=== PATIENT | female | born 1985 | race Caucasian/White ===

== ENCOUNTER 2020-04-28 15:37 | Outpatient (REF) | payer MEDICAID, SELFPAY ==
--- NOTE | 2020-04-28 16:52 | XR_ITS ---
EXAMINATION: XR HAND, LEFT XR HAND, RIGHT CLINICAL INFORMATION: Hand pain COMPARISON: 11/07/2018 TECHNIQUE: 3 views of each hand FINDINGS: Left hand: No fracture or dislocation. Alignment is anatomic. Joint spaces are maintained. The soft tissues are unremarkable. Right hand: No fracture or dislocation. Alignment is anatomic. Joint spaces are maintained. The soft tissues are unremarkable. XR/XR hand LT min 3V IMPRESSION: Normal appearance of both hands.
--- NOTE | 2020-04-28 16:52 | XR_ITS ---
EXAMINATION: XR HAND, LEFT XR HAND, RIGHT CLINICAL INFORMATION: Hand pain COMPARISON: 11/07/2018 TECHNIQUE: 3 views of each hand FINDINGS: Left hand: No fracture or dislocation. Alignment is anatomic. Joint spaces are maintained. The soft tissues are unremarkable. Right hand: No fracture or dislocation. Alignment is anatomic. Joint spaces are maintained. The soft tissues are unremarkable. XR/XR hand RT min 3V IMPRESSION: Normal appearance of both hands.
[2020-04-28 18:10] LABS: Glucose Urine UA NEG (NEG); Leukocyte Esterase Urine NEG (NEG); Nitrite Urine NEG (NEG); PH 5.5 (5.0-8.0); Specific Gravity - Urine >= 1.030 (1.005-1.025); Urine Blood TRACE (NEG); Urine Ketones NEG (NEG); Urine Protein NEG (NEG-TRACE)
[2020-04-28 18:16] LABS: Appearance Urine CLEAR; Color Urine YELLOW
[2020-04-28 18:25] LABS: Bacteria Urine 1+ /LPF; RBC Urine 0-2 /HPF (0); Squamous Epithelial Cell Urine 1+ /LPF; WBC Urine 0 /HPF (0-4)
[2020-04-28 18:37] LABS: C Reactive Protein 0.06 mg/dL (< or = 0.50)
[2020-04-28 18:52] LABS: Erythrocyte Sedimentation Rate 16 MM/HR (0-20)
[2020-05-02 19:09] LABS: Complement C3 154 mg/dL (83-193)
[2020-05-02 19:11] LABS: Anti DNA DS Antibody 1 IU/mL; SM/Ribonucleoprotein Ab <1.0 NEG AI (<1.0 NEG); Smith Protein <1.0 NEG AI (<1.0 NEG)
== END 2020-04-28 15:38 | disposition home or self-care (01) ==
LOC: HO.LAB 15:37
PROVIDERS: PCP Student in an Organized Health Care Education/Training Program; Referring Provider Student in an Organized Health Care Education/Training Program; Visit Provider Student in an Organized Health Care Education/Training Program
DX: M79.641 Pain in right hand (principal); M79.642 Pain in left hand; R76.8 Other specified abnormal immunological findings in serum
CPT/HCPCS: 36415; 73130; 81001; 85652; 86140; 86160; 86225; 86235; 99212

== ENCOUNTER → 2020-05-04 15:23 | Outpatient (BNVA) | payer MEDICAID, SELFPAY | PROVIDERS: PCP Student in an Organized Health Care Education/Training Program; Referring Provider Student in an Organized Health Care Education/Training Program; Visit Provider Nurse Practitioner | DX: Z76.89 Persons encountering health services in other specified circumstances (principal) ==

== ENCOUNTER → 2020-06-03 14:05 | Outpatient (BNVA) | payer MEDICAID, SELFPAY | PROVIDERS: PCP Student in an Organized Health Care Education/Training Program; Referring Provider Student in an Organized Health Care Education/Training Program; Visit Provider Student in an Organized Health Care Education/Training Program | DX: M79.641 Pain in right hand (principal); M79.642 Pain in left hand; R76.8 Other specified abnormal immunological findings in serum | CPT/HCPCS: 99212 ==

== ENCOUNTER → 2020-06-08 14:28 | Outpatient (BNVA) | payer MEDICAID, SELFPAY | PROVIDERS: PCP Student in an Organized Health Care Education/Training Program; Visit Provider Nurse Practitioner Family | DX: G58.8 Other specified mononeuropathies (principal) | CPT/HCPCS: 99212 ==

== ENCOUNTER 2020-06-15 14:20 | Outpatient (REF) | payer MEDICAID, SELFPAY | END 2020-06-15 14:21 | disposition home or self-care (01) | LOC: HO.LAB 14:20 | PROVIDERS: Visit Provider Internal Medicine | DX: Z20.828 Contact with and (suspected) exposure to other viral communicable diseases (principal) | CPT/HCPCS: C9803; U0003 ==

== ENCOUNTER → 2020-07-15 16:00 | Outpatient (BNVA) | payer MEDICAID, SELFPAY | PROVIDERS: PCP Student in an Organized Health Care Education/Training Program; Visit Provider Nurse Practitioner Family | DX: M79.18 Myalgia, other site (principal); G58.8 Other specified mononeuropathies | CPT/HCPCS: 99212 ==

== ENCOUNTER → 2020-07-20 08:04 | Outpatient (BNVA) | payer MEDICAID, SELFPAY | PROVIDERS: PCP Student in an Organized Health Care Education/Training Program; Visit Provider Nurse Practitioner Family | DX: M79.18 Myalgia, other site (principal); G58.8 Other specified mononeuropathies | CPT/HCPCS: 20552; 99212; J3300 ==

== ENCOUNTER → 2020-08-09 14:28 | Outpatient (BNVA) | payer MEDICAID, SELFPAY | PROVIDERS: PCP Student in an Organized Health Care Education/Training Program; Visit Provider Advanced Practice Midwife ==

== ENCOUNTER 2020-08-29 14:50 | Outpatient (REF) | payer MEDICAID, SELFPAY ==
[2020-08-30 09:00] LABS: CT PCR NOT DETECTED (Not Detect.); NG PCR NOT DETECTED (Not Detect.)
[2020-08-30 09:05] LABS: BV Int Neg Control Negative (Negative); BV Int Pos Control Positive (Positive)
== END 2020-08-29 14:51 | disposition home or self-care (01) ==
LOC: HO.LAB 14:50
PROVIDERS: PCP Student in an Organized Health Care Education/Training Program; Visit Provider Advanced Practice Midwife
DX: N94.10 Unspecified dyspareunia (principal); N89.8 Other specified noninflammatory disorders of vagina; N92.0 Excessive and frequent menstruation with regular cycle; R30.0 Dysuria
CPT/HCPCS: 81025; 87480; 87491; 87510; 87591; 87660; 99212

== ENCOUNTER → 2020-09-01 14:27 | Outpatient (BNVA) | payer MEDICAID, SELFPAY | PROVIDERS: PCP Student in an Organized Health Care Education/Training Program; Visit Provider Nurse Practitioner ==

== ENCOUNTER → 2020-09-19 14:29 | Outpatient (BNVA) | payer MEDICAID, SELFPAY | PROVIDERS: PCP Student in an Organized Health Care Education/Training Program; Visit Provider Nurse Practitioner Family | DX: M79.18 Myalgia, other site (principal); G58.8 Other specified mononeuropathies | CPT/HCPCS: 99212 ==

== ENCOUNTER → 2020-10-13 13:24 | Outpatient (BNVA) | payer MEDICAID, SELFPAY | PROVIDERS: PCP Student in an Organized Health Care Education/Training Program; Visit Provider Nurse Practitioner ==

== ENCOUNTER 2020-11-09 14:42 | Outpatient (REF) | payer MEDICAID, SELFPAY ==
[2020-11-09 16:25] LABS: Hematocrit 36.9 % (37-47); Mean Corpuscular HGB Conc 29.8 g/dl (31.0-35.0); Mean Corpuscular Hemoglobin 24.5 pg (27.0-33.0); Mean Corpuscular Volume 82.2 fL (80-98); Platelet Count 301 X10*3/uL (160-400); Red Blood Count 4.49 X10*6/uL (4.20-5.50); Red Cell Distribution Width 14.5 % (11.0-16.0); White Blood Count 13.4 X10*3/uL (4.8-10.8)
[2020-11-09 17:07] LABS: HCG Quantitative < 2 mIU/mL; TSH reflex Free T4 0.82 uIU/mL (0.32-4.0)
[2020-11-10 08:59] LABS: CT PCR NOT DETECTED (Not Detect.); NG PCR NOT DETECTED (Not Detect.)
== END 2020-11-09 14:43 | disposition home or self-care (01) ==
LOC: HO.LAB 14:42
PROVIDERS: PCP Student in an Organized Health Care Education/Training Program; Visit Provider Obstetrics & Gynecology
DX: Z01.419 Encounter for gynecological examination (general) (routine) without abnormal findings (principal); Z11.3 Encounter for screening for infections with a predominantly sexual mode of transmission; Z20.2 Contact with and (suspected) exposure to infections with a predominantly sexual mode of transmission; N76.0 Acute vaginitis; N92.1 Excessive and frequent menstruation with irregular cycle; N63.0 Unspecified lump in unspecified breast
CPT/HCPCS: 84443; 84702; 85027; 87491; 87591

== ENCOUNTER → 2020-11-17 08:44 | Outpatient (BNVA) | payer MEDICAID, SELFPAY | PROVIDERS: PCP Student in an Organized Health Care Education/Training Program; Visit Provider Nurse Practitioner ==

== ENCOUNTER 2020-11-21 15:32 | Outpatient (REF) | payer MEDICAID, SELFPAY ==
--- NOTE | ~2020-11-21 | US_ITS ---
EXAMINATION: US PELVIS ULTRASOUND CLINICAL INFORMATION: Abnormal bleeding. Age 35. LMP 10/23/2020. COMPARISON: Pelvic ultrasound 11/23/2019, CT abdomen and pelvis 05/29/2019. TECHNIQUE: Ultrasound of the pelvis is performed using both transabdominal and transvaginal transducers along with Doppler. Transvaginal imaging is performed due to inadequate visualization transabdominally. FINDINGS: Uterus: The uterus is retroverted and measures 7.0 x 4.8 x 5.1 cm. Volume 91 mL. The double wall endometrial thickness is 7 mm. The uterus is smooth in contour. The myometrial echogenicity appears uniform. There is no visible fibroid. Adnexa: Both ovaries are visualized. There is normal color flow to the adnexa. There is no ovarian torsion. There is no pelvic ascites or fluid collection. Right ovary measures 3.9 x 1.6 x 1.9 cm. 6.2 mL. Incidental dominant follicle present within the ovary measuring only 1.0 cm. Left ovary measures 2.1 x 1.8 x 2.1 cm. 4.1 mL. US/US pelvic and transvaginal IMPRESSION: 1. Uterus: Normal in size. Retroverted. Endometrial double wall thickness 7 mm. 2. Adnexa: Normal. No adnexal mass or ascites.
== END 2020-11-21 15:33 | disposition home or self-care (01) ==
LOC: HO.US 15:32
PROVIDERS: Visit Provider Obstetrics & Gynecology
DX: N93.9 Abnormal uterine and vaginal bleeding, unspecified (principal)
CPT/HCPCS: 76830; 76856

== ENCOUNTER 2020-11-22 13:08 | Outpatient (REF) | payer MEDICAID, SELFPAY ==
[2020-11-23 09:12] LABS: BV Int Neg Control Negative (Negative); BV Int Pos Control Positive (Positive)
== END 2020-11-22 13:09 | disposition home or self-care (01) ==
LOC: HO.LAB 13:08
PROVIDERS: PCP Student in an Organized Health Care Education/Training Program; Visit Provider Advanced Practice Midwife
DX: N89.8 Other specified noninflammatory disorders of vagina (principal); N93.9 Abnormal uterine and vaginal bleeding, unspecified
CPT/HCPCS: 87480; 87510; 87660

== ENCOUNTER 2020-11-23 13:21 | Outpatient (REF) | payer MEDICAID, SELFPAY ==
--- NOTE | ~2020-11-23 | MM_ITS ---
EXAMINATION: MM DIAGNOSTIC DIGITAL BREAST TOMOSYNTHESIS, BILATERAL US DIAGNOSTIC ULTRASOUND BREAST, LEFT CLINICAL INFORMATION: 35-year-old with focal palpable nodularity at routine clinical exam anterior 3:00 left breast. Prior history bilateral benign breast biopsies 2013 and 2011 (fibroadenoma; 2 on left and 1 on right). The lifetime risk of breast cancer based on the Tyrer-Cuzick Model is 8%. COMPARISON: Mammography: 11/18/2019, 03/19/2014, 11/22/2011; targeted left breast ultrasound 11/18/2019, 03/18/2014; ultrasound-guided left breast biopsy 11/22/2011. TECHNIQUE: Digital breast tomosynthesis is performed in both the craniocaudal and mediolateral oblique views along with computer-aided detection (CAD). Synthesized 2D images are generated from the tomosynthesis. Ultrasound left breast is targeted to the area of palpable concern periareolar outer left breast. Grayscale imaging and color Doppler are performed without and with harmonics. FINDINGS: The breasts are heterogeneously dense, which may obscure small masses (ACR BI-RADS breast composition Category c). Parenchymal pattern is similar to prior study. There is no interval mass or architectural abnormality or abnormal calcifications. No axillary adenopathy. No skin thickening. The right breast is stable nodule with overlying biopsy clip marker and some peripheral coarse calcification anterior upper outer quadrant. Left breast has ribbon shaped biopsy clip marker mid upper outer quadrant. There is a stable lobulated mass 2:30 o'clock periareolar position with overlying biopsy clip marker. The symptom marker overlies this site. Ultrasound left breast targeted to the clinically palpable finding 3:00 periareolar region demonstrates stable macrolobulated solid mass with visible peripheral clip marker from prior biopsy. The overall dimensions are 1.7 x 1.7 x 0.9 cm. This is unchanged from prior ultrasound measurements 1.8 x 1.7 x 0.9 cm (11/18/2019) and without significant from remote ultrasound 03/18/2014 measurements of 1.5 x 1.5 x 0.9 cm. Results are discussed with the patient at time of visit. MM/MM tomosynthesis diagnostic BI IMPRESSION: 1. There are no significant changes from prior study. No mammographic evidence of malignancy. 2. The clinically palpable finding left breast corresponds to previously biopsied and stable fibroadenoma. ASSESSMENT: BI-RADS 2: Benign RECOMMENDATION: Routine annual mammography screening, beginning age 40, or earlier as clinical risk factors warrant. This patient's information was entered into a reminder system with a target due date for their next mammogram.
== END 2020-11-23 13:22 | disposition home or self-care (01) ==
LOC: HO.MAMMO 13:21
PROVIDERS: Visit Provider Obstetrics & Gynecology
DX: N63.25 Unspecified lump in the left breast, overlapping quadrants (principal)
CPT/HCPCS: 76642; 77062; 77066

== ENCOUNTER → 2020-11-25 14:17 | Outpatient (BNVA) | payer MEDICAID, SELFPAY | PROVIDERS: PCP Student in an Organized Health Care Education/Training Program; Visit Provider Urology | DX: Z13.89 Encounter for screening for other disorder (principal) | CPT/HCPCS: 99212 ==

== ENCOUNTER → 2020-11-28 15:18 | Outpatient (BNVA) | payer MEDICAID, SELFPAY | PROVIDERS: PCP Student in an Organized Health Care Education/Training Program; Visit Provider Obstetrics & Gynecology ==

== ENCOUNTER 2020-11-30 07:07 | Outpatient (REF) | payer MEDICAID, SELFPAY ==
[2020-11-30 08:39] LABS: HIV AB/AG Nonreactive (Nonreactive); HIV Num 1 0.06 S/CO (0.00-0.99)
[2020-11-30 13:51] LABS: CT PCR NOT DETECTED (Not Detect.); NG PCR NOT DETECTED (Not Detect.)
== END 2020-11-30 07:08 | disposition home or self-care (01) ==
LOC: HO.LAB 07:07
PROVIDERS: PCP Student in an Organized Health Care Education/Training Program; Visit Provider Obstetrics & Gynecology
DX: Z11.4 Encounter for screening for human immunodeficiency virus [HIV] (principal); B37.3 Candidiasis of vulva and vagina; N92.1 Excessive and frequent menstruation with irregular cycle
CPT/HCPCS: 36415; 87389; 87491; 87591

== ENCOUNTER 2020-12-06 14:56 | Outpatient (REF) | payer MEDICAID, SELFPAY ==
[2020-12-06 16:15] LABS: Glucose Fasting 97 mg/dL (60-99)
[2020-12-06 16:56] LABS: Glucose Urine UA NEG (NEG); Leukocyte Esterase Urine NEG (NEG); Nitrite Urine NEG (NEG); Urine Blood NEG (NEG); Urine Ketones NEG (NEG); Urine Protein NEG (NEG-TRACE)
[2020-12-06 16:57] LABS: Appearance Urine CLEAR; Color Urine YELLOW
[2020-12-06 17:02] LABS: RBC Urine 0 /HPF (0); Squamous Epithelial Cell Urine 1+ /LPF; WBC Urine 0 /HPF (0-4)
== END 2020-12-06 14:57 | disposition home or self-care (01) ==
LOC: HO.LAB 14:56
PROVIDERS: Student in an Organized Health Care Education/Training Program; PCP Student in an Organized Health Care Education/Training Program; Visit Provider Obstetrics & Gynecology
DX: B37.3 Candidiasis of vulva and vagina (principal)
CPT/HCPCS: 36415; 81001; 82947

== ENCOUNTER 2021-01-05 12:33 | Outpatient (REF) | payer MEDICAID, SELFPAY ==
--- NOTE | ~2021-01-05 | US_ITS ---
EXAMINATION: US THYROID CLINICAL INFORMATION: Thyroid nodule. COMPARISON: Ultrasound soft tissue head/neck thyroid dated 01/11/2020 and 02/11/2019. TECHNIQUE: Linear transducer grayscale and color Doppler examination with attention to the region of the thyroid. FINDINGS: SIZE: Measurements of the thyroid lobes and nodules are given in sagittal, anteroposterior and transverse dimensions respectively. Right Thyroid Lobe: 5.1 x 1.3 x 1.8 cm, volume 6.3 mL. Previously 5.3 x 1.4 x 1.8 cm, volume 7.0 mL. Parenchyma: The gland echotexture is homogeneous. Thyroid vascularity is normal. Left Thyroid Lobe: 3.8 x 1.4 x 1.5 cm, volume 3.9 mL. Previously 4.1 x 1.4 x 1.3 cm, volume 3.9 mL. Parenchyma: The gland echotexture is homogeneous. Thyroid vascularity is normal. Isthmus: 0.3 cm in maximum AP dimension. Previously 0.5 cm. Estimated total number of nodules greater than or equal to 1 cm: 0. Drag Seiner nodules are described as follows: 1. Location: Right superior. Size: 0.61 x 0.34 x 0.61 cm, volume 0.07 mL. Previously: 0.52 x 0.42 x 0.49 cm, volume 0.06 mL. Nodule characteristics: Composition: Mixed cystic and solid (1). Echogenicity: Hypoechoic (2). Shape: Not taller than wide (0). Margins: Smooth (0). Echogenic Foci: None (0). ACR TI-RADS total points: 3 ACR TI-RADS category: 3 Significant change in size (>/= 20% in 2 dimensions and minimal increase of 2 mm or 50% or greater increase in volume): No Change in features: No Change in ACR TI-RADS risk category: Not applicable 2. Location: Right inferior. Size: 0.49 x 0.51 x 0.29 cm, volume 0.04 mL. Previously: 0.42 x 0.28 x 0.37 cm, volume 0.02 mL. Nodule characteristics: Composition: Solid/almost completely solid (2). Echogenicity: Hypoechoic (2). Shape: Not taller than wide (0). Margins: Smooth (0). Echogenic Foci: None (0). ACR TI-RADS total points: 4 ACR TI-RADS category: 4 Significant change in size (>/= 20% in 2 dimensions and minimal increase of 2 mm or 50% or greater increase in volume): No Change in features: No Change in ACR TI-RADS risk category: Not applicable 3. Location: Right mid. Size: 0.32 x 0.24 x 0.38 cm, volume 0.2 mL. Previously: Not seen on the previous study. Nodule characteristics: Composition: Solid (2). Echogenicity: Hyperechoic (1). Shape: Not taller than wide (0). Margins: Smooth (0). Echogenic Foci: None (0). ACR TI-RADS total points: 3 ACR TI-RADS category: 3 4. Location: Left superior. Size: 0.42 x 0.45 x 0.5 cm, volume 0.05 mL. Previously: 0.38 x 0.35 x 0.35 cm, volume 0.02 mL. Nodule characteristics: Composition: Solid/almost completely solid (2). Echogenicity: Isoechoic (1). Shape: Taller than wide (3). Margins: Ill-defined (0). Echogenic Foci: None (0). ACR TI-RADS total points: 6 ACR TI-RADS category: 4 Significant change in size (>/= 20% in 2 dimensions and minimal increase of 2 mm or 50% or greater increase in volume): No Change in features: No Change in ACR TI-RADS risk category: Not applicable NODES: No lymphadenopathy is seen in the tissue surrounding the thyroid gland. US/US thyroid IMPRESSION: Thyroid nodules as described above, none larger than a centimeter. No follow up should be needed. ACR TI-RADS RECOMMENDATION REFERENCE: Ultrasound-guided fine-needle aspiration, followup ultrasound, no further follow up. * TR1 (0 point) and TR 2 (2 points): No FNA or follow up * TR3 (3 points): FNA if more than or equal to 2.5 cm in maximum dimension, followup ultrasound in 1, 3 and 5 years if 1.5 to 2.4 cm in maximum dimension. * TR4 (4-6 points): FNA if more than or equal to 1.5 cm in maximum dimension, followup ultrasound in 1, 2, 3 and 5 years if 1 to 1.4 cm in maximum dimension. * TR5 (more than or equal to 7 points): FNA if more than or equal to 1 cm in maximum dimension, followup ultrasound every year for 5 years if 0.5 to 0.9 cm in maximum dimension. * TR3, TR4 or TR5 nodules that are below the size threshold for follow up receive no follow up.
== END 2021-01-05 12:34 | disposition home or self-care (01) ==
LOC: HO.US 12:33
PROVIDERS: PCP Student in an Organized Health Care Education/Training Program; Visit Provider Internal Medicine
DX: E04.1 Nontoxic single thyroid nodule (principal)
CPT/HCPCS: 76536

== ENCOUNTER → 2021-01-13 15:43 | Outpatient (BNVA) | payer MEDICAID, SELFPAY | PROVIDERS: PCP Student in an Organized Health Care Education/Training Program; Referring Provider Student in an Organized Health Care Education/Training Program; Visit Provider Nurse Practitioner | DX: R14.0 Abdominal distension (gaseous) (principal); K62.5 Hemorrhage of anus and rectum; K21.9 Gastro-esophageal reflux disease without esophagitis; K31.84 Gastroparesis | CPT/HCPCS: 99202 ==

== ENCOUNTER 2021-01-16 16:50 | Outpatient (REF) | payer MEDICAID, SELFPAY ==
[2021-01-16 17:38] LABS: Hematocrit 37.6 % (37-47); Hemoglobin 11.2 g/dl (12.0-16.0); Mean Corpuscular HGB Conc 29.8 g/dl (31.0-35.0); Mean Corpuscular Hemoglobin 23.3 pg (27.0-33.0); Mean Corpuscular Volume 78.3 fL (80-98); Mean Platelet Volume 11.7 fL (9.4-12.3); Platelet Count 332 X10*3/uL (160-400); Red Cell Distribution Width 14.6 % (11.0-16.0); White Blood Count 10.6 X10*3/uL (4.8-10.8)
[2021-01-16 17:59] LABS: Alanine Aminotransferase 13 U/L (0-31); Albumin Level 4.6 g/dL (3.5-5.0); Alkaline Phosphatase 64 U/L (39-117); Anion Gap 13 (12-20); Aspartate Amino Transferase 14 U/L (5-31); Bilirubin Total 0.3 mg/dL (0.0-1.0); Blood Urea Nitrogen 7 mg/dL (9-16); Calcium 9.7 mg/dL (8.4-10.2); Carbon Dioxide 23 mmol/L (22-29); Chloride 105 mmol/L (96-108); Estimated Glomerular Filt Rate > 60; Glucose Random 105 mg/dL (60-115); Potassium 4.3 mmol/L (3.3-5.1); Sodium 137 mmol/L (135-145); Total Protein 7.8 g/dL (6.5-8.0)
== END 2021-01-16 16:51 | disposition home or self-care (01) ==
LOC: HO.LAB 16:50
PROVIDERS: PCP Student in an Organized Health Care Education/Training Program; Visit Provider Nurse Practitioner Family
DX: Z12.11 Encounter for screening for malignant neoplasm of colon (principal); K21.9 Gastro-esophageal reflux disease without esophagitis
CPT/HCPCS: 36415; 80053; 85027; 87338

== ENCOUNTER 2021-02-02 11:28 | Outpatient (REF) | payer MEDICAID, SELFPAY ==
[2021-02-02 16:13] LABS: Free T4 (Free Thyroxine) 0.96 ng/dL (0.71-1.85); Thyroid Stimulating Hormone 0.96 uIU/mL (0.32-4.0); Vitamin D 25-OH Total 13.5 ng/mL (>30)
== END 2021-02-02 11:29 | disposition home or self-care (01) ==
LOC: HO.LAB 11:28
PROVIDERS: PCP Student in an Organized Health Care Education/Training Program; Visit Provider Internal Medicine
DX: E66.9 Obesity, unspecified (principal); E55.9 Vitamin D deficiency, unspecified; Z86.39 Personal history of other endocrine, nutritional and metabolic disease; Z79.899 Other long term (current) drug therapy
CPT/HCPCS: 36415; 82306; 84439; 84443

== ENCOUNTER → 2021-02-28 13:20 | Outpatient (BNVA) | payer MEDICAID, SELFPAY | PROVIDERS: Visit Provider Obstetrics & Gynecology ==

== ENCOUNTER → 2021-04-17 16:29 | Outpatient (BNVA) | payer MEDICAID, SELFPAY | PROVIDERS: Visit Provider Nurse Practitioner ==

== ENCOUNTER 2021-05-10 13:40 | Outpatient (REF) | payer MEDICAID, SELFPAY ==
[2021-05-10 13:54] LABS: MANUAL DIFF FLAG NO
[2021-05-10 14:32] LABS: Basophils Percent Auto 0.3 % (0-2); Eosinophils Absolute Auto 0.2 X10*3/uL (0.0-0.4); Eosinophils Percent Auto 1.4 % (0-4); Hematocrit 37.9 % (37.0-47.0); Hemoglobin 11.4 g/dl (12.0-16.0); Imm Gran Abs Auto 0.04 X10*3/uL (0.00-0.03); Imm Gran Pct Auto 0.4 % (0.0-0.4); Lymphocytes Absolute Auto 1.9 X10*3/uL (1.2-4.9); Lymphocytes Percent Auto 18.1 % (20-40); Mean Corpuscular HGB Conc 30.1 g/dl (31.0-35.0); Mean Corpuscular Volume 79.8 fL (80.0-98.0); Mean Platelet Volume 11.9 fL (9.4-12.3); Monocytes Absolute Auto 0.6 X10*3/uL (0.1-1.2); Monocytes Percent Auto 5.7 % (2-11); Neutrophils Absolute Auto 7.7 x10*3/uL (2.0-8.3); Neutrophils Percent Auto 74.1 % (45-73); Platelet Count 329 X10*3/uL (160-400); Red Blood Count 4.75 X10*6/uL (4.20-5.50); Red Cell Distribution Width 16.3 % (11.0-16.0); White Blood Count 10.4 X10*3/uL (4.8-10.8)
[2021-05-10 15:08] LABS: Alanine Aminotransferase 15 U/L (0-31); Albumin Level 4.3 g/dL (3.5-5.0); Alkaline Phosphatase 67 U/L (39-117); Anion Gap 13 (12-20); Aspartate Amino Transferase 14 U/L (5-31); Bilirubin Total < 0.2 mg/dL (0.0-1.0); Blood Urea Nitrogen 6 mg/dL (9-16); Calcium 9.5 mg/dL (8.4-10.2); Carbon Dioxide 25 mmol/L (22-29); Chloride 106 mmol/L (96-108); Estimated Glomerular Filt Rate > 60; Glucose Random 99 mg/dL (60-115); Potassium 4.3 mmol/L (3.3-5.1); Sodium 140 mmol/L (135-145); Total Protein 7.6 g/dL (6.5-8.0)
[2021-05-10 15:28] LABS: Thyroid Stimulating Hormone 0.75 uIU/mL (0.32-4.0)
== END 2021-05-10 13:41 | disposition home or self-care (01) ==
LOC: HO.LAB 13:40
PROVIDERS: PCP Student in an Organized Health Care Education/Training Program; Visit Provider Psychiatry & Neurology Neurology
DX: D64.9 Anemia, unspecified (principal); M79.7 Fibromyalgia
CPT/HCPCS: 36415; 80053; 84443; 85025

== ENCOUNTER 2021-05-15 10:32 | Outpatient (REF) | payer MEDICAID, SELFPAY ==
--- NOTE | ~2021-05-15 | US_ITS ---
EXAMINATION: US RETROPERITONEAL LIMITED (RENAL ONLY) CLINICAL INFORMATION: Calculus of kidney. COMPARISON: Renal ultrasound 11/16/2019 and 10/30/2018. CT abdomen and pelvis 05/29/2019. TECHNIQUE: Real-time imaging of the kidneys. FINDINGS: RIGHT KIDNEY: 11.1 x 4.6 x 5.1 cm (SAG x AP x TRV). The kidney is normal in size, contour, and echogenicity. Renal cortical thickness is normal. No calculi or focal parenchymal lesions. No hydronephrosis. LEFT KIDNEY: 11.0 x 5.2 x 3.9 cm (SAG x AP x TRV). The kidney is normal in size, contour, and echogenicity. Renal cortical thickness is normal. No calculi or focal parenchymal lesions. No hydronephrosis. US/US renal BI IMPRESSION: Unremarkable renal ultrasound.
== END 2021-05-15 10:33 | disposition home or self-care (01) ==
LOC: HO.US 10:32
PROVIDERS: PCP Student in an Organized Health Care Education/Training Program; Visit Provider Urology
DX: N20.0 Calculus of kidney (principal)
CPT/HCPCS: 76775

== ENCOUNTER 2021-05-22 14:03 | Outpatient (REF) | payer MEDICAID, SELFPAY ==
[2021-05-23 05:33] LABS: CT PCR NOT DETECTED (Not Detect.); NG PCR NOT DETECTED (Not Detect.)
[2021-05-23 10:27] LABS: BV Int Neg Control Negative (Negative); BV Int Pos Control Positive (Positive)
== END 2021-05-22 14:04 | disposition home or self-care (01) ==
LOC: HO.LAB 14:03
PROVIDERS: PCP Student in an Organized Health Care Education/Training Program; Visit Provider Obstetrics & Gynecology
DX: B37.3 Candidiasis of vulva and vagina (principal)
CPT/HCPCS: 87480; 87491; 87510; 87591; 87660; 99212

== ENCOUNTER → 2021-06-05 14:34 | Outpatient (BNVA) | payer MEDICAID, SELFPAY | PROVIDERS: Visit Provider Nurse Practitioner Family | DX: K58.1 Irritable bowel syndrome with constipation (principal); K21.9 Gastro-esophageal reflux disease without esophagitis; R14.0 Abdominal distension (gaseous) | CPT/HCPCS: 99212 ==

== ENCOUNTER → 2021-06-12 08:54 | Outpatient (BNVA) | payer MEDICAID, SELFPAY | PROVIDERS: PCP Student in an Organized Health Care Education/Training Program ==

== ENCOUNTER 2021-06-14 15:11 | Outpatient (REF) | payer MEDICAID, SELFPAY ==
--- NOTE | ~2021-06-14 | CT_ITS ---
EXAMINATION: CT HEAD WITHOUT CONTRAST CLINICAL INFORMATION: Syncope COMPARISON: Previous head CT May 2016 TECHNIQUE: Contiguous axial imaging was performed from the skull base to vertex without intravenous administration of contrast. This CT examination was performed using dose optimization techniques as appropriate, variously including the following: *Automated exposure control *Adjustment of mA and/or kV according to patient size (this includes techniques or standardized protocols for targeted exams where dose is matched to indication/reason for exam; i.e. extremities or head) *Use of iterative reconstruction technique DLP: 676 mGy-cm FINDINGS: There is no evidence of acute intracranial hemorrhage or territorial infarction. No abnormal mass effect or midline shift is seen. Coronel to white matter differentiation is well preserved. No extra-axial fluid collections are identified. The ventricles are normal in size. There is no abnormal attenuation within the brain parenchyma. The osseous structures and soft tissues are normal. The mastoid air cells and visualized portions of the paranasal sinuses are well aerated. CT/CT head/brain wo con IMPRESSION: No acute intracranial pathology.
== END 2021-06-14 15:12 | disposition home or self-care (01) ==
LOC: HO.CT 15:11
PROVIDERS: PCP Student in an Organized Health Care Education/Training Program; Visit Provider Psychiatry & Neurology Neurology
DX: R55 Syncope and collapse (principal)
CPT/HCPCS: 70450

== ENCOUNTER → 2021-06-26 13:00 | Outpatient (REF) | payer MEDICAID, SELFPAY ==
--- NOTE | 2021-06-26 13:04 | ECG_ITS ---
Hook-up date: 2021-06-26 13:22:00 Duration: 24:47:00 Test Indications: SYNCOPE Medications: [id number] QRS complexes 27 Ventricular ectopics which represent <1 % of total QRS comp. 273 Supraventricular ectopics which represent <1 % of total QRS comp. * Paced QRS complexs which represent % of total QRS comp. VENTRICULAR ECTOPY 27 Isolated 0 Bigeminal Cycles 0 Couplets 0 Runs 0 Beats in Runs * Beats LONGEST at * BPM at :: -- * Beats FASTEST at * BPM at :: -- SUPRAVENTRICULAR ECTOPY 197 Isolated 14 Couplets 8 Runs 48 Beats in Runs 20 Beats LONGEST at 99 BPM at 18:30:44 2021-06-26 3 Beats FASTEST at 170 BPM at 16:06:23 2021-06-26 HEART RATES 20 MIN at 16:05:46 2021-06-26 87 AVG 163 MAX at 09:29:42 2021-06-27 LONGEST RR 9.2960 secs at 16:05:42 2021-06-26 S-T LEVELS Channel 1 - 128 mm at 13:22:00 2021-06-26 - 128 mm at 13:22:00 2021-06-26 Channel 2 - 128 mm at 13:22:00 2021-06-26 - 128 mm at 13:22:00 2021-06-26 Channel 3 - 128 mm at 03:24:11 -- - 128 mm at 03:24:11 Referred By: Arturo Ramos Overread By:
== END ==
LOC: HO.CARD 13:00
PROVIDERS: PCP Student in an Organized Health Care Education/Training Program; Visit Provider Psychiatry & Neurology Neurology
DX: R55 Syncope and collapse (principal)
CPT/HCPCS: 93225; 93226

== ENCOUNTER → 2021-07-13 13:42 | Outpatient (BNV) | payer MEDICAID, SELFPAY | PROVIDERS: PCP Student in an Organized Health Care Education/Training Program; Visit Provider Internal Medicine Medical Oncology | DX: R23.3 Spontaneous ecchymoses (principal) | CPT/HCPCS: 99213 ==

== ENCOUNTER → 2021-08-02 07:47 | Outpatient (REF) | payer MEDICAID, SELFPAY ==
--- NOTE | ~2021-08-02 | NM_ITS ---
EXAMINATION: RADIONUCLIDE SOLID FOOD GASTRIC EMPTYING 4-HOUR STUDY CLINICAL INFORMATION: Gastritis, unspecified without bleeding. COMPARISON: A previous gastric emptying study dated 01/23/2011 is available, but this was performed with a different technique with imaging obtained only up to 2 hours post ingestion and is not directly comparable with the current study performed for a longer time interval of 4 hours. TECHNIQUE: A standard meal consisting of 4 oz of Egg Beaters brand equivalent tagged was 1.0 mCi Tc-99m Sulfur Colloid, 8 oz water and 2 slices of toast with jelly was administered orally to the patient. Images were obtained using a dual head gamma camera in the anterior and posterior projections over of the stomach immediately post ingestion and at hourly intervals up to 4 hours post ingestion. The anterior and posterior counts at each time interval were averaged using the geometric mean and expressed as percentage of the immediate post ingestion counts. FINDINGS: There is good visualization of activity in the stomach immediately post ingestion. As the study progresses, there is good clearance of activity from the stomach and visualization of progressively increasing small bowel activity. By the end of the study, there is almost no retention noted in the stomach. Retention in the stomach at each time interval was: 1 hour 83% (normal 37%-90%) 2 hours 54% (normal 30%-60%) 3 hours 14% 4 hours 0% (normal 0%-10%) NM/NM gastric emptying study IMPRESSION: Normal 4-hour solid food gastric emptying study.
== END ==
LOC: HO.NUCMED 07:47
PROVIDERS: PCP Student in an Organized Health Care Education/Training Program; Visit Provider Nurse Practitioner Family
DX: K29.70 Gastritis, unspecified, without bleeding (principal)
CPT/HCPCS: 78264; A9541

== ENCOUNTER 2021-08-08 14:55 | Outpatient (REF) | payer MEDICAID, SELFPAY ==
[2021-08-08 16:36] LABS: Free T4 (Free Thyroxine) 1.08 ng/dL (0.71-1.85); Vitamin D 25-OH Total 23.3 ng/mL (>30)
== END 2021-08-08 14:56 | disposition home or self-care (01) ==
LOC: HO.LAB 14:55
PROVIDERS: PCP Student in an Organized Health Care Education/Training Program; Visit Provider Internal Medicine
DX: E55.9 Vitamin D deficiency, unspecified (principal); Z86.39 Personal history of other endocrine, nutritional and metabolic disease
CPT/HCPCS: 36415; 82306; 84439; 84443

== ENCOUNTER → 2021-08-10 13:29 | Outpatient (BNVA) | payer MEDICAID, SELFPAY | PROVIDERS: PCP Student in an Organized Health Care Education/Training Program; Visit Provider Internal Medicine | DX: E55.9 Vitamin D deficiency, unspecified (principal); Z86.39 Personal history of other endocrine, nutritional and metabolic disease | CPT/HCPCS: 99212 ==

== ENCOUNTER → 2021-08-18 14:34 | Outpatient (BNVA) | payer MEDICAID, SELFPAY | PROVIDERS: PCP Student in an Organized Health Care Education/Training Program; Visit Provider Nurse Practitioner Family | DX: M79.18 Myalgia, other site (principal); M79.2 Neuralgia and neuritis, unspecified | CPT/HCPCS: 99212 ==

== ENCOUNTER 2021-08-20 13:48 | Emergency (ER) | payer MEDICAID, SELFPAY ==
[2021-08-20 14:44] VITALS: BP 159/81; PULSE 121; RESP 20; TEMP 36.4; O2SAT 100; BMI 32.9
[2021-08-20 20:08] VITALS: BP 121/70; PULSE 100; RESP 18; TEMP 36.8; O2SAT 100
--- NOTE | 2021-08-20 20:11 | PC.NURSE ---
patient able to walk to room from triage with no issues . complains of 10/10 pain in face and neck after dental work preformed . no edema noted . painful to touch on assessment . She reports no relief from medication prescribed by dentist.
--- NOTE | 2021-08-20 20:58 | ED_ITS ---
HPI - Dental/Oral General Chief complaint: Dental/Oral Stated complaint: R SIDE FACIAL PAIN Time Seen by Provider: 08/20/21 19:51 Source: patient Mode of arrival: ambulatory Limitations: no limitations History of Present Illness HPI Narrative: Patient has been experiencing dental pain since November of 2020. She has had multiple procedures including fillings, placement of crowns, has been on multiple courses of antibiotics for infection. Reports that she was most recently told that she may have a fractured root, had a filling on 04/09/2022 and was prescribed another course of antibiotics. She has been taking Tylenol and ibuprofen without relief. She states that she is having pain that radiates from her upper jaw to the whole right side of her face and beneath the jaw. It is sensitive to hot and cold. She denies fevers, chills, neck stiffness, chest pain, palpitations, shortness of breath, difficulty breathing. MD Complaint: tooth pain Teeth map: 1. Related Data Home Medications Medication Instructions Recorded Confirmed lorazepam 1 mg tablet 1 mg PO BEDTIME PRN 03/29/20 08/18/21 cetirizine 10 mg tablet 10 mg PO DAILY 02/02/21 08/18/21 azelastine 137 mcg (0.1 %) nasal 1 spray INTRANASAL DAILY 06/12/21 08/18/21 spray aerosol Previous Rx's Medication Instructions Recorded metoclopramide HCl 5 mg tablet 5 mg PO .TIDAC #90 tab 05/04/20 (Reglan) lidocaine 5 % topical patch 1 patch TOPICAL DAILY 30 Days #30 09/20/20 ea progesterone micronized 200 mg 200 mg PO BEDTIME 10 Days #30 cap 02/28/21 capsule (Prometrium) dexlansoprazole 60 mg 60 mg PO DAILY 30 Days #30 cap 05/09/21 capsule,biphase delayed release (Dexilant) famotidine 40 mg tablet 40 mg PO BEDTIME #30 tab 06/05/21 simethicone 180 mg capsule 180 mg PO BID 30 Days #60 cap 06/05/21 methocarbamol 500 mg tablet 500 mg PO TID #90 tab 08/18/21 pregabalin 75 mg capsule (Lyrica) 75 mg PO BEDTIME 30 Days #30 cap 08/18/21 oxycodone-acetaminophen 5 mg-325 1 tab PO Q8H PRN #7 tab 08/20/21 mg tablet (Percocet) Allergies Allergy/AdvReac Type Severity Reaction Status Date / Time Iodinated Contrast Media Allergy Intermediate SHORTNESS Verified 08/20/21 14:54 [IV DYE, IODINE CONTAINING OF BREATH CONTRAST ] citalopram [From CELEXA] Allergy Unknown VOMITTING Verified 08/20/21 14:54 duloxetine [Cymbalta] Allergy Unknown unknown Verified 08/20/21 14:54 morphine [MORPHINE] Allergy Unknown PALPITATIONS-PT Verified 08/20/21 14:54 PREFERS NOT TO TAKE tramadol [TRAMADOL] Allergy Unknown VOMITING Verified 08/20/21 14:54 Review of Systems Review of Systems: Constitutional : No Fever, No Chills, No changes in PO intake, No difficulty speaking,? she has had recent dental procedure, she has heat and cold intolerance while eating, no recent face trauma, ENT/Mouth : No swallowing difficulty, no change in voice, positive jaw pain, No facial swelling, no drooling, no trismus, no bleeding, no throat swelling, no lacerations, no tongue swelling, gum swelling, Eyes: No Eye Pain, No periorbital Swelling Cardiovascular : No Chest Pain, No SOB Respiratory : No Cough, No Sputum, No Wheezing, No Dyspnea Gastrointestinal : No Nausea, No Vomiting, No Diarrhea Genitourinary : No Dysuria Musculoskeletal : No Myalgias Skin : No rash, no facial swelling or redness, Neuro : No Weakness, No Numbness, No Headache PMFSH Past Medical History Attestation statement: The following information was validated with the patient. Source: old records reviewed Medical History NURIA positive Fibroadenoma Fibromyalgia History of thyroiditis Hx of lipoma Lipoma Obesity Vitamin D deficiency Surgical History History of esophagogastroduodenoscopy (EGD) History of wisdom tooth extraction Family History Family History Father Diabetes Asthma Heart attack Maternal Grandmother Diabetes HTN (hypertension) Parkinson disease Mother Diabetes Family history of diabetes mellitus Sister Asthma Maternal Grandfather Parkinson disease Social History Social History Household Members: Children Alcohol intake: never Patient Tobacco Use Status: Never used Tobacco Second Hand Smoke Exposure: Yes (Neighbors) Advance Directives: No Advance Directives Information Provided: Yes Patient : No Current occupational status: disabled Sexual orientation: Straight/Heterosexual Gender identity: Female Physical Exam Vital Signs: Vital Signs: Last Vital Signs Temp 98.3 F 08/20/21 20:08 Pulse 100 08/20/21 20:08 Resp 18 08/20/21 20:08 BP 121/70 08/20/21 20:08 Pulse Ox 100 08/20/21 20:08 BMI result Body Mass Index 32.9 Vital signs have been reviewed as normal and appeared to be correct. Blood pressure normal.? Heart rate normal.? Respiration rate normal. Temperature normal.? Oxygen saturation normal. Appearance: Alert. Oriented X3. No acute distress. Head: Normal external exam. Normocephalic. Atraumatic. Eyes: PERRLA. EOMI. Conjunctiva and sclera normal. Eyelids normal. ENT: EAC normal. TM's Normal. Pharynx normal. Uvula midline. Moist mucous membranes.? ?No trismus noted.? No drooling noted.? No muffled voice noted. Fl oor of mouth is soft. Tenderness with palpation of right upper tooth; 2nd without surrounding erythema, or visible abscess. Dentition:? Patient with multiple dental caries.? Gingival within normal limits.? No fluctuance.? Not consistent with peritonsillar abscess.? No salivary duct obstruction noted. Neck: Normal inspection. Neck supple. FROM. No adenopathy. Thyroid Normal. No meningeal signs. No neck mass noted.? Trachea midline. CVS: Normal heart rate and rhythm. Heart sound normal. No murmurs noted. Pulses normal throughout. Respiratory: No respiratory distress. Painless inspiration. Breath sounds normal. No wheezes/rales/rhonchi noted. Chest nontender. ?No accessory muscle usage noted or decreased air movement noted. Back:? Full range of motion noted. Skin: Skin warm and dry.? Normal skin color.? Normal skin turgor. No rashes/lesions/lacerations noted. Extremities: Extremities exhibit normal range of motion.? Extremities nontender. Neuro: Oriented X 3.? No motor deficit.? No sensory deficit.? Reflexes normal. Course Course Course Narrative: Patient is a 36-year-old female being evaluated for dental pain she has been experiencing since November 2020. She is currently being treated with antibiotics by her dentist, has recently had a filling and was told that she may have a fractured root. Patient physical exam not consistent with peritonsillar abscess, Chivo's angina. Patient drove herself to the emergency department and therefore will avoid narcotics while here. Advised patient she should continue taking a course of antibiotics as prescribed by her dentist. In addition, she was given a short course of her SI, she reports that the pain is unbearable and she is not able to sleep at night. Patient reports that she has an allergy to morphine and tramadol that she has taken Percocet in the past without any anaphylaxis type reaction, she does report that it makes her tired. Discussed use of the medications caution as it may be an adaptive king and she should not drive or operate machinery while taking the medication. Discussed with her reasons to return to the emergency department including fevers, chills, severe worsening pain, facial swelling in a sore throat, chest pain, palpitations, di fficulty breathing. Discharge Plan Discharge Clinical Impression: Chronic dental pain Patient Disposition: Home, Self-Care Additional Instructions: Please continue taking your antibiotics as prescribed by your dentist, contact their office tomorrow to schedule follow-up appointment. He had been given a short prescription for pain medication, Percocet, this medication can be addicting and should only be used for severe pain. Please do not drive or operate machinery for 8 hours after taking this medication. feel free to return to emergency department for any new worsening symptoms or concerns Prescriptions: New oxycodone-acetaminophen [Percocet] 5-325 mg tablet 1 tab PO Q8H PRN (Reason: pain) Qty: 7 0RF No Action Dexilant 60 mg capsule,biphase delayed releas 60 mg PO DAILY 30 Days Qty: 30 2RF cetirizine 10 mg tablet 10 mg PO DAILY 0RF lidocaine 5 % adhesive patch,medicated 1 patch topical DAILY 30 Days Qty: 30 3RF Rx Instructions: leave on most painful area for up to 12 hrs metoclopramide HCl [Reglan] 5 mg tablet 5 mg PO .TIDAC Qty: 90 6RF lorazepam 1 mg tablet 1 mg PO BEDTIME PRN (Reason: Anxiety) 0RF progesterone micronized [Prometrium] 200 mg capsule 200 mg PO BEDTIME 10 Days Qty: 30 9RF Rx Instructions: Take the pill 1 tablet a day cyclically every month from day 15-24 day 1 bein g the 1st day of next menstrual cycle famotidine 40 mg tablet 40 mg PO BEDTIME Qty: 30 3RF simethicone 180 mg capsule 180 mg PO BID 30 Days Qty: 60 3RF Rx Instructions: after meals azelastine 137 mcg (0.1 %) aerosol,spray 1 spray intranasal DAILY 0RF pregabalin [Lyrica] 75 mg capsule 75 mg PO BEDTIME 30 Days Qty: 30 3RF methocarbamol 500 mg tablet 500 mg PO TID Qty: 90 0RF
== END 2021-08-20 21:28 | disposition home or self-care (01) ==
PROVIDERS: Emergency Provider Internal Medicine; PCP Student in an Organized Health Care Education/Training Program
DX: K08.89 Other specified disorders of teeth and supporting structures (principal); Z79.899 Other long term (current) drug therapy
CPT/HCPCS: 99283

== ENCOUNTER → 2021-11-20 14:46 | Outpatient (BNVA) | payer MEDICAID, SELFPAY | PROVIDERS: PCP Student in an Organized Health Care Education/Training Program; Visit Provider Internal Medicine Cardiovascular Disease | DX: R55 Syncope and collapse (principal); R07.9 Chest pain, unspecified | CPT/HCPCS: 93005; 99202 ==

== ENCOUNTER → 2021-12-19 09:44 | Outpatient (REF) | payer MEDICAID, SELFPAY ==
--- NOTE | 2021-12-19 09:48 | CA_ITS ---
Acquisition Time: 2021-12-19 10:12:06 Total Exercise Time: 00:05:27 Test Indications: CHEST PAIN Medications: SEE H Protocol: MALOU Max HR: 179 BPM 96% of Pred: 186 BPM Max BP: 150/070 mmHG Max Work Load: 7.0 METS Exercise stress test with exercise 5 min 27 sec of Malou protocol, achieving 96% MPHR with fatigue and moderate shortness of breath, no chest discomfort, without arrythmia, with normotensive response to exercise, with EKG changes meeting criteria for ischemia: inferiolateral horizontal ST depressions with gradual improvement in recovery. Her breathing normalized with rest. Test reviewed with Dr Estrella. Will order an exercise nulcear stress test for further evaluation. Referred By: Carrillo Estrella Overread By: KAYLYNN UREÑA
[2021-12-19 14:43] LABS: Appearance Urine CLEAR; Color Urine STRAW; Glucose Urine UA NEG (NEG); Leukocyte Esterase Urine NEG (NEG); Nitrite Urine NEG (NEG); PH 5.5 (5.0-8.0); Specific Gravity - Urine 1.015 (1.005-1.025); Urine Blood NEG (NEG); Urine Ketones NEG (NEG); Urine Protein 1+ MG/DL (NEG-TRACE)
[2021-12-19 15:05] LABS: RBC Urine 0 /HPF (0); Squamous Epithelial Cell Urine TRACE /LPF; WBC Urine 0 /HPF (0-4)
== END ==
LOC: HO.CARD 09:44
PROVIDERS: Absent Provider Urology; PCP Student in an Organized Health Care Education/Training Program; Visit Provider Internal Medicine Cardiovascular Disease
DX: R07.9 Chest pain, unspecified (principal); N39.0 Urinary tract infection, site not specified
CPT/HCPCS: 81001; 87086; 93017

== ENCOUNTER → 2022-01-18 14:02 | Outpatient (REF) | payer MEDICAID, SELFPAY ==
--- NOTE | 2022-01-18 14:07 | CA_ITS ---
Transthoracic Echocardiogram Patient (Last, First, Middle): Ambika Mcdermott, Gender: Female Date of : 1985 Age: 36 Procedure Date: 01/18/2022 Procedure Type: Transthoracic Echocardiogram Location: OP Height: 149.86 cm Weight: 78.02 kg BSA: 1.73 m2 Heart Rate: bpm BP: 98 / 60 mmHg Delivery Rep: TO Referring MD: Carrillo Estrella MD Application Performance Engineer: Eddi Holley MD Symptoms: R55 - Syncope and collapse Study Quality: Adequate ECG Rhythm: Sinus Conclusions: - Normal study Findings Left Ventricle Normal left ventricular size, thickness, and systolic function. The visually estimated ejection fraction is between 60-65%. Spectral Doppler is indicative of a normal filling pattern. Right Ventricle Normal right ventricular cavity size and systolic function. Atria Both atria are normal in size. Interatrial shunt cannot be excluded. Aortic Valve Normal aortic valve structure and function. There is no aortic valve stenosis. There is no aortic valve regurgitation. Mitral Valve Normal mitral valve structure and function. There is trace mitral valve regurgitation. There is no mitral valve stenosis. Pulmonic Valve The pulmonic valve is likely normal. Tricuspid Valve Normal tricuspid valve structure. There is trace tricuspid valve regurgitation. The right ventricular systolic pressure is normal. The right ventricular systolic pressure is 18 mmHg. Normal right atrial pressure. There is no evidence of pulmonary hypertension. Great Vessels All visible segments of the aorta are normal in size. The pulmonary artery was not well visualized. Venous The inferior vena cava is normal in size and collapses greater than 50% with inspiration. Pericardium/Pleural There is no evidence of pericardial effusion. Prior Study Comparison No prior study available for comparison. Measurements 2D Linear Measurements IVSd: 0.85 0.6-0.9/0.6-1.0 cm LVIDd: 4.28 3.9-5.3/4.2-5.9 cm LVIDd Index: 2.47 2.4-3.2/2.2-3.1 cm/m2 LVIDs: 2.85 2.0-3.6 cm LVPWd: 0.82 0.7-1.1 cm LA Diam: 2.20 2.7-3.8/3.0-4.0 cm LAIDs Index: 1.27 1.5-2.3 cm/m2 LV Mass: 137.09 67-162/88-224 g LV Mass Index: 79.24 43-95/49-115 g/m2 LVOT Diam: 2.00 3.0+(-)1.3 cm 2D Systolic Function EF 4C: 56.90 >55% EF 2C: 61.90 >55% EF BiP: 58.60 >55% Mitral Valve MV Pk E: 0.90 MV PK A: 0.58 MV Decel Time: 162.00 E/A: 1.60 E'Lateral: 12.80 E'Medial: 11.20 E/E' Med: 8.10 E/E' Lat: 7.10 PHT: 47.00 MVA PHT: 4.68 Decel Vance: 5.59 Aortic Valve AoV Pk Gunnar: 1.31 AoV Mn Gunnar: 0.85 AoV VTI: 0.23 AoV Pk Grad: 7.00 Aov Mn Grad: 3.00 SVETLANA Cont.VTI: 2.04 LVOT LVOT Pk Gunnar: 0.86 LVOT Mn Gunnar: 0.53 LVOT VTI: 0.15 LVOT Pk Grad: 3.00 LVOT Mn Grad: 1.00 LVOT Diam: 2.00 LVOT Area: 3.14 Diastolic Function MV Pk E: 0.90 MV Pk A: 0.58 E/A: 1.60 E'Medial: 11.20 E/E' Med: 8.10 E' Laterial: 12.80 E/E' Lat: 7.10 Right Ventricle TAPSE (mm): 27.20 TVS' Gunnar: 13.10 Tricuspid Valve TR Pk Gunnar: 1.91 TR Pk Grad: 15.00 RA Press: 3.00 RVSP: 18.00 Great Vessels Aorta Sinus of Valsalva: 2.31 2.0-3.5 cm Ao Asc: 2.60 2.1-3.4 cm Ao Arch: 2.50 Updated in Other Vendor System with Status of Final Eddi Holley MD electronically signed on 01/18/2022 6:15:54 PM with status of Final
== END ==
LOC: HO.CARD 14:02
PROVIDERS: PCP Student in an Organized Health Care Education/Training Program; Visit Provider Internal Medicine Cardiovascular Disease
DX: R55 Syncope and collapse (principal)
CPT/HCPCS: 93306

== ENCOUNTER → 2022-01-19 08:00 | Outpatient (BNVA) | payer MEDICAID, SELFPAY | PROVIDERS: PCP Student in an Organized Health Care Education/Training Program; Visit Provider Nurse Practitioner Family | DX: M46.1 Sacroiliitis, not elsewhere classified (principal); M79.18 Myalgia, other site; M25.552 Pain in left hip; G89.29 Other chronic pain; M79.2 Neuralgia and neuritis, unspecified | CPT/HCPCS: 99212 ==

== ENCOUNTER → 2022-01-22 08:45 | Outpatient (REF) | payer MEDICAID, SELFPAY ==
--- NOTE | ~2022-01-22 | NM_ITS ---
EXERCISE MYOCARDIAL PERFUSION STUDY INDICATION: Chest pain, assess for coronary disease and ischemia TECHNIQUE: The patient was brought in for an exercise perfusion study on 01/22/2022. Patient performed exercise as per Vernon protocol and was injected 25 mCi of sestamibi once target heart rate was achieved. Images were obtained using the SPECT gamma camera interlaced with the gating device. Images were obtained in supine position. Resting perfusion study was performed on 01/23/2022. Patient was administered 25 mCi of sestamibi intravenously at rest. Images were then obtained in supine position. Total DLP 93mGy-cm. Images were processed with the software and compared side to side in short axis, horizontal long axis and vertical long axis views. FINDINGS: Raw images were reviewed. The stress perfusion study showed no significant perfusion abnormality. Both uncorrected as well as CT attenuation corrected images were reviewed. The gated study shows normal LV systolic function with calculated LVEF of 71%. LV cavity is normal in size. The gated study shows normal wall thickening and contraction of segments. Resting study shows no significant perfusion abnormality. Gating at rest reveals normal wall motion with ejection fraction at 55%. The findings are consistent with no definitive reversible or fixed perfusion defects. NM/NM cardiolite stress test IMPRESSION: 1. Myocardial perfusion imaging study shows normal myocardial perfusion. 2. Gated LVEF is 71% during stress and 55% during rest. 3. Transient ischemic dilatation not present. EKG component of the test reported separately.
--- NOTE | 2022-01-22 08:48 | CA_ITS ---
Acquisition Time: 2022-01-22 09:21:12 Total Exercise Time: 00:05:00 Test Indications: Abnormal Treadmill Test Medications: SEE H Protocol: MALOU Max HR: 169 BPM 90% of Pred: 186 BPM Max BP: 144/070 mmHG Max Work Load: 7.0 METS Exercise stress test with exercise 5 min of Malou protocol, achieving 89% MPHR, with mild sob, no chest discomfort, without arrythmia, with normotensive response to exercise, with EKG changes meeting criteria for ischemia: horizontal ST depression, 1 mm inferiorly, V3-V6 with gradual improvement back to baseline in recovery. Nuclear images pending. Test reviewed with Dr Lerma. Referred By: Michell Espinoza Overread By: MICHELL ESPINOZA
== END ==
LOC: HO.CARD 08:45
PROVIDERS: PCP Student in an Organized Health Care Education/Training Program; Visit Provider Nurse Practitioner Family
DX: R07.9 Chest pain, unspecified (principal); R55 Syncope and collapse; R94.39 Abnormal result of other cardiovascular function study
CPT/HCPCS: 78452; 93017; A9500

== ENCOUNTER 2022-01-31 09:53 | Outpatient (REF) | payer MEDICAID, SELFPAY ==
--- NOTE | ~2022-01-31 | US_ITS ---
EXAMINATION: US RETROPERITONEAL LIMITED (RENAL ONLY) CLINICAL INFORMATION: Calculus of kidney. COMPARISON: Renal ultrasound 05/15/2021 and 11/16/2019. CT abdomen and pelvis 05/29/2019. TECHNIQUE: Real-time imaging of the kidneys. FINDINGS: RIGHT KIDNEY: 10.1 x 5.6 x 5.4 cm (SAG x AP x TRV). The kidney is normal in size, contour, and echogenicity. Renal cortical thickness is normal. No calculi or focal parenchymal lesions. No hydronephrosis. LEFT KIDNEY: 10.6 x 4.8 x 4.7 cm (SAG x AP x TRV). The kidney is normal in size, contour, and echogenicity. Renal cortical thickness is normal. No focal parenchymal lesions or hydronephrosis. There is nonobstructive echogenic stone without shadowing in upper pole measuring 0.3 cm in midpole measuring 0.3 cm. US/US renal BI IMPRESSION: Nonobstructive echogenic calculi upper and midpole left kidney. These are new as compared to previous study 05/16/2021 The right kidneys unremarkable..
== END 2022-01-31 09:54 | disposition home or self-care (01) ==
LOC: HO.US 09:53
DX: N20.0 Calculus of kidney (principal)
CPT/HCPCS: 76775

== ENCOUNTER 2022-02-23 09:23 | Outpatient (REF) | payer MEDICAID, SELFPAY ==
--- NOTE | ~2022-02-23 | XR_ITS ---
EXAMINATION: XR FOOT, LEFT CLINICAL INFORMATION: Pain left foot COMPARISON: None TECHNIQUE: AP, lateral, and oblique views of the left foot. FINDINGS: The lateral sesamoid beneath the first metatarsal head appears fragmented on the AP view. This is not confirmed on the other 2 projections. Recommend correlation with patient's symptoms and clinical exam. The remainder of the bony structures appear intact and there is no acute or healing fracture or dislocation or destructive process. No joint narrowing or erosive change. XR/XR foot LT min 3V IMPRESSION: -Questionable fragmentation lateral sesamoid on AP view, not confirmed on other projections. Recommend correlation with patient's symptoms and clinical exam. -Bony structures otherwise unremarkable. No fracture or arthropathy.
== END 2022-02-23 09:24 | disposition home or self-care (01) ==
LOC: HO.XRAY 09:23
PROVIDERS: Absent Provider Student in an Organized Health Care Education/Training Program; PCP Student in an Organized Health Care Education/Training Program; Visit Provider Internal Medicine
DX: M79.2 Neuralgia and neuritis, unspecified (principal); M79.674 Pain in right toe(s)
CPT/HCPCS: 20552; 20553; 73630; 99212

== ENCOUNTER → 2022-03-05 15:08 | Outpatient (BNVA) | payer MEDICAID, SELFPAY | PROVIDERS: PCP Student in an Organized Health Care Education/Training Program; Visit Provider Internal Medicine Cardiovascular Disease | DX: R06.00 Dyspnea, unspecified (principal); R55 Syncope and collapse; R76.8 Other specified abnormal immunological findings in serum; M79.7 Fibromyalgia; M25.80 Other specified joint disorders, unspecified joint; M79.641 Pain in right hand; M79.642 Pain in left hand; G89.29 Other chronic pain; R10.9 Unspecified abdominal pain | CPT/HCPCS: 99212 ==

== ENCOUNTER 2022-03-06 16:50 | Outpatient (REF) | payer MEDICAID, SELFPAY ==
[2022-03-06 17:00] LABS: MANUAL DIFF FLAG NO
[2022-03-06 17:31] LABS: Basophils Absolute Auto 0.1 X10*3/uL (0.0-0.2); Basophils Percent Auto 0.5 % (0-2); Eosinophils Absolute Auto 0.1 X10*3/uL (0.0-0.4); Eosinophils Percent Auto 0.6 % (0-4); Hematocrit 39.5 % (37.0-47.0); Hemoglobin 12.3 g/dl (12.0-16.0); Imm Gran Abs Auto 0.26 X10*3/uL (0.00-0.03); Imm Gran Pct Auto 1.5 % (0.0-0.4); Lymphocytes Absolute Auto 3.2 X10*3/uL (1.2-4.9); Lymphocytes Percent Auto 18.9 % (20-40); Mean Corpuscular HGB Conc 31.1 g/dl (31.0-35.0); Mean Corpuscular Hemoglobin 25.3 pg (27.0-33.0); Mean Corpuscular Volume 81.1 fL (80.0-98.0); Mean Platelet Volume 11.3 fL (9.4-12.3); Monocytes Absolute Auto 1.1 X10*3/uL (0.1-1.2); Monocytes Percent Auto 6.2 % (2-11); Neutrophils Absolute Auto 12.4 x10*3/uL (2.0-8.3); Neutrophils Percent Auto 72.3 % (45-73); Platelet Count 386 X10*3/uL (160-400); Red Blood Count 4.87 X10*6/uL (4.20-5.50); Red Cell Distribution Width 14.5 % (11.0-16.0); White Blood Count 17.1 X10*3/uL (4.8-10.8)
[2022-03-06 17:50] LABS: C Reactive Protein 0.12 mg/dL (< or = 0.50)
[2022-03-06 18:07] LABS: Erythrocyte Sedimentation Rate 23 MM/HR (0-20)
[2022-03-06 19:52] LABS: Creatinine Urine 131.28 mg/dL; Protein/Creatinine Ratio, Ur 0.11 (<0.2); Total Protein Urine Random 14 mg/dL (<12)
[2022-03-07 12:21] LABS: Anti DNA DS Antibody 2 IU/mL; SM/Ribonucleoprotein Ab <1.0 NEG AI (<1.0 NEG); Smith Protein <1.0 NEG AI (<1.0 NEG)
== END 2022-03-06 16:51 | disposition home or self-care (01) ==
LOC: HO.LAB 16:50
PROVIDERS: PCP Student in an Organized Health Care Education/Training Program; Visit Provider Internal Medicine Rheumatology
DX: R76.8 Other specified abnormal immunological findings in serum (principal)
CPT/HCPCS: 36415; 84156; 85025; 85652; 86140; 86225; 86235

== ENCOUNTER 2022-03-08 11:51 | Outpatient (REF) | payer MEDICAID, SELFPAY ==
[2022-03-08 19:50] LABS: CT PCR NOT DETECTED (Not Detect.); NG PCR NOT DETECTED (Not Detect.)
[2022-03-09 09:47] LABS: BV Int Neg Control Negative (Negative); BV Int Pos Control Positive (Positive)
== END 2022-03-08 11:52 | disposition home or self-care (01) ==
LOC: HO.LNP 11:51
PROVIDERS: Visit Provider Obstetrics & Gynecology
DX: Z11.3 Encounter for screening for infections with a predominantly sexual mode of transmission (principal); B37.3 Candidiasis of vulva and vagina
CPT/HCPCS: 87480; 87491; 87510; 87591; 87660; 99212

== ENCOUNTER 2022-03-30 12:42 | Outpatient (REF) | payer MEDICAID, SELFPAY ==
--- NOTE | 2022-03-30 17:07 | PFT_ITS ---
INDICATION: Dyspnea. SPIROMETRY: FEV1 to FVC of 94% with an FEV1 of 2.66 L, which is 101% predicted, an FVC of 2.82 L, which is 89% predicted. No significant response to bronchodilators noted. Maximum voluntary ventilation is 82% predicted. LUNG VOLUMES: Total lung capacity 82% predicted with an expiratory reserve volume of 47% predicted. DIFFUSION CAPACITY: DLCO 92% predicted. COMPARISONS: None. INTERPRETATION: No obstructive nor restrictive ventilatory defects identified. No significant response to bronchodilators noted. No maximum voluntary ventilation. Lung volumes are low normal and the patient does have a decreased expiratory reserve volume, likely secondary to an elevated BMI. The patient has a normal diffusion capacity. Clinical correlation warranted. Luis Alberto Dominguez MD MR/MODL / [id number]
== END 2022-03-30 12:43 | disposition home or self-care (01) ==
LOC: HO.RESP 12:42
PROVIDERS: PCP Student in an Organized Health Care Education/Training Program; Visit Provider Internal Medicine Cardiovascular Disease
DX: R06.00 Dyspnea, unspecified (principal)
CPT/HCPCS: 94060; 94727; 94729

== ENCOUNTER 2022-07-20 13:29 | Outpatient (REF) | payer MEDICAID, SELFPAY ==
--- NOTE | ~2022-07-20 | US_ITS ---
EXAMINATION: US RETROPERITONEAL LIMITED (RENAL ONLY) CLINICAL INFORMATION: Calculus of kidney. COMPARISON: Renal ultrasound 01/31/2022 and 05/15/2021. CT abdomen and pelvis 05/29/2019. TECHNIQUE: Real-time imaging of the kidneys. FINDINGS: RIGHT KIDNEY: 10.7 x 4.2 x 4.6 cm (SAG x AP x TRV). The kidney is normal in size, contour, and echogenicity. Renal cortical thickness is normal. No calculi or focal parenchymal lesions. No hydronephrosis. LEFT KIDNEY: 10.5 x 3.9 x 4.2 cm (SAG x AP x TRV). The kidney is normal in size, contour, and echogenicity. Renal cortical thickness is normal. Two (2) echogenic foci noted measuring 4 mm in the upper pole and 3 mm in the mid kidney consistent with nonobstructing calculi similar to the 01/31/2022 ultrasound. No focal parenchymal lesions or hydronephrosis. Incidental note made of an echogenic liver consistent with hepatic steatosis. US/US renal BI IMPRESSION: Nonobstructing left renal calculi.
== END 2022-07-20 13:30 | disposition home or self-care (01) ==
LOC: HO.US 13:29
PROVIDERS: PCP Student in an Organized Health Care Education/Training Program; Visit Provider Urology
DX: N20.0 Calculus of kidney (principal)
CPT/HCPCS: 76775

== ENCOUNTER → 2022-07-30 11:42 | Outpatient (BNVA) | payer MEDICAID, SELFPAY | PROVIDERS: PCP Student in an Organized Health Care Education/Training Program; Visit Provider Nurse Practitioner Family | DX: N20.0 Calculus of kidney (principal) | CPT/HCPCS: 99212 ==

== ENCOUNTER 2022-08-08 10:11 | Outpatient (REF) | payer MEDICAID, SELFPAY ==
--- NOTE | ~2022-08-08 | US_ITS ---
EXAMINATION: US ABDOMEN COMPLETE CLINICAL INFORMATION: Right upper quadrant pain. COMPARISON: Renal ultrasound 07/20/2022 and 01/31/2022. CT abdomen and pelvis 05/29/2019. TECHNIQUE: Real-time imaging of the abdominal viscera. FINDINGS: PANCREAS: Normal. ABDOMINAL AORTA: The proximal, mid, and distal segments are normal in caliber. INFERIOR VENA CAVA: Visualized portions are normal. LIVER: The liver is normal in size. The liver contour is normal. Increased echogenicity. No focal hepatic lesion. There is no intrahepatic biliary duct dilatation seen. GALLBLADDER: Normal. The gallbladder is physiologically distended without evidence of stones, sludge, polyps, wall thickening or pericholecystic fluid. COMMON BILE DUCT: Normal in caliber measuring 0.3 cm in diameter. RIGHT KIDNEY: Nonobstructive calculus in the interpolar region measuring 0.4 cm. No hydronephrosis or focal parenchymal lesions. The kidney measures 10.6 cm in maximum dimension. LEFT KIDNEY: Nonobstructive calculi in the interpolar region measuring up to 0.3 cm. No hydronephrosis or focal parenchymal lesions. The kidney measures 9.7 cm in maximum dimension. SPLEEN: Normal. The spleen measures 9.4 cm in maximum dimension. FREE FLUID: None. US/US abdomen complete IMPRESSION: 1. Bilateral nonobstructive renal calculi. 2. Increased echogenicity of the liver is nonspecific and could be related with hepatic steatosis or hepatocellular disease. Correlate with liver function tests.
== END 2022-08-08 10:12 | disposition home or self-care (01) ==
LOC: HO.HMGCX 10:11
PROVIDERS: PCP Student in an Organized Health Care Education/Training Program; Visit Provider Internal Medicine Medical Oncology
DX: R10.11 Right upper quadrant pain (principal)
CPT/HCPCS: 76700

== ENCOUNTER → 2022-08-10 11:08 | Outpatient (BNVA) | payer MEDICAID, SELFPAY | PROVIDERS: PCP Student in an Organized Health Care Education/Training Program; Visit Provider Internal Medicine | DX: M25.552 Pain in left hip (principal); M54.50 Low back pain, unspecified; Z79.899 Other long term (current) drug therapy | CPT/HCPCS: 99212 ==

== ENCOUNTER 2022-08-22 01:23 | Emergency (ER) | payer MEDICAID, SELFPAY ==
[2022-08-22 01:26] VITALS: BP 119/69; PULSE 98; RESP 18; TEMP 36.2; O2SAT 100; BMI 33.3
--- NOTE | 2022-08-22 04:19 | ED_ITS ---
HPI - Dental/Oral General Chief complaint: Dental/Oral Stated complaint: tooth pain bottom right /vomiting Time Seen by Provider: 08/22/22 03:58 Source: patient Mode of arrival: ambulatory Limitations: no limitations History of Present Illness HPI Narrative: Patient had root canal done 2 days ago and right lower molar now comes as pain is still going on and be nauseated as she taking pain medication empty stomach patient very anxious tearful on arrival no fever Related Data Home Medications Medication Instructions Recorded Confirmed lorazepam 1 mg tablet 1 mg PO BEDTIME PRN Anxiety 03/29/20 08/10/22 cetirizine 10 mg tablet 10 mg PO DAILY 02/02/21 08/10/22 azelastine 137 mcg (0.1 %) nasal 1 spray intranasal DAILY 06/12/21 08/10/22 spray aerosol ibuprofen 400 mg tablet 400 mg PO Q4-6H PRN Pain 11/20/21 08/10/22 paroxetine HCl 10 mg tablet 10 mg PO DAILY 11/20/21 08/10/22 diclofenac sodium 1 % topical gel 4 g topical BID 07/30/22 08/10/22 trazodone 50 mg tablet 50 mg PO BEDTIME PRN 07/30/22 08/10/22 omeprazole 20 mg capsule,delayed 20 mg PO DAILY 08/10/22 08/10/22 release Previous Rx's Medication Instructions Recorded simethicone 180 mg capsule 180 mg PO BID 30 days #60 caps 06/05/21 clotrimazole-betamethasone 1 1 appl topical BID 5 days #45 grams 03/13/22 %-0.05 % topical cream pyridoxine (vitamin B6) 100 mg 100 mg PO DAILY 90 days #90 tabs 07/30/22 tablet pregabalin 75 mg capsule (Lyrica) 75 mg PO BEDTIME 30 days #30 caps 08/10/22 ondansetron 4 mg disintegrating 4 mg PO Q6-8H PRN nausea and 08/22/22 tablet vomiting #7 tabs Allergies Allergy/AdvReac Type Severity Reaction Status Date / Time Iodinated Contrast Media Allergy Intermediate SHORTNESS Verified 08/10/22 11:20 [IV DYE, IODINE CONTAINING OF BREATH CONTRAST ] citalopram [From CELEXA] Allergy Unknown VOMITTING Verified 08/10/22 11:20 duloxetine [Cymbalta] Allergy Unknown unknown Verified 08/10/22 11:20 morphine [MORPHINE] Allergy Unknown PALPITATIONS-PT Verified 08/10/22 11:20 PREFERS NOT TO TAKE tramadol [TRAMADOL] Allergy Unknown VOMITING Verified 08/10/22 11:20 Review of Systems Review of Systems: Yes all other systems are reviewed and are negative [facility] Past Medical History Medical History NURIA positive Fibroadenoma Fibromyalgia History of thyroiditis Hx of lipoma Lipoma Obesity Vitamin D deficiency Surgical History History of esophagogastroduodenoscopy (EGD) History of wisdom tooth extraction Family History Family History Father Diabetes Heart attack Asthma Maternal Grandmother Diabetes HTN (hypertension) Parkinson disease Breast cancer Mother Diabetes Family history of diabetes mellitus Sister Asthma Maternal Grandfather Parkinson disease Social History Social History Household Members: Children Housing: Condominium Are you a primary career development coordinator/teacher to a significant other at home: No Do you presently have visiting nurse 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 (turner in) Alcohol intake: never Patient Tobacco Use Status: Never used Tobacco Second Hand Smoke Exposure: Yes (Neighbors) Advance Directives: No Advance Directives Information Provided: Yes service: No Current occupational status: disabled Sexual orientation: Straight/Heterosexual Gender identity: Female Physical Exam Vital Signs: Vital Signs: Last Vital Signs Temp 97.2 F 08/22/22 01:26 Pulse 79 08/22/22 05:09 Resp 18 08/22/22 01:26 BP 119/63 08/22/22 05:09 Pulse Ox 96 08/22/22 05:09 O2 Del Method 08/22/22 05:09 BMI result Body Mass Index 33.3 Const: General: healthy appearing, well developed, in distress and anxious HEENT: Teeth image: 1. Diffuse tenderness no gum swelling no fluctuancy Throat: Yes posterior oropharynx normal Resp: Effort & Inspection: normal respiratory effort Auscultation: clear to auscultation bilaterally Cardio: Palpation: normal PMI Rate: regular rate Rhythm: regular rhythm GI: Inspection: Yes normal to inspection Palpation (GI): Soft to palpation and nontender Medications Administered Discontinued Medications Generic Name Dose Route Start Last Admin Trade Name Freq PRN Reason Stop Dose Admin Ketorolac Tromethamine 60 mg 08/22/22 04:26 08/22/22 04:43 Ketorolac Tromethamine 60 Mg/2 Ml Vial IM 08/22/22 04:27 60 mg ONCE ONE Administration Ondansetron HCl 4 mg 08/22/22 04:26 08/22/22 04:43 Ondansetron Odt 4 Mg Tab.Rapdis TRANSLINGU 08/22/22 04:27 4 mg ONCE ONE Administration Discharge Plan Discharge Clinical Impression: Tooth ache Patient Disposition: Home, Self-Care Instructions: Toothache (ED) Additional Instructions: Continue pain medication and antibiotic as prescribed by dentist Medicine for nausea Prescriptions: New ondansetron 4 mg tablet,disintegrating 4 mg PO Q6-8H PRN (Reason: nausea and vomiting) Qty: 7 0RF No Action clotrimazole-betamethasone 1-0.05 % cream 1 appl topical BID 5 Days Qty: 45 0RF cetirizine 10 mg tablet 10 mg PO DAILY lorazepam 1 mg tablet 1 mg PO BEDTIME PRN (Reason: Anxiety) simethicone 180 mg capsule 180 mg PO BID 30 Days Qty: 60 3RF Rx Instructions: after meals paroxetine HCl 10 mg tablet 10 mg PO DAILY ibuprofen 400 mg tablet 400 mg PO Q4-6H PRN (Reason: Pain) trazodone 50 mg tablet 50 mg PO BEDTIME PRN diclofenac sodium 1 % gel 4 g topical BID pyridoxine (vitamin B6) 100 mg tablet 100 mg PO DAILY 90 Days Qty: 90 1RF omeprazole 20 mg capsule,delayed release(DR/EC) 20 mg PO DAILY pregabalin [Lyrica] 75 mg capsule 75 mg PO BEDTIME 30 Days Qty: 30 5RF azelastine 137 mcg (0.1 %) aerosol,spray 1 spray intranasal DAILY
[2022-08-22] MEDS: Ketorolac Tromethamine 60 MG/2 ML VIAL IM (04:43)
[2022-08-22] MEDS: Ondansetron ODT 4 MG TAB.RAPDIS TRANSLINGU (04:43)
[2022-08-22 05:09] VITALS: BP 119/63; PULSE 79; O2SAT 96
--- NOTE | 2022-08-22 05:14 | PC.NURSE ---
Pt a&o, no sob or chest pain, pt report 2/10 pain, Reviewed discharge instruction with pt. pt verbalized understanding.
== END 2022-08-22 05:21 | disposition home or self-care (01) ==
PROVIDERS: Emergency Provider Internal Medicine
DX: K08.89 Other specified disorders of teeth and supporting structures (principal); R11.0 Nausea; Z98.818 Other dental procedure status
CPT/HCPCS: 96372; 99284; J1885

== ENCOUNTER → 2022-09-19 12:43 | Outpatient (BNVA) | payer MEDICAID, SELFPAY | PROVIDERS: PCP Student in an Organized Health Care Education/Training Program; Referring Provider Student in an Organized Health Care Education/Training Program; Visit Provider Nurse Practitioner | DX: K21.9 Gastro-esophageal reflux disease without esophagitis (principal); K31.84 Gastroparesis | CPT/HCPCS: 99212 ==

== ENCOUNTER → 2022-10-17 13:56 | Outpatient (BNVA) | payer MEDICAID, SELFPAY | PROVIDERS: PCP Student in an Organized Health Care Education/Training Program; Visit Provider Nurse Practitioner | DX: K58.1 Irritable bowel syndrome with constipation (principal); K31.84 Gastroparesis; K21.9 Gastro-esophageal reflux disease without esophagitis; R13.12 Dysphagia, oropharyngeal phase | CPT/HCPCS: 99212 ==

== ENCOUNTER 2022-11-15 09:15 | Outpatient (REF) | payer MEDICAID, SELFPAY ==
--- NOTE | ~2022-11-15 | FL_ITS ---
EXAMINATION: FL BARIUM SWALLOW CLINICAL INFORMATION: Constant feeling of something within her throat. COMPARISON: None available. TECHNIQUE: Barium swallow examination is performed using fluoroscopic evaluation in addition to multiple fluoroscopic spot views. The patient is imaged both upright and prone and using both thick and thin sulfate along with effervescent granules. Fluoroscopy time: 1.2 minutes DAP: 3.974 Gycm2 Images: 30 FINDINGS: There is normal apposition of the vocal cords while saying E. There is normal elevation of the soft palate while saying candy. Patient swallowed thin and thick barium and a half-inch diameter barium tablet without difficulty. No nasopharyngeal reflux or tracheal aspiration was identified. There is cricopharyngeal hypertrophy present without Zenker's diverticulum formation. No persistent esophageal stricture was identified. No mucosal abnormality is seen. There is normal esophageal motility. No tertiary contractions were seen. No hiatal hernia. No gastroesophageal reflux elicited including with water siphon test. FL/FL barium swallow IMPRESSION: Cricopharyngeal hypertrophy. Otherwise unremarkable esophagram.
== END 2022-11-15 09:16 | disposition home or self-care (01) ==
LOC: HO.XRAY 09:15
PROVIDERS: PCP Student in an Organized Health Care Education/Training Program; Visit Provider Student in an Organized Health Care Education/Training Program
DX: R13.10 Dysphagia, unspecified (principal)
CPT/HCPCS: 74220

== ENCOUNTER → 2022-11-22 14:24 | Outpatient (BNVA) | payer MEDICAID, SELFPAY | PROVIDERS: PCP Student in an Organized Health Care Education/Training Program; Referring Provider Student in an Organized Health Care Education/Training Program; Visit Provider Nurse Practitioner | DX: M79.10 Myalgia, unspecified site (principal); R13.12 Dysphagia, oropharyngeal phase | CPT/HCPCS: 99212 ==

== ENCOUNTER 2022-12-06 12:00 | Outpatient (RCR) | payer MEDICAID, SELFPAY ==
--- NOTE | 2022-11-06 15:54 | MHC.PT.EP ---
[facility] Cost Office [place] Office [place] Office [address] [phone] F: [phone] F: [phone] F: [phone] F: [phone] Physical Therapy Plan of Care Date of Evaluation: Date of Surgery: N/A Diagnosis: LBP and hip pain (RC) Assessment: pt is a 37 y/o female presenting to physical therapy w/ referring diagnosis of M54.50 low back pain, unspecified, M25.552 pain in left hip. pt's signs and symptoms seem consistent w/ R SI dysfunction following period of time w/ poor ambulation mechanics. Less suspicious of lumbar radiculopathy as MRI demo'd minimal disc bulge w/o nerve compression. Will continue to monitor and treat/refer as appropriate. Impairments include pain, decreased range of motion, decreased strength, impaired functional mobility, impaired postural awareness, and altered ambulation mechanics. pt is a good candidate for skilled PT due to age, potential remediation of impairments, typical disease/condition progression and prognosis, comorbidities, and motivation. pt would benefit from skilled PT intervention to provide a tailored strengthening and stretching exercise program, functional training, gait training, postural re-training, neuromuscular re-education, modalities as needed for pain, equipment safety demonstration. Frequency and Duration: The patient will be seen 2x/wk for 4 wks Short Term Goals: pt will be I w/ HEP to promote self-management of condition. pt will improve B hip flexion strength by 1 MMT grade to promote ease in functional mobility. Shelter Goals: pt will perform sit<>supine transfer I level. pt will report a statistically significant improvement in self-reported outcome measure, LEFI, to promote return to PLOF. Treatment Plan: Modalities to reduce pain, spasms and effusion. Manual therapy to restore motion and function. Therapeutic exercise to improve strength and flexibility. Neuromuscular re-education for posture and balance. Therapeutic activities to return to functional activities of daily living. Electronically signed by: Laila Mackey PT, DPT Please sign and return to therapist. Thank you for your referral.
== END 2022-12-06 13:34 | disposition home or self-care (01) ==
LOC: HO.PT 12:00
PROVIDERS: Absent Provider Physician Assistant; PCP Student in an Organized Health Care Education/Training Program; Visit Provider Internal Medicine
DX: M54.50 Low back pain, unspecified (principal); M25.552 Pain in left hip
CPT/HCPCS: 97110; 97140; 97162; 97530; 97535

== ENCOUNTER 2023-01-01 14:54 | Outpatient (AMB) | payer MEDICAID, SELFPAY ==
--- NOTE | 2023-01-01 14:56 | MHC.OFFVIS ---
Intake Vital Signs 01/01/23 15:05 Height 4 ft 11 in Weight 174 lb 9.698 oz BMI 35.3 BP 123/63 Blood Pressure Location Lt brachial Position Sitting Pulse 86 Intake Visit Reasons: follow up dysphagia, bloating, GERD Intake Note: Patient presents to in office visit today in follow up of bloating, GERD. CC: Patient reports having diarrhea yesterday and nausea today. She reports she went to see the ENT physician and he sent her to have therapy. She states she still feels so so from her stomach. Senior Chemist Required: No Accompanied by: Spouse Allergies Iodinated Contrast Media [IV DYE, IODINE CONTAINING CONTRAST ] Allergy (Intermediate, Verified 01/25/23 13:24) SHORTNESS OF BREATH citalopram [From CELEXA] Allergy (Unknown, Verified 01/25/23 13:24) VOMITTING duloxetine [Cymbalta] Allergy (Unknown, Verified 01/25/23 13:24) unknown morphine [MORPHINE] Allergy (Unknown, Verified 01/25/23 13:24) PALPITATIONS-PT PREFERS NOT TO TAKE tramadol [TRAMADOL] Allergy (Unknown, Verified 01/25/23 13:24) VOMITING HPI follow up dysphagia, bloating, GERD HPI Details Assessment & Plan (1) Oropharyngeal dysphagia: ?Code(s): R13.12 - Dysphagia, oropharyngeal phase ?Plan: [place] #Caitlin Live I advise her of the barium swallow results and her ENT appt is in December. I explain about the cricopharyngeal hypertrophy. This would be treated with either botox injections or a myotomy. However, she likely needs a work up also with a neurologist and/or a senior bioinformatics scientist as this at times is associated with other diseases such as: FROM UPTOD[employer]' (The neurologic examination may also detect disorders with more subtle physical findings. As an example, decreased proximal strength may indicate dermatomyositis or polymyositis. Hoarseness of the voice may indicate vocal cord paresis or paralysis. Bilateral ptosis, muscle weakness, or repetitive efforts at swallowing are other signs suggestive of muscle disease. The presence of cogwheeling, rigidity, or a shuffling gait may indicate Parkinson disease. Motor and sensory abnormalities should raise the suspicion for multiple sclerosis, which is frequently associated with oropharyngeal dysphagia, but usually in the setting of longer disease duration and significant motor disability) Her grandfather had Parkinsons disease, severe osteoporosis with fractures runs in the family, and she has body wide muscle aches and respiratory difficulties. She is using the creon and is feeling better with the stomach and bloating problems. However, she still will have episodes of severe bloating that will resolve after a few hours but she does not pass gas (??).? She continues on her Dexilant, dicyclomine 10 mg, famotidine, and Reglan 5 mg (we could not increase the dose related to dizziness) and she also has simethicone. I need to research who it is best to refer her to for overall dx. She sees a neuro but only for dizziness/syncope but likely will not see him for 6 months - the office is on the 4th floor here. At this point, I want to see her after the ENT appt. 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 Return office visit after her ENT appointment which is 12/28.? I will be interested to see what the youth support worker findings in view point is.. (2) Myalgia: ?Code(s): M79.10 - Myalgia, unspecified site ? ? ? Orders: Orders CK, Total+Isoenzym es, Serum 11/22/22 R13.12 - Dysphagia , oropharyngeal ph ase, M79.10 - Myal swetha, unspecified s ite ? Myositis Assess DAVON 1 Ab 11/22/22 R13.12 - Dysphagia , oropharyngeal ph ase, M79.10 - Myal swetha, unspecified s ite ? TODAY'S VISIT [place] #Derik Live She is here with a male family member who is supportive. She saw the ENT and he told her that her swallowing problems were related to anxiety. They are sending her for some type of therapy, but she is not sure what. She also wanted to address her allergy problems with this provider, but she did not feel he listened to her. (Her grandfather had Parkinsons disease, severe osteoporosis with fractures runs in the family, and she has body wide muscle aches and respiratory difficulties.) I will provide referrals to neurology and rheumatology and aks her to go for the labs for myositis - she will. She was not aware of the lab. Orders CK, Total+Isoenzymes, Serum 11/22/22 R13.12 - Dysphagia, oropharyngeal phase, M79.10 - Myalgia, unspecified site ? Myositis Assess JO1 Ab 11/22/22 R13.12 - Dysphagia, oropharyngeal phase, M79.10 - Myalgia, unspecified site ? She is c/o nausea but is not taking the reglan scheduled qidachs - so I encourage her to do so again explaining the dual role of this medicine and not to take it prn for nausea. She has normal BM's alt with [facility]. She is c/o some rectal burning and I will provide a roid cream. ROV 6 weeks to eavl taking reglan qidachs. [facility] Medical History NURIA positive Fibroadenoma Fibromyalgia History of thyroiditis Hx of lipoma Lipoma Obesity Vitamin D deficiency Surgical History History of esophagogastroduodenoscopy (EGD) History of wisdom tooth extraction Family History Father Diabetes Heart attack Asthma Maternal Grandmother Diabetes HTN (hypertension) Parkinson disease Breast cancer Mother Diabetes Family history of diabetes mellitus Sister Asthma Maternal Grandfather Parkinson disease Social History Household Members: Children Housing: Condominium Are you a primary rn intensive care unit to a significant other at home: No Do you presently have visiting nurse 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 (gun 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) Alcohol intake: never Patient Tobacco Use Status: Never used Tobacco Second Hand Smoke Exposure: Yes (Neighbors) service: No Current occupational status: disabled Sexual orientation: Straight/Heterosexual Gender identity: Female Female Reproductive History Menstrual Age of Menarche: 13 Review of Systems Const Denies fatigue, Denies fever(s), Denies night sweats, Reports poor appetite and Denies weight loss ENT Reports Normal hearing present, Denies dental pain, Reports dysphagia, Denies hearing loss, Denies mouth pain, Denies odynophagia, Denies throat swelling, Denies tongue swelling and Reports other (Dentition adequate) Card Reports no additional complaints Resp Reports no additional complaints GI Denies abdominal pain, Denies melena, Denies bloating, Denies hematochezia, Reports constipation, Denies GI cramping, Reports dysphagia, Denies excessive flatus, Denies early satiety, Reports heartburn, Denies diarrhea, Reports nausea, Denies odynophagia, Denies vomiting and Denies hematemesis Musc Reports myalgias Skin/Breast Denies pruritus, Denies lesions, Denies rash and Denies jaundice Neuro Reports Normal hearing present and Denies Abnormal speech present Psych Reports anxiety Endo Denies fatigue Aller/Immun Denies throat swelling and Denies tongue swelling Physical Exam Vital Signs: Last Vital Signs Pulse 86 01/01/23 15:05 BP 123/63 01/01/23 15:05 BMI result Body Mass Index 35.3 Const General: cooperative, no acute distress, well developed and well groomed Nutritional Appearance: well nourished and obese Orientation/consciousness: oriented to person, oriented to place and oriented to time Limitations: language barrier HEENT Head: Yes normocephalic and Yes atraumatic Eyes General: appearance normal, both eyes and all related structures Pupils: Equal, round and reactive pupils present Neck Neck: Yes normal visual inspection and Yes no lymphadenopathy Thyroid: Thyroid normal Resp Effort & Inspection: normal respiratory effort and able to speak in complete sentences Auscultation: clear to auscultation bilaterally Cardio Rate: regular rate Rhythm: regular rhythm Heart sounds: Normal, physiologic split S2 sound present Peripheral pulses: radial pulses present and posterior tibial pulses present GI Inspection: No distended, Yes Abdominal panniculus present and Yes obesity Palpation (GI): Soft to palpation, nontender, no guarding, not rigid and No hepatosplenomegaly present Percussion: Yes normal to percussion Auscultation: normal bowel sounds Rectal Exam - Female: deferred Skin General skin exam: no rashes or lesions noted, turgor normal, skin not dry, no jaundice, No spider nevi and no striae Rashes: no rashes Nails: normal Neuro General: oriented to person, oriented to place and oriented to time Cranial nerves: Yes Equal, round and reactive pupils present and Yes Normal hearing present Speech: No Abnormal speech present Extrem General: Yes normal to inspection, No clubbing, No cyanosis and No edema Psych Appearance: grossly normal and well kempt Mental Status: mental status grossly normal Speech and movement: Normal speech and movement present Affect: normal affect Attitude: cooperative Thought process: Normal thought process present and not confabulating Thought content: Normal thought content present Insight: Limited insight present (Psych) Judgement: Limited judgement present (Psych) Assessment & Plan Assessment & Plan (1) Oropharyngeal dysphagia: Code(s): R13.12 - Dysphagia, oropharyngeal phase Plan: [place] #Derik Live She is here with a male family member who is supportive. She saw the ENT and he told her that her swallowing problems were related to anxiety. They are sending her for some type of therapy, but she is not sure what. She also wanted to address her allergy problems with this provider, but she did not feel he listened to her. (Her grandfather had Parkinsons disease, severe osteoporosis with fractures runs in the family, and she has body wide muscle aches and respiratory difficulties.) I will provide referrals to neurology and rheumatology and aks her to go for the labs for myositis - she will. She was not aware of the lab. Orders CK, Total+Isoenzymes, Serum 11/22/22 R13.12 - Dysphagia, oropharyngeal phase, M79.10 - Myalgia, unspecified site ? Myositis Assess JO1 Ab 11/22/22 R13.12 - Dysphagia, oropharyngeal phase, M79.10 - Myalgia, unspecified site ? She is c/o nausea but is not taking the reglan scheduled qidachs - so I encourage her to do so again explaining the dual role of this medicine and not to take it prn for nausea. She has normal BM's alt with [facility]. She is c/o some rectal burning and I will provide a roid cream. ROV 6 weeks to eavl taking reglan qidachs. (2) Myalgia: Code(s): M79.10 - Myalgia, unspecified site (3) Irritable bowel syndrome with constipation: Code(s): K58.1 - Irritable bowel syndrome with constipation (4) GERD (gastroesophageal reflux disease): Code(s): K21.9 - Gastro-esophageal reflux disease without esophagitis Qualifiers: Esophagitis presence: esophagitis presence not specified Qualified Code(s): K21.9 - Gastro-esophageal reflux disease without esophagitis (5) Gastroparesis: Code(s): K31.84 - Gastroparesis (6) Cricopharyngeal hypertrophy: Code(s): J39.2 - Other diseases of pharynx Orders: Referrals Neurology Referral J39.2 - Other diseases of pharynx, R13.12 - Dysphagia, oropharyngeal phase Rheumatology Referral J39.2 - Other diseases of pharynx, M79.10 - Myalgia, unspecified site Medications: New hydrocortisone 2.5% (Proctosol HC) BE SURE TO INCLUDE RECTAL APPICATOR!! 1 appl NE BID 30 grams 6RF hemorrhoids K64.9 - Unspecified hemorrhoids Coding Level of Care Code Est Pt Level 4 (91454) Diagnoses Oropharyngeal dysphagia R13.12 Myalgia M79.10 Irritable bowel syndrome with constipation K58.1 GERD (gastroesophageal reflux disease) K21.9 Esophagitis presence: esophagitis presence not specified Gastroparesis K31.84 Cricopharyngeal hypertrophy J39.2
[2023-01-01 15:05] VITALS: BP 123/63; PULSE 86; BMI 35.3
== END 2023-01-01 16:01 | disposition home or self-care (01) ==
PROVIDERS: PCP Student in an Organized Health Care Education/Training Program; Visit Provider Nurse Practitioner
DX: R13.12 Dysphagia, oropharyngeal phase (principal); M79.10 Myalgia, unspecified site; K58.1 Irritable bowel syndrome with constipation; K21.9 Gastro-esophageal reflux disease without esophagitis; K31.84 Gastroparesis; J39.2 Other diseases of pharynx
CPT/HCPCS: 99214

== ENCOUNTER → 2023-01-01 14:54 | Outpatient (BNVA) | payer MEDICAID, SELFPAY | PROVIDERS: PCP Student in an Organized Health Care Education/Training Program; Visit Provider Nurse Practitioner | DX: R13.12 Dysphagia, oropharyngeal phase (principal); J39.2 Other diseases of pharynx; K21.9 Gastro-esophageal reflux disease without esophagitis; K58.1 Irritable bowel syndrome with constipation; M79.10 Myalgia, unspecified site; K64.9 Unspecified hemorrhoids | CPT/HCPCS: 99214 ==

== ENCOUNTER 2023-01-11 13:08 | Outpatient (REF) | payer MEDICAID, SELFPAY ==
[2023-01-15 20:23] LABS: CK-BB None Detected (None Detected); CK-MB 0 % (<5); CK-MM 78 % (95-100); Creatine Kinase,Total,Serum 55 U/L (29-143)
[2023-01-24 14:48] LABS: EJ Autoantibodies NOT DETECTED (NOT DETECTED); JO-1 Antibody <1.0 NEG AI (<1.0 NEGATIVE); MI 2 Autoantibodies NOT DETECTED (NOT DETECTED); OJ Autoantibodies NOT DETECTED (NOT DETECTED); PL 12 Autoantibodies NOT DETECTED (NOT DETECTED); PL 7 Autoantibodies NOT DETECTED (NOT DETECTED)
== END 2023-01-11 13:09 | disposition home or self-care (01) ==
LOC: HO.LAB 13:08
PROVIDERS: Visit Provider Nurse Practitioner
DX: M79.10 Myalgia, unspecified site (principal); R13.12 Dysphagia, oropharyngeal phase; R23.8 Other skin changes; D64.9 Anemia, unspecified
CPT/HCPCS: 36415; 82552

== ENCOUNTER 2023-01-24 12:47 | Outpatient (REF) | payer MEDICAID, SELFPAY ==
--- NOTE | ~2023-01-24 | US_ITS ---
EXAMINATION: US RETROPERITONEAL LIMITED (RENAL ONLY) CLINICAL INFORMATION: Calculus of kidney. COMPARISON: X-ray abdomen KUB 01/24/2023. Ultrasound abdomen complete 08/08/2022. Ultrasound retroperitoneal limited (renal only) 07/20/2022. CT abdomen and pelvis without contrast 05/29/2019. TECHNIQUE: Real-time imaging of the kidneys. FINDINGS: RIGHT KIDNEY: 11.1 x 4.3 x 5.5 cm (SAG x AP x TRV). The kidney is normal in size, contour, and echogenicity. Renal cortical thickness is normal. No calculi or focal parenchymal lesions. No hydronephrosis. LEFT KIDNEY: 10.7 x 4.4 x 5.6 cm (SAG x AP x TRV). The kidney is normal in size, contour, and echogenicity. Renal cortical thickness is normal. No focal parenchymal lesions or hydronephrosis. At the upper pole, a 4 mm nonobstructing calculus is seen, with twinkle artifact. At the interpolar aspect, a 4 mm nonobstructing calculus is seen, with twinkle artifact. US/US renal BI IMPRESSION: Nonobstructing left renal calculi are seen. No right renal calculus is seen. No hydronephrosis is noted bilaterally.
--- NOTE | ~2023-01-24 | XR_ITS ---
EXAMINATION: XR ABDOMEN KUB CLINICAL INDICATION: Calculus of kidney COMPARISON: CT abdomen and pelvis without contrast 05/29/2019 TECHNIQUE: AP view of the abdomen. FINDINGS: There is scattered stool and gas seen in the colon without any significant distention. The small bowel loops are normal. No radiopaque calculi. There is no organomegaly. The SI joints and hip joints are normal. No fracture or dislocation seen. There is partial right sacralization of L5 vertebra. XR/XR KUB IMPRESSION: 1. Mild constipation. No radiopaque calculi seen. 2. Partial right sacralization of L5 vertebra.
== END 2023-01-24 12:48 | disposition home or self-care (01) ==
LOC: HO.US 12:47
PROVIDERS: PCP Student in an Organized Health Care Education/Training Program; Visit Provider Nurse Practitioner Family
DX: N20.0 Calculus of kidney (principal)
CPT/HCPCS: 74018; 76775

== ENCOUNTER 2023-01-29 15:00 | Outpatient (RCR) | payer MEDICAID, SELFPAY | END 2023-01-30 13:35 | disposition home or self-care (01) | LOC: HO.PT 15:00 | PROVIDERS: PCP Student in an Organized Health Care Education/Training Program; Visit Provider Physician Assistant | DX: M25.872 Other specified joint disorders, left ankle and foot (principal) | CPT/HCPCS: 97110; 97162 ==

== ENCOUNTER 2023-02-08 12:33 | Outpatient (AMB) | payer MEDICAID, SELFPAY ==
[2023-02-08 12:38] VITALS: BP 103/61; PULSE 91; BMI 35.6
--- NOTE | 2023-02-08 12:38 | MHC.OFFVIS ---
Intake Vital Signs 02/08/23 12:38 Height 4 ft 11 in Weight 176 lb 5.917 oz BMI 35.6 BP 103/61 Blood Pressure Location Lt brachial Position Sitting Pulse 91 Intake Visit Reasons: 6 Week Follow Up Intake Note: Patient presents to in office visit today in 6 weeks follow up.. Patient reports she went to see ENT and was diagnosed with irritable Larynx Syndrome. Neurologist is DR. Ramos per patient. Patient reports recent X rays done showed constipation. 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 Accompanied by: Self / Same As Patient Allergies Iodinated Contrast Media [IV DYE, IODINE CONTAINING CONTRAST ] Allergy (Intermediate, Verified 02/08/23 12:45) SHORTNESS OF BREATH citalopram [From CELEXA] Allergy (Unknown, Verified 02/08/23 12:45) VOMITTING duloxetine [Cymbalta] Allergy (Unknown, Verified 02/08/23 12:45) unknown morphine [MORPHINE] Allergy (Unknown, Verified 02/08/23 12:45) PALPITATIONS-PT PREFERS NOT TO TAKE tramadol [TRAMADOL] Allergy (Unknown, Verified 02/08/23 12:45) VOMITING HPI 6 Week Follow Up HPI Details Assessment & Plan (1) Oropharyngeal dysphagia: ?Code(s): R13.12 - Dysphagia, oropharyngeal phase ?Plan: Citizen Of [place] #Caitlin Live I advise her of the barium swallow results and her ENT appt is in December. I explain about the cricopharyngeal hypertrophy. This would be treated with either botox injections or a myotomy. However, she likely needs a work up also with a neurologist and/or a dental laboratory manager as this at times is associated with other diseases such as: FROM UPTODATE' (The neurologic examination may also detect disorders with more subtle physical findings. As an example, decreased proximal strength may indicate dermatomyositis or polymyositis. Hoarseness of the voice may indicate vocal cord paresis or paralysis. Bilateral ptosis, muscle weakness, or repetitive efforts at swallowing are other signs suggestive of muscle disease. The presence of cogwheeling, rigidity, or a shuffling gait may indicate Parkinson disease. Motor and sensory abnormalities should raise the suspicion for multiple sclerosis, which is frequently associated with oropharyngeal dysphagia, but usually in the setting of longer disease duration and significant motor disability) Her grandfather had Parkinsons disease, severe osteoporosis with fractures runs in the family, and she has body wide muscle aches and respiratory difficulties. She is using the creon and is feeling better with the stomach and bloating problems. However, she still will have episodes of severe bloating that will resolve after a few hours but she does not pass gas (??).? She continues on her Dexilant, dicyclomine 10 mg, famotidine, and Reglan 5 mg (we could not increase the dose related to dizziness) and she also has simethicone. I need to research who it is best to refer her to for overall dx. She sees a neuro but only for dizziness/syncope but likely will not see him for 6 months - the office is on the 4th floor here. At this point, I want to see her after the ENT appt. 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 Return office visit after her ENT appointment which is 12/28.? I will be interested to see what the superintendent plant findings in view point is.. (2) Myalgia: ?Code(s): M79.10 - Myalgia, unspecified site ? ? ? Orders: Orders CK, Total+Isoenzym es, Serum 11/22/22 R13.12 - Dysphagia , oropharyngeal ph ase, M79.10 - Myal swetha, unspecified s ite ? Myositis Assess DAVON 1 Ab 11/22/22 R13.12 - Dysphagia , oropharyngeal ph ase, M79.10 - Myal swetha, unspecified s ite ? Laboratory Tests 01/11/23 01/11/23 13:16 13:16 Total Creatine Kin ase 55 CK-MM (CK-3) 78 L CK-MB (CK-2) 0 CK-BB (CK-1) None Detected CK Isoenzymes Inte rp see note EJ Antibody NOT DETECTED Ku Antibody NOT DETECTED OJ Antibody NOT DETECTED Mi-2 Myostitis Ab Panel NOT DETECTED PL-7 Antibody NOT DETECTED PL-12 Antibody NOT DETECTED SRP Ab NOT DETECTED Myositis Asses DAVON- 1 Ab <1.0 NEG TODAY'S VISIT Citizen [place] #Oz Z[place]aga She has a a new ex of irritable larynx syndrome. This was made by her ENT. The ENT also recommended that we do an EGD as this conditions is sometimes amenable to dilation. We will get this scheduled. She had an episode of her hands swelling and turning red and itching then turning white. She was seen by Dr. Sandra, and they wanted her to present to rheumatology, but they dismissed her over the phone with FMS. She likely needs to be referred to a tertiary center for evaluation. She continues on her Creon, Dexilant, dicyclomine 10 mg, famotidine, and Reglan 5 mg (we could not increase the dose related to dizziness) and she also has simethicone. Return office visit in 3 months [facility] Medical History NURIA positive Fibroadenoma Fibromyalgia History of thyroiditis Hx of lipoma Lipoma Obesity Vitamin D deficiency Surgical History History of esophagogastroduodenoscopy (EGD) History of wisdom tooth extraction Family History Father Diabetes Heart attack Asthma Maternal Grandmother Diabetes HTN (hypertension) Parkinson disease Breast cancer Mother Diabetes Family history of diabetes mellitus Sister Asthma Maternal Grandfather Parkinson disease Social History Household Members: Children Housing: Condominium Are you a primary day care supervisor to a significant other at home: No Do you presently have visiting nurse 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 (narcotics and/or vice detective) Alcohol intake: never Patient Tobacco Use Status: Never used Tobacco Second Hand Smoke Exposure: Yes (Neighbors) service: No Current occupational status: disabled Sexual orientation: Straight/Heterosexual Gender identity: Female Female Reproductive History Menstrual Age of Menarche: 13 Review of Systems Const Denies fatigue, Denies fever(s), Denies night sweats, Denies poor appetite and Denies weight loss ENT Reports Normal hearing present, Denies dental pain, Reports dysphagia, Denies hearing loss, Denies mouth pain, Denies odynophagia, Denies throat swelling, Denies tongue swelling and Reports other (Dentition adequate) Card Reports no additional complaints Resp Reports no additional complaints GI Denies abdominal pain, Denies melena, Reports bloating, Denies hematochezia, Denies constipation, Denies GI cramping, Reports dysphagia, Denies excessive flatus, Denies early satiety, Reports heartburn, Reports diarrhea, Denies nausea, Denies odynophagia, Denies vomiting and Denies hematemesis Skin/Breast Denies pruritus, Denies lesions, Denies rash and Denies jaundice Neuro Reports Normal hearing present and Denies Abnormal speech present Psych Reports anxiety Endo Denies fatigue Aller/Immun Denies throat swelling and Denies tongue swelling Physical Exam Vital Signs: Last Vital Signs Pulse 91 02/08/23 12:38 BP 103/61 02/08/23 12:38 BMI result Body Mass Index 35.6 Const General: cooperative, no acute distress, well developed and well groomed Nutritional Appearance: well nourished and obese Orientation/consciousness: oriented to person, oriented to place and oriented to time Limitations: language barrier HEENT Head: Yes normocephalic and Yes atraumatic Eyes General: appearance normal, both eyes and all related structures Pupils: Equal, round and reactive pupils present Neck Neck: Yes normal visual inspection and Yes no lymphadenopathy Thyroid: Thyroid normal Resp Effort & Inspection: normal respiratory effort and able to speak in complete sentences Auscultation: clear to auscultation bilaterally Cardio Rate: regular rate Rhythm: regular rhythm Heart sounds: Normal, physiologic split S2 sound present Peripheral pulses: radial pulses present and posterior tibial pulses present GI Inspection: No distended, No Abdominal panniculus present and Yes obesity Palpation (GI): Soft to palpation, nontender, no guarding, not rigid and No hepatosplenomegaly present Percussion: Yes normal to percussion Auscultation: normal bowel sounds Rectal Exam - Female: deferred Skin General skin exam: no rashes or lesions noted, turgor normal, skin not dry, no jaundice, No spider nevi and no striae Rashes: no rashes Nails: normal Neuro General: oriented to person, oriented to place and oriented to time Cranial nerves: Yes Equal, round and reactive pupils present and Yes Normal hearing present Speech: No Abnormal speech present Extrem General: Yes normal to inspection, No clubbing, No cyanosis and No edema Psych Appearance: grossly normal and well kempt Mental Status: mental status grossly normal Speech and movement: Normal speech and movement present Affect: normal affect Attitude: cooperative Thought process: Normal thought process present and not confabulating Thought content: Normal thought content present Insight: Limited insight present (Psych) Judgement: Limited judgement present (Psych) Assessment & Plan Assessment & Plan (1) Irritable larynx syndrome: Comment: DX via her ENT Code(s): J38.7 - Other diseases of larynx Plan: Citizen [place] #Oz Live She has a a new ex of irritable larynx syndrome. This was made by her ENT. The ENT also recommended that we do an EGD as this conditions is sometimes amenable to dilation. We will get this scheduled. She had an episode of her hands swelling and turning red and itching then turning white. She was seen by Dr. Sandra, and they wanted her to present to rheumatology, but they dismissed her over the phone with FMS. She likely needs to be referred to a tertiary center for evaluation. She continues on her Creon, Dexilant, dicyclomine 10 mg, famotidine, and Reglan 5 mg (we could not increase the dose related to dizziness) and she also has simethicone. Return office visit in 3 months (2) Oropharyngeal dysphagia: Code(s): R13.12 - Dysphagia, oropharyngeal phase (3) Irritable bowel syndrome with constipation: Code(s): K58.1 - Irritable bowel syndrome with constipation (4) GERD (gastroesophageal reflux disease): Code(s): K21.9 - Gastro-esophageal reflux disease without esophagitis Qualifiers: Esophagitis presence: esophagitis presence not specified Qualified Code(s): K21.9 - Gastro-esophageal reflux disease without esophagitis (5) Gastroparesis: Code(s): K31.84 - Gastroparesis (6) Toe swelling: Code(s): M79.89 - Other specified soft tissue disorders (7) NURIA positive: Comment: 2020: 1:160, anti dna, nicholas, ESR, CRP all wnl Code(s): R76.8 - Other specified abnormal immunological findings in serum (8) CRPS (complex regional pain syndrome), upper limb: Code(s): G90.519 - Complex regional pain syndrome I of unspecified upper limb (9) Cricopharyngeal hypertrophy: Code(s): J39.2 - Other diseases of pharynx Orders: Orders EGD with Albarado - GI Use Only 02/08/23 J38.7 - Other diseases of larynx, R13.12 - Dysphagia, oropharyngeal phase Uric Acid 02/08/23 M79.89 - Other specified soft tissue disorders Referrals Rheumatology Referral R76.8 - Other specified abnormal immunological findings in serum, G90.519 - Complex regional pain syndrome I of unspecified upper limb, J39.2 - Other diseases of pharynx, M79.89 - Other specified soft tissue disorders Coding Level of Care Code Est Pt Level 3 (75023) Diagnoses Irritable larynx syndrome J38.7 Oropharyngeal dysphagia R13.12 Irritable bowel syndrome with constipation K58.1 Gastroesophageal reflux disease, unspecified whether esophagitis present K21.9 Esophagitis presence: esophagitis presence not specified Gastroparesis K31.84 Toe swelling M79.89 NURIA positive R76.8 CRPS (complex regional pain syndrome), upper limb G90.519 Cricopharyngeal hypertrophy J39.2
== END 2023-02-08 13:24 | disposition home or self-care (01) ==
PROVIDERS: PCP Student in an Organized Health Care Education/Training Program; Visit Provider Nurse Practitioner
DX: J38.7 Other diseases of larynx (principal); R13.12 Dysphagia, oropharyngeal phase; K58.1 Irritable bowel syndrome with constipation; K21.9 Gastro-esophageal reflux disease without esophagitis; K31.84 Gastroparesis; M79.89 Other specified soft tissue disorders; R76.8 Other specified abnormal immunological findings in serum; G90.519 Complex regional pain syndrome I of unspecified upper limb; J39.2 Other diseases of pharynx
CPT/HCPCS: 99213

== ENCOUNTER 2023-02-08 12:33 | Outpatient (REF) | payer MEDICAID, SELFPAY ==
[2023-02-08 16:49] LABS: Uric Acid 3.4 mg/dL (2.4-5.7)
== END 2023-02-08 12:34 | disposition home or self-care (01) ==
LOC: HO.LAB 12:33
PROVIDERS: PCP Student in an Organized Health Care Education/Training Program; Visit Provider Nurse Practitioner
DX: M79.89 Other specified soft tissue disorders (principal); J38.7 Other diseases of larynx; R13.10 Dysphagia, unspecified; K58.1 Irritable bowel syndrome with constipation; K21.9 Gastro-esophageal reflux disease without esophagitis; K31.84 Gastroparesis; R76.8 Other specified abnormal immunological findings in serum; J39.2 Other diseases of pharynx
CPT/HCPCS: 36415; 84550; 99212

== ENCOUNTER 2023-03-04 13:22 | Outpatient (AMB) | payer MEDICAID, SELFPAY ==
--- NOTE | 2023-03-04 13:23 | A.OFFVIS_ITS ---
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 Required: Yes Allergies Iodinated Contrast Media [IV DYE, IODINE CONTAINING CONTRAST ] Allergy (Intermediate, Verified 03/04/23 13:54) SHORTNESS OF BREATH citalopram [From CELEXA] Allergy (Unknown, Verified 03/04/23 13:54) VOMITTING duloxetine [Cymbalta] Allergy (Unknown, Verified 03/04/23 13:54) unknown morphine [MORPHINE] Allergy (Unknown, Verified 03/04/23 13:54) PALPITATIONS-PT PREFERS NOT TO TAKE tramadol [TRAMADOL] Allergy (Unknown, Verified 03/04/23 13:54) VOMITING Medication List - Last Reconciled 03/04/23 by NIC Davey- albuterol sulfate 90 mcg/actuation (Ventolin HFA) 1 inh inhalation QID azelastine 1 spray intranasal DAILY lckbwfuflr-vcmlzxvknyqvw-puji 50-325-40 mg 1 tab PO Q8H PRN clotrimazole-betamethasone 1-0.05 % 1 appl topical BID 5 days dexlansoprazole (Dexilant) 60 mg PO DAILY 30 days diclofenac sodium 1% 4 grams topical BID dicyclomine 10 mg PO TID famotidine (Pepcid) 40 mg PO BEDTIME ibuprofen 400 mg PO Q4-6H PRN loratadine (Children's Allergy Relief (loratadine)) 10 mL PO DAILY lorazepam 1 mg PO BEDTIME PRN metoclopramide HCl (Reglan) 5 mg PO QIDACHS paroxetine HCl 20 mg PO DAILY pyridoxine (vitamin B6) 100 mg PO DAILY 90 days simethicone 180 mg PO BID 30 days trazodone 50 mg PO BEDTIME PRN HPI HPI Comments History of Present Illness Details Ambika is a pleasant 37-year-old female patient of Dr. Murray. She has a past medical history of vitamin-D deficiency, obesity, thyroiditis, fibroadenoma, lipoma, fibromyalgia, and NURIA positive. She is being followed up on today via telehealth for her history of nephrolithiasis. She discusses changing her appoitment from in office to phone due to recent diagnosis of COVID approximately 5 days ago. Recent renal imaging results reviewed with the patient today. Right kidney with no calculi, lesions, and or hydronephrosis noted. Left kidney with no lesions or hydronephrosis. At the upper pole a 4 mm nonobstructing calculus is seen, with twinkle artifact. At the inter pole aspect of 4 mm nonobstructing calculus is seen. When asked patient denies any bothersome urinary issues at this time. Discussed surveillance monitoring verses surgical intervention. Patient denies flank pain, hematuria, changes in urinary habits, fever, and or chills. When asked she reports to be happy with current voiding parameters. Discussed and stressed at length the importance of drinking plenty of water daily. She discusses her upcoming appointment with Rheumatology at [facility]. She otherwise offers no other issues or concerns at this time. [facility] Medical History Vitamin D deficiency Obesity History of thyroiditis Fibroadenoma Lipoma Fibromyalgia NURIA positive Hx of lipoma Surgical History History of esophagogastroduodenoscopy (EGD) History of wisdom tooth extraction Family History Father Diabetes Heart attack Asthma Maternal Grandmother Diabetes HTN (hypertension) Parkinson disease Breast cancer Mother Diabetes Family history of diabetes mellitus Sister Asthma Maternal Grandfather Parkinson disease Social History Household Members: Children Housing: Condominium Are you a primary career services manager to a significant other at home: No Do you presently have visiting nurse 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 (injury prevention coordinator) Alcohol intake: never Patient Tobacco Use Status: Never used Tobacco Second Hand Smoke Exposure: Yes (Neighbors) service: No Current occupational status: disabled Sexual orientation: Straight/Heterosexual Gender identity: Female Female Reproductive History Menstrual Age of Menarche: 13 Review of Systems Const Reports as per HPI Eyes Reports no additional complaints ENT Reports no additional complaints Card Details: Reports following with Cardiology regarding history of palpitations Resp Reports no additional complaints GI Details: Reports following with Gastroenterology for her gallbladder Reports as per HPI Musc Reports as per HPI Neuro Reports no additional complaints Psych Reports no additional complaints Endo Reports no additional complaints Antonino/Lymph Reports no additional complaints Aller/Immun Reports no additional complaints Physical Exam Const General: cooperative Orientation/consciousness: patient oriented x3 Resp Effort & Inspection: able to speak in complete sentences Neuro General: patient oriented x3 Psych Speech and movement: Clear speech present Attitude: cooperative Thought process: Normal thought process present Thought content: Normal thought content present Insight: Good insight present (Psych) Judgement: Good judgement present (Psych) Results Reviewed Results Reviewed: Date of Service: 01/24/23 EXAMINATION: US RETROPERITONEAL LIMITED (RENAL ONLY) CLINICAL INFORMATION: Calculus of kidney. COMPARISON: X-ray abdomen KUB 01/24/2023. Ultrasound abdomen complete 08/08/2022. Ultrasound retroperitoneal limited (renal only) 07/20/2022. CT abdomen and pelvis without contrast 05/29/2019. TECHNIQUE: Real-time imaging of the kidneys. FINDINGS: RIGHT KIDNEY: 11.1 x 4.3 x 5.5 cm (SAG x AP x TRV). The kidney is normal in size, contour, and echogenicity. Renal cortical thickness is normal. No calculi or focal parenchymal lesions. No hydronephrosis. LEFT KIDNEY: 10.7 x 4.4 x 5.6 cm (SAG x AP x TRV). The kidney is normal in size, contour, and echogenicity. Renal cortical thickness is normal. No focal parenchymal lesions or hydronephrosis. At the upper pole, a 4 mm nonobstructing calculus is seen, with twinkle artifact. At the interpolar aspect, a 4 mm nonobstructing calculus is seen, with twinkle artifact. IMPRESSION: Nonobstructing left renal calculi are seen. No right renal calculus is seen. No hydronephrosis is noted bilaterally. Assessment & Plan Assessment & Plan (1) Recurrent nephrolithiasis: Code(s): N20.0 - Calculus of kidney Plan Recent renal imaging results reviewed with the patient today; as noted above. Will continue with interval surveillance imaging Discussed, educated, encouraged on the importance of drinking plenty of water daily. Continue vitamin B6 as discussed and prescribed. Discussed importance of seeking medical treatment if symptoms of COVID worsen Patient denies any bothersome urinary issues or concerns at this time. Renal ultrasound in 6 months. Follow-up in 6 months with imaging to be completed prior; or sooner with any issues, concerns, and or questions. Orders: Orders US renal BI 6 Months N20.0 - Calculus of kidney Medications: New pyridoxine (vitamin B6) 100 mg PO DAILY 90 days 90 tabs 3RF N20.0 - Calculus of kidney Patient Instructions: The patient had an opportunity to ask questions regarding the treatment plan. All questions were answered. Physical exam, labs, and imaging were discussed and reviewed in detail. As well as risks, benefits, and discussion of treatment choices. No major barriers to understanding were identified. The patient expressed understanding and agreement with the above treatment plan. The patient was made aware they should contact our office by phone for worsening of their current condition, the appearance of new symptoms, or with any questions or concerns. Compliance is encouraged with any medications and follow up testing that is ordered. It is a privilege to be allowed the opportunity to participate in? your urological care.? Again, if you have any questions or concerns If you have any questions or concerns please do not hesitate to contact me. The office is [phone]. This note is constructed using voice recognition software. While every effort has been made to ensure accuracy rugby league footballer errors may have been included. Yours sincerely, MINERVA Davey Telehealth Telehealth Location of provider rendering services: practice address Location of patient: address on file Patient Identification confirmed using: Name, : Yes Telehealth method: voice only Patient verbally consented to treatment: Yes Patient verbally consented to billing insurance company: Yes Patient informed of any privacy concerns related to visit: Yes Minutes spent on Phone/Video with Pt.: 20 Coding Level of Care Code Tele Est Pt Level 3 (23860) Diagnoses Recurrent nephrolithiasis N20.0 Time Spent (min) 20
== END 2023-03-04 14:00 | disposition home or self-care (01) ==
LOC: HO.HUSH 13:22
PROVIDERS: PCP Student in an Organized Health Care Education/Training Program; Visit Provider Nurse Practitioner Family
DX: N20.0 Calculus of kidney (principal)
CPT/HCPCS: 99213

== ENCOUNTER → 2023-03-04 13:22 | Outpatient (BNVA) | payer MEDICAID, SELFPAY | PROVIDERS: PCP Student in an Organized Health Care Education/Training Program; Visit Provider Nurse Practitioner Family ==

== ENCOUNTER 2023-03-11 14:00 | Outpatient (AMB) | payer MEDICAID, SELFPAY ==
--- NOTE | 2023-03-11 14:08 | A.OFFVIS_ITS ---
Intake Vital Signs 03/11/23 14:09 Height 4 ft 11 in Weight 171 lb 1.259 oz BMI 34.5 BP 118/76 Blood Pressure Location Lt brachial Position Sitting Pulse 95 Intake Visit Reasons: 1 YEAR F/U Intake Note: 1 year follow up w EKG Electrician Supervisor Required: Yes Electrician Supervisor Language: Ugandan Accompanied by: Self / Same As Patient Allergies Iodinated Contrast Media [IV DYE, IODINE CONTAINING CONTRAST ] Allergy (Intermediate, Verified 03/11/23 14:10) SHORTNESS OF BREATH citalopram [From CELEXA] Allergy (Unknown, Verified 03/11/23 14:10) VOMITTING duloxetine [Cymbalta] Allergy (Unknown, Verified 03/11/23 14:10) unknown morphine [MORPHINE] Allergy (Unknown, Verified 03/11/23 14:10) PALPITATIONS-PT PREFERS NOT TO TAKE tramadol [TRAMADOL] Allergy (Unknown, Verified 03/11/23 14:10) VOMITING Medication List - Last Reconciled 03/11/23 by Carrillo Estrella MD albuterol sulfate 90 mcg/actuation (Ventolin HFA) 1 inh inhalation QID azelastine 1 spray intranasal DAILY drgfiwpktm-dfdprqelkfmyr-hgau 50-325-40 mg 1 tab PO Q8H PRN clotrimazole-betamethasone 1-0.05 % 1 appl topical BID 5 days dexlansoprazole (Dexilant) 60 mg PO DAILY 30 days diclofenac sodium 1% 4 grams topical BID dicyclomine 10 mg PO TID famotidine (Pepcid) 40 mg PO BEDTIME ibuprofen 400 mg PO Q4-6H PRN loratadine (Children's Allergy Relief (loratadine)) 10 mL PO DAILY lorazepam 1 mg PO BEDTIME PRN metoclopramide HCl (Reglan) 5 mg PO QIDACHS paroxetine HCl 20 mg PO DAILY pyridoxine (vitamin B6) 100 mg PO DAILY 90 days simethicone 180 mg PO BID 30 days trazodone 50 mg PO BEDTIME PRN HPI HPI Comments History of Present Illness Details 37-year-old female who is referred to us for syncope. She is saying that her boyfriend was giving her massage and she started feeling very warm and then passed out. She remembers that 30 minutes later her boyfriend was trying to talk to her and wake her up. She said she saw Neurology and no obvious cause has been found. She has been told that this was not a seizure. She has vertigo and takes meclizine off and on. She also is complaining of some chest discomfort. This is quite atypical and happens at rest and feels like a pressure-like feeling. She also gets it with activities too. Seems fairly anxious and has clearly some anxiety issues too. She was referred for echocardiography which was sent she normal. She also had exercise stress test which did not show any EKG changes or perfusion defect. She is here for follow-up now. She is saying she has not had further syncope. She is complaining that off and on she gets dyspnea and people around her noticed that she is short of breath. She has background of asthma many years ago. She also gets some palpitations and tachycardia when she is doing activities. She also has background of iron-deficiency anemia. 03/11/23: She returns for f/u. She is sa shukri that 2 weeks ago she was not feeling well and tested positive for COVID. She said 5 days later she tested herself again but was negative at that time. Since then she has experienced some chest pains when a 1 episode last night which lasted 15 minutes which she describes like at Central tightness with shortness of breath. She also had 1 episode this morning. Her ECG in the clinic is abnormal compared to her last ECG from November 2021. She has sinus rhythm with T-wave inversions as well as ST depressions laterally. She is not hypertensive in the clinic and is denying any significant symptoms currently. Seems clearly very anxious too. [facility]LY [facility] Medical History Vitamin D deficiency Obesity History of thyroiditis Fibroadenoma Lipoma Fibromyalgia NURIA positive Hx of lipoma Surgical History History of esophagogastroduodenoscopy (EGD) History of wisdom tooth extraction Family History Father Diabetes Heart attack Asthma Maternal Grandmother Diabetes HTN (hypertension) Parkinson disease Breast cancer Mother Diabetes Family history of diabetes mellitus Sister Asthma Maternal Grandfather Parkinson disease Social History Household Members: Children Housing: Condominium Are you a primary manager urgent care to a significant other at home: No Do you presently have visiting 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) Alcohol intake: never Patient Tobacco Use Status: Never used Tobacco Second Hand Smoke Exposure: Yes (Neighbors) service: No Current occupational status: disabled Sexual orientation: Straight/Heterosexual Gender identity: Female Female Reproductive History Menstrual Age of Menarche: 13 Review of Systems Const Denies weakness ENT Denies dizziness Card Denies chest pain, Denies chest pain with activity, Denies syncope, Denies rapid heart rate, Denies pedal edema, Denies edema, Denies leg edema, Denies lightheadedness, Denies palpitations, Denies dyspnea, Denies dyspnea on exertion and Denies orthopnea Resp Denies cough, Denies dyspnea and Denies dyspnea on exertion GI Denies hematochezia and Denies change in stool character Musc Denies abnormal gait, Denies muscle cramps, Denies muscle weakness, Denies numbness, Denies radiating pain into limb and Denies tingling Neuro Denies abnormal gait, Denies dizziness, Denies syncope, Denies numbness, Denies tingling and Denies weakness Endo Denies palpitations Physical Exam Vital Signs: Last Vital Signs Pulse 95 03/11/23 14:09 BP 118/76 03/11/23 14:09 BMI result Body Mass Index 34.5 Office Procedures EKG Details: Sinus rhythm 95 beats per minute, normal axis, inferior and lateral ST depressions. QTC 462 milliseconds. [id number], Complete Assessment & Plan Assessment & Plan (1) Chest pain: Code(s): R07.9 - Chest pain, unspecified Plan [age] female who is returning for follow-up. She was previously seen for vasovagal syncope in 03/06/2020. She is now returning after recent COVID infection 2 weeks ago and chest pains. She is describing a central tightness that happens randomly and happened last night and today. Her ECG is abnormal and showing inferior lateral ST depressions. She said she has been sick with nausea and vomiting also and a lot of diarrhea. I do not know whether these changes are related to electrolytes or truly some direct effect of COVID-19 like myocarditis. She needs troponin checks and repeat EKG in few hours. I have discussed in detail with her and have advised her to go to the emergency department. I have updated the ER physician about her and potential plan going forward. She has significant anxiety problems as well as irritable laryngeal syndrome (she was told by ENT physician about this recently). Sending her to ER. Thank you for allowing me to participate in the care of your patient. Please feel free to contact me if you have any questions. Coding Level of Care Code Est Pt Level 4 (21421) Diagnoses Chest pain R07.9 CPT Codes EKG - CPT: 71167-[id number], Complete ([id number])
[2023-03-11 14:09] VITALS: BP 118/76; PULSE 95; BMI 34.5
== END 2023-03-11 14:41 | disposition home or self-care (01) ==
PROVIDERS: PCP Student in an Organized Health Care Education/Training Program; Visit Provider Internal Medicine Cardiovascular Disease
DX: R07.9 Chest pain, unspecified (principal)
CPT/HCPCS: 93010; 99214

== ENCOUNTER → 2023-03-11 14:00 | Outpatient (BNVA) | payer MEDICAID, SELFPAY | PROVIDERS: PCP Student in an Organized Health Care Education/Training Program; Visit Provider Internal Medicine Cardiovascular Disease | DX: R07.9 Chest pain, unspecified (principal) | CPT/HCPCS: 93005; 99212 ==

== ENCOUNTER 2023-03-11 14:43 | Emergency (ER) | payer MEDICAID, SELFPAY ==
--- NOTE | 2023-03-11 14:48 | ECG_ITS ---
Test Reason : ABNORMAL EKG Blood Pressure : / mmHG Vent. Rate : 093 BPM Atrial Rate : 093 BPM P-R Int : 132 ms QRS Dur : 080 ms QT Int : 348 ms P-R-T Axes : 059 038 -04 degrees QTc Int : 432 ms Normal sinus rhythm with sinus arrhythmia Septal infarct , age undetermined Nonspecific ST and T wave abnormality Abnormal ECG When compared with ECG of 29-MAY-2019 16:57, Septal infarct is now Present Referred By: Etelvina Guzman Electronically Signed By:JULI ALVARADO
[2023-03-11 15:11] VITALS: BMI 34.3
--- NOTE | 2023-03-11 15:11 | ED_ITS ---
HPI - General Adult General Chief complaint: Chest Pain Stated complaint: abnormal ekg sent in by Dr Estrella Time Seen by Provider: 03/11/23 14:58 Source: patient Mode of arrival: ambulatory Limitations: no limitations History of Present Illness HPI narrative: Patient comes to the emergency room from the cardiology office. Today, patient had a follow-up appointment with Dr. Estrella from Cardiology. Patient has history of syncope 2 years ago. Today, patient had a regular follow-up appointment and discussed with Dr. Markel miller that the patient has been having intermittent chest pain. Her EKG at the office, showed sinus rhythm with T-wave inversions as well as ST depressions laterally. Patient states that she had COVID 2 weeks ago, and for 2 weeks, patient has been having nausea vomiting and diarrhea. Related Data Home Medications Medication Instructions Recorded Confirmed lorazepam 1 mg tablet 1 mg PO BEDTIME PRN Anxiety 03/29/20 03/11/23 azelastine 137 mcg (0.1 %) nasal 1 spray intranasal DAILY 06/12/21 03/11/23 spray aerosol ibuprofen 400 mg tablet 400 mg PO Q4-6H PRN Pain 11/20/21 03/11/23 diclofenac sodium 1 % topical gel 4 g topical BID 07/30/22 03/11/23 trazodone 50 mg tablet 50 mg PO BEDTIME PRN 07/30/22 03/11/23 albuterol sulfate 90 mcg/actuation 1 inh inhalation QID 09/19/22 03/11/23 aerosol inhaler (Ventolin HFA) punzhqgnxc-xekjnrcceraxa-mazehjom 1 tab PO Q8H PRN 09/19/22 03/11/23 50 mg-325 mg-40 mg tablet loratadine 5 mg/5 mL oral solution 10 ml PO DAILY 09/19/22 03/11/23 (Children's Allergy Relief (loratadine)) paroxetine HCl 20 mg tablet 20 mg PO DAILY 09/19/22 03/11/23 dicyclomine 10 mg capsule 10 mg PO TID 02/08/23 03/11/23 Previous Rx's Medication Instructions Recorded clotrimazole-betamethasone 1 1 appl topical BID 5 days #45 grams 03/13/22 %-0.05 % topical cream famotidine 40 mg tablet (Pepcid) 40 mg PO BEDTIME #30 tabs 09/19/22 metoclopramide HCl 5 mg tablet 5 mg PO QIDACHS #120 tabs 09/19/22 (Reglan) simethicone 180 mg capsule 180 mg PO BID 30 days #60 caps 09/19/22 dexlansoprazole 60 mg 60 mg PO DAILY 30 days #90 caps 10/24/22 capsule,biphase delayed release (Dexilant) pyridoxine (vitamin B6) 100 mg 100 mg PO DAILY 90 days #90 tabs 03/04/23 tablet Allergies Allergy/AdvReac Type Severity Reaction Status Date / Time Iodinated Contrast Media Allergy Intermediate SHORTNESS Verified 03/11/23 14:10 [IV DYE, IODINE CONTAINING OF BREATH CONTRAST ] citalopram [From CELEXA] Allergy Unknown VOMITTING Verified 03/11/23 14:10 duloxetine [Cymbalta] Allergy Unknown unknown Verified 03/11/23 14:10 morphine [MORPHINE] Allergy Unknown PALPITATIONS-PT Verified 03/11/23 14:10 PREFERS NOT TO TAKE tramadol [TRAMADOL] Allergy Unknown VOMITING Verified 03/11/23 14:10 Review of Systems 2 Review of Systems: Constitutional : No Weight loss, No Fever, No Chills, No Night Sweats, No Fatigue, No Malaise ENT/Mouth : No Hearing loss, No Ear Pain, No Nasal Congestion, No Sinus Pain, No Hoarseness, No sore throat, No Rhinorrhea, No Swallowing Difficulty Eyes: No Eye Pain, No Swelling, No Redness, No Foreign Body, No Discharge, No Vision Changes Cardiovascular : Complaining of Chest Pain, No SOB, No Dyspnea on Exertion, No Orthopnea, No Edema, No Palpitations Respiratory : No Cough, No Sputum, No Wheezing, No Smoke Exposure, No Dyspnea Gastrointestinal : No Nausea, No Vomiting, No Diarrhea, No Constipation, No abdominal Pain, No Hematochezia, No Melena Genitourinary : no irregular bleeding, No Dysuria, No Urinary Frequency, No Hematuria, No Urinary Incontinence, No Urgency, No Flank Pain, No Urinary Flow Changes, No Hesitancy Musculoskeletal : No joint pain, No Myalgias, No Joint Swelling Skin : No Skin Lesions, No rash Neuro : No Weakness, No Numbness, No Paresthesias, No Loss of Consciousness, No Dizziness, No Headache Psych : No Anxiety/Panic, No Depression, No SI/HI/AH/VH, No Social Issues, Heme/Lymph: No Bruising, No Bleeding,No Lymphadenopathy Endocrine : No Polyuria, No Polydipsia, No Temperature Intolerance [facility] Past Medical History Medical History (Updated 03/11/23 @ 16:24 by Liat Ag MD) Recurrent nephrolithiasis Vitamin D deficiency Obesity History of thyroiditis Fibroadenoma Lipoma Fibromyalgia NURIA positive Hx of lipoma Surgical History History of esophagogastroduodenoscopy (EGD) History of wisdom tooth extraction Family History Family History Father Diabetes Heart attack Asthma Maternal Grandmother Diabetes HTN (hypertension) Parkinson disease Breast cancer Mother Diabetes Family history of diabetes mellitus Sister Asthma Maternal Grandfather Parkinson disease Social History Social History Household Members: Children [facility] Are you a primary rn transitional care to a significant other at home: No Do you presently have 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) Alcohol intake: never Patient Tobacco Use Status: Never used Tobacco Smoked in Last 30 Days: No Second Hand Smoke Exposure: Yes (Neighbors) Use of substances other than those prescribed or required for medical reasons: No Advance Directives: No Advance Directives Information Provided: Yes Patient : No service: No Current occupational status: disabled Sexual orientation: Straight/Heterosexual Gender identity: Female Physical Exam ED Vital Signs: Vital Signs - 24 hr 03/11/23 15:14 Temperature 98.9 F Pulse Rate 80 Respiratory Rate 16 Blood Pressure 117/72 Pulse Oximetry 100 Oxygen Delivery Method Room Air BMI result Body Mass Index 34.3 Const Other: Appearance: Alert. Oriented X3. No acute distress. Eyes: Pupils equal, round and reactive to light. ENT: Pharynx normal. Neck: Normal inspection. Neck supple. No lymph nodes noted. No crepitus CVS: Normal heart rate and rhythm. Pulses normal. Normal S1 and S2, soft +2 systolic murmur in left sternal border Respiratory: No respiratory distress. Breath sounds normal. No Wheezing. No rales Abdomen: Soft and nontender. No rigidity. No distention. Skin: Skin warm and dry. Normal skin color. Normal skin turgor. Extremities: No lower extremity edema. No Lacerations. No Rash Neuro: Oriented X 3. No motor deficit. No sensory deficit. Moving all extremities. No slurred speech. CN 2 through 12 grossly intact Psych: calm, cooperative, normal affect Course Course Course Narrative: -all of patient's labs pending Medical Decision Making Medical Decision Making [facility] Narrative: -my EKG interpretation: Normal sinus rhythm, nonspecific ST segment depressions in lateral leads, less than 1 mm, nonspecific T-wave inversion in lead III, QTC 432 -my interpretation of labs: patient's hematology at baseline, chemistry unremarkable, troponin negative, COVID and D-dimer negative -I discussed the patient's labs with Dr. Estrella, patient may be discharged home -patient's vital stable /normal Differential Diagnosis Differential Diagnoses: The differential diagnosis associated with the presentation includes (ACS, NSTEMI, COVID) Admission/Observation Consideration of admission/observation: Escalation of care including admission/observation considered (Patient came in for abnormal EKG, admission considered) Consult Healthcare Provider Management of the patient was discussed with: Plastics Engineer Lab Data [facility] Lab Attestation statement: I reviewed the patient's lab results. 03/11/23 15:25 03/11/23 15:25 Labs: Lab Results 03/11/23 Range/Units 15:25 WBC 11.0 H (4.8-10.8) X10*3/uL RBC 4.90 (4.20-5.50) X10*6/uL Hgb 11.7 L (12.0-16.0) g/dl Hct 38.1 (37.0-47.0) % MCV 77.8 L (80.0-98.0) fL MCH 23.9 L (27.0-33.0) pg MCHC 30.7 L (31.0-35.0) g/dl RDW 14.9 (11.0-16.0) % Plt Count 323 (160-400) X10*3/uL MPV 10.9 (9.4-12.3) fL Immature Gran % (Auto) 0.4 (0.0-0.4) % Neut % (Auto) 74.2 H (45-73) % Lymph % (Auto) 18.0 L (20-40) % [place] % (Auto) 5.5 (2-11) % Eos % (Auto) 1.5 (0-4) % Baso % (Auto) 0.4 (0-2) % Lymph # (Auto) 2.0 (1.2-4.9) X10*3/uL [place] # (Auto) 0.6 (0.1-1.2) X10*3/uL Eos # (Auto) 0.2 (0.0-0.4) X10*3/uL Baso # (Auto) 0.0 (0.0-0.2) X10*3/uL Abs Immat Gran (auto) 0.04 H (0.00-0.03) X10*3/uL Absolute Neuts (auto) 8.2 (2.0-8.3) x10*3/uL Absolute Nucleated RBC 0.000 (0.0-0.012) X10*3/uL Nucleated RBC % (auto) 0.0 (0.0-0.2) /100WBC PT 13.6 H (11.1-13.3) SEC INR 1.1 (0.9-1.1) D-Dimer High Sensitivty < 150 NG/ML Sodium 139 (135-145) mmol/L Potassium 3.4 (3.3-5.1) mmol/L Chloride 105 (96-108) mmol/L Carbon Dioxide 25 (22-29) mmol/L Anion Gap 12 (12-20) BUN 5 L (9-16) mg/dL Creatinine 0.69 (0.5-1.4) mg/dL Estim Creat Clear Calc 101.9 Estimated GFR > 60 Random Glucose 104 (60-115) mg/dL Calcium 9.7 (8.4-10.2) mg/dL Magnesium 1.9 (1.6-2.6) mg/dL Total Bilirubin 0.3 (0.0-1.0) mg/dL Direct Bilirubin 0.1 (0.0-0.5) mg/dL AST 16 (5-31) U/L ALT 17 (0-31) U/L Alkaline Phosphatase 66 (39-117) U/L Troponin I High Sens < 2.7 (<3.5-17.0) ng/L Total Protein 8.0 (6.5-8.0) g/dL Albumin 4.5 (3.5-5.0) g/dL TSH 0.74 (0.32-4.0) uIU/mL COVID-19 (FABI) Negative (Negative) COVID-19 Clin Com See Note External Record Review External record reviewed: Outpatient record (Cardiology outpatient notes: Patient has had exercise stress test which did not show any EKG changes or perfusion defect.) Critical Care Time Critical Care Time Critical Care Time: Yes Total Critical Care Time: 60 Attestation: I have personally provided critical care time. Time includes review of lab data, radiology results, discussion with consultants, and monitoring for potential decompensation. Intervention performed as documented. Discharge Plan Discharge Clinical Impression: Abnormal ECG Patient Disposition: Home, Self-Care Instructions: Chest Pain (ED) Additional Instructions: Please follow-up with your primary care physician tomorrow. If you have any worsening or new symptoms, please return to the emergency room or call 911 Prescriptions: No Action clotrimazole-betamethasone 1-0.05 % cream 1 appl topical BID 5 Days Qty: 45 0RF dexlansoprazole [Dexilant] 60 mg capsule,biphase delayed releas 60 mg PO DAILY 30 Days Qty: 90 2RF lorazepam 1 mg tablet 1 mg PO BEDTIME PRN (Reason: Anxiety) ibuprofen 400 mg tablet 400 mg PO Q4-6H PRN (Reason: Pain) trazodone 50 mg tablet 50 mg PO BEDTIME PRN diclofenac sodium 1 % gel 4 g topical BID loratadine [Children's Allergy Relief(jermaine)] 5 mg/5 mL solution 10 ml PO DAILY paroxetine HCl 20 mg tablet 20 mg PO DAILY lnorlcdksr-bolpinwneelhj-ndfv 50-325-40 mg tablet 1 tab PO Q8H PRN albuterol sulfate [Ventolin HFA] 90 mcg/actuation HFA aerosol inhaler 1 inh inhalation QID metoclopramide HCl [Reglan] 5 mg tablet 5 mg PO QIDACHS Qty: 120 6RF Rx Instructions: provider aware of possible interaction and is monitoring simethicone 180 mg capsule 180 mg PO BID 30 Days Qty: 60 6RF Rx Instructions: after meals famotidine [Pepcid] 40 mg tablet 40 mg PO BEDTIME Qty: 30 6RF azelastine 137 mcg (0.1 %) aerosol,spray 1 spray intranasal DAILY pyridoxine (vitamin B6) 100 mg tablet 100 mg PO DAILY 90 Days Qty: 90 3RF dicyclomine 10 mg capsule 10 mg PO TID
[2023-03-11 15:14] VITALS: BP 117/72; PULSE 80; RESP 16; TEMP 37.2; O2SAT 100
[2023-03-11 15:34] LABS: MANUAL DIFF FLAG NO
[2023-03-11 15:37] LABS: Basophils Percent Auto 0.4 % (0-2); Eosinophils Absolute Auto 0.2 X10*3/uL (0.0-0.4); Eosinophils Percent Auto 1.5 % (0-4); Hematocrit 38.1 % (37.0-47.0); Hemoglobin 11.7 g/dl (12.0-16.0); Imm Gran Abs Auto 0.04 X10*3/uL (0.00-0.03); Imm Gran Pct Auto 0.4 % (0.0-0.4); Mean Corpuscular HGB Conc 30.7 g/dl (31.0-35.0); Mean Corpuscular Hemoglobin 23.9 pg (27.0-33.0); Mean Corpuscular Volume 77.8 fL (80.0-98.0); Mean Platelet Volume 10.9 fL (9.4-12.3); Monocytes Absolute Auto 0.6 X10*3/uL (0.1-1.2); Monocytes Percent Auto 5.5 % (2-11); Neutrophils Absolute Auto 8.2 x10*3/uL (2.0-8.3); Neutrophils Percent Auto 74.2 % (45-73); Platelet Count 323 X10*3/uL (160-400); Red Cell Distribution Width 14.9 % (11.0-16.0)
--- NOTE | 2023-03-11 15:45 | PC.NURSE ---
a&ox3, vss, nsr on the monitor and storage bin tender. pt comes in today d/t having abnormal ekg during outpatient appointment. pt c/o substernal chest pain that radiates towards upper left extremity. pt also c/o nausea/vomiting/diarrhea. pt states that all of these symptoms began 02/25. 20gIV placed in the left AC - labs also drawn and sent to the lab. pt has hx of asthma. pt currently denies SOB and displays no WOB at this time. lung sounds clear throughout upon auscultation. respirations even and unlabored. call estevez placed within reach.
[2023-03-11 15:46] LABS: INTERNATIONAL NORM RATIO 1.1 (0.9-1.1); Prothrombin Time 13.6 SEC (11.1-13.3)
[2023-03-11 15:58] LABS: Alanine Aminotransferase 17 U/L (0-31); Albumin Level 4.5 g/dL (3.5-5.0); Alkaline Phosphatase 66 U/L (39-117); Anion Gap 12 (12-20); Aspartate Amino Transferase 16 U/L (5-31); Bilirubin Direct 0.1 mg/dL (0.0-0.5); Bilirubin Total 0.3 mg/dL (0.0-1.0); Blood Urea Nitrogen 5 mg/dL (9-16); Calcium 9.7 mg/dL (8.4-10.2); Carbon Dioxide 25 mmol/L (22-29); Chloride 105 mmol/L (96-108); Creatinine Clr Calc Pharmacy 101.9; Estimated Glomerular Filt Rate > 60; Glucose Random 104 mg/dL (60-115); Magnesium 1.9 mg/dL (1.6-2.6); Potassium 3.4 mmol/L (3.3-5.1); Sodium 139 mmol/L (135-145)
[2023-03-11 15:59] LABS: D Dimer High Sensitivity < 150 NG/ML
[2023-03-11 16:00] LABS: Troponin-I High Sensitivity < 2.7 ng/L (<3.5-17.0)
[2023-03-11 16:10] LABS: COVID-19 Test Negative (Negative); IDNOW Serial# BCCEAD1C
[2023-03-11 16:12] LABS: TSH reflex Free T4 0.74 uIU/mL (0.32-4.0)
== END 2023-03-11 16:54 | disposition home or self-care (01) ==
PROVIDERS: Emergency Provider Emergency Medicine; PCP Student in an Organized Health Care Education/Training Program
DX: R94.31 Abnormal electrocardiogram [ECG] [EKG] (principal); Z20.822 Contact with and (suspected) exposure to COVID-19; Z79.899 Other long term (current) drug therapy
CPT/HCPCS: 36415; 80048; 80076; 83735; 84443; 84484; 85025; 85379; 85610; 87635; 93005; 99283; 99285

== ENCOUNTER 2023-03-12 10:06 | Outpatient (AMB) | payer MEDICAID, SELFPAY ==
[2023-03-12 10:10] VITALS: BP 122/68; PULSE 89; TEMP 36.2; O2SAT 98; BMI 34.9
--- NOTE | 2023-03-12 10:10 | MHC.OFFVIS ---
Intake Vital Signs 03/12/23 10:10 Height 4 ft 11 in Weight 172 lb 9.951 oz BMI 34.9 BP 122/68 Blood Pressure Location Rt brachial Position Sitting Pulse 89 Pulse Source Pulse Oximeter Temp 97.2 F Temp Source Skin Pulse Oximetry (%) 98 Intake Visit Reasons: Myalgia Intake Note: Pt seen today for myalgia. Audio Visual Aids Director Required: Yes Accompanied by: Sister Allergies Iodinated Contrast Media [IV DYE, IODINE CONTAINING CONTRAST ] Allergy (Intermediate, Verified 03/12/23 10:12) SHORTNESS OF BREATH citalopram [From CELEXA] Allergy (Unknown, Verified 03/12/23 10:12) VOMITTING duloxetine [Cymbalta] Allergy (Unknown, Verified 03/12/23 10:12) unknown morphine [MORPHINE] Allergy (Unknown, Verified 03/12/23 10:12) PALPITATIONS-PT PREFERS NOT TO TAKE tramadol [TRAMADOL] Allergy (Unknown, Verified 03/12/23 10:12) VOMITING HPI HPI Comments History of Present Illness Details The patient returns for evaluation of her fibromyalgia. Her sister accompanies her and provides some translation. Patient continues with fairly widespread pains involving the muscles, bones and joints. She also complains of multiple other problems. She has been having episodic patches of skin that are red and itchy. They seem to come on at inopportune and random times. She gets worried that something serious is happening. She does not have any today. She can not really tell me how often she gets these events but they do sound like hives. They are not clearly related to any medication or food exposure. She also was recently at Cardiology. She had an abnormal EKG. There was some ST changes and she presented to the ER where she was told blood work was normal. She does not really get any exertional chest pain but still gets right costal pain and epigastric pain. She has been seeing GI frequently with complaints of heartburn, abdominal bloating and nausea. She did see ENT and was told she had a sensitive larynx. There was some swelling abnormality seen on her barium swallow. Upper endoscopy has been suggested but not yet scheduled. She remains on a host of medicines for her GI problems including dicyclomine, famotidine, metoclopramide, and simethicone. She still gets intermittent epigastric and right upper quadrant pains. She takes ibuprofen on a regular basis, usually 3 or 4 of the 400 mg tablets a day. She thinks they are helpful with her back pain. She is also in physical therapy currently for her back pain and left foot pain. She has a known positive NURIA but other serologic studies were negative in the past. [facility] Medical History (Updated 03/12/23 @ 11:15 by Willard Waters MD) Recurrent nephrolithiasis Vitamin D deficiency Obesity History of thyroiditis Fibroadenoma Lipoma Fibromyalgia NURIA positive Hx of lipoma Surgical History History of esophagogastroduodenoscopy (EGD) History of wisdom tooth extraction Family History Father Diabetes Heart attack Asthma Maternal Grandmother Diabetes HTN (hypertension) Parkinson disease Breast cancer Mother Diabetes Family history of diabetes mellitus Sister Asthma Maternal Grandfather Parkinson disease Social History Household Members: Children [facility]: [facility] Are you a primary child care coordinator to a significant other at home: No Do you presently have visiting nurse 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 Negative for appetite change, weight change, fever, chills, malaise Eyes Details: Often on headaches. Some dry eyes. Negative for vision change, and dizziness ENT Details: Occasional dysphagia and oral dryness. Negative for hearing change, tinnitus, oral ulcer, nose bleeds Card Details: Intermittent nonexertional right upper quadrant and right rib pain, a chronic problem now. Negative palpitations, edema and syncope Resp Details: Negative for SOB, cough and wheezing GI Details: Heartburn, dysphagia, epigastric pains sometimes related to meals. Negative abdominal pain, bowel changes, diarrhea, constipation and bloody stool. Details: Negative for dysuria, hematuria, nocturia, decreased force/flow and genital discharge Skin/Breast Details: Red skin lesions as noted above. She has some pictures of these on her phone. They seem to have the appearance of hives and usually last an hour or 2. Currently negative for itching, rash, hives, Raynaud's symptoms, sun sensitivity, and skin cancer Neuro Details: Some scattered paresthesias. No focal weakness. Negative for epilepsy, palsy, stroke, changes in speech, and weakness Psych Details: Occasional panic attacks. Currently treated just with Ativan. She does not like to take the paroxetine. She says it gives her headache. Negative for depression and stress Endo Details: Negative for polyuria and polydypsia Antonino/Lymph Details: Negative for excessive bruising or bleeding. Physical Exam Vital Signs: Last Vital Signs Temp 97.2 F 03/12/23 10:10 Pulse 89 03/12/23 10:10 BP 122/68 03/12/23 10:10 Pulse Ox 98 03/12/23 10:10 BMI result Body Mass Index 34.9 APPEARANCE: Patient in no acute distress EYES no redness, pupils equal and reactive to light, eyelids normal EARS: External ear normal, canal clear and tympanic membrane normal. NOSE/SINUS: Airflow through both nares, no nasal discharge, no bleeding THROAT: Oral mucosa moist, no ulcerations NECK: No thyromegaly or masses, no adenopathy, trachea midline. HEART: Regulrar rhythm, S1-S2 heard, no murmurs, rubs or gallops. LUNG: Clear to percussion and auscultation ABD: Normal bowel sounds, no organomegaly. [id number] left flank and left lower quadrant tenderness. I do not appreciate any masses. EXTREMITIES: No edema, no calf tenderness, normal peripheral pulses. NEURO: Oriented and alert x3. No focal weakness. Reflexes symmetric. Gait normal. SKIN: No inflammatory or neoplastic lesions. Normal color and turgor JOINT EXAM:.?? Cervical Spine:.? Full range of motion without pain; no tenderness. Thoracic Spine:.? No scoliosis.? No tenderness on palpation. Lumbar Spine:.? Alignment normal.? Mild pain with extremes of motion with some paraspinal muscle tenderness. Chest Wall:.? No tenderness, swelling, increased warmth or erythema. Hands: Right: No swelling or tenderness. Normal range of motion. No thenar atrophy, sensory loss or objective signs of Raynaud's disease. No objective signs of Raynaud's phenomena. Left: No tenderness, normal range of motion in the fingers. No soft tissue swelling, thenar atrophy or sensory loss. No objective signs of Raynaud's disease. Wrists:.? Normal pain-free range of motion with mild dorsal tenderness but no swelling, increased warmth or erythema. Elbows:. Normal pain-free range of motion without tenderness, swelling, increased warmth or erythema. Shoulders:.??Right: Full range of motion without pain. No tenderness, weakness, swelling, increased warmth or erythema. Mild trapezial tenderness Left: At the extremes of abduction she seems to be having some left flank pain. There is no abductor weakness or adenopathy. No swelling. There is minimal trapezial tenderness. Hips:.? Right: Full range of motion without pain. Left: Range of motion at the hip causes left lower quadrant and buttock pains. No groin pain with motion. Hip bursa:.? No tenderness. Knees:.?? Normal pain-free range of motion with mild medial compartment tenderness. No crepitus, effusion, soft tissue swelling, increased warmth or erythema.? Ankles:.? Normal pain-free range of motion without tenderness, swelling, increased warmth or erythema. Feet: Left: Mild tenderness on the medial aspect of the 1st MTP joint. I do not see any redness, bruising or swelling. There is mild pain with range of motion. Other parts the foot are without tenderness or swelling. Right: Normal pain-free range of motion without tenderness, swelling, increased warmth or erythema. Tender points:.? Mild tenderness to digital palpation at the trapezius, second rib, lateral epicondyle, knees, left greater trochanter and left gluteal area Results Reviewed Results Reviewed: Laboratory Tests 03/06/22 03/11/23 16:59 15:25 ESR 23 H Creatinine 0.69 Troponin I High Sens < 2.7 TSH 0.74 Laboratory Tests 03/11/23 15:25 WBC 11.0 H Hgb 11.7 L Laboratory Tests 03/06/22 16:59 Sm (Jamison) Antibody <1.0 NEG SM/MACHINE CLOTHING REPLACER IgG Antibody <1.0 NEG Double Strand DNA Ab 2 Laboratory Tests 01/11/23 13:16 EJ Antibody NOT DETECTED Ku Antibody NOT DETECTED OJ Antibody NOT DETECTED Mi-2 Myostitis Ab Panel NOT DETECTED PL-7 Antibody NOT DETECTED PL-12 Antibody NOT DETECTED SRP Ab NOT DETECTED Myositis Asses DAVON-1 Ab <1.0 NEG Laboratory Tests 01/11/23 01/25/23 13:16 13:12 AST 17 ALT 15 Total Creatine Kinase 55 Assessment & Plan Assessment & Plan (1) Hives: Code(s): L50.9 - Urticaria, unspecified (2) Fibromyalgia: Code(s): M79.7 - Fibromyalgia Plan The pictures of the skin lesions on her phone suggest urticaria. They do itch and they tend to come and go within a few hours. She cannot really relate them to any particular food group or medication. She still has widespread pains and eventually during the exam did indicate that she was more comfortable taking the nighttime pregabalin that she had been prescribed before. She does not have any inflammation seen in joints so I think she likely has fibromyalgia. She had been on 75 mg Lyrica nightly before. I am going to restart her at 50 mg and we could increase if needed but given her other sedating medications I hesitate to put her on a very high dose. For the hives I did prescribe if needed Benadryl 25 mg q.6. I tried to reassure her that this did not appear like it was a serious condition. She apparently has been told by other physicians that she has a serious condition but I fail to recognize that. Tests for muscle disease with myositis antibodies and CPK were normal. She does not appear to have any muscle weakness on exam. I also think she has a significant anxiety problem. She is currently medicating it with Ativan only. I indicated that likely an SSRI would be helpful to modulate her anxiety and improve her overall symptoms. She will discuss this further with primary care and her psychotherapist. We will follow-up in 2-3 months. Review of her history and record, exam, and discussion of treatment options took 45 minutes. Medications: New pregabalin 50 mg PO BEDTIME 30 caps 2RF M79.7 - Fibromyalgia diphenhydramine HCl (Allergy (diphenhydramine)) 25 mg PO TID PRN 30 caps 1RF allergy symptoms - hives L50.9 - Urticaria, unspecified Coding Level of Care Code Est Pt Level 5 (97391) Diagnoses Hives L50.9 Fibromyalgia M79.7
== END 2023-03-12 11:19 | disposition home or self-care (01) ==
PROVIDERS: PCP Student in an Organized Health Care Education/Training Program; Visit Provider Internal Medicine Rheumatology
DX: M79.7 Fibromyalgia (principal); L50.9 Urticaria, unspecified
CPT/HCPCS: 99215

== ENCOUNTER → 2023-03-12 10:06 | Outpatient (BNVA) | payer MEDICAID, SELFPAY | PROVIDERS: PCP Student in an Organized Health Care Education/Training Program; Visit Provider Internal Medicine Rheumatology | DX: M79.7 Fibromyalgia (principal); R76.8 Other specified abnormal immunological findings in serum; L50.9 Urticaria, unspecified | CPT/HCPCS: 99212 ==

== ENCOUNTER 2023-03-13 14:30 | Outpatient (AMB) | payer MEDICAID, SELFPAY ==
--- NOTE | 2023-03-13 14:40 | MHC.OFFVIS ---
Intake Vital Signs 03/13/23 14:54 Height 4 ft 11 in Weight 172 lb 13.478 oz BMI 34.9 BP 119/58 L Blood Pressure Location Lt brachial Position Sitting Pulse 88 Intake Visit Reasons: Pt request vomiting/diarrhea/abd pain Intake Note: Patient presents to in office visit today in follow up abdominal pain. CC: Patient reports she has been having diarrhea and vomiting since 02/24/23. She states she last vomited yesterday. Patient states she was having a sore throat on 02/17 and got tested for Covid when she came back from [place] and it came back positive. She was seen last Saturday at cardiology and she was sent to the ER due to abnormal ECG and chest pains. She reports she used her asthma inhaler today and hasn't had any chest pain today. She reports 3 days ago she ate rice with salad and when she had a BM the food came out without digesting. 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 Accompanied by: Spouse Allergies Iodinated Contrast Media [IV DYE, IODINE CONTAINING CONTRAST ] Allergy (Intermediate, Verified 03/13/23 15:01) SHORTNESS OF BREATH citalopram [From CELEXA] Allergy (Unknown, Verified 03/13/23 15:01) VOMITTING duloxetine [Cymbalta] Allergy (Unknown, Verified 03/13/23 15:01) unknown morphine [MORPHINE] Allergy (Unknown, Verified 03/13/23 15:01) PALPITATIONS-PT PREFERS NOT TO TAKE tramadol [TRAMADOL] Allergy (Unknown, Verified 03/13/23 15:01) VOMITING HPI Pt request vomiting/diarrhea/abd pain HPI Details Assessment & Plan (1) Irritable larynx syndrome: Comment: DX via her ENT Code(s): J38.7 - Other diseases of larynx Plan: Finnish #[employer] Live She has a a new ex of irritable larynx syndrome. This was made by her ENT. The ENT also recommended that we do an EGD as this conditions is sometimes amenable to dilation. We will get this scheduled. She had an episode of her hands swelling and turning red and itching then turning white. She was seen by Dr. Sandra, and they wanted her to present to rheumatology, but they dismissed her over the phone with FMS. She likely needs to be referred to a tertiary center for evaluation. She continues on her Creon, Dexilant, dicyclomine 10 mg, famotidine, and Reglan 5 mg (we could not increase the dose related to dizziness) and she also has simethicone. Return office visit in 3 months (2) Oropharyngeal dysphagia: Code(s): R13.12 - Dysphagia, oropharyngeal phase (3) Irritable bowel syndrome with constipation: Code(s): K58.1 - Irritable bowel syndrome with constipation (4) GERD (gastroesophageal reflux disease): Code(s): K21.9 - Gastro-esophageal reflux disease without esophagitis Qualifiers: Esophagitis presence: esophagitis presence not specified Qualified Code(s): K21.9 - Gastro-esophageal reflux disease without esophagitis (5) Gastroparesis: Code(s): K31.84 - Gastroparesis (6) Toe swelling: Code(s): M79.89 - Other specified soft tissue disorders (7) NURIA positive: Comment: 2020: 1:160, anti dna, nicholas, ESR, CRP all wnl Code(s): R76.8 - Other specified abnormal immunological findings in serum (8) CRPS (complex regional pain syndrome), upper limb: Code(s): G90.519 - Complex regional pain syndrome I of unspecified upper limb (9) Cricopharyngeal hypertrophy: Code(s): J39.2 - Other diseases of pharynx Orders: Orders EGD with Albarado - G I Use Only 02/08/23 J38.7 - Other dise ases of larynx, R1 3.12 - Dysphagia, oropharyngeal phas e Uric Acid 02/08/23 M79.89 - Other spe cified soft tissue disorders Referrals Rheumatology Refer ral R76.8 - Other spec ified abnormal imm unological finding s in serum, G90.51 9 - Complex region al pain syndrome I of unspecified up per limb, J39.2 - Other diseases of pharynx, M79.89 - Other specified so ft tissue disorder s Review of ER notes 03/11/2023 EKG at the office, showed sinus rhythm with T-wave inversions as well as ST depressions laterally. Patient states that she had COVID 2 weeks ago, and for 2 weeks, patient has been having nausea vomiting and diarrhea. Medical Decision Making MDM Narrative: -my EKG interpretation: Normal sinus rhythm, nonspecific ST segment depressions in lateral leads, less than 1 mm, nonspecific T-wave inversion in lead III, QTC 432 -my interpretation of labs: patient's hematology at baseline, chemistry unremarkable, troponin negative, COVID and D-dimer negative -I discussed the patient's labs with Dr. Estrella, patient may be discharged home -patient's vital stable /normal CORRESPONDENCE On 03/12/23 @ 11:58 Bismark Alvarado Wrote To Kessler,September FYI- Patient added to your schedule for tomorrow 03/13. Patient called with c/o abdominal pain, vomiting, and diarrhea since she came back from . around 02/25. Patient seen yesterday at ER because cardio sent her, but was told everything looked fine. On 01/02/23 @ 13:36 Berna Guillaume Wrote To Andie Valenzuela Refer To Neurology [facility]. [facility] ? [address] [place] [address] Dr. Lo[address] [place] [address] ? [phone] Fax This is not our facility. We are [facility] Neuro/Sleep / address: [address] [facility] [address] [place] [address] / Called pt but we are booking out to May and we are in [place]. Pt denied appt. On 01/01/23 @ 16:00 Andie Valenzuela Wrote To Neuro/Sleep Front Office Please contact patient to schedule. TODAY'S VISIT Finnish #Jackie Zuluaga She was feeling well, but then she went to CT and on rodri way back she developed N/V/D. THis persisted for 5 days and then she was positive for COVID. She has since tested negative. She still has residual N/V that last was yesterday. She has been having discomfort with eating that is in the upper abd adn radiates up into the chest. She also has throat pain and I will start carafate. She also has the irritable larynx syndrome which probably has not been helped by the COVID which is likely attack the GI system and cause quite a bit of inflammation. We have a long conversation about the role of anxiety in terms of GI manifestations. Apparently other providers have suggested to her that this is the underlying cause of her GI conditions. I tell her that this is possible since this is linked to are very agent fight or flight me spots and she asks ?but are my stomach problems we real?? On I tell her that they are real there response to a very real cascade of hormones that her released when we are exposed to the stresses of modern living for which we are not well adapted. Sometimes it just means that to really cure the stomach problems we need to treat the underlying anxiety disorder. Of course I would leave that into the hands of her psychiatric providers. In the meantime we control the symptoms. I let her know that once COVID hit and causes problems it can take many months for things to fully resolves. This is because the immune system tends to be somewhat hypervigilant. She complains that her boyfriend did not have symptoms as badly as she did even though he also tested positive. However the difference was he was vaccinated in she was not I explained to her that this is why she had such as severe course and I encouraged her after she has at least 8 weeks out from the initial infection to consider getting the COVID vaccine. This is specially important that she has comorbid asthma. ROV 4 weeks. [facility] Medical History Recurrent nephrolithiasis Vitamin D deficiency Obesity History of thyroiditis Fibroadenoma Lipoma Fibromyalgia NURIA positive Hx of lipoma Surgical History History of esophagogastroduodenoscopy (EGD) History of wisdom tooth extraction Family History Father Diabetes Heart attack Asthma Maternal Grandmother Diabetes HTN (hypertension) Parkinson disease Breast cancer Mother Diabetes Family history of diabetes mellitus Sister Asthma Maternal Grandfather Parkinson disease Social History Household Members: Children Housing: Condominium Are you a primary medical care administrator to a significant other at home: No Do you presently have visiting nurse 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 (lathe tender) Alcohol intake: never Patient Tobacco Use Status: Never used Tobacco Second Hand Smoke Exposure: Yes (Neighbors) service: No Current occupational status: disabled Sexual orientation: Straight/Heterosexual Gender identity: Female Female Reproductive History Menstrual Age of Menarche: 13 Review of Systems Const Reports fatigue, Denies fever(s), Reports headache(s), Reports malaise, Denies night sweats, Reports poor appetite and Denies weight loss ENT Reports Normal hearing present, Denies dental pain, Denies dysphagia, Reports headache(s), Denies hearing loss, Denies mouth pain, Denies odynophagia, Denies throat swelling, Denies tongue swelling and Reports other (Dentition adequate) Card Reports chest pain and Reports dyspnea Resp Reports cough and Reports dyspnea GI Reports abdominal pain, Denies melena, Denies bloating, Denies hematochezia, Denies constipation, Denies GI cramping, Denies dysphagia, Denies excessive flatus, Reports early satiety, Reports dyspepsia, Reports heartburn, Denies diarrhea, Denies nausea, Denies odynophagia, Denies vomiting and Denies hematemesis Musc Reports myalgias Skin/Breast Denies pruritus, Denies lesions, Denies rash and Denies jaundice Neuro Reports Normal hearing present, Denies Abnormal speech present and Reports headache(s) Psych Reports anxiety Endo Reports fatigue Aller/Immun Denies throat swelling and Denies tongue swelling Physical Exam Vital Signs: Last Vital Signs Pulse 88 03/13/23 14:54 BP 119/58 L 03/13/23 14:54 BMI result Body Mass Index 34.9 Const General: cooperative, no acute distress, well developed and well groomed Nutritional Appearance: well nourished and obese Orientation/consciousness: oriented to person, oriented to place and oriented to time Limitations: language barrier HEENT Head: Yes normocephalic and Yes atraumatic Eyes General: appearance normal, both eyes and all related structures Pupils: Equal, round and reactive pupils present Neck Neck: Yes normal visual inspection and Yes no lymphadenopathy Thyroid: Thyroid normal Resp Effort & Inspection: normal respiratory effort and able to speak in complete sentences Auscultation: clear to auscultation bilaterally Cardio Rate: regular rate Rhythm: regular rhythm Heart sounds: Normal, physiologic split S2 sound present Peripheral pulses: radial pulses present and posterior tibial pulses present GI Inspection: No distended, Yes Abdominal panniculus present and Yes obesity Palpation (GI): Soft to palpation, Tenderness to palpation present (GI) in the epigastrum, no guarding, not rigid and No hepatosplenomegaly present Percussion: Yes normal to percussion Auscultation: normal bowel sounds Rectal Exam - Female: deferred Skin General skin exam: no rashes or lesions noted, turgor normal, skin not dry, no jaundice, No spider nevi and no striae Rashes: no rashes Nails: normal Neuro General: oriented to person, oriented to place and oriented to time Cranial nerves: Yes Equal, round and reactive pupils present and Yes Normal hearing present Speech: No Abnormal speech present Extrem General: Yes normal to inspection, No clubbing, No cyanosis and No edema Psych Appearance: grossly normal and well kempt Mental Status: mental status grossly normal Speech and movement: Normal speech and movement present Affect: normal affect Attitude: cooperative Thought process: Normal thought process present and not confabulating Thought content: Normal thought content present Insight: Limited insight present (Psych) Judgement: Limited judgement present (Psych) Assessment & Plan Assessment & Plan (1) Oropharyngeal dysphagia: Code(s): R13.12 - Dysphagia, oropharyngeal phase Plan: Finnish #Jackie Live She was feeling well, but then she went to [place] and on rodri way back she developed N/V/D. THis persisted for 5 days and then she was positive for COVID. She has since tested negative. She still has residual N/V that last was yesterday. She has been having discomfort with eating that is in the upper abd adn radiates up into the chest. She also has throat pain and I will start carafate. She also has the irritable larynx syndrome which probably has not been helped by the COVID which is likely attack the GI system and cause quite a bit of inflammation. We have a long conversation about the role of anxiety in terms of GI manifestations. Apparently other providers have suggested to her that this is the underlying cause of her GI conditions. I tell her that this is possible since this is linked to are very agent fight or flight me spots and she asks ?but are my stomach problems we real?? On I tell her that they are real there response to a very real cascade of hormones that her released when we are exposed to the stresses of modern living for which we are not well adapted. Sometimes it just means that to really cure the stomach problems we need to treat the underlying anxiety disorder. Of course I would leave that into the hands of her psychiatric providers. In the meantime we control the symptoms. I let her know that once COVID hit and causes problems it can take many months for things to fully resolves. This is because the immune system tends to be somewhat hypervigilant. She complains that her boyfriend did not have symptoms as badly as she did even though he also tested positive. However the difference was he was vaccinated in she was not I explained to her that this is why she had such as severe course and I encouraged her after she has at least 8 weeks out from the initial infection to consider getting the COVID vaccine. This is specially important that she has comorbid asthma. ROV 4 weeks. (2) Irritable bowel syndrome with constipation: Code(s): K58.1 - Irritable bowel syndrome with constipation (3) GERD (gastroesophageal reflux disease): Code(s): K21.9 - Gastro-esophageal reflux disease without esophagitis Qualifiers: Esophagitis presence: esophagitis presence not specified Qualified Code(s): K21.9 - Gastro-esophageal reflux disease without esophagitis (4) Gastroparesis: Code(s): K31.84 - Gastroparesis (5) Acute diarrhea: Code(s): R19.7 - Diarrhea, unspecified Medications: New sucralfate (Carafate) 10 mL PO TID 414 mL 1RF R19.7 - Diarrhea, unspecified Coding Level of Care Code Est Pt Level 4 (38821) Diagnoses Oropharyngeal dysphagia R13.12 Irritable bowel syndrome with constipation K58.1 Gastroesophageal reflux disease, unspecified whether esophagitis present K21.9 Esophagitis presence: esophagitis presence not specified Gastroparesis K31.84 Acute diarrhea R19.7
[2023-03-13 14:54] VITALS: BP 119/58; PULSE 88; BMI 34.9
== END 2023-03-13 15:44 | disposition home or self-care (01) ==
PROVIDERS: PCP Student in an Organized Health Care Education/Training Program; Visit Provider Nurse Practitioner
DX: R13.12 Dysphagia, oropharyngeal phase (principal); K58.1 Irritable bowel syndrome with constipation; K21.9 Gastro-esophageal reflux disease without esophagitis; K31.84 Gastroparesis; R19.7 Diarrhea, unspecified
CPT/HCPCS: 99214

== ENCOUNTER → 2023-03-13 14:30 | Outpatient (BNVA) | payer MEDICAID, SELFPAY | PROVIDERS: PCP Student in an Organized Health Care Education/Training Program; Visit Provider Nurse Practitioner | DX: R13.12 Dysphagia, oropharyngeal phase (principal); K58.1 Irritable bowel syndrome with constipation; K21.9 Gastro-esophageal reflux disease without esophagitis; K31.84 Gastroparesis; R19.7 Diarrhea, unspecified | CPT/HCPCS: 99212 ==

== ENCOUNTER 2023-04-17 16:41 | Outpatient (REF) | payer MEDICAID, SELFPAY ==
[2023-04-17 17:49] LABS: Appearance Urine Clear; Color Urine Yellow; Glucose Urine UA Negative (Negative); Leukocyte Esterase Urine Negative (Negative); Nitrite Urine Negative (Negative); Specific Gravity - Urine 1.015 (1.005-1.025); Urine Blood Negative (Negative); Urine Ketones Negative (Negative); Urine Protein Negative (Neg-Trace)
[2023-04-17 17:52] LABS: Bacteria Urine None Seen (None Seen); Hyaline Casts Urine 0-2 /LPF (0-2); RBC Urine 0-2 /HPF (0-2); Squamous Epithelial Cell Urine 0-2 /HPF (0-2); WBC Urine 0-5 /HPF (0-5)
== END 2023-04-17 16:42 | disposition home or self-care (01) ==
LOC: HO.LAB 16:41
PROVIDERS: PCP Student in an Organized Health Care Education/Training Program; Visit Provider Nurse Practitioner Family
DX: N39.0 Urinary tract infection, site not specified (principal)
CPT/HCPCS: 81001; 87086

== ENCOUNTER 2023-05-08 13:58 | Outpatient (AMB) | payer MEDICAID, SELFPAY ==
[2023-05-08 14:03] VITALS: BP 138/67; PULSE 92; BMI 34.9
--- NOTE | 2023-05-08 14:03 | MHC.OFFVIS ---
Intake Vital Signs 05/08/23 14:03 Height 4 ft 11 in Weight 172 lb 13.478 oz BMI 34.9 BP 138/67 Blood Pressure Location Lt brachial Position Sitting Pulse 92 Intake Visit Reasons: 3 month follow up Intake Note: Patient presents to in office visit today in 3 months follow up. CC: Pt reports abdominal cramps about 3 weeks ago with constipation. Her phone representative placed her on medications for abdominal cramps to treat kidney stone and she began to have heartburn d/t medication. She states she feels nausea, having an upset stomach, and feeling very tired. Patient reports concern about eating habits as she feels she is not eating enough. Carafate helps with heartburn per patient. Allergies Iodinated Contrast Media [IV DYE, IODINE CONTAINING CONTRAST ] Allergy (Intermediate, Verified 06/19/23 14:23) SHORTNESS OF BREATH citalopram [From CELEXA] Allergy (Unknown, Verified 06/19/23 14:23) VOMITTING duloxetine [Cymbalta] Allergy (Unknown, Verified 06/19/23 14:23) unknown morphine [MORPHINE] Allergy (Unknown, Verified 06/19/23 14:23) PALPITATIONS-PT PREFERS NOT TO TAKE tramadol [TRAMADOL] Allergy (Unknown, Verified 06/19/23 14:23) VOMITING Medication List - Last Reconciled 05/08/23 by ELY Garcia albuterol sulfate 90 mcg/actuation (Ventolin HFA) 1 inh inhalation QID azelastine 1 spray intranasal DAILY bisacodyl (Dulcolax (bisacodyl)) 10 mg (2 x 5 mg) PO BEDTIME 30 days xzsmtcvvjl-xovnozdzcithp-kqnz 50-325-40 mg 1 tab PO Q8H PRN clotrimazole-betamethasone 1-0.05 % 1 appl topical BID 5 days dexlansoprazole (Dexilant) 60 mg PO DAILY 30 days diclofenac sodium 1% 4 grams topical BID dicyclomine 10 mg PO TID diphenhydramine HCl (Allergy (diphenhydramine)) 25 mg PO TID PRN famotidine 40 mg PO BEDTIME ibuprofen 400 mg PO Q4-6H PRN gueivm-feezvygw-onwmyez 24,000-76,000 -120,000 unit (Creon) 1 cap PO TID loratadine (Children's Allergy Relief (loratadine)) 10 mL PO DAILY lorazepam 1 mg PO BEDTIME PRN metoclopramide HCl (Reglan) 5 mg PO QIDACHS paroxetine HCl 20 mg PO DAILY pregabalin 50 mg PO BEDTIME pyridoxine (vitamin B6) 100 mg PO DAILY 90 days simethicone 180 mg PO BID 30 days sucralfate (Carafate) 10 mL PO TID trazodone 50 mg PO BEDTIME PRN HPI 3 month follow up HPI Details Assessment & Plan (1) Oropharyngeal dysphagia: Code(s): R13.12 - Dysphagia, oropharyngeal phase Plan: [place] Citizen #Jackie Zuluaga She was feeling well, but then she went to [place] and on [place] way back she developed N/V/D. THis persisted for 5 days and then she was positive for COVID. She has since tested negative. She still has residual N/V that last was yesterday. She has been having discomfort with eating that is in the upper abd adn radiates up into the chest. She also has throat pain and I will start carafate. She also has the irritable larynx syndrome which probably has not been helped by the COVID which is likely attack the GI system and cause quite a bit of inflammation. We have a long conversation about the role of anxiety in terms of GI manifestations. Apparently other providers have suggested to her that this is the underlying cause of her GI conditions. I tell her that this is possible since this is linked to are very agent fight or flight me spots and she asks ?but are my stomach problems we real?? On I tell her that they are real there response to a very real cascade of hormones that her released when we are exposed to the stresses of modern living for which we are not well adapted. Sometimes it just means that to really cure the stomach problems we need to treat the underlying anxiety disorder. Of course I would leave that into the hands of her psychiatric providers. In the meantime we control the symptoms. I let her know that once COVID hit and causes problems it can take many months for things to fully resolves. This is because the immune system tends to be somewhat hypervigilant. She complains that her boyfriend did not have symptoms as badly as she did even though he also tested positive. However the difference was he was vaccinated in she was not I explained to her that this is why she had such as severe course and I encouraged her after she has at least 8 weeks out from the initial infection to consider getting the COVID vaccine. This is specially important that she has comorbid asthma. ROV 4 weeks. (2) Irritable bowel syndrome with constipation: Code(s): K58.1 - Irritable bowel syndrome with constipation (3) GERD (gastroesophageal reflux disease): Code(s): K21.9 - Gastro-esophageal reflux disease without esophagitis Qualifiers: Esophagitis presence: esophagitis presence not specified Qualified Code(s): K21.9 - Gastro-esophageal reflux disease without esophagitis (4) Gastroparesis: Code(s): K31.84 - Gastroparesis (5) Acute diarrhea: Code(s): R19.7 - Diarrhea, unspecified Medications: New sucralfate (Carafa te) 10 mL PO TID 414 mL 1RF R19.7 - Diarrhea, unspecified EGD TODAY'S VISIT [place] Citizen #Renetta Zuluaga Sent note for EGD as she is now ready. She found the carafate soothing for her throat, and it helps her GERD. BUT she did have an episode of CIC (no more post COVID diarrhea) where she had a feeling of pain almost into her vagina. She was not certain if this was a kidney stone or constipation so she bought an kkoz-wsf-wouioav mineral enema. She used it but this did not produce a bowel movement for 2 or 3 days. She then saw her urologist who thought was a stone in treated her with pre DM, a steroid, and Flomax. This seemed to improve her symptoms. She is moving her bowels back at her baseline, however constipation really is her baseline with small rabbit pellet stools being moved most of the time. In the past she has failed fiber therapy, MiraLax, senna, Colace so we will progress her to bisacodyl. The constipation is likely worsening her heartburn is well. She continues on Dexilant and famotidine for the GERD. She wants to use the Carafate p.r.n. and this is fine since it does seem to help subtle symptoms. She also continues on reglan 5mg. We had ordered an EGD in the past but then she got COVID and was in [place] so this was postponed. She is now ready to have it scheduled so long as it is not happening during holidays. She also has otehr doorknob multiple vague complaints incl fatigue, sinus pain, etc. Urology ordered sleep study as she does not sleep well. Return office visit in 6 weeks to titrate the bisacodyl [facility] Medical History (Updated 06/19/23 @ 16:50 by ELY Garcia) Acute diarrhea Recurrent nephrolithiasis Vitamin D deficiency Obesity History of thyroiditis Fibroadenoma Lipoma Fibromyalgia NURIA positive Hx of lipoma Surgical History History of esophagogastroduodenoscopy (EGD) History of wisdom tooth extraction Family History Father Diabetes Heart attack Asthma Maternal Grandmother Diabetes HTN (hypertension) Parkinson disease Breast cancer Mother Diabetes Family history of diabetes mellitus Sister Asthma Maternal Grandfather Parkinson disease Social History Household Members: Children [facility] Are you a primary care mgr to a significant other at home: No 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) Alcohol intake: never Patient Tobacco Use Status: Never used Tobacco Second Hand Smoke Exposure: Yes (Neighbors) service: No Current occupational status: disabled Sexual orientation: Straight/Heterosexual Gender identity: Female Female Reproductive History Menstrual Age of Menarche: 13 Review of Systems Const Reports fatigue, Denies fever(s), Reports malaise, Denies night sweats, Denies poor appetite and Denies weight loss ENT Reports Normal hearing present, Denies dental pain, Denies dysphagia, Denies hearing loss, Denies mouth pain, Reports odynophagia, Reports sinus pain, Reports sinus pressure, Denies throat swelling, Denies tongue swelling and Reports other (Dentition adequate) Card Reports no additional complaints Resp Reports no additional complaints GI Denies abdominal pain, Denies melena, Denies bloating, Denies hematochezia, Reports constipation, Denies GI cramping, Denies dysphagia, Denies excessive flatus, Denies early satiety, Reports heartburn, Denies diarrhea, Denies nausea, Reports odynophagia, Denies vomiting and Denies hematemesis Skin/Breast Denies pruritus, Denies lesions, Denies rash and Denies jaundice Neuro Reports Normal hearing present and Denies Abnormal speech present Psych Reports abnormal sleep pattern Endo Reports fatigue Aller/Immun Denies throat swelling and Denies tongue swelling Physical Exam Vital Signs: Last Vital Signs Pulse 92 05/08/23 14:03 BP 138/67 05/08/23 14:03 BMI result Body Mass Index 34.9 Const General: cooperative, no acute distress, well developed and well groomed Nutritional Appearance: well nourished and obese Orientation/consciousness: oriented to person, oriented to place and oriented to time Limitations: language barrier HEENT Head: Yes normocephalic and Yes atraumatic Eyes General: appearance normal, both eyes and all related structures Pupils: Equal, round and reactive pupils present Neck Neck: Yes normal visual inspection and Yes no lymphadenopathy Thyroid: Thyroid normal Resp Effort & Inspection: normal respiratory effort and able to speak in complete sentences Auscultation: clear to auscultation bilaterally Cardio Rate: regular rate Rhythm: regular rhythm Heart sounds: Normal, physiologic split S2 sound present Peripheral pulses: radial pulses present and posterior tibial pulses present GI Inspection: No distended, No Abdominal panniculus present and Yes obesity Palpation (GI): Soft to palpation, nontender, no guarding, not rigid and No hepatosplenomegaly present Percussion: Yes normal to percussion Auscultation: normal bowel sounds Rectal Exam - Female: deferred Skin General skin exam: no rashes or lesions noted, turgor normal, skin not dry, no jaundice, No spider nevi and no striae Rashes: no rashes Nails: normal Neuro General: oriented to person, oriented to place and oriented to time Cranial nerves: Yes Equal, round and reactive pupils present and Yes Normal hearing present Speech: No Abnormal speech present Extrem General: Yes normal to inspection, No clubbing, No cyanosis and No edema Psych Appearance: grossly normal and well kempt Mental Status: mental status grossly normal Speech and movement: Normal speech and movement present Affect: normal affect Attitude: cooperative Thought process: Normal thought process present and not confabulating Thought content: Normal thought content present Insight: Limited insight present (Psych) Judgement: Limited judgement present (Psych) Assessment & Plan Assessment & Plan (1) Irritable bowel syndrome with constipation: Code(s): K58.1 - Irritable bowel syndrome with constipation (2) GERD (gastroesophageal reflux disease): Code(s): K21.9 - Gastro-esophageal reflux disease without esophagitis Qualifiers: Esophagitis presence: esophagitis presence not specified Qualified Code(s): K21.9 - Gastro-esophageal reflux disease without esophagitis (3) Gastroparesis: Code(s): K31.84 - Gastroparesis (4) Irritable larynx syndrome: Comment: DX via her ENT Code(s): J38.7 - Other diseases of larynx (5) Fatigue: Code(s): R53.83 - Other fatigue Plan EGD TODAY'S VISIT [place] Citizen #Renetta Zuluaga Sent note for EGD as she is now ready. She found the carafate soothing for her throat, and it helps her GERD. BUT she did have an episode of CIC (no more post COVID diarrhea) where she had a feeling of pain almost into her vagina. She was not certain if this was a kidney stone or constipation so she bought an aajv-hha-gbwapcz mineral enema. She used it but this did not produce a bowel movement for 2 or 3 days. She then saw her urologist who thought was a stone in treated her with pre DM, a steroid, and Flomax. This seemed to improve her symptoms. She is moving her bowels back at her baseline, however constipation really is her baseline with small rabbit pellet stools being moved most of the time. In the past she has failed fiber therapy, MiraLax, senna, Colace so we will progress her to bisacodyl. The constipation is likely worsening her heartburn is well. She continues on Dexilant and famotidine for the GERD. She wants to use the Carafate p.r.n. and this is fine since it does seem to help subtle symptoms. She also continues on reglan 5mg. We had ordered an EGD in the past but then she got COVID and was in [place] so this was postponed. She is now ready to have it scheduled so long as it is not happening during holidays. She also has otehr doorknob multiple vague complaints incl fatigue, sinus pain, etc. Urology ordered sleep study as she does not sleep well. Return office visit in 6 weeks to titrate the bisacodyl Orders: Orders TSH reflex Free T4 05/08/23 R53.83 - Other fatigue Complete Blood Count Auto Diff 05/08/23 R53.83 - Other fatigue Comprehensive Met. Panel 05/08/23 R53.83 - Other fatigue Vitamin D 25-OH (D2 and D3) 05/08/23 R53.83 - Other fatigue Medications: New bisacodyl (Dulcolax (bisacodyl)) 10 mg (2 x 5 mg) PO BEDTIME 60 tabs 6RF 30 days Refilled metoclopramide HCl (Reglan) provider aware of possible interaction and is monitoring 5 mg PO QIDACHS 120 tabs 6RF K31.84 - Gastroparesis simethicone after meals 180 mg PO BID 60 caps 6RF 30 days sucralfate (Carafate) 10 mL PO TID 414 mL 1RF R19.7 - Diarrhea, unspecified dexlansoprazole (Dexilant) 60 mg PO DAILY 90 caps 1RF 30 days Coding Level of Care Code Est Pt Level 3 (56849) Diagnoses Irritable bowel syndrome with constipation K58.1 Gastroesophageal reflux disease, unspecified whether esophagitis present K21.9 Esophagitis presence: esophagitis presence not specified Gastroparesis K31.84 Irritable larynx syndrome J38.7 Fatigue R53.83
== END 2023-05-08 15:05 | disposition home or self-care (01) ==
PROVIDERS: PCP Student in an Organized Health Care Education/Training Program; Visit Provider Nurse Practitioner
DX: K58.1 Irritable bowel syndrome with constipation (principal); K21.9 Gastro-esophageal reflux disease without esophagitis; K31.84 Gastroparesis; J38.7 Other diseases of larynx; R53.83 Other fatigue
CPT/HCPCS: 99213

== ENCOUNTER 2023-05-08 13:58 | Outpatient (REF) | payer MEDICAID, SELFPAY ==
[2023-05-08 15:22] LABS: MANUAL DIFF FLAG NO
[2023-05-08 15:54] LABS: Basophils Absolute Auto 0.1 X10*3/uL (0.0-0.2); Basophils Percent Auto 0.5 % (0-2); Eosinophils Absolute Auto 0.2 X10*3/uL (0.0-0.4); Eosinophils Percent Auto 2.2 % (0-4); Hemoglobin 10.7 g/dl (12.0-16.0); Imm Gran Abs Auto 0.04 X10*3/uL (0.00-0.03); Imm Gran Pct Auto 0.4 % (0.0-0.4); Lymphocytes Absolute Auto 2.2 X10*3/uL (1.2-4.9); Lymphocytes Percent Auto 22.7 % (20-40); Mean Corpuscular HGB Conc 30.6 g/dl (31.0-35.0); Mean Corpuscular Hemoglobin 24.1 pg (27.0-33.0); Mean Corpuscular Volume 78.8 fL (80.0-98.0); Mean Platelet Volume 11.9 fL (9.4-12.3); Monocytes Absolute Auto 0.6 X10*3/uL (0.1-1.2); Neutrophils Absolute Auto 6.5 x10*3/uL (2.0-8.3); Neutrophils Percent Auto 68.2 % (45-73); Platelet Count 315 X10*3/uL (160-400); Red Blood Count 4.44 X10*6/uL (4.20-5.50); Red Cell Distribution Width 15.9 % (11.0-16.0); White Blood Count 9.5 X10*3/uL (4.8-10.8)
[2023-05-08 16:22] LABS: Alanine Aminotransferase 13 U/L (0-31); Albumin Level 4.4 g/dL (3.5-5.0); Alkaline Phosphatase 60 U/L (39-117); Anion Gap 10 (12-20); Aspartate Amino Transferase 16 U/L (5-31); Bilirubin Total 0.3 mg/dL (0.0-1.0); Blood Urea Nitrogen 7 mg/dL (9-16); Calcium 9.4 mg/dL (8.4-10.2); Carbon Dioxide 28 mmol/L (22-29); Chloride 105 mmol/L (96-108); Estimated Glomerular Filt Rate > 60; Glucose Random 99 mg/dL (60-115); Potassium 3.6 mmol/L (3.3-5.1); Sodium 139 mmol/L (135-145); Total Protein 7.5 g/dL (6.5-8.0)
[2023-05-08 16:36] LABS: TSH reflex Free T4 1.32 uIU/mL (0.32-4.0)
[2023-05-13 10:33] LABS: Vitamin D 25-OH, D2 <4 ng/mL; Vitamin D 25-OH, D3 19 ng/mL; Vitamin D 25-OH, Total 19 ng/mL (30-100)
== END 2023-05-08 13:59 | disposition home or self-care (01) ==
LOC: HO.LAB 13:58
PROVIDERS: PCP Student in an Organized Health Care Education/Training Program; Visit Provider Nurse Practitioner
DX: K58.1 Irritable bowel syndrome with constipation (principal); K21.9 Gastro-esophageal reflux disease without esophagitis; K31.84 Gastroparesis; J38.7 Other diseases of larynx; R53.83 Other fatigue
CPT/HCPCS: 36415; 80053; 82306; 84443; 85025; 99212

== ENCOUNTER 2023-05-14 14:52 | Outpatient (AMB) | payer MEDICAID, SELFPAY ==
[2023-05-14 14:55] VITALS: BP 120/62; PULSE 103; BMI 34.8
--- NOTE | 2023-05-14 14:55 | MHC.OFFVIS ---
Intake Vital Signs 05/14/23 14:55 Height 4 ft 11 in Weight 172 lb 6.424 oz BMI 34.8 BP 120/62 Blood Pressure Location Rt brachial Position Sitting Pulse 103 H Pulse Source Pulse Oximeter Intake Visit Reasons: 2 mth f/up KM Allergies Iodinated Contrast Media [IV DYE, IODINE CONTAINING CONTRAST ] Allergy (Intermediate, Verified 05/14/23 14:59) SHORTNESS OF BREATH citalopram [From CELEXA] Allergy (Unknown, Verified 05/14/23 14:59) VOMITTING duloxetine [Cymbalta] Allergy (Unknown, Verified 05/14/23 14:59) unknown morphine [MORPHINE] Allergy (Unknown, Verified 05/14/23 14:59) PALPITATIONS-PT PREFERS NOT TO TAKE tramadol [TRAMADOL] Allergy (Unknown, Verified 05/14/23 14:59) VOMITING Medication List - Last Reconciled 05/14/23 by Michell Espinoza PROCESS CONTROL MANAGER-C albuterol sulfate 90 mcg/actuation (Ventolin HFA) 1 inh inhalation QID azelastine 1 spray intranasal DAILY bisacodyl (Dulcolax (bisacodyl)) 10 mg (2 x 5 mg) PO BEDTIME 30 days ardcvmfbak-xfwderidjaoig-jikg 50-325-40 mg 1 tab PO Q8H PRN clotrimazole-betamethasone 1-0.05 % 1 appl topical BID 5 days dexlansoprazole (Dexilant) 60 mg PO DAILY 30 days diclofenac sodium 1% 4 grams topical BID dicyclomine 10 mg PO TID diphenhydramine HCl (Allergy (diphenhydramine)) 25 mg PO TID PRN famotidine 40 mg PO BEDTIME ibuprofen 400 mg PO Q4-6H PRN nncdif-phcfsqik-gzhvwuk 24,000-76,000 -120,000 unit (Creon) 1 cap PO TID loratadine (Children's Allergy Relief (loratadine)) 10 mL PO DAILY lorazepam 1 mg PO BEDTIME PRN metoclopramide HCl (Reglan) 5 mg PO QIDACHS paroxetine HCl 20 mg PO DAILY pregabalin 50 mg PO BEDTIME pyridoxine (vitamin B6) 100 mg PO DAILY 90 days simethicone 180 mg PO BID 30 days sucralfate (Carafate) 10 mL PO TID trazodone 50 mg PO BEDTIME PRN HPI 2 mth f/up KM HPI Details Ambika is a 38-year-old female with past medical history of syncope who presented last visit for follow-up and was noted to have abnormal findings on EKG and reported chest tightness. She was sent to the ER for evaluation and ruled out for ACS. Today she reports that she no longer has chest discomfort. She describes that she had just had COVID prior to last visit. Her breathing is back to normal. She has no shortness of breath, palpitations, presyncope, syncope, PND, orthopnea or edema. She reports good activity tolerance. Takes all meds as directed. is present. 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 [facility] Medical History Recurrent nephrolithiasis Vitamin D deficiency Obesity History of thyroiditis Fibroadenoma Lipoma Fibromyalgia NURIA positive Hx of lipoma Surgical History History of esophagogastroduodenoscopy (EGD) History of wisdom tooth extraction Family History Father Diabetes Heart attack Asthma Maternal Grandmother Diabetes HTN (hypertension) Parkinson disease Breast cancer Mother Diabetes Family history of diabetes mellitus Sister Asthma Maternal Grandfather Parkinson disease Social History Household Members: Children [facility] Are you a primary foster care worker to a significant other at home: No 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) Alcohol intake: never Patient Tobacco Use Status: Never used Tobacco Second Hand Smoke Exposure: Yes (Neighbors) service: No Current occupational status: disabled Sexual orientation: Straight/Heterosexual Gender identity: Female Female Reproductive History Menstrual Age of Menarche: 13 Review of Systems Const All systems reviewed & are unremarkable except as noted in HPI and below ENT Reports dizziness Card Denies chest pain, Denies chest pain at rest, Denies chest pain with activity, Denies rapid heart rate, Denies pedal edema, Denies edema, Denies leg edema, Denies lightheadedness, Denies palpitations, Denies dyspnea, Denies dyspnea on exertion and Denies orthopnea Resp Denies cough, Denies dyspnea and Denies dyspnea on exertion GI Denies hematochezia and Denies change in stool character Musc Denies abnormal gait, Denies limited range of motion, Denies muscle cramps, Denies muscle weakness, Denies numbness, Denies radiating pain into limb, Denies stiffness and Denies tingling Neuro Denies abnormal gait, Reports dizziness, Denies numbness and Denies tingling Endo Denies palpitations Physical Exam Vital Signs: Last Vital Signs Pulse 103 H 05/14/23 14:55 BP 120/62 05/14/23 14:55 BMI result Body Mass Index 34.8 Const General: cooperative, healthy appearing, comfortable and no acute distress Orientation/consciousness: patient oriented x3 Resp Effort & Inspection: normal respiratory effort Auscultation: clear to auscultation bilaterally, no rales, no rhonchi and no wheezes Cardio Jugular venous distension: no JVD Rate: regular rate Rhythm: regular rhythm Heart sounds: S1 normal heart sound present, S2 normal heart sound present, no murmurs and no rubs Neuro General: patient oriented x3 Extrem General: Yes normal to inspection, No no pedal edema and No calf tenderness Psych Appearance: grossly normal Mental Status: mental status grossly normal Speech and movement: Normal speech and movement present Assessment & Plan Assessment & Plan (1) Abnormal ECG: Code(s): R94.31 - Abnormal electrocardiogram [ECG] [EKG] Plan: Presented for routine follow-up last visit with reports of chest discomfort. She had had COVID 2 weeks prior. Her EKG that day did have findings that were abnormal compared to prior EKG. It showed sinus rhythm with T-wave inversion as well as some ST depressions laterally. She was sent to the ER for evaluation. She ruled out for ACS. Her lab work showed that potassium was on low side at 3.4, troponin less than 2.7, magnesium 1.9. She had previously undergone cardiac testing with echocardiogram on 01/18/2022 showing EF 60-65%, normal study. An exercise nuclear stress test was done on 01/22/2022 showing exercise 5 minutes with EKG changes suggestive of ischemia however nuclear imaging was normal. Today she reports no recurrent chest discomfort since her hospital discharge. She has good activity tolerance. No need for further cardiac testing at this time. EKG changes likely nonspecific. Low cardiac risk profile. Signs and symptoms of angina reviewed. Instructed to call if she has any recurrent symptoms. Cardiology follow-up as needed. (2) Chest pain: Code(s): R07.9 - Chest pain, unspecified Qualifiers: Chest pain type: precordial pain Qualified Code(s): R07.2 - Precordial pain (3) Syncope: Code(s): R55 - Syncope and collapse Qualifiers: Syncope type: unspecified Qualified Code(s): R55 - Syncope and collapse Plan: Syncopal episode approximately 2 years ago. No recurrent episodes since that time. Her description of the event is most likely vasovagal. Reviewed the need of good hydration, recognizing symptoms and get in a laying down position if symptoms occurred. Instructed to notify this office if she has any recurrent episode Coding Level of Care Code Est Pt Level 4 (01829) Diagnoses Abnormal ECG R94.31 Precordial pain R07.2 Chest pain type: precordial pain Syncope, unspecified syncope type R55 Syncope type: unspecified Time Spent (min) 28
== END 2023-05-14 16:04 | disposition home or self-care (01) ==
PROVIDERS: PCP Student in an Organized Health Care Education/Training Program; Visit Provider Nurse Practitioner Family
DX: R94.31 Abnormal electrocardiogram [ECG] [EKG] (principal); R07.2 Precordial pain; R55 Syncope and collapse
CPT/HCPCS: 99214

== ENCOUNTER → 2023-05-14 14:52 | Outpatient (BNVA) | payer MEDICAID, SELFPAY | PROVIDERS: PCP Student in an Organized Health Care Education/Training Program; Visit Provider Nurse Practitioner Family | DX: R55 Syncope and collapse (principal); R94.31 Abnormal electrocardiogram [ECG] [EKG]; R07.2 Precordial pain | CPT/HCPCS: 99212 ==

== ENCOUNTER 2023-06-03 15:20 | Outpatient (REF) | payer MEDICAID, SELFPAY ==
[2023-06-03 15:46] LABS: MANUAL DIFF FLAG NO
[2023-06-03 15:58] LABS: Basophils Absolute Auto 0.1 X10*3/uL (0.0-0.2); Basophils Percent Auto 0.6 % (0-2); Eosinophils Absolute Auto 0.3 X10*3/uL (0.0-0.4); Eosinophils Percent Auto 2.5 % (0-4); Hematocrit 36.6 % (37.0-47.0); Hemoglobin 11.3 g/dl (12.0-16.0); Imm Gran Abs Auto 0.05 X10*3/uL (0.00-0.03); Imm Gran Pct Auto 0.5 % (0.0-0.4); Lymphocytes Absolute Auto 2.3 X10*3/uL (1.2-4.9); Lymphocytes Percent Auto 21.7 % (20-40); Mean Corpuscular HGB Conc 30.9 g/dl (31.0-35.0); Mean Corpuscular Hemoglobin 24.5 pg (27.0-33.0); Mean Corpuscular Volume 79.4 fL (80.0-98.0); Mean Platelet Volume 11.5 fL (9.4-12.3); Monocytes Absolute Auto 0.6 X10*3/uL (0.1-1.2); Monocytes Percent Auto 5.7 % (2-11); Neutrophils Absolute Auto 7.2 x10*3/uL (2.0-8.3); Platelet Count 320 X10*3/uL (160-400); Red Blood Count 4.61 X10*6/uL (4.20-5.50); Red Cell Distribution Width 15.5 % (11.0-16.0); White Blood Count 10.4 X10*3/uL (4.8-10.8)
[2023-06-03 16:19] LABS: Iron 31 mcg/dL (30-160); Percent Iron Saturation 9 % (15-50); Total Iron Binding Capacity 360 mcg/dL (228-428); Unsaturated Iron Binding 329 ug/dL
[2023-06-03 16:34] LABS: Ferritin 7 ng/mL (10-122)
== END 2023-06-03 15:21 | disposition home or self-care (01) ==
LOC: HO.LAB 15:20
PROVIDERS: Absent Provider Student in an Organized Health Care Education/Training Program; PCP Student in an Organized Health Care Education/Training Program; Visit Provider Registered Nurse
DX: D50.9 Iron deficiency anemia, unspecified (principal)
CPT/HCPCS: 36415; 82728; 83540; 85025

== ENCOUNTER 2023-06-19 13:58 | Outpatient (AMB) | payer MEDICAID, SELFPAY ==
--- NOTE | 2023-06-19 14:02 | A.OFFVIS_ITS ---
Intake Vital Signs 06/19/23 14:14 Height 4 ft 11 in Weight 172 lb 6.424 oz BMI 34.8 BP 105/58 L Blood Pressure Location Lt brachial Position Sitting Pulse 93 Intake Visit Reasons: 6 week follow up Intake Note: Patient presents to in office visit today in 6 weeks follow up of labs. CC: Patient c/o palpitation and chest pains. She reports she sometimes has heartburn, acid reflux, and abdominal pain. She states she has been having bowel movements more often. Per patient she has been having abdominal cramps as wel sometimes. Allergies Iodinated Contrast Media [IV DYE, IODINE CONTAINING CONTRAST ] Allergy (Intermediate, Verified 06/19/23 14:23) SHORTNESS OF BREATH citalopram [From CELEXA] Allergy (Unknown, Verified 06/19/23 14:23) VOMITTING duloxetine [Cymbalta] Allergy (Unknown, Verified 06/19/23 14:23) unknown morphine [MORPHINE] Allergy (Unknown, Verified 06/19/23 14:23) PALPITATIONS-PT PREFERS NOT TO TAKE tramadol [TRAMADOL] Allergy (Unknown, Verified 06/19/23 14:23) VOMITING HPI 6 week follow up HPI Details [place]ic #Renetta Live Sent note for EGD as she is now ready. She found the carafate soothing for her throat, and it helps her GERD. BUT she did have an episode of CIC (no more post COVID diarrhea) where she had a feeling of pain almost into her vagina. She was not certain if this was a kidney stone or constipation so she bought an [id number] mineral enema. She used it but this did not produce a bowel movement for 2 or 3 days. She then saw her urologist who thought was a stone in treated her with pre DM, a steroid, and Flomax. This seemed to improve her symptoms. She is moving her bowels back at her baseline, however constipation really is her baseline with small rabbit pellet stools being moved most of the time. In the past she has failed fiber therapy, MiraLax, senna, Colace so we will progress her to bisacodyl. The constipation is likely worsening her heartburn is well. She continues on Dexilant and famotidine for the GERD. She wants to use the Carafate p.r.n. and this is fine since it does seem to help subtle symptoms. She also continues on reglan 5mg. We had ordered an EGD in the past but then she got COVID and was in [place] so this was postponed. She is now ready to have it scheduled so long as it is not happening during holidays. She also has other doorknob multiple vague complaints incl fatigue, sinus pain, etc. Urology ordered sleep study as she does not sleep well. Return office visit in 6 weeks to titrate the bisacodyl EGD Scheduled for September TODAY'S VISIT [place] #Renetta Zuluaga She is here today with her who is quiet but supportive. She is experiencing palpitations today, and there was some variability of the pulse ox monitor, but I do her pulse and she is at 90 BPM and regular. She continues to follow with cardiology for this and intermittent chest pain. Long conversation about anemia and her oral iron therapy. Because it upsets her stomach and because we want her to be able to continue with this therapy I have advised her to take it with. While it is absorb slightly better on empty stomach most patients really can not tolerate this and this generally just causes early discontinuance of the therapy when slower absorption and better compliance will probably improve the anemia out look better in the long run. She received the bisacodyl but has not tried it yet because her BM's have been doing well and she has not had a return of the pain from pushing. She continues on Dexilant and famotidine for the GERD. She wants to use the Carafate p.r.n. and this is fine since it does seem to help subtle symptoms. She also continues on reglan 5mg. She is having intermittent problems with a warm feeling that will spread across her upper abd, and will be accompanied by acid brash coming up my throat. She also notes that she seems to have more GERD and acid brash when her stomach is empty. Her feels she has the sx because she does not eat, she admits her appetite is very poor when I eat I feel very sleepy and lose my drive to do anything, including sex and I have trouble catching my breath. Yet, she can not lose weight. She also c/o LINK, body aches and other general malaise sx. She has had normal thyroid studies, and is anemic but this is mild. No liver lab problems, no other lab problems noted. I suggest she try to snack all day long. Think that smaller more frequent meals with serve her better I encouraged her to buy that do not require a lot of preparation. Other that I really not sure what to make of all of her symptoms. At this point she is willing to wait until after the upper endoscopy to see me again. We doing this because she has intermittent episodes of dysphagia. [facility] Medical History (Updated 06/19/23 @ 16:50 by ELY Garcia) Acute diarrhea Recurrent nephrolithiasis Vitamin D deficiency Obesity History of thyroiditis Fibroadenoma Lipoma Fibromyalgia NURIA positive Hx of lipoma Surgical History History of esophagogastroduodenoscopy (EGD) History of wisdom tooth extraction Family History Father Diabetes Heart attack Asthma Maternal Grandmother Diabetes HTN (hypertension) Parkinson disease Breast cancer Mother Diabetes Family history of diabetes mellitus Sister Asthma Maternal Grandfather Parkinson disease Social History Household Members: Children Housing: Condominium Are you a primary medicare sales executive to a significant other at home: No Do you presently have visiting 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) Alcohol intake: never Patient Tobacco Use Status: Never used Tobacco Second Hand Smoke Exposure: Yes (Neighbors) service: No Current occupational status: disabled Sexual orientation: Straight/Heterosexual Gender identity: Female Female Reproductive History Menstrual Age of Menarche: 13 Review of Systems Const Reports body aches, Reports fatigue, Denies fever(s), Reports headache(s), Reports malaise, Denies night sweats, Reports poor appetite and Denies weight loss ENT Reports Normal hearing present, Denies dental pain, Denies dysphagia, Reports headache(s), Denies hearing loss, Denies mouth pain, Denies odynophagia, Denies throat swelling, Denies tongue swelling and Reports other (Dentition adequate) Card Reports palpitations and Reports dyspnea Resp Reports dyspnea GI Reports abdominal pain, Denies melena, Reports bloating, Denies hematochezia, Reports constipation, Denies GI cramping, Denies dysphagia, Denies excessive flatus, Denies early satiety, Reports dyspepsia, Reports heartburn, Denies diarrhea, Denies nausea, Denies odynophagia, Denies vomiting and Denies hematemesis Skin/Breast Denies pruritus, Denies lesions, Denies rash and Denies jaundice Neuro Reports Normal hearing present, Denies Abnormal speech present and Reports headache(s) Endo Reports fatigue and Reports palpitations Aller/Immun Denies throat swelling and Denies tongue swelling Physical Exam Vital Signs: Last Vital Signs Pulse 93 06/19/23 14:14 BP 105/58 L 06/19/23 14:14 BMI result Body Mass Index 34.8 Const General: cooperative, no acute distress, well developed and well groomed Nutritional Appearance: well nourished and obese Orientation/consciousness: oriented to person, oriented to place and oriented to time Limitations: language barrier HEENT Head: Yes normocephalic and Yes atraumatic Eyes General: appearance normal, both eyes and all related structures Pupils: Equal, round and reactive pupils present Neck Neck: Yes normal visual inspection and Yes no lymphadenopathy Thyroid: Thyroid normal Resp Effort & Inspection: normal respiratory effort and able to speak in complete sentences Auscultation: clear to auscultation bilaterally Cardio Rate: regular rate Rhythm: regular rhythm Heart sounds: Normal, physiologic split S2 sound present Peripheral pulses: radial pulses present and posterior tibial pulses present GI Inspection: No distended, No Abdominal panniculus present and Yes obesity Palpation (GI): Soft to palpation, nontender, no guarding, not rigid and No hepatosplenomegaly present Percussion: Yes normal to percussion Auscultation: normal bowel sounds Rectal Exam - Female: deferred Skin General skin exam: no rashes or lesions noted, turgor normal, skin not dry, no jaundice, No spider nevi and no striae Rashes: no rashes Nails: normal Neuro General: oriented to person, oriented to place and oriented to time Cranial nerves: Yes Equal, round and reactive pupils present and Yes Normal hearing present Speech: No Abnormal speech present Extrem General: Yes normal to inspection, No clubbing, No cyanosis and No edema Psych Appearance: grossly normal and well kempt Mental Status: mental status grossly normal Speech and movement: Normal speech and movement present Affect: normal affect Attitude: cooperative Thought process: Normal thought process present and not confabulating Thought content: Normal thought content present Insight: Limited insight present (Psych) Judgement: Limited judgement present (Psych) Assessment & Plan Assessment & Plan (1) Gastroparesis: Code(s): K31.84 - Gastroparesis (2) GERD (gastroesophageal reflux disease): Code(s): K21.9 - Gastro-esophageal reflux disease without esophagitis Qualifiers: Esophagitis presence: esophagitis presence not specified Qualified Code(s): K21.9 - Gastro-esophageal reflux disease without esophagitis (3) Oropharyngeal dysphagia: Code(s): R13.12 - Dysphagia, oropharyngeal phase (4) Cricopharyngeal hypertrophy: Code(s): J39.2 - Other diseases of pharynx (5) Irritable larynx syndrome: Comment: DX via her ENT Code(s): J38.7 - Other diseases of larynx Plan EGD Scheduled for September TODAY'S VISIT [place] #Renetta Live She is here today with her who is quiet but supportive. She is experiencing palpitations today, and there was some variability of the pulse ox monitor, but I do her pulse and she is at 90 BPM and regular. She continues to follow with cardiology for this and intermittent chest pain. Long conversation about anemia and her oral iron therapy. Because it upsets her stomach and because we want her to be able to continue with this therapy I have advised her to take it with. While it is absorb slightly better on empty stomach most patients really can not tolerate this and this generally just causes early discontinuance of the therapy when slower absorption and better compliance will probably improve the anemia out look better in the long run. She received the bisacodyl but has not tried it yet because her BM's have been doing well and she has not had a return of the pain from pushing. She continues on Dexilant and famotidine for the GERD. She wants to use the Carafate p.r.n. and this is fine since it does seem to help subtle symptoms. She also continues on reglan 5mg. She is having intermittent problems with a warm feeling that will spread across her upper abd, and will be accompanied by acid brash coming up my throat. She also notes that she seems to have more GERD and acid brash when her stomach is empty. Her feels she has the sx because she does not eat, she admits her appetite is very poor when I eat I feel very sleepy and lose my drive to do anything, including sex and I have trouble catching my breath. Yet, she can not lose weight. She also c/o LINK, body aches and other general malaise sx. She has had normal thyroid studies, and is anemic but this is mild. No liver lab problems, no other lab problems noted. I suggest she try to snack all day long. Think that smaller more frequent meals with serve her better I encouraged her to buy that do not require a lot of preparation. Other that I really not sure what to make of all of her symptoms. At this point she is willing to wait until after the upper endoscopy to see me again. We doing this because she has intermittent episodes of dysphagia. Coding Level of Care Code Est Pt Level 3 (17348) Diagnoses Gastroparesis K31.84 Gastroesophageal reflux disease, unspecified whether esophagitis present K21.9 Esophagitis presence: esophagitis presence not specified Oropharyngeal dysphagia R13.12 Cricopharyngeal hypertrophy J39.2 Irritable larynx syndrome J38.7
[2023-06-19 14:14] VITALS: BP 105/58; PULSE 93; BMI 34.8
== END 2023-06-19 15:39 | disposition home or self-care (01) ==
PROVIDERS: PCP Student in an Organized Health Care Education/Training Program; Visit Provider Nurse Practitioner
DX: K31.84 Gastroparesis (principal); K21.9 Gastro-esophageal reflux disease without esophagitis; R13.12 Dysphagia, oropharyngeal phase; J39.2 Other diseases of pharynx; J38.7 Other diseases of larynx
CPT/HCPCS: 99213

== ENCOUNTER → 2023-06-19 13:58 | Outpatient (BNVA) | payer MEDICAID, SELFPAY | PROVIDERS: PCP Student in an Organized Health Care Education/Training Program; Visit Provider Nurse Practitioner | DX: K31.84 Gastroparesis (principal); K21.9 Gastro-esophageal reflux disease without esophagitis; R13.12 Dysphagia, oropharyngeal phase; J39.2 Other diseases of pharynx; J38.7 Other diseases of larynx | CPT/HCPCS: 99212 ==

== ENCOUNTER 2023-07-23 18:30 | Emergency (ER) | payer MEDICAID, SELFPAY ==
--- NOTE | 2023-07-23 | ECG_ITS ---
Test Reason : chest pain Blood Pressure : / mmHG Vent. Rate : 087 BPM Atrial Rate : 087 BPM P-R Int : 130 ms QRS Dur : 078 ms QT Int : 336 ms P-R-T Axes : 069 057 -06 degrees QTc Int : 404 ms Normal sinus rhythm with sinus arrhythmia Nonspecific ST abnormality Abnormal ECG When compared with ECG of 11-MAR-2023 15:04, Criteria for Septal infarct are no longer Present Referred By: Edgardo Pritchard Electronically Signed By:AMIRAH ANDREW
--- NOTE | ~2023-07-23 | XR_ITS ---
EXAMINATION: XR CHEST CLINICAL INFORMATION: Chest and abdominal pain COMPARISON: Previous x-ray from 2019 TECHNIQUE: 2 views of the chest were obtained. FINDINGS: No significant abnormality is noted involving the heart, lungs, mediastinum, bony thorax or soft tissues. XR/XR chest 2V IMPRESSION: Unremarkable examination.
[2023-07-23 18:50] VITALS: BP 111/67; PULSE 103; RESP 18; TEMP 36.4; O2SAT 99; BMI 34.3
--- NOTE | 2023-07-23 18:51 | ED.GENADULT ---
HPI - General Adult General Chief complaint: Chest Pain Stated complaint: chest pressure Time Seen by Provider: 07/24/23 00:07 History of Present Illness HPI narrative: The patient says that she went to an urgent care this morning because she was having a sense of discomfort in her arms and hands and a sense of swelling in her hands. She also indicated that she had pain in her chest going under her right breast. She also says that she has been having intermittent pains in her right lower abdomen and flank. She also feels extremely tired. She also feels a sense of urinary discomfort and vaginal discomfort. She also says that she had an episode of vomiting earlier today because of discomfort in her epigastrium. She has not had any measured fevers. Related Data Home Medications Medication Instructions Recorded Confirmed lorazepam 1 mg tablet 1 mg PO BEDTIME PRN Anxiety 03/29/20 05/14/23 azelastine 137 mcg (0.1 %) nasal 1 spray intranasal DAILY 06/12/21 05/14/23 spray aerosol ibuprofen 400 mg tablet 400 mg PO Q4-6H PRN Pain 11/20/21 05/14/23 diclofenac sodium 1 % topical gel 4 g topical BID 07/30/22 05/14/23 trazodone 50 mg tablet 50 mg PO BEDTIME PRN 07/30/22 05/14/23 albuterol sulfate 90 mcg/actuation 1 inh inhalation QID 09/19/22 05/14/23 aerosol inhaler (Ventolin HFA) geldddkyzm-npueruoqoofyj-gjmsdlsh 1 tab PO Q8H PRN 09/19/22 05/14/23 50 mg-325 mg-40 mg tablet loratadine 5 mg/5 mL oral solution 10 ml PO DAILY 09/19/22 05/14/23 (Children's Allergy Relief (loratadine)) paroxetine HCl 20 mg tablet 20 mg PO DAILY 09/19/22 05/14/23 letutg-vzrzttyx-rglxsyu 1 cap PO TID 05/08/23 05/14/23 24,000-76,000-120,000 unit capsule,delayed rel (Creon) cholecalciferol (vitamin D3) 25 25 mcg PO DAILY 06/19/23 mcg (1,000 unit) tablet ferrous gluconate 324 mg (38 mg 324 mg PO DAILY 06/19/23 iron) tablet Previous Rx's Medication Instructions Recorded clotrimazole-betamethasone 1 1 appl topical BID 5 days #45 grams 03/13/22 %-0.05 % topical cream pyridoxine (vitamin B6) 100 mg 100 mg PO DAILY 90 days #90 tabs 03/04/23 tablet diphenhydramine HCl 25 mg capsule 25 mg PO TID PRN allergy symptoms 03/12/23 (Allergy (diphenhydramine)) - hives #30 caps pregabalin 50 mg capsule 50 mg PO BEDTIME #30 caps 03/12/23 famotidine 40 mg tablet 40 mg PO BEDTIME #90 tabs 03/18/23 dicyclomine 10 mg capsule 10 mg PO TID #90 caps 04/24/23 bisacodyl 5 mg tablet,delayed 10 mg (2 x 5 mg) PO BEDTIME 30 05/08/23 release (Dulcolax (bisacodyl)) days #60 tabs dexlansoprazole 60 mg 60 mg PO DAILY 30 days #90 caps 05/08/23 capsule,biphase delayed release (Dexilant) metoclopramide HCl 5 mg tablet 5 mg PO QIDACHS #120 tabs 05/08/23 (Reglan) simethicone 180 mg capsule 180 mg PO BID 30 days #60 caps 05/08/23 sucralfate 100 mg/mL oral 10 ml PO TID #414 mL 05/08/23 suspension (Carafate) Allergies Allergy/AdvReac Type Severity Reaction Status Date / Time Iodinated Contrast Media Allergy Intermediate SHORTNESS Verified 06/19/23 14:23 [IV DYE, IODINE CONTAINING OF BREATH CONTRAST ] citalopram [From CELEXA] Allergy Unknown VOMITTING Verified 06/19/23 14:23 duloxetine [Cymbalta] Allergy Unknown unknown Verified 06/19/23 14:23 morphine [MORPHINE] Allergy Unknown PALPITATIONS-PT Verified 06/19/23 14:23 PREFERS NOT TO TAKE tramadol [TRAMADOL] Allergy Unknown VOMITING Verified 06/19/23 14:23 Review of Systems Review of Systems: Yes all other systems are reviewed and are negative [facility] Past Medical History Medical History (Updated 07/24/23 @ 02:49 by Edgardo Pritchard MD) Acute diarrhea Recurrent nephrolithiasis Vitamin D deficiency Obesity History of thyroiditis Fibroadenoma Lipoma Fibromyalgia NURIA positive Hx of lipoma Surgical History History of esophagogastroduodenoscopy (EGD) History of wisdom tooth extraction Family History Family History Father Diabetes Heart attack Asthma Maternal Grandmother Diabetes HTN (hypertension) Parkinson disease Breast cancer Mother Diabetes Family history of diabetes mellitus Sister Asthma Maternal Grandfather Parkinson disease Social History Social History Household Members: Children Housing: [facility] Are you a primary healthcare network consultant to a significant other at home: No 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) Alcohol intake: never Patient Tobacco Use Status: Never used Tobacco Second Hand Smoke Exposure: Yes (Neighbors) Advance Directives: No Advance Directives Information Provided: No service: No Current occupational status: disabled Sexual orientation: Straight/Heterosexual Gender identity: Female Physical Exam ED Vital Signs: Vital Signs - 24 hr 07/23/23 18:50 07/23/23 23:46 07/24/23 01:35 Temperature 97.6 F 97.9 F Pulse Rate 103 H 107 H 100 Respiratory Rate 18 18 17 Blood Pressure 111/67 126/88 119/66 Pulse Oximetry 99 99 100 Oxygen Delivery Method Room Air Room Air Room Air BMI result Body Mass Index 34.3 Const Other: The patient is awake and alert. She does not look obviously acutely ill. She looks somewhat pale and wan. HENMT Other: Face is symmetrical, mucous membranes moist, the pharynx is unremarkable. Eyes Other: Pupils are round equal, conjunctivae are clear, extraocular movements intact Neck Other: Moving her neck easily, no lymphadenopathy Chest Other: The patient is exquisitely tender with palpation of the right sternal border particularly at the lower sternum. This seems to reproduce her pain. Resp Effort & Inspection: normal respiratory effort Auscultation: clear to auscultation bilaterally Cardio Other: No murmur Rate: tachycardic Rhythm: regular rhythm Heart sounds: S1 normal heart sound present and S2 normal heart sound present GI Other: The abdomen is soft. There is right-sided tenderness without rebound or guarding. Back/Spine/Pelvis Other: No distinct CVA percussion tenderness Skin Other: Skin is pale and dry Neuro Other: The patient is awake and alert. Face is symmetrical. Speech is clear. Moves extremities normally and symmetrically. Grossly neurologically intact. Extrem Other: No calf swelling or tenderness. No calf asymmetry. No peripheral edema. Course Course Course Narrative: This is a rapid medical exam. Defer additional HPI, ROS, PE to primary provider. 38-year-old female with a history of asthma, fibromyalgia, anemia here with complaints of swelling to both hands and upper abdominal which radiates to the back, chest pain Went to and referred in to the ER Will obtain labs, EKG, CXR VSS Medications Administered Discontinued Medications Generic Name Dose Route Start Last Admin Trade Name Freq PRN Reason Stop Dose Admin Ketorolac Tromethamine 60 mg 07/24/23 01:27 07/24/23 01:35 Ketorolac Tromethamine 60 Mg/2 Ml Vial IM 07/24/23 01:28 60 mg ONCE ONE Administration Medical Decision Making Medical Decision Making [facility] Narrative: The patient is a 38-year-old woman who presents with multiple complaints. Clinically the patient showed a tendency towards tachycardia but otherwise did not look acutely ill or unwell in any way. The patient is investigations today were not very revealing. She has a negative chest x-ray. She has a white count of 12.3 but an unremarkable C-reactive protein. Other labs including urinalysis are unremarkable. EKG shows chronic changes but no acute findings. On her physical exam the most salient finding was exquisite tenderness with palpation of the right sternal border. I think her chest pains are most likely costochondritis. She felt considerably better after ketorolac and I felt she was safe for discharge. She should follow up with her PCP or return to the ER if worse. Lab Data 07/23/23 19:40 07/23/23 19:40 Labs: Lab Results 07/23/23 07/24/23 Range/Units 19:40 01:50 WBC 12.3 H (4.8-10.8) X10*3/uL RBC 5.01 (4.20-5.50) X10*6/uL Hgb 12.2 (12.0-16.0) g/dl Hct 39.7 (37.0-47.0) % MCV 79.2 L (80.0-98.0) fL MCH 24.4 L (27.0-33.0) pg MCHC 30.7 L (31.0-35.0) g/dl RDW 14.8 (11.0-16.0) % Plt Count 319 (160-400) X10*3/uL MPV 11.2 (9.4-12.3) fL Immature Gran % (Auto) 0.2 (0.0-0.4) % Neut % (Auto) 77.1 H (45-73) % Lymph % (Auto) 16.7 L (20-40) % O'Brien % (Auto) 5.0 (2-11) % Eos % (Auto) 0.7 (0-4) % Baso % (Auto) 0.3 (0-2) % Lymph # (Auto) 2.1 (1.2-4.9) X10*3/uL O'Brien # (Auto) 0.6 (0.1-1.2) X10*3/uL Eos # (Auto) 0.1 (0.0-0.4) X10*3/uL Baso # (Auto) 0.0 (0.0-0.2) X10*3/uL Abs Immat Gran (auto) 0.03 (0.00-0.03) X10*3/uL Absolute Neuts (auto) 9.5 H (2.0-8.3) x10*3/uL Absolute Nucleated RBC 0.000 (0.0-0.012) X10*3/uL Nucleated RBC % (auto) 0.0 (0.0-0.2) /100WBC Sodium 139 (135-145) mmol/L Potassium 3.7 (3.3-5.1) mmol/L Chloride 103 (96-108) mmol/L Carbon Dioxide 25 (22-29) mmol/L Anion Gap 15 (12-20) BUN 6 L (9-16) mg/dL Creatinine 0.72 (0.5-1.4) mg/dL Estim Creat Clear Calc 96.7 Estimated GFR > 60 Random Glucose 88 (60-115) mg/dL Calcium 10.1 D (8.4-10.2) mg/dL Total Bilirubin 0.2 (0.0-1.0) mg/dL Direct Bilirubin < 0.2 (0.0-0.5) mg/dL AST 22 (5-31) U/L ALT 22 (0-31) U/L Alkaline Phosphatase 74 (39-117) U/L Troponin I High Sens < 2.7 (<3.5-17.0) ng/L C-Reactive Protein 0.12 (< or = 0.50) mg/dL Total Protein 8.7 H (6.5-8.0) g/dL Albumin 4.8 (3.5-5.0) g/dL Lipase 19 (8-78) U/L Urine Color Yellow Urine Appearance Clear Urine pH 8.5 (5.0-9.0) Ur Specific [place] 1.010 (1.005-1.025) Urine Protein Negative (Neg-Trace) mg/dL Urine Glucose (UA) Negative (Negative) mg/dL Urine Ketones Negative (Negative) mg/dL Urine Blood Negative (Negative) Urine Nitrite Negative (Negative) Ur Leukocyte Esterase Trace H (Negative) Urine RBC 0-2 (0-2) /HPF Urine WBC 0-5 (0-5) /HPF Ur Squamous Epith Cells 3-5 (0-2) /HPF Urine Bacteria None Seen (None Seen) Hyaline Casts 0-2 (0-2) /LPF COVID-19 (FABI) Negative (Negative) COVID-19 Clin Com See Note Independent Interpretation I performed an independent interpretation of an: EKG Interpretation: EKG at 1841 shows normal sinus rhythm with sinus arrhythmia at 87 beats per minute. There are nonspecific ST and T-wave changes similar to previous EKGs. Discharge Plan Discharge Clinical Impression: Acute chest wall pain Patient Disposition: Home, Self-Care Instructions: Costochondritis (ED) Additional Instructions: I think the pain in your chest is most likely coming from the cartilage that connects your ribs to your sternum. You may use ibuprofen and acetaminophen as needed for pain. Please follow-up soon with your regular doctor. Return to the emergency room if significantly worse Prescriptions: No Action clotrimazole-betamethasone 1-0.05 % cream 1 appl topical BID 5 Days Qty: 45 0RF famotidine 40 mg tablet 40 mg PO BEDTIME Qty: 90 2RF dicyclomine 10 mg capsule 10 mg PO TID Qty: 90 6RF lorazepam 1 mg tablet 1 mg PO BEDTIME PRN (Reason: Anxiety) ibuprofen 400 mg tablet 400 mg PO Q4-6H PRN (Reason: Pain) trazodone 50 mg tablet 50 mg PO BEDTIME PRN diclofenac sodium 1 % gel 4 g topical BID loratadine [Children's Allergy Relief(jermaine)] 5 mg/5 mL solution 10 ml PO DAILY paroxetine HCl 20 mg tablet 20 mg PO DAILY ejirycbyfw-mexdtlcogmsir-brps 50-325-40 mg tablet 1 tab PO Q8H PRN albuterol sulfate [Ventolin HFA] 90 mcg/actuation HFA aerosol inhaler 1 inh inhalation QID azelastine 137 mcg (0.1 %) aerosol,spray 1 spray intranasal DAILY pyridoxine (vitamin B6) 100 mg tablet 100 mg PO DAILY 90 Days Qty: 90 3RF bisacodyl [Dulcolax (bisacodyl)] 5 mg tablet,delayed release (DR/EC) 10 mg PO BEDTIME 30 Days Qty: 60 6RF metoclopramide HCl [Reglan] 5 mg tablet 5 mg PO QIDACHS Qty: 120 6RF Rx Instructions: provider aware of possible interaction and is monitoring sucralfate [Carafate] 100 mg/mL suspension 10 ml PO TID Qty: 414 1RF dexlansoprazole [Dexilant] 60 mg capsule,biphase delayed releas 60 mg PO DAILY 30 Days Qty: 90 1RF simethicone 180 mg capsule 180 mg PO BID 30 Days Qty: 60 6RF Rx Instructions: after meals Creon 24,000-76,000 -120,000 unit capsule,delayed release(DR/EC) 1 cap PO TID Rx Instructions: administer with meals and/or snacks ferrous gluconate 324 mg (38 mg iron) tablet 324 mg PO DAILY cholecalciferol (vitamin D3) 25 mcg (1,000 unit) tablet 25 mcg PO DAILY diphenhydramine HCl [Allergy (diphenhydramine)] 25 mg capsule 25 mg PO TID PRN (Reason: allergy symptoms - hives) Qty: 30 1RF pregabalin 50 mg capsule 50 mg PO BEDTIME Qty: 30 2RF Referrals: Jennie Murray MD [Primary Care Provider] - (Costochondritis) Interventions: ED Discharge Assessment Last Done: 07/24/23 02:53 Discharge Date/Time: 07/24/23 02:57
[2023-07-23 20:01] LABS: MANUAL DIFF FLAG NO
[2023-07-23 20:02] LABS: Basophils Percent Auto 0.3 % (0-2); Eosinophils Absolute Auto 0.1 X10*3/uL (0.0-0.4); Eosinophils Percent Auto 0.7 % (0-4); Hematocrit 39.7 % (37.0-47.0); Hemoglobin 12.2 g/dl (12.0-16.0); Imm Gran Abs Auto 0.03 X10*3/uL (0.00-0.03); Imm Gran Pct Auto 0.2 % (0.0-0.4); Lymphocytes Absolute Auto 2.1 X10*3/uL (1.2-4.9); Lymphocytes Percent Auto 16.7 % (20-40); Mean Corpuscular HGB Conc 30.7 g/dl (31.0-35.0); Mean Corpuscular Hemoglobin 24.4 pg (27.0-33.0); Mean Corpuscular Volume 79.2 fL (80.0-98.0); Mean Platelet Volume 11.2 fL (9.4-12.3); Monocytes Absolute Auto 0.6 X10*3/uL (0.1-1.2); Neutrophils Absolute Auto 9.5 x10*3/uL (2.0-8.3); Neutrophils Percent Auto 77.1 % (45-73); Platelet Count 319 X10*3/uL (160-400); Red Blood Count 5.01 X10*6/uL (4.20-5.50); Red Cell Distribution Width 14.8 % (11.0-16.0); White Blood Count 12.3 X10*3/uL (4.8-10.8)
[2023-07-23 20:19] LABS: COVID-19 Test Negative (Negative); IDNOW Serial# 152EDE1D
[2023-07-23 20:21] LABS: Alanine Aminotransferase 22 U/L (0-31); Albumin Level 4.8 g/dL (3.5-5.0); Alkaline Phosphatase 74 U/L (39-117); Anion Gap 15 (12-20); Aspartate Amino Transferase 22 U/L (5-31); Bilirubin Direct < 0.2 mg/dL (0.0-0.5); Bilirubin Total 0.2 mg/dL (0.0-1.0); Blood Urea Nitrogen 6 mg/dL (9-16); Calcium 10.1 mg/dL (8.4-10.2); Carbon Dioxide 25 mmol/L (22-29); Chloride 103 mmol/L (96-108); Creatinine Clr Calc Pharmacy 96.7; Estimated Glomerular Filt Rate > 60; Glucose Random 88 mg/dL (60-115); Lipase 19 U/L (8-78); Potassium 3.7 mmol/L (3.3-5.1); Sodium 139 mmol/L (135-145); Total Protein 8.7 g/dL (6.5-8.0)
[2023-07-23 20:32] LABS: Troponin-I High Sensitivity < 2.7 ng/L (<3.5-17.0)
[2023-07-23 23:46] VITALS: BP 126/88; PULSE 107; RESP 18; TEMP 36.6; O2SAT 99
[2023-07-24 01:13] LABS: C Reactive Protein 0.12 mg/dL (< or = 0.50)
[2023-07-24 01:35] VITALS: BP 119/66; PULSE 100; RESP 17; O2SAT 100
[2023-07-24] MEDS: Ketorolac Tromethamine 60 MG/2 ML VIAL IM (01:35)
[2023-07-24 02:05] LABS: Appearance Urine Clear; Color Urine Yellow; Glucose Urine UA Negative (Negative); Leukocyte Esterase Urine Trace (Negative); Nitrite Urine Negative (Negative); PH 8.5 (5.0-9.0); UMIC TRIGGER UACC YES; Urine Blood Negative (Negative); Urine Ketones Negative (Negative); Urine Protein Negative (Neg-Trace)
[2023-07-24 02:10] LABS: Bacteria Urine None Seen (None Seen); Hyaline Casts Urine 0-2 /LPF (0-2); RBC Urine 0-2 /HPF (0-2); WBC Urine 0-5 /HPF (0-5)
== END 2023-07-24 02:57 | disposition home or self-care (01) ==
PROVIDERS: Nurse Practitioner Family; Emergency Provider Emergency Medicine; PCP Student in an Organized Health Care Education/Training Program
DX: R07.89 Other chest pain (principal); Z11.52 Encounter for screening for COVID-19
CPT/HCPCS: 36415; 71046; 80048; 80076; 81001; 83690; 84484; 85025; 86140; 87635; 93005; 96372; 99284; 99285; J1885

== ENCOUNTER → 2023-07-23 18:41 | Outpatient (BNV) | payer MEDICAID, SELFPAY | PROVIDERS: Emergency Provider Emergency Medicine; PCP Student in an Organized Health Care Education/Training Program; Visit Provider Internal Medicine | DX: R07.9 Chest pain, unspecified (principal) | CPT/HCPCS: 93010 ==

== ENCOUNTER 2023-07-29 13:43 | Outpatient (AMB) | payer MEDICAID, SELFPAY ==
--- NOTE | 2023-07-29 13:46 | A.OFFVIS_ITS ---
Intake Vital Signs 07/29/23 13:49 Height 4 ft 11 in Weight 169 lb BMI 34.1 BP 110/72 Intake Visit Reasons: ? yeast/BV Manager Nursing Home: Manager Nursing Home Present ([place]) Allergies Iodinated Contrast Media [IV DYE, IODINE CONTAINING CONTRAST ] Allergy (Intermediate, Verified 07/29/23 13:46) SHORTNESS OF BREATH citalopram [From CELEXA] Allergy (Unknown, Verified 07/29/23 13:46) VOMITTING duloxetine [Cymbalta] Allergy (Unknown, Verified 07/29/23 13:46) unknown morphine [MORPHINE] Allergy (Unknown, Verified 07/29/23 13:46) PALPITATIONS-PT PREFERS NOT TO TAKE tramadol [TRAMADOL] Allergy (Unknown, Verified 07/29/23 13:46) VOMITING Is last menstrual period known: Yes Last menstrual period: 07/07/23 HPI HPI Comments History of Present Illness Details Presenting complaining of vulvovaginal burning and vaginal discharge with no associated odor PFSH Medical History Acute diarrhea Recurrent nephrolithiasis Vitamin D deficiency Obesity History of thyroiditis Fibroadenoma Lipoma Fibromyalgia NURIA positive Hx of lipoma Surgical History History of esophagogastroduodenoscopy (EGD) History of wisdom tooth extraction Family History Father Diabetes Heart attack Asthma Maternal Grandmother Diabetes HTN (hypertension) Parkinson disease Breast cancer Mother Diabetes Family history of diabetes mellitus Sister Asthma Maternal Grandfather Parkinson disease Social History Household Members: Children Housing: Condominium Are you a primary care navigator to a significant other at home: No 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) Alcohol intake: never Patient Tobacco Use Status: Never used Tobacco Second Hand Smoke Exposure: Yes (Neighbors) service: No Current occupational status: disabled Sexual orientation: Straight/Heterosexual Gender identity: Female Female Reproductive History Menstrual Age of Menarche: 13 Date of last menstrual period: 07/07/23 Review of Systems Const All systems reviewed & are unremarkable except as noted in HPI and below Physical Exam Vital Signs: Last Vital Signs BP 110/72 07/29/23 13:49 BMI result Body Mass Index 34.1 General: Yes no CVA tenderness External Female Exam: normal external appearance and normal appearance of the urethra Speculum Exam - Vagina: normal appearance of the vagina, normal palpation, no lesions and no masses Speculum Exam - Cervix: normal appearance of the cervix, normal palpation, no lesions, no masses and nontender Bimanual exam- vagina & uterus: normal bimanual exam, normal palpation, uterine size normal, normal palpation, uterine shape normal, No Cervical tenderness present and non-tender Bimanual Exam- Adnexa, other: normal adnexae Back/Spine/Pelvis Back: no CVA tenderness Results AMB Urinalysis, Automated UA Leukoctes 1 Gael/uL Last Edit by BRANDI Anthony on 07/29/23 14:04 UA Nitrite Negative Last Edit by BRANDI Anthony on 07/29/23 14:04 UA Urobilinogen 0 mg/dL Last Edit by BRANDI Anthony on 07/29/23 14:0 4 UA Protein 0 mg/dL Last Edit by BRANDI Anthony on 07/29/23 14:04 UA pH 6.0 Last Edit by BRANDI Anthony on 07/29/23 14:04 UA Blood 0 Constantino/uL Last Edit by BRANDI Anthony on 07/29/23 14:04 UA Specific [place] 1.015 Last Edit by BRANDI Anthony on 07/29/23 14:04 UA Ketone Negative Last Edit by BRANDI Anthony on 07/29/23 14:04 UA Bilirubin 0 mg/dL Last Edit by BRANDI Anthony on 07/29/23 14:04 UA Glucose 0 mg/dL Last Edit by BRANDI Anthony on 07/29/23 14:04 Results Reviewed Results Reviewed: Laboratory Last Values Urine pH (Auto) 6.0 07/29/23 14:04 Specific [place] (Auto) 1.015 07/29/23 14:04 Urine Protein (Auto) 0 mg/dL 07/29/23 14:04 Glucose (UA)(Auto) 0 mg/dL 07/29/23 14:04 Urine Ketones (Auto) Negative 07/29/23 14:04 Urine Blood (Auto) 0 Constantino/uL 07/29/23 14:04 Urine Nitrite (Auto) Negative 07/29/23 14:04 Urine Bilirubin (Auto) 0 mg/dL 07/29/23 14:04 Urine Urobilinogen (Auto) 0 mg/dL 07/29/23 14:04 Leukocyte Esterase (Auto) 1 Gael/uL 07/29/23 14:04 Assessment & Plan Assessment & Plan (1) Vulvovaginitis: Code(s): N76.0 - Acute vaginitis Plan: GC/CT, Bacterial Vaginosis panel taken, Terazol 0.8% q.h.s. for 3 days was sent to the patient's pharmacy. The patient was instructed to call if symptoms don't improve in 48 hours. Orders: Orders AMB Urinalysis Automated Today N94.9 - Unspecified condition associated with female genital organs and menstrual cycle Medications: New terconazole 0.8% 1 appful vaginal BEDTIME 20 grams 0RF 3 days Coding Level of Care Code Est Pt Level 3 (38937) Diagnoses Vulvovaginitis N76.0
[2023-07-29 13:49] VITALS: BP 110/72; BMI 34.1
== END 2023-07-29 14:17 | disposition home or self-care (01) ==
LOC: HO.HWS 13:43
PROVIDERS: PCP Student in an Organized Health Care Education/Training Program; Visit Provider Obstetrics & Gynecology
DX: N76.0 Acute vaginitis (principal); N94.9 Unspecified condition associated with female genital organs and menstrual cycle
CPT/HCPCS: 99213

== ENCOUNTER 2023-07-29 13:43 | Outpatient (REF) | payer MEDICAID, SELFPAY | END 2023-07-29 13:44 | disposition home or self-care (01) | LOC: HO.LNP 13:43 | PROVIDERS: PCP Student in an Organized Health Care Education/Training Program; Visit Provider Obstetrics & Gynecology | DX: N76.0 Acute vaginitis (principal) | CPT/HCPCS: 0353U; 81003; 87480; 87510; 87660; 99212 ==

== ENCOUNTER 2023-07-29 14:18 | Outpatient (REF) | payer MEDICAID, SELFPAY ==
[2023-07-29 17:22] LABS: CT PCR NOT DETECTED (Not Detect.); NG PCR NOT DETECTED (Not Detect.)
[2023-07-30 10:54] LABS: BV Int Neg Control Negative (Negative); BV Int Pos Control Positive (Positive)
== END 2023-07-29 14:19 | disposition home or self-care (01) ==
LOC: HO.LAB 14:18
PROVIDERS: Visit Provider Obstetrics & Gynecology
DX: N76.0 Acute vaginitis (principal)
CPT/HCPCS: 0353U; 87480; 87510; 87660

== ENCOUNTER 2023-08-19 13:35 | Outpatient (REF) | payer MEDICAID, SELFPAY ==
--- NOTE | ~2023-08-19 | US_ITS ---
EXAMINATION: US RETROPERITONEAL LIMITED (RENAL ONLY) CLINICAL INFORMATION: Calculus of kidney. COMPARISON: Ultrasound kidneys and bladder 01/24/2023. X-ray abdomen KUB 01/24/2023. Ultrasound abdomen complete 08/08/2022. CT abdomen and pelvis 05/29/2019. TECHNIQUE: Real-time imaging of the kidneys. Limited visualization due to bowel gas. FINDINGS: RIGHT KIDNEY: 11 x 5 x 6.7 cm (SAG x AP x TRV). No hydronephrosis. No renal calculi. Renal cortical thickness is normal. Limited visualization. LEFT KIDNEY: 10 x 4.8 x 4.7 cm (SAG x AP x TRV). Left renal midpole 3 mm echogenic focus characteristic of a calcification. No hydronephrosis. Renal cortical thickness is normal. Limited visualization. US/US renal BI IMPRESSION: Left renal midpole 3 mm echogenic focus characteristic of a calcification. No hydronephrosis.
== END 2023-08-19 13:36 | disposition home or self-care (01) ==
LOC: HO.US 13:35
PROVIDERS: PCP Student in an Organized Health Care Education/Training Program; Visit Provider Nurse Practitioner Family
DX: N20.0 Calculus of kidney (principal)
CPT/HCPCS: 76775

== ENCOUNTER 2023-09-05 14:00 | Outpatient (RCR) | payer MEDICAID, SELFPAY ==
--- NOTE | 2023-08-15 15:19 | MHC.OT.EP ---
[address] [phone] Occupational Therapy Plan of Care Patient Name: Ambika Anaya Date of Evaluation: 08/15/23 Diagnosis: B/L wrist tenosynovitis Pain Location: 10/10 pain reported in hands, B/L index and thumbs (MCPs) and radial wrists *Ng Boucher scale indicates lower pain level, pt smiling, ease discussion, able to palpate Tender over right radial wrist, mild tender in volar D2 MCP Pain Score: 10 Pain Scale Used: Numeric (0 - 10) Aggravating Factors: Pain reported constantly - worse w/ movement and use Alleviating Factors: Tylenol for Arthritis, Ibuprophen, hand cream with some relief Assessment: 38 yo female w/ hx of B/L hand pain, presents w/ signs and symptoms consistent w/ right radial wrist tendinitis and possible OA in B/L index MCP and Thumb MCP/CMCs. She has hx of right index trigger finger, still reporting occasional triggering, but not observed today. She has good range in all joints, but some laxity in CMCs and positioning into adduction. Gross grasp is low B/L'ly and she reports overall decreased participation in daily activities. She will benefit from cont'd therapy services for pain strategies, joint protection, activity modification and overall strengthening. 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 Thank you once again for your referral.
--- NOTE | 2023-09-16 08:50 | MHC.OT.DC ---
[address] [phone] F: [phone] Occupational Therapy Discharge Note Patient Name: Ambika Anaya Provider: Dr Osiris Hoffman Diagnosis: B/L wrist tenosynovitis Date of Evaluation: 08/15/23 Date of Discharge: 09/06/23 Treatments to Date: 7 Discharge Status: Independent with HEP Discharge Summary: Ambika was referred to OT w/ B/L wrist tenosynovitis. We have completed course of OT and she has good follow through w/ HEP and joint protection, but still has some pain in right thumb and left index, likely arthritic origin. We have fit w/ orthosis for comfort and to decrease strain, and she has met for self management. I anticipate she will continue to improve w/ strength and pain relief over time. Electronically Signed By: Sofía Dean OTR/L CHT Please Sign and return to therapist, thank you for your referral.
== END 2023-09-16 08:50 | disposition home or self-care (01) ==
LOC: HO.OT 14:00
PROVIDERS: PCP Student in an Organized Health Care Education/Training Program; Visit Provider Internal Medicine
DX: M65.9 Synovitis and tenosynovitis, unspecified (principal)
CPT/HCPCS: 29125; 97035; 97110; 97140; 97166; 97760

== ENCOUNTER 2023-09-19 08:56 | Emergency (ER) | payer MEDICAID, SELFPAY ==
[2023-09-19 08:59] VITALS: BP 119/77; PULSE 126; RESP 18; TEMP 36.6; O2SAT 100; BMI 34.3
--- NOTE | 2023-09-19 09:02 | ECG_ITS ---
Test Reason : tachy Blood Pressure : / mmHG Vent. Rate : 116 BPM Atrial Rate : 116 BPM P-R Int : 132 ms QRS Dur : 074 ms QT Int : 322 ms P-R-T Axes : 063 056 -17 degrees QTc Int : 447 ms Sinus tachycardia Septal infarct , age undetermined ST & T wave abnormality, consider inferior ischemia ST & T wave abnormality, consider anterolateral ischemia Abnormal ECG When compared with ECG of 23-JUL-2023 18:41, Septal infarct is now Present T wave inversion now evident in Anterolateral leads Referred By: Generic ED Physician Electronically Signed By:NICKI DUMONT MD
[2023-09-19 09:17] LABS: MANUAL DIFF FLAG NO
[2023-09-19 09:23] LABS: Basophils Percent Auto 0.3 % (0-2); Eosinophils Absolute Auto 0.1 X10*3/uL (0.0-0.4); Eosinophils Percent Auto 0.4 % (0-4); Hematocrit 38.9 % (37.0-47.0); Imm Gran Abs Auto 0.04 X10*3/uL (0.00-0.03); Imm Gran Pct Auto 0.3 % (0.0-0.4); Lymphocytes Absolute Auto 1.7 X10*3/uL (1.2-4.9); Lymphocytes Percent Auto 14.7 % (20-40); Mean Corpuscular HGB Conc 30.8 g/dl (31.0-35.0); Mean Corpuscular Hemoglobin 24.5 pg (27.0-33.0); Mean Corpuscular Volume 79.4 fL (80.0-98.0); Mean Platelet Volume 10.8 fL (9.4-12.3); Monocytes Absolute Auto 0.5 X10*3/uL (0.1-1.2); Monocytes Percent Auto 4.2 % (2-11); Neutrophils Absolute Auto 9.2 x10*3/uL (2.0-8.3); Neutrophils Percent Auto 80.1 % (45-73); Platelet Count 375 X10*3/uL (160-400); Red Cell Distribution Width 14.6 % (11.0-16.0); White Blood Count 11.5 X10*3/uL (4.8-10.8)
[2023-09-19 09:37] LABS: Anion Gap 14 (12-20); Blood Urea Nitrogen 6 mg/dL (9-16); Calcium 9.9 mg/dL (8.4-10.2); Carbon Dioxide 25 mmol/L (22-29); Chloride 104 mmol/L (96-108); Estimated Glomerular Filt Rate > 60; Glucose Random 129 mg/dL (60-115); Potassium 3.5 mmol/L (3.3-5.1); Sodium 139 mmol/L (135-145)
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
[2023-09-19 12:50] LABS: Appearance Urine Clear; Color Urine Yellow; Glucose Urine UA Negative (Negative); Leukocyte Esterase Urine Negative (Negative); Nitrite Urine Negative (Negative); PH >= 9.0 (5.0-9.0); Specific Gravity - Urine 1.025 (1.005-1.025); UMIC TRIGGER UACC YES; Urine Blood Negative (Negative); Urine Ketones >=160 mg/dL (Negative); Urine Protein 30 (1+) mg/dL (Neg-Trace)
[2023-09-19 12:52] LABS: Bacteria Urine None Seen (None Seen); Hyaline Casts Urine 0-2 /LPF (0-2); RBC Urine 0-2 /HPF (0-2); Squamous Epithelial Cell Urine 0-2 /HPF (0-2); UPreg QC Valid YES; Urine Pregnancy NEGATIVE (NEGATIVE); WBC Urine 0-5 /HPF (0-5)
[2023-09-19 13:26] LABS: Troponin-I High Sensitivity < 2.7 ng/L (<3.5-17.0)
[2023-09-19 13:35] LABS: Alanine Aminotransferase 14 U/L (0-31); Albumin Level 4.6 g/dL (3.5-5.0); Alkaline Phosphatase 67 U/L (39-117); Aspartate Amino Transferase 16 U/L (5-31); Bilirubin Direct 0.1 mg/dL (0.0-0.5); Bilirubin Total 0.3 mg/dL (0.0-1.0); Lipase 19 U/L (8-78); Magnesium 2.1 mg/dL (1.6-2.6); Total Protein 8.4 g/dL (6.5-8.0)
[2023-09-19 13:42] LABS: HCG Quantitative < 2 mIU/mL
[2023-09-19 13:49] LABS: Influenza A PCR NEGATIVE (Negative); Influenza B PCR NEGATIVE (Negative); Resp Syncy Virus RNA Qual PCR NEGATIVE (Negative); SARS COV2 PCR INHOUSE NEGATIVE (Negative)
[2023-09-19 14:03] VITALS: BP 124/65; PULSE 109; RESP 16; TEMP 36.4; O2SAT 100
[2023-09-19] MEDS: 0.9 % Sodium Chloride 1,000 ML 999 ML IV ×2 (14:47→16:44)
[2023-09-19 14:49] LABS: C Reactive Protein 0.15 mg/dL (< or = 0.50)
[2023-09-19] MEDS: ondansetron HCL 4 MG/2 ML VIAL IVPUSH (14:57)
[2023-09-19] MEDS: LORazepam 2 MG/ML VIAL 1 MG IVPUSH ×2 (14:57→16:48)
[2023-09-19] MEDS: Ketorolac Tromethamine 15 MG/ML VIAL 10 MG IVPUSH (16:08)
[2023-09-19] MEDS: Famotidine/PF 20 MG/2 ML VIAL IVPUSH (16:48)
[2023-09-19] MEDS: Sucralfate Oral Suspension 1 GM/10 ML ORAL.SUSP PO (16:48)
[2023-09-19 16:53] VITALS: BP 119/72; PULSE 101; RESP 14; TEMP 36.8; O2SAT 99
[2023-09-19 17:48] LABS: Thyroid Stimulating Hormone 1.21 uIU/mL (0.32-4.0)
[2023-09-19 18:39] VITALS: BP 112/72; PULSE 100; RESP 16; TEMP 36.5; O2SAT 99
== END 2023-09-19 18:56 | disposition home or self-care (01) ==
PROVIDERS: Emergency Medicine; Physician Assistant Medical; Emergency Provider Emergency Medicine; PCP Student in an Organized Health Care Education/Training Program
DX: R00.2 Palpitations (principal); R11.2 Nausea with vomiting, unspecified; F41.1 Generalized anxiety disorder; F43.0 Acute stress reaction; Z11.52 Encounter for screening for COVID-19; Z20.822 Contact with and (suspected) exposure to COVID-19; Z79.899 Other long term (current) drug therapy
CPT/HCPCS: 0241U; 36415; 80048; 80076; 81001; 81025; 83690; 83735; 84443; 84484; 84702; 85025; 86140; 93005; 96361; 96374; 96375; 96376; 99284; 99285; J1885; J2060; J2405

== ENCOUNTER → 2023-09-19 09:02 | Outpatient (BNV) | payer MEDICAID, SELFPAY | PROVIDERS: Emergency Provider Emergency Medicine; PCP Student in an Organized Health Care Education/Training Program; Visit Provider Internal Medicine Cardiovascular Disease | DX: R00.0 Tachycardia, unspecified (principal) | CPT/HCPCS: 93010 ==

== ENCOUNTER 2023-10-09 09:21 | Day surgery (SDC) | payer MEDICAID, SELFPAY ==
--- NOTE | 2023-10-08 10:46 | HO.ANESPROP2 ---
Documented by User: Jinny Masters NP 10/08/23 14:08 HPI - Anesthesia Eval Consult details Narrative: 38yo F for Upper Endoscopy [facility] [place]/19/23 with anxiety/vomiting. EKG changes from previous. Patient previously seen by cardiology with ECHO and Stress WNL 2021. Post-ED visit with PCP, pt encouraged to f/u with cardiology. T/C with pt 10/08/23: Pt reports episodes of racing heart, denies CP. Baseline CASAS, good effect with albuterol. Reviewed with prakash Rasmussen for eval DOS. TigerText to Dr Estrella for any further input. 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 PMFSH Active Problems Active Problems: All Active Problems Vulvovaginitis (Acute) Fatigue (Acute) Hives (Acute) Recurrent nephrolithiasis (Acute) Toe swelling (Acute) Irritable larynx syndrome (Acute) Cricopharyngeal hypertrophy (Acute) Myalgia (Acute) Oropharyngeal dysphagia (Acute) Left hip pain (Acute) Low back pain (Acute) Vulvovaginal candidiasis (Acute) Left flank pain, chronic (Acute) Dyspnea (Acute) Sesamoiditis (Acute) Fibromyalgia (Acute) Bursitis of left hip (Acute) Abnormal stress ECG with treadmill (Acute) Syncope (Acute) Vitamin D deficiency (Acute) Obesity (Acute) History of thyroiditis (Acute) Vulvovaginitis jaylyn albicans (Acute) Recurrent UTI (urinary tract infection) (Acute) Nephrolithiasis (Acute) Abnormal uterine bleeding (AUB) (Acute) Irritable bowel syndrome with constipation (Acute) Breast lump (Acute) CRPS (complex regional pain syndrome), upper limb (Acute) Rectal bleeding (Acute) GERD (gastroesophageal reflux disease) (Acute) Gastroparesis (Acute) Bilateral hand pain (Acute) NURIA positive (Acute) Past Medical History Medical History Acute diarrhea Recurrent nephrolithiasis Vitamin D deficiency Obesity History of thyroiditis Fibroadenoma Lipoma Fibromyalgia NURIA positive Hx of lipoma Family History Family History Father Diabetes Heart attack Asthma Maternal Grandmother Diabetes HTN (hypertension) Parkinson disease Breast cancer Mother Diabetes Family history of diabetes mellitus Sister Asthma Maternal Grandfather Parkinson disease Surgical History Surgical History History of esophagogastroduodenoscopy (EGD) History of wisdom tooth extraction Social History Social History Household Members: Children Housing: [facility] Are you a primary childcare attendant to a significant other at home: No 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[employer]) Alcohol intake: never Patient Tobacco Use Status: Never used Tobacco Second Hand Smoke Exposure: Yes (Neighbors) Advance Directives: No Advance Directives Information Provided: Yes service: No Current occupational status: disabled Sexual orientation: Straight/Heterosexual Gender identity: Female Meds Allergies Allergy/AdvReac Type Severity Reaction Status Date / Time Iodinated Contrast Media Allergy Intermediate SHORTNESS Verified 09/19/23 09:01 [IV DYE, IODINE CONTAINING OF BREATH CONTRAST ] citalopram [From CELEXA] Allergy Unknown VOMITTING Verified 09/19/23 09:01 duloxetine [Cymbalta] Allergy Unknown unknown Verified 09/19/23 09:01 morphine [MORPHINE] Allergy Unknown PALPITATIONS-PT Verified 09/19/23 09:01 PREFERS NOT TO TAKE tramadol [TRAMADOL] Allergy Unknown VOMITING Verified 09/19/23 09:01 Home Medications ?Medication ?Instructions ?Recorded ?Confirmed ?Last Taken ?Type lorazepam 1 mg tablet 1 mg PO BEDTIME PRN Anxiety 03/29/20 05/14/23 10/09/23 08:40 History azelastine 137 mcg (0.1 %) nasal 1 spray intranasal DAILY 06/12/21 05/14/23 Unknown History spray aerosol ibuprofen 400 mg tablet 400 mg PO Q4-6H PRN Pain 11/20/21 05/14/23 Unknown History diclofenac sodium 1 % topical gel 4 g topical BID 07/30/22 05/14/23 Unknown History trazodone 50 mg tablet 50 mg PO BEDTIME PRN 07/30/22 05/14/23 Unknown History albuterol sulfate 90 mcg/actuation 1 inh inhalation QID 09/19/22 05/14/23 Unknown History aerosol inhaler (Ventolin HFA) kfhcrswzpu-reragfvzghrcd-mgdaqugj 1 tab PO Q8H PRN 09/19/22 05/14/23 Unknown History 50 mg-325 mg-40 mg tablet loratadine 5 mg/5 mL oral solution 10 ml PO DAILY 09/19/22 05/14/23 Unknown History (Children's Allergy Relief (loratadine)) paroxetine HCl 20 mg tablet 20 mg PO DAILY 09/19/22 05/14/23 Unknown History lomuhj-euzbprbp-htcpyzb 1 cap PO TID 05/08/23 05/14/23 Unknown History 24,000-76,000-120,000 unit capsule,delayed rel (Creon) cholecalciferol (vitamin D3) 25 25 mcg PO DAILY 06/19/23 Unknown History mcg (1,000 unit) tablet ferrous gluconate 324 mg (38 mg 324 mg PO DAILY 06/19/23 Unknown History iron) tablet Exam Pertinent Lab Results Pertinent Lab Results: Laboratory Tests 09/19/23 09:12 WBC 11.5 H Hgb 12.0 Hct 38.9 Plt Count 375 Sodium 139 Potassium 3.5 Chloride 104 Carbon Dioxide 25 BUN 6 L Creatinine 0.69 Narrative Narrative: EKG 09/2023 Vent. Rate : 116 BPM Atrial Rate : 116 BPM P-R Int : 132 ms QRS Dur : 074 ms QT Int : 322 ms P-R-T Axes : 063 056 -17 degrees QTc Int : 447 ms Sinus tachycardia Septal infarct , age undetermined ST & T wave abnormality, consider inferior ischemia ST & T wave abnormality, consider anterolateral ischemia Abnormal ECG When compared with ECG of 23-JUL-2023 18:41, Septal infarct is now Present T wave inversion now evident in Anterolateral leads ECHO 2021 Conclusions: - Normal study NM cardiolite stress test 2021 IMPRESSION: 1. Myocardial perfusion imaging study shows normal myocardial perfusion. 2. Gated LVEF is 71% during stress and 55% during rest. 3. Transient ischemic dilatation not present. EKG component of the test reported separately. Assessment and Plan Assessment Anesthesia Assessment: Chart Reviewed Documented by User: Niharika Falk MD 10/09/23 11:20 HPI - Anesthesia Eval Consult details Narrative: 38yo F for Upper Endoscopy [facility] 09/19/23 with anxiety/vomiting. EKG changes from previous. Patient previously seen by cardiology with ECHO and Stress WNL 2021. Post-ED visit with PCP, pt encouraged to f/u with cardiology. T/C with pt 10/08/23: Pt reports episodes of racing heart, denies CP. Baseline CASAS, good effect with albuterol. Reviewed with prakash Rasmussen for eval DOS. TigerText to Dr Estrella for any further input. 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 W/u in the past with cardiology did not reveal any abnormality. Patient told to follow up as needed. Seen in ER on 09/19/23 -discharged with diagnosis of dehydration. Patient was c/o tachycardia and palpitations which were thought to be mostly anxiety-related and patient was told to follow up with Cardiology but has not yet. HR in 90s-100s today. No palpitations PMFSH Past Medical History Medical History Acute diarrhea Recurrent nephrolithiasis Vitamin D deficiency Obesity History of thyroiditis Fibroadenoma Lipoma Fibromyalgia NURIA positive Hx of lipoma Family History Family History Father Diabetes Heart attack Asthma Maternal Grandmother Diabetes HTN (hypertension) Parkinson disease Breast cancer Mother Diabetes Family history of diabetes mellitus Sister Asthma Maternal Grandfather Parkinson disease Family history of problems with anesthesia: No Surgical History Surgical History History of esophagogastroduodenoscopy (EGD) History of wisdom tooth extraction History of Problems with Anesthesia: No Social History Social History Household Members: Children Housing: Condominium Are you a primary childcare attendant to a significant other at home: No 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[employer]) Alcohol intake: never Patient Tobacco Use Status: Never used Tobacco Second Hand Smoke Exposure: Yes (Neighbors) Advance Directives: No Advance Directives Information Provided: Yes service: No Current occupational status: disabled Sexual orientation: Straight/Heterosexual Gender identity: Female Meds Allergies Allergy/AdvReac Type Severity Reaction Status Date / Time Iodinated Contrast Media Allergy Intermediate SHORTNESS Verified 09/19/23 09:01 [IV DYE, IODINE CONTAINING OF BREATH CONTRAST ] citalopram [From CELEXA] Allergy Unknown VOMITTING Verified 09/19/23 09:01 duloxetine [Cymbalta] Allergy Unknown unknown Verified 09/19/23 09:01 morphine [MORPHINE] Allergy Unknown PALPITATIONS-PT Verified 09/19/23 09:01 PREFERS NOT TO TAKE tramadol [TRAMADOL] Allergy Unknown VOMITING Verified 09/19/23 09:01 Home Medications ?Medication ?Instructions ?Recorded ?Confirmed ?Last Taken ?Type lorazepam 1 mg tablet 1 mg PO BEDTIME PRN Anxiety 03/29/20 05/14/23 10/09/23 08:40 History azelastine 137 mcg (0.1 %) nasal 1 spray intranasal DAILY 06/12/21 05/14/23 Unknown History spray aerosol ibuprofen 400 mg tablet 400 mg PO Q4-6H PRN Pain 11/20/21 05/14/23 Unknown History diclofenac sodium 1 % topical gel 4 g topical BID 07/30/22 05/14/23 Unknown History trazodone 50 mg tablet 50 mg PO BEDTIME PRN 07/30/22 05/14/23 Unknown History albuterol sulfate 90 mcg/actuation 1 inh inhalation QID 09/19/22 05/14/23 Unknown History aerosol inhaler (Ventolin HFA) peurrnmozs-byciiorcdlbbt-anntvwjw 1 tab PO Q8H PRN 09/19/22 05/14/23 Unknown History 50 mg-325 mg-40 mg tablet loratadine 5 mg/5 mL oral solution 10 ml PO DAILY 09/19/22 05/14/23 Unknown History (Children's Allergy Relief (loratadine)) paroxetine HCl 20 mg tablet 20 mg PO DAILY 09/19/22 05/14/23 Unknown History knmfzv-tojvlsqx-qaznxxs 1 cap PO TID 05/08/23 05/14/23 Unknown History 24,000-76,000-120,000 unit capsule,delayed rel (Creon) cholecalciferol (vitamin D3) 25 25 mcg PO DAILY 06/19/23 Unknown History mcg (1,000 unit) tablet ferrous gluconate 324 mg (38 mg 324 mg PO DAILY 06/19/23 Unknown History iron) tablet Exam Height,Weight and Vital Signs: Height 4 ft 11 in Weight 75.75 kg Vital Signs Temp Pulse Resp BP Pulse Ox O2 Del Method 10/09/23 10:37 98.3 F 90 18 117/67 100 Room Air Pertinent Lab Results Pertinent Lab Results: Laboratory Tests 09/19/23 09:12 WBC 11.5 H Hgb 12.0 Hct 38.9 Plt Count 375 Sodium 139 Potassium 3.5 Chloride 104 Carbon Dioxide 25 BUN 6 L Creatinine 0.69 Lab Results 10/09/23 Range/Units 09:55 Urine Test NEGATIVE (NEGATIVE) Airway Mallampati Class: II TM Dist: >3cm Neck ROM: Full Loose/Missing/Broken Teeth: Yes (Missing molars) Heart: RRR Lungs: CTAB Assessment and Plan Assessment Anesthesia Assessment: Anesthesia Plan Discussed and Chart Reviewed Final Anesthetic Review Family History of Problems with Anesthesia: No History of Problems with Anesthesia: No NPO: Yes ASA Class: III Final Preanesthetic Review: No Changes in Pt Med Stat, Meds/Allgs Chart Reviewed, Consent Obtained/Reviewed and Anes Risks/Benef Reviewed Patient Risk: Intermediate Procedure Risk: Low Assessment/Block/Sedation in SS: Assess/Block/Sedation-SS Anesthetic Plan Anesthetic Plan: MAC: and TIVA Disposition: Standard PACU
--- NOTE | 2023-10-09 09:53 | MHC.SHP ---
Pre-Procedural Eval Section A - 24 Hr Update-Section A only Date of Service: 10/09/23 Section B - Complete if H&P > 30 days Chief Complaint: Gastroparesis,gerd,diseases of larynx Relevant Family History (Specify if Yes): No Relevant Social History: None Present Medications: see Short Stay Collaborative assessment Medical History: Significant History (cute diarrhea Recurrent nephrolithiasis Vitamin D deficiency Obesity History of thyroiditis Fibroadenoma Lipoma Fibromyalgia NURIA positive Hx of lipoma) History of Previous Operations: Relevant previous surgery/procedure and date(s) (History of esophagogastroduodenoscopy (EGD) History of wisdom tooth extraction) Allergies: Allergies Allergy/AdvReac Type Severity Reaction Status Date / Time Iodinated Contrast Media Allergy Intermediate SHORTNESS Verified 09/19/23 09:01 [IV DYE, IODINE CONTAINING OF BREATH CONTRAST ] citalopram [From CELEXA] Allergy Unknown VOMITTING Verified 09/19/23 09:01 duloxetine [Cymbalta] Allergy Unknown unknown Verified 09/19/23 09:01 morphine [MORPHINE] Allergy Unknown PALPITATIONS-PT Verified 09/19/23 09:01 PREFERS NOT TO TAKE tramadol [TRAMADOL] Allergy Unknown VOMITING Verified 09/19/23 09:01 Review of Systems Sugical H&P ROS: Negative: Constitution, Cardiovascular, Respiratory, Neurological, Psychiatric, Hem-Onc, Allergic/Immunologic, Gastrointestinal, Genitourinary, Musculoskeletal, Integumentary, Endocrine and Eyes/Ears/Nose/Throat Exam Surgical H&P Exam: Normal: HEENT, Normal: Heart, Normal: Lungs, Normal: Extremities, Normal: Abdomen, Normal: Skin and Normal: Neurological Plan Diagnosis/Plan: Unchanged I have reviewed the history and physical and performed a pertinent physical examination on my patient. No changes have occurred unless specified. Time Spent With Patient Time: Total time managing care of this patient today ____ minutes.
[2023-10-09 10:03] LABS: UPreg QC Valid YES; Urine Pregnancy NEGATIVE (NEGATIVE)
[2023-10-09 10:29] VITALS: BMI 33.7
[2023-10-09 10:37] VITALS: BP 117/67; PULSE 90; RESP 18; TEMP 36.8; O2SAT 100; BMI 33.7
[2023-10-09] MEDS: Lactated Ringers 1,000 ML 100 ML IVCONT (10:49)
--- NOTE | 2023-10-09 10:53 | W.PM.OPN ---
Operative Note Operative Note Date of Service: 10/09/23 Narrative: Procedure Description: EGD Indication: abdominal pain, dysphagia Anesthesia: MAC FLEXIBLE TRANSORAL UPPER GASTROINTESTINAL ENDOSCOPY UPPER ENDOSCOPY Consent: Indications for the procedure and potential complications of bleeding, perforation, reaction to medications and missed diagnosis were discussed with the patient and informed consent was obtained. Instrument: Olympus GIF H 190 J mid size upper endoscope Monitoring: Vital signs and clinical assessment, continuous EKG monitoring, Pulse oximetry, Carbon Dioxide monitoring and blood pressure monitoring were done throughout the procedure. Procedure: The patient was placed in the left lateral decubitis position and pre-procedure medications were administered and a bite block was placed. The endoscope was inserted into the mouth and advanced under direct vision to the third part of duodenum. A careful inspection was made as the upper endoscope was withdrawn including a retroflexed examination of the proximal stomach; Findings and interventions are described below. Findings: Larynx:normal Esophagus: GE junction at 35 cm, diaphragm hiatus at 35 cm, bx taken from distal and proximal esophagus in separate jars, balloon dilation done at UES to 18 mm with superficial tear seen and at LES to 20 mm- no tear seen Stomach: mild erythema . Biopsies were obtained. Grade 2 flap valve on retroflexed examination of the cardia. Duodenum: Patchy erythema, bx taken Intervention: Biopsies as noted above, balloon dilation Impression/Findings: esophageal stricture mild gastritis PLAN: ensure compliance with PPI GERD precautions magic mouthwash for 1 week
[2023-10-09 11:36] VITALS: BP 127/84; PULSE 94; RESP 16; TEMP 36.4; O2SAT 99
[2023-10-09] MEDS: Acetaminophen 325 MG TABLET 975 MG PO (11:42)
[2023-10-09] MEDS: Mag&Al/Sim/Diphenhyd/Lidocaine 10 ML ORAL.SUSP PO (11:44)
[2023-10-09 11:51] VITALS: BP 115/81; PULSE 97; RESP 16; O2SAT 100
[2023-10-09 12:06] VITALS: BP 116/77; PULSE 88; RESP 16; O2SAT 100
[2023-10-09 12:21] VITALS: BP 128/75; PULSE 65; RESP 16; TEMP 36.4; O2SAT 100
== END 2023-10-09 13:03 | disposition home or self-care (01) ==
PROVIDERS: Nurse Practitioner; PCP Student in an Organized Health Care Education/Training Program; Visit Provider Internal Medicine Gastroenterology
PROC: 0DJ08ZZ Inspection of Upper Intestinal Tract, Via Natural or Artificial Opening Endoscopic (ICD-10-PCS; CPT 43235; principal; 2023-10-09 11:00)
DX: K22.2 Esophageal obstruction (principal); K21.9 Gastro-esophageal reflux disease without esophagitis; K31.84 Gastroparesis; K29.60 Other gastritis without bleeding; J38.7 Other diseases of larynx; K44.9 Diaphragmatic hernia without obstruction or gangrene; N20.0 Calculus of kidney; M79.7 Fibromyalgia; E55.9 Vitamin D deficiency, unspecified; D24.9 Benign neoplasm of unspecified breast; E66.9 Obesity, unspecified; Z68.34 Body mass index [BMI] 34.0-34.9, adult; Z79.899 Other long term (current) drug therapy; Z91.041 Radiographic dye allergy status; Z88.5 Allergy status to narcotic agent; Z88.8 Allergy status to other drugs, medicaments and biological substances
CPT/HCPCS: 43249; 43239; 81025; 88305; 88313; C1725; J1596; J1885; J2250; J2704

== ENCOUNTER → 2023-10-09 09:21 | Outpatient (BNV) | payer MEDICAID, SELFPAY | PROVIDERS: PCP Student in an Organized Health Care Education/Training Program; Visit Provider Internal Medicine Gastroenterology | DX: K22.2 Esophageal obstruction (principal); R10.9 Unspecified abdominal pain; K22.0 Achalasia of cardia | CPT/HCPCS: 43239; 43249 ==

== ENCOUNTER 2023-10-11 09:52 | Outpatient (AMB) | payer MEDICAID, SELFPAY ==
[2023-10-11 10:17] VITALS: BP 120/64; PULSE 74; BMI 33.3
--- NOTE | 2023-10-11 10:17 | A.OFFVIS_ITS ---
Vital Signs 10/11/23 10:17 Height 4 ft 11 in Weight 164 lb 14.492 oz BMI 33.3 BP 120/64 Blood Pressure Location Rt brachial Position Sitting Pulse 74 Pulse Source Pulse Oximeter Intake Visit Reasons: f/up-ED-09/18-palpitation/chest pain/KM-pt Supervisor Sign Shop Required: Yes Supervisor Sign Shop Language: Swedish Allergies Iodinated Contrast Media [IV DYE, IODINE CONTAINING CONTRAST ] Allergy (Intermediate, Verified 10/11/23 10:22) SHORTNESS OF BREATH citalopram [From CELEXA] Allergy (Unknown, Verified 10/11/23 10:22) VOMITTING duloxetine [Cymbalta] Allergy (Unknown, Verified 10/11/23 10:22) unknown morphine [MORPHINE] Allergy (Unknown, Verified 10/11/23 10:22) PALPITATIONS-PT PREFERS NOT TO TAKE tramadol [TRAMADOL] Allergy (Unknown, Verified 10/11/23 10:22) VOMITING Medication List - Last Reconciled 10/11/23 by SHANON OlveraC albuterol sulfate 90 mcg/actuation (Ventolin HFA) 1 inh inhalation QID azelastine 1 spray intranasal DAILY bisacodyl (Dulcolax (bisacodyl)) 10 mg (2 x 5 mg) PO BEDTIME 30 days npxvnsiakq-kbfdfdyamwllt-iofh 50-325-40 mg 1 tab PO Q8H PRN cholecalciferol (vitamin D3) 25 mcg PO DAILY clotrimazole-betamethasone 1-0.05 % 1 appl topical BID 5 days dexlansoprazole (Dexilant) 60 mg PO DAILY 30 days diclofenac sodium 1% 4 grams topical BID dicyclomine 10 mg PO TID diphenhydramine HCl (Allergy (diphenhydramine)) 25 mg PO TID PRN famotidine 40 mg PO BEDTIME ferrous gluconate 324 mg PO DAILY ibuprofen 400 mg PO Q4-6H PRN ucexpm-wjqurcme-ojwxnhx 24,000-76,000 -120,000 unit (Creon) 1 cap PO TID loratadine (Children's Allergy Relief (loratadine)) 10 mL PO DAILY lorazepam 1 mg PO BEDTIME PRN Magic Mouthwash Diphen/Lido/Antacid 1:1:1 10 mL PO QID metoclopramide HCl (Reglan) 5 mg PO QIDACHS pregabalin 50 mg PO BEDTIME simethicone 180 mg PO BID 30 days terconazole 0.8% 1 appful vaginal BEDTIME 3 days trazodone 50 mg PO BEDTIME PRN HPI HPI f/up-ED-4/4-palpitation/chest pain/KM-pt: Details: Ambika is a 38-year-old female with past medical history of syncope, abnormal findings on EKG who was recently seen in the emergency room for heart palpitations and chest discomfort. She ruled out for ACS. EKG did not show concerning arrhythmia. Today she reports that on the day of her ER visit she was having significant heart palpitations. She felt like her heart was fluttering. She also was experiencing nausea and vomiting. She tells me her symptoms went on for several hours prior to seeking emergency care. Since that time she still has had issues with nausea and vomiting and tells me she had an upper endoscopy 2 days ago and they did a dilation. She has had intermittent heart palpitations where her heart is going fast. She does report issues with anxiety. Back in July she had anterior chest discomfort and was seen in the emergency room. She says at that time she was told it was costochondritis. She has had intermittent random pains in her chest since then but nothing brought on by clear exertional activities. No PND, orthopnea or edema. No presyncope, syncope, falls. Son is present. 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 [facility] Medical History Acute diarrhea Recurrent nephrolithiasis Vitamin D deficiency Obesity History of thyroiditis Fibroadenoma Lipoma Fibromyalgia NURIA positive Hx of lipoma Surgical History History of esophagogastroduodenoscopy (EGD) History of wisdom tooth extraction Family History Father Diabetes Heart attack Asthma Maternal Grandmother Diabetes HTN (hypertension) Parkinson disease Breast cancer Mother Diabetes Family history of diabetes mellitus Sister Asthma Maternal Grandfather Parkinson disease Social History Household Members: Children Housing: Condominium Are you a primary care attendant to a significant other at home: No 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) Alcohol intake: never Patient Tobacco Use Status: Never used Tobacco Second Hand Smoke Exposure: Yes (Neighbors) service: No Current occupational status: disabled Sexual orientation: Straight/Heterosexual Gender identity: Female Female Reproductive History Menstrual Age of Menarche: 13 Review of Systems Const Unobtainable due to mental status ENT Denies dizziness Card Reports chest pain, Reports chest pain at rest, Denies chest pain with activity, Reports rapid heart rate, Denies pedal edema, Denies edema, Denies leg edema, Denies lightheadedness, Reports palpitations, Denies dyspnea, Denies dyspnea on exertion and Denies orthopnea Resp Denies cough, Denies dyspnea and Denies dyspnea on exertion GI Details: nausea and vomiting recently. Denies hematochezia and Denies change in stool character Musc Denies abnormal gait, Denies limited range of motion, Denies muscle cramps, Denies muscle weakness, Denies numbness, Denies radiating pain into limb, Denies stiffness and Denies tingling Neuro Denies abnormal gait, Denies dizziness, Denies numbness and Denies tingling Endo Reports palpitations Physical Exam Vital Signs: Last Vital Signs Pulse 74 10/11/23 10:17 BP 120/64 10/11/23 10:17 BMI result Body Mass Index 33.3 Const General: cooperative, healthy appearing, comfortable and no acute distress Orientation/consciousness: patient oriented x3 Neck Neck: Yes normal visual inspection Resp Effort & Inspection: normal respiratory effort Auscultation: clear to auscultation bilaterally, no rales, no rhonchi and no wheezes Cardio Jugular venous distension: no JVD Rate: regular rate Rhythm: regular rhythm Heart sounds: S1 normal heart sound present, S2 normal heart sound present, no murmurs and no rubs Neuro General: patient oriented x3 Extrem General: Yes normal to inspection and No no pedal edema Psych Appearance: grossly normal Mental Status: mental status grossly normal Speech and movement: Normal speech and movement present Assessment & Plan Assessment & Plan (1) Abnormal ECG: Code(s): R94.31 - Abnormal electrocardiogram [ECG] [EKG] Category: Medical Plan: Previously evaluated for abnormal EKG with sinus rhythm with T-wave inversion as well as some ST depressions laterally. ER evaluation showed no ACS. Echocardiogram on 01/18/2022 showing EF 60-65%, normal study. An exercise nuclear stress test was done on 01/22/2022 showing exercise 5 minutes with EKG changes suggestive of ischemia however nuclear imaging was normal. Today she reports ER evaluation 07/2023 with chest discomfort and was told it was costochondritis. ER evaluation 09/19/2023 for heart palpitations, nausea and vomiting. Troponin was normal. EKG does show sinus tachycardia with septal Q, ST and T-wave abnormality in the inferior lateral leads suggesting ischemia. At this time she has no exertional chest discomfort. She will get random pains in her chest at times. Cardiac risk factors obesity. Will do an exercise stress echo to re- evaluate for any ischemic findings. Signs and symptoms of angina reviewed. ED care if ever needed for concerning symptoms. Cardiology follow-up in 4-6 weeks, sooner if needed. (2) Palpitations: Code(s): R00.2 - Palpitations Category: Medical Plan: Report of recent heart palpitations requiring ER evaluation without acute findings. Her EKG that day did show sinus tachycardia. Lab work reviewed and no significant abnormalities. TSH 1.21. She does have a history of anxiety which can contribute. She also was experiencing nausea and vomiting that day. Since then she continues to have intermittent heart palpitations. Pulse is regular on exam today. Will check a Holter monitor to evaluate for any concerning arrhythmia. (3) Chest pain: Code(s): R07.9 - Chest pain, unspecified Category: Medical Qualifiers: Chest pain type: precordial pain Qualified Code(s): R07.2 - Precordial pain Plan: Atypical as above (4) Syncope: Code(s): R55 - Syncope and collapse Category: Medical Qualifiers: Syncope type: unspecified Qualified Code(s): R55 - Syncope and collapse Plan: Syncopal episode approximately 2-3 years ago. No recurrent episodes since that time. Her description of the event is most likely vasovagal. Reviewed the need of good hydration, recognizing symptoms and get in a laying down position if symptoms occurred. Instructed to notify this office if she has any recurrent episode Plan Time spent on chart review, documentation, interview and assessment Orders: Orders CA echo stress exercise Today R07.89 - Other chest pain, R94.31 - Abnormal electrocardiogram [ECG] [EKG] ECG 7 day holter monitor Today R00.2 - Palpitations Coding Level of Care Code Est Pt Level 4 (24482) Diagnoses Abnormal ECG R94.31 Palpitations R00.2 Precordial pain R07.2 Chest pain type: precordial pain Syncope, unspecified syncope type R55 Syncope type: unspecified Time Spent (min) 28
== END 2023-10-11 10:55 | disposition home or self-care (01) ==
PROVIDERS: PCP Student in an Organized Health Care Education/Training Program; Visit Provider Nurse Practitioner Family
DX: R94.31 Abnormal electrocardiogram [ECG] [EKG] (principal); R00.2 Palpitations; R07.2 Precordial pain; R55 Syncope and collapse
CPT/HCPCS: 99214

== ENCOUNTER → 2023-10-11 09:52 | Outpatient (BNVA) | payer MEDICAID, SELFPAY | PROVIDERS: PCP Student in an Organized Health Care Education/Training Program; Visit Provider Nurse Practitioner Family | DX: R94.31 Abnormal electrocardiogram [ECG] [EKG] (principal); R00.2 Palpitations; R07.2 Precordial pain; R55 Syncope and collapse | CPT/HCPCS: 99212 ==

== ENCOUNTER 2023-10-16 11:52 | Outpatient (REF) | payer MEDICAID, SELFPAY ==
[2023-10-16 15:28] LABS: Alanine Aminotransferase 11 U/L (0-31); Albumin Level 4.2 g/dL (3.5-5.0); Alkaline Phosphatase 56 U/L (39-117); Anion Gap 13 (12-20); Aspartate Amino Transferase 12 U/L (5-31); Bilirubin Direct < 0.2 mg/dL (0.0-0.5); Bilirubin Total 0.1 mg/dL (0.0-1.0); Blood Urea Nitrogen 7 mg/dL (9-16); Calcium 8.9 mg/dL (8.4-10.2); Carbon Dioxide 25 mmol/L (22-29); Chloride 107 mmol/L (96-108); Cholesterol 193 mg/dL (<200); Estimated Glomerular Filt Rate > 60; Glucose Random 89 mg/dL (60-115); HDL Cholesterol 49 mg/dL (>40); LDL Cholesterol Calculated 116 mg/dL (<100); Potassium 3.6 mmol/L (3.3-5.1); Sodium 141 mmol/L (135-145); Total Protein 7.3 g/dL (6.5-8.0); Triglycerides 144 mg/dL (<150)
[2023-10-16 15:35] LABS: Thyroid Stimulating Hormone 1.04 uIU/mL (0.32-4.0)
== END 2023-10-16 11:53 | disposition home or self-care (01) ==
LOC: HO.CHCLDS 11:52
PROVIDERS: Visit Provider Student in an Organized Health Care Education/Training Program
DX: R00.2 Palpitations (principal)
CPT/HCPCS: 36415; 80048; 80061; 80076; 84443

== ENCOUNTER 2023-10-18 14:48 | Outpatient (AMB) | payer MEDICAID, SELFPAY ==
--- NOTE | 2023-10-18 14:49 | A.OFFVIS_ITS ---
Intake Visit Reasons: follow-up/US(set) Intake Note: Patient is present for follow up ultrasound/nephrolithiasis Urology Medication: Vitamin B6 (not currently taking) Blood thinner: none [employer] Member Required: No Accompanied by: Unknown Allergies Iodinated Contrast Media [IV DYE, IODINE CONTAINING CONTRAST ] Allergy (Intermediate, Verified 10/18/23 15:37) SHORTNESS OF BREATH citalopram [From CELEXA] Allergy (Unknown, Verified 10/18/23 15:37) VOMITTING duloxetine [Cymbalta] Allergy (Unknown, Verified 10/18/23 15:37) unknown morphine [MORPHINE] Allergy (Unknown, Verified 10/18/23 15:37) PALPITATIONS-PT PREFERS NOT TO TAKE tramadol [TRAMADOL] Allergy (Unknown, Verified 10/18/23 15:37) VOMITING Medication List - Last Reconciled 10/18/23 by NIC Davey-MITRA albuterol sulfate 90 mcg/actuation (Ventolin HFA) 1 inh inhalation QID azelastine 1 spray intranasal DAILY bisacodyl (Dulcolax (bisacodyl)) 10 mg (2 x 5 mg) PO BEDTIME 30 days tuuqfhjlrq-zcanxpcqfwkhe-jdyx 50-325-40 mg 1 tab PO Q8H PRN cholecalciferol (vitamin D3) 25 mcg PO DAILY clotrimazole-betamethasone 1-0.05 % 1 appl topical BID 5 days dexlansoprazole (Dexilant) 60 mg PO DAILY 30 days diclofenac sodium 1% 4 grams topical BID dicyclomine 10 mg PO TID diphenhydramine HCl (Allergy (diphenhydramine)) 25 mg PO TID PRN famotidine 40 mg PO BEDTIME ferrous gluconate 324 mg PO DAILY ibuprofen 400 mg PO Q4-6H PRN alabqw-cvpyauoa-hlqbfzf 24,000-76,000 -120,000 unit (Creon) 1 cap PO TID loratadine (Children's Allergy Relief (loratadine)) 10 mL PO DAILY lorazepam 1 mg PO BEDTIME PRN Magic Mouthwash Diphen/Lido/Antacid 1:1:1 10 mL PO QID metoclopramide HCl (Reglan) 5 mg PO QIDACHS pregabalin 50 mg PO BEDTIME simethicone 180 mg PO BID 30 days terconazole 0.8% 1 appful vaginal BEDTIME 3 days trazodone 50 mg PO BEDTIME PRN HPI Comments Details: Ambika is a pleasant 37-year-old female patient of Dr. Murray. She has a past medical history of vitamin-D deficiency, obesity, thyroiditis, fibroa denoma, lipoma, fibromyalgia, and NURIA positive. She presents to the office today for follow-up of her nephrolithiasis. Recent renal imaging results reviewed with the patient today. Bilateral kidneys with no hydronephrosis. Left renal mid pole 3 mm echogenic focus noted. In discussion with the patient today she reports over the last 2 weeks she has been doing and feeling well. However prior had been having multiple medical issues with nausea, vomiting, diarrhea, palpitations, and vulvodynia. She reports having seeked emergency room care multiple times and continues to follow-up with cardiology and gastroenterology. She reports upcoming endoscopy and colonoscopy as well as Holter monitor. She also discusses having gone to [place] to take care of her mom who recently broke her shoulder. She currently denies any bothersome urinary issues or concerns. She denies urinary urgency, urinary frequency, incontinence, nocturia, hematuria, dysuria, foul smelling urine, changes to uri nary stream, flank pain, fever, and or chills. She is happy with her current voiding parameters. In office urinalysis results reviewed with the patient today. Discussed and stressed the importance of drinking plenty of water daily. She otherwise offers no other issues or concerns at this time. FORMERLY [facility], [facility] Medical History Acute diarrhea Recurrent nephrolithiasis Vitamin D deficiency Obesity History of thyroiditis Fibroadenoma Lipoma Fibromyalgia NURIA positive Hx of lipoma Surgical History History of esophagogastroduodenoscopy (EGD) History of wisdom tooth extraction Family History Father Diabetes Heart attack Asthma Maternal Grandmother Diabetes HTN (hypertension) Parkinson disease Breast cancer Mother Diabetes Family history of diabetes mellitus Sister Asthma Maternal Grandfather Parkinson disease Social History Household Members: Children Housing: Condominium Are you a primary primary care sales representative to a significant other at home: No Do you presently have visiting nurse 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 (assistant at surgery) Alcohol intake: never Patient Tobacco Use Status: Never used Tobacco Second Hand Smoke Exposure: Yes (Neighbors) service: No Current occupational status: disabled Sexual orientation: Straight/Heterosexual Gender identity: Female Female Reproductive History Menstrual Age of Menarche: 13 Review of Systems Const Reports as per HPI Eyes Reports no additional complaints ENT Reports no additional complaints Card Details: Reports following with Cardiology regarding history of palpitations Reports as per HPI Resp Reports no additional complaints GI Reports as per HPI Reports as per HPI Musc Reports as per HPI Neuro Reports no additional complaints Psych Reports no additional complaints Endo Reports no additional complaints Antonino/Lymph Reports no additional complaints Aller/Immun Reports no additional complaints Physical Exam Const General: cooperative, healthy appearing, comfortable, no acute distress, well developed, alert and awake Nutritional Appearance: overweight Orientation/consciousness: patient oriented x3 Limitations: no limitations HEENT Head: Yes normal to inspection, Yes normocephalic and Yes atraumatic Ears: hearing grossly normal bilaterally Eyes General: appearance normal, both eyes and all related structures Neck Neck: Yes normal visual inspection and Yes trachea midline Chest Chest palpation & inspection: normal inspection of the chest Resp Effort & Inspection: able to speak in complete sentences Cardio Rate: regular rate GI Inspection: Yes normal to inspection General: Yes no CVA tenderness Back/Spine/Pelvis Back: no CVA tenderness Skin General skin exam: no rashes or lesions noted Neuro General: patient oriented x3 Extrem General: Yes normal to inspection Psych Appearance: grossly normal and well kempt Mental Status: mental status grossly normal Speech and movement: Clear speech present Affect: normal affect Attitude: cooperative Thought process: Normal thought process present Thought content: Normal thought content present Insight: Fair insight present (Psych) Judgement: Fair judgement present (Psych) Results AMB Urinalysis, Automated UA Leukoctes 0 Gael/uL Last Edit by Sravani Garza on 10/18/23 15:01 UA Nitrite Negative Last Edit by Sravani Garza on 10/18/23 15:01 UA Urobilinogen 0.2 mg/dL Last Edit by Sravani Garza on 10/18/23 15:01 UA Protein 0 mg/dL Last Edit by Sravani Garza on 10/18/23 15:01 UA pH 6.0 Last Edit by Christianojulio c Danielselana on 10/18/23 15:01 UA Blood 25 Constantino/uL Last Edit by Sravani Franceselana on 10/18/23 15:01 UA Specific Champion 1.015 Last Edit by Sravani Garza on 10/18/23 15:01 UA Ketone Last Edit by Sravani Garza on 10/18/23 15:01 UA Bilirubin 0 mg/dL Last Edit by Sravani Franceselana on 10/18/23 15:01 UA Glucose 0 mg/dL Last Edit by Sravani Garza on 10/18/23 15:01 Results Reviewed Results Reviewed: Laboratory Last Values Urine pH (Auto) 6.0 10/18/23 14:55 Specific Champion (Auto) 1.015 10/18/23 14:55 Urine Protein (Auto) 0 mg/dL 10/18/23 14:55 Glucose (UA)(Auto) 0 mg/dL 10/18/23 14:55 Urine Blood (Auto) 25 Constantino/uL 10/18/23 14:55 Urine Nitrite (Auto) Negative 10/18/23 14:55 Urine Bilirubin (Auto) 0 mg/dL 10/18/23 14:55 Urine Urobilinogen (Auto) 0.2 mg/dL 10/18/23 14:55 Leukocyte Esterase (Auto) 0 Gael/uL 10/18/23 14:55 Date of Service: 08/19/23 EXAMINATION: US RETROPERITONEAL LIMITED (RENAL ONLY) FINDINGS: RIGHT KIDNEY: 11 x 5 x 6.7 cm (SAG x AP x TRV). No hydronephrosis. No renal calculi. Renal cortical thickness is normal. Limited visualization. LEFT KIDNEY: 10 x 4.8 x 4.7 cm (SAG x AP x TRV). Left renal midpole 3 mm echogenic focus characteristic of a calcification. No hydronephrosis. Renal cortical thickness is normal. Limited visualization. IMPRESSION: Left renal midpole 3 mm echogenic focus characteristic of a calcification. No hydronephrosis. Assessment & Plan Assessment & Plan (1) Recurrent nephrolithiasis: Code(s): N20.0 - Calculus of kidney Category: Medical Plan In office urinalysis results reviewed with the patient today; as noted above. Patient currently denies any bothersome urinary issues or concerns. She is happy with her current voiding parameters. Recent renal ultrasound results reviewed with the patient today; as noted above. Discussed, educated, and stressed the importance of drinking plenty of water daily. Continue to follow-up with cardiology and Gastroenterology as planned. Discussed adding 1 oz of lemon juice to water daily. Follow-up in 3 months; if not sooner with any issues, concerns, and or questions. Orders: Orders AMB Urinalysis Automated 10/18/23 Z13.9 - Encounter for screening, unspecified Urine Cytology 10/18/23 Z13.9 - Encounter for screening, unspecified Patient Instructions: The patient had an opportunity to ask questions regarding the treatment plan. All questions were answered. Physical exam, labs, and imaging were discussed and reviewed in detail. As well as risks, benefits, and discussion of treatment choices. No major barriers to understanding were identified. The patient expressed understanding and agreement with the above treatment plan. The patient was made aware they should contact our office by phone for worsening of their current condition, the appearance of new symptoms, or with any questions or concerns. Compliance is encouraged with any medications and follow up testing that is ordered. It is a privilege to be allowed the opportunity to participate in? your urological care.? Again, if you have any questions or concerns If you have any questions or concerns please do not hesitate to contact me. The office is [phone]. This note is constructed using voice recognition software. While every effort has been made to ensure accuracy nursing staffing coordinator errors may have been included. Yours sincerely, LINUS Davey Coding Level of Care Code Est Pt Level 4 (86148) Diagnoses Recurrent nephrolithiasis N20.0 Time Spent (min) 35
== END 2023-10-18 15:37 | disposition home or self-care (01) ==
PROVIDERS: PCP Student in an Organized Health Care Education/Training Program; Visit Provider Nurse Practitioner Family
DX: Z13.9 Encounter for screening, unspecified (principal)
CPT/HCPCS: 99214

== ENCOUNTER 2023-10-18 14:48 | Outpatient (REF) | payer MEDICAID, SELFPAY ==
[2023-10-18 17:02] LABS: Urine Cytology See Pathology rpt
== END 2023-10-18 14:49 | disposition home or self-care (01) ==
LOC: HO.LNP 14:48
PROVIDERS: PCP Student in an Organized Health Care Education/Training Program; Visit Provider Nurse Practitioner Family
DX: N20.0 Calculus of kidney (principal)
CPT/HCPCS: 81003; 88112; 99212

== ENCOUNTER 2023-10-23 13:31 | Outpatient (AMB) | payer MEDICAID, SELFPAY ==
--- NOTE | 2023-10-23 13:36 | MHC.OFFVIS ---
Vital Signs 10/23/23 13:39 Height 4 ft 11 in Weight 163 lb 2.273 oz BMI 32.9 BP 118/52 L Blood Pressure Location Lt brachial Position Sitting Pulse 90 Pulse Source Pulse Oximeter Intake Visit Reasons: S/P EGD Intake Note: Ambika returns in follow up of EGD today. CC: Patient c/o a very strong RUQ abdominal pain on and off. She reports daily BMs. She also reports that she was vomiting for 4 weeks in the beginning of September and abdominal bloating. She also reports that she feels that when she eats she feels that her heart rate accelerates and gets indigestion. Manager Stone Required: Yes Manager Stone Name: [id number] Veronique Accompanied by: Spouse Allergies Iodinated Contrast Media [IV DYE, IODINE CONTAINING CONTRAST ] Allergy (Intermediate, Verified 10/23/23 13:40) SHORTNESS OF BREATH citalopram [From CELEXA] Allergy (Unknown, Verified 10/23/23 13:40) VOMITTING duloxetine [Cymbalta] Allergy (Unknown, Verified 10/23/23 13:40) unknown morphine [MORPHINE] Allergy (Unknown, Verified 10/23/23 13:40) PALPITATIONS-PT PREFERS NOT TO TAKE tramadol [TRAMADOL] Allergy (Unknown, Verified 10/23/23 13:40) VOMITING HPI HPI S/P EGD: Details: Assessment & Plan (1) Gastroparesis: Code(s): K31.84 - Gastroparesis (2) GERD (gastroesophageal reflux disease): Code(s): K21.9 - Gastro-esophageal reflux disease without esophagitis Qualifiers: Esophagitis presence: esophagitis presence not specified Qualified Code(s): K21.9 - Gastro-esophageal reflux disease without esophagitis (3) Oropharyngeal dysphagia: Code(s): R13.12 - Dysphagia, oropharyngeal phase (4) Cricopharyngeal hypertrophy: Code(s): J39.2 - Other diseases of pharynx (5) Irritable larynx syndrome: Comment: DX via her ENT Code(s): J38.7 - Other diseases of larynx Plan Salvadorean #Renetta Live She is here today with her who is quiet but supportive. She is experiencing palpitations today, and there was some variability of the pulse ox monitor, but I do her pulse and she is at 90 BPM and regular. She continues to follow with cardiology for this and intermittent chest pain. Long conversation about anemia and her oral iron therapy. Because it upsets her stomach and because we want her to be able to continue with this therapy I have advised her to take it with. While it is absorb slightly better on empty stomach most patients really can not tolerate this and this generally just causes early discontinuance of the therapy when slower absorption and better compliance will probably improve the anemia out look better in the long run. She received the bisacodyl but has not tried it yet because her BM's have been doing well and she has not had a return of the pain from pushing. She continues on Dexilant and famotidine for the GERD. She wants to use the Carafate p.r.n. and this is fine since it does seem to help subtle symptoms. She also continues on reglan 5mg. She is having intermittent problems with a warm feeling that will spread across her upper abd, and will be accompanied by acid brash coming up my throat. She also notes that she seems to have more GERD and acid brash when her stomach is empty. Her feels she has the sx because she does not eat, she admits her appetite is very poor when I eat I feel very sleepy and lose my drive to do anything, including sex and I have trouble catching my breath. Yet, she can not lose weight. She also c/o LINK, body aches and other general malaise sx. She has had normal thyroid studies, and is anemic but this is mild. No liver lab problems, no other lab problems noted. I suggest she try to snack all day long. Think that smaller more frequent meals with serve her better I encouraged her to buy that do not require a lot of preparation. Other that I really not sure what to make of all of her symptoms. At this point she is willing to wait until after the upper endoscopy to see me again. We doing this because she has intermittent episodes of dysphagia. EGD 10/09/23 Findings: Larynx:normal Esophagus: GE junction at 35 cm, diaphragm hiatus at 35 cm, bx taken from distal and proximal esophagus in separate jars, balloon dilation done at UES to 18 mm with superficial tear seen and at LES to 20 mm- no tear seen Stomach: mild erythema . Biopsies were obtained. Grade 2 flap valve on retroflexed examination of the cardia. Duodenum: Patchy erythema, bx taken Intervention: Biopsies as noted above, balloon dilation Impression/Findings: esophageal stricture mild gastritis PLAN: ensure compliance with PPI GERD precautions magic mouthwash for 1 week BIOPSY Received: 10/09/23 Diagnosis A. Duodenum, biopsy: Duodenal mucosa with preserved villi and no specific change, and fragments of gastric mucosa with minimal chronic inactive inflammation; negative for dysplasia (see comment). B. Esophagus, distal, biopsy: Squamous mucosa with no specific change; no columnar mucosa present. C. Esophagus, proximal, biopsy: Squamous mucosa with no specific change; no columnar mucosa present. Comment: (A): The findings may represent gastric heterotopia or biopsies of gastric mucosa and endoscopic correlation is necessary TODAY'S VISIT Salvadorean #[id number] She is here today with her who is supportive. She says she can not evaluate if the dilation helped her because she still has throat pain from the dilation. She never received the magic mouth wash as the pharmacy said the instructions were incorrect. This was sent by Dr. Mcbride, so I will forward this information to her. She had a recent episode of N/V and diarrhea with severe bloating. She also had pain to the right of the umbilicus stronger after the procedure. She describes the pain as colicky. But she also says this pain started happening more frequently in July, well before the EGD. She say her PCP and she was rx'ed metamucil as they thought it was CIC. But the metamucil did not help. She presented to the ER 09/18 because she had severe vomiting and tachycardia. Her episodes of vomiting continue despite taking her reglan 10mg. She feels like her heart races every time she eats, and she thinks this causes her to vomit. When she was in [place] when her sx were bad she took a bentyl and it greatly relieved her sx. But she does not take it daily because she fears constipation. BUT bently does not constipate everyone, it is more the carafate. I suggest she really needs to consider taking the bentyl daily or we could consider imipramine to reduce the pill burden. She continues on reglan 5mg qid, Dexilant, famotidine, bisacodyl, and carafate. She has multiple other complaints includining shaking, lack of coordination, migraines along with this. She thinks that Paxil may have caused her vomiting in September which she stopped. I will try mirtazepine as I am reluctant to use imipramine r/t tachcardia and CIC effects. We are not finding much organically wrong with her GI system, except possible bowel spasm. I fear that causes could be metabolic (pheochromocytoma or hypoaldosteronism etc.?), neurologic or psychogenic. ROV 4 weeks. [facility] Medical History Acute diarrhea Recurrent nephrolithiasis Vitamin D deficiency Obesity History of thyroiditis Fibroadenoma Lipoma Fibromyalgia NURIA positive Hx of lipoma Surgical History History of esophagogastroduodenoscopy (EGD) History of wisdom tooth extraction Family History Father Diabetes Heart attack Asthma Maternal Grandmother Diabetes HTN (hypertension) Parkinson disease Breast cancer Mother Diabetes Family history of diabetes mellitus Sister Asthma Maternal Grandfather Parkinson disease Social History Household Members: Children Housing: Condominium Are you a primary rn long term care to a significant other at home: No Do you presently have visiting nurse 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) Alcohol intake: never Patient Tobacco Use Status: Never used Tobacco Second Hand Smoke Exposure: Yes (Neighbors) service: No Current occupational status: disabled Sexual orientation: Straight/Heterosexual Gender identity: Female Female Reproductive History Menstrual Age of Menarche: 13 Review of Systems Const Denies fatigue, Denies fever(s), Reports headache(s), Denies night sweats, Denies poor appetite and Denies weight loss ENT Reports Normal hearing present, Denies dental pain, Denies dysphagia, Reports headache(s), Denies hearing loss, Denies mouth pain, Denies odynophagia, Denies throat swelling, Denies tongue swelling and Reports other (Dentition adequate) Card Reports no additional complaints Resp Reports no additional complaints GI Details: Reports abdominal pain, Denies melena, Reports bloating, Denies hematochezia, Reports constipation, Reports GI cramping, Denies dysphagia, Denies excessive flatus, Denies early satiety, Reports heartburn, Reports diarrhea, Reports nausea, Denies odynophagia, Reports vomiting and Denies hematemesis Reports change in libido Skin/Breast Denies pruritus, Denies lesions, Denies rash and Denies jaundice Neuro Reports Normal hearing present, Denies Abnormal speech present, Reports headache(s), Reports lack of coordination and Reports tremor(s) Psych Reports anxiety, Reports change in appetite and Reports change in libido Endo Reports change in libido and Denies fatigue Aller/Immun Denies throat swelling and Denies tongue swelling Physical Exam Vital Signs: Last Vital Signs Pulse 90 10/23/23 13:39 BP 118/52 L 10/23/23 13:39 BMI result Body Mass Index 32.9 Const General: cooperative, no acute distress, well developed and well groomed Nutritional Appearance: well nourished and obese Orientation/consciousness: oriented to person, oriented to place and oriented to time Limitations: language barrier HEENT Head: Yes normocephalic and Yes atraumatic Eyes General: appearance normal, both eyes and all related structures Pupils: Equal, round and reactive pupils present Neck Neck: Yes normal visual inspection and Yes no lymphadenopathy Thyroid: Thyroid normal Resp Effort & Inspection: normal respiratory effort and able to speak in complete sentences Auscultation: clear to auscultation bilaterally Cardio Rate: regular rate Rhythm: regular rhythm Heart sounds: Normal, physiologic split S2 sound present Peripheral pulses: radial pulses present and posterior tibial pulses present GI Inspection: No distended, Yes Abdominal panniculus present and Yes obesity Palpation (GI): Soft to palpation, Firmness to palpation present (GI), Tenderness to palpation present (GI) periumbilically, no guarding, not rigid and No hepatosplenomegaly present Percussion: Yes normal to percussion Auscultation: normal bowel sounds Rectal Exam - Female: deferred Skin General skin exam: no rashes or lesions noted, turgor normal, skin not dry, no jaundice, No spider nevi and no striae Rashes: no rashes Nails: normal Neuro General: oriented to person, oriented to place and oriented to time Cranial nerves: Yes Equal, round and reactive pupils present and Yes Normal hearing present Speech: No Abnormal speech present Extrem General: Yes normal to inspection, No clubbing, No cyanosis and No edema Psych Appearance: grossly normal and well kempt Mental Status: mental status grossly normal Speech and movement: Normal speech and movement present Affect: normal affect Attitude: cooperative Thought process: Normal thought process present and not confabulating Thought content: Normal thought content present Insight: Limited insight present (Psych) Judgement: Limited judgement present (Psych) Results Reviewed Results Reviewed: EGD 10/09/23 Findings: Larynx:normal Esophagus: GE junction at 35 cm, diaphragm hiatus at 35 cm, bx taken from distal and proximal esophagus in separate jars, balloon dilation done at UES to 18 mm with superficial tear seen and at LES to 20 mm- no tear seen Stomach: mild erythema . Biopsies were obtained. Grade 2 flap valve on retroflexed examination of the cardia. Duodenum: Patchy erythema, bx taken Intervention: Biopsies as noted above, balloon dilation Impression/Findings: esophageal stricture mild gastritis PLAN: ensure compliance with PPI GERD precautions magic mouthwash for 1 week BIOPSY Received: 10/09/23 Diagnosis A. Duodenum, biopsy: Duodenal mucosa with preserved villi and no specific change, and fragments of gastric mucosa with minimal chronic inactive inflammation; negative for dysplasia (see comment). B. Esophagus, distal, biopsy: Squamous mucosa with no specific change; no columnar mucosa present. C. Esophagus, proximal, biopsy: Squamous mucosa with no specific change; no columnar mucosa present. Comment: (A): The findings may represent gastric heterotopia or biopsies of gastric mucosa and endoscopic correlation is necessary Assessment & Plan Assessment & Plan (1) GERD (gastroesophageal reflux disease): Code(s): K21.9 - Gastro-esophageal reflux disease without esophagitis Category: Medical Qualifiers: Esophagitis presence: esophagitis presence not specified Qualified Code(s): K21.9 - Gastro-esophageal reflux disease without esophagitis (2) Gastroparesis: Code(s): K31.84 - Gastroparesis Category: Medical (3) Oropharyngeal dysphagia: Code(s): R13.12 - Dysphagia, oropharyngeal phase Category: Medical (4) Irritable bowel syndrome with constipation: Code(s): K58.1 - Irritable bowel syndrome with constipation Category: Medical Plan Salvadorean #[id number] She is here today with her who is supportive. She says she can not evaluate if the dilation helped her because she still has throat pain from the dilation. She never received the magic mouth wash as the pharmacy said the instructions were incorrect. This was sent by Dr. Mcbride, so I will forward this information to her. She had a recent episode of N/V and diarrhea with severe bloating. She also had pain to the right of the umbilicus stronger after the procedure. She describes the pain as colicky. But she also says this pain started happening more frequently in July, well before the EGD. She say her PCP and she was rx'ed metamucil as they thought it was CIC. But the metamucil did not help. She presented to the ER 09/18 because she had severe vomiting and tachycardia. Her episodes of vomiting continue despite taking her reglan 10mg. She feels like her heart races every time she eats, and she thinks this causes her to vomit. [place] she was in [place] when her sx were bad she took a bentyl and it greatly relieved her sx. But she does not take it daily because she fears constipation. BUT bently does not constipate everyone, it is more the carafate. I suggest she really needs to consider taking the bentyl daily or we could consider imipramine to reduce the pill burden. She continues on reglan 5mg qid, Dexilant, famotidine, bisacodyl, and carafate. She has multiple other complaints includining shaking, lack of coordination, migraines along with this. She thinks that Paxil may have caused her vomiting in September which she stopped. I will try mirtazepine as I am reluctant to use imipramine r/t tachcardia and CIC effects. We are not finding much organically wrong with her GI system, except possible bowel spasm. I fear that causes could be metabolic (pheochromocytoma or hypoaldosteronism etc.?), neurologic or psychogenic. ROV 4 weeks. Medications: New mirtazapine 15 mg PO BEDTIME 30 tabs 6RF 30 days K58.1 - Irritable bowel syndrome with constipation [id number] 24,000-76,000 -120,000 unit (Creon) administer with meals and/or snacks 1 cap PO TID 90 caps 6RF Refilled dexlansoprazole (Dexilant) 60 mg PO DAILY 90 caps 1RF 30 days famotidine 40 mg PO BEDTIME 90 tabs 2RF dicyclomine 10 mg PO TID 90 caps 6RF metoclopramide HCl (Reglan) provider aware of possible interaction and is monitoring 5 mg PO QIDACHS 120 tabs 6RF K31.84 - Gastroparesis simethicone after meals 180 mg PO BID 60 caps 6RF 30 days Coding Level of Care Code Est Pt Level 4 (84068) Diagnoses Gastroesophageal reflux disease, unspecified whether esophagitis present K21.9 Esophagitis presence: esophagitis presence not specified Gastroparesis K31.84 Oropharyngeal dysphagia R13.12 Irritable bowel syndrome with constipation K58.1 Time Spent (min) 41
[2023-10-23 13:39] VITALS: BP 118/52; PULSE 90; BMI 32.9
== END 2023-10-23 14:53 | disposition home or self-care (01) ==
PROVIDERS: PCP Student in an Organized Health Care Education/Training Program; Visit Provider Nurse Practitioner
DX: K21.9 Gastro-esophageal reflux disease without esophagitis (principal); K31.84 Gastroparesis; R13.12 Dysphagia, oropharyngeal phase; K58.1 Irritable bowel syndrome with constipation
CPT/HCPCS: 99214

== ENCOUNTER → 2023-10-23 13:31 | Outpatient (BNVA) | payer MEDICAID, SELFPAY | PROVIDERS: PCP Student in an Organized Health Care Education/Training Program; Visit Provider Nurse Practitioner | DX: K31.84 Gastroparesis (principal); K21.9 Gastro-esophageal reflux disease without esophagitis; R13.12 Dysphagia, oropharyngeal phase; J39.2 Other diseases of pharynx; J38.7 Other diseases of larynx | CPT/HCPCS: 99212 ==

== ENCOUNTER → 2023-10-24 12:50 | Outpatient (REF) | payer MEDICAID, SELFPAY | LOC: HO.SL 12:50 | PROVIDERS: PCP Student in an Organized Health Care Education/Training Program; Visit Provider Psychiatry & Neurology Neurology | DX: Z13.89 Encounter for screening for other disorder (principal) ==

== ENCOUNTER 2023-10-30 14:33 | Outpatient (REF) | payer MEDICAID, SELFPAY | END 2023-10-30 14:34 | disposition home or self-care (01) | LOC: HO.LNP 14:33 | PROVIDERS: PCP Student in an Organized Health Care Education/Training Program; Visit Provider Obstetrics & Gynecology | DX: Z01.419 Encounter for gynecological examination (general) (routine) without abnormal findings (principal); N92.0 Excessive and frequent menstruation with regular cycle; N64.4 Mastodynia; N63.25 Unspecified lump in the left breast, overlapping quadrants | CPT/HCPCS: 99395 ==

== ENCOUNTER 2023-10-30 14:33 | Outpatient (AMB) | payer MEDICAID, SELFPAY ==
[2023-10-30 14:38] VITALS: BP 108/66; BMI 32.9
--- NOTE | 2023-10-30 14:38 | MHC.OFFVIS ---
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: Yes Document Scanner Language: Air Conditioning Mechanic Industrial Name: Renee PAZ Information Interpreted: non-clinical & clinical Professor Of Graphic Design: Professor Of Graphic Design Present (Renee PAZ) Accompanied by: Self / Same As Patient Allergies Iodinated Contrast Media [IV DYE, IODINE CONTAINING CONTRAST ] Allergy (Intermediate, Verified 10/30/23 14:47) SHORTNESS OF BREATH citalopram [From CELEXA] Allergy (Unknown, Verified 10/30/23 14:47) VOMITTING duloxetine [Cymbalta] Allergy (Unknown, Verified 10/30/23 14:47) unknown morphine [MORPHINE] Allergy (Unknown, Verified 10/30/23 14:47) PALPITATIONS-PT PREFERS NOT TO TAKE tramadol [TRAMADOL] Allergy (Unknown, Verified 10/30/23 14:47) VOMITING Is last menstrual period known: Yes Last menstrual period: 10/17/23 HPI Comments Details: Presenting for annual exam. Complaining of regular heavy menstrual cycles associated passage of blood clots and pelvic cramping in addition to left breast pain of few days' duration Last Pap/HPV was negative in 11/03 [facility] Medical History Acute diarrhea Recurrent nephrolithiasis Vitamin D deficiency Obesity History of thyroiditis Fibroadenoma Lipoma Fibromyalgia NURIA positive Hx of lipoma Surgical History History of esophagogastroduodenoscopy (EGD) History of wisdom tooth extraction Family History Father Diabetes Heart attack Asthma Maternal Grandmother Diabetes HTN (hypertension) Parkinson disease Breast cancer Mother Diabetes Family history of diabetes mellitus Sister Asthma Maternal Grandfather Parkinson disease Social History Household Members: Children [facility] Are you a primary transitional care manager to a significant other at home: No Do you presently have visiting nurse 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 (shank sorter) Alcohol intake: never Patient Tobacco Use Status: Never used Tobacco Second Hand Smoke Exposure: Yes (Neighbors) service: No Current occupational status: disabled Sexual orientation: Straight/Heterosexual Gender identity: Female Female Reproductive History Menstrual Age of Menarche: 13 Date of last menstrual period: 10/17/23 Total pregnancies: 1 Full term: 1 Number of Living Children: 1 Review of Systems Const All systems reviewed & are unremarkable except as noted in HPI and below Card Reports as per HPI Resp Reports as per HPI GI Reports as per HPI and Reports no additional complaints Reports as per HPI Physical Exam Vital Signs: BMI result Body Mass Index 32.9 Const General: cooperative, healthy appearing and comfortable Chest Chest palpation & inspection: normal inspection of the chest and normal palpation of entire chest wall Breast/axilla inspection: normal inspection of the breasts and normal inspection of the axillae Breast/axilla palpation: normal palpation of the breasts (Right breast within normal), normal palpation of the axillae, no axillary lymphadenopathy and abnormal palpation of the breast (Left breast 2 cm lump 4 cm from the nipple at 03:00 o'clock) Resp Effort & Inspection: normal respiratory effort Auscultation: clear to auscultation bilaterally Percussion: percussion normal Cardio Palpation: normal PMI Rate: regular rate Rhythm: regular rhythm Heart sounds: no murmurs and no rubs Peripheral pulses: Peripheral pulses 2+ throughout GI Inspection: Yes normal to inspection Palpation (GI): Soft to palpation, nontender, no guarding, not rigid and No hepatosplenomegaly present Percussion: Yes normal to percussion Auscultation: normal bowel sounds Rectal Exam - Female: deferred General: Yes bladder normal to palpation External Female Exam: No lesion Speculum Exam - Vagina: normal appearance of the vagina, normal palpation, normal vaginal discharge and not erythematous Speculum Exam - Cervix: normal appearance of the cervix and normal palpation Bimanual exam- vagina & uterus: normal bimanual exam, normal palpation, uterine size normal, bladder normal to palpation, consistency normal and normal palpation Bimanual Exam- Adnexa, other: normal adnexae, no masses and no tenderness Assessment & Plan Assessment & Plan (1) Well woman exam: Code(s): Z01.419 - Encounter for gynecological examination (general) (routine) without abnormal findings Category: Medical Plan: Cotesting not indicated this year. Counseled the patient about the recommended dietary allowance of 1000 mg of Calcium & 600 IU of vitamin D. The patient was instructed to perform monthly self-breast exams and to schedule an annual exam in a year; All questions answered and the patient verbalized understanding. Instructed the patient to schedule annual exam in a year (2) Breast lump: Comment: Left breast 03:00 o'clock for cm from the nipple Code(s): N63.0 - Unspecified lump in unspecified breast Category: Medical Plan: Discussed with the patient the finding on Breast exam (breast lump) .The differential diagnosis includes but not limited to lump/cyst/pre cancer/cancer or dense breast tissue. The work up includes breast US and diagnostic mammogram and referred the patient for surgical breast consult. (3) Abnormal uterine bleeding (AUB): Comment: NURIA positive Code(s): N93.9 - Abnormal uterine and vaginal bleeding, unspecified Category: Medical Plan: GC and chlamydia taken CBC, TSH, prolactin, HCG, and pelvic ultrasound ordered. Discussed with the patient the different causes of abnormal bleeding including thyroid disorders, uterine and ovarian pathology, endometrial hyperplasia, carcinoma and other potential causes. Discussed with the patient the work up including CBC (to r/o anemia), TSH, prolactin, pelvic Ultrasound, endometrial biopsy to r/o endometrial pathology. All questions answered and the patient verbalized understanding. Instructed the patient to schedule an appointment for an endometrial biopsy in 2 weeks. Orders: Orders CT NG by PCR Today N93.9 - Abnormal uterine and vaginal bleeding, unspecified MM tomosynthesis diagnostic BI Today N63.0 - Unspecified lump in unspecified breast TSH reflex Free T4 Today N93.9 - Abnormal uterine and vaginal bleeding, unspecified Prolactin Today N93.9 - Abnormal uterine and vaginal bleeding, unspecified Complete Blood Count no Diff Today N93.9 - Abnormal uterine and vaginal bleeding, unspecified US pelvic and transvaginal Today N93.9 - Abnormal uterine and vaginal bleeding, unspecified US breast LT complete Today N63.0 - Unspecified lump in unspecified breast HCG Quantitative Today N93.9 - Abnormal uterine and vaginal bleeding, unspecified Referrals General Surgery Referral N63.0 - Unspecified lump in unspecified breast Coding Level of Care Code Est Pt Prev Care 18-39y(70192) Diagnoses Well woman exam Z01.419 Breast lump N63.0 Abnormal uterine bleeding (AUB) N93.9
== END 2023-10-30 15:03 | disposition home or self-care (01) ==
PROVIDERS: PCP Student in an Organized Health Care Education/Training Program; Referring Provider Student in an Organized Health Care Education/Training Program; Visit Provider Obstetrics & Gynecology
DX: Z01.419 Encounter for gynecological examination (general) (routine) without abnormal findings (principal); N63.0 Unspecified lump in unspecified breast; N93.9 Abnormal uterine and vaginal bleeding, unspecified
CPT/HCPCS: 99395

== ENCOUNTER 2023-10-30 15:07 | Outpatient (REF) | payer MEDICAID, SELFPAY ==
[2023-10-30 15:31] LABS: Hematocrit 37.5 % (37.0-47.0); Hemoglobin 11.5 g/dl (12.0-16.0); Mean Corpuscular HGB Conc 30.7 g/dl (31.0-35.0); Mean Corpuscular Hemoglobin 24.7 pg (27.0-33.0); Mean Corpuscular Volume 80.5 fL (80.0-98.0); Mean Platelet Volume 11.1 fL (9.4-12.3); Platelet Count 309 X10*3/uL (160-400); Red Blood Count 4.66 X10*6/uL (4.20-5.50); White Blood Count 9.1 X10*3/uL (4.8-10.8)
[2023-10-30 16:11] LABS: HCG Quantitative < 2 mIU/mL; TSH reflex Free T4 0.79 uIU/mL (0.32-4.0)
[2023-10-31 02:14] LABS: CT PCR NOT DETECTED (Not Detect.); NG PCR NOT DETECTED (Not Detect.)
[2023-10-31 08:49] LABS: Prolactin 14.3 ng/mL
== END 2023-10-30 15:08 | disposition home or self-care (01) ==
LOC: HO.LAB 15:07
PROVIDERS: PCP Student in an Organized Health Care Education/Training Program; Visit Provider Obstetrics & Gynecology
DX: N93.9 Abnormal uterine and vaginal bleeding, unspecified (principal)
CPT/HCPCS: 0353U; 84146; 84443; 84702; 85027; 99395

== ENCOUNTER → 2023-11-01 11:03 | Outpatient (REF) | payer MEDICAID, SELFPAY ==
--- NOTE | 2023-11-01 11:07 | HM_ITS ---
* Total monitoring time 7 days. * Underlying rhythm is sinus with an average rate of 84/Min. About 18% of the time, rate > 100/Min. Sinus tachycardia with a maximum rate of 172/Min. * Occasional supraventricular and ventricular ectopy. * No significant pauses or AV blocks. * Patient marker used in association with sinus tachycardia. * No diary events. MTDD
--- NOTE | 2023-11-01 11:07 | CA_ITS ---
Acquisition Time: 2023-11-01 11:03:45 Total Exercise Time: 00:05:53 Test Indications: ABN EKG Medications: SEE H Protocol: MALOU Max HR: 176 BPM 95% of Pred: 184 BPM Max BP: 156/074 mmHG Max Work Load: 7.0 METS Exercise stress test exercise 5 min 53 sec of Malou protocol achieivng 95% MPHR, with 8/.10 chest stabbing at 3 minutes exercise and resolved approximately 1 minute later then at 3.5 min recovery 10/10 mid chest pain which resolved by 5 minutes recovery with mild SOB, without arrhythmias seen through artfact,with scooping noted at baseline in leads 2, 3, aVF, and V3-V6 which became horizontal depression with exercise with quick blood pressure return to baseline in recovery without dizziness. with Uponn standing she would go from 90s to approximately 120 bpm and return back to 90s. Referred By: Michell Espinoza Overread By: Cheli Veliz
== END ==
LOC: HO.CARD 11:03
PROVIDERS: PCP Student in an Organized Health Care Education/Training Program; Visit Provider Nurse Practitioner Family
DX: R07.89 Other chest pain (principal); R00.2 Palpitations; R94.31 Abnormal electrocardiogram [ECG] [EKG]
CPT/HCPCS: 93242; 93350; Q9957

== ENCOUNTER → 2023-11-01 11:07 | Outpatient (BNV) | payer MEDICAID, SELFPAY | PROVIDERS: PCP Student in an Organized Health Care Education/Training Program; Visit Provider Nurse Practitioner | DX: R00.0 Tachycardia, unspecified (principal) | CPT/HCPCS: 93016; 93018; 93244; 93350; 93352 ==

== ENCOUNTER 2023-11-19 12:58 | Outpatient (REF) | payer MEDICAID, SELFPAY ==
--- NOTE | ~2023-11-19 | MM_ITS ---
EXAMINATION: MM DIAGNOSTIC DIGITAL BREAST TOMOSYNTHESIS, BILATERAL US BREAST LIMITED, LEFT CLINICAL INFORMATION: 38-year-old with focal palpable nodularity at routine clinical exam anterior 3:00 left breast. Prior history bilateral benign breast biopsies 2013 and 2011 (fibroadenoma; 2 on left and 1 on right). COMPARISON: Mammography: 11/23/2020, 11/18/2019, 03/19/2014, 11/22/2011; targeted left breast ultrasound 11/23/2020, 11/18/2019, 03/18/2014; ultrasound-guided left breast biopsy 11/22/2011. TECHNIQUE: Digital breast tomosynthesis is performed in both the craniocaudal and mediolateral oblique views along with computer-aided detection (CAD). Synthesized 2D images are generated from the tomosynthesis. FINDINGS: The breasts are heterogeneously dense, which may obscure small masses (ACR BI-RADS breast composition Category c). The RIGHT breast is stable nodule with overlying biopsy clip marker and some peripheral coarse calcification anterior upper outer quadrant. Palpable marker LEFT breast anterior one third lies directly above an oval mass approximate 3:00 location with associated biopsy clip, consistent with previously biopsied benign fibroadenoma, measuring approximately 1.6 x 1.7 x 1.3 cm, unchanged from prior exams on mammography. Otherwise, parenchymal pattern is stable from prior exams. There are several oval masses in both breasts, 3 with biopsy clips present, known fibroadenomas, making others highly likely to be stable fibroadenomas as well. These are unchanged over 4 years. No suspicious calcifications or areas of architectural distortion identified. No skin or axillary abnormalities. ULTRASOUND: CLINICAL INFORMATION: As above. COMPARISON: As above. TECHNIQUE: Targeted sonographic evaluation was performed using a high frequency linear transducer. Attention was given to the 3:00 left periareolar palpable focus. Selected archived documentation. FINDINGS: LEFT BREAST: In the region of palpable concern at the 3:00 axis, there is a stable mildly lobular oval hypoechoic mass in keeping with the known biopsied fibroadenoma in this location. Echogenic biopsy clip visible. It is unchanged in size and appearance, measuring approximately 1.9 x 1.6 x 0.9 cm. No concerning abnormalities are seen. MM/MM tomosynthesis diagnostic BI IMPRESSION: -There are no significant changes from prior studies. Palpable abnormality is once again a previously biopsied benign and stable fibroadenoma anterior 3:00 left breast. There are no findings suspicious for malignancy. -Stable bilateral masses, 3 of which have been biopsied and are consistent with fibroadenomas. Other masses are stable and also likely fibroadenomas. -Stable heterogeneously dense breast tissue. OVERALL ASSESSMENT: Mammography: BI-RADS 2 - Benign Findings Ultrasound: BI-RADS 2 - Benign Findings RECOMMENDATION: 1 year F/U This patient's information was entered into a reminder system with a target due date for their next mammogram.
== END 2023-11-19 12:59 | disposition home or self-care (01) ==
LOC: HO.MAMMO 12:58
PROVIDERS: PCP Student in an Organized Health Care Education/Training Program; Visit Provider Obstetrics & Gynecology
DX: N63.25 Unspecified lump in the left breast, overlapping quadrants (principal)
CPT/HCPCS: 76642; 77062; 77066

== ENCOUNTER → 2023-11-19 13:00 | Outpatient (BNV) | payer MEDICAID, SELFPAY | PROVIDERS: PCP Student in an Organized Health Care Education/Training Program; Visit Provider Radiology Diagnostic Radiology | DX: N63.25 Unspecified lump in the left breast, overlapping quadrants (principal) | CPT/HCPCS: 76642; 77062; 77066 ==

== ENCOUNTER 2023-11-20 14:53 | Outpatient (AMB) | payer MEDICAID, SELFPAY ==
[2023-11-20 15:00] VITALS: BP 114/59; PULSE 79; BMI 33.8
--- NOTE | 2023-11-20 15:00 | A.OFFVIS_ITS ---
Vital Signs 11/20/23 15:00 Height 4 ft 11 in Weight 167 lb 8.821 oz BMI 33.8 BP 114/59 L Blood Pressure Location Lt brachial Position Sitting Pulse 79 Intake Visit Reasons: 4 week follow up Intake Note: Ambika presents to in office visit today in 4 weeks follow up of IBS and GERD. CC: Patient states that she is having constant headache for about a week that she feels it radiates to her teeth . She also continues having palpitations. She states that she has not anymore vomiting since her last visit but is not having much appetite. Heading Maker Required: Yes Accompanied by: Self / Same As Patient Allergies Iodinated Contrast Media [IV DYE, IODINE CONTAINING CONTRAST ] Allergy (Intermediate, Verified 11/20/23 15:11) SHORTNESS OF BREATH citalopram [From CELEXA] Allergy (Unknown, Verified 11/20/23 15:11) VOMITTING duloxetine [Cymbalta] Allergy (Unknown, Verified 11/20/23 15:11) unknown morphine [MORPHINE] Allergy (Unknown, Verified 11/20/23 15:11) PALPITATIONS-PT PREFERS NOT TO TAKE tramadol [TRAMADOL] Allergy (Unknown, Verified 11/20/23 15:11) VOMITING HPI HPI 4 week follow up: Details: Assessment & Plan (1) GERD (gastroesophageal reflux disease): Code(s): K21.9 - Gastro-esophageal reflux disease without esophagitis Category: Medical Qualifiers: Esophagitis presence: esophagitis presence not specified Qualified Code(s): K21.9 - Gastro-esophageal reflux disease without esophagitis (2) Gastroparesis: Code(s): K31.84 - Gastroparesis Category: Medical (3) Oropharyngeal dysphagia: Code(s): R13.12 - Dysphagia, oropharyngeal phase Category: Medical (4) Irritable bowel syndrome with constipation: Code(s): K58.1 - Irritable bowel syndrome with constipation Category: Medical Plan Divehi #[id number] She is here today with her who is supportive. She says she can not evaluate if the dilation helped her because she still has throat pain from the dilation. She never received the magic mouth wash as the pharmacy said the instructions were incorrect. This was sent by Dr. Mcbride, so I will forward this information to her. She had a recent episode of N/V and diarrhea with severe bloating. She also had pain to the right of the umbilicus stronger after the procedure. She describes the pain as colicky. But she also says this pain started happening more frequently in July, well before the EGD. She say her PCP and she was rx'ed metamucil as they thought it was CIC. But the metamucil did not help. She presented to the ER 09/18 because she had severe vomiting and tachycardia. Her episodes of vomiting continue despite taking her reglan 10mg. She feels like her heart races every time she eats, and she thinks this causes her to vomit. When she was in [place] when her sx were bad she took a bentyl and it greatly relieved her sx. But she does not take it daily because she fears constipation. BUT bently does not constipate everyone, it is more the carafate. I suggest she really needs to consider taking the bentyl daily or we could consider imipramine to reduce the pill burden. She continues on reglan 5mg qid, Dexilant, famotidine, bisacodyl, and carafate. She has multiple other complaints including shaking, lack of coordination, migraines along with this. She thinks that Paxil may have caused her vomiting in September which she stopped. I will try mirtazepine as I am reluctant to use imipramine r/t tachcardia and CIC effects. We are not finding much organically wrong with her GI system, except possible bowel spasm. I fear that causes could be metabolic (pheochromocytoma or hypoaldosteronism etc.?), neurologic or psychogenic. ROV 4 weeks. Medications: New mirtazapine 15 mg PO BEDTIME 30 tabs 6RF 30 days K58.1 - Irritable bowel syndrome with constipation [id number] 24,000-76,000 -120,000 unit (Creon) administer with meals and/or snacks 1 cap PO TID 90 caps 6RF Refilled dexlansoprazole (Dexilant) 60 mg PO DAILY 90 caps 1RF 30 days famotidine 40 mg PO BEDTIME 90 tabs 2RF dicyclomine 10 mg PO TID 90 caps 6RF metoclopramide HCl (Reglan) provider aware of possible interaction and is monitoring 5 mg PO QIDACHS 120 tabs 6RF K31.84 - Gastroparesis simethicone after meals 180 mg PO BID 60 caps 6RF 30 days TODAY'S VISIT Divehi #Derik We had tried mitazepine to see if anxiety was driving her sx - she did not take it because she had some nocturnal confusion and wt gain when she took it in the past. She expresses some desire to re try this at the lowest dose, and I will leave that up to her. She received the creon but is not taking it as directed became she thought she had to take it with food, I explain that this is not necessary and she can experiment with taking 2 qam and 1qpm. she did increase how often she is taking the bnetyl and she feels this has been helpful. She has less N/V. She still is having problems with appetite and LINK's. She also notes that her stomach gets very upset when her tachycardia is bad. she says I don't know if its a type of panic attack of something to do with my circulation. She takes fioricet for LINK. She may have a contributing migraine variant. She had a recent stress test and electronic device monitor that were negative for any severe pathology. She also reports menorrhagia. Recent blood work showed anemia and she was to take iron but she is afraid because iron gives me GERD. I advise her to take it with her largest meal to offset stomach upset etc. She is seeing her internal grinding machine operator about this. For now we will not change the GI regimen, she can try the mirtazepine if she desires, and we will wait and watch. I suggest that a trial of propranolol for both tachycardia and migraine prophylaxis may be prudent. This may also help with her anxiety. She prefers to wait and discuss this with the enamel dipper which, of course is fine. ROV 8 weeks. PFSH Medical History Acute diarrhea Recurrent nephrolithiasis Vitamin D deficiency Obesity History of thyroiditis Fibroadenoma Lipoma Fibromyalgia NURIA positive Hx of lipoma Surgical History History of esophagogastroduodenoscopy (EGD) History of wisdom tooth extraction Family History Father Diabetes Heart attack Asthma Maternal Grandmother Diabetes HTN (hypertension) Parkinson disease Breast cancer Mother Diabetes Family history of diabetes mellitus Sister Asthma Maternal Grandfather Parkinson disease Social History Household Members: Children Housing: Condominium Are you a primary career agent to a significant other at home: No Do you presently have visiting nurse 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) Alcohol intake: never Patient Tobacco Use Status: Never used Tobacco Second Hand Smoke Exposure: Yes (Neighbors) service: No Current occupational status: disabled Sexual orientation: Straight/Heterosexual Gender identity: Female Female Reproductive History Menstrual Age of Menarche: 13 Review of Systems Const Denies fatigue, Denies fever(s), Reports headache(s), Denies night sweats, Denies poor appetite, Reports weakness and Denies weight loss ENT Reports Normal hearing present, Denies dental pain, Denies dysphagia, Reports headache(s), Denies hearing loss, Denies mouth pain, Denies odynophagia, Denies throat swelling, Denies tongue swelling and Reports other (Dentition adequate) Card Reports lightheadedness and Reports palpitations Resp Reports no additional complaints GI Details: Reports abdominal pain, Denies melena, Denies bloating, Denies hematochezia, Reports constipation, Denies GI cramping, Denies dysphagia, Denies excessive flatus, Denies early satiety, Reports dyspepsia, Reports heartburn, Reports diarrhea, Reports nausea, Denies odynophagia, Denies vomiting and Denies hematemesis Reports menorrhagia Skin/Breast Denies pruritus, Denies lesions, Denies rash and Denies jaundice Neuro Reports Normal hearing present, Denies Abnormal speech present, Reports headache(s) and Reports weakness Psych Reports anxiety and Reports panic attacks Endo Denies fatigue and Reports palpitations Aller/Immun Denies throat swelling and Denies tongue swelling Physical Exam Vital Signs: Last Vital Signs Pulse 79 11/20/23 15:00 BP 114/59 L 11/20/23 15:00 BMI result Body Mass Index 33.8 Const General: cooperative, no acute distress, well developed and well groomed Nutritional Appearance: well nourished and obese Orientation/consciousness: oriented to person, oriented to place and oriented to time Limitations: language barrier HEENT Head: Yes normocephalic and Yes atraumatic Eyes General: appearance normal, both eyes and all related structures Pupils: Equal, round and reactive pupils present Neck Neck: Yes normal visual inspection and Yes no lymphadenopathy Thyroid: Thyroid normal Resp Effort & Inspection: normal respiratory effort and able to speak in complete sentences Auscultation: clear to auscultation bilaterally Cardio Rate: regular rate Rhythm: regular rhythm Heart sounds: Normal, physiologic split S2 sound present Peripheral pulses: radial pulses present and posterior tibial pulses present GI Inspection: No distended, No Abdominal panniculus present and Yes obesity Palpation (GI): Soft to palpation, nontender, no guarding, not rigid and No hepatosplenomegaly present Percussion: Yes normal to percussion Auscultation: normal bowel sounds Rectal Exam - Female: deferred Skin General skin exam: no rashes or lesions noted, turgor normal, skin not dry, no jaundice, No spider nevi and no striae Rashes: no rashes Nails: normal Neuro General: oriented to person, oriented to place and oriented to time Cranial nerves: Yes Equal, round and reactive pupils present and Yes Normal hearing present Speech: No Abnormal speech present Extrem General: Yes normal to inspection, No clubbing, No cyanosis and No edema Psych Appearance: grossly normal and well kempt Mental Status: mental status grossly normal Speech and movement: Pressured speech present Affect: Animated affect present Attitude: cooperative Thought process: not confabulating and Tangential thought process present Thought content: Normal thought content present Insight: Limited insight present (Psych) Judgement: Limited judgement present (Psych) Assessment & Plan Assessment & Plan (1) Oropharyngeal dysphagia: Code(s): R13.12 - Dysphagia, oropharyngeal phase Category: Medical (2) Irritable bowel syndrome with constipation: Code(s): K58.1 - Irritable bowel syndrome with constipation Category: Medical (3) GERD (gastroesophageal reflux disease): Code(s): K21.9 - Gastro-esophageal reflux disease without esophagitis Category: Medical Qualifiers: Esophagitis presence: esophagitis presence not specified Qualified Code(s): K21.9 - Gastro-esophageal reflux disease without esophagitis (4) Gastroparesis: Code(s): K31.84 - Gastroparesis Category: Medical Plan Divehi #Derik We had tried mitazepine to see if anxiety was driving her sx - she did not take it because she had some nocturnal confusion and wt gain when she took it in the past. She expresses some desire to re try this at the lowest dose, and I will leave that up to her. She received the creon but is not taking it as directed became she thought she had to take it with food, I explain that this is not necessary and she can experiment with taking 2 qam and 1qpm. she did increase how often she is taking the bnetyl and she feels this has been helpful. She has less N/V. She still is having problems with appetite and LINK's. She also notes that her stomach gets very upset when her tachycardia is bad. she says I don't know if its a type of panic attack of something to do with my circulation. She takes fioricet for LINK. She may have a contributing migraine variant. She had a recent stress test and electronic device monitor that were negative for any severe pathology. She also reports menorrhagia. Recent blood work showed anemia and she was to take iron but she is afraid because iron gives me GERD. I advise her to take it with her largest meal to offset stomach upset etc. She is seeing her internal grinding machine operator about this. For now we will not change the GI regimen, she can try the mirtazepine if she desires, and we will wait and watch. I suggest that a trial of propranolol for both tachycardia and migraine prophylaxis may be prudent. This may also help with her anxiety. She prefers to wait and discuss this with the enamel dipper which, of course is fine. ROV 8 weeks. Coding Level of Care Code Est Pt Level 3 (07494) Diagnoses Oropharyngeal dysphagia R13.12 Irritable bowel syndrome with constipation K58.1 Gastroesophageal reflux disease, unspecified whether esophagitis present K21.9 Esophagitis presence: esophagitis presence not specified Gastroparesis K31.84
== END 2023-11-20 15:52 | disposition home or self-care (01) ==
PROVIDERS: PCP Student in an Organized Health Care Education/Training Program; Visit Provider Nurse Practitioner
DX: R13.12 Dysphagia, oropharyngeal phase (principal); K58.1 Irritable bowel syndrome with constipation; K21.9 Gastro-esophageal reflux disease without esophagitis; K31.84 Gastroparesis
CPT/HCPCS: 99213

== ENCOUNTER → 2023-11-20 14:53 | Outpatient (BNVA) | payer MEDICAID, SELFPAY | PROVIDERS: PCP Student in an Organized Health Care Education/Training Program; Visit Provider Nurse Practitioner | DX: R13.12 Dysphagia, oropharyngeal phase (principal); K58.1 Irritable bowel syndrome with constipation; K21.9 Gastro-esophageal reflux disease without esophagitis; K31.84 Gastroparesis | CPT/HCPCS: 99212 ==

== ENCOUNTER 2023-11-22 13:45 | Outpatient (AMB) | payer MEDICAID, SELFPAY ==
--- NOTE | 2023-11-22 13:50 | A.OFFVIS_ITS ---
Vital Signs 11/22/23 13:51 Height 4 ft 11 in Weight 169 lb 12.095 oz BMI 34.3 BP 120/68 Blood Pressure Location Lt brachial Position Sitting Pulse 89 Pulse Source Pulse Oximeter Intake Visit Reasons: 6 wk follow up/echo/holter Sales Contracts Analyst Required: Yes Sales Contracts Analyst Name: [facility] Allergies Iodinated Contrast Media [IV DYE, IODINE CONTAINING CONTRAST ] Allergy (Intermediate, Verified 11/20/23 15:11) SHORTNESS OF BREATH citalopram [From CELEXA] Allergy (Unknown, Verified 11/20/23 15:11) VOMITTING duloxetine [Cymbalta] Allergy (Unknown, Verified 11/20/23 15:11) unknown morphine [MORPHINE] Allergy (Unknown, Verified 11/20/23 15:11) PALPITATIONS-PT PREFERS NOT TO TAKE tramadol [TRAMADOL] Allergy (Unknown, Verified 11/20/23 15:11) VOMITING Medication List - Last Reconciled 11/22/23 by Michell Espinoza NP-C albuterol sulfate 90 mcg/actuation (Ventolin HFA) 1 inh inhalation QID bisacodyl (Dulcolax (bisacodyl)) 10 mg (2 x 5 mg) PO BEDTIME 30 days isdwfyhjeb-tcxwiuzlcmajt-gfdv 50-325-40 mg 1 tab PO Q8H PRN dexlansoprazole (Dexilant) 60 mg PO DAILY 30 days diclofenac sodium 1% 4 grams topical BID dicyclomine 10 mg PO TID famotidine 40 mg PO BEDTIME ferrous gluconate 324 mg PO DAILY ibuprofen 400 mg PO Q4-6H PRN mhngnc-jaspxwxz-umtorvv 24,000-76,000 -120,000 unit (Creon) 1 cap PO TID loratadine (Children's Allergy Relief (loratadine)) 10 mL PO DAILY lorazepam 1 mg PO BEDTIME PRN metoclopramide HCl (Reglan) 5 mg PO QIDACHS mirtazapine 15 mg PO BEDTIME 30 days pregabalin 75 mg PO BID simethicone 180 mg PO BID 30 days terconazole 0.8% 1 appful vaginal BEDTIME 3 days HPI HPI 6 wk follow up/echo/holter: Details: Ambika is a 38-year-old female with past medical history of syncope, abnormal findings on EKG who is being evaluated for heart palpitations and chest discomfort. She recently had a Holter monitor and stress echocardiogram and now presents for follow-up. Today she reports that she is still getting sharp pains in her chest which occur randomly. She describes it as stabbing, nonexertional. It is not increasing in frequency since last visit but still causing her much concern. She is also still having intermittent heart palpitations where she feels her heart going fast for no reason. She says she can just be sitting watching TV and her heart will go fast. She does report issues with anxiety and has a psychiatrist. No shortness of breath, PND, orthopnea or edema. No lightheadedness, presyncope, syncope, falls. Family member present. Certified sample tester grinder used. [facility] Medical History Acute diarrhea Recurrent nephrolithiasis Vitamin D deficiency Obesity History of thyroiditis Fibroadenoma Lipoma Fibromyalgia NURIA positive Hx of lipoma Surgical History History of esophagogastroduodenoscopy (EGD) History of wisdom tooth extraction Family History Father Diabetes Heart attack Asthma Maternal Grandmother Diabetes HTN (hypertension) Parkinson disease Breast cancer Mother Diabetes Family history of diabetes mellitus Sister Asthma Maternal Grandfather Parkinson disease Social History Household Members: Children Housing: [facility] Are you a primary palliative care nurse to a significant other at home: No Do you presently have 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) Alcohol intake: never Patient Tobacco Use Status: Never used Tobacco Second Hand Smoke Exposure: Yes (Neighbors) service: No Current occupational status: disabled Sexual orientation: Straight/Heterosexual Gender identity: Female Female Reproductive History Menstrual Age of Menarche: 13 Review of Systems Const All systems reviewed & are unremarkable except as noted in HPI and below Denies weakness ENT Details: Migraine headaches Denies dizziness Card Reports chest pain, Reports chest pain at rest, Denies chest pain with activity, Denies syncope, Reports rapid heart rate, Denies pedal edema, Denies edema, Denies leg edema, Denies lightheadedness, Denies palpitations, Denies dyspnea, Denies dyspnea on exertion and Denies orthopnea Resp Denies cough, Denies dyspnea and Denies dyspnea on exertion GI Denies hematochezia and Denies change in stool character Musc Denies abnormal gait, Denies muscle cramps, Denies muscle weakness, Denies numbness, Denies radiating pain into limb and Denies tingling Neuro Denies abnormal gait, Denies dizziness, Denies syncope, Denies numbness, Denies tingling and Denies weakness Endo Denies palpitations Physical Exam Vital Signs: Last Vital Signs Pulse 89 11/22/23 13:51 BP 120/68 11/22/23 13:51 BMI result Body Mass Index 34.3 Const General: cooperative, healthy appearing, comfortable and no acute distress Orientation/consciousness: patient oriented x3 Neck Neck: Yes normal visual inspection Resp Effort & Inspection: normal respiratory effort Auscultation: clear to auscultation bilaterally, no rales, no rhonchi and no wheezes Cardio Jugular venous distension: no JVD Rate: regular rate Rhythm: regular rhythm Heart sounds: S1 normal heart sound present, S2 normal heart sound present, no murmurs and no rubs Neuro General: patient oriented x3 Extrem General: Yes normal to inspection and No no pedal edema Psych Appearance: grossly normal Mental Status: mental status grossly normal Speech and movement: Normal speech and movement present Assessment & Plan Assessment & Plan (1) Abnormal ECG: Code(s): R94.31 - Abnormal electrocardiogram [ECG] [EKG] Category: Medical Plan: History of abnormal EKG. Previously evaluated for abnormal EKG with sinus rhythm with T-wave inversion as well as some ST depressions laterally. Echocardiogram on 01/18/2022 showing EF 60-65%, normal study. An exercise nuclear stress test was done on 01/22/2022 showing exercise 5 minutes with EKG changes suggestive of ischemia however nuclear imaging was normal. ER evaluation 07/2023 with chest discomfort and was told it was costochondritis. ER evaluation 09/19/2023 for heart palpitations, nausea and vomiting. Troponin was normal. EKG does show sinus tachycardia with septal Q, ST and T-wave a bnormality in the inferior lateral leads suggesting ischemia. She reports random sharp pains in her left chest, no exertional chest discomfort. Cardiac risk factors obesity. Exercise stress echocardiogram done 11/01/2023 with exercise close to 6 minutes with report of 10/10 chest discomfort with EKG changes that meet criteria for ischemia however no echo evidence of ischemia. Test results reviewed with her. 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 Signs and symptoms of angina reviewed. ED care if ever needed for concerning symptoms. Cardiology follow-up in 3-4 months, sooner if needed. (2) Palpitations: Code(s): R00.2 - Palpitations Category: Medical Plan: Report of recent heart palpitations requiring ER evaluation without acute findings. Her EKG that day did show sinus tachycardia. Lab work reviewed and no significant abnormalities. TSH 1.21. She does have a history of anxiety which can contribute. She also was experiencing nausea and vomiting that day. Since then she continues to have intermittent heart palpitations. She tells me her pulse can go fast for no reason. A Holter monitor was done on 11/01/2023 for 7 days showing sinus rhythm with average heart rate 84, 18% of the time heart rate greater than 100, max heart rate 172, occasional PACs and PVCs. She states that when she wore the Holter monitor she did not engage in any exercise. The most she did was walk in the park. It is possible that the heart rate of 172 could have been SVT but it was read as sinus tach. She is greatly bothered by her symptoms. Will trial propranolol 20 mg b.i.d.. Of note she also experiences migraines which propranolol may help with. (3) Chest pain: Code(s): R07.9 - Chest pain, unspecified Category: Medical Qualifiers: Chest pain type: precordial pain Qualified Code(s): R07.2 - Precordial pain Plan: Atypical as above (4) Syncope: Code(s): R55 - Syncope and collapse Category: Medical Qualifiers: Syncope type: unspecified Qualified Code(s): R55 - Syncope and collapse Plan: Syncopal episode approximately 2-3 years ago. No recurrent episodes since that time. Her description of the event is most likely vasovagal. Reviewed the need of good hydration, recognizing symptoms and get in a laying down position if symptoms occurred. Instructed to notify this office if she has any recurrent episode Plan Time spent on chart review, documentation, interview and assessment Medications: New propranolol for heart palpitation 10 mg (1/2 x 20 mg) PO BID 60 tabs 2RF propranolol for heart palpitation ( dose corrected - disregard other script) 20 mg PO BID 30 days 60 tabs 2RF Coding Level of Care Code Est Pt Level 4 (78961) Diagnoses Abnormal ECG R94.31 Palpitations R00.2 Precordial pain R07.2 Chest pain type: precordial pain Syncope, unspecified syncope type R55 Syncope type: unspecified Time Spent (min) 30
[2023-11-22 13:51] VITALS: BP 120/68; PULSE 89; BMI 34.3
== END 2023-11-22 14:43 | disposition home or self-care (01) ==
PROVIDERS: PCP Student in an Organized Health Care Education/Training Program; Visit Provider Nurse Practitioner Family
DX: R94.31 Abnormal electrocardiogram [ECG] [EKG] (principal); R00.2 Palpitations; R07.2 Precordial pain; R55 Syncope and collapse
CPT/HCPCS: 99214

== ENCOUNTER → 2023-11-22 13:45 | Outpatient (BNVA) | payer MEDICAID, SELFPAY | PROVIDERS: PCP Student in an Organized Health Care Education/Training Program; Visit Provider Nurse Practitioner Family | DX: R94.31 Abnormal electrocardiogram [ECG] [EKG] (principal); R00.2 Palpitations; R07.2 Precordial pain; R55 Syncope and collapse | CPT/HCPCS: 99212 ==

== ENCOUNTER 2023-11-26 13:29 | Outpatient (AMB) | payer MEDICAID, SELFPAY ==
[2023-11-26 13:30] VITALS: BP 124/57; PULSE 65; BMI 33.9
--- NOTE | 2023-11-26 13:30 | A.OFFVIS_ITS ---
Vital Signs 3 11/26/23 13:30 Height 4 ft 11 in Weight 168 lb BMI 33.9 BP 124/57 L Blood Pressure Location Rt brachial Position Sitting Pulse 65 Intake Visit Reasons: left breast lump Intake Note: This patient presents for an assessment for a left breast lump. Patient c/o; reports no complaints. Airline Customer Service Agent Required: Yes Airline Customer Service Agent Language: Cosmetologist Name: Rc Information Interpreted: non-clinical & clinical Accompanied by: Other Relationship Allergies Iodinated Contrast Media [IV DYE, IODINE CONTAINING CONTRAST ] Allergy (Intermediate, Verified 11/26/23 13:38) SHORTNESS OF BREATH citalopram [From CELEXA] Allergy (Unknown, Verified 11/26/23 13:38) VOMITTING duloxetine [Cymbalta] Allergy (Unknown, Verified 11/26/23 13:38) unknown morphine [MORPHINE] Allergy (Unknown, Verified 11/26/23 13:38) PALPITATIONS-PT PREFERS NOT TO TAKE tramadol [TRAMADOL] Allergy (Unknown, Verified 11/26/23 13:38) VOMITING Medication List - Last Reconciled 11/26/23 by Dru Ragland MD albuterol sulfate 90 mcg/actuation (Ventolin HFA) 1 inh inhalation QID bisacodyl (Dulcolax (bisacodyl)) 10 mg (2 x 5 mg) PO BEDTIME 30 days tjsayqenvl-wsscrirxliffu-ozop 50-325-40 mg 1 tab PO Q8H PRN dexlansoprazole (Dexilant) 60 mg PO DAILY 30 days diclofenac sodium 1% 4 grams topical BID dicyclomine 10 mg PO TID famotidine 40 mg PO BEDTIME ferrous gluconate 324 mg PO DAILY ibuprofen 400 mg PO Q4-6H PRN nbmszu-oqzrfyfw-fobslhm 24,000-76,000 -120,000 unit (Creon) 1 cap PO TID loratadine (Children's Allergy Relief (loratadine)) 10 mL PO DAILY lorazepam 1 mg PO BEDTIME PRN metoclopramide HCl (Reglan) 5 mg PO QIDACHS mirtazapine 15 mg PO BEDTIME 30 days pregabalin 75 mg PO BID propranolol 20 mg PO BID 30 days simethicone 180 mg PO BID 30 days terconazole 0.8% 1 appful vaginal BEDTIME 3 days HPI Comments Details: 38-year-old female patient presenting for evaluation of a left breast lump noted on recent physical examination. She has a known history of bilateral fibroadenoma and previously underwent bilateral ultrasound-guided core biopsies, the pathology of which revealed fibroadenoma. Subsequent mammogram and ultrasound confirmed the known fibroadenoma which previously were biopsied and have not changed in size over several years. These were regarded as benign and routine follow-up recommended. She denies any pain or other symptoms associated with the fibroadenoma. Family history is significant for a maternal grandmother with breast cancer. Menarche was the age of 13. She is . [facility] Medical History (Updated 11/26/23 @ 14:23 by Dru Ragland MD) Fibroadenoma of both breasts Acute diarrhea Recurrent nephrolithiasis Vitamin D deficiency Obesity History of thyroiditis Fibroadenoma Lipoma Fibromyalgia NURIA positive Hx of lipoma Surgical History History of esophagogastroduodenoscopy (EGD) History of wisdom tooth extraction Family History Father Diabetes Heart attack Asthma Maternal Grandmother Diabetes HTN (hypertension) Parkinson disease Breast cancer Mother Diabetes Family history of diabetes mellitus Sister Asthma Maternal Grandfather Parkinson disease Social History Household Members: Children Housing: Condominium Are you a primary residential caregiver to a significant other at home: No Do you presently have 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) Alcohol intake: never Patient Tobacco Use Status: Never used Tobacco Second Hand Smoke Exposure: Yes (Neighbors) service: No Current occupational status: disabled Sexual orientation: Straight/Heterosexual Gender identity: Female Female Reproductive History Menstrual Age of Menarche: 13 Review of Systems Const All systems reviewed & are unremarkable except as noted in HPI and below Physical Exam Vital Signs: Last Vital Signs Pulse 65 11/26/23 13:30 BP 124/57 L 11/26/23 13:30 BMI result Body Mass Index 33.9 Chest Other: Left breast: No skin change, no nipple retraction, no nipple discharge, palpable breast mass in the 3 o'clock position just lateral to the nipple- areolar complex, mobile within the breast tissue with the rubbery texture suggestive of fibroadenoma, no enlarged lymph nodes. Right breast: No skin change, no nipple retraction, no nipple discharge, palpable breast mass in the 3 o'clock position, mobile within the breast tissue and with the rubbery texture suggestive of a fibroadenoma, no enlarged lymph nodes Chest/axillae images: 2 1. 2. Assessment & Plan Assessment & Plan (1) Fibroadenoma of both breasts: Code(s): D24.1 - Benign neoplasm of right breast; D24.2 - Benign neoplasm of left breast Category: Medical Plan 38-year-old female patient with a known history of bilateral fibroadenoma, biopsy-proven with bilateral palpable breast masses on recent physical examination. Findings are consistent with fibroadenoma in both breasts. Mammogram and ultrasound confirmed stable fibroadenoma in both breasts which have not changed in many years. I discussed surgical excision of the bilateral fibroadenoma especially if the lesions were increasing in size or symptomatic, neither of which are true at this time. I encouraged her to continue self examinations and yearly mammograms. She should follow up as needed. Coding Level of Care Code New Pt Level 4 (09334) Diagnoses Fibroadenoma of both breasts D24.1; D24.2
== END 2023-11-26 13:54 | disposition home or self-care (01) ==
PROVIDERS: PCP Student in an Organized Health Care Education/Training Program; Referring Provider Obstetrics & Gynecology; Supervising Provider Student in an Organized Health Care Education/Training Program; Visit Provider Surgery
DX: D24.1 Benign neoplasm of right breast (principal); D24.2 Benign neoplasm of left breast
CPT/HCPCS: 99204

== ENCOUNTER → 2023-11-26 13:29 | Outpatient (BNVA) | payer MEDICAID, SELFPAY | PROVIDERS: PCP Student in an Organized Health Care Education/Training Program; Referring Provider Obstetrics & Gynecology; Visit Provider Surgery | DX: D24.1 Benign neoplasm of right breast (principal); D24.2 Benign neoplasm of left breast | CPT/HCPCS: 99202 ==

== ENCOUNTER 2024-01-14 14:02 | Outpatient (REF) | payer MEDICAID, SELFPAY ==
--- NOTE | ~2024-01-14 | US_ITS ---
EXAMINATION: US PELVIS CLINICAL INFORMATION: Abnormal uterine bleeding, last menstrual period December 20, 2023, vaginal bleeding. COMPARISON: November 21, 2020 TECHNIQUE: Ultrasound of the pelvis is performed using both transabdominal and transvaginal transducers along with Doppler. Transvaginal imaging is performed due to inadequate visualization transabdominally. Limited visualization due to bowel gas and uterine positioning. FINDINGS: The uterus measures 9.3 x 4.7 x 5.4 cm and is anteverted and retroflexed. Limited visualization due to bowel gas and uterine positioning. There is a 1.2 x 1.2 x 1.4 cm submucosal fibroid. Endometrial thickness is 9 mm. Left ovary measures 3.1 x 2.1 x 1.9 cm, volume 6.5 mL. There is a 0.6 x 0.4 x 0.7 cm hyperechoic lesion within the left ovary. Right ovary measures 4.9 x 1.7 x 2.3 cm, volume 10.0 mL. Multiple right ovarian peripheral follicles. US/US pelvic and transvaginal IMPRESSION: 1. A 1.4 cm submucosal fibroid. 2. Endometrial thickness is 9 mm. 3. A 0.7 cm hyperechoic lesion within the left ovary. Recommend follow-up ultrasound in 6-8 weeks.
== END 2024-01-14 14:03 | disposition home or self-care (01) ==
LOC: HO.US 14:02
PROVIDERS: Visit Provider Obstetrics & Gynecology
DX: N93.9 Abnormal uterine and vaginal bleeding, unspecified (principal)
CPT/HCPCS: 76830; 76856

== ENCOUNTER 2024-01-15 15:00 | Outpatient (AMB) | payer MEDICAID, SELFPAY ==
[2024-01-15 15:02] VITALS: BP 113/64; PULSE 94
--- NOTE | 2024-01-15 15:02 | MHC.OFFVIS ---
Vital Signs 01/15/24 15:02 Height 4 ft 11 in BP 113/64 Blood Pressure Location Rt brachial Position Sitting Pulse 94 Intake Visit Reasons: 8 week follow up Intake Note: Ambika presents to in office today in 8 weeks follow up of IBS. CC: Patient reports that since she was started on Propranol she is doing better from her stomach. 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 Accompanied by: Self / Same As Patient Allergies Iodinated Contrast Media [IV DYE, IODINE CONTAINING CONTRAST ] Allergy (Intermediate, Verified 01/15/24 15:15) SHORTNESS OF BREATH citalopram [From CELEXA] Allergy (Unknown, Verified 01/15/24 15:15) VOMITTING duloxetine [Cymbalta] Allergy (Unknown, Verified 01/15/24 15:15) unknown morphine [MORPHINE] Allergy (Unknown, Verified 01/15/24 15:15) PALPITATIONS-PT PREFERS NOT TO TAKE tramadol [TRAMADOL] Allergy (Unknown, Verified 01/15/24 15:15) VOMITING HPI HPI 8 week follow up: Details: Assessment & Plan (1) Oropharyngeal dysphagia: Code(s): R13.12 - Dysphagia, oropharyngeal phase Category: Medical (2) Irritable bowel syndrome with constipation: Code(s): K58.1 - Irritable bowel syndrome with constipation Category: Medical (3) GERD (gastroesophageal reflux disease): Code(s): K21.9 - Gastro-esophageal reflux disease without esophagitis Category: Medical Qualifiers: Esophagitis presence: esophagitis presence not specified Qualified Code(s): K21.9 - Gastro-esophageal reflux disease without esophagitis (4) Gastroparesis: Code(s): K31.84 - Gastroparesis Category: Medical Plan Qatari #Derik We had tried mitazepine to see if anxiety was driving her sx - she did not take it because she had some nocturnal confusion and wt gain when she took it in the past. She expresses some desire to re try this at the lowest dose, and I will leave that up to her. She received the creon but is not taking it as directed became she thought she had to take it with food, I explain that this is not necessary and she can experiment with taking 2 qam and 1qpm. she did increase how often she is taking the bnetyl and she feels this has been helpful. She has less N/V. She still is having problems with appetite and LINK's. She also notes that her stomach gets very upset when her tachycardia is bad. she says I don't know if its a type of panic attack of something to do with my circulation. She takes fioricet for LINK. She may have a contributing migraine variant. She had a recent stress test and cardiac cath tech that were negative for any severe pathology. She also reports menorrhagia. Recent blood work showed anemia and she was to take iron but she is afraid because iron gives me GERD. I advise her to take it with her largest meal to offset stomach upset etc. She is seeing her doping supervisor about this. For now we will not change the GI regimen, she can try the mirtazepine if she desires, and we will wait and watch. I suggest that a trial of propranolol for both tachycardia and migraine prophylaxis may be prudent. This may also help with her anxiety. 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 ROV 8 weeks. TODAY'S VISIT Qatari #Naima Zuluaga She was started in propranolol by cardiology for tachycardia and with this he stomach problems have improved/resolved, she is now able to sleep at night, and her headaches are improved. It seems she may have had a component of abdominal migraine, and I had suggested propranolol for this but wanted her to check with cardiology first. Her GI regimen now consists of Dexilant, famotidine, simethicone, Creon Reglan 5mg qid and bentl prn only when the pain is very bad. She is now contending with a dental infection. ROV 6 mos COUNT INCLUDES THE [facility] Medical History (Updated 01/15/24 @ 15:05 by ELY Garcia) Left flank pain, chronic Left hip pain Oropharyngeal dysphagia Rectal bleeding Breast lump Nephrolithiasis Vulvovaginitis jaylyn albicans Vulvovaginal candidiasis Myalgia Toe swelling Hives Vulvovaginitis Fibroadenoma of both breasts Acute diarrhea Recurrent nephrolithiasis Vitamin D deficiency Obesity History of thyroiditis Fibroadenoma Lipoma Fibromyalgia NURIA positive Hx of lipoma Surgical History History of esophagogastroduodenoscopy (EGD) History of wisdom tooth extraction Family History Father Diabetes Heart attack Asthma Maternal Grandmother Diabetes HTN (hypertension) Parkinson disease Breast cancer Mother Diabetes Family history of diabetes mellitus Sister Asthma Maternal Grandfather Parkinson disease Social History Household Members: Children Housing: Condominium Are you a primary inspector health care facilities to a significant other at home: No Do you 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) Alcohol intake: never Patient Tobacco Use Status: Never used Tobacco Second Hand Smoke Exposure: Yes (Neighbors) service: No Current occupational status: disabled Sexual orientation: Straight/Heterosexual Gender identity: Female Female Reproductive History Menstrual Age of Menarche: 13 Review of Systems Const Denies fatigue, Denies fever(s), Denies night sweats, Reports poor appetite, Reports weight gain and Denies weight loss ENT Details: dental/gum pain Reports Normal hearing present, Denies dental pain, Denies dysphagia, Denies hearing loss, Denies mouth pain, Denies odynophagia, Denies throat swelling, Denies tongue swelling and Reports other (Dentition adequate) Card Reports no additional complaints Resp Reports no additional complaints GI Details: Denies abdominal pain, Denies melena, Reports bloating, Denies hematochezia, Denies constipation, Denies GI cramping, Denies dysphagia, Denies excessive flatus, Reports early satiety, Reports heartburn, Denies diarrhea, Denies nausea, Denies odynophagia, Denies vomiting and Denies hematemesis Skin/Breast Denies pruritus, Denies lesions, Denies rash and Denies jaundice Neuro Reports Normal hearing present and Denies Abnormal speech present Endo Denies fatigue Aller/Immun Denies throat swelling and Denies tongue swelling Physical Exam Vital Signs: Last Vital Signs Pulse 94 01/15/24 15:02 BP 113/64 01/15/24 15:02 Const General: cooperative, no acute distress, well developed and well groomed Nutritional Appearance: well nourished and obese Orientation/consciousness: oriented to person, oriented to place and oriented to time Limitations: language barrier HEENT Head: Yes normocephalic and Yes atraumatic Eyes General: appearance normal, both eyes and all related structures Pupils: Equal, round and reactive pupils present Neck Neck: Yes normal visual inspection and Yes no lymphadenopathy Thyroid: Thyroid normal Resp Effort & Inspection: normal respiratory effort and able to speak in complete sentences Auscultation: clear to auscultation bilaterally Cardio Rate: regular rate Rhythm: regular rhythm Heart sounds: Normal, physiologic split S2 sound present Peripheral pulses: radial pulses present and posterior tibial pulses present GI Inspection: No distended, No Abdominal panniculus present and Yes obesity Palpation (GI): Soft to palpation, nontender, no guarding, not rigid and No hepatosplenomegaly present Percussion: Yes normal to percussion Auscultation: normal bowel sounds Rectal Exam - Female: deferred Skin General skin exam: no rashes or lesions noted, turgor normal, skin not dry, no jaundice, No spider nevi and no striae Rashes: no rashes Nails: normal Neuro General: oriented to person, oriented to place and oriented to time Cranial nerves: Yes Equal, round and reactive pupils present and Yes Normal hearing present Speech: No Abnormal speech present Extrem General: Yes normal to inspection, No clubbing, No cyanosis and No edema Psych Appearance: grossly normal and well kempt Mental Status: mental status grossly normal Speech and movement: Normal speech and movement present Affect: normal affect Attitude: cooperative Thought process: Normal thought process present and not confabulating Thought content: Normal thought content present Insight: Limited insight present (Psych) Judgement: Limited judgement present (Psych) Assessment & Plan Assessment & Plan (1) GERD (gastroesophageal reflux disease): Code(s): K21.9 - Gastro-esophageal reflux disease without esophagitis Category: Medical Qualifiers: Esophagitis presence: esophagitis presence not specified Qualified Code(s): K21.9 - Gastro-esophageal reflux disease without esophagitis (2) Gastroparesis: Code(s): K31.84 - Gastroparesis Category: Medical (3) Irritable bowel syndrome with constipation: Code(s): K58.1 - Irritable bowel syndrome with constipation Category: Medical Plan Qatari #Naima Live She was started in propranolol by cardiology for tachycardia and with this he stomach problems have improved/resolved, she is now able to sleep at night, and her headaches are improved. It seems she may have had a component of abdominal migraine, and I had suggested propranolol for this but wanted her to check with cardiology first. Her GI regimen now consists of Dexilant, famotidine, simethicone, Creon Reglan 5mg qid and bentl prn only when the pain is very bad. She is now contending with a dental infection. ROV 6 mos Medications: Changed From dicyclomine 10 mg PO TID 90 caps 6RF To dicyclomine 10 mg PO TID PRN 90 caps 6RF abdominal pain Refilled simethicone after meals 180 mg PO BID 60 caps 6RF 30 days dexlansoprazole (Dexilant) 60 mg PO DAILY 90 caps 1RF 30 days sjmuay-rjzkansd-bpjbyjg 24,000-76,000 -120,000 unit (Creon) administer with meals and/or snacks 1 cap PO TID 90 caps 6RF famotidine 40 mg PO BEDTIME 90 tabs 2RF Discontinued bisacodyl (Dulcolax (bisacodyl)) Discontinued Reason: Doctor's Order 10 mg (2 x 5 mg) PO BEDTIME 30 days 60 tabs 6RF mirtazapine Discontinued Reason: Doctor's Order 15 mg PO BEDTIME 30 days 30 tabs 6RF K58.1 - Irritable bowel syndrome with constipation Coding Level of Care Code Est Pt Level 3 (13830) Diagnoses Gastroesophageal reflux disease, unspecified whether esophagitis present K21.9 Esophagitis presence: esophagitis presence not specified Gastroparesis K31.84 Irritable bowel syndrome with constipation K58.1
== END 2024-01-15 15:33 | disposition home or self-care (01) ==
PROVIDERS: PCP Student in an Organized Health Care Education/Training Program; Visit Provider Nurse Practitioner
DX: K21.9 Gastro-esophageal reflux disease without esophagitis (principal); K31.84 Gastroparesis; K58.1 Irritable bowel syndrome with constipation
CPT/HCPCS: 99213

== ENCOUNTER → 2024-01-15 15:00 | Outpatient (BNVA) | payer MEDICAID, SELFPAY | PROVIDERS: PCP Student in an Organized Health Care Education/Training Program; Visit Provider Nurse Practitioner | DX: K58.1 Irritable bowel syndrome with constipation (principal); K21.9 Gastro-esophageal reflux disease without esophagitis; K31.84 Gastroparesis | CPT/HCPCS: 99212 ==

== ENCOUNTER 2024-01-17 14:31 | Outpatient (AMB) | payer MEDICAID, SELFPAY ==
--- NOTE | 2024-01-17 14:38 | MHC.OFFVIS ---
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: No Accompanied by: Unknown Allergies Iodinated Contrast Media [IV DYE, IODINE CONTAINING CONTRAST ] Allergy (Intermediate, Verified 01/17/24 15:18) SHORTNESS OF BREATH citalopram [From CELEXA] Allergy (Unknown, Verified 01/17/24 15:18) VOMITTING duloxetine [Cymbalta] Allergy (Unknown, Verified 01/17/24 15:18) unknown morphine [MORPHINE] Allergy (Unknown, Verified 01/17/24 15:18) PALPITATIONS-PT PREFERS NOT TO TAKE tramadol [TRAMADOL] Allergy (Unknown, Verified 01/17/24 15:18) VOMITING Medication List - Last Reconciled 01/17/24 by NIC Davey- albuterol sulfate 90 mcg/actuation (Ventolin HFA) 1 inh inhalation QID rdebnfzuil-gquxkrvonqctz-shuz 50-325-40 mg 1 tab PO Q8H PRN dexlansoprazole (Dexilant) 60 mg PO DAILY 30 days diclofenac sodium 1% 4 grams topical BID dicyclomine 10 mg PO TID PRN diphenhydramine HCl 25 mg orally Take one capsule the am of Day Before CT scan, Take one capsule the evening of Day Before CT scan and take one capsule the morning of the CT scan; 2 days famotidine 40 mg PO BEDTIME ferrous gluconate 324 mg PO DAILY ibuprofen 400 mg PO Q4-6H PRN meykuy-ismpadba-zcwrknq 24,000-76,000 -120,000 unit (Creon) 1 cap PO TID loratadine (Children's Allergy Relief (loratadine)) 10 mL PO DAILY lorazepam 1 mg PO BEDTIME PRN metoclopramide HCl (Reglan) 5 mg PO QIDACHS prednisone 20 mg orally; Take one tablet the am of Day Before CT scan, Take one tablet the evening of Day Before CT scan and take one tablet the morning of the CT scan; 2 days pregabalin 75 mg PO BID propranolol 20 mg PO BID 30 days simethicone 180 mg PO BID 30 days terconazole 0.8% 1 appful vaginal BEDTIME 3 days HPI Comments Details: Ambika is a pleasant 38-year-old female patient of Dr. Murray. She has a past medical history of vitamin-D deficiency, obesity, thyroiditis, fibroadenoma, lipoma, fibromyalgia, and NURIA positive. She presents to the office today for follow-up of her nephrolithiasis. In discussion with the patient today she does note having had intermittent issues with flank pain left side greater than right. Patient with previous renal imaging 09/07 that notes left renal mid pole 3 mm echogenic focus. Discussed possible intermittent flank pain in relation to nephrolithiasis. She does endorse to be drinking more water daily since her last office visit here approximately 3 months ago. She currently denies any bothersome urinary issues. She denies urinary urgency, urinary frequency, incontinence, nocturia, hematuria, dysuria, foul smelling urine, changes to urinary stream, flank pain, fever, and or chills. She is happy with her current voiding parameters. In office urinalysis results reviewed with the patient today. Discussed and stressed the importance of continuing to drink plenty of water daily. She otherwise offers no other issues or concerns at this time. [facility] Medical History Left flank pain, chronic Left hip pain Oropharyngeal dysphagia Rectal bleeding Breast lump Nephrolithiasis Vulvovaginitis jaylyn albicans Vulvovaginal candidiasis Myalgia Toe swelling Hives Vulvovaginitis Fibroadenoma of both breasts Acute diarrhea Recurrent nephrolithiasis Vitamin D deficiency Obesity History of thyroiditis Fibroadenoma Lipoma Fibromyalgia NURIA positive Hx of lipoma Surgical History History of esophagogastroduodenoscopy (EGD) History of wisdom tooth extraction Family History Father Diabetes Heart attack Asthma Maternal Grandmother Diabetes HTN (hypertension) Parkinson disease Breast cancer Mother Diabetes Family history of diabetes mellitus Sister Asthma Maternal Grandfather Parkinson disease Social History Household Members: Children Housing: Condominium Are you a primary field care coordinator to a significant other at home: No Do you presently 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) Alcohol intake: never Patient Tobacco Use Status: Never used Tobacco Second Hand Smoke Exposure: Yes (Neighbors) service: No Current occupational status: disabled Sexual orientation: Straight/Heterosexual Gender identity: Female Female Reproductive History Menstrual Age of Menarche: 13 Review of Systems Const Reports as per HPI Eyes Reports no additional complaints ENT Reports no additional complaints Card Details: Reports following with Cardiology regarding history of palpitations Reports as per HPI Resp Reports no additional complaints GI Reports as per HPI Reports as per HPI Musc Reports as per HPI Neuro Reports no additional complaints Psych Reports no additional complaints Endo Reports no additional complaints Antonino/Lymph Reports no additional complaints Aller/Immun Reports no additional complaints Physical Exam Const General: cooperative, healthy appearing, comfortable, no acute distress, well developed, alert and awake Nutritional Appearance: overweight Orientation/consciousness: patient oriented x3 Limitations: no limitations HEENT Head: Yes normal to inspection, Yes normocephalic and Yes atraumatic Ears: hearing grossly normal bilaterally Eyes General: appearance normal, both eyes and all related structures Neck Neck: Yes normal visual inspection and Yes trachea midline Chest Chest palpation & inspection: normal inspection of the chest Resp Effort & Inspection: able to speak in complete sentences Cardio Rate: regular rate GI Inspection: Yes normal to inspection General: Yes no CVA tenderness Back/Spine/Pelvis Back: no CVA tenderness Skin General skin exam: no rashes or lesions noted Neuro General: patient oriented x3 Extrem General: Yes normal to inspection Psych Appearance: grossly normal and well kempt Mental Status: mental status grossly normal Speech and movement: Clear speech present Affect: normal affect Attitude: cooperative Thought process: Normal thought process present Thought content: Normal thought content present Insight: Fair insight present (Psych) Judgement: Fair judgement present (Psych) Results AMB Urinalysis, Automated UA Leukoctes 0 Gael/uL Last Edit by Irais Fisher CMA on 01/17/24 14:55 UA Nitrite Negative Last Edit by Irais Fisher CMA on 01/17/24 14:55 UA Urobilinogen 0.2 mg/dL Last Edit by Irais Fisher CMA on 01/17/24 14:55 UA Protein 30 mg/dL Last Edit by Irais Fisher CMA on 01/17/24 14:55 UA pH Last Edit by Irais Fisher CMA on 01/17/24 14:55 UA Blood 10 Constantino/uL Last Edit by Irais Fisher CMA on 01/17/24 14:55 UA Specific [place] 1.030 Last Edit by Irais Fisher CMA on 01/17/24 14:55 UA Ketone Positive Last Edit by Irais Fisher CMA on 01/17/24 14:55 UA Bilirubin 1 mg/dL Last Edit by Irais Fisher CMA on 01/17/24 14:55 UA Glucose 0 mg/dL Last Edit by Irais Fisher CMA on 01/17/24 14:55 Results Reviewed Results Reviewed: Laboratory Last Values Specific [place] (Auto) 1.030 01/17/24 14:53 Urine Protein (Auto) 30 mg/dL 01/17/24 14:53 Glucose (UA)(Auto) 0 mg/dL 01/17/24 14:53 Urine Ketones (Auto) Positive 01/17/24 14:53 Urine Blood (Auto) 10 Constantino/uL 01/17/24 14:53 Urine Nitrite (Auto) Negative 01/17/24 14:53 Urine Bilirubin (Auto) 1 mg/dL 01/17/24 14:53 Urine Urobilinogen (Auto) 0.2 mg/dL 01/17/24 14:53 Leukocyte Esterase (Auto) 0 Gael/uL 01/17/24 14:53 Assessment & Plan Assessment & Plan (1) Recurrent nephrolithiasis: Code(s): N20.0 - Calculus of kidney Category: Medical Plan In office urinalysis results reviewed with the patient today; as noted above. Discussed at length potential intermittent left-sided flank pain related to history of nephrolithiasis. Discussed, educated, and stressed the importance of adequate hydration relation to nephrolithiasis as well as overall health and well-being. Discussed adding 1 oz of lemon juice to water daily. Patient currently denies any bothersome urinary issues. She reports be happy with current voiding parameters. Will obtain renal ultrasound in 3 months. Follow-up in 3 months with imaging to be completed prior; or sooner with any issues, concerns, and or questions. Orders: Orders US renal BI 3 Months N20.0 - Calculus of kidney AMB Urinalysis Automated 01/17/24 Z13.9 - Encounter for screening, unspecified Patient Instructions: The patient had an opportunity to ask questions regarding the treatment plan. All questions were answered. Physical exam, labs, and imaging were discussed and reviewed in detail. As well as risks, benefits, and discussion of treatment choices. No major barriers to understanding were identified. The patient expressed understanding and agreement with the above treatment plan. The patient was made aware they should contact our office by phone for worsening of their current condition, the appearance of new symptoms, or with any questions or concerns. Compliance is encouraged with any medications and follow up testing that is ordered. It is a privilege to be allowed the opportunity to participate in? your urological care.? Again, if you have any questions or concerns If you have any questions or concerns please do not hesitate to contact me. The office is [phone]. This note is constructed using voice recognition software. While every effort has been made to ensure accuracy speeder worker errors may have been included. Yours sincerely, LINUS Davey Coding Level of Care Code Est Pt Level 3 (33575) Diagnoses Recurrent nephrolithiasis N20.0
== END 2024-01-17 15:18 | disposition home or self-care (01) ==
PROVIDERS: PCP Student in an Organized Health Care Education/Training Program; Visit Provider Nurse Practitioner Family
DX: N20.0 Calculus of kidney (principal)
CPT/HCPCS: 99213

== ENCOUNTER → 2024-01-17 14:31 | Outpatient (BNVA) | payer MEDICAID, SELFPAY | PROVIDERS: PCP Student in an Organized Health Care Education/Training Program; Visit Provider Nurse Practitioner Family | DX: N20.0 Calculus of kidney (principal) | CPT/HCPCS: 81003; 99212 ==

== ENCOUNTER 2024-02-20 14:58 | Outpatient (REF) | payer MEDICAID, SELFPAY | END 2024-02-20 14:59 | disposition home or self-care (01) | LOC: HO.LNP 14:58 | PROVIDERS: PCP Student in an Organized Health Care Education/Training Program; Visit Provider Obstetrics & Gynecology | DX: N93.9 Abnormal uterine and vaginal bleeding, unspecified (principal); Z32.02 Encounter for pregnancy test, result negative; N83.9 Noninflammatory disorder of ovary, fallopian tube and broad ligament, unspecified; D25.9 Leiomyoma of uterus, unspecified | CPT/HCPCS: 58100; 81025; 88305; 99212 ==

== ENCOUNTER 2024-02-20 14:58 | Outpatient (AMB) | payer MEDICAID, SELFPAY ==
--- NOTE | 2024-02-20 15:01 | A.OFFVIS_ITS ---
Vital Signs 02/20/24 15:06 Height 4 ft 11 in Weight 176 lb 5.917 oz BMI 35.6 BP 122/80 Intake Visit Reasons: US follow up Molded Goods Controls Operator Required: Yes Molded Goods Controls Operator Language: Foam Dispenser Services: Molded Goods Controls Operator Present (in person) Molded Goods Controls Operator Name: Renee PAZ Information Interpreted: non-clinical & clinical Extractor Operator Helper: Extractor Operator Helper Present (Renee PAZ) Accompanied by: Self / Same As Patient Allergies Iodinated Contrast Media [IV DYE, IODINE CONTAINING CONTRAST ] Allergy (Intermediate, Verified 02/20/24 15:06) SHORTNESS OF BREATH citalopram [From CELEXA] Allergy (Unknown, Verified 02/20/24 15:06) VOMITTING duloxetine [Cymbalta] Allergy (Unknown, Verified 02/20/24 15:06) unknown morphine [MORPHINE] Allergy (Unknown, Verified 02/20/24 15:06) PALPITATIONS-PT PREFERS NOT TO TAKE tramadol [TRAMADOL] Allergy (Unknown, Verified 02/20/24 15:06) VOMITING HPI Comments Details: The patient is presenting for follow-up to discuss the results of her abnormal uterine bleeding workup and options of treatment. The following workup was done.: H&H= 11.4/36.8 TSH, prolactin, hCG, GC and chlamydia were negative. Co testing was done in 11/03 was negative. Mammogram was done in 12/08 was BI-RADS 2 Pelvic ultrasound showed the following: The uterus measures 9.3 x 4.7 x 5.4 cm and is anteverted and retroflexed. Limited visualization due to bowel gas and uterine positioning. There is a 1.2 x 1.2 x 1.4 cm submucosal fibroid. Endometrial thickness is 9 mm. Left ovary measures 3.1 x 2.1 x 1.9 cm, volume 6.5 mL. There is a 0.6 x 0.4 x 0.7 cm hyperechoic lesion within the left ovary. Right ovary measures 4.9 x 1.7 x 2.3 cm, volume 10.0 mL. Multiple right ovarian peripheral follicles. [facility] Medical History (Updated 02/20/24 @ 15:38 by Vicente Mooney MD) Left flank pain, chronic Left hip pain Oropharyngeal dysphagia Rectal bleeding Breast lump Nephrolithiasis Vulvovaginitis jaylyn albicans Vulvovaginal candidiasis Myalgia Toe swelling Hives Vulvovaginitis Fibroadenoma of both breasts Acute diarrhea Recurrent nephrolithiasis Vitamin D deficiency Obesity History of thyroiditis Fibroadenoma Lipoma Fibromyalgia NURIA positive Hx of lipoma Surgical History History of esophagogastroduodenoscopy (EGD) History of wisdom tooth extraction Family History Father Diabetes Heart attack Asthma Maternal Grandmother Diabetes HTN (hypertension) Parkinson disease Breast cancer Mother Diabetes Family history of diabetes mellitus Sister Asthma Maternal Grandfather Parkinson disease Social History Household Members: Children Housing: Condominium Are you a primary outdoor emergency care technician to a significant other at home: No Do you presently have visiting nurse 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 (head of data) Alcohol intake: never Patient Tobacco Use Status: Never used Tobacco Second Hand Smoke Exposure: Yes (Neighbors) service: No Current occupational status: disabled Sexual orientation: Straight/Heterosexual Gender identity: Female Female Reproductive History Menstrual Age of Menarche: 13 Review of Systems Const All systems reviewed & are unremarkable except as noted in HPI and below Reports as per HPI and Reports no additional complaints GI Reports no additional complaints Reports no additional complaints Physical Exam Vital Signs: Last Vital Signs BP 122/80 02/20/24 15:06 BMI result Body Mass Index 35.6 Office Procedures Endometrial Biopsy Details: The patient was counseled regarding the indication and benefits of endometrial sampling to rule out endometrial pathology including not limited to endometrial hyperplasia or endometrial cancer and others; The alternatives (Either do nothing vs. hysteroscopy D&C) & the risks were discussed with the patient including but not limited: pain, uterine perforation, bleeding, infection, possible injury to bladder, bowel, ureter, possible need for blood transfusion with all its possible risks. The patient verbalized understanding all questions answered and signed consent. Urine test done in the office was negative The patient was placed into the dorsal lithotomy position; a speculum was inserted in the vagina. Using aseptic technique for the procedure, the cervix was cleansed with Betadine. The anterior lip of the cervix was grasped with a single tooth tenaculum. The uterus was sounded to 7 cm with a 4 mm Pipelle was used. Tissues samples were obtained and placed in formalin, in a patient labeled container and sent to the pathology department. At the end of the procedure, there was minimal bleeding noted The patient tolerated the procedure well and was discharged in good condition with the following instructions: Nothing in the vagina until the bleeding stops. No sex until the bleeding stops, to call if any of the following occurs: fever (>100.4), flu-like symptoms, abdominal pain, heavy bleeding, four smelling vaginal discharge. The patient was instructed to schedule a Follow up appointment in 2 weeks to discuss pathology results of the biopsy and treatment options. This note was generated with a voice recognition program. Some errors may have been overlooked during the review of this note. Sometimes these errors may affect the content or meaning of a given sentence. 48886-Gxackuuqwpo Biopsy Results AMB Test Urine AMB Test Urine Negative Last Edit by Renee Nielsen CMA on 15:43 Results Reviewed Results Reviewed: Laboratory Last Values Tst Clinic Negative 02/20/24 15:42 Assessment & Plan Assessment & Plan (1) Abnormal uterine bleeding (AUB): Comment: NURIA positive Code(s): N93.9 - Abnormal uterine and vaginal bleeding, unspecified Category: Medical Plan: Discussed with the patient the results of the workup for abnormal uterine bleeding. Recommended to the patient that the next step is an endometrial sampling via hysteroscopy D&C possible polypectomy versus endometrial biopsy to r/o endometrial pathology including hyperplasia or cancer. All the pros and cons risks and benefits of each approach were discussed with the patient, endometrial biopsy being less invasive, office procedure with less sensitivity and inability diagnose a polyp and removal versus hysteroscopy done under anesthesia more invasive more sensitive to endometrial cancer and possibility of diagnosing and endometrial polyp with the possibility of polypectomy. All questions were answered pt verbalized understanding and decided to proceed with endometrial biopsy. EMB done, see procedure note (2) Lesion of ovary: Code(s): N83.9 - Noninflammatory disorder of ovary, fallopian tube and broad ligament, unspecified Category: Medical Plan: Discussed with the patient the finding of hypoechoic lesion of the over by ultrasound. Discussed with the patient the Ultrasound findings, the main limitation of transvaginal ultrasonography alone as a diagnostic tool to distinguish benign from malignant masses relates to its lack of specificity and low positive predictive value for cancer. The differential diagnosis discussed with the patient includes the following but not limited to: benign and malignant gynecological and non-gynecological causes. Discussed with the patient options of treatment including laparoscopy ovarian cystectomy/oophorectomy vs. expectant management with repeat US in repeating pelvic US in 6-12 weeks from previous US. If the ovarian complex cyst is persistent larger and / or more complex looking, will refer to gynecologic Oncology. All pros, cons, risks and benefits of each approach were discussed with the patient including but not limited to a delay in the diagnosis and treatment of ovarian cancer affecting the prognosis; The patient decided to go ahead with expectant management. Instructions given the patient to schedule a 3 months follow-up ultrasound appointment. All questions were answered & the patient verbalized understanding and agreed with the plan. (3) Uterine myoma: Code(s): D25.9 - Leiomyoma of uterus, unspecified Category: Medical Plan: Discussed with the patient the findings on pelvic ultrasound & the risk of myosarcoma; discussed with the patient the options of treatment including expectant management versus hysterectomy; the pros and cons, risks benefits of each approach were discussed with the patient including the fact that in cases of myosarcoma, surgical treatment can lead to early diagnosis and positively affects the prognosis; after further discussion, the patient decided to proceed with expectant management. Will repeat pelvic ultrasound periodically. Instructions given to patient to call in case any of the following occurs: pressure symptoms, abnormal uterine bleeding, pelvic pain; and to schedule a six-months pelvic ultrasound and a follow-up appointment . All questions answered, the patient verbalized understanding and agreed with the plan . Orders: Orders US pelvic and transvaginal 3 Months N83.9 - Noninflammatory disorder of ovary, fallopian tube and broad ligament, unspecified AMB Endometrial Biopsy Today N93.9 - Abnormal uterine and vaginal bleeding, unspecified AMB HCG Urine Test Today Z32.02 - Encounter for test, result negative Coding Level of Care Code Est Pt Level 3 (64778) Procedure Only Diagnoses Abnormal uterine bleeding (AUB) N93.9 Lesion of ovary N83.9 Uterine myoma D25.9 CPT Codes Endometrial Biopsy - CPT: 35282-Iusrbnrgywh Biopsy ([id number])
[2024-02-20 15:06] VITALS: BP 122/80; BMI 35.6
== END 2024-02-20 15:54 | disposition home or self-care (01) ==
PROVIDERS: PCP Student in an Organized Health Care Education/Training Program; Visit Provider Obstetrics & Gynecology
DX: N93.9 Abnormal uterine and vaginal bleeding, unspecified (principal); N83.9 Noninflammatory disorder of ovary, fallopian tube and broad ligament, unspecified; D25.9 Leiomyoma of uterus, unspecified; Z32.02 Encounter for pregnancy test, result negative
CPT/HCPCS: 58100; 99213

== ENCOUNTER 2024-03-05 13:21 | Outpatient (REF) | payer MEDICAID, SELFPAY ==
--- NOTE | ~2024-03-05 | US_ITS ---
EXAMINATION: US SOFT TISSUES BILATERAL UPPER ARMS CLINICAL INFORMATION: Palpable mass bilateral upper arms. COMPARISON: None available. TECHNIQUE: Targeted ultrasound images were obtained by the waterproof coating machine tender of the area of concern as indicated by the patient in the right mid medial biceps and left mid medial bicep regions. Radiologist was not in attendance. Images were later provided for interpretation. FINDINGS: No discrete mass or fluid collection identified in the areas of concern indicated by the patient in the bilateral mid medial bicep regions in the upper arms. US/US extremity nonvascular dey IMPRESSION: 1. No discrete mass or fluid collection identified in the areas of concern indicated by the patient in the bilateral mid and medial bicep regions in the upper arms. 2. Decisions regarding further imaging, treatment or biopsy should be based on the clinical exam, as not all abnormalities are detectable on ultrasound studies. Electronically signed by: Che Oswald MD 03/11/2024 11:41 AM EDT
--- NOTE | ~2024-03-05 | US_ITS ---
EXAMINATION: US ABDOMEN LIMITED CLINICAL INFORMATION: Lump right and left upper trunk. COMPARISON: Ultrasound renal 08/19/2023 and 01/24/2023. X-ray abdomen 01/24/2023. Ultrasound abdomen 08/08/2022. CT abdomen and pelvis 05/29/2019. TECHNIQUE: Real-time imaging of the areas of palpable lumps. FINDINGS: Targeted ultrasound images were obtained by the suede brusher of 2 areas of concern as indicated by the patient in the left lateral mid abdomen. No discrete mass, hernia or fluid collection appreciated. Limited visualization due to bowel gas. Radiologist was not in attendance. Images were later provided for interpretation. US/US abdomen limited IMPRESSION: No discrete mass, hernia or fluid collection appreciated in the areas of concern as indicated by the patient in the left lateral midabdomen. CT scan could be considered for further evaluation. Electronically signed by: Che Oswald MD 03/10/2024 01:41 PM EDT
== END 2024-03-05 13:22 | disposition home or self-care (01) ==
LOC: HO.US 13:21
PROVIDERS: PCP Student in an Organized Health Care Education/Training Program; Visit Provider Emergency Medicine
DX: R22.33 Localized swelling, mass and lump, upper limb, bilateral (principal); R22.2 Localized swelling, mass and lump, trunk
CPT/HCPCS: 76705; 76882

== ENCOUNTER 2024-03-18 13:35 | Outpatient (REF) | payer MEDICAID, SELFPAY ==
[2024-03-18 14:08] LABS: MANUAL DIFF FLAG NO
[2024-03-18 14:48] LABS: Basophils Absolute Auto 0.1 X10*3/uL (0.0-0.2); Basophils Percent Auto 0.7 % (0-2); Eosinophils Absolute Auto 0.1 X10*3/uL (0.0-0.4); Eosinophils Percent Auto 1.4 % (0-4); Hematocrit 36.5 % (37.0-47.0); Hemoglobin 11.5 g/dl (12.0-16.0); Imm Gran Abs Auto 0.05 X10*3/uL (0.00-0.03); Imm Gran Pct Auto 0.5 % (0.0-0.4); Lymphocytes Absolute Auto 2.2 X10*3/uL (1.2-4.9); Lymphocytes Percent Auto 21.7 % (20-40); Mean Corpuscular HGB Conc 31.5 g/dl (31.0-35.0); Mean Corpuscular Hemoglobin 25.2 pg (27.0-33.0); Mean Platelet Volume 11.6 fL (9.4-12.3); Monocytes Absolute Auto 0.7 X10*3/uL (0.1-1.2); Monocytes Percent Auto 6.7 % (2-11); Neutrophils Absolute Auto 7.1 x10*3/uL (2.0-8.3); Platelet Count 317 X10*3/uL (160-400); Red Blood Count 4.56 X10*6/uL (4.20-5.50); Red Cell Distribution Width 14.2 % (11.0-16.0); White Blood Count 10.3 X10*3/uL (4.8-10.8)
[2024-03-18 14:53] LABS: Estimated Average Glucose 111 mg/dL; Hemoglobin A1C 105.9273 umol/L; Hemoglobin A1c % 5.5 % (<6.0); Total Hemoglobin (HGBA1C) 2929.8193 umol/L
[2024-03-18 15:31] LABS: Alanine Aminotransferase 11 U/L (0-31); Albumin Level 4.6 g/dL (3.5-5.0); Alkaline Phosphatase 59 U/L (39-117); Anion Gap 10 (12-20); Aspartate Amino Transferase 12 U/L (5-31); Bilirubin Total 0.4 mg/dL (0.0-1.0); Blood Urea Nitrogen 7 mg/dL (9-16); Calcium 9.5 mg/dL (8.4-10.2); Carbon Dioxide 27 mmol/L (22-29); Chloride 106 mmol/L (96-108); Cholesterol 200 mg/dL (<200); Estimated Glomerular Filt Rate > 60; Glucose Random 101 mg/dL (60-115); HDL Cholesterol 52 mg/dL (>40); Iron 51 mcg/dL (30-160); LDL Cholesterol Calculated 128 mg/dL (<100); Percent Iron Saturation 14 % (15-50); Potassium 3.8 mmol/L (3.3-5.1); Sodium 139 mmol/L (135-145); Total Iron Binding Capacity 373 mcg/dL (228-428); Triglycerides 100 mg/dL (<150); Unsaturated Iron Binding 322 ug/dL
[2024-03-18 15:34] LABS: Ferritin 10 ng/mL (10-122); TSH reflex Free T4 0.35 uIU/mL (0.32-4.0); Vitamin D 25-OH Total 19.9 ng/mL (>30)
[2024-03-19 09:16] LABS: HBS Num1 166.56 mIU/mL (0-7.99); HBc Num1 0.09 S/CO (0.00-0.79); HBsAGNum1 0.38 S/CO (0.00-0.99); HIV AB/AG Nonreactive (Nonreactive); HIV Num 1 0.04 S/CO (0.00-0.99); Hepatitis B Core Antibody Nonreactive (Nonreactive); Hepatitis B Surface Antigen Negative (Negative); ~Hepatitis B Surface Antibody REACTIVE (Nonreactive)
[2024-03-19 13:48] LABS: HCV Log PCR <1.18 NOT DETECTED Log IU/mL (NOT DETECTED); HepC Viral Load <15 NOT DETECTED IU/mL (NOT DETECTED)
[2024-03-20 10:18] LABS: RPR Rapid Plasma Reagin NON-REACTIVE (NON-REACTIVE)
[2024-03-24 12:13] LABS: Anti Nuclear Antibody Screen POSITIVE (NEGATIVE)
== END 2024-03-18 13:36 | disposition home or self-care (01) ==
LOC: HO.LAB 13:35
PROVIDERS: PCP Registered Nurse; Visit Provider Registered Nurse
DX: Z00.00 Encounter for general adult medical examination without abnormal findings (principal); D50.9 Iron deficiency anemia, unspecified; M79.7 Fibromyalgia; R76.8 Other specified abnormal immunological findings in serum; E55.9 Vitamin D deficiency, unspecified
CPT/HCPCS: 36415; 80053; 80061; 82306; 82728; 83036; 83540; 84443; 85025; 86038; 86039; 86592; 86704; 86706; 87340; 87389; 87522

== ENCOUNTER 2024-03-25 14:57 | Outpatient (AMB) | payer MEDICAID, SELFPAY ==
[2024-03-25 14:59] VITALS: BP 100/62; PULSE 84; BMI 35.2
--- NOTE | 2024-03-25 14:59 | MHC.OFFVIS ---
Vital Signs 03/25/24 14:59 Height 4 ft 11 in Weight 174 lb 2.643 oz BMI 35.2 BP 100/62 Blood Pressure Location Lt brachial Position Sitting Pulse 84 Pulse Source Pulse Oximeter Intake Visit Reasons: 4mth f/up Intake Note: 4 mth f/up Spanish Tutor Required: Yes Spanish Tutor Language: Landscape Photographer Name: [id number] Accompanied by: Significant Other Allergies Iodinated Contrast Media [IV DYE, IODINE CONTAINING CONTRAST ] Allergy (Intermediate, Verified 02/20/24 15:06) SHORTNESS OF BREATH citalopram [From CELEXA] Allergy (Unknown, Verified 02/20/24 15:06) VOMITTING duloxetine [Cymbalta] Allergy (Unknown, Verified 02/20/24 15:06) unknown morphine [MORPHINE] Allergy (Unknown, Verified 02/20/24 15:06) PALPITATIONS-PT PREFERS NOT TO TAKE tramadol [TRAMADOL] Allergy (Unknown, Verified 02/20/24 15:06) VOMITING Medication List - Last Reconciled 03/25/24 by Carrillo Estrella MD albuterol sulfate 90 mcg/actuation (Ventolin HFA) 1 inh inhalation QID dexlansoprazole (Dexilant) 60 mg PO DAILY 30 days diclofenac sodium 1% 4 grams topical BID dicyclomine 10 mg PO TID PRN diphenhydramine HCl 25 mg orally Take one capsule the am of Day Before CT scan, Take one capsule the evening of Day Before CT scan and take one capsule the morning of the CT scan; 2 days famotidine 40 mg PO BEDTIME ferrous gluconate 324 mg PO DAILY ibuprofen 400 mg PO Q4-6H PRN srekyv-fpnmmzdo-lrgyosi 24,000-76,000 -120,000 unit (Creon) 1 cap PO TID loratadine (Children's Allergy Relief (loratadine)) 10 mL PO DAILY lorazepam 1 mg PO BEDTIME PRN methocarbamol 750 mg PO QID metoclopramide HCl (Reglan) 5 mg PO QIDACHS nabumetone 750 mg PO BID pregabalin 75 mg PO BID propranolol 20 mg PO BID simethicone 180 mg PO BID 30 days terconazole 0.8% 1 appful vaginal BEDTIME 3 days HPI Comments Details: 39-year-old female who is referred to us for syncope. She is saying that her boyfriend was giving her massage and she started feeling very warm and then passed out. She remembers that 30 minutes later her boyfriend was trying to talk to her and wake her up. She said she saw Neurology and no obvious cause has been found. She has been told that this was not a seizure. She has vertigo and takes meclizine off and on. She also is complaining of some chest discomfort. This is quite atypical and happens at rest and feels like a pressure-like feeling. She also gets it with activities too. Seems fairly anxious and has clearly some anxiety issues too. She was referred for echocardiography which was sent she normal. She also had exercise stress test which did not show any EKG changes or perfusion defect. She is here for follow-up now. She is saying she has not had further syncope. She is complaining that off and on she gets dyspnea and people around her noticed that she is short of breath. She has background of asthma many years ago. She also gets some palpitations and tachycardia when she is doing activities. She also has background of iron-deficiency anemia. 03/11/23: She returns for f/u. She is saying that 2 weeks ago she was not feeling well and tested positive for COVID. She said 5 days later she tested herself again but was negative at that time. Since then she has experienced some chest pains when a 1 episode last night which lasted 15 minutes which she describes like at [place] tightness with shortness of breath. She also had 1 episode this morning. Her ECG in the clinic is abnormal compared to her last ECG from November 2021. She has sinus rhythm with T-wave inversions as well as ST depressions laterally. She is not hypertensive in the clinic and is denying any significant symptoms currently. Seems clearly very anxious too. 03/25/2024 she returns for follow-up. She was seen with translator interpreter but still difficult to understand her symptoms. She gets a twisting sensation in the chest at rest which lasts for few seconds. She has significant anxiety just from her description of symptoms. She also has been getting palpitations but saying that propranolol helped her with that. She has iron-deficiency and is unable to tolerate oral iron tablets. She is borderline anemic but her symptoms are mostly related to fatigue, shortness of breath and palpitations which can be all due to iron-deficiency. Echocardiography has shown normal LV function. A stress echocardiogram did not show any wall motion abnormalities with exercise although she did have some ECG changes during exercise. [facility] Medical History (Updated 03/25/24 @ 15:39 by Carrillo Estrella MD) Palpitations Left flank pain, chronic Left hip pain Oropharyngeal dysphagia Rectal bleeding Breast lump Nephrolithiasis Vulvovaginitis jaylyn albicans Vulvovaginal candidiasis Myalgia Toe swelling Hives Vulvovaginitis Fibroadenoma of both breasts Acute diarrhea Recurrent nephrolithiasis Vitamin D deficiency Obesity History of thyroiditis Fibroadenoma Lipoma Fibromyalgia NURIA positive Hx of lipoma Surgical History History of esophagogastroduodenoscopy (EGD) History of wisdom tooth extraction Family History Father Diabetes Heart attack Asthma Maternal Grandmother Diabetes HTN (hypertension) Parkinson disease Breast cancer Mother Diabetes Family history of diabetes mellitus Sister Asthma Maternal Grandfather Parkinson disease Social History Household Members: Children Housing: Condominium Are you a primary insurance healthcare representative to a significant other at home: No Do you presently have visiting nurse 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 (electric organ assembler and checker) Alcohol intake: never Patient Tobacco Use Status: Never used Tobacco Second Hand Smoke Exposure: Yes (Neighbors) service: No Current occupational status: disabled Sexual orientation: Straight/Heterosexual Gender identity: Female Female Reproductive History Menstrual Age of Menarche: 13 Review of Systems Const Denies chills, Denies fatigue, Denies fever(s), Denies frequent falls, Denies weakness, Denies weight gain and Denies weight loss ENT Denies dizziness Card Denies chest pain, Denies leg edema, Denies lightheadedness, Denies palpitations, Denies dyspnea and Denies dyspnea on exertion Resp Denies cough, Denies dyspnea and Denies dyspnea on exertion GI Denies hematochezia Musc Denies abnormal gait, Denies muscle weakness, Denies numbness, Denies radiating pain into limb and Denies tingling Neuro Denies abnormal gait, Denies dizziness, Denies frequent falls, Denies numbness, Denies tingling and Denies weakness Endo Denies fatigue and Denies palpitations Physical Exam Vital Signs: Last Vital Signs Pulse 84 03/25/24 14:59 BP 100/62 03/25/24 14:59 BMI result Body Mass Index 35.2 GENERAL APPEARANCE: in no acute distress, anxious appearing. NECK: no carotid bruit, no jugular venous distention. SKIN: no suspicious lesions, warm and dry. HEART: no murmurs, regular rate and rhythm. LUNGS: clear to auscultation bilaterally. ABDOMEN: soft, nontender. EXTREMITIES: no edema. PERIPHERAL PULSES: equal. NEUROLOGIC: No gross deficits, AAO X 3 Assessment & Plan Assessment & Plan (1) Palpitations: Code(s): R00.2 - Palpitations Category: Medical (2) Atypical chest pain: Code(s): R07.89 - Other chest pain Category: Medical Plan 39 year female who is here for follow-up. She has background history of abnormal EKG for which she was sent to the emergency department. She was ruled out and eventually had echocardiography followed by stress testing which were both normal. Stress echo did not show any wall motion abnormalities with exercise but did show some ECG changes. Clinically she appears to be quite anxious and has palpitations off and on. She also gets atypical chest pains which are nonexertional mostly. With propranolol she feels her palpitations are better I think we should continue this. She has history of heavy menstrual bleeding and iron-deficiency. She is supposed to be on ferrous gluconate but is unable to tolerate oral iron. I will change her to liquid iron to see if she can tolerate this better. If this does not work then she should be referred to Hematology. I think her symptoms are so diverse that likely reason is some sort of systemic issue like anemia/iron-deficiency. So far no objective evidence of any significant cardiovascular disease. She will see us back in 4 months. Thank you for allowing me to participate in the care of your patient. Please feel free to contact me if you have any questions. Medications: New ferrous sulfate 300 mg (5 mL) PO BID 500 mL 0RF Coding Level of Care Code Est Pt Level 4 (40978) Diagnoses Palpitations R00.2 Atypical chest pain R07.89
== END 2024-03-25 15:36 | disposition home or self-care (01) ==
PROVIDERS: PCP Registered Nurse; Visit Provider Internal Medicine Cardiovascular Disease
DX: R00.2 Palpitations (principal); R07.89 Other chest pain
CPT/HCPCS: 99214

== ENCOUNTER → 2024-03-25 14:57 | Outpatient (BNVA) | payer MEDICAID, SELFPAY | PROVIDERS: PCP Student in an Organized Health Care Education/Training Program; Visit Provider Internal Medicine Cardiovascular Disease | DX: R00.2 Palpitations (principal); R07.89 Other chest pain | CPT/HCPCS: 99212 ==

== ENCOUNTER 2024-03-31 16:00 | Outpatient (REF) | payer MEDICAID, SELFPAY | END 2024-03-31 16:01 | disposition home or self-care (01) | LOC: HO.LNP 16:00 | PROVIDERS: Visit Provider Nurse Practitioner Family | DX: N39.0 Urinary tract infection, site not specified (principal) | CPT/HCPCS: 87086 ==

== ENCOUNTER → 2024-03-31 16:31 | Outpatient (BNV) | payer MEDICAID, SELFPAY | PROVIDERS: PCP Registered Nurse; Visit Provider Nurse Practitioner Family | DX: Z13.9 Encounter for screening, unspecified (principal); N39.0 Urinary tract infection, site not specified | CPT/HCPCS: 81003 ==

== ENCOUNTER 2024-04-07 13:47 | Outpatient (AMB) | payer MEDICAID, SELFPAY ==
[2024-04-07 13:49] VITALS: BP 116/56; PULSE 70; BMI 34.5
--- NOTE | 2024-04-07 13:49 | A.OFFVIS_ITS ---
Vital Signs 04/07/24 13:49 Height 4 ft 11 in Weight 170 lb 10.205 oz BMI 34.5 BP 116/56 L Blood Pressure Location Lt brachial Position Sitting Pulse 70 Intake Visit Reasons: Pt request abd pain, vomiting Intake Note: Patient in office today with c/o abdominal pain and vomiting. CC: Patient c/o abdominal bloating, and vomiting, feeling her belly like she is . She states that she is not eating because she is afraid of nausea and abd bloating. She states that he is going to [place] on 04/18 and she is very nervous about the trip and this have made her symptoms worse. Patient also c/o weakness and having gas trapped in her abdomen. She would like to get ondansetron to help with nausea while on the plane. Api Product Manager Required: Yes Accompanied by: Self / Same As Patient Allergies Iodinated Contrast Media [IV DYE, IODINE CONTAINING CONTRAST ] Allergy (Intermediate, Verified 04/07/24 13:58) SHORTNESS OF BREATH citalopram [From CELEXA] Allergy (Unknown, Verified 04/07/24 13:58) VOMITTING duloxetine [Cymbalta] Allergy (Unknown, Verified 04/07/24 13:58) unknown morphine [MORPHINE] Allergy (Unknown, Verified 04/07/24 13:58) PALPITATIONS-PT PREFERS NOT TO TAKE tramadol [TRAMADOL] Allergy (Unknown, Verified 04/07/24 13:58) VOMITING HPI HPI Pt request abd pain, vomiting: Details: Assessment & Plan (1) GERD (gastroesophageal reflux disease): Code(s): K21.9 - Gastro-esophageal reflux disease without esophagitis Category: Medical Qualifiers: Esophagitis presence: esophagitis presence not specified Qualified Code(s): K21.9 - Gastro-esophageal reflux disease without esophagitis (2) Gastroparesis: Code(s): K31.84 - Gastroparesis Category: Medical (3) Irritable bowel syndrome with constipation: Code(s): K58.1 - Irritable bowel syndrome with constipation Category: Medical Plan [place] [facility] [employer] She was started in propranolol by cardiology for tachycardia and with this he stomach problems have improved/resolved, she is now able to sleep at night, and her headaches are improved. It seems she may have had a component of abdominal migraine, and I had suggested propranolol for this but wanted her to check with cardiology first. Her GI regimen now consists of Dexilant, famotidine, simethicone, Creon Reglan 5mg qid and bentl prn only when the pain is very bad. She is now contending with a dental infection. ROV 6 mos Medications: Changed From dicyclomine 10 mg PO TID 90 caps 6RF To dicyclomine 10 mg PO TID PRN 90 caps 6RF abdominal pain Refilled simethicone after meals 180 mg PO BID 60 caps 6RF 30 days dexlansoprazole (Dexilant) 60 mg PO DAILY 90 caps 1RF 30 days rmjowe-lxhcehnn-pkebkrj 24,000-76,000 -120,000 unit (Creon) administer with meals and/or snacks 1 cap PO TID 90 caps 6RF famotidine 40 mg PO BEDTIME 90 tabs 2RF Discontinued bisacodyl (Dulcolax (bisacodyl)) Discontinued Reason: Doctor's Order 10 mg (2 x 5 mg) PO BEDTIME 30 days 60 tabs 6RF mirtazapine Discontinued Reason: Doctor's Order 15 mg PO BEDTIME 30 days 30 tabs 6RF K58.1 - Irritable bowel syndrome with constipation TODAY'S VISIT [place] [facility]il[place] [employer] Apparently the patient called requesting an appointment for abdominal pain. For the past month she has been having a lot of abd bloating intermittently again. This time it is worse and I feel like I am . It is worse with eating. She is not eating much r/t the sx. No pain, but the bloating is so severe she feels liek her breathing is restricted. She feels like she needs to let out gas but she can't. She is taking simethicone which used to help her, but it is not helping now. She admits to a lot of anxiety and stress that also effects her bowels. She is VERY worried about N/V on the airplane as she is going to [place], so I give her a short supply or zofran. Her sister had similar sx and had to have a sara. 07/2022 did NOT show GS, but may need repeat and HIDA. Her GI regimen now consists of Dexilant, famotidine, simethicone, Creon Reglan 5mg qid and bentl prn only when the pain is very bad. ROV next week, she is also worried about her high cholesterol I don;t even eat! She may just need medication as this may be genetic although she is overweight. She just got an appt with rheum at [facility] for her other multiple concerns that may be something inflammatory. I wonder how much her anxiety really effects her GI sx, as she was much improved initially on her propranolol - but now she is VERY anxious about traveling. She dislikes flying. ROV nex week. [facility] Medical History (Updated 04/07/24 @ 15:59 by ELY Garcia) Ajylyn albicans infection History of thyroiditis Palpitations Left flank pain, chronic Left hip pain Oropharyngeal dysphagia Rectal bleeding Breast lump Nephrolithiasis Vulvovaginitis jaylyn albicans Vulvovaginal candidiasis Myalgia Toe swelling Hives Vulvovaginitis Fibroadenoma of both breasts Acute diarrhea Recurrent nephrolithiasis Vitamin D deficiency Obesity Fibroadenoma Lipoma Fibromyalgia NURIA positive Hx of lipoma Surgical History History of esophagogastroduodenoscopy (EGD) History of wisdom tooth extraction Family History Father Diabetes Heart attack Asthma Maternal Grandmother Diabetes HTN (hypertension) Parkinson disease Breast cancer Mother Diabetes Family history of diabetes mellitus Sister Asthma Maternal Grandfather Parkinson disease Social History Household Members: Children Housing: Condominium Are you a primary rn coronary care unit to a significant other at home: No Do you presently have visiting nurse 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) Alcohol intake: never Patient Tobacco Use Status: Never used Tobacco Second Hand Smoke Exposure: Yes (Neighbors) service: No Current occupational status: disabled Sexual orientation: Straight/Heterosexual Gender identity: Female Female Reproductive History Menstrual Age of Menarche: 13 Review of Systems Const Denies fatigue, Denies fever(s), Denies night sweats, Reports poor appetite and Denies weight loss ENT Reports Normal hearing present, Denies dental pain, Denies dysphagia, Denies hearing loss, Denies mouth pain, Denies odynophagia, Denies throat swelling, Denies tongue swelling and Reports other (Dentition adequate) Card Reports palpitations and Reports dyspnea Resp Reports dyspnea GI Details: Reports abdominal pain, Denies melena, Reports bloating, Denies hematochezia, Denies constipation, Reports GI cramping, Denies dysphagia, Denies excessive flatus, Denies early satiety, Reports heartburn, Denies diarrhea, Denies nausea, Denies odynophagia, Denies vomiting and Denies hematemesis Skin/Breast Denies pruritus, Denies lesions, Denies rash and Denies jaundice Neuro Reports Normal hearing present and Denies Abnormal speech present Psych Reports anxiety and Reports panic attacks Endo Denies fatigue and Reports palpitations Aller/Immun Denies throat swelling and Denies tongue swelling Physical Exam Vital Signs: Last Vital Signs Pulse 70 04/07/24 13:49 BP 116/56 L 04/07/24 13:49 BMI result Body Mass Index 34.5 Const General: cooperative, no acute distress, well developed and well groomed Nutritional Appearance: well nourished and obese Orientation/consciousness: oriented to person, oriented to place and oriented to time Limitations: language barrier HEENT Head: Yes normocephalic and Yes atraumatic Eyes General: appearance normal, both eyes and all related structures Pupils: Equal, round and reactive pupils present Neck Neck: Yes normal visual inspection and Yes no lymphadenopathy Thyroid: Thyroid normal Resp Effort & Inspection: normal respiratory effort and able to speak in complete sentences Auscultation: clear to auscultation bilaterally Cardio Rate: regular rate Rhythm: regular rhythm Heart sounds: Normal, physiologic split S2 sound present Peripheral pulses: radial pulses present and posterior tibial pulses present GI Inspection: Yes distended, Yes Abdominal panniculus present and Yes obesity Palpation (GI): Soft to palpation, nontender, no guarding, not rigid and No hepatosplenomegaly present Percussion: Yes normal to percussion Auscultation: normal bowel sounds Rectal Exam - Female: deferred Skin General skin exam: no rashes or lesions noted, turgor normal, skin not dry, no jaundice, No spider nevi and no striae Rashes: no rashes Nails: normal Neuro General: oriented to person, oriented to place and oriented to time Cranial nerves: Yes Equal, round and reactive pupils present and Yes Normal hearing present Speech: No Abnormal speech present Extrem General: Yes normal to inspection, No clubbing, No cyanosis and No edema Psych Appearance: grossly normal and well kempt Mental Status: mental status grossly normal Speech and movement: Pressured speech present Affect: Anxious affect present Attitude: cooperative Thought process: not confabulating and Racing thoughts present Thought content: Normal thought content present Insight: Limited insight present (Psych) Judgement: Limited judgement present (Psych) Assessment & Plan Assessment & Plan (1) Upper abdominal pain: Code(s): R10.10 - Upper abdominal pain, unspecified Category: Medical (2) Nausea and vomiting: Code(s): R11.2 - Nausea with vomiting, unspecified Category: Medical (3) Abdominal bloating: Code(s): R14.0 - Abdominal distension (gaseous) Category: Medical (4) Irritable bowel syndrome with constipation: Code(s): K58.1 - Irritable bowel syndrome with constipation Category: Medical (5) GERD (gastroesophageal reflux disease): Code(s): K21.9 - Gastro-esophageal reflux disease without esophagitis Category: Medical Qualifiers: Esophagitis presence: esophagitis presence not specified Qualified Code(s): K21.9 - Gastro-esophageal reflux disease without esophagitis (6) Gastroparesis: Code(s): K31.84 - Gastroparesis Category: Medical (7) Small intestinal bacterial overgrowth (SIBO), hydrogen subtype: Code(s): K63.8211 - Small intestinal bacterial overgrowth, hydrogen-subtype Category: Medical (8) Anxiety: Code(s): F41.9 - Anxiety disorder, unspecified Category: Medical Plan [place] [facility]il[place] Live Apparently the patient called requesting an appointment for abdominal pain. For the past month she has been having a lot of abd bloating intermittently again. This time it is worse and I feel like I am . It is worse with eating. She is not eating much r/t the sx. No pain, but the bloating is so severe she feels liek her breathing is restricted. She feels like she needs to let out gas but she can't. She is taking simethicone which used to help her, but it is not helping now. She admits to a lot of anxiety and stress that also effects her bowels. SHe is VERY worried about N/V on the airplane as she is going to [place], so I give her a short supply or zofran. Her sister had similar sx and had to have a sara. 07/2022 did NOT show GS, but may need repeat and HIDA. Her GI regimen now consists of Dexilant, famotidine, simethicone, Creon Reglan 5mg qid and bentl prn only when the pain is very bad. ROV next week, she is also worried about her high cholesterol I don;t even eat! She may just need medication as this may be genetic although she is overweight. She just got an appt with rheum at [facility] for her other multiple concerns that may be something inflammatory. I wonder how much her anxiety really effects her GI sx, as she was much improved initially on her propranolol - but now she is VERY anxious about traveling. She dislikes flying. ROV nex week. Orders: Orders US abdomen complete Today R10.10 - Upper abdominal pain, unspecified Medications: New fpswqj-lzvhtvac-ealnaxt 36,000-114,000- 180,000 unit (Creon) administer with meals and/or snacks 2 caps PO BID 120 caps 6RF K63.8211 - Small intestinal bacterial overgrowth, hydrogen-subtype, R14.0 - Abdominal distension (gaseous) metronidazole 500 mg PO TID 10 days 30 tabs 0RF ondansetron 4 mg PO BID-TID PRN 10 tabs 0RF nausea and vomiting R11.2 - Nausea with vomiting, unspecified fluconazole (Diflucan) 200 mg PO DAILY 3 days 3 tabs 0RF B37.9 - Candidiasis, unspecified Changed From simethicone after meals 180 mg PO BID 30 days 60 caps 6RF To simethicone after meals 180 mg PO QID 30 days 120 caps 6RF Refilled famotidine 40 mg PO BEDTIME 90 tabs 2RF metoclopramide HCl (Reglan) provider aware of possible interaction and is monitoring 5 mg PO QIDACHS 120 tabs 6RF K31.84 - Gastroparesis dexlansoprazole (Dexilant) 60 mg PO DAILY 30 days 90 caps 1RF Discontinued hictpj-jryjgltz-omppetk 24,000-76,000 -120,000 unit (Creon) administer with meals and/or snacks Discontinued Reason: Doctor's Order 1 cap PO TID 90 caps 6RF Coding Level of Care Code Est Pt Level 3 (13600) Complex EM visit Add On G2211 Diagnoses Upper abdominal pain R10.10 Nausea and vomiting R11.2 Abdominal bloating R14.0 Irritable bowel syndrome with constipation K58.1 Gastroesophageal reflux disease, unspecified whether esophagitis present K21.9 Esophagitis presence: esophagitis presence not specified Gastroparesis K31.84 Small intestinal bacterial overgrowth (SIBO), hydrogen subtype K63.8211 Anxiety F41.9
== END 2024-04-07 14:45 | disposition home or self-care (01) ==
PROVIDERS: PCP Registered Nurse; Visit Provider Nurse Practitioner
DX: R10.10 Upper abdominal pain, unspecified (principal); R11.2 Nausea with vomiting, unspecified; R14.0 Abdominal distension (gaseous); K58.1 Irritable bowel syndrome with constipation; K21.9 Gastro-esophageal reflux disease without esophagitis; K31.84 Gastroparesis; K63.8211 Small intestinal bacterial overgrowth, hydrogen-subtype; F41.9 Anxiety disorder, unspecified
CPT/HCPCS: 99213

== ENCOUNTER → 2024-04-07 13:47 | Outpatient (BNVA) | payer MEDICAID, SELFPAY | PROVIDERS: PCP Registered Nurse; Visit Provider Nurse Practitioner | DX: K21.9 Gastro-esophageal reflux disease without esophagitis (principal); K31.84 Gastroparesis; K58.1 Irritable bowel syndrome with constipation; K63.8211 Small intestinal bacterial overgrowth, hydrogen-subtype; R10.10 Upper abdominal pain, unspecified; R11.2 Nausea with vomiting, unspecified; R14.0 Abdominal distension (gaseous); B37.9 Candidiasis, unspecified; F41.9 Anxiety disorder, unspecified | CPT/HCPCS: 99212 ==

== ENCOUNTER 2024-04-14 11:06 | Outpatient (AMB) | payer MEDICAID, SELFPAY ==
[2024-04-14 11:11] VITALS: BP 128/76; BMI 34.3
--- NOTE | 2024-04-14 11:11 | A.OFFVIS_ITS ---
Vital Signs 04/14/24 11:11 Height 4 ft 11 in Weight 170 lb BMI 34.3 BP 128/76 Blood Pressure Location Lt brachial Position Sitting Intake Visit Reasons: EMB result Allergies Iodinated Contrast Media [IV DYE, IODINE CONTAINING CONTRAST ] Allergy (Intermediate, Verified 04/14/24 11:11) SHORTNESS OF BREATH citalopram [From CELEXA] Allergy (Unknown, Verified 04/14/24 11:11) VOMITTING duloxetine [Cymbalta] Allergy (Unknown, Verified 04/14/24 11:11) unknown morphine [MORPHINE] Allergy (Unknown, Verified 04/14/24 11:11) PALPITATIONS-PT PREFERS NOT TO TAKE tramadol [TRAMADOL] Allergy (Unknown, Verified 04/14/24 11:11) VOMITING HPI Comments Details: The patient is presenting for follow-up to discuss the results of her abnormal uterine bleeding workup and options of treatment. The following workup was done.: H&H= 11.4/36.8 TSH, prolactin, hCG, GC and chlamydia were negative. Co testing was done in 11/03 was negative. EMB done showed the following: Endometrium, biopsy: Benign late secretory endometrium; no atypia or carcinoma Mammogram was done in 12/08 was BI-RADS 2 Pelvic ultrasound showed the following: The uterus measures 9.3 x 4.7 x 5.4 cm and is anteverted and retroflexed. Limited visualization due to bowel gas and uterine positioning. There is a 1.2 x 1.2 x 1.4 cm submucosal fibroid. Endometrial thickness is 9 mm. Left ovary measures 3.1 x 2.1 x 1.9 cm, volume 6.5 mL. There is a 0.6 x 0.4 x 0.7 cm hyperechoic lesion within the left ovary. Right ovary measures 4.9 x 1.7 x 2.3 cm, volume 10.0 mL. Multiple right ovarian peripheral follicles. [facility] Medical History Eva albicans infection History of thyroiditis Palpitations Left flank pain, chronic Left hip pain Oropharyngeal dysphagia Rectal bleeding Breast lump Nephrolithiasis Vulvovaginitis eva albicans Vulvovaginal candidiasis Myalgia Toe swelling Hives Vulvovaginitis Fibroadenoma of both breasts Acute diarrhea Recurrent nephrolithiasis Vitamin D deficiency Obesity Fibroadenoma Lipoma Fibromyalgia NURIA positive Hx of lipoma Surgical History History of esophagogastroduodenoscopy (EGD) History of wisdom tooth extraction Family History Father Diabetes Heart attack Asthma Maternal Grandmother Diabetes HTN (hypertension) Parkinson disease Breast cancer Mother Diabetes Family history of diabetes mellitus Sister Asthma Maternal Grandfather Parkinson disease Social History Household Members: Children Housing: [facility] Are you a primary resident care manager rn to a significant other at home: No Do you presently have visiting nurse 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) Alcohol intake: never Patient Tobacco Use Status: Never used Tobacco Second Hand Smoke Exposure: Yes (Neighbors) service: No Current occupational status: disabled Sexual orientation: Straight/Heterosexual Gender identity: Female Female Reproductive History Menstrual Age of Menarche: 13 Review of Systems Const All systems reviewed & are unremarkable except as noted in HPI and below Reports as per HPI and Reports no additional complaints GI Reports no additional complaints Reports no additional complaints Physical Exam Vital Signs: Last Vital Signs BP 128/76 04/14/24 11:11 BMI result Body Mass Index 34.3 Assessment & Plan Assessment & Plan (1) Abnormal uterine bleeding (AUB): Comment: NURIA positive Code(s): N93.9 - Abnormal uterine and vaginal bleeding, unspecified Category: Medical Plan: Discussed with the patient the results of the work up done and options of treatment including Lysteda, BCP's (both increase the risk of thrombosis with in a positive patients) Mirena IUD, endometrial ablation and hysterectomy. All pros, cons, risks and benefits if each option was discussed with the patient and the patient decided to think about it and get back to us. All questions answered the patient verbalized understanding. Coding Level of Care Code Est Pt Level 3 (69410) Diagnoses Abnormal uterine bleeding (AUB) N93.9
== END 2024-04-14 11:33 | disposition home or self-care (01) ==
LOC: HO.HWS 11:06
PROVIDERS: PCP Registered Nurse; Visit Provider Obstetrics & Gynecology
DX: N93.9 Abnormal uterine and vaginal bleeding, unspecified (principal)
CPT/HCPCS: 99213

== ENCOUNTER → 2024-04-14 11:06 | Outpatient (BNVA) | payer MEDICAID, SELFPAY | PROVIDERS: PCP Registered Nurse; Visit Provider Obstetrics & Gynecology | DX: N93.9 Abnormal uterine and vaginal bleeding, unspecified (principal) | CPT/HCPCS: 99212 ==

== ENCOUNTER 2024-04-15 10:24 | Outpatient (REF) | payer MEDICAID, SELFPAY | END 2024-04-15 10:25 | disposition home or self-care (01) | LOC: HO.US 10:24 | PROVIDERS: PCP Registered Nurse; Visit Provider Nurse Practitioner Family | DX: N20.0 Calculus of kidney (principal) | CPT/HCPCS: 76775 ==

== ENCOUNTER 2024-04-17 10:03 | Outpatient (REF) | payer MEDICAID, SELFPAY ==
[2024-04-17 14:45] LABS: CDiff Gene PCR NEGATIVE (Negative)
[2024-04-19 09:20] LABS: Adenovirus F 40/41 Not Detected (Not Detect.); Astrovirus Not Detected (Not Detect.); Campylobacter Not Detected (Not Detect.); Cryptosporidium Not Detected (Not Detect.); Cyclospora cayetanensis Not Detected (Not Detect.); E. coli EAEC Not Detected (Not Detect.); E. coli EPEC Not Detected (Not Detect.); E. coli ETEC Not Detected (Not Detect.); E. coli STEC Not Detected (Not Detect.); Entamoeba histolytica Not Detected (Not Detect.); Giardia lamblia Not Detected (Not Detect.); Plesiomonas shigelloides Not Detected (Not Detect.); Rotavirus A Not Detected (Not Detect.); Salmonella Not Detected (Not Detect.); Sapovirus Not Detected (Not Detect.); Shigella sp./EIEC Not Detected (Not Detect.); Vibrio Not Detected (Not Detect.); Vibrio Cholerae Not Detected (Not Detect.); Yersinia enterocolitica Not Detected (Not Detect.)
[2024-04-22 10:54] LABS: Norovirus Stool PCR NOT DETECTED
[2024-04-25 21:59] LABS: Calprotectin, Fecal 83 mcg/g
== END 2024-04-17 10:04 | disposition home or self-care (01) ==
LOC: HO.LNP 10:03
PROVIDERS: PCP Registered Nurse; Visit Provider Nurse Practitioner
DX: R19.7 Diarrhea, unspecified (principal); R11.2 Nausea with vomiting, unspecified; K31.84 Gastroparesis; K21.9 Gastro-esophageal reflux disease without esophagitis; K63.8211 Small intestinal bacterial overgrowth, hydrogen-subtype; K58.1 Irritable bowel syndrome with constipation; E88.89 Other specified metabolic disorders
CPT/HCPCS: 83993; 87493; 87507; 99212

== ENCOUNTER → 2024-04-17 10:03 | Outpatient (AMB) | payer MEDICAID, SELFPAY ==
[2024-04-17 10:10] VITALS: BP 130/67; PULSE 76; BMI 34.5
--- NOTE | 2024-04-17 10:10 | MHC.OFFVIS ---
Vital Signs 04/17/24 10:10 Height 4 ft 11 in Weight 170 lb 10.205 oz BMI 34.5 BP 130/67 Blood Pressure Location Lt brachial Position Sitting Pulse 76 Intake Visit Reasons: 1 week follow up abd pain Intake Note: Ambika presents in 1 week follow up of abdominal pain. CC: Patient states that she was vomiting before coming to her appointment today. She reports that the abdominal bloating is better and has seen improvement after starting the probiotics. She also c/o diarrhea. Jacquard Fixer Required: Yes Accompanied by: Self / Same As Patient Allergies Iodinated Contrast Media [IV DYE, IODINE CONTAINING CONTRAST ] Allergy (Intermediate, Verified 05/13/24 10:21) SHORTNESS OF BREATH citalopram [From CELEXA] Allergy (Unknown, Verified 05/13/24 10:21) VOMITTING duloxetine [Cymbalta] Allergy (Unknown, Verified 05/13/24 10:21) unknown morphine [MORPHINE] Allergy (Unknown, Verified 05/13/24 10:21) PALPITATIONS-PT PREFERS NOT TO TAKE tramadol [TRAMADOL] Allergy (Unknown, Verified 05/13/24 10:21) VOMITING HPI HPI 1 week follow up abd pain: Details: Assessment & Plan (1) Upper abdominal pain: Code(s): R10.10 - Upper abdominal pain, unspecified Category: Medical (2) Nausea and vomiting: Code(s): R11.2 - Nausea with vomiting, unspecified Category: Medical (3) Abdominal bloating: Code(s): R14.0 - Abdominal distension (gaseous) Category: Medical (4) Irritable bowel syndrome with constipation: Code(s): K58.1 - Irritable bowel syndrome with constipation Category: Medical (5) GERD (gastroesophageal reflux disease): Code(s): K21.9 - Gastro-esophageal reflux disease without esophagitis Category: Medical Qualifiers: Esophagitis presence: esophagitis presence not specified Qualified Code(s): K21.9 - Gastro-esophageal reflux disease without esophagitis (6) Gastroparesis: Code(s): K31.84 - Gastroparesis Category: Medical (7) Small intestinal bacterial overgrowth (SIBO), hydrogen subtype: Code(s): K63.8211 - Small intestinal bacterial overgrowth, hydrogen-subtype Category: Medical (8) Anxiety: Code(s): F41.9 - Anxiety disorder, unspecified Category: Medical Plan [place] [facility]il[facility] Live Apparently the patient called requesting an appointment for abdominal pain. For the past month she has been having a lot of abd bloating intermittently again. This time it is worse and I feel like I am . It is worse with eating. She is not eating much r/t the sx. No pain, but the bloating is so severe she feels like her breathing is restricted. She feels like she needs to let out gas but she can't. She is taking simethicone which used to help her, but it is not helping now. She admits to a lot of anxiety and stress that also effects her bowels. SHe is VERY worried about N/V on the airplane as she is going to [place], so I give her a short supply or zofran. Her sister had similar sx and had to have a sara. 07/2022 did NOT show GS, but may need repeat and HIDA. Her GI regimen now consists of Dexilant, famotidine, simethicone, Creon Reglan 5mg qid and bentl prn only when the pain is very bad. ROV next week, she is also worried about her high cholesterol I don;t even eat! She may just need medication as this may be genetic although she is overweight. She just got an appt with rheum at [facility] for her other multiple concerns that may be something inflammatory. I wonder how much her anxiety really effects her GI sx, as she was much improved initially on her propranolol - but now she is VERY anxious about traveling. She dislikes flying. ROV nex week. Orders: Orders US abdomen complete Today R10.10 - Upper abdominal pain, unspecified Medications: New idvvqh-vhuovnee-ehnotzl 36,000-114,000- 180,000 unit (Creon) administer with meals and/or snacks 2 caps PO BID 120 caps 6RF K63.8211 - Small intestinal bacterial overgrowth, hydrogen-subtype, R14.0 - Abdominal distension (gaseous) metronidazole 500 mg PO TID 10 days 30 tabs 0RF ondansetron 4 mg PO BID-TID PRN 10 tabs 0RF nausea and vomiting R11.2 - Nausea with vomiting, unspecified fluconazole (Diflucan) 200 mg PO DAILY 3 days 3 tabs 0RF B37.9 - Candidiasis, unspecified Changed From simethicone after meals 180 mg PO BID 30 days 60 caps 6RF To simethicone after meals 180 mg PO QID 30 days 120 caps 6RF Refilled famotidine 40 mg PO BEDTIME 90 tabs 2RF metoclopramide HCl (Reglan) provider aware of possible interaction and is monitoring 5 mg PO QIDACHS 120 tabs 6RF K31.84 - Gastroparesis dexlansoprazole (Dexilant) 60 mg PO DAILY 30 days 90 caps 1RF Discontinued tftqrv-mikgfrus-ankiqln 24,000-76,000 -120,000 unit (Creon) administer with meals and/or snacks Discontinued Reason: Doctor's Order 1 cap PO TID 90 caps 6RF US OF ABDOMEN 03/10/24 FINDINGS: Targeted ultrasound images were obtained by the cotton broker of 2 areas of concern as indicated by the patient in the left lateral mid abdomen. No discrete mass, hernia or fluid collection appreciated. Limited visualization due to bowel gas. Radiologist was not in attendance. Images were later provided for interpretation. US/US abdomen limited IMPRESSION: No discrete mass, hernia or fluid collection appreciated in the areas of concern as indicated by the patient in the left lateral midabdomen. CT scan could be considered for further evaluation. TODAY'S VISIT [place] [facility] She continues to have fear to eat r/t abd pain, she is only eating soup. She felt a little better after the flagyl and starting taking a probiotic. This also solved her perceived problem with her urine that she described as a metal smell. ? possible BV. She never received the Creon. We still have the US pending that I ordered but the one from 02/2024 showed a great deal of bowel gas. She had to buy OTC simethicone as the insurance is not covering it. Her GI regimen now consists of Dexilant, famotidine, simethicone, Creon Reglan 5mg qid and bentl prn. She has a lower dose creon at home, but she was not taking it regularly r/t not eating as she did not understand she should take it scheduled. She has had SOME relief with bentyl and I advise her to not to be afraid to use this!! Ok to to take scheduled. 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 [facility] Medical History (Reviewed 05/13/24 @ 10:40 by Brigid Guy [facility]) Jaylyn albicans infection History of thyroiditis Palpitations Left flank pain, chronic Left hip pain Oropharyngeal dysphagia Rectal bleeding Breast lump Nephrolithiasis Vulvovaginitis jaylyn albicans Vulvovaginal candidiasis Myalgia Toe swelling Hives Vulvovaginitis Fibroadenoma of both breasts Acute diarrhea Recurrent nephrolithiasis Vitamin D deficiency Obesity Fibroadenoma Lipoma Fibromyalgia NURIA positive Hx of lipoma Surgical History History of esophagogastroduodenoscopy (EGD) History of wisdom tooth extraction Family History Father Diabetes Heart attack Asthma Maternal Grandmother Diabetes HTN (hypertension) Parkinson disease Breast cancer Mother Diabetes Family history of diabetes mellitus Sister Asthma Maternal Grandfather Parkinson disease Social History Household Members: Children Housing: Condominium Are you a primary healthcare insurance sales agent to a significant other at home: No Do you presently have visiting nurse 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 (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 financial representative) Alcohol intake: never Patient Tobacco Use Status: Never used Tobacco Second Hand Smoke Exposure: Yes (Neighbors) service: No Current occupational status: disabled Sexual orientation: Straight/Heterosexual Gender identity: Female Female Reproductive History Menstrual Age of Menarche: 13 Review of Systems Const Denies fatigue, Denies fever(s), Denies night sweats, Reports poor appetite and Denies weight loss ENT Reports Normal hearing present, Denies dental pain, Denies dysphagia, Denies hearing loss, Denies mouth pain, Denies odynophagia, Denies throat swelling, Denies tongue swelling and Reports other (Dentition adequate) Card Reports no additional complaints Resp Reports no additional complaints GI Details: Reports abdominal pain, Denies melena, Reports bloating, Denies hematochezia, Denies constipation, Denies GI cramping, Denies dysphagia, Reports excessive flatus, Denies early satiety, Reports heartburn, Reports diarrhea, Reports nausea, Denies odynophagia, Reports vomiting and Denies hematemesis Musc Reports back pain and Reports myalgias Skin/Breast Denies pruritus, Denies lesions, Denies rash and Denies jaundice Neuro Reports Normal hearing present and Denies Abnormal speech present Psych Reports anxiety Endo Denies fatigue Aller/Immun Denies throat swelling and Denies tongue swelling Physical Exam Vital Signs: Last Vital Signs Pulse 76 04/17/24 10:10 BP 130/67 04/17/24 10:10 BMI result Body Mass Index 34.5 Const General: cooperative, no acute distress, well developed and well groomed Nutritional Appearance: well nourished and obese Orientation/consciousness: oriented to person, oriented to place and oriented to time Limitations: language barrier HEENT Head: Yes normocephalic and Yes atraumatic Eyes General: appearance normal, both eyes and all related structures Pupils: Equal, round and reactive pupils present Neck Neck: Yes normal visual inspection and Yes no lymphadenopathy Thyroid: Thyroid normal Resp Effort & Inspection: normal respiratory effort and able to speak in complete sentences Auscultation: clear to auscultation bilaterally Cardio Rate: regular rate Rhythm: regular rhythm Heart sounds: Normal, physiologic split S2 sound present Peripheral pulses: radial pulses present and posterior tibial pulses present GI Inspection: No distended, No Abdominal panniculus present and Yes obesity Palpation (GI): Soft to palpation, nontender, no guarding, not rigid and No hepatosplenomegaly present Percussion: Yes normal to percussion Auscultation: normal bowel sounds Rectal Exam - Female: deferred Skin General skin exam: no rashes or lesions noted, turgor normal, skin not dry, no jaundice, No spider nevi and no striae Rashes: no rashes Nails: normal Neuro General: oriented to person, oriented to place and oriented to time Cranial nerves: Yes Equal, round and reactive pupils present and Yes Normal hearing present Speech: No Abnormal speech present Extrem General: Yes normal to inspection, No clubbing, No cyanosis and No edema Psych Appearance: grossly normal and well kempt Mental Status: mental status grossly normal Speech and movement: Normal speech and movement present Affect: normal affect Attitude: cooperative Thought process: Normal thought process present and not confabulating Thought content: Normal thought content present Insight: Limited insight present (Psych) Judgement: Limited judgement present (Psych) Assessment & Plan Assessment & Plan (1) Diarrhea: Code(s): R19.7 - Diarrhea, unspecified Category: Medical (2) Nausea and vomiting: Code(s): R11.2 - Nausea with vomiting, unspecified Category: Medical (3) Gastroparesis: Code(s): K31.84 - Gastroparesis Category: Medical (4) GERD (gastroesophageal reflux disease): Code(s): K21.9 - Gastro-esophageal reflux disease without esophagitis Category: Medical Qualifiers: Esophagitis presence: esophagitis presence not specified Qualified Code(s): K21.9 - Gastro-esophageal reflux disease without esophagitis (5) Small intestinal bacterial overgrowth (SIBO), hydrogen subtype: Code(s): K63.8211 - Small intestinal bacterial overgrowth, hydrogen-subtype Category: Medical (6) Irritable bowel syndrome with constipation: Code(s): K58.1 - Irritable bowel syndrome with constipation Category: Medical (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 The clinical course is slowly progressive. Associated disorders include (among others) chronic liver disease, metabolic syndrome, dyslipidemia, hypertension, peripheral neuropathy, and diabetes [44]. Code(s): E88.89 - Other specified metabolic disorders Category: Medical Plan [place] [facility]a Live She continues to have fear to eat r/t abd pain, she is only eating soup. She felt a little better after the flagyl and starting taking a probiotic. This also solved her perceived problem with her urine that she described as a metal smell. ? possible BV. She never received the Creon. We still have the US pending that I ordered but the one from 02/2024 showed a great deal of bowel gas. She had to buy OTC simethicone as the insurance is not covering it. Her GI regimen now consists of Dexilant, famotidine, simethicone, Creon Reglan 5mg qid and bentl prn. She has a lower dose creon at home, but she was not taking it regularly r/t not eating as she did not understand she should take it scheduled. She has had SOME relief with bentyl and I advise her to not to be afraid to use this!! Ok to to take scheduled. 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 Orders: Orders Transglutaminase IgA 04/17/24 R19.7 - Diarrhea, unspecified C Reactive Protein 04/17/24 R19.7 - Diarrhea, unspecified Calprotectin, Fecal 04/17/24 R19.7 - Diarrhea, unspecified GI Panel 04/17/24 R19.7 - Diarrhea, unspecified Rast Allergen 04/17/24 R19.7 - Diarrhea, unspecified Transglutaminase Ab IgG 04/17/24 R19.7 - Diarrhea, unspecified CDiff Gene PCR 04/17/24 R19.7 - Diarrhea, unspecified Coding Level of Care Code Est Pt Level 3 (66082) Diagnoses Diarrhea R19.7 Nausea and vomiting R11.2 Gastroparesis K31.84 Gastroesophageal reflux disease, unspecified whether esophagitis present K21.9 Esophagitis presence: esophagitis presence not specified Small intestinal bacterial overgrowth (SIBO), hydrogen subtype K63.8211 Irritable bowel syndrome with constipation K58.1 Madelung's disease E88.89
== END ==
LOC: HO.HGI 10:04
PROVIDERS: PCP Registered Nurse; Visit Provider Nurse Practitioner
DX: R19.7 Diarrhea, unspecified (principal); R11.2 Nausea with vomiting, unspecified; K31.84 Gastroparesis; K21.9 Gastro-esophageal reflux disease without esophagitis; K63.8211 Small intestinal bacterial overgrowth, hydrogen-subtype; K58.1 Irritable bowel syndrome with constipation; E88.89 Other specified metabolic disorders
CPT/HCPCS: 99213

== ENCOUNTER 2024-04-30 08:10 | Outpatient (REF) | payer MEDICAID, SELFPAY | END 2024-04-30 08:11 | disposition home or self-care (01) | LOC: HO.US 08:10 | PROVIDERS: PCP Registered Nurse; Visit Provider Nurse Practitioner | DX: R10.10 Upper abdominal pain, unspecified (principal) | CPT/HCPCS: 76700 ==

== ENCOUNTER 2024-05-13 07:49 | Outpatient (AMB) | payer MEDICAID, SELFPAY ==
--- NOTE | 2024-05-13 07:53 | A.OFFVIS_ITS ---
Intake Visit Reasons: 3m/US(set) Intake Note: Patient presents today for follow up on: Nephrolithiasis and ultrasound results Imaging Completed: 04/15/24 Urology Medication:None Blood thinner: none Director Of Partner Marketing Required: No Accompanied by: Unknown Allergies Iodinated Contrast Media [IV DYE, IODINE CONTAINING CONTRAST ] Allergy (Intermediate, Verified 05/13/24 10:21) SHORTNESS OF BREATH citalopram [From CELEXA] Allergy (Unknown, Verified 05/13/24 10:21) VOMITTING duloxetine [Cymbalta] Allergy (Unknown, Verified 05/13/24 10:21) unknown morphine [MORPHINE] Allergy (Unknown, Verified 05/13/24 10:21) PALPITATIONS-PT PREFERS NOT TO TAKE tramadol [TRAMADOL] Allergy (Unknown, Verified 05/13/24 10:21) VOMITING Medication List - Last Reconciled 05/13/24 by NIC Davey- albuterol sulfate 90 mcg/actuation (Ventolin HFA) 1 inh inhalation QID azelastine 1 spray intranasal BID PRN cholecalciferol (vitamin D3) 25 mcg PO DAILY dexlansoprazole (Dexilant) 60 mg PO DAILY 30 days diclofenac sodium 1% 4 grams topical BID dicyclomine 10 mg PO TID PRN diphenhydramine HCl 25 mg orally Take one capsule the am of Day Before CT scan, Take one capsule the evening of Day Before CT scan and take one capsule the morning of the CT scan; 2 days famotidine 40 mg PO BEDTIME ferrous sulfate 300 mg (5 mL) PO BID fexofenadine 180 mg PO DAILY ibuprofen 400 mg PO Q4-6H PRN [id number] 36,000-114,000- 180,000 unit (Creon) 2 caps PO BID loratadine (Children's Allergy Relief (loratadine)) 10 mL PO DAILY lorazepam 1 mg PO BEDTIME PRN methocarbamol 750 mg PO QID metoclopramide HCl (Reglan) 5 mg PO QIDACHS nabumetone 750 mg PO BID ondansetron 4 mg PO BID-TID PRN pregabalin 75 mg PO BID propranolol 20 mg PO BID simethicone 180 mg PO QID 30 days HPI Comments Details: Ambika is a pleasant 39-year-old female patient of Dr. Murray who was accompanied by her significant other at today's office visit. She has a past medical history of vitamin-D deficiency, obesity, thyroiditis, fibroadenoma, lipoma, fibromyalgia, and NURIA positive. She presents to the office today for follow-up of her nephrolithiasis. Recent renal imaging results reviewed with the patient today..... She reports since her last office visit here approximately 3 months ago she has been having issues with nausea, vomiting, and abnormal menses and has been following up with GI and gynecology for these issues. She reports being prescribed Flagyl by Gastroenterology and felt after completion of antibiotic therapy metallic smelling urine she had been experiencing had subsided. She does continue to report ongoing generalized pain throughout her entire body. She discusses her upcoming appointment in [place] with her hydroelectric systems technician. We discussed increase in stone burden over the last 6 months. When asked she denies to be drinking plenty of water daily as she feels anything more than 16- 24 oz gives her an upset stomach. She currently denies any UTI like symptoms. She denies urinary frequency, incontinence, nocturia, hematuria, dysuria, foul smelling urine, changes to urinary stream, flank pain, fever, and or chills. She does report episodes of urinary urgency however does not find these bothe rsome at this time. She is happy with her current voiding parameters. In office urinalysis results reviewed with the patient today. Discussed and stressed the importance of continuing to drink plenty of water daily. We discussed adding 1 oz of lemon juice to water daily. We discussed further metabolic workup to include 24 hour urine collection however patient declines at this time. She otherwise offers no other issues or concerns at this time. [facility]LY [facility] Medical History Jaylyn albicans infection History of thyroiditis Palpitations Left flank pain, chronic Left hip pain Oropharyngeal dysphagia Rectal bleeding Breast lump Nephrolithiasis Vulvovaginitis jayyln albicans Vulvovaginal candidiasis Myalgia Toe swelling Hives Vulvovaginitis Fibroadenoma of both breasts Acute diarrhea Recurrent nephrolithiasis Vitamin D deficiency Obesity Fibroadenoma Lipoma Fibromyalgia NURIA positive Hx of lipoma Surgical History History of esophagogastroduodenoscopy (EGD) History of wisdom tooth extraction Family History Father Diabetes Heart attack Asthma Maternal Grandmother Diabetes HTN (hypertension) Parkinson disease Breast cancer Mother Diabetes Family history of diabetes mellitus Sister Asthma Maternal Grandfather Parkinson disease Social History Household Members: Children Housing: Condominium Are you a primary managed care specialist to a significant other at home: No Do you presently have visiting nurse 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 (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) Alcohol intake: never Patient Tobacco Use Status: Never used Tobacco Second Hand Smoke Exposure: Yes (Neighbors) service: No Current occupational status: disabled Sexual orientation: Straight/Heterosexual Gender identity: Female Female Reproductive History Menstrual Age of Menarche: 13 Review of Systems Const Reports as per HPI Eyes Reports no additional complaints ENT Reports no additional complaints Card Details: Reports following with Cardiology regarding history of palpitations Reports as per HPI Resp Reports no additional complaints GI Reports as per HPI Reports as per HPI Musc Reports as per HPI Neuro Reports no additional complaints Psych Reports no additional complaints Endo Reports no additional complaints Antonino/Lymph Reports no additional complaints Aller/Immun Reports no additional complaints Physical Exam Const General: cooperative, healthy appearing, comfortable, no acute distress, well developed, alert and awake Nutritional Appearance: overweight Orientation/consciousness: patient oriented x3 Limitations: no limitations HEENT Head: Yes normal to inspection, Yes normocephalic and Yes atraumatic Ears: hearing grossly normal bilaterally Eyes General: appearance normal, both eyes and all related structures Neck Neck: Yes normal visual inspection and Yes trachea midline Chest Chest palpation & inspection: normal inspection of the chest Resp Effort & Inspection: able to speak in complete sentences Cardio Rate: regular rate GI Inspection: Yes normal to inspection General: Yes no CVA tenderness Back/Spine/Pelvis Back: no CVA tenderness Skin General skin exam: no rashes or lesions noted Neuro General: patient oriented x3 Extrem General: Yes normal to inspection Psych Appearance: grossly normal and well kempt Mental Status: mental status grossly normal Speech and movement: Clear speech present Affect: normal affect Attitude: cooperative Thought process: Normal thought process present Thought content: Normal thought content present Insight: Fair insight present (Psych) Judgement: Fair judgement present (Psych) Results AMB Urinalysis, Automated UA Leukoctes 70 Gael/uL Last Edit by Sravani Garza on 05/13/24 08:04 UA Nitrite Last Edit by [employer] Garza on 05/13/24 08:04 UA Urobilinogen 0.2 mg/dL Last Edit by [employer] Accoloelana on 05/13/24 08:04 UA Protein 15 mg/dL Last Edit by [employer] on 05/13/24 08:04 UA pH 7.5 Last Edit by Sravani Garza on 05/13/24 08:04 UA Blood 0 Constantino/uL Last Edit by [employer] Garza on 05/13/24 08:04 UA Specific [place] 1.015 Last Edit by [employer] Garza on 05/13/24 08:04 UA Ketone Last Edit by [employer] Accoloelana on 05/13/24 08:04 UA Bilirubin 0 mg/dL Last Edit by [employer] on 05/13/24 08:04 UA Glucose 0 mg/dL Last Edit by [employer] on 05/13/24 08:04 Results Reviewed Results Reviewed: Laboratory Last Values Urine pH (Auto) 7.5 05/13/24 07:58 Specific [place] (Auto) 1.015 05/13/24 07:58 Urine Protein (Auto) 15 mg/dL 05/13/24 07:58 Glucose (UA)(Auto) 0 mg/dL 05/13/24 07:58 Urine Blood (Auto) 0 Constantino/uL 05/13/24 07:58 Urine Bilirubin (Auto) 0 mg/dL 05/13/24 07:58 Urine Urobilinogen (Auto) 0.2 mg/dL 05/13/24 07:58 Leukocyte Esterase (Auto) 70 Gael/uL 05/13/24 07:58 Assessment & Plan Assessment & Plan (1) Recurrent nephrolithiasis: Code(s): N20.0 - Calculus of kidney Category: Medical Plan In office urinalysis results reviewed with the patient today; as noted above. Recent renal imaging results reviewed with the patient today; as noted above. She currently denies any bothersome urinary issues. She reports to be happy with current voiding parameters. We discussed increase in stone burden and obtaining further metabolic workup however patient declines at this time. Will continue with surveillance monitoring of nephrolithiasis. Discussed, educated, and stressed the importance of adequate hydration relation to nephrolithiasis as well as overall health and well-being. Discussed adding 1 oz of lemon juice to water daily. Follow-up in 3 months; or sooner with any issues, concerns, and or questions Orders: Orders AMB Urinalysis Automated Today Z13.9 - Encounter for screening, unspecified Patient Instructions: The patient had an opportunity to ask questions regarding the treatment plan. All questions were answered. Physical exam, labs, and imaging were discussed and reviewed in detail. As well as risks, benefits, and discussion of treatment choices. No major barriers to understanding were identified. The patient expressed understanding and agreement with the above treatment plan. The patient was made aware they should contact our office by phone for worsening of their current condition, the appearance of new symptoms, or with any questions or concerns. Compliance is encouraged with any medications and follow up testing that is ordered. It is a privilege to be allowed the opportunity to participate in? your urological care.? Again, if you have any questions or concerns If you have any questions or concerns please do not hesitate to contact me. The office is [phone]. This note is constructed using voice recognition software. While every effort has been made to ensure accuracy medical transcription errors may have been included. Yours sincerely, LINUS Davey Coding Level of Care Code Est Pt Level 3 (41367) Complex EM visit Add On G2211 Diagnoses Recurrent nephrolithiasis N20.0
== END 2024-05-13 08:36 | disposition home or self-care (01) ==
PROVIDERS: PCP Student in an Organized Health Care Education/Training Program; Visit Provider Nurse Practitioner Family
DX: Z13.9 Encounter for screening, unspecified (principal)

== ENCOUNTER → 2024-05-13 07:49 | Outpatient (BNVA) | payer MEDICAID, SELFPAY | PROVIDERS: PCP Student in an Organized Health Care Education/Training Program; Visit Provider Nurse Practitioner Family | DX: N20.0 Calculus of kidney (principal) | CPT/HCPCS: 81003; 99212 ==

== ENCOUNTER 2024-05-18 15:26 | Outpatient (REF) | payer MEDICAID, SELFPAY | END 2024-05-18 15:27 | disposition home or self-care (01) | LOC: HO.US 15:26 | PROVIDERS: PCP Registered Nurse; Visit Provider Obstetrics & Gynecology | DX: N83.9 Noninflammatory disorder of ovary, fallopian tube and broad ligament, unspecified (principal) | CPT/HCPCS: 76830; 76856 ==

== ENCOUNTER 2024-06-26 13:41 | Outpatient (AMB) | payer MEDICAID, SELFPAY ==
--- NOTE | 2024-06-26 13:46 | A.OFFVIS_ITS ---
Vital Signs 06/26/24 14:05 Height 4 ft 11 in Weight 164 lb BMI 33.1 BP 108/53 L Blood Pressure Location Lt brachial Position Sitting Pulse 94 Intake Visit Reasons: N/V/D abd pain 3 wks Intake Note: Patient follow up for Abdominal pain, N/V. Patient cc: N/V on and off, abdominal pain/bloating come and go, gassy, constipation and some swallowing discomfort. Denies any other GI issues for today visit. Foam Fabricator Required: Yes Foam Fabricator Name: [facility] Interpeter Accompanied by: Self / Same As Patient Allergies Iodinated Contrast Media [IV DYE, IODINE CONTAINING CONTRAST ] Allergy (Intermediate, Verified 06/26/24 14:01) SHORTNESS OF BREATH citalopram [From CELEXA] Allergy (Unknown, Verified 06/26/24 14:01) VOMITTING duloxetine [Cymbalta] Allergy (Unknown, Verified 06/26/24 14:01) unknown morphine [MORPHINE] Allergy (Unknown, Verified 06/26/24 14:01) PALPITATIONS-PT PREFERS NOT TO TAKE tramadol [TRAMADOL] Allergy (Unknown, Verified 06/26/24 14:01) VOMITING HPI HPI N/V/D abd pain 3 wks: Details: Assessment & Plan (1) Diarrhea: Code(s): R19.7 - Diarrhea, unspecified Category: Medical (2) Nausea and vomiting: Code(s): R11.2 - Nausea with vomiting, unspecified Category: Medical (3) Gastroparesis: Code(s): K31.84 - Gastroparesis Category: Medical (4) GERD (gastroesophageal reflux disease): Code(s): K21.9 - Gastro-esophageal reflux disease without esophagitis Category: Medical Qualifiers: Esophagitis presence: esophagitis presence not specified Qualified Code(s): K21.9 - Gastro-esophageal reflux disease without esophagitis (5) Small intestinal bacterial overgrowth (SIBO), hydrogen subtype: Code(s): K63.8211 - Small intestinal bacterial overgrowth, hydrogen-subtype Category: Medical (6) Irritable bowel syndrome with constipation: Code(s): K58.1 - Irritable bowel syndrome with constipation Category: Medical (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 The clinical course is slowly progressive. Associated disorders include (among others) chronic liver disease, metabolic syndrome, dyslipidemia, hypertension, peripheral neuropathy, and diabetes [44]. Code(s): E88.89 - Other specified metabolic disorders Category: Medical Plan Bulgarian #Naima Live She continues to have fear to eat r/t abd pain, she is only eating soup. She felt a little better after the flagyl and starting taking a probiotic. This also solved her perceived problem with her urine that she described as a metal smell. ? possible BV. She never received the Creon. We still have the US pending that I ordered but the one from 02/2024 showed a great deal of bowel gas. She had to buy OTC simethicone as the insurance is not covering it. Her GI regimen now consists of Dexilant, famotidine, simethicone, Creon Reglan 5mg qid and bentl prn. She has a lower dose creon at home, but she was not taking it regularly r/t not eating as she did not understand she should take it scheduled. She has had SOME relief with bentyl and I advise her to not to be afraid to use this!! Ok to to take scheduled. 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 Orders: Orders Transglutaminase IgA 04/17/24 R1.7 - Diarrhea, unspecified C Reactive Protein 04/17/24 R1.7 - Diarrhea, unspecified Calprotectin, Fecal 04/17/24 R1.7 - Diarrhea, unspecified GI Panel 04/17/24 R1.7 - Diarrhea, unspecified Rast Allergen 04/17/24 R1.7 - Diarrhea, unspecified Transglutaminase Ab IgG 04/17/24 R1.7 - Diarrhea, unspecified CDiff Gene PCR 04/17/24 R1.7 - Diarrhea, unspecified Labs: Laboratory Tests 04/17/24 12:06 Stool Calprotectin 83 C. difficile Tox B Gene NEGATIVE 04/17/24-[address] [facility] [address]: Petra Wiley [facility] ORDERED: GI Panel Test Result Flag Reference Campylobacter Not Detected Not Detect. P. shigelloides Not Detected Not Detect. Salmonella Not Detected Not Detect. Vibrio Not Detected Not Detect. Vibrio Cholerae Not Detected Not Detect. Y. enterocolit. Not Detected Not Detect. E. coli EAEC Not Detected Not Detect. E. coli EPEC Not Detected Not Detect. E. coli ETEC Not Detected Not Detect. E. coli STEC Not Detected Not Detect. E. coli O157 Not applicable Not Detect. E. coli containing the O157 antigen are a subset of Shiga-like toxin-producing E. coli (STEC). Shigella/EIEC Not Detected Not Detect. Cryptosporidium Not Detected Not Detect. Cyclospora Not Detected Not Detect. E. histolytica Not Detected Not Detect. Giardia lamblia Not Detected Not Detect. Adenovirus Not Detected Not Detect. Astrovirus Not Detected Not Detect. Norovirus See Comment Not Detect. Specimen sent to reference lab for further testing. Rotavirus A Not Detected Not Detect. Sapovirus Not Detected Not Detect. RAST panel and TTGA were not obtained ULTRASOUND OF THE ABDOMEN 06/07/24 FINDINGS: PANCREAS: The visualized portion of the pancreas head and body are normal, portion of the pancreatic body and tail, not visualized are obscured by bowel gas. ABDOMINAL AORTA: The proximal, mid, and distal segments are normal in caliber. INFERIOR VENA CAVA: Visualized portions are normal. LIVER: Top normal in size 18 cm. The liver contour is normal. Mildly echogenic liver, mildly steatosis. No focal hepatic lesion. There is no intrahepatic biliary duct dilatation seen. GALLBLADDER: Normal. The gallbladder is physiologically distended without evidence of stones, sludge, polyps, wall thickening or pericholecystic fluid. COMMON BILE DUCT: Normal in caliber measuring 0.4 cm in diameter. RIGHT KIDNEY: Normal. No hydronephrosis. No renal calculi or focal parenchymal lesions. The kidney measures 10.7 cm in maximum dimension. LEFT KIDNEY: Echogenic foci likely nonobstructing stone measure up to 3 mm. No hydronephrosis or focal parenchymal lesions. The kidney measures 10.8 cm in maximum dimension. SPLEEN: Normal. The spleen measures 9.8 cm in maximum dimension. FREE FLUID: None. US/US abdomen complete IMPRESSION: 1. No ultrasound evidence of gallbladder disease or gallstones. 2. Mildly echogenic liver suggesting hepatic steatosis. 3. Echogenic foci in the left kidney likely nonobstructing stones. TODAY'S VISIT Bulgarian #Osiris Zuluaga Apparently the patient called requesting an appointment for abdominal pain. Her GI regimen now consists of Dexilant, famotidine, simethicone, Creon Reglan 5mg qid and bentl prn She was recently in [place]. She DID buy [employer] and when she was taking it she was feeling well. Then she stopped it because she felt she became constipated (her diarrhea has definitely resolved). Right now she is struggling with constipation, she has used Miralax with only mixed success - but she is not taking it every day. She also has bisacodyl at home but this is quite strong so I think, given her hx of diarrhea, that she is better with Miralax. She also has Benefiber at home that she also can use. She admits that her anxiety seems to set off her diarrhea. She also has this at the end of her menses. She started Wegovy 06/08, but she had trouble with the injector, and now her insurance is declining to cover it, her PCP may be changing her to Zepbound, but this is pending insurance coverage. She has nausea at her baseline, and of course the GLP-1 only worsened this. Her last dose was 06/15. We may need to make therapeutic changes to her CIC control and/or reglan depending on her GIP/GLP-1 use going forward. FOr now she feel she can manage the nausea. She DID see lubrication equipment servicer at [facility] for her unpredictable joint swelling and they are working her up currently. She recently had a pneumovax. She is taking SLO-FE for her anemia as was suggested by her pharmacists and I also feel this is a good fit to avoid some GI s/e. Return office visit next available [facility] Medical History (Updated 06/26/24 @ 16:44 by Sumaya Kessler, ANP-C) Nausea and vomiting Diarrhea Small intestinal bacterial overgrowth (SIBO), hydrogen subtype Upper abdominal pain Jaylyn albicans infection History of thyroiditis Palpitations Left flank pain, chronic Left hip pain Oropharyngeal dysphagia Rectal bleeding Breast lump Nephrolithiasis Vulvovaginitis jaylyn albicans Vulvovaginal candidiasis Myalgia Toe swelling Hives Vulvovaginitis Fibroadenoma of both breasts Acute diarrhea Recurrent nephrolithiasis Vitamin D deficiency Obesity Fibroadenoma Lipoma Fibromyalgia OSIRIS positive Hx of lipoma Surgical History History of esophagogastroduodenoscopy (EGD) History of wisdom tooth extraction Family History Father Diabetes Heart attack Asthma Maternal Grandmother Diabetes HTN (hypertension) Parkinson disease Breast cancer Mother Diabetes Family history of diabetes mellitus Sister Asthma Maternal Grandfather Parkinson disease Social History Household Members: Children [facility] Are you a primary team primary care physician to a significant other at home: No Do you presently have visiting nurse 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 (pmo analyst) Alcohol intake: never Patient Tobacco Use Status: Never used Tobacco Second Hand Smoke Exposure: Yes (Neighbors) service: No Current occupational status: disabled Sexual orientation: Straight/Heterosexual Gender identity: Female Female Reproductive History Menstrual Age of Menarche: 13 Review of Systems Const Denies fatigue, Denies fever(s), Denies night sweats, Reports poor appetite, Reports weight gain and Denies weight loss ENT Reports Normal hearing present, Denies dental pain, Denies dysphagia, Denies hearing loss, Denies mouth pain, Denies odynophagia, Denies throat swelling, Denies tongue swelling and Reports other (Dentition adequate) Card Reports no additional complaints Resp Reports no additional complaints GI Details: Denies abdominal pain, Denies melena, Reports bloating, Denies hematochezia, Reports constipation, Denies GI cramping, Denies dysphagia, Denies excessive flatus, Denies early satiety, Reports dyspepsia, Denies heartburn, Denies diarrhea, Reports nausea, Denies odynophagia, Denies vomiting and Denies hematemesis Musc Reports myalgias and Reports joint swelling Skin/Breast Denies pruritus, Denies lesions, Denies rash and Denies jaundice Neuro Reports Normal hearing present and Denies Abnormal speech present Psych Reports anxiety Endo Denies fatigue Aller/Immun Denies throat swelling and Denies tongue swelling Physical Exam Vital Signs: Last Vital Signs Pulse 94 06/26/24 14:05 BP 108/53 L 06/26/24 14:05 BMI result Body Mass Index 33.1 Const General: cooperative, no acute distress, well developed and well groomed Nutritional Appearance: well nourished and obese Orientation/consciousness: oriented to person, oriented to place and oriented to time Limitations: language barrier HEENT Head: Yes normocephalic and Yes atraumatic Eyes General: appearance normal, both eyes and all related structures Pupils: Equal, round and reactive pupils present Neck Neck: Yes normal visual inspection and Yes no lymphadenopathy Thyroid: Thyroid normal Resp Effort & Inspection: normal respiratory effort and able to speak in complete sentences Auscultation: clear to auscultation bilaterally Cardio Rate: regular rate Rhythm: regular rhythm Heart sounds: Normal, physiologic split S2 sound present Peripheral pulses: radial pulses present and posterior tibial pulses present GI Inspection: No distended, Yes Abdominal panniculus present and Yes obesity Palpation (GI): Soft to palpation, nontender, no guarding, not rigid and No hepatosplenomegaly present Percussion: Yes normal to percussion Auscultation: normal bowel sounds Rectal Exam - Female: deferred Skin General skin exam: no rashes or lesions noted, turgor normal, skin not dry, no jaundice, No spider nevi and no striae Rashes: no rashes Nails: normal Neuro General: oriented to person, oriented to place and oriented to time Cranial nerves: Yes Equal, round and reactive pupils present and Yes Normal hearing present Speech: No Abnormal speech present Extrem General: Yes normal to inspection, No clubbing, No cyanosis and No edema Psych Appearance: grossly normal and well kempt Mental Status: mental status grossly normal Speech and movement: Pressured speech present Affect: Animated affect present and Anxious affect present Attitude: cooperative Thought process: Circumstantial thought process present and not confabulating Thought content: Normal thought content present Insight: Limited insight present (Psych) Judgement: Limited judgement present (Psych) Results Reviewed Results Reviewed: Laboratory Tests 04/17/24 12:06 Stool Calprotectin 83 C. difficile Tox B Gene NEGATIVE 04/17/24-[address]: Petra Wiley ORDERED: GI Panel Test Result Flag Reference Campylobacter Not Detected Not Detect. P. shigelloides Not Detected Not Detect. Salmonella Not Detected Not Detect. Vibrio Not Detected Not Detect. Vibrio Cholerae Not Detected Not Detect. Y. enterocolit. Not Detected Not Detect. E. coli EAEC Not Detected Not Detect. E. coli EPEC Not Detected Not Detect. E. coli ETEC Not Detected Not Detect. E. coli STEC Not Detected Not Detect. E. coli O157 Not applicable Not Detect. E. coli containing the O157 antigen are a subset of Shiga-like toxin-producing E. coli (STEC). Shigella/EIEC Not Detected Not Detect. Cryptosporidium Not Detected Not Detect. Cyclospora Not Detected Not Detect. E. histolytica Not Detected Not Detect. Giardia lamblia Not Detected Not Detect. Adenovirus Not Detected Not Detect. Astrovirus Not Detected Not Detect. Norovirus See Comment Not Detect. Specimen sent to reference lab for further testing. Rotavirus A Not Detected Not Detect. Sapovirus Not Detected Not Detect. RAST panel and TTGA were not obtained ULTRASOUND OF THE ABDOMEN 06/07/24 FINDINGS: PANCREAS: The visualized portion of the pancreas head and body are normal, portion of the pancreatic body and tail, not visualized are obscured by bowel gas. ABDOMINAL AORTA: The proximal, mid, and distal segments are normal in caliber. INFERIOR VENA CAVA: Visualized portions are normal. LIVER: Top normal in size 18 cm. The liver contour is normal. Mildly echogenic liver, mildly steatosis. No focal hepatic lesion. There is no intrahepatic biliary duct dilatation seen. GALLBLADDER: Normal. The gallbladder is physiologically distended without evidence of stones, sludge, polyps, wall thickening or pericholecystic fluid. COMMON BILE DUCT: Normal in caliber measuring 0.4 cm in diameter. RIGHT KIDNEY: Normal. No hydronephrosis. No renal calculi or focal parenchymal lesions. The kidney measures 10.7 cm in maximum dimension. LEFT KIDNEY: Echogenic foci likely nonobstructing stone measure up to 3 mm. No hydronephrosis or focal parenchymal lesions. The kidney measures 10.8 cm in maximum dimension. SPLEEN: Normal. The spleen measures 9.8 cm in maximum dimension. FREE FLUID: None. US/US abdomen complete IMPRESSION: 1. No ultrasound evidence of gallbladder disease or gallstones. 2. Mildly echogenic liver suggesting hepatic steatosis. 3. Echogenic foci in the left kidney likely nonobstructing stones. Assessment & Plan Assessment & Plan (1) Constipation: Code(s): K59.00 - Constipation, unspecified Category: Medical (2) Gastroparesis: Comment: REALLY MORE FUNCTIONAL DYSPEPSIA, but Reglan did resolve what was her chronic nausea and vomiting Code(s): K31.84 - Gastroparesis Category: Medical (3) GERD (gastroesophageal reflux disease): Code(s): K21.9 - Gastro-esophageal reflux disease without esophagitis Category: Medical Qualifiers: Esophagitis presence: esophagitis presence not specified Qualified Code(s): K21.9 - Gastro-esophageal reflux disease without esophagitis (4) Irritable larynx syndrome: Comment: DX via her ENT Code(s): J38.7 - Other diseases of larynx Category: Medical (5) Cricopharyngeal hypertrophy: Code(s): J39.2 - Other diseases of pharynx Category: Medical (6) Irritable bowel syndrome with constipation: Code(s): K58.1 - Irritable bowel syndrome with constipation Category: Medical Plan Bulgarian #Osiris Live Apparently the patient called requesting an appointment for abdominal pain. Her GI regimen now consists of Dexilant, famotidine, simethicone, Creon Reglan 5mg qid and bentl prn She was recently in [place]. She DID buy [employer] and when she was taking it she was feeling well. Then she stopped it because she felt she became constipated (her diarrhea has definitely resolved). Right now she is struggling with constipation, she has used Miralax with only mixed success - but she is not taking it every day. She also has bisacodyl at home but this is quite strong so I think, given her hx of diarrhea, that she is better with Miralax. She also has Benefiber at home that she also can use. She admits that her anxiety seems to set off her diarrhea. She also has this at the end of her menses. She started Wegovy 06/08, but she had trouble with the injector, and now her insurance is declining to cover it, her PCP may be changing her to Zepbound, but this is pending insurance coverage. She has nausea at her baseline, and of course the GLP-1 only worsened this. Her last dose was 06/15. We may need to make therapeutic changes to her CIC control and/or reglan depending on her GIP/GLP-1 use going forward. FOr now she feel she can manage the nausea. She DID see lubrication equipment servicer at [facility] for her unpredictable joint swelling and they are working her up currently. She recently had a pneumovax. She is taking SLO-FE for her anemia as was suggested by her pharmacists and I also feel this is a good fit to avoid some GI s/e. Return office visit next available Coding Level of Care Code Est Pt Level 3 (69831) Diagnoses Constipation K59.00 Gastroparesis K31.84 Gastroesophageal reflux disease, unspecified whether esophagitis present K21.9 Esophagitis presence: esophagitis presence not specified Irritable larynx syndrome J38.7 Cricopharyngeal hypertrophy J39.2 Irritable bowel syndrome with constipation K58.1
[2024-06-26 14:05] VITALS: BP 108/53; PULSE 94; BMI 33.1
== END 2024-06-26 14:48 | disposition home or self-care (01) ==
PROVIDERS: PCP Registered Nurse; Visit Provider Nurse Practitioner
DX: K59.00 Constipation, unspecified (principal); K31.84 Gastroparesis; K21.9 Gastro-esophageal reflux disease without esophagitis; J38.7 Other diseases of larynx; J39.2 Other diseases of pharynx; K58.1 Irritable bowel syndrome with constipation
CPT/HCPCS: 99213

== ENCOUNTER → 2024-06-26 13:41 | Outpatient (BNVA) | payer MEDICAID, SELFPAY | PROVIDERS: PCP Registered Nurse; Visit Provider Nurse Practitioner | DX: K59.00 Constipation, unspecified (principal); K31.84 Gastroparesis; K21.9 Gastro-esophageal reflux disease without esophagitis; K58.1 Irritable bowel syndrome with constipation; J38.7 Other diseases of larynx; J39.2 Other diseases of pharynx | CPT/HCPCS: 99212 ==

== ENCOUNTER 2024-07-30 14:00 | Outpatient (AMB) | payer MEDICAID, SELFPAY ==
--- NOTE | 2024-07-30 14:02 | MHC.OFFVIS ---
Vital Signs 07/30/24 14:03 Height 4 ft 11 in Weight 160 lb 14.999 oz BMI 32.5 BP 116/78 Blood Pressure Location Lt brachial Position Sitting Pulse 88 Intake Visit Reasons: 4 mth f/up Accounting Auditor Required: Yes Accounting Auditor Language: Mechanical Assembly Name: voice ledesma [id number] Allergies Iodinated Contrast Media [IV DYE, IODINE CONTAINING CONTRAST ] Allergy (Intermediate, Verified 07/30/24 14:08) SHORTNESS OF BREATH citalopram [From CELEXA] Allergy (Unknown, Verified 07/30/24 14:08) VOMITTING duloxetine [Cymbalta] Allergy (Unknown, Verified 07/30/24 14:08) unknown morphine [MORPHINE] Allergy (Unknown, Verified 07/30/24 14:08) PALPITATIONS-PT PREFERS NOT TO TAKE tramadol [TRAMADOL] Allergy (Unknown, Verified 07/30/24 14:08) VOMITING Medication List - Last Reconciled 07/30/24 by Michell Espinoza NP-C albuterol sulfate 90 mcg/actuation (Ventolin HFA) 1 inh inhalation QID azelastine 1 spray intranasal BID PRN cholecalciferol (vitamin D3) 25 mcg PO DAILY dexlansoprazole (Dexilant) 60 mg PO DAILY 30 days diclofenac sodium 1% 4 grams topical BID dicyclomine 10 mg PO TID PRN diphenhydramine HCl 25 mg orally Take one capsule the am of Day Before CT scan, Take one capsule the evening of Day Before CT scan and take one capsule the morning of the CT scan; 2 days famotidine 40 mg PO BEDTIME ferrous sulfate 300 mg (5 mL) PO BID fexofenadine 180 mg PO DAILY ibuprofen 400 mg PO Q4-6H PRN [id number] 36,000-114,000- 180,000 unit (Creon) 2 caps PO BID loratadine (Children's Allergy Relief (loratadine)) 10 mL PO DAILY lorazepam 1 mg PO BEDTIME PRN methocarbamol 750 mg PO QID metoclopramide HCl (Reglan) 5 mg PO QIDACHS nabumetone 750 mg PO BID ondansetron 4 mg PO BID-TID PRN pregabalin 75 mg PO BID propranolol 20 mg PO BID simethicone 180 mg PO QID 30 days HPI HPI 4 mth f/up: Details: Ambika is a 39-year-old female with past medical history of syncope, abnormal findings on EKG, heart palpitations and noncardiac chest discomfort who presents for follow-up. Today she reports that she has been doing much better since the start of propranolol. Her chest symptoms have lessened. She is not having discomfort like she was describing in the past. She will feel some palpitations at times but not as much as previously reported. At times she feels lightheaded and notices that her blood pressure is low. She has been taking propranolol only once a day, at bedtime because it makes her sleepy. No shortness of breath, PND, orthopnea or edema. No presyncope, syncope, falls. Admits to being mostly sedentary. Family member present. 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 [facility] Medical History Nausea and vomiting Diarrhea Small intestinal bacterial overgrowth (SIBO), hydrogen subtype Upper abdominal pain Jaylyn albicans infection History of thyroiditis Palpitations Left flank pain, chronic Left hip pain Oropharyngeal dysphagia Rectal bleeding Breast lump Nephrolithiasis Vulvovaginitis jaylyn albicans Vulvovaginal candidiasis Myalgia Toe swelling Hives Vulvovaginitis Fibroadenoma of both breasts Acute diarrhea Recurrent nephrolithiasis Vitamin D deficiency Obesity Fibroadenoma Lipoma Fibromyalgia NURIA positive Hx of lipoma Surgical History History of esophagogastroduodenoscopy (EGD) History of wisdom tooth extraction Family History Father Diabetes Heart attack Asthma Maternal Grandmother Diabetes HTN (hypertension) Parkinson disease Breast cancer Mother Diabetes Family history of diabetes mellitus Sister Asthma Maternal Grandfather Parkinson disease Social History Household Members: Children Housing: Condominium Are you a primary rn medicare to a significant other at home: No Do you presently have visiting nurse 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 (bow maker gift wrapping) Alcohol intake: never Patient Tobacco Use Status: Never used Tobacco Second Hand Smoke Exposure: Yes (Neighbors) service: No Current occupational status: disabled Sexual orientation: Straight/Heterosexual Gender identity: Female Female Reproductive History Menstrual Age of Menarche: 13 Review of Systems Const All systems reviewed & are unremarkable except as noted in HPI and below Reports fatigue ENT Reports dizziness Card Details: palpitations Denies chest pain, Denies chest pain at rest, Denies chest pain with activity, Denies rapid heart rate, Denies pedal edema, Denies edema, Denies leg edema, Denies lightheadedness, Denies palpitations, Denies dyspnea, Denies dyspnea on exertion and Denies orthopnea Resp Denies cough, Denies dyspnea and Denies dyspnea on exertion GI Denies hematochezia and Denies change in stool character Musc Denies abnormal gait, Denies limited range of motion, Denies muscle cramps, Denies muscle weakness, Denies numbness, Denies radiating pain into limb, Denies stiffness and Denies tingling Neuro Denies abnormal gait, Reports dizziness, Denies numbness and Denies tingling Endo Reports fatigue and Denies palpitations Physical Exam Vital Signs: Last Vital Signs Pulse 88 07/30/24 14:03 BP 116/78 07/30/24 14:03 BMI result Body Mass Index 32.5 Const General: cooperative, healthy appearing, comfortable and no acute distress Orientation/consciousness: patient oriented x3 Neck Neck: Yes normal visual inspection Resp Effort & Inspection: normal respiratory effort Auscultation: clear to auscultation bilaterally, no rales, no rhonchi and no wheezes Cardio Rate: regular rate Rhythm: regular rhythm Heart sounds: S1 normal heart sound present, S2 normal heart sound present, no murmurs and no rubs Neuro General: patient oriented x3 Extrem General: Yes normal to inspection, No no pedal edema and No calf tenderness Psych Appearance: grossly normal Mental Status: mental status grossly normal Speech and movement: Normal speech and movement present Assessment & Plan Assessment & Plan (1) Abnormal ECG: Code(s): R94.31 - Abnormal electrocardiogram [ECG] [EKG] Category: Medical Plan: History of abnormal EKG. Previously evaluated for abnormal EKG with sinus rhythm with T-wave inversion as well as some ST depressions laterally. Echocardiogram on 01/18/2022 showing EF 60-65%, normal study. An exercise nuclear stress test was done on 01/22/2022 showing exercise 5 minutes with EKG changes suggestive of ischemia however nuclear imaging was normal. ER evaluation 07/2023 with chest discomfort and was told it was costochondritis. ER evaluation 09/19/2023 for heart palpitations, nausea and vomiting. Troponin was normal. EKG does show sinus tachycardia with septal Q, ST and T-wave abnormality in the inferior lateral leads suggesting ischemia. Exercise stress echocardiogram done 11/01/2023 with exercise close to 6 minutes with report of 10/10 chest discomfort with EKG changes that meet criteria for ischemia however No echo evidence of ischemia. Test results previously reviewed with her in detail. She was felt to have noncardiac chest discomfort. On last visit with me she was started on propranolol for her heart palpitations. She now states that her chest discomfort has improved. She is not getting episodes like previously reported. She is currently pleased with how she is feeling. (2) Palpitations: Code(s): R00.2 - Palpitations Category: Medical Plan: Report of heart palpitations requiring ER evaluation without acute findings. Her EKG that day did show sinus tachycardia. Lab work reviewed and no significant abnormalities. TSH 1.21. She does have a history of anxiety which can contribute. Holter monitor was done on 11/01/2023 for 7 days showing sinus rhythm with average heart rate 84, 18% of the time heart rate greater than 100, max heart rate 172, occasional PACs and PVCs. She states that when she wore the Holter monitor she did not engage in any exercise. It is possible that the heart rate of 172 could have been SVT but it was read as sinus tach. She was then started on propranolol 20 mg b.i.d.. Today she reports that her palpitations have greatly lessened. She has been taking the propranolol only once daily, in the evening as it makes her tired. She says her blood pressure has been low at times. Informed her if this is the case then her propranolol pill can be broken in half, 10 mg daily. The need for good hydration, Avoid caffeine and adequate rest all reviewed with her. Cardiology follow-up in 6 months, sooner if needed. (3) Chest pain: Code(s): R07.9 - Chest pain, unspecified Category: Medical Qualifiers: Chest pain type: precordial pain Qualified Code(s): R07.2 - Precordial pain Plan: Noncardiac (4) Syncope: Code(s): R55 - Syncope and collapse Category: Medical Qualifiers: Syncope type: unspecified Qualified Code(s): R55 - Syncope and collapse Plan: Syncopal episode approximately 3 years ago. No recurrent episodes since that time. Her description of the event is most likely vasovagal. Reviewed the need of good hydration, recognizing symptoms and get in a laying down position if symptoms occurred. Instructed to notify this office if she has any recurrent episode Plan Time spent on chart review, documentation, interview and assessment Coding Level of Care Code Est Pt Level 4 (29967) Complex EM visit Add On G2211 Diagnoses Abnormal ECG R94.31 Palpitations R00.2 Precordial pain R07.2 Chest pain type: precordial pain Syncope, unspecified syncope type R55 Syncope type: unspecified Time Spent (min) 32
[2024-07-30 14:03] VITALS: BP 116/78; PULSE 88; BMI 32.5
--- OUTSIDE RECORDS SUMMARY | 2024-07-30 14:03 | XMS_ITS | Clinical Summary ---
Author Organization [facility] Address [address] [place] [address] Care Team Providers Care Assessment Counselor Name Role Phone Petra Wiley Primary Care Provider [phone] Allergies Active Allergy Reactions Criticality Noted Date Comments Citalopram Vomiting 09/12/2021 Duloxetine Vomiting 12/03/2014 Other reaction(s): GI Problems Iodinated Contrast Media Anaphylaxis High 07/04/2022 Morphine Dyspnea High 01/14/2012 Other reaction(s): Altered Heart Rate, Trouble Breathing, chest pain Tramadol Vomiting High 12/03/2014 Other reaction(s): Vomit Medications albuterol (PROAIR HFA,VENTOLIN HFA) 90 mcg inhaler Inhale 2 puffs by mouth. 4 Active azelastine (ASTELIN) 137 mcg (0.1 %) nasal spray 1 spray 2 times daily as needed. 4 Active blood pressure test kit-large kit USE TO CHECK BLOOD PRESSURE TWICE DAILY DIRECTED 4 Active budesonide-formote roL (SYMBICORT) 80-4.5 mcg inhaler Inhale 2 puffs by mouth 2 times daily. 4 025 Active butalbital-acetami nophen-caffeine (FIORICET) 50-325-40 mg tablet TOME ADRY TABLETA CADA OCHO HORAS CUANDO SEA NECESARIO FOR 30 DAYS 4 Active cholecalciferol (VITAMIN D3) 1,000 unit tablet SMARTSI Tablet(s) By Mouth Daily Active cyclobenzaprine (FLEXERIL) 5 mg tablet Take 5 mg by mouth 3 times daily. 4 Active dicyclomine (BENTYL) 10 mg capsule MIGUE Szymanski PSMESHA SIUS VECES AL D A 3 Active famotidine (PEPCID) 40 mg tablet SMARTSI Tablet(s) By Mouth Every Night 4 Active fexofenadine (KALLIE) 180 mg tablet SMARTSI Tablet(s) By Mouth Daily Active fluoride, sodium, 1.1 % paste APPLY A SMEAR OF PASTE ON THE BRUSH BRUSH THOROUGHLY TWICE DAILY. SPIT, DO NOT RINSE. 4 Active Creon 24,000-76,000 -120,000 unit capsule SMARTSI Capsule(s) By Mouth 3 Times Daily 4 Active LORazepam (ATIVAN) 1 mg tablet SMARTSI.5-1 Tablet(s) By Mouth Daily PRN Active metoclopramide (REGLAN) 5 mg tablet SMARTSI Tablet(s) By Mouth 4 Times Daily 4 Active nabumetone (RELAFEN) 750 mg tablet PLEASE SEE ATTACHED FOR DETAILED DIRECTIONS Active ondansetron (ZOFRAN ODT) 4 mg disintegrating tablet SMARTSI Tablet(s) By Mouth 2-3 Times Daily PRN 4 Active propranoloL (INDERAL) 20 mg tablet SMARTSI Tablet(s) By Mouth Twice Daily Active simethicone (MYLICON,GAS-X) 180 mg capsule SMARTSI Capsule(s) By Mouth Twice Daily Active cyanocobalamin 1,000 mcg tablet Take 1,000 mcg by mouth daily. 4 Active Dexilant 60 mg capsule SMARTSI Capsule(s) By Mouth Daily Active umeclidinium-vilan teroL (Anoro Ellipta) 62.5-25 mcg/actuation blister with device Inhale by mouth once a day. Active pregabalin (LYRICA) 50 mg capsule Take 50 mg by mouth 3 times a day. Active Active Problems Problem Noted Date Diagnosed Date Subcutaneous nodule of abdominal wall 04/15/2024 Assessment & Plan (04/15/2024 3:06 PM EDT): Farhana presented today with complaints of subcutaneous nodules on her anterior abdominal wall as well as her right upper extremity over the bicep and deltoid area. Ultrasound imaging failed to show discrete nodules. On exam normal lobular fat tissue was palpable. Her complaints of pain that migrates from area to area on her body is more consistent with her diagnosis of fibromyalgia. She was reassured that normal fat is lobular there is no discrete lipoma or subcutaneous mass that needs to be surgically excised. She was reassured and all of her questions were answered today. I did discuss his case today with Dr. Alejo and he is in agreement with the above assessment. Encounters Date Type Department Care Team Description 07/22/2024 12:00 PM EST Office Visit [facility] [address] [place] [id number] National Account Executive: Newton Rangel DO Erythromelalgia (HCC) (Primary Dx); Polyarthralgia 06/26/2024 Transcribe Orders [facility] [address] [place] [address] Petra Wiley Subcutaneous mass of right upper extremity (Primary Dx); Subcutaneous mass of abdominal wall 05/20/2024 2:58 PM EST - 05/20/2024 11:59 PM EST Hospital Encounter [facility] [address] [place] [address] DO Polyarthralgia Discharge Disposition: Home or Self Care () 05/20/2024 1:00 PM EST Office Visit [facility] [address] [place] [id number] National Account Executive: Newton Rangel DO Polyarthralgia (Primary Dx); Positive NURIA (antinuclear antibody) from Last 3 Months Social History Tobacco Use Types Packs/Day Years Used Date Smoking Tobacco: Never Smokeless Tobacco: Never Tobacco Cessation:Counseling Given: Not Answered Alcohol Use Standard Drinks/Week Comments Not Currently 0 (1 standard drink = 0.6 oz pur e alcohol) Comments Unknown Sex and Gender Information Value Date Recorded Sex Assigned at Female 05/20/2024 3:27 PM EST Legal Sex Female 2:51 PM EDT Gender Identity Not on file Sexual Orientation Not on file Last Filed Vital Signs Vital Sign Reading Time Taken Comments Blood Pressure 119/83 07/22/2024 11:41 AM EST Pulse 105 07/22/2024 11:41 AM EST Temperature 36.6 ??C (97.9 ??F) 07/22/2024 11:[address] Respiratory Rate - - Oxygen Saturation - - Inhaled Oxygen Concentration - - Weight 73 kg (161 lb) 07/22/2024 11:41 AM EST Height 149.9 cm (4' 11 ) 07/22/2024 11:41 AM EST Body Mass Index 32.52 07/22/2024 11:41 AM EST Plan of Treatment Upcoming Encounters Date Type Department Care Team (Late st Contact Info) Description 11/11/2024 12:00 PM EDT Office Visit [facility] [address] [place] [address] National Account Executive: Newton Rangel DO [address] [facility] [place] [address] Health Maintenance Due Date Last Done Comments HPV and Pap Smear 1987 Hepatitis C Screening 1987 Varicella Vaccines (1 of 2 - 13+ 2-dose series) 2000 Hepatitis B Vaccines (1 of 3 - 19+ 3-dose series) 2006 DTaP,Tdap,and Td Vaccines (1 - Tdap) 10/15/201509/16 Cervical Cancer Screening 11/11/2022 Pap Smear 11/11/2022 11/12/2019 COVID-19 Vaccine ( - season) 2024 Influenza Vaccine (#1) 2024 6, 03/22/2015, 03/06/2013 Alcohol/Substance Use Screening 06/17/2024 Depression Screening and Follow-Up 06/17/2024 Social Drivers of Health Yoselin ual Screening 06/17/2024 RSV Vaccine (60+ years old a nd patients) (1 - 1-dose 75+ series) 2062 HIV Screening Completed 03/18/2024 Pneumococcal Vaccine: Pediat rebeca (0-5 Years) and At-Risk Patients (6-50 Years) Completed 05/13/2024 Procedures * Due to [place] state law, this organization might not be sharing negative HIV tests. Procedure Name Priority Date/Time Associated Diagnosis Comments SEDIMENTATION RATE, AUTOMATED Routine 07/22/2024 1:56 PM EST Polyarthralgia PROTEIN ELECTROPHORESIS W/REFLEX TO IMMUNOFIXATION, SERUM Routine 07/22/2024 1:56 PM EST Polyarthralgia NURIA, TITER AND PATTERN Routine 3:31 PM EST Polyarthralgia NURIA SPECIFIC ANTIBODY Routine 05/20/2024 3:31 PM EST Polyarthralgia NURIA SCREEN, IFA, W/REFLEX TO TITER & PATTERN Routine 05/20/2024 3:31 PM EST Polyarthralgia RHEUMATOID FACTOR Routine 05/20/2024 3:3 1 PM EST Polyarthralgia CYCLIC CITRULLLNATED PEPTIDE (CCP) ANTIBODY, IGG Routine 05/20/2024 3:31 PM EST Polyarthralgia SEDIMENTATION RATE, AUTOMATED Routine 05/20/2024 3:31 PM EST Polyarthralgia C-REACTIVE PROTEIN Routine 05/20/2024 3: 31 PM EST Polyarthralgia CK Routine 05/20/2024 3:31 PM EST Polyarthralgia COMPLEMENT C3C AND C4C Routine 3:31 PM EST Polyarthralgia CARDIOLIPIN ANTIBODIES, IGG/IGM/IGA Routine 05/20/2024 3:31 PM EST Positive NURIA (antinuclear antibody) SVGO-1-[id number] I ANTIBODIES, IGG/IGA/IGM Routine 05/20/2024 3:31 PM EST Positive NURIA (antinuclear antibody) LUPUS ANTICOAGULATION EVALUATION W/REFLEX Routine 05/20/2024 3:31 PM EST Positive NURIA (antinuclear antibody) XR LUMBAR SPINE 2 OR 3 VIEWS Routine 05/20/2024 3:21 PM EST Polyarthralgia XR FOOT 3+ VW RIGHT Routine 05/20/2024 3 :21 PM EST Polyarthralgia XR FOOT 3+ VW LEFT Routine 05/20/2024 3: 21 PM EST Polyarthralgia XR HAND 3+ VW RIGHT Routine 05/20/2024 3 :21 PM EST Polyarthralgia XR HAND 3+ VW LEFT Routine 05/20/2024 3: 21 PM EST Polyarthralgia from Last 3 Months Results * Due to [place] state law, this organization might not be sharing negative HIV tests. * Protein Electrophoresis w/Reflex to Immunofixation, Serum (07/22/2024 1:56 PM EST) Pathologist [facility] Protein, Total 8.1 6.1 - 8.1 g/dL 07/28/2024 7:22 AM EST [facility] Albumin 4.8 3.8 - 4.8 g/dL 07/28/2024 7:22 AM EST [facility] Alpha 1 Globulin 0.3 0.2 - 0.3 g/dL 07/28/2024 7:22 AM EST [facility] Alpha 2 Globulin 0.7 0.5 - 0.9 g/dL 07/28/2024 7:22 AM EST [facility] Beta 1 Globulin 0.6 0.4 - 0.6 g/dL 07/28/2024 7:22 AM EST [facility] Beta 2 Globulin 0.5 0.2 - 0.5 g/dL 07/28/2024 7:22 AM EST [facility] Gamma Globulin 1.2 0.8 - 1.7 g/dL 07/28/2024 7:22 AM EST [facility] Interpretation See Comments 07/28/2024 7:22 AM EST [facility] Comment: Normal Serum Protein Electrophoresis Pattern. No abnormal protein bands (M-protein) detected. Blood Structure of peripheral vein / Unknown Venipuncture / Unknown 07/22/2024 1:56 PM EST 07/22/2024 2:37 PM EST [facility]ative [facility] - 07/28/2024 7:22 AM EST [facility] Received Date: Newton Popov DO LAB BLOOD ORDERABLES Final Res ult Performing Organization Address [facility] Co de Phone Number [facility] [address] [facility] 3rd Floor, [place] [address], [place] [phone] [facility] [address], [place] [address], [place] [phone] * (ABNORMAL) Sedimentation Rate (07/22/2024 1:56 PM EST) Only the most recent of2 resultswithin the time period is included. Sed Rate 29(H) <20 mm/Hr mm/Hr 07/22/2024 2:52 PM EST [facility] Blood Structure of peripheral vein / Unknown Venipuncture / Unknown 07/22/2024 1:56 PM EST 07/22/2024 2:[address] DO LAB BLOOD ORDERABLES Final Res ult Performing Organization Address City/[facility]/ZIP Co de Phone Number [facility] [address] [place] [address], * (ABNORMAL) NURIA, Titer and Pattern (05/20/2024 3:31 PM EST) NURIA Titer 1 1:640(H) titer 05/22/2024 12:31 PM EST [facility] Comment: ?Reference Range ?<1:40 ?Negative ?1:40-1:80 ?Low Antibody Level ?>1:80 ?Elevated Antibody Level NURIA Pattern 1 Nuclear, Dense Fine Speckled( A) 05/22/2024 12:31 PM EST [facility] Comment: Dense fine speckled pattern is seen in normal individuals and rarely associated with systemic lupus erythematosis (SLE), Sjogren's syndrome and systemic sclerosis. AC-2: Dense Fine Speckled International Consensus on NURIA Patterns (https://doi.org/10.1515/hsip-1192-9884) Blood Structure of peripheral vein / Unknown Venipuncture / Unknown 05/20/2024 3:31 PM EST 05/20/2024 3:45 PM EST [facility] 05/22/2024 12:31 PM EST [facility] Received Date: Newton Street DO LAB BLOOD ORDERABLES Final Res ult [facility] [address] [facility] [address] Floor, [place] [address], [place] [phone] [facility] [address] [facility] 3rd Floor, [place] [address], [place] [phone] * Cardiolipin Antibodies, IgG/IgM/IgA (05/20/2024 3:31 PM EST) Cardiolipin Ab IgA <2.0 APL-U/mL 2023 2:07 PM EST [facility] Comment: Value ?Interpretation ----- ? < 20.0 ? Antibody not detected > or = 20.0 ?Antibody detected Cardiolipin Ab IgG <2.0 GPL-U/mL 2023 2:07 PM EST [facility] Comment: Value ?Interpretation ----- ? < 20.0 ? Antibody not detected > or = 20.0 ?Antibody detected Cardiolipin Ab IgM <2.0 MPL-U/mL 2023 2:07 PM EST [facility] Comment: Value ?Interpretation ----- ? < 20.0 ? Antibody not detected > or = 20.0 ?Antibody detected The antiphospholipid antibody syndrome (APS) is a clinical-pathologic correlation that includes a clinical event (e.g. arterial or venous thrombosis, morbidity) and persistent positive antiphospholipid antibodies (IgM, IgG Cardiolipin or b2GPI antibodies greater than the 99th percentile; or a lupus anticoagulant). International consensus guidelines for APS suggest waiting at least 12 weeks before retesting to confirm antibody persistence. The Systemic Lupus International Collaborating [facility]ics immunological classification criteria for systemic lupus erythematosus (SLE) include testing for isotype IgA, which has yet to be incorporated into APS criteria. Low level antiphospholipid antibodies may sometimes be detected in the setting of infection, drug therapy or aging. For additional information, please refer to http://education.[employer]/faq/SFO097 (This link is being provided for informational/ educational purposes only.) Blood Structure of peripheral vein / Unknown Venipuncture / Unknown 05/20/2024 3:31 PM EST 05/20/2024 3:45 PM EST Narrative [facility] - 05/21/2024 2:07 PM EST [facility] Received Date: Newton Street DO LAB BLOOD ORDERABLES Final Res ult [facility] [address] [facility] [address], [place] [address], [place] [phone] [facility] [address], [place] [address], * Complement C3c and C4c (05/20/2024 3:31 PM EST) Complement Component C3C 180 83 - 193 mg/dL 05/21/2024 1:53 AM EST [facility] Complement Component C4C 32 15 - 57 mg/dL 05/21/2024 1:53 AM EST [facility] Blood Structure of peripheral vein / Unknown Venipuncture / Unknown 05/20/2024 3:31 PM EST 05/20/2024 3:45 PM EST Narrative [facility] - 05/21/2024 1:53 AM EST [facility] Received Date: us [address] DO LAB BLOOD ORDERABLES Final Res ult [facility] [address] [facility] [address], [place] [address], [place] [phone] [facility] [address], [place] [address], * Lupus Anticoagulation Evaluation w/Reflex (05/20/2024 3:31 PM EST) [facility] Lupus Anticoagulant See Comments 05/22/2024 7:11 AM EST [facility] ([facility]) Comment: A Lupus Anticoagulant is not detected. Reference Range: ??Not Detected For additional information, please refer to http://education.[employer]/faq/PVF86e8 (This link is being provided for informational/ educational purposes only.) ? This interpretation is based on the following test results. Ptt-LA Screen 34 <=40 sec 05/22/2024 7:11 AM EST [facility] ([facility]) dRVVT Screen 31 <=45 sec 05/22/2024 7:11 AM EST [facility] (ALE[facility]RE) Blood Structure of peripheral vein / Unknown Venipuncture / Unknown 05/20/2024 3:31 PM EST 05/20/2024 3:45 PM EST Narrative [facility]) - 05/22/2024 7:11 AM EST [facility] Received Date: [address] DO LAB BLOOD ORDERABLES Final Res ult [facility]) [address] [place] [address], [place] * Cyclic citrul peptide antibody, IgG (05/20/2024 3:31 PM EST) Cyclic Citrullinated Peptide (CCP) Ab (IgG) <16 UNITS 05/21/2024 10:26 PM EST [facility] Comment: Reference Range Negative: ?<20 Weak Positive: ? 20-39 Moderate Positive: ?? 40-59 Strong Positive: ? >59 Blood Structure of peripheral vein / Unknown Venipuncture / Unknown 05/20/2024 3:31 PM EST 05/20/2024 3:45 PM EST Narrative [facility] - 05/21/2024 10:26 PM EST [facility] Received Date: [address] DO LAB BLOOD ORDERABLES Final Res ult [facility] [address] [facility] [address], [place] [address], [facility] [address] [facility] [address] Floor, [place] [address], * (ABNORMAL) NURIA Screen, IFA, w/Reflex to Titer & Pattern (05/20/2024 3:31 PM EST) NURIA Screen, IFA POSITIVE (A) NEGATIVE 05/22/2024 12:31 PM EST [facility] Comment: NURIA IFA is a first line screen for detecting the presence of up to approximately 150 autoantibodies in various autoimmune diseases. A positive NURIA IFA result is suggestive of autoimmune disease and reflexes to titer and pattern. Further laboratory testing may be considered if clinically indicated. For additional information, please refer to http://education.[employer]/faq/GEC757 (This link is being provided for informational/ educational purposes only.) ?? Blood Structure of peripheral vein / Unknown Venipuncture / Unknown 05/20/2024 3:31 PM EST 05/20/2024 3:45 PM EST Narrative [facility] - 05/22/2024 12:31 PM EST [facility] Received Date: Newton Street DO LAB BLOOD ORDERABLES Final Res ult [facility] [address] [facility] [address], [place] [address], [facility] [address] [facility] [address] Floor, [place] [address], * Umsv-7-Xadzxcyhxtfu I Antibodies, IgG/IgA/IgM (05/20/2024 3:31 PM EST) Beta2-Glycoprotein I (IgG) <2.0 <20.0 U/mL 05/25/2024 8:22 PM EST [facility]) Comment: Value ?Interpretation ----- ? < 20.0 ? Antibody not detected > or = 20.0 ?Antibody detected Beta2-Glycoprotein I (IgM) <2.0 <20.0 U/mL 05/25/2024 8:22 PM EST [facility] ([facility]) Comment: Value ?Interpretation ----- ? < 20.0 ? Antibody not detected > or = 20.0 ?Antibody detected Beta2-Glycoprotein I (IgA) <2.0 <20.0 U/mL 05/25/2024 8:22 PM EST [facility] ([facility]) Comment: Value ?Interpretation ----- ? < 20.0 ? Antibody not detected > or = 20.0 ?Antibody detected The antiphospholipid antibody syndrome (APS) is a clinical-pathologic correlation that includes a clinical event (e.g. arterial or venous thrombosis, morbidity) and persistent positive antiphospholipid antibodies (IgM, IgG Cardiolipin or b2GPI antibodies greater than the 99th percentile; or a lupus anticoagulant). International consensus guidelines for APS suggest waiting at least 12 weeks before retesting to confirm antibody persistence. The Systemic Lupus International Collaborating [facility] immunological classification criteria for systemic lupus erythematosus (SLE) include testing for isotype IgA, which has yet to be incorporated into APS criteria. Low level antiphospholipid antibodies may sometimes be detected in the setting of infection, drug therapy or aging. For additional information, please refer to http://education.[employer] [facility]/faq/DDN616 (This link is being provided for informational/ educational purposes only.) ? Blood Structure of peripheral vein / Unknown Venipuncture / Unknown 05/20/2024 3:31 PM EST 05/20/2024 3:45 PM EST Narrative [facility] - 05/25/2024 8:22 PM EST [facility] Received Date: us [address] DO LAB BLOOD ORDERABLES Final Res ult [facility] [address] [place] [address] [address], [place] [address], [facility] ([facility]) [address] [place], [place] , [place] * Rheumatoid factor (05/20/2024 3:31 PM EST) Pathologist [facility] Rheumatoid Factor <10 <14 IU/mL 05/20/2024 9:54 PM EST [facility] Blood Structure of peripheral vein / Unknown Venipuncture / Unknown 05/20/2024 3:31 PM EST 05/20/2024 3:45 PM EST Narrative [facility] - 05/20/2024 9:54 PM EST [facility] Received Date: [employer] LAB BLOOD ORDERABLES Final Res ult [facility] [address] [facility] [address], [place] [address], [place] [phone] [facility] [address] [facility] 3rd Floor, [place] [address], [place] [phone] * C-reactive protein (05/20/2024 3:31 PM EST) C Reactive Protein <3.0 <=9.9 mg/L 05/20/2024 4:11 PM EST [facility] Blood Structure of peripheral vein / Unknown Venipuncture / Unknown 05/20/2024 3:31 PM EST 05/20/2024 3:45 PM EST [employer] LAB BLOOD ORDERABLES Final Res ult Performing Organization Address City/[facility]/ZIP Co de Phone Number [facility] [address] [place] [address], * NURIA Specific Antibody w/Reflex to [place] (05/20/2024 3:31 PM EST) NURIA Screen, Immunoassay NEGATIVE NEGATIVE 05/21/2024 2:12 PM EST [facility] Comment: A negative NURIA Multiplex indicates the absence of detectable antibodies to component analytes consisting of double stranded DNA (dsDNA), chromatin, ribonucleoprotein (AUTOMOTIVE SALES REPRESENTATIVE), Jamison/AUTOMOTIVE SALES REPRESENTATIVE (Sm/AUTOMOTIVE SALES REPRESENTATIVE), Jamison (Sm), SS-A, SS-B, Laura-1, centromere B, Scl-70 and ribosomal P. A negative result should be interpreted in the context of the clinical and laboratory findings and does not rule out autoimmune disease characterized by other autoantibody specificities such as rheumatoid arthritis, autoimmune hepatitis, primary biliary cirrhosis, autoimmune thyroiditis, [place]'s disease, pernicious anemia, autoimmune neuropathies, vasculitis, celiac disease, and bullous disease. For additional information, please refer to http://education.Jaco Solarsi/faq/SGY358 (This link is being provided for informational/ educational purposes only.) ?? Blood Structure of peripheral vein / Unknown Venipuncture / Unknown 05/20/2024 3:31 PM EST 05/20/2024 3:45 PM EST Narrative [facility] 05/21/2024 2:12 PM EST [facility] Received Date: [employer] DO LAB BLOOD ORDERABLES Final Res ult Performing Organization Address City/[facility]/ZIP Co de Phone Number [facility] [address] [facility] [address]rd [address], [place] [address], [place] [phone] [facility] [address] [facility] [address]rd Floor, [place] [address], [place] [phone] * CK (05/20/2024 3:31 PM EST) CK 55 38 - 206 U/L 05/20/2024 4:11 PM EST [facility] Blood Structure of peripheral vein / Unknown Venipuncture / Unknown 05/20/2024 3:31 PM EST 05/20/2024 3:45 PM EST [employer] DO LAB BLOOD ORDERABLES Final Res ult [facility] [address] [place] [address], [place] * XR Foot 3+ vw Right (05/20/2024 3:21 PM EST) Anatomical Region Laterality Modality Lower Extremities, Foot Right Computed Radiography 05/20/2024 3:41 PM EST Impressions 05/20/2024 3:47 PM EST Bilateral feet no arthropathy no acute fractures dislocations Bilateral hands, mild degenerative changes left greater than right no evidence of inflammatory arthropathy LS-spine, no spondyloarthropathy or acute changes If this radiology report contains a blank impression section, it is an incomplete radiology report. ??Please contact the interpreting radiologist or applicable radiology division as soon as possible to obtain the completed interpretation. ? Workstation ID: [id number] Narrative 05/20/2024 3:47 PM EST COMPARISON: ??There are no prior studies available for comparison at this time. ?? FINDINGS Bilateral feet x-rays AP lateral and oblique views. Bilaterally truncation of the distal phalangeal mc of most of the toes. Bilaterally no evidence of degenerative changes or inflammatory arthropathy. No old or recent fractures dislocations or other changes. Bilateral hands AP lateral and oblique views. Bilaterally ulnar minus variance. Bilaterally all the joints within the hand and the wrist are within normal limits except mild degenerative changes in some of the PIP and DIP joints with the narrowed joint space and no significant spurs. Left greater than right. No erosions suggestive of inflammatory arthropathy or inflammatory osteoarthritis or other abnormalities LS-spine AP and lateral views upright. 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 No acute fractures dislocations or compression deformities L5-S1 mild degenerative changes. Facet joints within normal limits. No spondyloarthropathy Resulting Agency Comment [id number] Procedure Note Saritha Fabian MD - 05/20/2024 COMPARISON: There are no prior studies available for comparison at thistime. FINDINGS Bilateral feet x-rays AP lateral and oblique views. Bilaterally truncationof the distal phalangeal mc of most of the toes. Bilaterally no evidence of degenerative changes or inflammatoryarthropathy. No old or recent fractures dislocations or other changes. Bilateral hands AP lateral and oblique views. Bilaterally ulnar minusvariance. Bilaterally all the joints within the hand and the wrist arewithin normal limits except mild degenerative changes in some of the PIPand DIP joints with the narrowed joint space and no significant spurs. Left greater than right.No erosions suggestive of inflammatory arthropathy or inflammatoryosteoarthritis or other abnormalities LS-spine AP and lateral views upright. 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 No acute fractures dislocations or compression deformities L5-S1 milddegenerative changes. Facet joints within normal limits. Nospondyloarthropathy IMPRESSION: Bilateral feet no arthropathy no acute fractures dislocations Bilateral hands, mild degenerative changes left greater than right noevidence of inflammatory arthropathy LS-spine, no spondyloarthropathy or acute changes If this radiology report contains a blank impression section, it is anincomplete radiology report. Please contact the interpreting radiologistor applicable radiology division as soon as possible to obtain thecompleted interpretation. Workstation ID: [id number] [address] DO IMG XR PROCEDURES Final Result * XR Foot 3+ vw Left (05/20/2024 3:21 PM EST) Anatomical Region Laterality Modality Lower Extremities, Foot Left Computed Radiography 05/20/2024 3:41 PM EST Impressions 05/20/2024 3:47 PM EST Bilateral feet no arthropathy no acute fractures dislocations Bilateral hands, mild degenerative changes left greater than right no evidence of inflammatory arthropathy LS-spine, no spondyloarthropathy or acute changes If this radiology report contains a blank impression section, it is an incomplete radiology report. ??Please contact the interpreting radiologist or applicable radiology division as soon as possible to obtain the completed interpretation. ? Workstation ID: [id number] Narrative 05/20/2024 3:47 PM EST COMPARISON: ??There are no prior studies available for comparison at this time. ?? FINDINGS Bilateral feet x-rays AP lateral and oblique views. Bilaterally truncation of the distal phalangeal mc of most of the toes. Bilaterally no evidence of degenerative changes or inflammatory arthropathy. No old or recent fractures dislocations or other changes. Bilateral hands AP lateral and oblique views. Bilaterally ulnar minus variance. Bilaterally all the joints within the hand and the wrist are within normal limits except mild degenerative changes in some of the PIP and DIP joints with the narrowed joint space and no significant spurs. Left greater than right. No erosions suggestive of inflammatory arthropathy or inflammatory osteoarthritis or other abnormalities LS-spine AP and lateral views upright. 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 No acute fractures dislocations or compression deformities L5-S1 mild degenerative changes. Facet joints within normal limits. No spondyloarthropathy Resulting Agency Comment [id number] Procedure Note Saritha Fabian MD - 05/20/2024 COMPARISON: There are no prior studies available for comparison at thistime. FINDINGS Bilateral feet x-rays AP lateral and oblique views. Bilaterally truncationof the distal phalangeal mc of most of the toes. Bilaterally no evidence of degenerative changes or inflammatoryarthropathy. No old or recent fractures dislocations or other changes. Bilateral hands AP lateral and oblique views. Bilaterally ulnar minusvariance. Bilaterally all the joints within the hand and the wrist arewithin normal limits except mild degenerative changes in some of the PIPand DIP joints with the narrowed joint space and no significant spurs. Left greater than right.No erosions suggestive of inflammatory arthropathy or inflammatoryosteoarthritis or other abnormalities LS-spine AP and lateral views upright. 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 No acute fractures dislocations or compression deformities L5-S1 milddegenerative changes. Facet joints within normal limits. Nospondyloarthropathy IMPRESSION: Bilateral feet no arthropathy no acute fractures dislocations Bilateral hands, mild degenerative changes left greater than right noevidence of inflammatory arthropathy LS-spine, no spondyloarthropathy or acute changes If this radiology report contains a blank impression section, it is anincomplete radiology report. Please contact the interpreting radiologistor applicable radiology division as soon as possible to obtain thecompleted interpretation. Workstation ID: [id number] [address] DO IMG XR PROCEDURES Final Result * XR Hand 3+ vw Right (05/20/2024 3:21 PM EST) Anatomical Region Laterality Modality Upper Extremities, Hand Right Computed Radiography 05/20/2024 3:41 PM EST Impressions 05/20/2024 3:47 PM EST Bilateral feet no arthropathy no acute fractures dislocations Bilateral hands, mild degenerative changes left greater than right no evidence of inflammatory arthropathy LS-spine, no spondyloarthropathy or acute changes If this radiology report contains a blank impression section, it is an incomplete radiology report. ??Please contact the interpreting radiologist or applicable radiology division as soon as possible to obtain the completed interpretation. ? Workstation ID: [id number] Narrative 05/20/2024 3:47 PM EST COMPARISON: ??There are no prior studies available for comparison at this time. ?? FINDINGS Bilateral feet x-rays AP lateral and oblique views. Bilaterally truncation of the distal phalangeal mc of most of the toes. Bilaterally no evidence of degenerative changes or inflammatory arthropathy. No old or recent fractures dislocations or other changes. Bilateral hands AP lateral and oblique views. Bilaterally ulnar minus variance. Bilaterally all the joints within the hand and the wrist are within normal limits except mild degenerative changes in some of the PIP and DIP joints with the narrowed joint space and no significant spurs. Left greater than right. No erosions suggestive of inflammatory arthropathy or inflammatory osteoarthritis or other abnormalities LS-spine AP and lateral views upright. 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 No acute fractures dislocations or compression deformities L5-S1 mild degenerative changes. Facet joints within normal limits. No spondyloarthropathy Resulting Agency Comment [id number] Procedure Note Saritha Fabian MD - 05/20/2024 COMPARISON: There are no prior studies available for comparison at thistime. FINDINGS Bilateral feet x-rays AP lateral and oblique views. Bilaterally truncationof the distal phalangeal mc of most of the toes. Bilaterally no evidence of degenerative changes or inflammatoryarthropathy. No old or recent fractures dislocations or other changes. Bilateral hands AP lateral and oblique views. Bilaterally ulnar minusvariance. Bilaterally all the joints within the hand and the wrist arewithin normal limits except mild degenerative changes in some of the PIPand DIP joints with the narrowed joint space and no significant spurs. Left greater than right.No erosions suggestive of inflammatory arthropathy or inflammatoryosteoarthritis or other abnormalities LS-spine AP and lateral views upright. 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 No acute fractures dislocations or compression deformities L5-S1 milddegenerative changes. Facet joints within normal limits. Nospondyloarthropathy IMPRESSION: Bilateral feet no arthropathy no acute fractures dislocations Bilateral hands, mild degenerative changes left greater than right noevidence of inflammatory arthropathy LS-spine, no spondyloarthropathy or acute changes If this radiology report contains a blank impression section, it is anincomplete radiology report. Please contact the interpreting radiologistor applicable radiology division as soon as possible to obtain thecompleted interpretation. Workstation ID: [id number] [address] DO IMG XR PROCEDURES Final Result * XR Hand 3+ vw Left (05/20/2024 3:21 PM EST) Anatomical Region Laterality Modality Upper Extremities, Hand Left Computed Radiography 05/20/2024 3:41 PM EST Impressions 05/20/2024 3:47 PM EST Bilateral feet no arthropathy no acute fractures dislocations Bilateral hands, mild degenerative changes left greater than right no evidence of inflammatory arthropathy LS-spine, no spondyloarthropathy or acute changes If this radiology report contains a blank impression section, it is an incomplete radiology report. ??Please contact the interpreting radiologist or applicable radiology division as soon as possible to obtain the completed interpretation. ? Workstation ID: [id number] Narrative 05/20/2024 3:47 PM EST COMPARISON: ??There are no prior studies available for comparison at this time. ?? FINDINGS Bilateral feet x-rays AP lateral and oblique views. Bilaterally truncation of the distal phalangeal mc of most of the toes. Bilaterally no evidence of degenerative changes or inflammatory arthropathy. No old or recent fractures dislocations or other changes. Bilateral hands AP lateral and oblique views. Bilaterally ulnar minus variance. Bilaterally all the joints within the hand and the wrist are within normal limits except mild degenerative changes in some of the PIP and DIP joints with the narrowed joint space and no significant spurs. Left greater than right. No erosions suggestive of inflammatory arthropathy or inflammatory osteoarthritis or other abnormalities LS-spine AP and lateral views upright. 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 No acute fractures dislocations or compression deformities L5-S1 mild degenerative changes. Facet joints within normal limits. No spondyloarthropathy Resulting Agency Comment [id number] Procedure Note Saritha Fabian MD - 05/20/2024 COMPARISON: There are no prior studies available for comparison at thistime. FINDINGS Bilateral feet x-rays AP lateral and oblique views. Bilaterally truncationof the distal phalangeal mc of most of the toes. Bilaterally no evidence of degenerative changes or inflammatoryarthropathy. No old or recent fractures dislocations or other changes. Bilateral hands AP lateral and oblique views. Bilaterally ulnar minusvariance. Bilaterally all the joints within the hand and the wrist arewithin normal limits except mild degenerative changes in some of the PIPand DIP joints with the narrowed joint space and no significant spurs. Left greater than right.No erosions suggestive of inflammatory arthropathy or inflammatoryosteoarthritis or other abnormalities LS-spine AP and lateral views upright. 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 No acute fractures dislocations or compression deformities L5-S1 milddegenerative changes. Facet joints within normal limits. Nospondyloarthropathy IMPRESSION: Bilateral feet no arthropathy no acute fractures dislocations Bilateral hands, mild degenerative changes left greater than right noevidence of inflammatory arthropathy LS-spine, no spondyloarthropathy or acute changes If this radiology report contains a blank impression section, it is anincomplete radiology report. Please contact the interpreting radiologistor applicable radiology division as soon as possible to obtain thecompleted interpretation. Workstation ID: [id number] [address] DO IMG XR PROCEDURES Final Result * X-Ray Lumbar Spine 2 or 3 Views (05/20/2024 3:21 PM EST) Anatomical Region Laterality Modality Spine, L-spine Computed Radiogr aphy 05/20/2024 3:41 PM EST Impressions 05/20/2024 3:47 PM EST Bilateral feet no arthropathy no acute fractures dislocations Bilateral hands, mild degenerative changes left greater than right no evidence of inflammatory arthropathy LS-spine, no spondyloarthropathy or acute changes If this radiology report contains a blank impression section, it is an incomplete radiology report. ??Please contact the interpreting radiologist or applicable radiology division as soon as possible to obtain the completed interpretation. ? Workstation ID: [id number] Narrative 05/20/2024 3:47 PM EST COMPARISON: ??There are no prior studies available for comparison at this time. ?? FINDINGS Bilateral feet x-rays AP lateral and oblique views. Bilaterally truncation of the distal phalangeal mc of most of the toes. Bilaterally no evidence of degenerative changes or inflammatory arthropathy. No old or recent fractures dislocations or other changes. Bilateral hands AP lateral and oblique views. Bilaterally ulnar minus variance. Bilaterally all the joints within the hand and the wrist are within normal limits except mild degenerative changes in some of the PIP and DIP joints with the narrowed joint space and no significant spurs. Left greater than right. No erosions suggestive of inflammatory arthropathy or inflammatory osteoarthritis or other abnormalities LS-spine AP and lateral views upright. 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 No acute fractures dislocations or compression deformities L5-S1 mild degenerative changes. Facet joints within normal limits. No spondyloarthropathy Resulting Agency Comment [id number] Procedure Note Saritha Fabian MD - 05/20/2024 COMPARISON: There are no prior studies available for comparison at thistime. FINDINGS Bilateral feet x-rays AP lateral and oblique views. Bilaterally truncationof the distal phalangeal mc of most of the toes. Bilaterally no evidence of degenerative changes or inflammatoryarthropathy. No old or recent fractures dislocations or other changes. Bilateral hands AP lateral and oblique views. Bilaterally ulnar minusvariance. Bilaterally all the joints within the hand and the wrist arewithin normal limits except mild degenerative changes in some of the PIPand DIP joints with the narrowed joint space and no significant spurs. Left greater than right.No erosions suggestive of inflammatory arthropathy or inflammatoryosteoarthritis or other abnormalities LS-spine AP and lateral views upright. 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 No acute fractures dislocations or compression deformities L5-S1 milddegenerative changes. Facet joints within normal limits. Nospondyloarthropathy IMPRESSION: Bilateral feet no arthropathy no acute fractures dislocations Bilateral hands, mild degenerative changes left greater than right noevidence of inflammatory arthropathy LS-spine, no spondyloarthropathy or acute changes If this radiology report contains a blank impression section, it is anincomplete radiology report. Please contact the interpreting radiologistor applicable radiology division as soon as possible to obtain thecompleted interpretation. Workstation ID: [id number] [address] DO IMG XR PROCEDURES Final Result from Last 3 Months Insurance [facility] Care Teams Assessment Counselor Relationship Specialty Start Date End Date Petra Wiley [address] [place] [id number] PCP - General Family Medicine 03/19/24
--- OUTSIDE RECORDS SUMMARY | 2024-07-30 14:03 | XMS_ITS | Encounter Summary ---
Author Organization [facility] Address [address] [place] [address] Care Team Providers Care Cardiac Care Unit Nurse Name Role Phone Petra Wiley Primary Care Provider [phone] Reason for Referral * Surgical (Routine) - Pending Review Specialty Diagnoses / Procedures Referred By Mehreen linares Referred To Contact General Surgery Diagnoses Subcutaneous mass of right upper extremity Subcutaneous mass of abdominal wall [facility] Physician Referral Services [address] [place] [id number] [facility] [address] [place] [address] Phone: tel: fax: Referral ID Status Reason Start Date Expiration Date Visits Requested Visits Authorized [id number] Pending Review Specialty Services Required 06/26/2024 12/26/2025 6 6 Encounter Details Date Type Department Care Team (Latest Contact Info) Description 06/26/2024 Transcribe Orders [facility] Physician Referral Services [address] [place] [address] Petra Wiley [address] [place] [address] Subcutaneous mass of right upper extremity (Primary Dx); Subcutaneous mass of abdominal wall Social History Tobacco Use Types Packs/Day Years Used Date Smoking Tobacco: Never Smokeless Tobacco: Never Comments Unknown Sex and Gender Information Value Date Recorded Sex Assigned at Female 05/20/2024 3:27 PM EST Legal Sex Female 2:51 PM EDT Gender Identity Not on file Sexual Orientation Not on file documented as of this encounter Plan of Treatment Upcoming Encounters Date Type Department Care Team (Late st Contact Info) Description 11/11/2024 12:00 PM EDT Office Visit [facility] Rheumatology Clinic [address] [place] [address] Parcel Post Carrier: Newton Rangel DO [address] [facility] [place] [address] Scheduled Referrals Name Type Priority Associated Diagnoses Order Schedule Ambulatory referral to General Surgery Outpatient Referral Routine Subcutaneous mass of right upper extremity Subcutaneous mass of abdominal wall Expected: 06/26/2024, Expires: 12/24/2024 documented as of this encounter Visit Diagnoses Diagnosis Subcutaneous mass of right upper extremity- Primary Subcutaneous mass of abdominal wall documented in this encounter Care Teams Cardiac Care Unit Nurse Relationship Specialty Start Date End Date Petra Wiley [address] [place] [address] PCP - General Family Medicine 03/19/24 documented as of this encounter
--- OUTSIDE RECORDS SUMMARY | 2024-07-30 14:03 | XMS_ITS | Encounter Summary ---
Author Organization [employer] Address [address] [facility] [address] [place] [address] Care Team Providers Care Ultrasonic Tester Name Role Phone Jennie Murray MD Primary Care Provider Petra Wiley Primary Care Provider [phone] Willard Waters Unavailable [phone] September Unavailable Juan Sandra MD Unavailable [phone] Brigid Guy NP Unavailable Vicente Mooney MD Unavailable Beth Rai MD Unavailable Michell Espinoza Unavailable Reason for Visit * Reason Onset Date Comments Appointment Request 12/25/2023 Encounter Details Date Type Department Care Team (Late st Contact Info) Description 12/25/2023 Telephone [facility] MEDICINE [address] [place] [address] Jennie Murray MD [address] [place], [place] [phone] Appointment Request Social History Tobacco Use Types Packs/Day Years Used Date Smoking Tobacco: Never Passive Smoke Exposure: Never Smokeless Tobacco: Never Alcohol Use Standard Drinks/Week Comments Never 0 (1 standard drink = 0.6 oz pur e alcohol) Depression Answer Date Recorded Patient Health Questionnaire-9 Score 0 07/04/2022 Housing Stability Answer Date Recorded What is your housing situation today? I have candido martinez 04/16/[address] you li ve. Do you have problems with any of the following? None of the above 04/16/2023 Food Insecurity Answer Date Recorded Within the past 12 months, y ou worried that your food would run out before you got money to buy more: Never True 04/16/2023 Within the past 12 months,th e food you bought just didn't last and you didn't have enough money to get more: Never True Transportation Answer Date Recorded In the past 12 months, has l ack of transportation kept you from medical appts, meetings, work or from getting things needed for daily living? No 04/16/2023 Utilities Answer Date Recorded In the past 12 months, has t he electric, gas, oil or water company threatened to shut off services in your home? No 04/16/2023 Depression Answer Date Recorded Patient Health Questionnaire-2 Score 2 06/03/2023 Comments No Sex and Gender Information Value Date Recorded Sex Assigned at Female 04/16/2022 10:20 AM EDT Legal Sex Female 10:20 AM EDT Gender Identity Female 04/16/2022 10:20 AM EDT Sexual Orientation Straight 04/16/2022 10 :20 AM EDT documented as of this encounter Miscellaneous Notes * Telephone Encounter - Danyel Dominguez - 12/25/2023 1:07 PM EDT Tc from Patrice, care team coordinator scheduler with [facility], calling to schedule appt for pt. Pt is awaiting transfer pt appt with Dr. Wiley in which underwriter mortgage loan attempted to schedule but found no availability. Please contact Patrice at [phone]. documented in this encounter Plan of Treatment Upcoming Encounters Date Type Department Care Team (Late st Contact Info) Description 08/04/2024 2:30 PM EST Office Visit [facility] OPTOMETRY [address] [place], [place] [phone] Cristine Alan, OD [address] [place], [place] [phone] 08/14/2024 1:30 PM EST Clinical Support [facility] DIABETES/NUTRITION [address], [place] [phone] Tamanna Mcintyre, RD [address] [place] [address] 08/18/2024 1:30 PM EST Office Visit [facility] ADULT DENTAL [address] [place] [address] Venkat Barreto, DDS [address] [place] [address] 11/04/2024 11:15 AM EDT Office Visit [facility] MEDICINE [address] [place] [address] Petra Wiley FNP [address] [place] [address] 01/18/2025 3:00 PM EDT Office Visit [facility] AD[facility] D[facility]AL [address] [place] [address] Sanaz Nelson documented as of this encounter Visit Diagnoses Not on filedocumented in this encounter Additional Health Concerns Assessment Noted Time PHQ-9 Depression Total Score: 0 07/04/19 23 3:01 PM EST documented as of this encounter Care Teams Ultrasonic Tester Relationship Specialty Start Date End Date Jennie Murray MD [address] [place] [address] PCP - General Family Medicine 06/23/13 03/16/24 Petra Wiley FNP [address] [place] [address] PCP - General Family Medicine 03/17/24 Willard Waters [address] [place] [address] Rheumatology 05/17/24 Sumaya Kessler [address] [place] [address] Gastroenterology 05/17/24 Juan Sandra MD [address] [place] [address] Hematology and Oncology 05/17/24 Brigid Guy NP [address] [place] [address] Urology 05/17/24 Vicente Mooney MD [address] [place] [address] Obstetrics and Gynecology 05/17/24 Beth Rai MD [address] [place] [address] [place] [address] Neurology 05/17/24 Michell Espinoza [address] [facility] 3rd [place] [address] Cardiology 05/17/24 [facility] Swatch ClerkSenior Oracle Dba 09/26/23 documented as of this encounter
--- OUTSIDE RECORDS SUMMARY | 2024-07-30 14:03 | XMS_ITS | Encounter Summary ---
Author Organization [employer] Address [address] [facility] 7t [place] [address] Care Team Providers Care New Accounts Representative Name Role Phone Petra Wiley HVAC DESIGNER Primary Care Provider [phone] Willard Waters Unavailable [phone] September Unavailable Juan Sandra MD Unavailable [phone] Brigid Guy NP Unavailable Vicente Mooney MD Unavailable Beth Rai MD Unavailable Michell Espinoza Unavailable Encounter Details Date Type Department Care Team (Latest Contact Info) Description 07/28/2024 1:30 PM EST Clinical Support [facility] DIABETES/NUTRITION [address] [place], [place] [phone] Tamanna Mcintyre, ANGELINA [address] [place], [place] [phone] BMI 35.0-35.9,adult (Primary Dx) Social History Tobacco Use Types Packs/Day Years Used Date Smoking Tobacco: Never Passive Smoke Exposure: Never Smokeless Tobacco: Never Alcohol Use Standard Drinks/Week Comments Never 0 (1 standard drink = 0.6 oz pur e alcohol) Depression Answer Date Recorded Patient Health Questionnaire-9 Score 13 03/16/2024 Patient Health Questionnaire-9 Score 13 03/16/2024 Last PHQ-9: Questionnaire Data Not on file 0 03/16/2024 Housing Stability Answer Date Recorded What is [...] to shut off services in your home? I am not sure 03/16/2024 Depression Answer Date Recorded Patient Health Questionnaire-2 Score 2 03/16/2024 Internet Access Answer Date Recorded Internet Access Q1 Yes 03/09/2024 Internet Access Q2 Not on file 03/09/2024 Comments No Sex and Gender Information Value Date Recorded Sex Assigned at Female 04/16/2022 10:20 AM EDT Legal Sex Female 10:20 AM EDT Gender Identity Female 04/16/2022 10:20 AM EDT Sexual Orientation Straight 04/16/2022 10 :20 AM EDT documented as of this encounter Progress Notes * Tamanna Mcintyre, ANGELINA - 07/28/2024 1:30 PM EST In Person Visit Medical Diagnosis: Z68.35 BMI 35.0 - 35.9 BMI 35.0-35.9,adult Anthropometrics: On 07/10/2024, Ht:4' 11 (1.499 m), Wt:165 lb 3.2 oz (74.9 kg), BMI: Body mass index is 33.37 kg/m??. Assessment: Patient (Pt) accepted nutrition education assessment appointment with ANGELINA. Pt was late today for her appointment by 10+ minutes. RD used today 07/10/2024 weight. Pt came in today's visit still under the weather- having a sty infection in her left eye. She was given anti-biotics and has been take them for at least a day. Pt didn't want to miss at least asking RD a few questions even though today was for the beginning of the second half of First appointment. RD asked questions Pt had. Pt then showed RD pictures of the meals she has been eating. Pt wanted to show RD the proof of her intake meals. Pt reported to RD that she no long feels nauseous. Pt is taking a enzyme capsule from [employer] at each meal. In addition, Pt is also taking as suggested by RD, one Plus capsule as well. RD good to hear that Pt is doing better and eating well while being able to hold down what she ate.Even being sick with her infected eye, Pt told RD that she is feeling much better. RD happy to hearthis. See below in Pt's dietary intake. Pt is doing much better with her foods now. RD advised for Pt to go home and rest. Pt said she will. A second half/ follow up appointment is scheduled in last week of July 2024. Food Allergies: NKFA Exercise: not at all Food Intolerance: Was not talked about today. Food Preferences: Was not talked about today. Food Dislikes: Was not talked about today. Frequency of Eating Out/ Restaurant: Didn't say Who Cooks?: Didn't say How much caffeine?: denies use How much sugary beverages?: Pt has been drinking water and sugar free beverages. Diet History: Breakfast: Eg Avocado: one whole Water/ Ice beverage: 1/2 - 1 cup Pinch of sea salt in beverages Snack: Eg-2 Water/ Ice beverage: 1/2 - 1 cup Lunch: Baked chicken: 4 oz. Fresh salad: 1 cup EVOO: 1 tablespoon Ve/2 cup Water/ Ice beverage: 1/2 - 1 cup Snack: Water/ Ice beverage: 1/2 - 1 cup Dinner: Water/ Ice beverage: 1/2 - 1 cup Tuna with boiled egg and mayonnaise: 3-4 oz. Taye lettuce leaves: 2-3 Snack: Water/ Ice beverage: 1/2 - 1 cup Nutrition Diagnosis: 1st half of First appointment was done today. When the 2nd half of First appointment is finished/ done, this area will be filled in. Nutrition Intervention: Continue to follow meal plan as of now as given and suggested by RD. Pt agreed to do this. Monitoring and Evaluation: Indicator Criteria Adherence frequency of eating, portion controls, carbohydrate exchanges, protein intake Meal plan & beverage Salt added into water/ beverage, digestive enzymes Provider: Tamanna Mcintyre RD, LDN documented in this encounter Plan of Treatment Upcoming Encounters Date Type Department Care Team (Late st Contact Info) Description 08/04/2024 2:30 PM EST Office Visit [facility] OPTOMETRY [address] [place] [address] Waqas, Cristine, OD [address] [place] [address] 08/14/2024 1:30 PM EST Clinical Support [facility] DIABETES[facility]NUTRITION [address] [place] [address] [place] [address] 08/18/2024 1:30 PM EST Office Visit [facility] ADULT DENTAL [address] [place] [address] Venkat Barreto, DDS [address] [place] [address] 11/04/2024 11:15 AM EDT Office Visit [facility] MEDICINE [address] [place] [address] Petra Wiley FNP 505 [place] [address] 01/18/2025 3:00 PM EDT Office Visit [facility] ADULT DENTAL [address] [place] [address] Sanaz Nelson documented as of this encounter Visit Diagnoses Diagnosis BMI 35.0-35.9,adult- Primary documented in this encounter Additional Health Concerns Assessment Noted Time PHQ-9 Depression Total Score: 13 03/16/ 024 3:11 PM EDT documented as of this encounter Care Teams New Accounts Representative Relationship Specialty Start Date End Date Petra Wiley FNP [address] [place] [address] PCP - General Family Medicine 03/17/24 Willard Waters [facility] [address] [place], [place] Rheumatology 05/17/24 Sumaya Kessler [address] 3rd [place] [address] Gastroenterology 05/17/24 Juan Sandra MD [address] [place] [address] Hematology and Oncology 05/17/24 Brigid Guy NP [address] [place] [address] Urology 05/17/24 Vicente Mooney MD [address] [place] [address] [address] [place] [address] Obstetrics and Gynecology 05/17/24 Beth Rai MD [address] [place] [address] [place] [address] Neurology 05/17/24 Michell Espinoza [address] [facility] 3rd [place] [address] Cardiology 05/17/24 Shelia Zheng Glass Loading Equipment TenderLock Tender 09/26/23 documented as of this encounter
--- OUTSIDE RECORDS SUMMARY | 2024-07-30 14:03 | XMS_ITS | Encounter Summary ---
Author Organization [employer] Address [address] [facility] 7t [place] [address] Care Team Providers Care Government Instructor Name Role Phone Jennie Murray MD Primary Care Provider [phone] Petra Wiley Primary Care Provider Willard Waters Unavailable [phone] September Unavailable Juan Sandra MD Unavailable [phone] Brigid Guy NP Unavailable Vicente Mooney MD Unavailable Beth Rai MD Unavailable Michell Espinoza Unavailable Encounter Details Date Type Department Care Team (Latest Contact Info) Description 09/03/2018 Abstract [facility] CONVERSIONS Dental, Provider, DDS Social History Tobacco Use Types Packs/Day Years Used Date Smoking Tobacco: Never Assessed Comments Unknown Sex and Gender Information Value Date Recorded Sex Assigned at Female 04/16/2022 10:20 AM EDT Legal Sex Female 10:20 AM EDT Gender Identity Female 04/16/2022 10:20 AM EDT Sexual Orientation Straight 04/16/2022 10 :20 AM EDT documented as of this encounter Plan of Treatment Upcoming Encounters Date Type Department Care Team (Late st Contact Info) Description 08/04/2024 2:30 PM EST Office Visit [facility] OPTOMETRY [address] [place] [address] Cristine Alan, OD [address] [place], [place] [phone] 08/14/2024 1:30 PM EST Clinical Support [facility] DIABETES/NUTRITION [address] [place] [address] Tamanna Mcintyre, RD 230 [place] [address] 08/18/2024 1:30 PM EST Office Visit [facility] ADULT DENTAL [address] [place] [address] Venkat Barreto, DDS 230 [place] [address] 11/04/2024 11:15 AM EDT Office Visit [facility] MEDICINE [address] [place] [address] Petra Wiley FNP 505 [place] [address] 01/18/2025 3:00 PM EDT Office Visit [facility] ADULT DENTAL 505 [place] [address] Sanaz Nelson documented as of this encounter Visit Diagnoses Not on filedocumented in this encounter Care Teams Government Instructor Relationship Specialty Start Date End Date Jennie Murray MD [address] [place] [address] PCP - General Family Medicine 06/23/13 03/16/24 Petra Wiley FNP [address] [place] [address] PCP - General Family Medicine 03/17/24 Willard Waters [address] [place] [address] Rheumatology 05/17/24 Sumaya Kessler [address] 3rd [place] [address] Gastroenterology 05/17/24 Juan Sandra MD [address] [place] [address] Hematology and Oncology 05/17/24 Brigid Guy NP [address] [place] [address] Urology 05/17/24 Vicente Mooney MD [address] [place] [address] [address] [place] [address] Obstetrics and Gynecology 05/17/24 Beth Rai MD [address] [place] [address] [place] [address] Neurology 05/17/24 Michell Espinoza 11 [facility] 3rd [place] [address] Cardiology 05/17/24 Shelia Zheng Globe ChangerSecurities Attorney 09/26/23 documented as of this encounter
--- OUTSIDE RECORDS SUMMARY | 2024-07-30 14:03 | XMS_ITS | Encounter Summary ---
Author Organization [employer] Address 75 [facility] 7t [place] [address] Care Team Providers Care Service Department Manager Name Role Phone Jennie Murray MD Primary Care Provider Petra Wiley Primary Care Provider [phone] Willard Waters Unavailable [phone] September Unavailable Juan Sandra MD Unavailable [phone] Brigid Guy NP Unavailable Vicente Mooney MD Unavailable Beth Rai MD Unavailable Michell Espinoza Unavailable Encounter Details Date Type Department Care Team (Latest Contact Info) Description 09/12/2020 Abstract [facility] CONVERSIONS Dental, Provider, DDS Social History [...] Description 08/04/2024 2:30 PM EST Office Visit [facility] OPTOMETRY [address] [place] [address] Cristine Alan, OD 230 [place], [place] [phone] 08/14/2024 1:30 PM EST Clinical Support [facility] DIABETES/NUTRITION 230 [place] [address] Tamanna Mcintyre, RD 230 [place] [address] 08/18/2024 1:30 PM EST Office Visit [facility] ADULT DENTAL 230 [place] [address] Venkat Barreto, DDS 230 [place] [address] 11/04/2024 11:15 AM EDT Office Visit [facility] MEDICINE 230 [place] [address] Petra Wiley FNP 505 [place] [address] 01/18/2025 3:00 PM EDT Office Visit [facility] ADULT DENTAL 505 [place] [address] Sanaz Nelson documented as of this encounter Visit Diagnoses Not on filedocumented in this encounter Care Teams Service Department Manager Relationship Specialty Start Date End Date Jennie Murray MD [address] [place] [address] PCP - General Family Medicine 06/23/13 03/16/24 Petra Wiley FNP [address] [place] [address] PCP - General Family Medicine 03/17/24 Willard Waters [address] [place] [address] Rheumatology 05/17/24 Victoria Sumaya [address] 3rd [place] [address] Gastroenterology 05/17/24 Juan Sandra MD 575 [place] [address] Hematology and Oncology 05/17/24 Brigid Guy NP [address] [place] [address] Urology 05/17/24 Vicente Mooney MD [address] [place] [address] [address] [place] [address] Obstetrics and Gynecology 05/17/24 Beth Rai MD [address] [place] [address] [place] [address] Neurology 05/17/24 Michell Espinoza 11 [facility] 3rd [place] [address] Cardiology 05/17/24 Shelia Zheng Senior Storage EngineerTree Trimmer Helper 09/26/23 documented as of this encounter
--- OUTSIDE RECORDS SUMMARY | 2024-07-30 14:03 | XMS_ITS | Encounter Summary ---
Author Organization [employer] Address 75 [facility] 7t [place] [address] Care Team Providers Care Violin Repairer Name Role Phone Petra Wiley Primary Care Provider Willard Waters Unavailable [phone] KesslerSeptember Unavailable Juan Sandra MD Unavailable [phone] Brigid Guy NP Unavailable Vicente Mooney MD Unavailable Beth Rai MD Unavailable Michell Espinoza Unavailable Encounter Details Date Type Department Care Team (Late st Contact Info) Description 05/01/2024 Patient Outreach [facility] MEDICINE 230 [place] [address] Petra Wiley FNP [address] [place], [place] [phone] Social History Tobacco Use Types Packs/Day Years [...] Office Visit [facility] OPTOMETRY [address] [place] [address] Awqas, Cristine, OD 230 [place] [address] 08/14/2024 1:30 PM EST Clinical Support [facility] DIABETES/NUTRITION [address] [place] [address] [place] [address] 08/18/2024 1:30 PM EST Office Visit [facility] ADULT DENTAL 230 [place] [address] Venkat Barreto DDS 230 [place] [address] 11/04/2024 11:15 AM EDT Office Visit [facility] MEDICINE [address] [place] [address] Petra Wiley FNP 505 [place] [address] 01/18/2025 3:00 PM EDT Office Visit [facility] ADULT DENTAL 505 [place] [address] Sanaz Nelson documented as of this encounter Visit Diagnoses Not on filedocumented in this encounter Additional Health Concerns Assessment Noted Time PHQ-9 Depression Total Score: 13 03/16/ 024 3:11 PM EDT documented as of this encounter Care Teams Violin Repairer Relationship Specialty Start Date End Date Petra Wiley FNP [address] [place] [address] PCP - General Family Medicine 03/17/24 Willard Waters [address] [place] [address] Rheumatology 05/17/24 Victoria Sumaya [address] 3rd [place] [address] Gastroenterology 05/17/24 Juan Sandra MD [address] [place] [address] Hematology and Oncology 05/17/24 Brigid Guy NP [address] [place] [address] Urology 05/17/24 Vicente Mooney MD [address] [place] [address] [address] [place] [address] Obstetrics and Gynecology 05/17/24 Beth Rai MD [address] [place] [address] [address] [place] [address] Neurology 05/17/24 Michell Espinoza [address] [facility] 3rd [place] [address] Cardiology 05/17/24 Shelia Zheng Finish PatcherPrep Room Supervisor 09/26/23 documented as of this encounter
--- OUTSIDE RECORDS SUMMARY | 2024-07-30 14:03 | XMS_ITS | Encounter Summary ---
Author Organization [employer] Address 75 [facility] 7t [place] [address] Care Team Providers Care Associate Buyer Name Role Phone Petra Wiley NIC Primary Care Provider Willard Waters Unavailable [phone] September Unavailable Juan Sandra MD Unavailable [phone] Brigid Guy NP Unavailable Vicente Mooney MD Unavailable Beth Rai MD Unavailable Michell Espinoza Unavailable Reason for Visit * Reason Comments Dental Pain Upper left side Encounter Details Date Type Department Care Team (Late st Contact Info) Description 07/24/2024 2:30 PM EST Office Visit [facility] ADULT DENTAL [address] [place], [place] [phone] Venkat Barreto DDS [address] [place], [place] [phone] Social History Tobacco Use Types Packs/Day Years [...] as of this encounter Progress Notes * Venkat Barreto DDS - 07/24/2024 2:30 PM EST Dental procedures in this visit D0140 - LIMITED ORAL EVALUATION - PROBLEM FOCUSED (Completed) Service provider: Venkat Barreto DDS Billing provider: Venkat Barreto DDS D0220 - INTRAORAL - PERIAPICAL FIRST RADIOGRAPHIC IMAGE (Completed) Service provider: Venkat Barreto DDS Billing provider: Venkat Barreto DDS [id number] - ADJUNCTIVE GENERAL SERVICES - PROFESSIONAL VISITS - CASE PRESENTATION, SUBSEQUENT TO DETAILED AND EXTENSIVE TREATMENT PLANNING (Completed) Service provider: Venkat aBrreto DDS Billing provider: Venkat Barreto DDS Patient ID: Ambika Anaya is a 39 y.o. female. Time Out: No data recorded Location: [facility] Tooth: #14 Procedure: Exam Verified the above with patient, farm assistant, and provider. Confirmed via patient's chart, intraorally and by radiographs. Cryptography Teacher: not applicable Chief Complaint Patient presents with Dental Pain Upper left side Medical Hx: Vitals: There were no vitals taken for this visit. Past Medical History: Diagnosis Date Anemia Anxiety Bleeding gums Depression Depression Fibromyalgia Fibromyalgia Lupus Neck pain 03/12/2024 Nervousness Polyarthralgia 03/12/2024 Sleep apnea, obstructive Stomach problems Tachycardia Medications: Outpatient Encounter Medications as of 07/24/2024 Medication Sig Dispense Refill acetaminophen (Tylenol) 500 MG tablet take 1 tablet by oral route every 8 hours as needed not to exceed 6 tablets per 24hrs albuterol 108 (90 Base) MCG/ACT inhaler Inhale 2 puffs Every 4-6 hours as needed for wheezing or shortness of breath. 18 g 11 Azelastine HCl 137 MCG/SPRAY solution ADMINISTER 1 SPRAY EACH NOSTRIL IF NEEDED IN THE MORNING AND AT BEDTIME FOR RHINITIS OR ALLERGIES. 30 mL 3 Banophen 25 MG capsule PLEASE SEE ATTACHED FOR DETAILED DIRECTIONS Bisacodyl EC 5 MG EC tablet TAKE 2 TABLETS ORALLY BEDTIME FOR 30 DAYS Blood Pressure kit 1 each 2 times daily. 1 kit 0 gllpienlia-dpwkukdthmwal-jheailwm 50-325-40 MG tablet TOME ADRY TABLETA CADA OCHO HORAS CUANDO SEA NECESARIO FOR 30 DAYS cephalexin (Keflex) 500 MG capsule Take 1 capsule (500 mg) by mouth 3 times daily for 7 days. 21 capsule 0 cholecalciferol (Vitamin D-3) 25 MCG (1000 UT) tablet Take 1 tablet (25 mcg) by mouth Once per day.90 tablet 1 Creon [id number] units capsule delayed-release particles capsule TOME ADRY C PSULA MINDA VECES AL DA WITH MEALS/SNACKS cyclobenzaprine (Flexeril) 5 MG tablet Take 1 tablet (5 mg) by mouth 3 times daily for 10 days. 30 tablet [address] capsule Take 1 capsule (60 mg) by mouth Once per day. Do not crush or chew. 90 capsule 0 dicyclomine (Bentyl) 10 MG capsule TOME ADRY C PSULA MINDA VECES AL D A famotidine (Pepcid) 40 MG tablet TOME ADRY TABLETA POR V A ORAL TODOS LOS D AL ACOSTARSE ferrous gluconate (Fergon) 324 (38 Fe) MG tablet TAKE 1 PILL EVERY SATURDAY, SATURDAY, AND SATURDAY. TAKE WITH A FULL GLASS OF WATER OR VIT C CONTAINING JUICE, AND IDEALLY 1 HOUR BEFORE A MEALOR 2 HOURS AFTER A MEAL 36 tablet 0 fexofenadine (Gretchen) 180 MG tablet Take 1 tablet (180 mg) by mouth Once per day. 90 tablet 3 [] fluconazole (Diflucan) 150 MG tablet Take 1 tablet (150 mg) by mouth 1 (one) time for 1 dose. 1 tablet 0 fluticasone furoate (Arnuity Ellipta) 100 MCG/ACT inhaler Inhale 1 puff Once per day. Rinse mouth with water after use to reduce aftertaste and incidence of candidiasis. Do not swallow. 1 each 11 LORazepam (Ativan) 1 MG tablet TAKE 1/2 TABLET BY MOUTH IN THE MORNING AND 1 TABLET AT BEDTIME DIRECTED methocarbamol (Robaxin) 750 MG tablet Take 1 tablet (750 mg) by mouth 4 times daily for 10 days. 40tablet 0 pregabalin (Lyrica) 50 MG capsule Take 1 capsule (50 mg) by mouth at bedtime. 30 capsule 3 propranolol (Inderal) 20 MG tablet TAKE 1 TABLET BY MOUTH 2 TIMES A DAY FOR 30 DAYS FOR HEART PALPITATION Simethicone Ultra Strength 180 MG capsule TAKE 1 CAPSULE ORALLY 2 TIMES A DAY FOR 30 DAYS AFTER MEALS Sodium Fluoride (PreviDent 5000 Booster Plus) 1.1 % paste Apply a smear of paste on the brush; brush thoroughly twice daily. Spit, do not rinse. 112 g 2 Tirzepatide 2.5 MG/0.5ML solution auto-injector Inject 2.5 mg under the skin 1 (one) time per week.2 mL 2 No facility-administered encounter medications on file as of 07/24/2024. Subjective: Pain: No pain; swollen lower eye lid on the left side. Walk in center nurse suspected that the swelling might be because of an infected tooth. Duration: 2 days Objective: Tooth: #14 Radiographs Taken: PA(s) Radiographic Findings: Large radiopacities suggestive of deep restorations. Clinical Findings: Lower eye lid of the left eye is swollen. Patient mentioned about a feeling of pressure in the left side of the face in the area of #14 and #15 two days ago. Swelling: Swelling of the lower eye lid of the left eye. Endo Testing: Cold: Hypersensitive, lingering Percussion: Pain Palpation: Normal, no pain Perio: WNL Other Findings: N/A Diagnosis: Asmptomatic Irreversible pulpitis Assessment/Plan: RCT, Post and Core, [place] Prescriptions: Augmentin Pt tolerated procedure well, all questions answered. Dismissed in good condition. NV: RCT #14 Business Practices Supervisor: Whit La Dentist: Venkat Barreto DDS documented in this encounter Plan of Treatment Upcoming Encounters Date Type Department Care Team (Late st Contact Info) Description 08/04/2024 2:30 PM EST Office Visit [facility] OPTOMETRY [address] [place] [address] Waqas, Cristine, OD 230 [place] [address] 08/14/2024 1:30 PM EST Clinical Support [facility] DIABETES/NUTRITION [address] [place] [address] Tamanna Mcintyre, RD 230 [place] [address] 08/18/2024 1:30 PM EST Office Visit [facility] ADULT DENTAL [address] [place] [address] Venkat Barreto DDS [address] [place] [address] 11/04/2024 11:15 AM EDT Office Visit [facility] MEDICINE [address] [place] [address] Petra Wiley FNP 505 [place] [address] 01/18/2025 3:00 PM EDT Office Visit [facility] ADULT DENTAL [address] [place] [address] Sanaz Nelson documented as of this encounter Procedures Procedure Name Priority Date/Time Associated Diagnosis Comments LIMITED ORAL EVALUATION - PROBLEM FOCUSED Routine 07/24/2024 2:30 PM EST INTRAORAL - PERIAPICAL FIRST RADIOGRAPHIC IMAGE Routine 07/24/2024 2:30 PM EST CASE PRESENTATION, DETAILED AND EXTENSIVE TREATMENT PLANNING Routine 07/24/2024 2:30 PM EST documented in this encounter Visit Diagnoses Not on filedocumented in this encounter Additional Health Concerns Assessment Noted Time PHQ-9 Depression Total Score: 13 2 024 3:11 PM EDT documented as of this encounter Care Teams Associate Buyer Relationship Specialty Start Date End Date Petra Wiley FNP [address] [place] [address] PCP - General Family Medicine 03/17/24 Willard Waters [address] [place] [address] Rheumatology 05/17/24 Victoria Sumaya [address] [place] [address] Gastroenterology 05/17/24 Juan Sandra MD [address] [place] [address] Hematology and Oncology 05/17/24 Brigid Guy NP [address] [facility] [address] [place] [address] Urology 05/17/24 Vicente Mooney MD [address] [place] [address] [address] [place] [address] Obstetrics and Gynecology 05/17/24 Beth Rai MD [address] [place] [address] [address] [place] [address] Neurology 05/17/24 Michell Espinoza [address] [place] [address] Cardiology 05/17/24 Shelia Zheng Manager ShiftRevolving Inventory Clerk 09/26/23 documented as of this encounter
--- OUTSIDE RECORDS SUMMARY | 2024-07-30 14:03 | XMS_ITS | Encounter Summary ---
Author Organization [facility] Address [address] [facility] [address] [place] [address] Care Team Providers Care Field Merchandiser Name Role Phone Petra Wiley NIC Primary Care Provider Willard Waters Unavailable [phone] September Unavailable Juan Sandra MD Unavailable [phone] Brigid Guy NP Unavailable Vicente Mooney MD Unavailable Beth Rai MD Unavailable Michell Espinoza Unavailable Reason for Visit * Reason Comments Eye Problem Encounter Details Date Type Department Care Team (Late st Contact Info) Description 07/24/2024 2:00 PM EST Office Visit [facility] WALK[facility]IN [facility]ENTER [address] [place], [place] [id number] Sylvia Lemons MD [address] [place], [place] [phone] Hordeolum externum of left lower eyelid (Primary Dx) Social History Tobacco Use Types [...] your housing situation today? I have candido sing 04/16/[address] you li [...] AM EDT documented as of this encounter Last Filed Vital Signs Vital Sign Reading Time Taken Comments Blood Pressure 136/80 07/24/2024 1:46 PM EST Pulse 86 07/24/2024 1:46 PM EST Temperature 37.1 ??C (98.8 ??F) 07/24/2024 1:46 PM ES T Respiratory Rate 18 07/24/2024 1:46 PM EST Oxygen Saturation 100% 07/24/2024 1:46 PM EST Inhaled Oxygen Concentration - - Weight 74.4 kg (164 lb) 07/24/2024 1:46 PM EST Height 149.9 cm (4' 11 ) 07/24/2024 1:46 PM EST Body Mass Index 33.12 07/24/2024 1:46 PM EST documented in this encounter Progress Notes * Sylvia eLmons MD - 07/24/2024 2:00 PM EST SUBJECTIVE: Ambika Anaya is a 39 y.o. year old female who presents for acute visit. Denies recent illness, ER visit, or hospitalization. Acute Concerns: Ambika is concerned that she has swelling under her L eye, pain x 2days. She has pain with touching around her eye and some blurry vision. Is using drops for dry eyes with some relief. She takes Lyrica and Relafen for fibromyalgia and this is helpful. She has been to the dentist twice in the past two weeks for infection and cleaning and wonders if this is how she got sick. She notes that if she is going to have antibiotics, she also needs a pill for vaginal yeast. Patient Active Problem List Diagnosis Fibromyalgia Healthcare maintenance Asthma Gastroesophageal reflux disease without esophagitis Irritable bowel syndrome with constipation Dysphagia, oropharyngeal phase Gastroparesis NURIA positive Disorder of sesamoid bone of foot Tenosynovitis of both hands Vitamin D insufficiency Abnormal uterine bleeding Temporomandibular joint disorder Iron deficiency anemia Subcutaneous mass of right upper extremity Subcutaneous mass of abdominal wall Bipolar disorder, unspecified (CMS/HCC) Generalized anxiety disorder with panic attacks PTSD (post-traumatic stress disorder) Seasonal allergies History of bruising easily Palpitations Class 2 obesity with body mass index (BMI) of 35.0 to 35.9 in adult Hordeolum externum of left lower eyelid History of nutritional disorder History of musculoskeletal disorder Past Surgical History: Procedure Laterality Date AXILLARY SURGERY 2018 Right axillary surgery Family History Problem Relation Name Age of Onset Hyperlipidemia Mother Diabetes Mother Diabetes Father Heart attack Father Bradycardia Sister Kidney failure Maternal Grandmother Other (cancer unspecified) Other Maternal GGM Social History Social History Narrative Not on file Review of Systems Constitutional: Negative. HENT: Oral/facial pain Eyes: Positive for pain, redness and visual disturbance. Negative for photophobia. Respiratory: Negative. Cardiovascular: Negative. OBJECTIVE: Vitals: 07/24/24 1346 BP: 136/80 BP Location: Left arm Patient Position: Sitting BP Cuff Size: Adult Pulse: 86 Resp: 18 Temp: 98.8 ??F (37.1 ??C) TempSrc: Oral SpO2: 100% Weight: 164 lb (74.4 kg) Height: 4' 11 (1.499 m) Physical Exam Vitals and nursing note reviewed. Constitutional: Appearance: Normal appearance. HENT: Head: Normocephalic and atraumatic. Right Ear: Tympanic membrane normal. Left Ear: Tympanic membrane normal. Nose: Nose normal. No congestion. Mouth/Throat: Mouth: Mucous membranes are moist. Pharynx: Oropharynx is clear. Eyes: General: Right eye: No discharge. Left eye: No discharge. Pupils: Pupils are equal, round, and reactive to light. Comments: Swelling to inferior lid with punctate opening on inner L lower lid Cardiovascular: Rate and Rhythm: Normal rate and regular rhythm. Pulses: Normal pulses. Heart sounds: Normal heart sounds. Pulmonary: Effort: Pulmonary effort is normal. Breath sounds: Normal breath sounds. Skin: General: Skin is warm and dry. Neurological: General: No focal deficit present. Mental Status: She is alert and oriented to person, place, and time. Psychiatric: Mood and Affect: Mood normal. Behavior: Behavior normal. ASSESSMENT/PLAN Problem List Items Addressed This Visit Hordeolum externum of left lower eyelid - Primary Relevant Medications warm compresses, wash hands, do not press or poke at stye, Keflex 500mg BID x 7 days, Diflucan if symptoms of vaginal yeast occur cephalexin (Keflex) 500 MG capsule Notify clinic or walkin if stye still present after 2 weeks Follow Up: per PCP recall or sooner prn Allergies Allergen Reactions Morphine Other reaction(s): Altered Heart Rate, Trouble Breathing, chest pain Tramadol Other reaction(s): Vomit Celexa [Citalopram] Duloxetine Other reaction(s): GI Problems Duloxetine Hcl Iodinated Contrast Media Current Outpatient Medications: acetaminophen (Tylenol) 500 MG tablet, take 1 tablet by oral route every 8 hours as needed not to exceed 6 tablets per 24hrs, Disp: , Rfl: albuterol 108 (90 Base) MCG/ACT inhaler, Inhale 2 puffs Every 4-6 hours as needed for wheezing or shortness of breath., Disp: 18 g, Rfl: 11 Azelastine HCl 137 MCG/SPRAY solution, ADMINISTER 1 SPRAY EACH NOSTRIL IF NEEDED IN THE MORNING ANDAT BEDTIME FOR RHINITIS OR ALLERGIES., Disp: 30 mL, Rfl: 3 Banophen 25 MG capsule, PLEASE SEE ATTACHED FOR DETAILED DIRECTIONS, Disp: , Rfl: Bisacodyl EC 5 MG EC tablet, TAKE 2 TABLETS ORALLY BEDTIME FOR 30 DAYS, Disp: , Rfl: Blood Pressure kit, 1 each 2 times daily., Disp: 1 kit, Rfl: 0 mnydujusud-ggefiwqgiwflg-gfdqdpxt 50-325-40 MG tablet, TOME ADRY TABLETA CADA OCHO HORAS CUANDO SEA NECESARIO FOR 30 DAYS, Disp: , Rfl: cephalexin (Keflex) 500 MG capsule, Take 1 capsule (500 mg) by mouth 3 times daily for 7 days., Disp: 21 capsule, Rfl: 0 cholecalciferol (Vitamin D-3) 25 MCG (1000 UT) tablet, Take 1 tablet (25 mcg) by mouth Once per day., Disp: 90 tablet, Rfl: 1 Creon [id number] units capsule delayed-release particles capsule, TOME ADRY C PSULA MINDA VECES AL D A WITH MEALS/SNACKS, Disp: , Rfl: cyclobenzaprine (Flexeril) 5 MG tablet, Take 1 tablet (5 mg) by mouth 3 times daily for 10 days., Disp: 30 tablet, Rfl: [address] capsule, Take 1 capsule (60 mg) by mouth Once per day. Do not crush or chew., Disp: 90 capsule, Rfl: 0 dicyclomine (Bentyl) 10 MG capsule, TOME ADRY C PSULA MINDA VECES AL D A, Disp: , Rfl: famotidine (Pepcid) 40 MG tablet, TOME ADRY TABLETA POR V A ORAL TODOS LOS D AL ACOSTARSE, Disp: , Rfl: ferrous gluconate (Fergon) 324 (38 Fe) MG tablet, TAKE 1 PILL EVERY SATURDAY, SATURDAY, AND SATURDAY. TAKE WITH A FULL GLASS OF WATER OR VIT C CONTAINING JUICE, AND IDEALLY 1 HOUR BEFORE A MEAL OR 2 HOURS AFTER A MEAL, Disp: 36 tablet, Rfl: 0 fexofenadine (Gretchen) 180 MG tablet, Take 1 tablet (180 mg) by mouth Once per day., Disp: 90 tablet, Rfl: 3 fluticasone furoate (Arnuity Ellipta) 100 MCG/ACT inhaler, Inhale 1 puff Once per day. Rinse mouth with water after use to reduce aftertaste and incidence of candidiasis. Do not swallow., Disp: 1 each, Rfl: 11 LORazepam (Ativan) 1 MG tablet, TAKE 1/2 TABLET BY MOUTH IN THE MORNING AND 1 TABLET AT BEDTIME DIRECTED, Disp: , Rfl: methocarbamol (Robaxin) 750 MG tablet, Take 1 tablet (750 mg) by mouth 4 times daily for 10 days., Disp: 40 tablet, Rfl: 0 pregabalin (Lyrica) 50 MG capsule, Take 1 capsule (50 mg) by mouth at bedtime., Disp: 30 capsule, Rfl: 3 propranolol (Inderal) 20 MG tablet, TAKE 1 TABLET BY MOUTH 2 TIMES A DAY FOR 30 DAYS FOR HEART PALPITATION, Disp: , Rfl: Simethicone Ultra Strength 180 MG capsule, TAKE 1 CAPSULE ORALLY 2 TIMES A DAY FOR 30 DAYS AFTER MEALS, Disp: , Rfl: Sodium Fluoride (PreviDent 5000 Booster Plus) 1.1 % paste, Apply a smear of paste on the brush; brush thoroughly twice daily. Spit, do not rinse., Disp: 112 g, Rfl: 2 Tirzepatide 2.5 MG/0.5ML solution auto-injector, Inject 2.5 mg under the skin 1 (one) time per week., Disp: 2 mL, Rfl: 2 Occitan Translation: Provided by [facility] staff member BRANDI Blackwell documented in this encounter Plan of Treatment Upcoming Encounters Date Type Department Care Team (Late st Contact Info) Description 08/04/2024 2:30 PM EST Office Visit [facility] OPTOMETRY [address] [place], [place] [phone] Cristine Alan, OD [address] [place] [address] 08/14/2024 1:30 PM EST Clinical Support [facility] DIABETES/NUTRITION [address] [place] [address] [place] [address] 08/18/2024 1:30 PM EST Office Visit [facility] ADULT DENTAL [address] [place] [address] Venkat Barreto DDS [address] [place] [address] 11/04/2024 11:15 AM EDT Office Visit [facility] MEDICINE [address] [place] [address] Petra Wiley FNP [address] [place] [address] 01/18/2025 3:00 PM EDT Office Visit [facility] CHC ADULT DENTAL [address] [place] [address] Sanaz Nelson documented as of this encounter Visit Diagnoses Diagnosis Hordeolum externum of left lower eyelid- Primary documented in this encounter Additional Health Concerns Assessment Noted Time PHQ-9 Depression Total Score: 13 03/16/ 024 3:11 PM EDT documented as of this encounter Care Teams Field Merchandiser Relationship Specialty Start Date End Date Petra Wiley FNP [address] [place] [address] PCP - General Family Medicine 03/17/24 Willard Waters [address] [place] [address] Rheumatology 05/17/24 Victoria Sumaya [address]rd [place] [address] Gastroenterology 05/17/24 Juan Sandra MD [address] [place] [address] Hematology and Oncology 05/17/24 Brigid Guy NP [address] [place] [address] Urology 05/17/24 Vicente Mooney MD [address] [place] [address] [address] [place] [address] Obstetrics and Gynecology 05/17/24 Beth Rai MD [address] [place] [address] [place] [address] Neurology 05/17/24 Michell Espinoza [address] [place] [address] 3[address] [place] [address] Cardiology 05/17/24 Shelia Zheng [employer] Consulting DirectorSignalling And Communications Engineer 09/26/23 documented as of this encounter
--- OUTSIDE RECORDS SUMMARY | 2024-07-30 14:03 | XMS_ITS | Referral Summary ---
Author Organization [facility] Address [address] [place] [address] Care Team Providers Care Inward Toll Operator Name Role Phone Petra Wiley Primary Care Provider [phone] Encounters Date Type Department Care Team Description 07/22/2024 12:00 PM EST Office Visit [facility] [address] [place] [address] Digital Designer: Newton Rangel DO Erythromelalgia (HCC) (Primary Dx); Polyarthralgia 06/26/2024 Transcribe Orders [facility] Physician Referral Services [address] [place] [address] IsaiasPetra burch Subcutaneous mass of right upper extremity (Primary Dx); Subcutaneous mass of abdominal wall 05/20/2024 2:58 PM EST - 05/20/2024 11:59 PM EST Hospital Encounter [facility] XRay [address] [address] DO Polyarthralgia Discharge Disposition: Home or Self Care () 05/20/2024 1:00 PM EST Office Visit [facility] [address] [place] [address] Digital Designer: Newton Rangel DO Polyarthralgia (Primary Dx); Positive NURIA (antinuclear antibody) from Last 3 Months Allergies Active Allergy Reactions Criticality Noted Date [...] 4 Active dicyclomine (BENTYL) 10 mg capsule TOME ADRY C PSULA MINDA VECES AL D A 3 Active famotidine [...] is in agreement with the above assessment. Social History Tobacco Use Types Packs/Day Years [...] Description 11/11/2024 12:00 PM EDT Office Visit [facility] [address] [place] [address] Digital Designer: Newton Rangel DO [address] [facility] [place] [address] Procedures * Due to [place] state law, this organization might not be [...] 3:31 PM EST Positive NURIA (antinuclear antibody) [id number] I ANTIBODIES, IGG/IGA/IGM Routine 05/20/2024 3:31 PM [...] Last 3 Months Results * Due to [place] state law, this organization might not be sharing negative HIV tests. * Protein Electrophoresis w/Reflex to Immunofixation, Serum (07/22/2024 1:56 PM EST) [facility] Protein, Total 8.1 6.1 - 8.1 g/dL 07/28/2024 7:22 AM EST [email or web address] Albumin 4.8 3.8 - 4.8 g/dL 07/28/2024 7:22 AM EST [email or web address] Alpha 1 Globulin 0.3 0.2 - 0.3 g/dL 07/28/2024 7:22 AM EST [email or web address] Alpha 2 Globulin 0.7 0.5 - 0.9 g/dL 07/28/2024 7:22 AM EST [email or web address] Beta 1 Globulin 0.6 0.4 - 0.6 g/dL 07/28/2024 7:22 AM EST [email or web address] Beta 2 Globulin 0.5 0.2 - 0.5 g/dL 07/28/2024 7:22 AM EST [email or web address] Gamma Globulin 1.2 0.8 - 1.7 g/dL 07/28/2024 7:22 AM EST [email or web address] Interpretation See Comments 07/28/2024 7:22 AM Query [facility] Comment: Normal Serum Protein Electrophoresis Pattern. No abnormal protein bands (M-protein) detected. Blood Structure of peripheral vein / Unknown Venipuncture / Unknown 07/22/2024 1:56 PM EST 07/22/2024 2:37 PM EST [facility] - 07/28/2024 7:22 AM EST [facility] Received Date: Newton Street DO LAB BLOOD ORDERABLES Final Res ult [facility] [address] [facility] [address], [place] [address], [place] [phone] [email or web address] [facility] [address] [facility] 3rd Floor, [place] [address], [place] [phone] * (ABNORMAL) Sedimentation Rate (07/22/2024 1:56 PM EST) Only the most recent of2 resultswithin the time period is included. [facility] Sed Rate 29(H) <20 mm/Hr mm/Hr 07/22/2024 2:52 PM EST [facility] Blood Structure of peripheral vein / Unknown Venipuncture / Unknown 07/22/2024 1:56 PM EST 07/22/2024 2:[address] DO LAB BLOOD ORDERABLES Final Res ult Performing Organization Address [facility] Co de Phone Number [facility] [address] [place] [address], * (ABNORMAL) NURIA, Titer and Pattern (05/20/2024 3:31 PM EST) NURIA Titer 1 1:640(H) titer 05/22/2024 12:31 PM EST [facility] Comment: ?Reference Range ?<1:40 ?Negative ?1:40-1:80 ?Low Antibody Level ?>1:80 ?Elevated Antibody Level NURIA Pattern 1 Nuclear, Dense Fine Speckled( A) 05/22/2024 12:31 PM EST [facility] Comment: Dense fine speckled pattern is seen in normal individuals and rarely associated with systemic lupus erythematosis (SLE), Sjogren's syndrome and systemic sclerosis. AC-2: Dense Fine Speckled International Consensus on NURIA Patterns (https://doi.org/10.1515/rfrl-2660-0294) Blood Structure of peripheral vein / Unknown Venipuncture / Unknown 05/20/2024 3:31 PM EST 05/20/2024 3:45 PM EST Narrative [facility] - 05/22/2024 12:31 PM EST [facility] Received Date: [address] DO LAB BLOOD ORDERABLES Final Res ult SLIM [place] [address] [facility] [address], [place] [address], [facility] [address], [address] [facility] [address], * Cardiolipin Antibodies, IgG/IgM/IgA (05/20/2024 3:31 PM EST) Cardiolipin Ab IgA <2.0 APL-U/mL 2023 2:07 PM EST [facility] Comment: Value ?Interpretation ----- ? < 20.0 ? Antibody not detected > or = 20.0 ?Antibody detected Cardiolipin Ab IgG <2.0 GPL-U/mL 2023 2:07 PM EST [facility] Comment: Value ?Interpretation ----- ? < 20.0 ? Antibody not detected > or = 20.0 ?Antibody detected Cardiolipin Ab IgM <2.0 MPL-U/mL 2023 2:07 PM EST [facility] Comment: Value ?Interpretation ----- ? < 20.0 [...] aging. For additional information, please refer to http://[employer]/faq/PXB979 (This link is being provided for informational/ educational purposes only.) Blood Structure of peripheral vein / Unknown Venipuncture / Unknown 05/20/2024 3:31 PM EST 05/20/2024 3:45 PM EST Narrative [facility] [place] - 05/21/2024 2:07 PM EST [facility] Received Date: [facility] LAB BLOOD ORDERABLES Final Res ult Performing Organization Address [facility] Co de Phone Number [facility] [place] [address], [place] [address], [place] [phone] [facility] [address], [place] [address], [place] [phone] * Complement C3c and C4c (05/20/2024 3:31 PM EST) Complement Component C3C 180 83 - 193 mg/dL 05/21/2024 1:53 AM EST [facility] Complement Component C4C 32 15 - 57 mg/dL 05/21/2024 1:53 AM EST [facility] Blood Structure of peripheral vein / Unknown Venipuncture / Unknown 05/20/2024 3:31 PM EST 05/20/2024 3:45 PM EST Narrative [facility] - 05/21/2024 1:53 AM EST [facility] Received Date: [facility] LAB BLOOD ORDERABLES Final Res ult Performing Organization Address City/[facility]/ZIP Co de Phone Number [facility] [address], [place] [address], [place] [phone] [facility] [address] [place] [address], [place] [address], * Lupus Anticoagulation Evaluation w/Reflex (05/20/2024 3:31 PM EST) Lupus Anticoagulant See Comments 05/22/2024 7:11 AM EST [facility] CABRERA (ALEJANDRE) Comment: A Lupus Anticoagulant is not detected. Reference Range: ??Not Detected For additional information, please refer to http://education.[employer]/faq/EUU25w3 (This link is being provided for informational/ educational purposes only.) ? This interpretation is based on the following test results. Ptt-LA Screen 34 <=40 sec 05/22/2024 7:11 AM EST [facility] CABRERA (ALEJANDRE) dRVVT Screen 31 <=45 sec 05/22/2024 7:11 AM EST [facility] (PILI) Blood Structure of peripheral vein / Unknown Venipuncture / Unknown 05/20/2024 3:31 PM EST 05/20/2024 3:45 PM EST Narrative [facility] CABRERA (ALEJANDRE) - 05/22/2024 7:11 AM EST [facility] Received Date: us [address] DO LAB BLOOD ORDERABLES Final Res ult SLIM [place]) [address] [place], [place] , [place] * Cyclic citrul peptide antibody, IgG (05/20/2024 3:31 PM EST) Cyclic Citrullinated Peptide (CCP) Ab (IgG) <16 UNITS 05/21/2024 10:26 PM EST [facility] Comment: Reference Range Negative: ?<20 Weak Positive: ? 20-39 Moderate Positive: ?? 40-59 Strong Positive: ? >59 Blood Structure of peripheral vein / Unknown Venipuncture / Unknown 05/20/2024 3:31 PM EST 05/20/2024 3:45 PM EST V[facility]INTER - 05/21/2024 10:26 PM EST [facility] Received Date: [address] DO LAB BLOOD ORDERABLES Final Res ult [facility] [place] [address], [place] [address], [place] [phone] [email or web address] [address], [address] [place] [address], [place] [phone] * (ABNORMAL) NURIA Screen, IFA, w/Reflex to Titer & Pattern (05/20/2024 3:31 PM EST) NURIA Screen, IFA POSITIVE (A) NEGATIVE 05/22/2024 12:31 PM EST [email or web address] Comment: NURIA IFA is a first line screen for detecting the presence of up to approximately 150 autoantibodies in various autoimmune diseases. A positive NURIA IFA result is suggestive of autoimmune disease and reflexes to titer and pattern. Further laboratory testing may be considered if clinically indicated. For additional information, please refer to http://education.[employer]/faq/JRD581 (This link is being provided for informational/ educational purposes only.) ?? Blood Structure of peripheral vein / Unknown Venipuncture / Unknown 05/20/2024 3:31 PM EST 05/20/2024 3:45 PM EST Vicky SLIM WINTER - 05/22/2024 12:31 PM EST [facility] Received Date: Newton Yenifer DO LAB BLOOD ORDERABLES Final Res ult [facility] [place] [address] [facility] [address] [facility], [address] [place] [address], [place] [phone] [email or web address] [address], [address] [place] [address], [place] [phone] * Ubxh-8-Mjvthdkqzbkt I Antibodies, IgG/IgA/IgM (05/20/2024 3:31 PM EST) Beta2-Glycoprotein I (IgG) <2.0 <20.0 U/mL 05/25/2024 8:22 PM EST [facility] (PILI) Comment: Value ?Interpretation ----- ? < 20.0 ? Antibody not detected > or = 20.0 ?Antibody detected Beta2-Glycoprotein I (IgM) <2.0 <20.0 U/mL 05/25/2024 8:22 PM EST [facility] HUMPHREYReshma (PILI) Comment: Value ?Interpretation ----- ? < 20.0 ? Antibody not detected > or = 20.0 ?Antibody detected Beta2-Glycoprotein I (IgA) <2.0 <20.0 U/mL 05/25/2024 8:22 PM EST [facility] (ALEJANDRE) Comment: Value ?Interpretation ----- ? < 20.0 [...] aging. For additional information, please refer to http://education.[employer]/faq/OZX997 (This link is being provided for informational/ educational purposes only.) ? Blood Structure of peripheral vein / Unknown Venipuncture / Unknown 05/20/2024 3:31 PM EST 05/20/2024 3:45 PM EST Narrative [facility]INTER - 05/25/2024 8:22 PM EST [facility] Received Date: SenSage DO LAB BLOOD ORDERABLES Final Res ult [facility] [address] [facility] [address], [place] [address], [place] [phone] [facility] [address] [place] [address], * Rheumatoid factor (05/20/2024 3:31 PM EST) Rheumatoid Factor <10 <14 IU/mL 05/20/2024 9:54 PM EST [facility] Blood Structure of peripheral vein / Unknown Venipuncture / Unknown 05/20/2024 3:31 PM EST 05/20/2024 3:45 PM EST Narrative [facility]INTER - 05/20/2024 9:54 PM EST [facility] Received Date:[id number] Newton Yenifer DO LAB BLOOD ORDERABLES Final Res ult [facility] [place] [address] [facility] [address], [place] [address], [place] [phone] [email or web address] [address] [facility] 3rd [address], [place] [address], [place] [phone] * C-reactive protein (05/20/2024 3:31 PM EST) C Reactive Protein <3.0 <=9.9 mg/L 05/20/2024 4:11 PM EST [facility] Blood Structure of peripheral vein / Unknown Venipuncture / Unknown 05/20/2024 3:31 PM EST 05/20/2024 3:[address] DO LAB BLOOD ORDERABLES Final Res ult Performing Organization Address City/[facility]/ZIP Co de Phone Number [facility] [address] [place] [address], [place] * NURIA Specific Antibody w/Reflex to [place] (05/20/2024 3:31 PM EST) Pathologist [facility] NURIA Screen, Immunoassay NEGATIVE NEGATIVE 05/21/2024 2:12 PM EST [facility] Comment: A negative NURIA Multiplex indicates the absence of detectable antibodies to component analytes consisting of double stranded DNA (dsDNA), chromatin, ribonucleoprotein (DIGITAL COMMENTATOR), Jamison/DIGITAL COMMENTATOR (Sm/DIGITAL COMMENTATOR), Jamison (Sm), SS-A, SS-B, Laura-1, centromere B, Scl-70 and ribosomal P. A negative result should be interpreted in the context of the clinical and laboratory findings and does not rule out autoimmune disease characterized by other autoantibody specificities such as rheumatoid arthritis, autoimmune hepatitis, primary biliary cirrhosis, autoimmune thyroiditis, [place]'s disease, pernicious anemia, autoimmune neuropathies, vasculitis, celiac disease, and bullous disease. For additional information, please refer to http://education.[employer]/faq/MDO754 (This link is being provided for informational/ educational purposes only.) ?? Blood Structure of peripheral vein / Unknown Venipuncture / Unknown 05/20/2024 3:31 PM EST 05/20/2024 3:45 PM EST Narrative [facility] [place] - 05/21/2024 2:12 PM EST [facility] Received Date: us Newton Yenifer DO LAB BLOOD ORDERABLES Final Res ult [facility] [address] [facility] [address], [place] [address], [place] [phone] [email or web address] [address] [facility] 3rd Floor, [place] [address], * CK (05/20/2024 3:31 PM EST) CK 55 38 - 206 U/L 05/20/2024 4:11 PM EST [facility] Blood Structure of peripheral vein / Unknown Venipuncture / Unknown 05/20/2024 3:31 PM EST 05/20/2024 3:45 PM EST [address] DO LAB BLOOD ORDERABLES Final Res ult [facility] [address] [place] [address], [place] * XR Foot 3+ vw Right [...] obtain the completed interpretation. ? Workstation ID: [id number] Narrative 05/20/2024 3:47 PM EST COMPARISON: ??There [...] normal limits. No spondyloarthropathy Resulting Agency Comment [id number] Procedure Note Saritha Fabian MD - 05/20/2024 [...] possible to obtain thecompleted interpretation. Workstation ID: [id number] us [address] DO IMG XR PROCEDURES [...] obtain the completed interpretation. ? Workstation ID: [id number] Narrative 05/20/2024 3:47 PM EST COMPARISON: ??There [...] normal limits. No spondyloarthropathy Resulting Agency Comment [id number] Procedure Note Saritha Fabian MD - 05/20/2024 [...] possible to obtain thecompleted interpretation. Workstation ID: [id number] [address] DO IMG XR PROCEDURES [...] obtain the completed interpretation. ? Workstation ID: [id number] Narrative 05/20/2024 3:47 PM EST COMPARISON: ??There [...] normal limits. No spondyloarthropathy Resulting Agency Comment [id number] Procedure Note Saritha Fabian MD - 05/20/2024 [...] possible to obtain thecompleted interpretation. Workstation ID: [id number] [address] DO IMG XR PROCEDURES [...] obtain the completed interpretation. ? Workstation ID: [id number] Narrative 05/20/2024 3:47 PM EST COMPARISON: ??There [...] normal limits. No spondyloarthropathy Resulting Agency Comment [id number] Procedure Note Saritha Fabian MD - 05/20/2024 [...] possible to obtain thecompleted interpretation. Workstation ID: [id number] [address] DO IMG XR PROCEDURES [...] obtain the completed interpretation. ? Workstation ID: [id number] Narrative 05/20/2024 3:47 PM EST COMPARISON: ??There [...] normal limits. No spondyloarthropathy Resulting Agency Comment [id number] Procedure Note Saritha Fabian MD - 05/20/2024 [...] possible to obtain thecompleted interpretation. Workstation ID: [id number] [address] DO IMG XR PROCEDURES Final Result from Last 3 Months Insurance [facility] Care Teams Inward Toll Operator Relationship Specialty Start Date End Date Petra Wiley [address] [place] [address] PCP - General Family Medicine 03/19/24
--- OUTSIDE RECORDS SUMMARY | 2024-07-30 14:04 | XMS_ITS | Encounter Summary ---
Author Organization [employer] Address [address] [facility] 7t [place] [address] Care Team Providers Care Mill Recorder Name Role Phone Petra Wiley RECEIVING BARN CUSTODIAN Primary Care Provider Willard [place] Unavailable [phone] September Unavailable Juan Sandra MD Unavailable [phone] Brigid Guy NP Unavailable Vicente Mooney MD Unavailable Beth Rai MD Unavailable Michell Espinoza Unavailable Encounter Details Date Type Department Care Team (Latest Contact Info) Description 07/20/2024 2:00 PM EST Clinical Support [facility] DIABETES/NUTRITION [address] [place], [place] [phone] Tamanna Mcintyre, RD [address] [place], [place] [phone] BMI 35.0-35.9,adult (Primary Dx) Social History Tobacco [...] this encounter Progress Notes * Tamanna Mcintyre, RD - 07/20/2024 2:00 PM EST In Person Visit Medical Diagnosis: Z68.35 BMI 35.0 - 35.9 BMI 35.0-35.9,adult Anthropometrics: On 07/10/2024, Ht:4' 11 (1.499 m), Wt:165 lb 3.2 oz (74.9 kg), BMI: Body mass index is 33.37 kg/m??. Assessment: Patient (Pt) accepted nutrition education assessment appointment with RD. Pt refused picker and sorter load and unload. Pt said she understands RD. RD didn't take Pt's weight today. RD is using 07/10/2024 weight for today's note RD asked Pt what she is doing now for her food intake? Pt expressed in telling RD that she is doing with RD has suggested. Pt did adding other foods such as: pumpkin, green apples, potatoes, avocado, cheese sticks. Pt had been adding foods according to last appointment as well. Pt expressed how much better she feels and can hold down eggs. Pt is taking her digestive enzymes at all meals and swears by them for helping her keep food that she swallowed to keep it down without throwing it up. Pt express how much better she is doing. Pt did tell RD that she still gets the nausea, but is not as powerfull as it used to be. Pt expressed that she is still putting in Himalayan salt into her beverage/ water as suggested. Pt finds that by doing this, the nausea subsides quickly. All in all, Pt agreed to continue to follow meal plan as set at this moment, take digestive enzymes, put Himalayan salt into beverages, take supplement Plus, and eat small portions, eat added in greens/ lettuces, and add to food extra virgin olive oil. Follow up appointment is scheduled in the second week of July 2024. Note: Only part of the first half of First appointment has been accomplished. The continuation of the completion of the first half is the focus on next scheduled appointment. Food Allergies: NKFA Exercise: not at all Food Intolerance: Was not talked about today. Food Preferences: Was not talked about today. Food Dislikes: Was not talked about today. Frequency of Eating Out/ Restaurant: Didn't say Who Cooks?: Didn't say How much caffeine?: denies use How much sugary beverages?: Pt has been drinking water and sugar free beverages. Diet History: Breakfast: Eg Avocado: one Water with Himalayan salt: small pinch Snack: None Water: 1+ cups Lunch: Baked chicken: amount not given Pumpkin: 1/3 cup Mashed potato: 1/3 cup Avocado: 1/2 cup Water: 1+ cups Snack: None Water/ beverage: 1+ cups Dinner: Similar to lunch time, but much less. Snack: None Water/ beverage: 1+ cups Nutrition Diagnosis: 1st half of First appointment [...] Description 08/04/2024 2:30 PM EST Office Visit [facility] OPTOMETRY [address] [place] [address] Waqas, Cristine, OD [address] [place] [address] 08/14/2024 1:30 PM EST Clinical Support [facility] DIABETES/NUTRITION [address] [place] [address] [place] [address] 08/18/2024 1:30 PM EST Office Visit [facility] ADULT DENTAL [address] [place] [address] Venkat Barreto, DDS [address] [place] [address] 11/04/2024 11:15 AM EDT Office Visit [facility] MEDICINE [address] [place] [address] Petra Wiley FNP [address] [place] [address] 01/18/2025 3:00 PM EDT Office Visit [facility] CHC ADULT DENTAL [address] [place] [address] Sanaz Nelson documented as of this encounter Visit Diagnoses Diagnosis BMI 35.0-35.9,adult- Primary documented in this encounter Additional Health Concerns Assessment Noted Time PHQ-9 Depression Total Score: 13 024 3:11 PM EDT documented as of this encounter Care Teams Mill Recorder Relationship Specialty Start Date End Date Petra Wiley FNP [address] [place] [address] PCP - General Family Medicine 03/17/24 Willard Waters [address] [facility] [address] [place], [place] Rheumatology 05/17/24 Sumaya Kessler [address]rd [place] [address] Gastroenterology 05/17/24 Juan Sandra MD [address] [place] [address] Hematology and Oncology 05/17/24 Brigid Guy NP [address] [place] [address] Urology 05/17/24 Vicente Mooney MD [address] [place] [address] [address] [place] [address] Obstetrics and Gynecology 05/17/24 Beth Rai MD [address] [place] [address] [place] [address] Neurology 05/17/24 Michell Espinoza [address]rd [place] [address] Cardiology 05/17/24 Shelia Zheng Engineering And Development DirectorQuarter Folder 09/26/23 documented as of this encounter
--- OUTSIDE RECORDS SUMMARY | 2024-07-30 14:04 | XMS_ITS | Encounter Summary ---
Author Organization [employer] Address [address] [facility] 7t [place] [address] Care Team Providers Care Recycle Coordinator Name Role Phone Petra Wiley NIC Primary Care Provider Willard Waters Unavailable [phone] KesslerSeptember Unavailable Juan Sandra MD Unavailable [phone] Brigid Guy NP Unavailable Vicente Mooney MD Unavailable Beth Rai MD Unavailable Michell Espinoza Unavailable Reason for Visit * Reason Comments Filling Encounter Details Date Type Department Care Team (Late st Contact Info) Description 06/30/2024 3:00 PM EST Office Visit [facility] ADULT DENTAL [address] [place], [place] [phone] Venkat Barreto DDS [address] [place], [place] [phone] Social History Tobacco Use Types Packs/Day Years [...] Sign Reading Time Taken Comments Blood Pressure 116/62 06/30/2024 3:12 PM EST Pulse - - Temperature - - Respiratory Rate - - Oxygen Saturation - - Inhaled Oxygen Concentration - - Weight - - Height - - Body Mass Index - - documented in this encounter Progress Notes * Venkat Barreto DDS - 06/30/2024 3:00 PM EST Patient ID: Ambika Anaya is a 39 y.o. female. Time Out: No data recorded Location: [facility] Tooth: #14 Procedure: Uatsdin Verified the above with patient, career services assistant, and provider. Confirmed via patient's chart, intraorally and by radiographs. Scrap Crane Operator: not applicable Chief Complaint Patient presents with Filling Medical Hx: Vitals: Blood pressure 116/62. Medications, Med Hx reviewed with patient and updated in chart. Consent Obtained: The risks, benefits, indications, potential complications, and alternatives were explained to the patient and informed consent was obtained with good understanding. Treatment Provided: Dental procedures in this visit D2392 - RESTORATIVE - RESIN-BASED COMPOSITE RESTORATIONS - DIRECT - RESIN-BASED COMPOSITE - TWO SURFACES, POSTERIOR 14 DO (Completed) Service provider: Venkat Barreto DDS Billing provider: Venkat Barreto DDS D9450 - ADJUNCTIVE GENERAL SERVICES - PROFESSIONAL VISITS - CASE PRESENTATION, SUBSEQUENT TO DETAILED AND EXTENSIVE TREATMENT PLANNING (Completed) Service provider: Venkat Barreto DDS Billing provider: Venkat Barreto DDS Diagnosis: Reversible pulpitis Topical: 20% Benzocaine Anesthesia: 4% Septocaine (Articaine) w/ 1:200,000 epinephrine Number of Cartridges: 1 Injection Type: Buccal infiltration and Palatal infiltration Confirmed profound anesthesia. Isolation: high speed suction and cotton rolls Prep: All caries removed and Preparation finalized Matrix: Tofflemire and wedge and Sectional Matrix and wedge Etch: 37% Phosphoric Acid Etch Desensitizer: Gluma Liner/Base: LimeLite Mcclellan: I-Mcclellan Uatsdin Material: Natural Welcareance Turnstyle Solutions Shade: A3 Polished. Occlusion & contacts verified. Patient satisfied with comfort and esthetics. Patient tolerated procedure well. Post-operative instructions were given. Patient departed alert, oriented, and in stable condition. Pulp horn exposed during caries excavation using slow speed carbide bur and spoon excavator. Directpulp capping done using Dycal. Patient was informed about the potential for pain and sensitivity and was advised to contact us if she experiences significant discomfort. NV: Follow-up as needed. Draw Bench Operator Helper: Whit La Dentist: Venkat Barreto DDS documented in this encounter Plan of Treatment Upcoming Encounters Date Type Department Care Team (Late st Contact Info) Description 08/04/2024 2:30 PM EST Office Visit [facility] OPTOMETRY [address] [place], [place] [phone] Cristine Alan, OD [address] [place], [place] [phone] 08/14/2024 1:30 PM EST Clinical Support [facility] DIABETES/NUTRITION [address] [place] [address] Tamanna Mcintyre, ANGELINA [address] [place] [address] 08/18/2024 1:30 PM EST Office Visit [facility] ADULT DENTAL [address] [place] [address] Venkat Barreto DDS [address] [place] [address] 11/04/2024 11:15 AM EDT Office Visit [facility] MEDICINE [address] [place] [address] Petra Wiley FNP 505 [place] [address] 01/18/2025 3:00 PM EDT Office Visit [facility] ADULT DENTAL 505 [place] [address] Sanaz Nelson documented as of this encounter Procedures Procedure Name Priority Date/Time Associated Diagnosis Comments 14 DO RESIN-BASED COMPOSITE - 2 SURF, POSTERIOR Routine 06/30/2024 3:00 PM EST CASE PRESENTATION, DETAILED AND EXTENSIVE TREATMENT PLANNING Routine 06/30/2024 3:00 PM EST documented in this encounter Visit Diagnoses Not on filedocumented in this encounter Additional Health Concerns Assessment Noted Time PHQ-9 Depression Total Score: 13 03/16/2 024 3:11 PM EDT documented as of this encounter Care Teams Recycle Coordinator Relationship Specialty Start Date End Date Petra Wiley FNP [address] [place] [address] PCP - General Family Medicine 03/17/24 Willard Waters [address] [place] [address] Rheumatology 05/17/24 Sumaya Kessler [address] 3rd [place] [address] Gastroenterology 05/17/24 Juan Sandra MD [address] [place] [address] Hematology and Oncology 05/17/24 Brigid Guy NP [address] [place] [address] Urology 05/17/24 Vicente Mooney MD [address] [place] [address] [address] [place] [address] Obstetrics and Gynecology 05/17/24 Beth Rai MD [address] [place] [address] Neurology 05/17/24 Michell Espinoza 11 [facility] 3rd [place] [address] Cardiology 05/17/24 Shelia Zheng Slitter OperatorRadiochemical Technician 09/26/23 documented as of this encounter
--- OUTSIDE RECORDS SUMMARY | 2024-07-30 14:04 | XMS_ITS | Encounter Summary ---
Author Organization [employer] Address [address] [facility] 7t [place] [address] Care Team Providers Care Car Tracer Name Role Phone Petra Wiley NIC Primary Care Provider [phone] Willard Waters Unavailable [phone] September Unavailable Juan Sandra MD Unavailable [phone] Brigid Guy NP Unavailable Vicente Mooney MD Unavailable Beth Rai MD Unavailable Michell Espinoza Unavailable Encounter Details Date Type Department Care Team (Late st Contact Info) Description 05/20/2024 Orders Only [facility] MED & PEDS [address] [place], [place] [phone] ProviderAddie MD Social History Tobacco Use Types Packs/Day Years [...] the past 12 months, has t he [employer], gas, oil or water company threatened to [...] Description 08/04/2024 2:30 PM EST Office Visit [facility] OPTOMETRY [address] [place] [address] Waqas, Cristine, OD 230 [place] [address] 08/14/2024 1:30 PM EST Clinical Support [facility] DIABETES/NUTRITION [address] [place] [address] Tamanna Mcintyre, RD [address] [place] [address] 08/18/2024 1:30 PM EST Office Visit [facility] ADULT DENTAL [address] [place] [address] Venkat Barreto, DDS [address] [place] [address] 11/04/2024 11:15 AM EDT Office Visit [facility] MEDICINE [address] [place] [address] Petra Wiley FNP [address] [place] [address] 01/18/2025 3:00 PM EDT Office Visit [facility]C ADULT DENTAL [address] [place] [address] Sanaz Nelson documented as of this encounter Procedures Procedure Name Priority Date/Time Associated Diagnosis Comments HM PAP/HPV Routine 11/12/2019 4:50 PM EDT documented in this encounter Results * HM PAP/HPV (11/12/2019 4:50 PM EDT) us Historical Provider HEALTH MAINTENANCE Final Result documented in this encounter Visit Diagnoses Not on filedocumented in this encounter Additional Health Concerns Assessment Noted Time PHQ-9 Depression Total Score: 13 03/16/ 024 3:11 PM EDT documented as of this encounter Care Teams Car Tracer Relationship Specialty Start Date End Date Petra Wiley FNP [address] [place] [address] PCP - General Family Medicine 03/17/24 Willard Waters [address] [place] [address] Rheumatology 05/17/24September [address] [facility] [address] 3rd [place] [address] Gastroenterology 05/17/24 Juan Sandra MD [address] [place] [address] Hematology and Oncology 05/17/24 Brigid Guy NP [address] [facility] [address] [place] [address] Urology 05/17/24 Vicente Mooney MD [address] [place] [address] [address] [place] [address] Obstetrics and Gynecology 05/17/24 Beth Rai MD [address] [place] [address] [place] [address] Neurology 05/17/24 Michell Espinoza [address] 3rd [place] [address] Cardiology 05/17/24 Shelia Zheng Tumblers SupervisorBuckram Sewer 09/26/23 documented as of this encounter
--- OUTSIDE RECORDS SUMMARY | 2024-07-30 14:04 | XMS_ITS | Encounter Summary ---
Author Organization [employer] Address [address] [facility] 7t [place] [address] Care Team Providers Care Psychiatric Clinical Nurse Specialist Name Role Phone Petra Wiley NIC Primary Care Provider [phone] Willard Waters Unavailable [phone] September Unavailable Juan Sandra MD Unavailable [phone] Brigid Guy NP Unavailable Vicente Mooney MD Unavailable Beth Rai MD Unavailable Michell Espinoza Unavailable Encounter Details Date Type Department Care Team (Late st Contact Info) Description 07/10/2024 2:00 PM EST Nutrition [facility] DIABETES/NUTRITION [address] [place], [place] [phone] Tamanna Mcintyre, ANGELINA [address] [place], [place] [phone] Body mass index (BMI) of 35.0 to 35.9 in adult (Primary Dx) Social History Tobacco Use Types [...] Sign Reading Time Taken Comments Blood Pressure - - Pulse - - Temperature - - Respiratory Rate - - Oxygen Saturation - - Inhaled Oxygen Concentration - - Weight 74.9 kg (165 lb 3.2 oz) 07/14/2024 4:41 P M EST Height 149.9 cm (4' 11 ) 07/14/2024 4:41 PM EST Body Mass Index 33.37 07/14/2024 4:41 PM EST documented in this encounter Progress Notes * Tamanna Mcintyre, ANGELINA - 07/10/2024 2:00 PM EST In Person Visit Medical Diagnosis: Z68.35 BMI 35.0 - 35.9 Anthropometrics: Ht:4' 11 (1.499 m), Wt:165 lb 3.2 oz (74.9 kg), BMI: Body mass index is 33.37 kg/m??. Assessment: Patient (Pt) accepted nutrition education assessment appointment with RD. RD took Pt's weight. Weight has remain the same since last appointment with RD. [facility] after school program assistant, Misti, translated. RD asked Pt how she did in follow suggestions given. Pt said that she did right away as RD suggested. Pt is now holding down food/ eggs with the help of digestive enzymes and having a very small pinch of Himalayan salt in her beverage. Pt did order the Plus supplement. Pt did ask about eating different foods. RD expressed that Pt needs to walk her way into eating foods. Having fish, such as tuna,like Pt did in the evening/ dinner time along with a little bit of casava and potato and a avocado was excellent choice of foods. RD highly suggested to keep to small amounts- under 1/2 cup-> 1/3 cup. Taking the digestive enzyme at every meal is york. Pt agreed. Then, RD proceeded to continue in finishing the First appointment. RD started to go in depth on the first half of the First nutrition education assessment appointment. RD was only able to complete the first half of First nutrition education assessment appointment. The second half of First nutrition education assessment appointment is scheduled in the first week of July 2024. RD is taking Pt/ walking Pt in to the next steps. RD's first part in meeting with Pt was to solve to consent throwing up of what ever Pt ate and drank. Now that this seems to have been resolved at this moment, RD is proceeding further. Food Allergies: NKFA Exercise: not at all Food Intolerance: Was not talked about today. Food Preferences: Was not talked about today. Food Dislikes: Was not talked about today. Frequency of Eating Out/ Restaurant: Didn't say Who Cooks?: Didn't say How much caffeine?: denies use How much sugary beverages?: Pt has been drinking water and sugar free beverages. Diet History: Breakfast: Boiled egg: one Digestive enzyme: one Ice sugar free drink: 2 cups Himalayan salt: , pinch of salt Snack: Egg: one, boiled Ice s.f. drink: 2 cups Lunch: None Snack: Sipping on Ice drink: sips- 1/2 cup Dinner: Tuna fish: 2 oz. Potato, casava, another root ve 1/3 cup Whole avocado: one Ice drink: sipping - 1+ cups Snack: Sipping on ice drink: 1+ cups Nutrition Diagnosis: The second half of First nutrition education assessment appointment is scheduled in the Nutrition Intervention: The second half of First nutrition education assessment appointment is scheduled in the Monitoring and Evaluation: The second half of First nutrition education assessment appointment is scheduled in the Provider: Tamanna Mcintyre RD, LDN documented in this encounter Plan of Treatment Upcoming Encounters Date Type Department Care Team (Late st Contact Info) Description 08/04/2024 2:30 PM EST Office Visit [facility] OPTOMETRY [address] [place] [address] Cristine Alan, OD [address] [place] [address] 08/14/2024 1:30 PM EST Clinical Support [facility] DIABETES/NUTRITION [address] [place] [address] [place] [address] 08/18/2024 1:30 PM EST Office Visit [facility] ADULT DENTAL [address] [place] [address] Venkat Barreto, DDS [address] [place] [address] 11/04/2024 11:15 AM EDT Office Visit [facility] MEDICINE [address] [place] [address] Petra Wiley, KENO CLERK 505 [place] [address] 01/18/2025 3:00 PM EDT Office Visit [facility] CHC ADULT DENTAL 505 [place] [address] Sanaz Nelson documented as of this encounter Visit Diagnoses Diagnosis Body mass index (BMI) of 35.0 to 35.9 in adult- Primary documented in this encounter Additional Health Concerns Assessment Noted Time PHQ-9 Depression Total Score: 13 024 3:11 PM EDT documented as of this encounter Care Teams Psychiatric Clinical Nurse Specialist Relationship Specialty Start Date End Date Petra Wiley FNP [address] [place] [address] PCP - General Family Medicine 03/17/24 Willard Waters [address] Rheumatology 05/17/24September 11 [facility] 3rd [place] [address] Gastroenterology 05/17/24 Juan Sandra MD 575 [place] [address] Hematology and Oncology 05/17/24 Brigid Guy NP [address] [place] [address] Urology 05/17/24 Vicente Mooney MD [address] [place] [address] [address] [place] [address] Obstetrics and Gynecology 05/17/24 Beth Rai MD [address] [place] [address] 140 [place] [address] Neurology 05/17/24 Michell Espinoza 11 [facility] 3rd [place] [address] Cardiology 05/17/24 Shelia Zheng Product Mgmt Dev ManagerPilot Plant Supervisor 09/26/23 documented as of this encounter
--- OUTSIDE RECORDS SUMMARY | 2024-07-30 14:04 | XMS_ITS | Encounter Summary ---
Author Organization [employer] Address [address] [facility] 7t [place] [address] Care Team Providers Care Wood Patternmaker Apprentice Name Role Phone Petra Wiley NIC Primary Care Provider Willard Waters Unavailable [phone] KesslerSeptember Unavailable Juan Sandra MD Unavailable [phone] Brigid Guy NP Unavailable Vicente Mooney MD Unavailable Beth Rai MD Unavailable Michell Espinoza Unavailable Reason for Visit * Reason Onset Date Comments Chart Prep 07/28/2024 Encounter Details Date Type Department Care Team (Late st Contact Info) Description 07/28/2024 Telephone [facility] MED & PEDS [address] [place], [place] [phone] Shireen Eagle MA Chart Prep Social History Tobacco Use Types Packs/Day Years [...] encounter Miscellaneous Notes * Telephone Encounter - Shireen Briscoe MA - 07/28/2024 5:42 PM EST Chart Prep Labs: done Images: done Vaccines due: yes Referrals: pending appt Screenings: n/a Overdue care gaps: PHQ-9, PISQ documented in this encounter Plan of Treatment Upcoming Encounters Date Type Department Care Team (Late st Contact Info) Description 08/04/2024 2:30 PM EST Office Visit [facility] OPTOMETRY [address] [place] [address] Waqas, Cristine, OD 230 [place] [address] 08/14/2024 1:30 PM EST Clinical Support [facility] DIABETES/NUTRITION [address] [place] [address] Tamanna Mcintyre, RD [address] [place] [address] 08/18/2024 1:30 PM EST Office Visit [facility] ADULT DENTAL [address] [place] [address] David Barretovendra, DDS [address] [place] [address] 11/04/2024 11:15 AM EDT Office Visit [facility] MEDICINE [address] [place] [address] Petra Wiley FNP [address] [place] [address] 01/18/2025 3:00 PM EDT Office Visit [facility] ADULT DENTAL 505 [place] [address] Sanaz Nelson documented as of this encounter Visit Diagnoses Not on filedocumented in this encounter Additional Health Concerns Assessment Noted Time PHQ-9 Depression Total Score: 13 03/16/ 024 3:11 PM EDT documented as of this encounter Care Teams Wood Patternmaker Apprentice Relationship Specialty Start Date End Date Petra Wiley FNP [address] [place] [address] PCP - General Family Medicine 03/17/24 Willard Waters [address] Rheumatology 05/17/24KesslerSeptember [address] 3rd [place] [address] Gastroenterology 05/17/24 Juan Sandra MD 575 [place] [address] Hematology and Oncology 05/17/24 Brigid Guy NP [address] [place] [address] Urology 05/17/24 Vicente Mooney MD [address] [place] [address] [address] [place] [address] Obstetrics and Gynecology 05/17/24 Beth Rai MD [address] [place] [address] Dr Rangel [address] [place] [address] Neurology 05/17/24 Michell Espinoza [address] 3rd [place] [address] Cardiology 05/17/24 Shelia Zheng Biologist AideStone Dresser 09/26/23 documented as of this encounter
--- OUTSIDE RECORDS SUMMARY | 2024-07-30 14:04 | XMS_ITS | Encounter Summary ---
Author Organization [employer] Address [address] [facility] 7t [place] [address] Care Team Providers Care Electrician Aircraft Name Role Phone Jennie Murray MD Primary Care Provider [phone] Petra Wiley Primary Care Provider [phone] Willard Waters Unavailable [phone] September Unavailable Juan Sandra MD Unavailable [phone] Brigid Guy NP Unavailable Vicente Mooney MD Unavailable Beth Rai MD Unavailable Michell Espinoza Unavailable Encounter Details Date Type Department Care Team (Late st Contact Info) Description 05/18/2022 Orders Only [facility] MEDICINE [address] [place] [address] Jennie Murray MD [address] [place], [place] [phone] Acute foot pain, unspecified laterality (Primary Dx) Social History Tobacco Use Types [...] Description 08/04/2024 2:30 PM EST Office Visit [facility] OPTOMETRY [address] [place] [address] Cristine Alan, OD 230 [place] [address] 08/14/2024 1:30 PM EST Clinical Support [facility] DIABETES/NUTRITION [address] [place] [address] Tamanna Mcintyre, RD [address] [place] [address] 08/18/2024 1:30 PM EST Office Visit [facility] ADULT DENTAL [address] [place] [address] Venkat Barreto, DDS [address] [place] [address] 11/04/2024 11:15 AM EDT Office Visit [facility] MEDICINE [address] [place] [address] Petra Wiley FNP [address] [place] [address] 01/18/2025 3:00 PM EDT Office Visit [facility] ADULT DENTAL 505 [place] [address] Sanaz Nelson documented as of this encounter Visit Diagnoses Diagnosis Acute foot pain, unspecified laterality- Primary documented in this encounter Care Teams Electrician Aircraft Relationship Specialty Start Date End Date Jennie Murray MD [address] [place] [address] PCP - General Family Medicine 06/23/13 03/16/24 Petra Wiley FNP [address] [place] [address] PCP - General Family Medicine 03/17/24 Willard Waters [address] [place] [address] Rheumatology 05/17/24 Victoria Sumaya [address] 3rd [place] [address] Gastroenterology 05/17/24 Juan Sandra MD 575 [place] [address] Hematology and Oncology 05/17/24 Brigid Guy NP [address] [place] [address] Urology 05/17/24 Vicente Mooney MD [address] [place] [address] [address] [place] [address] Obstetrics and Gynecology 05/17/24 Beth Rai MD [address] [place] [address] [place] [address] Neurology 05/17/24 Michell Espinoza [address] [facility] [address] 3rd [place] [address] Cardiology 05/17/24 Shelia Zheng Paragliding InstructorPublic Health Training Assistant 09/26/23 documented as of this encounter
--- OUTSIDE RECORDS SUMMARY | 2024-07-30 14:04 | XMS_ITS | Encounter Summary ---
Author Organization [facility] Address [address] [place] [address] Care Team Providers Care Bad Work Gatherer Name Role Phone Petra Wiley Primary Care Provider Reason for Referral * Consultation (Routine) - Pending Review Specialty Diagnoses / Procedures Referred By Mehreen linares Referred To Contact Dermatology Diagnoses Erythromelalgia (HCC) Newton Street DO [address] [place] [address] [place] [address] Phone: tel: fax: [facility] 2nd Floor [address] [facility], [place] [address] Phone: tel: fax: Referral ID Status Reason Start Date Expiration Date Visits Requested Visits Authorized [id number] Pending Review Specialty Services Required 07/22/2024 01/21/2026 6 6 Reason for Visit * Reason Comments Follow-up Polyarthralgia * Consultation (Routine) - Authorized Specialty Diagnoses / Procedures Referred By Mehreen linares Referred To Contact Rheumatology Diagnoses Positive NURIA (antinuclear antibody) Kristen Sparrow MD [address] [place] [address] Phone: tel: fax: [facility] [address] [place] [address] Phone: tel: fax: Referral ID Status Reason Start Date Expiration Date Visits Requested Visits Authorized [id number] Authorized Specialty Services Required 03/19/2024 09/18/2025 6 6 Encounter Details Date Type Department Care Team (Latest Contact Info) Description 07/22/2024 12:00 PM EST Office Visit [facility] [address] [place] [phone] Gelatin Powder Mixer: Newton Rangel DO [address] [place] [phone] Erythromelalgia (HCC) (Primary Dx); Polyarthralgia Social History Tobacco Use Types Packs/Day Years Used Date Smoking Tobacco: Never Smokeless Tobacco: Never Alcohol Use Standard Drinks/Week Comments Not Currently 0 (1 standard drink = 0.6 oz pur e alcohol) Comments Unknown Sex and Gender Information Value Date Recorded Sex Assigned at Female 05/20/2024 3:27 PM EST Legal Sex Female 2:51 PM EDT Gender Identity Not on file Sexual Orientation Not on file documented as of this encounter Last Filed [...] Mass Index 32.52 07/22/2024 11:41 AM EST documented in this encounter Plan of Treatment Upcoming Encounters Date Type Department Care Team (Late st Contact Info) Description 11/11/2024 12:00 PM EDT Office Visit [facility] [address] [place] [address] Gelatin Powder Mixer: Newton Rangel DO [address] [place] [address] Scheduled Referrals Name Type Priority Associated Diagnoses Order Schedule Ambulatory referral to Dermatology Outpatient Referral Routine Erythromelalgia (HCC) Expected: 07/22/2024, Expires: 01/19/2025 documented as of this encounter Results * Due to [place] state law, this organization might not be sharing negative HIV tests. * Protein Electrophoresis w/Reflex to Immunofixation, Serum (07/22/2024 1:56 PM EST) Protein, Total 8.1 6.1 - 8.1 g/dL 07/28/2024 7:22 AM EST [place] [facility] Albumin 4.8 3.8 - 4.8 g/dL 07/28/2024 7:22 AM EST [place] [facility] [place] [facility] Alpha 1 Globulin 0.3 0.2 - 0.3 g/dL 07/28/2024 7:22 AM EST [place] [facility] Alpha 2 Globulin 0.7 0.5 - 0.9 g/dL 07/28/2024 7:22 AM EST [place] [facility] [place] [facility] Beta 1 Globulin 0.6 0.4 - 0.6 g/dL 07/28/2024 7:22 AM EST [facility] [place] [facility] Beta 2 Globulin 0.5 0.2 - 0.5 g/dL 07/28/2024 7:22 AM EST [place] [facility] Gamma Globulin 1.2 0.8 - 1.7 g/dL 07/28/2024 7:22 AM EST [facility] Interpretation See Comments 07/28/2024 7:22 AM EST [facility] Comment: Normal Serum Protein Electrophoresis Pattern. No abnormal protein bands (M-protein) detected. Blood Structure of peripheral vein / Unknown Venipuncture / Unknown 07/22/2024 1:56 PM EST 07/22/2024 2:37 PM EST Narrative [facility] - 07/28/2024 7:22 AM EST [facility] Received Date: us Newton [address] DO LAB BLOOD ORDERABLES Final Res ult [facility] [address] [place] [address] 3rd Floor, [place] [address], [place] [phone] [place] [facility] [address] [facility] 3rd Floor, [place] [address], [place] [phone] * (ABNORMAL) Sedimentation Rate (07/22/2024 1:56 PM EST) Sed Rate 29(H) <20 mm/Hr mm/Hr 07/22/2024 2:52 PM EST [facility] Blood Structure of peripheral vein / Unknown Venipuncture / Unknown 07/22/2024 1:56 PM EST 07/22/2024 2:37 PM EST [address] DO LAB BLOOD ORDERABLES Final Res ult [facility] [address] [place] [address], documented in this encounter Visit Diagnoses Diagnosis Erythromelalgia (HCC)- Primary Erythromelalgia Polyarthralgia Pain in joint, multiple sites documented in this encounter Care Teams Bad Work Gatherer Relationship Specialty Start Date End Date Petra Wiley [address] [place] [address] PCP - General Family Medicine 03/19/24 documented as of this encounter
--- OUTSIDE RECORDS SUMMARY | 2024-07-30 14:04 | XMS_ITS | Encounter Summary ---
Author Organization [employer] Address [address] [facility] 7t [place] [address] Care Team Providers Care Strike Plate Attacher Name Role Phone Petra Wiley NIC Primary Care Provider [phone] Willard Waters Unavailable [phone] September Unavailable Juan Sandra MD Unavailable [phone] Brigid Guy NP Unavailable Vicente Mooney MD Unavailable Beth Rai MD Unavailable Michell Espinoza Unavailable Encounter Details Date Type Department Care Team (Latest Contact Info) Description 07/10/2024 Travel Social History Tobacco Use Types Packs/Day Years [...] Description 08/04/2024 2:30 PM EST Office Visit [facility] OPTOMETRY [address] [place] [address] Waqas, Cristine, OD [address] [place] [address] 08/14/2024 1:30 PM EST Clinical Support [facility] DIABETES/NUTRITION [address] [place] [address] Tamanna Mcintyre, ANGELINA [address] [place] [address] 08/18/2024 1:30 PM EST Office Visit [facility] ADULT DENTAL [address] [place] [address] Venkat Barreto DDS [address] [place] [address] 11/04/2024 11:15 AM EDT Office Visit [facility] MEDICINE [address] [place] [address] Petra Wiley, FEATHER DRYING MACHINE OPERATOR [address] [place] [address] 01/18/2025 3:00 PM EDT Office Visit [facility] ADULT DENTAL [address] [place] [address] Sanaz Nelson documented as of this encounter Visit Diagnoses Not on filedocumented in this encounter Additional Health Concerns Assessment Noted Time PHQ-9 Depression Total Score: 13 024 3:11 PM EDT documented as of this encounter Care Teams Strike Plate Attacher Relationship Specialty Start Date End Date Petra Wiley FNP [address] [place] [address] PCP - General Family Medicine 03/17/24 Willard Waters [address] [place] [address] Rheumatology 05/17/24 Victoria Sumaya [address] [place] [address] 3[address] [place] [address] Gastroenterology 05/17/24 Juan Sandra MD [address] [place] [address] Hematology and Oncology 05/17/24 Brigid Guy NP [address] [facility] [address] [place] [address] Urology 05/17/24 Vicente Mooney MD [address] [place] [address] [address] [place] [address] Obstetrics and Gynecology 05/17/24 Beth Rai MD [address] [place] [address] [address] [place] [address] Neurology 05/17/24 Michell Espinoza [address] [place] [address] 3[address] [place] [address] Cardiology 05/17/24 Shelia Zheng Air Compressor EngineerMachine Ii Trimmer 09/26/23 documented as of this encounter
--- OUTSIDE RECORDS SUMMARY | 2024-07-30 14:04 | XMS_ITS | Encounter Summary ---
Author Organization [employer] Address [address] [facility] 7t [place] [address] Care Team Providers Care Special Education Science Teacher Name Role Phone Jennie Murray MD Primary Care Provider Petra Wiley Primary Care Provider Willard Waters Unavailable [phone] September Unavailable Juan Sandra MD Unavailable [phone] Brigid Guy NP Unavailable Vicente Mooney MD Unavailable Beth Rai MD Unavailable Michell Espinoza Unavailable Encounter Details Date Type Department Care Team (Late st Contact Info) Description 05/25/2022 Abstract [facility] CHC ADULT DENTAL [address] [place], [place] [address] Dental, Provider, DDS Social History Tobacco Use [...] Description 08/04/2024 2:30 PM EST Office Visit [facility] OPTOMETRY [address] [place] [address] Cristine Alan, OD [address] [place] [address] 08/14/2024 1:30 PM EST Clinical Support [facility] DIABETES/NUTRITION [address] [place] [address] Tamanna Mcintyre, RD [address] [place] [address] 08/18/2024 1:30 PM EST Office Visit [facility] ADULT DENTAL [address] [place] [address] Venkat Barreto, DDS [address] [place] [address] 11/04/2024 11:15 AM EDT Office Visit [facility] MEDICINE [address] [place] [address] Petra Wiley, BEAD SUPERVISOR [address] [place], [place] [address] 01/18/2025 3:00 PM EDT Office Visit [facility] ADULT DENTAL [address] [place] [address] Sanaz Nelson documented as of this encounter Procedures Procedure Name Priority Date/Time Associated Diagnosis Comments 13 CROWN - PORCELAIN/CERAMIC Routine 05/25/2022 12:00 AM EST 12 CROWN - PORCELAIN/CERAMIC Routine 05/25/2022 12:00 AM EST 9 CROWN - PORCELAIN/CERAMIC Routine 05/25/2022 12:00 AM EST 3 CROWN - PORCELAIN/CERAMIC Routine 05/25/2022 12:00 AM EST 2 CROWN - PORCELAIN/CERAMIC Routine 05/25/2022 12:00 AM EST 20 O COMPOSITE FILLING Routine 05/25/2022 12:00 AM EST 29 DO COMPOSITE FILLING Routine 05/25/2022 12:00 AM EST 30 MOD COMPOSITE FILLING Routine 05/25/2022 12:00 AM EST 4 MOD COMPOSITE FILLING Routine 05/25/2022 12:00 AM EST 18 MO AMALGAM FILLING Routine 05/25/2022 12:00 AM EST 19 MODB AMALGAM FILLING Routine 05/25/2022 12:00 AM EST 14 MO AMALGAM FILLING Routine 05/25/2022 12:00 AM EST 5 DO AMALGAM FILLING Routine 05/25/2022 12:00 AM EST 13 ROOT CANAL Routine 05/25/2022 12:00 AM EST 12 ROOT CANAL Routine 05/25/2022 12:00 AM EST 9 ROOT CANAL Routine 05/25/2022 12:00 AM EST 3 ROOT CANAL Routine 05/25/2022 12:00 AM EST 2 ROOT CANAL Routine 05/25/2022 12:00 AM EST documented in this encounter Visit Diagnoses Not on filedocumented in this encounter Care Teams Special Education Science Teacher Relationship Specialty Start Date End Date Jennie Murray MD [address] [place] [address] PCP - General Family Medicine 06/23/13 03/16/24 Petra Wiley FNP [address] [place] [address] PCP - General Family Medicine 03/17/24 Willard Waters [address] [place] [address] Rheumatology 05/17/24September [address] 3rd [place] [address] Gastroenterology 05/17/24 Juan Sandra MD [address] [place] [address] Hematology and Oncology 05/17/24 Brigid Guy NP [address] [place] [address] Urology 05/17/24 Vicente Mooney MD [address] [facility] [address] [place] [address] Obstetrics and Gynecology 05/17/24 FrediBeth phelps MD [address] [place] [address] [place] [address] Neurology 05/17/24 Michell Espinoza [address] [place] [address] 3rd [place] [address] Cardiology 05/17/24 Shelia Zheng Bar PilotAirset Caster 09/26/23 documented as of this encounter
--- OUTSIDE RECORDS SUMMARY | 2024-07-30 14:04 | XMS_ITS | Encounter Summary ---
Author Organization [employer] Address [address] [facility] 7t [place] [address] Care Team Providers Care Survey Party Chief Name Role Phone Petra Wiley NIC Primary Care Provider Willard Waters Unavailable [phone] September Unavailable Juan Sandra MD Unavailable [phone] Brigid Guy NP Unavailable Vicente Mooney MD Unavailable Beth Rai MD Unavailable Michell Espinoza Unavailable Encounter Details Date Type Department Care Team (Latest Contact Info) Description 07/02/2024 Travel Social History Tobacco Use Types Packs/Day [...] Description 08/04/2024 2:30 PM EST Office Visit [facility] OPTOMETRY [address] [place] [address] Waqas, Cristine, OD [address] [place] [address] 08/14/2024 1:30 PM EST Clinical Support [facility] DIABETES/NUTRITION [address] [place] [address] Tamanna Mcintyre, ANGELINA [address] [place] [address] 08/18/2024 1:30 PM EST Office Visit [facility] ADULT DENTAL [address] [place] [address] Venkat Barreto DDS [address] [place] [address] 11/04/2024 11:15 AM EDT Office Visit [facility] MEDICINE [address] [place] [address] Petra Wiley, GENERAL ASSISTANT [address] [place] [address] 01/18/2025 3:00 PM EDT Office Visit [facility] ADULT DENTAL [address] [place] [address] Sanaz Nelson documented as of this encounter Visit Diagnoses Not on filedocumented in this encounter Additional Health Concerns Assessment Noted Time PHQ-9 Depression Total Score: 13 024 3:11 PM EDT documented as of this encounter Care Teams Survey Party Chief Relationship Specialty Start Date End Date Petra Wiley FNP [address] [place] [address] PCP - General Family Medicine 03/17/24 Willard Waters [address] [place] [address] Rheumatology 05/17/24 Victoria Sumaya [address] [place] [address] 3[address] [place] [address] Gastroenterology 05/17/24 Juan Sandra MD [address] [place] [address] Hematology and Oncology 05/17/24 Brigid Guy NP [address] [facility] [address] [place] [address] Urology 05/17/24 Vicente Mooney MD [address] [place] [address] [address] [place] [address] Obstetrics and Gynecology 05/17/24 Beth Rai MD [address] [place] [address] [address] [place] [address] Neurology 05/17/24 Michell Espinoza [address] [place] [address] 3[address] [place] [address] Cardiology 05/17/24 Shelia Zheng Bank Note DesignerManager Mortgage 09/26/23 documented as of this encounter
--- OUTSIDE RECORDS SUMMARY | 2024-07-30 14:04 | XMS_ITS | Encounter Summary ---
Author Organization [employer] Address [address] [place] [address] 7t [place] [address] Care Team Providers Care Hospital Education Coordinator Name Role Phone Jennie Murray MD Primary Care Provider [phone] Petra Wiley Primary Care Provider Willard Waters Unavailable [phone] September Unavailable Juan Sandra MD Unavailable [phone] Brigid Guy NP Unavailable Vicente Mooney MD Unavailable Beth Rai MD Unavailable Michell Espinoza Unavailable Reason for Visit * Reason Onset Date Comments medication 09/19/2022 Encounter Details Date Type Department Care Team (Late st Contact Info) Description 09/19/2022 Telephone [facility] CHC ADULT DENTAL [address] [place], [place] [phone] Venkat Barreto DDS [address] [place] [address] medication Social History Tobacco Use Types Packs/Day Years Used Date Smoking Tobacco: Never Passive Smoke Exposure: Never Smokeless Tobacco: Never Alcohol Use Standard Drinks/Week Comments Never 0 (1 standard drink = 0.6 oz pur e alcohol) Depression Answer Date Recorded Patient Health Questionnaire-9 Score 0 07/04/2022 Depression Answer Date Recorded Patient Health Questionnaire-2 Score 0 07/04/2022 Comments No Sex and Gender Information Value Date Recorded Sex Assigned at Female 04/16/2022 10:20 AM EDT Legal Sex Female 10:20 AM EDT Gender Identity Female 04/16/2022 10:20 AM EDT Sexual Orientation Straight 04/16/2022 10 :20 AM EDT COVID-19 Exposure Response Date Recorded In the last 10 days, have yo u been in contact with someone who was confirmed or suspected to have Coronavirus/COVID-19? No / Unsure 09/19/2022 11:17 AM EDT documented as of this encounter Miscellaneous Notes * Telephone Encounter - Isabella Mejia - 09/19/2022 2:34 PM EDT Script was sent for Augementin to [facility] in [place]. Patient went in to poultry picking machine tender script and they stated there was nothing there. Contacted [facility] and they stated that nationwide there was a shut down on their system for about 3 hours so it doesn't look like they received it. Can it be resent for patient? documented in this encounter Plan of Treatment Upcoming Encounters Date Type Department Care Team (Late st Contact Info) Description 08/04/2024 2:30 PM EST Office Visit [facility] OPTOMETRY [address] [place] [address] Waqas, Cristine, OD [address] [place] [address] 08/14/2024 1:30 PM EST Clinical Support [facility] DIABETES/NUTRITION [address] [place] [address] Tamanna Mcintyre, RD [address] [place] [address] 08/18/2024 1:30 PM EST Office Visit [facility] ADULT DENTAL [address] [place] [address] Venkat Barreto, DDS [address] [place] [address] 11/04/2024 11:15 AM EDT Office Visit [facility] MEDICINE [address] [place] [address] Petra Wiley FNP [address] [place] [address] 01/18/2025 3:00 PM EDT Office Visit [facility] ADULT DENTAL [address] [place] [address] Sanaz Nelson documented as of this encounter Visit Diagnoses Not on filedocumented in this encounter Additional Health Concerns Assessment Noted Time PHQ-9 Depression Total Score: 0 07/04/19 23 3:01 PM EST documented as of this encounter Care Teams Hospital Education Coordinator Relationship Specialty Start Date End Date Jennie Murray MD [address] [place] [address] PCP - General Family Medicine 06/23/13 03/16/24 Petra Wiley FNP [address] [place] [address] PCP - General Family Medicine 03/17/24 Willard Waters [address] [place] [address] Rheumatology 05/17/24 Victoria Sumaya [address] 3rd [place] [address] Gastroenterology 05/17/24 Juan Sandra MD [address] [place] [address] Hematology and Oncology 05/17/24 Brigid Guy NP [address] [place] [address] Urology 05/17/24 Vicente Mooney MD [address] [place] [address] [address] [place] [address] Obstetrics and Gynecology 05/17/24 Beth Rai MD [address] [place] [address] [place] [address] Neurology 05/17/24 Michell Espinoza [address] [facility] 3rd [place] [address] Cardiology 05/17/24 Shelia Zheng Monitor And Storage Bin TenderHand Trimmer 09/26/23 documented as of this encounter
--- OUTSIDE RECORDS SUMMARY | 2024-07-30 14:04 | XMS_ITS | Encounter Summary ---
Author Organization [employer] Address [address] [facility] 7[address] [place] [address] Care Team Providers Care Limehouse Worker Name Role Phone Petra Wiley NIC Primary Care Provider [phone] Willard Waters Unavailable [phone] September Unavailable Juan Sandra MD Unavailable [phone] Brigid Guy NP Unavailable Vicente Mooney MD Unavailable Beth Rai MD Unavailable [phone] Michell Espinoza Unavailable Encounter Details Date Type Department Care Team (Late st Contact Info) Description 05/18/2024 Orders Only [facility] External Provider, [facility] Social History Tobacco Use Types Packs/Day Years [...] Description 08/04/2024 2:30 PM EST Office Visit [facility] OPTOMETRY [address] [place] [address] Waqas, Cristine, OD [address] [place] [address] 08/14/2024 1:30 PM EST Clinical Support [facility] DIABETES/NUTRITION [address] [place] [address] Tamanna Mcintyre, RD [address] [place] [address] 08/18/2024 1:30 PM EST Office Visit [facility] ADULT DENTAL [address] [place] [address] Venkat Barreto, DDS [address] [place] [address] 11/04/2024 11:15 AM EDT Office Visit [facility] MEDICINE [address] [place] [address] Petra Wiley, RECRUITER [address] [place] [address] 01/18/2025 3:00 PM EDT Office Visit [facility] ADULT DENTAL [address] [place] [address] Sanaz Nelson documented as of this encounter Procedures Procedure Name Priority Date/Time Associated Diagnosis Comments US PELVIS TRANSVAGINAL Routine 05/18/2024 3:57 PM EST documented in this encounter Results * US Pelvis Transvaginal (05/18/2024 3:57 PM EST) Anatomical Region Laterality Modality Pelvis Ultrasound 05/18/2024 3:57 PM EST Narrative 07/07/2024 8:35 AM EST ? [facility] ?[address] ?[place] [address] ? Ultrasound Report ? Signed ? Patient: Ambika Mcdermott ?MR#: [id number] ? : 1985 ?Acct:[id number] ? Age/Sex: 39 / F ?ADM Date: 05/18/24 ? Loc: HO.US ? Attending Dr: Vicente Mooney MD ? Ordering Physician: Vicente Mooney MD ?? Date of Service: 05/18/24 ?? Procedure(s): US pelvic and transvaginal ?? Accession Number(s): [id number] ? cc: Petra Wiley; Vicente Mooney MD ? EXAMINATION: ? US PELVIS ? CLINICAL INFORMATION: ? Lesion of ovary, last menstrual period 04/22/2024. ? COMPARISON: ?? None available. ? TECHNIQUE: ?? Ultrasound of the pelvis is performed using both transabdominal and ?? transvaginal transducers along with Doppler. Transvaginal imaging is ?? performed due to inadequate visualization transabdominally. ? FINDINGS: ?? The anteverted, retroflexed uterus measures 8.0 x 4.5 x 6.1 cm. ? 1.1 x 0.8 x 1.2 cm and 1.7 x 1.4 x 1.7 cm uterine masses are ?? characteristic of fibroids. Previous exam demonstrated a 1.2 x 1.2 x ?? 1.4 cm uterine mass. ? Endometrial thickness is 16 mm. ? Small amount free fluid. ? Nabothian cysts. ? Right ovary measures 4.2 x 1.7 x 2.2 cm, volume 8.2 mL. Small amount of ?? free fluid adjacent to the RIGHT ovary. ? Left ovary measures 1.8 x 1.1 x 1.5 cm, volume 1.6 mL. Previously ?? identified left ovarian hyperechoic area is not visualized today, ?? although visualization is limited due to bowel gas. ? US/US pelvic and transvaginal ?? IMPRESSION: ?? 1. Previously identified 0.7 cm hyperechoic left ovarian lesion is not ?? identified on the current exam, although visualization is limited due ?? to bowel gas. ? 2. Endometrial thickness is 6 mm. ? 3. Asymmetric enlargement of the right ovary greater than left. Small ?? amount of free fluid adjacent to the right ovary. Limited visualization ?? of the right ovary. ? 4. Uterine masses measuring 1.1 x 0.8 x 1.2 cm and 1.7 x 1.4 x 1.7 cm ?? are characteristic of fibroids. Previous exam demonstrated a 1.2 x 1.2 ?? x 1.4 cm uterine mass. ? Electronically signed by: ??Che Oswald MD ??07/07/2024 08:32 AM EST ?? RP ? Dictated By: ?Che Oswald MD ? Signed By: ?<Electronically signed by Che Oswald MD in OV> ? 07/07/24 0832 ? DD/ 1557 ? TD/TT: 05/18/24 1620 ? Chicken Cleaner: ? Procedure Note Rain Chowdary - 07/07/[address] [address] Ultrasound Report Signed Patient: Meenakshi McdermottmarleneMR#: [id number] : 1985Acct:[id number] Age/Sex: 39 / FADM Date: 05/18/24 Loc: HO.US Attending Dr: Vicente Mooney MD Ordering Physician: Vicente Mooney MD Date of Service: 05/18/24 Procedure(s): US pelvic and transvaginal Accession Number(s): [id number] cc: Petra Wiley; Vicente Mooney MD EXAMINATION: US PELVIS CLINICAL INFORMATION: Lesion of ovary, last menstrual period 04/22/2024. COMPARISON: None available. TECHNIQUE: Ultrasound of the pelvis is performed using both transabdominal and transvaginal transducers along with Doppler. Transvaginal imaging is performed due to inadequate visualization transabdominally. FINDINGS: The anteverted, retroflexed uterus measures 8.0 x 4.5 x 6.1 cm. 1.1 x 0.8 x 1.2 cm and 1.7 x 1.4 x 1.7 cm uterine masses are characteristic of fibroids. Previous exam demonstrated a 1.2 x 1.2 x 1.4 cm uterine mass. Endometrial thickness is 16 mm. Small amount free fluid. Nabothian cysts. Right ovary measures 4.2 x 1.7 x 2.2 cm, volume 8.2 mL. Small amount of free fluid adjacent to the RIGHT ovary. Left ovary measures 1.8 x 1.1 x 1.5 cm, volume 1.6 mL. Previously identified left ovarian hyperechoic area is not visualized today, although visualization is limited due to bowel gas. US/US pelvic and transvaginal IMPRESSION: 1. Previously identified 0.7 cm hyperechoic left ovarian lesion is not identified on the current exam, although visualization is limited due to bowel gas. 2. Endometrial thickness is 6 mm. 3. Asymmetric enlargement of the right ovary greater than left. Small amount of free fluid adjacent to the right ovary. Limited visualization of the right ovary. 4. Uterine masses measuring 1.1 x 0.8 x 1.2 cm and 1.7 x 1.4 x 1.7 cm are characteristic of fibroids. Previous exam demonstrated a 1.2 x 1.2 x 1.4 cm uterine mass. Electronically signed by: Che Oswald MD 07/07/2024 08:32 AM [facility] [place] Dictated By: Che Oswald MD Signed By: <Electronically signed by Che Oswald MD in OV> 07/07/24 0832 DD/ 1557 TD/TT: 05/18/24 1620 Chicken Cleaner: [facility] External Provider IMG PROCEDURES Edited Result - Final documented in this encounter Visit Diagnoses Not on filedocumented in this encounter Additional Health Concerns Assessment Noted Time PHQ-9 Depression Total Score: 13 03/16/ 024 3:11 PM EDT documented as of this encounter Care Teams Limehouse Worker Relationship Specialty Start Date End Date Petra Wiley FNP [address] [place] [address] PCP - General Family Medicine 03/17/24 Willard Waters [address] [place] [address] Rheumatology 05/17/24 Victoria Sumaya [address] [place] [address] Gastroenterology 05/17/24 Juan Sandra MD [address] [place] [address] Hematology and Oncology 05/17/24 Brigid Guy NP [address] [facility] [address] [place] [address] Urology 05/17/24 Vicente Mooney MD [address] [place] [address] [address] [place] [address] Obstetrics and Gynecology 05/17/24 Beth Rai MD [address] [place] [address] [address] [place] [address] Neurology 05/17/24 Michell Espinoza [address] [place] [address] Cardiology 05/17/24 Shelia Zheng Rug Cleaner HandRegistered Radiologic Technologist 09/26/23 documented as of this encounter
--- OUTSIDE RECORDS SUMMARY | 2024-07-30 14:04 | XMS_ITS | Encounter Summary ---
Author Organization [employer] Address [address] [facility] [address] [place] [address] Care Team Providers Care Rubber Press Operator Name Role Phone Petra Wiley NIC Primary Care Provider Willard Waters Unavailable [phone] September Unavailable Juan Sandra MD Unavailable [phone] Brigid Guy NP Unavailable Vicente Mooney MD Unavailable Beth Rai MD Unavailable Michell Espinoza Unavailable Encounter Details Date Type Department Care Team (Latest Contact Info) Description 07/28/2024 Travel Social History Tobacco Use Types Packs/Day [...] Description 08/04/2024 2:30 PM EST Office Visit [facility] OPTOMETRY [address] [place] [address] Waqas, Cristine, OD [address] [place] [address] 08/14/2024 1:30 PM EST Clinical Support [facility] DIABETES/NUTRITION [address] [place] [address] Tamanna Mcintyre, ANGELINA [address] [place] [address] 08/18/2024 1:30 PM EST Office Visit [facility] ADULT DENTAL [address] [place] [address] Venkat Barreto DDS [address] [place] [address] 11/04/2024 11:15 AM EDT Office Visit [facility] MEDICINE [address] [place] [address] Petra Wiley, MANAGING COGNITIVE ENGINEER [address] [place] [address] 01/18/2025 3:00 PM EDT Office Visit [facility] ADULT DENTAL [address] [place] [address] Sanaz Nelson documented as of this encounter Visit Diagnoses Not on filedocumented in this encounter Additional Health Concerns Assessment Noted Time PHQ-9 Depression Total Score: 13 024 3:11 PM EDT documented as of this encounter Care Teams Rubber Press Operator Relationship Specialty Start Date End Date Petra Wiley FNP [address] [place] [address] PCP - General Family Medicine 03/17/24 Willard Waters [address] [place] [address] Rheumatology 05/17/24 Victoria Sumaya [address] [place] [address] [address] [place] [address] Gastroenterology 05/17/24 Juan Sandra MD [address] [place] [address] Hematology and Oncology 05/17/24 Brigid Guy NP [address] [facility] [address] [place] [address] Urology 05/17/24 Vicente Mooney MD [address] [place] [address] [address] [place] [address] Obstetrics and Gynecology 05/17/24 Beth Rai MD [address] [place] [address] [address] [place] [address] Neurology 05/17/24 Michell Espinoza [address] [place] [address] [address] [place] [address] Cardiology 05/17/24 Shelia Zheng Piece Goods ClerkWet Process Operator 09/26/23 documented as of this encounter
--- OUTSIDE RECORDS SUMMARY | 2024-07-30 14:04 | XMS_ITS | Clinical Summary ---
Author Organization [employer] Address [address] [place] [address] [address] [place] [address] Care Team Providers Care Bereavement Counselor Name Role Phone Petra Wiley NIC Primary Care Provider Willard Waters Unavailable [phone] September Unavailable Juan Sandra MD Unavailable [phone] Brigid Guy NP Unavailable Vicente Mooney MD Unavailable Beth Rai MD Unavailable [phone] Michell Espinoza Unavailable Allergies Active Allergy Reactions Criticality Noted Date Comments Citalopram 07/04/2022 Duloxetine 12/03/2014 Other reaction(s): GI Problems Duloxetine Hcl 09/12/2022 Iodinated Contrast Media 07/04/2022 Morphine High 01/14/2012 Other reaction(s): Altered Heart Rate, Trouble Breathing, chest pain Tramadol High 12/03/2014 Other reaction(s): Vomit Medications * This document contains information received from the source organization and may not represent a complete record from that organization. acetaminophen (Tylenol) 500 MG tablet take 1 tablet by oral route every 8 hours as needed not to exceed 6 tablets per 24hrs 022 Active famotidine (Pepcid) 40 MG tablet TOME ADRY TABLETA POR V A ORAL TODOS LOS D AL ACOSTARSE 022 Active Bisacodyl EC 5 MG EC tablet TAKE 2 TABLETS ORALLY BEDTIME FOR 30 DAYS Active dicyclomine (Bentyl) 10 MG capsule TOME ADRY C PSULA MINDA VECES AL D A Active Creon 99882-063822 units capsule delayed-release particles capsule TOME ADRY C PSULA MINDA VECES AL D A WITH MEALS/SNACKS Active Simethicone Ultra Strength 180 MG capsule TAKE 1 CAPSULE ORALLY 2 TIMES A DAY FOR 30 DAYS AFTER MEALS Active Sodium Fluoride (PreviDent 5000 Booster Plus) 1.1 % paste Apply a smear of paste on the brush; brush thoroughly twice daily. Spit, do not rinse. 112 g 2 Active LORazepam (Ativan) 1 MG tablet TAKE 1/2 TABLET BY MOUTH IN THE MORNING AND 1 TABLET AT BEDTIME DIRECTED Active ferrous gluconate (Fergon) 324 (38 Fe) MG tablet TAKE 1 PILL EVERY SATURDAY, SATURDAY, AND SATURDAY. TAKE WITH A FULL GLASS OF WATER OR VIT C CONTAINING JUICE, AND IDEALLY 1 HOUR BEFORE A MEAL OR 2 HOURS AFTER A MEAL 36 tablet Active propranolol (Inderal) 20 MG tablet TAKE 1 TABLET BY MOUTH 2 TIMES A DAY FOR 30 DAYS FOR HEART PALPITATION Active cyclobenzaprine (Flexeril) 5 MG tablet Take 1 tablet (5 mg) by mouth 3 times daily for 10 days. 30 tablet 2 Active Blood Pressure kit 1 each 2 times daily. 1 kit 024 2024 Active methocarbamol (Robaxin) 750 MG tabletIndication s:Fibromyalgia,N jorge pain Take 1 tablet (750 mg) by mouth 4 times daily for 10 days. 40 tablet Active butalbital-aceta minophen-caffein e 50-325-40 MG tablet TOME ADRY TABLETA CADA OCHO HORAS CUANDO SEA NECESARIO FOR 30 DAYS Active Banophen 25 MG capsule PLEASE SEE ATTACHED FOR DETAILED DIRECTIONS Active albuterol 108 (90 Base) MCG/ACT inhalerIndicatio ns:Mild persistent asthma without complication Inhale 2 puffs Every 4-6 hours as needed for wheezing or shortness of breath. 18 g [address] Active [address] capsuleIndicatio ns:Gastroparesis ,Gastroesophagea l reflux disease without esophagitis Take 1 capsule (60 mg) by mouth Once per day. Do not crush or chew. 90 capsule Active fexofenadine (Gretchen) 180 MG tabletIndication s:Seasonal allergies Take 1 tablet (180 mg) by mouth Once per day. 90 tablet 3 024 2024 Active cholecalciferol (Vitamin D-3) 25 MCG (1000 UT) tabletIndication s:Vitamin D insufficiency Take 1 tablet (25 mcg) by mouth Once per day. 90 tablet 1 Active Tirzepatide 2.5 MG/0.5ML solution auto-injectorInd ications:Class 2 obesity with body mass index (BMI) of 35.0 to 35.9 in adult, unspecified obesity type, unspecified whether serious comorbidity present Inject 2.5 mg under the skin 1 (one) time per week. 2 mL 2 025 Active Azelastine HCl 137 MCG/SPRAY solutionIndicati ons:Seasonal allergies ADMINISTER 1 SPRAY EACH NOSTRIL IF NEEDED IN THE MORNING AND AT BEDTIME FOR RHINITIS OR ALLERGIES. 30 mL 3 025 Active cephalexin (Keflex) 500 MG capsuleIndicatio ns:Hordeolum externum of left lower eyelid Take 1 capsule (500 mg) by mouth 3 times daily for 7 days. 21 capsule 025 2024 Active fluticasone furoate (Arnuity Ellipta) 100 MCG/ACT inhalerIndicatio ns:Asthma, unspecified asthma severity, unspecified whether complicated, unspecified whether persistent Inhale 1 puff Once per day. Rinse mouth with water after use to reduce aftertaste and incidence of candidiasis. Do not swallow. 1 each 11 025 Active pregabalin (Lyrica) 75 MG capsuleIndicatio ns:Fibromyalgia Take 1 capsule (75 mg) by mouth at bedtime. 30 capsule 1 025 2025 Active azelastine (Astelin) 0.1 % nasal sprayIndications :Seasonal allergies Administer 1 spray into each nostril if needed in the morning and at bedtime for rhinitis or allergies. 30 mL 3 024 2024 Discontinued fluticasone furoate (Arnuity Ellipta) 100 MCG/ACT inhalerIndicatio ns:Asthma, unspecified asthma severity, unspecified whether complicated, unspecified whether persistent Inhale 1 puff Once per day. Rinse mouth with water after use to reduce aftertaste and incidence of candidiasis. Do not swallow. 1 each 11 024 2024 Discontinued(R eorder (will not trigger notification to Pharmacy)) pregabalin (Lyrica) 50 MG capsuleIndicatio ns:Fibromyalgia Take 1 capsule (50 mg) by mouth at bedtime. 30 capsule 3 024 2024 Discontinued(D ose adjustment) fluconazole (Diflucan) 150 MG tabletIndication s:Hordeolum externum of left lower eyelid Take 1 tablet (150 mg) by mouth 1 (one) time for 1 dose. 1 tablet 025 2024 Discontinued(T herapy completed) Active Problems Problem Noted Date Diagnosed Date Nephrolithiasis 07/29/2024 Overview (07/29/2024): 04/15/24: US Renal Bl ordered by Brigid LUCERO. Identified bilateral nonobstructing kidney stones. History of nutritional disorder 07/27/2024 History of musculoskeletal disorder 07/27/2024 Hordeolum externum of left lower eyelid 07/24/19 25 Palpitations 05/17/2024 Overview (05/17/2024): Followed by [facility] Cards Continues on Propranolol 20mg BID (through Cards) Class 1 obesity with body ma ss index (BMI) of 32.0 to 32.9 in adult 05/17/2024 Assessment & Plan (07/29/2024 4:08 PM EST): - Cont following with senior electronics design engineer and healthy lifestyle interventions Assessment & Plan (05/17/2024 5:26 PM EST): Reviewed indications for pharmacotherapy with patient, which is treatment for patient w/ obesity or a patient with a BMI > 27 w/ CV risk factors who have failed lifestyle modifications alone. These are always prescribed in combination with ongoing lifestyle modification; and will be titrated up from the lowest dose. Will start patient on Wegovy, given know efficacy and proven benefits to reduce the risk of cardiovascular events in patients who are overweight or obese and have cardiovascular disease, following of the SELECT trial results. Reviewed mechanism of action with patient. Discussed side effects with patient: nausea, vomiting, diarrhea & risk of pancreatitis. No contraindications identified: , hx of pancreatitis, hx of medullary thyroid cancer or MEN 2. Campus Security Director referral offered. Recommended to decrease soda and sugary beverage consumption. Recommended at least 20 g per meal of protein to assist with satiety. Recommended at least 150 min/week of moderate intensity exercise. Referral to Nutrition PA for Wegovy initiated 05/17/24 Seasonal allergies 03/17/2024 Overview (03/17/2024): Cont Fexofenadine 180mg daily PRN Cont Azelastine nasal spray BID PRN History of bruising easily 03/17/2024 Overview (03/17/2024): Followed by [facility] Heme/Onc - Dr. Sandra Per consult Jan 2024: extensive heme w/up including factor 7, 9, von Willebrand's profile. There were all normal. Suspect platelet function defect, which is common in young women. Bipolar disorder, unspecified 03/16/2024 Generalized anxiety disorder with panic attacks 03/16/2024 Overview (03/17/2024): Following with psych team Therapist: Chioma Lundberg Psychiatrist: Dr. Auguste Reports current med regimen: Lorazepam 1mg BID Previous med regimen included: mirtazapine, paroxetine, and trazodone Assessment & Plan (03/16/2024 4:20 PM EDT): PROGRESS NOTE: ID: Ambika is a 39 y.o. White straight-identified cis-female with previous documented hx of Anxiety, Bipolar Disorder , and Trauma MH services including OP Psychotherapy psychopharmacology who presents for Bipolar, Anxiety, and Panic Attack During IBH Consult Ambika presenting with crying spells , hopelessness, irritable mood, loss of interests/pleasure , isolating, change in appetite or weight reduce appetite, changes in sleep difficulty falling asleep and difficulty staying asleep , psychomotor agitation, fatigue/loss of energy, difficulty concentrating, excessive worry/anxiety, difficulty controlling worry, anxiety/worry associated to restlessness and/or feeling keyed-up/On edge , easily fatigued , difficulty concentrating and/or mind going blank , irritability, muscle tension , and sleep disturbance difficulty falling asleep and difficulty staying asleep , Fear , and sense of dread , Abnormally elevated mood, Flight of ideas, Excessive goal directed activity, and Other: racing thoughts, rapid speech, , Intrusive trauma memories and thoughts, Avoidance of trauma reminders/triggers, Increased startle response, Fear of social judgement, Difficulty with crowds, Feelings of being out of control, and Feelings of impending doom, and At least one of the attacks has been followed by 1 month of Persistent concern/worry of panic attacks or their consequences ; for a period of 18+ mo, for most or all symptoms in the context of patient not adhering to Psych. Meds treatment, chronic health issues, lack of trust. PLAN: (check all that apply) Continue with current services (defined as services in the past 12 months) Patient to utilized coping skills provided, Patient to take medication as prescribed. PTSD (post-traumatic stress disorder) 03/16/2024 Iron deficiency anemia 03/12/2024 Overview (07/29/2024): Lab Results Component Value Date HGB 11.5 (L) 03/18/2024 HGB 11.0 (L) 04/17/2021 HCT 36.5 (L) 03/18/2024 Following with [facility] Heme/Onc - Dr. Turner Assessment & Plan (07/29/2024 3:40 PM EST): - Reports that she started with Slow-FE OTC iron supplements and have been working well Subcutaneous mass of right upper extremity 03/12 Subcutaneous mass of abdominal wall 03/12/2024 Assessment & Plan (07/29/2024 4:00 PM EST): - Recurring densities of fat distribution around body, primarily upper extremities (under axilla), around neck, as well as abdomen - Differential includes lipoma vs Madelung disease vs physiological vs other Per NIH: Madelung disease or multiple symmetric lipomatosis (MSL) is a rare entity among the overgrowth syndromes. It is characterized by painless non-encapsulated and symmetric fatty deposits in the neck, torso, mammary, and abdominal areas, and in the upper and lower limbs. - Has consulted with Surgery team in [facility] for consideration of excision. Per their consult Mar 2024, identified area has normal lobular fat, no discrete lipoma or nodules. Plan: conservative measures - Referral to genetics for further eval and consideration of pedigree Assessment & Plan (05/17/2024 5:20 PM EST): - Recurring densities of fat distribution around body, primarily upper extremities (under axilla), around neck, as well as abdomen - Differential includes lipoma vs Madelung disease vs physiological vs other Per NIH: Madelung disease or multiple symmetric lipomatosis (MSL) is a rare entity among the overgrowth syndromes. It is characterized by painless non-encapsulated and symmetric fatty deposits in the neck, torso, mammary, and abdominal areas, and in the upper and lower limbs. - Has consulted with Surgery team in [facility] for consideration of excision. Per their consult Mar 2024, identified area has normal lobular fat, no discrete lipoma or nodules. Plan: conservative measures Abnormal uterine bleeding 12/27/2023 Overview (07/29/2024): Following with [facility] COMPOSING RO[facility] - Dr. Mooney EMB performed 04/14/24. Path: Benign late secretory endometrium; no atypia or carcinoma 05/18/2024: Pelvic ultrasound ordered by Dr. Mooney. Endometrial thickness 6 mm. Right ovary greater than left. Uterine masses characteristic of fibroid. Previous left ovarian lesion not identified on current exam. Tenosynovitis of both hands 07/23/2023 Assessment & Plan (07/23/2023 6:59 PM EST): I immobilized both wrists with wrist brace, counseled to keep it overnight and during the day time for not more than 3-4h. Use diclofenac gel bid + Tylenol prn pain Refer to OT Fu with PCP in 3-4w Vitamin D insufficiency 07/23/2023 Overview (05/17/2024): Lab Results Component Value Date [id number] 19.9 (L) 03/18/2024 [id number] 19 (A) 05/08/2023 - Cont Vit D 1000 units daily Assessment & Plan (03/17/2024 8:54 PM EDT): -Repeat Vit D lab -Cont with Vit D Assessment & Plan (07/23/2023 7:02 PM EST): On labs from 04/2023. Since she has arthralgias even on replacement dose, I will increase it to 50k U/w x 6m FU w PCP Healthcare maintenance 06/03/2023 Overview (05/17/2024): Pap NIL/HPV Neg 11/12/2019 Dental: [facility] Dental Last PE: 06/03/23 Hep B Immune: Mar 2024 Gastroesophageal reflux disease without esophagi tis 06/03/2023 Overview (06/03/2023): ?? Followed by [facility] YASSINE Kessler APRN ?? Continues famotidine and Dexliant through GI Irritable bowel syndrome with constipation 06/03 Overview (03/17/2024): Followed up [facility] YASSINE Kessler APRN Continues Bentyl TID Continues Bisacodyl 10mg nightly Dysphagia, oropharyngeal phase 06/03/2023 Overview (06/03/2023): ?? Followed by [facility] YASSINE Kessler APRN Gastroparesis 06/03/2023 Overview (03/17/2024): Followed by [facility] GI Continues with the following medication regimen for multiple GI symptoms and conditions: Creon, famotidine, psyllium, dicyclomine, simethicone, and Dexliant Previous medications: carafate NURIA positive 06/03/2023 Overview (07/29/2024): Previous followed by [facility] Rheum - Dr. Waters May 2024: Established with [facility] Rheum - Dr. Street NURIA positive 2020: 1:160, anti dna, nicholas, ESR, CRP all wnl Disorder of sesamoid bone of foot 06/03/2023 Overview (06/03/2023): -Left lateral sesamoid stress fx identified Jul 2022 at [facility] -Plan for immobilization in short walking boot and follow up 6 weeks Assessment & Plan (06/03/2023 10:28 PM EST): Plan to request latest records from [facility] and follow up with PCP to discuss eligibility handicap placard. Fibromyalgia 08/02/2022 Overview (07/29/2024): -Previously: Lyrica 75mg nightly through [facility] Physiatry/Rheum -Lyrica rx from PCP as of Apr 2024. Started on Lyrica 50mg nightly PRN. Increase to 75mg nightly on 07/29/24. -Following with psych team. -Cont cyclobenzaprine PRN muscle spasms. Reviewed med use and safety. Assessment & Plan (07/29/2024 3:51 PM EST): -Encouraged use of pharm and non-pharm tx modalities Assessment & Plan (06/06/2023 9:39 AM EST): -Continues Lyrica 50mg nightly through Rheum -Following with psych team. Current medication regimen through psychiatrist includes: Paxil, trazodone, and lorazepam PRN -Switch tizanidine to cyclobenzaprine PRN muscle spasms. Reviewed med use and safety. Asthma 04/27/2022 06/03/2023 Overview (05/17/2024): -Maintenance: Arnuity Ellipta 1 puff daily -Rescue: albuterol PRN Assessment & Plan (03/17/2024 9:00 PM EDT): -Previously using Flovent sporadically throughout the week on PRN basis. Using rescue less than 2x/week. Change in insurance formulary - given pattern of use discussed Symbicort therapy instead. Pt in agreement with trial, reviewed med use and SE. Assessment & Plan (06/06/2023 9:37 AM EST): -Maintenance: Flovent 110mcg/act 1 puff BID -Cont albuterol PRN -Well controlled Temporomandibular joint disorder 11/12/2017 Resolved Problems Problem Noted Date Diagnosed Date Resolved Date Polyarthralgia 03/12/2024 03/17/2024 Neck pain 03/12/2024 03/17/2024 Precordial pain 07/23/2023 03/17/2024 Assessment & Plan (07/23/2023 6:57 PM EST): Given features of pain, I sent her to ED with her partner Guslhan to ro perforated ulcer specially due to hx iron def anemia and taking ibuprofen this week. They agreed to go tonight to ED. Dental caries 08/02/2022 03/17/2024 Dental plaque 08/02/2022 03/17/2024 Chronic idiopathic constipation 07/26/2022 06/03/2023 Assessment & Plan (06/03/2023 1:45 PM EST): Sulfacrate, creon, famotidine, psyillium, dicyclomine =, simethicone, Assessment & Plan (07/26/2022 1:55 PM EST): Will start on metamucil, oriented to increase fiber in diet, and fluid Pain in wrist 11/12/2017 03/17/2024 Somatization disorder 01/14/20122023 Encounters Date Type Department Care Team Description 07/29/2024 10:30 AM EST Office Visit [facility] MEDICINE [address] [place] [phone] Petra Wiley, SVP [employer] Asthma, unspecified asthma severity, unspecified whether complicated, unspecified whether persistent (Primary Dx); Fibromyalgia; Breast pain, right; Nephrolithiasis; Irritable bowel syndrome with constipation; Gastroparesis; Abnormal uterine bleeding; NURIA positive; Iron deficiency anemia, unspecified iron deficiency anemia type; Subcutaneous mass of abdominal wall; Skin lesion of right arm; Class 1 obesity with body mass index (BMI) of 32.0 to 32.9 in adult, unspecified obesity type, unspecified whether serious comorbidity present 07/29/2024 Travel 07/28/2024 1:30 PM EST Clinical Support [facility] DIABETES/NUTRITION [address] [place] [address] Tamanna Mcintyre, ANGELINA BMI 35.0-35.9,adult (Primary Dx) 07/28/2024 Telephone [facility] [address] [place] [address] Shireen Eagle MA Chart Prep 07/28/2024 Travel 07/24/2024 2:30 PM EST Office Visit [facility] ADULT DENTAL [address] [place] [address] Venkat Barreto DDS 07/24/2024 2:00 PM EST Office Visit [facility] WALK-IN CENTER [address] [place] [address] Sylvia Lemons MD Hordeolum externum of left lower eyelid (Primary Dx) 07/20/2024 3:00 PM EST Office Visit [facility] ADULT DENTAL [address] [place] [address] Sanaz Nelson 07/20/2024 2:00 PM EST Clinical Support [facility] DIABETES/NUTRITION [address] [place] [address] Tamanna Mcintyre, ANGELINA BMI 35.0-35.9,adult (Primary Dx) 07/20/2024 Travel 07/12/2024 Refill [facility] [address] [place] [address] Petra Wiley FNP Seasonal allergies 07/10/2024 2:00 PM EST Nutrition [facility] DIABETES/NUTRITION [address] [place] [address] Tamanna Mcintyre, ANGELINA Body mass index (BMI) of 35.0 to 35.9 in adult (Primary Dx) 07/10/2024 1:00 PM EST Office Visit [facility] ADULT DENTAL [address] [place] [address] Venkat Barreto DDS 07/10/2024 Travel 07/02/2024 1:30 PM EST Nutrition [facility] DIABETES/NTRN [address] [place] [address] Adult body mass index 35.0-35.9 (Primary Dx) 07/02/2024 Travel 06/30/2024 3:00 PM EST Office Visit [facility] ADULT DENTAL [address] [place] [address] Venkat Barreto DDS 06/23/2024 Telephone [facility] [address] [place] [address] Petra Wiley FNP 06/11/[address] [address] Petra Wiley FNP Medication Question 06/01/2024 Telephone [facility] MEDICINE [address] [place] [address] nutrition appt request 06/01/2024 Patient Outreach [address] [address] Petra Wiley FNP Care Coordination (C3CM/CHW Dick Henry, TC #3 CM enrollment_Closed ) 05/22/[address] NUTRITION APPT REQUEST 05/20/2024 Orders Only [facility] [address] [place] [address] Provider, MD Addie 05/18/2024 Orders Only [facility] External Provider, [facility] 05/18/2024 Telephone [facility] [address] [place] [address] Petra Wiley FNP Prior Authorization; PA APPROVED 05/13/2024 11:15 AM EST Office Visit [address] [address] Petra Wiley FNP Subcutaneous mass of abdominal wall (Primary Dx); Encounter for immunization; Asthma, unspecified asthma severity, unspecified whether complicated, unspecified whether persistent; Class 2 obesity with body mass index (BMI) of 35.0 to 35.9 in adult, unspecified obesity type, unspecified whether serious comorbidity present; Fibromyalgia; Vitamin D insufficiency; Healthcare maintenance; Palpitations; Abnormal uterine bleeding 05/13/2024 Travel 05/13/2024 Telephone [facility] MEDICINE [address] [place] [address] Shireen Eagle MA Chart Prep 05/01/2024 Patient Outreach [facility] [address] [place], [place] [phone] Petra Wiley FNP from Last 3 Months Immunizations Name Administration Dates Next Due HPV 9-Valent 02/27/2011 HPV, Quadrivalent 02/27/2011 Influenza injectable quadrivalent preservative f ree 04/20/2016,03/22/2015 Influenza, Split (incl. purified surface antigen ) 03/06/2013 Pneumococcal Conjugate PCV 20 05/13/2024 Td (adult), 5 Lf tetanus tox oid, preservative free, adsorbed 10/14/2015 Family History Medical History Relation Name Comments Diabetes Father Heart attack Father Kidney failure Maternal Grandmother Diabetes Mother Hyperlipidemia Mother cancer unspecified Other Maternal GGM Bradycardia Sister Relation Name Status Comments Father Maternal Grandmother Mother Other Maternal GGM Alive Sister Social History Tobacco Use Types Packs/Day Years [...] Orientation Straight 04/16/2022 10 :20 AM EDT Last Filed Vital Signs Vital Sign Reading Time Taken Comments Blood Pressure 114/68 07/29/2024 11:19 AM EST Pulse 76 07/29/2024 11:19 AM EST Temperature 36.7 ??C (98.1 ??F) 07/29/2024 11:[address] Respiratory Rate 19 07/29/2024 11:19 AM EST Oxygen Saturation 99% 07/29/2024 11:19 AM EST Inhaled Oxygen Concentration - - Weight 73.2 kg (161 lb 6 oz) 07/29/2024 11:19 AM EST Height 149.9 cm (4' 11 ) 07/29/2024 11:19 AM EST Body Mass Index 32.59 07/29/2024 11:19 AM EST Plan of Treatment Upcoming Encounters Date Type Department Care Team (Late st Contact Info) Description 08/04/2024 2:30 PM EST Office Visit [facility] OPTOMETRY [address] [place], [place] [phone] Waqas, Cristine, OD [address] [place] [address] 08/14/2024 1:30 PM EST Clinical Support [facility] DIABETES/NUTRITION [address] [place] [address] Tamanna Mcintyre, ANGELINA [address] [place] [address] 08/18/2024 1:30 PM EST Office Visit [facility] ADULT DENTAL [address] [place] [address] Venkat Barreto DDS [address] [place] [address] 11/04/2024 11:15 AM EDT Office Visit [facility] MEDICINE [address] [place] [address] Petra Wiley FNP [address] [place] [address] 01/18/2025 3:00 PM EDT Office Visit [facility] ADULT DENTAL [address] [place] [address] Sanaz eNlson Health Maintenance Due Date Last Done Comments Family Planning (PISQ) 2002 HPV Vaccines (2 - 3-dose series) 03/27/2011 02/27/2011, 02/27/2011 HPV/Cotest 2017 Pap Smear 11/11/2022 11/12/2019, 11/12/2019 Dental Oral Exam 06/27/2024 12/25/2023, 01/2024, 08/02/2022 Depression Monitoring (PHQ-9) 09/13/2024 03/16/2024, 03/16/2024 Cervical Cancer Screening 11/11/2024 Po stponed from 11/11/2022 (Other Medical Reasons) Influenza Vaccine (#1) 2024 6, 03/22/2015, 03/06/2013 Postponed from 02/16/2024 (Patient Refused) Dental Prophylaxis 01/18/2025 07/20/2024, 0 12/25/2023, 06/25/2023, Additional history exists Alcohol/Substance Use Screening 03/16/2025 03/16/2024 Depression Screening 03/16/2025 03/16/2024, 03/16/20 24 SDOH Screening 03/16/2025 03/16/2024 COVID-19 Vaccine ( - season) 2025 Postponed from 02/16/2024 (Patient Refused) Dental X-Ray: Bitewings 07/21/2025 07/20/19 25, 12/25/2023, 06/24/2023, Additional history exists Tobacco Screening 07/29/2025 07/29/2024 Dental X-Ray: Full Mouth 08/03/2025 08/02/2022 DTaP/Tdap/Td Vaccines (1 - Tdap) 09/30/2025 10/14/2015 Postponed from 10/15/2015 (Other Medical Reasons) Lipid Panel 03/18/2029 03/18/2024, 05/0 06/2023, 04/17/2021 Zoster Vaccines (1 of 2) 2037 RSV Patients and Patients Aged 60 years or older (1 - 1-dose 75+ series) 2062 HIV Screening Completed 03/18/2024, 11/30/2020 Hepatitis C Screening Completed 03/18/2024 Pneumococcal Vaccine: Pediatrics (0 to 5 Years) and At-Risk Patients (6 to 49) Years) Completed 05/13/2024 HIB Vaccines Aged Out No longer eligi ble based on patient's age to complete this topic Hepatitis A Vaccines Aged Out No long er eligible based on patient's age to complete this topic Hepatitis B Vaccines Discontinued IPV Vaccines Aged Out No longer eligi ble based on patient's age to complete this topic Meningococcal Vaccine Aged Out No shawna susan eligible based on patient's age to complete this topic RSV under 20 months Aged Out No longe r eligible based on patient's age to complete this topic Rotavirus Vaccines Aged Out No longer eligible based on patient's age to complete this topic Procedures Procedure Name Priority Date/Time Associated Diagnosis Comments CASE PRESENTATION, DETAILED AND EXTENSIVE TREATMENT PLANNING Routine 07/24/2024 2:30 PM EST INTRAORAL - PERIAPICAL FIRST RADIOGRAPHIC IMAGE Routine 07/24/2024 2:30 PM EST LIMITED ORAL EVALUATION - PROBLEM FOCUSED Routine 07/24/2024 2:30 PM EST INTRAORAL - PERIAPICAL EACH ADDITIONAL RADIOGRAPHIC IMAGE Routine 07/20/2024 3:00 PM EST INTRAORAL - PERIAPICAL EACH ADDITIONAL RADIOGRAPHIC IMAGE Routine 07/20/2024 3:00 PM EST INTRAORAL - PERIAPICAL FIRST RADIOGRAPHIC IMAGE Routine 07/20/2024 3:00 PM EST BITEWINGS - 4 RADIOGRAPHIC IMAGES Routine 07/20/2024 3:00 PM EST ORAL HYGIENE INSTRUCTIONS Routine 07/20/2024 3:00 PM EST CASE PRESENTATION, DETAILED AND EXTENSIVE TREATMENT PLANNING Routine 07/20/2024 3:00 PM EST PROPHYLAXIS - ADULT Routine 07/20/2024 3 :00 PM EST NO CHARGE PROCEDURE Routine 07/10/2024 1 :00 PM EST CASE PRESENTATION, DETAILED AND EXTENSIVE TREATMENT PLANNING Routine 06/30/2024 3:00 PM EST 14 DO RESIN-BASED COMPOSITE - 2 SURF, POSTERIOR Routine 06/30/2024 3:00 PM EST US PELVIS TRANSVAGINAL Routine 05/18/2024 3:57 PM EST US ABDOMEN COMPLETE Routine 04/30/2024 8 :37 AM EST HEPATITIS C VIRAL RNA, QUANTITATIVE, REAL-TIME PCR Routine 03/18/2024 2:05 PM EDT Healthcare maintenance HIV 1/2 ANTIGEN/ANTIBODY, FOURTH GENERATION W/RFL Routine 03/18/2024 2:05 PM EDT Healthcare maintenance LIPID PANEL, STANDARD Routine 03/18/2024 2:05 PM EDT Healthcare maintenance PERIODIC ORAL EVALUATION - ESTABLISHED PATIENT Routine 12/25/2023 2:00 PM EDT INTRAORAL - COMPLETE SERIES OF RADIOGRAPHIC IMAGES Routine 08/02/2022 1:00 PM EST Dental caries PAP SMEAR Routine 11/12/2019 12:00 AM EDT from Last 3 Months or Most Recently Relevant to Health Maintenance Results * US Pelvis Transvaginal (05/18/2024 3:57 PM EST) Anatomical Region Laterality Modality Pelvis Ultrasound 05/18/2024 3:57 PM EST Narrative 07/07/2024 8:35 AM EST ? [facility] ?[address] ?[place] [address] ? Ultrasound Report ? Signed ? Patient: Lowell Anaya,Ambika ?MR#: [id number] ?? [id number] ? : 1985 ?Acct:[id number] ? Age/Sex: 39 / F ?ADM Date: 05/18/24 ? Loc: HO.US ? Attending Dr: Vicente Mooney MD ? Ordering Physician: Vicente Mooney MD ?? Date of Service: 05/18/24 ?? Procedure(s): US pelvic and transvaginal ?? Accession Number(s): [id number] ? cc: Petra Wiley; Vicente Mooney MD [...] ??Che Oswald MD ??07/07/2024 08:32 AM EST ? Dictated By: ?Che Oswald MD ? Signed By: ?<Electronically signed by Che Oswald MD in OV> ? 07/07/24 0832 ? DD/ 1557 ? TD/TT: 05/18/24 1620 ? Planning And Analysis Manager: ? Procedure Note Donotuseinterpreter, Image - 07/07/2024 [place] [address] Ultrasound Report Signed Patient: Ambika McdermottMR#: [id number] : 1985Acct:[id number] Age/Sex: 39 / FADM Date: 05/18/24 Loc: HO.US Attending Dr: Vicente Mooney MD Ordering Physician: Vicente Mooney MD Date of Service: 05/18/24 Procedure(s): US pelvic and transvaginal Accession Number(s): [id number] cc: Petra Wiley; Vicente Mooney MD EXAMINATION: [...] by: Che Oswald MD 07/07/2024 08:32 AM EST Dictated By: Che Oswald MD Signed By: <Electronically signed by Che Oswald MD in OV> 07/07/24 0832 DD/ 1557 TD/TT: 05/18/24 1620 Planning And Analysis Manager: [facility] External Provider IMG US PROCEDURES Edited Result - Final * US Abdomen Complete (04/30/2024 8:37 AM EST) Anatomical Region Laterality Modality Abdomen Ultrasound 04/30/2024 8:37 AM EST Narrative 06/07/2024 11:00 AM EST ? [facility] ?[address] ?[place] [address] ? Ultrasound Report ? Signed ? Patient: Lowell Anaya,Ambika ?MR#: [id number] ?? [id number] ? : 1985 ?Acct:[id number] ? Age/Sex: 39 / F ?ADM Date: 11/14/24 ? Loc: HO.US ? Attending Dr: Sumaya GRAVES ? Ordering Physician: Sumaya Kessler ?? Date of Service: 04/30/24 ?? Procedure(s): US abdomen complete ?? Accession Number(s): [id number] ? cc: Sumaya Kessler; Petra Wiley [employer] ? EXAMINATION: ?? US ABDOMEN COMPLETE ? CLINICAL INFORMATION: ?? Upper abdominal pain, unspecified. ? COMPARISON: ?? Ultrasound renal 04/15/2024. Ultrasound abdomen 03/05/2024. X-ray KUB ?? 01/24/2023. CT abdomen and pelvis 05/29/2019. ? TECHNIQUE: ?? Real-time imaging of the abdominal viscera. ? FINDINGS: ? PANCREAS: The visualized portion of the pancreas head and body are ?? normal, portion of the pancreatic body and tail, not visualized are ?? obscured by bowel gas. ? ABDOMINAL AORTA: The proximal, mid, and distal segments are normal in ?? caliber. ? INFERIOR VENA CAVA: Visualized portions are normal. ? LIVER: ??Top normal in size 18 cm. The liver contour is normal. Mildly ?? echogenic liver, mildly steatosis. No focal hepatic lesion. There is no ?? intrahepatic biliary duct dilatation seen. ? GALLBLADDER: Normal. The gallbladder is physiologically distended ?? without evidence of stones, sludge, polyps, wall thickening or ?? pericholecystic fluid. ? COMMON BILE DUCT: Normal in caliber measuring 0.4 cm in diameter. ? RIGHT KIDNEY: Normal. No hydronephrosis. No renal calculi or focal ?? parenchymal lesions. The kidney measures 10.7 cm in maximum dimension. ? LEFT KIDNEY: Echogenic foci likely nonobstructing stone measure up to 3 ?? mm. No hydronephrosis or focal parenchymal lesions. ??The kidney ?? measures 10.8 cm in maximum dimension. ? SPLEEN: Normal. The spleen measures 9.8 cm in maximum dimension. ? FREE FLUID: None. ? US/US abdomen complete ?? IMPRESSION: ? 1. ??No ultrasound evidence of gallbladder disease or gallstones. ? 2. ??Mildly echogenic liver suggesting hepatic steatosis. ? 3. ??Echogenic foci in the left kidney likely nonobstructing stones. ? Electronically signed by: ??Staci Bro MD ??06/07/2024 10:57 AM EST ?? RP ? Dictated By: ?Staci Bro MD ? Signed By: ?<Electronically signed by Staci Bro MD in OV> ?06/07/241056 ? DD/ ? TD/TT: 04/30/24 0848 ? Planning And Analysis Manager: HS ? Procedure Note Donotuseinterpreter, Image - 06/07/[address] [address] Ultrasound Report Signed Patient: Ambika McdermottMR#: [id number] : 1985Acct:[id number] Age/Sex: 39 / FADM Date: 04/30/24 Loc: HO.US Attending Dr: Sumaya GRAVES Ordering Physician: Sumaya Kessler Date of Service: 04/30/24 Procedure(s): US abdomen complete Accession Number(s): [id number] cc: Sumaya Kessler; Petra Wiley EXAMINATION: US ABDOMEN COMPLETE CLINICAL INFORMATION: Upper abdominal pain, unspecified. COMPARISON: Ultrasound renal 04/15/2024. Ultrasound abdomen 03/05/2024. X-ray KUB 01/24/2023. CT abdomen and pelvis 05/29/2019. TECHNIQUE: Real-time imaging of the abdominal viscera. FINDINGS: PANCREAS: The visualized portion of the pancreas head and body are normal, portion of the pancreatic body and tail, not visualized are obscured by bowel gas. ABDOMINAL AORTA: The proximal, mid, and distal segments are normal in caliber. INFERIOR VENA CAVA: Visualized portions are normal. LIVER: Top normal in size 18 cm. The liver contour is normal. Mildly echogenic liver, mildly steatosis. No focal hepatic lesion. There is no intrahepatic biliary duct dilatation seen. GALLBLADDER: Normal. The gallbladder is physiologically distended without evidence of stones, sludge, polyps, wall thickening or pericholecystic fluid. COMMON BILE DUCT: Normal in caliber measuring 0.4 cm in diameter. RIGHT KIDNEY: Normal. No hydronephrosis. No renal calculi or focal parenchymal lesions. The kidney measures 10.7 cm in maximum dimension. LEFT KIDNEY: Echogenic foci likely nonobstructing stone measure up to 3 mm. No hydronephrosis or focal parenchymal lesions. The kidney measures 10.8 cm in maximum dimension. SPLEEN: Normal. The spleen measures 9.8 cm in maximum dimension. FREE FLUID: None. US/US abdomen complete IMPRESSION: 1. No ultrasound evidence of gallbladder disease or gallstones. 2. Mildly echogenic liver suggesting hepatic steatosis. 3. Echogenic foci in the left kidney likely nonobstructing stones. Electronically signed by: Staci Bro MD 06/07/2024 10:57 AM EST Dictated By: Staci Bro MD Signed By: <Electronically signed by Staci Bro MD in OV> 06/07/24 1057 DD/ 0837 TD/TT: 04/30/24 0848 Planning And Analysis Manager: HS [facility] External Provider IMG US PROCEDURES Edited Result - Final * Hepatitis C Viral RNA, Quantitative, Real-Time PCR (03/18/2024 2:05 PM EDT) Hepatitis C Viral Load <15 NOT DETECTED NOT DETECTED IU/mL [facility] HCV Log PCR <1.18 NOT DETECTED NOT DETECTED Log IU/mL [facility] Comment:For additional infor mation, please refer tohttp://education.[employer]/faq/RQO56h2(This link is being provided for informational/educational purposes only.)THIS TEST WAS PERFORMED AT:[employer] [place] [id number] DEL CID MD Blood 03/18/2024 2:05 PM EDT 03/18/2024 2:05 PM EDT Petra Wiley [employer] LAB BLOOD ORDERABLES Final Res ult [facility] [address] [place] [phone] * HIV-1/2 Antigen and Antibodies, Fourth Generation, with Reflexes (03/18/2024 2:05 PM EDT) HIV AB/AG Nonreactive Nonreactive [facility] Comment:HIV-1 p24 Ag and/or HIV-1/HIV-2 Ab not detected.A test result that is nonreactive does not exclude thepossibility of exposure to or infection with HIV-1 and/orHIV-2. Nonreactive results in this assay for individualswith prior exposure to HIV-1 and/or HIV-2 may be due toantigen and antibody levels that are below the limit ofdetection of this assay.The SIMI HIV Ag/Ab Combo assay result andsupplemental assay results should be interpreted inconjunction with the patient's clinical presentation,history and other laboratory results. If the results areinconsistent with clinical evidence, additional testing issuggested to confirm the result. Blood Venous blood specimen / Unknown 03/18/2024 2:05 PM EDT 03/18/2024 2:05 PM EDT us Petra Wiley [employer] LAB BLOOD ORDERABLES Final Res ult [facility] [address] [place] [place] [phone] * (ABNORMAL) Lipid Panel, Standard (03/18/2024 2:05 PM EDT) Triglycerides 100 <150 mg/dL [facility] Comment:Desirable Triglyceri de: less than 150 mg/dLBorderline High Triglyceride 150-199 mg/dLHigh Triglyceride: 200-499 mg/dLVery High Triglyceride: greater than or equal to 5OO mg/dL Cholesterol 200(H) <200 mg/dL [facility] Comment:Desirable Cholestero l: less than 200 mg/dLBorderline High Cholesterol: 200-239 mg/dLHigh Cholesterol: greater than 239 mg/dL LDL Cholesterol Calculated 128(H) <100 mg/dL [facility] Comment:Desirable LDL: less than 100 mg/dLNear Optimal/Above Optimal LDL: 110- 129 mg/dLBorderline High LDL: 130-159 mg/dLHigh LDL: 160-189 mg/dLVery High LDL: greater than or equal to 190 mg/dL HDL Cholesterol 52 >40 mg/dL [facility] Comment:Desirable HDL: great er than 40 mg/dL Note: This HDL assay may give artificially low results in patients with liver disease. Blood Venous blood specimen / Unknown 03/18/2024 2:05 PM EDT 03/18/2024 2:05 PM EDT Petra Wiley [employer] LAB BLOOD ORDERABLES Final Res ult [facility] [address] [place] [phone] * Pap Smear (11/12/2019 12:00 AM EDT) Swab Historical Provider MD LAB CYTOLOGY ORDERABLES F inal Result EXTERNAL LAB from Last 3 Months or Most Recently Relevant to Health Maintenance Insurance [facility] C3 DENTAL-[facility] MEDICAID STAND ADULT Care Teams Bereavement Counselor Relationship Specialty Start Date End Date Petra Wiley FNP [address] [place] [address] PCP - General Family Medicine 03/17/24 Willard Waters [address] [place] [address] Rheumatology 05/17/24[address]rd [place] [address] Gastroenterology 05/17/24 Juan Sandra MD [address] [place] [address] Hematology and Oncology 05/17/24 Brigid Guy NP [address] [place] [address] Urology 05/17/24 Vicente Mooney MD [address] [place] [address] Obstetrics and Gynecology 05/17/24 Beth Rai MD [address] [place] [address] [place] [address] Neurology 05/17/24 Michell Espinoza [address] [place] [address] 3rd [place] [address] Cardiology 05/17/24 [facility] Retort OperatorLead Web Developer 09/26/23
--- OUTSIDE RECORDS SUMMARY | 2024-07-30 14:04 | XMS_ITS | Encounter Summary ---
Author Organization [employer] Address [address] [facility] 7t [place] [address] Care Team Providers Care Medical Staffing Coordinator Name Role Phone Petra Wiley NIC Primary Care Provider [phone] Willard Waters Unavailable [phone] September Unavailable Juan Sandra MD Unavailable [phone] Brigid Guy NP Unavailable Vicente Mooney MD Unavailable Beth Rai MD Unavailable [phone] Michell Espinoza Unavailable Encounter Details Date Type Department Care Team (Latest Contact Info) Description 07/29/2024 Travel Social History Tobacco Use Types Packs/Day [...] 08/04/2024 2:30 PM EST Office Visit [facility] OPTOMETRY [address] [place] [address] Waqas, Cristine, OD [address] [place] [address] 08/14/2024 1:30 PM EST Clinical Support [facility] DIABETES/NUTRITION [address] [place] [address] Tamanna Mcintyre, ANGELINA [address] [place] [address] 08/18/2024 1:30 PM EST Office Visit [facility] ADULT DENTAL [address] [place] [address] Venkat Barreto DDS [address] [place] [address] 11/04/2024 11:15 AM EDT Office Visit [facility] MEDICINE [address] [place] [address] Petra Wiley, PHOTOGRAPHIC PROCESS ATTENDANT [address] [place] [address] 01/18/2025 3:00 PM EDT Office Visit [facility] ADULT DENTAL [address] [place] [address] Sanaz Nelson documented as of this encounter Visit Diagnoses Not on filedocumented in this encounter Additional Health Concerns Assessment Noted Time PHQ-9 Depression Total Score: 13 024 3:11 PM EDT documented as of this encounter Care Teams Medical Staffing Coordinator Relationship Specialty Start Date End Date Petra Wiley FNP [address] [place] [address] PCP - General Family Medicine 03/17/24 Willard Waters [address] [place] [address] Rheumatology 05/17/24 Victoria Sumaya [address] [place] [address] [address] [place] [address] Gastroenterology 05/17/24 Juan Sandra MD [address] [place] [phone] Hematology and Oncology 05/17/24 Brigid Guy NP [address] [facility] [address] [place] [address] Urology 05/17/24 Vicente Mooney MD [address] [place] [address] [address] [place] [address] Obstetrics and Gynecology 05/17/24 Beth Rai MD [address] [place] [address] [address] [place] [address] Neurology 05/17/24 Michell Espinoza [address] [place] [address] [address] [place] [address] Cardiology 05/17/24 Shelia Zheng Database ProgrammerMosaic Tile Maker 09/26/23 documented as of this encounter
--- OUTSIDE RECORDS SUMMARY | 2024-07-30 14:04 | XMS_ITS | Encounter Summary ---
Author Organization [employer] Address [address] [place] [address] 7t [place] [address] Care Team Providers Care Rfid Systems Architect Name Role Phone Petra Wiley Primary Care Provider [phone] Willard Waters Unavailable [phone] September Unavailable Juan Sandra MD Unavailable [phone] Brigid Guy NP Unavailable Vicente Mooney MD Unavailable Beth Rai MD Unavailable Michell Espinoza Unavailable Reason for Referral * Consultation (Routine) - Authorized Specialty Diagnoses / Procedures Referred By Mehreen linares Referred To Contact Family Medicine Diagnoses Skin lesion of right arm Petra Wiley FNP [address] [place] [address] Phone: tel: fax: Referral ID Status Reason Start Date Expiration Date Visits Requested Visits Authorized [id number] Authorized Specialty Services Required 07/29/2024 07/29/2025 1 1 * Consultation (Routine) - Pending Review Specialty Diagnoses / Procedures Referred By Mehreen linares Referred To Contact Genetics Diagnoses Fibromyalgia NURIA positive Subcutaneous mass of abdominal wall Petra Wiley FNP [address] [place] [address] Phone: tel: fax: Referral ID Status Reason Start Date Expiration Date Visits Requested Visits Authorized [id number] Pending Review Specialty Services Required 07/29/2024 07/29/2025 1 1 * Imaging (Routine) - Authorized Specialty Diagnoses / Procedures Referred By Natalyac t Referred To Contact Radiology Diagnoses Breast pain, right Procedures BI US Breast Limited Right Petra Wiley FNP [address] [place] [address] Phone: tel: fax: [address] Phone: tel: fax: Referral ID Status Reason Start Date Expiration Date V isits Requested Visits Authorized [id number] Authorized 07/29/2024 07/29/2025 1 1 * Imaging (Routine) - Authorized Specialty Diagnoses / Procedures Referred By Mehreen t Referred To Contact Radiology Diagnoses Breast pain, right Procedures BI Mammogram Diagnostic Tomosynthesis Right Petra Wiley FNP [address] [place] [address] Phone: tel: fax: [address] Phone: tel: fax: Referral ID Status Reason Start Date Expiration Date V isits Requested Visits Authorized [id number] Authorized 07/29/2024 07/29/2025 1 1 Encounter Details Date Type Department Care Team (Late st Contact Info) Description 07/29/2024 10:30 AM EST Office Visit [facility] MEDICINE [address] [place] [address] Petra Wiley FNP [address] [place] [address] Asthma, unspecified asthma severity, unspecified whether complicated, [...] obesity type, unspecified whether serious comorbidity present Social History Tobacco Use Types Packs/Day Years [...] t he electric, gas, oil or water [employer] threatened to shut off services in your [...] Mass Index 32.59 07/29/2024 11:19 AM EST documented in this encounter Progress Notes * NIC Rudd - 07/29/2024 10:30 AM EST Subjective: Ambika Anaya is a 39 y.o. female w/ PMH GERD, IBS, AUB, fibromyalgia, TMJ, positive NURIA, PHUC, who presents to the office for a follow up visit: chronic conditions. HPI: Last PCP visit: 05/13/24 Weight management: Following with [facility] band top maker. Has lost approx 10 lbs over the past 3 mo, primarily attributes to changes in diet. Wegovy initiatied and transitioned to Zepbound 2024. Reports not currently using. Plan to discuss further next appt. May discontinue. Fibromyalgia: previously rx Lyrica by specialist. Reports using PRN at bedtime. Pain has not been well controlled with current dose of Lyrica. Has been using additional non-pharm methods such as light massage and stretching. Right breast tenderness x 2 weeks associated with small lump palpated by partner. No nipple discharge. No dimpling of skin or other abnormality. UTD with mammo. Right forearm with skin lesion that has been growing per pt report. No bleeding or discharge. Specialists: Rheum ([facility]) - Dr. Street: hx of (+) NURIA, fibromyalgia GI ([facility])- PAINTER Kessler: dysphagia, gastroparesis, GERD Heme/Onc ([facility])- Dr. Boaz: hx of PHUC, easy bruising Urology ([facility]) - PAINTER Malena ETL DATABASE DEVELOPER ([facility] - Dr. Mooney Neuro ([facility] - Dr. Rai Cardiology ([facility]) - PAINTER Olga Ortho ([facility]) Psych - hx bipolar disorder, JORDANA with panic attacks, PTSD Therapist: Chioma Lundberg Psychiatrist: Dr. Auguste Patient Active Problem List Diagnosis Fibromyalgia Healthcare [...] allergies History of bruising easily Palpitations Class 1 obesity with body mass index (BMI) of 32.0 to 32.9 in adult Hordeolum externum of left lower eyelid History of nutritional disorder History of musculoskeletal disorder Nephrolithiasis Past Surgical History: Procedure Laterality Date AXILLARY SURGERY 2019 Right axillary surgery Family History Problem Relation Name Hyperlipidemia Mother Diabetes Mother Diabetes Father Heart attack Father Bradycardia Sister Kidney failure Maternal Grandmother Other (cancer unspecified) Other Maternal GGM Social History Substance use: -alcohol: none -tobacco: none -opioids: none Mental health: denies active SI/HI/thoughts of self harm. Following with psych team. Allergies Allergen Reactions Morphine Other reaction(s): Altered Heart Rate, Trouble Breathing, chest pain Tramadol Other reaction(s): Vomit Celexa [Citalopram] Duloxetine Other reaction(s): GI Problems Duloxetine Hcl Iodinated Contrast Media Review of Systems Constitutional: Negative for activity change, appetite change and fever. Cardiovascular: Negative for chest pain and palpitations. Gastrointestinal: Negative for abdominal pain, constipation, diarrhea and vomiting. Genitourinary: Negative for decreased urine volume. Musculoskeletal: Positive for arthralgias and myalgias. Negative for joint swelling. Skin: Negative for rash and wound. Psychiatric/Behavioral: Negative for suicidal ideas. Visit Vitals BP 114/68 (BP Location: Right arm, Patient Position: Sitting, BP Cuff Size: Large adult) Pulse 76 Temp 98.1 ??F (36.7 ??C) (Oral) Resp 19 Ht 4' 11 (1.499 m) Wt 161 lb 6 oz (73.2 kg) LMP (LMP Unknown) SpO2 99% BMI 32.59 kg/m?? OB Status Having periods Smoking Status Never BSA 1.75 m?? Physical Exam Constitutional: Appearance: Normal appearance. HENT: Head: Atraumatic. Right Ear: External ear normal. Left Ear: External ear normal. Cardiovascular: Rate and Rhythm: Normal rate and regular rhythm. Pulmonary: [place]: Pulmonary effort is normal. Breath sounds: Normal breath sounds. Chest: Breasts: Right: Tenderness present. No bleeding, inverted nipple or skin change. Left: No bleeding, inverted nipple, skin change or tenderness. Comments: Right breast: No nipple discharge or skin changes. Discomfort to palpation from 2 o'clockto 3 o'clock. Rope-like breast tissue. Skin: Comments: 2-3 mm temple papule right forearm Neurological: Mental Status: She is alert and oriented to person, place, and time. Psychiatric: Mood and Affect: Mood is anxious. Problem List Items Addressed This Visit Respiratory Asthma - Primary Overview -Maintenance: Arnuity Ellipta 1 puff daily -Rescue: albuterol PRN Relevant Medications fluticasone furoate (Arnuity Ellipta) 100 MCG/ACT inhaler Digestive Irritable bowel syndrome with constipation Overview Followed up [facility] GI - September Kessler WET PROCESS HEAD MILLER Continues Bentyl TID Continues Bisacodyl 10mg nightly Gastroparesis Overview Followed by [facility] GI Continues with the following medication regimen for multiple GI symptoms and conditions: Creon, famotidine, psyllium, dicyclomine, simethicone, and Dexliant Previous medications: carafate Genitourinary Abnormal uterine bleeding Overview Following with [facility] ETL DATABASE DEVELOPER - Dr. Mooney EMB performed 04/14/24. Path: Benign late secretory endometrium; no atypia or carcinoma 05/18/2024: Pelvic ultrasound ordered by Dr. Mooney. Endometrial thickness 6 mm. Right ovary greater than left. Uterine masses characteristic of fibroid. Previous left ovarian lesion not identified on current exam. Nephrolithiasis Overview 04/15/24: US Renal Bl ordered by Brigid LUCERO. Identified bilateral nonobstructing kidney stones. Musculoskeletal Fibromyalgia Overview -Previously: Lyrica 75mg nightly through [facility] Physiatry/Rheum -Lyrica rx from PCP as of Apr 2024. Started on Lyrica 50mg nightly PRN. Increase to 75mg nightly on07/29/24. -Following with psych team. -Cont cyclobenzaprine PRN muscle spasms. Reviewed med use and safety. Current Assessment & Plan -Encouraged use of pharm and non-pharm tx modalities Relevant Medications pregabalin (Lyrica) 75 MG capsule Other Relevant Orders Referral to Genetics Hematologic NURIA positive Overview Previous followed by [facility] Rheum - Dr. Waters May 2024: Established with [facility] Rheum - Dr. Street NURIA positive 2020: 1:160, anti dna, nicholas, ESR, CRP all wnl Relevant Orders Referral to Genetics Iron deficiency anemia Overview Lab Results Component Value Date HGB 11.5 (L) 03/18/2024 HGB 11.0 (L) 04/17/2021 HCT 36.5 (L) 03/18/2024 Following with [facility] Heme/Onc - Dr. Turner Current Assessment & Plan - Reports that she started with Slow-FE OTC iron supplements and have been working well Other Subcutaneous mass of abdominal wall Current Assessment & Plan - Recurring densities of fat distribution around body, primarily upper extremities (under axilla), around neck, as well as abdomen - Differential includes lipoma vs Madelung disease vs physiological vs other Per NIH: Madelung disease or multiple symmetric lipomatosis (MSL) is a rare entity among the overgrowth syndromes. It is characterized by painless non- encapsulated and symmetric fatty deposits in the neck, torso, mammary, and abdominal areas, and in the upper and lower limbs. - Has consulted with Surgery team in [facility] for consideration of excision. Per their consult Mar 2024, identified area has normal lobular fat, no discrete lipoma or nodules. Plan: conservative measures - Referral to genetics for further eval and consideration of pedigree Relevant Orders Referral to Genetics Other Visit Diagnoses Breast pain, right Relevant Orders BI Mammogram Diagnostic Tomosynthesis Right BI US Breast Limited Right Skin lesion of right arm 2-3 mm temple papule right forearm. Suspect SK. Pt reports has grown in size. Concerning signs/symptoms reviewed. Referred to [facility] Derm team Relevant Orders Referral to [facility] Derm Skin Adult Follow up: 3 months chronic conditions extended, sooner PRN documented in this encounter Miscellaneous Notes * Assessment & Plan Note - NIC Rudd - 07/29/2024 4:08 PM ESTAssociated Problem(s): Class 1 obesity with body mass index (BMI) of 32.0 to 32.9 in adult - Cont following with band top maker and healthy lifestyle interventions * Assessment & Plan Note - NIC Rudd - 07/29/2024 4:00 PM ESTAssociated Problem(s): Subcutaneous mass of abdominal wall - Recurring densities of fat distribution around body, primarily upper extremities (under axilla), around neck, as well as abdomen - Differential includes lipoma vs Madelung disease vs physiological vs other Per NIH: Madelung disease or multiple symmetric lipomatosis (MSL) is a rare entity among the overgrowth syndromes. It is characterized by painless non- encapsulated and symmetric fatty deposits in the neck, torso, mammary, and abdominal areas, and in the upper and lower limbs. - Has consulted with Surgery team in [facility] for consideration of excision. Per their consult Mar 2024, identified area has normal lobular fat, no discrete lipoma or nodules. Plan: conservative measures - Referral to genetics for further eval and consideration of pedigree * Assessment & Plan Note - NIC Rudd - 07/29/2024 3:51 PM ESTAssociated Problem(s): Fibromyalgia -Encouraged use of pharm and non-pharm tx modalities * Assessment & Plan Note - NIC Rudd - 07/29/2024 3:40 PM ESTAssociated Problem(s): Iron deficiency anemia - Reports that she started with Slow-FE OTC iron supplements and have been working well documented in this encounter Plan of Treatment Upcoming Encounters Date Type Department Care Team (Late st Contact Info) Description 08/04/2024 2:30 PM EST Office Visit [facility] OPTOMETRY [address] [place] [address] Cristine Alan, OD [address] [place] [address] 08/14/2024 1:30 PM EST Clinical Support [facility] DIABETES/NUTRITION [address] [place] [address] Tamanna Mcintyre, RD [address] [place] [address] 08/18/2024 1:30 PM EST Office Visit [facility] ADULT DENTAL [address] [place] [address] Venkat Barreto, DDS [address] [place] [address] 11/04/2024 11:15 AM EDT Office Visit [facility] MEDICINE [address] [place] [address] Isaiasen, Petra, TECHNOLOGY SALES SPECIALIST [address] [place] [address] 01/18/2025 3:00 PM EDT Office Visit [facility] CHC ADULT DENTAL [address] [place] [address] Sanaz Nelson Scheduled Orders Name Type Priority Associated Diagnoses Orde r Schedule BI Mammogram Diagnostic Tomosynthesis Right Imaging Routine Breast pain, right Expected: 07/29/2024, Expires: 09/26/2025 BI US Breast Limited Right Imaging Routine Breast pain, right Expected: 07/29/2024, Expires: 09/26/2025 Scheduled Referrals Name Type Priority Associated Diagnoses Orde r Schedule Referral to Genetics Outpatient Referral Routine Fibromyalgia NURIA positive Subcutaneous mass of abdominal wall Expected: 07/29/2024 (Approximate), Expires: 07/29/[address] [facility] Derm Skin Adult Outpatient Referral Routine Skin lesion of right arm Expected: 07/29/2024 (Approximate), Expires: 07/29/2025 documented as of this encounter Visit Diagnoses Diagnosis Asthma, unspecified asthma severity, unspecified whether complicated, unspecified whether persistent- Primary Fibromyalgia Unspecified myalgia and myositis Breast pain, right Nephrolithiasis Calculus of kidney Irritable bowel syndrome with constipation Irritable bowel syndrome Gastroparesis Abnormal uterine bleeding Unspecified disorder of menstruation and other abnormal bleeding from female genital tract NURIA positive Iron deficiency anemia, unspecified iron deficiency anemia type Subcutaneous mass of abdominal wall Skin lesion of right arm Unspecified disorder of skin and subcutaneous tissue Class 1 obesity with body mass index (BMI) of 32.0 to 32.9 in adult, unspecified obesity type, unspecified whether serious comorbidity present documented in this encounter Additional Health Concerns Assessment Noted Time PHQ-9 Depression Total Score: 13 03/16/ 024 3:11 PM EDT documented as of this encounter Care Teams Rfid Systems Architect Relationship Specialty Start Date End Date Petra Wiley FNP [address] [place] [address] PCP - General Family Medicine 03/17/24 Willard Waters [address] [place] [address] Rheumatology 05/17/24KesslerSeptember [address] [facility] 3rd [place] [address] Gastroenterology 05/17/24 Juan Sandra MD [address] [place] [address] Hematology and Oncology 05/17/24 Brigid Guy NP [address] [place] [address] Urology 05/17/24 Vicente Mooney MD [address] [place] [address] [address] [place] [address] Obstetrics and Gynecology 05/17/24 Beth Rai MD [address] [place] [address] [address] [place] [address] Neurology 05/17/24 Michell Espinoza [address] 3rd Floor [place] [address] Cardiology 05/17/24 Shelia Zheng Triage TechnicianSenior Coldfusion Developer 09/26/23 documented as of this encounter
--- OUTSIDE RECORDS SUMMARY | 2024-07-30 14:04 | XMS_ITS | Encounter Summary ---
Author Organization [employer] Address [address] 7t [place] [address] Care Team Providers Care Bulk Sugar Handler Name Role Phone Petra Wiley NIC Primary Care Provider Willard Waters Unavailable [phone] September Unavailable Juan Sandra MD Unavailable [phone] Brigid Guy NP Unavailable Vicente Mooney MD Unavailable Beth Rai MD Unavailable Michell Espinoza Unavailable Encounter Details Date Type Department Care Team (Latest Contact Info) Description 07/20/2024 Travel Social History Tobacco Use Types Packs/Day [...] 2:30 PM EST Office Visit [facility] OPTOMETRY [address] [place] [address] Waqas, Cristine, OD [address] [place] [address] 08/14/2024 1:30 PM EST Clinical Support [facility] DIABETES/NUTRITION [address] [place] [address] Tamanna Mcintyre, ANGELINA [address] [place] [address] 08/18/2024 1:30 PM EST Office Visit [facility] ADULT DENTAL [address] [place] [address] Venkat Barreto DDS [address] [place] [address] 11/04/2024 11:15 AM EDT Office Visit [facility] MEDICINE [address] [place] [address] Petra Wiley, TUBE COATER [address] [place] [address] 01/18/2025 3:00 PM EDT Office Visit [facility] ADULT DENTAL [address] [place] [address] Sanaz Nelson documented as of this encounter Visit Diagnoses Not on filedocumented in this encounter Additional Health Concerns Assessment Noted Time PHQ-9 Depression Total Score: 13 024 3:11 PM EDT documented as of this encounter Care Teams Bulk Sugar Handler Relationship Specialty Start Date End Date Petra Wiley FNP [address] [place] [address] PCP - General Family Medicine 03/17/24 Willard Waters [address] [place] [address] Rheumatology 05/17/24 Victoria Sumaya [address] [place] [address] [address] [place] [address] Gastroenterology 05/17/24 Juan Sandra MD [address] [place] [address] Hematology and Oncology 05/17/24 Brigid Guy NP [address] [facility] [address] [place] [address] Urology 05/17/24 Vicente Mooney MD [address] [place] [address] [address] [place] [address] Obstetrics and Gynecology 05/17/24 Beth Rai MD [address] [place] [address] [address] [place] [address] Neurology 05/17/24 Michell Espinoza [address] [place] [address] [address] [place] [address] Cardiology 05/17/24 Shelia Zheng Bias Cutting Machine OperatorPainter And Decorator Apprentice 09/26/23 documented as of this encounter
--- OUTSIDE RECORDS SUMMARY | 2024-07-30 14:04 | XMS_ITS | Encounter Summary ---
Author Organization [employer] Address [address] [place] [address] [address]t [place] [address] Care Team Providers Care Independent Beauty Consultant Name Role Phone Jennie Murray MD Primary Care Provider Petra Wiley Primary Care Provider [phone] Willard Waters Unavailable [phone] September Unavailable Juan Sandra MD Unavailable [phone] Brigid Guy NP Unavailable Vicente Mooney MD Unavailable Beth Rai MD Unavailable [phone] Michell Espinoza Unavailable Encounter Details Date Type Department Care Team (Late st Contact Info) Description 07/26/2022 Orders Only [facility] MEDICINE [address] [place], [place] [id number] Nelson Medrano MD [address] [place] [phone] Chronic idiopathic constipation (Primary Dx) Social History Tobacco Use Types [...] Recorded In the last 10 days, have aman wyatt been in contact with someone who was confirmed or suspected to have Coronavirus/COVID-19? No / Unsure 07/25/2022 1:02 PM EST documented as of this encounter Plan of Treatment Upcoming Encounters Date Type Department Care Team (Late st Contact Info) Description 08/04/2024 2:30 PM EST Office Visit [facility] OPTOMETRY [address] [place] [address] Waqas, Cristine, OD [address] [place] [address] 08/14/2024 1:30 PM EST Clinical Support [facility] DIABETES/NUTRITION [address] [place] [address] Tamanna Mcintyre, RD [address] [place] [address] 08/18/2024 1:30 PM EST Office Visit [facility] ADULT DENTAL [address] [place] [address] Venkat Barreto DDS [address] [place] [address] 11/04/2024 11:15 AM EDT Office Visit [facility] MEDICINE [address] [place] [address] Petra Wiley, ENTERPRISE RESOURCE PLANNING CONSULTANT [address] [place] [address] 01/18/2025 3:00 PM EDT Office Visit [facility] CHC ADULT DENTAL [address] [place] [address] Sanaz Nelson documented as of this encounter Visit Diagnoses Diagnosis Chronic idiopathic constipation- Primary Unspecified constipation documented in this encounter Additional Health Concerns Assessment Noted Time PHQ-9 Depression Total Score: 0 07/04/19 23 3:01 PM EST documented as of this encounter Care Teams Independent Beauty Consultant Relationship Specialty Start Date End Date Jennie Murray MD [address] [place] [address] PCP - General Family Medicine 06/23/13 03/16/24 Petra Wiley FNP [address] [place] [address] PCP - General Family Medicine 03/17/24 Willard Waters [address] Rheumatology 05/17/24 Victoria Sumaya 11 [facility] [address] [place] [address] Gastroenterology 05/17/24 Juan Sandra MD [address] [place] [address] Hematology and Oncology 05/17/24 Brigid Guy NP [address] [place] [address] Urology 05/17/24 Vicente Mooney MD [address] [place] [address] [address] [place] [address] Obstetrics and Gynecology 05/17/24 Beth Rai MD [address] [place] [address] [address] [place] [address] Neurology 05/17/24 Michell Espinoza 11 [facility] [address] [place] [address] Cardiology 05/17/24 [facility] Sales And Leasing ConsultantTubular Riveter 09/26/23 documented as of this encounter
--- OUTSIDE RECORDS SUMMARY | 2024-07-30 14:04 | XMS_ITS | Encounter Summary ---
Author Organization [employer] Address [address] [facility] 7t [place] [address] Care Team Providers Care Lead Cargo Mover Name Role Phone Petra Wiley NIC Primary Care Provider Willard Waters Unavailable [phone] KesslerSeptember Unavailable Juan Sandra MD Unavailable [phone] Brigid Guy NP Unavailable Vicente Mooney MD Unavailable Beth Rai MD Unavailable Michell Espinoza Unavailable Reason for Visit * Reason Comments Dental Pain Encounter Details Date Type Department Care Team (Late st Contact Info) Description 07/10/2024 1:00 PM EST Office Visit [facility] ADULT DENTAL [address] [place], [place] [phone] Venkat Barreto DDS [address] [place], [place] [phone] Social History Tobacco Use Types Packs/Day Years [...] Progress Notes * Venkat Barreto DDS - 07/10/2024 1:00 PM EST Patient presented with a complaint of tightness in UL back region. 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 Occlusion verified and adjusted. Given the size of the filling, discussed the potential for the tooth needing RCT in the future. Patient understood. Patient left satisfied. documented in this encounter Plan of Treatment Upcoming Encounters Date Type Department Care Team (Late st Contact Info) Description 08/04/2024 2:30 PM EST Office Visit [facility] OPTOMETRY [address] [place], [place] [phone] WaqasCristine potts, OD [address] [place] [address] 08/14/2024 1:30 PM EST Clinical Support [facility] DIABETES/NUTRITION [address] [place] [address] Tamanna Mcintyre, RD [address] [place] [address] 08/18/2024 1:30 PM EST Office Visit [facility] ADULT DENTAL [address] [place] [address] Venkat Barreto, DDS [address] [place] [address] 11/04/2024 11:15 AM EDT Office Visit [facility] MEDICINE [address] [place] [address] Petra Wiley FNP [address] [place] [address] 01/18/2025 3:00 PM EDT Office Visit [facility] ADULT DENTAL [address] [place] [address] Sanaz Nelson Scheduled Orders Name Type Priority Associated Diagnoses Orde r Schedule 14 14 ENDODONTICS - ENDODONTIC THERAPY (INCLUDING TREATMENT PLAN, CLINICAL PROCEDURES AND FOLLOW-UP CARE) - ENDODONTIC THERAPY, MOLAR TOOTH (EXCLUDING FINAL HOAHAOISM) Dental Routine 1 Occurrence s starting 07/10/2024 14 14 CROWN - PORCELAIN/CERAMIC Dental Routine 1 Occurrences starting 07/10/2024 14 14 PREFABRICATED POST AND CORE IN ADDITION TO CROWN Dental Routine [address] arting 07/10/2024 documented as of this encounter Procedures Procedure Name Priority Date/Time Associated Diagnosis Comments NO CHARGE PROCEDURE Routine 07/10/2024 1:00 PM EST documented in this encounter Visit Diagnoses Not on filedocumented in this encounter Additional Health Concerns Assessment Noted Time PHQ-9 Depression Total Score: 13 03/16/2 024 3:11 PM EDT documented as of this encounter Care Teams Lead Cargo Mover Relationship Specialty Start Date End Date Petra Wiley FNP [address] [place] [address] PCP - General Family Medicine 03/17/24 Willard Waters [address] [facility] [address] [place], [place] Rheumatology 05/17/[address] 3rd [place] [address] Gastroenterology 05/17/24 Juan Sandra MD [address] [place] [address] Hematology and Oncology 05/17/24 Brigid Guy NP [address] [place] [address] Urology 05/17/24 Vicente Mooney MD [address] [place] [address] [address] [place] [address] Obstetrics and Gynecology 05/17/24 Beth Rai MD [address] [facility] [place] [address] Neurology 05/17/24 Michell Espinoza [address] 3rd [place] [address] Cardiology 05/17/24 Shelia Zheng Double End SewerPhysical Fitness Teacher 09/26/23 documented as of this encounter
--- OUTSIDE RECORDS SUMMARY | 2024-07-30 14:04 | XMS_ITS | Encounter Summary ---
Author Organization [employer] Address [address] [place] [address] 7t [place] [address] Care Team Providers Care Railroad Car Repairman Name Role Phone Petra Wiley Primary Care Provider Willard Waters Unavailable [phone] September Unavailable Juan Sandra MD Unavailable [phone] Brigid Guy NP Unavailable Vicente Mooney MD Unavailable Beth Rai MD Unavailable Michell Espinoza Unavailable Reason for Visit * Reason Comments Med Refill Encounter Details Date Type Department Care Team (Late st Contact Info) Description 07/12/2024 Refill [facility] CHC MED & PEDS [address] [place], [place] [phone] Petra Wiley FNP [address] [place], [place] [phone] Seasonal allergies Social History Tobacco Use Types Packs/Day Years [...] Visit [facility] OPTOMETRY [address] [place] [address] Waqas, Cristine, OD [address] [place] [address] 08/14/2024 1:30 PM EST Clinical Support [facility] DIABETES/NUTRITION [address] [place] [address] Tamanna Mcintyre, ANGELINA [address] [place] [address] 08/18/2024 1:30 PM EST Office Visit [facility] ADULT DENTAL [address] [place] [address] Venkat Barreto DDS [address] [place] [address] 11/04/2024 11:15 AM EDT Office Visit [facility] MEDICINE [address] [place] [address] Petra Wiley FNP [address] [place] [address] 01/18/2025 3:00 PM EDT Office Visit [facility] CHC ADULT DENTAL [address] [place] [address] Sanaz Nelson documented as of this encounter Visit Diagnoses Diagnosis Seasonal allergies Allergic rhinitis, cause unspecified documented in this encounter Additional Health Concerns Assessment Noted Time PHQ-9 Depression Total Score: 13 03/16/ 024 3:11 PM EDT documented as of this encounter Care Teams Railroad Car Repairman Relationship Specialty Start Date End Date Petra Wiley FNP [address] [place] [address] PCP - General Family Medicine 03/17/24 Willard Waters [address] [place] [address] Rheumatology 05/17/24September [address] [facility] [address] 3rd [place] [address] Gastroenterology 05/17/24 Juan Sandra MD [address] [place] [address] Hematology and Oncology 05/17/24 Brigid Guy NP [address] [place] [address] Urology 05/17/24 Vicente Mooney MD [address] [place] [address] [address] [place] [address] Obstetrics and Gynecology 05/17/24 Beth Rai MD [address] [place] [address] [place] [address] Neurology 05/17/24 Michell Espinoza [address] [place] [address] 3rd [place] [address] Cardiology 05/17/24 Shelia Zheng Outreach CoordinatorLegal Director 09/26/23 documented as of this encounter
--- OUTSIDE RECORDS SUMMARY | 2024-07-30 14:04 | XMS_ITS | Encounter Summary ---
Author Organization [employer] Address [address] [place] [address] 7t [place] [address] Care Team Providers Care Hide Curer Name Role Phone Jennie Murray MD Primary Care Provider [phone] Petra Wiley Primary Care Provider Willard Waters Unavailable [phone] September Unavailable Juan Sandra MD Unavailable [phone] Brigid Guy NP Unavailable Vicente Mooney MD Unavailable Beth Rai MD Unavailable Michell Espinoza Unavailable Reason for Visit * Reason Onset Date Comments Appointment 08/21/2022 Ambika jacobo 1985 Patient called in crying and stated that she was seen on 08/20 for RCT and that the medication that was given to her is not helping with the pain she stated that the pain is going up to her ear please advise.AV Encounter Details Date Type Department Care Team (Late st Contact Info) Description 08/21/2022 Telephone [facility] ADULT DENTAL [address] [place], [place] [phone] Venkat Barreto DDS [address] [place], [place] [phone] Appointment (Ambika Lowell Anaya 1985 Patient called in crying and stated that she was seen on 08/20 for RCT and that the medication that was given to her is not helping with the pain she stated that the pain is going up to her ear please advise.AV) Social History Tobacco Use Types Packs/Day Years [...] suspected to have Coronavirus/COVID-19? No / Unsure 08/23/2022 1:54 PM EST documented as of this encounter Miscellaneous Notes * Telephone Encounter - Lucy Bazzi - 08/21/2022 10:19 AM EST Ambika Anaya 1985 Patient called in crying and stated that she was seen on 08/20 for RCT and that the medication that was given to her is not helping with the pain she stated that the pain is going up to her ear please advise.AV documented in this encounter Plan of Treatment Upcoming Encounters Date Type Department Care Team (Late st Contact Info) Description 08/04/2024 2:30 PM EST Office Visit [facility] OPTOMETRY [address] [place] [address] Cristine Alan, OD [address] [place] [address] 08/14/2024 1:30 PM EST Clinical Support [facility] DIABETES/NUTRITION [address] [place] [address] [place] [address] 08/18/2024 1:30 PM EST Office Visit [facility] ADULT DENTAL [address] [place] [address] Mary LouVenkat DDS [address] [place] [address] 11/04/2024 11:15 AM EDT Office Visit [facility] MEDICINE [address] [place] [address] Petra Wiley FNP [address] [place] [address] 01/18/2025 3:00 PM EDT Office Visit [facility] ADULT DENTAL [address] [place] [address] Sanaz Nelson documented as of this encounter Visit Diagnoses Not on filedocumented in this encounter Additional Health Concerns Assessment Noted Time PHQ-9 Depression Total Score: 0 07/04/19 23 3:01 PM EST documented as of this encounter Care Teams Hide Curer Relationship Specialty Start Date End Date Jennie Murray MD [address] [place] [address] PCP - General Family Medicine 06/23/13 03/16/24 Petra Wiley FNP [address] [place] [address] PCP - General Family Medicine 03/17/24 Willard Waters [address] [place] [address] Rheumatology 05/17/24 Sumaya Kessler [address] [place] [address] 3[address] [place] [address] Gastroenterology 05/17/24 Juan Sandra MD [address] [place] [address] Hematology and Oncology 05/17/24 Brigid Guy NP [address] [place] [address] Urology 05/17/24 Vicente Mooney MD [address] [place] [address] [address] [place] [address] Obstetrics and Gynecology 05/17/24 Beth Rai MD [address] [place] [address] Dr [address] [place] [address] Neurology 05/17/24 Michell Espinoza [address] 3rd [place] [address] Cardiology 05/17/24 Shelia Zheng Filler FeederC Web Developer 09/26/23 documented as of this encounter
--- OUTSIDE RECORDS SUMMARY | 2024-07-30 14:04 | XMS_ITS | Encounter Summary ---
Author Organization [employer] Address [address] [facility] 7t [place] [address] Care Team Providers Care Public Health Assistant Name Role Phone Petra Wiley NIC Primary Care Provider [phone] Willard Waters Unavailable [phone] September Unavailable Juan Sandra MD Unavailable [phone] Brigid Guy NP Unavailable Vicente Mooney MD Unavailable Beth Rai MD Unavailable Michell Espinoza Unavailable Reason for Visit * Reason Comments Routine Cleaning Dental Exam Encounter Details Date Type Department Care Team (Late st Contact Info) Description 07/20/2024 3:00 PM EST Office Visit [facility] ADULT DENTAL [address] [place] [address] Sanaz Nelson Social History Tobacco Use Types Packs/Day Years [...] the past 12 months, has t he [employer], gas, oil or water [employer] threatened to shut off services in your [...] Sign Reading Time Taken Comments Blood Pressure 126/78 07/20/2024 3:03 PM EST Pulse - - Temperature - - Respiratory Rate - - Oxygen Saturation - - Inhaled Oxygen Concentration - - Weight - - Height - - Body Mass Index - - documented in this encounter Progress Notes * Sanaz Nelson - 07/20/2024 3:00 PM EST Patient ID: Ambika Anaya is a 39 y.o. female. Time Out: Timeout Date: 07/20/24, Timeout Time: 1505 Location: [facility] Tooth: Maxilla and Mandible Procedure: X-rays and Prophylaxis Verified the above with patient, ice cream freezer assistant, and provider. Confirmed via patient's chart, intraorally and by radiographs. Doll Wigs Hackler: Yes. Language: Brazilian. Doll Wigs Hackler's Name: Irais. Medical Hx: Vitals: Blood pressure 126/78. Medications, Med Hx reviewed with patient and updated in chart. Treatment Provided Dental procedures in this visit D1110 - PROPHYLAXIS - ADULT (Completed) Service provider: Sanaz Nelson Billing provider: George Pineda DMD [id number] - ADJUNCTIVE GENERAL SERVICES - PROFESSIONAL VISITS - CASE PRESENTATION, SUBSEQUENT TO DETAILED AND EXTENSIVE TREATMENT PLANNING (Completed) Service provider: Sanaz Nelson Billing provider: George Pineda DMD D1330 - ORAL HYGIENE INSTRUCTIONS (Completed) Service provider: Sanaz Nelson Billing provider: George Pineda DMD D0274 - BITEWINGS - 4 RADIOGRAPHIC IMAGES (Completed) Service provider: Sanaz Nelson Billing provider: George Pineda DMD D0220 - INTRAORAL - PERIAPICAL FIRST RADIOGRAPHIC IMAGE (Completed) Service provider: Sanaz Nelson Billing provider: George Pineda DMD D0230 - INTRAORAL - PERIAPICAL EACH ADDITIONAL RADIOGRAPHIC IMAGE (Completed) Service provider: Sanaz Nelson Billing provider: George Pineda DMD D0230 - INTRAORAL - PERIAPICAL EACH ADDITIONAL RADIOGRAPHIC IMAGE (Completed) Service provider: Sanaz Nelson Billing provider: George Pineda DMD Instruments Used: Ultrasonic Scalers and Prophy angle Fluoride: N/A Oral Cancer Screening: No lesions Head/Neck Exam: No Lesions Calculus: Light and Generalized Plaque: Light and Generalized Stain: Light and Localized Bleeding: Moderate and Generalized Gingiva: Perio Charting Completed, Bleeding on probing, and Erythematous OH: Fair Perio Chart: Completed Oral hygiene instructions provided to patient including brushing technique and flossing. Recommendations: Warwick two times daily, modified aragon technique, Floss daily, Electric toothbrush, Soft bristle toothbrush, Warwick Tongue, Anti-sensitivity toothpaste Recall Frequency: 6 mo NV: RCT/ Exam Hygienist: Sanaz moore RDH documented in this encounter Plan of Treatment Upcoming Encounters Date Type Department Care Team (Late st Contact Info) Description 08/04/2024 2:30 PM EST Office Visit [facility] OPTOMETRY [address] [place], [place] [phone] Cristine Alan, OD [address] [place] [address] 08/14/2024 1:30 PM EST Clinical Support [facility] DIABETES/NUTRITION [address] [place], [place] [phone] Tamanna Mcintyre, RD [address] [place] [address] 08/18/2024 1:30 PM EST Office Visit [facility] ADULT DENTAL [address] [place] [address] Venkat Barreto DDS [address] [place] [address] 11/04/2024 11:15 AM EDT Office Visit [facility] MEDICINE [address] [place] [address] Petra Wiley FNP [address] [place] [address] 01/18/2025 3:00 PM EDT Office Visit [facility] ADULT DENTAL [address] [place] [address] Sanaz Nelson Scheduled Orders Name Type Priority Associated Diagnoses Orde r Schedule PERIODIC ORAL EVALUATION - ESTABLISHED PATIENT Dental Routine 1 Occurren robin starting 07/20/2024 documented as of this encounter Procedures Procedure Name Priority Date/Time Associated Diagnosis Comments PROPHYLAXIS - ADULT Routine 07/20/2024 3 :00 PM EST ORAL HYGIENE INSTRUCTIONS Routine 2024 3:00 PM EST INTRAORAL - PERIAPICAL FIRST RADIOGRAPHIC IMAGE Routine 07/20/2024 3:00 PM EST INTRAORAL - PERIAPICAL EACH ADDITIONAL RADIOGRAPHIC IMAGE Routine 07/20/2024 3:00 PM EST INTRAORAL - PERIAPICAL EACH ADDITIONAL RADIOGRAPHIC IMAGE Routine 07/20/2024 3:00 PM EST CASE PRESENTATION, DETAILED AND EXTENSIVE TREATMENT PLANNING Routine 07/20/2024 3:00 PM EST BITEWINGS - 4 RADIOGRAPHIC IMAGES Routine 07/20/2024 3:00 PM EST documented in this encounter Visit Diagnoses Not on filedocumented in this encounter Additional Health Concerns Assessment Noted Time PHQ-9 Depression Total Score: 13 03/16/2 024 3:11 PM EDT documented as of this encounter Care Teams Public Health Assistant Relationship Specialty Start Date End Date Petra Wiley FNP [address] [place] [address] PCP - General Family Medicine 03/17/24 Willard Waters [address] [facility] [address] [place], [place] Rheumatology 05/17/24 Sumaya Keslser [address] 3rd [place] [address] Gastroenterology 05/17/24 Juan Sandra MD [address] [place] [address] Hematology and Oncology 05/17/24 Brigid Guy NP [address] [place] [address] Urology 05/17/24 Vicente Mooney MD [address] [facility] [address] [place] [address] Obstetrics and Gynecology 05/17/24 Beth Rai MD [address] [facility] [address] [place] [address] Neurology 05/17/24 Michell Espinoza [address] 3rd [place] [address] Cardiology 05/17/24 Shelia Zheng Welder Apprentice CombinationSupervisor Motor Vehicle Assembly 09/26/23 documented as of this encounter
--- OUTSIDE RECORDS SUMMARY | 2024-07-30 14:04 | XMS_ITS | Encounter Summary ---
Author Organization [employer] Address [address] [facility] 7t [place] [address] Care Team Providers Care Rip Machine Operator Name Role Phone Petra Wiley NIC Primary Care Provider Willard Waters Unavailable [phone] September Unavailable Juan Sandra MD Unavailable [phone] Brigid Guy NP Unavailable Vicente Mooney MD Unavailable Beth Rai MD Unavailable Michell Espinoza Unavailable Encounter Details Date Type Department Care Team (Late st Contact Info) Description 07/02/2024 1:30 PM EST Nutrition [facility] DIABETES/NTRN [address] [place], [place] [phone] Tamanna Mcintyre, RD [address] [place], [place] [phone] Adult body mass index 35.0-35.9 (Primary Dx) Social History Tobacco Use Types [...] Weight 74.9 kg (165 lb 3.2 oz) 07/02/2024 3:47 P M EST Height 149.9 cm (4' 11 ) 07/02/2024 3:47 PM EST Body Mass Index 33.37 07/02/2024 3:47 PM EST documented in this encounter Progress Notes * Tamanna Mcintyre RD - 07/02/2024 1:30 PM EST In Person Visit Medical Diagnosis: Z68.35 BMI 35.0 - 35.9 Anthropometrics: Ht:4' 11 (1.499 m), Wt:165 lb 3.2 oz (74.9 kg), BMI: Body mass index is 33.37 kg/m??. Assessment: Patient (Pt) accepted nutrition education assessment appointment with RD. RD took Pt's weight. Weight revealed a decrease by 8.3 pounds since last noted here in Pt's chart on 05/13/2024. Pt understood RD in speaking Croatian; thus, a retail merchandising manager was not used. Pt began talking to RD about how she is throwing up consistently; and, how her stomach hurts her. In addition, Pt expressed that she can't keep anything down. Pt sips on water or Ice drink which is asugar free beverage. Pt told RD that she has seen a sales program coordinator and other gastrointestinal doctors without success. Pt expressed that she has been this way since she was 8 years old. Pt throws up and loses her gastric juices; tries to drink due to being thirsty and throws it because it does not settle with her stomach. RD explained that when Pt is throwing up her gastric juices, she has taken out of her stomach to ability to digest her foods and beverages that she is drinking. When she does eat, and has no to low gastric juices, the food actually starts to rot and makes Pt sick and she then throws it up. Pt is low on digestive enzymes. In addition, Pt has also been lowering her electrolytes. RD suggested Pt to start with getting Ramone Real Salt and put it, show amount = 1/2 teaspoon intoher water bottle/ beverage bottle. If not able to drink any fluid, RD suggest for Pt to put salt inthe palm of her hand and lick the salt slowly until all is eaten. Pt expressed to RD that her sales program coordinator suggested to do the same thing. RD then suggest that with a settled stomach, sip some beverag e and take a digestive enzyme from [employer]- Digest Gold enzymes- one capsule and continue to sipon the beverage. In a half an hour, make a scrambled egg with real butter using Noy Gold butter. Pt said she will. Then, slowly eat the egg along with her beverage that has the added salt in it. Asthe stomach settles and accept the first egg, in an hour or two, do it all again. RD suggest for Pt to resist to throw up. Work on keeping steady. Pt said she will do her best here. Once Pt has a settled stomach with beverage and egg consumption, RD will move on to other foods. Pt has a follow up appointment on July 10, 2024, in [place], [place] with RD at the [facility].. Note: Pt's focus is to settle her stomach and be eating an egg which could blooms into her/ Pt eating more eggs until she sees RD. RD highly suggest that this is all Pt is to be eating. RD highly suggestedfor Pt not to eat anything else. Pt was fine with this since she has not been eating anything any way. Also, Pt mentioned that she has been having very heavy periods for years and longer than what a period should be. RD suggested for Pt to get the supplement, Plus, from [employer] This product is derived from the [employer]. The [employer] yam has a history in adjusting human hormones if needed. This company has a patten on being very effective in doing this. The body will only use this food source if it needs it. If the body does not need it, it won't used it. All in all, it is aneffective food source given/ taken in the manor that it get released into the small intestine by the patten process of the enclosed capsule. Pt was instructed to only take these capsules when the stomach is settle and she is not throwing up like she has been telling RD here. Food Allergies: NKFA Exercise: not at all Food Intolerance: Was not talked about today. Food Preferences: Was not talked about today. Food Dislikes: Was not talked about today. Frequency of Eating Out/ Restaurant: Didn't say Who Cooks?: Didn't say How much caffeine?: denies use How much sugary beverages?: Pt has been drinking water and sugar free beverages. Diet History: Nothing other than water and/ or sugar free Ice beverage. Nutrition Diagnosis: 1st half of First appointment was done today. When the 2nd half of First appointment is finished/ done, this area will be filled in. Nutrition Intervention: 1st half of First appointment was done today. When the 2nd half of First appointment is finished/ done, this area will be filled in. Monitoring and Evaluation: 1st half of First appointment was done today. When the 2nd half of First appointment is finished/ done, this area will be filled in. Provider: Tamanna Mcintyre RD, MILA documented in this encounter Plan of Treatment Upcoming Encounters Date Type Department Care Team (Late st Contact Info) Description 08/04/2024 2:30 PM EST Office Visit [facility] OPTOMETRY [address] [place] [address] WaqasCristine potts, OD [address] [place] [address] 08/14/2024 1:30 PM EST Clinical Support [facility] DIABETES/NUTRITION [address] [place] [address] [place] [address] 08/18/2024 1:30 PM EST Office Visit [facility] ADULT DENTAL [address] [place] [address] Venkat Barreto DDS [address] [place] [address] 11/04/2024 11:15 AM EDT Office Visit [facility] MEDICINE [address] [place] [address] Petra Wiley FNP [address] [place] [address] 01/18/2025 3:00 PM EDT Office Visit [facility] ADULT DENTAL [address] [place] [address] Sanaz Nelson documented as of this encounter Visit Diagnoses Diagnosis Adult body mass index 35.0-35.9- Primary Body Mass Index 35.0-35.9, adult documented in this encounter Additional Health Concerns Assessment Noted Time PHQ-9 Depression Total Score: 13 03/16/2 024 3:11 PM EDT documented as of this encounter Care Teams Rip Machine Operator Relationship Specialty Start Date End Date Petra Wiley FNP [address] [place] [address] PCP - General Family Medicine 03/17/24 Willard Waters [address] [facility] [address] [place], [place] Rheumatology 05/17/24 Sumaya Kessler [address] 3rd [place] [address] Gastroenterology 05/17/24 Juan Sandra MD [address] [place] [address] Hematology and Oncology 05/17/24 Brigid Guy NP [address] [place] [address] Urology 05/17/24 Vicente Mooney MD [address] [place] [address] [address] [place] [address] Obstetrics and Gynecology 05/17/24 Beth Rai MD [address] [place] [address] [place] [address] Neurology 05/17/24 Michell Espinoza [address] 3rd [place] [address] Cardiology 05/17/24 Shelia Zheng Lotus Notes DeveloperWelder Production Line Arc 09/26/23 documented as of this encounter
== END 2024-07-30 14:41 | disposition home or self-care (01) ==
PROVIDERS: PCP Registered Nurse; Visit Provider Nurse Practitioner Family
DX: R94.31 Abnormal electrocardiogram [ECG] [EKG] (principal); R00.2 Palpitations; R07.2 Precordial pain; R55 Syncope and collapse
CPT/HCPCS: 99214

== ENCOUNTER → 2024-07-30 14:00 | Outpatient (BNVA) | payer MEDICAID, SELFPAY | PROVIDERS: PCP Student in an Organized Health Care Education/Training Program; Visit Provider Nurse Practitioner Family | DX: R94.31 Abnormal electrocardiogram [ECG] [EKG] (principal); R00.2 Palpitations; R07.2 Precordial pain; R55 Syncope and collapse | CPT/HCPCS: 99212 ==

== ENCOUNTER 2024-08-11 14:36 | Outpatient (REF) | payer MEDICAID, SELFPAY ==
--- OUTSIDE RECORDS SUMMARY | 2024-08-11 19:29 | XMS_ITS | Encounter Summary ---
Author Organization [employer] Address 75 [facility] 7t [place] [address] Care Team Providers Care Biology Manager Name Role Phone Jennie Murray MD Primary Care Provider Petra Wiley Primary Care Provider Willard Waters Unavailable [phone] September Unavailable Juan Sandra MD Unavailable [phone] Brigid Guy NP Unavailable Vicente Mooney MD Unavailable Beth Rai MD Unavailable Michell Espinoza Unavailable Reason for Visit * Reason Onset Date Comments Appointment Request 12/25/2023 Encounter Details Date Type Department Care Team (Late st Contact Info) Description 12/25/2023 Telephone [facility] MEDICINE [address] [place] [address] Jenine Murray MD [address] [place], [place] [phone] Appointment Request Social History Tobacco Use Types [...] 1:07 PM EDT Tc from Patrice, care associate with [facility], calling to schedule appt for pt. Pt is awaiting transfer pt appt with Dr. Wiley in which creative services writer attempted to schedule but found no availability. Please contact Patrice at [phone]. documented in this encounter Plan of Treatment Upcoming Encounters Date Type Department Care Team (Late st Contact Info) Description 08/14/2024 1:30 PM EST Clinical Support [facility] DIABETES/NUTRITION [address] [place], [place] [phone] Tamanna Mcintyre [address] [place] [address] 08/18/2024 1:30 PM EST Office Visit [facility] ADULT DENTAL [address] [place], [place] [phone] Venkat Barreto DDS [address] [place] [address] 11/04/2024 11:15 AM EDT Office Visit [facility] MEDICINE [address] [place] [address] Petra Wiley FNP 505 [place] [address] 01/18/2025 3:00 PM EDT Office Visit [facility] ADULT DENTAL 505 [place] [address] Sanaz Nelson documented as of this encounter Visit Diagnoses Not on filedocumented in this encounter Additional Health Concerns Assessment Noted Time PHQ-9 Depression Total Score: 0 07/04/19 23 3:01 PM EST documented as of this encounter Care Teams Biology Manager Relationship Specialty Start Date End Date Jennie Murray MD 230 [place] [address] PCP - General Family Medicine 06/23/13 03/16/24 Petra Wiley FNP [address] [place] [address] PCP - General Family Medicine 03/17/24 Willard Waters [address] [place] [address] Rheumatology 05/17/24 Victoria Sumaya [address] 3rd [place] [address] Gastroenterology 05/17/24 Juan Sandra MD 575 [place] [address] Hematology and Oncology 05/17/24 Brigid Guy NP [address] [place] [address] Urology 05/17/24 Vicente Mooney MD [address] [place] [address] [address] [place] [address] Obstetrics and Gynecology 05/17/24 Beth Rai MD [address] [place] [address] [place] [address] Neurology 05/17/24 Michell Espinoza [address] [place] [address] Drive 3rd Floor [place] [address] Cardiology 05/17/24 Shelia Zheng Starting Sheet Tank OperatorRecreation Supervisor 09/26/23 documented as of this encounter
--- OUTSIDE RECORDS SUMMARY | 2024-08-11 19:29 | XMS_ITS | Encounter Summary ---
Author Organization [employer] Address 75 [facility] 7t [place] [address] Care Team Providers Care Distribution Manager Name Role Phone Jennie Murray MD Primary Care Provider [phone] Petra Wiley Primary Care Provider Willard Waters Unavailable [phone] September Unavailable Juan Sandra MD Unavailable [phone] Brigid Guy NP Unavailable Vicente Mooney MD Unavailable Beth Rai MD Unavailable Michell Espinoza Unavailable Encounter Details Date Type Department Care Team (Latest Contact Info) Description 09/12/2020 Abstract [facility] CONVERSIONS Dental, Provider, DDS Social History Tobacco [...] Description 08/14/2024 1:30 PM EST Clinical Support [facility] DIABETES/NUTRITION 230 [place] [address] [place], [place] [phone] 08/18/2024 1:30 PM EST Office Visit [facility] ADULT DENTAL 230 [place] [address] Mary LouVenkat DDS 230 [place] [address] 11/04/2024 11:15 AM EDT Office Visit [facility] MEDICINE 230 [place] [address] Petra Wiley FNP [address] [place] [address] 01/18/2025 3:00 PM EDT Office Visit [facility] ADULT D[facility]AL 505 [place] [address] Sanaz Nelson documented as of this encounter Visit Diagnoses Not on filedocumented in this encounter Care Teams Distribution Manager Relationship Specialty Start Date End Date Jnenie Murray MD 230 [place] [address] PCP - General Family Medicine 06/23/13 03/16/24 Petra Wiley FNP 230 [place] [address] PCP - General Family Medicine 03/17/24 Willard Waters [address] [place] [address] Rheumatology 05/17/24September [address] 3rd [place] [address] Gastroenterology 05/17/24 Juan Sandra MD [address] [place] [address] Hematology and Oncology 05/17/24 Brigid Guy NP [address] [place] [address] Urology 05/17/24 Vicente Mooney MD [address] [place] [address] [address] [place] [address] Obstetrics and Gynecology 05/17/24 Beth Rai MD [address] [place] [address] Dr Multani [address] [place] [address] Neurology 05/17/24 Michell Espinoza [address] 3rd [place] [address] Cardiology 05/17/24 Shelia Zheng Scrub NurseFiscal Services Director 09/26/23 documented as of this encounter
--- OUTSIDE RECORDS SUMMARY | 2024-08-11 19:29 | XMS_ITS | Encounter Summary ---
Author Organization [employer] Address 75 [facility] 7t [place] [address] Care Team Providers Care Barrel Reamer Name Role Phone Jennie Murray MD Primary Care Provider Petra Wiley Primary Care Provider Willard Waters Unavailable [phone] September Unavailable Juan Sandra MD Unavailable [phone] Brigid Guy NP Unavailable Vicente Mooney MD Unavailable Beth Rai MD Unavailable Michell Espinoza Unavailable Encounter Details Date Type Department Care Team (Latest Contact Info) Description 09/03/2018 Abstract [facility] CONVERSIONS Dental, Provider, DDS Social History Tobacco [...] Description 08/14/2024 1:30 PM EST Clinical Support [facility] DIABETES/NUTRITION 230 [place] [address] [place], [place] [phone] 08/18/2024 1:30 PM EST Office Visit [facility] ADULT DENTAL 230 [place] [address] Mary LouLeliaaRUTH ANN 230 [place] [address] 11/04/2024 11:15 AM EDT Office Visit [facility] MEDICINE 230 [place] [address] Petra Wiley FNP [address] [place] [address] 01/18/2025 3:00 PM EDT Office Visit [facility] ADULT DENTAL 505 [place] [address] Sanaz Nelson documented as of this encounter Visit Diagnoses Not on filedocumented in this encounter Care Teams Barrel Reamer Relationship Specialty Start Date End Date Jennie Murray MD 230 [place] [address] PCP - General Family Medicine 06/23/13 03/16/24 Petra Wiley FNP 230 [place] [address] PCP - General Family Medicine 03/17/24 Willard Waters [address] [place] [address] Rheumatology 05/17/24September [address] 3rd [place] [address] Gastroenterology 05/17/24 Juan Sandra MD [address] [place] [address] Hematology and Oncology 05/17/24 Brigid Guy NP [address] [place] [address] Urology 05/17/24 Vicente Mooney MD [address] [place] [address] [address] [place] [address] Obstetrics and Gynecology 05/17/24 Beth Rai MD [address] [place] [address] [place] [id number] Neurology 05/17/24 Michell Espinoza [address] 3rd [place] [id number] Cardiology 05/17/24 Shelia Zheng Body BuilderOven Heater Helper 09/26/23 documented as of this encounter
--- OUTSIDE RECORDS SUMMARY | 2024-08-11 19:29 | XMS_ITS | Encounter Summary ---
Author Organization [facility] Address [address] [place] [address] Care Team Providers Care Immigration Manager Name Role Phone Petra Wiley Primary Care Provider [phone] Reason for Visit * Reason Onset Date Comments PAC Appt Request - New 08/06/2024 Encounter Details Date Type Department Care Team (Late st Contact Info) Description 08/06/2024 Telephone [facility] [address] [place] [address], [place] [address] Roll Out Manager: Khdara Westbrook Telephone Intake, Staff PAC Appt Request [...] to schedule in the closest location to [place]. Please reach out with a stem cutter. Thank you! documented in this encounter Plan of Treatment Upcoming Encounters Date Type Department Care Team (Late st Contact Info) Description 11/11/2024 12:00 PM EDT Office Visit [facility] [address] [place] [address] Roll Out Manager: Newton Rangel DO [address] [facility] [place] [address] 02/09/2025 10:15 AM EDT Office Visit [facility] 4th Floor [address] [facility], [place] [address] Roll Out Manager: Hipolito Lei MD [address] [place] [address] documented as of this encounter Visit Diagnoses Not on filedocumented in this encounter Care Teams Immigration Manager Relationship Specialty Start Date End Date Petra Wiley 230 [place] [address] PCP - General Family Medicine 03/19/24 documented as of this encounter
--- OUTSIDE RECORDS SUMMARY | 2024-08-11 19:29 | XMS_ITS | Encounter Summary ---
Author Organization [employer] Address 75 [facility] 7t [place] [address] Care Team Providers Care Client Server Developer Name Role Phone Petra Wiley NIC Primary Care Provider Willard Waters Unavailable [phone] September Unavailable Juan Sandra MD Unavailable [phone] Brigid Guy NP Unavailable Vicente Mooney [...] Description 08/14/2024 1:30 PM EST Clinical Support [facility] DIABETES/NUTRITION [address] [place] [address] [place] [address] 08/18/2024 1:30 PM EST Office Visit [facility] ADULT DENTAL [address] [place] [address] Venkat Barreto DDS [address] [place] [address] 11/04/2024 11:15 AM EDT Office Visit [facility] MEDICINE [address] [place] [address] Petra Wiley FNP 505 [place] [address] 01/18/2025 3:00 PM EDT Office Visit [facility] ADULT DENTAL 505 [place] [address] Sanaz Nelson documented as of this encounter Visit Diagnoses Not on filedocumented in this encounter Additional Health Concerns Assessment Noted Time PHQ-9 Depression Total Score: 13 03/16/ 024 3:11 PM EDT documented as of this encounter Care Teams Client Server Developer Relationship Specialty Start Date End Date Petra Wiley FNP [address] [place] [address] PCP - General Family Medicine 03/17/24 Willard Waters [address] [place] [address] Rheumatology 05/17/24 VictoriaSeptember 11 [facility] 3rd [place] [address] Gastroenterology 05/17/24 Juan Sandra MD [address] [place] [address] Hematology and Oncology 05/17/24 Brigid Guy NP 10 [facility] [address] [place] [address] Urology 05/17/24 Vicente Mooney MD [address] [place] [address] [address] [place] [address] Obstetrics and Gynecology 05/17/24 Beth Rai MD [address] [place] [address] 140 [place] [address] Neurology 05/17/24 Michell Espinoza 11 [facility] 3rd [place] [address] Cardiology 05/17/24 Shelia Zheng Railroad Wheels And Axles InspectorSecond Crusher 09/26/23 documented as of this encounter
--- OUTSIDE RECORDS SUMMARY | 2024-08-11 19:30 | XMS_ITS | Encounter Summary ---
Author Organization [employer] Address 75 [facility] 7t [place] [address] Care Team Providers Care Scrap Crusher Name Role Phone Petra Wiley NIC Primary Care Provider Willard Waters Unavailable [phone] September Unavailable Juan Sandra MD Unavailable [phone] Brigid Guy NP Unavailable Vicente Mooney MD Unavailable Beth Rai MD Unavailable Michell Espinoza Unavailable Reason for Visit * Reason Comments Eye Problem Encounter Details Date Type Department Care Team (Late st Contact Info) Description 07/24/2024 2:00 PM EST Office Visit [facility] [address] [place], [place] [phone] Sylvia Lemons MD 230 [place], [place] [phone] Hordeolum externum of left lower eyelid (Primary [...] times daily., Disp: 1 kit, Rfl: 0 ldzoaczxjk-ezprxgafzfegu-ozuxhspk 50-325-40 MG tablet, TOME ADRY TABLETA CADA [...] day., Disp: 90 tablet, Rfl: 1 Creon [id number] units capsule delayed-release particles capsule, TOME ADRY [...] per week., Disp: 2 mL, Rfl: 2 Irish Translation: Provided by [facility] staff member BRANDI Blackwell documented in this encounter Plan of Treatment Upcoming Encounters Date Type Department Care Team (Late st Contact Info) Description 08/14/2024 1:30 PM EST Clinical Support [facility] DIABETES/NUTRITION [address] [place] [address] [place] [address] 08/18/2024 1:30 PM EST Office Visit [facility] ADULT DENTAL [address] [place], [place] [phone] Venkat Barreto DDS [address] [place] [address] 11/04/2024 11:15 AM EDT Office Visit [facility] MEDICINE [address] [place] [address] Petra Wiley FNP 505 [place] [address] 01/18/2025 3:00 PM EDT Office Visit [facility] ADULT DENTAL [address] [place] [address] Sanaz Nelson documented as of this encounter Visit Diagnoses Diagnosis Hordeolum externum of left lower eyelid- Primary documented in this encounter Additional Health Concerns Assessment Noted Time PHQ-9 Depression Total Score: 13 024 3:11 PM EDT documented as of this encounter Care Teams Scrap Crusher Relationship Specialty Start Date End Date Petra Wiley FNP [address] [place] [address] PCP - General Family Medicine 03/17/24 Willard Waters [address] [place] [address] Rheumatology 05/17/24 Victoria Sumaya [address] [place] [address] 3[address] [place] [address] Gastroenterology 05/17/24 Juan Sandra MD [address] [place] [address] Hematology and Oncology 05/17/24 Brigid Guy NP 10 [facility] [address] [place] [address] Urology 05/17/24 Vicente Mooney MD [address] [place] [address] [address] [place] [address] Obstetrics and Gynecology 05/17/24 Beth Rai MD [address] [place] [address] 140 [place] [address] Neurology 05/17/24 Michell Espinoza [address] [place] [address] [address]rd [facility] [place] [address] Cardiology 05/17/24 Shelia Zheng Athletics DirectorElectrical Timing Device Calibrator 09/26/23 documented as of this encounter
--- OUTSIDE RECORDS SUMMARY | 2024-08-11 19:30 | XMS_ITS | Referral Summary ---
Author Organization [facility] Address [address] [place] [address] Care Team Providers Care Highway Worker Name Role Phone Petra Wiley Primary Care Provider Encounters Date Type Department Care Team Description 08/06/2024 Telephone [facility] D[facility]atology [facility] 4th Floor [address] [facility], [place] [phone] Hydroponics Worker: Khadra Westbrook Telephone Intake, Staff PAC Appt Request - New 08/01/2024 Results Follow-Up [facility] [address] [place] [address] Hydroponics Worker: Newton Rangel DO 07/22/2024 12:00 PM EST Office Visit [facility] [address] [place] [address] Hydroponics Worker: Newton Rangel DO Erythromelalgia (HCC) (Primary Dx); Polyarthralgia 06/26/2024 Transcribe Orders [facility] Physician Referral Services [address] [place] [address] Petra Wiley Subcutaneous mass of right upper extremity (Primary Dx); Subcutaneous mass of abdominal wall 05/20/2024 2:58 PM EST - 05/20/2024 11:59 PM EST Hospital Encounter [facility] XRay [address] [place] [address] DO Polyarthralgia Discharge Disposition: Home or Self Care () 05/20/2024 1:00 PM EST Office Visit [facility] [address] [place] [address] Hydroponics Worker: Newton Rangel DO Polyarthralgia (Primary Dx); Positive [...] Visit [facility] [address] [place] [address] Hydroponics Worker: Newton Rangel DO [address] [place] [address] [place] [address] 02/09/2025 10:15 AM EDT Office Visit [facility] Dermatology [facility] 4th Floor [address] [facility], [place] [address] Hydroponics Worker: Hipolito Lei MD [address] [place] [address] Procedures * Due to [place] state law, this organization might not be [...] 3:31 PM EST Positive NURIA (antinuclear antibody) CSCF-0-PSWZDHGIIRVA I ANTIBODIES, IGG/IGA/IGM Routine 05/20/2024 3:31 PM [...] Last 3 Months Results * Due to [place] state law, this organization might not be sharing negative HIV tests. * Protein Electrophoresis w/Reflex to Immunofixation, Serum (07/22/2024 1:56 PM EST) Protein, Total 8.1 6.1 - 8.1 g/dL 07/28/2024 7:22 AM EST [facility] Albumin 4.8 3.8 - 4.8 g/dL 07/28/2024 7:22 AM EST [employer] DIAGNOST[facility] Alpha 1 Globulin 0.3 0.2 - 0.3 g/dL 07/28/2024 7:22 AM EST [facility] Alpha 2 Globulin 0.7 0.5 - 0.9 g/dL 07/28/2024 7:22 AM EST [facility] Beta 1 Globulin 0.6 0.4 - 0.6 g/dL 07/28/2024 7:22 AM EST [facility] Beta 2 Globulin 0.5 0.2 - 0.5 g/dL 07/28/2024 7:22 AM EST [facility] Gamma Globulin 1.2 0.8 - 1.7 g/dL 07/28/2024 7:22 AM EST [facility] Interpretation See Comments 07/28/2024 7:22 AM EST [facility] Comment: Normal Serum Protein Electrophoresis Pattern. No abnormal protein bands (M-protein) detected. Blood Structure of peripheral vein / Unknown Venipuncture / Unknown 07/22/2024 1:56 PM EST 07/22/2024 2:37 PM EST [facility] - 07/28/2024 7:22 AM EST [facility] Received Date:[id number] [address] DO LAB BLOOD ORDERABLES Final Res ult Performing Organization Address City/[facility] Co de Phone Number [facility] [address] [facility] 3rd Floor, [place] [address], [place] [phone] [facility] [address] [facility] 3rd Floor, [place] [address], [place] [phone] * (ABNORMAL) Sedimentation Rate (07/22/2024 1:56 PM EST) Only the most recent of2 resultswithin the time period is included. Sed Rate 29(H) <20 mm/Hr mm/Hr 07/22/2024 2:52 PM EST [facility] CLINICAL PATHOLOGY LABORATORY Blood Structure of peripheral vein / Unknown Venipuncture / Unknown 07/22/2024 1:56 PM EST 07/22/2024 2:[address] DO LAB BLOOD ORDERABLES Final Res ult Performing Organization Address [facility]/ZIP Co de Phone Number [facility] CLINICAL PATHOLOGY LABORATORY [address] [place] [address], * (ABNORMAL) NURIA, Titer and Pattern (05/20/2024 3:31 PM EST) NURIA Titer 1 1:640(H) titer 05/22/2024 12:31 PM EST [facility] Comment: ?Reference Range ?<1:40 ?Negative ?1:40-1:80 ?Low Antibody Level ?>1:80 ?Elevated Antibody Level NURIA Pattern 1 Nuclear, Dense Fine Speckled( A) 05/22/2024 12:31 PM EST [employer] Comment: Dense fine speckled pattern is seen in normal individuals and rarely associated with systemic lupus erythematosis (SLE), Sjogren's syndrome and systemic sclerosis. AC-2: Dense Fine Speckled International Consensus on NURIA Patterns (https://doi.org/10.1515/fxhn-1271-7441) Blood Structure of peripheral vein / Unknown Venipuncture / Unknown 05/20/2024 3:31 PM EST 05/20/2024 3:45 PM EST [facility] - 05/22/2024 12:31 PM EST [facility] Received Date: [address] DO LAB BLOOD ORDERABLES Final Res ult [facility] [address] [facility] 3rd Floor, [place] [address], [employer] [address] [facility] 3rd Floor, [place] [address], * Cardiolipin Antibodies, IgG/IgM/IgA (05/20/2024 3:31 PM EST) Cardiolipin Ab IgA <2.0 APL-U/mL 2023 2:07 PM EST [employer] Comment: Value ?Interpretation ----- ? < 20.0 ? Antibody not detected > or = 20.0 ?Antibody detected Cardiolipin Ab IgG <2.0 GPL-U/mL 2023 2:07 PM EST [employer] Comment: Value ?Interpretation ----- ? < 20.0 ? Antibody not detected > or = 20.0 ?Antibody detected Cardiolipin Ab IgM <2.0 MPL-U/mL 2023 2:07 PM EST [employer] Comment: Value ?Interpretation ----- ? < 20.0 [...] aging. For additional information, please refer to http://education.[employer]/faq/IYX361 (This link is being provided for informational/ educational purposes only.) Blood Structure of peripheral vein / Unknown Venipuncture / Unknown 05/20/2024 3:31 PM EST 05/20/2024 3:45 PM EST Narrative [facility] W[facility] - 05/21/2024 2:07 PM EST [facility] Received Date: us [address] DO LAB BLOOD ORDERABLES Final Res ult [facility] [address] [facility] 3rd Floor, [place] [address], [place] [phone] [facility] [address] [facility] 3rd Floor, [place] [address], [place] [phone] * Complement C3c and C4c (05/20/2024 3:31 PM EST) Complement Component C3C 180 83 - 193 mg/dL 05/21/2024 1:53 AM EST [facility] Complement Component C4C 32 15 - 57 mg/dL 05/21/2024 1:53 AM EST [facility] [employer] [facility] Blood Structure of peripheral vein / Unknown Venipuncture / Unknown 05/20/2024 3:31 PM EST 05/20/2024 3:45 PM EST Narrative [facility] - 05/21/2024 1:53 AM EST [facility] Received Date: us [address] DO LAB BLOOD ORDERABLES Final Res ult [facility] [address] [facility] 3rd Floor, [place] [address], [facility] [address] [facility] 3rd Floor, [place] [address], * Lupus Anticoagulation Evaluation w/Reflex (05/20/2024 3:31 PM EST) Lupus Anticoagulant See Comments 05/22/2024 7:11 AM EST [facility] ([facility]) Comment: A Lupus Anticoagulant is not detected. Reference Range: ??Not Detected For additional information, please refer to http://education.[employer]/faq/MMZ80m1 (This link is being provided for informational/ [...] BLOOD ORDERABLES Final Res ult SLIM SANTIAGO) [address] [place] [address], [place] * Cyclic citrul peptide antibody, IgG (05/20/2024 3:31 PM EST) Cyclic Citrullinated Peptide (CCP) Ab (IgG) <16 UNITS 05/21/2024 10:26 PM EST [employer] Comment: Reference Range Negative: ?<20 Weak Positive: ? 20-39 Moderate Positive: ?? 40-59 Strong Positive: ? >59 Blood Structure of peripheral vein / Unknown Venipuncture / Unknown 05/20/2024 3:31 PM EST 05/20/2024 3:45 PM EST Narrative [facility] - 05/21/2024 10:26 PM EST [facility] Received Date: Newton Yenifer DO LAB BLOOD ORDERABLES Final Res ult [facility] [address] [facility] 3rd Floor, [place] [address], [place] [phone] [facility] [address] [facility] 3rd Floor, [place] [address], [place] [phone] * (ABNORMAL) NURIA Screen, IFA, w/Reflex to Titer & Pattern (05/20/2024 3:31 PM EST) NURIA Screen, IFA POSITIVE (A) NEGATIVE 05/22/2024 12:31 PM EST [facility] Comment: NURIA IFA is a first line screen for detecting the presence of up to approximately 150 autoantibodies in various autoimmune diseases. A positive NURIA IFA result is suggestive of autoimmune disease and reflexes to titer and pattern. Further laboratory testing may be considered if clinically indicated. For additional information, please refer to http://education.[employer]ese[employer]/faq/WXN269 (This link is being provided for informational/ educational purposes only.) ?? Blood Structure of peripheral vein / Unknown Venipuncture / Unknown 05/20/2024 3:31 PM EST 05/20/2024 3:45 PM EST Narrative [facility] - 05/22/2024 12:31 PM EST [facility] Received Date: [address] DO LAB BLOOD ORDERABLES Final Res ult [facility] [address] [facility] 3rd Floor, [place] [address], [facility] [address] [facility] 3rd Floor, [place] [address], * Sthy-3-Litxawcgxrdk I Antibodies, IgG/IgA/IgM (05/20/2024 3:31 PM EST) Beta2-Glycoprotein I (IgG) <2.0 <20.0 U/mL 05/25/2024 8:22 PM EST [facility] ([facility]) Comment: Value ?Interpretation ----- ? < 20.0 ? Antibody not detected > or = 20.0 ?Antibody detected Beta2-Glycoprotein I (IgM) <2.0 <20.0 U/mL 05/25/2024 8:22 PM EST [facility] ([facility]) Comment: Value ?Interpretation ----- ? < [...] aging. For additional information, please refer to http://education.[employer]/faq/MJP966 (This link is being provided for informational/ educational purposes only.) ? Blood Structure of peripheral vein / Unknown Venipuncture / Unknown 05/20/2024 3:31 PM EST 05/20/2024 3:45 PM EST Narrative [facility] - 05/25/2024 8:22 PM EST [facility] Received Date: us [address] DO LAB BLOOD ORDERABLES Final Res ult SLIM WINTER [address] [place] [address] 3rd Floor, [place] [address], [employer] [facility] [address] [place], [place] , [place] * Rheumatoid factor (05/20/2024 3:31 PM EST) Rheumatoid Factor <10 <14 IU/mL 05/20/2024 9:54 PM EST [facility] Blood Structure of peripheral vein / Unknown Venipuncture / Unknown 05/20/2024 3:31 PM EST 05/20/2024 3:45 PM EST Narrative [facility] - 05/20/2024 9:54 PM EST [facility] Received Date: Newtno Rapport LAB BLOOD ORDERABLES Final Res ult Performing Organization Address City/[facility]/ZIP Co de Phone Number [facility] [address] [facility] 3rd Floor, [place] [address], [place] [phone] [facility] [address] [facility] 3rd Floor, [place] [address], [place] [phone] * C-reactive protein (05/20/2024 3:31 PM EST) Pathologist [facility] C Reactive Protein <3.0 <=9.9 mg/L 05/20/2024 4:11 PM EST [facility] CLINICAL PATHOLOGY LABORATORY Blood Structure of peripheral vein / Unknown Venipuncture / Unknown 05/20/2024 3:31 PM EST 05/20/2024 3:45 PM EST LOC&ALL LAB BLOOD ORDERABLES Final Res ult Performing Organization Address City/[facility]/ZIP Co de Phone Number [facility] CLINICAL PATHOLOGY LABORATORY [address] [place] [address], * NURIA Specific Antibody w/Reflex to [place] (05/20/2024 3:31 PM EST) Pathologist [facility] NURIA Screen, Immunoassay NEGATIVE NEGATIVE 05/21/2024 2:12 PM EST [facility] Comment: A negative UNRIA Multiplex indicates the absence of detectable antibodies to component analytes consisting of double stranded DNA (dsDNA), chromatin, ribonucleoprotein (ICE PULLER), Jamison/ICE PULLER (Sm/ICE PULLER), Jamison (Sm), SS-A, SS-B, Laura-1, centromere B, Scl-70 and ribosomal P. A negative result should be interpreted in the context of the clinical and laboratory findings and does not rule out autoimmune disease characterized by other autoantibody specificities such as rheumatoid arthritis, autoimmune hepatitis, primary biliary cirrhosis, autoimmune thyroiditis, Mesa's disease, pernicious anemia, autoimmune neuropathies, vasculitis, celiac disease, and bullous disease. For additional information, please refer to http://education.Briteseed/faq/OQU552 (This link is being provided for informational/ educational purposes only.) ?? Blood Structure of peripheral vein / Unknown Venipuncture / Unknown 05/20/2024 3:31 PM EST 05/20/2024 3:45 PM EST Narrative [facility] - 05/21/2024 2:12 PM EST [facility] Received Date: [employer] DO LAB BLOOD ORDERABLES Final Res ult Performing Organization Address City/[facility]/ZIP Co de Phone Number [facility] VALPARAISO [address] [facility] 3rd Floor, [place] [address], [place] [phone] [facility] [address] [facility] [address] [facility], [place] [address], [place] [phone] * CK (05/20/2024 3:31 PM EST) CK 55 38 - 206 U/L 05/20/2024 4:11 PM EST [facility] CLINICAL PATHOLOGY LABORATORY Blood Structure of peripheral vein / Unknown Venipuncture / Unknown 05/20/2024 3:31 PM EST 05/20/2024 3:45 PM EST [employer] DO LAB BLOOD ORDERABLES Final Res ult [facility] CLINICAL PATHOLOGY LABORATORY [address] [place] [address], [place] * XR Foot 3+ vw Right [...] obtain the completed interpretation. ? Workstation ID: [id number] Narrative 05/20/2024 3:47 PM EST COMPARISON: ??There [...] normal limits. No spondyloarthropathy Resulting Agency Comment [id number] Procedure Note Saritha Fabian MD - 05/20/2024 [...] possible to obtain thecompleted interpretation. Workstation ID: [id number] [address] DO IMG XR PROCEDURES [...] obtain the completed interpretation. ? Workstation ID: [id number] Narrative 05/20/2024 3:47 PM EST COMPARISON: ??There [...] normal limits. No spondyloarthropathy Resulting Agency Comment [id number] Procedure Note Saritha Fabian MD - 05/20/2024 [...] possible to obtain thecompleted interpretation. Workstation ID: [id number] [address] DO IMG XR PROCEDURES [...] obtain the completed interpretation. ? Workstation ID: [id number] Narrative 05/20/2024 3:47 PM EST COMPARISON: ??There [...] normal limits. No spondyloarthropathy Resulting Agency Comment [id number] Procedure Note Saritha Fabian MD - 05/20/2024 [...] possible to obtain thecompleted interpretation. Workstation ID: [id number] us Newton Yenifer DO IMG XR PROCEDURES [...] obtain the completed interpretation. ? Workstation ID: [id number] Narrative 05/20/2024 3:47 PM EST COMPARISON: ??There [...] normal limits. No spondyloarthropathy Resulting Agency Comment [id number] Procedure Note Saritha Fabian MD - 05/20/2024 [...] possible to obtain thecompleted interpretation. Workstation ID: [id number] [address] DO IMG XR PROCEDURES [...] obtain the completed interpretation. ? Workstation ID: [id number] Narrative 05/20/2024 3:47 PM EST COMPARISON: ??There [...] normal limits. No spondyloarthropathy Resulting Agency Comment [id number] Procedure Note Saritha Fabian MD - 05/20/2024 [...] possible to obtain thecompleted interpretation. Workstation ID: [id number] [address] DO IMG XR PROCEDURES Final Result from Last 3 [place] [address] [facility] Care Teams Highway Worker Relationship Specialty Start Date End Date Petra Wiley [address] [place] [address] PCP - General Family Medicine 03/19/24
--- OUTSIDE RECORDS SUMMARY | 2024-08-11 19:30 | XMS_ITS | Encounter Summary ---
Author Organization [employer] Address [address] [facility] 7t [place] [address] Care Team Providers Care Car Hopper Name Role Phone Petra Wiley ADVERTISING SOLICITOR Primary Care Provider Willard Waters Unavailable [phone] KesslerSeptember Unavailable Juan Sandra MD Unavailable [phone] Brigid Guy NP Unavailable Vicente Mooney MD Unavailable Beth Rai MD Unavailable Michell Espinoza Unavailable Encounter Details Date Type Department Care Team (Latest Contact Info) Description 07/28/2024 1:30 PM EST Clinical Support [facility] DIABETES/NUTRITION [address] [place], [place] [phone] Tamanna Mcintyre, ANGELINA [address] [place], [place] [phone] BMI 35.0-35.9,adult (Primary Dx) Social History Tobacco [...] Pt is taking a enzyme capsule from [employer] at each meal. In addition, Pt [...] 08/14/2024 1:30 PM EST Clinical Support [facility] DIABETES/NUTRITION [address] [place] [address] [place] [address] 08/18/2024 1:30 PM EST Office Visit [facility] ADULT DENTAL [address] [place] [address] Venkat Barreto DDS [address] [place] [address] 11/04/2024 11:15 AM EDT Office Visit [facility] MEDICINE [address] [place] [address] Petra Wiley FNP [address] [place] [address] 01/18/2025 3:00 PM EDT Office Visit [facility] ADULT DENTAL [address] [place] [address] Sanaz Nelson documented as of this encounter Visit Diagnoses Diagnosis BMI 35.0-35.9,adult- Primary documented in this encounter Additional Health Concerns Assessment Noted Time PHQ-9 Depression Total Score: 13 03/16/ 024 3:11 PM EDT documented as of this encounter Care Teams Car Hopper Relationship Specialty Start Date End Date Petra Wiley FNP [address] [place] [phone] PCP - General Family Medicine 03/17/24 Willard Waters [address] Rheumatology 05/17/[address] 3rd [place] [address] Gastroenterology 05/17/24 Juan Sandra MD [address] [place] [address] Hematology and Oncology 05/17/24 Brigid Guy NP [address] [place] [address] Urology 05/17/24 Vicente Mooney MD [address] [place] [address] Obstetrics and Gynecology 05/17/24 Beth Rai MD [address] [place] [address] [place] [address] Neurology 05/17/24 Michell Espinoza [address] 3rd [place] [address] Cardiology 05/17/24 Shelia Zheng [employer] Meat Separator OperatorNursing Unit Coordinator 09/26/23 documented as of this encounter
--- OUTSIDE RECORDS SUMMARY | 2024-08-11 19:30 | XMS_ITS | Encounter Summary ---
Author Organization [employer] Address [address] [facility] 7t [place] [address] Care Team Providers Care Shelter Director Name Role Phone Petra Wiley NIC Primary Care Provider [phone] Willard Waters Unavailable [phone] September Unavailable Juan Sandra MD Unavailable [phone] Brigid Guy NP Unavailable Vicente Mooney MD Unavailable Beth Rai MD Unavailable [phone] Michell Espinoza Unavailable Reason for Visit * Reason Comments Routine Cleaning Dental Exam Encounter Details Date Type Department Care Team (Late st Contact Info) Description 07/20/2024 3:00 PM EST Office Visit [facility] ADULT DENTAL [address] [place] [address] Sanaz Nelson Social History Tobacco Use Types [...] the past 12 months, has t he [employer], gas, oil or water [employer] threatened to shut off services in your [...] Timeout Date: 07/20/24, Timeout Time: 1505 Location: [facility] Tooth: Maxilla and Mandible Procedure: X-rays and Prophylaxis Verified the above with patient, medical claims assistant, and provider. Confirmed via patient's chart, intraorally and by radiographs. Order Desk Caller: Yes. Language: [place]. Order Desk Caller's Name: Irais. Medical Hx: Vitals: Blood pressure [...] patient including brushing technique and flossing. Recommendations: [place] two times daily, modified aragon technique, Floss daily, Electric toothbrush, Soft bristle toothbrush, [place] Tongue, Anti-sensitivity toothpaste Recall Frequency: 6 mo [place]: RCT/ Exam Hygienist: Sanaz moore RDH documented in this encounter Plan of Treatment Upcoming Encounters Date Type Department Care Team (Late st Contact Info) Description 08/14/2024 1:30 PM EST Clinical Support [facility] DIABETES/NUTRITION [address] [place], [place] [phone] Tamanna Mcintyre [address] [place] [address] 08/18/2024 1:30 PM EST Office Visit [facility] ADULT DENTAL [address] [place], [place] [phone] Venkat Barreto DDS [address] [place] [address] 11/04/2024 11:15 AM EDT Office Visit [facility] MEDICINE [address] [place] [address] Petra Wiley FNP [address] [place] [address] 01/18/2025 3:00 PM EDT Office Visit [facility] ADULT DENTAL [address] [place] [address] Sanaz Nelson Scheduled Orders Name Type Priority [...] documented as of this encounter Care Teams Shelter Director Relationship Specialty Start Date End Date Petra Wiley FNP [address] [place] [address] PCP - General Family Medicine 03/17/24 Willard Waters [address] Rheumatology 05/17/24 Sumaya Kessler [address] [place] [address] 3rd [place] [address] Gastroenterology 05/17/24 Juan Sandra MD [address] [place] [address] Hematology and Oncology 05/17/24 Brigid Guy NP [address] [place] [address] Urology 05/17/24 Vicente Mooney MD [address] [place] [address] [address] [place] [address] Obstetrics and Gynecology 05/17/24 Beth Rai MD [address] [place] [address] Neurology 05/17/24 Michell Espinoza [address] [facility] 3rd [place] [address] Cardiology 05/17/24 Shelia Zheng Vacuum Frame OperatorAdministrative Assistant Front Desk 09/26/23 documented as of this encounter
--- OUTSIDE RECORDS SUMMARY | 2024-08-11 19:30 | XMS_ITS | Encounter Summary ---
Author Organization [employer] Address [address] [place] [address] 7t [place] [address] Care Team Providers Care Carpenter Inspector Name Role Phone Petra Wiley Primary Care Provider Willard Waters Unavailable [phone] September Unavailable Juan Sandra MD Unavailable [phone] Brigid Guy NP Unavailable Vicente Mooney MD Unavailable Beth Rai MD Unavailable Michell Espinoza Unavailable Reason for Referral * Consultation (Routine) - Authorized Specialty Diagnoses / Procedures Referred By Mehreen linares Referred To Contact Family Medicine Diagnoses Skin lesion of right arm Petra Wiley FNP [address] [place] [address] Phone: tel: fax: Referral ID Status Reason Start Date Expiration Date Visits Requested Visits Authorized [id number] Authorized Specialty Services Required 07/29/2024 07/29/2025 1 1 * Consultation (Routine) - Closed Specialty Diagnoses / Procedures Referred By Mehreen linares Referred To Contact Genetics Diagnoses Fibromyalgia NURIA positive Subcutaneous mass of abdominal wall Petra Wiley FNP [address] [place] [address] Phone: tel: fax: [address] Phone: tel: fax: Referral ID Status Reason Start Date Expiration Date V isits Requested Visits Authorized [id number] Closed Specialty Services Required 07/29/2024 07/29/2025 1 1 * Imaging (Routine) - Authorized Specialty Diagnoses / Procedures Referred By Mehreen linares Referred To Contact Radiology Diagnoses Breast pain, right Procedures BI US Breast Limited Right Petra Wiley FNP [address] [place] [address] Phone: tel: fax: [address] Phone: tel: fax: Referral ID Status Reason Start Date Expiration Date V isits Requested Visits Authorized [id number] Authorized 07/29/2024 07/29/2025 1 1 * Imaging (Routine) - Authorized Specialty Diagnoses / Procedures Referred By Mehreen linares Referred To Contact Radiology Diagnoses Breast pain, right Procedures BI Mammogram Diagnostic Tomosynthesis Right Petra Wiley FNP [address] [place] [address] Phone: tel: fax: [address] Phone: tel: fax: Referral ID Status Reason Start Date Expiration Date V isits Requested Visits Authorized [id number] Authorized 07/29/2024 07/29/2025 1 1 Encounter Details Date Type Department Care Team (Late st Contact Info) Description 07/29/2024 10:30 AM EST Office Visit [facility] MEDICINE [address] [place] [address] Petra Wiley FNP [address] [place] [address] Asthma, unspecified asthma severity, unspecified whether complicated, [...] 05/13/24 Weight management: Following with [facility] pharmacy order entry technician. Has lost approx 10 lbs over the [...] report. No bleeding or discharge. Specialists: Rheum ([facility]) - Dr. Street: hx of (+) NURIA, fibromyalgia GI ([facility])- RECONDITIONING ASSOCIATE Kessler: dysphagia, gastroparesis, GERD Heme/Onc ([facility])- Dr. Sandra: hx of PHUC, easy bruising Urology ([facility]) - RECONDITIONING ASSOCIATE Guy PROCESS IMPROVEMENT SPECIALIST ([facility] - Dr. Mooney Neuro ([facility]) - Dr. 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 Mooney EMB performed 04/14/24. Path: [...] Fibromyalgia Overview -Previously: Lyrica 75mg nightly through [facility] Physiatry/Rheum -Lyrica rx from PCP as of [...] Hematologic NURIA positive Overview Previous followed by [facility] Rheum - Dr. Waters May 2024: Established with [facility] Rheum - Dr. Street NURIA positive 2020: 1:160, anti dna, nicholas, ESR, CRP all wnl Relevant Orders Referral to Genetics Iron deficiency anemia Overview Lab Results Component Value Date HGB 11.5 (L) 03/18/2024 HGB 11.0 (L) 04/17/2021 HCT 36.5 (L) 03/18/2024 Following with [facility] Heme/Onc - Dr. Turner Current Assessment & [...] - Has consulted with Surgery team in [facility] for consideration of excision. Per their [...] Concerning signs/symptoms reviewed. Referred to [facility] Derm team Relevant Orders Referral to [facility] Derm Skin Adult Follow up: 3 months chronic conditions extended, sooner PRN documented in this encounter Miscellaneous Notes * Assessment & Plan Note - NIC Rudd - 07/29/2024 4:08 PM ESTAssociated Problem(s): Class 1 obesity with body mass index (BMI) of 32.0 to 32.9 in adult - Cont following with pharmacy order entry technician and healthy lifestyle interventions * Assessment & [...] - Has consulted with Surgery team in [facility] for consideration of excision. Per their [...] 1:30 PM EST Clinical Support [facility] DIABETES/NUTRITION [address] [place] [address] Tamanna Mcintyre, ANGELINA [address] [place] [address] 08/18/2024 1:30 PM EST Office Visit [facility] ADULT DENTAL [address] [place] [address] Venkat Barreto DDS [address] [place] [address] 11/04/2024 11:15 AM EDT Office Visit [facility] MEDICINE [address] [place] [address] Petra Wiley FNP [address] [place], [place] [phone] 01/18/2025 3:00 PM EDT Office Visit [facility] CHC ADULT DENTAL [address] [place] [address] Sanaz Nelson Scheduled Orders Name Type Priority [...] (Approximate), Expires: 07/29/2025 Referral to [facility] Derm Skin Adult Outpatient Referral Routine [...] documented as of this encounter Care Teams Carpenter Inspector Relationship Specialty Start Date End Date Petra Wiley FNP [address] [place] [address] PCP - General Family Medicine 03/17/24 Willard Waters [address] [place] [address] [address] [place], [place] Rheumatology 05/17/24September 11 [facility] 3rd [place] [address] Gastroenterology 05/17/24 Juan Sandra MD [address] [place] [address] Hematology and Oncology 05/17/24 Brigid Guy NP [address] [place] [address] Urology 05/17/24 Vicente Mooney MD [address] [place] [address] [address] [place] [address] Obstetrics and Gynecology 05/17/24 Beth Rai MD [address] [place] [address] [address] [place] [address] Neurology 05/17/24 Michell Espinoza [address] 3rd Floor [place] [address] Cardiology 05/17/24 Shelia Zheng Salesperson [employer] Inspector 09/26/23 documented as of this encounter
--- OUTSIDE RECORDS SUMMARY | 2024-08-11 19:30 | XMS_ITS | Clinical Summary ---
Author Organization [facility] Address [address] [place] [address] Care Team Providers Care Bag Shaker Name Role Phone Petra Wiley Primary Care Provider [phone] Allergies Active Allergy Reactions Criticality Noted Date [...] Type Department Care Team Description 08/06/2024 Telephone [facility] Dermatology Clinic 4th Floor [address] [facility], [place] [address] Placement Secretary: Khadra Westbrook Telephone Intake, Staff PAC Appt Request - New 08/01/2024 Results Follow-Up [facility] Rheumatology Clinic [address] [place] [address] Placement Secretary: Newton Rangel DO 07/22/2024 12:00 PM EST Office Visit [facility] Rheumatology Clinic [address] [place] [address] Placement Secretary: Newton Rangel DO Erythromelalgia (HCC) (Primary Dx); Polyarthralgia 06/26/2024 Transcribe Orders [facility] Physician Referral Services [address] [place] [address] Petra Wiley Subcutaneous mass of right upper extremity (Primary Dx); Subcutaneous mass of abdominal wall 05/20/2024 2:58 PM EST - 05/20/2024 11:59 PM EST Hospital Encounter [facility] XRay [address] [place] [address] DO Polyarthralgia Discharge Disposition: Home or Self Care () 05/20/2024 1:00 PM EST Office Visit [facility] Rheumatology Clinic [address] [place] [address] Placement Secretary: Newton Rangel DO Polyarthralgia (Primary Dx); Positive [...] Description 11/11/2024 12:00 PM EDT Office Visit [facility] Rheumatology Clinic [address] [place] [address] Placement Secretary: Newton Rangel DO [address] [facility] [place] [address] 02/09/2025 10:15 AM EDT Office Visit [facility] Dermatology Clinic 4th Floor [address] [facility], [place] [phone] Placement Secretary: Hipolito Lei MD [address] [place] [address] Health Maintenance Due Date Last Done Comments [...] Years) Completed 05/13/2024 Procedures * Due to [place] state law, this organization might not be [...] 3:31 PM EST Positive NURIA (antinuclear antibody) GLCS-4-[id number] I ANTIBODIES, IGG/IGA/IGM Routine 05/20/2024 3:31 PM [...] Last 3 Months Results * Due to [place] state law, this organization might not be sharing negative HIV tests. * Protein Electrophoresis w/Reflex to Immunofixation, Serum (07/22/2024 1:56 PM EST) Protein, Total 8.1 6.1 - 8.1 g/dL 07/28/2024 7:22 AM EST [facility] Albumin 4.8 3.8 - 4.8 g/dL 07/28/2024 7:22 AM EST [facility] Alpha 1 Globulin 0.3 0.2 - 0.3 g/dL 07/28/2024 7:22 AM EST [facility] Alpha 2 Globulin 0.7 0.5 - 0.9 g/dL 07/28/2024 7:22 AM EST [facility] Beta 1 Globulin 0.6 0.4 - 0.6 g/dL 07/28/2024 7:22 AM EST [facility] Beta 2 Globulin 0.5 0.2 - 0.5 g/dL 07/28/2024 7:22 AM EST [facility] Gamma Globulin 1.2 0.8 - 1.7 g/dL 07/28/2024 7:22 AM EST [facility] Interpretation See Comments 07/28/2024 7:22 AM EST [facility] Comment: Normal Serum Protein Electrophoresis Pattern. No abnormal protein bands (M-protein) detected. Blood Structure of peripheral vein / Unknown Venipuncture / Unknown 07/22/2024 1:56 PM EST 07/22/2024 2:37 PM EST [facility] 07/28/2024 7:22 AM EST [facility] Received Date: us [address] DO LAB BLOOD ORDERABLES Final Res ult [facility] [address] [facility] 3rd Floor, [place] [address], [place] [phone] [facility] [address] [facility] 3rd Floor, [place] [address], [place] [phone] * (ABNORMAL) Sedimentation Rate (07/22/2024 1:56 PM EST) Only the most recent of2 resultswithin the time period is included. [facility] Sed Rate 29(H) <20 mm/Hr mm/Hr 07/22/2024 2:52 PM EST [facility] Blood Structure of peripheral vein / Unknown Venipuncture / Unknown 07/22/2024 1:56 PM EST 07/22/2024 2:37 PM EST us [address] DO LAB BLOOD ORDERABLES Final Res ult Performing Organization Address City[facility]/ZIP Co de Phone Number [facility] [address] [place] [address], [place] * (ABNORMAL) NURIA, Titer and Pattern (05/20/2024 3:31 PM EST) NURIA Titer 1 1:640(H) titer 05/22/2024 12:31 PM EST [employer] [facility] Comment: ?Reference Range ?<1:40 ?Negative ?1:40-1:80 ?Low Antibody Level ?>1:80 ?Elevated Antibody Level NURIA Pattern 1 Nuclear, Dense Fine Speckled( A) 05/22/2024 12:31 PM EST [employer] [facility] Comment: Dense fine speckled pattern is seen in normal individuals and rarely associated with systemic lupus erythematosis (SLE), Sjogren's syndrome and systemic sclerosis. AC-2: Dense Fine Speckled International Consensus on NURIA Patterns (https://doi.org/10.1515/xnyq-0461-4981) Blood Structure of peripheral vein / Unknown Venipuncture / Unknown 05/20/2024 3:31 PM EST 05/20/2024 3:45 PM EST Narrative [facility] - 05/22/2024 12:31 PM EST [facility] Received Date: us Newton Yenifer DO LAB BLOOD ORDERABLES Final Res ult Performing Organization Address [facility]/ZIP Co de Phone Number [facility] [address] [facility] 3rd Floor, [address] [place] [address], [facility] [address] [facility] 3rd Floor, [address] [place] [address], * Cardiolipin Antibodies, IgG/IgM/IgA (05/20/2024 3:31 PM EST) Cardiolipin Ab IgA <2.0 APL-U/mL 2023 2:07 PM EST [employer] [facility] Comment: Value ?Interpretation ----- ? < 20.0 ? Antibody not detected > or = 20.0 ?Antibody detected Cardiolipin Ab IgG <2.0 GPL-U/mL 2023 2:07 PM EST [employer] [facility] Comment: Value ?Interpretation ----- ? < 20.0 ? Antibody not detected > or = 20.0 ?Antibody detected Cardiolipin Ab IgM <2.0 MPL-U/mL 2023 2:07 PM EST [employer] [facility] Comment: Value ?Interpretation ----- ? < 20.0 [...] aging. For additional information, please refer to http://education.[employer]/faq/TQP988 (This link is being provided for informational/ educational purposes only.) Blood Structure of peripheral vein / Unknown Venipuncture / Unknown 05/20/2024 3:31 PM EST 05/20/2024 3:45 PM EST Narrative [facility] - 05/21/2024 2:07 PM EST [facility] Received Date: [employer] LAB BLOOD ORDERABLES Final Res ult Performing Organization Address [facility]/ZIP Co de Phone Number [facility] [address], [place] [address], [place] [phone] [facility] [address], [place] [address], [place] [phone] * Complement C3c and C4c (05/20/2024 3:31 PM EST) Complement Component C3C 180 83 - 193 mg/dL 05/21/2024 1:53 AM EST [facility] Complement Component C4C 32 15 - 57 mg/dL 05/21/2024 1:53 AM EST [facility] Blood Structure of peripheral vein / Unknown Venipuncture / Unknown 05/20/2024 3:31 PM EST 05/20/2024 3:45 PM EST Narrative [email or web address] - 05/21/2024 1:53 AM EST [facility] Received Date: [employer] LAB BLOOD ORDERABLES Final Res ult [facility] [address], [place] [address], [place] [phone] [facility] [address], [place] [address], * Lupus Anticoagulation Evaluation w/Reflex (05/20/2024 3:31 PM EST) Lupus Anticoagulant See Comments 05/22/2024 7:11 AM EST [facility] Comment: A Lupus Anticoagulant is not detected. Reference Range: ??Not Detected For additional information, please refer to http://ScraperWiki.[employer]/faq/RBF61k1 (This link is being provided for informational/ [...] ORDERABLES Final Res ult [facility] CABRERA (PILI) [address] [place] [address], [place] * Cyclic citrul peptide antibody, IgG (05/20/2024 3:31 PM EST) Cyclic Citrullinated Peptide (CCP) Ab (IgG) <16 UNITS 05/21/2024 10:26 PM EST [facility] Comment: Reference Range Negative: ?<20 Weak Positive: ? 20-39 Moderate Positive: ?? 40-59 Strong Positive: ? >59 Blood Structure of peripheral vein / Unknown Venipuncture / Unknown 05/20/2024 3:31 PM EST 05/20/2024 3:45 PM EST [facility] - 05/21/2024 10:26 PM EST [facility] Received Date: us [address] DO LAB BLOOD ORDERABLES Final Res ult Performing Organization Address [facility]/ZIP Co de Phone Number [facility] [address], [place] [address], [place] [phone] [facility] [address], [address] [place] [address], [place] [phone] * (ABNORMAL) NURIA Screen, IFA, w/Reflex to Titer & Pattern (05/20/2024 3:31 PM EST) Pathologist [facility] NURIA Screen, IFA POSITIVE (A) NEGATIVE 05/22/2024 12:31 PM EST [facility] Comment: NURIA IFA is a first line screen for detecting the presence of up to approximately 150 autoantibodies in various autoimmune diseases. A positive NURIA IFA result is suggestive of autoimmune disease and reflexes to titer and pattern. Further laboratory testing may be considered if clinically indicated. For additional information, please refer to http://education.emids/faq/RNK646 (This link is being provided for informational/ educational purposes only.) ?? Blood Structure of peripheral vein / Unknown Venipuncture / Unknown 05/20/2024 3:31 PM EST 05/20/2024 3:45 PM EST [facility] - 05/22/2024 12:31 PM EST [facility] Received Date: us [address] DO LAB BLOOD ORDERABLES Final Res ult Performing Organization Address [facility]/ZIP Co de Phone Number [facility] [address] [facility] [address] [facility], [place] [address], [place] [phone] [facility] [address] [facility] [address] [facility], [place] [address], [place] [phone] * Gdlu-4-Ezpglbaznfhy I Antibodies, IgG/IgA/IgM (05/20/2024 3:31 PM EST) [...] aging. For additional information, please refer to http://education.[employer]/faq/PHD779 (This link is being provided for informational/ educational purposes only.) ? Blood Structure of peripheral vein / Unknown Venipuncture / Unknown 05/20/2024 3:31 PM EST 05/20/2024 3:45 PM EST Narrative [facility] - 05/25/2024 8:22 PM EST [facility] Received Date:[id number] Newton Yenifer DO LAB BLOOD ORDERABLES Final Res ult [facility] [address] [facility] [address] [facility], [place] [address], [place] [phone] [facility] [address] [place] [address], * Rheumatoid factor (05/20/2024 3:31 PM EST) Rheumatoid Factor <10 <14 IU/mL 05/20/2024 9:54 PM EST [facility] Blood Structure of peripheral vein / Unknown Venipuncture / Unknown 05/20/2024 3:31 PM EST 05/20/2024 3:45 PM EST Narrative [facility] - 05/20/2024 9:54 PM EST [facility] Received Date:[id number] us Newton Yenifer DO LAB BLOOD ORDERABLES Final Res ult Performing Organization Address [facility]/ZIP Co de Phone Number [facility] [address] [facility] 3rd Floor, [place] [address], [place] [phone] [facility] [address] [facility] 3rd Floor, [place] [address], [place] [phone] * C-reactive protein (05/20/2024 3:31 PM EST) C Reactive Protein <3.0 <=9.9 mg/L 05/20/2024 4:11 PM EST [facility] Blood Structure of peripheral vein / Unknown Venipuncture / Unknown 05/20/2024 3:31 PM EST 05/20/2024 3:45 PM EST us Newton Popov DO LAB BLOOD ORDERABLES Final Res ult [facility] PATH[facility]Y LAB[facility]ORY [address] [place] [address], [place] * NURIA Specific Antibody w/Reflex to [employer] (05/20/2024 3:31 PM EST) NURIA Screen, Immunoassay NEGATIVE NEGATIVE 05/21/2024 2:12 PM EST [facility] Comment: A negative NURIA Multiplex indicates the absence of detectable antibodies to component analytes consisting of double stranded DNA (dsDNA), chromatin, ribonucleoprotein (SHAREMILKER), Jamison/SHAREMILKER (Sm/SHAREMILKER), Jamison (Sm), SS-A, SS-B, Laura-1, centromere B, [...] disease. For additional information, please refer to http://education.emids/faq/IYL243 (This link is being provided for informational/ educational purposes only.) ?? Blood Structure of peripheral vein / Unknown Venipuncture / Unknown 05/20/2024 3:31 PM EST 05/20/2024 3:45 PM EST Narrative [facility] - 05/21/2024 2:12 PM EST [facility] Received Date: us Newton Popov DO LAB BLOOD ORDERABLES Final Res ult [facility] [address] [facility] 3rd Floor, [place] [address], [place] [phone] [facility] [address] [facility] 3rd [address], [place] [address], [place] [phone] * CK (05/20/2024 3:31 PM EST) CK 55 38 - 206 U/L 05/20/2024 4:11 PM EST [facility] Blood Structure of peripheral vein / Unknown Venipuncture / Unknown 05/20/2024 3:31 PM EST 05/20/2024 3:45 PM EST [address] DO LAB BLOOD ORDERABLES Final Res ult [facility] [address] [place] [address], [place] * XR Foot 3+ vw Right [...] obtain the completed interpretation. ? Workstation ID: [id number] Narrative 05/20/2024 3:47 PM EST COMPARISON: ??There are no prior studies available for comparison at this time. ?? FINDINGS Bilateral feet x-rays AP lateral and oblique views. Bilaterally truncation of the distal phalangeal cm of most of the toes. Bilaterally no [...] normal limits. No spondyloarthropathy Resulting Agency Comment [id number] Procedure Note Saritha Fabian MD - 05/20/2024 [...] possible to obtain thecompleted interpretation. Workstation ID: [id number] [address] DO IMG XR PROCEDURES [...] obtain the completed interpretation. ? Workstation ID: [id number] Narrative 05/20/2024 3:47 PM EST COMPARISON: ??There [...] normal limits. No spondyloarthropathy Resulting Agency Comment [id number] Procedure Note Saritha Fabian MD - 05/20/2024 [...] possible to obtain thecompleted interpretation. Workstation ID: [id number] [address] DO IMG XR PROCEDURES [...] obtain the completed interpretation. ? Workstation ID: [id number] Narrative 05/20/2024 3:47 PM EST COMPARISON: ??There [...] normal limits. No spondyloarthropathy Resulting Agency Comment [id number] Procedure Note Saritha Fabian MD - 05/20/2024 [...] possible to obtain thecompleted interpretation. Workstation ID: [id number] [address] DO IMG XR PROCEDURES [...] obtain the completed interpretation. ? Workstation ID: [id number] Narrative 05/20/2024 3:47 PM EST COMPARISON: ??There [...] normal limits. No spondyloarthropathy Resulting Agency Comment [id number] Procedure Note Saritha Fabian MD - 05/20/2024 [...] possible to obtain thecompleted interpretation. Workstation ID: [id number] [address] DO IMG XR PROCEDURES [...] obtain the completed interpretation. ? Workstation ID: [id number] Narrative 05/20/2024 3:47 PM EST COMPARISON: ??There [...] normal limits. No spondyloarthropathy Resulting Agency Comment [id number] Procedure Note Saritha Fabian MD - 05/20/2024 [...] possible to obtain thecompleted interpretation. Workstation ID: [id number] [address] DO IMG XR PROCEDURES Final Result from Last 3 Months Insurance Tari BUNCH, [place] [id number] [facility] Care Teams Bag Shaker Relationship Specialty Start Date End Date Petra Wiley [address] [place] [address] PCP - General Family Medicine 03/19/24
--- OUTSIDE RECORDS SUMMARY | 2024-08-11 19:30 | XMS_ITS | Encounter Summary ---
Author Organization [employer] Address [address] [place] [address] 7t [place] [address] Care Team Providers Care Wax Machine Operator Name Role Phone Jennie Murray MD Primary Care Provider [phone] Petra Wiley Primary Care Provider Willard Waters Unavailable [phone] September Unavailable Juan Sandra MD Unavailable [phone] Brigid Guy NP Unavailable Vicente Mooney MD Unavailable Beth Rai MD Unavailable Michell Espinoza Unavailable Reason for Visit * Reason Onset Date Comments medication 09/19/2022 Encounter Details Date Type Department Care Team (Late st Contact Info) Description 09/19/2022 Telephone [facility] ADULT DENTAL [address] [place], [place] [phone] Venkat Barreto DDS [address] [place] [address] medication Social History Tobacco Use Types Packs/Day [...] EDT Script was sent for Augementin to [facility] in [place]. Patient went in to flower buncher or picker script and they stated there was nothing there. Contacted [facility] and they stated that nationwide there was a shut down on their system for about 3 hours so it doesn't look like they received it. Can it be resent for patient? documented in this encounter Plan of Treatment Upcoming Encounters Date Type Department Care Team (Late st Contact Info) Description 08/14/2024 1:30 PM EST Clinical Support [facility] DIABETES/NUTRITION [address] [place] [address] Tamanna Mcintyre, ANGELINA [address] [place] [address] 08/18/2024 1:30 PM EST Office Visit [facility] ADULT DENTAL [address] [place] [address] Venkat Barreto DDS [address] [place] [address] 11/04/2024 11:15 AM EDT Office Visit [facility] MEDICINE [address] [place] [address] Petra Wiley FNP 505 [place] [address] 01/18/2025 3:00 PM EDT Office Visit [facility] [address] [place] [address] Sanaz Nelson documented as of this encounter Visit Diagnoses Not on filedocumented in this encounter Additional Health Concerns Assessment Noted Time PHQ-9 Depression Total Score: 0 07/04/19 23 3:01 PM EST documented as of this encounter Care Teams Wax Machine Operator Relationship Specialty Start Date End Date Jennie Murray MD 230 [place] [address] PCP - General Family Medicine 06/23/13 03/16/24 Petra Wiley FNP [address] [place] [address] PCP - General Family Medicine 03/17/24 Willard Waters [address] [place] [address] Rheumatology 05/17/24KesslerSeptember 11 [facility] 3rd [place] [address] Gastroenterology 05/17/24 Juan Sandra MD [address] [place] [address] Hematology and Oncology 05/17/24 Brigid Guy NP [address] [facility] [address] [place] [address] Urology 05/17/24 Vicente Mooney MD [address] [place] [address] [address] [place] [address] Obstetrics and Gynecology 05/17/24 Beth Rai MD [address] [place] [address] 140 [place] [address] Neurology 05/17/24 Michell Espinoza [address] 3rd Floor [place] [address] Cardiology 05/17/24 Shelia Zheng Community Placement WorkerCustomer Accounts Advisor 09/26/23 documented as of this encounter
--- OUTSIDE RECORDS SUMMARY | 2024-08-11 19:30 | XMS_ITS | Encounter Summary ---
Author Organization [employer] Address [address] [facility] 7t [place] [address] Care Team Providers Care Residential Monitor Name Role Phone Petra Wiley NIC Primary Care Provider [phone] Willard Waters Unavailable [phone] September Unavailable Juan Sandra MD Unavailable [phone] Brigid Guy NP Unavailable Vicente Mooney MD Unavailable Beth Rai MD Unavailable Michell Espinoza Unavailable Reason for Visit * Reason Comments Eyelid Lesion Encounter Details Date Type Department Care Team (Late st Contact Info) Description 08/04/2024 2:30 PM EST Office Visit [facility] OPTOMETRY [address] [place], [place] [phone] Waqas, Cristine, OD [address] [place], [place] [phone] Hordeolum internum of left lower eyelid (Primary [...] Description 08/14/2024 1:30 PM EST Clinical Support [facility] DIABETES/NUTRITION [address] [place] [address] Tamanna Mcintyre, ANGELINA 230 [place] [address] 08/18/2024 1:30 PM EST Office Visit [facility] ADULT DENTAL [address] [place] [address] Venkat Barreto DDS 230 [place] [address] 11/04/2024 11:15 AM EDT Office Visit [facility] MEDICINE [address] [place] [address] Petra Wiley FNP [address] [place] [address] 01/18/2025 3:00 PM EDT Office Visit [facility] CHC ADULT DENTAL [address] [place] [address] Sanaz Nelson documented as of this encounter Visit Diagnoses Diagnosis Hordeolum internum of left lower eyelid- Primary Dry eyes, bilateral Hyperopia of right eye documented in this encounter Additional Health Concerns Assessment Noted Time PHQ-9 Depression Total Score: 13 024 3:11 PM EDT documented as of this encounter Care Teams Residential Monitor Relationship Specialty Start Date End Date Petra Wiley FNP 230 [place] [address] PCP - General Family Medicine 03/17/24 Willard Waters [address] [place] [address] Rheumatology 05/17/24 Victoria Sumaya 11 [facility] 3rd [place] [address] Gastroenterology 05/17/24 Juan Sandra MD [address] [place] [address] Hematology and Oncology 05/17/24 Brigid Guy NP [address] [place] [address] Urology 05/17/24 Vicente Mooney MD [address] [place] [address] [address] [place] [address] Obstetrics and Gynecology 05/17/24 Beth Rai MD [address] [place] [address] 140 [place] [address] Neurology 05/17/24 Michell Espinoza [address] 3rd [place] [address] Cardiology 05/17/24 Shelia Zheng Horticulture SuperintendentAssistant Librarian 09/26/23 documented as of this encounter
--- OUTSIDE RECORDS SUMMARY | 2024-08-11 19:30 | XMS_ITS | Encounter Summary ---
Author Organization [facility] [employer] Address 75 [facility] 7t [place] [address] Care Team Providers Care Media Production Manager Name Role Phone Petra Wiley NIC Primary Care Provider Willard Waters Unavailable [phone] September Unavailable Juan Sandra MD Unavailable [phone] Brigid Guy NP Unavailable Vicente Mooney MD Unavailable Beth Rai MD Unavailable [phone] Michell Espinoza Unavailable Encounter Details Date Type [...] Description 08/14/2024 1:30 PM EST Clinical Support [facility] DIABETES/NUTRITION 230 [place] [address] [place] [address] 08/18/2024 1:30 PM EST Office Visit [facility] ADULT DENTAL 230 [place] [address] Venkat Barreto DDS 230 [place] [address] 11/04/2024 11:15 AM EDT Office Visit [facility] MEDICINE 230 [place] [address] Petra Wiley FNP 505 [place] [address] 01/18/2025 3:00 PM EDT Office Visit [facility] CHC ADULT DENTAL 505 [place] [address] Sanaz Nleson documented as of this encounter Visit Diagnoses Not on filedocumented in this encounter Additional Health Concerns Assessment Noted Time PHQ-9 Depression Total Score: 13 03/16/ 024 3:11 PM EDT documented as of this encounter Care Teams Media Production Manager Relationship Specialty Start Date End Date Petra Wiley FNP 230 [place] [address] PCP - General Family Medicine 03/17/24 Willard Waters [address] [place] [address] Rheumatology 05/17/24 VictoriaSeptember 11 [facility] 3rd [place] [address] Gastroenterology 05/17/24 Juan Sandra MD [address] [place] [address] Hematology and Oncology 05/17/24 Brigid Guy NP 10 [facility] [address] [place] [address] Urology 05/17/24 Vicente Mooney MD [address] [place] [address] [address] [place] [address] Obstetrics and Gynecology 05/17/24 Beth Rai MD [address] [place] [address] 140 [place] [address] Neurology 05/17/24 Michell Espinoza 11 [facility] 3rd [place] [address] Cardiology 05/17/24 Shelia Zheng Skin Care InstructorLoader Engineer 09/26/23 documented as of this encounter
--- OUTSIDE RECORDS SUMMARY | 2024-08-11 19:30 | XMS_ITS | Encounter Summary ---
Author Organization [employer] Address 75 [facility] 7t [place] [address] Care Team Providers Care Car Wash Supervisor Name Role Phone Petra Wiley NIC Primary Care Provider Willard Waters Unavailable [phone] September Unavailable Juan Sandra MD Unavailable [phone] Brigid Guy NP Unavailable Vicente Mooney MD Unavailable Beth Rai MD Unavailable [phone] Michell Espinoza Unavailable Encounter Details Date Type [...] 08/14/2024 1:30 PM EST Clinical Support [facility] DIABETES/NUTRITION 230 [place] [address] [place] [address] 08/18/2024 1:30 PM EST Office Visit [facility] ADULT DENTAL [address] [place] [address] Venkat Barreto DDS 230 [place] [address] 11/04/2024 11:15 AM EDT Office Visit [facility] MEDICINE 230 [place] [address] Petra Wiley FNP 505 [place] [address] 01/18/2025 3:00 PM EDT Office Visit [facility] CHC ADULT DENTAL 505 [place] [address] Sanaz Nelson documented as of this encounter Visit Diagnoses Not on filedocumented in this encounter Additional Health Concerns Assessment Noted Time PHQ-9 Depression Total Score: 13 03/16/ 024 3:11 PM EDT documented as of this encounter Care Teams Car Wash Supervisor Relationship Specialty Start Date End Date Petra Wiley FNP 230 [place] [address] PCP - General Family Medicine 03/17/24 Willard Waters [address] [place] [address] Rheumatology 05/17/24 VictoriaSeptember 11 [facility] 3rd [place] [address] Gastroenterology 05/17/24 Juan Sandra MD [address] [place] [address] Hematology and Oncology 05/17/24 Brigid Guy NP 10 [facility] [address] [place] [address] Urology 05/17/24 Vicente Mooney MD [address] [place] [address] [address] [place] [address] Obstetrics and Gynecology 05/17/24 Beth Rai MD [address] [place] [address] 140 [place] [address] Neurology 05/17/24 Michell Espinoza 11 [facility] 3rd [place] [address] Cardiology 05/17/24 Shelia Zheng Collet Making Machine OperatorTow Motor Driver 09/26/23 documented as of this encounter
--- OUTSIDE RECORDS SUMMARY | 2024-08-11 19:30 | XMS_ITS | Encounter Summary ---
Author Organization [facility] Address [address] [place] [address] Care Team Providers Care Hazard Waste Handler Name Role Phone Petra Wiley Primary Care Provider [phone] Reason for Referral * Consultation (Routine) - Pending Review Specialty Diagnoses / Procedures Referred By Mehreen linares Referred To Contact Dermatology Diagnoses Erythromelalgia (HCC) Newton Street DO [address] [place] [address] [place] [address] Phone: tel: fax: [facility] Dermatology Clinic 2nd Floor [address] [facility], [place] [address] Phone: tel: fax: Referral ID Status Reason Start Date Expiration Date Visits Requested Visits Authorized [id number] Pending Review Specialty Services Required 07/22/2024 01/21/2026 6 6 Reason for Visit * Reason Comments Follow-up Polyarthralgia * Consultation (Routine) - Authorized Specialty Diagnoses / Procedures Referred By Mehreen linares Referred To Contact Rheumatology Diagnoses Positive NURIA (antinuclear antibody) Kristen Sparrow MD [address] [place] [address] Phone: tel: fax: [facility] Rheumatology Clinic [address] [place] [address] Phone: tel: fax: Referral ID Status Reason Start Date Expiration Date Visits Requested Visits Authorized [id number] Authorized Specialty Services Required 03/19/2024 09/18/2025 6 6 Encounter Details Date Type Department Care Team (Latest Contact Info) Description 07/22/2024 12:00 PM EST Office Visit [facility] Rheumatology Clinic [address] [place] [address] Nuclear Plant Equipment Operator: Newton Rangel DO [address] [facility] [place] [address] Erythromelalgia (HCC) (Primary Dx); Polyarthralgia Social History [...] sent through Care Everywhere. * Slime-Danlos Syndrome (Liberian) documented in this encounter Progress Notes * Newton Street DO - 07/22/2024 12:15 PM EST [facility] Patient: Ambika Gleason Date of Service: 07/22/2024 Loc: [facility] Note entered by: Newton Street, Return Agent Airport Return Agent Airport Used: Yes Type of Return Agent Airport Used: Video Return Agent Airport Return Agent Airport Name/Number: CONSENT: I reviewed the use of [employer] virtual scribing technology with the patient, and they consented to allowing an audio recording of the encounter for visit documentation purposes. Reason for Visit: Chief Complaint Patient presents with Follow-up Polyarthralgia History of Present Illness The patient presents for evaluation of pain in her jaw, hands, and feet. She is accompanied by an diplomatic interpreter. She reports experiencing severe pain in her [...] 75 mg but discontinued it when her piece marker small arms left the practice. She has declined pain [...] that [facility] [place]. Supplemental Information She has a fast heart rate and continues to see a doctor for gastroparesis. 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 She sometimes experiences tongue pain. MEDICATIONS Current: [...] 2 puffs by mouth 2 times daily. ccwiaetflc-yshmwlsecuqww-kubhzwtf (FIORICET) 50-325-40 mg tablet TOME ADRY TABLETA [...] Center 11/11/2024 12:[address] DO [facility] [place] 02/09/2025 10:15 AM Hipolito Crain MD [facility] Thank you for involving us in [...] Description 11/11/2024 12:00 PM EDT Office Visit [facility] Rheumatology Clinic [address] [place] [address] Nuclear Plant Equipment Operator: Newton Rangel DO [address] [place] [address] [place] [address] 02/09/2025 10:15 AM EDT Office Visit [facility] Dermatology Clinic [address]th [address] [place] [address], [place] [address] Nuclear Plant Equipment Operator: Hipolito Lei MD [address] [place] [address] Scheduled Referrals Name Type Priority Associated Diagnoses Order Schedule Ambulatory referral to Dermatology Outpatient Referral Routine Erythromelalgia (HCC) Expected: 07/22/2024, Expires: 01/19/2025 documented as of this encounter Results * Due to [place] state law, this organization might not be sharing negative HIV tests. * Protein Electrophoresis w/Reflex to Immunofixation, Serum (07/22/2024 1:56 PM EST) Protein, Total 8.1 6.1 - 8.1 g/dL 07/28/2024 7:22 AM EST [facility] Albumin 4.8 3.8 - 4.8 g/dL 07/28/2024 7:22 AM EST [facility] Alpha 1 Globulin 0.3 0.2 - 0.3 g/dL 07/28/2024 7:22 AM EST [facility] Alpha 2 Globulin 0.7 0.5 - 0.9 g/dL 07/28/2024 7:22 AM EST [facility] [place] [facility] Beta 1 Globulin 0.6 0.4 - 0.6 g/dL 07/28/2024 7:22 AM EST [facility] Beta 2 Globulin 0.5 0.2 - 0.5 g/dL 07/28/2024 7:22 AM EST [facility] Gamma Globulin 1.2 0.8 - 1.7 g/dL 07/28/2024 7:22 AM EST [facility] Interpretation See Comments 07/28/2024 7:22 AM EST [facility] Comment: Normal Serum Protein Electrophoresis Pattern. No abnormal protein bands (M-protein) detected. Blood Structure of peripheral vein / Unknown Venipuncture / Unknown 07/22/2024 1:56 PM EST 07/22/2024 2:37 PM EST [facility] - 07/28/2024 7:22 AM EST [facility] Received Date: us Newton Street DO LAB BLOOD ORDERABLES Final Res ult [facility] [address] 3rd Floor, [place] [address], [place] [phone] [facility] [address] [facility] 3rd Floor, [place] [address], [place] [phone] * (ABNORMAL) Sedimentation Rate (07/22/2024 1:56 PM EST) Sed Rate 29(H) <20 mm/Hr mm/Hr 07/22/2024 2:52 PM EST [facility] Blood Structure of peripheral vein / Unknown Venipuncture / Unknown 07/22/2024 1:56 PM EST 07/22/2024 2:37 PM EST us [address] DO LAB BLOOD ORDERABLES Final Res ult [facility] [address] [place] [address], documented in this encounter Visit Diagnoses Diagnosis Erythromelalgia (HCC)- Primary Erythromelalgia Polyarthralgia Pain in joint, multiple sites documented in this encounter Care Teams Hazard Waste Handler Relationship Specialty Start Date End Date Petra Wiley [address] [place] [address] PCP - General Family Medicine 03/19/24 documented as of this encounter
--- OUTSIDE RECORDS SUMMARY | 2024-08-11 19:30 | XMS_ITS | Encounter Summary ---
Author Organization [facility] Address [address] [place] [address] Care Team Providers Care Column Precaster Name Role Phone Petra Wiley Primary Care Provider [phone] Encounter Details Date Type Department Care Team (Late Contact Info) Description 08/01/2024 Results Follow-Up [facility] Rheumatology Clinic [address] [place] [address] Financial Management: Newton Rangel DO [address] [place] [address] Social History Tobacco Use Types Packs/Day Years [...] Description 11/11/2024 12:00 PM EDT Office Visit [facility] Rheumatology Clinic [address] [place] [address] Financial Management: Newton Rangel DO [address] [place] [address] 02/09/2025 10:15 AM EDT Office Visit [facility] Dermatology Clinic 4th Floor [address] [facility], Fourth [place] [address] Financial Management: Hipolito Lei MD [address] [place] [address] documented as of this encounter Visit Diagnoses Not on filedocumented in this encounter Care Teams Column Precaster Relationship Specialty Start Date End Date Petra Wiley [address] [place] [address] PCP - General Family Medicine 03/19/24 documented as of this encounter
--- OUTSIDE RECORDS SUMMARY | 2024-08-11 19:30 | XMS_ITS | Encounter Summary ---
Author Organization [employer] Address [address] [facility] 7t [place] [address] Care Team Providers Care Ob Gyn Name Role Phone Petra Wiley NIC Primary Care Provider Willard Waters Unavailable [phone] KesslerSeptember Unavailable Juan Sandra MD Unavailable [phone] Brigid Guy NP Unavailable Vicente Mooney MD Unavailable Beth Rai MD Unavailable [phone] Michell Espinoza Unavailable Encounter Details Date Type Department Care Team (Latest Contact Info) Description 07/20/2024 2:00 PM EST Clinical Support [facility] DIABETES/NUTRITION [address] [place], [place] [phone] Tamanna Mcintyre, RD [address] [place], [place] [phone] BMI 35.0-35.9,adult (Primary Dx) Social History Tobacco [...] education assessment appointment with RD. 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 Pt said she understands RD. RD didn't [...] Description 08/14/2024 1:30 PM EST Clinical Support [facility] DIABETES/NUTRITION [address] [place] [address] [place] [address] 08/18/2024 1:30 PM EST Office Visit [facility] ADULT DENTAL [address] [place] [address] Venkat Barreto DDS [address] [place] [address] 11/04/2024 11:15 AM EDT Office Visit [facility] MEDICINE [address] [place] [address] Petra Wiley FNP 505 [place] [address] 01/18/2025 3:00 PM EDT Office Visit [facility] ADULT DENTAL 505 [place] [address] Sanaz Nelson documented as of this encounter Visit Diagnoses Diagnosis BMI 35.0-35.9,adult- Primary documented in this encounter Additional Health Concerns Assessment Noted Time PHQ-9 Depression Total Score: 13 03/16/ 024 3:11 PM EDT documented as of this encounter Care Teams Ob Gyn Relationship Specialty Start Date End Date Petra Wiley FNP [address] [place] [address] PCP - General Family Medicine 03/17/24 Willard Waters [address] Rheumatology 05/17/[address] 3rd [place] [address] Gastroenterology 05/17/24 Juan Sandra MD [address] [place] [address] Hematology and Oncology 05/17/24 Brigid Guy NP [address] [place] [address] Urology 05/17/24 Vicente Mooney MD [address] [place] [address] Obstetrics and Gynecology 05/17/24 Beth Rai MD [address] [place] [address] [place] [address] Neurology 05/17/24 Michell Espinoza [address] 3rd [place] [address] Cardiology 05/17/24 Shelia Zheng Early Head Start TeacherAdvertising Layout Worker 09/26/23 documented as of this encounter
--- OUTSIDE RECORDS SUMMARY | 2024-08-11 19:30 | XMS_ITS | Encounter Summary ---
Author Organization [employer] Address [address] [facility] 7t [place] [address] Care Team Providers Care Hatchery Supervisor Name Role Phone Petra Wiley NIC Primary Care Provider [phone] Willard Waters Unavailable [phone] September Unavailable Juan Sandra MD Unavailable [phone] Brigid Guy NP Unavailable Vicente Mooney [...] PM EST Clinical Support [facility] DIABETES/NUTRITION [address] [place] [address] [place] [address] 08/18/2024 1:30 PM EST Office Visit [facility] ADULT DENTAL [address] [place] [address] Venkat Barreto DDS [address] [place] [address] 11/04/2024 11:15 AM EDT Office Visit [facility] MEDICINE [address] [place] [address] Petra Wiley FNP 505 [place] [address] 01/18/2025 3:00 PM EDT Office Visit [facility] CHC ADULT DENTAL 505 [place] [address] Sanaz Nelson documented as of this encounter Visit Diagnoses Not on filedocumented in this encounter Additional Health Concerns Assessment Noted Time PHQ-9 Depression Total Score: 13 03/16/ 024 3:11 PM EDT documented as of this encounter Care Teams Hatchery Supervisor Relationship Specialty Start Date End Date Petra Wiley FNP [address] [place] [address] PCP - General Family Medicine 03/17/24 Willard Waters [address] [place] [address] Rheumatology 05/17/24 VictoriaSeptember 11 [facility] 3rd [place] [address] Gastroenterology 05/17/24 Juan Sandra MD [address] [place] [address] Hematology and Oncology 05/17/24 Brigid Guy NP 10 [facility] [address] [place] [address] Urology 05/17/24 Vicente Mooney MD [address] [place] [address] [address] [place] [address] Obstetrics and Gynecology 05/17/24 Beth Rai MD [address] [place] [address] 140 [place] [address] Neurology 05/17/24 Michell Espinoza 11 [facility] 3rd [place] [address] Cardiology 05/17/24 Shelia Zheng Sew On OperatorCostume Designer 09/26/23 documented as of this encounter
--- OUTSIDE RECORDS SUMMARY | 2024-08-11 19:30 | XMS_ITS | Encounter Summary ---
Author Organization [employer] Address [address] [place] [address] 7t [place] [address] Care Team Providers Care Administrative Assistant Front Desk Name Role Phone Jennie Murray MD Primary Care Provider [phone] Petra Wiley Primary Care Provider [phone] Willard Waters Unavailable [phone] September Unavailable Juan Sandra MD Unavailable [phone] Brigid Guy NP Unavailable Vicente Mooney [...] Description 08/21/2022 Telephone [facility] ADULT [facility] [address] [place], [place] [phone] Venkat Barreto DDS [address] [place], [place] [phone] Appointment (Ambika Anaya 1985 Patient called in [...] Description 08/14/2024 1:30 PM EST Clinical Support [facility] DIABETES/NUTRITION 230 [place], [place] [phone] Tamanna Mcintyre [address] [place], [place] [phone] 08/18/2024 1:30 PM EST Office Visit [facility] ADULT DENTAL [address] [place] [address] Venkat Barreto DDS [address] [place] [address] 11/04/2024 11:15 AM EDT Office Visit [facility] MEDICINE [address] [place] [address] Petra Wiley FNP 505 [place] [address] 01/18/2025 3:00 PM EDT Office Visit [facility] CHC ADULT DENTAL 505 [place] [address] Sanaz Nelson documented as of this encounter Visit Diagnoses Not on filedocumented in this encounter Additional Health Concerns Assessment Noted Time PHQ-9 Depression Total Score: 0 07/04/19 23 3:01 PM EST documented as of this encounter Care Teams Administrative Assistant Front Desk Relationship Specialty Start Date End Date Jennie Murray MD 230 [place] [address] PCP - General Family Medicine 06/23/13 03/16/24 Petra Wiley FNP 230 [place] [address] PCP - General Family Medicine 03/17/24 Willard Waters [address] [place] [address] Rheumatology 05/17/24 Sumaya K[address]ler [address] 3rd [place] [address] Gastroenterology 05/17/24 Juan Sandra MD [address] [place] [address] Hematology and Oncology 05/17/24 Brigid Guy NP [address] [place] [address] Urology 05/17/24 Vicente Mooney MD [address] [place] [address] [address] [facility] [place] [address] Obstetrics and Gynecology 05/17/24 Beth Rai MD [address] [place] [address] Rangel Varela [facility] [place] [address] Neurology 05/17/24 Michell Espinoza [address] [place] [address] Drive 3rd [place] [address] Cardiology 05/17/24 Shelia Zheng Load TallierRounding Machine Operator 09/26/23 documented as of this encounter
--- OUTSIDE RECORDS SUMMARY | 2024-08-11 19:30 | XMS_ITS | Encounter Summary ---
Author Organization [facility] Address [address] [place] [address] Care Team Providers Care Printing Engineer Name Role Phone Petra Wiley Primary Care Provider Reason for Referral * Surgical (Routine) - Pending Review Specialty Diagnoses / Procedures Referred By Mehreen linares Referred To Contact General Surgery Diagnoses Subcutaneous mass of right upper extremity Subcutaneous mass of abdominal wall [facility] Physician Referral Services [address] [place] [address] [facility] [address] [place] [address] Phone: tel: fax: Referral ID Status Reason Start Date Expiration Date Visits Requested Visits Authorized [id number] Pending Review Specialty Services Required 06/26/2024 12/26/2025 6 6 Encounter Details Date Type Department Care Team (Latest Contact Info) Description 06/26/2024 Transcribe Orders [facility] Physician Referral Services [address] [place] [address] Petra Wiley 230 [place] [address] Subcutaneous mass of right upper extremity (Primary [...] Description 11/11/2024 12:00 PM EDT Office Visit [facility] [address] [place] [address] Bowling Ball Molder: Newton Rangel DO 119 [facility] [place] [address] 02/09/2025 10:15 AM EDT Office Visit [facility] Dermatology Clinic 4th Floor [address] [facility], [place] [address] Bowling Ball Molder: Hipolito Lei MD [address] [place] [address] Scheduled Referrals Name Type Priority Associated Diagnoses Order Schedule Ambulatory referral to General Surgery Outpatient Referral Routine Subcutaneous mass of right upper extremity Subcutaneous mass of abdominal wall Expected: 06/26/2024, Expires: 12/24/2024 documented as of this encounter Visit Diagnoses Diagnosis Subcutaneous mass of right upper extremity- Primary Subcutaneous mass of abdominal wall documented in this encounter Care Teams Printing Engineer Relationship Specialty Start Date End Date Petra Wiley [address] [place] [address] PCP - General Family Medicine 03/19/24 documented as of this encounter
--- OUTSIDE RECORDS SUMMARY | 2024-08-11 19:30 | XMS_ITS | Encounter Summary ---
Author Organization [employer] Address 75 [facility] 7t [place] [address] Care Team Providers Care Curtain Cutter Name Role Phone Alice Wiley Primary Care Provider [phone] Willard Waters Unavailable [phone] KesslerSeptember Unavailable Juan Sandra MD Unavailable [phone] Brigid Guy NP Unavailable Vicente Mooney MD Unavailable Beth Rai MD Unavailable Michell Espinoza Unavailable Reason for Visit * Reason Onset Date Comments Patient request 07/31/2024 Encounter Details Date Type Department Care Team (Late st Contact Info) Description 07/31/2024 Telephone [facility] MEDICINE [address] [place] [address] Alice Wiley FNP 505 [place], [place] [phone] Patient request Social History Tobacco Use Types [...] Support [facility] DIABETES/NUTRITION [address] [place] [address] Tamanna Mcintyre, ANGELINA 230 [place] [address] 08/18/2024 1:30 PM EST Office Visit [facility] ADULT DENTAL [address] [place] [address] Venkat Barreto DDS [address] [place] [address] 11/04/2024 11:15 AM EDT Office Visit [facility] MEDICINE [address] [place] [address] Alice Wiley FNP [address] [place] [address] 01/18/2025 3:00 PM EDT Office Visit [facility] ADULT DENTAL 505 [place] [address] Sanaz Nelson documented as of this encounter Visit Diagnoses Not on filedocumented in this encounter Additional Health Concerns Assessment Noted Time PHQ-9 Depression Total Score: 13 03/16/ 024 3:11 PM EDT documented as of this encounter Care Teams Curtain Cutter Relationship Specialty Start Date End Date Alice Wiley FNP [address] [place] [address] PCP - General Family Medicine 03/17/24 Willard Waters 575 [facility] [address] [place], [place] Rheumatology 05/17/24 Sumaya Kessler [address] 3rd [place] [address] Gastroenterology 05/17/24 Juan Sandra MD 575 [place] [address] Hematology and Oncology 05/17/24 Brigid Guy NP [address] [place] [address] Urology 05/17/24 Vicente Mooney MD [address] [place] [address] Obstetrics and Gynecology 05/17/24 Beth Rai MD [address] [place] [address] 140 [place] [address] Neurology 05/17/24 Michell Espinoza [address] 3rd [place] [address] Cardiology 05/17/24 Shelia Zheng Quality EngineerTooling Inspector 09/26/23 documented as of this encounter
--- OUTSIDE RECORDS SUMMARY | 2024-08-11 19:30 | XMS_ITS | Encounter Summary ---
Author Organization [employer] Address 75 [facility] 7t [place] [address] Care Team Providers Care Supervisor Cellars Name Role Phone Petra Wiley NIC Primary Care Provider [phone] Willard Waters Unavailable [phone] September Unavailable Juan Sandra MD Unavailable [phone] Brigid Guy NP Unavailable Vicente Mooney MD Unavailable Beth Rai MD Unavailable Michell Espinoza Unavailable Reason for Visit * Reason Comments Dental Pain Upper left side Encounter Details Date Type Department Care Team (Late st Contact Info) Description 07/24/2024 2:30 PM EST Office Visit [facility] ADULT DENTAL 230 [place], [place] [phone] Venkat Barreto DDS 230 [place], [place] [phone] Social History Tobacco Use Types Packs/Day Years [...] female. Time Out: No data recorded Location: [facility] Tooth: #14 Procedure: Exam Verified the above with patient, senior court office assistant, and provider. Confirmed via patient's chart, intraorally and by radiographs. Medical Sales: not applicable Chief Complaint Patient presents with [...] each 2 times daily. 1 kit 0 zepfnwvyuf-qnqhjukmxxtvr-jyhlofbp 50-325-40 MG tablet TOME ADRY TABLETA CADA OCHO HORAS CUANDO SEA NECESARIO FOR 30 DAYS cephalexin (Keflex) 500 MG capsule Take 1 capsule (500 mg) by mouth 3 times daily for 7 days. 21 capsule 0 cholecalciferol (Vitamin D-3) 25 MCG (1000 UT) tablet Take 1 tablet (25 mcg) by mouth Once per day.90 tablet 1 Creon [id number] units capsule delayed-release particles capsule TOME ADRY [...] Irreversible pulpitis Assessment/Plan: RCT, Post and Core, [place] Prescriptions: Augmentin Pt tolerated procedure well, all questions answered. Dismissed in good condition. NV: RCT #14 Painter And Paperhanger Apprentice: Whit La Dentist: Venkat Barreto DDS documented in this encounter Plan of Treatment Upcoming Encounters Date Type Department Care Team (Late st Contact Info) Description 08/14/2024 1:30 PM EST Clinical Support [facility] DIABETES/NUTRITION 230 [place] [address] Tamanna Mcintyre, ANGELINA 230 [place] [address] 08/18/2024 1:30 PM EST Office Visit [facility] ADULT DENTAL 230 [place] [address] Venkat Barreto DDS 230 [place] [address] 11/04/2024 11:15 AM EDT Office Visit [facility] MEDICINE 230 [place] [address] Petra Wiley, CELL STRIPPER FINAL [address] [place] [address] 01/18/2025 3:00 PM EDT Office Visit [facility] CHC ADULT DENTAL 505 [place] [address] Sanaz Nelson documented as of this encounter [...] documented as of this encounter Care Teams Supervisor Cellars Relationship Specialty Start Date End Date Petra Wiley FNP 230 [place] [address] PCP - General Family Medicine 03/17/24 Willard Waters [address] [place] [address] Rheumatology 05/17/24September 11 [facility] 3rd [place] [address] Gastroenterology 05/17/24 Juan Sandra MD [address] [place] [address] Hematology and Oncology 05/17/24 Brigid Guy NP [address] [facility] [address] [place] [address] Urology 05/17/24 Vicente Mooney MD [address] [place] [address] [address] [place] [address] Obstetrics and Gynecology 05/17/24 Beth Rai MD [address] [place] [address] 140 [place] [address] Neurology 05/17/24 Michell Espinoza 11 [facility] 3rd [place] [address] Cardiology 05/17/24 Shelia Zheng Gate TechnicianBlue Leather Setter 09/26/23 documented as of this encounter
--- OUTSIDE RECORDS SUMMARY | 2024-08-11 19:30 | XMS_ITS | Encounter Summary ---
Author Organization [employer] Address 75 [facility] 7t [place] [address] Care Team Providers Care Accounting Auditor Name Role Phone Petra Wiley NIC Primary Care Provider Willard Waters Unavailable [phone] KesslerSeptember Unavailable Juan Sandra MD Unavailable [phone] Brigid Guy NP Unavailable Vicente Mooney MD Unavailable Beth Rai MD Unavailable Michell Espinoza Unavailable Reason for Visit * Reason Onset Date Comments Chart Prep 07/28/2024 Encounter Details Date Type Department Care Team (Late st Contact Info) Description 07/28/2024 Telephone [facility] MED & PEDS 505 [place], [place] [phone] Shireen Eagle MA Chart Prep Social History [...] Clinical Support [facility] DIABETES/NUTRITION 230 [place] [address] Tamanna Mcintyre, ANGELINA 230 [place] [address] 08/18/2024 1:30 PM EST Office Visit [facility] ADULT DENTAL 230 [place] [address] Venkat Barreto DDS 230 [place] [address] 11/04/2024 11:15 AM EDT Office Visit [facility] MEDICINE 230 [place] [address] Petra Wiley FNP [address] [place] [address] 01/18/2025 3:00 PM EDT Office Visit [facility] CHC ADULT DENTAL [address] [place] [address] Sanaz Nelson documented as of this encounter Visit Diagnoses Not on filedocumented in this encounter Additional Health Concerns Assessment Noted Time PHQ-9 Depression Total Score: 13 03/16/ 024 3:11 PM EDT documented as of this encounter Care Teams Accounting Auditor Relationship Specialty Start Date End Date Petra Wiley FNP 230 [place] [address] PCP - General Family Medicine 03/17/24 Willard Waters [address] [place] [address] Rheumatology 05/17/24September [address] 3rd [place] [address] Gastroenterology 05/17/24 Juan Sandra MD 575 [place] [address] Hematology and Oncology 05/17/24 Brigid Guy NP [address] [place] [address] Urology 05/17/24 Vicente Mooney MD [address] [place] [address] [address] [place] [address] Obstetrics and Gynecology 05/17/24 Beth Rai MD [address] [place] [address] [place] [address] Neurology 05/17/24 Michell Espinoza 11 [facility] 3rd [place] [address] Cardiology 05/17/24 Shelia Zheng Director Patient Financial ServicesGrease Monkey 09/26/23 documented as of this encounter
--- OUTSIDE RECORDS SUMMARY | 2024-08-11 19:30 | XMS_ITS | Encounter Summary ---
Author Organization [employer] Address 75 [facility] 7t [place] [address] Care Team Providers Care Em Physician Name Role Phone Petra Wiley Primary Care Provider Willard aWters Unavailable [phone] KesslerSeptember Unavailable Juan Sandra MD Unavailable [phone] Brigid Guy NP Unavailable Vicente Mooney MD Unavailable Beth Rai MD Unavailable Michell Espinoza Unavailable Encounter Details Date Type Department Care Team (Late st Contact Info) Description 05/01/2024 Patient Outreach [facility] MEDICINE 230 [place] [address] Petra Wiley FNP 505 [place], [place] [phone] Social History Tobacco Use Types Packs/Day Years [...] Description 08/14/2024 1:30 PM EST Clinical Support [facility] DIABETES/NUTRITION [address] [place] [address] [place] [address] 08/18/2024 1:30 PM EST Office Visit [facility] ADULT DENTAL 230 [place] [address] Venkat Barreto DDS 230 [place] [address] 11/04/2024 11:15 AM EDT Office Visit [facility] MEDICINE 230 [place] [address] Petra Wiley FNP 505 [place] [address] 01/18/2025 3:00 PM EDT Office Visit [facility] CHC ADULT DENTAL [address] [place] [address] Sanaz Nelson documented as of this encounter Visit Diagnoses Not on filedocumented in this encounter Additional Health Concerns Assessment Noted Time PHQ-9 Depression Total Score: 13 03/16/ 024 3:11 PM EDT documented as of this encounter Care Teams Em Physician Relationship Specialty Start Date End Date Petra Wiley FNP 230 [place] [address] PCP - General Family Medicine 03/17/24 Willard Waters [address] [place] [address] Rheumatology 05/17/24 Sumaya Kessler [address] [place] [address] Gastroenterology 05/17/24 Juan Sandra MD [address] [place] [address] Hematology and Oncology 05/17/24 Brigid Guy NP 10 [facility] [address] [place] [address] Urology 05/17/24 Vicente Mooney MD [address] [place] [address] [address] [place] [address] Obstetrics and Gynecology 05/17/24 Beth Rai MD [address] [place] [address] 140 [place] [address] Neurology 05/17/24 Michell Espinoza [address] [place] [address] Cardiology 05/17/24 Shelia Zheng Fiberglass Roving WinderPulper 09/26/23 documented as of this encounter
--- OUTSIDE RECORDS SUMMARY | 2024-08-11 19:30 | XMS_ITS | Encounter Summary ---
Author Organization [employer] Address [address] [place] [address] 7t [place] [address] Care Team Providers Care Hair Specialist Name Role Phone Petra Wiley Primary Care Provider Willard Waters Unavailable [phone] KesslerSeptember Unavailable Juan Sandra MD Unavailable [phone] Brigid Guy NP Unavailable Vicente Mooney MD Unavailable Beth Rai MD Unavailable Michell Espinoza Unavailable Reason for Visit * Reason Comments Med Refill Encounter Details Date Type Department Care Team (Late st Contact Info) Description 07/12/2024 Refill [facility] CHC MED & PEDS 505 [place], [place] [phone] Petra Wiley FNP 505 [place], [place] [phone] Seasonal allergies Social History Tobacco Use Types [...] your housing situation today? I have candido maritnez 04/16/[address] you li [...] 08/14/2024 1:30 PM EST Clinical Support [facility] DIABETES/NUTRITION [address] [place] [address] Tamanna Mcintyre, ANGELINA 230 [place] [address] 08/18/2024 1:30 PM EST Office Visit [facility] ADULT DENTAL [address] [place] [address] Venkat Barreto DDS 230 [place] [address] 11/04/2024 11:15 AM EDT Office Visit [facility] MEDICINE [address] [place] [address] Petra Wiley FNP [address] [place] [address] 01/18/2025 3:00 PM EDT Office Visit [facility] CHC ADULT DENTAL [address] [place] [address] Sanaz Nelson documented as of this encounter Visit Diagnoses Diagnosis Seasonal allergies Allergic rhinitis, cause unspecified documented in this encounter Additional Health Concerns Assessment Noted Time PHQ-9 Depression Total Score: 13 024 3:11 PM EDT documented as of this encounter Care Teams Hair Specialist Relationship Specialty Start Date End Date Petra Wiley FNP 230 [place] [address] PCP - General Family Medicine 03/17/24 Willard Waters [address] [place] [address] Rheumatology 05/17/24September 11 [facility] 3rd [place] [address] Gastroenterology 05/17/24 Juan Sandra MD [address] [place] [address] Hematology and Oncology 05/17/24 Brigid Guy NP 10 [facility] [address] [place] [address] Urology 05/17/24 Vicente Mooney MD [address] [place] [address] [address] [place] [address] Obstetrics and Gynecology 05/17/24 Beth Rai MD [address] [place] [address] 140 [place] [address] Neurology 05/17/24 Michell Espinoza [address] [place] [address] 3rd [place] [address] Cardiology 05/17/24 Shelia Zheng Commercial DrafterTrimming Inspector 09/26/23 documented as of this encounter
--- OUTSIDE RECORDS SUMMARY | 2024-08-11 19:31 | XMS_ITS | Encounter Summary ---
Author Organization [employer] Address 75 [facility] 7t [place] [address] Care Team Providers Care Accounts Receivable Specialist Name Role Phone Jennie Murray MD Primary Care Provider Petra Wiley Primary Care Provider Willard Waters Unavailable [phone] September Unavailable Juan Sandra MD Unavailable [phone] Brigid Gyu NP Unavailable Vicente Mooney MD Unavailable Beth Rai MD Unavailable Michell Espinoza Unavailable Encounter Details Date Type Department Care Team (Late st Contact Info) Description 05/18/2022 Orders Only [facility] MEDICINE 230 [place] [address] Jennie Murray MD 505 [place], [place] [phone] Acute foot pain, unspecified laterality (Primary Dx) [...] Description 08/14/2024 1:30 PM EST Clinical Support [facility] DIABETES/NUTRITION 230 [place] [address] Tamanna Mcintyre, RD 230 [place] [address] 08/18/2024 1:30 PM EST Office Visit [facility] ADULT DENTAL 230 [place] [address] Venkat Barreto DDS 230 [place] [address] 11/04/2024 11:15 AM EDT Office Visit [facility] MEDICINE [address] [place] [address] Petra Wiley FNP 505 [place] [address] 01/18/2025 3:00 PM EDT Office Visit [facility] ADULT DENTAL 505 [place] [address] Sanaz Nelson documented as of this encounter Visit Diagnoses Diagnosis Acute foot pain, unspecified laterality- Primary documented in this encounter Care Teams Accounts Receivable Specialist Relationship Specialty Start Date End Date Jennie Murray MD [address] [place] [address] PCP - General Family Medicine 06/23/13 03/16/24 Petra Wiley FNP [address] [place] [address] PCP - General Family Medicine 03/17/24 Willard Waters [address] [place] [address] Rheumatology 05/17/24 Victoria Sumaya [address] 3rd [place] [address] Gastroenterology 05/17/24 Juan Sandra MD 575 [place] [address] Hematology and Oncology 05/17/24 Brigid Guy NP [address] [place] [address] Urology 05/17/24 Vicente Mooney MD [address] [place] [address] [address] [place] [address] Obstetrics and Gynecology 05/17/24 Beth Rai MD [address] [place] [address] [address] Neurology 05/17/24 Michell Espinoza [address] [facility] 3rd [place] [address] Cardiology 05/17/24 Shelia Zheng Cotton TierSupervisor Beet End 09/26/23 documented as of this encounter
--- OUTSIDE RECORDS SUMMARY | 2024-08-11 19:31 | XMS_ITS | Clinical Summary ---
Author Organization [employer] Address [address] [place] [address] 7t [place] [address] Care Team Providers Care Topographic Computator Name Role Phone Petra Wiley NIC Primary Care Provider Willard Waters Unavailable [phone] September Unavailable Juan Sandra MD Unavailable [phone] Brigid Guy NP Unavailable Vicente Mooney [...] MINDA VECES AL D A Active Creon 40646-109446 units capsule delayed-release particles capsule TOME ADRY [...] 25 Palpitations 05/17/2024 Overview (05/17/2024): Followed by [facility] Cards Continues on Propranolol 20mg BID (through Cards) Class 1 obesity with body ma ss index (BMI) of 32.0 to 32.9 in adult 05/17/2024 Assessment & Plan (07/29/2024 4:08 PM EST): - Cont following with enamel cracker and healthy lifestyle interventions Assessment & Plan [...] of medullary thyroid cancer or MEN 2. Fishing Tool Technician Oil Well referral offered. Recommended to decrease soda and [...] bruising easily 03/17/2024 Overview (03/17/2024): Followed by [facility] Heme/Onc - Dr. Sandra Per consult Jan [...] Bipolar Disorder , and Trauma services including [facility] Psychotherapy psychopharmacology who presents for Bipolar, Anxiety, [...] 04/17/2021 HCT 36.5 (L) 03/18/2024 Following with [facility] Heme/Onc - Dr. Turner Assessment & Plan [...] - Has consulted with Surgery team in [facility] for consideration of excision. Per their [...] - Has consulted with Surgery team in [facility] for consideration of excision. Per their consult Mar 2024, identified area has normal lobular fat, no discrete lipoma or nodules. Plan: conservative measures Abnormal uterine bleeding 12/27/2023 Overview (07/29/2024): Following with [facility] CLIENT RELATIONSHIP MANAGER - Dr. Mooney EMB performed 04/14/24. [...] Overview (05/17/2024): Lab Results Component Value Date [id number] 19.9 (L) 03/18/2024 [id number] 19 (A) 05/08/2023 - Cont Vit D [...] Overview (05/17/2024): Pap NIL/HPV Neg 11/12/2019 Dental: [facility] Dental Last PE: 06/03/23 Hep B Immune: Mar 2024 Gastroesophageal reflux disease without esophagi tis 06/03/2023 Overview (06/03/2023): ?? Followed by [facility] YASSINE Kessler APRN ?? Continues famotidine and Dexliant through GI Irritable bowel syndrome with constipation 06/03 Overview (03/17/2024): Followed up [facility] YASSINE Kessler APRN Continues Bentyl TID Continues Bisacodyl 10mg nightly Dysphagia, oropharyngeal phase 06/03/2023 Overview (06/03/2023): ?? Followed by [facility] YASSINE Kessler APRN Gastroparesis 06/03/2023 Overview (03/17/2024): Followed by [facility] GI Continues with the following medication regimen for multiple GI symptoms and conditions: Creon, famotidine, psyllium, dicyclomine, simethicone, and Dexliant Previous medications: carafate NURIA positive 06/03/2023 Overview (07/29/2024): Previous followed by [facility] Rheum - Dr. Waters May 2024: Established with [facility] Rheum - Dr. Street NURIA positive 2020: 1:160, anti dna, nicholas, ESR, CRP all wnl Disorder of sesamoid bone of foot 06/03/2023 Overview (06/03/2023): -Left lateral sesamoid stress fx identified Jul 2022 at [facility] -Plan for immobilization in short walking boot and follow up 6 weeks Assessment & Plan (06/03/2023 10:28 PM EST): Plan to request latest records from [facility] and follow up with PCP to discuss eligibility handicap placard. Fibromyalgia 08/02/2022 Overview (07/29/2024): -Previously: Lyrica 75mg nightly through [facility] Physiatry/Rheum -Lyrica rx from PCP as of [...] Description 08/04/2024 2:30 PM EST Office Visit [facility] OPTOMETRY [address] [place] [address] WaqasJohann pottsn, OD Hordeolum internum of left lower eyelid (Primary Dx); Dry eyes, bilateral; Hyperopia of right eye 08/04/2024 Travel 07/31/2024 Telephone [facility] [address] [place] [address] Petra Wiley FNP Patient request 07/29/2024 10:30 AM EST Office Visit [facility] [address] [place] [address] Petra Wiley FNP Asthma, unspecified asthma severity, [...] Travel 07/28/2024 1:30 PM EST Clinical Support [facility] DIABETES/NUTRITION [address] [place] [address] Tamanna Mcintyre, RD BMI 35.0-35.9,adult (Primary Dx) 07/28/2024 Telephone [facility] CHC MED & PEDS [address] [place], [place] [phone] Shireen Eagle MA Chart Prep 07/28/2024 Travel 07/24/2024 2:30 PM EST Office Visit [facility] ADULT DENTAL [address] [place], [place] [phone] Venkat Barreto DDS 07/24/2024 2:00 PM EST Office Visit [facility] [address] [place] [address] Sylvia Lemons MD Hordeolum externum of left lower eyelid (Primary Dx) 07/20/2024 3:00 PM EST Office Visit [facility] ADULT DENTAL 505 [facility] [place] [address] Sanaz Nelson 07/20/2024 2:00 PM EST Clinical Support [facility] DIABETES/NUTRITION [address] [place] [address] BMI 35.0-35.9,adult (Primary Dx) 07/20/2024 Travel 07/12/2024 Refill [facility] MED & PEDS [address] [place] [address] Petra Wiley FNP Seasonal allergies 07/10/2024 2:00 PM EST Nutrition [facility] DIABETES/NUTRITION [address] [place] [address] Body mass index (BMI) of 35.0 to 35.9 in adult (Primary Dx) 07/10/2024 1:00 PM EST Office Visit [facility] ADULT DENTAL [address] [place] [address] Venkat Barreto, BECKIES 07/10/2024 Travel 07/02/2024 1:30 PM EST Nutrition [facility] DIABETES/NTRN [address] [place] [address] Adult body mass index 35.0-35.9 (Primary Dx) 07/02/2024 Travel 06/30/2024 3:00 PM EST Office Visit [facility] ADULT DENTAL [address] [place] [address] Venkat Barreto, DDS 06/23/2024 Telephone [facility] MED & PEDS [address] [place] [address] Petra Wiley FNP 06/11/2024 Telephone [facility] [address] [place] [address] Petra Wiley FNP Medication Question 06/01/2024 Telephone [facility] [address] [place] [address] nutrition appt request 06/01/2024 Patient Outreach [facility] [address] [place] [address] Petra Wiley FNP Care Coordination (C3CM/CHW Dick Henry, TC #3 CM enrollment_Closed ) 05/22/[address] NUTRITION APPT REQUEST 05/20/2024 Orders Only [facility] CH[facility] MED & PEDS [address] [place] [address] Provider, MD Addie 05/18/2024 Orders Only [facility] External Provider, [facility] 05/18/2024 Telephone [facility] MED & PEDS [address] [place] [address] Petra Wiley FNP Prior Authorization; PA APPROVED 05/13/2024 11:15 AM EST Office Visit [address] [address] Petra Wiley FNP Subcutaneous mass of abdominal wall (Primary Dx); Encounter for immunization; Asthma, unspecified asthma severity, unspecified whether complicated, unspecified whether persistent; Class 2 obesity with body mass index (BMI) of 35.0 to 35.9 in adult, unspecified obesity type, unspecified whether serious comorbidity present; Fibromyalgia; Vitamin D insufficiency; Healthcare maintenance; Palpitations; Abnormal uterine bleeding 05/13/2024 Travel 05/13/[address] [address] Shireen Eagle MA Chart Prep from Last [...] Description 08/14/2024 1:30 PM EST Clinical Support [facility] DIABETES/NUTRITION [address] [place] [address] Tamanna Mcintyre, RD [address] [place] [address] 08/18/2024 1:30 PM EST Office Visit [facility] ADULT DENTAL [address] [place] [address] Venkat Barreto DDS [address] [place] [address] 11/04/2024 11:15 AM EDT Office Visit [facility] [address] [place] [address] Petra Wiley, WOOD PANEL INSPECTOR [address] [place] [address] 01/18/2025 3:00 PM EDT Office Visit [facility] ADULT DENTAL [address] [place] [address] Sanaz Nelson Health Maintenance Due Date Last [...] EST Narrative 07/07/2024 8:35 AM EST ? [facility] ?[address] ?[place] [address] ? Ultrasound Report ? Signed ? Patient: Lowell Anaya,Ambika ?MR#: [id number] ?? [id number] ? : 1985 ?Acct:[id number] ? Age/Sex: 39 / F ?ADM Date: 05/18/24 ? Loc: HO.US ? Attending Dr: Vicente Mooney MD ? Ordering Physician: Vicente Mooney MD ?? Date of Service: 05/18/24 ?? Procedure(s): US pelvic and transvaginal ?? Accession Number(s): [id number] ? cc: Petra Wiley; Vicente Mooney MD [...] DD/ 1557 ? TD/TT: 05/18/24 1620 ? Counselor Camp: ? Procedure Note Epi, Image - 07/07/2024 [place] [address] Ultrasound Report Signed Patient: Ambika McdermottMR#: [id number] : 1985Acct:[id number] Age/Sex: 39 / FADM Date: 05/18/24 Loc: HO.US Attending Dr: Vicente Mooney MD Ordering Physician: Vicente Mooney MD Date of Service: 05/18/24 Procedure(s): US pelvic and transvaginal Accession Number(s): [id number] cc: Petra Wiley; Vicente Mooney MD EXAMINATION: [...] by: Che Oswald MD 07/07/2024 08:32 AM [facility] Dictated By: Che Oswald MD Signed By: <Electronically signed by Che Oswald MD in OV> 07/07/24 0832 DD/ 1557 TD/TT: 05/18/24 1620 Counselor Camp: us [facility] External Provider IMG US PROCEDURES Edited Result - Final * Hepatitis C Viral RNA, Quantitative, Real-Time PCR (03/18/2024 2:05 PM EDT) Hepatitis C Viral Load <15 NOT DETECTED NOT DETECTED IU/mL [facility] HCV Log PCR <1.18 NOT DETECTED NOT DETECTED Log IU/mL [facility] Comment:For additional infor mation, please refer tohttp://education.GutCheck/faq/XPG88t6(This link is being provided for informational/educational purposes only.)THIS TEST WAS PERFORMED AT:[employer] [id number] DEL CID MD Blood 03/18/2024 2:05 PM EDT 03/18/2024 2:05 PM EDT Petra Wiley [facility] LAB BLOOD ORDERABLES Final Res ult Performing Organization Address City/[facility]/ZIP Co de Phone Number [facility] [address] [place] [address] [phone] * HIV-1/2 Antigen and Antibodies, Fourth Generation, with Reflexes (03/18/2024 2:05 PM EDT) Pathologist [facility] HIV AB/AG Nonreactive Nonreactive [facility] Comment:HIV-1 p24 Ag and/or HIV-1/HIV-2 Ab not detected.A test result that is nonreactive does not exclude thepossibility of exposure to or infection with HIV-1 and/orHIV-2. Nonreactive results in this assay for individualswith prior exposure to HIV-1 and/or HIV-2 may be due toantigen and antibody levels that are below the limit ofdetection of this assay.The Stere[employer]oodniXiaoying HIV Ag/Ab Combo assay result andsupplemental assay results should be interpreted inconjunction with the patient's clinical presentation,history and other laboratory results. If the results areinconsistent with clinical evidence, additional testing issuggested to confirm the result. Blood Venous blood specimen / Unknown 03/18/2024 2:05 PM EDT 03/18/2024 2:05 PM EDT Petra Wiley [facility] LAB BLOOD ORDERABLES Final Res ult Performing Organization Address City/[facility]/ZIP Co de Phone Number [facility] [address] [place] [address] [phone] * (ABNORMAL) Lipid Panel, Standard (03/18/2024 2:05 PM EDT) Triglycerides 100 <150 mg/dL [facility] Comment:Desirable Triglyceri de: less than 150 mg/dLBorderline High Triglyceride 150-199 mg/dLHigh Triglyceride: 200-499 mg/dLVery High Triglyceride: greater than or equal to 5OO mg/dL Cholesterol 200(H) <200 mg/dL [facility] Comment:Desirable Cholestero l: less than 200 mg/dLBorderline High Cholesterol: 200-239 mg/dLHigh Cholesterol: greater than 239 mg/dL LDL Cholesterol Calculated 128(H) <100 mg/dL [facility] Comment:Desirable LDL: less than 100 mg/dLNear Optimal/Above Optimal LDL: 110- 129 mg/dLBorderline High LDL: 130-159 mg/dLHigh LDL: 160-189 mg/dLVery High LDL: greater than or equal to 190 mg/dL HDL Cholesterol 52 >40 mg/dL [facility] Comment:Desirable HDL: great er than 40 mg/dL Note: This HDL assay may give artificially low results in patients with liver disease. Blood Venous blood specimen / Unknown 03/18/2024 2:05 PM EDT 03/18/2024 2:05 PM EDT Petra Wiley WOOD PANEL INSPECTOR LAB BLOOD ORDERABLES Final Res ult [facility] [address] [place] [address] [phone] * Pap Smear (11/12/2019 12:00 AM EDT) Swab Historical Provider MD LAB CYTOLOGY ORDERABLES F inal Result EXTERNAL LAB from Last 3 Months or Most Recently Relevant to Health Maintenance [place] [address] [facility] C3 DENTAL-[facility] MEDICAID STAND ADULT Care Teams Topographic Computator Relationship Specialty Start Date End Date Petra Wiley FNP [address] [facility] [place] [address] PCP - General Family Medicine 03/17/24 Willard Waters [address] [place] Rheumatology 05/17/24 Victoria Sumaya [address] 3rd [place] [address] Gastroenterology 05/17/24 Juan Sandra MD [address] [place] [address] Hematology and Oncology 05/17/24 Brigid Guy NP [address] [place] [address] Urology 05/17/24 Vicente Mooney MD [address] [place] [address] [address] [place] [address] Obstetrics and Gynecology 05/17/24 Beth Rai MD [address] [place] [address] Neurology 05/17/24 Michell Espinoza [address] 3rd [place] [address] Cardiology 05/17/24 Shelia Zheng TempererSystems Programmer 09/26/23
--- OUTSIDE RECORDS SUMMARY | 2024-08-11 19:31 | XMS_ITS | Encounter Summary ---
Author Organization [employer] Address [address] [facility] 7t [place] [address] Care Team Providers Care Residential Living Assistant Name Role Phone Jennie Murray MD Primary Care Provider [phone] Petra Wiley Primary Care Provider [phone] Willard Waters Unavailable [phone] September Unavailable Juan Sandra MD Unavailable [phone] Brigid Guy NP Unavailable Vicente Mooney MD Unavailable Beth Rai MD Unavailable [phone] Michell Espinoza Unavailable Encounter Details Date Type Department Care Team (Late st Contact Info) Description 05/25/2022 Abstract [facility] CHC ADULT DENTAL [address] [place], [place] [phone] Dental, Provider, DDS Social History Tobacco Use [...] Description 08/14/2024 1:30 PM EST Clinical Support [facility] DIABETES/NUTRITION [address] [place] [phone] Tamanna Mcintyre, RD [address] [place] [address] 08/18/2024 1:30 PM EST Office Visit [facility] ADULT DENTAL [address] [place] [address] Mary LouDavid lancasterVenkat, DDS [address] [place] [address] 11/04/2024 11:15 AM EDT Office Visit [facility] MEDICINE [address] [place] [address] Petra Wiley, CLAY PRESS OPERATOR [address] [place] [address] 01/18/2025 3:00 PM EDT Office Visit [facility] ADULT DENTAL [address] [place] [address] Sanaz Nelson documented as of this encounter [...] on filedocumented in this encounter Care Teams Residential Living Assistant Relationship Specialty Start Date End Date Jennie Murray MD [address] [place] [address] PCP - General Family Medicine 06/23/13 03/16/24 Petra Wiley FNP [address] [place] [address] PCP - General Family Medicine 03/17/24 Willard Waters [address] [place] [address] Rheumatology 05/17/24 Victoria Sumaya [address] [facility] 3rd [place] [address] Gastroenterology 05/17/24 Juan Sandra MD [address] [place] [address] Hematology and Oncology 05/17/24 Brigid Guy NP [address] [place] [address] Urology 05/17/24 Vicente Mooney MD [address] [place] [address] [address] [place] [address] Obstetrics and Gynecology 05/17/24 Beth Rai MD [address] [place] [address] [address] [place] [address] Neurology 05/17/24 Michell Espinoza [address] [facility] 3rd [place] [address] Cardiology 05/17/24 Shelia Zheng Cell PreparerClothing Busheler 09/26/23 documented as of this encounter
--- OUTSIDE RECORDS SUMMARY | 2024-08-11 19:31 | XMS_ITS | Encounter Summary ---
Author Organization [employer] Address [address] [facility] 7t [place] [address] Care Team Providers Care Secondary School Teacher Name Role Phone Petra Wiley NIC Primary Care Provider [phone] Willard Waters Unavailable [phone] KesslerSeptember Unavailable Juan Sandra MD Unavailable [phone] Brigid Guy NP Unavailable Vicente Mooney MD Unavailable Beth Rai MD Unavailable Michell Espinoza Unavailable Encounter Details Date Type Department Care Team (Late st Contact Info) Description 05/20/2024 Orders Only [facility] MED & PEDS [address] [place], [place] [phone] ProviderAddie MD Social History Tobacco Use Types [...] the past 12 months, has t he [employer], gas, oil or water company threatened to [...] Description 08/14/2024 1:30 PM EST Clinical Support [facility] DIABETES/NUTRITION [address] [place] [address] Tamanna Mcintyre, RD [address] [place] [address] 08/18/2024 1:30 PM EST Office Visit [facility] ADULT DENTAL [address] [place] [address] Venkat Barreto, DDS [address] [place] [address] 11/04/2024 11:15 AM EDT Office Visit [facility] MEDICINE [address] [place] [address] Petra Wiley FNP [address] [place] [address] 01/18/2025 3:00 PM EDT Office Visit [facility] CHC ADULT DENTAL [address] [place] [address] Sanaz Nelson documented as of this encounter [...] documented as of this encounter Care Teams Secondary School Teacher Relationship Specialty Start Date End Date Petra Wiley FNP [address] [place] [address] PCP - General Family Medicine 03/17/24 Willard Waters [address] [place] [address] Rheumatology 05/17/24 Victoria Sumaya [address] [facility] 3rd [place] [address] Gastroenterology 05/17/24 Juan Sandra MD [address] [place] [address] Hematology and Oncology 05/17/24 Brigid Guy NP [address] [place] [address] Urology 05/17/24 Vicente Mooney MD [address] [place] [address] [address] [place] [address] Obstetrics and Gynecology 05/17/24 Beth Rai MD [address] [place] [address] 140 [place] [address] Neurology 05/17/24 Michell Espinoza [address] 3rd [place] [address] Cardiology 05/17/24 Shelia Zheng Web Design SpecialistPulverizer Feeder 09/26/23 documented as of this encounter
--- OUTSIDE RECORDS SUMMARY | 2024-08-11 19:31 | XMS_ITS | Encounter Summary ---
Author Organization [employer] Address [address] [place] [address] 7t [place] [address] Care Team Providers Care Accounts Payable Bookkeeper Name Role Phone Jennie Murray MD Primary Care Provider Petra Wiley Primary Care Provider [phone] Willard Waters Unavailable [phone] September Unavailable Juan Sandra MD Unavailable [phone] Brigid Guy NP Unavailable Vicente Mooney MD Unavailable Beth Rai MD Unavailable Michell Espinoza Unavailable Encounter Details Date Type Department Care Team (Late st Contact Info) Description 07/26/2022 Orders Only [facility] MEDICINE [address] [place], [place] [phone] Nelson Medrano MD [address] [place] [phone] Chronic idiopathic constipation (Primary Dx) Social History [...] Description 08/14/2024 1:30 PM EST Clinical Support [facility] DIABETES/NUTRITION [address] [place] [address] Tamanna Mcintyre, ANGELINA [address] [place] [address] 08/18/2024 1:30 PM EST Office Visit [facility] ADULT DENTAL [address] [place] [address] Venkat Barreto DDS [address] [place] [address] 11/04/2024 11:15 AM EDT Office Visit [facility] MEDICINE [address] [place] [address] Petra Wiley FNP [address] [place] [address] 01/18/2025 3:00 PM EDT Office Visit [facility] ADULT DENTAL 505 [place] [address] Sanaz Nelson documented as of this encounter Visit Diagnoses Diagnosis Chronic idiopathic constipation- Primary Unspecified constipation documented in this encounter Additional Health Concerns Assessment Noted Time PHQ-9 Depression Total Score: 0 07/04/19 23 3:01 PM EST documented as of this encounter Care Teams Accounts Payable Bookkeeper Relationship Specialty Start Date End Date Jennie Murray MD [address] [place] [address] PCP - General Family Medicine 06/23/13 03/16/24 Petra Wiley FNP [address] [place] [address] PCP - General Family Medicine 03/17/24 Willard Waters [address] [place] [address] Rheumatology 05/17/24 Sumaya Kessler [address] [facility] 3rd [place] [address] Gastroenterology 05/17/24 Juan Sandra MD [address] [place] [address] Hematology and Oncology 05/17/24 Brigid Guy NP [address] [facility] [address] [place] [address] Urology 05/17/24 Vicente Mooney MD [address] [place] [address] [address] [place] [address] Obstetrics and Gynecology 05/17/24 Beth Rai MD [address] [place] [address] Neurology 05/17/24 Michell Espinoza [address] [address] Cardiology 05/17/24 Shelia Zheng Telemedicine PhysicianClaim Benefit Specialist 09/26/23 documented as of this encounter
== END 2024-08-11 14:37 | disposition home or self-care (01) ==
LOC: HO.LNP 14:36
PROVIDERS: PCP Student in an Organized Health Care Education/Training Program; Visit Provider Nurse Practitioner Family
DX: N39.0 Urinary tract infection, site not specified (principal); N20.0 Calculus of kidney; Z13.9 Encounter for screening, unspecified
CPT/HCPCS: 81003; 87086; 99212

== ENCOUNTER 2024-08-11 14:36 | Outpatient (AMB) | payer MEDICAID, SELFPAY ==
--- NOTE | 2024-08-11 14:46 | A.OFFVIS_ITS ---
Intake Visit Reasons: 3M PVR Intake Note: Patient presents today for follow up on: Nephrolithiasis Urology Medication:None Blood thinner: none Peeler Operator Required: No Accompanied by: Unknown Allergies Iodinated Contrast Media [IV DYE, IODINE CONTAINING CONTRAST ] Allergy (Intermediate, Verified 08/11/24 15:45) SHORTNESS OF BREATH citalopram [From CELEXA] Allergy (Unknown, Verified 08/11/24 15:45) VOMITTING duloxetine [Cymbalta] Allergy (Unknown, Verified 08/11/24 15:45) unknown morphine [MORPHINE] Allergy (Unknown, Verified 08/11/24 15:45) PALPITATIONS-PT PREFERS NOT TO TAKE tramadol [TRAMADOL] Allergy (Unknown, Verified 08/11/24 15:45) VOMITING Medication List - Last Reconciled 08/11/24 by NIC Davey- albuterol sulfate 90 mcg/actuation (Ventolin HFA) 1 inh inhalation QID azelastine 1 spray intranasal BID PRN cholecalciferol (vitamin D3) 25 mcg PO DAILY dexlansoprazole (Dexilant) 60 mg PO DAILY 30 days dicyclomine 10 mg PO TID PRN famotidine 40 mg PO BEDTIME ferrous sulfate 300 mg (5 mL) PO BID fexofenadine 180 mg PO DAILY ibuprofen 400 mg PO Q4-6H PRN dtfwoc-rxeiqwqp-gluvgfo 36,000-114,000- 180,000 unit (Creon) 2 caps PO BID loratadine (Children's Allergy Relief (loratadine)) 10 mL PO DAILY lorazepam 1 mg PO BEDTIME PRN methocarbamol 750 mg PO QID metoclopramide HCl (Reglan) 5 mg PO QIDACHS nabumetone 750 mg PO BID pregabalin 75 mg PO BID propranolol 20 mg PO BID simethicone 180 mg PO QID 30 days HPI Comments Details: Ambika is a pleasant 39-year-old female patient of Dr. Hightower who was accompanied by her son at today's office visit. She has a past medical history of vitamin-D deficiency, obesity, thyroiditis, fibroadenoma, lipoma, fibromyalgia, and NURIA positive. She presents to the office today for follow-up of her nephrolithiasis. In discussion with the patient today she reports new onset of bladder pressure and low-back pain over the last 2-3 days. In assessment of the patient today no CVA tenderness noted bilaterally. In office urinalysis results reviewed with the patient today 2+ leukocytes negative ni trates. She denies incontinence, nocturia, hematuria, dysuria, foul smelling urine, changes to urinary stream, flank pain, fever, and or chills. She discusses at length having followed up with her new aircraft painter and Wilson and how helpful this has been. She discusses being diagnosed with an auto immune disorder however continues to undergo further workup for further diagnosing. 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 She discusses also following up with a beaming machine operator and has since changed her dietary habits and has lost 11 lb intentionally over the last 3 months. She reports significant improvement in gastroenterological issue she had been experiencing with nausea and vomiting. She does continue to report ongoing generalized pain throughout her entire body. She discusses attempting to drink plenty of water daily. She otherwise offers no other issues or concerns at this time. [facility] Medical History Nausea and vomiting Diarrhea Small intestinal bacterial overgrowth (SIBO), hydrogen subtype Upper abdominal pain Jaylyn albicans infection History of thyroiditis Palpitations Left flank pain, chronic Left hip pain Oropharyngeal dysphagia Rectal bleeding Breast lump Nephrolithiasis Vulvovaginitis jaylyn albicans Vulvovaginal candidiasis Myalgia Toe swelling Hives Vulvovaginitis Fibroadenoma of both breasts Acute diarrhea Recurrent nephrolithiasis Vitamin D deficiency Obesity Fibroadenoma Lipoma Fibromyalgia NURIA positive Hx of lipoma Surgical History History of esophagogastroduodenoscopy (EGD) History of wisdom tooth extraction Family History Father Diabetes Heart attack Asthma Maternal Grandmother Diabetes HTN (hypertension) Parkinson disease Breast cancer Mother Diabetes Family history of diabetes mellitus Sister Asthma Maternal Grandfather Parkinson disease Social History Household Members: Children Housing: Condominium Are you a primary child care group leader to a significant other at home: No Do you presently have visiting nurse 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 (optical instrument assembler) Alcohol intake: never Patient Tobacco Use Status: Never used Tobacco Second Hand Smoke Exposure: Yes (Neighbors) service: No Current occupational status: disabled Sexual orientation: Straight/Heterosexual Gender identity: Female Female Reproductive History Menstrual Age of Menarche: 13 Review of Systems Const Reports as per HPI Eyes Reports no additional complaints ENT Reports no additional complaints Card Details: Reports following with Cardiology regarding history of palpitations Reports as per HPI Resp Reports no additional complaints GI Reports as per HPI Reports as per HPI Musc Reports as per HPI Neuro Reports no additional complaints Psych Reports no additional complaints Endo Reports no additional complaints Antonino/Lymph Reports no additional complaints Aller/Immun Reports no additional complaints Physical Exam Const General: cooperative, healthy appearing, comfortable, no acute distress, well developed, alert and awake Nutritional Appearance: overweight Orientation/consciousness: patient oriented x3 Limitations: no limitations HEENT Head: Yes normal to inspection, Yes normocephalic and Yes atraumatic Ears: hearing grossly normal bilaterally Eyes General: appearance normal, both eyes and all related structures Neck Neck: Yes normal visual inspection and Yes trachea midline Chest Chest palpation & inspection: normal inspection of the chest Resp Effort & Inspection: able to speak in complete sentences Cardio Rate: regular rate GI Inspection: Yes normal to inspection General: Yes no CVA tenderness Back/Spine/Pelvis Back: no CVA tenderness Skin General skin exam: no rashes or lesions noted Neuro General: patient oriented x3 Extrem General: Yes normal to inspection Psych Appearance: grossly normal and well kempt Mental Status: mental status grossly normal Speech and movement: Clear speech present Affect: normal affect Attitude: cooperative Thought process: Normal thought process present Thought content: Normal thought content present Insight: Fair insight present (Psych) Judgement: Fair judgement present (Psych) Results AMB Urinalysis, Automated UA Leukoctes 125 Gael/uL Last Edit by Augustina Che on 08/11/24 15:04 UA Nitrite Negative Last Edit by Augustina Che on 08/11/24 15:04 UA Urobilinogen 0.2 mg/dL Last Edit by Augustina Che on 08/11/24 15:04 UA Protein 30 mg/dL Last Edit by Augustina Che on 08/11/24 15:04 UA pH 6.0 Last Edit by Augustina Che on 08/11/24 15:04 UA Blood 10 Constantino/uL Last Edit by Augustina Che on 08/11/24 15:04 UA Specific [place] 1.025 Last Edit by Augustina Che on 08/11/24 15:04 UA Ketone Positive Last Edit by Augustina Che on 08/11/24 15:04 UA Bilirubin 0 mg/dL Last Edit by Augustina Che on 08/11/24 15:04 UA Glucose 0 mg/dL Last Edit by Augustina Che on 08/11/24 15:04 Results Reviewed Results Reviewed: Laboratory Last Values Urine pH (Auto) 6.0 08/11/24 14:58 Specific [place] (Auto) 1.025 08/11/24 14:58 Urine Protein (Auto) 30 mg/dL 08/11/24 14:58 Glucose (UA)(Auto) 0 mg/dL 08/11/24 14:58 Urine Ketones (Auto) Positive 08/11/24 14:58 Urine Blood (Auto) 10 Constantino/uL 08/11/24 14:58 Urine Nitrite (Auto) Negative 08/11/24 14:58 Urine Bilirubin (Auto) 0 mg/dL 08/11/24 14:58 Urine Urobilinogen (Auto) 0.2 mg/dL 08/11/24 14:58 Leukocyte Esterase (Auto) 125 Gael/uL 08/11/24 14:58 Assessment & Plan Assessment & Plan (1) Recurrent nephrolithiasis: Code(s): N20.0 - Calculus of kidney Category: Medical Plan In office urinalysis results reviewed with the patient today; as noted above; will send for urine culture; will await results for potential treatment. We discussed seeking medical treatment if symptoms worsen; we also discussed worsening symptoms. Will obtain renal ultrasound for further assessment evaluation. We discussed importance of adequate hydration relation to nephrolithiasis as well as overall health and well-being. Discussed adding 1 oz of lemon juice to water daily. Follow-up in 1-3 months with imaging; or sooner with any issues, concerns, and or questions Orders: Orders AMB Urinalysis Automated Today Z13.9 - Encounter for screening, unspecified Urine Culture Today N39.0 - Urinary tract infection, site not specified US renal BI Today N20.0 - Calculus of kidney Patient Instructions: The patient had an opportunity to ask questions regarding the treatment plan. All questions were answered. Physical exam, labs, and imaging were discussed and reviewed in detail. As well as risks, benefits, and discussion of treatment choices. No major barriers to understanding were identified. The patient expressed understanding and agreement with the above treatment plan. The patient was made aware they should contact our office by phone for worsening of their current condition, the appearance of new symptoms, or with any questions or concerns. Compliance is encouraged with any medications and follow up testing that is ordered. It is a privilege to be allowed the opportunity to participate in? your urological care.? Again, if you have any questions or concerns If you have any questions or concerns please do not hesitate to contact me. The office is [phone]. This note is constructed using voice recognition software. While every effort h as been made to ensure accuracy belt builder errors may have been included. Yours sincerely, LINUS Davey Coding Level of Care Code Est Pt Level 4 (12400) Complex EM visit Add On G2211 Diagnoses Recurrent nephrolithiasis N20.0 Time Spent (min) 35
--- OUTSIDE RECORDS SUMMARY | 2024-08-11 18:19 | XMS_ITS | Encounter Summary ---
Author Organization [facility] Address [address] [place] [address] Care Team Providers Care Bridge Leverman Name Role Phone Petra Wiley Primary Care Provider [phone] Encounter Details Date Type Department Care Team (Late Contact Info) Description 08/01/2024 Results Follow-Up [facility] Rheumatology Clinic [address] [place] [id number] Triple Valve Tester: Newton Rangel DO [address] [place] [address] Social History Tobacco Use Types Packs/Day Years [...] Encounters Date Type Department Care Team (Late Contact Info) Description 11/11/2024 12:00 PM EDT Office Visit [facility] Rheumatology Clinic [address] [place] [address] Triple Valve Tester: Newton Rangel DO [address] [place] [address] 02/09/2025 10:15 AM EDT Office Visit [facility] Dermatology Clinic 4th Floor [address] [place] [address] Triple Valve Tester: Hipolito Lei MD [address] [place] [address] documented as of this encounter Visit Diagnoses Not on filedocumented in this encounter Care Teams Bridge Leverman Relationship Specialty Start Date End Date Petra Wiley [address] [place] [address] PCP - General Family Medicine 03/19/24 documented as of this encounter
--- OUTSIDE RECORDS SUMMARY | 2024-08-11 18:19 | XMS_ITS | Encounter Summary ---
Author Organization [employer] Address [address] [facility] 7t [place] [address] Care Team Providers Care Maint Mechanic Name Role Phone Petra Wiley NIC Primary Care Provider [phone] Willard Waters Unavailable [phone] September Unavailable Juan Sandra MD Unavailable [phone] Brigid Guy NP Unavailable Vicente Mooney MD Unavailable Beth Rai MD Unavailable Michell Espinoza Unavailable Reason for Visit * Reason Comments Eye Problem Encounter Details Date Type Department Care Team (Late st Contact Info) Description 07/24/2024 2:00 PM EST Office Visit [facility] WALK-IN CENTER [address] [place], [place] [phone] Sylvia Lemons MD [address] [place], [place] [phone] Hordeolum externum of left lower eyelid (Primary [...] in this encounter Progress Notes * Sylvia Lemons MD - 07/24/2024 2:00 PM EST SUBJECTIVE: [...] times daily., Disp: 1 kit, Rfl: 0 xebrrqezwr-uxwpwnkrledkn-gcebdeto 50-325-40 MG tablet, TOME ADRY TABLETA CADA [...] day., Disp: 90 tablet, Rfl: 1 Creon 73092-798999 units capsule delayed-release particles capsule, TOME ADRY [...] per week., Disp: 2 mL, Rfl: 2 Indonesian Translation: Provided by [facility] staff member BRANDI Blackwell documented in this encounter Plan of Treatment Upcoming Encounters Date Type Department Care Team (Late st Contact Info) Description 08/14/2024 1:30 PM EST Clinical Support [facility] DIABETES/NUTRITION [address] [place] [address] [place] [address] 08/18/2024 1:30 PM EST Office Visit [facility] ADULT DENTAL [address] [place], [place] [phone] Venkat Barreto DDS [address] [place] [address] 11/04/2024 11:15 AM EDT Office Visit [facility] MEDICINE [address] [place] [address] Petra Wiley FNP [address] [place] [address] 01/18/2025 3:00 PM EDT Office Visit [facility] ADULT DENTAL [address] [place] [address] Sanaz Nelson documented as of this encounter Visit Diagnoses Diagnosis Hordeolum externum of left lower eyelid- Primary documented in this encounter Additional Health Concerns Assessment Noted Time PHQ-9 Depression Total Score: 13 024 3:11 PM EDT documented as of this encounter Care Teams Maint Mechanic Relationship Specialty Start Date End Date Petra Wiley FNP [address] [place] [address] PCP - General Family Medicine 03/17/24 Willard Waters [address] [place] [address] Rheumatology 05/17/24 Victoria Sumaya [address] [place] [address] [address] [place] [address] Gastroenterology 05/17/24 Juan Sandra MD [address] [place] [address] Hematology and Oncology 05/17/24 Brigid Guy NP [address] [facility] [address] [place] [address] Urology 05/17/24 Vicente Mooney MD [address] [place] [address] [address] [place] [address] Obstetrics and Gynecology 05/17/24 Beth Rai MD [address] [place] [address] [address] [place] [address] Neurology 05/17/24 Michell Espinoza [address] [place] [address] [address] [facility] [place] [address] Cardiology 05/17/24 Shelia Zheng Hand Alterations TailorCafe Aide 09/26/23 documented as of this encounter
--- OUTSIDE RECORDS SUMMARY | 2024-08-11 18:19 | XMS_ITS | Encounter Summary ---
Author Organization [employer] Address 75 [facility] 7t [place] [address] Care Team Providers Care Installer Interior Assemblies Name Role Phone Petra Wiley NIC Primary Care Provider Willard Waters Unavailable [phone] September Unavailable Juan Sandra MD Unavailable [phone] Brigid Guy NP Unavailable Vicente Mooney MD Unavailable Beth Rai MD Unavailable Michell Espinoza Unavailable Reason for Visit * Reason Comments Eyelid Lesion Encounter Details Date Type Department Care Team (Late st Contact Info) Description 08/04/2024 2:30 PM EST Office Visit [facility] OPTOMETRY [address] [place], [place] [phone] Waqas, Cristine, OD [address] [place], [place] [phone] Hordeolum internum of left lower eyelid (Primary Dx); Dry eyes, bilateral; Hyperopia of right eye Social History Tobacco Use Types Packs/Day Years [...] Description 08/14/2024 1:30 PM EST Clinical Support [facility] DIABETES/NUTRITION [address] [place] [address] Tamanna Mcintyre, ANGELINA [address] [place] [address] 08/18/2024 1:30 PM EST Office Visit [facility] ADULT DENTAL [address] [place] [address] Venkat Barreto DDS [address] [place] [address] 11/04/2024 11:15 AM EDT Office Visit [facility] MEDICINE [address] [place] [address] Petra Wiley FNP [address] [place] [address] 01/18/2025 3:00 PM EDT Office Visit [facility] CHC ADULT DENTAL [address] [place] [address] Sanaz Nelson documented as of this encounter Visit Diagnoses Diagnosis Hordeolum internum of left lower eyelid- Primary Dry eyes, bilateral Hyperopia of right eye documented in this encounter Additional Health Concerns Assessment Noted Time PHQ-9 Depression Total Score: 13 024 3:11 PM EDT documented as of this encounter Care Teams Installer Interior Assemblies Relationship Specialty Start Date End Date Petra Wiley FNP [address] [place] [address] PCP - General Family Medicine 03/17/24 Willard Waters [address] [place] [address] Rheumatology 05/17/24 Victoria Sumaya 11 [facility] 3rd [place] [address] Gastroenterology 05/17/24 Juan Sandra MD [address] [place] [address] Hematology and Oncology 05/17/24 Brigid Guy NP [address] [place] [address] Urology 05/17/24 Vicente Mooney MD [address] [place] [address] [address] [place] [address] Obstetrics and Gynecology 05/17/24 Beth Rai MD [address] [place] [address] 140 [place] [address] Neurology 05/17/24 Michell Espinoza [address] 3rd [place] [address] Cardiology 05/17/24 Shelia Zheng Design Cell EngineerPower Washer 09/26/23 documented as of this encounter
--- OUTSIDE RECORDS SUMMARY | 2024-08-11 18:19 | XMS_ITS | Encounter Summary ---
Author Organization [employer] Address 75 [facility] 7t [place] [address] Care Team Providers Care Bicycle Designer Name Role Phone Petra Wiley NIC Primary Care Provider [phone] Willard Waters Unavailable [phone] KesslerSeptember Unavailable Juan Sandra MD Unavailable [phone] Brigid Guy NP Unavailable Vicetne Mooney MD Unavailable Beth Rai MD Unavailable [phone] Michell Espinoza Unavailable Encounter Details Date Type Department Care Team (Latest Contact Info) Description 07/20/2024 2:00 PM EST Clinical Support [facility] DIABETES/NUTRITION [address] [place], [place] [phone] Tamanna Mcintyre, RD [address] [place], [place] [phone] BMI 35.0-35.9,adult (Primary Dx) Social History Tobacco [...] education assessment appointment with RD. Pt refused occasional babysitter. Pt said she understands RD. RD didn't [...] Description 08/14/2024 1:30 PM EST Clinical Support [facility] DIABETES/NUTRITION [address] [place] [address] [place] [address] 08/18/2024 1:30 PM EST Office Visit [facility] ADULT DENTAL [address] [place] [address] Venkat Barreto DDS 230 [place] [address] 11/04/2024 11:15 AM EDT Office Visit [facility] MEDICINE [address] [place] [address] Petra Wiley FNP 505 [place] [address] 01/18/2025 3:00 PM EDT Office Visit [facility] ADULT DENTAL 505 [place] [address] Sanaz Nelson documented as of this encounter Visit Diagnoses Diagnosis BMI 35.0-35.9,adult- Primary documented in this encounter Additional Health Concerns Assessment Noted Time PHQ-9 Depression Total Score: 13 03/16/ 024 3:11 PM EDT documented as of this encounter Care Teams Bicycle Designer Relationship Specialty Start Date End Date Petra Wiley FNP 230 [place] [address] PCP - General Family Medicine 03/17/24 Willard Waters [address] Rheumatology 05/17/[address] 3rd [place] [address] Gastroenterology 05/17/24 Juan Sandra MD 575 [place] [address] Hematology and Oncology 05/17/24 Brigid Guy NP [address] [place] [address] Urology 05/17/24 Vicente Mooney MD [address] [place] [address] Obstetrics and Gynecology 05/17/24 Beth Rai MD [address] [place] [address] [place] [address] Neurology 05/17/24 Michell Espinoza [address] 3rd [place] [address] Cardiology 05/17/24 Shelia Zheng Office Automation TechnicianDitch Tender 09/26/23 documented as of this encounter
--- OUTSIDE RECORDS SUMMARY | 2024-08-11 18:19 | XMS_ITS | Encounter Summary ---
Author Organization [employer] Address [address] [place] [address] 7t [place] [address] Care Team Providers Care Collection Systems Administrator Name Role Phone Jennie Murray MD Primary Care Provider Petra Wiley Primary Care Provider Willard Waters Unavailable [phone] September Unavailable Juan Sandra MD Unavailable [phone] Brigid Guy NP Unavailable Vicente Mooney [...] Description 08/21/2022 Telephone [facility] ADULT DENTAL 230 [place], [place] [phone] Venkat Barreto DDS 230 [place], [place] [phone] Appointment (Ambika Anaya 1985 Patient called in crying and [...] Description 08/14/2024 1:30 PM EST Clinical Support [facility] DIABETES/NUTRITION 230 [place], [place] [phone] Tamanna Mcintyre RD [address] [place], [place] [phone] 08/18/2024 1:30 PM EST Office Visit [facility] ADULT DENTAL 230 [place] [address] Venkat Barreto DDS 230 [place] [address] 11/04/2024 11:15 AM EDT Office Visit [facility] MEDICINE 230 [place] [address] Petra Wiley FNP 505 [place] [address] 01/18/2025 3:00 PM EDT Office Visit [facility] CHC ADULT DENTAL 505 [place] [address] Sanaz Nelson documented as of this encounter Visit Diagnoses Not on filedocumented in this encounter Additional Health Concerns Assessment Noted Time PHQ-9 Depression Total Score: 0 07/04/19 23 3:01 PM EST documented as of this encounter Care Teams Collection Systems Administrator Relationship Specialty Start Date End Date Jennie Murray MD 230 [place] [address] PCP - General Family Medicine 06/23/13 03/16/24 Petra Wiley FNP 230 [place] [address] PCP - General Family Medicine 03/17/24 Willard Waters [address] [place] [address] Rheumatology 05/17/24 Sumaya Kessler [address] 3rd [place] [address] Gastroenterology 05/17/24 Juan Sandra MD [address] [place] [address] Hematology and Oncology 05/17/24 Brigid Guy NP [address] [place] [address] Urology 05/17/24 Vicente Mooney MD [address] [place] [address] [address] [facility] [place] [address] Obstetrics and Gynecology 05/17/24 Beth Rai MD [address] [place] [address] Rangel Varela [facility] [place] [address] Neurology 05/17/24 Michell Espinoza [address] [place] [address] Drive 3rd [place] [address] Cardiology 05/17/24 Shelia Zheng First AssistantCalibration Checker 09/26/23 documented as of this encounter
--- OUTSIDE RECORDS SUMMARY | 2024-08-11 18:19 | XMS_ITS | Encounter Summary ---
Author Organization [employer] Address 75 [facility] 7t [place] [address] Care Team Providers Care Tanning Wheel Operator Name Role Phone Jennie Murray MD Primary Care Provider Petra Wiley Primary Care Provider Willard Waters Unavailable [phone] September Unavailable Juan Sandra MD Unavailable [phone] Brigid Guy NP Unavailable Vicente Mooney MD Unavailable Beth Rai MD Unavailable Michell Espinoza Unavailable Reason for Visit * Reason Onset Date Comments Appointment Request 12/25/2023 Encounter Details Date Type Department Care Team (Late st Contact Info) Description 12/25/2023 Telephone [facility] MEDICINE 230 [place] [address] Jennie Murrya MD 505 [place], [place] [phone] Appointment Request Social History Tobacco Use Types [...] 12/25/2023 1:07 PM EDT Tc from Patrice, resident care manager rn with [facility], calling to schedule appt for pt. Pt is awaiting transfer pt appt with Dr. Wiley in which underwriter attempted to schedule but found no availability. Please contact Patrice at [phone]. documented in this encounter Plan of Treatment Upcoming Encounters Date Type Department Care Team (Late st Contact Info) Description 08/14/2024 1:30 PM EST Clinical Support [facility] DIABETES/NUTRITION 230 [place], [place] [phone] Tamanna Mcintyre RD 230 [place] [address] 08/18/2024 1:30 PM EST Office Visit [facility] ADULT DENTAL [address] [place], [place] [phone] Venkat Barreto DDS 230 [place] [address] 11/04/2024 11:15 AM EDT Office Visit [facility] MEDICINE 230 [place] [address] Petra Wiley FNP 505 [place] [address] 01/18/2025 3:00 PM EDT Office Visit [facility] CHC ADULT DENTAL 505 [place] [address] Sanaz Nelson documented as of this encounter Visit Diagnoses Not on filedocumented in this encounter Additional Health Concerns Assessment Noted Time PHQ-9 Depression Total Score: 0 07/04/19 23 3:01 PM EST documented as of this encounter Care Teams Tanning Wheel Operator Relationship Specialty Start Date End Date Jennie Murray MD 230 [place] [address] PCP - General Family Medicine 06/23/13 03/16/24 Petra Wiley FNP 230 [place] [address] PCP - General Family Medicine 03/17/24 Willard Waters [address] [place] [address] Rheumatology 05/17/24 Victoria Sumaya [address] 3rd [place] [address] Gastroenterology 05/17/24 Juan Sandra MD 575 [place] [address] Hematology and Oncology 05/17/24 Brigid Guy NP [address] [place] [address] Urology 05/17/24 Vicente Mooney MD [address] [place] [address] [address] RADHA BUNCH [address] Obstetrics and Gynecology 05/17/24 Beth Rai MD [address] [place] [address] [place] [address] Neurology 05/17/24 Michell Espinoza [address] [place] [address] Drive 3rd Floor [place] Bunch [address] Cardiology 05/17/24 Shelia Zheng Sider MechanicTree Expert 09/26/23 documented as of this encounter
--- OUTSIDE RECORDS SUMMARY | 2024-08-11 18:19 | XMS_ITS | Encounter Summary ---
Author Organization [employer] Address 75 [facility] 7t [place] [address] Care Team Providers Care Cabinet Assembler Name Role Phone Petra Wiley NIC Primary Care Provider Willard Waters Unavailable [phone] September Unavailable Juan Sandra MD Unavailable [phone] Brigid Guy NP Unavailable Vicente Mooney [...] Description 08/14/2024 1:30 PM EST Clinical Support [facility] DIABETES/NUTRITION 230 [place] [address] [place] [address] 08/18/2024 1:30 PM EST Office Visit [facility] ADULT DENTAL 230 [place] [address] Venkat Barreto DDS 230 [place] [address] 11/04/2024 11:15 AM EDT Office Visit [facility] MEDICINE 230 [place] [address] Petra Wiley FNP 505 [place] [address] 01/18/2025 3:00 PM EDT Office Visit [facility] CHC ADULT DENTAL 505 [place] [address] Sanaz Nelson documented as of this encounter Visit Diagnoses Not on filedocumented in this encounter Additional Health Concerns Assessment Noted Time PHQ-9 Depression Total Score: 13 03/16/ 024 3:11 PM EDT documented as of this encounter Care Teams Cabinet Assembler Relationship Specialty Start Date End Date Petra Wiley FNP 230 [place] [address] PCP - General Family Medicine 03/17/24 Willard Waters [address] [place] [address] Rheumatology 05/17/24 VictoriaSeptember 11 [facility] 3[address] [place] [address] Gastroenterology 05/17/24 Juan Sandra MD [address] [place] [address] Hematology and Oncology 05/17/24 Brigid Guy NP 10 [facility] [address] [place] [address] Urology 05/17/24 Vicente Mooney MD [address] [place] [address] [address] [place] [address] Obstetrics and Gynecology 05/17/24 Beth Rai MD [address] [place] [address] 140 [place] [address] Neurology 05/17/24 Michell Espinoza 11 [facility] [address] [place] [address] Cardiology 05/17/24 Shelia Zheng Roof Panel HangerProgram Mgr 09/26/23 documented as of this encounter
--- OUTSIDE RECORDS SUMMARY | 2024-08-11 18:19 | XMS_ITS | Encounter Summary ---
Author Organization [employer] Address 75 [facility] 7t [place] [address] Care Team Providers Care Loan Originator Name Role Phone Petra Wiley NIC Primary Care Provider [phone] Willard Waters Unavailable [phone] KesslerSeptember Unavailable Juan Sandra MD Unavailable [phone] Brigid Guy NP Unavailable Vicente Mooney MD Unavailable Beth Rai MD Unavailable Michell Espinoza Unavailable Reason for Visit * Reason Onset Date Comments Chart Prep 07/28/2024 Encounter Details Date Type Department Care Team (Late st Contact Info) Description 07/28/2024 Telephone [facility] MED & PEDS [address] [place], [place] [phone] Shireen Eagle MA Chart Prep Social History [...] Description 08/14/2024 1:30 PM EST Clinical Support [facility] DIABETES/NUTRITION [address] [place] [address] Tamanna Mcintyre, ANGELINA [address] [place] [address] 08/18/2024 1:30 PM EST Office Visit [facility] ADULT DENTAL [address] [place] [address] Venkat Barreto DDS [address] [place] [address] 11/04/2024 11:15 AM EDT Office Visit [facility] MEDICINE [address] [place] [address] Petra Wiley FNP [address] [place] [address] 01/18/2025 3:00 PM EDT Office Visit [facility] CHC ADULT DENTAL [address] [place] [address] Sanaz Nelson documented as of this encounter Visit Diagnoses Not on filedocumented in this encounter Additional Health Concerns Assessment Noted Time PHQ-9 Depression Total Score: 13 03/16/ 024 3:11 PM EDT documented as of this encounter Care Teams Loan Originator Relationship Specialty Start Date End Date Petra Wiley FNP [address] [place] [address] PCP - General Family Medicine 03/17/24 Willard Waters [address] [place] [address] Rheumatology 05/17/24September [address] 3rd [place] [address] Gastroenterology 05/17/24 Juan Sandra MD 575 [place] [address] Hematology and Oncology 05/17/24 Brigid Guy NP [address] [place] [address] Urology 05/17/24 Vicente Mooney MD [address] [place] [address] [address] [place] [address] Obstetrics and Gynecology 05/17/24 Beth Rai MD [address] [place] [address] [place] [address] Neurology 05/17/24 Michell Espinoza [address] [facility] 3rd [place] [address] Cardiology 05/17/24 Shelia Zheng Aircraft Structural FitterMatch Maker 09/26/23 documented as of this encounter
--- OUTSIDE RECORDS SUMMARY | 2024-08-11 18:19 | XMS_ITS | Encounter Summary ---
Author Organization [facility] Address [address] [place] [address] Care Team Providers Care Back Line Cook Name Role Phone Petra Wiley Primary Care Provider [phone] Reason for Referral * Surgical (Routine) - Pending Review Specialty Diagnoses / Procedures Referred By Mehreen linares Referred To Contact General Surgery Diagnoses Subcutaneous mass of right upper extremity Subcutaneous mass of abdominal wall [facility] Physician Referral Services [address] [place] [address] [facility] [address] [place] [address] Phone: tel: fax: Referral ID Status Reason Start Date Expiration Date Visits Requested Visits Authorized [id number] Pending Review Specialty Services Required 06/26/2024 12/26/2025 6 6 Encounter Details Date Type Department Care Team (Latest Contact Info) Description 06/26/2024 Transcribe Orders [facility] Physician Referral Services [address] [place] [address] Petra Wiley 230 [place] [address] Subcutaneous mass of right upper extremity (Primary [...] Description 11/11/2024 12:00 PM EDT Office Visit [facility] Rheumatology Clinic [address] [place] [address] Presser Automatic: Newton Rangel DO 119 [facility] [place] [address] 02/09/2025 10:15 AM EDT Office Visit [facility] Dermatology Clinic 4th Floor [address] [facility], [place] [address] Presser Automatic: Hipolito Lei MD [address] [place] [address] Scheduled Referrals Name Type Priority Associated Diagnoses Order Schedule Ambulatory referral to General Surgery Outpatient Referral Routine Subcutaneous mass of right upper extremity Subcutaneous mass of abdominal wall Expected: 06/26/2024, Expires: 12/24/2024 documented as of this encounter Visit Diagnoses Diagnosis Subcutaneous mass of right upper extremity- Primary Subcutaneous mass of abdominal wall documented in this encounter Care Teams Back Line Cook Relationship Specialty Start Date End Date Petra Wiley [address] [place] [address] PCP - General Family Medicine 03/19/24 documented as of this encounter
--- OUTSIDE RECORDS SUMMARY | 2024-08-11 18:19 | XMS_ITS | Encounter Summary ---
Author Organization [facility] Address [address] [place] [address] Care Team Providers Care Electrical Prospector Name Role Phone Petra Wiley Primary Care Provider [phone] Reason for Referral * Consultation (Routine) - Pending Review Specialty Diagnoses / Procedures Referred By Mehreen linares Referred To Contact Dermatology Diagnoses Erythromelalgia (HCC) Newton Street DO [address] [place] [address] [place] [address] Phone: tel: fax: [facility] 2nd Floor [address] [facility], [place] [address] Phone: tel: fax: Referral ID Status Reason Start Date Expiration Date Visits Requested Visits Authorized [id number] Pending Review Specialty Services Required 07/22/2024 01/21/2026 6 6 Reason for Visit * Reason Comments Follow-up Polyarthralgia * Consultation (Routine) - Authorized Specialty Diagnoses / Procedures Referred By Mehreen linares Referred To Contact Rheumatology Diagnoses Positive NURIA (antinuclear antibody) Kristen Sparrow MD [address] [place] [address] Phone: tel: fax: [facility] [address] [place] [address] Phone: tel: fax: Referral ID Status Reason Start Date Expiration Date Visits Requested Visits Authorized [id number] Authorized Specialty Services Required 03/19/2024 09/18/2025 6 6 Encounter Details Date Type Department Care Team (Latest Contact Info) Description 07/22/2024 12:00 PM EST Office Visit [facility] [address] [place] [address] Cutter Inspector: Newton Rangel DO [address] [facility] [place] [address] Erythromelalgia (HCC) (Primary Dx); Polyarthralgia Social History [...] 11:41 AM EST documented in this encounter Patient Instructions * Attachments The following attachments cannot be sent through Care Everywhere. * Slime-Danlos Syndrome (Malagasy) documented in this encounter Progress Notes * Newton Street DO - 07/22/2024 12:15 PM EST [facility] Patient: Ambika Gleason Date of Service: 07/22/2024 Loc: [facility] Note entered by: Newton Street, Fast Food Sales Assistant Fast Food Sales Assistant Used: Yes Type of Fast Food Sales Assistant Used: Video Fast Food Sales Assistant Fast Food Sales Assistant Name/Number: CONSENT: I reviewed the use of [employer] virtual scribing technology with the patient, and they consented to allowing an audio recording of the encounter for visit documentation purposes. Reason for Visit: Chief Complaint Patient presents with Follow-up Polyarthralgia History of Present Illness The patient presents for evaluation of pain in her jaw, hands, and feet. She is accompanied by an line closer. She reports experiencing severe pain in her hands, which she attributes to dental procedures involving root canals on her molars. The pain radiates across her entire face. She has undergone 9 root canals, with the most recent one performed on 06/30/2023. A future root canal procedure is scheduled for 08/19/2023. She has been informed by a dentist that she has arthritis in her jaw, but this diagnosis has not been confirmed. She is uncertain whether her pain is due to nerve issues or arthritis. She has been managing her pain with Motrin, Tylenol, and nabumetone, which provide temporary relief. She also takes Lyrica 50 mg once or twice daily, prescribed by her primary care physician, Dr. Petra Rene. She has previously taken Lyrica 75 mg but discontinued it when her projection camera operator left the practice. She has declined pain management treatment due to a preference for injections. She has expressed interest in increasing her Lyrica dosage to 100 mg to manage her pain. She has noticed small bumps on her abdomen, thigh, and feet, which have recently appeared on her arms. These bumps are painful, and she is unsure of their cause. She has been told that they may be fatty deposits. She has been diagnosed with fibromyalgia and is currently taking Lyrica 50 mg once or twice daily. She has requested information on potential side effects of her medications. She has expressed concern about the impact of Relafen on her blood tests. She has a history of bleeding heavily during her menstrual periods. She also reports that her hands become red and swollen, accompanied by a sensation of heat and numbness, making it difficult to open and close her fingers. She experiences similar symptoms in her feet, including cramping, redness, and pain. She has observed white spots on her hands when they become warm and red. She experiences these symptoms approximately 4 to 5 times per year. She has also noticed that her hands and feet sometimes turn red while walking. She reports that her hands change color depending on the season, becoming different in the summer and winter. She experiences pain in her hands, particularly in the area connecting to the rest of the hand, and in the soles of her feet after prolonged standing or walking. She has been told that she may have hypermobility, but she is unsure. She has a history of a fall from a horse in childhood, resulting in a fracture on the left side,which was not treated in a hospital. She has been diagnosed with sesamoiditis in her left foot. She occasionally experiences a cracking sensation in her hands during exercise and mild pain when stretching her arm. She has noticed that the heels of her shoes tend to wear downwards. She experiences daily back pain, which worsens with activity, making it difficult for her to stand straight or bend. She sometimes limps while walking and experiences coccyx pain when sitting, lying down, or standing.She has a history of falls on snow and backward falls, which have resulted in persistent coccyx pain since 2012. She has a family history of a cracking sound during squats. She has a positive NURIA test but has been told that she does not have lupus. She has previously taken Plaquenil, which gave her energy and helped her, but it was discontinued. She has requested that [facility] [place]. Supplemental Information She has a fast heart rate and continues to see a doctor for gastroparesis. She has a new emergency medical services coordinator. She sometimes experiences tongue pain. MEDICATIONS Current: Motrin, Tylenol, Celebrex, Lyrica Review of systems: Negative aside from what is mentioned in HPI. Medical History: No past medical history on file. Surgical History: No past surgical history on file. Medications: Outpatient Medications Prior to Visit Medication Sig Dispense Refill albuterol (PROAIR HFA,VENTOLIN HFA) 90 mcg inhaler Inhale 2 puffs by mouth. azelastine (ASTELIN) 137 mcg (0.1 %) nasal spray 1 spray 2 times daily as needed. blood pressure test kit-large kit USE TO CHECK BLOOD PRESSURE TWICE DAILY DIRECTED budesonide-formoteroL (SYMBICORT) 80-4.5 mcg inhaler Inhale 2 puffs by mouth 2 times daily. cfuqmgamne-gmbmalgupvwfv-xqsuahuc (FIORICET) 50-325-40 mg tablet TOME ADRY TABLETA CADA OCHO HORAS CUANDO SEA NECESARIO FOR 30 DAYS cholecalciferol (VITAMIN D3) 1,000 unit tablet SMARTSI Tablet(s) By Mouth Daily Creon 24,000-76,000 -120,000 unit capsule SMARTSI Capsule(s) By Mouth 3 Times Daily cyanocobalamin 1,000 mcg tablet Take 1,000 mcg by mouth daily. cyclobenzaprine (FLEXERIL) 5 mg tablet Take 5 mg by mouth 3 times daily. Dexilant 60 mg capsule SMARTSI Capsule(s) By Mouth Daily dicyclomine (BENTYL) 10 mg capsule TOME ADRY C PSULA MINDA VECES AL D A famotidine (PEPCID) 40 mg tablet SMARTSI Tablet(s) By Mouth Every Night fexofenadine (KALLIE) 180 mg tablet SMARTSI Tablet(s) By Mouth Daily fluoride, sodium, 1.1 % paste APPLY A SMEAR OF PASTE ON THE BRUSH BRUSH THOROUGHLY TWICE DAILY. SPIT, DO NOT RINSE. LORazepam (ATIVAN) 1 mg tablet SMARTSI.5-1 Tablet(s) By Mouth Daily PRN metoclopramide (REGLAN) 5 mg tablet SMARTSI Tablet(s) By Mouth 4 Times Daily nabumetone (RELAFEN) 750 mg tablet PLEASE SEE ATTACHED FOR DETAILED DIRECTIONS ondansetron (ZOFRAN ODT) 4 mg disintegrating tablet SMARTSI Tablet(s) By Mouth 2-3 Times Daily PRN pregabalin (LYRICA) 50 mg capsule Take 50 mg by mouth 3 times a day. propranoloL (INDERAL) 20 mg tablet SMARTSI Tablet(s) By Mouth Twice Daily simethicone (MYLICON,GAS-X) 180 mg capsule SMARTSI Capsule(s) By Mouth Twice Daily umeclidinium-vilanteroL (Anoro Ellipta) 62.5-25 mcg/actuation blister with device Inhale by mouth once a day. No facility-administered medications prior to visit. Drug Allergies: Allergies Allergen Reactions Iodinated Contrast Media Anaphylaxis Morphine Dyspnea Other reaction(s): Altered Heart Rate, Trouble Breathing, chest pain Tramadol Vomiting Other reaction(s): Vomit Citalopram Vomiting Duloxetine Vomiting Other reaction(s): GI Problems Social History: Social History Tobacco Use Smoking status: Never Smokeless tobacco: Never Substance Use Topics Alcohol use: Not Currently Family History: No family history on file. Examination: BP 119/83 Pulse (!) 105 Temp 36.6 ??C (97.9 ??F) Ht 1.499 m (4' 11 ) Wt 73 kg (161 lb) BMI 32.52 kg/m?? General: no acute distress, comfortable, HEENT: normocephalic, atraumatic, sclera non-icteric Extremities: no clubbing, cyanosis, or edema. Neurologic: AO x 3, no gross focal deficits Skin: no rashes, lesions, or ecchymosis. Multiple scattered lipomas, notably around neck. Musculoskeletal: neck non-tender with preserved range of motion. Shoulders, elbows, wrists, CMCs, MCPs, PIPs, and DIPs non-tender without appreciable synovitis or restricted range of motion. Hip range of motion preserved with negative log roll. Knees non-tender with preserved range of motion and no appreciable effusion. Ankles, MTPs, and IPs non-tender without appreciable swelling. Multiple soft tissue tender points on upper and lower extremities. Labs: Lab Results Component Value Date SEDRATE 55 (H) 05/20/2024 CRP <3.0 05/20/2024 Lab Results Component Value Date RF <10 05/20/2024 No results found for: UA Imaging: Assessment and Plan: Ambika Gleason is a 39 y.o. female who presents for rheumatologic evaluation regarding polyarticular pain and positive NURIA. Assessment & Plan 1. Hand Redness: Symptoms may be indicative of erythromelalgia, characterized by intense heat, redness, and burning sensations in the hands due to inadequate blood flow. - Referral to dermatology for further evaluation and input 2. Polyarthralgia: complex symptomatology though rheumatologic evaluation has been quite reassuring. There is some evidence of underying joint hypermobility which I asked Ms. Gleason to read further about in case this provides further clues to symptoms From management perspect would need to coordinate with behavior team (? Dr. Rene) regarding Lyricadose increase Prior sed rate with fair elevation though unclear etiology, update interval and SPEP. Suspect ERS less indicative of an underlying rheumatological inflammatory process Follow-up - Follow up in 3 months Follow Up: Future Appointments Date Time Provider Department Center 11/11/2024 12:[address] DO [facility] 02/09/2025 10:15 AM Hipolito Crain MD [facility] Thank you for involving us in the care of this patient. Please do not hesitate to contact us with any questions or concerns Newton Street DO Portions of this note may have been done using voice recognition software and may contain inadvertent errors. I spent a total of 74 minutes on the date of encounter, which included: ?? Preparing to see the patient (e.g., review of test results) ?? Obtaining and/or reviewing separately obtained history ?? Performing a medically appropriate exam and/or evaluation ?? Counseling and educating the patient/family/caregiver ?? Ordering medications, tests, procedures ?? Referring and communicating with other healthcare professionals, when not separately reported documented in this encounter Plan of Treatment Upcoming Encounters Date Type Department Care Team (Late st Contact Info) Description 11/11/2024 12:00 PM EDT Office Visit [facility] [address] [place] [address] Cutter Inspector: Newton Rangel DO [address] [place] [address] [place] [address] 02/09/2025 10:15 AM EDT Office Visit [facility] [address]th [address] [place] [address], [place] [address] Cutter Inspector: Hipolito Lei MD [address] [place] [address] Scheduled Referrals Name Type Priority Associated Diagnoses Order Schedule Ambulatory referral to Dermatology Outpatient Referral Routine Erythromelalgia (HCC) Expected: 07/22/2024, Expires: 01/19/2025 documented as of this encounter Results * Due to [place] state law, this organization might not be sharing negative HIV tests. * Protein Electrophoresis w/Reflex to Immunofixation, Serum (07/22/2024 1:56 PM EST) Protein, Total 8.1 6.1 - 8.1 g/dL 07/28/2024 7:22 AM EST [employer] [facility] Albumin 4.8 3.8 - 4.8 g/dL 07/28/2024 7:22 AM EST [employer] [facility] Alpha 1 Globulin 0.3 0.2 - 0.3 g/dL 07/28/2024 7:22 AM EST [employer] [facility] Alpha 2 Globulin 0.7 0.5 - 0.9 g/dL 07/28/2024 7:22 AM EST [employer] [place] [facility] Beta 1 Globulin 0.6 0.4 - 0.6 g/dL 07/28/2024 7:22 AM EST [employer] [facility] Beta 2 Globulin 0.5 0.2 - 0.5 g/dL 07/28/2024 7:22 AM EST [employer] [facility] Gamma Globulin 1.2 0.8 - 1.7 g/dL 07/28/2024 7:22 AM EST [employer] [facility] Interpretation See Comments 07/28/2024 7:22 AM EST [employer] [facility] Comment: Normal Serum Protein Electrophoresis Pattern. No abnormal protein bands (M-protein) detected. Blood Structure of peripheral vein / Unknown Venipuncture / Unknown 07/22/2024 1:56 PM EST 07/22/2024 2:37 PM EST [facility] - 07/28/2024 7:22 AM EST [facility] Received Date: us Newton Street DO LAB BLOOD ORDERABLES Final Res ult [facility] [address], [place] [address], [place] [phone] [employer] [facility] [address] [facility] 3rd Floor, [place] [address], [place] [phone] * (ABNORMAL) Sedimentation Rate (07/22/2024 1:56 PM EST) Sed Rate 29(H) <20 mm/Hr mm/Hr 07/22/2024 2:52 PM EST [facility] Blood Structure of peripheral vein / Unknown Venipuncture / Unknown 07/22/2024 1:56 PM EST 07/22/2024 2:37 PM EST us [address] DO LAB BLOOD ORDERABLES Final Res ult [facility] [address] [place] [address], documented in this encounter Visit Diagnoses Diagnosis Erythromelalgia (HCC)- Primary Erythromelalgia Polyarthralgia Pain in joint, multiple sites documented in this encounter Care Teams Electrical Prospector Relationship Specialty Start Date End Date Petra Wiley [address] [place] [address] PCP - General Family Medicine 03/19/24 documented as of this encounter
--- OUTSIDE RECORDS SUMMARY | 2024-08-11 18:19 | XMS_ITS | Encounter Summary ---
Author Organization [employer] Address [address] [facility] 7t [place] [address] Care Team Providers Care Laborer Egg Producing Farm Name Role Phone Petra Wiley NIC Primary Care Provider Willrad Waters Unavailable [phone] September Unavailable Juan Sandra MD Unavailable [phone] Brigid Guy NP Unavailable Vicente Mooney MD Unavailable Beth Rai MD Unavailable [phone] Michell Espinoza Unavailable Reason for Visit * Reason Comments Routine Cleaning Dental Exam Encounter Details Date Type Department Care Team (Late st Contact Info) Description 07/20/2024 3:00 PM EST Office Visit [facility] ADULT DENTAL [address] [place] [address] Sanaz Nelson Social History Tobacco Use Types [...] the past 12 months, has t he [employer], gas, oil or water [employer] threatened to shut off services in your [...] Timeout Date: 07/20/24, Timeout Time: 1505 Location: [facility] Tooth: Maxilla and Mandible Procedure: X-rays and Prophylaxis Verified the above with patient, clinic assistant, and provider. Confirmed via patient's chart, intraorally and by radiographs. Analytical Strategist: Yes. Language: Maldivian. Analytical Strategist's Name: Irais. Medical Hx: Vitals: Blood pressure [...] patient including brushing technique and flossing. Recommendations: [place] two times daily, modified aragon technique, Floss daily, Electric toothbrush, Soft bristle toothbrush, [place] Tongue, Anti-sensitivity toothpaste Recall Frequency: 6 mo NV: RCT/ Exam Hygienist: Sanaz mooer RDH documented in this encounter Plan of Treatment Upcoming Encounters Date Type Department Care Team (Late st Contact Info) Description 08/14/2024 1:30 PM EST Clinical Support [facility] DIABETES/NUTRITION [address] [place], [place] [phone] Tamanna Mcintyre [address] [place] [address] 08/18/2024 1:30 PM EST Office Visit [facility] ADULT DENTAL [address] [place], [place] [phone] Venkat Barreto DDS [address] [place] [address] 11/04/2024 11:15 AM EDT Office Visit [facility] MEDICINE [address] [place] [address] Petra Wiley FNP [address] [place] [address] 01/18/2025 3:00 PM EDT Office Visit [facility] ADULT DENTAL [address] [place] [address] Sanaz Nelson Scheduled Orders Name Type Priority [...] documented as of this encounter Care Teams Laborer Egg Producing Farm Relationship Specialty Start Date End Date Petra Wiley FNP [address] [place] [address] PCP - General Family Medicine 03/17/24 Willard Waters [address] Rheumatology 05/17/24 Sumaya Kessler [address] [place] [address] 3rd [place] [address] Gastroenterology 05/17/24 Juan Sandra MD [address] [place] [address] Hematology and Oncology 05/17/24 Brigid Guy NP [address] [place] [address] Urology 05/17/24 Vicente Mooney MD [address] [place] [address] [address] [place] [address] Obstetrics and Gynecology 05/17/24 Beth Rai MD [address] [place] [address] Neurology 05/17/24 Michell Espinoza [address] [facility] 3rd [place] [address] Cardiology 05/17/24 Shelia Zheng Boilermaker Assembly And ErectionNaturopathic Doctor 09/26/23 documented as of this encounter
--- OUTSIDE RECORDS SUMMARY | 2024-08-11 18:19 | XMS_ITS | Encounter Summary ---
Author Organization [employer] Address [address] [facility] 7t [place] [address] Care Team Providers Care Machine Hand Name Role Phone Jennie Murray MD Primary Care Provider Petra Wiley Primary Care Provider [phone] Willard Waters Unavailable [phone] September Unavailable Juan Sandra MD Unavailable [phone] Brigdi Guy NP Unavailable Vicente Mooney MD Unavailable Beth Rai MD Unavailable Michell Espinoza Unavailable Encounter Details Date Type Department Care Team (Latest Contact Info) Description 09/03/2018 Abstract [facility] CONVERSIONS Dental, Provider, DDS Social History [...] Description 08/14/2024 1:30 PM EST Clinical Support [facility] DIABETES/NUTRITION [address] [place] [address] [place], [place] [phone] 08/18/2024 1:30 PM EST Office Visit [facility] ADULT DENTAL [address] [place] [address] Mary LouLeliaaRUTH ANN [address] [place] [address] 11/04/2024 11:15 AM EDT Office Visit [facility] MEDICINE [address] [place] [address] Petra Wiley FNP [address] [place] [address] 01/18/2025 3:00 PM EDT Office Visit [facility] ADULT DENTAL [address] [place] [address] Sanaz Nelson documented as of this encounter Visit Diagnoses Not on filedocumented in this encounter Care Teams Machine Hand Relationship Specialty Start Date End Date Jennie Murray MD [address] [place] [address] PCP - General Family Medicine 06/23/13 03/16/24 Petra Wiley FNP [address] [place] [address] PCP - General Family Medicine 03/17/24 Willard Waters [address] [place] [address] Rheumatology 05/17/24September [address] 3rd [place] [address] Gastroenterology 05/17/24 Juan Sandra MD [address] [place] [address] Hematology and Oncology 05/17/24 Brigid Guy NP [address] [place] [address] Urology 05/17/24 Vicente Mooney MD [address] [place] [address] [address] [place]HA BUNCH [address] Obstetrics and Gynecology 05/17/24 Beth Rai MD [address] [place] [address] [place] [address] Neurology 05/17/24 Michell Espinoza [address] 3rd [place] [address] Cardiology 05/17/24 Shelia Zheng Escort BlindSenior Research Associate 09/26/23 documented as of this encounter
--- OUTSIDE RECORDS SUMMARY | 2024-08-11 18:19 | XMS_ITS | Encounter Summary ---
Author Organization [employer] Address [address] [facility] 7t [place] [address] Care Team Providers Care Oven Operator Name Role Phone Petra Wiley NIC Primary Care Provider Willard Waters Unavailable [phone] September Unavailable Juan Sandra MD Unavailable [phone] Brigid Guy NP Unavailable Vicente Mooney MD Unavailable Beth Rai MD Unavailable Michell Espinoza Unavailable Reason for Visit * Reason Comments Dental Pain Upper left side Encounter Details Date Type Department Care Team (Late st Contact Info) Description 07/24/2024 2:30 PM EST Office Visit [facility] ADULT DENTAL [address] [place], [place] [id number] Venkat Barreto DDS [address] [place], [place] [phone] Social History Tobacco Use Types Packs/Day Years [...] Barreto DDS Billing provider: Venkat Barreto DDS Patient ID: Ambika Anaya is a 39 y.o. female. Time Out: No data recorded Location: [facility] Tooth: #14 Procedure: Exam Verified the above with patient, trading assistant, and provider. Confirmed via patient's chart, intraorally and by radiographs. Varnish Blender: not applicable Chief Complaint Patient presents with [...] each 2 times daily. 1 kit 0 ajqcxlqqdb-tpysbckaylypl-klugyrht 50-325-40 MG tablet TOME ADRY TABLETA CADA OCHO HORAS CUANDO SEA NECESARIO FOR 30 DAYS cephalexin (Keflex) 500 MG capsule Take 1 capsule (500 mg) by mouth 3 times daily for 7 days. 21 capsule 0 cholecalciferol (Vitamin D-3) 25 MCG (1000 UT) tablet Take 1 tablet (25 mcg) by mouth Once per day.90 tablet 1 Creon [id number] units capsule delayed-release particles capsule TOME ADRY [...] Irreversible pulpitis Assessment/Plan: RCT, Post and Core, [place] Prescriptions: Augmentin Pt tolerated procedure well, all questions answered. Dismissed in good condition. NV: RCT #14 Gum Cook: Whit La Dentist: Venkat Barreto DDS documented in this encounter Plan of Treatment Upcoming Encounters Date Type Department Care Team (Late st Contact Info) Description 08/14/2024 1:30 PM EST Clinical Support [facility] DIABETES/NUTRITION [address] [place] [address] Tamanna Mcintyre, ANGELINA [address] [place] [address] 08/18/2024 1:30 PM EST Office Visit [facility] ADULT DENTAL [address] [place] [address] Venkat Barreto DDS [address] [place] [address] 11/04/2024 11:15 AM EDT Office Visit [facility] MEDICINE [address] [place] [address] Petra Wiley, NAPHTHOL SOAPING MACHINE OPERATOR [address] [place] [address] 01/18/2025 3:00 PM EDT Office Visit [facility] CHC ADULT DENTAL [address] [place] [address] Sanaz Nelson documented as of this encounter [...] documented as of this encounter Care Teams Oven Operator Relationship Specialty Start Date End Date Petra Wiley FNP [address] [place] [address] PCP - General Family Medicine 03/17/24 Willard Waters [address] [place] [address] Rheumatology 05/17/24September 11 [facility] 3rd [place] [address] Gastroenterology 05/17/24 Juan Sandra MD [address] [place] [address] Hematology and Oncology 05/17/24 Brigid Guy NP [address] [facility] [address] [place] [address] Urology 05/17/24 Vicente Mooney MD [address] [place] [address] [address] [place] [address] Obstetrics and Gynecology 05/17/24 Beth Rai MD [address] [place] [address] [address] [place] [address] Neurology 05/17/24 Michell Espinoza 11 [facility] 3rd [place] [address] Cardiology 05/17/24 Shelia Zheng Foot CasterSurgical Services Asst 09/26/23 documented as of this encounter
--- OUTSIDE RECORDS SUMMARY | 2024-08-11 18:19 | XMS_ITS | Encounter Summary ---
Author Organization [employer] Address 75 [facility] 7t [place] [address] Care Team Providers Care Tour Agent Name Role Phone Petra Wiley NIC Primary Care Provider Willard Waters Unavailable [phone] September Unavailable Juan Sandra MD Unavailable [phone] Brigid Guy NP Unavailable Vicente Mooney MD Unavailable Beth Rai MD Unavailable Michell Espionza Unavailable Encounter Details Date Type Department Care Team (Latest Contact Info) Description 08/04/2024 Travel Social History Tobacco Use Types Packs/Day [...] Description 08/14/2024 1:30 PM EST Clinical Support [facility] DIABETES/NUTRITION [address] [place] [address] [place] [address] 08/18/2024 1:30 PM EST Office Visit [facility] ADULT DENTAL [address] [place] [address] Venkat Barreto DDS [address] [place] [address] 11/04/2024 11:15 AM EDT Office Visit [facility] MEDICINE [address] [place] [address] Petra Wiley FNP 505 [place] [address] 01/18/2025 3:00 PM EDT Office Visit [facility] CHC ADULT DENTAL 505 [place] [address] Sanaz Nelson documented as of this encounter Visit Diagnoses Not on filedocumented in this encounter Additional Health Concerns Assessment Noted Time PHQ-9 Depression Total Score: 13 03/16/ 024 3:11 PM EDT documented as of this encounter Care Teams Tour Agent Relationship Specialty Start Date End Date Petra Wiley FNP [address] [place] [address] PCP - General Family Medicine 03/17/24 Willard Waters [address] [place] [address] Rheumatology 05/17/24 VictoriaSeptember 11 [facility] 3rd [place] [address] Gastroenterology 05/17/24 Juan Sandra MD [address] [place] [address] Hematology and Oncology 05/17/24 Brigid Guy NP 10 [facility] [address] [place] [address] Urology 05/17/24 Vicente Mooney MD [address] [place] [address] [address] [place] [address] Obstetrics and Gynecology 05/17/24 Beth Rai MD [address] [place] [address] 140 [place] [address] Neurology 05/17/24 Michell Espinoza 11 [facility] 3rd [place] [address] Cardiology 05/17/24 Shelia Zheng Occupational Therapy SupervisorOil Lease Operator 09/26/23 documented as of this encounter
--- OUTSIDE RECORDS SUMMARY | 2024-08-11 18:19 | XMS_ITS | Encounter Summary ---
Author Organization [employer] Address [address] [place] [address] 7t [place] [address] Care Team Providers Care Manager Purchasing Name Role Phone Jennie Murray MD Primary Care Provider [phone] Petra Wiley Primary Care Provider [phone] Willard Waters Unavailable [phone] September Unavailable Juan Sandra MD Unavailable [phone] Brigid Guy NP Unavailable Vicente Mooney MD Unavailable Beth Rai MD Unavailable Michell Espinoza Unavailable Reason for Visit * Reason Onset Date Comments medication 09/19/2022 Encounter Details Date Type Department Care Team (Late st Contact Info) Description 09/19/2022 Telephone [facility] CHC ADULT DENTAL [address] [place], [place] [phone] Venkat Barreto DDS [address] [place] [address] medication Social History Tobacco Use Types Packs/Day [...] EDT Script was sent for Augementin to [facility] in [place]. Patient went in to picking belt operator script and they stated there was nothing there. Contacted [facility] and they stated that nationwide there was a shut down on their system for about 3 hours so it doesn't look like they received it. Can it be resent for patient? documented in this encounter Plan of Treatment Upcoming Encounters Date Type Department Care Team (Late st Contact Info) Description 08/14/2024 1:30 PM EST Clinical Support [facility] DIABETES/NUTRITION [address] [place] [address] Tamanna Mcintyre, ANGELINA [address] [place] [address] 08/18/2024 1:30 PM EST Office Visit [facility] ADULT DENTAL [address] [place] [address] Venkat Barreto DDS [address] [place] [address] 11/04/2024 11:15 AM EDT Office Visit [facility] MEDICINE [address] [place] [address] Petra Wiley FNP 505 [place] [address] 01/18/2025 3:00 PM EDT Office Visit [facility] CHC ADULT DENTAL [address] [place] [address] Sanaz Nelson documented as of this encounter Visit Diagnoses Not on filedocumented in this encounter Additional Health Concerns Assessment Noted Time PHQ-9 Depression Total Score: 0 07/04/19 23 3:01 PM EST documented as of this encounter Care Teams Manager Purchasing Relationship Specialty Start Date End Date Jennie Murray MD 230 [place] [address] PCP - General Family Medicine 06/23/13 03/16/24 Petra Wiley FNP [address] [place] [address] PCP - General Family Medicine 03/17/24 Willard Waters [address] [place] [address] Rheumatology 05/17/24KesslerSeptember 11 [facility] 3rd [place] [address] Gastroenterology 05/17/24 Juan Sandra MD [address] [place] [address] Hematology and Oncology 05/17/24 Brigid Guy NP [address] [facility] [address] [place] [address] Urology 05/17/24 Vicente Mooney MD [address] [place] [address] [address] [place] [address] Obstetrics and Gynecology 05/17/24 Beth Rai MD [address] [place] [address] 140 [place] [address] Neurology 05/17/24 Michell Espinoza [address] 3rd Floor [place] [address] Cardiology 05/17/24 Shelia Zheng Production TechnicianTile Erector 09/26/23 documented as of this encounter
--- OUTSIDE RECORDS SUMMARY | 2024-08-11 18:19 | XMS_ITS | Encounter Summary ---
Author Organization [employer] Address [address] [facility] 7t [place] [address] Care Team Providers Care Ham Doctor Name Role Phone Petra Wiley NIC Primary Care Provider [phone] Willard Waters Unavailable [phone] September Unavailable Juan Sandra MD Unavailable [phone] Brigid Guy NP Unavailable Vicente Mooney MD Unavailable Beth Rai MD Unavailable [phone] Michell Espinoza Unavailable Encounter Details Date Type [...] Description 08/14/2024 1:30 PM EST Clinical Support [facility] DIABETES/NUTRITION [address] [place] [address] [place] [address] 08/18/2024 1:30 PM EST Office Visit [facility] ADULT DENTAL [address] [place] [address] Venkat Barreto DDS [address] [place] [address] 11/04/2024 11:15 AM EDT Office Visit [facility] MEDICINE [address] [place] [address] Petra Wiley FNP [address] [place] [address] 01/18/2025 3:00 PM EDT Office Visit [facility] CHC ADULT DENTAL [address] [place] [address] Sanaz Nelson documented as of this encounter Visit Diagnoses Not on filedocumented in this encounter Additional Health Concerns Assessment Noted Time PHQ-9 Depression Total Score: 13 03/16/ 024 3:11 PM EDT documented as of this encounter Care Teams Ham Doctor Relationship Specialty Start Date End Date Petra Wiley FNP [address] [place] [address] PCP - General Family Medicine 03/17/24 Willard Waters [address] [place] [address] Rheumatology 05/17/24 VictoriaSeptember 11 [facility] 3rd [place] [address] Gastroenterology 05/17/24 Juan Sandra MD [address] [place] [address] Hematology and Oncology 05/17/24 Brigid Guy NP 10 [facility] [address] [place] [address] Urology 05/17/24 Vicente Mooney MD [address] [place] [address] [address] [place] [address] Obstetrics and Gynecology 05/17/24 Beth Rai MD [address] [place] [address] 140 [place] [address] Neurology 05/17/24 Michell Espinoza 11 [facility] 3rd [place] [address] Cardiology 05/17/24 Shelia Zheng Plater ProductionEkg Manager 09/26/23 documented as of this encounter
--- OUTSIDE RECORDS SUMMARY | 2024-08-11 18:19 | XMS_ITS | Encounter Summary ---
Author Organization [employer] Address 75 [facility] 7t [place] [address] Care Team Providers Care Tattoo Designer Name Role Phone Jennie Murray MD Primary Care Provider [phone] Petra Wiley Primary Care Provider Willard Waters Unavailable [phone] September Unavailable Juan Sandra MD Unavailable [phone] Brigid Guy NP Unavailable Vicente Mooney MD Unavailable Beth Rai MD Unavailable Michell Espinoza Unavailable Encounter Details Date Type Department Care Team (Latest Contact Info) Description 09/12/2020 Abstract [facility] CONVERSIONS Dental, Provider, DDS Social History [...] 1:30 PM EST Clinical Support [facility] DIABETES/NUTRITION [address] [place] [address] [place], [place] [address] 08/18/2024 1:30 PM EST Office Visit [facility] ADULT DENTAL [address] [place] [address] Mary LouVenkat DDS [address] [place] [address] 11/04/2024 11:15 AM EDT Office Visit [facility] MEDICINE [address] [place] [address] Petra Wiley FNP [address] [place] [address] 01/18/2025 3:00 PM EDT Office Visit [facility] ADULT DENTAL [address] [place] [address] Sanaz Nelson documented as of this encounter Visit Diagnoses Not on filedocumented in this encounter Care Teams Tattoo Designer Relationship Specialty Start Date End Date Jennie Murray MD [address] [place] [address] PCP - General Family Medicine 06/23/13 03/16/24 Petra Wiley FNP [address] [place] [address] PCP - General Family Medicine 03/17/24 Willard Waters [address] [place] [address] Rheumatology 05/17/24September [address] 3rd [place] [address] Gastroenterology 05/17/24 uJan Sandra MD [address] [place] [address] Hematology and Oncology 05/17/24 Brigid Guy NP [address] [place] [address] Urology 05/17/24 Vicente Mooney MD [address] [place] [address] [address] [place] [address] Obstetrics and Gynecology 05/17/24 Beth Rai MD [address] [place] [address] [address] [place] [address] Neurology 05/17/24 Michell Espinoza [address] 3rd [place] [address] Cardiology 05/17/24 Shelia Zheng [employer] ConsultantMotion Picture Photographer 09/26/23 documented as of this encounter
--- OUTSIDE RECORDS SUMMARY | 2024-08-11 18:19 | XMS_ITS | Encounter Summary ---
Author Organization [employer] Address 75 [facility] 7t [place] [address] Care Team Providers Care Office Clinician Name Role Phone Petra Wiley NIC Primary Care Provider [phone] Willard Waters Unavailable [phone] September Unavailable Juan Sandra MD Unavailable [phone] Brigid Guy NP Unavailable Vicente Mooney [...] Description 08/14/2024 1:30 PM EST Clinical Support [facility] DIABETES/NUTRITION [address] [place] [address] [place] [address] 08/18/2024 1:30 PM EST Office Visit [facility] ADULT DENTAL [address] [place] [address] Venkat Barreto DDS [address] [place] [address] 11/04/2024 11:15 AM EDT Office Visit [facility] MEDICINE [address] [place] [address] Petra Wiley FNP [address] [place] [address] 01/18/2025 3:00 PM EDT Office Visit [facility] CHC ADULT DENTAL 505 [place] [address] Sanaz Nelson documented as of this encounter Visit Diagnoses Not on filedocumented in this encounter Additional Health Concerns Assessment Noted Time PHQ-9 Depression Total Score: 13 03/16/ 024 3:11 PM EDT documented as of this encounter Care Teams Office Clinician Relationship Specialty Start Date End Date Petra Wiley FNP 230 [place] [address] PCP - General Family Medicine 03/17/24 Willard Waters [address] [place] [address] Rheumatology 05/17/24 VictoriaSeptember 11 [facility] 3rd [place] [address] Gastroenterology 05/17/24 Juan Sandra MD [address] [place] [address] Hematology and Oncology 05/17/24 Brigid Guy NP 10 [facility] [address] [place] [address] Urology 05/17/24 Vicente Mooney MD [address] [place] [address] [address] [place] [address] Obstetrics and Gynecology 05/17/24 Beth Rai MD [address] [place] [address] 140 [place] [address] Neurology 05/17/24 Michell Espinoza 11 [facility] 3rd [place] [address] Cardiology 05/17/24 Shelia Zheng Weave Room SupervisorShade Classifier 09/26/23 documented as of this encounter
--- OUTSIDE RECORDS SUMMARY | 2024-08-11 18:19 | XMS_ITS | Encounter Summary ---
Author Organization [employer] Address 75 [facility] 7t [place] [address] Care Team Providers Care Rn Surgery Name Role Phone Petra Wiley MUSIC STORE MANAGER Primary Care Provider [phone] Willard Waters Unavailable [phone] KesslerSeptember Unavailable Juan Sandra MD Unavailable [phone] Brigid Guy NP Unavailable Vicente Mooney MD Unavailable Beth Rai MD Unavailable [phone] Michell Espinoza Unavailable Encounter Details Date Type Department Care Team (Latest Contact Info) Description 07/28/2024 1:30 PM EST Clinical Support [facility] DIABETES/NUTRITION [address] [place], [place] [phone] Tamanna Mcintyre, ANGELINA [address] [place], [place] [phone] BMI 35.0-35.9,adult (Primary Dx) Social History Tobacco [...] Pt is taking a enzyme capsule from [employer] at each meal. In addition, Pt [...] Description 08/14/2024 1:30 PM EST Clinical Support [facility] DIABETES/NUTRITION [address] [place] [address] [place] [address] 08/18/2024 1:30 PM EST Office Visit [facility] ADULT DENTAL [address] [place] [address] Venkat Barreto DDS [address] [place] [address] 11/04/2024 11:15 AM EDT Office Visit [facility] MEDICINE [address] [place] [address] Petra Wiley FNP 505 [place] [address] 01/18/2025 3:00 PM EDT Office Visit [facility] ADULT DENTAL 505 [place] [address] Sanaz Nelson documented as of this encounter Visit Diagnoses Diagnosis BMI 35.0-35.9,adult- Primary documented in this encounter Additional Health Concerns Assessment Noted Time PHQ-9 Depression Total Score: 13 03/16/ 024 3:11 PM EDT documented as of this encounter Care Teams Rn Surgery Relationship Specialty Start Date End Date Petra Wiley FNP [address] [place] [address] PCP - General Family Medicine 03/17/24 Willard Waters [address] Rheumatology 05/17/[address] 3rd [place] [address] Gastroenterology 05/17/24 Juan Sandra MD 575 [place] [address] Hematology and Oncology 05/17/24 Brigid Guy NP [address] [place] [address] Urology 05/17/24 Vicente Mooney MD [address] [place] [address] Obstetrics and Gynecology 05/17/24 Beth Rai MD [address] [place] [address] [place] [address] Neurology 05/17/24 Michell Espinoza [address] 3rd [place] [address] Cardiology 05/17/24 Shelia Zheng Mobile Pet GroomerTree Scout 09/26/23 documented as of this encounter
--- OUTSIDE RECORDS SUMMARY | 2024-08-11 18:19 | XMS_ITS | Encounter Summary ---
Author Organization [employer] Address [address] [place] [address] [address] [place] [address] Care Team Providers Care Digital Media Strategist Name Role Phone Petra Wiley Primary Care Provider [phone] Willard Waters Unavailable [phone] September Unavailable Juan Sandra MD Unavailable [phone] Brigid Guy NP Unavailable Vicente Mooney MD Unavailable Beth Rai MD Unavailable [phone] Michell Espinoza Unavailable Reason for Referral * Consultation (Routine) - Authorized Specialty Diagnoses / Procedures Referred By Mehreen linares Referred To Contact Family Medicine Diagnoses Skin lesion of right arm Petra Wiley FNP [address] [place] [address] Phone: tel: fax: Referral ID Status Reason Start Date Expiration Date Visits Requested Visits Authorized [id number] Authorized Specialty Services Required 07/29/2024 07/29/2025 1 1 * Consultation (Routine) - Closed Specialty Diagnoses / Procedures Referred By Mehreen linares Referred To Contact Genetics Diagnoses Fibromyalgia NURIA positive Subcutaneous mass of abdominal wall Petra Wiley FNP [address] [place] [address] Phone: tel: fax: [address] Phone: tel: fax: Referral ID Status Reason Start Date Expiration Date V isits Requested Visits Authorized [id number] Closed Specialty Services Required 07/29/2024 07/29/2025 1 1 * Imaging (Routine) - Authorized Specialty Diagnoses / Procedures Referred By Mehreen linares Referred To Contact Radiology Diagnoses Breast pain, right Procedures BI US Breast Limited Right Petra Wiley FNP [address] [place] [address] Phone: tel: fax: [address] Phone: tel: fax: Referral ID Status Reason Start Date Expiration Date V isits Requested Visits Authorized [id number] Authorized 07/29/2024 07/29/2025 1 1 * Imaging (Routine) - Authorized Specialty Diagnoses / Procedures Referred By Mehreen linares Referred To Contact Radiology Diagnoses Breast pain, right Procedures BI Mammogram Diagnostic Tomosynthesis Right Petra Wiley FNP [address] [place] [address] Phone: tel: fax: [address] Phone: tel: fax: Referral ID Status Reason Start Date Expiration Date V isits Requested Visits Authorized [id number] Authorized 07/29/2024 07/29/2025 1 1 Encounter Details Date Type Department Care Team (Late st Contact Info) Description 07/29/2024 10:30 AM EST Office Visit [facility] MEDICINE [address] [place] [address] Petra Wiley FNP [address] [place] [address] Asthma, unspecified asthma severity, unspecified whether complicated, [...] PCP visit: 05/13/24 Weight management: Following with [facility] hypoid gear tester. Has lost approx 10 lbs over the [...] report. No bleeding or discharge. Specialists: Rheum ([facility]) - Dr. Street: hx of (+) NURIA, fibromyalgia GI ([facility])- [employer]: dysphagia, gastroparesis, GERD Heme/Onc ([facility])- Dr. Sandra: hx of PHUC, easy bruising Urology ([facility]) - [employer] Guy IT DESKTOP SUPPORT TECHNICIAN ([facility]) - Dr. Mooney Neuro ([facility]) - Dr. Rai Cardiology ([facility]) - [employer] Olga Ortho ([facility]) Psych - hx bipolar [...] bowel syndrome with constipation Overview Followed up [facility] GI - September OPERATIONS RESEARCH ENGINEER Continues Bentyl TID Continues Bisacodyl 10mg nightly Gastroparesis Overview Followed by [facility] GI Continues with the following medication regimen for multiple GI symptoms and conditions: Creon, famotidine, psyllium, dicyclomine, simethicone, and Dexliant Previous medications: carafate Genitourinary Abnormal uterine bleeding Overview Following with [facility] IT DESKTOP SUPPORT TECHNICIAN - Dr. Mooney EMB performed 04/14/24. Path: [...] Fibromyalgia Overview -Previously: Lyrica 75mg nightly through [facility] Physiatry/Rheum -Lyrica rx from [...] Hematologic NURIA positive Overview Previous followed by [facility] Rheum - Dr. Waters May 2024: Established with [facility] Rheum - Dr. Street NURIA positive 2020: 1:160, anti dna, nicholas, ESR, CRP all wnl Relevant Orders Referral to Genetics Iron deficiency anemia Overview Lab Results Component Value Date HGB 11.5 (L) 03/18/2024 HGB 11.0 (L) 04/17/2021 HCT 36.5 (L) 03/18/2024 Following with [facility] Heme/Onc - Dr. Turner [...] - Has consulted with Surgery team in [facility] for consideration of excision. Per their consult [...] in size. Concerning signs/symptoms reviewed. Referred to [facility] Derm team Relevant Orders Referral to [facility] Derm Skin Adult Follow up: 3 months chronic conditions extended, sooner PRN documented in this encounter Miscellaneous Notes * Assessment & Plan Note - NIC Rudd - 07/29/2024 4:08 PM ESTAssociated Problem(s): Class 1 obesity with body mass index (BMI) of 32.0 to 32.9 in adult - Cont following with hypoid gear tester and healthy lifestyle interventions * Assessment & [...] - Has consulted with Surgery team in [facility] for consideration of excision. Per their consult [...] Description 08/14/2024 1:30 PM EST Clinical Support [facility] DIABETES/NUTRITION [address] [place] [address] Tamanna Mcintyre, ANGELINA [address] [place] [address] 08/18/2024 1:30 PM EST Office Visit [facility] ADULT DENTAL [address] [place] [address] Venkat Barreto DDS [address] [place] [address] 11/04/2024 11:15 AM EDT Office Visit [facility] MEDIC[facility] [address] [place] [address] Petra Wiley FNP [address] [place], [place] [id number] 01/18/2025 3:00 PM EDT Office Visit [facility] ADULT DENTAL [address] [place] [address] Sanaz Nelson Scheduled Orders Name Type Priority [...] Expected: 07/29/2024 (Approximate), Expires: 07/29/2025 Referral to [facility] Derm Skin Adult Outpatient Referral Routine Skin [...] documented as of this encounter Care Teams Digital Media Strategist Relationship Specialty Start Date End Date Petra Wiley FNP [address] [place] [address] PCP - General Family Medicine 03/17/24 Willard Waters [address] [place] [address] [address] [place], [place] Rheumatology 05/17/24September 11 [facility] [address] [place] [address] Gastroenterology 05/17/24 Juan Sandra MD [address] [place] [address] Hematology and Oncology 05/17/24 Brigid Guy NP [address] [place] [address] Urology 05/17/24 Vicente Mooney MD [address] [place] [address] [address] [place] [address] Obstetrics and Gynecology 05/17/24 Beth Ria MD [address] [place] [address] [address] [place] [address] Neurology 05/17/24 Michell Espinoza [address] [place] [address] Cardiology 05/17/24 Shelia Zheng Alumnae SecretaryTiler 09/26/23 documented as of this encounter
--- OUTSIDE RECORDS SUMMARY | 2024-08-11 18:19 | XMS_ITS | Referral Summary ---
Author Organization [facility] Address [address] [place] [address] Care Team Providers Care Repatcher Name Role Phone Petra Wiley Primary Care Provider [phone] Encounters Date Type Department Care Team Description 08/06/2024 Telephone [facility] 4th Floor [address] [facility], Fourth [place] [phone] Surface Supervisor: Khadra Westbrook Telephone Intake, Staff PAC Appt Request - New 08/01/2024 Results Follow-Up [facility] [address] [place] [address] Surface Supervisor: Newton Rangel DO 07/22/2024 12:00 PM EST Office Visit [facility] [address] [place] [address] Surface Supervisor: Newton Rangel DO Erythromelalgia (HCC) (Primary Dx); Polyarthralgia 06/26/2024 Transcribe Orders [facility] Physician Referral Services [address] [place] [address] Petra Wiley Subcutaneous mass of right upper extremity (Primary Dx); Subcutaneous mass of abdominal wall 05/20/2024 2:58 PM EST - 05/20/2024 11:59 PM EST Hospital Encounter [facility] XRay [address] [place] [address] DO Polyarthralgia Discharge Disposition: Home or Self Care () 05/20/2024 1:00 PM EST Office Visit [facility] [address] [place] [address] Surface Supervisor: Newton Rangel DO Polyarthralgia (Primary Dx); Positive [...] Description 11/11/2024 12:00 PM EDT Office Visit [facility] [address] [place] [address] Surface Supervisor: Newton Rangel DO [address] [place] [address] [place] [address] 02/09/2025 10:15 AM EDT Office Visit [facility] 4th Floor [address] [facility], Fourth [place] [address] Surface Supervisor: Hipolito Lei MD [address] [place] [address] Procedures * Due to [place] state law, this organization might not be [...] 3:31 PM EST Positive NURIA (antinuclear antibody) SAJQ-[id number] I ANTIBODIES, IGG/IGA/IGM Routine 05/20/2024 3:31 PM [...] Last 3 Months Results * Due to [place] state law, this organization might not be sharing negative HIV tests. * Protein Electrophoresis w/Reflex to Immunofixation, Serum (07/22/2024 1:56 PM EST) Protein, Total 8.1 6.1 - 8.1 g/dL 07/28/2024 7:22 AM EST Attachments[facility]me [facility] Albumin 4.8 3.8 - 4.8 g/dL 07/28/2024 7:22 AM EST [facility] Alpha 1 Globulin 0.3 0.2 - 0.3 g/dL 07/28/2024 7:22 AM EST Attachments[facility]me [facility] Alpha 2 Globulin 0.7 0.5 - 0.9 g/dL 07/28/2024 7:22 AM EST Attachments[facility]me [facility] Beta 1 Globulin 0.6 0.4 - 0.6 g/dL 07/28/2024 7:22 AM EST Attachments[facility]me [facility] Beta 2 Globulin 0.5 0.2 - 0.5 g/dL 07/28/2024 7:22 AM EST Attachments[facility]me [facility] Gamma Globulin 1.2 0.8 - 1.7 g/dL 07/28/2024 7:22 AM EST Attachments[facility]me [facility] Interpretation See Comments 07/28/2024 7:22 AM EST Attachments[facility]me [facility] Comment: Normal Serum Protein Electrophoresis Pattern. No abnormal protein bands (M-protein) detected. Blood Structure of peripheral vein / Unknown Venipuncture / Unknown 07/22/2024 1:56 PM EST 07/22/2024 2:37 PM EST Narrative [facility] - 07/28/2024 7:22 AM EST [facility] Received Date:[id number] [address] DO LAB BLOOD ORDERABLES Final Res ult Performing Organization Address City/[facility] Co de Phone Number [facility] [address] [facility] 3rd Floor, [place] [address], [place] [phone] Attachments.me [facility] [address] [facility] 3rd Floor, [place] [address], [place] [phone] * (ABNORMAL) Sedimentation Rate (07/22/2024 1:56 PM EST) Only the most recent of2 resultswithin the time period is included. Sed Rate 29(H) <20 mm/Hr mm/Hr 07/22/2024 2:52 PM EST [facility] Blood Structure of peripheral vein / Unknown Venipuncture / Unknown 07/22/2024 1:56 PM EST 07/22/2024 2:[address] DO LAB BLOOD ORDERABLES Final Res ult Performing Organization Address [facility]/ZIP Co de Phone Number [facility] [address] [place] [address], * (ABNORMAL) NURIA, Titer and Pattern (05/20/2024 3:31 PM EST) NURIA Titer 1 1:640(H) titer 05/22/2024 12:31 PM EST [facility] Comment: ?Reference Range ?<1:40 ?Negative ?1:40-1:80 ?Low Antibody Level ?>1:80 ?Elevated Antibody Level NURIA Pattern 1 Nuclear, Dense Fine Speckled( A) 05/22/2024 12:31 PM EST [facility] Comment: Dense fine speckled pattern is seen in normal individuals and rarely associated with systemic lupus erythematosis (SLE), Sjogren's syndrome and systemic sclerosis. AC-2: Dense Fine Speckled International Consensus on NURIA Patterns (https://doi.org/10.1515/hysb-4350-5614) Blood Structure of peripheral vein / Unknown Venipuncture / Unknown 05/20/2024 3:31 PM EST 05/20/2024 3:45 PM EST [facility] 05/22/2024 12:31 PM EST [facility] Received Date: [address] DO LAB BLOOD ORDERABLES Final Res ult [facility] [address] [facility] 3rd Floor, [place] [address], [facility] [address] [facility] 3rd Floor, [place] [address], * Cardiolipin Antibodies, IgG/IgM/IgA (05/20/2024 3:31 PM EST) Cardiolipin Ab IgA <2.0 APL-U/mL 2023 2:07 PM EST [facility] Comment: Value ?Interpretation ----- ? < 20.0 ? Antibody not detected > or = 20.0 ?Antibody detected Cardiolipin Ab IgG <2.0 GPL-U/mL 2023 2:07 PM EST [facility] Comment: Value ?Interpretation ----- ? < 20.0 ? Antibody not detected > or = 20.0 ?Antibody detected Cardiolipin Ab IgM <2.0 MPL-U/mL 2023 2:07 PM EST [facility] Comment: Value ?Interpretation ----- ? < 20.0 [...] aging. For additional information, please refer to http://education.Tuniu/faq/MJK902 (This link is being provided for informational/ educational purposes only.) Blood Structure of peripheral vein / Unknown Venipuncture / Unknown 05/20/2024 3:31 PM EST 05/20/2024 3:45 PM EST Narrative [facility] - 05/21/2024 2:07 PM EST [facility] Received Date: us [address] DO LAB BLOOD ORDERABLES Final Res ult [facility] [address] [facility] 3rd Floor, [place] [address], [place] [phone] [facility] [address] [facility] 3rd Floor, [place] [address], [place] [phone] * Complement C3c and C4c (05/20/2024 3:31 PM EST) Complement Component C3C 180 83 - 193 mg/dL 05/21/2024 1:53 AM EST [facility]ments[facility] Complement Component C4C 32 15 - 57 mg/dL 05/21/2024 1:53 AM EST [facility] Blood Structure of peripheral vein / Unknown Venipuncture / Unknown 05/20/2024 3:31 PM EST 05/20/2024 3:45 PM EST Narrative [facility] - 05/21/2024 1:53 AM EST [facility] Received Date: us [address] DO LAB BLOOD ORDERABLES Final Res ult [facility] [address] [facility] 3rd Floor, [place] [address], Attachments[facility]me [facility] [address] [facility] 3rd Floor, [place] [address], * Lupus Anticoagulation Evaluation w/Reflex (05/20/2024 3:31 PM EST) Lupus Anticoagulant See Comments 05/22/2024 7:11 AM EST [facility] ([facility]I) Comment: A Lupus Anticoagulant is not detected. Reference Range: ??Not Detected For additional information, please refer to http://education.Tuniu/faq/KMC85p9 (This link is being provided for informational/ educational purposes only.) ? This interpretation is based on the following test results. Ptt-LA Screen 34 <=40 sec 05/22/2024 7:11 AM EST [facility] (ALEJANDRE) dRVVT Screen 31 <=45 sec 05/22/2024 7:11 AM EST [facility] ([facility]) Blood Structure of peripheral vein / Unknown Venipuncture / Unknown 05/20/2024 3:31 PM EST 05/20/2024 3:45 PM EST Narrative [facility] (ALE[facility]RE) - 05/22/2024 7:11 AM EST [facility] Received Date: [address] DO LAB BLOOD ORDERABLES Final Res ult SLIM SANTIAGO) [address] [place] [address], [place] * Cyclic citrul peptide antibody, IgG (05/20/2024 3:31 PM EST) Cyclic Citrullinated Peptide (CCP) Ab (IgG) <16 UNITS 05/21/2024 10:26 PM EST [facility] Comment: Reference Range Negative: ?<20 Weak Positive: ? 20-39 Moderate Positive: ?? 40-59 Strong Positive: ? >59 Blood Structure of peripheral vein / Unknown Venipuncture / Unknown 05/20/2024 3:31 PM EST 05/20/2024 3:45 PM EST Narrative [facility] - 05/21/2024 10:26 PM EST [facility] Received Date: Newton Yenifer DO LAB BLOOD ORDERABLES Final Res ult [facility] [address] [facility] 3rd Floor, [place] [address], [place] [phone] Attachments.me [facility] [address] [facility] 3rd Floor, [place] [address], [place] [phone] * (ABNORMAL) NURIA Screen, IFA, w/Reflex to Titer & Pattern (05/20/2024 3:31 PM EST) NURIA Screen, IFA POSITIVE (A) NEGATIVE 05/22/2024 12:31 PM EST [facility] Comment: NURIA IFA is a first line screen for detecting the presence of up to approximately 150 autoantibodies in various autoimmune diseases. A positive NURIA IFA result is suggestive of autoimmune disease and reflexes to titer and pattern. Further laboratory testing may be considered if clinically indicated. For additional information, please refer to http://education.Puralytics/faq/WDN342 (This link is being provided for informational/ educational purposes only.) ?? Blood Structure of peripheral vein / Unknown Venipuncture / Unknown 05/20/2024 3:31 PM EST 05/20/2024 3:45 PM EST Narrative [facility] - 05/22/2024 12:31 PM EST [facility] Received Date: [address] DO LAB BLOOD ORDERABLES Final Res ult [facility] [address] [facility] 3rd Floor, [place] [address], Attachments.me [facility] [address] [facility] 3rd Floor, [place] [address], * Worv-7-Ydaiievlsbtx I Antibodies, IgG/IgA/IgM (05/20/2024 3:31 PM EST) Beta2-Glycoprotein I (IgG) <2.0 <20.0 U/mL 05/25/2024 8:22 PM EST [facility] ([facility]) Comment: Value ?Interpretation ----- ? < 20.0 ? Antibody not detected > or = 20.0 ?Antibody detected Beta2-Glycoprotein I (IgM) <2.0 <20.0 U/mL 05/25/2024 8:22 PM EST [facility] (PILI) Comment: Value ?Interpretation ----- ? < 20.0 ? Antibody not detected > or = 20.0 ?Antibody detected Beta2-Glycoprotein I (IgA) <2.0 <20.0 U/mL 05/25/2024 8:22 PM EST [facility] (PILI) Comment: Value ?Interpretation ----- ? < [...] aging. For additional information, please refer to http://education.Tuniu/faq/CEV881 (This link is being provided for informational/ educational purposes only.) ? Blood Structure of peripheral vein / Unknown Venipuncture / Unknown 05/20/2024 3:31 PM EST 05/20/2024 3:45 PM EST Narrative [facility] - 05/25/2024 8:22 PM EST [facility] Received Date: us [address] DO LAB BLOOD ORDERABLES Final Res ult SLIM WINTER [address] [place] [address] 3rd Floor, [place] [address], [facility]) [address] [place], [place] , [place] * Rheumatoid factor (05/20/2024 3:31 PM EST) Rheumatoid Factor <10 <14 IU/mL 05/20/2024 9:54 PM EST Attachments[facility]me [facility] Blood Structure of peripheral vein / Unknown Venipuncture / Unknown 05/20/2024 3:31 PM EST 05/20/2024 3:45 PM EST Narrative [facility] - 05/20/2024 9:54 PM EST [facility] Received Date: Newton [employer] LAB BLOOD ORDERABLES Final Res ult Performing Organization Address City/[facility]/ZIP Co de Phone Number [facility] [address] [facility] 3rd Floor, [place] [address], [place] [phone] Attachments.me [facility] [address] [facility] 3rd Floor, [place] [address], [place] [phone] * C-reactive protein (05/20/2024 3:31 PM EST) Pathologist [facility] C Reactive Protein <3.0 <=9.9 mg/L 05/20/2024 4:11 PM EST [facility] Blood Structure of peripheral vein / Unknown Venipuncture / Unknown 05/20/2024 3:31 PM EST 05/20/2024 3:45 PM EST [employer] LAB BLOOD ORDERABLES Final Res ult Performing Organization Address City/[facility]/ZIP Co de Phone Number [facility] [address] [place] [address], * NURIA Specific Antibody w/Reflex to Silver (05/20/2024 3:31 PM EST) Pathologist [facility] NURIA Screen, Immunoassay NEGATIVE NEGATIVE 05/21/2024 2:12 PM EST Attachments[facility]me [facility] Comment: A negative NURIA Multiplex indicates the absence of detectable antibodies to component analytes consisting of double stranded DNA (dsDNA), chromatin, ribonucleoprotein (BOARDING ROOM FIXER), Jamison/BOARDING ROOM FIXER (Sm/BOARDING ROOM FIXER), Jamison (Sm), SS-A, SS-B, Laura-1, centromere B, Scl-70 and ribosomal P. A negative result should be interpreted in the context of the clinical and laboratory findings and does not rule out autoimmune disease characterized by other autoantibody specificities such as rheumatoid arthritis, autoimmune hepatitis, primary biliary cirrhosis, autoimmune thyroiditis, Yancey's disease, pernicious anemia, autoimmune neuropathies, vasculitis, celiac disease, and bullous disease. For additional information, please refer to http://education.Puralytics/faq/IOE185 (This link is being provided for informational/ educational purposes only.) ?? Blood Structure of peripheral vein / Unknown Venipuncture / Unknown 05/20/2024 3:31 PM EST 05/20/2024 3:45 PM EST Narrative [facility] - 05/21/2024 2:12 PM EST [facility] Received Date: [facility] DO LAB BLOOD ORDERABLES Final Res ult Performing Organization Address City/[facility]/ZIP Co de Phone Number [facility] [address] [facility] 3rd Floor, [place] [address], [place] [phone] Attachments.me [facility] [address] [facility] [address] [facility], [place] [address], [place] [phone] * CK (05/20/2024 3:31 PM EST) CK 55 38 - 206 U/L 05/20/2024 4:11 PM EST [facility] Blood Structure of peripheral vein / Unknown Venipuncture / Unknown 05/20/2024 3:31 PM EST 05/20/2024 3:45 PM EST [facility] DO LAB BLOOD ORDERABLES Final Res ult [facility] [address] [place] [address], [place] * XR Foot 3+ vw Right [...] obtain the completed interpretation. ? Workstation ID: [id number] Narrative 05/20/2024 3:47 PM EST COMPARISON: ??There [...] normal limits. No spondyloarthropathy Resulting Agency Comment [id number] Procedure Note Saritha Fabian MD - 05/20/2024 [...] possible to obtain thecompleted interpretation. Workstation ID: [id number] [address] DO IMG XR PROCEDURES [...] obtain the completed interpretation. ? Workstation ID: [id number] Narrative 05/20/2024 3:47 PM EST COMPARISON: ??There [...] normal limits. No spondyloarthropathy Resulting Agency Comment [id number] Procedure Note Saritha Fabian MD - 05/20/2024 [...] possible to obtain thecompleted interpretation. Workstation ID: [id number] [address] DO IMG XR PROCEDURES [...] obtain the completed interpretation. ? Workstation ID: [id number] Narrative 05/20/2024 3:47 PM EST COMPARISON: ??There [...] normal limits. No spondyloarthropathy Resulting Agency Comment [id number] Procedure Note Saritha Fabian MD - 05/20/2024 [...] possible to obtain thecompleted interpretation. Workstation ID: [id number] us Newton Yenifer DO IMG XR PROCEDURES Final Result * [...] obtain the completed interpretation. ? Workstation ID: [id number] Narrative 05/20/2024 3:47 PM EST COMPARISON: ??There [...] normal limits. No spondyloarthropathy Resulting Agency Comment [id number] Procedure Note Saritha Fabian MD - 05/20/2024 [...] possible to obtain thecompleted interpretation. Workstation ID: [id number] [address] DO IMG XR PROCEDURES [...] obtain the completed interpretation. ? Workstation ID: [id number] Narrative 05/20/2024 3:47 PM EST COMPARISON: ??There [...] normal limits. No spondyloarthropathy Resulting Agency Comment [id number] Procedure Note Saritha Fabian MD - 05/20/2024 [...] possible to obtain thecompleted interpretation. Workstation ID: [id number] [address] DO IMG XR PROCEDURES Final Result from Last 3 [place] [address] [facility] Care Teams Repatcher Relationship Specialty Start Date End Date Petra Wiley [address] [place] [address] PCP - General Family Medicine 03/19/24
--- OUTSIDE RECORDS SUMMARY | 2024-08-11 18:19 | XMS_ITS | Encounter Summary ---
Author Organization [employer] Address [address] [facility] 7t [place] [address] Care Team Providers Care Signal Engineer Name Role Phone Petra Wiley Primary Care Provider Willard Waters Unavailable [phone] KesslerSeptember Unavailable Juan Sandra MD Unavailable [phone] Brigid Guy NP Unavailable Vicente Mooney MD Unavailable Beth Rai MD Unavailable Michell Espinoza Unavailable Encounter Details Date Type Department Care Team (Late st Contact Info) Description 05/01/2024 Patient Outreach [facility] MEDICINE [address] [place] [address] Petra Wiley FNP [address] [place], [place] [phone] Social History Tobacco Use Types Packs/Day Years [...] Description 08/14/2024 1:30 PM EST Clinical Support [facility] DIABETES/NUTRITION [address] [place] [address] [place] [address] 08/18/2024 1:30 PM EST Office Visit [facility] ADULT DENTAL [address] [place] [address] Venkat Barreto DDS [address] [place] [address] 11/04/2024 11:15 AM EDT Office Visit [facility] MEDICINE [address] [place] [address] Petra Wiley FNP [address] [place] [address] 01/18/2025 3:00 PM EDT Office Visit [facility] CHC ADULT DENTAL [address] [place] [address] Sanaz Nelson documented as of this encounter Visit Diagnoses Not on filedocumented in this encounter Additional Health Concerns Assessment Noted Time PHQ-9 Depression Total Score: 13 03/16/ 024 3:11 PM EDT documented as of this encounter Care Teams Signal Engineer Relationship Specialty Start Date End Date Petra Wiley FNP [address] [place] [address] PCP - General Family Medicine 03/17/24 Willard Waters [address] [place] [address] Rheumatology 05/17/24 Sumaya Kessler [address] [place] [address] Gastroenterology 05/17/24 Juan Sandra MD [address] [place] [address] Hematology and Oncology 05/17/24 Brigid Guy NP [address] [facility] [address] [place] [address] Urology 05/17/24 Vicente Mooney MD [address] [place] [address] [address] [place] [address] Obstetrics and Gynecology 05/17/24 Beth Rai MD [address] [place] [address] [address] [place] [address] Neurology 05/17/24 Michell Espinoza [address] [place] [address] Cardiology 05/17/24 Shelia Zheng Tech Ed/Woodshop TeacherTruck Bench Mechanic 09/26/23 documented as of this encounter
--- OUTSIDE RECORDS SUMMARY | 2024-08-11 18:19 | XMS_ITS | Encounter Summary ---
Author Organization [facility] Address [address] [place] [address] Care Team Providers Care Justice Court Judge Name Role Phone Petra Wiley Primary Care Provider [phone] Reason for Visit * Reason Onset Date Comments PAC Appt Request - New 08/06/2024 Encounter Details Date Type Department Care Team (Late st Contact Info) Description 08/06/2024 Telephone [facility] Dermatology Clinic 4th [address] [place] [address], [place] [address] Private Duty Aide: Khadra Westbrook Telephone Intake, Staff PAC Appt Request - New Social History Tobacco Use Types Packs/Day Years [...] on file documented as of this encounter Miscellaneous Notes * Telephone Encounter - Chitra Giraldo - 08/06/2024 2:23 PM EST Soonest appt scheduled. Patient added to wait list. Will reach out to patient if there is a sooner appointment. * Telephone Encounter - Vero Lex - 08/06/2024 2:14 PM EST Pac unable to schedule pt for Erythromelalgia. DX is not listed in the dt. The pt states her hands turn red and hot. Pt would also like to be evaluated for hair loss. She would like to schedule in the closest location to [place]. Please reach out with a antique finisher. Thank you! documented in this encounter Plan of Treatment Upcoming Encounters Date Type Department Care Team (Late st Contact Info) Description 11/11/2024 12:00 PM EDT Office Visit [facility] Rheumatology Clinic [address] [place] [address] Private Duty Aide: Newton Rangel DO [address] [facility] [place] [address] 02/09/2025 10:15 AM EDT Office Visit [facility] Dermatology Clinic 4th Floor [address] [facility], [place] [address] Private Duty Aide: Hipolito Lei MD [address] [place] [address] documented as of this encounter Visit Diagnoses Not on filedocumented in this encounter Care Teams Justice Court Judge Relationship Specialty Start Date End Date Petra Wiley [address] [place] [address] PCP - General Family Medicine 03/19/24 documented as of this encounter
--- OUTSIDE RECORDS SUMMARY | 2024-08-11 18:19 | XMS_ITS | Clinical Summary ---
Author Organization [facility] Address [address] [place] [address] Care Team Providers Care Actuarial Trainee Name Role Phone Petra Wiley Primary Care Provider [phone] Allergies Active Allergy Reactions Criticality Noted Date [...] Type Department Care Team Description 08/06/2024 Telephone [facility] 4th Floor [address] [facility], [place] [address] Medicare Contact Specialist: Khadra Westbrook Telephone Intake, Staff PAC Appt Request - New 08/01/2024 Results Follow-Up [facility] [address] [place] [address] Medicare Contact Specialist: Newton Rangel DO 07/22/2024 12:00 PM EST Office Visit [facility] [address] [place] [address] Medicare Contact Specialist: Newton Rangel DO Erythromelalgia (HCC) (Primary Dx); Polyarthralgia 06/26/2024 Transcribe Orders [facility] [address] [place] [address] Petra Wiley Subcutaneous mass of right upper extremity (Primary Dx); Subcutaneous mass of abdominal wall 05/20/2024 2:58 PM EST - 05/20/2024 11:59 PM EST Hospital Encounter [facility] XRay [address] [place] [address] DO Polyarthralgia Discharge Disposition: Home or Self Care () 05/20/2024 1:00 PM EST Office Visit [facility] [address] [place] [address] Medicare Contact Specialist: Newton Rangel DO Polyarthralgia (Primary Dx); Positive [...] Description 11/11/2024 12:00 PM EDT Office Visit [facility] [address] [place] [address] Medicare Contact Specialist: Newton Rangel DO [address] [facility] [place] [address] 02/09/2025 10:15 AM EDT Office Visit [facility] 4th Floor [address] [facility], [place] [phone] Medicare Contact Specialist: Hipolito Lei MD [address] [place] [address] Health Maintenance Due Date Last Done Comments HPV and Pap Smear 1987 Hepatitis C Screening 1987 Varicella Vaccines (1 of 2 - 13+ 2-dose series) 2000 Hepatitis B Vaccines (1 of 3 - 19+ 3-dose series) 2006 DTaP,Tdap,and Td Vaccines (1 - Tdap) 10/15/2015/02/2016 Cervical Cancer Screening 11/11/2022 Pap Smear 11/11/2022 11/12/2019 COVID-19 Vaccine (1 - season) 2024 Influenza Vaccine (#1) 2024 6, 03/22/2015, 03/06/2013 Alcohol/Substance Use Screening 06/17/2024 Depression Screening and Follow-Up 06/17/2024 Social Drivers of Health Yoselin ual Screening 06/17/2024 RSV Vaccine (60+ years old a nd patients) (1 - 1-dose 75+ series) 2062 HIV Screening Completed 03/18/2024 Pneumococcal Vaccine: Pediat rebeca (0-5 Years) and At-Risk Patients (6-50 Years) Completed 05/13/2024 Procedures * Due to [place] state law, this organization might not be [...] 3:31 PM EST Positive NURIA (antinuclear antibody) YLUA-0-INILJHOPGTYL I ANTIBODIES, IGG/IGA/IGM Routine 05/20/2024 3:31 PM [...] Last 3 Months Results * Due to [place] state law, this organization might not be sharing negative HIV tests. * Protein Electrophoresis w/Reflex to Immunofixation, Serum (07/22/2024 1:56 PM EST) Protein, Total 8.1 6.1 - 8.1 g/dL 07/28/2024 7:22 AM EST [facility] Albumin 4.8 3.8 - 4.8 g/dL 07/28/2024 7:22 AM EST [facility] Alpha 1 Globulin 0.3 0.2 - 0.3 g/dL 07/28/2024 7:22 AM EST [facility]in [facility] Alpha 2 Globulin 0.7 0.5 - 0.9 g/dL 07/28/2024 7:22 AM EST [facility] Beta 1 Globulin 0.6 0.4 - 0.6 g/dL 07/28/2024 7:22 AM EST [facility]in [facility] Beta 2 Globulin 0.5 0.2 - 0.5 g/dL 07/28/2024 7:22 AM EST [facility] Gamma Globulin 1.2 0.8 - 1.7 g/dL 07/28/2024 7:22 AM EST [facility] Interpretation See Comments 07/28/2024 7:22 AM EST [facility] Comment: Normal Serum Protein Electrophoresis Pattern. No abnormal protein bands (M-protein) detected. Blood Structure of peripheral vein / Unknown Venipuncture / Unknown 07/22/2024 1:56 PM EST 07/22/2024 2:37 PM EST [facility] 07/28/2024 7:22 AM EST [facility] Received Date: us [address] DO LAB BLOOD ORDERABLES Final Res ult [facility] [address] [facility] 3rd Floor, [place] [address], [place] [phone] [facility] [address] [facility] 3rd Floor, [place] [address], [place] [phone] * (ABNORMAL) Sedimentation Rate (07/22/2024 1:56 PM EST) Only the most recent of2 resultswithin the time period is included. [facility] Sed Rate 29(H) <20 mm/Hr mm/Hr 07/22/2024 2:52 PM EST [facility] Blood Structure of peripheral vein / Unknown Venipuncture / Unknown 07/22/2024 1:56 PM EST 07/22/2024 2:37 PM EST [address] DO LAB BLOOD ORDERABLES Final Res ult Performing Organization Address City/[facility]/ZIP Co de Phone Number [facility] [address] [place] [address], [place] * (ABNORMAL) NURIA, Titer and Pattern (05/20/2024 3:31 PM EST) NURIA Titer 1 1:640(H) titer 05/22/2024 12:31 PM EST [facility] Comment: ?Reference Range ?<1:40 ?Negative ?1:40-1:80 ?Low Antibody Level ?>1:80 ?Elevated Antibody Level NURIA Pattern 1 Nuclear, Dense Fine Speckled( A) 05/22/2024 12:31 PM EST [facility] Comment: Dense fine speckled pattern is seen in normal individuals and rarely associated with systemic lupus erythematosis (SLE), Sjogren's syndrome and systemic sclerosis. AC-2: Dense Fine Speckled International Consensus on NURIA Patterns (https://doi.org/10.1515/pwro-6155-7706) Blood Structure of peripheral vein / Unknown Venipuncture / Unknown 05/20/2024 3:31 PM EST 05/20/2024 3:45 PM EST Narrative [facility] - 05/22/2024 12:31 PM EST [facility] Received Date: us Newton Yenifer DO LAB BLOOD ORDERABLES Final Res ult Performing Organization Address City/[facility]/ZIP Co de Phone Number [facility] [address] [facility] 3rd Floor, [address] [facility] [place] [address], [facility] [address] [facility] 3rd Floor, [address] [place] [address], * Cardiolipin Antibodies, IgG/IgM/IgA (05/20/2024 3:31 PM EST) Cardiolipin Ab IgA <2.0 APL-U/mL 2023 2:07 PM EST [facility] Comment: Value ?Interpretation ----- ? < 20.0 ? Antibody not detected > or = 20.0 ?Antibody detected Cardiolipin Ab IgG <2.0 GPL-U/mL 2023 2:07 PM EST [facility] Comment: Value ?Interpretation ----- ? < 20.0 ? Antibody not detected > or = 20.0 ?Antibody detected Cardiolipin Ab IgM <2.0 MPL-U/mL 2023 2:07 PM EST [facility] Comment: Value ?Interpretation ----- ? < 20.0 [...] aging. For additional information, please refer to http://education.b3 bio/faq/DVZ758 (This link is being provided for informational/ educational purposes only.) Blood Structure of peripheral vein / Unknown Venipuncture / Unknown 05/20/2024 3:31 PM EST 05/20/2024 3:45 PM EST Narrative [facility] - 05/21/2024 2:07 PM EST [facility] Received Date: [employer] LAB BLOOD ORDERABLES Final Res ult Performing Organization Address City/[facility]/ZIP Co de Phone Number [facility] [address], [place] [address], [place] [phone] [facility] [address], [place] [address], [place] [phone] * Complement C3c and C4c (05/20/2024 3:31 PM EST) Complement Component C3C 180 83 - 193 mg/dL 05/21/2024 1:53 AM EST [facility] Complement Component C4C 32 15 - 57 mg/dL 05/21/2024 1:53 AM EST [facility] Blood Structure of peripheral vein / Unknown Venipuncture / Unknown 05/20/2024 3:31 PM EST 05/20/2024 3:45 PM EST Narrative [facility] - 05/21/2024 1:53 AM EST [facility] Received Date: [employer] LAB BLOOD ORDERABLES Final Res ult [facility] [address], [place] [address], [place] [phone] [facility] [address], [place] [address], * Lupus Anticoagulation Evaluation w/Reflex (05/20/2024 3:31 PM EST) Lupus Anticoagulant See Comments 05/22/2024 7:11 AM EST [facility] ([facility]) Comment: A Lupus Anticoagulant is not detected. Reference Range: ??Not Detected For additional information, please refer to http://Helixis.b3 bio/faq/BQH71w4 (This link is being provided for informational/ educational purposes only.) ? This interpretation is based on the following test results. Ptt-LA Screen 34 <=40 sec 05/22/2024 7:11 AM EST [facility] (PILI) dRVVT Screen 31 <=45 sec 05/22/2024 7:11 AM EST [facility] ([facility]) Blood Structure of peripheral vein / Unknown Venipuncture / Unknown 05/20/2024 3:31 PM EST 05/20/2024 3:45 PM EST Narrative [facility] (ALE[facility]RE) - 05/22/2024 7:11 AM EST [facility] Received Date: us [address] DO LAB BLOOD ORDERABLES Final Res ult [facility] (PILI) [address] [place] [address], [place] * Cyclic citrul peptide antibody, IgG (05/20/2024 3:31 PM EST) Cyclic Citrullinated Peptide (CCP) Ab (IgG) <16 UNITS 05/21/2024 10:26 PM EST [facility] Comment: Reference Range Negative: ?<20 Weak Positive: ? 20-39 Moderate Positive: ?? 40-59 Strong Positive: ? >59 Blood Structure of peripheral vein / Unknown Venipuncture / Unknown 05/20/2024 3:31 PM EST 05/20/2024 3:45 PM EST [facility] - 05/21/2024 10:26 PM EST [facility] Received Date: us [address] DO LAB BLOOD ORDERABLES Final Res ult Performing Organization Address City/[facility]/ZIP Co de Phone Number [facility] [address], [place] [address], [place] [phone] [facility] [address], [address] [facility] [place] [address], [place] [phone] * (ABNORMAL) NURIA Screen, IFA, w/Reflex to Titer & Pattern (05/20/2024 3:31 PM EST) Pathologist [facility] NURIA Screen, IFA POSITIVE (A) NEGATIVE 05/22/2024 12:31 PM EST [facility] Comment: NURIA IFA is a first line screen for detecting the presence of up to approximately 150 autoantibodies in various autoimmune diseases. A positive NURIA IFA result is suggestive of autoimmune disease and reflexes to titer and pattern. Further laboratory testing may be considered if clinically indicated. For additional information, please refer to http://education.Skully Helmets/faq/RLU225 (This link is being provided for informational/ educational purposes only.) ?? Blood Structure of peripheral vein / Unknown Venipuncture / Unknown 05/20/2024 3:31 PM EST 05/20/2024 3:45 PM EST [facility] - 05/22/2024 12:31 PM EST [facility] Received Date: us [address] DO LAB BLOOD ORDERABLES Final Res ult Performing Organization Address City/[facility]/ZIP Co de Phone Number [facility] [address] [facility] [address] [facility], [place] [address], [place] [phone] [facility] [address] [facility] [address] [facility], [address] [facility] [place] [address], [place] [phone] * Xrgh-8-Szfyljuyxojd I Antibodies, IgG/IgA/IgM (05/20/2024 3:31 PM EST) Beta2-Glycoprotein I (IgG) <2.0 <20.0 U/mL 05/25/2024 8:22 PM EST [facility] (ALEJ[facility]RE) Comment: Value ?Interpretation ----- ? < 20.0 ? Antibody not detected > or = 20.0 ?Antibody detected Beta2-Glycoprotein I (IgM) <2.0 <20.0 U/mL 05/25/2024 8:22 PM EST [facility] (ALEJANDRE) Comment: Value ?Interpretation ----- ? < 20.0 ? Antibody not detected > or = 20.0 ?Antibody detected Beta2-Glycoprotein I (IgA) <2.0 <20.0 U/mL 05/25/2024 8:22 PM EST [facility] (ALEJANDRE) Comment: Value ?Interpretation ----- ? < [...] aging. For additional information, please refer to http://education.b3 bio/faq/CAE940 (This link is being provided for informational/ educational purposes only.) ? Blood Structure of peripheral vein / Unknown Venipuncture / Unknown 05/20/2024 3:31 PM EST 05/20/2024 3:45 PM EST Narrative [facility] - 05/25/2024 8:22 PM EST [facility] Received Date:[id number] Newton Yenifer DO LAB BLOOD ORDERABLES Final Res ult [facility] [address] [facility] [address] [facility], [place] [address], [place] [phone] [email or web address] [address] [place] [address], * Rheumatoid factor (05/20/2024 3:31 PM EST) Rheumatoid Factor <10 <14 IU/mL 05/20/2024 9:54 PM EST [facility] Blood Structure of peripheral vein / Unknown Venipuncture / Unknown 05/20/2024 3:31 PM EST 05/20/2024 3:45 PM EST Narrative [facility] - 05/20/2024 9:54 PM EST [facility] Received Date:[id number] us Newton Yenifer DO LAB BLOOD ORDERABLES Final Res ult Performing Organization Address City/[facility]/ZIP Co de Phone Number [facility] [address] [facility] 3rd Floor, [place] [address], [place] [phone] [facility] [address] [facility] 3rd Floor, [place] [address], [place] [phone] * C-reactive protein (05/20/2024 3:31 PM EST) C Reactive Protein <3.0 <=9.9 mg/L 05/20/2024 4:11 PM EST [facility] Blood Structure of peripheral vein / Unknown Venipuncture / Unknown 05/20/2024 3:31 PM EST 05/20/2024 3:45 PM EST us Newton Popov DO LAB BLOOD ORDERABLES Final Res ult [facility] [address] [place] [address], [place] * NURIA Specific Antibody w/Reflex to Harper (05/20/2024 3:31 PM EST) NURIA Screen, Immunoassay NEGATIVE NEGATIVE 05/21/2024 2:12 PM EST [facility] Comment: A negative NURIA Multiplex indicates the absence of detectable antibodies to component analytes consisting of double stranded DNA (dsDNA), chromatin, ribonucleoprotein (PATIENT ADMITTING CLERK), Jamison/PATIENT ADMITTING CLERK (Sm/PATIENT ADMITTING CLERK), Jamison (Sm), SS-A, SS-B, Laura-1, centromere B, Scl-70 and ribosomal P. A negative result should be interpreted in the context of the clinical and laboratory findings and does not rule out autoimmune disease characterized by other autoantibody specificities such as rheumatoid arthritis, autoimmune hepatitis, primary biliary cirrhosis, autoimmune thyroiditis, Brad's disease, pernicious anemia, autoimmune neuropathies, vasculitis, celiac disease, and bullous disease. For additional information, please refer to http://education.Skully Helmets/faq/KCF460 (This link is being provided for informational/ educational purposes only.) ?? Blood Structure of peripheral vein / Unknown Venipuncture / Unknown 05/20/2024 3:31 PM EST 05/20/2024 3:45 PM EST Narrative [facility] - 05/21/2024 2:12 PM EST [facility] Received Date: us Newton Popov DO LAB BLOOD ORDERABLES Final Res ult [facility] [address] [facility] 3rd Floor, [place] [address], [place] [phone] [facility] [address] [facility] 3rd Floor, [place] [address], [place] [phone] * CK (05/20/2024 3:31 PM EST) CK 55 38 - 206 U/L 05/20/2024 4:11 PM EST [facility] Blood Structure of peripheral vein / Unknown Venipuncture / Unknown 05/20/2024 3:31 PM EST 05/20/2024 3:45 PM EST [address] DO LAB BLOOD ORDERABLES Final Res ult [facility] [address] [place] [address], [place] * XR Foot 3+ vw Right [...] obtain the completed interpretation. ? Workstation ID: [id number] Narrative 05/20/2024 3:47 PM EST COMPARISON: ??There [...] normal limits. No spondyloarthropathy Resulting Agency Comment [id number] Procedure Note Saritha Fabian MD - 05/20/2024 [...] possible to obtain thecompleted interpretation. Workstation ID: [id number] [address] DO IMG XR PROCEDURES [...] obtain the completed interpretation. ? Workstation ID: [id number] Narrative 05/20/2024 3:47 PM EST COMPARISON: ??There [...] normal limits. No spondyloarthropathy Resulting Agency Comment [id number] Procedure Note Saritha Fabian MD - 05/20/2024 [...] possible to obtain thecompleted interpretation. Workstation ID: [id number] us [address] DO IMG XR PROCEDURES [...] obtain the completed interpretation. ? Workstation ID: [id number] Narrative 05/20/2024 3:47 PM EST COMPARISON: ??There [...] normal limits. No spondyloarthropathy Resulting Agency Comment [id number] Procedure Note Saritha Fabian MD - 05/20/2024 [...] possible to obtain thecompleted interpretation. Workstation ID: [id number] [address] DO IMG XR PROCEDURES [...] obtain the completed interpretation. ? Workstation ID: [id number] Narrative 05/20/2024 3:47 PM EST COMPARISON: ??There [...] normal limits. No spondyloarthropathy Resulting Agency Comment [id number] Procedure Note Saritha Fabian MD - 05/20/2024 [...] possible to obtain thecompleted interpretation. Workstation ID: [id number] [address] DO IMG XR PROCEDURES [...] obtain the completed interpretation. ? Workstation ID: [id number] Narrative 05/20/2024 3:47 PM EST COMPARISON: ??There [...] normal limits. No spondyloarthropathy Resulting Agency Comment [id number] Procedure Note Saritha Fabian MD - 05/20/2024 [...] possible to obtain thecompleted interpretation. Workstation ID: [id number] [address] DO IMG XR PROCEDURES Final Result from Last 3 Months Insurance Tari BUNCH, RADHA [id number] [facility] [address] Care Teams Actuarial Trainee Relationship Specialty Start Date End Date Petra Wiley [address] [place] [address] PCP - General Family Medicine 03/19/24
--- OUTSIDE RECORDS SUMMARY | 2024-08-11 18:19 | XMS_ITS | Encounter Summary ---
Author Organization [employer] Address [address] [place] [address] 7t [place] [address] Care Team Providers Care Tankage Grinder Name Role Phone Petra Wiley Primary Care Provider Willard Waters Unavailable [phone] KesslerSeptember Unavailable Juan Sandra MD Unavailable [phone] Brigid Guy NP Unavailable Vicente Mooney MD Unavailable Beth Rai MD Unavailable Michell Espinoza Unavailable Reason for Visit * Reason Comments Med Refill Encounter Details Date Type Department Care Team (Late st Contact Info) Description 07/12/2024 Refill [facility] MED & PEDS [address] [place], [place] [phone] Petra Wiley FNP [address] [place], [place] [phone] Seasonal allergies Social History Tobacco Use Types [...] Description 08/14/2024 1:30 PM EST Clinical Support [facility] DIABETES/NUTRITION [address] [place] [address] Tamanna Mcnityre, ANGELINA [address] [place] [address] 08/18/2024 1:30 PM EST Office Visit [facility] ADULT DENTAL [address] [place] [address] Venkat Barreto DDS [address] [place] [address] 11/04/2024 11:15 AM EDT Office Visit [facility] MEDICINE [address] [place] [address] Petra Wiley FNP [address] [place] [address] 01/18/2025 3:00 PM EDT Office Visit [facility] ADULT DENTAL [address] [place] [address] Sanaz Nelson documented as of this encounter Visit Diagnoses Diagnosis Seasonal allergies Allergic rhinitis, cause unspecified documented in this encounter Additional Health Concerns Assessment Noted Time PHQ-9 Depression Total Score: 13 024 3:11 PM EDT documented as of this encounter Care Teams Tankage Grinder Relationship Specialty Start Date End Date Petra Wiley FNP [address] [place] [address] PCP - General Family Medicine 03/17/24 Willard Waters [address] [place] [address] Rheumatology 05/17/24September 11 [facility] 3rd [place] [address] Gastroenterology 05/17/24 Juan Sandra MD [address] [place] [address] Hematology and Oncology 05/17/24 Brigid Guy NP 10 [facility] [address] [place] [address] Urology 05/17/24 Vicente Mooney MD [address] [place] [address] [address] [place] [address] Obstetrics and Gynecology 05/17/24 Beth Rai MD [address] [place] [address] [address] [place] [address] Neurology 05/17/24 Michell Espinoza [address] [place] [address] 3rd [place] [address] Cardiology 05/17/24 Shelia Zheng Overhauler Bus TruckAccessories Repairer 09/26/23 documented as of this encounter
--- OUTSIDE RECORDS SUMMARY | 2024-08-11 18:19 | XMS_ITS | Encounter Summary ---
Author Organization [employer] Address [address] [facility] 7t [place] [address] Care Team Providers Care Nursery Nurse Name Role Phone Alice Wiley Primary Care Provider [phone] Willard Waters Unavailable [phone] KesslerSeptember Unavailable Juan Sandra MD Unavailable [phone] Brigid Guy NP Unavailable Vicente Mooney MD Unavailable Beth Rai MD Unavailable Michell Espinoza Unavailable Reason for Visit * Reason Onset Date Comments Patient request 07/31/2024 Encounter Details Date Type Department Care Team (Late st Contact Info) Description 07/31/2024 Telephone [facility] MEDICINE [address] [place] [address] Alice Wiley FNP 505 [place], [place] [phone] Patient request Social History Tobacco Use Types Packs/Day Years [...] encounter Miscellaneous Notes * Telephone Encounter - Lula Moreno RN - 07/31/2024 4:00 PM EST TC to patient and advised her that the pulse ox order had been sent to her pharmacy and to pick it up at her convenience. Patient stated understanding. * Addendum Note - NIC Rudd - 07/31/2024 3:42 PM ESTAddended by: ALICE WILEY on: 07/31/2024 03:42 PM Modules accepted: Orders * Telephone Encounter - NIC Rudd - 07/31/2024 3:42 PM EST Sent to [facility] pharmacy, thanks! * Telephone Encounter - Elvia Jimenez - 07/31/2024 1:09 PM EST Patient walked in requesting a pulse oximeter. Patient said she spoke to PCP and was advised one will be sent. documented in this encounter Plan of Treatment Upcoming Encounters Date Type Department Care Team (Late st Contact Info) Description 08/14/2024 1:30 PM EST Clinical Support [facility] DIABETES/NUTRITION [address] [place] [address] Tamanna Mcintyre, ANGELINA [address] [place] [address] 08/18/2024 1:30 PM EST Office Visit [facility] ADULT DENTAL [address] [place] [address] Venkat Barreto DDS [address] [place] [address] 11/04/2024 11:15 AM EDT Office Visit [facility] MEDICINE [address] [place] [address] Alice Wiley FNP [address] [place] [address] 01/18/2025 3:00 PM EDT Office Visit [facility] ADULT DENTAL [address] [place] [address] Sanaz Nelson documented as of this encounter Visit Diagnoses Not on filedocumented in this encounter Additional Health Concerns Assessment Noted Time PHQ-9 Depression Total Score: 13 03/16/ 024 3:11 PM EDT documented as of this encounter Care Teams Nursery Nurse Relationship Specialty Start Date End Date Alice Wiley FNP [address] [place] [address] PCP - General Family Medicine 03/17/24 Willard Waters [address] [facility] [address] [place], [place] Rheumatology 05/17/24 Sumaya Kessler [address] 3rd [place] [address] Gastroenterology 05/17/24 Juan Sandra MD [address] [place] [address] Hematology and Oncology 05/17/24 Brigid Guy NP [address] [place] [address] Urology 05/17/24 Vicente Mooney MD [address] [place] [address] Obstetrics and Gynecology 05/17/24 Beth Rai MD [address] [place] [address] 140 [place] [address] Neurology 05/17/24 Michell Espinoza [address] 3rd [place] [address] Cardiology 05/17/24 Shelia Zheng Skelp ProcessorRefrigeration Mechanic Helper 09/26/23 documented as of this encounter
--- OUTSIDE RECORDS SUMMARY | 2024-08-11 18:20 | XMS_ITS | Clinical Summary ---
Author Organization [employer] Address [address] [place] [address] 7t [place] [address] Care Team Providers Care Cap Parts Cutter Name Role Phone Petra Wiley NIC Primary Care Provider Willard Waters Unavailable [phone] September Unavailable Juan Sandra MD Unavailable [phone] Brigid Guy NP Unavailable Vicente Mooney MD Unavailable Beth Rai MD Unavailable Michell Espinoza Unavailable Allergies Active Allergy Reactions [...] MINDA VECES AL D A Active Creon 79203-916228 units capsule delayed-release particles capsule TOME ADRY [...] or shortness of breath. 18 g 11 [address] Active [address]ilant [address] capsuleIndicatio ns:Gastroparesis ,Gastroesophagea l reflux disease without esophagitis Take 1 capsule (60 mg) by mouth Once per day. Do not crush or chew. 90 capsule 024 Active fexofenadine (Gretchen) 180 MG tabletIndication s:Seasonal allergies Take 1 tablet (180 mg) by mouth Once per day. 90 tablet 3 024 2024 Active cholecalciferol (Vitamin D-3) 25 MCG (1000 UT) tabletIndication s:Vitamin D insufficiency Take 1 tablet (25 mcg) by mouth Once per day. 90 tablet 1 024 Active Tirzepatide 2.5 MG/0.5ML solution auto-injectorInd ications:Class [...] OR ALLERGIES. 30 mL 3 025 Active fluticasone furoate (Arnuity Ellipta) 100 MCG/ACT [...] bedtime. 30 capsule 1 025 2025 Active Misc. Devices (Pulse Oximeter) misc Use to check oxygen saturation as needed. Leave on finger for at least 30 seconds before looking at reading. (Normal above 95%) 1 each 025 Active neomycin-polymyx in-dexAMETHasone 0.1 % ointment Apply small amount to left lower eyelid twice a day for 1 week. 3.5 g 02/18/2 025 Active azelastine (Astelin) 0.1 % nasal sprayIndications [...] capsule 3 024 2024 Discontinued(D ose adjustment) cephalexin (Keflex) 500 MG capsuleIndicatio ns:Hordeolum externum of left lower eyelid Take 1 capsule (500 mg) by mouth 3 times daily for 7 days. 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 Print Shop Assistant referral offered. Recommended to decrease soda and [...] bruising easily 03/17/2024 Overview (03/17/2024): Followed by [facility] Heme/Onc - Dr. Sandra Per consult Jan [...] of Anxiety, Bipolar Disorder , and Trauma services including [facility] Psychotherapy psychopharmacology who presents for Bipolar, Anxiety, [...] HCT 36.5 (L) 03/18/2024 Following with [facility] Heme/Onc - Dr. Turner Assessment & Plan [...] - Has consulted with Surgery team in [facility] for consideration of excision. Per their [...] - Has consulted with Surgery team in [facility] for consideration of excision. Per their consult Mar 2024, identified area has normal lobular fat, no discrete lipoma or nodules. Plan: conservative measures Abnormal uterine bleeding 12/27/2023 Overview (07/29/2024): Following with [facility] OPTICAL LABORATORY MANAGER - Dr. Mooney EMB performed 04/14/24. Path: [...] Overview (05/17/2024): Lab Results Component Value Date [id number] 19.9 (L) 03/18/2024 [id number] 19 (A) 05/08/2023 - Cont Vit D [...] Overview (05/17/2024): Pap NIL/HPV Neg 11/12/2019 Dental: [facility] Last PE: 06/03/23 Hep B Immune: Mar 2024 Gastroesophageal reflux disease without esophagi tis 06/03/2023 Overview (06/03/2023): ?? Followed by [facility] YASSINE Kessler APRN ?? Continues famotidine and Dexliant through GI Irritable bowel syndrome with constipation 06/03 Overview (03/17/2024): Followed up [facility] YASSINE Kessler APRN Continues Bentyl TID Continues Bisacodyl 10mg nightly Dysphagia, oropharyngeal phase 06/03/2023 Overview (06/03/2023): ?? Followed by [facility] YASSINE Kessler APRN Gastroparesis 06/03/2023 Overview (03/17/2024): Followed by [facility] GI Continues with the following medication regimen for multiple GI symptoms and conditions: Creon, famotidine, psyllium, dicyclomine, simethicone, and Dexliant Previous medications: carafate NURIA positive 06/03/2023 Overview (07/29/2024): Previous followed by [facility] Rheum - Dr. Waters May 2024: Established with [facility] Rheum - Dr. Street NURIA positive 2020: 1:160, anti dna, nicholas, ESR, CRP all wnl Disorder of sesamoid bone of foot 06/03/2023 Overview (06/03/2023): -Left lateral sesamoid stress fx identified Jul 2022 at [facility] -Plan for immobilization in short walking boot and follow up 6 weeks Assessment & Plan (06/03/2023 10:28 PM EST): Plan to request latest records from [facility] and follow up with PCP to discuss eligibility handicap placard. Fibromyalgia 08/02/2022 Overview (07/29/2024): -Previously: Lyrica 75mg nightly through [facility] Physiatry/Rheum -Lyrica rx from PCP as of [...] sent her to ED with her partner Gulshan to ro perforated ulcer specially due to [...] Encounters Date Type Department Care Team Description 08/04/2024 2:30 PM EST Office Visit [facility] [address] [place] [address] WaqasJohann pottsn, OD Hordeolum internum of left lower eyelid (Primary Dx); Dry eyes, bilateral; Hyperopia of right eye 08/04/2024 Travel 07/31/2024 Telephone [facility] [address] [place] [address] Petra Wiley FNP Patient request 07/29/2024 10:30 AM EST Office Visit [facility] [address] [place] [address] Petra Wiley FNP Asthma, unspecified asthma severity, unspecified whether complicated, [...] Travel 07/28/2024 1:30 PM EST Clinical Support [facility] [address] [place] [address] Tamanna Mcintyre, RD BMI 35.0-35.9,adult (Primary Dx) 07/28/2024 Telephone [facility] [address] [place], [place] [phone] Shireen Eagle MA Chart Prep 07/28/2024 Travel 07/24/2024 2:30 PM EST Office Visit [facility] [address] [place], [place] [phone] Venkat Barreto DDS 07/24/2024 2:00 PM EST Office Visit [facility] [address] [place] [address] Sylvia Lemons MD Hordeolum externum of left lower eyelid (Primary Dx) 07/20/2024 3:00 PM EST Office Visit [facility] [address] [place] [address] Sanaz Nelson 07/20/2024 2:00 PM EST Clinical Support [facility] [address] [place] [address] BMI 35.0-35.9,adult (Primary Dx) 07/20/2024 Travel 07/12/2024 Refill [facility] [address] [place] [address] Petra Wiley FNP Seasonal allergies 07/10/2024 2:00 PM EST Nutrition [facility] [address] [place] [address] Body mass index (BMI) of 35.0 to 35.9 in adult (Primary Dx) 07/10/2024 1:00 PM EST Office Visit [facility] [address] [place] [address] Venkat Barreto, BECKIES 07/10/2024 Travel 07/02/2024 1:30 PM EST Nutrition [facility] [address] [place] [address] Adult body mass index 35.0-35.9 (Primary Dx) 07/02/2024 Travel 06/30/2024 3:00 PM EST Office Visit [facility] [address] [place] [address] Venkat Barreto, DDS 06/23/2024 Telephone [facility] [address] [place] [address] Petra Wiley FNP 06/11/2024 Telephone [facility] [address] [place] [address] Petra Wiley FNP Medication Question 06/01/2024 Telephone [facility] [address] [place] [address] nutrition appt request 06/01/2024 Patient Outreach [facility] [address] [place] [address] Petra Wiley FNP Care Coordination (C3CM/CHW Dick Henry, TC #3 CM enrollment_Closed ) 05/22/[address] NUTRITION APPT REQUEST 05/20/2024 Orders Only [facility] [address] [place] [address] Provider, MD Addie 05/18/2024 Orders Only [facility] External Provider, [facility] 05/18/2024 Telephone [facility] [address] [place] [address] Petra Wiley FNP Prior Authorization; PA APPROVED 05/13/2024 11:15 AM EST Office Visit [address] [address] Petra Wiley FNP Subcutaneous mass of abdominal wall (Primary Dx); Encounter for immunization; Asthma, unspecified asthma severity, unspecified whether complicated, unspecified whether persistent; Class 2 obesity with body mass index (BMI) of 35.0 to 35.9 in adult, unspecified obesity type, unspecified whether serious comorbidity present; Fibromyalgia; Vitamin D insufficiency; Healthcare maintenance; Palpitations; Abnormal uterine bleeding 05/13/2024 Travel 05/13/[address] [address] Shireen Eagle [place] Chart Prep from Last 3 Months Immunizations Name Administration [...] your housing situation today? I have candido michelle 04/16/[address] you li [...] Description 08/14/2024 1:30 PM EST Clinical Support [facility] [address] [place] [address] Tamanna Mcintyre, RD [address] [place] [address] 08/18/2024 1:30 PM EST Office Visit [facility] [address] [place] [address] Venkat Barreto DDS [address] [place] [address] 11/04/2024 11:15 AM EDT Office Visit [facility] [address] [place] [address] Petra Wiley, [employer] [address] [place] [address] 01/18/2025 3:00 PM EDT Office Visit [facility] [address] [place] [address] Sanaz Nelson Health Maintenance Due Date Last Done Comments [...] SDOH Screening 03/16/2025 03/16/2024 COVID-19 Vaccine ( season) 2025 Postponed from 02/16/2024 (Patient Refused) Dental X-Ray: Bitewings 07/21/2025 07/20/19 25, 12/25/2023, 06/24/2023, Additional history exists Dental X-Ray: Full Mouth 08/03/2025 08/02/2022 Tobacco Screening 08/04/2025 08/04/2024 DTaP/Tdap/Td Vaccines (1 - Tdap) 09/30/2025 10/14/2015 [...] PELVIS TRANSVAGINAL Routine 05/18/2024 3:57 PM EST HEPATITIS C VIRAL RNA, QUANTITATIVE, REAL-TIME [...] EST Narrative 07/07/2024 8:35 AM EST ? [facility] ?[address] ?[place] [address] ? Ultrasound Report ? Signed ? Patient: Lowell Anaya,Ambika ?MR#: [id number] ?? [id number] ? : 1985 ?Acct:[id number] ? Age/Sex: 39 / F ?ADM Date: 05/18/24 ? Loc: HO.US ? Attending Dr: Vicente Mooney MD ? Ordering Physician: Vicente Mooney MD ?? Date of Service: 05/18/24 ?? Procedure(s): US pelvic and transvaginal ?? Accession Number(s): [id number] ? cc: Petra Wiley; Vicente Mooney MD [...] MD ? Signed By: ?<Electronically signed by Ceh Oswald MD in OV> ? 07/07/24 0832 ? DD/ 1557 ? TD/TT: 05/18/24 1620 ? Pump Station Operator: ? Procedure Note Epi, Image - 07/07/2024 [place] [address] Ultrasound Report Signed Patient: Ambika McdermottMR#: [id number] : 1985Acct:[id number] Age/Sex: 39 / FADM Date: 05/18/24 Loc: HO.US Attending Dr: Vicente Mooney MD Ordering Physician: Vicente Mooney MD Date of Service: 05/18/24 Procedure(s): US pelvic and transvaginal Accession Number(s): [id number] cc: Petra Wiley; Vicente Mooney MD EXAMINATION: [...] by: Che Oswald MD 07/07/2024 08:32 AM [facility] Dictated By: Che Oswald MD Signed By: <Electronically signed by Che Oswald MD in OV> 07/07/24 0832 DD/ 1557 TD/TT: 05/18/24 1620 Pump Station Operator: us [facility] External Provider IMG US PROCEDURES Edited Result - Final * Hepatitis C Viral RNA, Quantitative, Real-Time PCR (03/18/2024 2:05 PM EDT) Hepatitis C Viral Load <15 NOT DETECTED NOT DETECTED IU/mL [facility] HCV Log PCR <1.18 NOT DETECTED NOT DETECTED Log IU/mL [facility] Comment:For additional infor mation, please refer tohttp://education.[employer]/faq/GRZ29p6(This link is being provided for informational/educational purposes only.)THIS TEST WAS PERFORMED AT:[facility] [place] [id number] DEL CID MD Blood 03/18/2024 2:05 PM EDT 03/18/2024 2:05 PM EDT Petra Wiley [facility] BLOOD ORDERABLES Final Res ult Performing Organization Address City/[facility]/ZIP Co de Phone Number [facility] [address] [place] [address] [phone] * HIV-1/2 Antigen and Antibodies, Fourth Generation, with Reflexes (03/18/2024 2:05 PM EDT) Pathologist [facility] HIV AB/AG Nonreactive Nonreactive [facility] Comment:HIV-1 p24 Ag and/or HIV-1/HIV-2 Ab not detected.A test result that is nonreactive does not exclude thepossibility of exposure to or infection with HIV-1 and/orHIV-2. Nonreactive results in this assay for individualswith prior exposure to HIV-1 and/or HIV-2 may be due toantigen and antibody levels that are below the limit ofdetection of this assay.The [employer] HIV Ag/Ab Combo assay result andsupplemental assay results should be interpreted inconjunction with the patient's clinical presentation,history and other laboratory results. If the results areinconsistent with clinical evidence, additional testing issuggested to confirm the result. Blood Venous blood specimen / Unknown 03/18/2024 2:05 PM EDT 03/18/2024 2:05 PM EDT Petra Wiley [facility] BLOOD ORDERABLES Final Res ult Performing Organization Address City/[facility]/ZIP Co de Phone Number [facility] [address] [place] [address] [phone] * (ABNORMAL) Lipid Panel, Standard (03/18/2024 2:05 PM EDT) Triglycerides 100 <150 mg/dL [facility] Comment:Desirable Triglyceri de: less than 150 mg/dLBorderline High Triglyceride 150-199 mg/dLHigh Triglyceride: 200-499 mg/dLVery High Triglyceride: greater than or equal to 5OO mg/dL Cholesterol 200(H) <200 mg/dL [facility] Comment:Desirable Cholestero l: less than 200 mg/dLBorderline High Cholesterol: 200-239 mg/dLHigh Cholesterol: greater than 239 mg/dL LDL Cholesterol Calculated 128(H) <100 mg/dL [facility] Comment:Desirable LDL: less than 100 mg/dLNear Optimal/Above Optimal LDL: 110- 129 mg/dLBorderline High LDL: 130-159 mg/dLHigh LDL: 160-189 mg/dLVery High LDL: greater than or equal to 190 mg/dL HDL Cholesterol 52 >40 mg/dL [facility] Comment:Desirable HDL: great er than 40 mg/dL Note: This HDL assay may give artificially low results in patients with liver disease. Blood Venous blood specimen / Unknown 03/18/2024 2:05 PM EDT 03/18/2024 2:05 PM EDT Petra Wiley [employer] LAB BLOOD ORDERABLES Final Res ult [facility] [address] [place] [address] [phone] * Pap Smear (11/12/2019 12:00 AM EDT) Swab Historical Provider MD LAB CYTOLOGY ORDERABLES F inal Result EXTERNAL LAB from Last 3 Months or Most Recently Relevant to [place] [address] [facility] C3 DENTAL-[facility] MEDICAID STAND ADULT Care Teams Cap Parts Cutter Relationship Specialty Start Date End Date Petra Wiley FNP [address] [place] [address] PCP - General Family Medicine 03/17/24 Willard Waters [address] MD Rheumatology 05/17/24 Victoria Sumaya [address] 3rd [place] [address] Gastroenterology 05/17/24 Juan Sandra MD [address] [place] [address] Hematology and Oncology 05/17/24 Brigid Guy NP [address] [place] [address] Urology 05/17/24 Vicente Mooney MD [address] [place] [address] [address] [place] [address] Obstetrics and Gynecology 05/17/24 Beth Rai MD [address] [place] [address] Neurology 05/17/24 Michell Espinoza [address] 3rd [place] [address] Cardiology 05/17/24 Shelia Zheng Scale AdjusterCotton Stripper 09/26/23
--- OUTSIDE RECORDS SUMMARY | 2024-08-11 18:20 | XMS_ITS | Encounter Summary ---
Author Organization [employer] Address [address] [facility] 7t [place] [address] Care Team Providers Care Commission Clerk Name Role Phone Jennie Murray MD Primary Care Provider Petra Wiley Primary Care Provider [phone] Willard Waters Unavailable [phone] September Unavailable Juan Sandra MD Unavailable [phone] Brigid Guy NP Unavailable Vicente Mooney MD Unavailable Beth Rai MD Unavailable Michell Espinoza Unavailable Encounter Details Date Type Department Care Team (Late st Contact Info) Description 05/18/2022 Orders Only [facility] [address] [place] [address] Jennie Murray MD [address] [place], [place] [phone] Acute foot pain, unspecified laterality (Primary Dx) [...] Description 08/14/2024 1:30 PM EST Clinical Support [facility] [address] [place] [address] Tamanna Mcintyre, RD [address] [place] [address] 08/18/2024 1:30 PM EST Office Visit [facility] [address] [place] [address] Venkat Barreto DDS [address] [place] [address] 11/04/2024 11:15 AM EDT Office Visit [facility] [address] [place] [address] Petra Wiley FNP [address] [place] [address] 01/18/2025 3:00 PM EDT Office Visit [facility] [address] [place] [address] Sanaz Nelson documented as of this encounter Visit Diagnoses Diagnosis Acute foot pain, unspecified laterality- Primary documented in this encounter Care Teams Commission Clerk Relationship Specialty Start Date End Date Jennie Murray MD [address] [place] [address] PCP - General Family Medicine 06/23/13 03/16/24 Petra Wiley FNP [address] [place] [address] PCP - General Family Medicine 03/17/24 Willard Waters [address] [place] [address] Rheumatology 05/17/24 Victoria Sumaya [address] 3rd [place] [address] Gastroenterology 05/17/24 Juan Sandra MD [address] [place] [address] Hematology and Oncology 05/17/24 Brigid Guy NP [address] [place] [address] Urology 05/17/24 Vicente Mooney MD [address] [place] [address] [address] [place] [address] Obstetrics and Gynecology 05/17/24 Beth Rai MD [address] [place] [address] [address] Neurology 05/17/24 Michell Espinoza [address] [facility] 3rd [place] [address] Cardiology 05/17/24 Shelia Zheng Auto Body CustomizerPier Hand Helper 09/26/23 documented as of this encounter
--- OUTSIDE RECORDS SUMMARY | 2024-08-11 18:20 | XMS_ITS | Encounter Summary ---
Author Organization [employer] Address [address] [place] [address] 7t [place] [address] Care Team Providers Care Osd Clerk Name Role Phone Jennie Murray MD Primary Care Provider Petra Wiley Primary Care Provider Willard Waters Unavailable [phone] September Unavailable Juan Sandra MD Unavailable [phone] Brigid Guy NP Unavailable Vicente Mooney MD Unavailable Beth Rai MD Unavailable Michell Espinoza Unavailable Encounter Details Date Type Department Care Team (Late st Contact Info) Description 07/26/2022 Orders Only [facility] [address] [place], [place] [phone] Nelson Medrano MD [address] [place] [phone] Chronic idiopathic constipation (Primary Dx) Social History [...] Description 08/14/2024 1:30 PM EST Clinical Support [facility] [address] [place] [address] Tamanna Mcintyre, ANGELINA [address] [place] [address] 08/18/2024 1:30 PM EST Office Visit [facility] [address] [place] [address] Venkat Barreto DDS [address] [place] [address] 11/04/2024 11:15 AM EDT Office Visit [facility] [address] [place] [address] Petra Wiley FNP [address] [place] [address] 01/18/2025 3:00 PM EDT Office Visit [facility] [address] [place] [address] Sanaz Nelson documented as of this encounter Visit Diagnoses Diagnosis Chronic idiopathic constipation- Primary Unspecified constipation documented in this encounter Additional Health Concerns Assessment Noted Time PHQ-9 Depression Total Score: 0 07/04/19 23 3:01 PM EST documented as of this encounter Care Teams Osd Clerk Relationship Specialty Start Date End Date Jennie Murray MD [address] [place] [address] PCP - General Family Medicine 06/23/13 03/16/24 Petra Wiley FNP [address] [place] [address] PCP - General Family Medicine 03/17/24 Willard Waters [address] [place] [address] Rheumatology 05/17/24 Sumaya Kessler [address] [facility] 3rd [place] [address] Gastroenterology 05/17/24 Juan Sandra MD [address] [place] [address] Hematology and Oncology 05/17/24 Brigid Guy NP [address] [facility] [address] [place] [address] Urology 05/17/24 Vicente Mooney MD [address] [place] [address] [address] [place] [address] Obstetrics and Gynecology 05/17/24 Beth Rai MD [address] [place] [address] Neurology 05/17/24 Michell Espinoza [address] [address] Cardiology 05/17/24 Shelia Zheng Parking Control OfficerChemotherapist 09/26/23 documented as of this encounter
--- OUTSIDE RECORDS SUMMARY | 2024-08-11 18:20 | XMS_ITS | Encounter Summary ---
Author Organization [employer] Address [address] [facility] 7t [place] [address] Care Team Providers Care Stress Analyst Name Role Phone Jennie Murray MD Primary Care Provider Petra Wiley Primary Care Provider Willard Waters Unavailable [phone] September Unavailable Juan Sandra MD Unavailable [phone] Brigid Guy NP Unavailable Vicente Mooney MD Unavailable Beth Rai MD Unavailable Michell Espinoza Unavailable Encounter Details Date Type Department Care Team (Late st Contact Info) Description 05/25/2022 Abstract [facility] [address] [place], [place] [phone] Dental, Provider, DDS Social History Tobacco Use [...] 1:30 PM EST Clinical Support [facility] [address] [place] [phone] Tamanna Mcintyre, RD [address] [place] [address] 08/18/2024 1:30 PM EST Office Visit [facility]ULT [facility] [address] [place] [address] Mary LouDavid lancasterVenkat, DDS [address] [place] [address] 11/04/2024 11:15 AM EDT Office Visit [facility] [address] [place] [address] Petra Wiley, CARB[employer] [address] [place] [address] 01/18/2025 3:00 PM EDT Office Visit [facility] [address] [place] [address] Sanaz Nelson documented as of this encounter [...] on filedocumented in this encounter Care Teams Stress Analyst Relationship Specialty Start Date End Date Jennie Murray MD [address] [place] [address] PCP - General Family Medicine 06/23/13 03/16/24 Petra Wiley FNP [address] [place] [address] PCP - General Family Medicine 03/17/24 Willard Waters [address] [place] [address] Rheumatology 05/17/24 Victoria Sumaya [address] [facility] 3rd [place] [address] Gastroenterology 05/17/24 Juan Sandra MD [address] [place] [address] Hematology and Oncology 05/17/24 Brigid Guy NP [address] [facility] [address] [place] [address] Urology 05/17/24 Vicente Mooney MD [address] [place] [address] [address] [place] [address] Obstetrics and Gynecology 05/17/24 Beth Rai MD [address] [place] [address] [address] [place] [address] Neurology 05/17/24 Michell Espinoza [address] [facility] 3rd [place] [address] Cardiology 05/17/24 Shelia Zheng Event SpecialistApprenticeship Consultant 09/26/23 documented as of this encounter
--- OUTSIDE RECORDS SUMMARY | 2024-08-11 18:20 | XMS_ITS | Encounter Summary ---
Author Organization [employer] Address 75 [facility] 7t [place] [address] Care Team Providers Care Size Roller Operator Name Role Phone Petra Wiley NIC Primary Care Provider Willard Waters Unavailable [phone] KesslerSeptember Unavailable Juan Sandra MD Unavailable [phone] Brigid Guy NP Unavailable Vicente Mooney MD Unavailable Beth Rai MD Unavailable Michell Espinoza Unavailable Encounter Details Date Type Department Care Team (Late st Contact Info) Description 05/20/2024 Orders Only FORMERLY [facility] [address] [place], [place] [phone] ProviderAddie MD Social History Tobacco Use Types [...] the past 12 months, has t he [employer], gas, oil or water company threatened to [...] PM EST Clinical Support [facility] DIABETES/NUTRITION [address] [place] [address] Tamanna Mcintyre, RD [address] [place] [address] 08/18/2024 1:30 PM EST Office Visit [facility] ADULT DENTAL [address] [place] [address] Venkat Barreto, DDS 230 [place] [address] 11/04/2024 11:15 AM EDT Office Visit [facility] MEDICINE 230 [place] [address] Petra Wiley FNP 505 [place] [address] 01/18/2025 3:00 PM EDT Office Visit [facility] ADULT DENTAL [address] [place] [address] Sanaz Nelson documented as of this encounter [...] documented as of this encounter Care Teams Size Roller Operator Relationship Specialty Start Date End Date Petra Wiley FNP 230 [place] [address] PCP - General Family Medicine 03/17/24 Willard Waters [address] [place] [address] Rheumatology 05/17/24 Victoria Sumaya [address] [facility] 3rd [place] [address] Gastroenterology 05/17/24 Juan Sandra MD [address] [place] [address] Hematology and Oncology 05/17/24 Brigid Guy NP [address] [facility] [address] [place] [address] Urology 05/17/24 Vicente Mooney MD [address] [place] [address] [address] [place] [address] Obstetrics and Gynecology 05/17/24 Beth Rai MD [address] [place] [address] 140 [place] [address] Neurology 05/17/24 Michell Espinoza [address] 3rd [place] [address] Cardiology 05/17/24 Shelia Zheng Emergency Medical Service ManagerCertified Fraud Examiner 09/26/23 documented as of this encounter
== END 2024-08-11 15:44 | disposition home or self-care (01) ==
PROVIDERS: PCP Student in an Organized Health Care Education/Training Program; Visit Provider Nurse Practitioner Family
DX: N20.0 Calculus of kidney (principal); Z13.9 Encounter for screening, unspecified
CPT/HCPCS: 99214

== ENCOUNTER 2024-08-17 13:54 | Outpatient (REF) | payer MEDICAID, SELFPAY ==
[2024-08-17 14:35] LABS: Appearance Urine Clear; Color Urine Yellow; Glucose Urine UA Negative (Negative); Leukocyte Esterase Urine Negative (Negative); Nitrite Urine Negative (Negative); PH 5.5 (5.0-9.0); Urine Blood Negative (Negative); Urine Ketones Negative (Negative); Urine Protein Negative (Neg-Trace)
--- OUTSIDE RECORDS SUMMARY | 2024-08-17 16:28 | XMS_ITS | Encounter Summary ---
Author Organization [employer] Address [address] [facility] 7t [place] [address] Care Team Providers Care Research Neuropsychologist Name Role Phone Alice Wiley Primary Care Provider Willard Waters Unavailable [phone] Victoria September Unavailable Juan Sandra MD Unavailable [phone] Brigid Guy NP Unavailable Vicente Mooney MD Unavailable Beth Rai MD Unavailable Michell Espinoza Unavailable Reason for Visit * Reason Onset Date Comments Patient request 07/31/2024 Encounter Details Date Type Department Care Team (Late st Contact Info) Description 07/31/2024 Telephone [facility] MEDICINE [address] [place] [address] Alice Wiley FNP [address] [place], [place] [id number] Patient request Social History Tobacco Use Types [...] - 07/31/2024 3:42 PM EST Sent to [facility] pharmacy, thanks! * Telephone Encounter - Elvia Jimenez - 07/31/2024 1:09 PM EST Patient walked in requesting a pulse oximeter. Patient said she spoke to PCP and was advised one will be sent. documented in this encounter Plan of Treatment Upcoming Encounters Date Type Department Care Team (Late st Contact Info) Description 08/18/2024 1:30 PM EST Office Visit [facility] ADULT DENTAL [address] [place] [address] Venkat Barreto DDS [address] [place] [address] 09/08/2024 3:00 PM EDT Clinical Support [facility] DIABETES/NUTRITION [address] [place] [address] Tamanna Mcintyre, RD [address] [place] [address] 11/04/2024 11:15 AM EDT Office Visit [facility] MEDICINE [address] [place] [address] Alice Wiley FNP [address] [place] [address] 01/18/2025 3:00 PM EDT Office Visit [facility] ADULT DENTAL [address] [place] [address] Sanaz Nelson documented as of this encounter Visit Diagnoses Not on filedocumented in this encounter Additional Health Concerns Assessment Noted Time PHQ-9 Depression Total Score: 13 03/16/2 024 3:11 PM EDT documented as of this encounter Care Teams Research Neuropsychologist Relationship Specialty Start Date End Date Alice Wiley FNP [address] [place] [address] PCP - General Family Medicine 03/17/24 Willard Waters [address] [facility] [address] [employer], [place] Rheumatology 05/17/24 Sumaya Kessler [address]rd [place] [address] Gastroenterology 05/17/24 Juan Sandra MD [address] [place] [address] Hematology and Oncology 05/17/24 Brigid Guy NP [address] [place] [address] Urology 05/17/24 Vicente Mooney MD 575 [facility] [address] [place] [address] Obstetrics and Gynecology 05/17/24 Beth Rai MD 15 [facility] 140 [place] [address] Neurology 05/17/24 Michell Espinoza [address] 3rd [place] [address] Cardiology 05/17/24 Shelia Zheng Pilot Plant TechnicianData Processing Equipment Repairer 09/26/23 documented as of this encounter
--- OUTSIDE RECORDS SUMMARY | 2024-08-17 16:28 | XMS_ITS | Encounter Summary ---
Author Organization [employer] Address [address] [facility] 7t [place] [address] Care Team Providers Care Laborer Orchard Name Role Phone Jennie Murray MD Primary Care Provider Petra Wiley Primary Care Provider Willard Waters Unavailable [phone] September Unavailable Juan Sandra MD Unavailable [phone] Brigid Guy NP Unavailable Vicente Mooney MD Unavailable Beth Rai MD Unavailable Michell Espinoza Unavailable Encounter Details Date Type Department Care Team (Latest Contact Info) Description 09/03/2018 Abstract [facility] CONVERSIONS Dental, Provider, DDS Social History [...] Description 08/18/2024 1:30 PM EST Office Visit [facility] ADULT DENTAL [address] [place], [place] [phone] Venkat Barreto DDS [address] [place], [place] [phone] 09/08/2024 3:00 PM EDT Clinical Support [facility] DIABETES/NUTRITION [address] [place] [address] Tamanna Mcintyre, RD [address] [place] [address] 11/04/2024 11:15 AM EDT Office Visit [facility] MEDICINE [address] [place] [address] Petra Wiley FNP [address] [place] [address] 01/18/2025 3:00 PM EDT Office Visit [facility] ADULT DENTAL [address] [place] [address] Sanaz Nelson documented as of this encounter Visit Diagnoses Not on filedocumented in this encounter Care Teams Laborer Orchard Relationship Specialty Start Date End Date Jennie Murray MD [address] [place] [address] PCP - General Family Medicine 06/23/13 03/16/24 Petra Wiley FNP [address] [place] [address] PCP - General Family Medicine 03/17/24 Willard Waters [address] [place] [address] Rheumatology 05/17/24September [address] 3rd [place] [address] Gastroenterology 05/17/24 Juan Sandra MD [address] [place] [address] Hematology and Oncology 05/17/24 Brigid Guy NP [address] [place] [address] Urology 05/17/24 Vicente Mooney MD [address] [place] [address] [address] [place] [address] Obstetrics and Gynecology 05/17/24 Beth Rai MD [address] [place] [address] Dr Multani [address] [place] [address] Neurology 05/17/24 Michell Espinoza [address]rd [place] [address] Cardiology 05/17/24 Shelia Zheng Speed RunnerStringed Instrument Assembler 09/26/23 documented as of this encounter
--- OUTSIDE RECORDS SUMMARY | 2024-08-17 16:28 | XMS_ITS | Clinical Summary ---
Author Organization [facility] Address [address] [place] [address] Care Team Providers Care Set Key Driver Name Role Phone Petra Wiley Primary Care Provider [phone] Allergies Active Allergy Reactions Criticality Noted Date [...] Type Department Care Team Description 08/06/2024 Telephone [facility] Dermatology Clinic 4th Floor [address] [facility], [place] [address] Firmware Test Engineer: Khadra Westbrook Telephone Intake, Staff PAC Appt Request - New 08/01/2024 Results Follow-Up [facility] Rheumatology Clinic [address] [place] [address] Firmware Test Engineer: Newton Rangel DO 07/22/2024 12:00 PM EST Office Visit [facility] Rheumatology Clinic [address] [place] [address] Firmware Test Engineer: Newton Rangel DO Erythromelalgia (HCC) (Primary Dx); Polyarthralgia 06/26/2024 Transcribe Orders [facility] Physician Referral Services [address] [place] [address] Petra Wiley Subcutaneous mass of right upper extremity (Primary Dx); Subcutaneous mass of abdominal wall 05/20/2024 2:58 PM EST - 05/20/2024 11:59 PM EST Hospital Encounter [facility] XRay [address] [place] [address] DO Polyarthralgia Discharge Disposition: Home or Self Care () 05/20/2024 1:00 PM EST Office Visit [facility] Rheumatology Clinic [address] [place] [address] Firmware Test Engineer: Newton Rangel DO Polyarthralgia (Primary Dx); Positive [...] Description 11/11/2024 12:00 PM EDT Office Visit [facility] Rheumatology Clinic [address] [place] [address] Firmware Test Engineer: Newton Rangel DO [address] [facility] [place] [address] 02/09/2025 10:15 AM EDT Office Visit [facility] Dermatology Clinic 4th Floor [address] [facility], [place] [address] Firmware Test Engineer: Hipolito Lei MD [address] [place] [address] Health Maintenance Due Date Last Done Comments [...] Years) Completed 05/13/2024 Procedures * Due to [place] state law, this organization might not be [...] 3:31 PM EST Positive NURIA (antinuclear antibody) [id number] I ANTIBODIES, IGG/IGA/IGM Routine 05/20/2024 3:31 PM [...] Last 3 Months Results * Due to [place] state law, this organization might not be sharing negative HIV tests. * Protein Electrophoresis w/Reflex to Immunofixation, Serum (07/22/2024 1:56 PM EST) Protein, Total 8.1 6.1 - 8.1 g/dL 07/28/2024 7:22 AM EST [facility] Albumin 4.8 3.8 - 4.8 g/dL 07/28/2024 7:22 AM EST [facility] Alpha 1 Globulin 0.3 0.2 - 0.3 g/dL 07/28/2024 7:22 AM EST [facility] Alpha 2 Globulin 0.7 0.5 - 0.9 g/dL 07/28/2024 7:22 AM EST [facility] Beta 1 Globulin 0.6 0.4 - 0.6 g/dL 07/28/2024 7:22 AM EST [facility] Beta 2 Globulin 0.5 0.2 - 0.5 g/dL 07/28/2024 7:22 AM EST [facility] Gamma Globulin 1.2 0.8 - 1.7 g/dL 07/28/2024 7:22 AM EST [facility] Interpretation See Comments 07/28/2024 7:22 AM EST [facility] Comment: Normal Serum Protein Electrophoresis Pattern. No abnormal protein bands (M-protein) detected. Blood Structure of peripheral vein / Unknown Venipuncture / Unknown 07/22/2024 1:56 PM EST 07/22/2024 2:37 PM EST [facility] - 07/28/2024 7:22 AM EST [facility] Received Date: us [address] DO LAB BLOOD ORDERABLES Final Res ult [facility] 200 [facility] 3rd Floor, [place] [address], [place] [phone] [facility] 200 [facility] 3rd Floor, [place] [address], [place] [phone] * (ABNORMAL) Sedimentation Rate (07/22/2024 1:56 PM EST) Only the most recent of2 resultswithin the time period is included. [facility] Sed Rate 29(H) <20 mm/Hr mm/Hr 07/22/2024 2:52 PM EST [facility] Blood Structure of peripheral vein / Unknown Venipuncture / Unknown 07/22/2024 1:56 PM EST 07/22/2024 2:37 PM EST us [address] DO LAB BLOOD ORDERABLES Final Res ult Performing Organization Address City/[facility]/ZIP Co de Phone Number [facility] CLINICAL PATHOLOGY LABORATORY [address] [place] [address], [place] * (ABNORMAL) NURIA, Titer and Pattern (05/20/2024 3:31 PM EST) NURIA Titer 1 1:640(H) titer 05/22/2024 12:31 PM EST [id number] Comment: ?Reference Range ?<1:40 ?Negative ?1:40-1:80 ?Low Antibody Level ?>1:80 ?Elevated Antibody Level NURIA Pattern 1 Nuclear, Dense Fine Speckled( A) 05/22/2024 12:31 PM EST [email or web address] Comment: Dense fine speckled pattern is seen in normal individuals and rarely associated with systemic lupus erythematosis (SLE), Sjogren's syndrome and systemic sclerosis. AC-2: Dense Fine Speckled International Consensus on NURIA Patterns (https://doi.org/10.1515/drno-6680-3319) Blood Structure of peripheral vein / Unknown Venipuncture / Unknown 05/20/2024 3:31 PM EST 05/20/2024 3:45 PM EST Narrative [facility] - 05/22/2024 12:31 PM EST [facility] Received Date: us Newton Yenifer DO LAB BLOOD ORDERABLES Final Res ult Performing Organization Address City/[facility]/ZIP Co de Phone Number [facility] 200 [facility] 3rd Floor, [address] [facility] [place] [address], [facility] 200 [facility] 3rd Floor, [address] [place] [address], * Cardiolipin Antibodies, IgG/IgM/IgA (05/20/2024 3:31 PM EST) Cardiolipin Ab IgA <2.0 APL-U/mL 2023 2:07 PM EST [id number] Comment: Value ?Interpretation ----- ? < 20.0 ? Antibody not detected > or = 20.0 ?Antibody detected Cardiolipin Ab IgG <2.0 GPL-U/mL 2023 2:07 PM EST [id number] Comment: Value ?Interpretation ----- ? < 20.0 ? Antibody not detected > or = 20.0 ?Antibody detected Cardiolipin Ab IgM <2.0 MPL-U/mL 2023 2:07 PM EST [id number] Comment: Value ?Interpretation ----- ? < 20.0 [...] aging. For additional information, please refer to http://education.mphoria/faq/FRD982 (This link is being provided for informational/ educational purposes only.) Blood Structure of peripheral vein / Unknown Venipuncture / Unknown 05/20/2024 3:31 PM EST 05/20/2024 3:45 PM EST Narrative [facility] - 05/21/2024 2:07 PM EST [facility] Received Date: [employer] LAB BLOOD ORDERABLES Final Res ult Performing Organization Address City/[facility]/ZIP Co de Phone Number [facility] [address], [place] [address], [place] [phone] [facility] [address], [place] [address], [place] [phone] * Complement C3c and C4c (05/20/2024 3:31 PM EST) Complement Component C3C 180 83 - 193 mg/dL 05/21/2024 1:53 AM EST [facility] Complement Component C4C 32 15 - 57 mg/dL 05/21/2024 1:53 AM EST [facility] Blood Structure of peripheral vein / Unknown Venipuncture / Unknown 05/20/2024 3:31 PM EST 05/20/2024 3:45 PM EST Narrative [employer] MOBEETIE - 05/21/2024 1:53 AM EST [facility] Received Date: [employer] LAB BLOOD ORDERABLES Final Res ult [facility] [address], [place] [address], [place] [phone] [facility] [address], [place] [address], * Lupus Anticoagulation Evaluation w/Reflex (05/20/2024 3:31 PM EST) Lupus Anticoagulant See Comments 05/22/2024 7:11 AM EST [facility] (ALE[facility]ANDRE) Comment: A Lupus Anticoagulant is not detected. Reference Range: ??Not Detected For additional information, please refer to http://2C2P.mphoria/faq/CDN40d0 (This link is being provided for informational/ [...] ORDERABLES Final Res ult SLIM CABRERA (PILI) [address] [place] [address], [place] * Cyclic citrul peptide antibody, IgG (05/20/2024 3:31 PM EST) Cyclic Citrullinated Peptide (CCP) Ab (IgG) <16 UNITS 05/21/2024 10:26 PM EST [facility] Comment: Reference Range Negative: ?<20 Weak Positive: ? 20-39 Moderate Positive: ?? 40-59 Strong Positive: ? >59 Blood Structure of peripheral vein / Unknown Venipuncture / Unknown 05/20/2024 3:31 PM EST 05/20/2024 3:45 PM EST Vicky WINTER - 05/21/2024 10:26 PM EST [facility] Received Date: us [address] DO LAB BLOOD ORDERABLES Final Res ult Performing Organization Address City/[facility]/ZIP Co de Phone Number [facility] WINTER [address], [place] [address], [place] [phone] [facility] [address], [address] [facility] [place] [address], [place] [phone] * (ABNORMAL) NURIA Screen, IFA, w/Reflex to Titer & Pattern (05/20/2024 3:31 PM EST) Pathologist [facility] NURIA Screen, IFA POSITIVE (A) NEGATIVE 05/22/2024 12:31 PM EST [facility] Comment: NURIA IFA is a first line screen for detecting the presence of up to approximately 150 autoantibodies in various autoimmune diseases. A positive NURIA IFA result is suggestive of autoimmune disease and reflexes to titer and pattern. Further laboratory testing may be considered if clinically indicated. For additional information, please refer to http://education.BlueConic/faq/GMO657 (This link is being provided for informational/ educational purposes only.) ?? Blood Structure of peripheral vein / Unknown Venipuncture / Unknown 05/20/2024 3:31 PM EST 05/20/2024 3:45 PM EST V[facility] WINTER - 05/22/2024 12:31 PM EST [facility] Received Date: us [address] DO LAB BLOOD ORDERABLES Final Res ult Performing Organization Address City/[facility]/ZIP Co de Phone Number SLIM WINTER 200 [facility] [address] [facility], [place] [address], [place] [phone] [facility] 200 [facility] [address] [facility], [address] [facility] [place] [address], [place] [phone] * [id number] I Antibodies, IgG/IgA/IgM (05/20/2024 3:31 PM EST) [...] aging. For additional information, please refer to http://education.mphoria/faq/DFD430 (This link is being provided for informational/ educational purposes only.) ? Blood Structure of peripheral vein / Unknown Venipuncture / Unknown 05/20/2024 3:31 PM EST 05/20/2024 3:45 PM EST Narrative [facility] - 05/25/2024 8:22 PM EST [facility] Received Date:[id number] Newton Yenifer DO LAB BLOOD ORDERABLES Final Res ult [facility] 200 [facility] [address] [facility], [place] [address], [place] [phone] [facility] [address] [place] [address], * Rheumatoid factor (05/20/2024 3:31 PM EST) Rheumatoid Factor <10 <14 IU/mL 05/20/2024 9:54 PM EST [id number] Blood Structure of peripheral vein / Unknown Venipuncture / Unknown 05/20/2024 3:31 PM EST 05/20/2024 3:45 PM EST Narrative [facility] WINTER - 05/20/2024 9:54 PM EST [facility] Received Date:[id number] us Newton Yenifer DO LAB BLOOD ORDERABLES Final Res ult Performing Organization Address City/[facility]/ZIP Co de Phone Number [facility] WINTER 200 [facility] 3rd Floor, [place] [address], [place] [phone] [facility] 200 [facility] 3rd Floor, [place] [address], [place] [phone] * C-reactive protein (05/20/2024 3:31 PM EST) C Reactive Protein <3.0 <=9.9 mg/L 05/20/2024 4:11 PM EST [facility] PATH[facility] LABOR[facility] Blood Structure of peripheral vein / Unknown Venipuncture / Unknown 05/20/2024 3:31 PM EST 05/20/2024 3:45 PM EST us Newton Popov DO LAB BLOOD ORDERABLES Final Res ult [facility] CL[facility]ICAL PATH[facility]Y LABORATORY [address] [place] [address], [place] * NURIA Specific Antibody w/Reflex to [place] (05/20/2024 3:31 PM EST) NURIA Screen, Immunoassay NEGATIVE NEGATIVE 05/21/2024 2:12 PM EST [facility] Comment: A negative NURIA Multiplex indicates the absence of detectable antibodies to component analytes consisting of double stranded DNA (dsDNA), chromatin, ribonucleoprotein (TEST TUBE MAKER), Jamison/TEST TUBE MAKER (Sm/TEST TUBE MAKER), Jamison (Sm), SS-A, SS-B, Laura-1, centromere B, Scl-70 and ribosomal P. A negative result should be interpreted in the context of the clinical and laboratory findings and does not rule out autoimmune disease characterized by other autoantibody specificities such as rheumatoid arthritis, autoimmune hepatitis, primary biliary cirrhosis, autoimmune thyroiditis, [place]'s disease, pernicious anemia, autoimmune neuropathies, vasculitis, celiac disease, and bullous disease. For additional information, please refer to http://education.BlueConic/faq/IVV310 (This link is being provided for informational/ educational purposes only.) ?? Blood Structure of peripheral vein / Unknown Venipuncture / Unknown 05/20/2024 3:31 PM EST 05/20/2024 3:45 PM EST Narrative [facility] - 05/21/2024 2:12 PM EST [facility] Received Date: us Newton Popov DO LAB BLOOD ORDERABLES Final Res ult [facility] 200 [facility] 3rd Floor, [place] [address], [place] [phone] [facility] 200 [facility] 3rd Floor, [place] [address], [place] [phone] * CK (05/20/2024 3:31 PM EST) CK 55 38 - 206 U/L 05/20/2024 4:11 PM EST [facility] LAB[facility] Blood Structure of peripheral vein / Unknown Venipuncture / Unknown 05/20/2024 3:31 PM EST 05/20/2024 3:45 PM EST [address] DO LAB BLOOD ORDERABLES Final Res ult [facility] LAB[facility] [address] [place] [address], [place] * XR Foot 3+ vw Right [...] obtain the completed interpretation. ? Workstation ID: [id number] Narrative 05/20/2024 3:47 PM EST COMPARISON: ??There [...] normal limits. No spondyloarthropathy Resulting Agency Comment [id number] Procedure Note Saritha Fabian MD - 05/20/2024 [...] possible to obtain thecompleted interpretation. Workstation ID: [id number] us [address] DO IMG XR PROCEDURES [...] obtain the completed interpretation. ? Workstation ID: [id number] Narrative 05/20/2024 3:47 PM EST COMPARISON: ??There [...] normal limits. No spondyloarthropathy Resulting Agency Comment [id number] Procedure Note Saritha Fabian MD - 05/20/2024 [...] possible to obtain thecompleted interpretation. Workstation ID: [id number] [address] DO IMG XR PROCEDURES [...] obtain the completed interpretation. ? Workstation ID: [id number] Narrative 05/20/2024 3:47 PM EST COMPARISON: ??There [...] normal limits. No spondyloarthropathy Resulting Agency Comment [id number] Procedure Note Saritha Fabian MD - 05/20/2024 [...] possible to obtain thecompleted interpretation. Workstation ID: [id number] [address] DO IMG XR PROCEDURES [...] obtain the completed interpretation. ? Workstation ID: [id number] Narrative 05/20/2024 3:47 PM EST COMPARISON: ??There [...] normal limits. No spondyloarthropathy Resulting Agency Comment [id number] Procedure Note Saritha Fabian MD - 05/20/2024 [...] possible to obtain thecompleted interpretation. Workstation ID: [id number] [address] DO IMG XR PROCEDURES [...] obtain the completed interpretation. ? Workstation ID: [id number] Narrative 05/20/2024 3:47 PM EST COMPARISON: ??There [...] normal limits. No spondyloarthropathy Resulting Agency Comment [id number] Procedure Note Saritha Fabian MD - 05/20/2024 [...] possible to obtain thecompleted interpretation. Workstation ID: [id number] [address] DO IMG XR PROCEDURES Final Result from Last 3 Months Insurance Tari BUNCH, RADHA [id number] [facility] Care Teams Set Key Driver Relationship Specialty Start Date End Date Petra Wiley [address] [place] [id number] PCP - General Family Medicine 03/19/24
--- OUTSIDE RECORDS SUMMARY | 2024-08-17 16:28 | XMS_ITS | Encounter Summary ---
Author Organization [employer] Address [address] [facility] 7t [place] [address] Care Team Providers Care Geological Scout Name Role Phone Jennie Murray MD Primary Care Provider Petra Wiley Primary Care Provider Willard Waters Unavailable [phone] September Unavailable Juan Sandra MD Unavailable [phone] Brigid Guy NP Unavailable Vicente Mooney MD Unavailable Beth Rai MD Unavailable [phone] Michell Espinoza Unavailable Encounter Details Date Type Department Care Team (Latest Contact Info) Description 09/12/[address] [facility] CONVERSIONS Dental, Provider, DDS Social History [...] Description 08/18/2024 1:30 PM EST Office Visit [facility] ADULT DENTAL [address] [place], [place] [phone] Venkat Barreto DDS [address] [place] [address] 09/08/2024 3:00 PM EDT Clinical Support [facility] DIABETES/NUTRITION [address] [place] [address] Tamanna Mcintyre, RD [address] [place] [address] 11/04/2024 11:15 AM EDT Office Visit [facility] MEDICINE [address] [place] [address] Petra Wiley FNP [address] [place] [address] 01/18/2025 3:00 PM EDT Office Visit [facility] ADULT DENTAL [address] [place] [address] Sanaz Nelson documented as of this encounter Visit Diagnoses Not on filedocumented in this encounter Care Teams Geological Scout Relationship Specialty Start Date End Date Jennie Murray MD [address] [place] [address] PCP - General Family Medicine 06/23/13 03/16/24 Petra Wiley FNP [address] [place] [address] PCP - General Family Medicine 03/17/24 Willard Waters [address] [place] [address] Rheumatology 05/17/24September [address] 3rd [place] [address] Gastroenterology 05/17/24 Juan Sandra MD [address] [place] [address] Hematology and Oncology 05/17/24 Brigid Guy NP [address] [place] [address] Urology 05/17/24 Vicente Mooney MD [address] [place] [address] [address] [place]HA BUNCH [address] Obstetrics and Gynecology 05/17/24 Beth Rai MD [address] [place] [address] Dr Rangel [address] [place] [address] Neurology 05/17/24 Michell Espinoza [address] 3rd [place] [address] Cardiology 05/17/24 Shelia Zheng Marble [employer]utter[employer] Hanker 09/26/23 documented as of this encounter
--- OUTSIDE RECORDS SUMMARY | 2024-08-17 16:28 | XMS_ITS | Referral Summary ---
Author Organization [facility] Address [address] [place] [address] Care Team Providers Care Support Team Assoc Name Role Phone Petra Wiley Primary Care Provider [phone] Encounters Date Type Department Care Team Description 08/06/2024 Telephone [facility] Dermatology Clinic 4th Floor [address] [facility], [place] [id number] Import And Export Clerk: Khadra Westbrook Telephone Intake, Staff PAC Appt Request - New 08/01/2024 Results Follow-Up [facility] Rheumatology Clinic [address] [place] [address] Import And Export Clerk: Newton Rangel DO 07/22/2024 12:00 PM EST Office Visit [facility] Rheumatology Clinic [address] [place] [address] Import And Export Clerk: Newton Rangel DO Erythromelalgia (HCC) (Primary Dx); Polyarthralgia 06/26/2024 Transcribe Orders [facility] Physician Referral Services [address] [place] [address] Petra Wiley Subcutaneous mass of right upper extremity (Primary Dx); Subcutaneous mass of abdominal wall 05/20/2024 2:58 PM EST - 05/20/2024 11:59 PM EST Hospital Encounter [facility] XRay [address] [place] [address] DO Polyarthralgia Discharge Disposition: Home or Self Care () 05/20/2024 1:00 PM EST Office Visit [facility] Rheumatology Clinic [address] [place] [address] Import And Export Clerk: Newton Rangel DO Polyarthralgia (Primary Dx); Positive [...] Description 11/11/2024 12:00 PM EDT Office Visit [facility] Rheumatology Clinic [address] [place] [address] Import And Export Clerk: Newton Rangel DO [address] [place] [address] [place] [address] 02/09/2025 10:15 AM EDT Office Visit [facility] Dermatology Clinic 4th Floor [address] [facility], [place] [address] Import And Export Clerk: Hipolito Lei MD [address] [place] [address] Procedures * Due to [place] state law, this organization might not be [...] 3:31 PM EST Positive NURIA (antinuclear antibody) GZBA-1-[id number] I ANTIBODIES, IGG/IGA/IGM Routine 05/20/2024 3:31 PM [...] Last 3 Months Results * Due to [place] state law, this organization might not be sharing negative HIV tests. * Protein Electrophoresis w/Reflex to Immunofixation, Serum (07/22/2024 1:56 PM EST) Protein, Total 8.1 6.1 - 8.1 g/dL 07/28/2024 7:22 AM EST [facility] Albumin 4.8 3.8 - 4.8 g/dL 07/28/2024 7:22 AM EST [employer] [facility]NOST[facility] Alpha 1 Globulin 0.3 0.2 - 0.3 g/dL 07/28/2024 7:22 AM EST [facility] Alpha 2 Globulin 0.7 0.5 - 0.9 g/dL 07/28/2024 7:22 AM EST [facility] Beta 1 Globulin 0.6 0.4 - 0.6 g/dL 07/28/2024 7:22 AM EST [facility] Beta 2 Globulin 0.5 0.2 - 0.5 g/dL 07/28/2024 7:22 AM EST [facility] Gamma Globulin 1.2 0.8 - 1.7 g/dL 07/28/2024 7:22 AM EST [facility] Interpretation See Comments 07/28/2024 7:22 AM EST [facility] Comment: Normal Serum Protein Electrophoresis Pattern. No abnormal protein bands (M-protein) detected. Blood Structure of peripheral vein / Unknown Venipuncture / Unknown 07/22/2024 1:56 PM EST 07/22/2024 2:37 PM EST [facility]ative [facility] 07/28/2024 7:22 AM EST [facility] Received Date:[id number] [address] DO LAB BLOOD ORDERABLES Final Res ult Performing Organization Address City/[facility] Co de Phone Number [facility] [address] [facility] 3rd Floor, [place] [address], [place] [phone] [facility]rue [facility] [address] [facility] 3rd Floor, [place] [address], [place] [phone] * (ABNORMAL) Sedimentation Rate (07/22/2024 1:56 PM EST) Only the most recent of2 resultswithin the time period is included. Sed Rate 29(H) <20 mm/Hr mm/Hr 07/22/2024 2:52 PM EST [facility] CLINICAL PATHOLOGY LABORATORY Blood Structure of peripheral vein / Unknown Venipuncture / Unknown 07/22/2024 1:56 PM EST 07/22/2024 2:[address] DO LAB BLOOD ORDERABLES Final Res ult Performing Organization Address [facility]/ZIP Co de Phone Number [facility] CLINICAL PATHOLOGY LABORATORY [address] [place] [address], * (ABNORMAL) NURIA, Titer and Pattern (05/20/2024 3:31 PM EST) NURIA Titer 1 1:640(H) titer 05/22/2024 12:31 PM EST [employer] [facility] Comment: ?Reference Range ?<1:40 ?Negative ?1:40-1:80 ?Low Antibody Level ?>1:80 ?Elevated Antibody Level NURIA Pattern 1 Nuclear, Dense Fine Speckled( A) 05/22/2024 12:31 PM EST [employer] Comment: Dense fine speckled pattern is seen in normal individuals and rarely associated with systemic lupus erythematosis (SLE), Sjogren's syndrome and systemic sclerosis. AC-2: Dense Fine Speckled International Consensus on NURIA Patterns (https://doi.org/10.1515/vcqa-6324-0513) Blood Structure of peripheral vein / Unknown Venipuncture / Unknown 05/20/2024 3:31 PM EST 05/20/2024 3:45 PM EST [facility] EVASIERRA [facility] - 05/22/2024 12:31 PM EST [facility] Received Date: [address] Street DO LAB BLOOD ORDERABLES Final Res ult SLIM ENDERS [address] [facility] 3rd Floor, [place] [address], [employer] [address] [facility] 3rd Floor, [place] [address], * Cardiolipin Antibodies, IgG/IgM/IgA (05/20/2024 3:31 PM EST) Cardiolipin Ab IgA <2.0 APL-U/mL 2023 2:07 PM EST [employer] Comment: Value ?Interpretation ----- ? < 20.0 ? Antibody not detected > or = 20.0 ?Antibody detected Cardiolipin Ab IgG <2.0 GPL-U/mL 2023 2:07 PM EST [employer] Comment: Value ?Interpretation ----- ? < 20.0 ? Antibody not detected > or = 20.0 ?Antibody detected Cardiolipin Ab IgM <2.0 MPL-U/mL 2023 2:07 PM EST [employer] Comment: Value ?Interpretation ----- ? < 20.0 [...] aging. For additional information, please refer to http://education.Moz[employer]/faq/AGW210 (This link is being provided for informational/ educational purposes only.) Blood Structure of peripheral vein / Unknown Venipuncture / Unknown 05/20/2024 3:31 PM EST 05/20/2024 3:45 PM EST Narrative SL[facility] WINTER - 05/21/2024 2:07 PM EST [facility] Received Date: us [address] DO LAB BLOOD ORDERABLES Final Res ult [facility] [address] [facility] 3rd Floor, [place] [address], [place] [phone] [employer] [facility] [address] [facility] 3rd Floor, [place] [address], [place] [phone] * Complement C3c and C4c (05/20/2024 3:31 PM EST) Complement Component C3C 180 83 - 193 mg/dL 05/21/2024 1:53 AM EST [facility] Complement Component C4C 32 15 - 57 mg/dL 05/21/2024 1:53 AM EST [facility] [employer] [facility] Blood Structure of peripheral vein / Unknown Venipuncture / Unknown 05/20/2024 3:31 PM EST 05/20/2024 3:45 PM EST Narrative [facility] - 05/21/2024 1:53 AM EST [facility] Received Date: us [address] DO LAB BLOOD ORDERABLES Final Res ult [facility] [address] [facility] 3rd Floor, [place] [address], [facility]rue [facility] [address] [facility] 3rd Floor, [place] [address], * Lupus Anticoagulation Evaluation w/Reflex (05/20/2024 3:31 PM EST) Lupus Anticoagulant See Comments 05/22/2024 7:11 AM EST [facility] CHANTILLY (PILI) Comment: A Lupus Anticoagulant is not detected. Reference Range: ??Not Detected For additional information, please refer to http://education.Moz[employer]te [employer]/faq/IKA19c9 (This link is being provided for informational/ [...] BLOOD ORDERABLES Final Res ult SLIM SANTIAGO) [address] [place] [address], [place] * Cyclic citrul peptide antibody, IgG (05/20/2024 3:31 PM EST) Cyclic Citrullinated Peptide (CCP) Ab (IgG) <16 UNITS 05/21/2024 10:26 PM EST [employer] Comment: Reference Range Negative: ?<20 Weak Positive: ? 20-39 Moderate Positive: ?? 40-59 Strong Positive: ? >59 Blood Structure of peripheral vein / Unknown Venipuncture / Unknown 05/20/2024 3:31 PM EST 05/20/2024 3:45 PM EST Narrative SL[facility] ENDERS - 05/21/2024 10:26 PM EST [facility] Received Date: Newton Yenifer DO LAB BLOOD ORDERABLES Final Res ult [facility] [address] [facility] 3rd Floor, [place] [address], [place] [phone] tr[facility]rue [facility] [address] [facility] 3rd Floor, [place] [address], [place] [phone] * (ABNORMAL) NURIA Screen, IFA, w/Reflex to Titer & Pattern (05/20/2024 3:31 PM EST) NURIA Screen, IFA POSITIVE (A) NEGATIVE 05/22/2024 12:31 PM EST [employer] [facility] Comment: NURIA IFA is a first line screen for detecting the presence of up to approximately 150 autoantibodies in various autoimmune diseases. A positive NURIA IFA result is suggestive of autoimmune disease and reflexes to titer and pattern. Further laboratory testing may be considered if clinically indicated. For additional information, please refer to http://education.engageSimply/faq/JHU943 (This link is being provided for informational/ educational purposes only.) ?? Blood Structure of peripheral vein / Unknown Venipuncture / Unknown 05/20/2024 3:31 PM EST 05/20/2024 3:45 PM EST Narrative [facility] - 05/22/2024 12:31 PM EST [facility] Received Date: [address] DO LAB BLOOD ORDERABLES Final Res ult [facility] [address] [facility] 3rd Floor, [place] [address], [facility]rue [facility] [address] [facility] 3rd Floor, [place] [address], * Eiqo-7-Juxqvqwmjkur I Antibodies, IgG/IgA/IgM (05/20/2024 3:31 PM EST) Beta2-Glycoprotein I (IgG) <2.0 <20.0 U/mL 05/25/2024 8:22 PM EST [facility] R[facility] (PILI) Comment: Value ?Interpretation ----- ? < 20.0 ? Antibody not detected > or = 20.0 ?Antibody detected Beta2-Glycoprotein I (IgM) <2.0 <20.0 U/mL 05/25/2024 8:22 PM EST [facility]hma (PILI) Comment: Value ?Interpretation ----- ? < [...] aging. For additional information, please refer to http://education.Moz[employer] Pte Ltd/faq/MBS154 (This link is being provided for informational/ educational purposes only.) ? Blood Structure of peripheral vein / Unknown Venipuncture / Unknown 05/20/2024 3:31 PM EST 05/20/2024 3:45 PM EST Narrative [facility] WINTER - 05/25/2024 8:22 PM EST [facility] Received Date: us [address] DO LAB BLOOD ORDERABLES Final Res ult SLIM WINTER [address] [place] [address] 3rd Floor, [place] [address], [employer] [facility]) [address] [place], [place] , [place] * Rheumatoid factor (05/20/2024 3:31 PM EST) Rheumatoid Factor <10 <14 IU/mL 05/20/2024 9:54 PM EST [facility] Blood Structure of peripheral vein / Unknown Venipuncture / Unknown 05/20/2024 3:31 PM EST 05/20/2024 3:45 PM EST Narrative [facility] - 05/20/2024 9:54 PM EST [facility] Received Date: Newton [employer] LAB BLOOD ORDERABLES Final Res ult Performing Organization Address City/[facility]/ZIP Co de Phone Number [facility] [address] [facility] 3rd Floor, [place] [address], [place] [phone] tr[facility]rue [facility] [address] [facility] 3rd Floor, [place] [address], [place] [phone] * C-reactive protein (05/20/2024 3:31 PM EST) Pathologist [facility] C Reactive Protein <3.0 <=9.9 mg/L 05/20/2024 4:11 PM EST [facility] CLINICAL PATHOLOGY LABORATORY Blood Structure of peripheral vein / Unknown Venipuncture / Unknown 05/20/2024 3:31 PM EST 05/20/2024 3:45 PM EST [employer] LAB BLOOD ORDERABLES Final Res ult Performing Organization Address City/[facility]/ZIP Co de Phone Number [facility] CLINICAL PATHOLOGY LABORATORY [address] [place] [address], * NURIA Specific Antibody w/Reflex to [place] (05/20/2024 3:31 PM EST) Pathologist [facility] NURIA Screen, Immunoassay NEGATIVE NEGATIVE 05/21/2024 2:12 PM EST [facility]rue [facility] Comment: A negative NURIA Multiplex indicates the absence of detectable antibodies to component analytes consisting of double stranded DNA (dsDNA), chromatin, ribonucleoprotein (UNLOADING CHECKER), Jamison/UNLOADING CHECKER (Sm/UNLOADING CHECKER), Jamison (Sm), SS-A, SS-B, Laura-1, centromere B, Scl-70 and ribosomal P. A negative result should be interpreted in the context of the clinical and laboratory findings and does not rule out autoimmune disease characterized by other autoantibody specificities such as rheumatoid arthritis, autoimmune hepatitis, primary biliary cirrhosis, autoimmune thyroiditis, Amboy's disease, pernicious anemia, autoimmune neuropathies, vasculitis, celiac disease, and bullous disease. For additional information, please refer to http://education.engageSimply/faq/LFZ267 (This link is being provided for informational/ educational purposes only.) ?? Blood Structure of peripheral vein / Unknown Venipuncture / Unknown 05/20/2024 3:31 PM EST 05/20/2024 3:45 PM EST Narrative [facility] - 05/21/2024 2:12 PM EST [facility] Received Date: [employer] DO LAB BLOOD ORDERABLES Final Res ult Performing Organization Address City/[facility]/ZIP Co de Phone Number [facility] [address] [facility] 3rd Floor, [place] [address], [place] [phone] tr[facility]rue [facility] [address] [facility] [address]rd [facility], [place] [address], [place] [phone] * CK (05/20/2024 3:31 PM EST) CK 55 38 - 206 U/L 05/20/2024 4:11 PM EST [facility] PATHOLOG[facility] LABOR[facility] Blood Structure of peripheral vein / Unknown Venipuncture / Unknown 05/20/2024 3:31 PM EST 05/20/2024 3:45 PM EST [employer] DO LAB BLOOD ORDERABLES Final Res ult [facility] PATHOLOGY LABORATORY [address] [place] [address], [place] * XR Foot 3+ vw Right [...] obtain the completed interpretation. ? Workstation ID: [id number] Narrative 05/20/2024 3:47 PM EST COMPARISON: ??There [...] normal limits. No spondyloarthropathy Resulting Agency Comment [id number] Procedure Note Saritha Fabian MD - 05/20/2024 [...] possible to obtain thecompleted interpretation. Workstation ID: [id number] us [address] DO IMG XR PROCEDURES [...] obtain the completed interpretation. ? Workstation ID: [id number] Narrative 05/20/2024 3:47 PM EST COMPARISON: ??There [...] normal limits. No spondyloarthropathy Resulting Agency Comment [id number] Procedure Note Saritha Fabian MD - 05/20/2024 [...] possible to obtain thecompleted interpretation. Workstation ID: [id number] [address] DO IMG XR PROCEDURES [...] obtain the completed interpretation. ? Workstation ID: [id number] Narrative 05/20/2024 3:47 PM EST COMPARISON: ??There [...] normal limits. No spondyloarthropathy Resulting Agency Comment [id number] Procedure Note Saritha Fabian MD - 05/20/2024 [...] possible to obtain thecompleted interpretation. Workstation ID: [id number] us Newton Yenifer DO IMG XR PROCEDURES [...] obtain the completed interpretation. ? Workstation ID: [id number] Narrative 05/20/2024 3:47 PM EST COMPARISON: ??There [...] normal limits. No spondyloarthropathy Resulting Agency Comment [id number] Procedure Note Saritha Fabian MD - 05/20/2024 [...] possible to obtain thecompleted interpretation. Workstation ID: [id number] [address] DO IMG XR PROCEDURES [...] obtain the completed interpretation. ? Workstation ID: [id number] Narrative 05/20/2024 3:47 PM EST COMPARISON: ??There [...] normal limits. No spondyloarthropathy Resulting Agency Comment [id number] Procedure Note Saritha Fabian MD - 05/20/2024 [...] possible to obtain thecompleted interpretation. Workstation ID: [id number] [address] DO IMG XR PROCEDURES Final Result from Last 3 [place] [address] [facility] Care Teams Support Team Assoc Relationship Specialty Start Date End Date Petra Wiley [address] [place] [address] PCP - General Family Medicine 03/19/24
--- OUTSIDE RECORDS SUMMARY | 2024-08-17 16:28 | XMS_ITS | Encounter Summary ---
Author Organization [employer] Address [address] [facility] 7t [place] [address] Care Team Providers Care Data Keyer Name Role Phone Petra Wiley NIC Primary Care Provider Willard Waters Unavailable [phone] September Unavailable Juan Sandra MD Unavailable [phone] Brigid Guy NP Unavailable Vicente Mooney MD Unavailable Beth Rai MD Unavailable [phone] Michell Espinoza Unavailable Encounter Details Date Type [...] Description 08/18/2024 1:30 PM EST Office Visit [facility] ADULT DENTAL [address] [place] [address] Venkat Barreto DDS [address] [place] [address] 09/08/2024 3:00 PM EDT Clinical Support [facility] DIABETES/NUTRITION [address] [place] [address] Tamanna Mcintyre, RD [address] [place] [address] 11/04/2024 11:15 AM EDT Office Visit [facility] MEDICINE [address] [place] [address] Petra Wiley FNP [address] [place] [address] 01/18/2025 3:00 PM EDT Office Visit [facility] ADULT DENTAL [address] [place] [address] Sanaz Nelson documented as of this encounter Visit Diagnoses Not on filedocumented in this encounter Additional Health Concerns Assessment Noted Time PHQ-9 Depression Total Score: 13 03/16/ 024 3:11 PM EDT documented as of this encounter Care Teams Data Keyer Relationship Specialty Start Date End Date Petra Wiley FNP [address] [place] [address] PCP - General Family Medicine 03/17/24 Willard Waters [address] [place] [address] Rheumatology 05/17/24 VictoriaSeptember [address] [facility] 3rd [place] [address] Gastroenterology 05/17/24 Juan Sandra MD [address] [place] [address] Hematology and Oncology 05/17/24 Brigid Guy NP [address] [facility] [address] [place] [address] Urology 05/17/24 Vicente Mooney MD [address] [place] [address] [address] [place] [address] Obstetrics and Gynecology 05/17/24 Beth Rai MD [address] [place] [address] [address] [place] [address] Neurology 05/17/24 Michell Espinoza [address] [facility] [address] [place] [address] Cardiology 05/17/24 Shelia Zheng [employer] AgentLinux Systems Engineer 09/26/23 documented as of this encounter
--- OUTSIDE RECORDS SUMMARY | 2024-08-17 16:28 | XMS_ITS | Encounter Summary ---
Author Organization [facility] Address [address] [place] [address] Care Team Providers Care Under Cutter Name Role Phone Petra Wiley Primary Care Provider [phone] Encounter Details Date Type Department Care Team (Late Contact Info) Description 08/01/2024 Results Follow-Up [facility] Rheumatology Clinic [address] [place] [address] Photoengraving Proofer: Newton Rangel DO [address] [place] [address] Social History Tobacco Use Types Packs/Day Years [...] Description 11/11/2024 12:00 PM EDT Office Visit [facility] Rheumatology Clinic [address] [place] [address] Photoengraving Proofer: Newton Rnagel DO [address] [place] [address] 02/09/2025 10:15 AM EDT Office Visit [facility] Dermatology Clinic 4th Floor [address] [facility], Fourth [place] [address] Photoengraving Proofer: Hipolito Lei MD [address] [place] [address] documented as of this encounter Visit Diagnoses Not on filedocumented in this encounter Care Teams Under Cutter Relationship Specialty Start Date End Date Petra Wiley [address] [place] [address] PCP - General Family Medicine 03/19/24 documented as of this encounter
--- OUTSIDE RECORDS SUMMARY | 2024-08-17 16:28 | XMS_ITS | Encounter Summary ---
Author Organization [employer] Address 75 [facility] 7t [place] [address] Care Team Providers Care Clark Driver Name Role Phone Petra Wiley NIC Primary Care Provider Willard Waters Unavailable [phone] September Unavailable Juan Sandra MD Unavailable [phone] Brigid Guy NP Unavailable Vicente Mooney MD Unavailable Beth Rai MD Unavailable Michell Espinoza Unavailable Reason for Visit * Reason Comments Eyelid Lesion Encounter Details Date Type Department Care Team (Late st Contact Info) Description 08/04/2024 2:30 PM EST Office Visit [facility] OPTOMETRY [address] [place], [place] [id number] Waqas, Cristine, OD [address] [place], [place] [id number] Hordeolum internum of left lower eyelid (Primary [...] Description 08/18/2024 1:30 PM EST Office Visit [facility] ADULT DENTAL [address] [place] [address] Venkat Barreto DDS [address] [place] [address] 09/08/2024 3:00 PM EDT Clinical Support [facility] DIABETES/NUTRITION 230 [place] [address] [place] [address] 11/04/2024 11:15 AM EDT Office Visit [facility] MEDICINE 230 [place] [address] Petra Wiley FNP [address] [place] [address] 01/18/2025 3:00 PM EDT Office Visit [facility] CH[facility] ADULT DENTAL [address] [place] [address] Sanaz Nelson documented as of this encounter Visit Diagnoses Diagnosis Hordeolum internum of left lower eyelid- Primary Dry eyes, bilateral Hyperopia of right eye documented in this encounter Additional Health Concerns Assessment Noted Time PHQ-9 Depression Total Score: 13 024 3:11 PM EDT documented as of this encounter Care Teams Clark Driver Relationship Specialty Start Date End Date Petra Wiley FNP [address] [place] [address] PCP - General Family Medicine 03/17/24 Willard Waters [address] [place] [address] Rheumatology 05/17/24 KesslerSeptember 11 [facility] 3rd [place] [address] Gastroenterology 05/17/24 Juan Sandra MD [address] [place] [address] Hematology and Oncology 05/17/24 Brigid Guy NP [address] [place] [address] Urology 05/17/24 Vicente Mooney MD [address] [place] [address] [address] [place] [address] Obstetrics and Gynecology 05/17/24 Beth Rai MD [address] [place] [address] 140 [place] [address] Neurology 05/17/24 Michell Espinoza [address] 3rd Floor [place] [address] Cardiology 05/17/24 Shelia Zheng Sliver CutterQuality Process Engineer 09/26/23 documented as of this encounter
--- OUTSIDE RECORDS SUMMARY | 2024-08-17 16:28 | XMS_ITS | Encounter Summary ---
Author Organization [facility] Address [address] [place] [address] Care Team Providers Care Subgrade Roller Operator Name Role Phone Petra Wiley Primary Care Provider [phone] Reason for Visit * Reason Onset Date Comments PAC Appt Request - New 08/06/2024 Encounter Details Date Type Department Care Team (Late st Contact Info) Description 08/06/2024 Telephone [facility] Dermatology Clinic [address]th [address] [place] [address], Fourth [place] [address] Gear Grinder: Khadra Westbrook Telephone Intake, Staff PAC Appt [...] sooner appointment. * Telephone Encounter - Vero Burnett - 08/06/2024 2:14 PM EST Pac unable to schedule pt for Erythromelalgia. DX is not listed in the dt. The pt states her hands turn red and hot. Pt would also like to be evaluated for hair loss. She would like to schedule in the closest location to [place]. Please reach out with a deaf interpreter. Thank you! documented in this encounter Plan of Treatment Upcoming Encounters Date Type Department Care Team (Late st Contact Info) Description 11/11/2024 12:00 PM EDT Office Visit [facility] Rheumatology Clinic [address] [place] [address] Gear Grinder: Newton Rangel DO [address] [facility] [place] [address] 02/09/2025 10:15 AM EDT Office Visit [facility] Dermatology Clinic 4th Floor [address] [facility], Fourth [place] [address] Gear Grinder: Hipolito Lei MD [address] [place] [address] documented as of this encounter Visit Diagnoses Not on filedocumented in this encounter Care Teams Subgrade Roller Operator Relationship Specialty Start Date End Date Petra Wiley 230 [place] [address] PCP - General Family Medicine 03/19/24 documented as of this encounter
--- OUTSIDE RECORDS SUMMARY | 2024-08-17 16:28 | XMS_ITS | Encounter Summary ---
Author Organization [facility] Address [address] [place] [address] Care Team Providers Care Patcher Name Role Phone Petra Wiley Primary Care Provider [phone] Reason for Referral * Surgical (Routine) - Pending Review Specialty Diagnoses / Procedures Referred By Mehreen linares Referred To Contact General Surgery Diagnoses Subcutaneous mass of right upper extremity Subcutaneous mass of abdominal wall [facility] Physician Referral Services [address] [place] [address] [facility] [address] [place] [address] Phone: tel: fax: Referral ID Status Reason Start Date Expiration Date Visits Requested Visits Authorized [id number] Pending Review Specialty Services Required 06/26/2024 12/26/2025 6 6 Encounter Details Date Type Department Care Team (Latest Contact Info) Description 06/26/2024 Transcribe Orders [facility] Physician Referral Services [address] [place] [address] Petra Wiley 230 [place] [address] Subcutaneous mass of right upper extremity (Primary [...] Description 11/11/2024 12:00 PM EDT Office Visit [facility] Rheumatology Clinic [address] [place] [address] Support Associate: Newton Rangel DO 119 [facility] [place] [address] 02/09/2025 10:15 AM EDT Office Visit [facility] Dermatology Clinic 4th Floor 281 [facility], [place] [address] Support Associate: Hipolito Lei MD 281 [place] [address] Scheduled Referrals Name Type Priority Associated Diagnoses Order Schedule Ambulatory referral to General Surgery Outpatient Referral Routine Subcutaneous mass of right upper extremity Subcutaneous mass of abdominal wall Expected: 06/26/2024, Expires: 12/24/2024 documented as of this encounter Visit Diagnoses Diagnosis Subcutaneous mass of right upper extremity- Primary Subcutaneous mass of abdominal wall documented in this encounter Care Teams Patcher Relationship Specialty Start Date End Date Petra Wiley [address] [place] [address] PCP - General Family Medicine 03/19/24 documented as of this encounter
--- OUTSIDE RECORDS SUMMARY | 2024-08-17 16:28 | XMS_ITS | Encounter Summary ---
Author Organization [employer] Address 75 [facility] 7t [place] [address] Care Team Providers Care Signal Tester Name Role Phone Jennie Murray MD Primary Care Provider Petra Wiley Primary Care Provider Willard Waters Unavailable [phone] September Unavailable Juan Sandra MD Unavailable [phone] Brigid Guy NP Unavailable Viecnte Mooney MD Unavailable Beth Rai MD Unavailable [phone] Michell Espinoza Unavailable Reason for Visit * Reason Onset Date Comments Appointment Request 12/25/2023 Encounter Details Date Type Department Care Team (Late st Contact Info) Description 12/25/2023 Telephone [facility] MEDICINE [address] [place] [address] Jennie Murray MD [address] [place], [place] [phone] Appointment Request Social History Tobacco Use Types [...] 12/25/2023 1:07 PM EDT Tc from Patrice, career development director with [employer], calling to schedule appt for pt. Pt is awaiting transfer pt appt with Dr. Wiley in which film writer attempted to schedule but found no availability. Please contact Patrice at [phone]. documented in this encounter Plan of Treatment Upcoming Encounters Date Type Department Care Team (Late st Contact Info) Description 08/18/2024 1:30 PM EST Office Visit [facility] ADULT DENTAL [address] [place], [place] [phone] Venkat Barreto DDS [address] [place], [place] [phone] 09/08/2024 3:00 PM EDT Clinical Support [facility] DIABETES/NUTRITION [address] [place] [address] Tamanna Mcintyre, RD [address] [place] [address] 11/04/2024 11:15 AM EDT Office Visit [facility] MEDICINE [address] [place] [address] Petra Wiley FNP [address] [place] [address] 01/18/2025 3:00 PM EDT Office Visit [facility] CHC ADULT DENTAL 505 [place] [address] Sanaz Nelson documented as of this encounter Visit Diagnoses Not on filedocumented in this encounter Additional Health Concerns Assessment Noted Time PHQ-9 Depression Total Score: 0 07/04/19 23 3:01 PM EST documented as of this encounter Care Teams Signal Tester Relationship Specialty Start Date End Date Jennie Murray MD 230 [place] [address] PCP - General Family Medicine 06/23/13 03/16/24 Petra Wiley FNP [address] [place] [address] PCP - General Family Medicine 03/17/24 Willard Waters [address] [place] [address] Rheumatology 05/17/24 Victoria Sumaya [address] 3rd [place] [address] Gastroenterology 05/17/24 Juan Sandra MD 575 [place] [address] Hematology and Oncology 05/17/24 Brigid Guy NP [address] [place] [address] Urology 05/17/24 Vicente Mooney MD [address] [place] [address] [address] [place] [address] Obstetrics and Gynecology 05/17/24 Beth Rai MD [address] [place] [address] [place] [address] Neurology 05/17/24 Michell Espinoza [address] [place] [address] Drive 3rd Floor [place] [address] Cardiology 05/17/24 Shelia Zheng Nail ProfessionalFurniture Sales Consultant 09/26/23 documented as of this encounter
--- OUTSIDE RECORDS SUMMARY | 2024-08-17 16:29 | XMS_ITS | Encounter Summary ---
Author Organization [employer] Address 75 [facility] 7t [place] [address] Care Team Providers Care Sales Driver Name Role Phone Petra Wiley NIC Primary Care Provider [phone] Willard Waters Unavailable [phone] September Unavailable Juan Sandra MD Unavailable [phone] Brigid Guy NP Unavailable Vicente Mooney MD Unavailable Beth Rai MD Unavailable [phone] Michell Espinoza Unavailable Encounter Details Date Type [...] Description 08/18/2024 1:30 PM EST Office Visit [facility] ADULT DENTAL 230 [place] [address] Venkat Barreto DDS [address] [place] [address] 09/08/2024 3:00 PM EDT Clinical Support [facility] DIABETES/NUTRITION 230 [place] [address] Tamanna Mcintyre, RD 230 [place] [address] 11/04/2024 11:15 AM EDT Office Visit [facility] MEDICINE 230 [place] [address] Petra Wiley FNP 505 [place] [address] 01/18/2025 3:00 PM EDT Office Visit [facility] ADULT DENTAL 505 [place] [address] Sanaz Nelson documented as of this encounter Visit Diagnoses Not on filedocumented in this encounter Additional Health Concerns Assessment Noted Time PHQ-9 Depression Total Score: 13 03/16/ 024 3:11 PM EDT documented as of this encounter Care Teams Sales Driver Relationship Specialty Start Date End Date Petra Wiley FNP 230 [place] [address] PCP - General Family Medicine 03/17/24 Willard Waters [address] [place] [address] Rheumatology 05/17/24 VictoriaSeptember 11 [facility] 3rd [place] [address] Gastroenterology 05/17/24 Juan Sandra MD [address] [place] [address] Hematology and Oncology 05/17/24 Brigid Guy NP 10 [facility] [address] [place] [address] Urology 05/17/24 Vicente Mooney MD [address] [place] [address] [address] [place] [address] Obstetrics and Gynecology 05/17/24 Beth Rai MD [address] [place] [address] 140 [place] [address] Neurology 05/17/24 Michell Espinoza 11 [facility] 3rd [place] [address] Cardiology 05/17/24 Shelia Zheng Station UsherRadiology Rn 09/26/23 documented as of this encounter
--- OUTSIDE RECORDS SUMMARY | 2024-08-17 16:29 | XMS_ITS | Encounter Summary ---
Author Organization [employer] Address 75 [facility] 7t [place] [address] Care Team Providers Care Money Room Supervisor Name Role Phone Petra Wiley OFFSET PRINTER Primary Care Provider Willard Waters Unavailable [phone] Kessler, September Unavailable Juan Sandra MD Unavailable [phone] Brigid Guy NP Unavailable Vicente Mooney MD Unavailable Beth Rai MD Unavailable [phone] Michell Espinoza Unavailable Encounter Details Date Type Department Care Team (Latest Contact Info) Description 07/20/2024 2:00 PM EST Clinical Support [facility] DIABETES/NUTRITION 230 [place], [place] [phone] Tamanna Mcintyre, RD 230 [place], [place] [phone] BMI 35.0-35.9,adult (Primary Dx) Social History Tobacco [...] education assessment appointment with RD. Pt refused grooming assistant. Pt said she understands RD. RD didn't [...] Description 08/18/2024 1:30 PM EST Office Visit [facility] ADULT DENTAL 230 [place] [address] Venkat Barreto DDS [address] [place] [address] 09/08/2024 3:00 PM EDT Clinical Support [facility] DIABETES/NUTRITION 230 [place] [address] [place] [address] 11/04/2024 11:15 AM EDT Office Visit [facility] MEDICINE [address] [place] [address] Petra Wiley FNP 505 [place] [address] 01/18/2025 3:00 PM EDT Office Visit [facility] ADULT DENTAL 505 [place] [address] Sanaz Nelson documented as of this encounter Visit Diagnoses Diagnosis BMI 35.0-35.9,adult- Primary documented in this encounter Additional Health Concerns Assessment Noted Time PHQ-9 Depression Total Score: 13 03/16/ 024 3:11 PM EDT documented as of this encounter Care Teams Money Room Supervisor Relationship Specialty Start Date End Date Petra Wiley FNP [address] [place] [address] PCP - General Family Medicine 03/17/24 Willard Waters [address] Rheumatology 05/17/[address] 3rd [place] [address] Gastroenterology 05/17/24 Juan Sandra MD 575 [place] [address] Hematology and Oncology 05/17/24 Brigid Guy NP [address] [place] [address] Urology 05/17/24 Vicente Mooney MD [address] [place] [address] Obstetrics and Gynecology 05/17/24 Beth Rai MD [address] [place] [address] [place] [address] Neurology 05/17/24 Michell Espinoza [address] 3rd [place] [address] Cardiology 05/17/24 Shelia Zheng Account ManagerTop Dyeing Machine Loader 09/26/23 documented as of this encounter
--- OUTSIDE RECORDS SUMMARY | 2024-08-17 16:29 | XMS_ITS | Encounter Summary ---
Author Organization [employer] Address 75 [facility] 7t [place] [address] Care Team Providers Care Tube Filler Name Role Phone Petra Wiley Primary Care Provider Willard Waters Unavailable [phone] KesslerSeptember Unavailable Juan Sandra MD Unavailable [phone] Brigid Guy NP Unavailable Vicente Mooney MD Unavailable Beth Rai MD Unavailable Michell Espinoza Unavailable Encounter Details Date Type Department Care Team (Late st Contact Info) Description 05/01/2024 Patient Outreach [facility] MEDICINE [address] [place] [address] Petra Wiley FNP [address] [place], [place] [phone] Social History Tobacco Use Types Packs/Day Years [...] Description 08/18/2024 1:30 PM EST Office Visit [facility] ADULT DENTAL [address] [place] [address] Venkat Barreto DDS [address] [place] [address] 09/08/2024 3:00 PM EDT Clinical Support [facility] DIABETES/NUTRITION [address] [place] [address] [place] [address] 11/04/2024 11:15 AM EDT Office Visit [facility] MEDICINE [address] [place] [address] Petra Wiley FNP 505 [place] [address] 01/18/2025 3:00 PM EDT Office Visit [facility] CHC ADULT DENTAL [address] [place] [address] Sanaz Nelson documented as of this encounter Visit Diagnoses Not on filedocumented in this encounter Additional Health Concerns Assessment Noted Time PHQ-9 Depression Total Score: 13 03/16/ 024 3:11 PM EDT documented as of this encounter Care Teams Tube Filler Relationship Specialty Start Date End Date Petra Wiley FNP [address] [place] [address] PCP - General Family Medicine 03/17/24 Willard Waters [address] [place] [address] Rheumatology 05/17/24 Sumaya Kessler [address] [place] [address] Gastroenterology 05/17/24 Juan Sandra MD [address] [place] [address] Hematology and Oncology 05/17/24 Brigid Guy NP 10 [facility] [address] [place] [address] Urology 05/17/24 Vicente Mooney MD [address] [place] [address] [address] [place] [address] Obstetrics and Gynecology 05/17/24 Beth Rai MD [address] [place] [address] 140 [place] [address] Neurology 05/17/24 Michell Espinoza [address] [place] [address] Cardiology 05/17/24 Shelia hZeng Furnace PuncherHigh School French Teacher 09/26/23 documented as of this encounter
--- OUTSIDE RECORDS SUMMARY | 2024-08-17 16:29 | XMS_ITS | Encounter Summary ---
Author Organization [employer] Address 75 [facility] 7t [place] [address] Care Team Providers Care Yellow Pages Space Salesperson Name Role Phone Petra Wiley NIC Primary Care Provider Willard Waters Unavailable [phone] September Unavailable Juan Sandra MD Unavailable [phone] Brigid Guy NP Unavailable Vicente Mooney MD Unavailable Beth Rai MD Unavailable [phone] Michell Espinoza Unavailable Encounter Details Date Type [...] Description 08/18/2024 1:30 PM EST Office Visit [facility] ADULT DENTAL [address] [place] [address] Venkat Barreto DDS [address] [place] [address] 09/08/2024 3:00 PM EDT Clinical Support [facility] DIABETES/NUTRITION [address] [place] [address] Tamanna Mcintyre, RD [address] [place] [address] 11/04/2024 11:15 AM EDT Office Visit [facility] MEDICINE [address] [place] [address] Petra Wiley FNP 505 [place] [address] 01/18/2025 3:00 PM EDT Office Visit [facility] ADULT DENTAL 505 [place] [address] Sanaz Nelson documented as of this encounter Visit Diagnoses Not on filedocumented in this encounter Additional Health Concerns Assessment Noted Time PHQ-9 Depression Total Score: 13 03/16/ 024 3:11 PM EDT documented as of this encounter Care Teams Yellow Pages Space Salesperson Relationship Specialty Start Date End Date Petra Wiley FNP [address] [place] [address] PCP - General Family Medicine 03/17/24 Willard Waters [address] [place] [address] Rheumatology 05/17/24 VictoriaSeptember 11 [facility] 3rd [place] [address] Gastroenterology 05/17/24 Juan Sandra MD [address] [place] [address] Hematology and Oncology 05/17/24 Brigid Guy NP 10 [facility] [address] [place] [address] Urology 05/17/24 Vicente Mooney MD [address] [place] [address] [address] [place] [address] Obstetrics and Gynecology 05/17/24 Beth Rai MD [address] [place] [address] 140 [place] [address] Neurology 05/17/24 Michell Espinoza 11 [facility] 3rd [place] [address] Cardiology 05/17/24 Shelia Zheng Scrap Drop EngineerInterventional Nurse 09/26/23 documented as of this encounter
--- OUTSIDE RECORDS SUMMARY | 2024-08-17 16:29 | XMS_ITS | Encounter Summary ---
Author Organization [employer] Address 75 [facility] 7t [place] [address] Care Team Providers Care Painter Airbrush Name Role Phone Petra Wiley NIC Primary Care Provider [phone] Willard Waters Unavailable [phone] Victoria September Unavailable Juan Sandra MD Unavailable [phone] Brigid Guy NP Unavailable Vicente Mooney MD Unavailable Beth Rai MD Unavailable Michell Espinoza Unavailable Reason for Visit * Reason Onset Date Comments Chart Prep 07/28/2024 Encounter Details Date Type Department Care Team (Late st Contact Info) Description 07/28/2024 Telephone [facility] MED & PEDS 505 [place], [place] [phone] Shireen Eagle MA Chart Prep Social History [...] Description 08/18/2024 1:30 PM EST Office Visit [facility] ADULT DENTAL 230 [place] [address] Venkat Barreto DDS [address] [place] [address] 09/08/2024 3:00 PM EDT Clinical Support [facility] DIABETES/NUTRITION [address] [place] [address] Tamanna Mcintyre, ANGELINA 230 [place] [address] 11/04/2024 11:15 AM EDT Office Visit [facility] MEDICINE [address] [place] [address] Petra Wiley FNP [address] [place] [address] 01/18/2025 3:00 PM EDT Office Visit [facility] ADULT DENTAL 505 [place] [address] Sanaz Nelson documented as of this encounter Visit Diagnoses Not on filedocumented in this encounter Additional Health Concerns Assessment Noted Time PHQ-9 Depression Total Score: 13 03/16/ 024 3:11 PM EDT documented as of this encounter Care Teams Painter Airbrush Relationship Specialty Start Date End Date Petra Wiley FNP [address] [place] [address] PCP - General Family Medicine 03/17/24 Willard Waters [address] [place] [address] Rheumatology 05/17/24September [address] 3rd [place] [address] Gastroenterology 05/17/24 Juan Sandra MD 575 [place] [address] Hematology and Oncology 05/17/24 Brigid Guy NP [address] [place] [address] Urology 05/17/24 Vicente Mooney MD [address] [place] [address] [address] [place] [address] Obstetrics and Gynecology 05/17/24 Beth Rai MD [address] [place] [address] [place] [address] Neurology 05/17/24 Michell Espinoza 11 [facility] 3rd [place] [address] Cardiology 05/17/24 Shelia Zheng Line Out ManMarketing Programs Manager 09/26/23 documented as of this encounter
--- OUTSIDE RECORDS SUMMARY | 2024-08-17 16:29 | XMS_ITS | Encounter Summary ---
Author Organization [employer] Address [address] [place] [address] 7t [place] [address] Care Team Providers Care Warehouse Receiver Name Role Phone Petra Wiley Primary Care Provider [phone] Willard Waters Unavailable [phone] September Unavailable Juan Sandra MD Unavailable [phone] Brigid Guy NP Unavailable Vicente Mooney MD Unavailable Beth Rai MD Unavailable Michell Espinoza Unavailable Reason for Referral * Consultation (Routine) - Authorized Specialty Diagnoses / Procedures Referred By Mehreen linares Referred To Contact Family Medicine Diagnoses Skin lesion of right arm Petra Wiley FNP [address] [place] [address] Phone: tel: fax: Referral ID Status Reason Start Date Expiration Date Visits Requested Visits Authorized [id number] Authorized Specialty Services Required 07/29/2024 07/29/2025 1 1 * Consultation (Routine) - Closed Specialty Diagnoses / Procedures Referred By Mehreen linares Referred To Contact Genetics Diagnoses Fibromyalgia NURIA positive Subcutaneous mass of abdominal wall Petra Wiley FNP [address] [place] [address] Phone: tel: fax: [address] Phone: tel: fax: Referral ID Status Reason Start Date Expiration Date V isits Requested Visits Authorized [id number] Closed Specialty Services Required 07/29/2024 07/29/2025 1 1 * Imaging (Routine) - Authorized Specialty Diagnoses / Procedures Referred By Mehreen linares Referred To Contact Radiology Diagnoses Breast pain, right Procedures BI US Breast Limited Right Petra Wiley FNP [address] [place] [address] Phone: tel: fax: [address] Phone: tel: fax: Referral ID Status Reason Start Date Expiration Date V isits Requested Visits Authorized [id number] Authorized 07/29/2024 07/29/2025 1 1 * Imaging (Routine) - Authorized Specialty Diagnoses / Procedures Referred By Mehreen linares Referred To Contact Radiology Diagnoses Breast pain, right Procedures BI Mammogram Diagnostic Tomosynthesis Right Petra Wiley FNP [address] [place] [address] Phone: tel: fax: [address] Phone: tel: fax: Referral ID Status Reason Start Date Expiration Date V isits Requested Visits Authorized [id number] Authorized 07/29/2024 07/29/2025 1 1 Encounter Details Date Type Department Care Team (Late st Contact Info) Description 07/29/2024 10:30 AM EST Office Visit [facility] MEDICINE [address] [place] [address] Petra Wiley FNP [address] [place] [address] Asthma, unspecified asthma severity, unspecified whether complicated, [...] PCP visit: 05/13/24 Weight management: Following with [facility] founder ceo & president. Has lost approx 10 lbs over the [...] report. No bleeding or discharge. Specialists: Rheum ([facility]) - Dr. Street: hx of (+) NURIA, fibromyalgia GI ([facility])- BLEACH CHLORINATOR Kessler: dysphagia, gastroparesis, GERD Heme/Onc ([facility])- Dr. Sandra: hx of PHUC, easy bruising Urology ([facility]) - BLEACH CHLORINATOR Guy 911 OPERATOR ([facility]) - Dr. Mooney Neuro ([facility]) - Dr. Rai Cardiology ([facility]) - BLEACH CHLORINATOR Olga Ortho ([facility]) Psych - hx bipolar disorder, JORDANA with [...] syndrome with constipation Overview Followed up [facility] GI - September POWDER HAND Continues Bentyl TID Continues Bisacodyl 10mg nightly Gastroparesis Overview Followed by [facility] GI Continues with the following medication regimen for multiple GI symptoms and conditions: Creon, famotidine, psyllium, dicyclomine, simethicone, and Dexliant Previous medications: carafate Genitourinary Abnormal uterine bleeding Overview Following with [facility] 911 OPER[address] - Dr. Mooney EMB performed 04/14/24. Path: [...] Overview -Previously: Lyrica 75mg nightly through [facility] Physiatry/Rheum -Lyrica rx [...] NURIA positive Overview Previous followed by [facility] Rheum - Dr. Waters May 2024: Established with [facility] Rheum - Dr. Street NURIA positive 2020: 1:160, anti dna, nicholas, ESR, CRP all wnl Relevant Orders Referral to Genetics Iron deficiency anemia Overview Lab Results Component Value Date HGB 11.5 (L) 03/18/2024 HGB 11.0 (L) 04/17/2021 HCT 36.5 (L) 03/18/2024 Following with [facility] Heme/Onc - Dr. [...] - Has consulted with Surgery team in [facility] for consideration of excision. Per [...] in size. Concerning signs/symptoms reviewed. Referred to [facility] Derm team Relevant Orders Referral to [facility] Derm Skin Adult Follow up: 3 months chronic conditions extended, sooner PRN documented in this encounter Miscellaneous Notes * Assessment & Plan Note - NIC Rudd - 07/29/2024 4:08 PM ESTAssociated Problem(s): Class 1 obesity with body mass index (BMI) of 32.0 to 32.9 in adult - Cont following with founder ceo & president and healthy lifestyle interventions * Assessment & [...] - Has consulted with Surgery team in [facility] for consideration of excision. Per [...] [facility] ADULT DENTAL [address] [place] [address] Venkat Barreto, DDS [address] [place] [address] 09/08/2024 3:00 PM EDT Clinical Support [facility] DIABETES/NUTRITION [address] [place] [address] Tamanna Mcintyre, RD [address] [place] [address] 11/04/2024 11:15 AM EDT Office Visit [facility] MEDICINE [address] [place] [address] Petra Wiley FNP [address] [place] [address] 01/18/2025 3:00 PM EDT Office Visit [facility] ADULT DENTAL [address] [place] [address] Sanaz Nelson Scheduled Orders Name Type Priority [...] Expected: 07/29/2024 (Approximate), Expires: 07/29/2025 Referral to [facility] Derm Skin Adult Outpatient Referral Routine [...] documented as of this encounter Care Teams Warehouse Receiver Relationship Specialty Start Date End Date Petra Wiley FNP [address] [place] [address] PCP - General Family Medicine 03/17/24 Willard Waters [address] [place] [address] Rheumatology 05/17/24September 11 [facility] 3rd [place] [address] Gastroenterology 05/17/24 Juan Sandra MD [address] [place] [address] Hematology and Oncology 05/17/24 Brigid Guy NP [address] [place] [address] Urology 05/17/24 Vicente Mooney MD [address] [place] [address] [address] [place] [address] Obstetrics and Gynecology 05/17/24 Beth Rai MD [address] [place] [address] [address] [place] [address] Neurology 05/17/24 Michell Espinoza [address] [place] [address] Drive 3rd [place] [address] Cardiology 05/17/24 Shelia Zheng Tube Bending Machine OperatorDrilling Field Specialist 09/26/23 documented as of this encounter
--- OUTSIDE RECORDS SUMMARY | 2024-08-17 16:29 | XMS_ITS | Encounter Summary ---
Author Organization [employer] Address [address] [facility] 7t [place] [address] Care Team Providers Care Audit Control Clerk Name Role Phone Petra Wiley NIC Primary Care Provider Willard Waters Unavailable [phone] September Unavailable Juan Sandra MD Unavailable [phone] Brigid Guy NP Unavailable Vicente Mooney MD Unavailable Beth Rai MD Unavailable [phone] Michell Espinoza Unavailable Encounter Details Date Type [...] Description 08/18/2024 1:30 PM EST Office Visit [facility] ADULT DENTAL [address] [place] [address] Venkat Barreto DDS [address] [place] [address] 09/08/2024 3:00 PM EDT Clinical Support [facility] DIABETES/NUTRITION [address] [place] [address] Tamanna Mcintyre, RD [address] [place] [address] 11/04/2024 11:15 AM EDT Office Visit [facility] MEDICINE [address] [place] [address] Petra Wiley FNP [address] [place] [address] 01/18/2025 3:00 PM EDT Office Visit [facility] ADULT DENTAL [address] [place] [address] Sanaz Nelson documented as of this encounter Visit Diagnoses Not on filedocumented in this encounter Additional Health Concerns Assessment Noted Time PHQ-9 Depression Total Score: 13 03/16/ 024 3:11 PM EDT documented as of this encounter Care Teams Audit Control Clerk Relationship Specialty Start Date End Date Petra Wiley FNP [address] [place] [address] PCP - General Family Medicine 03/17/24 Willard Waters [address] [place] [address] Rheumatology 05/17/[address] [facility] 3rd [place] [address] Gastroenterology 05/17/24 Juan Sandra MD [address] [place] [address] Hematology and Oncology 05/17/24 Brigid Guy NP [address] [facility] [address] [place] [address] Urology 05/17/24 Vicente Mooney MD [address] [place] [address] [address] [place] [address] Obstetrics and Gynecology 05/17/24 Beth Rai MD [address] [place] [address] 140 [place] [address] Neurology 05/17/[address] [facility] 3rd [place] [address] Cardiology 05/17/24 Shelia Zheng Immigration Services OfficerFire Protection Inspector 09/26/23 documented as of this encounter
--- OUTSIDE RECORDS SUMMARY | 2024-08-17 16:29 | XMS_ITS | Encounter Summary ---
Author Organization [employer] Address [address] [facility] 7t [place] [address] Care Team Providers Care Bi Application Developer Name Role Phone Petra Wiley CELL STRIPPER Primary Care Provider Willard Waters Unavailable [phone] Kessler, September Unavailable Juan Sandra MD Unavailable [phone] Brigid Guy NP Unavailable Vicente Mooney MD Unavailable Beth Rai MD Unavailable Michell Espinoza Unavailable Encounter Details Date Type Department Care Team (Latest Contact Info) Description 07/28/2024 1:30 PM EST Clinical Support [facility] DIABETES/NUTRITION [address] [place], [place] [phone] Tamanna Mcintyre, ANGELINA [address] [place], [place] [phone] BMI 35.0-35.9,adult (Primary Dx) Social History Tobacco [...] Pt is taking a enzyme capsule from [facility] Basic at each meal. In addition, Pt [...] Description 08/18/2024 1:30 PM EST Office Visit [facility] ADULT DENTAL [address] [place] [address] Venkat Barreto DDS [address] [place] [address] 09/08/2024 3:00 PM EDT Clinical Support [facility] DIABETES/NUTRITION [address] [place] [address] [place] [address] 11/04/2024 11:15 AM EDT Office Visit [facility] MEDICINE [address] [place] [address] Petra Wiley FNP [address] [place] [address] 01/18/2025 3:00 PM EDT Office Visit [facility] ADULT DENTAL [address] [place] [address] Sanaz Nelson documented as of this encounter Visit Diagnoses Diagnosis BMI 35.0-35.9,adult- Primary documented in this encounter Additional Health Concerns Assessment Noted Time PHQ-9 Depression Total Score: 13 03/16/ 024 3:11 PM EDT documented as of this encounter Care Teams Bi Application Developer Relationship Specialty Start Date End Date Petra Wiley FNP [address] [place] [address] PCP - General Family Medicine 03/17/24 Willard Waters [address] Rheumatology 05/17/[address] 3rd [place] [address] Gastroenterology 05/17/24 Juan Sandra MD [address] [place] [address] Hematology and Oncology 05/17/24 Brigid Guy NP [address] [place] [address] Urology 05/17/24 Vicente Mooney MD [address] [place] [address] Obstetrics and Gynecology 05/17/24 Beth Rai MD [address] [place] [address] [place] [address] Neurology 05/17/24 Michell Espinoza [address] [facility] [address] 3rd [place] [address] Cardiology 05/17/24 Shelia Zheng Insurance Risk AnalystSawmill Relief Worker 09/26/23 documented as of this encounter
--- OUTSIDE RECORDS SUMMARY | 2024-08-17 16:29 | XMS_ITS | Encounter Summary ---
Author Organization [employer] Address [address] [facility] 7t [place] [address] Care Team Providers Care County Judge Name Role Phone Petra Wiley NIC Primary Care Provider [phone] Willard Waters Unavailable [phone] September Unavailable Juan Sandra MD Unavailable [phone] Brigid Guy NP Unavailable Vicente Mooney MD Unavailable Beth Rai MD Unavailable Michell Espinoza Unavailable Reason for Visit * Reason Comments Dental Pain Upper left side Encounter Details Date Type Department Care Team (Late st Contact Info) Description 07/24/2024 2:30 PM EST Office Visit [facility] ADULT DENTAL [address] [place], [place] [phone] Venkat Barreto DDS [address] [place], [place] [phone] Social History Tobacco Use Types Packs/Day Years [...] female. Time Out: No data recorded Location: [facility] Tooth: #14 Procedure: Exam Verified the above with patient, assistant track coach, and provider. Confirmed via patient's chart, intraorally and by radiographs. Vascular Radiologist: not applicable Chief Complaint Patient presents with [...] each 2 times daily. 1 kit 0 mhqjbtnozp-yzlaqjhgkzymg-qdtqauum 50-325-40 MG tablet TOME ADRY TABLETA CADA OCHO HORAS CUANDO SEA NECESARIO FOR 30 DAYS cephalexin (Keflex) 500 MG capsule Take 1 capsule (500 mg) by mouth 3 times daily for 7 days. 21 capsule 0 cholecalciferol (Vitamin D-3) 25 MCG (1000 UT) tablet Take 1 tablet (25 mcg) by mouth Once per day.90 tablet 1 Creon 27944-530508 units capsule delayed-release particles capsule TOME ADRY [...] Irreversible pulpitis Assessment/Plan: RCT, Post and Core, [place] Prescriptions: Augmentin Pt tolerated procedure well, all questions answered. Dismissed in good condition. [place]: RCT #14 Silk Weaver: Whit La Dentist: Venkat Barreto DDS documented in this encounter Plan of Treatment Upcoming Encounters Date Type Department Care Team (Late st Contact Info) Description 08/18/2024 1:30 PM EST Office Visit [facility] ADULT DENTAL [address] [place] [address] Venkat Barreto DDS [address] [place] [address] 09/08/2024 3:00 PM EDT Clinical Support [facility] DIABETES/NUTRITION [address] [place] [address] Tamanna Mcintyre, RD [address] [place] [address] 11/04/2024 11:15 AM EDT Office Visit [facility] MEDICINE [address] [place] [address] Petra Wiley, STEVEDORING SUPERVISOR [address] [place] [address] 01/18/2025 3:00 PM EDT Office Visit [facility] ADULT DENTAL [address] [place] [address] Sanaz Nelson documented as of this encounter [...] documented as of this encounter Care Teams County Judge Relationship Specialty Start Date End Date Petra Wiley FNP [address] [place] [address] PCP - General Family Medicine 03/17/24 Willard Waters [address] [place] [address] Rheumatology 05/17/24KesslerSeptember 11 [facility] 3rd [place] [address] Gastroenterology 05/17/24 Juan Sandra MD [address] [place] [address] Hematology and Oncology 05/17/24 Brigid Guy NP [address] [facility] [address] [place] [address] Urology 05/17/24 Vicente Mooney MD [address] [place] [address] [address] [place] [address] Obstetrics and Gynecology 05/17/24 Beth Rai MD [address] [place] [address] 140 [place] [address] Neurology 05/17/24 Michell Espinoza 11 [facility] 3rd [place] [address] Cardiology 05/17/24 Shelia Zheng Tag Machine OperatorPyrotechnician 09/26/23 documented as of this encounter
--- OUTSIDE RECORDS SUMMARY | 2024-08-17 16:29 | XMS_ITS | Encounter Summary ---
Author Organization [employer] Address [address] [facility] 7t [place] [address] Care Team Providers Care Camera Machinist Name Role Phone Petra Wiley NIC Primary Care Provider Willard Waters Unavailable [phone] KesslerSeptember Unavailable Juan Sandra MD Unavailable [phone] Brigid Guy NP Unavailable Vicente Mooney MD Unavailable Beth Rai MD Unavailable Michell Espinoza Unavailable Reason for Visit * Reason Comments Eye Problem Encounter Details Date Type Department Care Team (Late st Contact Info) Description 07/24/2024 2:00 PM EST Office Visit [facility] [address] [place], [place] [phone] Sylvia Lemons MD [address] [place], [place] [phone] Hordeolum externum of left lower eyelid (Primary [...] times daily., Disp: 1 kit, Rfl: 0 bgywxfnvbb-rafzazycxbspc-xsncscud 50-325-40 MG tablet, TOME ADRY TABLETA CADA [...] day., Disp: 90 tablet, Rfl: 1 Creon 85275-401700 units capsule delayed-release particles capsule, TOME ADRY [...] per week., Disp: 2 mL, Rfl: 2 Mohawk Translation: Provided by [facility] staff member BRANDI Blackwell documented in this encounter Plan of Treatment Upcoming Encounters Date Type Department Care Team (Late st Contact Info) Description 08/18/2024 1:30 PM EST Office Visit [facility] ADULT DENTAL [address] [place] [address] Venkat Barreto DDS [address] [place] [address] 09/08/2024 3:00 PM EDT Clinical Support [facility] DIABETES/NUTRITION [address] [place] [address] [place] [address] 11/04/2024 11:15 AM EDT Office Visit [facility] MEDICINE [address] [place] [address] Petra Wiley FNP 505 [place] [address] 01/18/2025 3:00 PM EDT Office Visit [facility] ADULT DENTAL [address] [place] [address] Sanaz Nelson documented as of this encounter Visit Diagnoses Diagnosis Hordeolum externum of left lower eyelid- Primary documented in this encounter Additional Health Concerns Assessment Noted Time PHQ-9 Depression Total Score: 13 024 3:11 PM EDT documented as of this encounter Care Teams Camera Machinist Relationship Specialty Start Date End Date Petra Wiley FNP [address] [place] [address] PCP - General Family Medicine 03/17/24 Willard Waters [address] [place] [address] Rheumatology 05/17/24 Victoria Sumaya 11 [facility] 3rd [place] [address] Gastroenterology 05/17/24 Juan Sandra MD [address] [place] [address] Hematology and Oncology 05/17/24 Brigid Guy NP 10 [facility] [address] [place] [address] Urology 05/17/24 Vicente Mooney MD [address] [place] [address] [address] [place] [address] Obstetrics and Gynecology 05/17/24 Beth Rai MD [address] [place] [address] 140 [place] [address] Neurology 05/17/24 Michell Espinoza [address] [place] [address] 3rd [place] [address] Cardiology 05/17/24 Shelia Zheng Lab Animal TechnologistScript Girl 09/26/23 documented as of this encounter
--- OUTSIDE RECORDS SUMMARY | 2024-08-17 16:29 | XMS_ITS | Encounter Summary ---
Author Organization [facility] Address [address] [place] [address] Care Team Providers Care Marine Water Tender Name Role Phone Petra Wiley Primary Care Provider [phone] Reason for Referral * Consultation (Routine) - Pending Review Specialty Diagnoses / Procedures Referred By Mehreen linares Referred To Contact Dermatology Diagnoses Erythromelalgia (HCC) Newton Street DO [address] [place] [address] [place] [address] Phone: tel: fax: [facility] Dermatology Clinic 2nd Floor [address] [facility], [place] [address] Phone: tel: fax: Referral ID Status Reason Start Date Expiration Date Visits Requested Visits Authorized [id number] Pending Review Specialty Services Required 07/22/2024 01/21/2026 6 6 Reason for Visit * Reason Comments Follow-up Polyarthralgia * Consultation (Routine) - Authorized Specialty Diagnoses / Procedures Referred By Mehreen linares Referred To Contact Rheumatology Diagnoses Positive NURIA (antinuclear antibody) Kristen Sparrow MD [address] [place] [address] Phone: tel: fax: [facility] [address] [place] [address] Phone: tel: fax: Referral ID Status Reason Start Date Expiration Date Visits Requested Visits Authorized [id number] Authorized Specialty Services Required 03/19/2024 09/18/2025 6 6 Encounter Details Date Type Department Care Team (Latest Contact Info) Description 07/22/2024 12:00 PM EST Office Visit [facility] Rheumatology Clinic [address] [place] [address] Machinist/Machine Builder: Newton Rangel DO [address] [facility] [place] [address] Erythromelalgia (HCC) (Primary Dx); Polyarthralgia Social History [...] sent through Care Everywhere. * Slime-Danlos Syndrome (Taiwanese) documented in this encounter Progress Notes * Newton Street DO - 07/22/2024 12:15 PM EST [facility] Patient: Ambika Gleason Date of Service: 07/22/2024 Loc: [facility] Note entered by: Newton Street, Snuff Box Finisher Snuff Box Finisher Used: Yes Type of Snuff Box Finisher Used: Video Snuff Box Finisher Snuff Box Finisher Name/Number: CONSENT: I reviewed the use of Packet [employer] virtual scribing technology with the patient, and they consented to allowing an audio recording of the encounter for visit documentation purposes. Reason for Visit: Chief Complaint Patient presents with Follow-up Polyarthralgia History of Present Illness The patient presents for evaluation of pain in her jaw, hands, and feet. She is accompanied by an plant and instrument engineer. She reports experiencing severe pain in her [...] 75 mg but discontinued it when her fence machine operator left the practice. She has declined [...] [facility] [place]. Supplemental Information She has a fast heart rate and continues to see a doctor for gastroparesis. She has a new animal rehabilitator. She sometimes experiences tongue pain. MEDICATIONS Current: [...] 2 puffs by mouth 2 times daily. fuiywclvgl-hszpypydtjutm-xchqmlwn (FIORICET) 50-325-40 mg tablet TOME ADRY TABLETA [...] Center 11/11/2024 12:[address] [facility] Rheum [facility] 02/09/2025 10:15 AM Hipolito Crain MD [facility] 4 [facility] Thank you for involving us in [...] Description 11/11/2024 12:00 PM EDT Office Visit [facility] Rhe[facility]ology [facility] [address] [place] [address] Machinist/Machine Builder: Newton Rangel DO [address] [place] [address] [place] [address] 02/09/2025 10:15 AM EDT Office Visit [facility] Dermatology Clinic 4th Floor [address] [place] [address], [place] [address] Machinist/Machine Builder: Hipolito Lei MD [address] [place] [address] Scheduled Referrals Name Type Priority Associated Diagnoses Order Schedule Ambulatory referral to Dermatology Outpatient Referral Routine Erythromelalgia (HCC) Expected: 07/22/2024, Expires: 01/19/2025 documented as of this encounter Results * Due to [place] state law, this organization might not be sharing negative HIV tests. * Protein Electrophoresis w/Reflex to Immunofixation, Serum (07/22/2024 1:56 PM EST) Protein, Total 8.1 6.1 - 8.1 g/dL 07/28/2024 7:22 AM EST [facility] Albumin 4.8 3.8 - 4.8 g/dL 07/28/2024 7:22 AM EST [facility] Alpha 1 Globulin 0.3 0.2 - 0.3 g/dL 07/28/2024 7:22 AM EST [facility] Alpha 2 Globulin 0.7 0.5 - 0.9 g/dL 07/28/2024 7:22 AM EST [facility] [place] [facility] Beta 1 Globulin 0.6 0.4 - 0.6 g/dL 07/28/2024 7:22 AM EST [facility] Beta 2 Globulin 0.5 0.2 - 0.5 g/dL 07/28/2024 7:22 AM EST [facility] Gamma Globulin 1.2 0.8 - 1.7 g/dL 07/28/2024 7:22 AM EST [facility] Interpretation See Comments 07/28/2024 7:22 AM EST [facility] Comment: Normal Serum Protein Electrophoresis Pattern. No abnormal protein bands (M-protein) detected. Blood Structure of peripheral vein / Unknown Venipuncture / Unknown 07/22/2024 1:56 PM EST 07/22/2024 2:37 PM EST [facility] - 07/28/2024 7:22 AM EST [facility] Received Date: us Newton Street DO LAB BLOOD ORDERABLES Final Res ult [facility] [address] 3[address] Floor, [place] [address], [place] [phone] [facility] [address] [facility] 3rd Floor, [place] [address], [place] [phone] * (ABNORMAL) Sedimentation Rate (07/22/2024 1:56 PM EST) Sed Rate 29(H) <20 mm/Hr mm/Hr 07/22/2024 2:52 PM EST [facility] Blood Structure of peripheral vein / Unknown Venipuncture / Unknown 07/22/2024 1:56 PM EST 07/22/2024 2:37 PM EST us [address] DO LAB BLOOD ORDERABLES Final Res ult [facility] [address] [place] [address], documented in this encounter Visit Diagnoses Diagnosis Erythromelalgia (HCC)- Primary Erythromelalgia Polyarthralgia Pain in joint, multiple sites documented in this encounter Care Teams Marine Water Tender Relationship Specialty Start Date End Date Petra Wiley [address] [place] [address] PCP - General Family Medicine 03/19/24 documented as of this encounter
--- OUTSIDE RECORDS SUMMARY | 2024-08-17 16:29 | XMS_ITS | Encounter Summary ---
Author Organization [employer] Address [address] [facility] 7t [place] [address] Care Team Providers Care Principal Developer Name Role Phone Petra Wiley NIC Primary Care Provider Willard Waters Unavailable [phone] KesslerSeptember Unavailable Juan Sandra MD Unavailable [phone] Brigid Guy NP Unavailable Vicente Mooney MD Unavailable Beth Rai MD Unavailable Michell Espinoza Unavailable Reason for Visit * Reason Comments Routine Cleaning Dental Exam Encounter Details Date Type Department Care Team (Late st Contact Info) Description 07/20/2024 3:00 PM EST Office Visit [facility] ADULT DENTAL [address] [place] [address] Sanaz Nelson Social History Tobacco Use Types [...] the past 12 months, has t he [employer], gas, oil or water [employer] threatened to shut off services in your [...] Timeout Date: 07/20/24, Timeout Time: 1505 Location: [facility] Tooth: Maxilla and Mandible Procedure: X-rays and Prophylaxis Verified the above with patient, melter assistant, and provider. Confirmed via patient's chart, intraorally and by radiographs. Truck Driver: Yes. Language: Croatian. Truck Driver's Name: Irais. Medical Hx: Vitals: Blood pressure [...] patient including brushing technique and flossing. Recommendations: Vermillion two times daily, modified aragon technique, Floss daily, Electric toothbrush, Soft bristle toothbrush, Vermillion Tongue, Anti-sensitivity toothpaste Recall Frequency: 6 mo NV: RCT/ Exam Hygienist: Sanaz moore RDH documented in this encounter Plan of Treatment Upcoming Encounters Date Type Department Care Team (Late st Contact Info) Description 08/18/2024 1:30 PM EST Office Visit [facility] ADULT DENTAL [address] [place] [address] Venkat Barreto DDS [address] [place] [address] 09/08/2024 3:00 PM EDT Clinical Support [facility] DIABETES/NUTRITION [address] [place] [address] Tamanna Mcintyre, RD [address] [place] [address] 11/04/2024 11:15 AM EDT Office Visit [facility] MEDICINE [address] [place] [address] Petra Wiley FNP [address] [place] [address] 01/18/2025 3:00 PM EDT Office Visit [facility] CHC ADULT DENTAL [address] [place] [address] Sanaz Nelson Scheduled Orders Name Type Priority [...] documented as of this encounter Care Teams Principal Developer Relationship Specialty Start Date End Date Petra Wiley FNP [address] [place] [address] PCP - General Family Medicine 03/17/24 Willard Waters [address] Rheumatology 05/17/24 Sumaya Kessler [address] [place] [address] 3rd [place] [address] Gastroenterology 05/17/24 Juan Sandra MD [address] [place] [address] Hematology and Oncology 05/17/24 Brigid Guy NP [address] [place] [address] Urology 05/17/24 Vicente Mooney MD [address] [place] [address] [address] [place] [address] Obstetrics and Gynecology 05/17/24 Beth Rai MD [address] [place] [address] Neurology 05/17/24 Michell Espinoza [address] [facility] 3rd [place] [address] Cardiology 05/17/24 Shelia Zheng Services MgrCook Enchil[employer] 09/26/23 documented as of this encounter
--- OUTSIDE RECORDS SUMMARY | 2024-08-17 16:30 | XMS_ITS | Encounter Summary ---
Author Organization [employer] Address [address] [facility] 7t [place] [address] Care Team Providers Care Leather Stamper Name Role Phone Petra Wiley Primary Care Provider [phone] Willard Waters Unavailable [phone] Victoria September Unavailable Juan Sandra MD Unavailable [phone] Brigid Guy NP Unavailable Vicente Mooney MD Unavailable Beth Rai MD Unavailable [phone] Michell Espinoza Unavailable Reason for Visit * Reason Onset Date Comments Referral 08/17/2024 Encounter Details Date Type Department Care Team (Late st Contact Info) Description 08/17/2024 Telephone [facility] MEDICINE [address] [place] [address] Petra Wiley FNP [address] [place], [place] [phone] Referral Social History Tobacco Use Types Packs/Day Years [...] encounter Miscellaneous Notes * Telephone Encounter - Cristina Jimenez - 08/17/2024 9:12 AM EST PT was referred to Nutrition. The diagnosis for Nutrition is no longer covered for BMI. Can a new referral with the following Diagnosis that best fit's the patient be sent Over weight Under Weight Obesity Thank you! documented in this encounter Plan of Treatment Upcoming Encounters Date Type Department Care Team (Late st Contact Info) Description 08/18/2024 1:30 PM EST Office Visit [facility] ADULT DENTAL [address] [place], [place] [phone] Venkat Barreto DDS [address] [place], [place] [phone] 09/08/2024 3:00 PM EDT Clinical Support [facility] DIABETES/NUTRITION [address] [place] [address] [place] [address] 11/04/2024 11:15 AM EDT Office Visit [facility] MEDICINE [address] [place] [address] Petra Wiley FNP [address] [place] [address] 01/18/2025 3:00 PM EDT Office Visit [facility] CHC ADULT DENTAL [address] [place] [address] Sanaz Nelson documented as of this encounter Visit Diagnoses Not on filedocumented in this encounter Additional Health Concerns Assessment Noted Time PHQ-9 Depression Total Score: 13 03/16/ 024 3:11 PM EDT documented as of this encounter Care Teams Leather Stamper Relationship Specialty Start Date End Date Petra Wiley FNP [address] [place] [address] PCP - General Family Medicine 03/17/24 Willard Waters [address] [place] [address] Rheumatology 05/17/24 Victoria Sumaya [address] 3rd [place] [address] Gastroenterology 05/17/24 Juan Sandra MD [address] [place] [address] Hematology and Oncology 05/17/24 Brigid Guy NP [address] [place] [address] Urology 05/17/24 Vicente Mooney MD [address] [place] [address] [address] [place] [address] Obstetrics and Gynecology 05/17/24 Beth Rai MD [address] [place] [address] [place] [address] Neurology 05/17/24 Michell Espinoza [address] 3rd [place] [address] Cardiology 05/17/24 Shelia Zheng Production Posting ClerkPlate Setter 09/26/23 documented as of this encounter
--- OUTSIDE RECORDS SUMMARY | 2024-08-17 16:30 | XMS_ITS | Encounter Summary ---
Author Organization [employer] Address 75 [facility] 7t [place] [address] Care Team Providers Care Separator Inserter Name Role Phone Petra Wiley NIC Primary Care Provider Willard Waters Unavailable [phone] Kessler, September Unavailable Juan Sandra MD Unavailable [phone] Brigid Guy NP Unavailable Vicente Mooney MD Unavailable Beth Rai MD Unavailable Michell Espinoza Unavailable Encounter Details Date Type Department Care Team (Late st Contact Info) Description 05/20/2024 Orders Only [facility] MED & PEDS [address] [place], [place] [phone] ProviderAddie MD Social History Tobacco Use Types [...] is your housing situation today? I have canddio martinez 04/16/[address] you [...] the past 12 months, has t he [employer], gas, oil or water company threatened to [...] Description 08/18/2024 1:30 PM EST Office Visit [facility] ADULT DENTAL [address] [place] [address] Venkat Barreto, DDS [address] [place] [address] 09/08/2024 3:00 PM EDT Clinical Support [facility] DIABETES/NUTRITION [address] [place] [address] Tamanna Mcintyre, RD [address] [place] [address] 11/04/2024 11:15 AM EDT Office Visit [facility] MEDICINE [address] [place] [address] Petra Wiley, RELAY ASSEMBLER [address] [place] [address] 01/18/2025 3:00 PM EDT Office Visit [facility] CHC ADULT DENTAL [address] [place] [address] Sanaz Nelson documented as of this encounter [...] documented as of this encounter Care Teams Separator Inserter Relationship Specialty Start Date End Date Petra Wiley FNP [address] [place] [address] PCP - General Family Medicine 03/17/24 Willard Waters [address] [place] [address] Rheumatology 05/17/24KesslerSeptember [address] [facility] 3rd [place] [address] Gastroenterology 05/17/24 Juan Sandra MD [address] [place] [address] Hematology and Oncology 05/17/24 Brigid Guy NP [address] [place] [address] Urology 05/17/24 Vicente Mooney MD [address] [place] [address] [address] [place] [address] Obstetrics and Gynecology 05/17/24 Beth Rai MD [address] [place] [address] 140 [place] [address] Neurology 05/17/24 Michell Espinoza [address] 3rd [place] [address] Cardiology 05/17/24 Shelia Zheng Senior Biostatistician/Group LeaderDigital Assistant 09/26/23 documented as of this encounter
--- OUTSIDE RECORDS SUMMARY | 2024-08-17 16:30 | XMS_ITS | Encounter Summary ---
Author Organization [employer] Address 75 [facility] 7t [place] [address] Care Team Providers Care Supervisory Geographer Name Role Phone Jennie Murray MD Primary Care Provider [phone] Petra Wiley Primary Care Provider [phone] Willard Waters Unavailable [phone] September Unavailable Juan Sandra MD Unavailable [phone] Brigid Guy NP Unavailable Vicente Mooney MD Unavailable Beth Rai MD Unavailable Michell Espinoza Unavailable Encounter Details Date Type Department Care Team (Late st Contact Info) Description 05/25/2022 Abstract [facility] CHC ADULT DENTAL [address] [place], [place] [phone] Dental, Provider, DDS Social History Tobacco Use [...] Description 08/18/2024 1:30 PM EST Office Visit [facility] ADULT DENTAL [address] [place] [address] Venkat Barreto, DDS [address] [place] [address] 09/08/2024 3:00 PM EDT Clinical Support [facility] DIABETES/NUTRITION [address] [place] [address] Tamanna Mcintyre, RD [address] [place] [address] 11/04/2024 11:15 AM EDT Office Visit [facility] MEDICINE [address] [place] [address] IsaiasenPetra, GOLF TEACHER [address] [place] [address] 01/18/2025 3:00 PM EDT Office Visit [facility] CHC ADULT DENTAL [address] [place] [address] Sanaz Nelson documented as of this encounter [...] on filedocumented in this encounter Care Teams Supervisory Geographer Relationship Specialty Start Date End Date Jennie Murray MD [address] [place] [address] PCP - General Family Medicine 06/23/13 03/16/24 Petra Wiley FNP [address] [place] [address] PCP - General Family Medicine 03/17/24 Willard Waters [address] [place] [address] Rheumatology 05/17/24 KesslerSeptember 11 [facility] [address] [place] [address] Gastroenterology 05/17/24 Juan Sandra MD [address] [place] [address] Hematology and Oncology 05/17/24 Brigid Guy NP [address] [facility] [address] [place] [address] Urology 05/17/24 Vicente Mooney MD [address] [place] [address] [address] [place] [address] Obstetrics and Gynecology 05/17/24 Beth Rai MD [address] [place] [address] 140 [place] [address] Neurology 05/17/24 Michell Espinoza 11 [facility] 3[address] [place] [address] Cardiology 05/17/24 Shelia Zheng Remote Medical CoderHand Former 09/26/23 documented as of this encounter
--- OUTSIDE RECORDS SUMMARY | 2024-08-17 16:30 | XMS_ITS | Encounter Summary ---
Author Organization [employer] Address 75 [facility] 7t [place] [address] Care Team Providers Care Inside Polisher Name Role Phone Petra Wiley NIC Primary Care Provider Willard Waters Unavailable [phone] September Unavailable Juan Sandra MD Unavailable [phone] Brigid Guy NP Unavailable Vicente Mooney MD Unavailable Beth Rai MD Unavailable Michell Espinoza Unavailable Encounter Details Date Type Department Care Team (Latest Contact Info) Description 08/14/2024 Travel Social History Tobacco Use Types Packs/Day [...] 08/18/2024 1:30 PM EST Office Visit [facility] ADULT DENTAL [address] [place] [address] Venkat Barreto DDS [address] [place] [address] 09/08/2024 3:00 PM EDT Clinical Support [facility] DIABETES/NUTRITION [address] [place] [address] Tamanna Mcintyre, RD [address] [place] [address] 11/04/2024 11:15 AM EDT Office Visit [facility] MEDICINE [address] [place] [address] Petra Wiley FNP 505 [place] [address] 01/18/2025 3:00 PM EDT Office Visit [facility] ADULT DENTAL [address] [place] [address] Sanaz Nelson documented as of this encounter Visit Diagnoses Not on filedocumented in this encounter Additional Health Concerns Assessment Noted Time PHQ-9 Depression Total Score: 13 03/16/ 024 3:11 PM EDT documented as of this encounter Care Teams Inside Polisher Relationship Specialty Start Date End Date Petra Wiley FNP [address] [place] [address] PCP - General Family Medicine 03/17/24 Willard Waters [address] [place] [address] Rheumatology 05/17/24 VictoriaSeptember 11 [facility] 3rd [place] [address] Gastroenterology 05/17/24 Juan Sandra MD [address] [place] [address] Hematology and Oncology 05/17/24 Brigid Guy NP 10 [facility] [address] [place] [address] Urology 05/17/24 Vicente Mooney MD [address] [place] [address] [address] [place] [address] Obstetrics and Gynecology 05/17/24 Beth Rai MD [address] [place] [address] 140 [place] [address] Neurology 05/17/24 Michell Espinoza 11 [facility] 3rd [place] [address] Cardiology 05/17/24 Shelia Zheng Preparole Counseling AideLace Sewer 09/26/23 documented as of this encounter
--- OUTSIDE RECORDS SUMMARY | 2024-08-17 16:30 | XMS_ITS | Encounter Summary ---
Author Organization [employer] Address 75 [facility] 7t [place] [address] Care Team Providers Care Chemical Processing Supervisor Name Role Phone Petra Wiley NIC Primary Care Provider Willard Waters Unavailable [phone] September Unavailable Juan Sandra MD Unavailable [phone] Brigid Guy NP Unavailable Vicente Moonye MD Unavailable Beth Rai MD Unavailable [phone] Michell Espinoza Unavailable Encounter Details Date Type Department Care Team (Late st Contact Info) Description 08/11/2024 Orders Only GENERIC EXTERNAL DATA DEPARTMENT Provider, Generic External Data Social History Tobacco Use Types Packs/Day Years [...] Description 08/18/2024 1:30 PM EST Office Visit [facility] ADULT DENTAL [address] [place] [address] Venkat Barreto DDS [address] [place] [address] 09/08/2024 3:00 PM EDT Clinical Support [facility] DIABETES/NUTRITION [address] [place] [address] Tamanna Mcintyre, RD [address] [place] [address] 11/04/2024 11:15 AM EDT Office Visit [facility] MEDICINE [address] [place] [address] Petra Wiley FNP [address] [place] [address] 01/18/2025 3:00 PM EDT Office Visit [facility] CHC ADULT DENTAL 505 [place] [address] Sanaz Nelson documented as of this encounter Procedures Procedure Name Priority Date/Time Associated Diagnosis Comments CULTURE, URINE, ROUTINE Routine 08/11/2024 2:36 PM EST documented in this encounter Results * Culture, Urine, Routine (08/11/2024 2:36 PM EST) Urine Urine specimen obtained by clean catch procedure / Unknown 08/11/2024 2:36 PM EST 08/11/2024 4:01 PM EST Comment:RUST Narrative [facility] - 08/13/2024 9:47 AM EST Urine Culture Report Result Urine Culture 10,000 to 50,000 cfu/ml Urine Culture Mixed bacterial terry characteristic of Urine Culture urogenital contamination. Specimen Source: Urine clean catch us Generic External Data Provider LAB MICROBIOLOGY - GENERAL ORDERABLES Final Result [facility] [address] [place] [phone] documented in this encounter Visit Diagnoses Not on filedocumented in this encounter Additional Health Concerns Assessment Noted Time PHQ-9 Depression Total Score: 13 03/16/ 024 3:11 PM EDT documented as of this encounter Care Teams Chemical Processing Supervisor Relationship Specialty Start Date End Date Petra Wiley FNP [address] [place] [address] PCP - General Family Medicine 03/17/24 Willard Waters [address] [place] [address] Rheumatology 05/17/24September 11 [facility] 3rd [place] [address] Gastroenterology 05/17/24 Juan Sandra MD [address] [place] [address] Hematology and Oncology 05/17/24 Brigid Guy NP [address] [place] [address] Urology 05/17/24 Vicente Mooney MD [address] [place], [place] [address] [address] [place] [address] Obstetrics and Gynecology 05/17/24 Beth Rai MD [address] [place] [address] Dr Rangel [address] [place] [address] Neurology 05/17/[address] [facility] [facility] [address] 3rd [place] [address] Cardiology 05/17/24 Shelia Zheng Sewage Disposal WorkerTerminal Carman 09/26/23 documented as of this encounter
--- OUTSIDE RECORDS SUMMARY | 2024-08-17 16:30 | XMS_ITS | Clinical Summary ---
Author Organization [employer] Address [address] [place] [address] 7t [place] [address] Care Team Providers Care Venue Attendant Name Role Phone Petra Wiley NIC Primary Care Provider [phone] Willard Waters Unavailable [phone] September Unavailable Juan Sandra MD Unavailable [phone] Brigid Guy NP Unavailable Vicente Mooney MD Unavailable Beth Rai MD Unavailable [phone] Michell Espinoza Unavailable Allergies Active Allergy Reactions [...] MINDA VECES AL D A Active Creon 56786-772270 units capsule delayed-release particles capsule TOME ADRY [...] 1 week. 3.5 g 02/18/2 025 Active fluticasone furoate (Arnuity Ellipta) 100 [...] 25 Palpitations 05/17/2024 Overview (05/17/2024): Followed by [facility] Cards Continues on Propranolol 20mg BID (through Cards) Class 1 obesity with body ma ss index (BMI) of 32.0 to 32.9 in adult 05/17/2024 Assessment & Plan (07/29/2024 4:08 PM EST): - Cont following with basket operator and healthy lifestyle interventions Assessment & [...] of medullary thyroid cancer or MEN 2. Pt Skilled referral offered. Recommended to decrease soda and [...] bruising easily 03/17/2024 Overview (03/17/2024): Followed by [facility] Heme/Onc - Dr. Sandra Per consult Jan [...] 04/17/2021 HCT 36.5 (L) 03/18/2024 Following with [facility] Heme/Onc - Dr. Turner Assessment & Plan [...] - Has consulted with Surgery team in [facility] for consideration of excision. Per their [...] - Has consulted with Surgery team in [facility] for consideration of excision. Per their consult Mar 2024, identified area has normal lobular fat, no discrete lipoma or nodules. Plan: conservative measures Abnormal uterine bleeding 12/27/2023 Overview (07/29/2024): Following with [facility] GREASE REFINER OPERATOR - Dr. Mooney EMB performed 04/14/24. [...] Overview (05/17/2024): Lab Results Component Value Date [id number] 19.9 (L) 03/18/2024 [id number] 19 (A) 05/08/2023 - Cont Vit D [...] Overview (05/17/2024): Pap NIL/HPV Neg 11/12/2019 Dental: [facility] Dental Last PE: 06/03/23 Hep B Immune: Mar 2024 Gastroesophageal reflux disease without esophagi tis 06/03/2023 Overview (06/03/2023): ?? Followed by [facility] YASSINE Kessler APRN ?? Continues famotidine and Dexliant through GI Irritable bowel syndrome with constipation 06/03 Overview (03/17/2024): Followed up [facility] YASSINE Kessler APRN Continues Bentyl TID Continues Bisacodyl 10mg nightly Dysphagia, oropharyngeal phase 06/03/2023 Overview (06/03/2023): ?? Followed by [facility] YASSINE Kessler APRN Gastroparesis 06/03/2023 Overview (03/17/2024): Followed by [facility] GI Continues with the following medication regimen for multiple GI symptoms and conditions: Creon, famotidine, psyllium, dicyclomine, simethicone, and Dexliant Previous medications: carafate NURIA positive 06/03/2023 Overview (07/29/2024): Previous followed by [facility] Rheum - Dr. Waters May 2024: Established with [facility] Rheum - Dr. Street NURIA positive 2019: 1:160, anti dna, nicholas, ESR, CRP all wnl Disorder of sesamoid bone of foot 06/03/2023 Overview (06/03/2023): -Left lateral sesamoid stress fx identified Jul 2022 at [facility] -Plan for immobilization in short walking boot and follow up 6 weeks Assessment & Plan (06/03/2023 10:28 PM EST): Plan to request latest records from [facility] and follow up with PCP to discuss eligibility handicap placard. Fibromyalgia 08/02/2022 Overview (07/29/2024): -Previously: Lyrica 75mg nightly through [facility] Physiatry/Rheum -Lyrica rx from PCP as of [...] Encounters Date Type Department Care Team Description 08/17/2024 Orders Only GENERIC EXTERNAL DATA DEPARTMENT Provider, Generic External Data 08/17/2024 Telephone [facility] MEDICINE [address] [place] [address] Petra Wiley FNP Referral 08/14/2024 1:30 PM EST Clinical Support [facility] DIABETES/NUTRITION [address] [place] [address] Tamanna Mcintyre, RD BMI 35.0-35.9,adult (Primary Dx) 08/14/2024 Travel 08/11/2024 Orders Only GENERIC EXTERNAL DATA DEPARTMENT Provider, Generic External Data 08/04/2024 2:30 PM EST Office Visit [facility] OPTOMETRY [address] [place] [address] Waqas, Cristine, OD Hordeolum internum of left lower eyelid (Primary Dx); Dry eyes, bilateral; Hyperopia of right eye 08/04/2024 Travel 07/31/2024 Telephone [facility] MEDICINE [address] [place] [address] Petra Wiley FNP Patient request 07/29/2024 10:30 AM EST Office Visit [facility] [address] [place] [address] Petra Wiley FNP Asthma, unspecified asthma severity, [...] Travel 07/28/2024 1:30 PM EST Clinical Support [facility] DIABETES/NUTRITION [address] [place] [address] Tamanna Mcintyre, RD BMI 35.0-35.9,adult (Primary Dx) 07/28/2024 Telephone [facility] CHC MED & PEDS [address] [place], [place] [phone] Shireen Eagle MA Chart Prep 07/28/2024 Travel 07/24/2024 2:30 PM EST Office Visit [facility] ADULT DENTAL [address], [place] [phone] Venkat Barreto, DDS 07/24/2024 2:00 PM EST Office Visit [facility] WALK-IN CENTER [address] [place] [address] Sylvia Lemons MD Hordeolum externum of left lower eyelid (Primary Dx) 07/20/2024 3:00 PM EST Office Visit [facility] ADULT DENTAL [address] [place] [address] Sanaz Nelson 07/20/2024 2:00 PM EST Clinical Support [facility] DIABETES/NUTRITION [address] [place] [address] Tamanna Mcintyre, RD BMI 35.0-35.9,adult (Primary Dx) 07/20/2024 Travel 07/12/2024 Refill [facility] MED & PEDS [address] [place] [address] Petra Wiley, NIC Seasonal allergies 07/10/2024 2:00 PM EST Nutrition [facility] DIABETES/NUTRITION [address] [place] [address] Tamanna Mcintyre, RD Body mass index (BMI) of 35.0 to 35.9 in adult (Primary Dx) 07/10/2024 1:00 PM EST Office Visit [facility] ADULT DENTAL [address] [place] [address] Venkat Barreto, DDS 07/10/2024 Travel 07/02/2024 1:30 PM EST Nutrition [facility] DIABETES/NTRN [address] [place] [address] Tamanna Mcintyre, RD Adult body mass index 35.0-35.9 (Primary Dx) 07/02/2024 Travel 06/30/2024 3:00 PM EST Office Visit [facility] ADULT DENTAL [address] [place] [address] Venkat Barreto, DDS 06/23/2024 Telephone [facility] MED & PEDS [address] [place] [address] Petra Wiley FNP 06/11/2024 Telephone [facility] [address] [place] [address] Petra Wiley FNP Medication Question 06/01/[address] nutrition appt request 06/01/2024 Patient Outreach [address] [address] Petra Wiley FNP Care Coordination (C3CM/CHW DES Kramer #3 CM enrollment_Closed ) 05/22/[address] NUTRITION APPT REQUEST 05/20/2024 Orders Only [facility] CHC MED & PEDS [address] [place], [place] [phone] Provider, MD Addie from Last 3 Months Immunizations Name Administration [...] the past 12 months, has t he [employer], gas, oil or water company threatened to [...] EST Inhaled Oxygen Concentration - - Weight 72.1 kg (159 lb) 08/14/2024 4:25 PM EST Height 149.9 cm (4' 11 ) 08/14/2024 4:25 PM EST Body Mass Index 32.11 08/14/2024 4:25 PM EST Plan of Treatment Upcoming Encounters Date Type Department Care Team (Late st Contact Info) Description 08/18/2024 1:30 PM EST Office Visit [facility] ADULT DENTAL [address] [place] [address] Venkat Barreto DDS [address] [place] [address] 09/08/2024 3:00 PM EDT Clinical Support [facility] DIABETES/NUTRITION [address] [place] [address] Tamanna Mcintyre, RD [address] [place] [address] 11/04/2024 11:15 AM EDT Office Visit [facility] MEDICINE [address] [place] [address] Petra Wiley, ADMISSIONS ADVISOR [address] [place], [place] [phone] 01/18/2025 3:00 PM EDT Office Visit [facility] CHC ADULT DENTAL [address] [place], [place] [phone] Sanaz Nelson Health Maintenance Due Date Last [...] Procedure Name Priority Date/Time Associated Diagnosis Comments URINALYSIS WITH REFLEX MICROSCOPIC Routine 08/17/2024 2:00 PM EST CULTURE, URINE, ROUTINE Routine 08/11/2024 2:36 PM EST CASE PRESENTATION, DETAILED AND EXTENSIVE [...] SURF, POSTERIOR Routine 06/30/2024 3:00 PM EST HEPATITIS C VIRAL RNA, QUANTITATIVE, [...] Recently Relevant to Health Maintenance Results * Urinalysis w/reflex microscopic (08/17/2024 2:00 PM EST) Color Urine Yellow [facility] Appearance Urine Clear [facility] PH 5.5 5.0 - 9.0 [facility] Glucose Urine UA Negative Negative mg/dL [facility] Urine Blood Negative Negative [facility] Specific Maxwell - Urine 1.010 1.005 - 1.025 [facility] Urine Protein Negative Neg-Trace mg/dL [facility] Urine Ketones Negative Negative mg/dL [facility] Nitrite Urine Negative Negative [facility] Leukocyte Esterase Urine Negative Negative [facility] 08/17/2024 2:00 PM EST 08/17/2024 2:25 PM EST Narrative [facility] - 08/17/2024 2:36 PM EST Urine, Clean Catch Generic External Data Provider LAB URINE ORDERAB LES Final Result Performing Organization Address [facility]/ZIP Co de Phone Number [facility] [address] [place] [phone] * Culture, Urine, Routine (08/11/2024 2:36 PM EST) Urine Urine specimen obtained by clean catch procedure / Unknown 08/11/2024 2:36 PM EST 08/11/2024 4:01 PM EST Comment:UACC Narrative [facility] - 08/13/2024 9:47 AM EST Urine Culture Report Result Urine Culture 10,000 to 50,000 cfu/ml Urine Culture Mixed bacterial terry characteristic of Urine Culture urogenital contamination. Specimen Source: Urine clean catch Generic External Data Provider LAB MICROBIOLOGY - GENERAL ORDERABLES Final Result Performing Organization Address [facility]/ZIP Co de Phone Number [facility] [address] [place] [phone] * Hepatitis C Viral RNA, Quantitative, Real-Time PCR (03/18/2024 2:05 PM EDT) Hepatitis C Viral Load <15 NOT DETECTED NOT DETECTED IU/mL [facility] HCV Log PCR <1.18 NOT DETECTED NOT DETECTED Log IU/mL [facility] Comment:For additional infor mation, please refer tohttp://education.[employer].AGILE customer insight/faq/OXI20k7(This link is being provided for informational/educational purposes only.)THIS TEST WAS PERFORMED AT:[address] [place] [id number] DEL CID MD Blood 03/18/2024 2:05 PM EDT 03/18/2024 2:05 PM EDT Petra Wiley [facility] LAB BLOOD ORDERABLES Final Res ult Performing Organization Address [facility]/ZIP Co de Phone Number [facility] [address] [place] [phone] * HIV-1/2 Antigen and Antibodies, Fourth Generation, with Reflexes (03/18/2024 2:05 PM EDT) HIV AB/AG Nonreactive Nonreactive [facility] Comment:HIV-1 p24 Ag and/or HIV-1/HIV-2 Ab not detected.A test result that is nonreactive does not exclude thepossibility of exposure to or infection with HIV-1 and/orHIV-2. Nonreactive results in this assay for individualswith prior exposure to HIV-1 and/or HIV-2 may be due toantigen and antibody levels that are below the limit ofdetection of this assay.The [employer] Easy HIV Ag/Ab Combo assay result andsupplemental assay results should be interpreted inconjunction with the patient's clinical presentation,history and other laboratory results. If the results areinconsistent with clinical evidence, additional testing issuggested to confirm the result. Blood Venous blood specimen / Unknown 03/18/2024 2:05 PM EDT 03/18/2024 2:05 PM EDT Petra Wiley [facility] LAB BLOOD ORDERABLES Final Res ult Performing Organization Address [facility]/ZIP Co de Phone Number [facility] [address] [place] [phone] * (ABNORMAL) Lipid Panel, Standard (03/18/2024 2:05 PM EDT) Triglycerides 100 <150 mg/dL [facility] Comment:Desirable Triglyceri de: less than 150 mg/dLBorderline High Triglyceride 150-199 mg/dLHigh Triglyceride: 200-499 mg/dLVery High Triglyceride: greater than or equal to 5OO mg/dL Cholesterol 200(H) <200 mg/dL [facility] Comment:Desirable Cholestero l: less than 200 mg/dLBorderline High Cholesterol: 200-239 mg/dLHigh Cholesterol: greater than 239 mg/dL LDL Cholesterol Calculated 128(H) <100 mg/dL [facility] Comment:Desirable LDL: less than 100 mg/dLNear Optimal/Above Optimal LDL: 110- 129 mg/dLBorderline High LDL: 130-159 mg/dLHigh LDL: 160-189 mg/dLVery High LDL: greater than or equal to 190 mg/dL HDL Cholesterol 52 >40 mg/dL [facility] Comment:Desirable HDL: great er than 40 mg/dL Note: This HDL assay may give artificially low results in patients with liver disease. Blood Venous blood specimen / Unknown 03/18/2024 2:05 PM EDT 03/18/2024 2:05 PM EDT Petra Wiley ADMISSIONS ADVISOR LAB BLOOD ORDERABLES Final Res ult Performing Organization Address City/[facility]/ZIP Co de Phone Number [facility] [address] [place] [phone] * Pap Smear (11/12/2019 12:00 AM EDT) Swab Historical Provider MD LAB CYTOLOGY ORDERABLES F inal Result Performing Organization Address City/State/[facility] Co de Phone Number EXTERNAL LAB from Last 3 Months or Most Recently Relevant to Health Maintenance Insurance [facility] ST[facility] ADULT Care Teams Venue Attendant Relationship Specialty Start Date End Date Petra Wiley FNP [address] [place] [address] PCP - General Family Medicine 03/17/24 Willard Waters [address] [place] [address] Rheumatology 05/17/24September 11 [facility] 3rd [place] [address] Gastroenterology 05/17/24 Juan Sandra MD [address] [place] [address] Hematology and Oncology 05/17/24 Brigid Guy NP [address] [place] [address] Urology 05/17/24 Vicente Mooney MD [address] [place] [address] [address] [place] [address] Obstetrics and Gynecology 05/17/24 Beth Rai MD [address] [place] [address] Dr [address] [place] [address] Neurology 05/17/[address] 3rd [place] [address] Cardiology 05/17/24 Shelia Zheng Hotel Administrative AssistantCircuitry Negative Inspector 09/26/23
--- OUTSIDE RECORDS SUMMARY | 2024-08-17 16:30 | XMS_ITS | Encounter Summary ---
Author Organization [employer] Address [address] [place] [address] 7t [place] [address] Care Team Providers Care Boat Carpenter Mechanic Name Role Phone Jennie Murray MD Primary Care Provider [phone] Petra Wiley Primary Care Provider Willard Waters Unavailable [phone] September Unavailable Juan Sandra MD Unavailable [phone] Brigid Guy NP Unavailable Vicente Mooney MD Unavailable Beth Rai MD Unavailable Michell Espinoza Unavailable Reason for Visit * Reason Onset Date Comments medication 09/19/2022 Encounter Details Date Type Department Care Team (Late st Contact Info) Description 09/19/2022 Telephone [facility] CHC ADULT DENTAL [address] [place], [place] [phone] Venkat Barreto DDS [address] [place] [address] medication Social History Tobacco Use Types Packs/Day [...] EDT Script was sent for Augementin to [facility] in [place]. Patient went in to picker tender script and they stated there was nothing there. Contacted [facility] and they stated that nationwide there was a shut down on their system for about 3 hours so it doesn't look like they received it. Can it be resent for patient? documented in this encounter Plan of Treatment Upcoming Encounters Date Type Department Care Team (Late st Contact Info) Description 08/18/2024 1:30 PM EST Office Visit [facility] ADULT DENTAL [address] [place] [address] Venkat Barreto, DDS [address] [place] [address] 09/08/2024 3:00 PM EDT Clinical Support [facility] DIABETES/NUTRITION [address] [place] [address] Tamanna Mcintyre, RD [address] [place] [address] 11/04/2024 11:15 AM EDT Office Visit [facility] MEDICINE [address] [place] [address] Petra Wiley FNP [address] [place] [address] 01/18/2025 3:00 PM EDT Office Visit [facility] ADULT [facility]AL [address] [place] [address] Sanaz Nelson documented as of this encounter Visit Diagnoses Not on filedocumented in this encounter Additional Health Concerns Assessment Noted Time PHQ-9 Depression Total Score: 0 07/04/19 23 3:01 PM EST documented as of this encounter Care Teams Boat Carpenter Mechanic Relationship Specialty Start Date End Date Jennie Murray MD [address] [place] [address] PCP - General Family Medicine 06/23/13 03/16/24 Petra Wiley FNP [address] [place] [address] PCP - General Family Medicine 03/17/24 Willard Waters [address] [place] [address] Rheumatology 05/17/24KesslerSeptember [address] [facility] [address] [facility] [address] 3rd [place] [address] Gastroenterology 05/17/24 Juan Sandra MD [address] [place] [address] Hematology and Oncology 05/17/24 Brigid Guy NP [address] [place] [address] Urology 05/17/24 Vicente Mooney MD [address] [place] [address] [address] [place] [address] Obstetrics and Gynecology 05/17/24 Beth Rai MD [address] [place] [address] [address] [place] [address] Neurology 05/17/24 Michell Espinoza [address] [place] [address] Drive 3rd [place] [address] Cardiology 05/17/24 Shelia Zheng Maternal Fetal PhysicianEnvironmental Monitoring Technician 09/26/23 documented as of this encounter
--- OUTSIDE RECORDS SUMMARY | 2024-08-17 16:30 | XMS_ITS | Encounter Summary ---
Author Organization [employer] Address [address] [facility] 7t [place] [address] Care Team Providers Care Wool Merchant Name Role Phone Jennie Murrya MD Primary Care Provider Petra Wiley Primary Care Provider [phone] Willard Waters Unavailable [phone] September Unavailable Juan Sandra MD Unavailable [phone] Brigid Guy NP Unavailable Vicente Mooney MD Unavailable Beth Rai MD Unavailable Michell Espinoza Unavailable Encounter Details Date Type Department Care Team (Late st Contact Info) Description 05/18/2022 Orders Only [facility]IC[facility] [address] [place] [address] Jennie Murray MD [address] [place], [place] [phone] Acute foot pain, unspecified laterality (Primary Dx) [...] Description 08/18/2024 1:30 PM EST Office Visit [facility] ADULT DENTAL [address] [place] [address] Venkat Barreto DDS [address] [place] [address] 09/08/2024 3:00 PM EDT Clinical Support [facility] DIABETES/NUTRITION [address] [place] [address] Tamanna Mcintyre, RD [address] [place] [address] 11/04/2024 11:15 AM EDT Office Visit [facility] MEDIC[facility] [address] [place] [address] Petra Wliey FNP [address] [place] [address] 01/18/2025 3:00 PM EDT Office Visit [facility] ADULT DENTAL [address] [place] [address] Sanaz Nelson documented as of this encounter Visit Diagnoses Diagnosis Acute foot pain, unspecified laterality- Primary documented in this encounter Care Teams Wool Merchant Relationship Specialty Start Date End Date Jennie Murray MD [address] [place] [address] PCP - General Family Medicine 06/23/13 03/16/24 Petra Wiley FNP [address] [place] [address] PCP - General Family Medicine 03/17/24 Willard Waters [address] [place] [address] Rheumatology 05/17/24 Victoria Sumaya [address] 3rd [place] [address] Gastroenterology 05/17/24 Juan Sandra MD [address] [place] [address] Hematology and Oncology 05/17/24 Brigid Guy NP [address] [place] [address] Urology 05/17/24 Vicente Mooney MD [address] [place] [address] [address] [place] [address] Obstetrics and Gynecology 05/17/24 Beth Rai MD [address] [place] [address] Neurology 05/17/24 Michell Espinoza 11 [facility] 3rd [place] [address] Cardiology 05/17/24 Shelia Zheng Livestock TraderEntry Level Marketing Assistant 09/26/23 documented as of this encounter
--- OUTSIDE RECORDS SUMMARY | 2024-08-17 16:30 | XMS_ITS | Encounter Summary ---
Author Organization [employer] Address [address] [place] [address] 7t [place] [address] Care Team Providers Care Police Academy Instructor Name Role Phone Jennie Murray MD Primary Care Provider Petra Wiley Primary Care Provider Willard Waters Unavailable [phone] September Unavailable Juan Sandra MD Unavailable [phone] Brigid Guy NP Unavailable Vicente Mooney [...] Description 08/21/2022 Telephone [facility]ULT [facility] [address] [place], [place] [phone] Venkat Barreto DDS [address] [place], [place] [phone] Appointment (Ambika Lowell Anaya 1985 Patient called [...] Description 08/18/2024 1:30 PM EST Office Visit [facility] ADULT DENTAL [address] [place] [address] Venkat Barreto DDS [address] [place] [address] 09/08/2024 3:00 PM EDT Clinical Support [facility] DIABETES/NUTRITION [address] [place] [address] [place] [address] 11/04/2024 11:15 AM EDT Office Visit [facility] MEDICINE [address] [place] [address] Petra Wiley FNP [address] [place] [address] 01/18/2025 3:00 PM EDT Office Visit [facility] CHC ADULT DENTAL [address] [place] [address] Sanaz Nelson documented as of this encounter Visit Diagnoses Not on filedocumented in this encounter Additional Health Concerns Assessment Noted Time PHQ-9 Depression Total Score: 0 07/04/19 23 3:01 PM EST documented as of this encounter Care Teams Police Academy Instructor Relationship Specialty Start Date End Date Jennie Murray MD [address] [place] [address] PCP - General Family Medicine 06/23/13 03/16/24 Petra Wiley FNP [address] [place] [address] PCP - General Family Medicine 03/17/24 Willard Waters [address] [place] [address] Rheumatology 05/17/24 Sumaya Kessler [address] 3rd [place] [address] Gastroenterology 05/17/24 Juan Sandra MD [address] [place] [address] Hematology and Oncology 05/17/24 Brigid Guy NP [address] [place] [address] Urology 05/17/24 Vicente Mooney MD [address] [place] [address] [address] [place] [address] Obstetrics and Gynecology 05/17/24 Beth Rai MD [address] [place] [address] [place] [address] Neurology 05/17/24 Michell Espinoza [address] [place] [address] 3rd [place] [address] Cardiology 05/17/24 [facility] Retort FiremanStarter Mechanic 09/26/23 documented as of this encounter
--- OUTSIDE RECORDS SUMMARY | 2024-08-17 16:30 | XMS_ITS | Encounter Summary ---
Author Organization [employer] Address [address] [place] [address] 7t [place] [address] Care Team Providers Care Field Operations Technician Name Role Phone Jennie Murray MD Primary Care Provider Petra Wiley Primary Care Provider Willard Waters Unavailable [phone] September Unavailable Juan Sandra MD Unavailable [phone] Brigid Guy NP Unavailable Vicente Mooney MD Unavailable Beth Rai MD Unavailable Michell Espinoza Unavailable Encounter Details Date Type Department Care Team (Late st Contact Info) Description 07/26/2022 Orders Only [facility] MEDICINE 230 [place], [place] [phone] Nelson Medrano MD [address] [place] [address] [phone] Chronic idiopathic constipation (Primary Dx) Social History [...] Description 08/18/2024 1:30 PM EST Office Visit [facility] ADULT DENTAL 230 [place] [address] Venkat Barreto DDS 230 [place] [address] 09/08/2024 3:00 PM EDT Clinical Support [facility] DIABETES/NUTRITION 230 [place] [address] Tamanna Mcintyre, RD 230 [place] [address] 11/04/2024 11:15 AM EDT Office Visit [facility] MEDICINE 230 [place] [address] Petra Wiley FNP 505 [place] [address] 01/18/2025 3:00 PM EDT Office Visit [facility] ADULT DENTAL 505 [place] [address] Sanaz Nelson documented as of this encounter Visit Diagnoses Diagnosis Chronic idiopathic constipation- Primary Unspecified constipation documented in this encounter Additional Health Concerns Assessment Noted Time PHQ-9 Depression Total Score: 0 07/04/19 23 3:01 PM EST documented as of this encounter Care Teams Field Operations Technician Relationship Specialty Start Date End Date Jennie Murray MD [address] [place] [address] PCP - General Family Medicine 06/23/13 03/16/24 Petra Wiley FNP 230 [place] [address] PCP - General Family Medicine 03/17/24 Willard Waters [address] [place] [address] Rheumatology 05/17/24 Sumaya Kessler 11 [facility] 3rd [place] [address] Gastroenterology 05/17/24 Juan Sandra MD [address] [place] [address] Hematology and Oncology 05/17/24 Brigid Guy NP 10 [facility] [address] [place] [address] Urology 05/17/24 Vicente Mooney MD [address] [place] [address] [address] [place] [address] Obstetrics and Gynecology 05/17/24 Beth Rai MD [address] [place] [address] Neurology 05/17/24 Michell Espinoza [address] [address] Cardiology 05/17/24 [facility] Stationary Engineer SupervisorContent Specialist 09/26/23 documented as of this encounter
--- OUTSIDE RECORDS SUMMARY | 2024-08-17 16:30 | XMS_ITS | Encounter Summary ---
Author Organization [employer] Address 75 [facility] 7t [place] [address] Care Team Providers Care Roustabout Pusher Name Role Phone Petra Wiley CLEANER GREASER Primary Care Provider [phone] Willard Waters Unavailable [phone] Kessler, September Unavailable Juan Sandra MD Unavailable [phone] Brigid Guy NP Unavailable Vicente Mooney MD Unavailable Beth Rai MD Unavailable [phone] Michell Espinoza Unavailable Encounter Details Date Type Department Care Team (Latest Contact Info) Description 08/14/2024 1:30 PM EST Clinical Support [facility] DIABETES/NUTRITION 230 [place], [place] [phone] Tamanna Mcintyre, ANGELINA 230 [place], [place] [phone] BMI 35.0-35.9,adult (Primary Dx) Social History Tobacco [...] - Inhaled Oxygen Concentration - - Weight 72.1 kg (159 lb) 08/14/2024 4:25 PM EST Height 149.9 cm (4' 11 ) 08/14/2024 4:25 PM EST Body Mass Index 32.11 08/14/2024 4:25 PM EST documented in this encounter Progress Notes * Tamanna Mcintyre, ANGELINA - 08/14/2024 1:30 PM EST In Person Visit Medical Diagnosis: 68.35 BMI 35.0 - 35.9 BMI 35.0-35.9,adult Anthropometrics: Ht:4' 11 (1.499 m), Wt:159 lb (72.1 kg), BMI: Body mass index is 32.11 kg/m??. Assessment: Patient (Pt) and Pt's , Gulshan, accepted nutrition education assessment appointment with RD. RD took Pt's weight. Weight revealed a decrease of six (6) pounds. RD asked what she/ Pt is doing to obtain this decrease? RD took 24 hour recall/ typical daily intake from Pt. Intake revealed Pt is following the food plan that was briefly given. Pt still has not completed her 2nd half of First appointment. RD was establishing Pt's nausea first which is now reported to be under control. RD suggested that Pt come in and does the 2nd half of First nutrition education assessment appointment. Pt agreed. In the last week of 2024, Pt is schedule to complete the 2nd half of First appointment. Once the second half of First appointment is finished, RD will fill in nutrition diagnosis, nutrition Intervention, goals, Tailored made meal plan, monitoring and evaluation will be put into Pt's chart here. Thus, all is to be followed by Pt with their agreement. Food Allergies: NKFA Exercise: not at all Food Intolerance: Was not talked about today. Food Preferences: Was not talked about today. Food Dislikes: Was not talked about today. Frequency of Eating Out/ Restaurant: Didn't say Who Cooks?: Didn't say How much caffeine?: denies use How much sugary beverages?: Pt has been drinking water and sugar free beverages. Diet History: Breakfast: Eg+ Water: 1+ cups Ice (sugar free beverage): 1 cups Snack: Didn't say Ice (sugar free beverage): sips Lunch: Ice (sugar free beverage): 1 cups Beef: 6+ oz. Avocado: one Taye lettuce, tomato: 2 cups EVOO: 1 tablespoon Snack: Cypriot yogurt- Oikos: one 5 oz. Ice (sugar free beverage): 1 cups Dinner: Chicken: 6 oz. Ice (sugar free beverage): 1 cups Rice: 1/2 cup Beans: 1/3 cup Snack: None Ice (sugar free beverage): sips Nutrition Diagnosis: 1st half of First appointment [...] Description 08/18/2024 1:30 PM EST Office Visit [facility] ADULT DENTAL 230 [place] [address] Venkat Barreto DDS 230 [place] [address] 09/08/2024 3:00 PM EDT Clinical Support [facility] DIABETES/NUTRITION 230 [place] [address] 230 [place] [address] 11/04/2024 11:15 AM EDT Office Visit [facility] MEDICINE 230 [place] [address] Petra Wiley FNP 505 [place] [address] 01/18/2025 3:00 PM EDT Office Visit [facility] ADULT DENTAL 505 [place] [address] Sanaz Nelson documented as of this encounter Visit Diagnoses Diagnosis BMI 35.0-35.9,adult- Primary documented in this encounter Additional Health Concerns Assessment Noted Time PHQ-9 Depression Total Score: 13 03/16/2 024 3:11 PM EDT documented as of this encounter Care Teams Roustabout Pusher Relationship Specialty Start Date End Date Petra Wiley FNP [address] [place] [address] PCP - General Family Medicine 03/17/24 Willard Waters [address] Rheumatology 05/17/[address] 3rd [place] [address] Gastroenterology 05/17/24 Juan Sandra MD 575 [place] [address] Hematology and Oncology 05/17/24 Brigid Guy NP [address] [place] [address] Urology 05/17/24 Vicente Mooney MD [address] [place] [address] Obstetrics and Gynecology 05/17/24 Beth Rai MD [address] [place] [address] [place] [address] Neurology 05/17/24 Michell Espinoza [address] 3rd [place] [address] Cardiology 05/17/24 Shelia Zheng Sales And Marketing AssistantPattern Vault Clerk 09/26/23 documented as of this encounter
--- OUTSIDE RECORDS SUMMARY | 2024-08-17 16:30 | XMS_ITS | Encounter Summary ---
Author Organization [employer] Address 75 [facility] 7t [place] [address] Care Team Providers Care Retail Advisor Name Role Phone Petra Wiley NIC Primary Care Provider Willard Waters Unavailable [phone] September Unavailable Juan Sandra MD Unavailable [phone] Brigid Guy NP Unavailable Vicente Mooney MD Unavailable Beth Rai MD Unavailable Michell Espinoza Unavailable Encounter Details Date Type Department Care Team (Late st Contact Info) Description 08/17/2024 Orders Only GENERIC EXTERNAL DATA [...] Visit [facility] ADULT DENTAL 230 [place] [address] Venkat Barreto DDS [address] [place] [address] 09/08/2024 3:00 PM EDT Clinical Support [facility] DIABETES/NUTRITION 230 [place] [address] Tamanna Mcintyre, RD 230 [place] [address] 11/04/2024 11:15 AM EDT Office Visit [facility] MEDICINE 230 [place] [address] Petra Wiley FNP 505 [place] [address] 01/18/2025 3:00 PM EDT Office Visit [facility] ADULT DENTAL 505 [place] [address] Sanaz Nelson documented as of this encounter Procedures Procedure Name Priority Date/Time Associated Diagnosis Comments URINALYSIS WITH REFLEX MICROSCOPIC Routine 08/17/2024 2:00 PM EST documented in this encounter Results * Urinalysis w/reflex microscopic (08/17/2024 2:00 PM EST) Color Urine Yellow [facility] Appearance Urine Clear [facility] PH 5.5 5.0 - 9.0 [facility] Glucose Urine UA Negative Negative mg/dL [facility] Urine Blood Negative Negative [facility] Specific [place] - Urine 1.010 1.005 - 1.025 [facility] Urine Protein Negative Neg-Trace mg/dL [facility] Urine Ketones Negative Negative mg/dL [facility] Nitrite Urine Negative Negative [facility] Leukocyte Esterase Urine Negative Negative [facility] 08/17/2024 2:00 PM EST 08/17/2024 2:25 PM EST Narrative [facility] - 08/17/2024 2:36 PM EST Urine, Clean Catch us Generic External Data Provider LAB URINE ORDERAB LES Final Result [facility] [address] [place] [address] [phone] documented in this encounter Visit Diagnoses Not on filedocumented in this encounter Additional Health Concerns Assessment Noted Time PHQ-9 Depression Total Score: 13 03/16/2 024 3:11 PM EDT documented as of this encounter Care Teams Retail Advisor Relationship Specialty Start Date End Date Petra Wiley FNP 230 [place] [address] PCP - General Family Medicine 03/17/24 Willard Waters [address] [place] [address] Rheumatology 05/17/[address] 3rd [place] [address] Gastroenterology 05/17/24 Juan Sandra MD 575 [place] [address] Hematology and Oncology 05/17/24 Brigid Guy NP [address] [place] [address] Urology 05/17/24 Vicente Mooney MD [address] [place] [address] Obstetrics and Gynecology 05/17/24 Beth Rai MD [address] [place] [address] [place] [address] Neurology 05/17/24 Michell Espinoza [address] 3rd [place] [address] Cardiology 05/17/24 Shelia Zheng Ballet Master/MistressScholastic Aptitude Test Grader 09/26/23 documented as of this encounter
== END 2024-08-17 13:55 | disposition home or self-care (01) ==
LOC: HO.LAB 13:54
PROVIDERS: PCP Registered Nurse; Visit Provider Nurse Practitioner Family
DX: N39.0 Urinary tract infection, site not specified (principal)
CPT/HCPCS: 81003

== ENCOUNTER 2024-09-01 11:58 | Outpatient (REF) | payer MEDICAID, SELFPAY ==
--- NOTE | ~2024-09-01 | MM_ITS ---
EXAMINATION: MM DIAGNOSTIC DIGITAL BREAST TOMOSYNTHESIS, BILATERAL Limited right breast ultrasound. CLINICAL INFORMATION: Palpable right breast lump lower inner quadrant. COMPARISON: Mammography: Comparison is made with relevant prior exams. TECHNIQUE: Digital breast mammography with tomosynthesis is performed in both the craniocaudal and mediolateral oblique views along with computer-aided detection (CAD). FINDINGS: The breasts are heterogeneously dense, which may obscure small masses (ACR BI-RADS breast composition Category c). Left: Marker clips. There are no significant masses, abnormal calcifications, or other abnormalities. Right: Marker clip in the upper outer breast. BB marker in the lower inner quadrant at site of patient's palpable lump with an underlying 2 cm from the palpable mass. No suspicious calcifications or other abnormal findings. Targeted color Doppler ultrasound scanning in the area of the patient's palpable lump demonstrates a hypoechoic oval circumscribed solid mass at 3:00 4 cm from nipple measuring 19 x 19 x 12 mm. 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 This mass correlates with the palpable area and circumscribed oval mass on mammography. Results are provided to the patient at time of visit by the technologist. MM/MM tomosynthesis diagnostic BI IMPRESSION: Left: Benign. Right: Circumscribed oval mass at 3:00 in the area the patient's palpable lump with morphology of a fibroadenoma. Six-month follow-up versus ultrasound-guided core needle biopsy were offered to the patient. The patient prefers 6 month follow-up at this time for further evaluation. ASSESSMENT: BI-RADS BI-RADS 3 - Probably benign finding(s) - 6 month follow-up suggested RECOMMENDATION: 6 Month F/U This patient's information was entered into a reminder system with a target due date for their next mammogram. Electronically signed by: Eneida Núñez DO 09/01/2024 03:55 PM EDT
== END 2024-09-01 11:59 | disposition home or self-care (01) ==
LOC: HO.MAMMO 11:58
PROVIDERS: PCP Registered Nurse; Visit Provider Registered Nurse
DX: N64.4 Mastodynia (principal)
CPT/HCPCS: 76642; 77062; 77066

== ENCOUNTER → 2024-09-01 12:30 | Outpatient (BNV) | payer MEDICAID, SELFPAY | PROVIDERS: PCP Registered Nurse; Visit Provider Internal Medicine | DX: N63.14 Unspecified lump in the right breast, lower inner quadrant (principal) | CPT/HCPCS: 76642; 77062; 77066 ==

== ENCOUNTER 2024-09-14 14:36 | Outpatient (AMB) | payer MEDICAID, SELFPAY ==
--- NOTE | 2024-09-14 14:41 | MHC.OFFVIS ---
Vital Signs 09/14/24 14:42 Height 4 ft 11 in Weight 160 lb BMI 32.3 Intake Visit Reasons: US follow up/DO NOT RS/DO NOT RS Inspector Metal Fabricating Required: Yes Inspector Metal Fabricating Language: Marketing Budget Analyst Services: Inspector Metal Fabricating Present (in person) Inspector Metal Fabricating Name: Renee PAZ Information Interpreted: non-clinical & clinical Accompanied by: Self / Same As Patient Allergies Iodinated Contrast Media [IV DYE, IODINE CONTAINING CONTRAST ] Allergy (Intermediate, Verified 09/14/24 14:43) SHORTNESS OF BREATH citalopram [From CELEXA] Allergy (Unknown, Verified 09/14/24 14:43) VOMITTING duloxetine [Cymbalta] Allergy (Unknown, Verified 09/14/24 14:43) unknown morphine [MORPHINE] Allergy (Unknown, Verified 09/14/24 14:43) PALPITATIONS-PT PREFERS NOT TO TAKE tramadol [TRAMADOL] Allergy (Unknown, Verified 09/14/24 14:43) VOMITING HPI Comments Details: Presenting for ultrasound follow-up regarding left ovarian lesion identified on previous ultrasound. Pelvic Ultrasound done in 06/09 showed the following: IMPRESSION: 1. Previously identified 0.7 cm hyperechoic left ovarian lesion is not identified on the current exam, although visualization is limited due to bowel gas. 2. Endometrial thickness is 6 mm. 3. Asymmetric enlargement of the right ovary greater than left. Small amount of free fluid adjacent to the right ovary. Limited visualization of the right ovary. 4. Uterine masses measuring 1.1 x 0.8 x 1.2 cm and 1.7 x 1.4 x 1.7 cm are characteristic of fibroids. Previous exam demonstrated a 1.2 x 1.2 x 1.4 cm uterine mass [facility] Medical History Nausea and vomiting Diarrhea Small intestinal bacterial overgrowth (SIBO), hydrogen subtype Upper abdominal pain Jaylyn albicans infection History of thyroiditis Palpitations Left flank pain, chronic Left hip pain Oropharyngeal dysphagia Rectal bleeding Breast lump Nephrolithiasis Vulvovaginitis jaylyn albicans Vulvovaginal candidiasis Myalgia Toe swelling Hives Vulvovaginitis Fibroadenoma of both breasts Acute diarrhea Recurrent nephrolithiasis Vitamin D deficiency Obesity Fibroadenoma Lipoma Fibromyalgia NURIA positive Hx of lipoma Surgical History History of esophagogastroduodenoscopy (EGD) History of wisdom tooth extraction Family History Father Diabetes Heart attack Asthma Maternal Grandmother Diabetes HTN (hypertension) Parkinson disease Breast cancer Mother Diabetes Family history of diabetes mellitus Sister Asthma Maternal Grandfather Parkinson disease Social History Household Members: Children [facility] Are you a primary childcare teacher to a significant other at home: No Do you presently have visiting nurse 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 (official greeter) Alcohol intake: never Patient Tobacco Use Status: Never used Tobacco Second Hand Smoke Exposure: Yes (Neighbors) service: No Current occupational status: disabled Sexual orientation: Straight/Heterosexual Gender identity: Female Female Reproductive History Menstrual Age of Menarche: 13 Review of Systems Const All systems reviewed & are unremarkable except as noted in HPI and below Reports as per HPI and Reports no additional complaints GI Reports no additional complaints Reports no additional complaints Physical Exam Vital Signs: BMI result Body Mass Index 32.3 Assessment & Plan Assessment & Plan (1) Lesion of ovary: Code(s): N83.9 - Noninflammatory disorder of ovary, fallopian tube and broad ligament, unspecified Category: Medical Plan: Discussed with the patient the finding showing a resolved left ovarian lesion on the most recent pelvic ultrasound . The patient was reassured. All questions answered, the patient verbalized understanding. (2) Uterine myoma: Code(s): D25.9 - Leiomyoma of uterus, unspecified Category: Medical Plan: Discussed with the patient the findings on pelvic ultrasound & the risk of myosarcoma; in addition reviewed with the patient that malignancy and pre malignancy cannot be ruled out without hysterectomy for pathological evaluation ; furthermore, explained to the patient the limitation of pelvic ultrasound and endometrial biopsy in the setting. Discussed with the patient the options of treatment including expectant management versus hysterectomy; the pros and cons, risks benefits of each approach were discussed with the patient including the fact that in cases of myosarcoma, surgical treatment can lead to early diagnosis and positively affects the prognosis; after further discussion, the patient decided to proceed with expectant management. Will repeat pelvic ultrasound periodically. Instructions given to patient to call in case any of the following occurs: pressure symptoms, abnormal uterine bleeding, pelvic pain; and to schedule a 20-months pelvic ultrasound (order placed) and a follow-up appointment . All questions answered, the patient verbalized understanding and agreed with the plan . Orders: Orders US pelvic and transvaginal 1 Year D25.9 - Leiomyoma of uterus, unspecified Coding Level of Care Code Est Pt Level 3 (06856) Diagnoses Lesion of ovary N83.9 Uterine myoma D25.9
[2024-09-14 14:42] VITALS: BMI 32.3
--- OUTSIDE RECORDS SUMMARY | 2024-09-14 16:30 | XMS_ITS | Encounter Summary ---
Author Organization [employer] Address 75 [facility] 7t [place] [address] Care Team Providers Care Product Development Ecologist Name Role Phone Jennie Murray MD Primary Care Provider Petra Wiley Primary Care Provider [phone] Willard Waters Unavailable [phone] September Unavailable Juan Sandra MD Unavailable [phone] Brigid Guy NP Unavailable Vicente Mooney MD Unavailable Beth Rai MD Unavailable Michell Espinoza Unavailable Encounter Details Date Type Department Care Team (Latest Contact Info) Description 09/12/2020 Abstract [facility] CONVERSIONS Dental, Provider, DDS Social History Tobacco [...] Care Team (Late st Contact Info) Description 10/06/2024 3:30 PM EDT Clinical Support [facility] DIABETES/NUTRITION [address] [place] [address] [place] [address] 10/27/2024 2:30 PM EDT Office Visit [facility] ADULT DENTAL 230 [place] [address] Venkat Barreto DDS 230 [place] [address] 11/04/2024 11:15 AM EDT Office Visit [address] [address] Petra Wiley FNP 505 [place] [address] 11/25/2024 9:15 AM EDT Office Visit [address] [address] Petra Wiley FNP 505 [place] [address] 01/18/2025 3:00 PM EDT Office Visit [facility] ADULT DENTAL 505 [place] [address] Sanaz Nelson documented as of this encounter Visit Diagnoses Not on filedocumented in this encounter Care Teams Product Development Ecologist Relationship Specialty Start Date End Date Jennie Murray MD [address] [place] [address] PCP - General Family Medicine 06/23/13 03/16/24 Petra Wiley FNP [address] [place] [address] PCP - General Family Medicine 03/17/24 Willard Waters [address] [place] [address] Rheumatology 05/17/24 Sumaya Kessler [address] 3rd [place] [address] Gastroenterology 05/17/24 Juan Sandra MD 575 [place] [address] Hematology and Oncology 05/17/24 Brigid Guy NP [address] [place] [address] Urology 05/17/24 Vicente Mooney MD [address] [place] [address] [address] [place] [address] Obstetrics and Gynecology 05/17/24 Beth Rai MD [address] [place] [address] Neurology 05/17/24 Michell Espinoza 11 [facility] 3rd [place] [address] Cardiology 05/17/24 Shelia Zheng Assistant Teacher PrimaryEdi Manager 09/26/23 documented as of this encounter
--- OUTSIDE RECORDS SUMMARY | 2024-09-14 16:30 | XMS_ITS | Encounter Summary ---
Author Organization [employer] Address 75 [facility] 7t [place] [address] Care Team Providers Care Commercial Loan Collection Officer Name Role Phone Jennie Murray MD Primary Care Provider [phone] Petra Wiley Primary Care Provider [phone] Willard Waters Unavailable [phone] September Unavailable Juan Sandra MD Unavailable [phone] Brigid Guy NP Unavailable Vicente Mooney MD Unavailable Beth Rai MD Unavailable [phone] Michell Espinoza Unavailable Encounter Details Date Type Department Care Team (Late st Contact Info) Description 05/18/2022 Orders Only [facility] MEDICINE 230 [place] [address] Jennie Murray MD 505 [place], [place] [phone] Acute foot pain, unspecified laterality (Primary Dx) [...] Description 10/06/2024 3:30 PM EDT Clinical Support [facility] DIABETES/NUTRITION 230 [place] [address] Tamanna Mcintyre, RD 230 [place] [address] 10/27/2024 2:30 PM EDT Office Visit [facility] ADULT DENTAL [address] [place] [address] Venkat Barreto DDS [address] [place] [address] 11/04/2024 11:15 AM EDT Office Visit [facility] MED[facility] [address] [place] [address] Petra Wiley FNP 505 [place] [address] 11/25/2024 9:15 AM EDT Office Visit [address] [address] Petra Wiley FNP 505 [place] [address] 01/18/2025 3:00 PM EDT Office Visit [facility] ADULT DENTAL 505 [place] [address] Sanaz Nelson documented as of this encounter Visit Diagnoses Diagnosis Acute foot pain, unspecified laterality- Primary documented in this encounter Care Teams Commercial Loan Collection Officer Relationship Specialty Start Date End Date Jennie Murray MD [address] [place] [address] PCP - General Family Medicine 06/23/13 03/16/24 Petra Wiley FNP [address] [place] [address] PCP - General Family Medicine 03/17/24 Willard Waters [address] [place] [address] Rheumatology 05/17/24 Victoria Sumaya [address] 3rd [place] [address] Gastroenterology 05/17/24 Juan Sandra MD 575 [place] [address] Hematology and Oncology 05/17/24 Brigid Guy NP [address] [place] [address] Urology 05/17/24 Vicente Mooney MD [address] [place] [address] [address] [place] [address] Obstetrics and Gynecology 05/17/24 Beth Rai MD [address] [place] [address] 140 [place] [address] Neurology 05/17/24 Michell Espinoza 11 [facility] 3rd [place] [address] Cardiology 05/17/24 Shelia Zheng Financial Institution Branch ManagerAutomatic Cigar Wrapper Tender 09/26/23 documented as of this encounter
--- OUTSIDE RECORDS SUMMARY | 2024-09-14 16:30 | XMS_ITS | Encounter Summary ---
Author Organization [employer] Address [address] [facility] 7t [place] [address] Care Team Providers Care Inspector Watch Assembly Name Role Phone Petra Wiley NIC Primary Care Provider Willard Waters Unavailable [phone] Kessler, September Unavailable Juan Sandra MD Unavailable [phone] Brigid Guy NP Unavailable Vicente Mooney MD Unavailable Beth Rai MD Unavailable Michell Espinoza Unavailable Encounter Details Date Type Department Care Team (Late st Contact Info) Description 05/20/2024 Orders Only [facility] [address] [place], [place] [id number] ProviderAddie MD Social History Tobacco Use Types [...] the past 12 months, has t he [employer], gas, oil or water company threatened to [...] Description 10/06/2024 3:30 PM EDT Clinical Support [facility] DIABETES/NUTRITION [address] [place] [address] Tamanna Mcintyre, ANGELINA [address] [place] [address] 10/27/2024 2:30 PM EDT Office Visit [facility] ADULT DENTAL [address] [place] [address] Venkat Barreto, DDS [address] [place] [address] 11/04/2024 11:15 AM EDT Office Visit [facility] MEDICINE [address] [place] [address] Petra Wiley, ADJUNCT POLITICAL SCIENCE INSTRUCTOR [address] [place] [address] 11/25/2024 9:15 AM EDT Office Visit [facility] MEDICINE [address] [place] [address] Petra Wiley FNP [address] [place] [address] 01/18/2025 3:00 PM EDT Office Visit [facility] CHC ADULT DENTAL [address] [place] [address] Sanaz Nelson documented as of this encounter [...] documented as of this encounter Care Teams Inspector Watch Assembly Relationship Specialty Start Date End Date Petra Wiley FNP [address] [place] [address] PCP - General Family Medicine 03/17/24 Willard Waters [address] [place] [address] Rheumatology 05/17/[address] 3rd [place] [address] Gastroenterology 05/17/24 Juan Sandra MD [address] [place] [address] Hematology and Oncology 05/17/24 Brigid Guy NP [address] [place] [address] Urology 05/17/24 Vicente Mooney MD [address] [place] [address] [address] [place] [address] Obstetrics and Gynecology 05/17/24 Beth Rai MD [address] [place] [address] [place] [address] Neurology 05/17/24 Michell Espinoza [address] 3rd [place] [address] Cardiology 05/17/24 Shelia Zheng Human Resource AdviserRail Car Repairman 09/26/23 documented as of this encounter
--- OUTSIDE RECORDS SUMMARY | 2024-09-14 16:30 | XMS_ITS | Encounter Summary ---
Author Organization [employer] Address [address] [facility] 7t [place] [address] Care Team Providers Care General Manager Land Department Name Role Phone Jennie Murray MD Primary Care Provider [phone] Petra Wiley Primary Care Provider Willard Waters Unavailable [phone] September Unavailable Juan Sandra MD Unavailable [phone] Brigid Guy NP Unavailable Vicente Mooney MD Unavailable Beth Rai MD Unavailable Michell Espinoza Unavailable Reason for Visit * Reason Onset Date Comments Appointment Request 12/25/2023 Encounter Details Date Type Department Care Team (Late st Contact Info) Description 12/25/2023 Telephone [facility] MEDICINE [address] [place] [address] Jennie Murray MD [address] [place], [place] [id number] Appointment Request Social History Tobacco Use Types [...] 12/25/2023 1:07 PM EDT Tc from Patrice, customer care assistant with [employer], calling to schedule appt for pt. Pt is awaiting transfer pt appt with Dr. Wiley in which functional tester typewriters attempted to schedule but found no availability. Please contact Partice at [phone]. documented in this encounter Plan of Treatment Upcoming Encounters Date Type Department Care Team (Late st Contact Info) Description 10/06/2024 3:30 PM EDT Clinical Support [facility] DIABETES/NUTRITION [address] [place], [place] [phone] Tamanna Mcintyre [address] [place] [address] 10/27/2024 2:30 PM EDT Office Visit [facility] ADULT DENTAL [address] [place], [place] [phone] Venkat Barreto DDS [address] [place] [address] 11/04/2024 11:15 AM EDT Office Visit [facility] [address] [place] [address] Petra Wiley FNP [address] [place] [address] 11/25/2024 9:15 AM EDT Office Visit [facility] [address] [place] [address] Petra Wiley FNP [address] [place] [address] 01/18/2025 3:00 PM EDT Office Visit [facility] CH[facility] ADULT DENTAL 505 [place] [address] Sanaz Nelson documented as of this encounter Visit Diagnoses Not on filedocumented in this encounter Additional Health Concerns Assessment Noted Time PHQ-9 Depression Total Score: 0 07/04/19 23 3:01 PM EST documented as of this encounter Care Teams General Manager Land Department Relationship Specialty Start Date End Date Jennie Murray MD [address] [place] [address] PCP - General Family Medicine 06/23/13 03/16/24 Petra Wiley FNP [address] [place] [address] PCP - General Family Medicine 03/17/24 Willard Waters [address] [place] [address] Rheumatology 05/17/24 Sumaya [address] 3rd [place] [address] Gastroenterology 05/17/24 Juan Sandra MD [address] [place] [address] Hematology and Oncology 05/17/24 Brigid Guy NP [address] [place] [address] Urology 05/17/24 Vicente Mooney MD [address] [place] [address] [address] [place] [address] Obstetrics and Gynecology 05/17/24 Beth Rai MD [address] [place] [address] Dr Rangel [address] [place] [address] Neurology 05/17/24 Michell Espinoza [address] [facility] 3rd [place] [address] Cardiology 05/17/24 Shelia Zheng Copy Lathe TenderRodding Machine Tender 09/26/23 documented as of this encounter
--- OUTSIDE RECORDS SUMMARY | 2024-09-14 16:30 | XMS_ITS | Encounter Summary ---
Author Organization [email or web address] Address [address] [place] [address] 7t [place] [address] Care Team Providers Care Dental Technician Name Role Phone Jennie Murray MD Primary Care Provider Petra Wiley Primary Care Provider Willard Waters Unavailable [phone] September Unavailable Juan Sandra MD Unavailable [phone] Brigid Guy NP Unavailable Vicente Mooney MD Unavailable Beth Rai MD Unavailable Michell Espinoza Unavailable Reason for Visit * Reason Onset Date Comments medication 09/19/2022 Encounter Details Date Type Department Care Team (Late st Contact Info) Description 09/19/2022 Telephone [facility] CHC ADULT DENTAL [address] [place], [place] [phone] Venkat Barreto DDS [address] [place] [address] medication Social History Tobacco Use Types Packs/Day [...] EDT Script was sent for Augementin to [facility] in [place]. Patient went in to clam picker script and they stated there was nothing there. Contacted [facility] and they stated that nationwide there was a shut down on their system for about 3 hours so it doesn't look like they received it. Can it be resent for patient? documented in this encounter Plan of Treatment Upcoming Encounters Date Type Department Care Team (Late st Contact Info) Description 10/06/2024 3:30 PM EDT Clinical Support [facility] DIABETES/NUTRITION [address] [place] [address] Tamanna Mcintyre, ANGELINA [address] [place] [address] 10/27/2024 2:30 PM EDT Office Visit [facility] ADULT DENTAL [address] [place] [address] Venkat Barreto, DDS [address] [place] [address] 11/04/2024 11:15 AM EDT Office Visit [facility] MEDICINE [address] [place] [address] Petra Wiley FNP [address] [place] [address] 11/25/2024 9:15 AM EDT Office Visit [facility] MEDICINE [address] [place] [address] Petra Wiley FNP [address] [place] [address] 01/18/2025 3:00 PM EDT Office Visit [facility] CHC ADULT DENTAL [address] [place] [address] Sanaz Nelson documented as of this encounter Visit Diagnoses Not on filedocumented in this encounter Additional Health Concerns Assessment Noted Time PHQ-9 Depression Total Score: 0 07/04/19 23 3:01 PM EST documented as of this encounter Care Teams Dental Technician Relationship Specialty Start Date End Date Jennie Murray MD [address] [place] [address] PCP - General Family Medicine 06/23/13 03/16/24 Petra Wiley FNP [address] [place] [address] PCP - General Family Medicine 03/17/24 Willard Waters [address] [place] [address] Rheumatology 05/17/[address] [facility] [address] 3rd [place] [address] Gastroenterology 05/17/24 Juan Sandra MD [address] [place] [address] Hematology and Oncology 05/17/24 Brigid Guy NP [address] [place] [address] Urology 05/17/24 Vicente Mooney MD [address] [place] [address] [address] [place] [address] Obstetrics and Gynecology 05/17/24 Beth Rai MD [address] [place] [address] [place] [address] Neurology 05/17/24 Michell Espinoza 11 [facility] 3rd [place] [address] Cardiology 05/17/24 Shelia Zheng Manager LinuxSupervisor Ditching 09/26/23 documented as of this encounter
--- OUTSIDE RECORDS SUMMARY | 2024-09-14 16:30 | XMS_ITS | Clinical Summary ---
Author Organization [employer] Address [address] [place] [address] [address] [place] [address] Care Team Providers Care Lead Programmer Analyst Name Role Phone Petra Wiley NIC Primary Care Provider Willard Waters Unavailable [phone] September Unavailable Juan Sandra MD Unavailable [phone] Brigid Guy NP Unavailable Vicente Mooney MD Unavailable Beth Rai MD Unavailable [phone] Michell Espinoza Unavailable Allergies Active Allergy Reactions [...] MINDA VECES AL D A Active Creon [id number] units capsule delayed-release particles capsule TOME ADRY [...] 1 week. 3.5 g 02/18/2 025 Active nabumetone (Relafen) 750 MG tablet Take 1 tablet (750 mg) by mouth if needed in the morning and at bedtime (pain). PLEASE SEE ATTACHED FOR DETAILED DIRECTIONS 60 tablet 2 Active amoxicillin (Amoxil) 500 MG capsule Take 1 capsule (500 mg) by mouth every 8 (eight) hours for 7 days. 21 capsule 025 2024 nabumetone (Relafen) 750 MG tablet PLEASE SEE ATTACHED FOR DETAILED DIRECTIONS 024 2024 Discontinued(R eorder (will not trigger notification to Pharmacy)) Active Problems Problem Noted Date Diagnosed Date Erythromelalgia 08/18/2024 Polyarthralgia 08/18/2024 Nephrolithiasis 07/29/2024 Overview (07/29/2024): 04/15/24: US Renal Bl ordered by Brigid LUCERO. Identified bilateral nonobstructing kidney stones. History of nutritional disorder 07/27/2024 History of musculoskeletal disorder 07/27/2024 Hordeolum externum of left lower eyelid 07/24/19 25 Palpitations 05/17/2024 Overview (05/17/2024): Followed by [facility] Cards Continues on Propranolol 20mg BID (through Cards) Class 1 obesity with body ma ss index (BMI) of 32.0 to 32.9 in adult 05/17/2024 Assessment & Plan (07/29/2024 4:08 PM EST): - Cont following with veterinary surgery technician and healthy lifestyle interventions Assessment & Plan [...] of medullary thyroid cancer or MEN 2. Medical Lab Tech Instructor referral offered. Recommended to decrease soda and [...] bruising easily 03/17/2024 Overview (03/17/2024): Followed by [facility] Heme/Onc - Dr. Sandra Per consult Jan [...] 04/17/2021 HCT 36.5 (L) 03/18/2024 Following with [facility] Heme/Onc - Dr. Turner Assessment & Plan [...] - Has consulted with Surgery team in [facility] for consideration of excision. Per their [...] - Has consulted with Surgery team in [facility] for consideration of excision. Per their consult Mar 2024, identified area has normal lobular fat, no discrete lipoma or nodules. Plan: conservative measures Abnormal uterine bleeding 12/27/2023 Overview (07/29/2024): Following with [facility] BAG LOADER - Dr. Mooney EMB performed 04/14/24. Path: [...] Overview (05/17/2024): Lab Results Component Value Date [id number] 19.9 (L) 03/18/2024 [id number] 19 (A) 05/08/2023 - Cont Vit D [...] Overview (05/17/2024): Pap NIL/HPV Neg 11/12/2019 Dental: [facility] Dental Last PE: 06/03/23 Hep B Immune: Mar 2024 Gastroesophageal reflux disease without esophagi tis 06/03/2023 Overview (06/03/2023): ?? Followed by [facility] GI Varghese Kessler DEVELOPMENTAL TRAINING COUNSELOR ?? Continues famotidine and Dexliant through GI Irritable bowel syndrome with constipation 06/03 Overview (03/17/2024): Followed up [facility] GI Varghese Kessler DEVELOPMENTAL TRAINING COUNSELOR Continues Bentyl TID Continues Bisacodyl 10mg nightly Dysphagia, oropharyngeal phase 06/03/2023 Overview (06/03/2023): ?? Followed by [facility] GI Varghese Kessler APRN Gastroparesis 06/03/2023 Overview (03/17/2024): Followed by [facility] GI Continues with the following medication regimen for multiple GI symptoms and conditions: Creon, famotidine, psyllium, dicyclomine, simethicone, and Dexliant Previous medications: carafate NURIA positive 06/03/2023 Overview (07/29/2024): Previous followed by [facility] Rheum - Dr. Waters May 2024: Established with [facility] Rheum - Dr. Street NURIA positive 2020: 1:160, anti dna, nicholas, ESR, CRP all wnl Disorder of sesamoid bone of foot 06/03/2023 Overview (06/03/2023): -Left lateral sesamoid stress fx identified Jul 2022 at [facility] -Plan for immobilization in short walking boot and follow up 6 weeks Assessment & Plan (06/03/2023 10:28 PM EST): Plan to request latest records from [facility] and follow up with PCP to discuss eligibility handicap placard. Fibromyalgia 08/02/2022 Overview (07/29/2024): -Previously: Lyrica 75mg nightly through [facility] Physiatry/Rheum -Lyrica rx [...] Encounters Date Type Department Care Team Description 09/11/2024 2:00 PM EDT Office Visit [facility] ADULT DENTAL [address] [place] [address] Venkat Barreto DDS 09/08/2024 3:00 PM EDT Clinical Support [facility] DIABETES/NUTRITION [address] [place] [address] Class 2 obesity with body mass index (BMI) of 35.0 to 35.9 in adult, unspecified obesity type, unspecified whether serious comorbidity present; Class 1 obesity with body mass index (BMI) of 32.0 to 32.9 in adult, unspecified obesity type, unspecified whether serious comorbidity present 09/08/2024 Travel 09/07/2024 Orders Only [facility] CHC MED & PEDS [address] [place] [address] Petra Wiley FNP 09/07/2024 Travel 09/07/2024 Telephone [facility] MEDICINE [address] [place] [address] Petra Wiley FNP March recall 08/28/2024 Population Health Risk Score [facility] (C3) Department [address] [place] [id number] Provider, Population Health Generic 08/18/2024 1:30 PM EST Office Visit [facility] ADULT DENTAL [address] [place] [address] Venkat Barreto DDS Erythromelalgia ([facility]) (Primary Dx); Polyarthralgia 08/17/2024 Orders Only GENERIC EXTERNAL DATA DEPARTMENT Provider, Generic External Data 08/17/2024 Telephone [facility] MEDICINE [address] [place] [address] Petra Wiley FNP Referral 08/14/2024 1:30 PM EST Clinical Support [facility] DIABETES/NUTRITION [address] [place] [address] Tamanna Mcintyre, RD BMI 35.0-35.9,adult (Primary Dx) 08/14/2024 Travel 08/11/2024 Orders Only GENERIC EXTERNAL DATA DEPARTMENT Provider, Generic External Data 08/04/2024 2:30 PM EST Office Visit [facility] OPTOMETRY [address] [place], [place] [phone] Waqas, Cristine, OD Hordeolum internum of left lower eyelid (Primary Dx); Dry eyes, bilateral; White without pressure of peripheral retina of both eyes; Hyperopia of right eye 08/04/2024 Travel 07/31/2024 Telephone [facility] MEDICINE [address] [place], [place] [phone] Petra Wiley FNP Patient request 07/29/2024 10:30 AM EST Office Visit [facility] MEDICINE [address] [place] [phone] Petra Wiley FNP Asthma, unspecified asthma severity, [...] Travel 07/28/2024 1:30 PM EST Clinical Support [facility] DIABETES/NUTRITION [address] [place] [address] BMI 35.0-35.9,adult (Primary Dx) 07/28/[address] [facility] MED & PEDS [address] [place] [address] Shireen Eagle MA Chart Prep 07/28/2024 Travel 07/24/2024 2:30 PM EST Office Visit [facility] ADULT DENTAL [address] [place] [address] Venkat Barreto DDS 07/24/2024 2:00 PM EST Office Visit [facility] WALK-IN CENTER [address] [place] [address] Sylvia Lemons MD Hordeolum externum of left lower eyelid (Primary Dx) 07/20/2024 3:00 PM EST Office Visit [facility] ADULT DENTAL [address] [place] [address] Sanaz Nelson 07/20/2024 2:00 PM EST Clinical Support [facility] DIABETES/NUTRITION [address] [place] [address] BMI 35.0-35.9,adult (Primary Dx) 07/20/2024 Travel 07/12/[address] [facility] MED & PEDS [address] [place] [address] Petra Wiley FNP Seasonal allergies 07/10/2024 2:00 PM EST Nutrition [facility] DIABETES/NUTRITION [address] [place] [address] Body mass index (BMI) of 35.0 to 35.9 in adult (Primary Dx) 07/10/2024 1:00 PM EST Office Visit [facility] ADULT DENTAL [address] [place] [address] Venkat Barreto, DDS 07/10/2024 Travel 07/02/2024 1:30 PM EST Nutrition [facility] DIABETES/NTRN [address] [place] [address] Adult body mass index 35.0-35.9 (Primary Dx) 07/02/2024 Travel 06/30/2024 3:00 PM EST Office Visit [facility] ADULT DENTAL [address] [place] [address] Mary LouDavidVenkat, DDS 06/23/[address] [facility] MED & PEDS [address] [place] [address] Petra Wiley FNP from Last 3 Months [...] Sign Reading Time Taken Comments Blood Pressure 128/62 09/11/2024 2:18 PM EDT Pulse 76 07/29/2024 11:19 AM EST Temperature 36.7 ??C (98.1 ??F) 07/29/2024 11:[address] Respiratory Rate 19 07/29/2024 11:19 AM EST Oxygen Saturation 99% 07/29/2024 11:19 AM EST Inhaled Oxygen Concentration - - Weight 71.7 kg (158 lb) 09/10/2024 11:50 AM EDT Height 149.9 cm (4' 11 ) 09/10/2024 11:50 AM EDT Body Mass Index 31.91 09/10/2024 11:50 AM EDT Plan of Treatment Upcoming Encounters Date Type Department Care Team (Late st Contact Info) Description 10/06/2024 3:30 PM EDT Clinical Support [facility] DIABETES/NUTRITION [address] [place] [address] Tamanna Mcintyre, RD [address] [place] [address] 10/27/2024 2:30 PM EDT Office Visit [facility] ADULT DENTAL [address] [place] [address] Mary LouDavid lancasterVenkat, DDS [address] [place] [address] 11/04/2024 11:15 AM EDT Office Visit [facility] MEDICINE [address] [place] [address] Petra Wiley, FURNACE COMBUSTION ANALYST [address] [place] [address] 11/25/2024 9:15 AM EDT Office Visit [facility] MEDICINE [address] [place] [address] Petra Wiley FNP [address] [place] [address] 01/18/2025 3:00 PM EDT Office Visit [facility] ADULT DENTAL [address] [place] [address] Sanaz Nelson Health Maintenance Due Date Last [...] 07/20/2024, 0 12/25/2023, 06/25/2023, Additional history exists Diagnostic Breast Imaging 03/04/20252024, 09/01/2024, 11/19/2023, Additional history exists Mammogram 03/04/2025 09/01/2024, 08/15, 11/19/2023, Additional history exists Alcohol/Substance Use Screening 03/16/2025 03/16/2024 Depression Screening 03/16/2025 03/16/2024, 03/16/20 SDOH Screening 03/16/2025 03/16/2024 COVID-19 Vaccine ( season) 2025 Postponed from 02/16/2024 (Patient Refused) Dental X-Ray: Bitewings 07/21/2025 07/20/19 25, 12/25/2023, 06/24/2023, Additional history exists Dental X-Ray: Full Mouth 08/03/2025 08/02/2022 Tobacco Screening 08/19/2025 08/19/2024 DTaP/Tdap/Td Vaccines (1 - Tdap) 09/30/2025 10/14/2015 Postponed from 10/15/2015 (Other Medical Reasons) Lipid Panel 03/18/2029 03/18/2024, 05/06/2023, 04/17/2021 Zoster Vaccines (1 of 2) 2037 [...] Procedure Name Priority Date/Time Associated Diagnosis Comments BI MAMMOGRAM DIAGNOSTIC TOMOSYNTHESIS BILATERAL Routine 09/01/2024 12:30 PM EDT BI US BREAST LIMITED RIGHT Routine 09/01/2024 12:30 PM EDT Breast pain, right CASE PRESENTATION, DETAILED AND EXTENSIVE TREATMENT PLANNING Routine 08/18/2024 1:30 PM EST 14 ENDODONTIC THERAPY, MOLAR TOOTH Routine 08/18/2024 1:30 PM EST URINALYSIS WITH REFLEX MICROSCOPIC Routine 08/17/2024 2:00 [...] Recently Relevant to Health Maintenance Results * BI US Breast Limited Right (09/01/2024 12:30 PM EDT) Anatomical Region Laterality Modality Breast Right Ultrasound 09/01/2024 12:3 0 PM EDT Narrative 09/01/2024 3:58 PM EDT ? [facility] ? [address] ?[place] [address] ? Ultrasound Report ? Signed ? Patient: Ambika Mcdermott ?MR#: [id number] ?? [id number] ? : 1985 ?Acct:[id number] ? Age/Sex: 39 / F ?ADM Date: 09/01/24 ? Loc: HO.MAMMO ? Attending Dr: Petra Wiley FURNACE COMBUSTION ANALYST ? Ordering Physician: Petra Wiley ?? Date of Service: 09/01/24 ?? Procedure(s): US breast RT limited ?? Accession Number(s): [id number] ? cc: Petra Wiley FURNACE COMBUSTION ANALYST ? EXAMINATION: ?? MM DIAGNOSTIC DIGITAL BREAST TOMOSYNTHESIS, BILATERAL ?? Limited right breast ultrasound. ? CLINICAL INFORMATION: ? Palpable right breast lump lower inner quadrant. ? COMPARISON: ?? Mammography: Comparison is made with relevant prior exams. ? TECHNIQUE: ?? Digital breast mammography with tomosynthesis is performed in both the ?? craniocaudal and mediolateral oblique views along with computer-aided ?? detection (CAD). ? FINDINGS: ?? The breasts are heterogeneously dense, which may obscure small masses ?? (ACR BI-RADS breast composition Category c). ?? Left: ?? Marker clips. ?? There are no significant masses, abnormal calcifications, or other ?? abnormalities. ? Right: ?? Marker clip in the upper outer breast. ?? BB marker in the lower inner quadrant at site of patient's palpable ?? lump with an underlying 2 cm from the palpable mass. ?? No suspicious calcifications or other abnormal findings. ? Targeted color Doppler ultrasound scanning in the area of the patient's ?? palpable lump demonstrates a hypoechoic oval circumscribed solid mass ?? at 3:00 4 cm from nipple measuring 19 x 19 x 12 mm. The morphology ?? appears to be a fibroadenoma. Patient has previous benign bilateral ?? needle core biopsies of fibroadenomas. This mass correlates with the ?? palpable area and circumscribed oval mass on mammography. ? Results are provided to the patient at time of visit by the ?? technologist. ? US/US breast RT limited ?? IMPRESSION: ?? Left: Benign. ? Right: Circumscribed oval mass at 3:00 in the area the patient's ?? palpable lump with morphology of a fibroadenoma. Six-month follow-up ?? versus ultrasound-guided core needle biopsy were offered to the ?? patient. The patient prefers 6 month follow-up at this time for further ?? evaluation. ? ASSESSMENT: ? BI-RADS BI-RADS 3 - Probably benign finding(s) - 6 month follow-up ?? suggested ? RECOMMENDATION: ?? 6 Month F/U ? This patient's information was entered into a reminder system with a ?? target due date for their next mammogram. ? Electronically signed by: ??Eneida Núñez DO ??09/01/2024 03:55 PM EDT ?? RP ? Dictated By: ?Wilton,Eneida DO ? Signed By: ?<Electronically signed by Eneida Núñez, DO in OV> ? 09/01/24 1555 ? DD/ 1230 ? TD/TT: 09/01/24 1332 ? Photo Print Specialist: ? Procedure Note Rain Chowdary - 09/01/2024 [place] [facility] [address] [place], [place] [address] Ultrasound Report Signed Patient: Ambika Mcdermott#: [id number] : 1985Acct:[id number] Age/Sex: 39 / FADM Date: 09/01/24 Loc: HO.MAMMO Attending Dr: Petra LUCERO Ordering Physician: Petra Wiley Date of Service: 09/01/24 Procedure(s): US breast RT limited Accession Number(s): [id number] cc: Petra Wiley EXAMINATION: MM DIAGNOSTIC DIGITAL BREAST TOMOSYNTHESIS, BILATERAL Limited right breast ultrasound. CLINICAL INFORMATION: Palpable right breast lump lower inner quadrant. COMPARISON: Mammography: Comparison is made with relevant prior exams. TECHNIQUE: Digital breast mammography with tomosynthesis is performed in both the craniocaudal and mediolateral oblique views along with computer-aided detection (CAD). FINDINGS: The breasts are heterogeneously dense, which may obscure small masses (ACR BI-RADS breast composition Category c). Left: Marker clips. There are no significant masses, abnormal calcifications, or other abnormalities. Right: Marker clip in the upper outer breast. BB marker in the lower inner quadrant at site of patient's palpable lump with an underlying 2 cm from the palpable mass. No suspicious calcifications or other abnormal findings. Targeted color Doppler ultrasound scanning in the area of the patient's palpable lump demonstrates a hypoechoic oval circumscribed solid mass at 3:00 4 cm from nipple measuring 19 x 19 x 12 mm. 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 This mass correlates with the palpable area and circumscribed oval mass on mammography. Results are provided to the patient at time of visit by the technologist. US/US breast RT limited IMPRESSION: Left: Benign. Right: Circumscribed oval mass at 3:00 in the area the patient's palpable lump with morphology of a fibroadenoma. Six-month follow-up versus ultrasound-guided core needle biopsy were offered to the patient. The patient prefers 6 month follow-up at this time for further evaluation. ASSESSMENT: BI-RADS BI-RADS 3 - Probably benign finding(s) - 6 month follow-up suggested RECOMMENDATION: 6 Month F/U This patient's information was entered into a reminder system with a target due date for their next mammogram. Electronically signed by: Eneida Núñez DO 09/01/2024 03:55 PM EDT RP Dictated By: Eneida Núñez DO Signed By: <Electronically signed by Eneida Núñez DO in OV> 09/01/24 1555 DD/ 1230 TD/TT: 09/01/24 1332 Photo Print Specialist: us Petra Isaiaskiersten FURNACE COMBUSTION ANALYST IMG US PROCEDURES Final Result * BI Mammogram Diagnostic Tomosynthesis Bilateral (09/01/2024 12:30 PM EDT) Anatomical Region Laterality Modality Breast Bilateral Mammography 09/01/2024 12:3 0 PM EDT Narrative 09/01/2024 3:58 PM EDT ? [facility] ? [address] [place] [address] ? Mammography Report ? Signed ? Patient: Ambika Mcdermott ?MR#: [id number] ?? [id number] ? : 1985 ?Acct:[id number] ? Age/Sex: 39 / F ?ADM Date: 09/01/24 ? Loc: HO.MAMMO ? Attending Dr: Petra Wiley FURNACE COMBUSTION ANALYST ? Ordering Physician: Petra Wiley FURNACE COMBUSTION ANALYST ?Results: 3.6MPr ?? obably Benign Finding - Short 6 M F/U Suggested ? Date of Service: 09/01/24 ?Follow Up: 6 Month F/U ? Procedure(s): MM tomosynthesis diagnostic BI ?? Accession Number(s): [id number] ? cc: Petra Wiley FURNACE COMBUSTION ANALYST ? EXAMINATION: ?? MM DIAGNOSTIC DIGITAL BREAST TOMOSYNTHESIS, BILATERAL ?? Limited right breast ultrasound. ? CLINICAL INFORMATION: ? Palpable right breast lump lower inner quadrant. ? COMPARISON: ?? Mammography: Comparison is made with relevant prior exams. ? TECHNIQUE: ?? Digital breast mammography with tomosynthesis is performed in both the ?? craniocaudal and mediolateral oblique views along with computer-aided ?? detection (CAD). ? FINDINGS: ?? The breasts are heterogeneously dense, which may obscure small masses ?? (ACR BI-RADS breast composition Category c). ?? Left: ?? Marker clips. ?? There are no significant masses, abnormal calcifications, or other ?? abnormalities. ? Right: ?? Marker clip in the upper outer breast. ?? BB marker in the lower inner quadrant at site of patient's palpable ?? lump with an underlying 2 cm from the palpable mass. ?? No suspicious calcifications or other abnormal findings. ? Targeted color Doppler ultrasound scanning in the area of the patient's ?? palpable lump demonstrates a hypoechoic oval circumscribed solid mass ?? at 3:00 4 cm from nipple measuring 19 x 19 x 12 mm. The morphology ?? appears to be a fibroadenoma. Patient has previous benign bilateral ?? needle core biopsies of fibroadenomas. This mass correlates with the ?? palpable area and circumscribed oval mass on mammography. ? Results are provided to the patient at time of visit by the ?? technologist. ? MM/MM tomosynthesis diagnostic BI ?? IMPRESSION: ?? Left: Benign. ? Right: Circumscribed oval mass at 3:00 in the area the patient's ?? palpable lump with morphology of a fibroadenoma. Six-month follow-up ?? versus ultrasound-guided core needle biopsy were offered to the ?? patient. The patient prefers 6 month follow-up at this time for further ?? evaluation. ? ASSESSMENT: ? BI-RADS BI-RADS 3 - Probably benign finding(s) - 6 month follow-up ?? suggested ? RECOMMENDATION: ?? 6 Month F/U ? This patient's information was entered into a reminder system with a ?? target due date for their next mammogram. ? Electronically signed by: ??Eneida Núñez DO ??09/01/2024 03:55 PM EDT ?? RP ? Dictated By: ?Eneida Núñez DO ? Signed By: ?<Electronically signed by Eneida Núñez, in OV> ? 09/01/24 1555 ? DD/ 1230 ? TD/TT: 09/01/24 1332 ? Photo Print Specialist: ? Procedure Note Donotuseinterpreter, Image - 09/01/2024 [facility] [address] [place], [place] [address] Mammography Report Signed Patient: Elise Mcdermott#: [id number] : 1985Acct:[id number] Age/Sex: 39 / FADM Date: 09/01/24 Loc: HO.MAMMO Attending Dr: Petra Wiley FURNACE COMBUSTION ANALYST Ordering Physician: Petra Wiley FNPResults: 3.6MPr obably Benign Finding - Short 6 M F/U Suggested Date of Service: 09/01/24Follow Up: 6 Month F/U Procedure(s): MM tomosynthesis diagnostic BI Accession Number(s): [id number] cc: Petra Wiley FURNACE COMBUSTION ANALYST EXAMINATION: MM DIAGNOSTIC DIGITAL BREAST TOMOSYNTHESIS, BILATERAL Limited right breast ultrasound. CLINICAL INFORMATION: Palpable right breast lump lower inner quadrant. COMPARISON: Mammography: Comparison is made with relevant prior exams. TECHNIQUE: Digital breast mammography with tomosynthesis is performed in both the craniocaudal and mediolateral oblique views along with computer-aided detection (CAD). FINDINGS: The breasts are heterogeneously dense, which may obscure small masses (ACR BI-RADS breast composition Category c). Left: Marker clips. There are no significant masses, abnormal calcifications, or other abnormalities. Right: Marker clip in the upper outer breast. BB marker in the lower inner quadrant at site of patient's palpable lump with an underlying 2 cm from the palpable mass. No suspicious calcifications or other abnormal findings. Targeted color Doppler ultrasound scanning in the area of the patient's palpable lump demonstrates a hypoechoic oval circumscribed solid mass at 3:00 4 cm from nipple measuring 19 x 19 x 12 mm. 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 This mass correlates with the palpable area and circumscribed oval mass on mammography. Results are provided to the patient at time of visit by the technologist. MM/MM tomosynthesis diagnostic BI IMPRESSION: Left: Benign. Right: Circumscribed oval mass at 3:00 in the area the patient's palpable lump with morphology of a fibroadenoma. Six-month follow-up versus ultrasound-guided core needle biopsy were offered to the patient. The patient prefers 6 month follow-up at this time for further evaluation. ASSESSMENT: BI-RADS BI-RADS 3 - Probably benign finding(s) - 6 month follow-up suggested RECOMMENDATION: 6 Month F/U This patient's information was entered into a reminder system with a target due date for their next mammogram. Electronically signed by: Eneida Núñez DO 09/01/2024 03:55 PM EDT Dictated By: Eneida Núñez DO Signed By: <Electronically signed by Eneida Núñez DO in OV> 09/01/24 1555 DD/ 1230 TD/TT: 09/01/24 1332 Photo Print Specialist: Petra VALENCIAP IMG BI PROCEDURES Final Result * Urinalysis w/reflex microscopic (08/17/2024 2:00 PM EST) Color Urine Yellow LABS Appearance Urine Clear LABS PH 5.5 5.0 - 9.0 LABS Glucose Urine UA Negative Negative mg/dL LABS Urine Blood Negative Negative LABS Specific [place] - Urine 1.010 1.005 - 1.025 LABS Urine Protein Negative Neg-Trace mg/dL LABS Urine Ketones Negative Negative mg/dL LABS Nitrite Urine Negative Negative [facility] LABS Leukocyte Esterase Urine Negative Negative LABS 08/17/2024 2:00 PM EST 08/17/2024 2:25 PM EST Narrative LABS - 08/17/2024 2:36 PM EST Urine, Clean Catch Generic External Data Provider LAB URINE ORDERAB LES Final Result Performing Organization Address [facility]/ZIP Co de Phone Number LABS [address] [place] [phone] * Culture, Urine, Routine (08/11/2024 2:36 PM EST) Urine Urine specimen obtained by clean catch procedure / Unknown 08/11/2024 2:36 PM EST 08/11/2024 4:01 PM EST Comment:[facility] Narrative LABS - 08/13/2024 9:47 AM EST Urine Culture Report Result Urine Culture 10,000 to 50,000 cfu/ml Urine Culture Mixed bacterial terry characteristic of Urine Culture urogenital contamination. Specimen Source: Urine clean catch Generic External Data Provider LAB MICROBIOLOGY - GENERAL ORDERABLES Final Result Performing Organization Address [facility]/ZIP Co de Phone Number LABS [address] [place] [phone] * Hepatitis C Viral RNA, Quantitative, Real-Time PCR (03/18/2024 2:05 PM EDT) Hepatitis C Viral Load <15 NOT DETECTED NOT DETECTED IU/mL LABS HCV Log PCR <1.18 NOT DETECTED NOT DETECTED Log IU/mL LABS Comment:For additional infor mation, please refer tohttp://education.Toxic Attire.Vopium/faq/[email or web address](This link is being provided for informational/educational purposes only.)THIS TEST WAS PERFORMED AT:[facility] [place] [phone] DEL CID MD Blood 03/18/2024 2:05 PM EDT 03/18/2024 2:05 PM EDT Petra Wiley [facility] LAB BLOOD ORDERABLES Final Res ult Performing Organization Address [facility]/ZIP Co de Phone Number LABS [address] [place] [phone] * HIV-1/2 Antigen and Antibodies, Fourth Generation, with Reflexes (03/18/2024 2:05 PM EDT) HIV AB/AG Nonreactive Nonreactive [facility] LABS Comment:HIV-1 p24 Ag and/or HIV-1/HIV-2 Ab not detected.A test result that is nonreactive does not exclude thepossibility of exposure to or infection with HIV-1 and/orHIV-2. Nonreactive results in this assay for individualswith prior exposure to HIV-1 and/or HIV-2 may be due toantigen and antibody levels that are below the limit ofdetection of this assay.The testbirds HIV Ag/Ab Combo assay result andsupplemental assay results should be interpreted inconjunction with the patient's clinical presentation,history and other laboratory results. If the results areinconsistent with clinical evidence, additional testing issuggested to confirm the result. Blood Venous blood specimen / Unknown 03/18/2024 2:05 PM EDT 03/18/2024 2:05 PM EDT Petra Wiley [facility] LAB BLOOD ORDERABLES Final Res ult Performing Organization Address [facility]/ZIP Co de Phone Number LABS [address] [place] [phone] * (ABNORMAL) Lipid Panel, Standard (03/18/2024 2:05 PM EDT) Triglycerides 100 <150 mg/dL [facility] LABS Comment:Desirable Triglyceri de: less than 150 mg/dLBorderline High Triglyceride 150-199 mg/dLHigh Triglyceride: 200-499 mg/dLVery High Triglyceride: greater than or equal to 5OO mg/dL Cholesterol 200(H) <200 mg/dL LABS Comment:Desirable Cholestero l: less than 200 mg/dLBorderline High Cholesterol: 200-239 mg/dLHigh Cholesterol: greater than 239 mg/dL LDL Cholesterol Calculated 128(H) <100 mg/dL LABS Comment:Desirable LDL: less than 100 mg/dLNear Optimal/Above Optimal LDL: 110- 129 mg/dLBorderline High LDL: 130-159 mg/dLHigh LDL: 160-189 mg/dLVery High LDL: greater than or equal to 190 mg/dL HDL Cholesterol 52 >40 mg/dL [facility] LABS Comment:Desirable HDL: great er than 40 mg/dL Note: This HDL assay may give artificially low results in patients with liver disease. Blood Venous blood specimen / Unknown 03/18/2024 2:05 PM EDT 03/18/2024 2:05 PM EDT Petra Wiley FURNACE COMBUSTION ANALYST LAB BLOOD ORDERABLES Final Res ult Performing Organization Address City/[facility]/ZIP Co de Phone Number LABS [address] [place] [phone] * Pap Smear (11/12/2019 12:00 AM EDT) Swab Historical Provider MD LAB CYTOLOGY ORDERABLES F inal Result Performing Organization Address City/State/[facility] Co de Phone Number EXTERNAL LAB from Last 3 Months or Most Recently Relevant to Health Maintenance Insurance [facility] C3 [place] AD[place] Care Teams Lead Programmer Analyst Relationship Specialty Start Date End Date Petra Wiley FNP [address] [place] [address] PCP - General Family Medicine 03/17/24 Willard Waters [address] [place] [address] Rheumatology 05/17/24September 11 [facility] 3rd [place] [address] Gastroenterology 05/17/24 Juan Sandra MD [address] [place] [address] Hematology and Oncology 05/17/24 Brigid Guy NP [address] [place] [address] Urology 05/17/24 Vicente Mooney MD [address] [place] [address] [address] [place] [address] Obstetrics and Gynecology 05/17/24 Beth Rai MD [address] [place] [address] Dr R[address] [place] [address] Neurology 05/17/24 Michell Espinoza [address] 3rd [place] [address] Cardiology 05/17/24 Shelia Zheng Sheeter OperatorMedical Radiation Tech 09/26/23
--- OUTSIDE RECORDS SUMMARY | 2024-09-14 16:30 | XMS_ITS | Encounter Summary ---
Author Organization [facility] Address 75 [facility] 7t [place] [address] Care Team Providers Care Radiology Specialist Name Role Phone Jennie Murray MD Primary Care Provider [phone] Petra Wiley Primary Care Provider Willard Waters Unavailable [phone] September Unavailable Juan Sandra MD Unavailable [phone] Brigid Guy NP Unavailable Vicente Mooney MD Unavailable Beth Rai MD Unavailable Michell Espinoza Unavailable Encounter Details Date Type Department Care Team (Latest Contact Info) Description 09/03/2018 Abstract [facility] CONVERSIONS Dental, Provider, DDS Social [...] Description 10/06/2024 3:30 PM EDT Clinical Support [facility] DIABETES/NUTRITION [address] [place] [address] [place], [place] [phone] 10/27/2024 2:30 PM EDT Office Visit [facility] ADULT DENTAL [address] [place] [address] Venkat Barreto DDS [address] [place] [address] 11/04/2024 11:15 AM EDT Office Visit [address] [address] Petra Wiley FNP [address] [place] [address] 11/25/2024 9:15 AM EDT [facility] [address] [place] [address] Petra Wiley FNP [address] [place] [address] 01/18/2025 3:00 PM EDT Office Visit [facility] ADULT [facility]ENTAL [address] [place] [address] Sanaz Nelson documented as of this encounter Visit Diagnoses Not on filedocumented in this encounter Care Teams Radiology Specialist Relationship Specialty Start Date End Date Jennie Murray MD [address] [place] [address] PCP - General Family Medicine 06/23/13 03/16/24 Petra Wiley FNP [address] [place] [address] PCP - General Family Medicine 03/17/24 Willard Waters [address] [place] [address] Rheumatology 05/17/24 Sumaya [address] 3rd [place] [address] Gastroenterology 05/17/24 Juan Sandra MD [address] [place] [address] Hematology and Oncology 05/17/24 Brigid Guy NP [address] [place] [address] Urology 05/17/24 Vicente Mooney MD [address] [place] [address] [address] [place] [address] Obstetrics and Gynecology 05/17/24 Beth Rai MD [address] [place] [address] Neurology 05/17/24 Michell Espinoza [address] [facility] 3rd [place] [address] Cardiology 05/17/24 Shelia Zheng Automation Test DeveloperOffset Press Operator 09/26/23 documented as of this encounter
--- OUTSIDE RECORDS SUMMARY | 2024-09-14 16:30 | XMS_ITS | Encounter Summary ---
Author Organization [facility] Address [address] [place] [address] Care Team Providers Care Customer Order Clerk Name Role Phone Petra Wiley Primary Care Provider [phone] Reason for Referral * Surgical (Routine) - Pending Review Specialty Diagnoses / Procedures Referred By Mehreen linares Referred To Contact General Surgery Diagnoses Subcutaneous mass of right upper extremity Subcutaneous mass of abdominal wall [facility] [address] [place] [address] [facility] [address] [place] [address] Phone: tel: fax: Referral ID Status Reason Start Date Expiration Date Visits Requested Visits Authorized [id number] Pending Review Specialty Services Required 06/26/2024 12/26/2025 6 6 Encounter Details Date Type Department Care Team (Latest Contact Info) Description 06/26/2024 Transcribe Orders [facility] [address] [place] [address] Petra Wiley [address] [place] [address] Subcutaneous mass of right upper extremity (Primary [...] Care Team (Late st Contact Info) Description 11/02/2024 2:20 PM EDT Office Visit [facility] [address] [place] [address] Probation And Parole Officer: Newton Rangel DO 119 [facility] [place] [address] 02/09/2025 10:15 AM EDT Office Visit [facility] Dermatology Clinic 4th Floor [address] [facility], [place] [address] Probation And Parole Officer: Hipolito Lei MD [address] [place] [address] Scheduled Referrals Name Type Priority Associated Diagnoses Order Schedule Ambulatory referral to General Surgery Outpatient Referral Routine Subcutaneous mass of right upper extremity Subcutaneous mass of abdominal wall Expected: 06/26/2024, Expires: 12/24/2024 documented as of this encounter Visit Diagnoses Diagnosis Subcutaneous mass of right upper extremity- Primary Subcutaneous mass of abdominal wall documented in this encounter Care Teams Customer Order Clerk Relationship Specialty Start Date End Date Petra Wiley [address] [place] [address] PCP - General Family Medicine 03/19/24 documented as of this encounter
--- OUTSIDE RECORDS SUMMARY | 2024-09-14 16:30 | XMS_ITS | Encounter Summary ---
Author Organization [employer] Address 75 [facility] 7t [place] [address] Care Team Providers Care Spray Gun Repairer Name Role Phone Jennie Murray MD Primary Care Provider Petra Wiley Primary Care Provider [phone] Willard Waters Unavailable [phone] September Unavailable Juan Sandra MD Unavailable [phone] Brigid Guy NP Unavailable Vicetne Mooney MD Unavailable Beth Rai MD Unavailable Michell Espinoza Unavailable Encounter Details Date Type Department Care Team (Late st Contact Info) Description 05/25/2022 Abstract [facility] ADULT DENTAL [address] [place], [place] [phone] Dental, Provider, DDS Social History Tobacco Use [...] Description 10/06/2024 3:30 PM EDT Clinical Support [facility] DIABETES/NUTRITION 230 [facility] [place] [phone] Tamanna Mcintyre, RD 230 [place] [address] 10/27/2024 2:30 PM EDT Office Visit [facility] ADULT DENTAL [address] [place] [address] Mary LouDavid lancasterVenkat, DDS [address] [place] [address] 11/04/2024 11:15 AM EDT Office Visit [facility] MEDICINE [address] [place] [address] Petra Wiley, NURSE WOUND [address] [place] [address] 11/25/2024 9:15 AM EDT Office Visit [facility] [address] [place] [address] Petra Wiley, NURSE WOUND [address] [place] [address] 01/18/2025 3:00 PM EDT Office Visit [facility] ADULT DENTAL [address] [place] [address] Sanaz Nelson documented as of this encounter [...] on filedocumented in this encounter Care Teams Spray Gun Repairer Relationship Specialty Start Date End Date Jennie Murray MD 230 [place] [address] PCP - General Family Medicine 06/23/13 03/16/24 Petra Wiley FNP [address] [place] [address] PCP - General Family Medicine 03/17/24 Willard Waters [address] [place] [address] Rheumatology 05/17/24 Victoria Sumaya [address] 3rd [place] [address] Gastroenterology 05/17/24 Juan Sandra MD [address] [place] [address] Hematology and Oncology 05/17/24 Brigid Guy NP [address] [place] [address] Urology 05/17/24 Vicente Mooney MD [address] [place] [address] [address] [place] [address] Obstetrics and Gynecology 05/17/24 Beth Rai MD [address] [place] [address] [place] [address] Neurology 05/17/24 Michell Espinoza 11 [facility] 3rd [place] [address] Cardiology 05/17/24 Shelia Zheng Sexual Health PhysicianPhotonics Engineering Technician 09/26/23 documented as of this encounter
--- OUTSIDE RECORDS SUMMARY | 2024-09-14 16:30 | XMS_ITS | Encounter Summary ---
Author Organization [employer] Address [address] [place] [address] 7t [place] [address] Care Team Providers Care Substation Wireman Name Role Phone Jennie Murray MD Primary Care Provider [phone] Petra Wiley Primary Care Provider [phone] Willard Waters Unavailable [phone] September Unavailable Juan Sandra MD Unavailable [phone] Brigid Guy NP Unavailable Vicente Mooney [...] Description 08/21/2022 Telephone [facility] ADULT DENTAL [address] [place], [place] [phone] Venkat Barreto DDS [address] [place], [place] [phone] Appointment (Ambika Lowell Anaya 1985 Patient called [...] Description 10/06/2024 3:30 PM EDT Clinical Support [facility] DIABETES/NUTRITION [address] [place], [place] [phone] Tamanna Mcintyre [address] [place] [address] 10/27/2024 2:30 PM EDT Office Visit [facility] ADULT DENTAL [address] [place] [address] Venkat Barreto DDS [address] [place], [place] [phone] 11/04/2024 11:15 AM EDT Office Visit [facility] MEDICINE [address] [place] [address] Petra Wiley FNP 505 [place] [address] 11/25/2024 9:15 AM EDT Office Visit [facility] MEDICINE [address] [place] [address] Petra Wiley FNP [address] [place] [address] 01/18/2025 3:00 PM EDT Office Visit [facility] CHC ADULT DENTAL 505 [place] [address] Sanaz Nelson documented as of this encounter Visit Diagnoses Not on filedocumented in this encounter Additional Health Concerns Assessment Noted Time PHQ-9 Depression Total Score: 0 07/04/19 23 3:01 PM EST documented as of this encounter Care Teams Substation Wireman Relationship Specialty Start Date End Date Jennie Murray MD 230 [place] [address] PCP - General Family Medicine 06/23/13 03/16/24 Petra Wiley FNP [address] [place] [address] PCP - General Family Medicine 03/17/24 Willard Waters [address] [place] [address] Rheumatology 05/17/24 Sumaya Kessler [address] [place] [address] Drive 3rd [place] [address] Gastroenterology 05/17/24 Juan Sandra MD [address] [place] [address] Hematology and Oncology 05/17/24 Brigid Guy NP [address] [place] [address] Urology 05/17/24 Vicente Mooney MD [address] [place] [address] [address] [place] [address] Obstetrics and Gynecology 05/17/24 Beth Rai MD [address] [place] [address] Dr Rangel [address] [place] [address] Neurology 05/17/24 Michell Espinoza [address] 3rd [place] [address] Cardiology 05/17/24 Shelia Zheng Workers Compensation AdjusterBlending Kettle Tender 09/26/23 documented as of this encounter
--- OUTSIDE RECORDS SUMMARY | 2024-09-14 16:30 | XMS_ITS | Encounter Summary ---
Author Organization [employer] Address [address] [place] [address] 7t [place] [address] Care Team Providers Care Shooter Helper Name Role Phone Jennie Murray MD Primary Care Provider Petra Wiley Primary Care Provider Willard Waters Unavailable [phone] September Unavailable Juan Sandra MD Unavailable [phone] Brigid Guy NP Unavailable Vicente Mooney MD Unavailable Beth Rai MD Unavailable Michell Espinoza Unavailable Encounter Details Date Type Department Care Team (Late st Contact Info) Description 07/26/2022 Orders Only [facility] MEDICINE [address] [place], [place] [phone] Nelson Medrano MD [address] [place] [phone] Chronic idiopathic constipation (Primary Dx) Social History [...] 10/06/2024 3:30 PM EDT Clinical Support [facility] DIABETES/NUTRITION [address] [place] [address] Tamanna Mcintyre, ANGELINA 230 [place] [address] 10/27/2024 2:30 PM EDT Office Visit [facility] ADULT DENTAL [address] [place] [address] Venkat Barreto DDS [address] [place] [address] 11/04/2024 11:15 AM EDT Office Visit [facility] MEDICINE [address] [place] [address] Petra Wiley FNP [address] [place] [address] 11/25/2024 9:15 AM EDT Office Visit [facility] MEDICINE [address] [place] [address] Petra Wiley FNP [address] [place] [address] 01/18/2025 3:00 PM EDT Office Visit [facility] CHC ADULT DENTAL [address] [place] [address] Sanaz Nelson documented as of this encounter Visit Diagnoses Diagnosis Chronic idiopathic constipation- Primary Unspecified constipation documented in this encounter Additional Health Concerns Assessment Noted Time PHQ-9 Depression Total Score: 0 07/04/19 23 3:01 PM EST documented as of this encounter Care Teams Shooter Helper Relationship Specialty Start Date End Date Jennie Murray MD 230 [place] [address] PCP - General Family Medicine 06/23/13 03/16/24 Petra Wiley FNP [address] [place] [address] PCP - General Family Medicine 03/17/24 Willard Waters [address] Rheumatology 05/17/24 Victoria Sumaya [address] 3rd [place] [address] Gastroenterology 05/17/24 Juan Sandra MD [address] [place] [address] Hematology and Oncology 05/17/24 Brigid Guy NP [address] [place] [address] Urology 05/17/24 Vicente Mooney MD [address] [place] [address] [address] [place] [address] Obstetrics and Gynecology 05/17/24 Beth Rai MD [address] [place] [address] 140 [place] [address] Neurology 05/17/24 Michell Espinoza [address] 3rd [place] [address] Cardiology 05/17/24 Shelia Zheng Building EconomistPresident Mortgage Company 09/26/23 documented as of this encounter
--- OUTSIDE RECORDS SUMMARY | 2024-09-14 16:30 | XMS_ITS | Encounter Summary ---
Author Organization [employer] Address 75 [facility] 7t [place] [address] Care Team Providers Care Wood Patternmaker Name Role Phone Petra Wiley NIC Primary Care Provider [phone] Willard Waters Unavailable [phone] Victoria September Unavailable Juan Sandra MD Unavailable [phone] Brigid Guy NP Unavailable Vicente Mooney MD Unavailable Beth Rai MD Unavailable Michell Espinoza Unavailable Encounter Details Date Type Department Care Team (Late st Contact Info) Description 09/11/2024 2:00 PM EDT Office Visit [facility] ADULT DENTAL 230 [place], [place] [phone] Venkat Barreto DDS [address] [place], [place] [phone] Social History Tobacco Use Types Packs/Day Years [...] Pressure 128/62 09/11/2024 2:18 PM EDT Pulse - - Temperature - - Respiratory Rate - - Oxygen Saturation - - Inhaled Oxygen Concentration - - Weight - - Height - - Body Mass Index - - documented in this encounter Plan of Treatment Upcoming Encounters Date Type Department Care Team (Late st Contact Info) Description 10/06/2024 3:30 PM EDT Clinical Support [facility] DIABETES/NUTRITION 230 [place], [place] [phone] Tamanna Mcintyre RD [address] [place] [address] 10/27/2024 2:30 PM EDT Office Visit [facility] ADULT DENTAL [address] [place] [address] Venkat Barreto DDS [address] [place] [address] 11/04/2024 11:15 AM EDT Office Visit [facility] MEDICINE [address] [place] [address] Petra Wiley FNP 505 [place] [address] 11/25/2024 9:15 AM EDT Office Visit [facility] MEDICINE [address] [place] [address] Petra Wiley FNP [address] [place] [address] 01/18/2025 3:00 PM EDT Office Visit [facility] CHC ADULT DENTAL [address] [place] [address] Sanaz Nelson documented as of this encounter Visit Diagnoses Not on filedocumented in this encounter Additional Health Concerns Assessment Noted Time PHQ-9 Depression Total Score: 13 024 3:11 PM EDT documented as of this encounter Care Teams Wood Patternmaker Relationship Specialty Start Date End Date Petra Wiley FNP [address] [place] [address] PCP - General Family Medicine 03/17/24 Willard Waters [address] Rheumatology 05/17/24September [address] 3rd [place] [address] Gastroenterology 05/17/24 Juan Sandra MD 575 [place] [address] Hematology and Oncology 05/17/24 Brigid Guy NP [address] [place] [address] Urology 05/17/24 Vicente Mooney MD [address] [place] [address] [address] [place] [address] Obstetrics and Gynecology 05/17/24 Beth Rai MD [address] [place] [address] [place] [address] Neurology 05/17/24 Michell Espinoza [address] [place] [address] 3rd [place] [address] Cardiology 05/17/24 Sheila Zheng TilerAutomotive Diagnostic Technician 09/26/23 documented as of this encounter
--- OUTSIDE RECORDS SUMMARY | 2024-09-14 16:30 | XMS_ITS | Clinical Summary ---
Author Organization [facility] Address [address] [place] [address] Care Team Providers Care [employer] Name Role Phone Petra Wiley Primary Care Provider [phone] Allergies Active Allergy Reactions Criticality Noted Date [...] Type Department Care Team Description 08/06/2024 Telephone [facility] 4th Floor [address] [facility], Fourth [place] [address] Office Clerk Assistant: Khadra Westbrook Telephone Intake, Staff PAC Appt Request - New 08/01/2024 Results Follow-Up [facility] [address] [place] [address] Office Clerk Assistant: Newton Rangel DO 07/22/2024 12:00 PM EST Office Visit [facility] [address] [place] [address] Office Clerk Assistant: Newton Rangel DO Erythromelalgia (Primary Dx); Polyarthralgia 06/26/2024 Transcribe Orders [facility] Physician Referral Services [address] [place] [address] Petra Wiley Subcutaneous mass of right upper extremity (Primary Dx); Subcutaneous mass of abdominal wall from Last 3 Months Social History Tobacco [...] Description 11/02/2024 2:20 PM EDT Office Visit [facility] [address] [place] [address] Office Clerk Assistant: Newton Rangel DO [address] [facility] [place] [address] 02/09/2025 10:15 AM EDT Office Visit [facility] 4th Floor [address] [facility], Fourth [place] [address] Office Clerk Assistant: Hipolito Lei MD [address] [place] [address] Health Maintenance Due Date Last Done Comments [...] Screening 06/17/2024 Depression Screening and Follow-Up 06/17/2024 [employer] ual Screening 06/17/2024 RSV Vaccine (60+ years old a nd patients) (1 - 1-dose 75+ series) 2062 HIV Screening Completed 03/18/2024, 03/18/2024 Pneumococcal Vaccine: Pediat rebeca (0-5 Years) and At-Risk Patients (6-50 Years) Completed 05/13/2024 Procedures * Due to [employer] law, this organization might not be sharing negative HIV tests. Procedure Name Priority Date/Time Associated Diagnosis Comments SEDIMENTATION RATE, AUTOMATED Routine 07/22/2024 1:56 PM EST Polyarthralgia PROTEIN ELECTROPHORESIS W/REFLEX TO IMMUNOFIXATION, SERUM Routine 07/22/2024 1:56 PM EST Polyarthralgia from Last 3 Months Results * Due to [employer] law, this organization might not be sharing negative HIV tests. * Protein Electrophoresis w/Reflex to Immunofixation, Serum (07/22/2024 1:56 PM EST) Protein, Total 8.1 6.1 - 8.1 g/dL 07/28/2024 7:22 AM EST [facility] Albumin 4.8 3.8 - 4.8 g/dL 07/28/2024 7:22 AM EST [facility] Alpha 1 Globulin 0.3 0.2 - 0.3 g/dL 07/28/2024 7:22 AM EST [facility] Alpha 2 Globulin 0.7 0.5 - 0.9 g/dL 07/28/2024 7:22 AM EST [facility] Beta 1 Globulin 0.6 0.4 - 0.6 g/dL 07/28/2024 7:22 AM EST [facility] Beta 2 Globulin 0.5 0.2 - 0.5 g/dL 07/28/2024 7:22 AM EST [facility] Gamma Globulin 1.2 0.8 - 1.7 g/dL 07/28/2024 7:22 AM EST [facility] Interpretation See Comments 07/28/2024 7:22 AM EST [facility] Comment: Normal Serum Protein Electrophoresis Pattern. No abnormal protein bands (M-protein) detected. Blood Structure of peripheral vein / Unknown Venipuncture / Unknown 07/22/2024 1:56 PM EST 07/22/2024 2:37 PM EST [facility] 07/28/2024 7:22 AM EST [facility] Received Date: us [employer] DO LAB BLOOD ORDERABLES Final Res ult [facility] [address] [facility] 3rd Floor, [place] [address], [place] [phone] [facility] [address] [facility] 3rd Floor, [place] [address], [place] [phone] * (ABNORMAL) Sedimentation Rate (07/22/2024 1:56 PM EST) Sed Rate 29(H) <20 mm/Hr mm/Hr 07/22/2024 2:52 PM EST [facility] Blood Structure of peripheral vein / Unknown Venipuncture / Unknown 07/22/2024 1:56 PM EST 07/22/2024 2:37 PM EST [employer] DO LAB BLOOD ORDERABLES Final Res ult Performing Organization Address City/[facility]/ZIP Co de Phone Number [facility] [address] [place] [address], from Last 3 Months Insurance [facility] Care Teams [employer] Relationship Specialty Start Date End Date Petra Wiley [address] [place] [address] [phone] PCP - General Family Medicine 03/19/24
--- OUTSIDE RECORDS SUMMARY | 2024-09-14 16:30 | XMS_ITS | Referral Summary ---
Author Organization [facility] Address [address] [place] [address] Care Team Providers Care Propellant Charge Loader Name Role Phone Petra Wiley Primary Care Provider Encounters Date Type Department Care Team Description 08/06/2024 Telephone [facility] Dermatology Clinic 4th Floor [address] [facility], Fourth [place] [id number] Steel Pourer: Khadra Westbrook Telephone Intake, Staff PAC Appt Request - New 08/01/2024 Results Follow-Up [facility] [address] [place] [address] Steel Pourer: Newton Rangel DO 07/22/2024 12:00 PM EST Office Visit [facility] [address] [place] [address] Steel Pourer: Newton Rangel DO Erythromelalgia (Primary Dx); Polyarthralgia 06/26/2024 Transcribe Orders [facility] Physician Referral Services [address] [place] [address] Petra Wiley Subcutaneous mass of right upper extremity (Primary Dx); Subcutaneous mass of abdominal wall from Last 3 Months Allergies Active Allergy [...] Description 11/02/2024 2:20 PM EDT Office Visit [facility] [address] [place], [place] [phone] Steel Pourer: Newton Rangel DO [address] [facility] [place] [address] 02/09/2025 10:15 AM EDT Office Visit [facility] Dermatology Clinic 4th Floor [address] [facility], Fourth [place] [address] Steel Pourer: Hipolito Lei MD [address] [place] [address] Procedures * Due to [facility] law, this organization might not be sharing negative HIV tests. Procedure Name Priority Date/Time Associated Diagnosis Comments SEDIMENTATION RATE, AUTOMATED Routine 07/22/2024 1:56 PM EST Polyarthralgia PROTEIN ELECTROPHORESIS W/REFLEX TO IMMUNOFIXATION, SERUM Routine 07/22/2024 1:56 PM EST Polyarthralgia from Last 3 Months Results * Due to [employer] law, this organization might not be sharing negative HIV tests. * Protein Electrophoresis w/Reflex to Immunofixation, Serum (07/22/2024 1:56 PM EST) Protein, Total 8.1 6.1 - 8.1 g/dL 07/28/2024 7:22 AM EST [facility] Albumin 4.8 3.8 - 4.8 g/dL 07/28/2024 7:22 AM EST [facility] [employer] Alpha 1 Globulin 0.3 0.2 - 0.3 g/dL 07/28/2024 7:22 AM EST [facility] [employer] Alpha 2 Globulin 0.7 0.5 - 0.9 g/dL 07/28/2024 7:22 AM EST [employer] [facility] Beta 1 Globulin 0.6 0.4 - 0.6 g/dL 07/28/2024 7:22 AM EST [employer] Beta 2 Globulin 0.5 0.2 - 0.5 g/dL 07/28/2024 7:22 AM EST [facility] Gamma Globulin 1.2 0.8 - 1.7 g/dL 07/28/2024 7:22 AM EST [facility] [facility] Interpretation See Comments 07/28/2024 7:22 AM EST [employer] [facility] Comment: Normal Serum Protein Electrophoresis Pattern. No abnormal protein bands (M-protein) detected. Blood Structure of peripheral vein / Unknown Venipuncture / Unknown 07/22/2024 1:56 PM EST 07/22/2024 2:37 PM EST [facility] - 07/28/2024 7:22 AM EST [facility] Received Date: us [address] DO LAB BLOOD ORDERABLES Final Res ult [facility] [address] [facility] 3rd Floor, [place] [address], [place] [phone] [employer] [employer] [facility] [address] [facility] 3rd Floor, [place] [address], [place] [phone] * (ABNORMAL) Sedimentation Rate (07/22/2024 1:56 PM EST) Sed Rate 29(H) <20 mm/Hr mm/Hr 07/22/2024 2:52 PM EST [facility] Blood Structure of peripheral vein / Unknown Venipuncture / Unknown 07/22/2024 1:56 PM EST 07/22/2024 2:37 PM EST [address] DO LAB BLOOD ORDERABLES Final Res ult [facility] [address] [place] [address], [place] from Last 3 Months Insurance [facility] Care Teams Propellant Charge Loader Relationship Specialty Start Date End Date Petra Wiley [address] [place] [address] PCP - General Family Medicine 03/19/24
== END 2024-09-14 15:00 | disposition home or self-care (01) ==
LOC: HO.HWS 14:36
PROVIDERS: PCP Registered Nurse; Visit Provider Obstetrics & Gynecology
DX: N83.9 Noninflammatory disorder of ovary, fallopian tube and broad ligament, unspecified (principal); D25.9 Leiomyoma of uterus, unspecified
CPT/HCPCS: 99213

== ENCOUNTER → 2024-09-14 14:36 | Outpatient (BNVA) | payer MEDICAID, SELFPAY | PROVIDERS: PCP Registered Nurse; Visit Provider Obstetrics & Gynecology | DX: N83.9 Noninflammatory disorder of ovary, fallopian tube and broad ligament, unspecified (principal); D25.9 Leiomyoma of uterus, unspecified | CPT/HCPCS: 99212 ==

== ENCOUNTER 2024-10-06 12:43 | Outpatient (REF) | payer MEDICAID, SELFPAY ==
[2024-10-06 13:08] LABS: Hematocrit 31.2 % (37.0-47.0); Hemoglobin 9.7 g/dl (12.0-16.0); Mean Corpuscular HGB Conc 31.1 g/dl (31.0-35.0); Mean Corpuscular Hemoglobin 24.2 pg (27.0-33.0); Mean Corpuscular Volume 77.8 fL (80.0-98.0); Mean Platelet Volume 10.9 fL (9.4-12.3); Platelet Count 327 X10*3/uL (160-400); Red Blood Count 4.01 X10*6/uL (4.20-5.50); Red Cell Distribution Width 15.6 % (11.0-16.0); White Blood Count 7.4 X10*3/uL (4.8-10.8)
[2024-10-06 13:51] LABS: HCG Quantitative < 2 mIU/mL; TSH reflex Free T4 1.37 uIU/mL (0.32-4.0)
--- OUTSIDE RECORDS SUMMARY | 2024-10-06 15:06 | XMS_ITS | Encounter Summary ---
Author Organization [employer] Address [address] [facility] 7t [place] [address] Care Team Providers Care Disability Services Coordinator Name Role Phone Jennie Murray MD Primary Care Provider Petra Wiley Primary Care Provider Willard Waters Unavailable [phone] Kessler, September Unavailable Juan Sandra MD Unavailable [phone] Brigid Guy NP Unavailable Vicente Mooney MD Unavailable Beth Rai MD Unavailable [phone] Michell Espinoza Unavailable Encounter Details Date Type Department Care Team (Latest Contact Info) Description 09/12/2020 Abstract [facility] CONVERSIONS Dental, Provider, DDS Social History [...] Upcoming Encounters Date Type Department Care Team ( st Contact Info) Description 10/06/2024 3:30 PM EDT Clinical Support [facility] DIABETES/NUTRITION [address] [place] [address] [place] [address] 10/27/2024 2:30 PM EDT Office Visit [facility] ADULT DENTAL [address] [place] [address] Venkat Barreto DDS [address] [place] [address] 11/04/2024 11:15 AM EDT Office Visit [address] [address] Petra Wiley FNP [address] [place] [address] 11/25/2024 9:15 AM EDT Office Visit [address] [address] Petra Wiley FNP [address] [place] [address] 01/18/2025 3:00 PM EDT Office Visit [facility] [address] [place] [address] Sanaz Nelson documented as of this encounter Visit Diagnoses Not on filedocumented in this encounter Care Teams Disability Services Coordinator Relationship Specialty Start Date End Date Jennie Murray MD [address] [place] [address] PCP - General Family Medicine 06/23/13 03/16/24 Petra Wiley FNP [address] [place] [address] PCP - General Family Medicine 03/17/24 Willard Waters [address] [place] [address] Rheumatology 05/17/24 Victoria Sumaya [address] 3rd [place] [address] Gastroenterology 05/17/24 Juan Sandra MD [address] [place] [address] Hematology and Oncology 05/17/24 Brigid Guy NP [address] [place] [address] Urology 05/17/24 Vicente Mooney MD [address] [place] [address] Obstetrics and Gynecology 05/17/24 Beth Rai MD [address] [place] [address] Neurology 05/17/24 Michell Espinoza [address] [facility] 3rd [place] [address] Cardiology 05/17/24 Shelia Zheng Associate Professor Of EconomicsCrackling Press Operator 09/26/23 documented as of this encounter
--- OUTSIDE RECORDS SUMMARY | 2024-10-06 15:06 | XMS_ITS | Encounter Summary ---
Author Organization [employer] Address 75 [facility] 7t [place] [address] Care Team Providers Care Iron And Steel Work Supervisor Name Role Phone Jennie Murray MD Primary Care Provider [phone] Petra Wiley Primary Care Provider Willard Waters Unavailable [phone] Kessler, September Unavailable Juan Sandra MD Unavailable [phone] Brigid Guy NP Unavailable Vicente Mooney MD Unavailable Beth Rai MD Unavailable Michell Espinoza Unavailable Reason for Visit * Reason Onset Date Comments Appointment Request 12/25/2023 Encounter Details Date Type Department Care Team (Late st Contact Info) Description 12/25/2023 Telephone [facility] MEDICINE [address] [place], [place] [phone] Jennie Murray MD [address] [place], [place] [phone] Appointment Request Social History Tobacco Use Types [...] 12/25/2023 1:07 PM EDT Tc from Patrice, healthcare prof with [facility], calling to schedule appt for pt. Pt is awaiting transfer pt appt with Dr. Wiley in which newswriter attempted to schedule but found no availability. Please contact Patrice at [phone]. documented in this encounter Plan of Treatment Upcoming Encounters Date Type Department Care Team (Late st Contact Info) Description 10/06/2024 3:30 PM EDT Clinical Support [facility] DIABETES/NUTRITION [address] [place] [address] [place] [address] 10/27/2024 2:30 PM EDT Office Visit [facility] ADULT DENTAL [address] [place] [address] Venkat Barreto DDS [address] [place] [address] 11/04/2024 11:15 AM EDT Office Visit [facility] MEDICINE [address] [place] [address] Petra Wiley FNP [address] [place] [address] 11/25/2024 9:15 AM EDT Office Visit [facility] MEDICINE [address] [place] [address] Petra Wiley FNP [address] [place] [address] 01/18/2025 3:00 PM EDT Office Visit [facility] ADULT DENTAL 505 [place] [address] Sanaz Nelson documented as of this encounter Visit Diagnoses Not on filedocumented in this encounter Additional Health Concerns Assessment Noted Time PHQ-9 Depression Total Score: 0 07/04/19 23 3:01 PM EST documented as of this encounter Care Teams Iron And Steel Work Supervisor Relationship Specialty Start Date End Date Jennie Murray MD 230 [place] [address] PCP - General Family Medicine 06/23/13 03/16/24 Petra Wiley FNP [address] [place] [address] PCP - General Family Medicine 03/17/24 Willard Waters [address] [place] [address] Rheumatology 05/17/[address] 3rd [place] [address] Gastroenterology 05/17/24 Juan Sandra MD [address] [place] [address] [place] [address] Hematology and Oncology 05/17/24 Brigid Guy NP [address] [place] [address] Urology 05/17/24 Vicente Mooney MD [address] [place] [address] Obstetrics and Gynecology 05/17/24 Beth Rai MD [address] [place] [address] [address] Neurology 05/17/24 Michell Espinoza [address] 3rd [place] [address] Cardiology 05/17/24 Shelia Zheng Electric Locomotive Crane OperatorChocolate Finisher 09/26/23 documented as of this encounter
--- OUTSIDE RECORDS SUMMARY | 2024-10-06 15:06 | XMS_ITS | Encounter Summary ---
Author Organization [employer] Address 75 [facility] 7t [place] [address] Care Team Providers Care Relationship Manager Name Role Phone Jennie Murray MD Primary Care Provider [phone] Petra Wiley Primary Care Provider [phone] Willard Waters Unavailable [phone] Victoria September Unavailable Juan Sandra MD Unavailable [phone] Brigid Guy NP Unavailable Vicente Mooney [...] (Late st Contact Info) Description 08/21/2022 Telephone [facility] ADULT DENTAL [address] [place] [address] Venkat Barreto DDS [address] [place] [address] Appointment (Ambika Anaya 1985 Patient called in [...] Description 10/06/2024 3:30 PM EDT Clinical Support [facility] DIABETES/NUTRITION [address] [place] [address] [place] [address] 10/27/2024 2:30 PM EDT Office Visit [facility] ADULT DENTAL [address] [place] [address] Venkat Barreto DDS [address] [place] [address] 11/04/2024 11:15 AM EDT Office Visit [facility] MEDICINE [address] [place] [address] Petra Wiley FNP 505 [place] [address] 11/25/2024 9:15 AM EDT Office Visit [facility] MEDICINE [address] [place] [address] Petra Wiley FNP 505 [place] [address] 01/18/2025 3:00 PM EDT Office Visit [facility] CHC ADULT DENTAL 505 [place] [address] Sanaz Nelson documented as of this encounter Visit Diagnoses Not on filedocumented in this encounter Additional Health Concerns Assessment Noted Time PHQ-9 Depression Total Score: 0 07/04/19 23 3:01 PM EST documented as of this encounter Care Teams Relationship Manager Relationship Specialty Start Date End Date Jennie Murray MD 230 [place] [address] PCP - General Family Medicine 06/23/13 03/16/24 Petra Wiley FNP [address] [place] [address] PCP - General Family Medicine 03/17/24 Willard Waters [address] [place] [address] Rheumatology 05/17/24 Victoria Sumaya [address] [place] [address] Drive 3rd [place] [address] Gastroenterology 05/17/24 Juan Sandra MD [address] [place] [address] Hematology and Oncology 05/17/24 Brigid Guy NP [address] [place] [address] Urology 05/17/24 Vicente Mooney MD [address] [place] [address] [address] [place] [address] Obstetrics and Gynecology 05/17/24 Beth Rai MD [address] [place] [address] Dr R[address] [place] [address] Neurology 05/17/24 Michell Espinoza [address] 3rd [place] [address] Cardiology 05/17/24 Shelia Zheng Tenter Frame Back TenderLead Database Administrator 09/26/23 documented as of this encounter
--- OUTSIDE RECORDS SUMMARY | 2024-10-06 15:06 | XMS_ITS | Encounter Summary ---
Author Organization [employer] Address 75 [facility] 7t [place] [address] Care Team Providers Care Aquatic Biologist Name Role Phone Jennie Murray MD Primary Care Provider Petra Wiley Primary Care Provider [phone] Willard Waters Unavailable [phone] KesslerSeptember Unavailable Juan Sandra MD Unavailable [phone] Brigid Guy NP Unavailable Vicente Mooney MD Unavailable Beth Rai MD Unavailable [phone] Michell Espinoza Unavailable Reason for Visit * Reason Onset Date Comments medication 09/19/2022 Encounter Details Date Type Department Care Team (Late st Contact Info) Description 09/19/2022 Telephone [facility] ADULT DENTAL [address] [place], [place] [phone] Venkat Barreto DDS [address] [facility] [place], [place] [phone] medication Social History Tobacco Use Types Packs/Day [...] EDT Script was sent for Augementin to [facility] in [place]. Patient went in to chart picker script and they stated there was nothing there. Contacted [facility] and they stated that nationwide there was a shut down on their system for about 3 hours so it doesn't look like they received it. Can it be resent for patient? documented in this encounter Plan of Treatment Upcoming Encounters Date Type Department Care Team (Late st Contact Info) Description 10/06/2024 3:30 PM EDT Clinical Support [facility] DIABETES/NUTRITION [address] [place] [address] Tamanna Mcintyre, RD 230 [place] [address] 10/27/2024 2:30 PM EDT Office Visit [facility] ADULT DENTAL [address] [place] [address] Venkat Barreto DDS [address] [place] [address] 11/04/2024 11:15 AM EDT Office Visit [facility] MEDICINE [address] [place] [address] Petra Wiley FNP 505 [place] [address] 11/25/2024 9:15 AM EDT Office Visit [facility] MEDICINE [address] [place] [address] Petra Wiley FNP 505 [place] [address] 01/18/2025 3:00 PM EDT Office Visit [facility] ADULT DENTAL 505 [place] [address] Sanaz Nelson documented as of this encounter Visit Diagnoses Not on filedocumented in this encounter Additional Health Concerns Assessment Noted Time PHQ-9 Depression Total Score: 0 07/04/19 23 3:01 PM EST documented as of this encounter Care Teams Aquatic Biologist Relationship Specialty Start Date End Date Jennie Murray MD 230 [place] [address] PCP - General Family Medicine 06/23/13 03/16/24 Petra Wiley FNP [address] [place] [address] PCP - General Family Medicine 03/17/24 Willard Waters [address] [place] [address] Rheumatology 05/17/24 Sumaya Kessler [address] 3rd [place] [address] Gastroenterology 05/17/24 Juan Sandra MD 575 [place] [address] Hematology and Oncology 05/17/24 Brigid Guy NP [address] [place] [address] Urology 05/17/24 Vicente Mooney MD [address] [place] [address] Obstetrics and Gynecology 05/17/24 Beth Rai MD [address] [place] [address] [place] [address] Neurology 05/17/24 Michell Espinoza [address] [place] [address] 3rd [place] [address] Cardiology 05/17/24 Shelia Zheng [employer] School ProfessionalMac Artist 09/26/23 documented as of this encounter
--- OUTSIDE RECORDS SUMMARY | 2024-10-06 15:06 | XMS_ITS | Encounter Summary ---
Author Organization [employer] Address 75 [facility] 7t [place] [address] Care Team Providers Care District Sales Representative Name Role Phone Petra Wiley AMMUNITION ASSEMBLY II LABORER Primary Care Provider Willard Waters Unavailable [phone] September Unavailable Juan Sandra MD Unavailable [phone] Brigid Guy NP Unavailable Vicente Mooney MD Unavailable Beth Rai MD Unavailable [phone] Michell Espinoza Unavailable Encounter Details Date Type Department Care Team (Late st Contact Info) Description 10/06/2024 Orders Only GENERIC EXTERNAL DATA DEPARTMENT Provider, [...] as of this encounter Miscellaneous Notes * Result Encounter Note - Sylvia Lemons MD - 10/06/2024 1:09 PM EDT Please notify pt that her Hg is once again below 10,, she should resume iron supplementation. Ty! Cristo covering for Isaiasen documented in this encounter Plan of Treatment Upcoming Encounters Date Type Department Care Team (Late st Contact Info) Description 10/06/2024 3:30 PM EDT Clinical Support [facility] DIABETES/NUTRITION 230 [place] [address] Tamanna Mcintyre, RD [address] [place] [address] 10/27/2024 2:30 PM EDT Office Visit [facility] ADULT DENTAL [address] [place] [address] Venkat Barreto DDS [address] [place] [address] 11/04/2024 11:15 AM EDT Office Visit [facility] MEDICINE [address] [place] [address] Petra Wiley FNP [address] [place] [address] 11/25/2024 9:15 AM EDT Office Visit [facility] MEDICINE 230 [facility] [place] [address] Petra Wiley FNP [address] [place], [place] [phone] 01/18/2025 3:00 PM EDT Office Visit [facility] CHC ADULT DENTAL [address] [place], [place] [phone] Sanaz Nelson documented as of this encounter Procedures Procedure Name Priority Date/Time Associated Diagnosis Comments TSH W/REFLEX TO FT4 Routine 10/06/2024 1 :05 PM EDT CBC Routine 10/06/2024 1:05 PM EDT HCG, TOTAL, QN Routine 10/06/2024 1:05 PM EDT documented in this encounter Results * hCG, Total, Quantitative (10/06/2024 1:05 PM EDT) HCG Quantitative <2 mIU/mL [facility] Comment:Weeks post LMP Appro ximate hCG(Last Menstrual Period) Range (mIU/ml)3 - 4 weeks 9 - 1304 - 5 weeks 75 - 2,6005 - 6 weeks 850 - 20,8006 - 7 weeks 4000 - 100,2007 - 12 weeks 11,500 - 289,92232 - 16 weeks 18,300 - 137,75181 - 29 weeks (2nd trimester) 1,400 - 53,13589 - 41 weeks (3rd trimester) 940 - 60,000The [place] B- hCG assay is used for the early detection ofpregnancy; it cannot be used to diagnose any conditionunrelated to . If a B-hCG level is not supportedby the clinical evidence, results should be confirmed by analternative method (qualitative urine hCG, for example). 10/06/2024 1:05 PM EDT 10/06/2024 1:05 PM EDT us Generic External Data Provider LAB BLOOD ORDERAB LES Final Result Performing Organization Address [facility]/ZIP Co de Phone Number [facility] [address] [place] [address] [phone] * TSH with Reflex to Free T4 (10/06/2024 1:05 PM EDT) TSH reflex Free T4 1.37 0.32 - 4.0 uIU/mL [facility] 10/06/2024 1:05 PM EDT 10/06/2024 1:05 PM EDT us Generic External Data Provider LAB BLOOD ORDERAB LES Final Result Performing Organization Address [facility] Co de Phone Number [facility] [address] [place] [address] [phone] * (ABNORMAL) CBC (10/06/2024 1:05 PM EDT) White Blood Count 7.4 4.8 - 10.8 X10*3/uL [facility] Red Blood Count 4.01(L) 4.20 - 5.50 X10*6/uL [facility] Hemoglobin 9.7(L) 12.0 - 16.0 g/dl [facility] Hematocrit 31.2(L) 37.0 - 47.0 % [facility] Mean Corpuscular Volume 77.8(L) 80.0 - 98.0 fL [facility] Mean Corpuscular Hemoglobin 24.2(L) 27.0 - 33.0 pg [facility] Mean Corpuscular HGB Conc 31.1 31.0 - 35.0 g/dl [facility] Red Cell Distribution Width 15.6 11.0 - 16.0 % [facility] Platelet Count 327 160 - 400 X10*3/uL [facility] Mean Platelet Volume 10.9 9.4 - 12.3 fL [facility] NRBC Pct Auto 0.0 0.0 - 0.2 /100WBC [facility] NRBC Abs Auto 0.000 0.0 - 0.012 X10*3/uL [facility] 10/06/2024 1:05 PM EDT 10/06/2024 1:05 PM EDT us Generic External Data Provider LAB BLOOD ORDERAB LES Final Result [facility] [address] [place] [address] [phone] documented in this encounter Visit Diagnoses Not on filedocumented in this encounter Additional Health Concerns Assessment Noted Time PHQ-9 Depression Total Score: 13 03/16/ 024 3:11 PM EDT documented as of this encounter Care Teams District Sales Representative Relationship Specialty Start Date End Date Petra Wiley FNP [address] [place] [address] PCP - General Family Medicine 03/17/24 Willard Waters [address] [place] [address] Rheumatology 05/17/24September [address] 3rd [place] [address] Gastroenterology 05/17/24 Juan Sandra MD 575 [place] [address] Hematology and Oncology 05/17/24 Briigd Guy NP [address] [place] [address] Urology 05/17/24 Vicente Mooney MD 575 [facility] [address] [place] [address] Obstetrics and Gynecology 05/17/24 Beth Rai MD [address] [place] [address] [place] [address] Neurology 05/17/24 Michell Espinoza 11 [facility] 3rd [place] [address] Cardiology 05/17/24 Shelia Zheng Semiconductor Lab TechnicianOre Dressing Engineer 09/26/23 documented as of this encounter
--- OUTSIDE RECORDS SUMMARY | 2024-10-06 15:06 | XMS_ITS | Referral Summary ---
Author Organization [facility] Address [address] [place] [address] Care Team Providers Care Columnist Name Role Phone Petra Wiley Primary Care Provider [phone] Encounters Date Type Department Care Team Description 08/06/2024 Telephone [facility]ology [facility] [address] [place] [address], [place] [phone] Elementary Instructional Coach: Khadra Westbrook Telephone Intake, Staff PAC Appt Request - New 08/01/2024 Results Follow-Up [facility] Rheumatology Clinic [address] [place] [address] Elementary Instructional Coach: Newton Rangel DO 07/22/2024 12:00 PM EST Office Visit [facility] Rheumatology Clinic [address] [place] [address] Elementary Instructional Coach: Newton Rangel DO Erythromelalgia (Primary Dx); Polyarthralgia from Last 3 Months Allergies Active Allergy Reactions Criticality Noted Date Comments Citalopram Vomiting 09/12/2021 Duloxetine Vomiting 12/03/2014 Other reaction(s): GI Problems Iodinated Contrast Media Anaphylaxis High 07/04/2022 Morphine Dyspnea High 01/14/2012 Other reaction(s): Altered Heart Rate, Trouble Breathing, chest pain Tramadol Vomiting High 12/03/2014 Other reaction(s): Vomit Medications albuterol (PROAIR HFA,VENTOLIN HFA) 90 mcg inhaler Inhale 2 puffs by mouth. 10/01/202 4 Active azelastine (ASTELIN) 137 mcg (0.1 [...] Description 11/02/2024 2:20 PM EDT Office Visit [facility] Rheumatology Clinic [address] [place] [address] Elementary Instructional Coach: Newton Rangel DO [address] [facility] [place] [address] 02/09/2025 10:15 AM EDT Office Visit [facility]atology [facility] [address] [place] [address], [place] [address] Elementary Instructional Coach: Hipolito Lei MD [address] [place] [address] Procedures * Due to [place] state law, this organization might not be sharing negative HIV tests. Procedure Name Priority Date/Time Associated Diagnosis Comments SEDIMENTATION RATE, AUTOMATED Routine 07/22/2024 1:56 PM EST Polyarthralgia PROTEIN ELECTROPHORESIS W/REFLEX TO IMMUNOFIXATION, SERUM Routine 07/22/2024 1:56 PM EST Polyarthralgia from Last 3 Months Results * Due to [place] Project 2020 law, this organization might not be sharing negative HIV tests. * Protein Electrophoresis w/Reflex to Immunofixation, Serum (07/22/2024 1:56 PM EST) Protein, Total 8.1 6.1 - 8.1 g/dL 07/28/2024 7:22 AM EST [facility] Albumin 4.8 3.8 - 4.8 g/dL 07/28/2024 7:22 AM EST [facility] Alpha 1 Globulin 0.3 0.2 - 0.3 g/dL 07/28/2024 7:22 AM EST [facility] Alpha 2 Globulin 0.7 0.5 - 0.9 g/dL 07/28/2024 7:22 AM EST [facility] Beta 1 Globulin 0.6 0.4 - 0.6 g/dL 07/28/2024 7:22 AM EST [facility] Beta 2 Globulin 0.5 0.2 - 0.5 g/dL 07/28/2024 7:22 AM EST [facility] Gamma Globulin 1.2 0.8 - 1.7 g/dL 07/28/2024 7:22 AM EST [facility] Interpretation See Comments 07/28/2024 7:22 AM EST [facility] Comment: Normal Serum Protein Electrophoresis Pattern. No abnormal protein bands (M-protein) detected. Blood Structure of peripheral vein / Unknown Venipuncture / Unknown 07/22/2024 1:56 PM EST 07/22/2024 2:37 PM EST Narrative [facility] - 07/28/2024 7:22 AM EST [facility] Received Date: Newton Yenifer DO LAB BLOOD ORDERABLES Final Res ult [address] Floor, [place] [address], [place] [phone] [facility] [address], [place] [address], [place] [phone] * (ABNORMAL) Sedimentation Rate (07/22/2024 1:56 PM EST) Sed Rate 29(H) <20 mm/Hr mm/Hr 07/22/2024 2:52 PM EST [facility] Blood Structure of peripheral vein / Unknown Venipuncture / Unknown 07/22/2024 1:56 PM EST 07/22/2024 2:37 PM EST [employer] DO LAB BLOOD ORDERABLES Final Res ult [facility] [address] [place] [address], [place] from [place] [address] [place] [id number] [facility] Care Teams Columnist Relationship Specialty Start Date End Date Petra Wiley [address] [place] [address] PCP - General Family Medicine 03/19/24
--- OUTSIDE RECORDS SUMMARY | 2024-10-06 15:06 | XMS_ITS | Clinical Summary ---
Author Organization [employer] Address [address] [facility] [address] [place] [address] Care Team Providers Care Personal Injury Attorney Name Role Phone Petra Wiley [employer] W[employer]AT[employer] PLANT OPERATOR Primary Care Provider Willard Waters Unavailable [phone] September Unavailable Juan Sandra MD Unavailable [phone] Brigid Guy NP Unavailable Vicente Mooney [...] 2 TABLETS ORALLY BEDTIME FOR 30 DAYS 023 Active dicyclomine (Bentyl) 10 MG capsule TOME ADRY C PSULA MINDA VECES AL D A Active Creon 65629-705564 units capsule delayed-release particles capsule TOME ADRY [...] day. 90 tablet 3 024 2024 Active Tirzepatide 2.5 MG/0.5ML solution auto-injectorInd ications:Class [...] a day for 1 week. 3.5 g 025 Active nabumetone (Relafen) 750 MG tablet Take 1 tablet (750 mg) by mouth if needed in the morning and at bedtime (pain). PLEASE SEE ATTACHED FOR DETAILED DIRECTIONS 60 tablet 2 025 Active cholecalciferol (Vitamin D3) 25 MCG (1000 UT) tabletIndication s:Vitamin D insufficiency TAKE 1 TABLET (25 MCG) BY MOUTH ONCE PER DAY. 90 tablet 3 025 Active cholecalciferol (Vitamin D-3) 25 MCG (1000 UT) tabletIndication s:Vitamin D insufficiency Take 1 tablet (25 mcg) by mouth Once per day. 90 tablet 1 024 2024 Discontinued nabumetone (Relafen) 750 MG tablet PLEASE SEE ATTACHED FOR DETAILED DIRECTIONS 024 2024 Discontinued(R eorder (will not trigger notification to Pharmacy)) Active Problems Problem Noted Date Diagnosed Date Erythromelalgia 08/18/2024 Polyarthralgia 08/18/2024 Nephrolithiasis 07/29/2024 Overview (07/29/2024): 04/15/24: US Renal Bl ordered by rBigid LUCERO. Identified bilateral nonobstructing kidney stones. 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 Assurance Associate referral offered. Recommended to decrease soda and [...] easily 03/17/2024 Overview (03/17/2024): Followed by [facility] Heme/Onc - Dr. Sandra Per consult Jan [...] HCT 36.5 (L) 03/18/2024 Following with [facility] Heme/Onc - Dr. Turner Assessment & Plan [...] - Has consulted with Surgery team in [facility] for consideration of excision. Per [...] - Has consulted with Surgery team in [facility] for consideration of excision. Per their consult Mar 2024, identified area has normal lobular fat, no discrete lipoma or nodules. Plan: conservative measures Abnormal uterine bleeding 12/27/2023 Overview (07/29/2024): Following with [facility]ODUC[employer] - Dr. Mooney EMB performed 04/14/24. Path: Benign late secretory endometrium; no atypia or carcinoma 05/18/2024: Pelvic ultrasound ordered by Dr. oMoney. Endometrial thickness 6 mm. Right ovary greater [...] Overview (05/17/2024): Lab Results Component Value Date [id number] 19.9 (L) 03/18/2024 [id number] 19 (A) 05/08/2023 - Cont Vit D [...] Overview (05/17/2024): Pap NIL/HPV Neg 11/12/2019 Dental: [facility] Dental Last PE: 06/03/23 Hep B Immune: Mar 2024 Gastroesophageal reflux disease without esophagi tis 06/03/2023 Overview (06/03/2023): ?? Followed by [facility] GI Varghese Kessler MORTGAGE CLOSER ?? Continues famotidine and Dexliant through GI Irritable bowel syndrome with constipation 06/03 Overview (03/17/2024): Followed up [facility] YASSINE Kessler MORTGAGE CLOSER Continues Bentyl TID Continues Bisacodyl 10mg nightly Dysphagia, oropharyngeal phase 06/03/2023 Overview (06/03/2023): ?? Followed by [facility] YASSINE Kessler APRN Gastroparesis 06/03/2023 Overview (03/17/2024): Followed by [facility] GI Continues with the following medication regimen for multiple GI symptoms and conditions: Creon, famotidine, psyllium, dicyclomine, simethicone, and Dexliant Previous medications: carafate NURIA positive 06/03/2023 Overview (07/29/2024): Previous followed by [facility] Rheum - Dr. Waters May 2024: Established with [facility] Rheum - Dr. Street NURIA positive 2019: 1:160, anti dna, nicholas, ESR, CRP all wnl Disorder of sesamoid bone of foot 06/03/2023 Overview (06/03/2023): -Left lateral sesamoid stress fx identified Jul 2022 at [facility] -Plan for immobilization in short walking boot and follow up 6 weeks Assessment & Plan (06/03/2023 10:28 PM EST): Plan to request latest records from [facility] and follow up with PCP to discuss eligibility handicap placard. Fibromyalgia 08/02/2022 Overview (07/29/2024): -Previously: Lyrica 75mg nightly through [facility] Physiatry/Rheum -Lyrica rx from PCP as of [...] Encounters Date Type Department Care Team Description 10/06/2024 Telephone [facility] PED[facility] [address] [place] [address] Sylvia Lemons MD Results 10/06/2024 Orders Only GENERIC EXTERNAL DATA DEPARTMENT Provider, Generic External Data 09/27/2024 Refill [facility] [address] [place] [address] Petra Wiley FNP Vitamin D insufficiency 09/15/2024 Refill [facility] [address] [place] [address] Jennie Murray MD 09/11/2024 2:00 PM EDT Office Visit [facility] ADULT DENTAL [address] [place] [address] Venkat Barreto DDS 09/08/2024 3:00 PM EDT Clinical Support [facility] DIABETES/NUTRITION [address] [place] [address] Class 2 obesity with body mass index (BMI) of 35.0 to 35.9 in adult, unspecified obesity type, unspecified whether serious comorbidity present; Class 1 obesity with body mass index (BMI) of 32.0 to 32.9 in adult, unspecified obesity type, unspecified whether serious comorbidity present 09/08/2024 Travel 09/07/2024 Orders Only [facility] MED [facility] PEDS [address] [place] [address] Petra Wiley FNP 09/07/2024 Travel 09/07/2024 Telephone [facility] MEDICINE [address] [place] [address] Petra Wiley FNP August08/28/2024 Population Health Risk Score [facility] () Department [address] [place] [phone] Provider, Population Health Generic 08/18/2024 1:30 PM EST Office Visit [facility] ADULT DENTAL [address] [place] [address] Venkat Barreto, DDS Erythromelalgia (CMS/HCC) (Primary Dx); Polyarthralgia 08/17/2024 Orders Only GENERIC EXTERNAL DATA DEPARTMENT Provider, Generic External Data 08/17/2024 Telephone [facility] MEDICINE [address] [place] [address] Petra Wiley FNP Referral 08/14/2024 1:30 PM EST Clinical Support [facility] DIABETES/NUTRITION [address] [place] [address] BMI 35.0-35.9,adult (Primary Dx) 08/14/2024 Travel 08/11/2024 Orders Only GENERIC EXTERNAL DATA DEPARTMENT Provider, Generic External Data 08/04/2024 2:30 PM EST Office Visit [facility] OPTOMETRY [address] [place] [address] Waqas, Cristine, OD Hordeolum internum of left lower eyelid (Primary Dx); Dry eyes, bilateral; White without pressure of peripheral retina of both eyes; Hyperopia of right eye 08/04/2024 Travel 07/31/2024 Telephone [facility] MED[facility] [address] [place] [phone] Petra Wiley FNP Patient request 07/29/2024 10:30 AM EST Office Visit [address] [address] Petra Wiley FNP Asthma, unspecified asthma severity, [...] Travel 07/28/2024 1:30 PM EST Clinical Support [facility] DI[facility]ETES/NUTRITION [address] [place] [phone] BMI 35.0-35.9,adult (Primary Dx) 07/28/2024 Telephone [facility] [address] [place] [address] Shireen Eagle MA Chart Prep 07/28/2024 Travel 07/24/2024 2:30 PM EST Office Visit [facility] ADULT DENTAL [address] [place] [address] Venkat Barreto DDS 07/24/2024 2:00 PM EST Office Visit [facility] [address] [place] [address] Sylvia Lemons MD Hordeolum externum of left lower eyelid (Primary Dx) 07/20/2024 3:00 PM EST Office Visit [facility] [address] [place] [address] Sanaz Nelson 07/20/2024 2:00 PM EST Clinical Support [facility] DIABETES/NUTRITION [address] [place] [address] Tamanna Mcintyre, RD BMI 35.0-35.9,adult (Primary Dx) 07/20/2024 Travel 07/12/2024 Refill [facility] PEDS [address] [place] [address] Petra Wiley, [employer] W[employer] T[employer] OPERATOR Seasonal allergies 07/10/2024 2:00 PM EST Nutrition [facility] DIABETES[facility]NUTRITION [address] [place] [address] Tamanna Mcintyre, RD Body mass index (BMI) of 35.0 to 35.9 in adult (Primary Dx) 07/10/2024 1:00 PM EST Office Visit [facility] ADULT DENTAL [address] [place] [address] Venkat Barreto, DDS 07/10/2024 Travel from Last 3 Months Immunizations Name Administration [...] 10/06/2024 3:30 PM EDT Clinical Support [facility] DIABETES/NUTRITION [address] [place] [address] [place] [address] 10/27/2024 2:30 PM EDT Office Visit [facility] ADULT DENTAL [address] [place] [address] Venkat Barreto, DDS [address] [place] [address] 11/04/2024 11:15 AM EDT Office Visit [facility] MEDICINE [address] [place] [address] Petra Wiley, W[employer] W[employer] T[employer]AT[employer] PLANT OPERATOR [address] [place] [address] 11/25/2024 9:15 AM EDT Office Visit [facility] MEDIC[facility] [address] [place] [address] Petra Wiley, [employer] W[employer] T[employer] PLANT OPERATOR [address] [place] [address] 01/18/2025 3:00 PM EDT Office Visit [facility] AD[facility] [address] [facility] [place] [address] Sanaz Nelson Health Maintenance Due Date Last Done Comments Family Planning (PISQ) 2002 HPV Vaccines (2 - 3-dose series) 03/27/2011 02/27/2011, 02/27/2011 HPV/Cotest 2017 Pap Smear 11/11/2022 11/12/2019, 11/12/2019 Dental Oral Exam 06/27/2024 12/25/2023, 01/2024, 08/02/2022 Cervical Cancer Screening 11/11/2024 Po stponed from [...] 02/16/2024 (Patient Refused) Dental X-Ray: Bitewings 07/21/2025 07/20/19, 12/25/2023, 06/24/2023, Additional history exists Dental X-Ray: [...] Procedure Name Priority Date/Time Associated Diagnosis Comments HCG, TOTAL, QN Routine 10/06/2024 1:05 PM EDT TSH W/REFLEX TO FT4 Routine 10/06/2024 1 :05 PM EDT CBC Routine 10/06/2024 1:05 PM EDT CASE PRESENTATION, DETAILED AND EXTENSIVE TREATMENT PLANNING Routine 09/11/2024 2:00 PM EDT 14 PREFABRICATED POST AND CORE IN ADDITION TO CROWN Routine 09/11/2024 2:00 PM EDT BI MAMMOGRAM DIAGNOSTIC TOMOSYNTHESIS BILATERAL Routine 09/01/2024 [...] PROCEDURE Routine 07/10/2024 1 :00 PM EST HEPATITIS C VIRAL RNA, QUANTITATIVE, [...] Recently Relevant to Health Maintenance Results * TSH with Reflex to Free T4 (10/06/2024 1:05 PM EDT) Pathologist [facility] TSH reflex Free T4 1.37 0.32 - 4.0 uIU/mL [facility] 10/06/2024 1:05 PM EDT 10/06/2024 1:05 PM EDT us Generic External Data Provider LAB BLOOD ORDERAB LES Final Result [facility] [address] [place] [phone] * (ABNORMAL) CBC (10/06/2024 1:05 PM EDT) Pathologist [facility] White Blood Count 7.4 4.8 - 10.8 X10*3/uL [facility] Red Blood Count 4.01(L) 4.20 - 5.50 X10*6/uL [facility] Hemoglobin 9.7(L) 12.0 - 16.0 g/dl [facility] Hematocrit 31.2(L) 37.0 - 47.0 % [facility] Mean Corpuscular Volume 77.8(L) 80.0 - 98.0 fL [facility] Mean Corpuscular Hemoglobin 24.2(L) 27.0 - 33.0 pg [facility] Mean Corpuscular HGB Conc 31.1 31.0 - 35.0 g/dl [facility] Red Cell Distribution Width 15.6 11.0 - 16.0 % [facility] Platelet Count 327 160 - 400 X10*3/uL [facility] Mean Platelet Volume 10.9 9.4 - 12.3 fL [facility] NRBC Pct Auto 0.0 0.0 - 0.2 /100WBC [facility] NRBC Abs Auto 0.000 0.0 - 0.012 X10*3/uL [facility] 10/06/2024 1:05 PM EDT 10/06/2024 1:05 PM EDT us Generic External Data Provider LAB BLOOD ORDERAB LES Final Result [facility] [address] [place] [phone] * hCG, Total, Quantitative (10/06/2024 1:05 PM EDT) HCG Quantitative <2 mIU/mL [facility] Comment:Weeks post LMP Appro ximate hCG(Last Menstrual Period) Range (mIU/ml)3 - 4 weeks 9 - 1304 - 5 weeks 75 - 2,6005 - 6 weeks 850 - 20,8006 - 7 weeks 4000 - 100,2007 - 12 weeks 11,500 - 289,74724 - 16 weeks 18,300 - 137,28694 - 29 weeks (2nd trimester) 1,400 - 53,67266 - 41 weeks (3rd trimester) 940 - [...] Provider LAB BLOOD ORDERAB LES Final Result [facility] [address] [place] [phone] [phone] * BI US Breast Limited Right (09/01/2024 12:30 PM EDT) Anatomical Region Laterality Modality Breast Right Ultrasound 09/01/2024 12:3 0 PM EDT Narrative 09/01/2024 3:58 PM EDT ? [facility] ? [address] ?[place] [address] ? Ultrasound Report ? Signed ? Patient: Ambika Mcdermott ?MR#: [id number] ?? [id number] ? : 1985 ?Acct:[id number] ? Age/Sex: 39 / F ?ADM Date: 09/01/24 ? Loc: HO.MAMMO ? Attending Dr: Petra LUCERO ? Ordering Physician: Petra Wiley ?? Date of Service: 09/01/24 ?? Procedure(s): US breast RT limited ?? Accession Number(s): [id number] ? cc: Petra Wiley ? EXAMINATION: ?? MM DIAGNOSTIC DIGITAL BREAST [...] ??Eneida Núñez DO ??09/01/2024 03:55 PM EDT ? Dictated By: ?Eneida Núñez DO ? Signed By: ?<Electronically signed by Eneida Núñez, DO in OV> ? 09/01/24 1555 ? DD/ 1230 ? TD/TT: 09/01/24 1332 ? Ecommerce Merchandising Manager: ? Procedure Note Epi, Image - 09/01/2024 [facility] [address] [place] [address] Dr. [place], [place] [address] Ultrasound Report Signed Patient: Ambika Mcdermott#: [id number] : 1985Acct:[id number] Age/Sex: 39 / FADM Date: 09/01/24 Loc: NITIN Attending Dr: Petra LUCERO Ordering Physician: Petra Wiley Date of Service: 09/01/24 Procedure(s): US breast RT limited Accession Number(s): [id number] cc: Petra Wiley [employer] W[employer] T[employer]AT[employer]ANT OPERATOR EXAMINATION: MM DIAGNOSTIC DIGITAL BREAST TOMOSYNTHESIS, BILATERAL [...] 09/01/24 1555 DD/ 1230 TD/TT: 09/01/24 1332 Ecommerce Merchandising Manager: us Petra Wiley [employer] W[employer] T[employer]AT[employer] PLANT OPERATOR IMG US PROCEDURES Final Result * BI Mammogram Diagnostic Tomosynthesis Bilateral (09/01/2024 12:30 PM EDT) Anatomical Region Laterality Modality Breast Bilateral Mammography 09/01/2024 12:3 0 PM EDT Narrative 09/01/2024 3:58 PM EDT ? [facility] ? [address] ?[place], [place] [address] ? Mammography Report ? Signed ? Patient: Ambika Mcdermott ?MR#: [id number] ?? [id number] ? : 1985 ?Acct:[id number] ? Age/Sex: 39 / F ?ADM Date: 09/01/24 ? Loc: HO.MAMMO ? Attending Dr: Petra Wiley W[employer] W[employer] T[employer]ATMENT PLANT OPERATOR ? Ordering Physician: Petra Wiley [employer] W[employer] T[employer]ATMENT PLANT OPERATOR ?Results: 3.6MPr ?? obably Benign Finding - Short 6 M F/U Suggested ? Date of Service: 09/01/24 ?Follow Up: 6 Month F/U ? Procedure(s): MM tomosynthesis diagnostic BI ?? Accession Number(s): [id number] ? cc: Petra Wiley [employer] W[employer] T[employer]ATMENT PLANT OPERATOR ? EXAMINATION: ?? MM DIAGNOSTIC DIGITAL BREAST [...] DD/ 1230 ? TD/TT: 09/01/24 1332 ? Ecommerce Merchandising Manager: ? Procedure Note Donotuseinterpreter, Image - 09/01/2024 [facility] [address] [place] [address] Mammography Report Signed Patient: Ambika Mcdermott#: [id number] : 1985Acct:[id number] Age/Sex: 39 / FADM Date: 09/01/24 Loc: HO.MAMMO Attending Dr: Petra Wiley [employer] W[employer] T[employer]ATMENT PLANT OPERATOR Ordering Physician: Petra Wiley FNPResults: 3.6MPr obably Benign Finding - Short 6 M F/U Suggested Date of Service: 09/01/24Follow Up: 6 Month F/U Procedure(s): MM tomosynthesis diagnostic BI Accession Number(s): [id number] cc: Petra Wiley [employer] W[employer] T[employer]ATMENT PLANT OPERATOR EXAMINATION: MM DIAGNOSTIC DIGITAL BREAST TOMOSYNTHESIS, BILATERAL [...] 09/01/24 1555 DD/ 1230 TD/TT: 09/01/24 1332 Ecommerce Merchandising Manager: us Petra Wiley [employer] W[employer] T[employer] PLANT OPERATOR IMG BI PROCEDURES Final Result * Urinalysis w/reflex microscopic (08/17/2024 2:00 PM EST) Color Urine Yellow [facility] Appearance Urine Clear [facility] PH 5.5 5.0 - 9.0 [facility] Glucose Urine UA Negative Negative mg/dL [facility] Urine Blood Negative Negative [facility] Specific [place] - Urine 1.010 1.005 - 1.025 [facility] Urine Protein Negative Neg-Trace mg/dL [facility] Urine Ketones Negative Negative mg/dL [facility] Nitrite Urine Negative Negative [facility] Leukocyte Esterase Urine Negative Negative [facility] 08/17/2024 2:00 PM EST 08/17/2024 2:25 PM EST Narrative [facility] - 08/17/2024 2:36 PM EST Urine, Clean Catch us Generic External Data Provider LAB URINE ORDERAB LES Final Result Performing Organization Address [facility]/ZIP Co de Phone Number [facility] [address] [place] [phone] * Culture, Urine, Routine (08/11/2024 2:36 PM EST) Urine Urine specimen obtained by clean catch procedure / Unknown 08/11/2024 2:36 PM EST 08/11/2024 4:01 PM EST Comment:UACC Narrative [facility] - 08/13/2024 9:47 AM EST Urine Culture Report Result Urine Culture 10,000 to 50,000 cfu/ml Urine Culture Mixed bacterial terry characteristic of Urine Culture urogenital contamination. Specimen Source: Urine clean catch Generic External Data Provider LAB MICROBIOLOGY - GENERAL ORDERABLES Final Result Performing Organization Address [facility] Co de Phone Number [facility] [address] [place] [phone] * Hepatitis C Viral RNA, Quantitative, Real-Time PCR (03/18/2024 2:05 PM EDT) Hepatitis C Viral Load <15 NOT DETECTED NOT DETECTED IU/mL [facility] HCV Log PCR <1.18 NOT DETECTED NOT DETECTED Log IU/mL [facility] Comment:For additional infor matelena, please refer tohttp://education.[employer]/faq/WEW83r4(This link is being provided for informational/educational purposes only.)THIS TEST WAS PERFORMED AT:[facility] [place] [phone] DEL CID MD Blood 03/18/2024 2:05 PM EDT 03/18/2024 2:05 PM EDT Petra LUCERO LAB BLOOD ORDERABLES Final Res ult Performing Organization Address [facility] Co de Phone Number [facility] [address] [place] [phone] * HIV-1/2 Antigen and Antibodies, Fourth Generation, with Reflexes (03/18/2024 2:05 PM EDT) HIV AB/AG Nonreactive Nonreactive [facility] Comment:HIV-1 p24 Ag and/or HIV-1/HIV-2 Ab not detected.A test result that is nonreactive does not exclude thepossibility of exposure to or infection with HIV-1 and/orHIV-2. Nonreactive results in this assay for individualswith prior exposure to HIV-1 and/or HIV-2 may be due toantigen and antibody levels that are below the limit ofdetection of this assay.[employer] HIV Ag/Ab Combo assay result andsupplemental assay results should be interpreted inconjunction with the patient's clinical presentation,history and other laboratory results. If the results areinconsistent with clinical evidence, additional testing issuggested to confirm the result. Blood Venous blood specimen / Unknown 03/18/2024 2:05 PM EDT 03/18/2024 2:05 PM EDT us Petra Wiley [facility] LAB BLOOD ORDERABLES Final Res ult [facility] [address] [place] [phone] * (ABNORMAL) Lipid Panel, Standard (03/18/2024 2:05 PM EDT) Triglycerides 100 <150 mg/dL [facility] Comment:Desirable Triglyceri de: less than 150 mg/dLBorderline High Triglyceride 150-199 mg/dLHigh Triglyceride: 200-499 mg/dLVery High Triglyceride: greater than or equal to 5OO mg/dL Cholesterol 200(H) <200 mg/dL [facility] Comment:Desirable Cholestero l: less than 200 mg/dLBorderline High Cholesterol: 200-239 mg/dLHigh Cholesterol: greater than 239 mg/dL LDL Cholesterol Calculated 128(H) <100 mg/dL [facility] Comment:Desirable LDL: less than 100 mg/dLNear Optimal/Above Optimal LDL: 110- 129 mg/dLBorderline High LDL: 130-159 mg/dLHigh LDL: 160-189 mg/dLVery High LDL: greater than or equal to 190 mg/dL HDL Cholesterol 52 >40 mg/dL [facility] Comment:Desirable HDL: great er than 40 mg/dL Note: This HDL assay may give artificially low results in patients with liver disease. Blood Venous blood specimen / Unknown 03/18/2024 2:05 PM EDT 03/18/2024 2:05 PM EDT Petra Wiley W[employer] W[employer] TREATMENT PLANT OPERATOR LAB BLOOD ORDERABLES Final Res ult [facility] [address] [place] [phone] * Pap Smear (11/12/2019 12:00 AM EDT) Swab Historical Provider MD LAB CYTOLOGY ORDERABLES F inal Result EXTERNAL LAB from Last 3 Months or Most Recently Relevant to Health Maintenance Insurance [facility] C3 DENTAL-[facility] MEDICAID STAND ADULT Care Teams Personal Injury Attorney Relationship Specialty Start Date End Date Petra Wiley FNP [address] [place] [address] PCP - General Family Medicine 03/17/24 Willard Waters [address] [place] [address] Rheumatology 05/17/24KesslerSeptember [address] [place] [address] Gastroenterology 05/17/24 Juan Sandra MD [address] [place] [address] Hematology and Oncology 05/17/24 Brigid Guy NP [address] [place] [address] Urology 05/17/24 Vicente Mooney MD [address] [place] [address] [address] [place] [address] Obstetrics and Gynecology 05/17/24 Beth Rai MD [address] [place] [address] [place] [address] Neurology 05/17/24 Michell Espinoza [address] [place] [address] Drive 3rd [place] [address] Cardiology 05/17/24 Shelia Zheng Architect In TrainingPanel Coverer 09/26/23
--- OUTSIDE RECORDS SUMMARY | 2024-10-06 15:06 | XMS_ITS | Encounter Summary ---
Author Organization [employer] Address 75 [facility] 7t [place] [address] Care Team Providers Care Battery Engineer Name Role Phone Jennie Murray MD Primary Care Provider Petra Wiley Primary Care Provider Willard Waters Unavailable [phone] Kessler, September Unavailable Juan Sandra MD Unavailable [phone] Brigid Guy NP Unavailable Vicente Mooney MD Unavailable Beth Rai MD Unavailable Michell Espinoza Unavailable Encounter Details Date Type Department Care Team (Late st Contact Info) Description 05/25/2022 Abstract [facility] CH[facility] ADULT DENTAL [address] [place], [place] [phone] Dental, Provider, DDS Social History Tobacco Use [...] Description 10/06/2024 3:30 PM EDT Clinical Support [facility] DIABETES/NUTRITION [address] [place], [place] [phone] Tamanna Mcintyre [address] [place] [address] 10/27/2024 2:30 PM EDT Office Visit [facility] ADULT DENTAL [address] [place] [address] Mary LouLeliaa, DDS [address] [place] [address] 11/04/2024 11:15 AM EDT Office Visit [facility] MEDICINE [address] [place] [address] Petra Wiley, AUTO BODY MECHANIC APPRENTICE [address] [place] [address] 11/25/2024 9:15 AM EDT Office Visit [facility] [address] [place] [address] Petra Wiley, AUTO BODY MECHANIC APPRENTICE [address] [place] [address] 01/18/2025 3:00 PM EDT Office Visit [facility] ADULT DENTAL [address] [place] [address] Sanaz Nelson documented as of this encounter [...] on filedocumented in this encounter Care Teams Battery Engineer Relationship Specialty Start Date End Date Jennie Murray MD 230 [place] [address] PCP - General Family Medicine 06/23/13 03/16/24 Petra Wiley FNP [address] [place] [address] PCP - General Family Medicine 03/17/24 Willard Waters [address] [place] [address] Rheumatology 05/17/24September [address] 3rd [place] [address] Gastroenterology 05/17/24 Juan Sandra MD [address] [place] [address] Hematology and Oncology 05/17/24 Brigid Guy NP [address] [place] [address] Urology 05/17/24 Vicente Mooney MD [address] [place] [address] [address] [place] [address] Obstetrics and Gynecology 05/17/24 Beth Rai MD [address] [place] [address] [place] [address] Neurology 05/17/24 Michell Espinoza [address] [place] [address] 3rd [place] [address] Cardiology 05/17/24 Shelia Zheng Animal Pathology TeacherElectric Refrigerator Servicer 09/26/23 documented as of this encounter
--- OUTSIDE RECORDS SUMMARY | 2024-10-06 15:06 | XMS_ITS | Encounter Summary ---
Author Organization [facility] Address [address] [place] [address] Care Team Providers Care After School Program Teacher Name Role Phone Petra Wiley Primary Care Provider [phone] Reason for Referral * Surgical (Routine) - Pending Review Specialty Diagnoses / Procedures Referred By Mehreen linares Referred To Contact General Surgery Diagnoses Subcutaneous mass of right upper extremity Subcutaneous mass of abdominal wall [facility] Physician Referral Services [address] [place] [address] [facility] [address] [place] [address] Phone: tel: fax: Referral ID Status Reason Start Date Expiration Date Visits Requested Visits Authorized [id number] Pending Review Specialty Services Required 06/26/2024 12/26/2025 6 6 Encounter Details Date Type Department Care Team (Latest Contact Info) Description 06/26/2024 Transcribe Orders [facility] Physician Referral Services [address] [place] [address] Petra Wiley 230 [place] [address] Subcutaneous mass of right upper extremity (Primary [...] Description 11/02/2024 2:20 PM EDT Office Visit [facility] Rhe[facility]ology Clinic [address] [place] [address] Home Care Physical Therapist: Newton Rangel DO 119 [facility] [place] [address] 02/09/2025 10:15 AM EDT Office Visit [facility] Dermatology Clinic 4th Floor [address] [facility], [place] [address] Home Care Physical Therapist: Hipolito Lei MD [address] [place] [address] Scheduled Referrals Name Type Priority Associated Diagnoses Order Schedule Ambulatory referral to General Surgery Outpatient Referral Routine Subcutaneous mass of right upper extremity Subcutaneous mass of abdominal wall Expected: 06/26/2024, Expires: 12/24/2024 documented as of this encounter Visit Diagnoses Diagnosis Subcutaneous mass of right upper extremity- Primary Subcutaneous mass of abdominal wall documented in this encounter Care Teams After School Program Teacher Relationship Specialty Start Date End Date Petra Wiely [address] [place] [address] PCP - General Family Medicine 03/19/24 documented as of this encounter
--- OUTSIDE RECORDS SUMMARY | 2024-10-06 15:06 | XMS_ITS | Clinical Summary ---
Author Organization [facility] Address [address] [place] [address] Care Team Providers Care Security Dispatcher Name Role Phone Petra Wiley Primary Care Provider [phone] Allergies Active Allergy Reactions Criticality Noted Date [...] Type Department Care Team Description 08/06/2024 Telephone [facility] Dermatology Clinic [address] [place] [address], [place] [phone] Wheat Buyer: Khadra Westbrook Telephone Intake, Staff PAC Appt Request - New 08/01/2024 Results Follow-Up [facility]ology [facility] [address] [place] [address] Wheat Buyer: Newton Rangel DO 07/22/2024 12:00 PM EST Office Visit [facility] [address] [place] [address] Wheat Buyer: Newton Rangel DO Erythromelalgia (Primary Dx); Polyarthralgia from Last 3 Months Social History Tobacco [...] Description 11/02/2024 2:20 PM EDT Office Visit [facility] Rhe[facility]ology [facility] [address] [place] [address] Wheat Buyer: Newton Rangel DO 119 [facility] [place] [address] 02/09/2025 10:15 AM EDT Office Visit [facility] Dermatology Clinic 4th Floor [address] [facility], [place] [phone] Wheat Buyer: Hipolito Lei MD [address] [place] [address] Health Maintenance Due Date Last Done Comments HPV and Pap Smear 1987 Hepatitis C Screening 1987 Varicella Vaccines (1 of 2 - 13+ 2-dose series) 2000 Hepatitis B Vaccines (1 of 3 - 19+ 3-dose series) 2006 DTaP,Tdap,and Td Vaccines (1 - Tdap) 10/15/201509/16 Cervical Cancer Screening 11/11/2022 Pap Smear 11/11/2022 11/12/2019 COVID-19 Vaccine ( - season) 2024 Alcohol/Substance Use Screening 06/17/2024 Depression Screening and Follow-Up 06/17/2024 Social Drivers of Health Yoselin ual Screening 06/17/2024 Influenza Vaccine (Season Ended) 2025 04/20/2016, 03/22/2015, 03/06/2013 RSV Vaccine (60+ years old a nd patients) (1 - 1-dose 75+ series) 2062 HIV Screening Completed 03/18/2024, 03/18/2024 Pneumococcal Vaccine: Pediat rebeca (0-5 Years) and At-Risk Patients (6-50 Years) Completed 05/13/2024 Procedures * Due to [employer] law, this organization might not be sharing negative HIV tests. Procedure Name Priority Date/Time Associated Diagnosis Comments SEDIMENTATION RATE, AUTOMATED Routine 07/22/2024 1:56 PM EST Polyarthralgia PROTEIN ELECTROPHORESIS W/REFLEX TO IMMUNOFIXATION, SERUM Routine 07/22/2024 1:56 PM EST Polyarthralgia from Last 3 Months Results * Due to [employer] law, this organization might not be sharing negative HIV tests. * Protein Electrophoresis w/Reflex to Immunofixation, Serum (07/22/2024 1:56 PM EST) Protein, Total 8.1 6.1 - 8.1 g/dL 07/28/2024 7:22 AM EST [facility] Albumin 4.8 3.8 - 4.8 g/dL 07/28/2024 7:22 AM EST [facility] Alpha 1 Globulin 0.3 0.2 - 0.3 g/dL 07/28/2024 7:22 AM EST [facility] Alpha 2 Globulin 0.7 0.5 - 0.9 g/dL 07/28/2024 7:22 AM EST [facility] [place] [employer] Beta 1 Globulin 0.6 0.4 - 0.6 g/dL 07/28/2024 7:22 AM EST [facility] Beta 2 Globulin 0.5 0.2 - 0.5 g/dL 07/28/2024 7:22 AM EST [facility] Gamma Globulin 1.2 0.8 - 1.7 g/dL 07/28/2024 7:22 AM EST [facility] Interpretation See Comments 07/28/2024 7:22 AM EST [facility] Comment: Normal Serum Protein Electrophoresis Pattern. No abnormal protein bands (M-protein) detected. Blood Structure of peripheral vein / Unknown Venipuncture / Unknown 07/22/2024 1:56 PM EST 07/22/2024 2:37 PM EST Narrative [facility] - 07/28/2024 7:22 AM EST [facility] Received Date:[id number] us Newton Yenifer DO LAB BLOOD ORDERABLES Final Res ult [facility] [address] [facility] 3rd Floor, [place] [address], [place] [phone] [facility] [address] [facility] 3rd Floor, [place] [address], [place] [phone] * (ABNORMAL) Sedimentation Rate (07/22/2024 1:56 PM EST) Sed Rate 29(H) <20 mm/Hr mm/Hr 07/22/2024 2:52 PM EST [facility] Blood Structure of peripheral vein / Unknown Venipuncture / Unknown 07/22/2024 1:56 PM EST 07/22/2024 2:37 PM EST us Champion Windowsov DO LAB BLOOD ORDERABLES Final Res ult [facility] [address] [place] [address], from Last 3 [place] [address] [facility] Care Teams Security Dispatcher Relationship Specialty Start Date End Date Petra Wiley [address] [place] [address] PCP - General Family Medicine 03/19/24
--- OUTSIDE RECORDS SUMMARY | 2024-10-06 15:06 | XMS_ITS | Encounter Summary ---
Author Organization [employer] Address 75 [facility] 7t [place] [address] Care Team Providers Care Interline Clerk Name Role Phone Jennie Murray MD Primary Care Provider [phone] Petra Wiley Primary Care Provider [phone] Willard Waters Unavailable [phone] KesslerSeptember Unavailable Juan Sandra MD Unavailable [phone] Brigid Guy NP Unavailable Vicente Mooney MD Unavailable Beth Rai MD Unavailable Michell Espinoza Unavailable Encounter Details Date Type Department Care Team (Late st Contact Info) Description 05/18/2022 Orders Only [facility] MEDICINE [address] [place] [address] Jennie Murray MD [address] [place], [place] [phone] Acute foot pain, unspecified laterality (Primary Dx) [...] Description 10/06/2024 3:30 PM EDT Clinical Support [facility] DIABETES/NUTRITION [address] [place] [address] Tamanna Mcintyre, ANGELINA [address] [place] [address] 10/27/2024 2:30 PM EDT Office Visit [facility] ADULT DENTAL [address] [place] [address] Venkat Barreto DDS [address] [place] [address] 11/04/2024 11:15 AM EDT Office Visit [facility] MEDICINE [address] [place] [address] Petra Wiley FNP [address] [place] [address] 11/25/2024 9:15 AM EDT Office Visit [address] [address] Petra Wiley FNP [address] [place] [address] 01/18/2025 3:00 PM EDT Office Visit [facility] ADULT DENTAL 505 [place] [address] Sanaz Nelson documented as of this encounter Visit Diagnoses Diagnosis Acute foot pain, unspecified laterality- Primary documented in this encounter Care Teams Interline Clerk Relationship Specialty Start Date End Date Jennie Murray MD [address] [place] [address] PCP - General Family Medicine 06/23/13 03/16/24 Petra Wiley FNP [address] [place] [address] PCP - General Family Medicine 03/17/24 Willard Waters [address] [place] [address] Rheumatology 05/17/24 Victoria Smuaya [address] 3rd [place] [address] Gastroenterology 05/17/24 Juan Sandra MD [address] [place] [address] Hematology and Oncology 05/17/24 Brigid Guy NP [address] [place] [address] Urology 05/17/24 Vicente Mooney MD [address] [place] [address] Obstetrics and Gynecology 05/17/24 Beth Rai MD [address] [place] [address] [place] [address] Neurology 05/17/24 Michell Espinoza [address] [facility] [address] 3rd [place] [address] Cardiology 05/17/24 Shelia Zheng Box Maker PaperboardFireman 09/26/23 documented as of this encounter
--- OUTSIDE RECORDS SUMMARY | 2024-10-06 15:06 | XMS_ITS | Encounter Summary ---
Author Organization [employer] Address 75 [facility] 7t [place] [address] Care Team Providers Care Artificial Glass Eye Maker Name Role Phone Jennie Murray MD Primary Care Provider [phone] Petra Wiley Primary Care Provider [phone] Willard Watres Unavailable [phone] Kessler, September Unavailable Juan Sandra MD Unavailable [phone] Brigid Guy NP Unavailable Vicente Mooney MD Unavailable Beth Rai MD Unavailable Michell Espinoza Unavailable Encounter Details Date Type Department Care Team (Late st Contact Info) Description 07/26/2022 Orders Only [facility] MEDICINE [address] [place] [address] Nelson Medrano MD [address] [place] [phone] Chronic idiopathic constipation (Primary Dx) Social History [...] In the last 10 days, have aman u been in contact with someone who was confirmed or suspected to have Coronavirus/COVID-19? No / Unsure 07/25/2022 1:02 PM EST documented as of this encounter Plan of Treatment Upcoming Encounters Date Type Department Care Team (Late st Contact Info) Description 10/06/2024 3:30 PM EDT Clinical Support [facility] DIABETES/NUTRITION [address] [place] [address] Tamanna Mcintyre, RD 230 [place] [address] 10/27/2024 2:30 PM EDT Office Visit [facility] ADULT DENTAL [address] [place] [address] Venkat Barreto DDS [address] [place] [address] 11/04/2024 11:15 AM EDT Office Visit [facility] MEDICINE [address] [place] [address] Petra Wiley FNP 505 [place] [address] 11/25/2024 9:15 AM EDT Office Visit [facility] MEDICINE [address] [place] [address] Petra Wiley FNP 505 [place] [address] 01/18/2025 3:00 PM EDT Office Visit [facility] CHC ADULT DENTAL 505 [place] [address] Sanaz Nelson documented as of this encounter Visit Diagnoses Diagnosis Chronic idiopathic constipation- Primary Unspecified constipation documented in this encounter Additional Health Concerns Assessment Noted Time PHQ-9 Depression Total Score: 0 07/04/19 23 3:01 PM EST documented as of this encounter Care Teams Artificial Glass Eye Maker Relationship Specialty Start Date End Date Jennie Murray MD 230 [place] [address] PCP - General Family Medicine 06/23/13 03/16/24 Petar Wiley FNP [address] [place] [address] PCP - General Family Medicine 03/17/24 Willard Waters [address] [place] [address] Rheumatology 05/17/24 Sumaya Kessler [address] [facility] 3rd [place] [address] Gastroenterology 05/17/24 Juan Sandra MD [address] [place] [address] Hematology and Oncology 05/17/24 Brigid Guy NP [address] [facility] [address] [place] [address] Urology 05/17/24 Vicente Mooney MD [address] [place] [address] [address] [place] [address] Obstetrics and Gynecology 05/17/24 Beth Rai MD [address] [place] [address] 140 [place] [address] Neurology 05/17/24 Michell Espinoza [address] [facility] 3rd [place] [address] Cardiology 05/17/24 Shelia Zheng Planning TechnicianStores Naval 09/26/23 documented as of this encounter
--- OUTSIDE RECORDS SUMMARY | 2024-10-06 15:06 | XMS_ITS | Encounter Summary ---
Author Organization [employer] Address 75 [facility] 7t [place] [address] Care Team Providers Care Panel Laminator Name Role Phone Petra Wiley COLOR SHOP HELPER Primary Care Provider Willard Waters Unavailable [phone] KesslerSeptember Unavailable Juan Sandra MD Unavailable [phone] Brigid Guy NP Unavailable Vicente Mooney MD Unavailable Beth Rai MD Unavailable Michell Espinoza Unavailable Reason for Visit * Reason Onset Date Comments Results 10/06/2024 Encounter Details Date Type Department Care Team ([facility] st Contact Info) Description 10/06/2024 Telephone [facility] MED & PEDS 505 [place], [place] [phone] Sylvia Lemons MD [address] [place], [place] [phone] Results Social History Tobacco Use Types Packs/Day Years [...] encounter Miscellaneous Notes * Telephone Encounter - Akanksha Gusman RN - 10/06/2024 2:43 PM EDT TC to pt. No answer. Voicemail left with roof designer. ----- Message from Sylvia Lemons MD sent at 10/06/2024 2:08 PM EDT ----- Please notify pt that her Hg is once again below 10,, she should resume iron supplementation. Ty! Cristo covering for Isaiasen documented in this encounter Plan of Treatment Upcoming Encounters Date Type Department Care Team (Late st Contact Info) Description 10/06/2024 3:30 PM EDT Clinical Support [facility] DIABETES/NUTRITION 230 [place] [address] Tamanna Mcintyre, RD 230 [place] [address] 10/27/2024 2:30 PM EDT Office Visit [facility] ADULT DENTAL 230 [place] [address] Venkat Barreto DDS 230 [place] [address] 11/04/2024 11:15 AM EDT Office Visit [facility] MEDICINE [address] [place] [address] Petra Wiley FNP 505 [place] [address] 11/25/2024 9:15 AM EDT Office Visit [facility] MEDICINE [address] [place] [address] Petra Wiley FNP 505 [place] [address] 01/18/2025 3:00 PM EDT Office Visit [facility] CHC ADULT DENTAL 505 [place] [address] Sanaz Nelson documented as of this encounter Visit Diagnoses Not on filedocumented in this encounter Additional Health Concerns Assessment Noted Time PHQ-9 Depression Total Score: 13 024 3:11 PM EDT documented as of this encounter Care Teams Panel Laminator Relationship Specialty Start Date End Date Petra Wiley FNP [address] [place] [address] PCP - General Family Medicine 03/17/24 Willard Waters [address] [place] [address] Rheumatology 05/17/24 Sumaya Kessler [address] [place] [address] Drive 3rd [place] [address] Gastroenterology 05/17/24 Juan Sandra MD [address] [place] [address] Hematology and Oncology 05/17/24 Brigid Guy NP [address] [facility] [address] [place] [address] Urology 05/17/24 Vicente Mooney MD [address] [place] [address] [address] [place] [address] Obstetrics and Gynecology 05/17/24 Beth Rai MD [address] [place] [address] Neurology 05/17/24 Michell Espinoza 11 [facility] 3rd [place] [address] Cardiology 05/17/24 Shelia Zheng Customer Counter RepresentativeRn Sexual Assault 09/26/23 documented as of this encounter
--- OUTSIDE RECORDS SUMMARY | 2024-10-06 15:06 | XMS_ITS | Encounter Summary ---
Author Organization [employer] Address 75 [facility] 7t [place] [address] Care Team Providers Care Supervisor International Reservations Name Role Phone Jennie Murray MD Primary Care Provider Petra Wiley Primary Care Provider Willard Waters Unavailable [phone] Kessler, September Unavailable Juan Sandra MD Unavailable [phone] Brigid Guy NP Unavailable Vicente Mooney MD Unavailable Beth Rai MD Unavailable Michell Espinoza Unavailable Encounter Details Date Type Department Care Team (Latest Contact Info) Description 09/03/2018 Abstract [facility] CONVERSIONS Dental, Provider, DDS Social History Tobacco [...] Description 10/06/2024 3:30 PM EDT Clinical Support [facility] DIABETES/NUTRITION [address] [place] [address] [place], [place] [phone] 10/27/2024 2:30 PM EDT Office Visit [facility] ADULT DENTAL 230 [place] [address] Venkat Barreto DDS 230 [place] [address] 11/04/2024 11:15 AM EDT Office Visit [address] [address] Petra Wiley FNP 505 [place] [address] 11/25/2024 9:15 AM EDT Office Visit [address] [address] Petra Wiley FNP 505 [place] [address] 01/18/2025 3:00 PM EDT Office Visit [facility] ADULT DENTAL 505 [place] [address] Sanaz Nelson documented as of this encounter Visit Diagnoses Not on filedocumented in this encounter Care Teams Supervisor International Reservations Relationship Specialty Start Date End Date Jennie Murray MD [address] [place] [address] PCP - General Family Medicine 06/23/13 03/16/24 Petra Wiley FNP [address] [place] [address] PCP - General Family Medicine 03/17/24 Willard Waters [address] [place] [address] Rheumatology 05/17/24 Victoria Sumaya [address] 3rd [place] [address] Gastroenterology 05/17/24 Juan Sandra MD 575 [place] [address] Hematology and Oncology 05/17/24 Brigid Guy NP [address] [place] [address] Urology 05/17/24 Vicente Mooney MD [address] [place] [address] Obstetrics and Gynecology 05/17/24 Beth Rai MD [address] [place] [address] [address] Neurology 05/17/24 Michell Espinoza 11 [facility] 3rd [place] [address] Cardiology 05/17/24 Shelia Zheng Moving ConsultantNetwork Programmer 09/26/23 documented as of this encounter
--- OUTSIDE RECORDS SUMMARY | 2024-10-06 15:06 | XMS_ITS | Encounter Summary ---
Author Organization [employer] Address [address] [facility] [address] 7t [place] [address] Care Team Providers Care Security Rep Name Role Phone Petra Wiley AUTOMOBILE MECHANIC Primary Care Provider [phone] Willard Waters Unavailable [phone] Kesslerseptember Unavailable Juan Sandra MD Unavailable [phone] Brigid Guy NP Unavailable Vicente Mooney MD Unavailable Beth Rai MD Unavailable Michell Espinoza Unavailable Encounter Details Date Type Department Care Team (Late st Contact Info) Description 05/20/2024 Orders Only [facility] CH[facility] MED & PEDS 505 [place], [place] [phone] Provider, MD Addie Social History Tobacco Use Types Packs/Day Years [...] Description 10/06/2024 3:30 PM EDT Clinical Support [facility] DIABETES/NUTRITION [address] [place] [address] Tamanna Mcintyre, ANGELINA 230 [place] [address] 10/27/2024 2:30 PM EDT Office Visit [facility] ADULT DENTAL 230 [place] [address] Venkat Barreto, DDS 230 [place] [address] 11/04/2024 11:15 AM EDT Office Visit [facility] MEDICINE [address] [place] [address] Petra Wiley FNP 505 [place] [address] 11/25/2024 9:15 AM EDT Office Visit [facility] MEDICINE [address] [place] [address], [place] [address] Petra Wiley FNP 505 [place] [address] 01/18/2025 3:00 PM EDT Office Visit [facility] ADULT DENTAL [address] [place] [address] Sanaz Nelson documented as of this encounter [...] documented as of this encounter Care Teams Security Rep Relationship Specialty Start Date End Date Petra Wiley FNP 230 [place] [address] PCP - General Family Medicine 03/17/24 Willard Waters [address] [place] [address] Rheumatology 05/17/24 Victoria Sumaya [address] [facility] [address] 3rd [place] [address] Gastroenterology 05/17/24 Juan Sandra MD [address] [place] [address] Hematology and Oncology 05/17/24 Brigid Guy NP [address] [facility] [address] [place] [address] Urology 05/17/24 Vicente Mooney MD [address] [place] [address] [address] [place] [address] Obstetrics and Gynecology 05/17/24 Beth Rai MD [address] [place] [address] [place] [address] Neurology 05/17/24 Michell Espinoza [address] [place] [address] Drive 3rd [place] [address] Cardiology 05/17/24 Shelia Zheng Opal MinerInstructional Leader 09/26/23 documented as of this encounter
[2024-10-07 10:10] LABS: CT PCR NOT DETECTED (Not Detect.); NG PCR NOT DETECTED (Not Detect.)
== END 2024-10-06 12:44 | disposition home or self-care (01) ==
LOC: HO.LAB 12:43
PROVIDERS: PCP Registered Nurse; Visit Provider Obstetrics & Gynecology
DX: Z30.430 Encounter for insertion of intrauterine contraceptive device (principal); N93.9 Abnormal uterine and vaginal bleeding, unspecified
CPT/HCPCS: 36415; 58100; 58300; 81025; 84443; 84702; 85027; 87491; 87591; 99212; J7298

== ENCOUNTER 2024-10-06 13:10 | Outpatient (AMB) | payer MEDICAID, SELFPAY ==
[2024-10-06 13:11] VITALS: BP 102/66; BMI 32.3
--- NOTE | 2024-10-06 13:11 | A.OFFVIS_ITS ---
Vital Signs 10/06/24 13:11 Height 4 ft 11 in Weight 160 lb BMI 32.3 BP 102/66 Intake Visit Reasons: Vaginal Bleeding Enterprise Services Manager Required: Yes Enterprise Services Manager Language: Telecom Network Manager Services: Enterprise Services Manager Present (in person) Enterprise Services Manager Name: Renee PAZ Information Interpreted: non-clinical & clinical Maintenance And Utilities Supervisor: Maintenance And Utilities Supervisor Present (Renee PAZ) Accompanied by: Spouse Allergies Iodinated Contrast Media [IV DYE, IODINE CONTAINING CONTRAST ] Allergy (Intermediate, Verified 10/06/24 13:23) SHORTNESS OF BREATH citalopram [From CELEXA] Allergy (Unknown, Verified 10/06/24 13:23) VOMITTING duloxetine [Cymbalta] Allergy (Unknown, Verified 10/06/24 13:23) unknown morphine [MORPHINE] Allergy (Unknown, Verified 10/06/24 13:23) PALPITATIONS-PT PREFERS NOT TO TAKE tramadol [TRAMADOL] Allergy (Unknown, Verified 10/06/24 13:23) VOMITING HPI Comments Details: Presenting complaining of 9 day history of heavy vaginal bleeding associated with passage of blood clots. Last co testing was in 11/03 was negative Today H&H is 9.7/31.2, TSH hCG ordered still pending Last mammogram in 09/08 was BI-RADS 3 [facility] Medical History Nausea and vomiting Diarrhea Small intestinal bacterial overgrowth (SIBO), hydrogen subtype Upper abdominal pain Jaylyn albicans infection History of thyroiditis Palpitations Left flank pain, chronic Left hip pain Oropharyngeal dysphagia Rectal bleeding Breast lump Nephrolithiasis Vulvovaginitis jaylyn albicans Vulvovaginal candidiasis Myalgia Toe swelling Hives Vulvovaginitis Fibroadenoma of both breasts Acute diarrhea Recurrent nephrolithiasis Vitamin D deficiency Obesity Fibroadenoma Lipoma Fibromyalgia NURIA positive Hx of lipoma Surgical History History of esophagogastroduodenoscopy (EGD) History of wisdom tooth extraction Family History Father Diabetes Heart attack Asthma Maternal Grandmother Diabetes HTN (hypertension) Parkinson disease Breast cancer Mother Diabetes Family history of diabetes mellitus Sister Asthma Maternal Grandfather Parkinson disease Social History Household Members: Children Housing: Condominium Are you a primary primary health care nurse to a significant other at home: No Do you presently have visiting nurse 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 (sample dye mixer) Alcohol intake: never Patient Tobacco Use Status: Never used Tobacco Second Hand Smoke Exposure: Yes (Neighbors) service: No Current occupational status: disabled Sexual orientation: Straight/Heterosexual Gender identity: Female Female Reproductive History Menstrual Age of Menarche: 13 Review of Systems Const All systems reviewed & are unremarkable except as noted in HPI and below Physical Exam Vital Signs: Last Vital Signs BP 102/66 10/06/24 13:11 BMI result Body Mass Index 32.3 General: Yes no CVA tenderness External Female Exam: normal external appearance and normal appearance of the urethra Speculum Exam - Vagina: normal appearance of the vagina, normal palpation, no lesions, no masses and other (No evidence of active vaginal bleeding) Speculum Exam - Cervix: normal appearance of the cervix, normal palpation, no lesions, no masses and nontender Bimanual exam- vagina & uterus: normal bimanual exam, normal palpation, uterine size normal, normal palpation, uterine shape normal, No Cervical tenderness present and non-tender Bimanual Exam- Adnexa, other: normal adnexae Back/Spine/Pelvis Back: no CVA tenderness Office Procedures Endometrial Biopsy Details: The patient was counseled regarding the indication and benefits of endometrial sampling to rule out endometrial pathology including not limited to endometrial hyperplasia or endometrial cancer and others; The alternatives (Either do nothing vs. hysteroscopy D&C) & the risks were discussed with the patient incl uding but not limited: pain, uterine perforation, bleeding, infection, possible injury to bladder, bowel, ureter, possible need for blood transfusion with all its possible risks. The patient verbalized understanding all questions answered and signed consent. Urine test done in the office was negative The patient was placed into the dorsal lithotomy position; a speculum was inserted in the vagina. Using aseptic technique for the procedure, the cervix was cleansed with Betadine. The anterior lip of the cervix was grasped with a single tooth tenaculum. The uterus was sounded to 7 cm with a 4 mm Pipelle was used. Tissues samples were obtained and placed in formalin, in a patient labeled container and sent to the pathology department. At the end of the procedure, there was minimal bleeding noted The patient tolerated the procedure well and was discharged in good condition with the following instructions: Nothing in the vagina until the bleeding stops. No sex until the bleeding stops, to call if any of the following occurs: fever (>100.4), flu-like symptoms, abdominal pain, heavy bleeding, four smelling vaginal discharge. The patient was instructed to schedule a Follow up appointment in 2 weeks to discuss pathology results of the biopsy and treatment options. This note was generated with a voice recognition program. Some errors may have been overlooked during the review of this note. Sometimes these errors may affect the content or meaning of a given sentence. 86118-Akqachdyeba Biopsy IUD Insert/Removal Details Details: The patient is presenting for Mirena IUD insertion Urine test was done in the office and was negative; All the contraindications were excluded. The following possible complications were discussed with the patient: Intrauterine , Ectopic , Sepsis, Pelvic Infection, Irregular Bleeding and Amenorrhea, Perforation, Expulsion, Ovarian Cysts, Breast Cancer, The following adverse effects were discussed with the patient: alteration of menstrual bleeding pattern, including: unscheduled uterine bleeding decreased uterine bleeding increased scheduled uterine bleeding female genital tract bleeding ,amenorrhea , genital discharge , vulvovaginitis , breast pain , benign ovarian cyst and associated complications , dysmenorrhea , Gastrointestinal disorders abdominal/pelvic pain, headache/migraine , back pain , acne , depression Alternative options were discussed with the patient including but not limited: control pills, patch, NuvaRing, Depo-medroxyprogesterone acetate, Nexplanon, copper IUD, sterilization, vasectomy, others The procedure was explained in detail to patient , at the end patient signed the informed consent obtained. A no touch technique was used throughout the procedure. A speculum was placed into vagina and cervix was cleaned with betadine). A tenaculum was placed. A plastic sound was advanced through the external and internal os until it reached the fundus of the uterus, the depth was 8 cm. The sound was then withdrawn. The IUD was loaded in a sterile manner and advanced into position. The string was visualized and cut to 3 cm. Tenaculum site hemostatic. All instruments removed from vagina. Patient tolerated the procedure well. NO complications were noted. Patient was instructed to call for fever over 100.4, significant pain unrelieved by Motrin, IUD expulsion, heavy bleeding, or abnormal discharge. In addition, the following clinical considerations were discussed with the patient to call for removal: A stroke or heart attack ,Very severe or migraine headaches ,Unexplained fever ,Yellowing of the skin or whites of the eyes, as these may be signs of serious liver problems , or suspected , Pelvic pain or pain during sex ,HIV positive seroconversion in herself or her partner , Possible exposure to sexually transmitted infections Unusual vaginal discharge or genital sores , severe vaginal bleeding or bleeding that lasts a long time, or if she misses a menstrual period, Inability to feel Mirena's threads Counseled the patient that the IUD does not protect against STI's, recommended use of condoms for the first 7 days post insertion and explained to the patient that condoms are recommended for patients at risk for sexually transmitted infections. Informed the patient that Mirena IUD is FDA approved for 8 years for contraception for 5 years for the treatment of heavy menses Instructed the patient to schedule a Follow up appointment in 4 to 6 weeks following insertion. This note was generated with a voice recognition program. Some errors may have been overlooked during the review of this note. Sometimes these errors may af fect the content or meaning of a given sentence. 43887-ZCV Insertion Procedure code (CPT) selection complete Office Meds Mirena 21 mcg/24 hr (up to 8 years) 52 mg intrauterine device Performing Provider: Vicente Mooney MD [place] [facility] Documented (not given) by: Vicente Mooney MD on 10/06/24 14:30 Dose Route Admin Location Dispensed Lot Number Expiration Date [facility] Robot Designer 1 device intrauterine ea Assessment & Plan Assessment & Plan (1) Abnormal uterine bleeding (AUB): Comment: NURIA positive B 3 Mammo 09/08 Anemia Code(s): N93.9 - Abnormal uterine and vaginal bleeding, unspecified Category: Medical Plan: Iron sulfate 325 mg p.o. b.i.d.. Co testing done, GC and chlamydia taken CBC, TSH, HCG, and pelvic ultrasound ordered. Discussed with the patient the different causes of abnormal bleeding including thyroid disorders, uterine and ovarian pathology, endometrial hyperplasia, carcinoma and other potential causes. Discussed with the patient the work up including CBC (to r/o anemia), TSH, pelvic Ultrasound, endometrial biopsy to r/o endometrial pathology. EMB done, see procedure note Discussed with the patient the results of the work up done and options of treatment including Lysteda, control pills (increase the risk of thrombosis especially inpatient was positive NURIA), Mirena IUD (has an increased association with risk of breast cancer with long-term use especially in her case with BI-RADS 3 Last its use for short-term to stop the bleeding and have a longer term plan for AUB treatment, endometrial ablation and hysterectomy (contraindicated in case the patient is interested in future fertility). All pros, cons, risks and benefits if each option was discussed with the patient and the patient decided to go ahead with Mirena IUD so a more detailed discussion about it was conducted including mechanism of action, risks (uterine perforation, infection, injury to bladder, bowel, displacement, and others) benefits (hypo menorrhea, amenorrhea, ...). GC/CT were taken and the patient is interested in Mirena IUD insertion understands that long-term use can increase the risk of breast cancer and will call back in case mammogram is BI-RADS 4 needs biopsy for IUD removal and would like to think about long-term definitive treatment including uterine artery embolization, hysterectomy or endometrial ablation . Mirena IUD inserted, see procedure note Instructions given the patient to schedule a 6 weeks EMB/IUD follow-up appointment and to rediscuss longer-term treatment, to call or go to emergency room in case of persistent or heavy vaginal bleeding, fever above 100.4, nausea or vomiting. Orders: Orders US pelvic and transvaginal Today N93.9 - Abnormal uterine and vaginal bleeding, unspecified AMB Endometrial Biopsy Today N93.9 - Abnormal uterine and vaginal bleeding, unspecified AMB IUD Insertion/Removal - Practice Supplied Today N93.9 - Abnormal uterine and vaginal bleeding, unspecified Medications: New Mirena (levonorgestrel) 1 device intrauterine ONCE 1 ea 0RF AUB NS N93.9 - Abnormal uterine and vaginal bleeding, unspecified Coding Level of Care Code Est Pt Level 4 (60021) Procedure Only Diagnoses Abnormal uterine bleeding (AUB) N93.9 CPT Codes Endometrial Biopsy - CPT: 67583-Ultgdwkwkjf Biopsy ([id number]) Details - CPT: 10995-FRX Insertion ([id number])
--- OUTSIDE RECORDS SUMMARY | 2024-10-06 15:36 | XMS_ITS | Encounter Summary ---
Author Organization [employer] Address 75 [facility] 7t [place] [address] Care Team Providers Care Lead Pharmacy Technician Name Role Phone Jennie Murray MD Primary Care Provider Petra Wiley Primary Care Provider Willard Waters Unavailable [phone] Kessler, September Unavailable Juan Sandra MD Unavailable [phone] Brigid Guy NP Unavailable Vicente Mooney MD Unavailable Beth Rai MD Unavailable Michell Espinoza Unavailable Reason for Visit * Reason Onset Date Comments Appointment Request 12/25/2023 Encounter Details Date Type Department Care Team (Late st Contact Info) Description 12/25/2023 Telephone [facility] MEDICINE [address] [place], [place] [phone] Jennie Murray MD 505 [place], [place] [phone] Appointment Request Social History Tobacco Use Types [...] 12/25/2023 1:07 PM EDT Tc from Patrice, personal care attendant with [facility], calling to schedule appt for pt. Pt is awaiting transfer pt appt with Dr. Wiley in which typewriter ribbon winder attempted to schedule but found no availability. Please contact Patrice at [phone]. documented in this encounter Plan of Treatment Upcoming Encounters Date Type Department Care Team (Late st Contact Info) Description 10/27/2024 2:30 PM EDT Office Visit [facility] ADULT DENTAL [address] [place] [address] Venkat Barreto DDS [address] [place] [address] 11/04/2024 11:15 AM EDT Office Visit [facility] MEDICINE [address] [place], [place] [phone] Petra Wiley FNP 505 [place] [address] 11/25/2024 9:15 AM EDT Office Visit [facility] MEDICINE [address] [place] [address] Petra Wiley FNP 505 [place] [address] 01/18/2025 3:00 PM EDT Office Visit [facility] ADULT DENTAL 505 [place] [address] Sanaz Nelson documented as of this encounter Visit Diagnoses Not on filedocumented in this encounter Additional Health Concerns Assessment Noted Time PHQ-9 Depression Total Score: 0 07/04/19 23 3:01 PM EST documented as of this encounter Care Teams Lead Pharmacy Technician Relationship Specialty Start Date End Date Jennie Murray MD 230 [place] [address] PCP - General Family Medicine 06/23/13 03/16/24 Petra Wiley FNP [address] [place] [address] PCP - General Family Medicine 03/17/24 Willard Waters [address] [place] [address] Rheumatology 05/17/[address] 3rd [place] [address] Gastroenterology 05/17/24 Juan Sandra MD [address] [place] [address] Hematology and Oncology 05/17/24 Brigid Guy NP [address] [place] [address] Urology 05/17/24 Vicente Mooney MD [address] [place] [address] [address] [place] BUN[place] [address] Obstetrics and Gynecology 05/17/24 Beth Rai MD [address] [place] [address] [place] [address] Neurology 05/17/24 Michell Espinoza [address] [place] [address] 3rd Floor [place] Bunch [address] Cardiology 05/17/24 Shelia Zheng Supervisor Paper TestingCarburetor Rebuilder 09/26/23 documented as of this encounter
--- OUTSIDE RECORDS SUMMARY | 2024-10-06 15:36 | XMS_ITS | Encounter Summary ---
Author Organization [employer] Address 75 [facility] 7t [place] [address] Care Team Providers Care Salvage Grinder Name Role Phone Jennie Murray MD Primary Care Provider Petra Wiley Primary Care Provider Willard Waters Unavailable [phone] KesslerSeptember Unavailable Juan Sandra MD Unavailable [phone] Brigid Guy NP Unavailable Vicente Mooney MD Unavailable Beth Rai MD Unavailable Michell Espinoza Unavailable Encounter Details Date Type Department Care Team (Latest Contact Info) Description 09/03/2018 Abstract [facility] CONVERSIONS Dental, Provider, DDS Social History [...] Care Team ( st Contact Info) Description 10/27/2024 2:30 PM EDT Office Visit [facility] ADULT DENTAL 230 [place], [place] [phone] Venkat Barreto DDS [address] [place], [place] [phone] 11/04/2024 11:15 AM EDT Office Visit [facility] MEDICINE 230 [place] [address] Petra Wiley FNP 505 [place] [address] 11/25/2024 9:15 AM EDT Office Visit [facility] MEDICINE 230 [place] [address] Petra Wiley FNP 505 [place] [address] 01/18/2025 3:00 PM EDT Office Visit [facility] ADULT DENTAL 505 [place] [address] Sanaz Nelson documented as of this encounter Visit Diagnoses Not on filedocumented in this encounter Care Teams Salvage Grinder Relationship Specialty Start Date End Date Jennie Murray MD 230 [place] [address] PCP - General Family Medicine 06/23/13 03/16/24 Petra Wiley FNP 230 [place] [address] PCP - General Family Medicine 03/17/24 Willard Waters [address] [place] [address] Rheumatology 05/17/24September [address] 3rd [place] [address] Gastroenterology 05/17/24 Juan Sandra MD 575 [place] [address] Hematology and Oncology 05/17/24 Brigid Guy NP [address] [place] [address] Urology 05/17/24 Vicente Mooney MD [address] [place] [address] [address] [place] [address] Obstetrics and Gynecology 05/17/24 Beth Rai MD [address] [place] [address] [place] [address] Neurology 05/17/24 Michell Espinoza [address] 3rd [place] [address] Cardiology 05/17/24 Shelia Zheng Tap BuilderChief Mechanical Officer 09/26/23 documented as of this encounter
--- OUTSIDE RECORDS SUMMARY | 2024-10-06 15:36 | XMS_ITS | Encounter Summary ---
Author Organization [employer] Address 75 [facility] 7t [place] [address] Care Team Providers Care Senior Analyst Market Intelligence Name Role Phone Jennie Murray MD Primary Care Provider Petra Wiley Primary Care Provider Willard Waters Unavailable [phone] KesslerSeptember Unavailable Juan Sandra MD Unavailable [phone] Brigid Guy NP Unavailable Vicente Mooney MD Unavailable Beth Rai MD Unavailable [phone] Michell Espinoza Unavailable Reason for Visit * Reason Onset Date Comments medication 09/19/2022 Encounter Details Date Type Department Care Team (Late st Contact Info) Description 09/19/[address] [facility] ADULT DENTAL [address] [place], [place] [phone] Venkat Barreto DDS 230 [facility] [place], [place] [phone] medication Social History Tobacco Use Types Packs/Day [...] EDT Script was sent for Augementin to [facility] in [place]. Patient went in to picker script and they stated there was nothing there. Contacted [facility] and they stated that nationwide there was a shut down on their system for about 3 hours so it doesn't look like they received it. Can it be resent for patient? documented in this encounter Plan of Treatment Upcoming Encounters Date Type Department Care Team (Late st Contact Info) Description 10/27/2024 2:30 PM EDT Office Visit [facility] ADULT DENTAL 230 [place] [address] Venkat Barreto DDS 230 [place] [address] 11/04/2024 11:15 AM EDT Office Visit [facility] MEDICINE [address] [place] [address] Petra Wiley FNP 505 [place] [address] 11/25/2024 9:15 AM EDT Office Visit [facility] MEDICINE 230 [place] [address] Petra Wiley FNP [address] [place] [address] 01/18/2025 3:00 PM EDT Office Visit [facility] ADULT DENTAL [address] [place] [address] Sanaz Nelson documented as of this encounter Visit Diagnoses Not on filedocumented in this encounter Additional Health Concerns Assessment Noted Time PHQ-9 Depression Total Score: 0 07/04/19 23 3:01 PM EST documented as of this encounter Care Teams Senior Analyst Market Intelligence Relationship Specialty Start Date End Date Jennie Murray MD 230 [place] [address] PCP - General Family Medicine 06/23/13 03/16/24 Petra Wiley FNP 230 [place] [address] PCP - General Family Medicine 03/17/24 Willard Waters [address] [place] [address] Rheumatology 05/17/24September 11 [facility] 3rd [place] [address] Gastroenterology 05/17/24 Juan Sandra MD [address] [place] [address] Hematology and Oncology 05/17/24 Brigid Guy NP 10 [facility] [address] [place] [address] Urology 05/17/24 Vicente Mooney MD [address] [place] [address] [address] [place] [address] Obstetrics and Gynecology 05/17/24 Beth Rai MD [address] [place] [address] 140 [place] [address] Neurology 05/17/24 Michell Espinoza [address] [place] [address] 3rd Floor [place]HA Katz [address] Cardiology 05/17/24 Shelia Zheng Finisher HandRn Dialysis 09/26/23 documented as of this encounter
--- OUTSIDE RECORDS SUMMARY | 2024-10-06 15:36 | XMS_ITS | Encounter Summary ---
Author Organization [employer] Address 75 [facility] 7t [place] [address] Care Team Providers Care Ground Hand Name Role Phone Jennie Murrya MD Primary Care Provider Petra Wiley Primary Care Provider Willard Waters Unavailable [phone] KesslerSeptember Unavailable Juan Sandra MD Unavailable [phone] Brigid Guy NP Unavailable Vicente Mooney MD Unavailable Beth Rai MD Unavailable Michell Espinoza Unavailable Encounter Details Date Type Department Care Team (Latest Contact Info) Description 09/12/2020 Abstract [facility] CONVERSIONS Dental, Provider, DDS Social [...] Description 10/27/2024 2:30 PM EDT Office Visit [facility] ADULT DENTAL [address] [place], [place] [phone] Venkat Barreto DDS [address] [place], [place] [phone] 11/04/2024 11:15 AM EDT Office Visit [facility] MEDICINE [address] [place] [address] Petra Wiley FNP 505 [place] [address] 11/25/2024 9:15 AM EDT Office Visit [facility] MEDICINE [address] [place] [address] Petra Wiley FNP 505 [place] [address] 01/18/2025 3:00 PM EDT Office Visit [facility] ADULT DENTAL 505 [place] [address] Sanaz Nelson documented as of this encounter Visit Diagnoses Not on filedocumented in this encounter Care Teams Ground Hand Relationship Specialty Start Date End Date Jennie Murray MD 230 [place] [address] PCP - General Family Medicine 06/23/13 03/16/24 Petra Wiley FNP [address] [place] [address] PCP - General Family Medicine 03/17/24 Willard Waters [address] [place] [address] Rheumatology 05/17/24September [address] 3rd [place] [address] Gastroenterology 05/17/24 Juan Sandra MD 575 [place] [address] Hematology and Oncology 05/17/24 Brigid Guy NP [address] [place] [address] Urology 05/17/24 Vicente Mooney MD [address] [place] [address] [address] [facility] [address] Obstetrics and Gynecology 05/17/24 Beth Rai MD [address] [place] [address] [place] [address] Neurology 05/17/24 Michell Espinoza [address] 3rd [place] [address] Cardiology 05/17/24 Shelia Zheng Nuclear Waste Process OperatorRegional Clinical Director 09/26/23 documented as of this encounter
--- OUTSIDE RECORDS SUMMARY | 2024-10-06 15:36 | XMS_ITS | Encounter Summary ---
Author Organization [employer] Address 75 [facility] 7t [place] [address] Care Team Providers Care Injection Molding Technician Name Role Phone Jennie Murray MD Primary Care Provider [phone] Petra Wiley Primary Care Provider Willard Waters Unavailable [phone] September Unavailable Juan Sandra MD Unavailable [phone] Brigid Guy NP Unavailable Vicente Mooney MD Unavailable Beth Rai MD Unavailable Michell Espinoza Unavailable Encounter Details Date Type Department Care Team (Late st Contact Info) Description 05/18/2022 Orders Only [facility]INE 230 [place] [address] Jennie Murray MD 505 [place], [place] [phone] Acute foot pain, unspecified laterality (Primary Dx) [...] Description 10/27/2024 2:30 PM EDT Office Visit [facility] ADULT DENTAL 230 [place] [address] Venkat Barreto DDS 230 [place] [address] 11/04/2024 11:15 AM EDT Office Visit [facility] [address] [place] [address] Petra Wiley FNP 505 [place] [address] 11/25/2024 9:15 AM EDT Office Visit [facility] [address] [place] [address] Petra Wiley FNP 505 [place] [address] 01/18/2025 3:00 PM EDT Office Visit [facility] ADULT DENTAL 505 [place] [address] Sanaz Nelson documented as of this encounter Visit Diagnoses Diagnosis Acute foot pain, unspecified laterality- Primary documented in this encounter Care Teams Injection Molding Technician Relationship Specialty Start Date End Date Jennie Murray MD [address] [place] [address] PCP - General Family Medicine 06/23/13 03/16/24 Petra Wiley FNP [address] [place] [address] PCP - General Family Medicine 03/17/24 Willard Waters [address] [place] [address] Rheumatology 05/17/24 Victoria Sumaya [address] 3rd [place] [address] Gastroenterology 05/17/24 Juan Sandra MD 575 [place] [address] Hematology and Oncology 05/17/24 Brigid Guy NP [address] [place] [address] Urology 05/17/24 Vicente Mooney MD [address] [place] [address] Obstetrics and Gynecology 05/17/24 Beth Rai MD [address] [place] [address] [address] Neurology 05/17/24 Michell Espinoza 11 [facility] 3rd [place] [address] Cardiology 05/17/24 Shelia Zheng Dining Car StewardFuel Cell Systems Engineer 09/26/23 documented as of this encounter
--- OUTSIDE RECORDS SUMMARY | 2024-10-06 15:36 | XMS_ITS | Encounter Summary ---
Author Organization [employer] Address 75 [facility] 7t [place] [address] Care Team Providers Care Actuarial Trainee Name Role Phone Jennie Murray MD Primary Care Provider Petra Wiley Primary Care Provider [phone] Willard Waters Unavailable [phone] Kessler, September Unavailable Juan Sandra MD Unavailable [phone] Brigid Guy NP Unavailable Vicente Mooney MD Unavailable Beth Rai MD Unavailable Michell Espinoza Unavailable Encounter Details Date Type Department Care Team (Late st Contact Info) Description 07/26/2022 Orders Only [facility] MEDICINE 230 [place] [address] Nelson Medrano MD [address] [place] [phone] Chronic idiopathic constipation (Primary Dx) Social History [...] Description 10/27/2024 2:30 PM EDT Office Visit [facility] ADULT DENTAL 230 [place] [address] Venkat Barreto DDS 230 [place] [address] 11/04/2024 11:15 AM EDT Office Visit [facility] MEDICINE [address] [place] [address] Petra Wiley FNP 505 [place] [address] 11/25/2024 9:15 AM EDT Office Visit [address] [address] Petra Wiley FNP 505 [place] [address] 01/18/2025 3:00 PM EDT Office Visit [facility] ADULT DENTAL 505 [place] [address] Sanaz Nelson documented as of this encounter Visit Diagnoses Diagnosis Chronic idiopathic constipation- Primary Unspecified constipation documented in this encounter Additional Health Concerns Assessment Noted Time PHQ-9 Depression Total Score: 0 07/04/19 23 3:01 PM EST documented as of this encounter Care Teams Actuarial Trainee Relationship Specialty Start Date End Date Jennie Murray MD [address] [place] [address] PCP - General Family Medicine 06/23/13 03/16/24 Petra Wiley FNP 230 [place] [address] PCP - General Family Medicine 03/17/24 Willard Waters [address] [place] [address] Rheumatology 05/17/24 Sumaya Kessler 11 [facility] 3rd [place] [address] Gastroenterology 05/17/24 Juan Sandra MD [address] [place] [address] Hematology and Oncology 05/17/24 Brigid Guy NP 10 [facility] [address] [place] [address] Urology 05/17/24 Vicente Mooney MD [address] [place] [address] [address] [place] [address] Obstetrics and Gynecology 05/17/24 Beth Rai MD [address] [place] [address] Neurology 05/17/24 Michell Espinoza 11 [facility] 3rd [place] [address] Cardiology 05/17/24 Shelia Zheng Mill DresserBarrel Cooper 09/26/23 documented as of this encounter
--- OUTSIDE RECORDS SUMMARY | 2024-10-06 15:36 | XMS_ITS | Encounter Summary ---
Author Organization [employer] Address 75 [facility] 7t [place] [address] Care Team Providers Care Food Product Inspector Name Role Phone Jennie Murray MD Primary Care Provider Petra Wiley Primary Care Provider [phone] Willard aWters Unavailable [phone] September Unavailable Juan Sandra MD Unavailable [phone] Brigid Guy NP Unavailable Vicente Mooney MD Unavailable Beth Rai MD Unavailable Michell Espinoza Unavailable Encounter Details Date Type Department Care Team (Late st Contact Info) Description 05/25/2022 Abstract [facility]C ADULT DENTAL [address] [place], [place] [phone] Dental, Provider, DDS Social History Tobacco Use [...] Description 10/27/2024 2:30 PM EDT Office Visit [facility] ADULT DENTAL 230 [place], [place] [phone] Venkat Barreto DDS [address] [place] [address] 11/04/2024 11:15 AM EDT Office Visit [facility] 230 [place] [address] Petra Wiley, PICKING MACHINE OPERATOR HELPER [address] [place] [address] 11/25/2024 9:15 AM EDT Office Visit [facility] 230 [place] [address] Petra Wiley, PICKING MACHINE OPERATOR HELPER 505 [place] [address] 01/18/2025 3:00 PM EDT Office Visit [facility] ADULT DENTAL [address] [place] [address] Sanaz Nelson documented as of this encounter [...] on filedocumented in this encounter Care Teams Food Product Inspector Relationship Specialty Start Date End Date Jennie Murray MD 230 [place] [address] PCP - General Family Medicine 06/23/13 03/16/24 Petra Wiley FNP 230 [place] [address] PCP - General Family Medicine 03/17/24 Willard Waters [address] [place] [address] Rheumatology 05/17/24KesslerSeptember 11 [facility] 3rd [place] [address] Gastroenterology 05/17/24 Juan Sandra MD [address] [place] [address] Hematology and Oncology 05/17/24 Brigid Guy NP [address] [facility] [address] [place] [address] Urology 05/17/24 Vicente Mooney MD [address] [place] [address] [address] [place] [address] Obstetrics and Gynecology 05/17/24 Beth Rai MD [address] [place] [address] 140 [place] [address] Neurology 05/17/24 Michell Espinoza 11 [facility] 3rd [place] [address] Cardiology 05/17/24 Shelia Zheng Past Due Accounts ClerkComputer Support Technician 09/26/23 documented as of this encounter
--- OUTSIDE RECORDS SUMMARY | 2024-10-06 15:36 | XMS_ITS | Clinical Summary ---
Author Organization [facility] Address [address] [place] [address] Care Team Providers Care Day Care Director Name Role Phone Petra Wiley Primary Care Provider [phone] Allergies Active Allergy Reactions Criticality Noted Date [...] Type Department Care Team Description 08/06/2024 Telephone [facility] Dermatology Clinic [address] [place] [address], [place] [phone] Online Marketer: Khadra Westbrook Telephone Intake, Staff PAC Appt Request - New 08/01/2024 Results Follow-Up [facility] [address] [place] [address] Online Marketer: Newton Rangel DO 07/22/2024 12:00 PM EST Office Visit [facility] [address] [place] [address] Online Marketer: Newton Rangel DO Erythromelalgia (Primary Dx); Polyarthralgia [...] Description 11/02/2024 2:20 PM EDT Office Visit [facility] [address] [place] [address] Online Marketer: Newton Rangel DO [address] [facility] [place] [address] 02/09/2025 10:15 AM EDT Office Visit [facility] Dermatology Clinic 4th Floor [address] [facility], [place] [phone] Online Marketer: Hipolito Lei MD [address] [place] [address] Health Maintenance Due Date Last Done Comments [...] Years) Completed 05/13/2024 Procedures * Due to [place] [email or web address] law, this organization might not be sharing negative HIV tests. Procedure Name Priority Date/Time Associated Diagnosis Comments SEDIMENTATION RATE, AUTOMATED Routine 07/22/2024 1:56 PM EST Polyarthralgia PROTEIN ELECTROPHORESIS W/REFLEX TO IMMUNOFIXATION, SERUM Routine 07/22/2024 1:56 PM EST Polyarthralgia from Last 3 Months Results * Due to [place] [email or web address] law, this organization might not be sharing negative HIV tests. * Protein Electrophoresis w/Reflex to Immunofixation, Serum (07/22/2024 1:56 PM EST) Protein, Total 8.1 6.1 - 8.1 g/dL 07/28/2024 7:22 AM EST [facility] Albumin 4.8 3.8 - 4.8 g/dL 07/28/2024 7:22 AM EST [facility] Alpha 1 Globulin 0.3 0.2 - 0.3 g/dL 07/28/2024 7:22 AM EST [facility] Alpha 2 Globulin 0.7 0.5 - 0.9 g/dL 07/28/2024 7:22 AM EST [facility] [place] [facility] Beta 1 Globulin 0.6 0.4 - 0.6 g/dL 07/28/2024 7:22 AM EST [facility] Beta 2 Globulin 0.5 0.2 - 0.5 g/dL 07/28/2024 7:22 AM EST [facility] Gamma Globulin 1.2 0.8 - 1.7 g/dL 07/28/2024 7:22 AM EST [facility] Interpretation See Comments 07/28/2024 7:22 AM EST [facility] Comment: Normal Serum Protein Electrophoresis Pattern. No abnormal protein bands (M-protein) detected. Blood Structure of peripheral vein / Unknown Venipuncture / Unknown 07/22/2024 1:56 PM EST 07/22/2024 2:37 PM EST Narrative [facility] - 07/28/2024 7:22 AM EST [facility] Received Date:[id number] us Newton Yenifer DO LAB BLOOD ORDERABLES Final Res ult [facility] [address] [facility] 3rd Floor, [place] [address], [place] [phone] [facility] [address] [facility] 3rd Floor, [place] [address], [place] [phone] * (ABNORMAL) Sedimentation Rate (07/22/2024 1:56 PM EST) Sed Rate 29(H) <20 mm/Hr mm/Hr 07/22/2024 2:52 PM EST [facility] Blood Structure of peripheral vein / Unknown Venipuncture / Unknown 07/22/2024 1:56 PM EST 07/22/2024 2:37 PM EST us Rezeeov DO LAB BLOOD ORDERABLES Final Res ult [facility] [address] [place] [address], from Last 3 [place] [id number] [facility] Care Teams Day Care Director Relationship Specialty Start Date End Date Petra Wiley [address] [place] [address] PCP - General Family Medicine 03/19/24
--- OUTSIDE RECORDS SUMMARY | 2024-10-06 15:36 | XMS_ITS | Encounter Summary ---
Author Organization [employer] Address [address] [facility] [address] [facility] [address] 7t [place] [address] Care Team Providers Care Surgical Supply Assistant Name Role Phone Petra Wiley AUTOMOBILE DAMAGE FIELD APPRAISER Primary Care Provider Willard Waters Unavailable [phone] Kesslerseptember Unavailable Juan Sandra MD Unavailable [phone] Brigid Guy NP Unavailable Vicente Mooney MD Unavailable Beth Rai MD Unavailable Michell Espinoza Unavailable Encounter Details Date Type Department Care Team (Late st Contact Info) Description 05/20/2024 Orders Only [facility] MED & PEDS [address] [place], [place] [phone] Provider, MD Addie Social History Tobacco Use [...] Description 10/27/2024 2:30 PM EDT Office Visit [facility] ADULT DENTAL [address] [place] [address] Venkat Barreto, DDS [address] [place] [address] 11/04/2024 11:15 AM EDT Office Visit [facility] MEDICINE [address] [place] [address] Petra Wiley FNP [address] [place] [address] 11/25/2024 9:15 AM EDT Office Visit [facility] [address] [place] [address] Petra Wiley FNP [address] [place] [address] 01/18/2025 3:00 PM EDT Office Visit [facility] ADULT D[facility]AL [address] [place] [address] Sanaz Nelson documented as of this encounter [...] documented as of this encounter Care Teams Surgical Supply Assistant Relationship Specialty Start Date End Date Petra Wiley FNP [address] [place] [address] PCP - General Family Medicine 03/17/24 Willard Waters [address] [place] [address] Rheumatology 05/17/24 Victoria Sumaya [address] [facility] 3rd [place] [address] Gastroenterology 05/17/24 Juan Sandra MD [address] [place] [address] Hematology and Oncology 05/17/24 Brigid Guy NP [address] [place] [address] Urology 05/17/24 Vicente Mooney MD [address] [place] [address] [address] [place] [address] Obstetrics and Gynecology 05/17/24 Beth Rai MD [address] [place] [address] 140 [place] [address] Neurology 05/17/24 Michell Espinoza [address] 3rd [place] [address] Cardiology 05/17/24 Shelia Zheng Senior Software AnalystBraille Proofreader 09/26/23 documented as of this encounter
--- OUTSIDE RECORDS SUMMARY | 2024-10-06 15:36 | XMS_ITS | Encounter Summary ---
Author Organization [facility] Address [address] [place] [address] Care Team Providers Care Front End Architect Name Role Phone Petra Wiley Primary Care Provider [phone] Reason for Referral * Surgical (Routine) - Pending Review Specialty Diagnoses / Procedures Referred By Mehreen linares Referred To Contact General Surgery Diagnoses Subcutaneous mass of right upper extremity Subcutaneous mass of abdominal wall [facility] Physician Referral [facility] [address] [place] [address] [facility] [address] [place] [address] Phone: tel: fax: Referral ID Status Reason Start Date Expiration Date Visits Requested Visits Authorized [id number] Pending Review Specialty Services Required 06/26/2024 12/26/2025 6 6 Encounter Details Date Type Department Care Team (Latest Contact Info) Description 06/26/2024 Transcribe Orders [facility] Physician Referral Services [address] [place] [address] Petra Wiley 230 [place] [address] Subcutaneous mass of right upper extremity (Primary [...] Description 11/02/2024 2:20 PM EDT Office Visit [facility] [address] [place] [address] World Geography Teacher: Newton Rangel DO [address] [facility] [place] [address] 02/09/2025 10:15 AM EDT Office Visit [facility] 4th Floor [address] [facility], [place] [address] World Geography Teacher: Hipolito Lei MD [address] [place] [address] Scheduled Referrals Name Type Priority Associated Diagnoses Order Schedule Ambulatory referral to General Surgery Outpatient Referral Routine Subcutaneous mass of right upper extremity Subcutaneous mass of abdominal wall Expected: 06/26/2024, Expires: 12/24/2024 documented as of this encounter Visit Diagnoses Diagnosis Subcutaneous mass of right upper extremity- Primary Subcutaneous mass of abdominal wall documented in this encounter Care Teams Front End Architect Relationship Specialty Start Date End Date Petra Wiley [address] [place] [address] PCP - General Family Medicine 03/19/24 documented as of this encounter
--- OUTSIDE RECORDS SUMMARY | 2024-10-06 15:36 | XMS_ITS | Encounter Summary ---
Author Organization [employer] Address [address] [facility] 7t [place] [address] Care Team Providers Care Gritting Machine Operator Name Role Phone Petra Wiley GROUNDS CLEANER Primary Care Provider Willard Waters Unavailable [phone] KesslerSeptember Unavailable Juan Sandra MD Unavailable [phone] Brigid Guy NP Unavailable Vicente Mooney MD Unavailable Beth Rai MD Unavailable Michell Espinoza Unavailable Reason for Visit * Reason Onset Date Comments Results 10/06/2024 Encounter Details Date Type Department Care Team ([facility] st Contact Info) Description 10/06/2024 Telephone [facility] MED [facility] PEDS [address] [place], [place] [phone] Sylvia Lemons MD [address] [place], [place] [phone] Results Social History Tobacco Use Types Packs/Day [...] to pt. No answer. Voicemail left with client care representative. ----- Message from Sylvia Lemons MD sent at 10/06/2024 2:08 PM EDT ----- Please notify pt that her Hg is once again below 10,, she should resume iron supplementation. Ty! Cristo covering for Isaiasen documented in this encounter Plan of Treatment Upcoming Encounters Date Type Department Care Team (Late st Contact Info) Description 10/27/2024 2:30 PM EDT Office Visit [facility] ADULT DENTAL [address] [place] [address] David Barretovendra DDS [address] [place] [address] 11/04/2024 11:15 AM EDT Office Visit [facility] MEDICINE [address] [place] [address] Petra Wiley FNP [address] [place] [address] 11/25/2024 9:15 AM EDT Office Visit [facility] MED[facility]INE [address] [place] [address] Petra Wiley FNP [address] [place] [address] 01/18/2025 3:00 PM EDT Office Visit [facility] AD[facility] 505 [place] [address] Sanaz Nelson documented as of this encounter Visit Diagnoses Not on filedocumented in this encounter Additional Health Concerns Assessment Noted Time PHQ-9 Depression Total Score: 13 03/16/ 024 3:11 PM EDT documented as of this encounter Care Teams Gritting Machine Operator Relationship Specialty Start Date End Date Petra Wiley FNP [address] [place] [address] PCP - General Family Medicine 03/17/24 Willard Waters [address] [place] [address] Rheumatology 05/17/24September [address] [place] [address] 3rd [place] [address] Gastroenterology 05/17/24 Juan Sandra MD [address] [place] [address] Hematology and Oncology 05/17/24 Brigid Guy NP [address] [place] [address] Urology 05/17/24 Vicente Mooney MD [address] [place] [address] [address] [place] [address] Obstetrics and Gynecology 05/17/24 Beth Rai MD [address] [place] [address] Dr Rangel [address] [place] [address] Neurology 05/17/24 Michell Espinoza [address] 3rd [place] [address] Cardiology 05/17/24 Shelia Zheng Prop And Scenery MakerPractice Architect 09/26/23 documented as of this encounter
--- OUTSIDE RECORDS SUMMARY | 2024-10-06 15:36 | XMS_ITS | Encounter Summary ---
Author Organization [employer] Address [address] [facility] 7t [place] [address] Care Team Providers Care Mechanical Supervisor Name Role Phone Petra Wiley CORN PRESS OPERATOR Primary Care Provider [phone] Willard Waters Unavailable [phone] September Unavailable Juan Sandra MD Unavailable [phone] Brigid Guy NP Unavailable Vicente Mooney [...] resume iron supplementation. Ty! Cristo covering for Saurabh documented in this encounter Plan of Treatment Upcoming Encounters Date Type Department Care Team (Late st Contact Info) Description 10/27/2024 2:30 PM EDT Office Visit [facility] ADULT DENTAL [address] [place] [address] Venkat Barreto DDS [address] [place] [address] 11/04/2024 11:15 AM EDT Office Visit [facility] MEDICINE [address] [place] [address] Petra Wiley FNP [address] [place] [address] 11/25/2024 9:15 AM EDT Office Visit [facility] MED[facility] [address] [place] [address] Petra Wiley, CORN PRESS OPERATOR [address] [place], [place] [phone] 01/18/2025 3:00 PM EDT Office Visit [facility] ADULT DENTAL [address] [place], [place] [phone] Sanaz Nelson documented as of this encounter Procedures Procedure Name Priority Date/Time Associated Diagnosis Comments TSH W/REFLEX TO FT4 Routine 10/06/2024 1 :05 PM EDT CBC Routine 10/06/2024 1:05 PM EDT HCG, TOTAL, QN Routine 10/06/2024 1:05 PM EDT documented in this encounter Results * hCG, Total, Quantitative (10/06/2024 1:05 PM EDT) HCG Quantitative <2 mIU/mL [facility] Comment:Weeks post LMP Appro ximate hCG(Last Menstrual Period) Range (mIU/ml)3 - 4 weeks 9 - 1304 - 5 weeks 75 - 2,6005 - 6 weeks 850 - 20,8006 - 7 weeks 4000 - 100,2007 - 12 weeks 11,500 - 289,32044 - 16 weeks 18,300 - 137,40261 - 29 weeks (2nd trimester) 1,400 - 53,15183 - 41 weeks (3rd trimester) 940 - [...] Provider LAB BLOOD ORDERAB LES Final Result [facility] [address] [place] [address] [phone] * TSH with Reflex to Free T4 (10/06/2024 1:05 PM EDT) TSH reflex Free T4 1.37 0.32 - 4.0 uIU/mL [facility] 10/06/2024 1:05 PM EDT 10/06/2024 1:05 PM EDT us Generic External Data Provider LAB BLOOD ORDERAB LES Final Result [facility] [address] [place] [address] [phone] * (ABNORMAL) CBC (10/06/2024 1:05 PM EDT) Pathologist [facility] White Blood Count 7.4 4.8 - 10.8 X10*3/uL [facility] Red Blood Count 4.01(L) 4.20 - 5.50 X10*6/uL [facility] Hemoglobin 9.7(L) 12.0 - 16.0 g/dl [facility] Hematocrit 31.2(L) 37.0 - 47.0 % [facility] Mean Corpuscular Volume 77.8(L) 80.0 - 98.0 fL [facility] Mean Corpuscular Hemoglobin 24.2(L) 27.0 - 33.0 pg [facility] Mean Corpuscular HGB Conc 31.1 31.0 - 35.0 g/dl [facility] Red Cell Distribution Width 15.6 11.0 - 16.0 % [facility] Platelet Count 327 160 - 400 X10*3/uL [facility] Mean Platelet Volume 10.9 9.4 - 12.3 fL [facility] NRBC Pct Auto 0.0 0.0 - 0.2 /100WBC [facility] NRBC Abs Auto 0.000 0.0 - 0.012 X10*3/uL [facility] 10/06/2024 1:05 PM EDT 10/06/2024 1:05 PM EDT us Generic External Data Provider LAB BLOOD ORDERAB LES Final Result [facility] [address] [place] [address] [phone] documented in this encounter Visit Diagnoses Not on filedocumented in this encounter Additional Health Concerns Assessment Noted Time PHQ-9 Depression Total Score: 13 024 3:11 PM EDT documented as of this encounter Care Teams Mechanical Supervisor Relationship Specialty Start Date End Date Petra Wiley FNP [address] [place] [address] PCP - General Family Medicine 03/17/24 Willard Waters [address] [place] [address] [address] [place], [place] Rheumatology 05/17/24September [address] 3rd [place] [address] Gastroenterology 05/17/24 Juan Sandra MD [address] [place] [address] Hematology and Oncology 05/17/24 Brigid Guy NP [address] [place] [address] Urology 05/17/24 Vicente Mooney MD [address] [place] [address] [address] [place] [address] Obstetrics and Gynecology 05/17/24 Beth Rai MD [address] [place] [address] [address] [place] [address] Neurology 05/17/24 Michell Espinoza [address] [place] [address] 3rd [place] [address] Cardiology 05/17/24 Shelia Zheng Director HeartPump Service Supervisor 09/26/23 documented as of this encounter
--- OUTSIDE RECORDS SUMMARY | 2024-10-06 15:36 | XMS_ITS | Clinical Summary ---
Author Organization [employer] Address [address] [facility] 7t [place] [address] Care Team Providers Care Lehr Operator Name Role Phone Petra Wiley BREWERY PUMPER Primary Care Provider Willard Waters Unavailable [phone] Unavailable Juan Sandra MD Unavailable [phone] Brigid Guy NP Unavailable Vicente Mooney [...] MINDA VECES AL D A Active Creon [id number] units capsule delayed-release particles capsule TOME ADRY [...] Palpitations 05/17/2024 Overview (05/17/2024): Followed by [facility] Cards Continues on Propranolol 20mg BID (through Cards) Class 1 obesity with body ma ss index (BMI) of 32.0 to 32.9 in adult 05/17/2024 Assessment & Plan (07/29/2024 4:08 PM EST): - Cont following with product lead and healthy lifestyle interventions Assessment & Plan [...] of medullary thyroid cancer or MEN 2. Independent Crop Consultant referral offered. Recommended to decrease soda and [...] easily 03/17/2024 Overview (03/17/2024): Followed by [facility] Heme/Onc - Dr. Sandra [...] HCT 36.5 (L) 03/18/2024 Following with [facility] Heme/Onc - [...] bleeding 12/27/2023 Overview (07/29/2024): Following with [facility] CONGRESSIONAL ASSISTANT - Dr. Mooney EMB performed 04/14/24. Path: [...] Overview (05/17/2024): Lab Results Component Value Date [id number] 19.9 (L) 03/18/2024 [id number] 19 (A) 05/08/2023 - Cont Vit D [...] Overview (05/17/2024): Pap NIL/HPV Neg 11/12/2019 Dental: [facility] Dental Last PE: 06/03/23 Hep B Immune: Mar 2024 Gastroesophageal reflux disease without esophagi tis 06/03/2023 Overview (06/03/2023): ?? Followed by [facility] GI Varghese Kessler CNC MACHINIST 2ND SHIFT ?? Continues famotidine and Dexliant through GI Irritable bowel syndrome with constipation 06/03 Overview (03/17/2024): Followed up [facility] YASSINE Kessler CNC MACHINIST 2ND SHIFT Continues Bentyl TID Continues Bisacodyl 10mg nightly Dysphagia, oropharyngeal phase 06/03/2023 Overview (06/03/2023): ?? Followed by [facility] YASSINE Kessler APRN Gastroparesis 06/03/2023 Overview (03/17/2024): Followed by [facility] GI Continues with the following medication regimen for multiple GI symptoms and conditions: Creon, famotidine, psyllium, dicyclomine, simethicone, and Dexliant Previous medications: carafate NURIA positive 06/03/2023 Overview (07/29/2024): Previous followed by [facility] Rheum - Dr. Waters May 2024: Established with [facility] Rheum - Dr. Street NURIA positive 2019: 1:160, anti dna, nicholas, ESR, CRP all wnl Disorder of sesamoid bone of foot 06/03/2023 Overview (06/03/2023): -Left lateral sesamoid stress fx identified Jul 2022 at [facility] -Plan for immobilization in short walking boot and follow up 6 weeks Assessment & Plan (06/03/2023 10:28 PM EST): Plan to request latest records from [facility] and follow up with PCP to discuss eligibility handicap placard. Fibromyalgia 08/02/2022 Overview (07/29/2024): -Previously: Lyrica 75mg nightly through [facility] Physiatry/Rheum -Lyrica [...] Type Department Care Team Description 10/06/2024 Telephone [facility] MED & PEDS [address] [place] [address] Sylvia Lemons MD Results 10/06/2024 Orders Only GENERIC EXTERNAL DATA DEPARTMENT Provider, Generic External Data 09/27/2024 Refill [facility] WALK-IN CENTER [address] [place] [address] Petra Wiley FNP Vitamin D insufficiency 09/15/2024 Refill [facility] MED & PEDS [address] [place] [address] Jennie Murray MD 09/11/2024 2:00 PM EDT Office Visit [facility] ADULT DENTAL [address] [place] [address] Venkat Barreto DDS 09/08/2024 3:00 PM EDT Clinical Support [facility] DIABETES/NUTRITION [address] [place] [address] Class 2 obesity with body mass index (BMI) of 35.0 to 35.9 in adult, unspecified obesity type, unspecified whether serious comorbidity present; Class 1 obesity with body mass index (BMI) of 32.0 to 32.9 in adult, unspecified obesity type, unspecified whether serious comorbidity present 09/08/2024 Travel 09/07/2024 Orders Only [facility] CH[facility] MED & PEDS [address] [place] [address] Petra Wiley FNP 09/07/2024 Travel 09/07/2024 Telephone [facility] MEDICINE [address] [place] [address] Petra Wiley FNP August08/28/2024 Population Health Risk Score [facility] () Department [address] [place] [phone] Provider, Population Health Generic 08/18/2024 1:30 PM EST Office Visit [facility] ADULT DENTAL [address] [place] [address] Venkat Barreto, DDS Erythromelalgia (CMS/HCC) (Primary Dx); Polyarthralgia 08/17/2024 Orders Only GENERIC EXTERNAL DATA DEPARTMENT Provider, Generic External Data 08/17/2024 Telephone [facility] MEDICINE [address] [place] [address] Petra Wiley FNP Referral 08/14/2024 1:30 PM EST Clinical Support [facility] DIABETES/NUTRITION [address] [place] [address] BMI 35.0-35.9,adult (Primary Dx) 08/14/2024 Travel 08/11/2024 Orders Only GENERIC EXTERNAL DATA DEPARTMENT Provider, Generic External Data 08/04/2024 2:30 PM EST Office Visit [facility] OPTOMETRY [address] [place] [address] Waqas, Cristine, OD Hordeolum internum of left lower eyelid (Primary Dx); Dry eyes, bilateral; White without pressure of peripheral retina of both eyes; Hyperopia of right eye 08/04/2024 Travel 07/31/2024 Telephone [facility] MEDICINE [address] [place] [address] Petra Wiley FNP Patient request 07/29/2024 10:30 AM EST Office Visit [address] [address] Petra Wiley FNP Asthma, unspecified asthma severity, [...] Travel 07/28/2024 1:30 PM EST Clinical Support [facility] DIABETES/NUTRITION [address] [place] [address] BMI 35.0-35.9,adult (Primary Dx) 07/28/2024 Telephone [facility] MED & PEDS [address] [place] [address] Shireen Eagle MA Chart Prep 07/28/2024 Travel 07/24/2024 2:30 PM EST Office Visit [facility] ADULT DENTAL [address] [place] [address] Venkat Barreto DDS 07/24/2024 2:00 PM EST Office Visit [facility] WALK-IN CENTER [address] [place] [address] Sylvia Lemons MD Hordeolum externum of left lower eyelid (Primary Dx) 07/20/2024 3:00 PM EST Office Visit [facility] ADULT DENTAL [address] [place] [address] Sanaz Nelson 07/20/2024 2:00 PM EST Clinical Support [facility] DIABETES/NUTRITION [address] [place] [address] Tamanna Mcintyre, RD BMI 35.0-35.9,adult (Primary Dx) 07/20/2024 Travel 07/12/2024 Refill [facility] CHC MED & PEDS [address] [place] [address] Petra Wiley, BREWERY PUMPER Seasonal allergies 07/10/2024 2:00 PM EST Nutrition [facility] DIABETES/NUTRITION [address] [place] [address] Tamanna Mcintyre, RD Body mass index (BMI) of 35.0 to 35.9 in adult (Primary Dx) 07/10/2024 1:00 PM EST Office Visit [facility] ADULT DENTAL [address] [place] [address] Venkat Barreto, DDS 07/10/2024 Travel from Last [...] Description 10/27/2024 2:30 PM EDT Office Visit [facility] ADULT DENTAL [address] [place] [address] Venkat Barreto DDS [address] [place] [address] 11/04/2024 11:15 AM EDT Office Visit [facility] MEDICINE [address] [place] [address] Petra Wiley, BREWERY PUMPER [address] [place] [address] 11/25/2024 9:15 AM EDT Office Visit [facility] MEDICINE [address] [place] [address] Petra Wiley, BREWERY PUMPER [address] [place], [place] [phone] 01/18/2025 3:00 PM EDT Office Visit [facility] CHC ADULT DENTAL [address] [place], [place] [address] Sanaz Nelson Health Maintenance Due Date Last [...] Free T4 (10/06/2024 1:05 PM EDT) Pathologist [facility] TSH reflex Free T4 1.37 0.32 - 4.0 uIU/mL [facility] 10/06/2024 1:05 PM EDT 10/06/2024 1:05 PM EDT us Generic External Data Provider LAB BLOOD ORDERAB LES Final Result Performing Organization Address City/State/[facility] Co de Phone Number [facility] [address] [place] [phone] * (ABNORMAL) CBC (10/06/2024 1:05 PM EDT) Pathologist [facility] White Blood Count 7.4 4.8 - 10.8 [...] 1:05 PM EDT 10/06/2024 1:05 PM EDT Generic External Data Provider LAB BLOOD ORDERAB LES Final Result Performing Organization Address [facility]/ZIP Co de Phone Number [facility] [address] [place] [phone] * hCG, Total, Quantitative (10/06/2024 1:05 PM EDT) HCG Quantitative <2 mIU/mL [facility] Comment:Weeks post LMP Appr oximate hCG(Last Menstrual Period) Range (mIU/ml)3 - 4 weeks 9 - 1304 - 5 weeks 75 - 2,6005 - 6 weeks 850 - 20,8006 - 7 weeks 4000 - 100,2007 - 12 weeks 11,500 - 289,91670 - 16 weeks 18,300 - 137,16864 - 29 weeks (2nd trimester) 1,400 - 53,51194 - 41 weeks (3rd trimester) 940 - 60,000[place] B- hCG assay is used for the early detection ofpregnancy; it cannot be used to diagnose any conditionunrelated to . If a B-hCG level is not supportedby the clinical evidence, results should be confirmed by analternative method (qualitative urine hCG, for example). 10/06/2024 1:05 PM EDT 10/06/2024 1:05 PM EDT Generic External Data Provider LAB BLOOD ORDERAB LES Final Result Performing Organization Address [facility]/ZIP Co de Phone Number [facility] [address] [place] [phone] * BI US Breast Limited Right (09/01/2024 12:30 PM EDT) Anatomical Region Laterality Modality Breast Right Ultrasound 09/01/2024 12:3 0 PM EDT Narrative 09/01/2024 3:58 PM EDT ? [facility] ? [address] [place] [address] ? Ultrasound Report ? Signed ? Patient: Ambika Mcdermott ?MR#: [id number] ?? [id number] ? : 1985 ?Acct:[id number] ? Age/Sex: 39 / F ?ADM Date: 09/01/24 ? Loc: HO.MAMMO ? Attending Dr: Petra LUCERO ? Ordering Physician: Petra Wiley ?? Date of Service: 09/01/24 ?? Procedure(s): US breast RT limited ?? Accession Number(s): [id number] ? cc: Petra Wiley ? EXAMINATION: ?? [...] DD/ 1230 ? TD/TT: 09/01/24 1332 ? Slitter And Rewinder Machine Operator: ? Procedure Note Fletcheremmabonnielenny, Image - 09/01/2024 [place] [facility] [address] [place] [address] Ultrasound Report Signed Patient: Ambika Mcdermott#: [id number] : 1985Acct:[id number] Age/Sex: 39 / FADM Date: 09/01/24 Loc: HO.MAMMO Attending Dr: Petra Wiley BREWERY PUMPER Ordering Physician: Petra Wiley Date of Service: 09/01/24 Procedure(s): US breast RT limited Accession Number(s): [id number] cc: Petra Wiley EXAMINATION: MM DIAGNOSTIC DIGITAL [...] 09/01/24 1555 DD/ 1230 TD/TT: 09/01/24 1332 Slitter And Rewinder Machine Operator: us Petra Wiley BREWERY PUMPER IMG US PROCEDURES Final Result * BI Mammogram Diagnostic Tomosynthesis Bilateral (09/01/2024 12:30 PM EDT) Anatomical Region Laterality Modality Breast Bilateral Mammography 09/01/2024 12:3 0 PM EDT Narrative 09/01/2024 3:58 PM EDT ? [facility] ? [address] ?[place] [address] ? Mammography Report ? Signed ? Patient: Lowell Anaya,Ambika ?MR#: [id number] ?? [id number] ? : 1985 ?Acct:[id number] ? Age/Sex: 39 / F ?ADM Date: 09/01/24 ? Loc: HO.MAMMO ? Attending Dr: Petra Wiley BREWERY PUMPER ? Ordering Physician: Petra Wiley BREWERY PUMPER ?Results: 3.6MPr ?? obably Benign Finding - Short 6 M F/U Suggested ? Date of Service: 09/01/24 ?Follow Up: 6 Month F/U ? Procedure(s): MM tomosynthesis diagnostic BI ?? Accession Number(s): [id number] ? cc: Petra Wiley BREWERY PUMPER ? EXAMINATION: ?? MM DIAGNOSTIC DIGITAL BREAST [...] DO in OV> ? 09/01/24 1555 ? DD/DT: 09/01/ 1230 ? TD/TT: 09/01/24 1332 ? Slitter And Rewinder Machine Operator: ? Procedure Note Donotuseinterpreter, Image - 09/01/2024 [place] [facility] [address] [place], [place] [address] Mammography Report Signed Patient: Ambika McdermottMR#: [id number] : 1985Acct:[id number] Age/Sex: 39 / FADM Date: 09/01/24 Loc: HO.MAMMO Attending Dr: Petra Wiley BREWERY PUMPER Ordering Physician: Petra Wiley FNPResults: 3.6MPr obably Benign Finding - Short 6 M F/U Suggested Date of Service: 09/01/24Follow Up: 6 Month F/U Procedure(s): MM tomosynthesis diagnostic BI Accession Number(s): [id number] cc: Petra Wiley BREWERY PUMPER EXAMINATION: MM DIAGNOSTIC DIGITAL BREAST TOMOSYNTHESIS, BILATERAL [...] 09/01/24 1555 DD/ 1230 TD/TT: 09/01/24 1332 Slitter And Rewinder Machine Operator: us Petra Wiley BREWERY PUMPER IMG BI PROCEDURES Final Result * Urinalysis w/reflex microscopic (08/17/2024 2:00 PM EST) Color Urine Yellow [facility] Appearance Urine Clear [facility] PH 5.5 5.0 - 9.0 [facility] Glucose Urine UA Negative Negative mg/dL [facility] Urine Blood Negative Negative [facility] Specific [place] - Urine 1.010 1.005 - 1.025 [facility] Urine Protein Negative Neg-Trace mg/dL [facility] Urine Ketones Negative Negative mg/dL [facility] Nitrite Urine Negative Negative [facility] Leukocyte Esterase Urine Negative Negative [facility] 08/17/2024 2:00 PM EST 08/17/2024 2:25 PM EST Narrative [facility] - 08/17/2024 2:36 PM EST Urine, Clean Catch us Generic External Data Provider LAB URINE ORDERAB LES Final Result [facility] [address] [place] [phone] [phone] * Culture, Urine, Routine (08/11/2024 2:36 [...] GENERAL ORDERABLES Final Result Performing Organization Address [facility]/ZIP Co de Phone Number [facility] [address] [place] [phone] * Hepatitis C Viral RNA, Quantitative, Real-Time PCR (03/18/2024 2:05 PM EDT) Hepatitis C Viral Load <15 NOT DETECTED NOT DETECTED IU/mL [facility] HCV Log PCR <1.18 NOT DETECTED NOT DETECTED Log IU/mL [facility] Comment:For additional infor felton, please refer tohttp://education.[employer]/faq/JPQ76a9(This link is being provided for informational/educational purposes only.)THIS TEST WAS PERFORMED AT:[facility] [place] [id number] DEL CID MD Blood 03/18/2024 2:05 PM EDT 03/18/2024 2:05 PM EDT us Petra Wiley BREWERY PUMPER LAB BLOOD ORDERABLES Final Res ult Performing Organization Address [facility]/ZIP Co de Phone Number [facility] [address] [place] [phone] * HIV-1/2 Antigen and Antibodies, Fourth Generation, with Reflexes (03/18/2024 2:05 PM EDT) HIV AB/AG Nonreactive Nonreactive [facility] Comment:HIV-1 p24 Ag and/or HIV-1/HIV-2 Ab not detected.A test result that is nonreactive does not exclude thepossibility of exposure to or infection with HIV-1 and/orHIV-2. Nonreactive results in this assay for individualswith prior exposure to HIV-1 and/or HIV-2 may be due toantigen and antibody levels that are below the limit ofdetection of this assay.The [employer] Call HIV Ag/Ab Combo assay result andsupplemental assay results should be interpreted inconjunction with the patient's clinical presentation,history and other laboratory results. If the results areinconsistent with clinical evidence, additional testing issuggested to confirm the result. Blood Venous blood specimen / Unknown 03/18/2024 2:05 PM EDT 03/18/2024 2:05 PM EDT us Petra Wiley BREWERY PUMPER LAB BLOOD ORDERABLES Final Res ult [facility] [address] [place] [phone] * (ABNORMAL) Lipid Panel, Standard (03/18/2024 2:05 PM EDT) Triglycerides 100 <150 mg/dL [facility] Comment:Desirable Triglyceri de: less than [...] 190 mg/dL HDL Cholesterol 52 >40 mg/dL [facility] Comment:Desirable HDL: great er than 40 mg/dL Note: This HDL assay may give artificially low results in patients with liver disease. Blood Venous blood specimen / Unknown 03/18/2024 2:05 PM EDT 03/18/2024 2:05 PM EDT Petra Wiley BREWERY PUMPER LAB BLOOD ORDERABLES Final Res ult [facility] [address] [place] [address] [phone] * Pap Smear (11/12/2019 12:00 AM EDT) Swab Historical Provider MD LAB CYTOLOGY ORDERABLES F inal Result EXTERNAL LAB from Last 3 Months or Most Recently Relevant to Health Maintenance Insurance [facility] C3 DENTAL-[facility] MEDICAID STAND ADULT Care Teams Lehr Operator Relationship Specialty Start Date End Date Petra Wiley FNP [address] [place] [address] PCP - General Family Medicine 03/17/24 Willard Waters [address] [place] [address] Rheumatology 05/17/24KesslerSeptember [address] [facility] 3rd [place] [address] Gastroenterology 05/17/24 Juan Sandra MD [address] [place] [address] Hematology and Oncology 05/17/24 Brigid Guy, YAIMA [address] [place] [address] Urology 05/17/24 Vicente Mooney MD [address] [place] [address] [address] [place] [address] Obstetrics and Gynecology 05/17/24 Beth Rai MD [address] [place] [address] Neurology 05/17/24 Michell Espinoza [address] 3rd [place] [address] Cardiology 05/17/24 Shelia hZeng Load Out WorkerWindow Cutter 09/26/23
--- OUTSIDE RECORDS SUMMARY | 2024-10-06 15:36 | XMS_ITS | Referral Summary ---
Author Organization [facility] Address [address] [place] [address] Care Team Providers Care Bible Worker Name Role Phone Petra Wiley Primary Care Provider [phone] Encounters Date Type Department Care Team Description 08/06/2024 Telephone [facility] [address] [place] [address], [place] [phone] Bicycle Repairer: Khadra Westbrook Telephone Intake, Staff PAC Appt Request - New 08/01/2024 Results Follow-Up [facility] [address] [place] [address] Bicycle Repairer: Newton Rangel DO 07/22/2024 12:00 PM EST Office Visit [facility] Rhe[facility] [address] [place] [address] Bicycle Repairer: Newton Rnagel DO Erythromelalgia (Primary Dx); Polyarthralgia from Last [...] Description 11/02/2024 2:20 PM EDT Office Visit [facility] [address] [place] [address] Bicycle Repairer: Newton Rangel DO [address] [facility] [place] [address] 02/09/2025 10:15 AM EDT Office Visit [facility] [address] [place] [address], [place] [phone] Bicycle Repairer: Hipolito Lei MD [address] [place] [address] Procedures * Due to [place] state law, this organization might not be sharing negative HIV tests. Procedure Name Priority Date/Time Associated Diagnosis Comments SEDIMENTATION RATE, AUTOMATED Routine 07/22/2024 1:56 PM EST Polyarthralgia PROTEIN ELECTROPHORESIS W/REFLEX TO IMMUNOFIXATION, SERUM Routine 07/22/2024 1:56 PM EST Polyarthralgia from Last 3 Months Results * Due to [place] [employer] law, this organization might not be sharing negative HIV tests. * Protein Electrophoresis w/Reflex to Immunofixation, Serum (07/22/2024 1:56 PM EST) Protein, Total 8.1 6.1 - 8.1 g/dL 07/28/2024 7:22 AM EST [facility] Albumin 4.8 3.8 - 4.8 g/dL 07/28/2024 7:22 AM EST [facility] Alpha 1 Globulin 0.3 0.2 - 0.3 g/dL 07/28/2024 7:22 AM EST [facility] Alpha 2 Globulin 0.7 0.5 - 0.9 g/dL 07/28/2024 7:22 AM EST [facility] Beta 1 Globulin 0.6 0.4 - 0.6 g/dL 07/28/2024 7:22 AM EST [facility] Beta 2 Globulin 0.5 0.2 - 0.5 g/dL 07/28/2024 7:22 AM EST [facility] Gamma Globulin 1.2 0.8 - 1.7 g/dL 07/28/2024 7:22 AM EST [facility] Interpretation See Comments 07/28/2024 7:22 AM EST [facility] Comment: Normal Serum Protein Electrophoresis Pattern. No abnormal protein bands (M-protein) detected. Blood Structure of peripheral vein / Unknown Venipuncture / Unknown 07/22/2024 1:56 PM EST 07/22/2024 2:37 PM EST Narrative [facility] - 07/28/2024 7:22 AM EST [facility] Received Date: Newton Yenifer DO LAB BLOOD ORDERABLES Final Res ult [address]rd Floor, [place] [address], [place] [phone] [facility] [address], [place] [address], [place] [phone] * (ABNORMAL) Sedimentation Rate (07/22/2024 1:56 PM EST) Sed Rate 29(H) <20 mm/Hr mm/Hr 07/22/2024 2:52 PM EST [facility]Y [facility] Blood Structure of peripheral vein / Unknown Venipuncture / Unknown 07/22/2024 1:56 PM EST 07/22/2024 2:37 PM EST Unified Color DO LAB BLOOD ORDERABLES Final Res ult [facility] [address] [place] [address], [place] from [place] [address] [place] [id number] [facility] Care Teams Bible Worker Relationship Specialty Start Date End Date Petra Wiley [address] [place] [phone] PCP - General Family Medicine 03/19/24
--- OUTSIDE RECORDS SUMMARY | 2024-10-06 15:36 | XMS_ITS | Encounter Summary ---
Author Organization [employer] Address [address] [facility] 7t [place] [address] Care Team Providers Care Lab Rep Name Role Phone Jennie Murray MD Primary Care Provider [phone] Petra Wiley Primary Care Provider [phone] Willard Waters Unavailable [phone] Victoria September Unavailable Juan Sandra MD Unavailable [phone] Brigid Guy NP Unavailable Vicente Mooney [...] (Late st Contact Info) Description 08/21/[address] [facility] ADULT DENTAL [address] [place] [address] Venkat Barreto DDS [address] [place] [address] Appointment (Ambika Anaya 1985 Patient [...] Description 10/27/2024 2:30 PM EDT Office Visit [facility] ADULT DENTAL [address] [place] [address] Venkat Barreto DDS [address] [place] [address] 11/04/2024 11:15 AM EDT Office Visit [facility] MEDICINE [address] [place] [address] Petra Wiley FNP [address] [place] [address] 11/25/2024 9:15 AM EDT Office Visit [facility] MEDIC[facility] [address] [place] [address] Petra Wiley FNP [address] [place] [address] 01/18/2025 3:00 PM EDT Office Visit [facility] ADULT DENTAL [address] [place] [address] Sanaz Nelson documented as of this encounter Visit Diagnoses Not on filedocumented in this encounter Additional Health Concerns Assessment Noted Time PHQ-9 Depression Total Score: 0 07/04/19 23 3:01 PM EST documented as of this encounter Care Teams Lab Rep Relationship Specialty Start Date End Date Jennie Murray MD [address] [place] [address] PCP - General Family Medicine 06/23/13 03/16/24 Petra Wiley FNP [address] [place] [address] PCP - General Family Medicine 03/17/24 Willard Waters [address] [place] [address] Rheumatology 05/17/24 Victoria Sumaya [address] 3rd [place] [address] Gastroenterology 05/17/24 Juan Sandra MD [address] [place] [address] Hematology and Oncology 05/17/24 Brigid Guy NP [address] [place] [address] Urology 05/17/24 Vicente Mooney MD [address] [place] [address] [address] [place] [address] Obstetrics and Gynecology 05/17/24 Beth Rai MD [address] [place] [address] [place] [address] Neurology 05/17/24 Michell Espinoza [address] [place] [address] 3rd [place] [address] Cardiology 05/17/24 Shelia Zheng Hot DipperNetwork Lead 09/26/23 documented as of this encounter
== END 2024-10-06 14:29 | disposition home or self-care (01) ==
LOC: HO.HWS 13:10
PROVIDERS: PCP Registered Nurse; Visit Provider Obstetrics & Gynecology
DX: N93.9 Abnormal uterine and vaginal bleeding, unspecified (principal); Z32.02 Encounter for pregnancy test, result negative; Z30.430 Encounter for insertion of intrauterine contraceptive device
CPT/HCPCS: 58100; 58300; 99214

== ENCOUNTER 2024-10-06 15:07 | Outpatient (REF) | payer MEDICAID, SELFPAY ==
--- OUTSIDE RECORDS SUMMARY | 2024-10-06 18:04 | XMS_ITS | Encounter Summary ---
Author Organization [employer] Address [address] [facility] 7t [place] [address] Care Team Providers Care Light Industrial Supervisor Name Role Phone Jennie Murray MD Primary Care Provider Petra Wiley Primary Care Provider Willard Waters Unavailable [phone] Kessler, September Unavailable Juan Sandra MD Unavailable [phone] Brigid Guy NP Unavailable Vicente Mooney MD Unavailable Beth Rai MD Unavailable [phone] Michell Espinoza Unavailable Reason for Visit * Reason Onset Date Comments Appointment Request 12/25/2023 Encounter Details Date Type Department Care Team (Late st Contact Info) Description 12/25/2023 Telephone [facility] [address] [place], [place] [phone] Jennie Murray MD [address] [place], [place] [phone] Appointment Request Social History Tobacco Use Types [...] 12/25/2023 1:07 PM EDT Tc from Patrice, residential care officer with [facility], calling to schedule appt for pt. Pt is awaiting transfer pt appt with Dr. Wiley in which process description writer attempted to schedule but found no availability. Please contact Patrice at [phone]. documented in this encounter Plan of Treatment Upcoming Encounters Date Type Department Care Team (Late st Contact Info) Description 10/27/2024 2:30 PM EDT Office Visit [facility] ADULT DENTAL [address] [place] [address] Venkat Barreto DDS [address] [place] [address] 11/04/2024 11:15 AM EDT Office Visit [facility] [address] [place], [place] [phone] Petra Wiley FNP [address] [place] [address] 11/25/2024 9:15 AM EDT Office Visit [facility] [address] [place] [address] Petra Wiley FNP [address] [place] [address] 01/18/2025 3:00 PM EDT Office Visit [facility] ADULT DENTAL 505 [place] [address] Sanaz Nelson documented as of this encounter Visit Diagnoses Not on filedocumented in this encounter Additional Health Concerns Assessment Noted Time PHQ-9 Depression Total Score: 0 07/04/19 23 3:01 PM EST documented as of this encounter Care Teams Light Industrial Supervisor Relationship Specialty Start Date End Date Jennie Murray MD 230 [place] [address] PCP - General Family Medicine 06/23/13 03/16/24 Petra Wiley FNP [address] [place] [address] PCP - General Family Medicine 03/17/24 Willard Waters [address] [place] [address] Rheumatology 05/17/[address] 3rd [place] [address] Gastroenterology 05/17/24 Juan Sandra MD [address] [place] [address] Hematology and Oncology 05/17/24 Brigid Guy NP [address] [place] [address] Urology 05/17/24 Vicente Mooney MD [address] [place] [address] [address] [place] [address] Obstetrics and Gynecology 05/17/24 Beth Rai MD [address] [place] [address] [place] [address] Neurology 05/17/24 Michell Espinoza [address] [place] [address] 3rd Floor [place] [address] Cardiology 05/17/24 Shelia Zheng Shipping AgentBelt And Link Assembly Supervisor 09/26/23 documented as of this encounter
--- OUTSIDE RECORDS SUMMARY | 2024-10-06 18:04 | XMS_ITS | Referral Summary ---
Author Organization [facility] Address [address] [place] [address] Care Team Providers Care Structural Drafter Name Role Phone Petra Wiley Primary Care Provider [phone] Encounters Date Type Department Care Team Description 08/06/2024 Telephone [facility] [address]th [address] [place] [address], [place] [phone] Alignment Mechanic: Khadra Westbrook Telephone Intake, Staff PAC Appt Request - New 08/01/2024 Results Follow-Up [facility] [address] [place] [address] Alignment Mechanic: Newton Rangel DO 07/22/2024 12:00 PM EST Office Visit [facility] [address] [place] [address] Alignment Mechanic: Newton Rangel DO Erythromelalgia (Primary Dx); Polyarthralgia [...] Description 11/02/2024 2:20 PM EDT Office Visit [facility] [address] [place] [address] Alignment Mechanic: Newton Rangel DO [address] [facility] [place] [address] 02/09/2025 10:15 AM EDT Office Visit [facility] 4th [address] [place] [address], [place] [address] Alignment Mechanic: Hipolito Lei MD [address] [place] [address] Procedures * Due to [place] state law, this organization might not be sharing negative HIV tests. Procedure Name Priority Date/Time Associated Diagnosis Comments SEDIMENTATION RATE, AUTOMATED Routine 07/22/2024 1:56 PM EST Polyarthralgia PROTEIN ELECTROPHORESIS W/REFLEX TO IMMUNOFIXATION, SERUM Routine 07/22/2024 1:56 PM EST Polyarthralgia from Last 3 Months Results * Due to [place] [employer] law, this organization might not be sharing negative HIV tests. * Protein Electrophoresis w/Reflex to Immunofixation, Serum (07/22/2024 1:56 PM EST) Protein, Total 8.1 6.1 - 8.1 g/dL 07/28/2024 7:22 AM EST [facility] Albumin 4.8 3.8 - 4.8 g/dL 07/28/2024 7:22 AM EST [facility] Alpha 1 Globulin 0.3 0.2 - 0.3 g/dL 07/28/2024 7:22 AM EST [facility] Alpha 2 Globulin 0.7 0.5 - 0.9 g/dL 07/28/2024 7:22 AM EST [facility] Beta 1 Globulin 0.6 0.4 - 0.6 g/dL 07/28/2024 7:22 AM EST [facility] Beta 2 Globulin 0.5 0.2 - 0.5 g/dL 07/28/2024 7:22 AM EST [facility] Gamma Globulin 1.2 0.8 - 1.7 g/dL 07/28/2024 7:22 AM EST [facility] Interpretation See Comments 07/28/2024 7:22 AM EST [facility] Comment: Normal Serum Protein Electrophoresis Pattern. No abnormal protein bands (M-protein) detected. Blood Structure of peripheral vein / Unknown Venipuncture / Unknown 07/22/2024 1:56 PM EST 07/22/2024 2:37 PM EST Narrative [facility] - 07/28/2024 7:22 AM EST [facility] Received Date: Newton Yenifer DO LAB BLOOD ORDERABLES Final Res ult [address] 3rd Floor, [place] [address], [place] [phone] [facility] [address], [place] [address], [place] [phone] * (ABNORMAL) Sedimentation Rate (07/22/2024 1:56 PM EST) Sed Rate 29(H) <20 mm/Hr mm/Hr 07/22/2024 2:52 PM EST [facility] Blood Structure of peripheral vein / Unknown Venipuncture / Unknown 07/22/2024 1:56 PM EST 07/22/2024 2:37 PM EST ChaCha DO LAB BLOOD ORDERABLES Final Res ult [facility] [address] [place] [address], [place] from [place] [address] [place] [address] [facility] Care Teams Structural Drafter Relationship Specialty Start Date End Date Petra Wiley [address] [place] [address] PCP - General Family Medicine 03/19/24
--- OUTSIDE RECORDS SUMMARY | 2024-10-06 18:04 | XMS_ITS | Encounter Summary ---
Author Organization [employer] Address [address] [facility] 7t [place] [address] Care Team Providers Care Horse Trekking Guide Name Role Phone Jennie Murray MD Primary Care Provider Petra Wiley Primary Care Provider [phone] Willard Waters Unavailable [phone] KesslerSeptember Unavailable Juan Sandra MD Unavailable [phone] Brigid Guy NP Unavailable Vicente Mooney MD Unavailable Beth Rai MD Unavailable Michell Espinoza Unavailable Encounter Details Date Type Department Care Team (Latest Contact Info) Description 09/03/2018 Abstract [facility] CONVERSIONS Dental, Provider, DDS Social History [...] Description 10/27/2024 2:30 PM EDT Office Visit [facility] ADULT DENTAL [address] [place], [place] [phone] Venkat Barreto DDS [address] [place], [place] [phone] 11/04/2024 11:15 AM EDT Office Visit [facility] MEDICINE [address] [place] [address] Petra Wiley FNP 505 [place] [address] 11/25/2024 9:15 AM EDT Office Visit [facility] MEDICINE [address] [place] [address] Petra Wiley FNP 505 [place] [address] 01/18/2025 3:00 PM EDT Office Visit [facility] ADULT DENTAL 505 [place] [address] Sanaz Nelson documented as of this encounter Visit Diagnoses Not on filedocumented in this encounter Care Teams Horse Trekking Guide Relationship Specialty Start Date End Date Jennie Murray MD 230 [place] [address] PCP - General Family Medicine 06/23/13 03/16/24 Petra Wiley FNP [address] [place] [address] PCP - General Family Medicine 03/17/24 Willard Waters [address] [place] [address] Rheumatology 05/17/24September [address] 3rd [place] [address] Gastroenterology 05/17/24 Juan Sandra MD [address] [place] [address] Hematology and Oncology 05/17/24 Brigid Guy NP [address] [place] [address] Urology 05/17/24 Vicente Mooney MD [address] [place] [address] [address] [place] [address] Obstetrics and Gynecology 05/17/24 Beth Rai MD [address] [place] [address] [place] [address] Neurology 05/17/24 Michell Espinoza [address] 3rd [place] [address] Cardiology 05/17/24 Shelia Zheng Chief Executive OfficerSenior Bi Developer 09/26/23 documented as of this encounter
--- OUTSIDE RECORDS SUMMARY | 2024-10-06 18:04 | XMS_ITS | Encounter Summary ---
Author Organization [employer] Address [address] [facility] 7t [place] [address] Care Team Providers Care Metallurgical Engineer Name Role Phone Petra iWley METAL FINISH INSPECTOR Primary Care Provider Willard Waters Unavailable [phone] KesslerSeptember Unavailable Juan Sandra MD Unavailable [phone] Brigid Guy NP Unavailable Vicente Mooney MD Unavailable Beth Rai MD Unavailable Michell Espinoza Unavailable Reason for Visit * Reason Onset Date Comments Results 10/06/2024 Encounter Details Date Type Department Care Team ([facility] st Contact Info) Description 10/06/2024 Telephone [facility] [address] [place], [place] [phone] Sylvia Lemons MD [address] [place], [place] [phone] Results Social History Tobacco Use Types Packs/Day [...] to pt. No answer. Voicemail left with liquid natural gas plant operator. ----- Message from Sylvia Lemons MD sent at 10/06/2024 2:08 PM EDT ----- Please notify pt that her Hg is once again below 10,, she should resume iron supplementation. Ty! Cristo covering for Isaiasen documented in this encounter Plan of Treatment Upcoming Encounters Date Type Department Care Team (Late st Contact Info) Description 10/27/2024 2:30 PM EDT Office Visit [facility] ADULT DENTAL [address] [place] [address] David Barretovendra DDS [address] [place] [address] 11/04/2024 11:15 AM EDT Office Visit [facility] MED[facility]INE [address] [place] [address] Petra Wiley FNP [address] [place] [address] 11/25/2024 9:15 AM EDT Office Visit [facility] [address] [place] [address] Petra Wiley FNP 505 [place] [address] 01/18/2025 3:00 PM EDT Office Visit [facility] ADULT DENTAL [address] [place] [address] Sanaz Nelson documented as of this encounter Visit Diagnoses Not on filedocumented in this encounter Additional Health Concerns Assessment Noted Time PHQ-9 Depression Total Score: 13 03/16/ 024 3:11 PM EDT documented as of this encounter Care Teams Metallurgical Engineer Relationship Specialty Start Date End Date Petra Wiley FNP [address] [place] [address] PCP - General Family Medicine 03/17/24 Willard Waters [address] [place] [address] Rheumatology 05/17/24September [address] [place] [address] 3rd [place] [address] Gastroenterology 05/17/24 Juan Sandra MD [address] [place] [address] Hematology and Oncology 05/17/24 Brigid Guy NP [address] [place] [address] Urology 05/17/24 Vicente Mooney MD [address] [place] [address] [address] [place] [address] Obstetrics and Gynecology 05/17/24 Beth Rai MD [address] [place] [address] Dr Rangel [address] [place] [address] Neurology 05/17/24 Michell Espinoza [address] 3rd [place] [address] Cardiology 05/17/24 Shelia Zheng Employee Relations AdministratorAviation Metalsmith 09/26/23 documented as of this encounter
--- OUTSIDE RECORDS SUMMARY | 2024-10-06 18:04 | XMS_ITS | Encounter Summary ---
Author Organization [facility] Address [address] [place] [address] Care Team Providers Care Entry Level Manager Name Role Phone Petra Wiley Primary Care Provider [phone] Reason for Referral * Surgical (Routine) - Pending Review Specialty Diagnoses / Procedures Referred By Mehreen linares Referred To Contact General Surgery Diagnoses Subcutaneous mass of right upper extremity Subcutaneous mass of abdominal wall [facility] [address] [place] [address] [facility] [address] [place] [address] Phone: tel: fax: Referral ID Status Reason Start Date Expiration Date Visits Requested Visits Authorized [id number] Pending Review Specialty Services Required 06/26/2024 12/26/2025 6 6 Encounter Details Date Type Department Care Team (Latest Contact Info) Description 06/26/2024 Transcribe Orders [facility] [address] [place] [address] Petra Wiley 230 [place] [address] Subcutaneous mass of right upper extremity (Primary [...] Description 11/02/2024 2:20 PM EDT Office Visit [facility] Rhe[facility] [address] [place] [address] Digital Librarian: Newton Rangel DO 119 [facility] [place] [address] 02/09/2025 10:15 AM EDT Office Visit [facility] D[facility]atology Clinic 4th Floor [address] [facility], [place] [address] Digital Librarian: Hipolito Lei MD [address] [place] [address] Scheduled Referrals Name Type Priority Associated Diagnoses Order Schedule Ambulatory referral to General Surgery Outpatient Referral Routine Subcutaneous mass of right upper extremity Subcutaneous mass of abdominal wall Expected: 06/26/2024, Expires: 12/24/2024 documented as of this encounter Visit Diagnoses Diagnosis Subcutaneous mass of right upper extremity- Primary Subcutaneous mass of abdominal wall documented in this encounter Care Teams Entry Level Manager Relationship Specialty Start Date End Date Petra Wiley [address] [place] [address] PCP - General Family Medicine 03/19/24 documented as of this encounter
--- OUTSIDE RECORDS SUMMARY | 2024-10-06 18:04 | XMS_ITS | Encounter Summary ---
Author Organization [employer] Address 75 [facility] 7t [place] [address] Care Team Providers Care Machine Tool Operator Name Role Phone Petra Wiley BUNGY JUMP MASTER Primary Care Provider Willard Waters Unavailable [phone] September Unavailable Juan Sandra MD Unavailable [phone] Brigid Guy NP Unavailable Vicente Mooney [...] 2:30 PM EDT Office Visit [facility] ADULT DENTAL [address] [place] [address] Venkat Barreto DDS [address] [place] [address] 11/04/2024 11:15 AM EDT Office Visit [facility] MEDICINE [address] [place] [address] Petra Wiley FNP [address] [place] [address] 11/25/2024 9:15 AM EDT Office Visit [facility] MED[facility] [address] [place] [address] Petra Wiley, BUNGY JUMP MASTER [address] [place], [place] [phone] 01/18/2025 3:00 PM EDT Office Visit [facility] ADULT DENTAL [address] [place], [place] [phone] Sanaz Nelson documented as of this encounter Procedures Procedure Name Priority Date/Time Associated Diagnosis Comments TSH W/REFLEX TO FT4 Routine 10/06/2024 1 :05 PM EDT CBC Routine 10/06/2024 1:05 PM EDT HCG, TOTAL, QN Routine 10/06/2024 1:05 PM EDT documented in this encounter Results * hCG, Total, Quantitative (10/06/2024 1:05 PM EDT) HCG Quantitative <2 mIU/mL [facility] Comment:Weeks post LMP Appro ximate hCG(Last Menstrual Period) Range (mIU/ml)3 - 4 weeks 9 - 1304 - 5 weeks 75 - 2,6005 - 6 weeks 850 - 20,8006 - 7 weeks 4000 - 100,2007 - 12 weeks 11,500 - 289,18381 - 16 weeks 18,300 - 137,16246 - 29 weeks (2nd trimester) 1,400 - 53,70265 - 41 weeks (3rd trimester) 940 - [...] Provider LAB BLOOD ORDERAB LES Final Result [facility] [address] [place] [address] [phone] * TSH with Reflex to Free T4 (10/06/2024 1:05 PM EDT) TSH reflex Free T4 1.37 0.32 - 4.0 uIU/mL [facility] 10/06/2024 1:05 PM EDT 10/06/2024 1:05 PM EDT us Generic External Data Provider LAB BLOOD ORDERAB LES Final Result [facility] [address] [place] [address] [phone] * (ABNORMAL) CBC (10/06/2024 1:05 PM EDT) Pathologist [facility] White Blood Count 7.4 4.8 - 10.8 X10*3/uL [facility] Red Blood Count 4.01(L) 4.20 - 5.50 X10*6/uL [facility] Hemoglobin 9.7(L) 12.0 - 16.0 g/dl [facility] Hematocrit 31.2(L) 37.0 - 47.0 % [facility] Mean Corpuscular Volume 77.8(L) 80.0 - 98.0 fL [facility] Mean Corpuscular Hemoglobin 24.2(L) 27.0 - 33.0 pg [facility] Mean Corpuscular HGB Conc 31.1 31.0 - 35.0 g/dl [facility] Red Cell Distribution Width 15.6 11.0 - 16.0 % [facility] Platelet Count 327 160 - 400 X10*3/uL [facility] Mean Platelet Volume 10.9 9.4 - 12.3 fL [facility] NRBC Pct Auto 0.0 0.0 - 0.2 /100WBC [facility] NRBC Abs Auto 0.000 0.0 - 0.012 X10*3/uL [facility] 10/06/2024 1:05 PM EDT 10/06/2024 1:05 PM EDT us Generic External Data Provider LAB BLOOD ORDERAB LES Final Result [facility] [address] [place] [address] [phone] documented in this encounter Visit Diagnoses Not on filedocumented in this encounter Additional Health Concerns Assessment Noted Time PHQ-9 Depression Total Score: 13 024 3:11 PM EDT documented as of this encounter Care Teams Machine Tool Operator Relationship Specialty Start Date End Date Petra Wiley FNP [address] [place] [address] PCP - General Family Medicine 03/17/24 Willard Waters [address] [place] [address] [address] [place], [place] Rheumatology 05/17/24September [address] 3rd [place] [address] Gastroenterology 05/17/24 Juan Sandra MD [address] [place] [address] Hematology and Oncology 05/17/24 Brigid Guy NP [address] [place] [address] Urology 05/17/24 Vicente Mooney MD [address] [place] [address] [address] [place] [address] Obstetrics and Gynecology 05/17/24 Beth Rai MD [address] [place] [address] 140 [place] [address] Neurology 05/17/24 Michell Espinoza [address] [place] [address] 3rd [place] [address] Cardiology 05/17/24 Shelia Zheng Rn Cardiovascular Icu[employer] Bending Machine Operator 09/26/23 documented as of this encounter
--- OUTSIDE RECORDS SUMMARY | 2024-10-06 18:04 | XMS_ITS | Encounter Summary ---
Author Organization [employer] Address [address] [facility] 7t [place] [address] Care Team Providers Care Financial Foundations Representative Name Role Phone Jennie Murray MD Primary Care Provider Petra Wiley Primary Care Provider Willard Waters Unavailable [phone] KesslerSeptember Unavailable Juan Sandra MD Unavailable [phone] Brigid Guy NP Unavailable Vicente Mooney MD Unavailable Beth Rai MD Unavailable Michell Espinoza Unavailable Encounter Details Date Type Department Care Team (Latest Contact Info) Description 09/12/2020 Abstract [facility] CONVERSIONS Dental, Provider, DDS Social History Tobacco [...] 2:30 PM EDT Office Visit [facility] ADULT DENTAL [address] [place], [place] [phone] Venkat Barreto DDS [address] [place], [place] [phone] 11/04/2024 11:15 AM EDT Office Visit [facility] MEDICINE [address] [place] [address] Petra Wiley FNP [address] [place] [address] 11/25/2024 9:15 AM EDT Office Visit [facility] [address] [place] [address] Petra Wiley FNP [address] [place] [address] 01/18/2025 3:00 PM EDT Office Visit [facility] ADULT DENTAL 505 [place] [address] Sanaz Nelson documented as of this encounter Visit Diagnoses Not on filedocumented in this encounter Care Teams Financial Foundations Representative Relationship Specialty Start Date End Date Jennie Murray MD 230 [place] [address] PCP - General Family Medicine 06/23/13 03/16/24 Petra Wiley FNP [address] [place] [address] PCP - General Family Medicine 03/17/24 Willard Waters [address] [place] [address] Rheumatology 05/17/24September [address] 3rd [place] [address] Gastroenterology 05/17/24 Juan Sandra MD [address] [place] [address] Hematology and Oncology 05/17/24 Brigid Guy NP [address] [place] [address] Urology 05/17/24 Vicente Mooney MD [address] [place] [address] [address] [place] [address] Obstetrics and Gynecology 05/17/24 Beth Rai MD [address] [place] [address] [place] [address] Neurology 05/17/24 Michell Espinoaz [address] 3rd [place] [address] Cardiology 05/17/24 Shelia Zheng Computational Theory ScientistDirector Of Casino Marketing 09/26/23 documented as of this encounter
--- OUTSIDE RECORDS SUMMARY | 2024-10-06 18:05 | XMS_ITS | Encounter Summary ---
Author Organization [employer] Address 75 [facility] 7t [place] [address] Care Team Providers Care Electronic Prepress Technician Name Role Phone Jennie Murray MD Primary Care Provider [phone] Petra Wiley Primary Care Provider [phone] Willard Waters Unavailable [phone] Victoria September Unavailable Juan Sandra MD Unavailable [phone] Brigid Guy NP Unavailable Vicente Mooney [...] (Late st Contact Info) Description 08/21/2022 Telephone [facility] ADULT DENTAL 230 [place] [address] Venkat Barreto DDS [address] [place] [address] Appointment (Ambika Anaya 1985 Patient [...] Description 10/27/2024 2:30 PM EDT Office Visit [facility] ADULT DENTAL 230 [place] [address] Venkat Barreto DDS [address] [place] [address] 11/04/2024 11:15 AM EDT Office Visit [facility] MEDICINE 230 [place] [address] Petra Wiley FNP [address] [place] [address] 11/25/2024 9:15 AM EDT Office Visit [facility] 230 [place] [address] Petra Wiley FNP [address] [place] [address] 01/18/2025 3:00 PM EDT Office Visit [facility] ADULT DENTAL 505 [place] [address] Sanaz Nelson documented as of this encounter Visit Diagnoses Not on filedocumented in this encounter Additional Health Concerns Assessment Noted Time PHQ-9 Depression Total Score: 0 07/04/19 23 3:01 PM EST documented as of this encounter Care Teams Electronic Prepress Technician Relationship Specialty Start Date End Date Jennie Murray MD 230 [place] [address] PCP - General Family Medicine 06/23/13 03/16/24 Petra Wiley FNP 230 [place] [address] PCP - General Family Medicine 03/17/24 Willard Waters [address] [place] [address] Rheumatology 05/17/24 Victoria Sumaya [address] 3rd [place] [address] Gastroenterology 05/17/24 Juan Sandra MD [address] [place] [address] Hematology and Oncology 05/17/24 Brigdi Guy NP [address] [place] [address] Urology 05/17/24 Vicente Mooney MD [address] [place] [address] [address] [place] [address] Obstetrics and Gynecology 05/17/24 Beth Rai MD [address] [place] [address] [place] [address] Neurology 05/17/24 Michell Espinoza [address] [place] [address] 3rd [place] [address] Cardiology 05/17/24 Shelia Zheng Machine DeburrerAdobe Cq Developer 09/26/23 documented as of this encounter
--- OUTSIDE RECORDS SUMMARY | 2024-10-06 18:05 | XMS_ITS | Encounter Summary ---
Author Organization [employer] Address 75 [facility] 7t [place] [address] Care Team Providers Care All Source Analyst Name Role Phone Jennie Murray MD Primary Care Provider [phone] Petra Wiley Primary Care Provider [phone] Willard Waters Unavailable [phone] KesslerSeptember Unavailable Juan Sandra MD Unavailable [phone] Brigid Guy NP Unavailable Vicente Mooney MD Unavailable Beth Rai MD Unavailable Michell Espinoza Unavailable Reason for Visit * Reason Onset Date Comments medication 09/19/2022 Encounter Details Date Type Department Care Team (Late st Contact Info) Description 09/19/2022 Telephone [facility] ADULT DENTAL [address] [place], [place] [phone] Venkat Barreto DDS [address] [facility] [place], [place] [phone] medication Social History Tobacco Use Types Packs/Day [...] EDT Script was sent for Augementin to [facility] in [place]. Patient went in to pickling drum operator script and they stated there was nothing there. Contacted [facility] and they stated that nationwide there was a shut down on their system for about 3 hours so it doesn't look like they received it. Can it be resent for patient? documented in this encounter Plan of Treatment Upcoming Encounters Date Type Department Care Team (Late st Contact Info) Description 10/27/2024 2:30 PM EDT Office Visit [facility] ADULT DENTAL [address] [place] [address] Venkat Barreto DDS [address] [place] [address] 11/04/2024 11:15 AM EDT Office Visit [facility] MEDICINE [address] [place] [address] Petra Wiley FNP 505 [place] [address] 11/25/2024 9:15 AM EDT Office Visit [facility] MEDICINE [address] [place] [address] Petra Wiley FNP 505 [place] [address] 01/18/2025 3:00 PM EDT Office Visit [facility] ADULT DENTAL [address] [place] [address] Sanaz Nelson documented as of this encounter Visit Diagnoses Not on filedocumented in this encounter Additional Health Concerns Assessment Noted Time PHQ-9 Depression Total Score: 0 07/04/19 23 3:01 PM EST documented as of this encounter Care Teams All Source Analyst Relationship Specialty Start Date End Date Jennie Murray MD 230 [place] [address] PCP - General Family Medicine 06/23/13 03/16/24 Petra Wiley FNP [address] [place] [address] PCP - General Family Medicine 03/17/24 Willard Waters [address] [place] [address] Rheumatology 05/17/24September 11 [facility] 3rd [place] [address] Gastroenterology 05/17/24 Juan Sandra MD [address] [place] [address] Hematology and Oncology 05/17/24 Brig[address] 10 [facility] [address] [place] [address] Urology 05/17/24 Vicente Mooney MD [address] [place] [address] [address] [place] [address] Obstetrics and Gynecology 05/17/24 Beth Rai MD [address] [place] [address] 140 [place] [address] Neurology 05/17/24 Michell Espinoza [address] [place] [address] 3rd Floor RADHA Katz [address] Cardiology 05/17/24 Shelia Zheng Shoe CovererRubber Washer 09/26/23 documented as of this encounter
--- OUTSIDE RECORDS SUMMARY | 2024-10-06 18:05 | XMS_ITS | Encounter Summary ---
Author Organization [employer] Address 75 [facility] 7t [place] [address] Care Team Providers Care Raw Cheese Worker Name Role Phone Jennie Murray MD Primary Care Provider Petra Wiley Primary Care Provider Willard Waters Unavailable [phone] September Unavailable Juan Sandra MD Unavailable [phone] Brigid Guy NP Unavailable Vicente Mooney MD Unavailable Beth Rai MD Unavailable Michell Espinoza Unavailable Encounter Details Date Type Department Care Team (Late st Contact Info) Description 05/25/2022 Abstract [facility] ADULT D[facility]AL [address] [place], [place] [phone] Dental, Provider, DDS Social History Tobacco Use [...] 2:30 PM EDT Office Visit [facility] ADULT D[facility]AL [address] [place], [place] [phone] Venkat Barreto DDS 230 [place] [address] 11/04/2024 11:15 AM EDT Office Visit [facility] 230 [place] [address] Petra Wiley, GRAIN MERCHANDISING MANAGER [address] [place] [address] 11/25/2024 9:15 AM EDT Office Visit [facility] 230 [place] [address] Petra Wiley, GRAIN MERCHANDISING MANAGER 505 [place] [address] 01/18/2025 3:00 PM EDT Office Visit [facility] ADULT DENTAL [address] [place] [address] Sanaz Nelson documented as of this encounter [...] on filedocumented in this encounter Care Teams Raw Cheese Worker Relationship Specialty Start Date End Date Jennie Murray MD 230 [place] [address] PCP - General Family Medicine 06/23/13 03/16/24 Petra Wiley FNP 230 [place] [address] PCP - General Family Medicine 03/17/24 Willard Waters [address] [place] [address] Rheumatology 05/17/24KesslerSeptember 11 [facility] 3rd [place] [address] Gastroenterology 05/17/24 Juan Sandra MD [address] [place] [address] Hematology and Oncology 05/17/24 Brigid Guy NP [address] [place] [address] Urology 05/17/24 Vicente Mooney MD [address] [place] [address] [address] [place] [address] Obstetrics and Gynecology 05/17/24 Beth Rai MD [address] [place] [address] 140 [place] [address] Neurology 05/17/24 Michell Espinoza 11 [facility] 3rd [place] [address] Cardiology 05/17/24 Shelia Zheng Procedure RnFast Food Supervisor 09/26/23 documented as of this encounter
--- OUTSIDE RECORDS SUMMARY | 2024-10-06 18:05 | XMS_ITS | Encounter Summary ---
Author Organization [employer] Address 75 [facility] 7t [place] [address] Care Team Providers Care Funeral Service Practitioner/Embalmer Name Role Phone Jennie Murray MD Primary Care Provider Petra Wiley Primary Care Provider Willard Waters Unavailable [phone] September Unavailable Juan Sandra MD Unavailable [phone] Brigid Guy NP Unavailable Vicente Mooney MD Unavailable Beth Rai MD Unavailable Michell Espinoza Unavailable Encounter Details Date Type Department Care Team (Late st Contact Info) Description 05/18/2022 Orders Only [facility] MEDICINE 230 [place] [address] Jennie Murray MD 505 [place], [place] [phone] Acute foot pain, unspecified laterality (Primary Dx) [...] Description 10/27/2024 2:30 PM EDT Office Visit [facility] ADULT DENTAL 230 [place] [address] Venkat Barreto DDS 230 [place] [address] 11/04/2024 11:15 AM EDT Office Visit [facility] MEDICINE [address] [place] [address] Petra Wiley FNP 505 [place] [address] 11/25/2024 9:15 AM EDT Office Visit [facility] MEDICINE [address] [place] [address] Petra Wiley FNP 505 [place] [address] 01/18/2025 3:00 PM EDT Office Visit [facility] 505 [place] [address] Sanaz Nelson documented as of this encounter Visit Diagnoses Diagnosis Acute foot pain, unspecified laterality- Primary documented in this encounter Care Teams Funeral Service Practitioner/Embalmer Relationship Specialty Start Date End Date Jennie Murray MD [address] [place] [address] PCP - General Family Medicine 06/23/13 03/16/24 Petra Wiley FNP [address] [place] [address] PCP - General Family Medicine 03/17/24 Willard Waters [address] [place] [address] Rheumatology 05/17/24 Victoria Sumaya [address] 3rd [place] [address] Gastroenterology 05/17/24 Juan Sandra MD 575 [place] [address] Hematology and Oncology 05/17/24 Brigid Guy NP [address] [place] [address] Urology 05/17/24 Vicente Mooney MD [address] [place] [address] Obstetrics and Gynecology 05/17/24 Beth Rai MD [address] [place] [address] [address] Neurology 05/17/24 Michell Espinoza [address] [facility] 3rd [place] [address] Cardiology 05/17/24 Shelia Zheng Real Estate ParalegalNurses Supervisor 09/26/23 documented as of this encounter
--- OUTSIDE RECORDS SUMMARY | 2024-10-06 18:05 | XMS_ITS | Clinical Summary ---
Author Organization [facility] Address [address] [place] [address] Care Team Providers Care Lemon Grower Name Role Phone Petra Wiley Primary Care Provider [phone] Allergies Active Allergy Reactions Criticality Noted Date [...] Type Department Care Team Description 08/06/2024 Telephone [facility] 4th [address] [place] [address], Fourth [place] [phone] Middle School Technology Teacher: Khadra Westbrook Telephone Intake, Staff PAC Appt Request - New 08/01/2024 Results Follow-Up [facility] [address] [place] [address] Middle School Technology Teacher: Newton Rangel DO 07/22/2024 12:00 PM EST Office Visit [facility] [address] [place] [address] Middle School Technology Teacher: Newton Rangel DO Erythromelalgia (Primary Dx); Polyarthralgia [...] Description 11/02/2024 2:20 PM EDT Office Visit [facility] [address] [place] [address] Middle School Technology Teacher: Newton Rangel DO 119 [facility] [place] [address] 02/09/2025 10:15 AM EDT Office Visit [facility] 4th Floor [address] [facility], Fourth [place] [phone] Middle School Technology Teacher: Hipolito Lei MD [address] [place] [address] Health Maintenance Due Date Last Done Comments [...] Completed 05/13/2024 Procedures * Due to [place] Writer's Blo[employer] law, this organization might not be sharing negative HIV tests. Procedure Name Priority Date/Time Associated Diagnosis Comments SEDIMENTATION RATE, AUTOMATED Routine 07/22/2024 1:56 PM EST Polyarthralgia PROTEIN ELECTROPHORESIS W/REFLEX TO IMMUNOFIXATION, SERUM Routine 07/22/2024 1:56 PM EST Polyarthralgia from Last 3 Months Results * Due to [place] Writer's Blo[employer] law, this organization might not be sharing negative HIV tests. * Protein Electrophoresis w/Reflex to Immunofixation, Serum (07/22/2024 1:56 PM EST) Protein, Total 8.1 6.1 - 8.1 g/dL 07/28/2024 7:22 AM EST [facility] Albumin 4.8 3.8 - 4.8 g/dL 07/28/2024 7:22 AM EST [facility] Alpha 1 Globulin 0.3 0.2 - 0.3 g/dL 07/28/2024 7:22 AM EST [facility] Alpha 2 Globulin 0.7 0.5 - 0.9 g/dL 07/28/2024 7:22 AM EST [facility] [place] [facility] Beta 1 Globulin 0.6 0.4 - 0.6 g/dL 07/28/2024 7:22 AM EST [facility] Beta 2 Globulin 0.5 0.2 - 0.5 g/dL 07/28/2024 7:22 AM EST [facility] Gamma Globulin 1.2 0.8 - 1.7 g/dL 07/28/2024 7:22 AM EST [facility] Interpretation See Comments 07/28/2024 7:22 AM EST [facility] Comment: Normal Serum Protein Electrophoresis Pattern. No abnormal protein bands (M-protein) detected. Blood Structure of peripheral vein / Unknown Venipuncture / Unknown 07/22/2024 1:56 PM EST 07/22/2024 2:37 PM EST Narrative [facility] - 07/28/2024 7:22 AM EST [facility] Received Date:[id number] us Newton Yenifer DO LAB BLOOD ORDERABLES Final Res ult [facility] [address] [facility] 3rd Floor, [place] [address], [place] [phone] [facility] [address] [facility] 3rd Floor, [place] [address], [place] [phone] * (ABNORMAL) Sedimentation Rate (07/22/2024 1:56 PM EST) Sed Rate 29(H) <20 mm/Hr mm/Hr 07/22/2024 2:52 PM EST [facility] Blood Structure of peripheral vein / Unknown Venipuncture / Unknown 07/22/2024 1:56 PM EST 07/22/2024 2:37 PM EST us Tastebudsov DO LAB BLOOD ORDERABLES Final Res ult [facility] [address] [place] [address], from Last 3 [place] [id number] [facility] Care Teams Lemon Grower Relationship Specialty Start Date End Date Petra Wiley [address] [place] [address] PCP - General Family Medicine 03/19/24
--- OUTSIDE RECORDS SUMMARY | 2024-10-06 18:05 | XMS_ITS | Encounter Summary ---
Author Organization [employer] Address 75 [facility] 7t [place] [address] Care Team Providers Care Rejected Items Clerk Name Role Phone Jennie Murray MD Primary Care Provider [phone] Petra Wiley Primary Care Provider Willard Waters Unavailable [phone] Kessler, September Unavailable Juan Sandra MD Unavailable [phone] Brigid Guy NP Unavailable Vicente Mooney MD Unavailable Beth Rai MD Unavailable Michell Espinoza Unavailable Encounter Details Date Type Department Care Team (Late st Contact Info) Description 07/26/2022 Orders Only [facility] MEDICINE [address] [place] [address] Nelson Medrano MD [address] [place] [phone] Chronic idiopathic constipation (Primary Dx) Social History [...] Office Visit [facility] ADULT DENTAL [address] [place] [address] Venkat Barreto DDS [address] [place] [address] 11/04/2024 11:15 AM EDT Office Visit [facility] MEDICINE [address] [place] [address] Petra Wiley FNP 505 [place] [address] 11/25/2024 9:15 AM EDT Office Visit [address] [address] Petra Wiley FNP 505 [place] [address] 01/18/2025 3:00 PM EDT Office Visit [facility] ADULT DENTAL 505 [place] [address] Sanaz Nelson documented as of this encounter Visit Diagnoses Diagnosis Chronic idiopathic constipation- Primary Unspecified constipation documented in this encounter Additional Health Concerns Assessment Noted Time PHQ-9 Depression Total Score: 0 07/04/19 23 3:01 PM EST documented as of this encounter Care Teams Rejected Items Clerk Relationship Specialty Start Date End Date Jennie Murray MD [address] [place] [address] PCP - General Family Medicine 06/23/13 03/16/24 Petra Wiley FNP 230 [place] [address] PCP - General Family Medicine 03/17/24 Willard Waters [address] [place] [address] Rheumatology 05/17/24 Sumaya Kessler 11 [facility] 3rd [place] [address] Gastroenterology 05/17/24 Juan Sandra MD [address] [place] [address] Hematology and Oncology 05/17/24 Brigid Guy NP 10 [facility] [address] [place] [address] Urology 05/17/24 Vicente Mooney MD [address] [place] [address] [address] [place] [address] Obstetrics and Gynecology 05/17/24 Beth Rai MD [address] [place] [address] Neurology 05/17/24 Michell Espinoza 11 [facility] 3rd [place] [address] Cardiology 05/17/24 Shelia Zheng Assault Boat CoxswainInfrastructure Project Manager 09/26/23 documented as of this encounter
--- OUTSIDE RECORDS SUMMARY | 2024-10-06 18:05 | XMS_ITS | Encounter Summary ---
Author Organization [employer] Address [address] [facility] [address] 7t [place] [address] Care Team Providers Care Sandfill Operator Surface Name Role Phone Petra Wiley AIR QUALITY INSTRUMENT SPECIALIST Primary Care Provider Willard Waters Unavailable [phone] Kesslerseptember Unavailable Juan Sandra MD Unavailable [phone] Brigid Guy NP Unavailable Vicente Mooney MD Unavailable Beth Rai MD Unavailable Michell Espinoza Unavailable Encounter Details Date Type Department Care Team (Late st Contact Info) Description 05/20/2024 Orders Only [facility] PEDS 505 [place], [place] [phone] Provider, MD Addie Social History Tobacco Use [...] your housing situation today? I have candido martniez 04/16/[address] you li [...] Description 10/27/2024 2:30 PM EDT Office Visit [facility] ADULT DENTAL [address] [place] [address] Venkat Barreto, DDS [address] [place] [address] 11/04/2024 11:15 AM EDT Office Visit [facility] MEDICINE [address] [place] [address] Petra Wiley FNP 505 [place] [address] 11/25/2024 9:15 AM EDT Office Visit [facility] MEDICINE [address] [place] [address] Petra Wiley FNP 505 [place] [address] 01/18/2025 3:00 PM EDT Office Visit [facility] [address] [place] [address] Sanaz Nelson documented as of this encounter [...] documented as of this encounter Care Teams Sandfill Operator Surface Relationship Specialty Start Date End Date Petra Wiley FNP [address] [place] [address] PCP - General Family Medicine 03/17/24 Willard Waters [address] [place] [address] Rheumatology 05/17/24 Victoria Sumaya 11 [facility] 3rd [place] [address] Gastroenterology 05/17/24 Juan Sandra MD [address] [place] [address] Hematology and Oncology 05/17/24 Brigid Guy NP [address] [facility] [address] [place] [address] Urology 05/17/24 Vicente Mooney MD [address] [place] [address] [address] [place] [address] Obstetrics and Gynecology 05/17/24 Beth Rai MD [address] [place] [address] 140 [place] [address] Neurology 05/17/24 Michell Espinoza [address] 3rd [place] [address] Cardiology 05/17/24 Shelia Zheng Cutter Grind Tool TechnicianTools Programmer 09/26/23 documented as of this encounter
--- OUTSIDE RECORDS SUMMARY | 2024-10-06 18:05 | XMS_ITS | Clinical Summary ---
Author Organization [employer] Address [address] [facility] 7t [place] [address] Care Team Providers Care Acreage Reporter Name Role Phone Petra Wiley TRUMPET TEACHER Primary Care Provider Willard Waters Unavailable [phone] September Unavailable Juan Sandra MD Unavailable [phone] Brigid Guy NP Unavailable Vicente Mooney [...] MINDA VECES AL D A Active Creon [id number] units capsule delayed-release particles capsule TOME ADRY [...] 25 Palpitations 05/17/2024 Overview (05/17/2024): Followed by [facility] Cards Continues on Propranolol 20mg BID (through Cards) Class 1 obesity with body ma ss index (BMI) of 32.0 to 32.9 in adult 05/17/2024 Assessment & Plan (07/29/2024 4:08 PM EST): - Cont following with accounting bookkeeper and healthy lifestyle interventions Assessment & Plan [...] of medullary thyroid cancer or MEN 2. Non Destructive Testing Scientist referral offered. Recommended to decrease soda and [...] bruising easily 03/17/2024 Overview (03/17/2024): Followed by [facility] Heme/Onc - Dr. Sandra Per consult Jan [...] 04/17/2021 HCT 36.5 (L) 03/18/2024 Following with [facility] Heme/Onc - Dr. Turner Assessment & Plan [...] - Has consulted with Surgery team in [facility] for consideration of excision. Per [...] - Has consulted with Surgery team in [facility] for consideration of excision. Per their consult Mar 2024, identified area has normal lobular fat, no discrete lipoma or nodules. Plan: conservative measures Abnormal uterine bleeding 12/27/2023 Overview (07/29/2024): Following with [facility] DRUG ENFORCEMENT AGENT - Dr. Mooney EMB performed 04/14/24. Path: [...] Overview (05/17/2024): Lab Results Component Value Date [id number] 19.9 (L) 03/18/2024 [id number] 19 (A) 05/08/2023 - Cont Vit D [...] Overview (05/17/2024): Pap NIL/HPV Neg 11/12/2019 Dental: [facility] Dental Last PE: 06/03/23 Hep B Immune: Mar 2024 Gastroesophageal reflux disease without esophagi tis 06/03/2023 Overview (06/03/2023): ?? Followed by [facility] GI Varghese Kessler DIRECTOR GLOBAL DEVELOPMENT ?? Continues famotidine and Dexliant through GI Irritable bowel syndrome with constipation 06/03 Overview (03/17/2024): Followed up [facility] YASSINE Kessler DIRECTOR GLOBAL DEVELOPMENT Continues Bentyl TID Continues Bisacodyl 10mg nightly Dysphagia, oropharyngeal phase 06/03/2023 Overview (06/03/2023): ?? Followed by [facility] YASSINE Kessler APRN Gastroparesis 06/03/2023 Overview (03/17/2024): Followed by [facility] GI Continues with the following medication regimen for multiple GI symptoms and conditions: Creon, famotidine, psyllium, dicyclomine, simethicone, and Dexliant Previous medications: carafate NURIA positive 06/03/2023 Overview (07/29/2024): Previous followed by [facility] Rheum - Dr. Waters May 2024: Established with [facility] Rheum - Dr. Street NURIA positive 2019: 1:160, anti dna, nicholas, ESR, CRP all wnl Disorder of sesamoid bone of foot 06/03/2023 Overview (06/03/2023): -Left lateral sesamoid stress fx identified Jul 2022 at [facility] -Plan for immobilization in short walking boot and follow up 6 weeks Assessment & Plan (06/03/2023 10:28 PM EST): Plan to request latest records from [facility] and follow up with PCP to discuss eligibility handicap placard. Fibromyalgia 08/02/2022 Overview (07/29/2024): -Previously: Lyrica 75mg nightly through [facility] Physiatry/Rheum -Lyrica rx from PCP as of [...] [facility] [address] [place] [address] Sylvia Lemons MD Results 10/06/2024 Orders Only GENERIC EXTERNAL DATA DEPARTMENT Provider, Generic External Data 09/27/2024 Refill [facility] WALK-IN CENTER [address] [place] [address] Petra Wiley FNP Vitamin D insufficiency 09/15/2024 Refill [facility] MED [facility] PEDS [address] [place] [address] Jennie Murray MD 09/11/2024 2:00 PM EDT Office Visit [facility] ADULT DENTAL [address] [place] [address] Venkat Barreto DDS 09/08/2024 3:00 PM EDT Clinical Support [facility] DIABETES/NUTRITION [address] [place] [address] Class 2 obesity with body mass index (BMI) of 35.0 to 35.9 in adult, unspecified obesity type, unspecified whether serious comorbidity present; Class 1 obesity with body mass index (BMI) of 32.0 to 32.9 in adult, unspecified obesity type, unspecified whether serious comorbidity present 09/08/2024 Travel 09/07/2024 Orders Only [facility] MED & PEDS [address] [place] [address] Petra Wiley FNP 09/07/2024 Travel 09/07/2024 Telephone [facility] MEDICINE [address] [place] [address] Petra Wiley FNP August08/28/2024 Population Health Risk Score [facility] () Department [address] [place] [phone] Provider, Population Health Generic 08/18/2024 1:30 PM EST Office Visit [facility] ADULT DENTAL [address] [place] [address] Venkat Barreto, DDS Erythromelalgia (CMS/HCC) (Primary Dx); Polyarthralgia 08/17/2024 Orders Only GENERIC EXTERNAL DATA DEPARTMENT Provider, Generic External Data 08/17/2024 Telephone [facility] MEDICINE [address] [place] [address] Petra Wiley FNP Referral 08/14/2024 1:30 PM EST Clinical Support [facility] DIABETES/NUTRITION [address] [place] [address] BMI 35.0-35.9,adult (Primary Dx) 08/14/2024 Travel 08/11/2024 Orders Only GENERIC EXTERNAL DATA DEPARTMENT Provider, Generic External Data 08/04/2024 2:30 PM EST Office Visit [facility] OPTOMETRY [address] [place] [address] Waqas, Cristine, OD Hordeolum internum of left lower eyelid (Primary Dx); Dry eyes, bilateral; White without pressure of peripheral retina of both eyes; Hyperopia of right eye 08/04/2024 Travel 07/31/2024 Telephone [facility] MEDICINE [address] [place] [address] Petra Wiley FNP Patient request 07/29/2024 10:30 AM EST Office Visit [address] [address] Petra Wiley FNP Asthma, unspecified asthma severity, [...] Travel 07/28/2024 1:30 PM EST Clinical Support [facility] DIABETES/NUTRITION [address] [place] [address] BMI 35.0-35.9,adult (Primary Dx) 07/28/2024 Telephone [facility] MED & PEDS [address] [place] [address] Shireen Eagle MA Chart Prep 07/28/2024 Travel 07/24/2024 2:30 PM EST Office Visit [facility] ADULT DENTAL [address] [place] [address] Venkat Barreto DDS 07/24/2024 2:00 PM EST Office Visit [facility] WALK[facility]IN [facility]ENTER [address] [place] [address] Sylvia Lemons MD Hordeolum externum of left lower eyelid (Primary Dx) 07/20/2024 3:00 PM EST Office Visit [facility] ADULT DENTAL [address] [place] [address] Sanaz Nelson 07/20/2024 2:00 PM EST Clinical Support [facility] DIABETES/NUTRITION [address] [place] [address] Tamanna Mcintyre, RD BMI 35.0-35.9,adult (Primary Dx) 07/20/2024 Travel 07/12/2024 Refill [facility] CH[facility] MED & PEDS [address] [place] [address] Petra Wiley, TRUMPET TEACHER Seasonal allergies 07/10/2024 2:00 PM EST Nutrition [facility] DIABETES/NUTRITION [address] [place] [address] Tamanna Mcintyre, RD Body mass index (BMI) of 35.0 to 35.9 in adult (Primary Dx) 07/10/2024 1:00 PM EST Office Visit [facility] ADULT DENTAL [address] [place] [address] Venkat Barreto, DDS 07/10/2024 Travel from Last [...] Description 10/27/2024 2:30 PM EDT Office Visit [facility] ADULT DENTAL [address] [place] [address] Venkat Barreto DDS [address] [place] [address] 11/04/2024 11:15 AM EDT Office Visit [facility] MEDICINE [address] [place] [address] Petra Wiley, TRUMPET TEACHER [address] [place] [address] 11/25/2024 9:15 AM EDT Office Visit [facility] MEDICINE [address] [facility] [place] [address] Petra Wilye, TRUMPET TEACHER [address] [place], [place] [phone] 01/18/2025 3:00 PM EDT Office Visit [facility] CHC ADULT DENTAL [address] [place], [place] [phone] Sanaz Nelson Health Maintenance Due Date Last [...] Free T4 (10/06/2024 1:05 PM EDT) Pathologist [facility] TSH reflex Free T4 1.37 0.32 - 4.0 uIU/mL [facility] 10/06/2024 1:05 PM EDT 10/06/2024 1:05 PM EDT us Generic External Data Provider LAB BLOOD ORDERAB LES Final Result Performing Organization Address City/State/[facility] Co de Phone Number [facility] [address] [place] [phone] * (ABNORMAL) CBC (10/06/2024 1:05 PM EDT) Pathologist [facility] White Blood Count 7.4 4.8 - 10.8 X10*3/uL [facility] Red Blood Count 4.01(L) 4.20 - 5.50 X10*6/uL [facility] Hemoglobin 9.7(L) 12.0 - 16.0 g/dl [facility] Hematocrit 31.2(L) 37.0 - 47.0 % [facility] Mean Corpuscular Volume 77.8(L) 80.0 - 98.0 fL [facility] Mean Corpuscular Hemoglobin 24.2(L) 27.0 - 33.0 pg [facility] Mean Corpuscular HGB Conc 31.1 31.0 - 35.0 g/dl [facility] Red Cell Distribution Width 15.6 11.0 - 16.0 % [facility] Platelet Count 327 160 - 400 X10*3/uL [facility] Mean Platelet Volume 10.9 9.4 - 12.3 fL [facility] NRBC Pct Auto 0.0 0.0 - 0.2 /100WBC [facility] NRBC Abs Auto 0.000 0.0 - 0.012 X10*3/uL [facility] 10/06/2024 1:05 PM EDT 10/06/2024 1:05 PM EDT Generic External Data Provider LAB BLOOD ORDERAB LES Final Result Performing Organization Address [facility]/ZIP Co de Phone Number [facility] [address] [place] [phone] * hCG, Total, Quantitative (10/06/2024 1:05 PM EDT) HCG Quantitative <2 mIU/mL [facility] Comment:Weeks post LMP Appr oximate hCG(Last Menstrual Period) Range (mIU/ml)3 - 4 weeks 9 - 1304 - 5 weeks 75 - 2,6005 - 6 weeks 850 - 20,8006 - 7 weeks 4000 - 100,2007 - 12 weeks 11,500 - 289,26384 - 16 weeks 18,300 - 137,95424 - 29 weeks (2nd trimester) 1,400 - 53,02308 - 41 weeks (3rd trimester) 940 - [...] ORDERAB LES Final Result Performing Organization Address [facility]/ZIP Co de Phone Number [facility] [address] [place] [phone] * BI US Breast Limited Right (09/01/2024 12:30 PM EDT) Anatomical Region Laterality Modality Breast Right Ultrasound 09/01/2024 12:3 0 PM EDT Narrative 09/01/2024 3:58 PM EDT ? [facility] ? [address] [place] [address] ? Ultrasound Report ? Signed ? Patient: Ambika Mcdermott ?MR#: [id number] ?? [id number] ? : 1985 ?Acct:[id number] ? Age/Sex: 39 / F ?ADM Date: 09/01/24 ? Loc: HO.MAMMO ? Attending Dr: Petra LUCERO ? Ordering Physician: Petra Wiley ?? Date of Service: 09/01/24 ?? Procedure(s): US breast RT limited ?? Accession Number(s): [id number] ? cc: Petra Wiley ? EXAMINATION: ?? [...] their next mammogram. ? Electronically signed by: ??Eenida Núñez DO ??09/01/2024 03:55 PM EDT ? Dictated By: ?Eneida Núñez DO ? Signed By: ?<Electronically signed by Eneida Núñez, DO in OV> ? 09/01/24 1555 ? DD/ 1230 ? TD/TT: 09/01/24 1332 ? Manager Chemical: ? Procedure Note Fletcheremmabonnielenny, Image - 09/01/2024 [place] [facility] [address] [place] [address] Ultrasound Report Signed Patient: Ambika Mcdermott#: [id number] : 1985Acct:[id number] Age/Sex: 39 / FADM Date: 09/01/24 Loc: HO.MAMMO Attending Dr: Petra Wiley TRUMPET TEACHER Ordering Physician: Petra Wiley Date of Service: 09/01/24 Procedure(s): US breast RT limited Accession Number(s): [id number] cc: Petra Wiley EXAMINATION: MM DIAGNOSTIC DIGITAL [...] 09/01/24 1555 DD/ 1230 TD/TT: 09/01/24 1332 Manager Chemical: us Petra Wiley TRUMPET TEACHER IMG US PROCEDURES Final Result * BI Mammogram Diagnostic Tomosynthesis Bilateral (09/01/2024 12:30 PM EDT) Anatomical Region Laterality Modality Breast Bilateral Mammography 09/01/2024 12:3 0 PM EDT Narrative 09/01/2024 3:58 PM EDT ? [facility] ? [address] [place] [address] ? Mammography Report ? Signed ? Patient: Lowell Anaya,Ambika ?MR#: [id number] ?? [id number] ? : 1985 ?Acct:[id number] ? Age/Sex: 39 / F ?ADM Date: 09/01/24 ? Loc: HO.MAMMO ? Attending Dr: Petra Wiley TRUMPET TEACHER ? Ordering Physician: Petra Wiley TRUMPET TEACHER ?Results: 3.6MPr ?? obably Benign Finding - Short 6 M F/U Suggested ? Date of Service: 09/01/24 ?Follow Up: 6 Month F/U ? Procedure(s): MM tomosynthesis diagnostic BI ?? Accession Number(s): [id number] ? cc: Petra Wiley TRUMPET TEACHER ? EXAMINATION: ?? MM DIAGNOSTIC DIGITAL BREAST [...] PM EDT ?? RP ? Dictated By: ?Enedia Núñez DO ? Signed By: ?<Electronically signed by Eneida Núñez, DO in OV> ? 09/01/24 1555 ? DD/DT: 09/01/ 1230 ? TD/TT: 09/01/24 1332 ? Manager Chemical: ? Procedure Note Donotuseinterpreter, Image - 09/01/2024 [place] [facility] [address] [place], [place] [address] Mammography Report Signed Patient: Ambika McdermottMR#: [id number] : 1985Acct:[id number] Age/Sex: 39 / FADM Date: 09/01/24 Loc: HO.MAMMO Attending Dr: Petra Wiley TRUMPET TEACHER Ordering Physician: Petra Wiley FNPResults: 3.6MPr obably Benign Finding - Short 6 M F/U Suggested Date of Service: 09/01/24Follow Up: 6 Month F/U Procedure(s): MM tomosynthesis diagnostic BI Accession Number(s): [id number] cc: Petra Wiley TRUMPET TEACHER EXAMINATION: MM DIAGNOSTIC DIGITAL BREAST TOMOSYNTHESIS, BILATERAL [...] 09/01/24 1555 DD/ 1230 TD/TT: 09/01/24 1332 Manager Chemical: us Petra Wiley TRUMPET TEACHER IMG BI PROCEDURES Final Result * Urinalysis w/reflex microscopic (08/17/2024 2:00 PM EST) Color Urine Yellow [facility] Appearance Urine Clear [facility] PH 5.5 5.0 - 9.0 [facility] Glucose Urine UA Negative Negative mg/dL [facility] Urine Blood Negative Negative [facility] Specific [place] - Urine 1.010 1.005 - 1.025 [facility] Urine Protein Negative Neg-Trace mg/dL [facility] Urine Ketones Negative Negative mg/dL [facility] Nitrite Urine Negative Negative [facility] Leukocyte Esterase Urine Negative Negative [facility] 08/17/2024 2:00 PM EST 08/17/2024 2:25 PM EST Narrative [facility] - 08/17/2024 2:36 PM EST Urine, Clean Catch us Generic External Data Provider LAB URINE ORDERAB LES Final Result [facility] [address] [place] [phone] [phone] * Culture, Urine, Routine (08/11/2024 2:36 PM EST) Urine Urine specimen obtained by clean catch procedure / Unknown 08/11/2024 2:36 PM EST 08/11/2024 4:01 PM EST Comment:UACC Narrative [facility] - 08/13/2024 9:47 AM EST Urine Culture Report Result Urine Culture 10,000 to 50,000 cfu/ml Urine Culture Mixed bacterial terry characteristic of Urine Culture urogenital contamination. Specimen Source: Urine clean catch us Generic External Data Provider LAB MICROBIOLOGY - GENERAL ORDERABLES Final Result Performing Organization Address [facility]/ZIP Co de Phone Number [facility] [address] [place] [phone] * Hepatitis C Viral RNA, Quantitative, Real-Time PCR (03/18/2024 2:05 PM EDT) Hepatitis C Viral Load <15 NOT DETECTED NOT DETECTED IU/mL [facility] HCV Log PCR <1.18 NOT DETECTED NOT DETECTED Log IU/mL [facility] Comment:For additional infor felton, please refer tohttp://education.[employer]/faq/IPT72e7(This link is being provided for informational/educational purposes only.)THIS TEST WAS PERFORMED AT:[employer] [place] [phone] DEL CID MD Blood 03/18/2024 2:05 PM EDT 03/18/2024 2:05 PM EDT us Petra Wiley TRUMPET TEACHER LAB BLOOD ORDERABLES Final Res ult Performing Organization Address [facility]/ZIP Co de Phone Number [facility] [address] [place] [address] [phone] * HIV-1/2 Antigen and Antibodies, Fourth Generation, with Reflexes (03/18/2024 2:05 PM EDT) HIV AB/AG Nonreactive Nonreactive [facility] Comment:HIV-1 p24 Ag and/or HIV-1/HIV-2 Ab not detected.A test result that is nonreactive does not exclude thepossibility of exposure to or infection with HIV-1 and/orHIV-2. Nonreactive results in this assay for individualswith prior exposure to HIV-1 and/or HIV-2 may be due toantigen and antibody levels that are below the limit ofdetection of this assay.The [employer] HIV Ag/Ab Combo assay result andsupplemental assay results should be interpreted inconjunction with the patient's clinical presentation,history and other laboratory results. If the results areinconsistent with clinical evidence, additional testing issuggested to confirm the result. Blood Venous blood specimen / Unknown 03/18/2024 2:05 PM EDT 03/18/2024 2:05 PM EDT us Petra Wiley TRUMPET TEACHER LAB BLOOD ORDERABLES Final Res ult [facility] [address] [place] [phone] * (ABNORMAL) Lipid Panel, Standard (03/18/2024 2:05 PM EDT) Triglycerides 100 <150 mg/dL [facility] Comment:Desirable Triglyceri de: less than 150 mg/dLBorderline High Triglyceride 150-199 mg/dLHigh Triglyceride: 200-499 mg/dLVery High Triglyceride: greater than or equal to 5OO mg/dL Cholesterol 200(H) <200 mg/dL [facility] Comment:Desirable Cholestero l: less than 200 mg/dLBorderline High Cholesterol: 200-239 mg/dLHigh Cholesterol: greater than 239 mg/dL LDL Cholesterol Calculated 128(H) <100 mg/dL [facility] Comment:Desirable LDL: less than 100 mg/dLNear Optimal/Above Optimal LDL: 110- 129 mg/dLBorderline High LDL: 130-159 mg/dLHigh LDL: 160-189 mg/dLVery High LDL: greater than or equal to 190 mg/dL HDL Cholesterol 52 >40 mg/dL [facility] Comment:Desirable HDL: great er than 40 mg/dL Note: This HDL assay may give artificially low results in patients with liver disease. Blood Venous blood specimen / Unknown 03/18/2024 2:05 PM EDT 03/18/2024 2:05 PM EDT Petra Wiley TRUMPET TEACHER LAB BLOOD ORDERABLES Final Res ult [facility] [address] [place] [phone] [phone] * Pap Smear (11/12/2019 12:00 AM EDT) Swab Historical Provider MD LAB CYTOLOGY ORDERABLES F inal Result EXTERNAL LAB from Last 3 Months or Most Recently Relevant to Health Maintenance Insurance [facility] C3 DENTAL-[facility] MEDICAID STAND ADULT Care Teams Acreage Reporter Relationship Specialty Start Date End Date Petra Wiley FNP [address] [place] [address] PCP - General Family Medicine 03/17/24 Willard Waters [address] [place] [address] Rheumatology 05/17/24KesslerSeptember [address] [facility] 3rd [place] [address] Gastroenterology 05/17/24 Juan Sandra MD [address] [place] [address] Hematology and Oncology 05/17/24 Brigid Guy, YAIMA [address] [place] [address] Urology 05/17/24 Vicente Mooney MD [address] [place] [address] [address] [place] [address] Obstetrics and Gynecology 05/17/24 Beth Rai MD [address] [place] [address] Neurology 05/17/24 Michell Espinoza [address]rd [place] [address] Cardiology 05/17/24 Shelia Zheng Security Program ManagerLock Up Worker 09/26/23
[2024-10-12 12:17] LABS: HPV Genotype 16 Negative (Negative); HPV Genotype 18 Negative (Negative); HPV High Risk Negative (Negative)
== END 2024-10-06 15:08 | disposition home or self-care (01) ==
LOC: HO.LNP 15:07
PROVIDERS: Visit Provider Obstetrics & Gynecology
DX: N93.9 Abnormal uterine and vaginal bleeding, unspecified (principal)
CPT/HCPCS: 87626; 88175; 88305

== ENCOUNTER 2024-10-08 16:05 | Outpatient (REF) | payer MEDICAID, SELFPAY ==
[2024-10-08 17:48] LABS: Hemoglobin 9.4 g/dl (12.0-16.0); Mean Corpuscular HGB Conc 30.3 g/dl (31.0-35.0); Mean Corpuscular Hemoglobin 23.6 pg (27.0-33.0); Mean Corpuscular Volume 77.9 fL (80.0-98.0); Mean Platelet Volume 12.2 fL (9.4-12.3); Platelet Count 371 X10*3/uL (160-400); Red Blood Count 3.98 X10*6/uL (4.20-5.50); Red Cell Distribution Width 15.7 % (11.0-16.0); White Blood Count 9.7 X10*3/uL (4.8-10.8)
--- OUTSIDE RECORDS SUMMARY | 2024-10-08 18:31 | XMS_ITS | Encounter Summary ---
Author Organization [employer] Address [address] [facility] 7t [place] [address] Care Team Providers Care Engineering Technical Writer Name Role Phone Petra Wiley LEAD TANK MECHANIC Primary Care Provider Willard Waters Unavailable [phone] KesslerSeptember Unavailable Juan Sandra MD Unavailable [phone] Brigid Guy NP Unavailable Vicente Mooney MD Unavailable Beth Rai MD Unavailable Michell Espinoza Unavailable Reason for Visit * Reason Onset Date Comments Results 10/06/2024 Encounter Details Date Type Department Care Team ([facility] st Contact Info) Description 10/06/2024 Telephone [facility] [address] [place], [place] [phone] Sylvia Lemons MD [address] [place], [place] [phone] Results Social History Tobacco Use Types Packs/Day [...] to pt. No answer. Voicemail left with certified addiction counselor. ----- Message from Sylvia Lemons MD sent at 10/06/2024 2:08 PM EDT ----- Please notify pt that her Hg is once again below 10,, she should resume iron supplementation. Ty! Cristo covering for Isaiasen documented in this encounter Plan of Treatment Upcoming Encounters Date Type Department Care Team (Late st Contact Info) Description 10/27/2024 2:30 PM EDT Office Visit [facility] ADULT DENTAL [address] [place] [address] Venkat Barreto DDS [address] [place] [address] 11/04/2024 11:15 AM EDT Office Visit [facility] MED[facility] [address] [place] [address] Petra Wiley FNP [address] [place] [address] 11/25/2024 9:15 AM EDT Office Visit [facility] [address] [place] [address] Petra Wiley FNP [address] [place] [address] 12/01/2024 11:15 AM EDT Office Visit [facility] [address] [place] [address] Mundo Krueger MD [address] [place] [address] 01/18/2025 3:00 PM EDT Office Visit [facility] [address] [place] [address] Sanaz Nelson documented as of this encounter Visit Diagnoses Not on filedocumented in this encounter Additional Health Concerns Assessment Noted Time PHQ-9 Depression Total Score: 13 024 3:11 PM EDT documented as of this encounter Care Teams Engineering Technical Writer Relationship Specialty Start Date End Date Petra Wiley FNP [address] [place] [address] PCP - General Family Medicine 03/17/24 Willard Waters [address] Rheumatology 05/17/24 Sumaya Kessler [address] [place] [address] 3rd [place] [address] Gastroenterology 05/17/24 Juan Sandra MD [address] [place] [address] Hematology and Oncology 05/17/24 Brigid Guy NP [address] [place] [address] Urology 05/17/24 Vicente Mooney MD [address] [place] [address] [address] [place] [address] Obstetrics and Gynecology 05/17/24 Beth Rai MD [address] [place] [address] Neurology 05/17/24 Michell Espinoza [address] [facility] 3rd [place] [address] Cardiology 05/17/24 Shelia Zheng Sawmill SupervisorSection Forest Fire Warden 09/26/23 documented as of this encounter
--- OUTSIDE RECORDS SUMMARY | 2024-10-08 18:31 | XMS_ITS | Encounter Summary ---
Author Organization [employer] Address [address] [facility] [address] 7t [place] [address] Care Team Providers Care Fabric Worker Foreman Name Role Phone Petra Wiley BRAKE REPAIRER Primary Care Provider [phone] Willard Waters Unavailable [phone] September Unavailable Juan Sandra MD Unavailable [phone] Brigid Guy NP Unavailable Vicente Mooney MD Unavailable Beth Rai MD Unavailable [phone] Michell Espinoza Unavailable Encounter Details Date Type Department Care Team (Latest Contact Info) Description 10/08/2024 Travel Social History Tobacco Use Types Packs/Day [...] 10/27/2024 2:30 PM EDT Office Visit [facility] ADULT DENTAL [address] [place] [address] Venkat Barreto DDS [address] [place] [address] 11/04/2024 11:15 AM EDT Office Visit [facility] MEDICINE [address] [place] [address] Petra Wiley FNP 505 [place] [address] 11/25/2024 9:15 AM EDT Office Visit [facility] [address] [place] [address] Petra Wiley FNP 505 [place] [address] 12/01/2024 11:15 AM EDT Office Visit [facility] [address] [place] [address] Mundo Krueegr MD [address] [place] [address] 01/18/2025 3:00 PM EDT Office Visit [facility] ADULT D[facility]AL [address] [place] [address] Sanaz Nelson documented as of this encounter Visit Diagnoses Not on filedocumented in this encounter Additional Health Concerns Assessment Noted Time PHQ-9 Depression Total Score: 13 024 3:11 PM EDT documented as of this encounter Care Teams Fabric Worker Foreman Relationship Specialty Start Date End Date Petra Wiley FNP [address] [place] [address] PCP - General Family Medicine 03/17/24 Willard Waters [address] [place] [address] Rheumatology 05/17/24 Victoria Sumaya [address] [place] [address] 3[address] [place] [address] Gastroenterology 05/17/24 Juan Sandra MD [address] [place] [address] Hematology and Oncology 05/17/24 Brigid Guy NP 10 [facility] [address] [place] [address] Urology 05/17/24 Vicente Mooney MD [address] [place] [address] [address] [place] [address] Obstetrics and Gynecology 05/17/24 Beth Rai MD [address] [place] [address] 140 [place] [address] Neurology 05/17/24 Michell Espinoza NPI: [id number] [place] [address] 3rd [place] [address] Cardiology 05/17/24 Shelia Zheng Set O Type OperatorHydraulic Corrugating Machine Operator 09/26/23 documented as of this encounter
--- OUTSIDE RECORDS SUMMARY | 2024-10-08 18:31 | XMS_ITS | Encounter Summary ---
Author Organization [employer] Address [address] [place] [address] 7t [place] [address] Care Team Providers Care Aeronautical Test Engineer Name Role Phone Petra Wiley SOFTWARE PROGRAMMER Primary Care Provider Willard Waters Unavailable [phone] KesslerSeptember Unavailable Juan Sandra MD Unavailable [phone] Brigid Guy NP Unavailable Vicente Mooney MD Unavailable Beth Rai MD Unavailable Michell Espinoza Unavailable Reason for Visit * Reason Comments Vaginal Bleeding Encounter Details Date Type Department Care Team ([facility] Contact Info) Description 10/08/2024 3:30 PM EDT Office Visit [facility] [address] [place], [place] [phone] Mundo Krueger MD [address] [place], [place] [phone] Vaginal bleeding (Primary Dx); Gastroesophageal reflux disease without esophagitis Social History Tobacco Use Types Packs/Day Years [...] is your housing situation today? I have candidoyoselin martinez 04/16/[address] you [...] Sign Reading Time Taken Comments Blood Pressure 113/69 10/08/2024 3:44 PM EDT Pulse 82 10/08/2024 3:44 PM EDT Temperature 36.7 ??C (98 ??F) 10/08/2024 3:44 PM EDT Respiratory Rate 20 10/08/2024 3:44 PM EDT Oxygen Saturation 99% 10/08/2024 3:44 PM EDT Inhaled Oxygen Concentration - - Weight 68.5 kg (151 lb) 10/08/2024 3:44 PM EDT Height 149.9 cm (4' 11 ) 10/08/2024 3:44 PM EDT Body Mass Index 30.5 10/08/2024 3:44 PM EDT documented in this encounter Progress Notes * Mundo Krueger MD - 10/08/2024 3:30 PM EDT KAILA Anaya is a 39 y.o. female who presents for Vaginal Bleeding. HPI Patient is status post Mirena IUD insertion done October 06, 2024. All the contraindications were excluded. All adverse effects were discussed with the patient including activation of menstrual bleeding pattern, unscheduled uterine bleeding, decreased uterine bleeding, increased schedule uterine bleeding, menorrhagia, genital discharge, vulvovaginitis etc. admits less vaginal bleed since placement of the IUD. Diagnosed with anemia. Patient is mostly concerned about the worsening of her anemia. Currently on iron supplementation that she uses once a day but reports having epigastric pain on the pill with dark stools. Also complains of cold intolerance with joint pains. Patient Active Problem List Diagnosis Fibromyalgia Healthcare [...] nutritional disorder History of musculoskeletal disorder Nephrolithiasis Erythromelalgia (CMS/HCC) Polyarthralgia Allergies Allergen Reactions Morphine Other reaction(s): Altered Heart Rate, Trouble Breathing, chest pain Tramadol Other reaction(s): Vomit Celexa [Citalopram] Duloxetine Other reaction(s): GI Problems Duloxetine Hcl Iodinated Contrast Media Current Outpatient Medications on File Prior to Visit Medication Sig Dispense Refill acetaminophen (Tylenol) 500 [...] each 2 times daily. 1 kit 0 swvrfuycuc-qfhqtvigxhsba-rwzwlhap 50-325-40 MG tablet TOME ADRY TABLETA CADA OCHO HORAS CUANDO SEA NECESARIO FOR 30 DAYS cholecalciferol (Vitamin D3) 25 MCG (1000 UT) tablet TAKE 1 TABLET (25 MCG) BY MOUTH ONCE PER DAY. 90 tablet 3 Creon 72183-567503 units capsule delayed-release particles capsule TOME ADRY [...] mouth Once per day. 90 tablet 3 fluticasone furoate (Arnuity Ellipta) 100 MCG/ACT inhaler [...] times daily for 10 days. 40tablet 0 Misc. Devices (Pulse Oximeter) misc Use to check oxygen saturation as needed. Leave on finger for at least 30 seconds before looking at reading. (Normal above 95%) 1 each 0 nabumetone (Relafen) 750 MG tablet Take 1 tablet (750 mg) by mouth if needed in the morning and at bedtime (pain). PLEASE SEE ATTACHED FOR DETAILED DIRECTIONS 60 tablet 2 eigbjknd-xbnyloklp-kztCREWObdovp 0.1 % ointment Apply small amount to left lower eyelid twice a dayfor 1 week. 3.5 g 0 pregabalin (Lyrica) 75 MG capsule Take 1 capsule (75 mg) by mouth at bedtime. 30 capsule 1 propranolol (Inderal) 20 MG tablet TAKE 1 [...] (one) time per week.2 mL 2 No current facility-administered medications on file prior to visit. Review of Systems Constitutional: Negative for appetite change, chills and diaphoresis. Respiratory: Negative for cough, choking and chest tightness. Cardiovascular: Negative for leg swelling. Gastrointestinal: Positive for abdominal pain. Negative for constipation, diarrhea, nausea and rectal pain. OBJECTIVE BP 113/69 (BP Location: Left arm, Patient Position: Sitting, BP Cuff Size: Adult) Pulse 82 Temp98 ??F (36.7 ??C) (Oral) Resp 20 Ht 4' 11 (1.499 m) Wt 151 lb (68.5 kg) SpO2 99% BMI 30.50 kg/m?? There were no vitals filed for this visit. Physical Exam Constitutional: General: She is not in acute distress. Appearance: Normal appearance. She is not ill-appearing, toxic-appearing or diaphoretic. Cardiovascular: Rate and Rhythm: Normal rate. Pulmonary: Effort: Pulmonary effort is normal. Abdominal: Tenderness: There is abdominal tenderness. Comments: Mild epigastric tenderness Neurological: Mental Status: She is alert. Assessment/Plan Assessment/Plan Diagnoses and all orders for this visit: Vaginal bleeding Comments: Improving CBC ordered. Patient will be contacted with results The office of Dr. Mcneil will be contacted to request a sooner appointment and to find out if patient is a candidate for IV infusion of iron Orders: - CBC; Future - TSH W/Reflex to FT4; Future Gastroesophageal reflux disease without esophagitis Comments: Follows up with GI. Patient is already on Dexilant and famotidine. Will add sucralfate. Aware to communicate to the office if no improvement in the next 48 hours. Orders: - sucralfate (Carafate) 1 g tablet; Take 1 tablet (1 g) by mouth before breakfast, before lunch, before evening meal, and at bedtime. documented in this encounter Plan of Treatment Upcoming Encounters Date Type Department Care Team (Late st Contact Info) Description 10/27/2024 2:30 PM EDT Office Visit [facility] ADULT DENTAL [address] [place] [address] Venkat Barreto DDS [address] [place] [address] 11/04/2024 11:15 AM EDT Office Visit [facility] MEDICINE [address] [place] [address] Petra Wiley FNP 505 [place] [address] 11/25/2024 9:15 AM EDT Office Visit [address] [address] Petra Wiley FNP 505 [place] [address] 12/01/2024 11:15 AM EDT Office Visit [facility] [address] [place] [address] Mundo Krueger MD [address] [place] [address] 01/18/2025 3:00 PM EDT Office Visit [facility] [address] [place] [address] Sanaz Nelson Scheduled Orders Name Type Priority Associated Diagnoses Orde r Schedule TSH W/Reflex to FT4 Lab Routine Vaginal bleeding Expected: 10/08/2024 (Approximate), Expires: 10/08/2025 documented as of this encounter Procedures Procedure Name Priority Date/Time Associated Diagnosis Comments CBC Routine 10/08/2024 4:07 PM EDT Vaginal bleeding documented in this encounter Results * (ABNORMAL) CBC (10/08/2024 4:07 PM EDT) White Blood Count 9.7 4.8 - 10.8 X10*3/uL [facility] Red Blood Count 3.98(L) 4.20 - 5.50 X10*6/uL [facility] Hemoglobin 9.4(L) 12.0 - 16.0 g/dl [facility] Hematocrit 31.0(L) 37.0 - 47.0 % [facility] Mean Corpuscular Volume 77.9(L) 80.0 - 98.0 fL [facility] Mean Corpuscular Hemoglobin 23.6(L) 27.0 - 33.0 pg [facility] Mean Corpuscular HGB Conc 30.3(L) 31.0 - 35.0 g/dl [facility] Red Cell Distribution Width 15.7 11.0 - 16.0 % [facility] Platelet Count 371 160 - 400 X10*3/uL [facility] Mean Platelet Volume 12.2 9.4 - 12.3 fL [facility] NRBC Pct Auto 0.0 0.0 - 0.2 /100WBC [facility] NRBC Abs Auto 0.000 0.0 - 0.012 X10*3/uL [facility] Blood Venous blood specimen / Unknown 10/08/2024 4:07 PM EDT 10/08/2024 5:43 PM EDT us Mundo Krueger MD LAB BLOOD ORDERABLES Final Result [facility] [address] [place] [phone] documented in this encounter Visit Diagnoses Diagnosis Vaginal bleeding- Primary Other specified noninflammatory disorder of vagina Gastroesophageal reflux disease without esophagitis Esophageal reflux documented in this encounter Additional Health Concerns Assessment Noted Time PHQ-9 Depression Total Score: 13 024 3:11 PM EDT documented as of this encounter Care Teams Aeronautical Test Engineer Relationship Specialty Start Date End Date Petra Wiley FNP [address] [place] [address] PCP - General Family Medicine 03/17/24 Willard Waters [address] [place] [address] Rheumatology 05/17/24September [address] [address] Gastroenterology 05/17/24 Juan Sandra MD [address] [place] [address] Hematology and Oncology 05/17/24 Brigid Guy NP 10 [facility] [address] [place] [address] Urology 05/17/24 Vicente Mooney MD [address] [place] [address] [address] [place] [address] Obstetrics and Gynecology 05/17/24 Beth Rai MD [address] [place] [address] 140 [place] [address] Neurology 05/17/24 Michell Espinoza [address] [address] Cardiology 05/17/24 [facility] Maintenance SpecialistManufacturing Engineer Assembly 09/26/23 documented as of this encounter
--- OUTSIDE RECORDS SUMMARY | 2024-10-08 18:31 | XMS_ITS | Encounter Summary ---
Author Organization [employer] Address 75 [facility] 7t [place] [address] Care Team Providers Care Site Foreman Name Role Phone Petra Wiley IT PROJECT MANAGER Primary Care Provider Willard Waters Unavailable [phone] Victoria September Unavailable Juan Sandra MD Unavailable [phone] Brigid Guy NP Unavailable Vicente Mooney MD Unavailable eBth Rai MD Unavailable Michell Espinoza Unavailable Reason for Visit * Reason Onset Date Comments Results 10/08/2024 Medication Question 10/08/2024 Encounter Details Date Type Department Care Team (Late st Contact Info) Description 10/08/2024 Telephone [facility]ED[facility] [address] [place], [place] [phone] Kenisha Torres MD 230 [place], [place] [phone] Results; Medication Question Social History Tobacco Use Types Packs/Day Years [...] Telephone Encounter - Akanksha Gusman RN - 10/08/2024 10:24 AM EDT TC to pt using senior oracle database developer. RN asked pt if she was taking her iron everyday. Pt confirmed that she was and that she had an appointment with Dr. Krueger to talk to him about this. RN told pt to keep appointment. Pt verbalized understanding and agreement with plan. documented in this encounter Plan of Treatment Upcoming Encounters Date Type Department Care Team (Late st Contact Info) Description 10/27/2024 2:30 PM EDT Office Visit [facility] ADULT D[facility] [address] [place] [address] Mary Lou VenkatBECKIE valdezS [address] [place] [address] 11/04/2024 11:15 AM EDT Office Visit [facility] [address] [place] [address] Petra Wiley FNP 505 [place] [address] 11/25/2024 9:15 AM EDT Office Visit [address] [address] Petra Wiley FNP 505 [place] [address] 12/01/2024 11:15 AM EDT Office Visit [facility] 505 [place] [address] Mundo Krueger MD 505 [place] [address] 01/18/2025 3:00 PM EDT Office Visit [facility] ADULT DENTAL 505 [place] [address] Sanaz Nelson documented as of this encounter Visit Diagnoses Not on filedocumented in this encounter Additional Health Concerns Assessment Noted Time PHQ-9 Depression Total Score: 13 024 3:11 PM EDT documented as of this encounter Care Teams Site Foreman Relationship Specialty Start Date End Date Petra Wiley FNP [address] [place] [address] PCP - General Family Medicine 03/17/24 Willard Waetrs [address] Rheumatology 05/17/24 Sumaya Kessler [address] 3rd [place] [address] Gastroenterology 05/17/24 Juan Sandra MD [address] [place] [address] Hematology and Oncology 05/17/24 Brigid Guy NP 10 [facility] [address] [place] [address] Urology 05/17/24 Vicente Mooney MD [address] [place] [address] [address] [place] [address] Obstetrics and Gynecology 05/17/24 Beth Rai MD [address] [place] [address] Neurology 05/17/24 Michell Espinoza 11 [facility] 3rd [place] [address] Cardiology 05/17/24 Shelia Zheng Medical Information SpecialistHand Cloth Folder 09/26/23 documented as of this encounter
--- OUTSIDE RECORDS SUMMARY | 2024-10-08 18:31 | XMS_ITS | Encounter Summary ---
Author Organization [employer] Address 75 [facility] 7t [place] [address] Care Team Providers Care Associate Sales Representative Name Role Phone Jennie Murray MD Primary Care Provider [phone] Petra Wiley Primary Care Provider [phone] Willard Waters Unavailable [phone] KesslerSeptember Unavailable Juan Sandra MD Unavailable [phone] Brigid Guy NP Unavailable Vicente Mooney MD Unavailable Beth Rai MD Unavailable Michell Espinoza Unavailable Encounter Details Date Type Department Care Team (Latest Contact Info) Description 09/12/2020 Abstract [facility] CONVERSIONS Dental, Provider, DDS Social [...] Description 10/27/2024 2:30 PM EDT Office Visit [facility] ADULT DENTAL [address] [place], [place] [phone] Venkat Barreto DDS [address] [place], [place] [phone] 11/04/2024 11:15 AM EDT Office Visit [facility] MEDICINE 230 [place] [address] Petra Wiley FNP 505 [place] [address] 11/25/2024 9:15 AM EDT Office Visit [facility] MEDICINE [address] [place] [address] Petra Wiley FNP 505 [place] [address] 12/01/2024 11:15 AM EDT Office Visit [facility] 505 [place] [address] Mundo Krueger MD 505 [place] [address] 01/18/2025 3:00 PM EDT Office Visit [facility] ADULT DENTAL [address] [place] [address] Sanaz Nelson documented as of this encounter Visit Diagnoses Not on filedocumented in this encounter Care Teams Associate Sales Representative Relationship Specialty Start Date End Date Jennie Murray MD [address] [place] [address] PCP - General Family Medicine 06/23/13 03/16/24 Petra Wiley FNP [address] [place] [address] PCP - General Family Medicine 03/17/24 Willard Waters [address] [place] [address] Rheumatology 05/17/24 Sumaya Kessler [address] 3rd [place] [address] Gastroenterology 05/17/24 Juan Sandra MD [address] [place] [address] Hematology and Oncology 05/17/24 Brigid Guy NP [address] [place] [address] Urology 05/17/24 Vicente Mooney MD [address] [place] [address] [address] [place] [address] Obstetrics and Gynecology 05/17/24 Beth Rai MD [address] [place] [address] [place] [address] Neurology 05/17/24 Michell Espinoza 11 [facility] 3rd [place] [address] Cardiology 05/17/24 Shelia Zheng Motel Front Desk AttendantCritical Care Unit Nurse 09/26/23 documented as of this encounter
--- OUTSIDE RECORDS SUMMARY | 2024-10-08 18:31 | XMS_ITS | Encounter Summary ---
Author Organization [facility] Address [address] [place] [address] Care Team Providers Care Bit Setter Name Role Phone Petra Wiley Primary Care Provider [phone] Reason for Referral * Surgical (Routine) - Pending Review Specialty Diagnoses / Procedures Referred By Mehreen linares Referred To Contact General Surgery Diagnoses Subcutaneous mass of right upper extremity Subcutaneous mass of abdominal wall [facility] Physician Referral Services [address] [place] [address] [facility] [address] [place] [address] Phone: tel: fax: Referral ID Status Reason Start Date Expiration Date Visits Requested Visits Authorized [id number] Pending Review Specialty Services Required 06/26/2024 12/26/2025 6 6 Encounter Details Date Type Department Care Team (Latest Contact Info) Description 06/26/2024 Transcribe Orders [facility] Physician Referral Services [address] [place] [address] Petra Wiley 230 [place] [address] Subcutaneous mass of right upper extremity (Primary [...] Description 11/02/2024 2:20 PM EDT Office Visit [facility] Rhe[facility]ology Clinic [address] [place] [address] Patient Safety Attendant: Newton Rangel DO 119 [facility] [place] [address] 02/09/2025 10:15 AM EDT Office Visit [facility] D[facility]atology [facility] 4th Floor 281 [facility], [place] [address] Patient Safety Attendant: Hipolito Lei MD [address] [place] [address] Scheduled Referrals Name Type Priority Associated Diagnoses Order Schedule Ambulatory referral to General Surgery Outpatient Referral Routine Subcutaneous mass of right upper extremity Subcutaneous mass of abdominal wall Expected: 06/26/2024, Expires: 12/24/2024 documented as of this encounter Visit Diagnoses Diagnosis Subcutaneous mass of right upper extremity- Primary Subcutaneous mass of abdominal wall documented in this encounter Care Teams Bit Setter Relationship Specialty Start Date End Date Petra Wiley [address] [place] [address] PCP - General Family Medicine 03/19/24 documented as of this encounter
--- OUTSIDE RECORDS SUMMARY | 2024-10-08 18:31 | XMS_ITS | Encounter Summary ---
Author Organization [employer] Address 75 [facility] 7t [place] [address] Care Team Providers Care Neuropsychology Director Name Role Phone Jennie Murray MD Primary Care Provider Petra Wiley Primary Care Provider [phone] Willard Waters Unavailable [phone] Kessler, September Unavailable Juan Sandra MD Unavailable [phone] Brigid Guy NP Unavailable Vicente Mooney MD Unavailable Beth Rai MD Unavailable Michell Espinoza Unavailable Reason for Visit * Reason Onset Date Comments Appointment Request 12/25/2023 Encounter Details Date Type Department Care Team (Late st Contact Info) Description 12/25/2023 Telephone [facility] MEDICINE 230 [place], [place] [phone] Jennie Murray MD [address] [place], [place] [phone] Appointment Request Social History Tobacco Use Types [...] 1:07 PM EDT Tc from Patrice, personal caregiver with [facility], calling to schedule appt for pt. Pt is awaiting transfer pt appt with Dr. Wiley in which information writer attempted to schedule but found no availability. Please contact Patrice at [phone]. documented in this encounter Plan of Treatment Upcoming Encounters Date Type Department Care Team (Late st Contact Info) Description 10/27/2024 2:30 PM EDT Office Visit [facility] ADULT DENTAL 230 [place] [address] Venkat Barreto DDS 230 [place] [address] 11/04/2024 11:15 AM EDT Office Visit [facility] MEDICINE 230 [place], [place] [phone] Petra Wiley FNP 505 [place] [address] 11/25/2024 9:15 AM EDT Office Visit [facility] MED[facility] 230 [place] [address] Petra Wiley FNP 505 [place] [address] 12/01/2024 11:15 AM EDT Office Visit [facility] 505 [place] [address] Mundo Krueger MD 505 [place] [address] 01/18/2025 3:00 PM EDT Office Visit [facility] ADULT DENTAL 505 [place] [address] Sanaz Nelson documented as of this encounter Visit Diagnoses Not on filedocumented in this encounter Additional Health Concerns Assessment Noted Time PHQ-9 Depression Total Score: 0 07/04/19 23 3:01 PM EST documented as of this encounter Care Teams Neuropsychology Director Relationship Specialty Start Date End Date Jennie Murray MD 230 [place] [address] PCP - General Family Medicine 06/23/13 03/16/24 Petra Wiley FNP 230 [place] [address] PCP - General Family Medicine 03/17/24 Willard Waters [address] [place] [address] Rheumatology 05/17/24 Sumaya Kessler [address] 3rd [place] [address] Gastroenterology 05/17/24 Juan Sandra MD [address] [place] [address] Hematology and Oncology 05/17/24 Brigid Guy NP [address] [place] [address] Urology 05/17/24 Vicente Mooney MD [address] [place] [address] [address] [place] [address] Obstetrics and Gynecology 05/17/24 Beth Rai MD [address] [place] [address] [address] Neurology 05/17/24 Michell Espinoza 11 [facility] 3rd [place] [address] Cardiology 05/17/24 Shelia Zhegn Clamp RemoverNursing Clerk 09/26/23 documented as of this encounter
--- OUTSIDE RECORDS SUMMARY | 2024-10-08 18:31 | XMS_ITS | Encounter Summary ---
Author Organization [employer] Address [address] [facility] 7t [place] [address] Care Team Providers Care Plate Painter Apprentice Name Role Phone Petra [place] COMMUNITY RELATIONS ASSISTANT Primary Care Provider [phone] Willard Waters Unavailable [phone] September Unavailable Juan Sandra MD Unavailable [phone] Brigid Guy NP Unavailable Vicente Mooeny MD Unavailable Beth Rai MD Unavailable Michell [...] Office Visit [facility] ADULT DENTAL [address] [place] [address] Venkat Barreto DDS [address] [place] [address] 11/04/2024 11:15 AM EDT Office Visit [facility] MEDICINE [address] [place] [address] Petra [place] FNP 505 [place] [address] 11/25/2024 9:15 AM EDT Office Visit [facility] MEDICINE [address] [facility], [place] [phone] Petra [place] FNP [address] [place], [place] [phone] 12/01/2024 11:15 AM EDT Office Visit [facility] MED & PEDS 505 [place], [place] [phone] Mundo Krueger MD 505 [place], [place] [phone] 01/18/2025 3:00 PM EDT Office Visit [facility] ADULT DENTAL 505 [place], [place] [phone] Sanaz Nelson documented as of this encounter Procedures Procedure Name Priority Date/Time Associated Diagnosis Comments CHLAMYDIA/N. GONORRHOEAE RNA, TMA, UROGENITAL Routine 10/06/2024 1:10 PM EDT TSH W/REFLEX TO FT4 Routine 10/06/2024 1 :05 PM EDT CBC Routine 10/06/2024 1:05 PM EDT HCG, TOTAL, QN Routine 10/06/2024 1:05 PM EDT documented in this encounter Results * Chlamydia/N. Gonorrhoeae RNA, TMA, Urogenitial (10/06/2024 1:10 PM EDT) Pathologist [facility] [place] CT PCR NOT DETECTED Not Detect. [facility] Comment:A not detected test result does not exclude the possibilityof infection because test results can be affected byimproper specimen collection, concurrent antibiotic therapy,or the number of organisms in the specimen which may bebelow the sensitivity of the test. As with many diagnostictests, results from the Xpert CT/NG assay should beinterpreted in conjunction with other laboratory andclinical data available to the clinician.Xpert CT/NG performance has not been evaluated in patientsless than 14 years of age. The assay should not be used forthe evaluationof suspected sexual abuse or for other medico-legalindications. Additional testing is recommended in anycircumstance when false positive or false negative resultscould lead to adverse medical, social or psychologicalconsequences. NG PCR NOT DETECTED Not Detect. [facility] Comment:A not detected test result does not exclude the possibilityof infection because test results can be affected byimproper specimen collection, concurrent antibiotic therapy,or the number of organisms in the specimen which may bebelow the sensitivity of the test. As with many diagnostictests, results from the Xpert CT/NG assay should beinterpreted in conjunction with other laboratory andclinical data available to the clinician.Xpert CT/NG performance has not been evaluated in patientsless than 14 years of age. The assay should not be used forthe evaluationof suspected sexual abuse or for other medico-legalindications. Additional testing is recommended in anycircumstance when false positive or false negative resultscould lead to adverse medical, social or psychologicalconsequences. 10/06/2024 1:10 PM EDT 10/06/2024 3:37 PM EDT Narrative [facility] - 10/07/2024 10:11 AM EDT Vaginal us Generic External Data Provider LAB MICROBIOLOGY - GENERAL ORDERABLES Final Result [facility] [address] [place] [phone] * hCG, Total, Quantitative (10/06/2024 1:05 PM EDT) HCG Quantitative <2 mIU/mL [facility] Comment:Weeks post LMP Appro ximate hCG(Last Menstrual Period) Range (mIU/ml)3 - 4 weeks 9 - 1304 - 5 weeks 75 - 2,6005 - 6 weeks 850 - 20,8006 - 7 weeks 4000 - 100,2007 - 12 weeks 11,500 - 289,30849 - 16 weeks 18,300 - 137,46864 - 29 weeks (2nd trimester) 1,400 - 53,05038 - 41 weeks (3rd trimester) 940 - [...] ORDERAB LES Final Result Performing Organization Address [facility] Co de Phone Number [facility] [address] [place] [phone] * TSH with Reflex to Free T4 (10/06/2024 1:05 PM EDT) Pathologist [facility] [place] TSH reflex Free T4 1.37 0.32 - 4.0 uIU/mL [facility] 10/06/2024 1:05 PM EDT 10/06/2024 1:05 PM EDT Generic External Data Provider LAB BLOOD ORDERAB LES Final Result Performing Organization Address [facility] de Phone Number [facility] [address] [place] [phone] * (ABNORMAL) CBC (10/06/2024 1:05 PM EDT) White Blood Count 7.4 4.8 - 10.8 X10*3/uL [facility] Red Blood Count 4.01(L) 4.20 - 5.50 X10*6/uL [facility] Hemoglobin 9.7(L) 12.0 - 16.0 g/dl [facility] Hematocrit 31.2(L) 37.0 - 47.0 % [facility] Mean Corpuscular Volume 77.8(L) 80.0 - 98.0 fL [facility] Mean Corpuscular Hemoglobin 24.2(L) 27.0 - 33.0 pg [facility] Mean Corpuscular HGB Conc 31.1 31.0 - 35.0 g/dl [facility] Red Cell Distribution Width 15.6 11.0 - 16.0 % [facility] Platelet Count 327 160 - 400 X10*3/uL [facility] Mean Platelet Volume 10.9 9.4 - 12.3 fL [facility] NRBC Pct Auto 0.0 0.0 - 0.2 /100WBC [facility] NRBC Abs Auto 0.000 0.0 - 0.012 X10*3/uL [facility] 10/06/2024 1:05 PM EDT 10/06/2024 1:05 PM EDT us Generic External Data Provider LAB BLOOD ORDERAB LES Final Result [facility] [address] [place] [phone] documented in this encounter Visit Diagnoses Not on filedocumented in this encounter Additional Health Concerns Assessment Noted Time PHQ-9 Depression Total Score: 13 024 3:11 PM EDT documented as of this encounter Care Teams Plate Painter Apprentice Relationship Specialty Start Date End Date Petra [place] FNP [address] [place] [address] PCP - General Family Medicine 03/17/24 Willard Waters [address] [place] [address] Rheumatology 05/17/24September [address] 3rd [place] [address] Gastroenterology 05/17/24 Juan Sandra MD 5 [place] [address] Hematology and Oncology 05/17/24 Brigid Guy NP [address] [place] [address] Urology 05/17/24 Vicente Mooney MD [address] [place] [address] [address] [facility] [address] Obstetrics and Gynecology 05/17/24 Beth Rai MD [address] [place] [address] [place] [address] Neurology 05/17/24 Michell Espinoza [address] [place] [address] Drive 3rd [place] [address] Cardiology 05/17/24 Shelia Zheng Heel ShaverAssociate Professor Of Forestry 09/26/23 documented as of this encounter
--- OUTSIDE RECORDS SUMMARY | 2024-10-08 18:31 | XMS_ITS | Encounter Summary ---
Author Organization [employer] Address [address] [facility] 7t [place] [address] Care Team Providers Care Hull Grinder Name Role Phone Jennie Murray MD Primary Care Provider Petra [place] Primary Care Provider [phone] Willard Waters Unavailable [phone] Kessler, September Unavailable Juan Sandra MD Unavailable [phone] Brigid Guy NP Unavailable Vicente Mooney MD Unavailable Beth Rai MD Unavailable [phone] Michell Espinoza Unavailable Encounter Details Date Type Department Care Team (Latest Contact Info) Description 09/03/2018 Abstract [facility] [address] [place], [place] [phone] Venkat Barreto DDS [address] [place], [place] [phone] 11/04/2024 11:15 AM EDT Office Visit [facility] MEDICINE 230 [place] [address] Petra [place] FNP 505 [place] [address] 11/25/2024 9:15 AM EDT Office Visit [facility] MEDICINE [address] [place] [address] Petra [place] FNP [address] [place] [address] 12/01/2024 11:15 AM EDT Office Visit [facility] P[facility] [address] [place] [address] Mundo Krueger MD 505 [place] [address] 01/18/2025 3:00 PM EDT Office Visit [facility] ADULT DENTAL [address] [place] [address] Sanaz Nelson documented as of this encounter Visit Diagnoses Not on filedocumented in this encounter Care Teams Hull Grinder Relationship Specialty Start Date End Date Jennie Murray MD [address] [place] [address] PCP - General Family Medicine 06/23/13 03/16/24 Petra [place] FNP [address] [place] [address] PCP - General Family Medicine 03/17/24 Willard Waters [address] [place] [address] Rheumatology 05/17/24 Sumaya Kessler [address] 3rd [place] [address] Gastroenterology 05/17/24 Juan Sandra MD 575 [place] [address] Hematology and Oncology 05/17/24 Brigid Guy NP [address] [place] [address] Urology 05/17/24 Vicente Mooney MD [address] [place] [address] [address] [place] [address] Obstetrics and Gynecology 05/17/24 Beth Rai MD [address] [place] [address] Neurology 05/17/24 Michell Espinoza [address] [facility] 3rd [place] [address] Cardiology 05/17/24 Shelia hZeng Instrumentation TechnicianDatabase Technician 09/26/23 documented as of this encounter
--- OUTSIDE RECORDS SUMMARY | 2024-10-08 18:32 | XMS_ITS | Encounter Summary ---
Author Organization [employer] Address 75 [facility] 7t [place] [address] Care Team Providers Care Basketball Referee Name Role Phone Jennie Murray MD Primary Care Provider Petra [place] Primary Care Provider [phone] Willard Waters Unavailable [phone] Victoria September Unavailable Juan Sandra MD Unavailable [phone] Brigid Guy NP Unavailable Vicente Mooney [...] (Late st Contact Info) Description 08/21/2022 Telephone [facility] ADULT DENTAL 230 [place] [address] Venkat Barreto DDS 230 [place] [address] Appointment (Ambika Anaya 1985 Patient [...] Description 10/27/2024 2:30 PM EDT Office Visit [facility] ADULT DENTAL 230 [place] [address] Venkat Barreto DDS 230 [place] [address] 11/04/2024 11:15 AM EDT Office Visit [facility] MEDICINE 230 [place] [address] Petra [place] FNP 505 [place] [address] 11/25/2024 9:15 AM EDT Office Visit [facility] MEDICINE 230 [place] [address] Petra [place] FNP 505 [place] [address] 12/01/2024 11:15 AM EDT Office Visit [facility] 505 [place] [address] Mundo Krueger MD 505 [place] [address] 01/18/2025 3:00 PM EDT Office Visit [facility] ADULT DENTAL 505 [place] [address] Sanaz Nelson documented as of this encounter Visit Diagnoses Not on filedocumented in this encounter Additional Health Concerns Assessment Noted Time PHQ-9 Depression Total Score: 0 07/04/19 23 3:01 PM EST documented as of this encounter Care Teams Basketball Referee Relationship Specialty Start Date End Date Jennie Murray MD 230 [place] [address] PCP - General Family Medicine 06/23/13 03/16/24 Petra [place] FNP 230 [place] [address] PCP - General Family Medicine 03/17/24 Willard Waters [address] [place] [address] Rheumatology 05/17/24 Sumaya Kessler [address] [place] [address] Drive 3rd [place] [address] Gastroenterology 05/17/24 Juan Sandra MD [address] [place] [address] Hematology and Oncology 05/17/24 Brigid Guy NP [address] [place] [address] Urology 05/17/24 Vicente Mooney MD [address] [place] [address] [address] [place] [address] Obstetrics and Gynecology 05/17/24 Beth Rai MD [address] [place] [address] Dr [address] [place] [address] Neurology 05/17/24 Michell Espinoza [address] 3rd [place] [address] Cardiology 05/17/24 Shelia Zheng Electroless PlaterSnuff Grinder 09/26/23 documented as of this encounter
--- OUTSIDE RECORDS SUMMARY | 2024-10-08 18:32 | XMS_ITS | Encounter Summary ---
Author Organization [employer] Address 75 [facility] 7t [place] [address] Care Team Providers Care Preschool Teacher Assistant Name Role Phone Jennie Murray MD Primary Care Provider [phone] Petra [place] Primary Care Provider [phone] Willard Waters Unavailable [phone] Kessler, September Unavailable uJan Sandra MD Unavailable [phone] Brigid Guy NP Unavailable Vicente Mooney MD Unavailable Beth Rai MD Unavailable Michell Espinoza Unavailable Encounter Details Date Type Department Care Team (Late st Contact Info) Description 07/26/2022 Orders Only [facility] MED[facility]INE [address] [place] [address] Nelson Medrano MD [address] [place] [phone] Chronic idiopathic constipation (Primary Dx) Social History [...] [facility] [address] [place] [address] Venkat Barreto DDS [address] [place] [address] 11/04/2024 11:15 AM EDT Office Visit [facility] MED[facility]INE [address] [place] [address] Petra [place] FNP 505 [place] [address] 11/25/2024 9:15 AM EDT Office Visit [facility] MED[facility]INE [address] [place] [address] Petra [place] FNP 505 [place] [address] 12/01/2024 11:15 AM EDT Office Visit [facility] MED [facility] P[facility] 505 [place] [address] Mundo Krueger MD 505 [place] [address] 01/18/2025 3:00 PM EDT Office Visit [facility] ADULT DENTAL 505 [place] [address] Sanaz Nelson documented as of this encounter Visit Diagnoses Diagnosis Chronic idiopathic constipation- Primary Unspecified constipation documented in this encounter Additional Health Concerns Assessment Noted Time PHQ-9 Depression Total Score: 0 07/04/19 23 3:01 PM EST documented as of this encounter Care Teams Preschool Teacher Assistant Relationship Specialty Start Date End Date Jennie [place] MD 230 [place] [address] PCP - General Family Medicine 06/23/13 03/16/24 Petra [place] FNP [address] [place] [address] PCP - General Family Medicine 03/17/24 Willard Waters [address] Rheumatology 05/17/[address] [place] [address] 3rd [place] [address] Gastroenterology 05/17/24 Juan Sandra MD [address] [place] [address] Hematology and Oncology 05/17/24 Brigid Guy NP [address] [place] [address] Urology 05/17/24 Vicente Mooney MD [address] [place] [address] [address] [place] [address] Obstetrics and Gynecology 05/17/24 Beth Rai MD [address] [place] [address] 140 [place] [address] Neurology 05/17/24 Michell Espinoza [address] 3rd [place] [address] Cardiology 05/17/24 Shelia Zheng Germination WorkerAutocad 09/26/23 documented as of this encounter
--- OUTSIDE RECORDS SUMMARY | 2024-10-08 18:32 | XMS_ITS | Encounter Summary ---
Author Organization [employer] Address [address] [facility] [address] 7t [place] [address] Care Team Providers Care Case Supervisor Name Role Phone Petra [place] FACTORY REPRESENTATIVE Primary Care Provider [phone] Willard Waters Unavailable [phone] September Unavailable Juan Sandra MD Unavailable [phone] Brigid Guy NP Unavailable Vicente Mooney MD Unavailable Beth Rai MD Unavailable Michell Espinoza Unavailable Encounter Details Date Type Department Care Team (Late st Contact Info) Description 10/06/[address] [facility] [address] [place], [place] [phone] Sylvia Lemons MD 230 [place] [address] Social History Tobacco Use Types Packs/Day Years [...] Telephone Encounter - Lula Moreno RN - 10/07/2024 9:12 AM EDT TC to inform patient of lab results via packaging engineer. Pt. States she was at her JUNIOR WEB DESIGNER appointment yesterday for IUD insertion. Explained to patient that she is going to be sore for a few days and encouraged tylenol and ibuprofen as directed by JUNIOR WEB DESIGNER. Patient requesting appointment to be seen prior to her going out of town this weekend. Appointment scheduled to discuss iron supplements and bleeding. * Telephone Encounter - Brandi Saba RN - 10/06/2024 6:44 PM EDT TCx2PM placed to pt regarding message below per Dr. Lemons. No answer. Voice message left for pt to return call to [facility]. RN will forward to [facility] Team Nurses to make third attempt. ----- Message from Sylvia Lemons MD sent at 10/06/2024 2:08 PM EDT ----- Please notify pt that her Hg is once again below 10,, she should resume iron supplementation. Ty! Cristo covering for Phalen documented in this encounter Plan of Treatment Upcoming Encounters Date Type Department Care Team (Late st Contact Info) Description 10/27/2024 2:30 PM EDT Office Visit [facility] ADULT DENTAL 230 [place] [address] Venkat Barreto DDS [address] [place] [address] 11/04/2024 11:15 AM EDT Office Visit [facility] MEDICINE [address] [place] [address] Petra [place], FACTORY REPRESENTATIVE 505 [place] [address] 11/25/2024 9:15 AM EDT Office Visit [facility] MEDICINE [address] [place] [address] Petra [place], FACTORY REPRESENTATIVE 505 [place] [address] 12/01/2024 11:15 AM EDT [facility] Visit [facility] 505 [place] [address] Mundo Krueger MD 505 [place] [address] 01/18/2025 3:00 PM EDT Office Visit [facility] AD[facility] 505 [place] [address] Sanaz Nelson documented as of this encounter Visit Diagnoses Not on filedocumented in this encounter Additional Health Concerns Assessment Noted Time PHQ-9 Depression Total Score: 13 024 3:11 PM EDT documented as of this encounter Care Teams Case Supervisor Relationship Specialty Start Date End Date Petra [place] FNP 230 [place] [address] PCP - General Family Medicine 03/17/24 Willard Waters [address] Rheumatology 05/17/24September 11 [facility] 3rd [place] [address] Gastroenterology 05/17/24 Juan Sandra MD 575 [place] [address] Hematology and Oncology 05/17/24 Brigid Guy NP [address] [facility] [address] [place] [address] Urology 05/17/24 Vicente Mooney MD [address] [place] [address] [address] [place] [address] Obstetrics and Gynecology 05/17/24 Beth Rai MD [address] [place] [address] 140 [place] [address] Neurology 05/17/24 Michell Espinoza 11 [facility] 3rd [place] [address] Cardiology 05/17/24 Shelia Zheng Parking ManagerHand Candy Molder 09/26/23 documented as of this encounter
--- OUTSIDE RECORDS SUMMARY | 2024-10-08 18:32 | XMS_ITS | Referral Summary ---
Author Organization [facility] Address [address] [place] [address] Care Team Providers Care Verification Manager Name Role Phone Petra [place] Primary Care Provider [phone] Encounters Date Type Department Care Team Description 08/06/2024 Telephone [facility] [address]th [address] [place] [address], [place] [phone] Surface Supervisor: Khadra Westbrook Telephone Intake, Staff PAC Appt Request - New 08/01/2024 Results Follow-Up [facility] [address] [place] [address] Surface Supervisor: Newton Rangel DO 07/22/2024 12:00 PM EST Office Visit [facility] [address] [place] [address] Surface Supervisor: Newton Rangel DO Erythromelalgia (Primary Dx); Polyarthralgia [...] Description 11/02/2024 2:20 PM EDT Office Visit [facility] [address] [place] [address] Surface Supervisor: Newton Rangel DO [address] [facility] [place] [address] 02/09/2025 10:15 AM EDT Office Visit [facility] 4th Floor [address] [place] [address], [place] [address] Surface Supervisor: Hipolito Lei MD [address] [place] [address] Procedures * Due to [place] state law, this organization might not be sharing negative HIV tests. Procedure Name Priority Date/Time Associated Diagnosis Comments SEDIMENTATION RATE, AUTOMATED Routine 07/22/2024 1:56 PM EST Polyarthralgia PROTEIN ELECTROPHORESIS W/REFLEX TO IMMUNOFIXATION, SERUM Routine 07/22/2024 1:56 PM EST Polyarthralgia from Last 3 Months Results * Due to [place] [employer] law, this organization might not be sharing negative HIV tests. * Protein Electrophoresis w/Reflex to Immunofixation, Serum (07/22/2024 1:56 PM EST) Protein, Total 8.1 6.1 - 8.1 g/dL 07/28/2024 7:22 AM EST [facility] Albumin 4.8 3.8 - 4.8 g/dL 07/28/2024 7:22 AM EST [facility] Alpha 1 Globulin 0.3 0.2 - 0.3 g/dL 07/28/2024 7:22 AM EST [facility] Alpha 2 Globulin 0.7 0.5 - 0.9 g/dL 07/28/2024 7:22 AM EST [facility] Beta 1 Globulin 0.6 0.4 - 0.6 g/dL 07/28/2024 7:22 AM EST [facility] Beta 2 Globulin 0.5 0.2 - 0.5 g/dL 07/28/2024 7:22 AM EST [facility] Gamma Globulin 1.2 0.8 - 1.7 g/dL 07/28/2024 7:22 AM EST [facility] Interpretation See Comments 07/28/2024 7:22 AM EST [facility] Comment: Normal Serum Protein Electrophoresis Pattern. No abnormal protein bands (M-protein) detected. Blood Structure of peripheral vein / Unknown Venipuncture / Unknown 07/22/2024 1:56 PM EST 07/22/2024 2:37 PM EST Narrative [facility] - 07/28/2024 7:22 AM EST [facility] Received Date: Newton Yenifer DO LAB BLOOD ORDERABLES Final Res ult [address]rd [address], [place] [address], [place] [phone] [facility] [address], [place] [address], [place] [phone] * (ABNORMAL) Sedimentation Rate (07/22/2024 1:56 PM EST) Sed Rate 29(H) <20 mm/Hr mm/Hr 07/22/2024 2:52 PM EST [facility] Blood Structure of peripheral vein / Unknown Venipuncture / Unknown 07/22/2024 1:56 PM EST 07/22/2024 2:37 PM EST L[facility] DO LAB BLOOD ORDERABLES Final Res ult [facility] [address] [place] [address], [place] [address] [place] [id number] [facility] Care Teams Verification Manager Relationship Specialty Start Date End Date Petra [place] [address] [place] [address] PCP - General Family Medicine 03/19/24
--- OUTSIDE RECORDS SUMMARY | 2024-10-08 18:32 | XMS_ITS | Encounter Summary ---
Author Organization [employer] Address 75 [facility] 7t [place] [address] Care Team Providers Care Finished Metal Repairer Name Role Phone Jennie Murray MD Primary Care Provider Petra Wiley Primary Care Provider [phone] Willard Waters Unavailable [phone] KesslerSeptember Unavailable Juan Sandra MD Unavailable [phone] Brigid Guy NP Unavailable Vicente Mooney MD Unavailable Beth Rai MD Unavailable Michell Espinoza Unavailable Reason for Visit * Reason Onset Date Comments medication 09/19/2022 Encounter Details Date Type Department Care Team (Late st Contact Info) Description 09/19/2022 Telephone [facility] ADULT DENTAL [address] [place], [place] [phone] Venkat Barreto DDS [address] [facility] [place], [place] [phone] medication Social History Tobacco Use Types Packs/Day [...] Script was sent for Augementin to [facility] in [place]. Patient went in to picker and sorter load and unload script and they stated there was nothing [...] Visit [facility] ADULT DENTAL [address] [place] [address] Venkat Barreto, BECKIES [address] [place] [address] 11/04/2024 11:15 AM EDT Office Visit [facility] MEDICINE [address] [place] [address] Petra Wiley FNP 505 [place] [address] 11/25/2024 9:15 AM EDT Office Visit [facility] [address] [place] [address] Petra Wiley FNP 505 [place] [address] 12/01/2024 11:15 AM EDT Office Visit [facility] MED & PEDS 505 [place] [address] Mundo Krueger MD 505 [place] [address] 01/18/2025 3:00 PM EDT Office Visit [facility] ADULT DENTAL 505 [place] [address] Sanaz Nelson documented as of this encounter Visit Diagnoses Not on filedocumented in this encounter Additional Health Concerns Assessment Noted Time PHQ-9 Depression Total Score: 0 07/04/19 23 3:01 PM EST documented as of this encounter Care Teams Finished Metal Repairer Relationship Specialty Start Date End Date Jennie Murray MD 230 [place] [address] PCP - General Family Medicine 06/23/13 03/16/24 Petra Wiley FNP [address] [place] [address] PCP - General Family Medicine 03/17/24 Willard Waters [address] [place] [address] Rheumatology 05/17/24 Victoria Sumaya [address] 3rd [place] [address] Gastroenterology 05/17/24 Juan Sandra MD [address] [place] [address] Hematology and Oncology 05/17/24 Brigid Guy NP [address] [place] [address] Urology 05/17/24 Vicente Mooney MD [address] [place] [address] [address] [place] [address] Obstetrics and Gynecology 05/17/24 Beth Rai MD [address] [place] [address] [place] [address] Neurology 05/17/24 Michell Espinoza 11 [facility] 3rd [place] [address] Cardiology 05/17/24 Shelia Zheng Telephoto EngineerSocial Services Designee 09/26/23 documented as of this encounter
--- OUTSIDE RECORDS SUMMARY | 2024-10-08 18:32 | XMS_ITS | Encounter Summary ---
Author Organization [employer] Address 75 [facility] 7t [place] [address] Care Team Providers Care Pulpwood Cutter Name Role Phone Jennie Murray MD Primary Care Provider [phone] Petra Wiley Primary Care Provider [phone] Willard Waters Unavailable [phone] September Unavailable Juan Sandra MD Unavailable [phone] Brigid Guy NP Unavailable Vicente Mooney MD Unavailable Beth Rai MD Unavailable Michell Espinoza Unavailable Encounter Details Date Type Department Care Team (Late st Contact Info) Description 05/18/2022 Orders Only [facility] MEDICINE [address] [place] [address] Jennie Murray MD 505 [place], [place] [phone] Acute foot pain, unspecified laterality (Primary Dx) [...] Description 10/27/2024 2:30 PM EDT Office Visit [facility] ADULT DENTAL [address] [place] [address] Venkat Barreto DDS [address] [place] [address] 11/04/2024 11:15 AM EDT Office Visit [facility] [address] [place] [address] Petra Wiley FNP 505 [place] [address] 11/25/2024 9:15 AM EDT Office Visit [address] [address] Petra Wiley FNP [address] [place] [address] 12/01/2024 11:15 AM EDT Office Visit [facility] 505 [place] [address] Mundo Krueger MD 505 [place] [address] 01/18/2025 3:00 PM EDT Office Visit [facility] ADULT DENTAL [address] [place] [address] Sanaz Nelson documented as of this encounter Visit Diagnoses Diagnosis Acute foot pain, unspecified laterality- Primary documented in this encounter Care Teams Pulpwood Cutter Relationship Specialty Start Date End Date Jennie Murray MD [address] [place] [address] PCP - General Family Medicine 06/23/13 03/16/24 Petra Wiley FNP [address] [place] [address] PCP - General Family Medicine 03/17/24 Willard Waters [address] [place] [address] Rheumatology 05/17/24 Victoria Sumaya [address] [facility] 3rd [place] [address] Gastroenterology 05/17/24 Juan Sandra MD 575 [place] [address] Hematology and Oncology 05/17/24 Brigid Guy NP [address] [facility] [place] [address] Urology 05/17/24 Vicente Mooney MD [address] [place] [address] [address] [place] [address] Obstetrics and Gynecology 05/17/24 Beth Rai MD [address] [place] [address] 140 [place] [address] Neurology 05/17/24 Michell Espinoza 11 [facility] 3rd [place] [address] Cardiology 05/17/24 Shelia Zheng Programmable Logic Controller AssemblerMeter Changes Records Clerk 09/26/23 documented as of this encounter
--- OUTSIDE RECORDS SUMMARY | 2024-10-08 18:32 | XMS_ITS | Encounter Summary ---
Author Organization [employer] Address [address] [facility] [address] 7t [place] [address] Care Team Providers Care Mobile Home Technician Name Role Phone Petra Wiley HEDIS MANAGER Primary Care Provider [phone] Willard Waters Unavailable [phone] Kesslerseptember Unavailable Juan Sandra MD Unavailable [phone] Brigid Guy NP Unavailable Vicente Mooney MD Unavailable Beth Rai MD Unavailable Michell Espinoza Unavailable Encounter Details Date Type Department Care Team (Late st Contact Info) Description 05/20/2024 Orders Only [facility] CH[facility] MED & PEDS [address] [place], [place] [phone] Provider, MD Addie Social History Tobacco Use [...] Description 10/27/2024 2:30 PM EDT Office Visit [facility] ADULT DENTAL [address] [place] [address] Venkat Barreto, DDS 230 [place] [address] 11/04/2024 11:15 AM EDT Office Visit [facility] [address] [place] [address] Petra Wiley FNP 505 [place] [address] 11/25/2024 9:15 AM EDT Office Visit [address] [address] Petra Wiley FNP 505 [place] [address] 12/01/2024 11:15 AM EDT Office Visit [facility] 505 [place] [address] Mundo Krueger MD 505 [place] [address] 01/18/2025 3:00 PM EDT Office Visit [facility] ADULT DENTAL 505 [place] [address] Sanaz Nelson documented as of this encounter [...] documented as of this encounter Care Teams Mobile Home Technician Relationship Specialty Start Date End Date Petra Wiley FNP [address] [place] [address] PCP - General Family Medicine 03/17/24 Willard Waters [address] [place] [address] Rheumatology 05/17/24September [address] 3rd [place] [address] Gastroenterology 05/17/24 Juan Sandra MD [address] [place] [address] Hematology and Oncology 05/17/24 Brigid Guy NP [address] [place] [address] Urology 05/17/24 Vicente Mooney MD [address] [place] [address] [address] [place] [address] Obstetrics and Gynecology 05/17/24 Beth Rai MD [address] [place] [address] Dr Rangel [address] [place] [address] Neurology 05/17/24 Michell Espinoza [address] 3rd [place] [address] Cardiology 05/17/24 [facility] SpecialistLathe Turner 09/26/23 documented as of this encounter
--- OUTSIDE RECORDS SUMMARY | 2024-10-08 18:32 | XMS_ITS | Encounter Summary ---
Author Organization [employer] Address 75 [facility] 7t [place] [address] Care Team Providers Care Snow Removal Supervisor Name Role Phone Jennie Murray MD Primary Care Provider Petra Wiley Primary Care Provider Willard Waters Unavailable [phone] KesslerSeptember Unavailable Juan Sandra MD Unavailable [phone] Brigid Guy NP Unavailable Vicente Mooney MD Unavailable Beth Rai MD Unavailable [phone] Michell Espinoza Unavailable Encounter Details Date Type Department Care Team (Late st Contact Info) Description 05/25/2022 Abstract [facility] CHC ADULT DENTAL [address] [place], [place] [phone] Dental, Provider, DDS Social History Tobacco Use [...] 2:30 PM EDT Office Visit [facility] ADULT DENTAL 230 [place], [place] [phone] Venkat Barreto DDS 230 [place] [address] 11/04/2024 11:15 AM EDT Office Visit [address] [address] Petra Wiley, SPRIGGER 505 [place] [address] 11/25/2024 9:15 AM EDT Office Visit [facility] 230 [place] [address] SaurabhSkyle, SPRIGGER 505 [place] [address] 12/01/2024 11:15 AM EDT Office Visit [facility] MED & PEDS 505 [place] [address] Mundo Krueger MD 505 [place] [address] 01/18/2025 3:00 PM EDT Office Visit [facility] ADULT DENTAL 505 [place] [address] Sanaz Nelson documented as of this encounter [...] on filedocumented in this encounter Care Teams Snow Removal Supervisor Relationship Specialty Start Date End Date Jennie Murray MD 230 [place] [address] PCP - General Family Medicine 06/23/13 03/16/24 Petra Wiley FNP 230 [place] [address] PCP - General Family Medicine 03/17/24 Willard Waters [address] [place] [address] Rheumatology 05/17/24 Sumaya Kessler [address] 3rd [place] [address] Gastroenterology 05/17/24 Juan Sandra MD 575 [place] [address] Hematology and Oncology 05/17/24 Brigid Guy NP [address] [place] [address] Urology 05/17/24 Vicente Mooney MD [address] [place] [address] [address] [place] [address] Obstetrics and Gynecology 05/17/24 Beth Rai MD [address] [place] [address] [place] [address] Neurology 05/17/24 Michell Espinoza [address] [place] [address] 3rd [place] [address] Cardiology 05/17/24 Shelia Zheng Sales Route DriverSupervisor Intermediates 09/26/23 documented as of this encounter
--- OUTSIDE RECORDS SUMMARY | 2024-10-08 18:32 | XMS_ITS | Clinical Summary ---
Author Organization [facility] Address [address] [place] [address] Care Team Providers Care Stope Miner Name Role Phone Petra Wiley Primary Care Provider [phone] Allergies Active Allergy Reactions Criticality Noted Date [...] Type Department Care Team Description 08/06/2024 Telephone [facility] [address] [place] [address], [place] [phone] Healthcare Prof: Khadra Westbrook Telephone Intake, Staff PAC Appt Request - New 08/01/2024 Results Follow-Up [facility] Rhe[facility]ology [facility] [address] [place] [address] Healthcare Prof: Newton Rangel DO 07/22/2024 12:00 PM EST Office Visit [facility] Rhe[facility]ology [facility] [address] [place] [address] Healthcare Prof: Newton Rangel DO Erythromelalgia (Primary Dx); Polyarthralgia [...] Description 11/02/2024 2:20 PM EDT Office Visit [facility] Rheumatology Clinic [address] [place] [address] Healthcare Prof: eNwton Rangel DO [address] [facility] [place] [address] 02/09/2025 10:15 AM EDT Office Visit [facility] 4th Floor [address] [facility], [place] [phone] Healthcare Prof: Hipolito Lei MD [address] [place] [address] Health Maintenance Due Date Last Done Comments [...] Years) Completed 05/13/2024 Procedures * Due to [place] [employer] law, this organization might not be sharing negative HIV tests. Procedure Name Priority Date/Time Associated Diagnosis Comments SEDIMENTATION RATE, AUTOMATED Routine 07/22/2024 1:56 PM EST Polyarthralgia PROTEIN ELECTROPHORESIS W/REFLEX TO IMMUNOFIXATION, SERUM Routine 07/22/2024 1:56 PM EST Polyarthralgia from Last 3 Months Results * Due to [place] [employer] law, this organization might not be sharing negative HIV tests. * Protein Electrophoresis w/Reflex to Immunofixation, Serum (07/22/2024 1:56 PM EST) Protein, Total 8.1 6.1 - 8.1 g/dL 07/28/2024 7:22 AM EST [facility] Albumin 4.8 3.8 - 4.8 g/dL 07/28/2024 7:22 AM EST [facility] Alpha 1 Globulin 0.3 0.2 - 0.3 g/dL 07/28/2024 7:22 AM EST [facility] Alpha 2 Globulin 0.7 0.5 - 0.9 g/dL 07/28/2024 7:22 AM EST [facility] Beta 1 Globulin 0.6 0.4 - 0.6 g/dL 07/28/2024 7:22 AM EST [facility] Beta 2 Globulin 0.5 0.2 - 0.5 g/dL 07/28/2024 7:22 AM EST [facility] Gamma Globulin 1.2 0.8 - 1.7 g/dL 07/28/2024 7:22 AM EST [facility] Interpretation See Comments 07/28/2024 7:22 AM EST [facility] Comment: Normal Serum Protein Electrophoresis Pattern. No abnormal protein bands (M-protein) detected. Blood Structure of peripheral vein / Unknown Venipuncture / Unknown 07/22/2024 1:56 PM EST 07/22/2024 2:37 PM EST Narrative [facility] - 07/28/2024 7:22 AM EST [facility] Received Date:[id number] us Newton Yenifer DO LAB BLOOD ORDERABLES Final Res ult [facility] [address] [facility] 3rd Floor, [place] [address], [place] [phone] [facility] [address] [facility] 3rd Floor, [place] [address], [place] [phone] * (ABNORMAL) Sedimentation Rate (07/22/2024 1:56 PM EST) Sed Rate 29(H) <20 mm/Hr mm/Hr 07/22/2024 2:52 PM EST [facility] Blood Structure of peripheral vein / Unknown Venipuncture / Unknown 07/22/2024 1:56 PM EST 07/22/2024 2:37 PM EST us [employer] DO LAB BLOOD ORDERABLES Final Res ult [facility] [address] [place] [address], from Last 3 [place] [address] [facility] Care Teams Stope Miner Relationship Specialty Start Date End Date Petra Wiley [address] [place] [address] PCP - General Family Medicine 03/19/24
--- OUTSIDE RECORDS SUMMARY | 2024-10-08 18:32 | XMS_ITS | Clinical Summary ---
Author Organization [employer] Address [address] [facility] [address] [place] [address] Care Team Providers Care Mail Order Sorter Name Role Phone Petra Wiley DOCUMENT SPECIALIST Primary Care Provider Willard Waters Unavailable [phone] September Unavailable Juan Sandra MD Unavailable [phone] Brigid Guy NP Unavailable Vicente Mooney [...] not to exceed 6 tablets per 24hrs 11/02/19 22 Active famotidine (Pepcid) 40 MG tablet TOME ADRY TABLETA POR V A ORAL TODOS LOS D AL ACOSTARSE 08/07/19 22 Active Bisacodyl EC 5 MG EC tablet TAKE 2 TABLETS ORALLY BEDTIME FOR 30 DAYS 05/08/20 23 Active dicyclomine (Bentyl) 10 MG capsule TOME ADRY C PSULA MINDA VECES AL D A 04/24/20 23 Active Creon 02047-085531 units capsule delayed-release particles capsule TOME ADRY C PSULA MINDA VECAARON AL D A WITH MEALS/SNACKS 11/16/19 23 Active Simethicone Ultra Strength 180 MG capsule TAKE 1 CAPSULE ORALLY 2 TIMES A DAY FOR 30 DAYS AFTER MEALS 05/08/20 23 Active Sodium Fluoride (PreviDent 5000 Booster Plus) 1.1 % paste Apply a smear of paste on the brush; brush thoroughly twice daily. Spit, do not rinse. 112 g 2 06/28/19 24 Active LORazepam (Ativan) 1 MG tablet TAKE 1/2 TABLET BY MOUTH IN THE MORNING AND 1 TABLET AT BEDTIME DIRECTED 05/27/20 23 Active ferrous gluconate (Fergon) 324 (38 Fe) MG tablet TAKE 1 PILL EVERY SATURDAY, SATURDAY, AND SATURDAY. TAKE WITH A FULL GLASS OF WATER OR VIT C CONTAINING JUICE, AND IDEALLY 1 HOUR BEFORE A MEAL OR 2 HOURS AFTER A MEAL 36 tablet 11/28/19 24 Active propranolol (Inderal) 20 MG tablet TAKE 1 TABLET BY MOUTH 2 TIMES A DAY FOR 30 DAYS FOR HEART PALPITATION 11/22/19 24 Active cyclobenzaprine (Flexeril) 5 MG tablet Take 1 tablet (5 mg) by mouth 3 times daily for 10 days. 30 tablet 2 02/20/20 24 Active Blood Pressure kit 1 each 2 times daily. 1 kit 02/20/20 24 2024 Active methocarbamol (Robaxin) 750 MG tabletIndication s:Fibromyalgia,N jorge pain Take 1 tablet (750 mg) by mouth 4 times daily for 10 days. 40 tablet 03/12/20 24 Active butalbital-aceta minophen-caffein e 50-325-40 MG tablet TOME ADRY TABLETA CADA OCHO HORAS CUANDO SEA NECESARIO FOR 30 DAYS 08/07/19 24 Active Banophen 25 MG capsule PLEASE SEE ATTACHED FOR DETAILED DIRECTIONS 12/06/19 24 Active albuterol 108 (90 Base) MCG/ACT inhalerIndicatio ns:Mild persistent asthma without complication Inhale 2 puffs Every 4-6 hours as needed for wheezing or shortness of breath. 18 g 11 03/17/20 [address] capsuleIndicatio ns:Gastroparesis ,Gastroesophagea l reflux disease without esophagitis Take 1 capsule (60 mg) by mouth Once per day. Do not crush or chew. 90 capsule 03/17/20 24 Active fexofenadine (Gretchen) 180 MG tabletIndication s:Seasonal allergies Take 1 tablet (180 mg) by mouth Once per day. 90 tablet 3 03/17/20 24 2024 Active Tirzepatide 2.5 MG/0.5ML solution auto-injectorInd ications:Class 2 obesity with body mass index (BMI) of 35.0 to 35.9 in adult, unspecified obesity type, unspecified whether serious comorbidity present Inject 2.5 mg under the skin 1 (one) time per week. 2 mL 2 06/24/19 25 Active Azelastine HCl 137 MCG/SPRAY solutionIndicati ons:Seasonal allergies ADMINISTER 1 SPRAY EACH NOSTRIL IF NEEDED IN THE MORNING AND AT BEDTIME FOR RHINITIS OR ALLERGIES. 30 mL 3 07/13/19 25 Active fluticasone furoate (Arnuity Ellipta) 100 MCG/ACT inhalerIndicatio ns:Asthma, unspecified asthma severity, unspecified whether complicated, unspecified whether persistent Inhale 1 puff Once per day. Rinse mouth with water after use to reduce aftertaste and incidence of candidiasis. Do not swallow. 1 each 07/29/19 25 Active pregabalin (Lyrica) 75 MG capsuleIndicatio ns:Fibromyalgia Take 1 capsule (75 mg) by mouth at bedtime. 30 capsule 1 07/29/19 25 2025 Active Misc. Devices (Pulse Oximeter) misc Use to check oxygen saturation as needed. Leave on finger for at least 30 seconds before looking at reading. (Normal above 95%) 1 each 07/31/19 25 Active neomycin-polymyx in-dexAMETHasone 0.1 % ointment Apply small amount to left lower eyelid twice a day for 1 week. 3.5 g 08/04/19 25 Active nabumetone (Relafen) 750 MG tablet Take 1 tablet (750 mg) by mouth if needed in the morning and at bedtime (pain). PLEASE SEE ATTACHED FOR DETAILED DIRECTIONS 60 tablet 2 09/08/19 25 Active cholecalciferol (Vitamin D3) 25 MCG (1000 UT) tabletIndication s:Vitamin D insufficiency TAKE 1 TABLET (25 MCG) BY MOUTH ONCE PER DAY. 90 tablet 3 09/29/19 25 Active sucralfate (Carafate) 1 g tabletIndication s:Gastroesophage al reflux disease without esophagitis Take 1 tablet (1 g) by mouth before breakfast, before lunch, before evening meal, and at bedtime. 120 tablet 11 10/09/19 25 2025 Active cholecalciferol (Vitamin D-3) 25 MCG (1000 UT) tabletIndication s:Vitamin D insufficiency Take 1 tablet (25 mcg) by mouth Once per day. 90 tablet 1 04/01/20 24 2024 Discontinued Active Problems Problem Noted Date Diagnosed Date Erythromelalgia 08/18/2024 Polyarthralgia 08/18/2024 Nephrolithiasis 07/29/2024 Overview (07/29/2024): 04/15/24: US Renal Bl ordered by Brigid LUCERO. Identified bilateral nonobstructing kidney stones. History of nutritional disorder 07/27/2024 History of musculoskeletal disorder 07/27/2024 Hordeolum externum of left lower eyelid 07/24/19 25 Palpitations 05/17/2024 Overview (05/17/2024): Followed by [facility] Cards Continues on Propranolol 20mg BID (through Cards) Class 1 obesity with body ma ss index (BMI) of 32.0 to 32.9 in adult 05/17/2024 Assessment & Plan (07/29/2024 4:08 PM EST): - Cont following with manager animal and healthy lifestyle interventions Assessment & Plan [...] of medullary thyroid cancer or MEN 2. Bucket Chucker referral offered. Recommended to decrease soda and [...] bruising easily 03/17/2024 Overview (03/17/2024): Followed by [facility] Heme/Onc - Dr. Sandra Per consult Jan [...] 04/17/2021 HCT 36.5 (L) 03/18/2024 Following with [facility] Heme/Onc - Dr. Turner Assessment & Plan [...] - Has consulted with Surgery team in [facility] for consideration of excision. Per their [...] - Has consulted with Surgery team in [facility] for consideration of excision. Per their consult Mar 2024, identified area has normal lobular fat, no discrete lipoma or nodules. Plan: conservative measures Abnormal uterine bleeding 12/27/2023 Overview (07/29/2024): Following with [facility] ADMISSIONS RN - Dr. Mooney EMB performed 04/14/24. Path: [...] Overview (05/17/2024): Lab Results Component Value Date [id number] 19.9 (L) 03/18/2024 [id number] 19 (A) 05/08/2023 - Cont Vit D [...] Overview (05/17/2024): Pap NIL/HPV Neg 11/12/2019 Dental: [facility] Dental Last PE: 06/03/23 Hep B Immune: Mar 2024 Gastroesophageal reflux disease without esophagi tis 06/03/2023 Overview (06/03/2023): ?? Followed by [facility] GI Varghese Kessler APRN ?? Continues famotidine and Dexliant through GI Irritable bowel syndrome with constipation 06/03 Overview (03/17/2024): Followed up [facility] YASSINE Kessler APRN Continues Bentyl TID Continues Bisacodyl 10mg nightly Dysphagia, oropharyngeal phase 06/03/2023 Overview (06/03/2023): ?? Followed by [facility] YASSINE Kessler APRN Gastroparesis 06/03/2023 Overview (03/17/2024): Followed by [facility] GI Continues with the following medication regimen for multiple GI symptoms and conditions: Creon, famotidine, psyllium, dicyclomine, simethicone, and Dexliant Previous medications: carafate NURIA positive 06/03/2023 Overview (07/29/2024): Previous followed by [facility] Rheum - Dr. Waters May 2024: Established with [facility] Rheum - Dr. Street NURIA positive 2019: 1:160, anti dna, nicholas, ESR, CRP all wnl Disorder of sesamoid bone of foot 06/03/2023 Overview (06/03/2023): -Left lateral sesamoid stress fx identified Jul 2022 at [facility] -Plan for immobilization in short walking boot and follow up 6 weeks Assessment & Plan (06/03/2023 10:28 PM EST): Plan to request latest records from [facility] and follow up with PCP to discuss eligibility handicap placbenton. Fibromyalgia 08/02/2022 Overview (07/29/2024): -Previously: Lyrica 75mg nightly through [facility] Physiatry/Rheum -Lyrica rx from PCP as of [...] Encounters Date Type Department Care Team Description 10/08/2024 3:30 PM EDT Office Visit [facility] MED & PEDS [address] [place] [address] Mundo Krueger MD Vaginal bleeding (Primary Dx); Gastroesophageal reflux disease without esophagitis 10/08/2024 Travel 10/08/2024 Telephone [facility] [address] [place] [address] Kenisha Torres MD Results; Medication Question 10/06/2024 Telephone [facility] [address] [place] [address] Sylvia Lemons MD 10/06/2024 Telephone [facility] MED & PEDS [address] [place] [address] Sylvia Lemons MD Results 10/06/2024 Orders Only GENERIC EXTERNAL DATA DEPARTMENT Provider, Generic External Data 09/27/2024 Refill [facility] W[facility] [address] [place] [address] Petra Wiley FNP Vitamin D insufficiency 09/15/2024 Refill [facility] MED [facility] PED[facility] [address] [place] [address] Jennie Murray MD 09/11/2024 2:00 PM EDT Office Visit [facility] ADULT DENTAL [address] [place] [address] Venkat Barreto DDS 09/08/2024 3:00 PM EDT Clinical Support [facility] DIABETES/NUTRITION [address] [place] [address] Class 2 obesity with body mass index (BMI) of 35.0 to 35.9 in adult, unspecified obesity type, unspecified whether serious comorbidity present; Class 1 obesity with body mass index (BMI) of 32.0 to 32.9 in adult, unspecified obesity type, unspecified whether serious comorbidity present 09/08/2024 Travel 09/07/2024 Orders Only [facility] MED [facility]ED[facility] [address] [place] [address] Petra Wiley FNP 09/07/2024 Travel 09/07/2024 Telephone [facility] MEDICINE [address] [place] [address] Petra Wiley FNP August08/28/2024 Population Health Risk Score Community [facility] (C[facility]) Department [address] [place] [phone] Provider, Population Health Generic 08/18/2024 1:30 PM EST Office Visit [facility] ADULT DENTAL [address] [place] [address] Venkat Barreto DDS Erythromelalgia (CMS/HCC) (Primary Dx); Polyarthralgia 08/17/2024 Orders Only GENERIC EXTERNAL DATA DEPARTMENT Provider, Generic External Data 08/17/2024 Telephone [facility] MEDICINE [address] [place] [address] Petra Wiley FNP Referral 08/14/2024 1:30 PM EST Clinical Support [facility] DIABETES/NUTRITION [address] [place] [address] Tamanna Mcintyre, RD BMI 35.0-35.9,adult (Primary Dx) 08/14/2024 Travel 08/11/2024 Orders Only GENERIC EXTERNAL DATA DEPARTMENT Provider, Generic External Data 08/04/2024 2:30 PM EST Office Visit [facility] OPTOMETRY [address] [place] [address] Waqas, Cristine, OD Hordeolum internum of left lower eyelid (Primary Dx); Dry eyes, bilateral; White without pressure of peripheral retina of both eyes; Hyperopia of right eye 08/04/2024 Travel 07/31/2024 Telephone [facility] [address] [place] [address] Petra Wiley FNP Patient request 07/29/2024 10:30 AM EST Office Visit [facility] [address] [place] [address] Petra Wiley FNP Asthma, unspecified asthma severity, [...] Travel 07/28/2024 1:30 PM EST Clinical Support [facility] DIABETES/NUTRITION [address] [place] [address] Tamanna Mcintyre, RD BMI 35.0-35.9,adult (Primary Dx) 07/28/2024 Telephone [facility] MED & PEDS [address], [place] [phone] Shireen Eagle MA Chart Prep 07/28/2024 Travel 07/24/2024 2:30 PM EST Office Visit [facility] ADULT DENTAL [address] [place] [address] Venkat Barreto DDS 07/24/2024 2:00 PM EST Office Visit [facility] WALK[facility] [address] [place] [address] Sylvia Lemons MD Hordeolum externum of left lower eyelid (Primary Dx) 07/20/2024 3:00 PM EST Office Visit [facility] ADULT DENTAL [address] [place] [address] Sanaz Nelson 07/20/2024 2:00 PM EST Clinical Support [facility] DIABETES/NUTRITION [address] [place] [address] BMI 35.0-35.9,adult (Primary Dx) 07/20/2024 Travel 07/12/2024 Refill [facility] MED & PEDS [address] [place] [address] Petra Wiley FNP Seasonal allergies 07/10/2024 2:00 PM EST Nutrition [facility] DIABETES/NUTRITION [address] [place] [address] Tamanna Mcintyre, ANGELINA Body mass index (BMI) of 35.0 to 35.9 in adult (Primary Dx) 07/10/2024 1:00 PM EST Office Visit [facility] ADULT DENTAL [address] [place] [address] Venkat Barreto DDS 07/10/2024 Travel from Last 3 Months [...] Mass Index 30.5 10/08/2024 3:44 PM EDT Plan of Treatment Upcoming Encounters Date Type Department Care Team (Late st Contact Info) Description 10/27/2024 2:30 PM EDT Office Visit [facility] ADULT DENTAL [address] [place] [phone] Venkat Barreto DDS [address] [place] [address] 11/04/2024 11:15 AM EDT Office Visit [facility] MEDICINE [address] [place] [address] Petra Wiley FNP [address] [place] [address] 11/25/2024 9:15 AM EDT Office Visit [address] [address] Petra Wiley FNP [address] [place] [address] 12/01/2024 11:15 AM EDT Office Visit [facility] MED & PEDS [address] [place] [address] Mundo Krueger MD [address] [place] [address] 01/18/2025 3:00 PM EDT Office Visit [facility] ADULT DENTAL [address] [place] [address] Sanaz Nelson Health Maintenance Due Date Last [...] exists Dental X-Ray: Full Mouth 08/03/2025 08/02/2022 DTaP/Tdap/Td Vaccines (1 - Tdap) 09/30/2025 10/14/2015 Postponed from 10/15/2015 (Other Medical Reasons) Tobacco Screening 10/08/2025 10/08/2024 Lipid Panel 03/18/2029 03/18/2024, 05/0 06/2023, 04/17/2021 [...] Routine 10/08/2024 4:07 PM EDT Vaginal bleeding CHLAMYDIA/N. GONORRHOEAE RNA, TMA, UROGENITAL Routine 10/06/2024 1:10 PM EDT HCG, TOTAL, QN Routine 10/06/2024 [...] Recently Relevant to Health Maintenance Results * (ABNORMAL) CBC (10/08/2024 4:07 PM EDT) Only the most recent of2 resultswithin the time period is included. White Blood Count 9.7 4.8 - 10.8 X10*3/uL [facility] Red Blood Count 3.98(L) 4.20 - 5.50 X10*6/uL [facility] Hemoglobin 9.4(L) 12.0 - 16.0 g/dl [facility] Hematocrit 31.0(L) 37.0 - 47.0 % [facility] Mean Corpuscular Volume 77.9(L) 80.0 - 98.0 fL [facility] Mean Corpuscular Hemoglobin 23.6(L) 27.0 - 33.0 pg [facility] Mean Corpuscular HGB Conc 30.3(L) 31.0 - 35.0 g/dl [facility] Red Cell Distribution Width 15.7 11.0 - 16.0 % [facility] Platelet Count 371 160 - 400 X10*3/uL [facility] Mean Platelet Volume 12.2 9.4 - 12.3 fL [facility] NRBC Pct Auto 0.0 0.0 - 0.2 /100WBC [facility] NRBC Abs Auto 0.000 0.0 - 0.012 X10*3/uL [facility] Blood Venous blood specimen / Unknown 10/08/2024 4:07 PM EDT 10/08/2024 5:43 PM EDT us Mundo Krueger MD LAB BLOOD ORDERABLES Final Result [facility] [address] [place] [phone] * Chlamydia/N. Gonorrhoeae RNA, TMA, Urogenitial (10/06/2024 1:10 PM EDT) CT PCR NOT DETECTED Not Detect. [facility] Comment:A not detected test result does [...] psychologicalconsequences. NG PCR NOT DETECTED Not Detect. [facility] Comment:A not detected test result does [...] PM EDT 10/06/2024 3:37 PM EDT Narrative [facility] - 10/07/2024 10:11 AM EDT Vaginal us Generic External Data Provider LAB MICROBIOLOGY - GENERAL ORDERABLES Final Result Performing Organization Address City/[facility]/ZIP Co de Phone Number [facility] [address] [place] [address] [phone] * TSH with Reflex to Free T4 (10/06/2024 1:05 PM EDT) TSH reflex Free T4 1.37 0.32 - 4.0 uIU/mL [facility] 10/06/2024 1:05 PM EDT 10/06/2024 1:05 PM EDT us Generic External Data Provider LAB BLOOD ORDERAB LES Final Result [facility] [address] [place] [address] [phone] * hCG, Total, Quantitative (10/06/2024 1:05 PM EDT) HCG Quantitative <2 mIU/mL [facility] Comment:Weeks post LMP Appro ximate hCG(Last Menstrual Period) Range (mIU/ml)3 - 4 weeks 9 - 1304 - 5 weeks 75 - 2,6005 - 6 weeks 850 - 20,8006 - 7 weeks 4000 - 100,2007 - 12 weeks 11,500 - 289,05934 - 16 weeks 18,300 - 137,65461 - 29 weeks (2nd trimester) 1,400 - 53,69703 - 41 weeks (3rd trimester) 940 - [...] ORDERAB LES Final Result Performing Organization Address City/State/[facility] Co de Phone Number [facility] [address] [place] [address] [phone] * BI US Breast Limited Right (09/01/2024 12:30 PM EDT) Anatomical Region Laterality Modality Breast Right Ultrasound 09/01/2024 12:3 0 PM EDT Narrative 09/01/2024 3:58 PM EDT ? [facility] ? [address] [place] [address] ? Ultrasound Report ? Signed ? Patient: Lowell Anaya,Ambika ?MR#: [id number] ?? [id number] ? : 1985 ?Acct:[id number] ? Age/Sex: 39 / F ?ADM Date: 03/18/25 ? Loc: HO.MAMMO ? Attending Dr: Petra LUCERO ? Ordering Physician: Petra Wiley ?? Date of Service: 09/01/24 ?? Procedure(s): US breast RT limited ?? Accession Number(s): [id number] ? cc: Petra Wiley ? EXAMINATION: ?? [...] signed by Eneida Núñez, in OV> ? 09/01/245 ? DD/ 1230 ? TD/TT: 09/01/24 1332 ? Product Safety Engineer: ? Procedure Note Donotuseinterpreter, Image - 09/01/2024 [facility] [address] [place], [place] [address] Ultrasound Report Signed Patient: Ambika McdermottMR#: [id number] : 1985Acct:[id number] Age/Sex: 39 / FADM Date: 09/01/24 Loc: HO.MAMMO Attending Dr: Petra Wiley DOCUMENT SPECIALIST Ordering Physician: Petra Wiley Date of Service: 09/01/24 Procedure(s): US breast RT limited Accession Number(s): [id number] cc: Petra Wiley EXAMINATION: MM DIAGNOSTIC DIGITAL [...] 09/01/24 1555 DD/ 1230 TD/TT: 09/01/24 1332 Product Safety Engineer: us Petra Wiley DOCUMENT SPECIALIST IMG US PROCEDURES Final Result * BI Mammogram Diagnostic Tomosynthesis Bilateral (09/01/2024 12:30 PM EDT) Anatomical Region Laterality Modality Breast Bilateral Mammography 09/01/2024 12:3 0 PM EDT Narrative 09/01/2024 3:58 PM EDT ? [facility] ? [address] ?[place] [address] ? Mammography Report ? Signed ? Patient: Lowell Anaya,Ambika ?MR#: [id number] ?? [id number] ? : 1985 ?Acct:[id number] ? Age/Sex: 39 / F ?ADM Date: 03/18/25 ? Loc: HO.MAMMO ? Attending Dr: Petra Wiley DOCUMENT SPECIALIST ? Ordering Physician: Petra Wiley DOCUMENT SPECIALIST ?Results: 3.6MPr ?? obably Benign Finding - Short 6 M F/U Suggested ? Date of Service: 09/01/24 ?Follow Up: 6 Month F/U ? Procedure(s): MM tomosynthesis diagnostic BI ?? Accession Number(s): [id number] ? cc: Petra Wiley DOCUMENT SPECIALIST ? EXAMINATION: ?? MM DIAGNOSTIC DIGITAL BREAST [...] DD/ 1230 ? TD/TT: 09/01/24 1332 ? Product Safety Engineer: ? Procedure Note Epi, Rain - 09/01/2024 [facility] [address] [place] [address] Dr. Bunch, [place] [address] Mammography Report Signed Patient: Ambika McdermottMR#: [id number] : 1985Acct:[id number] Age/Sex: 39 / FADM Date: 09/01/24 Loc: HO.MAMMO Attending Dr: Petra Wiley DOCUMENT SPECIALIST Ordering Physician: Petra Wiley FNPResults: 3.6MPr obably Benign Finding - Short 6 M F/U Suggested Date of Service: 09/01/24Follow Up: 6 Month F/U Procedure(s): MM tomosynthesis diagnostic BI Accession Number(s): [id number] cc: Petra Wiley DOCUMENT SPECIALIST EXAMINATION: MM DIAGNOSTIC DIGITAL BREAST TOMOSYNTHESIS, BILATERAL [...] 09/01/24 1555 DD/ 1230 TD/TT: 09/01/24 1332 Product Safety Engineer: Petra Wiley DOCUMENT SPECIALIST IMG BI PROCEDURES Final Result * Urinalysis w/reflex microscopic (08/17/2024 2:00 PM EST) Color Urine Yellow [facility] Appearance Urine Clear [facility] PH 5.5 5.0 - 9.0 [facility] Glucose Urine UA Negative Negative mg/dL [facility] Urine Blood Negative Negative [facility] Specific [place] - Urine 1.010 1.005 - 1.025 [facility] Urine Protein Negative Neg-Trace mg/dL [facility] Urine Ketones Negative Negative mg/dL [facility] Nitrite Urine Negative Negative [facility] Leukocyte Esterase Urine Negative Negative [facility] 08/17/2024 2:00 PM EST 08/17/2024 2:25 PM EST [facility] - 08/17/2024 2:36 PM EST Urine, Clean Catch Generic External Data Provider LAB URINE ORDERAB LES Final Result Performing Organization Address [facility] de Phone Number [facility] [address] [place] [phone] * Culture, Urine, Routine (08/11/2024 2:36 PM EST) Urine Urine specimen obtained by clean catch procedure / Unknown 08/11/2024 2:36 PM EST 08/11/2024 4:01 PM EST Comment:UACC Narrative [facility] - 08/13/2024 9:47 AM EST Urine Culture Report Result Urine Culture 10,000 to 50,000 cfu/ml Urine Culture Mixed bacterial terry characteristic of Urine Culture urogenital contamination. Specimen Source: Urine clean catch Generic External Data Provider LAB MICROBIOLOGY - GENERAL ORDERABLES Final Result Performing Organization Address City/[facility] Co de Phone Number [facility] [address] [place] [phone] * Hepatitis C Viral RNA, Quantitative, Real-Time PCR (03/18/2024 2:05 PM EDT) Pathologist [facility] Hepatitis C Viral Load <15 NOT DETECTED NOT DETECTED IU/mL [facility] HCV Log PCR <1.18 NOT DETECTED NOT DETECTED Log IU/mL [facility] Comment:For additional infor felton, please refer tohttp://education.Ziploop/faq/RUL46s3(This link is being provided for informational/educational purposes only.)THIS TEST WAS PERFORMED AT:[facility] [place] [phone] DEL CID MD Blood 03/18/2024 2:05 PM EDT 03/18/2024 2:05 PM EDT Petra Wiley [facility] LAB BLOOD ORDERABLES Final Res ult [facility] [address] [place] [address] [phone] * HIV-1/2 Antigen and Antibodies, Fourth Generation, with Reflexes (03/18/2024 2:05 PM EDT) [facility] HIV AB/AG Nonreactive Nonreactive [facility] Comment:HIV-1 p24 Ag and/or HIV-1/HIV-2 Ab not detected.A test result that is nonreactive does not exclude thepossibility of exposure to or infection with HIV-1 and/orHIV-2. Nonreactive results in this assay for individualswith prior exposure to HIV-1 and/or HIV-2 may be due toantigen and antibody levels that are below the limit ofdetection of this assay.The Pax8 AliniGovenlock Green HIV Ag/Ab Combo assay result andsupplemental assay results should be interpreted inconjunction with the patient's clinical presentation,history and other laboratory results. If the results areinconsistent with clinical evidence, additional testing issuggested to confirm the result. Blood Venous blood specimen / Unknown 03/18/2024 2:05 PM EDT 03/18/2024 2:05 PM EDT Petra Wiley [facility] LAB BLOOD ORDERABLES Final Res ult Performing Organization Address [facility] Co de Phone Number [facility] [address] [place] [address] [phone] * (ABNORMAL) Lipid Panel, Standard (03/18/2024 2:05 PM EDT) Triglycerides 100 <150 mg/dL [facility] Comment:Desirable Triglyceri de: less than 150 mg/dLBorderline High Triglyceride 150-199 mg/dLHigh Triglyceride: 200-499 mg/dLVery High Triglyceride: greater than or equal to 5OO mg/dL Cholesterol 200(H) <200 mg/dL [facility] Comment:Desirable Cholestero l: less than 200 mg/dLBorderline High Cholesterol: 200-239 mg/dLHigh Cholesterol: greater than 239 mg/dL LDL Cholesterol Calculated 128(H) <100 mg/dL [facility] Comment:Desirable LDL: less than 100 mg/dLNear Optimal/Above Optimal LDL: 110- 129 mg/dLBorderline High LDL: 130-159 mg/dLHigh LDL: 160-189 mg/dLVery High LDL: greater than or equal to 190 mg/dL HDL Cholesterol 52 >40 mg/dL [facility] Comment:Desirable HDL: great er than 40 mg/dL Note: This HDL assay may give artificially low results in patients with liver disease. Blood Venous blood specimen / Unknown 03/18/2024 2:05 PM EDT 03/18/2024 2:05 PM EDT Petra Wiley [facility] BLOOD ORDERABLES Final Res ult Performing Organization Address City/[facility]/ZIP Co de Phone Number [facility] [address] [place] [address] [phone] * Pap Smear (11/12/2019 12:00 AM EDT) Swab us Historical Provider LAB CYTOLOGY ORDERABLES F inal Result EXTERNAL LAB from Last 3 Months or Most Recently Relevant to Health Maintenance Insurance [facility] C3 DENTAL-[facility] MEDICAID STAND ADULT Care Teams Mail Order Sorter Relationship Specialty Start Date End Date Petra Wiley FNP [address] [place] [address] PCP - General Family Medicine 03/17/24 Willard Waters [address] Rheumatology 05/17/24September 11 [facility] 3rd [place] [address] Gastroenterology 05/17/24 Juan Sandra MD [address] [place] [address] Hematology and Oncology 05/17/24 Brigid Guy NP 10 [facility] [address] [place] [address] Urology 05/17/24 Vicente Mooney MD [address] [place] [address] [address] [place] [address] Obstetrics and Gynecology 05/17/24 Beth Rai MD [address] [place] [address] [address] [place] [address] Neurology 05/17/24 Michell Espinoza 11 [facility] 3rd [place] [address] Cardiology 05/17/24 Shelia Zheng Translator And InterpreterHydro Pneumatic Tester 09/26/23
== END 2024-10-08 16:06 | disposition home or self-care (01) ==
LOC: HO.CHCLDS 16:05
PROVIDERS: Visit Provider Internal Medicine
DX: N93.9 Abnormal uterine and vaginal bleeding, unspecified (principal)
CPT/HCPCS: 36415; 84443; 85027

== ENCOUNTER 2024-10-26 13:24 | Outpatient (REF) | payer MEDICAID, SELFPAY ==
--- NOTE | ~2024-10-26 | US_ITS ---
EXAMINATION: Ultrasound renal bilaterally. CLINICAL INFORMATION: Calculus of kidney. COMPARISON: 04/15/2024. TECHNIQUE: Real-time ultrasound of the kidneys using grayscale and color Doppler technique. FINDINGS: Right kidney: 10 x 5 x 5 cm. Normal echotexture. Normal renal cortical thickness. Prominent Trae column. No hydronephrosis. There are at least 3 less than 3 mm hyperechoic lesion centered the corticomedullary junction, most in the upper pole of the pelvicalyceal system. Left kidney: 11 x 5 x 4 cm. Normal echotexture. Normal renal cortical thickness. No hydronephrosis. There are 2 hyperechoic less than 3 mm lesions in the upper pole. US/US renal BI IMPRESSION: Nonobstructing nephrolithiasis, bilaterally. Electronically signed by: Raheem Gandhi MD 10/26/2024 02:03 PM EDT
--- OUTSIDE RECORDS SUMMARY | 2024-10-26 13:44 | XMS_ITS | Encounter Summary ---
Author Organization [facility] Address [address] [place] [address] Care Team Providers Care Follow Up Specialist Name Role Phone Petra Wiley Primary Care Provider [phone] Reason for Referral * Surgical (Routine) - Pending Review Specialty Diagnoses / Procedures Referred By Mehreen linares Referred To Contact General Surgery Diagnoses Subcutaneous mass of right upper extremity Subcutaneous mass of abdominal wall Physician Referral Services [address] [place] [address] [facility] [address] [place] [address] Phone: tel: fax: Referral ID Status Reason Start Date Expiration Date Visits Requested Visits Authorized [id number] Pending Review Specialty Services Required 06/26/2024 12/26/2025 6 6 Encounter Details Date Type Department Care Team (Latest Contact Info) Description 06/26/2024 Transcribe Orders Physician Referral Services [address] [place] [address] Petra Wiley [address] [place] [address] Subcutaneous mass of right upper extremity (Primary [...] Description 11/02/2024 2:20 PM EDT Office Visit [facility] Rhe[facility]ology Clinic [address] [place] [address] Partner Manager: Newton Rangel DO 119 [facility] [place] [address] 02/09/2025 10:15 AM EDT Office Visit [facility] Dermatology Clinic 4th Floor 281 [facility], [place] [address] Partner Manager: Hipolito Lei MD [address] [place] [address] Scheduled Referrals Name Type Priority Associated Diagnoses Order Schedule Ambulatory referral to General Surgery Outpatient Referral Routine Subcutaneous mass of right upper extremity Subcutaneous mass of abdominal wall Expected: 06/26/2024, Expires: 12/24/2024 documented as of this encounter Visit Diagnoses Diagnosis Subcutaneous mass of right upper extremity- Primary Subcutaneous mass of abdominal wall documented in this encounter Care Teams Follow Up Specialist Relationship Specialty Start Date End Date Petra Wiley [address] [place] [address] PCP - General Family Medicine 03/19/24 documented as of this encounter
--- OUTSIDE RECORDS SUMMARY | 2024-10-26 13:44 | XMS_ITS | Encounter Summary ---
Author Organization [employer] Address 75 [facility] 7t [place] [address] Care Team Providers Care Director Of Accreditation Name Role Phone Jennie Murray MD Primary Care Provider [phone] Petra Wiley Primary Care Provider Willard Waters Unavailable [phone] KesslerSeptember Unavailable Juan Sandra MD Unavailable [phone] Brigid Guy NP Unavailable Vicente Mooney MD Unavailable Beth Rai MD Unavailable [phone] Michell Espinoza Unavailable Encounter Details Date Type Department Care Team (Latest Contact Info) Description 09/03/2018 Abstract [facility] CONVERSIONS Dental, Provider, DDS Social History [...] Description 10/27/2024 2:30 PM EDT Office Visit [facility] ADULT DENTAL [address] [place], [place] [phone] Venkat Barreto DDS [address] [place], [place] [phone] 11/04/2024 11:15 AM EDT Office Visit [facility] MEDICINE [address] [place] [address] Petra Wiley FNP [address] [place] [address] 11/06/2024 3:30 PM EDT Clinical Support [facility] DIABETES/NUTRITION [address] [place] [address] Tamanna Mcintyre, RD [address] [place] [address] 11/25/2024 9:15 AM EDT Office Visit [facility] MEDICINE [address] [place] [address] Petra Wiley FNP [address] [place] [address] 01/18/2025 3:00 PM EDT Office Visit [facility] CH[facility] ADULT DENTAL [address] [place] [address] Sanaz Nelson documented as of this encounter Visit Diagnoses Not on filedocumented in this encounter Care Teams Director Of Accreditation Relationship Specialty Start Date End Date Jennie Murray MD [address] [place] [address] PCP - General Family Medicine 06/23/13 03/16/24 Petra Wiley FNP [address] [place] [address] PCP - General Family Medicine 03/17/24 Willard Waters [address] [place] [address] Rheumatology 05/17/24 Sumaya Kessler [address] 3rd [place] [address] Gastroenterology 05/17/24 Juan Sandra MD 575 [place] [address] Hematology and Oncology 05/17/24 Brigid Guy NP [address] [place] [address] Urology 05/17/24 Vicente Mooney MD 575 [facility] [address] [place] [address] Obstetrics and Gynecology 05/17/24 Beth Rai MD [address] [place] [address] [address] Neurology 05/17/24 Michell Espinoza 11 [facility] 3rd [place] [address] Cardiology 05/17/24 Shelia Zheng Counseling Services ManagerCoat Presser 09/26/23 documented as of this encounter
--- OUTSIDE RECORDS SUMMARY | 2024-10-26 13:44 | XMS_ITS | Encounter Summary ---
Author Organization [employer] Address 75 [facility] 7t [place] [address] Care Team Providers Care Critical Care Rn Name Role Phone Jennie Murray MD Primary Care Provider Petra Wiley Primary Care Provider Willard Waters Unavailable [phone] KesslerSeptember Unavailable Juan Sandra MD Unavailable [phone] Brigid Guy NP Unavailable Vicente Mooney MD Unavailable Beth Rai MD Unavailable [phone] Michell Espinoza Unavailable Reason for Visit * Reason Onset Date Comments medication 09/19/2022 Encounter Details Date Type Department Care Team (Late st Contact Info) Description 09/19/2022 Telephone [facility] ADULT DENTAL [address] [place], [place] [phone] Venkat Barreto DDS [address] [place], [place] [phone] medication Social History Tobacco Use Types Packs/Day [...] EDT Script was sent for Augementin to [facility] in [place]. Patient went in to pickle pumper script and they stated there was nothing there. Contacted [facility] and they stated that nationwide there was a shut down on their system for about 3 hours so it doesn't look like they received it. Can it be resent for patient? documented in this encounter Plan of Treatment Upcoming Encounters Date Type Department Care Team (Late st Contact Info) Description 10/27/2024 2:30 PM EDT Office Visit [facility] ADULT DENTAL [address] [place] [address] Venkat Barreto DDS [address] [place] [address] 11/04/2024 11:15 AM EDT Office Visit [facility] MEDICINE [address] [place] [address] Petra Wiley FNP [address] [place] [address] 11/06/2024 3:30 PM EDT Clinical Support [facility] DIABETES/NUTRITION [address] [place] [address] Tamanna Mcintyre, ANGELINA [address] [place] [address] 11/25/2024 9:15 AM EDT Office Visit [facility] MEDICINE [address] [place] [address] Petra Wiley FNP [address] [place] [address] 01/18/2025 3:00 PM EDT Office Visit [facility] ADULT DENTAL 505 [place] [address] Sanaz Nelson documented as of this encounter Visit Diagnoses Not on filedocumented in this encounter Additional Health Concerns Assessment Noted Time PHQ-9 Depression Total Score: 0 07/04/19 23 3:01 PM EST documented as of this encounter Care Teams Critical Care Rn Relationship Specialty Start Date End Date Jennie Murray MD 230 [place] [address] PCP - General Family Medicine 06/23/13 03/16/24 Petra Wiley FNP 230 [place] [address] PCP - General Family Medicine 03/17/24 Willard Waters [address] [place] [address] Rheumatology 05/17/24KesslerSeptember [address] 3rd [place] [address] Gastroenterology 05/17/24 Juan Sandra MD 575 [place] [address] Hematology and Oncology 05/17/24 Brigid Guy NP [address] [place] [address] Urology 05/17/24 Vicente Mooney MD 575 [facility] [address] [place] [address] Obstetrics and Gynecology 05/17/24 FrediBeth phelps MD [address] [place] [address] [place] [address] Neurology 05/17/24 Michell Espinoza [address] [place] [address] 3rd [place] [address] Cardiology 05/17/24 Shelia Zheng Heel StiffenerSaxophone Player 09/26/23 documented as of this encounter
--- OUTSIDE RECORDS SUMMARY | 2024-10-26 13:44 | XMS_ITS | Encounter Summary ---
Author Organization [employer] Address 75 [facility] 7t [place] [address] Care Team Providers Care Director Of Automation Name Role Phone Jennie Murray MD Primary Care Provider [phone] Petra Wiley Primary Care Provider [phone] Willard Waters Unavailable [phone] Kesslerseptember Unavailable Juan Sandra MD Unavailable [phone] Brigid Guy NP Unavailable Vicente Mooney MD Unavailable Beth Rai MD Unavailable Michell Espinoza Unavailable Encounter Details Date Type Department Care Team (Late st Contact Info) Description 05/25/2022 Abstract [facility] ADULT DENTAL [address] [place], [place] [phone] Dental, Provider, DDS Social History Tobacco Use [...] 10/27/2024 2:30 PM EDT Office Visit [facility] ADULT DENTAL [address] [place], [place] [phone] Venkat Barreto DDS [address] [place] [address] 11/04/2024 11:15 AM EDT Office Visit [facility] MEDICINE [address] [place] [address] Saurabh Petra, REFRESH TECHNICIAN [address] [place] [address] 11/06/2024 3:30 PM EDT Clinical Support [facility] DIABETES/NUTRITION [address] [place] [address] [address]Tamanna orourke, RD [address] [place] [address] 11/25/2024 9:15 AM EDT Office Visit [facility] MEDICINE [address] [place] [address] Petra Wiley, REFRESH TECHNICIAN [address] [place] [address] 01/18/2025 3:00 PM EDT Office Visit [facility] CHC ADULT DENTAL [address] [place] [address] Sanaz Nelson documented as of this encounter [...] in this encounter Care Teams Director Of Automation Relationship Specialty Start Date End Date Jennie Murray MD 230 [place] [address] PCP - General Family Medicine 06/23/13 03/16/24 Petra Wiley FNP [address] [place] [address] PCP - General Family Medicine 03/17/24 Willard Waters [address] [place] [address] Rheumatology 05/17/24September [address] 3rd [place] [address] Gastroenterology 05/17/24 Juan Sandra MD [address] [place] [address] Hematology and Oncology 05/17/24 Brigid Guy NP [address] [place] [address] Urology 05/17/24 Vicente Mooney MD [address] [place] [address] [address] [place] [address] Obstetrics and Gynecology 05/17/24 Beth Rai MD [address] [place] [address] [place] [address] Neurology 05/17/24 Michell Espinoza [address] [place] [address] 3rd [place] [address] Cardiology 05/17/24 Shelia Zheng Stripper PreliminaryVending Machine Servicer 09/26/23 documented as of this encounter
--- OUTSIDE RECORDS SUMMARY | 2024-10-26 13:44 | XMS_ITS | Referral Summary ---
Author Organization [facility] Address [address] [place] [address] Care Team Providers Care Establishment Guide Name Role Phone Petra Wiley Primary Care Provider [phone] Encounters Date Type Department Care Team Description 08/06/2024 Telephone [facility] Dermatology Clinic 4th Floor 281 [facility], [place] [address] Salesperson Recreational Vehicles: Khadra Westbrook Telephone Intake, Staff PAC Appt Request - New 08/01/2024 Results Follow-Up [facility] Rheumatology Clinic [address] [place] [address] Salesperson Recreational Vehicles: Newton Rangel DO from Last 3 Months Allergies Active Allergy [...] Description 11/02/2024 2:20 PM EDT Office Visit [facility] Rheumatology Clinic [address] [place] [address] Salesperson Recreational Vehicles: Newton Rangel DO 119 [facility] [place] [address] 02/09/2025 10:15 AM EDT Office Visit [facility] Dermatology Clinic 4th Floor 281 [facility], [place] [address] Salesperson Recreational Vehicles: Hipolito Lei MD [address] [place] [address] [place] [address] [facility] Care Teams Establishment Guide Relationship Specialty Start Date End Date Petra Wiley 230 [place] [address] PCP - General Family Medicine 03/19/24
--- OUTSIDE RECORDS SUMMARY | 2024-10-26 13:44 | XMS_ITS | Clinical Summary ---
Author Organization [facility] Address [address] [place] [address] Care Team Providers Care Core Fitter Name Role Phone Petra Wiley Primary Care Provider [phone] Allergies Active Allergy Reactions Criticality Noted Date [facility] 4th Floor 281 [facility], Fourth [place] [address] Supervisor Pipeline: Khadra Westbrook Telephone Intake, Staff PAC Appt Request - New 08/01/2024 Results Follow-Up [facility] Rheumatology Clinic [address] [place], [place] [phone] Supervisor Pipeline: Newton Rangel DO from Last 3 Months Social History Tobacco [...] Description 11/02/2024 2:20 PM EDT Office Visit [facility] Rheumatology Clinic [address] [place] [address] Supervisor Pipeline: Newton Rangel DO 119 [facility] [place] [address] 02/09/2025 10:15 AM EDT Office Visit [facility] Dermatology Clinic 4th Floor 281 [facility], Fourth [place] [phone] Supervisor Pipeline: Hipolito Lei MD [address] [place], [place] [phone] Health Maintenance Due Date Last Done Comments [...] and At-Risk Patients (6-50 Years) Completed 05/13/2024 Insurance [facility] Care Teams Core Fitter Relationship Specialty Start Date End Date Petra Wiley [address] [place] [address] PCP - General Family Medicine 03/19/24
--- OUTSIDE RECORDS SUMMARY | 2024-10-26 13:44 | XMS_ITS | Encounter Summary ---
Author Organization [employer] Address 75 [facility] 7t [place] [address] Care Team Providers Care Nutrition Coordinator Name Role Phone Jennie Murray MD Primary Care Provider [phone] Petra Wiley Primary Care Provider Willard Waters Unavailable [phone] Unavailable Juan Sandra MD Unavailable [phone] Brigid Guy NP Unavailable Vicente Mooney MD Unavailable Beth Rai MD Unavailable [phone] Michell Espinoza Unavailable Encounter Details Date Type Department Care Team (Late st Contact Info) Description 05/18/2022 Orders Only [facility] MEDICINE [address] [place] [address] Jennie Murray MD 505 [place], [place] [phone] Acute foot pain, unspecified laterality (Primary Dx) [...] 10/27/2024 2:30 PM EDT Office Visit [facility] ADULT DENTAL [address] [place] [address] Venkat Barreto DDS [address] [place] [address] 11/04/2024 11:15 AM EDT Office Visit [facility] MEDICINE [address] [place] [address] Petra Wiley FNP [address] [place] [address] 11/06/2024 3:30 PM EDT Clinical Support [facility] DIABETES/NUTRITION [address] [place] [address] Tamanna Mcintyre, RD [address] [place] [address] 11/25/2024 9:15 AM EDT Office Visit [address] [address] Petra Wiley FNP 505 [place] [address] 01/18/2025 3:00 PM EDT Office Visit [facility] ADULT DENTAL [address] [place] [address] Sanaz Nelson documented as of this encounter Visit Diagnoses Diagnosis Acute foot pain, unspecified laterality- Primary documented in this encounter Care Teams Nutrition Coordinator Relationship Specialty Start Date End Date Jennie Murray MD [address] [place] [address] PCP - General Family Medicine 06/23/13 03/16/24 Petra Wiley FNP [address] [place] [address] PCP - General Family Medicine 03/17/24 Willard Waters [address] [place] [address] Rheumatology 05/17/24 Victoria Sumaya [address] 3rd [place] [address] Gastroenterology 05/17/24 Juan Sandra MD [address] [place] [address] Hematology and Oncology 05/17/24 Brigid Guy NP [address] [place] [address] Urology 05/17/24 Vicente Mooney MD [address] [place] [address] [address] [place] [address] Obstetrics and Gynecology 05/17/24 Beth Rai MD [address] [place] [address] [place] [address] Neurology 05/17/24 Michell Espinoza [address] [facility] [address] 3rd [place] [address] Cardiology 05/17/24 Shelia Zheng Wellness Program ManagerMoving Picture Producer 09/26/23 documented as of this encounter
--- OUTSIDE RECORDS SUMMARY | 2024-10-26 13:44 | XMS_ITS | Clinical Summary ---
Author Organization [employer] Address [address] [facility] [address] [place] [address] Care Team Providers Care Painter And Body Mechanic Apprentice Name Role Phone Petra Wiley WOOD CLUB NECK WHIPPER Primary Care Provider Willard Waters Unavailable [phone] September Unavailable Juan Sandra MD Unavailable [phone] Brigid Guy NP Unavailable Vicente Mooney [...] AL D A 04/24/20 23 Active Creon 30644-085298 units capsule delayed-release particles capsule TOME ADRY C PSULA MINDA VECES AL D A WITH MEALS/SNACKS 11/16/19 23 [...] candidiasis. Do not swallow. 1 each 11 07/29/19 25 Active pregabalin (Lyrica) 75 MG [...] 25 Palpitations 05/17/2024 Overview (05/17/2024): Followed by [facility] Cards Continues on Propranolol 20mg BID (through Cards) Class 1 obesity with body ma ss index (BMI) of 32.0 to 32.9 in adult 05/17/2024 Assessment & Plan (07/29/2024 4:08 PM EST): - Cont following with experimental psychologist and healthy lifestyle interventions Assessment & Plan [...] of medullary thyroid cancer or MEN 2. Infantry Indirect Fire Crewmember referral offered. Recommended to decrease soda and [...] bruising easily 03/17/2024 Overview (03/17/2024): Followed by [facility] Heme/Onc - Dr. Sandra Per consult Jan [...] 04/17/2021 HCT 36.5 (L) 03/18/2024 Following with [facility] Heme/Onc - Dr. Turner Assessment & Plan [...] - Has consulted with Surgery team in [facility] for consideration of excision. Per [...] - Has consulted with Surgery team in [facility] for consideration of excision. Per their consult Mar 2024, identified area has normal lobular fat, no discrete lipoma or nodules. Plan: conservative measures Abnormal uterine bleeding 12/27/2023 Overview (07/29/2024): Following with [facility] LENS GRINDER AND POLISHER - Dr. Mooney EMB performed 04/14/24. Path: [...] Overview (05/17/2024): Lab Results Component Value Date [id number] 19.9 (L) 03/18/2024 [id number] 19 (A) 05/08/2023 - Cont Vit D [...] Overview (05/17/2024): Pap NIL/HPV Neg 11/12/2019 Dental: [facility] Dental Last PE: 06/03/23 Hep B Immune: Mar 2024 Gastroesophageal reflux disease without esophagi tis 06/03/2023 Overview (06/03/2023): ?? Followed by [facility] YASSINE Kessler APRN ?? Continues famotidine and Dexliant through GI Irritable bowel syndrome with constipation 06/03 Overview (03/17/2024): Followed up [facility] YASSINE Kessler APRN Continues Bentyl TID Continues Bisacodyl 10mg nightly Dysphagia, oropharyngeal phase 06/03/2023 Overview (06/03/2023): ?? Followed by [facility] YASSINE Kessler APRN Gastroparesis 06/03/2023 Overview (03/17/2024): Followed by [facility] GI Continues with the following medication regimen for multiple GI symptoms and conditions: Creon, famotidine, psyllium, dicyclomine, simethicone, and Dexliant Previous medications: carafate NURIA positive 06/03/2023 Overview (07/29/2024): Previous followed by [facility] Rheum - Dr. Waters May 2024: Established with [facility] Rheum - Dr. Street NURIA positive 2019: 1:160, anti dna, nicholas, ESR, CRP all wnl Disorder of sesamoid bone of foot 06/03/2023 Overview (06/03/2023): -Left lateral sesamoid stress fx identified Jul 2022 at [facility] -Plan for immobilization in short walking boot and follow up 6 weeks Assessment & Plan (06/03/2023 10:28 PM EST): Plan to request latest records from [facility] and follow up with PCP to discuss eligibility handicap jacob. Fibromyalgia 08/02/2022 Overview (07/29/2024): -Previously: Lyrica 75mg nightly through [facility] Physiatry/Rheum -Lyrica rx from PCP as of [...] Encounters Date Type Department Care Team Description 10/16/2024 Telephone [facility] [address] [place] [address] Petra Wiley FNP Care Coordination 10/16/2024 Telephone [facility] [address] [place] [address] Petra Wiley FNP reschedule derm appt 10/09/2024 Telephone [facility] [address] [place] [address] uMndo Krueger MD Results 10/09/2024 Telephone [facility] [address] [place] [address] Mundo Krueger MD Results 10/08/2024 3:30 PM EDT Office Visit [facility] [address] [place] [address] Mundo Krueger MD Vaginal bleeding (Primary Dx); Gastroesophageal reflux disease without esophagitis 10/08/2024 Travel 10/08/2024 Telephone [facility] [address] [place] [address] Kenisha Torres MD Results; Medication Question 10/06/2024 Telephone [facility] [address] [place] [address] Sylvia Lemons MD 10/06/2024 Telephone [facility] [address] [place] [address] Sylvia Lemons MD Results 10/06/2024 Orders Only GENERIC EXTERNAL DATA DEPARTMENT Provider, Generic External Data 09/27/[address] [facility] WALK-IN CENTER [address] [place] [address] Petra Wiley FNP Vitamin D insufficiency 09/15/2024 Refill [facility] [address] [place] [address] Jennie Murray MD 09/11/2024 2:00 PM EDT Office Visit [facility] ADULT DENTAL [address] [place] [address] Venkat Barreto DDS 09/08/2024 3:00 PM EDT Clinical Support [facility] DIABETES/NUTRITION [address] [place] [address] Class 2 obesity with body mass index (BMI) of 35.0 to 35.9 in adult, unspecified obesity type, unspecified whether serious comorbidity present; Class 1 obesity with body mass index (BMI) of 32.0 to 32.9 in adult, unspecified obesity type, unspecified whether serious comorbidity present 09/08/2024 Travel 09/07/2024 Orders Only [facility] [address] [place] [address] Petra Wiley FNP 09/07/2024 Travel 09/07/[address] [facility] MEDICINE [address] [place], [place] [phone] Petra Wiley FNP August08/28/2024 Population Health Risk Score [facility] () Department [address] [place] [address] [phone] Provider, Population Health Generic 08/18/2024 1:30 PM EST Office Visit [facility] ADULT DENTAL [address] [place] [address] Mary Lou, Venkat, DDS Erythromelalgia ([facility]/HCC) (Primary Dx); Polyarthralgia 08/17/2024 Orders Only GENERIC EXTERNAL DATA DEPARTMENT Provider, Generic External Data 08/17/[address] [facility] MEDICINE [address] [place] [address] Petra Wiley FNP Referral 08/14/2024 1:30 PM EST Clinical Support [facility] DIABETES/NUTRITION [address] [place] [address] Tamanna Mcintyre, RD BMI 35.0-35.9,adult (Primary Dx) 08/14/2024 Travel 08/11/2024 Orders Only GENERIC EXTERNAL DATA DEPARTMENT Provider, Generic External Data 08/04/2024 2:30 PM EST Office Visit [facility] OPTOMETRY [address] [place] [address] Waqas, Cristine, OD Hordeolum internum of left lower eyelid (Primary Dx); Dry eyes, bilateral; White without pressure of peripheral retina of both eyes; Hyperopia of right eye 08/04/2024 Travel 07/31/[address] [facility] MEDICINE [address] [place] [address] Petra Wiley FNP Patient request 07/29/2024 10:30 AM EST Office Visit [facility] MEDICINE [address] [place] [address] Petra Wiley FNP Asthma, unspecified asthma severity, [...] unspecified whether serious comorbidity present 07/29/2024 Travel from Last 3 Months Immunizations Name [...] the past 12 months, has t he [employer], Chatter[employer], oil or water [email or web address] threatened to shut off services in your [...] 2:30 PM EDT Office Visit [facility] ADULT DENTAL [address] [place] [address] Venkat Barreto DDS [address] [place] [address] 11/04/2024 11:15 AM EDT Office Visit [facility] MEDICINE [address] [place] [address] Petra Wiley FNP [address] [place] [address] 11/06/2024 3:30 PM EDT Clinical Support [facility] DIABETES/NUTRITION [address] [place] [address] Tamanna Mcintyre, RD [address] [place] [address] 11/25/2024 9:15 AM EDT Office Visit [facility] MEDICINE [address] [place] [address] Saurabh Petra, WOOD CLUB NECK WHIPPER [address] [place] [address] 01/18/2025 3:00 PM EDT Office Visit [facility] CHC ADULT DENTAL [address] [place] [address] Sanaz Nelson Health Maintenance Due Date Last [...] Diagnosis Comments TSH W/REFLEX TO FT4 Routine 10/08/2024 4 :07 PM EDT Vaginal bleeding CBC Routine 10/08/2024 4:07 PM EDT Vaginal [...] URINE, ROUTINE Routine 08/11/2024 2:36 PM EST PROPHYLAXIS - ADULT Routine 07/20/2024 3 :00 PM EST BITEWINGS - 4 RADIOGRAPHIC IMAGES Routine 07/20/2024 3:00 PM EST HEPATITIS C VIRAL RNA, [...] Relevant to Health Maintenance Results * TSH W/Reflex to FT4 (10/08/2024 4:07 PM EDT) Only the most recent of2 resultswithin the time period is included. Pathologist [facility] TSH reflex Free T4 1.00 0.32 - 4.0 uIU/mL [facility] Blood Venous blood specimen / Unknown 10/08/2024 4:07 PM EDT 10/08/2024 5:43 PM EDT Mundo Krueger MD LAB BLOOD ORDERABLES Final Result [facility] [address] [place] [address] [phone] * (ABNORMAL) CBC (10/08/2024 4:07 PM EDT) Only the most recent of2 resultswithin the time period is included. Pathologist [facility] White Blood Count 9.7 4.8 - 10.8 X10*3/uL [facility] Red Blood Count 3.98(L) 4.20 - 5.50 X10*6/uL [facility] Hemoglobin 9.4(L) 12.0 - 16.0 g/dl [facility] Hematocrit 31.0(L) 37.0 - 47.0 % [facility] Mean Corpuscular Volume 77.9(L) 80.0 - 98.0 fL [facility] Mean Corpuscular Hemoglobin 23.6(L) 27.0 - 33.0 pg [facility] Mean Corpuscular HGB Conc 30.3(L) 31.0 - 35.0 g/dl [facility] Red Cell Distribution Width 15.7 11.0 - 16.0 % [facility] Platelet Count 371 160 - 400 X10*3/uL [facility] Mean Platelet Volume 12.2 9.4 - 12.3 fL [facility] NRBC Pct Auto 0.0 0.0 - 0.2 /100WBC [facility] NRBC Abs Auto 0.000 0.0 - 0.012 X10*3/uL [facility] Blood Venous blood specimen / Unknown 10/08/2024 4:07 PM EDT 10/08/2024 5:43 PM EDT us Mundo Krueger MD LAB BLOOD ORDERABLES Final Result [facility] [address] [place] [address] [phone] * Chlamydia/N. Gonorrhoeae RNA, TMA, Urogenitial (10/06/2024 1:10 PM EDT) CT PCR NOT DETECTED Not Detect. [facility] Comment:A not detected test result [...] psychologicalconsequences. NG PCR NOT DETECTED Not Detect. [facility] Comment:A not detected test result [...] PM EDT 10/06/2024 3:37 PM EDT Narrative [facility] - 10/07/2024 10:11 AM EDT Vaginal Generic External Data Provider LAB MICROBIOLOGY - GENERAL ORDERABLES Final Result Performing Organization Address [facility] de Phone Number [facility] [address] [place] [address] [phone] * hCG, Total, Quantitative (10/06/2024 1:05 PM EDT) HCG Quantitative <2 mIU/mL [facility] Comment:Weeks post LMP Appro ximate hCG(Last Menstrual Period) Range (mIU/ml)3 - 4 weeks 9 - 1304 - 5 weeks 75 - 2,6005 - 6 weeks 850 - 20,8006 - 7 weeks 4000 - 100,2007 - 12 weeks 11,500 - 289,84235 - 16 weeks 18,300 - 137,66687 - 29 weeks (2nd trimester) 1,400 - 53,43805 - 41 weeks (3rd trimester) 940 - [...] ORDERAB LES Final Result Performing Organization Address [facility] Co de Phone Number [facility] [address] [place] [address] [phone] * BI US Breast Limited Right (09/01/2024 12:30 PM EDT) Anatomical Region Laterality Modality Breast Right Ultrasound 09/01/2024 12:3 0 PM EDT Narrative 09/01/2024 3:58 PM EDT ? [facility] ? [address] ?[place] [address] ? Ultrasound Report ? Signed ? Patient: Lowell Anaya,Ambika ?MR#: [id number] ?? [id number] ? : 1985 ?Acct:[id number] ? Age/Sex: 39 / F ?ADM Date: 09/01/24 ? Loc: HO.MAMMO ? Attending Dr: Petra VALENCIAP ? Ordering Physician: Petra Wiley ?? Date of Service: 09/01/24 ?? Procedure(s): US breast RT limited ?? Accession Number(s): [id number] ? cc: Petra Wiley ? EXAMINATION: ?? [...] DD/ 1230 ? TD/TT: 09/01/24 1332 ? Workforce Analyst: ? Procedure Note Epi, Image - 09/01/2024 [facility] [address] [place] [address] [place] [address] Ultrasound Report Signed Patient: Ambika McdermottMR#: [id number] : 1985Acct:[id number] Age/Sex: 39 / FADM Date: 09/01/24 Loc: HO.MAMMO Attending Dr: Petra LUCERO Ordering Physician: Petra Wiley Date of Service: 09/01/24 Procedure(s): US breast RT limited Accession Number(s): [id number] cc: Petra Wiley EXAMINATION: MM DIAGNOSTIC DIGITAL [...] 09/01/24 1555 DD/ 1230 TD/TT: 09/01/24 1332 Workforce Analyst: us Petra Wiley WOOD CLUB NECK WHIPPER IMG US PROCEDURES Final Result * BI Mammogram Diagnostic Tomosynthesis Bilateral (09/01/2024 12:30 PM EDT) Anatomical Region Laterality Modality Breast Bilateral Mammography 09/01/2024 12:3 0 PM EDT Narrative 09/01/2024 3:58 PM EDT ? [facility] ? [address] ?[place] [address] ? Mammography Report ? Signed ? Patient: Lowell Anaya,Ambika ?MR#: [id number] ?? [id number] ? : 1985 ?Acct:[id number] ? Age/Sex: 39 / F ?ADM Date: 09/01/24 ? Loc: HO.MAMMO ? Attending Dr: Petra Wiley WOOD CLUB NECK WHIPPER ? Ordering Physician: Petra Wiley WOOD CLUB NECK WHIPPER ?Results: 3.6MPr ?? obably Benign Finding - Short 6 M F/U Suggested ? Date of Service: 09/01/24 ?Follow Up: 6 Month F/U ? Procedure(s): MM tomosynthesis diagnostic BI ?? Accession Number(s): [id number] ? cc: Petra Wiley WOOD CLUB NECK WHIPPER ? EXAMINATION: ?? MM DIAGNOSTIC DIGITAL BREAST [...] DD/ 1230 ? TD/TT: 09/01/24 1332 ? Workforce Analyst: ? Procedure Note Rain Chowdary - 09/01/2024 [facility] [address] [place] [address] Dr. [place], [place] [address] Mammography Report Signed Patient: Ambika Mcdermott#: [id number] : 1985Acct:[id number] Age/Sex: 39 / FADM Date: 09/01/24 Loc: HO.MAMMO Attending Dr: Petra Wiley WOOD CL[employer] NECK WHIPPER Ordering Physician: Petra Wiley FNPResults: 3.6MPr obably Benign Finding - Short 6 M F/U Suggested Date of Service: 09/01/24Follow Up: 6 Month F/U Procedure(s): MM tomosynthesis diagnostic BI Accession Number(s): [id number] cc: Petra Wiley WOOD CLUB NECK WHIPPER EXAMINATION: MM DIAGNOSTIC DIGITAL BREAST TOMOSYNTHESIS, BILATERAL [...] 09/01/24 1555 DD/ 1230 TD/TT: 09/01/24 1332 Workforce Analyst: us Petra Wiley WOOD [employer] NECK WHIPPER IMG BI PROCEDURES Final Result * Urinalysis w/reflex microscopic (08/17/2024 2:00 PM EST) Color Urine Yellow [facility] Appearance Urine Clear [facility] PH 5.5 5.0 - 9.0 [facility] Glucose Urine UA Negative Negative mg/dL [facility] Urine Blood Negative Negative [facility] Specific [place] - Urine 1.010 1.005 - 1.025 [facility] Urine Protein Negative Neg-Trace mg/dL [facility] Urine Ketones Negative Negative mg/dL [facility] Nitrite Urine Negative Negative [facility] Leukocyte Esterase Urine Negative Negative [facility] 08/17/2024 2:00 PM EST 08/17/2024 2:25 PM EST Narrative [facility] - 08/17/2024 2:36 PM EST Urine, Clean Catch Generic External Data Provider LAB URINE ORDERAB LES Final Result [facility] [address] [place] [phone] * Culture, Urine, Routine (08/11/2024 2:36 PM EST) Urine Urine specimen obtained by clean catch procedure / Unknown 08/11/2024 2:36 PM EST 08/11/2024 4:01 PM EST Comment:[facility] - 08/13/2024 9:47 AM EST Urine Culture Report Result Urine Culture 10,000 to 50,000 cfu/ml Urine Culture Mixed bacterial terry characteristic of Urine Culture urogenital contamination. Specimen Source: Urine clean catch us Generic External Data Provider LAB MICROBIOLOGY - GENERAL ORDERABLES Final Result Performing Organization Address [facility]/ZIP Co de Phone Number [facility] [address] [place] [phone] * Hepatitis C Viral RNA, Quantitative, Real-Time PCR (03/18/2024 2:05 PM EDT) [facility] Hepatitis C Viral Load <15 NOT DETECTED NOT DETECTED IU/mL [facility] HCV Log PCR <1.18 NOT DETECTED NOT DETECTED Log IU/mL [facility] Comment:For additional infor felton, please refer tohttp://education.[employer]/faq/ZHP14y1(This link is being provided for informational/educational purposes only.)THIS TEST WAS PERFORMED AT:[employer] [place] [phone] DEL CID MD Blood 03/18/2024 2:05 PM EDT 03/18/2024 2:05 PM EDT Petra Wiley WOOD [employer] NECK WHIPPER LAB BLOOD ORDERABLES Final Res ult Performing Organization Address [facility] de Phone Number [facility] [address] [place] [phone] * HIV-1/2 Antigen and Antibodies, Fourth Generation, with Reflexes (03/18/2024 2:05 PM EDT) [facility] HIV AB/AG Nonreactive Nonreactive [facility] Comment:HIV-1 p24 Ag and/or HIV-1/HIV-2 Ab not detected.A test result that is nonreactive does not exclude thepossibility of exposure to or infection with HIV-1 and/orHIV-2. Nonreactive results in this assay for individualswith prior exposure to HIV-1 and/or HIV-2 may be due toantigen and antibody levels that are below the limit ofdetection of this assay.The [employer] HIV Ag/Ab Combo assay result andsupplemental assay results should be interpreted inconjunction with the patient's clinical presentation,history and other laboratory results. If the results areinconsistent with clinical evidence, additional testing issuggested to confirm the result. Blood Venous blood specimen / Unknown 03/18/2024 2:05 PM EDT 03/18/2024 2:05 PM EDT Petra Isaiaskiersten [facility] LAB BLOOD ORDERABLES Final Res ult [facility] [address] [place] [address] [phone] * (ABNORMAL) Lipid Panel, Standard (03/18/2024 2:05 PM EDT) Triglycerides 100 <150 mg/dL [facility] Comment:Desirable Triglyceri de: less than 150 mg/dLBorderline High Triglyceride 150-199 mg/dLHigh Triglyceride: 200-499 mg/dLVery High Triglyceride: greater than or equal to 5OO mg/dL Cholesterol 200(H) <200 mg/dL [facility] Comment:Desirable Cholestero l: less than 200 mg/dLBorderline High Cholesterol: 200-239 mg/dLHigh Cholesterol: greater than 239 mg/dL LDL Cholesterol Calculated 128(H) <100 mg/dL [facility] Comment:Desirable LDL: less than 100 mg/dLNear Optimal/Above Optimal LDL: 110- 129 mg/dLBorderline High LDL: 130-159 mg/dLHigh LDL: 160-189 mg/dLVery High LDL: greater than or equal to 190 mg/dL HDL Cholesterol 52 >40 mg/dL [facility] Comment:Desirable HDL: great er than 40 mg/dL Note: This HDL assay may give artificially low results in patients with liver disease. Blood Venous blood specimen / Unknown 03/18/2024 2:05 PM EDT 03/18/2024 2:05 PM EDT Petra Wiley [facility] LAB BLOOD ORDERABLES Final Res ult [facility] [address] [place] [address] [phone] * Pap Smear (11/12/2019 12:00 AM EDT) Swab us Historical Provider MD LAB CYTOLOGY ORDERABLES F inal Result EXTERNAL LAB from Last 3 Months or Most Recently Relevant to Health Maintenance Insurance [facility] C3 DENTAL-[facility] MEDICAID STAND ADULT Care Teams Painter And Body Mechanic Apprentice Relationship Specialty Start Date End Date Saurabh PetraNIC salvador [address] [place] [address] PCP - General Family Medicine 03/17/24 Willard Waters [address] [place] [address] Rheumatology 05/17/24KesslerSeptember [address] [place] [address] Gastroenterology 05/17/24 Juan Sandra MD [address] [place] [address] Hematology and Oncology 05/17/24 Brigid Guy NP [address] [place] [address] Urology 05/17/24 Vicente Mooney MD [address] [place] [address] [address] [place] [address] Obstetrics and Gynecology 05/17/24 Beth Rai MD [address] [place] [address] [address] [place] [address] Neurology 05/17/24 Michell Espinoza [address] [facility] [address] [place] [address] Cardiology 05/17/24 [facility] Quiller RunnerNight Court Magistrate 09/26/23
--- OUTSIDE RECORDS SUMMARY | 2024-10-26 13:44 | XMS_ITS | Encounter Summary ---
Author Organization [employer] Address [address] [facility] 7t [place] [address] Care Team Providers Care Machine Tool Electrician Name Role Phone Jennie Murray MD Primary Care Provider Petra Wiley Primary Care Provider Willard Waters Unavailable [phone] September Unavailable Juan Sandra MD Unavailable [phone] Brigid Guy NP Unavailable Vicente Mooney MD Unavailable Beth Rai MD Unavailable Michell Espinoza Unavailable Encounter Details Date Type Department Care Team (Late st Contact Info) Description 07/26/2022 Orders Only [facility] MEDICINE [address] [place] [address] Nelson Medrano MD [address] [place] [address] [phone] Chronic idiopathic constipation (Primary Dx) Social History [...] Description 10/27/2024 2:30 PM EDT Office Visit [facility] ADULT DENTAL [address] [place] [address] Venkat Barreto DDS [address] [place] [address] 11/04/2024 11:15 AM EDT Office Visit [facility] MEDICINE [address] [place] [address] Petra Wiley FNP [address] [place] [address] 11/06/2024 3:30 PM EDT Clinical Support [facility] DIABETES/NUTRITION [address] [place] [address] Tamanna Mcintyre, ANGELINA [address] [place] [address] 11/25/2024 9:15 AM EDT Office Visit [facility] MEDICINE [address] [place] [address] Petra Wiley FNP [address] [place] [address] 01/18/2025 3:00 PM EDT Office Visit [facility] ADULT DENTAL [address] [place] [address] Sanaz Nelson documented as of this encounter Visit Diagnoses Diagnosis Chronic idiopathic constipation- Primary Unspecified constipation documented in this encounter Additional Health Concerns Assessment Noted Time PHQ-9 Depression Total Score: 0 07/04/19 3:01 PM EST documented as of this encounter Care Teams Machine Tool Electrician Relationship Specialty Start Date End Date Jennie Murray MD [address] [place] [address] PCP - General Family Medicine 06/23/13 03/16/24 Petra Wiley FNP [address] [place] [address] PCP - General Family Medicine 03/17/24 Willard Waters [address] [place] [address] Rheumatology 05/17/24 Victoria Sumaya [address] [facility] 3rd [place] [address] Gastroenterology 05/17/24 Juan Sandra MD [address] [place] [address] Hematology and Oncology 05/17/24 Brigid Guy NP [address] [place] [address] Urology 05/17/24 Vicente Mooney MD [address] [place] [place] [address] [address] [place] [address] Obstetrics and Gynecology 05/17/24 Beth Rai MD [address] [place] [address] [address] [place] [address] Neurology 05/17/24 Michell Espinoza [address] [facility] [address] [place] [address] Cardiology 05/17/24 [facility] Assembly DetailerForepart Laster 09/26/23 documented as of this encounter
--- OUTSIDE RECORDS SUMMARY | 2024-10-26 13:44 | XMS_ITS | Encounter Summary ---
Author Organization [employer] Address 75 [facility] 7t [place] [address] Care Team Providers Care Carriage Setter Name Role Phone Jennie Murray MD Primary Care Provider Petra Wiley Primary Care Provider Willard Waters Unavailable [phone] VictoriaSeptember Unavailable Juan Sandra MD Unavailable [phone] Brigid Guy NP Unavailable Vicente Mooney MD Unavailable Beth Rai MD Unavailable [phone] Michell Espinoza Unavailable Reason for Visit * Reason Onset Date Comments Appointment Request 12/25/2023 Encounter Details Date Type Department Care Team (Late st Contact Info) Description 12/25/2023 Telephone [facility] MEDICINE [address] [place] [address] Jennie Murray MD [address] [place], [place] [phone] Appointment Request Social History Tobacco Use Types [...] 1:07 PM EDT Tc from Patrice, career information specialist with [facility], calling to schedule appt for pt. Pt is awaiting transfer pt appt with Dr. Wiley in which mortgage underwriter attempted to schedule but found no availability. Please contact Patrice at [phone]. documented in this encounter Plan of Treatment Upcoming Encounters Date Type Department Care Team (Late st Contact Info) Description 10/27/2024 2:30 PM EDT Office Visit [facility] ADULT DENTAL [address] [place] [address] Venkat Barreto DDS [address] [place] [address] 11/04/2024 11:15 AM EDT Office Visit [facility] MEDICINE [address] [place], [place] [phone] Petra Wiley FNP [address] [place] [address] 11/06/2024 3:30 PM EDT Clinical Support [facility] DIABETES/NUTRITION [address] [place] [address] Tamanna Mcintyre, RD [address] [place] [address] 11/25/2024 9:15 AM EDT Office Visit [facility] MEDICINE [address] [place] [address] Petra Wiley FNP [address] [place] [address] 01/18/2025 3:00 PM EDT Office Visit [facility] CHC ADULT DENTAL 505 [place] [address] Sanaz Nelson documented as of this encounter Visit Diagnoses Not on filedocumented in this encounter Additional Health Concerns Assessment Noted Time PHQ-9 Depression Total Score: 0 07/04/19 23 3:01 PM EST documented as of this encounter Care Teams Carriage Setter Relationship Specialty Start Date End Date Jennie Murray MD 230 [place] [address] PCP - General Family Medicine 06/23/13 03/16/24 Petra Wiley FNP [address] [place] [address] PCP - General Family Medicine 03/17/24 Willard Waters [address] [place] [address] Rheumatology 05/17/24 Sumaya Kessler [address] [place] [address] Drive 3rd [place] [address] Gastroenterology 05/17/24 Juan Sandra MD [address] [place] [address] Hematology and Oncology 05/17/24 Brigid Guy NP [address] [place] [address] Urology 05/17/24 Vicente Mooney MD [address] [place] [address] [address] [place] [address] Obstetrics and Gynecology 05/17/24 Beth Rai MD [address] [place] [address] Neurology 05/17/24 Michell Espinoza 11 [facility] 3rd [place] [address] Cardiology 05/17/24 Shelia Zheng Neurology TechnicianAssociate Professor Of Mathematics 09/26/23 documented as of this encounter
--- OUTSIDE RECORDS SUMMARY | 2024-10-26 13:44 | XMS_ITS | Encounter Summary ---
Author Organization [employer] Address 75 [facility] 7t [place] [address] Care Team Providers Care Sports Marketing Coordinator Name Role Phone Petra Wiley ENVIRONMENTAL FIELD SERVICES TECHNICIAN Primary Care Provider Willard Waters Unavailable [phone] September Unavailable Juan Sandra MD Unavailable [phone] Brigid Guy NP Unavailable Vicente Mooney MD Unavailable Beth Rai MD Unavailable [phone] Michell Espinoza Unavailable Encounter Details Date Type Department Care Team (Late st Contact Info) Description 05/20/2024 Orders Only [facility] CHC MED & PEDS 505 [place], [place] [phone] Provider, MD Addie Social History Tobacco Use [...] Description 10/27/2024 2:30 PM EDT Office Visit [facility] ADULT DENTAL [address] [place] [address] Venkat Barreto DDS [address] [place] [address] 11/04/2024 11:15 AM EDT Office Visit [facility] MEDICINE [address] [place] [address] Petra Wiley, NIC 505 [place] [address] 11/06/2024 3:30 PM EDT Clinical Support [facility] DIABETES/NUTRITION [address] [place] [address] Tamanna Mcintyre, ANGELINA 230 [place] [address] 11/25/2024 9:15 AM EDT Office Visit [facility] MEDICINE [address] [place] [address] Petra Wiley FNP 505 [place] [address] 01/18/2025 3:00 PM EDT Office Visit [facility] CHC ADULT DENTAL [address] [place] [address] Sanaz Nelson documented as of this encounter [...] documented as of this encounter Care Teams Sports Marketing Coordinator Relationship Specialty Start Date End Date Petra Wiley FNP [address] [place] [address] PCP - General Family Medicine 03/17/24 Willard Waters [address] [place] [address] Rheumatology 05/17/24 Victoria Sumaya [address] [facility] [facility] [address] 3rd [place] [address] Gastroenterology 05/17/24 Juan Sandra MD [address] [place] [address] Hematology and Oncology 05/17/24 Brigid Guy NP [address] [place] [address] Urology 05/17/24 Vicente Mooney MD [address] [place] [address] [address] [place] [address] Obstetrics and Gynecology 05/17/24 Beth Rai MD [address] [place] [address] [place] [address] Neurology 05/17/24 Michell Espinoza [address] [facility] [address] 3rd [place] [address] Cardiology 05/17/24 Shelia Zheng Expressive Art TherapistSawsmith 09/26/23 documented as of this encounter
--- OUTSIDE RECORDS SUMMARY | 2024-10-26 13:44 | XMS_ITS | Encounter Summary ---
Author Organization [employer] Address 75 [facility] 7t [place] [address] Care Team Providers Care Needle Bar Molder Name Role Phone Jennie Murray MD Primary Care Provider [phone] Petra Wiley Primary Care Provider Willard Waters Unavailable [phone] Kesslerseptember Unavailable Juan Sandra MD Unavailable Brigid Guy NP Unavailable Vicente Mooney MD Unavailable Beth Rai MD Unavailable [phone] Michell Espinoza Unavailable Encounter Details Date Type Department Care Team (Latest Contact Info) Description 09/12/2020 Abstract [facility] CONVERSIONS Dental, Provider, DDS Social History [...] Description 10/27/2024 2:30 PM EDT Office Visit [facility] ADULT DENTAL [address] [place], [place] [phone] Venkat Barreto DDS [address] [place], [place] [phone] 11/04/2024 11:15 AM EDT Office Visit [facility] MEDICINE [address] [place] [address] Petra Wiley FNP 505 [place] [address] 11/06/2024 3:30 PM EDT Clinical Support [facility] DIABETES/NUTRITION [address] [place] [address] Tamanna Mcintyre, RD 230 [place] [address] 11/25/2024 9:15 AM EDT Office Visit [facility] MEDICINE [address] [place] [address] Petra Wiley FNP 505 [place] [address] 01/18/2025 3:00 PM EDT Office Visit [facility] CHC ADULT DENTAL 505 [place] [address] Sanaz Nelson documented as of this encounter Visit Diagnoses Not on filedocumented in this encounter Care Teams Needle Bar Molder Relationship Specialty Start Date End Date Jennie Murray MD [address] [place] [address] PCP - General Family Medicine 06/23/13 03/16/24 Petra Wiley FNP [address] [place] [address] PCP - General Family Medicine 03/17/24 Willard Waters [address] [place] [address] Rheumatology 05/17/24 Sumaya Kessler [address] 3rd [place] [address] Gastroenterology 05/17/24 Juan Sandra MD 575 [place] [address] Hematology and Oncology 05/17/24 Brigid Guy NP [address] [place] [address] Urology 05/17/24 Vicente Mooney MD [address] [place] [address] Obstetrics and Gynecology 05/17/24 Beth Rai MD [address] [place] [address] [address] Neurology 05/17/24 Michell Espinoza 11 [facility] 3rd [place] [address] Cardiology 05/17/24 Shelia Zheng Box Truck WasherInformation Technology Professor 09/26/23 documented as of this encounter
--- OUTSIDE RECORDS SUMMARY | 2024-10-26 13:44 | XMS_ITS | Encounter Summary ---
Author Organization [employer] Address [address] [facility] 7t [place] [address] Care Team Providers Care Hyperbaric Technician Name Role Phone Jennie Murray MD Primary Care Provider Petra Wiley Primary Care Provider [phone] Willard Waters Unavailable [phone] Sumaya Kessler Unavailable Juan Sandra MD Unavailable [phone] Brigid Guy NP Unavailable Vicente Mooney [...] (Late st Contact Info) Description 08/21/2022 Telephone [facility] ADULT DENTAL [address] [place] [address] Venkat Barreto DDS [address] [place] [address] Appointment (Ambika Anaya 1985 Patient [...] Description 10/27/2024 2:30 PM EDT Office Visit [facility] ADULT DENTAL [address] [place] [address] Venkat Barreto DDS [address] [place] [address] 11/04/2024 11:15 AM EDT Office Visit [facility] MEDICINE [address] [place] [address] Petra Wiley FNP [address] [place] [address] 11/06/2024 3:30 PM EDT Clinical Support [facility] DIABETES/NUTRITION [address] [place] [address] Tamanna Mcintyre, RD [address] [place] [address] 11/25/2024 9:15 AM EDT Office Visit [facility] MEDICINE [address] [place] [address] Petra Wiley FNP 505 [place] [address] 01/18/2025 3:00 PM EDT Office Visit [facility] CHC ADULT DENTAL 505 [place] [address] Sanaz Nelson documented as of this encounter Visit Diagnoses Not on filedocumented in this encounter Additional Health Concerns Assessment Noted Time PHQ-9 Depression Total Score: 0 07/04/19 23 3:01 PM EST documented as of this encounter Care Teams Hyperbaric Technician Relationship Specialty Start Date End Date Jennie Murray MD 230 [place] [address] PCP - General Family Medicine 06/23/13 03/16/24 Petra Wiley FNP [address] [place] [address] PCP - General Family Medicine 03/17/24 Willard Waters [address] [place] [address] Rheumatology 05/17/24 Victoria Sumaya [address] [place] [address] Drive 3rd [place] [address] Gastroenterology 05/17/24 Juan Sandra MD [address] [place] [address] Hematology and Oncology 05/17/24 Brigid Guy NP [address] [place] [address] Urology 05/17/24 Vicente Mooney MD [address] [place] [address] [address] [place] [address] Obstetrics and Gynecology 05/17/24 Beth Rai MD [address] [place] [address] Dr [facility] [address] [place] [address] Neurology 05/17/24 Michell Espinoza [address] [facility] [address] 3rd [place] [address] Cardiology 05/17/24 Shelia Zheng Rn OrthopaedicCorrespondence Renew Clerk 09/26/23 documented as of this encounter
== END 2024-10-26 13:25 | disposition home or self-care (01) ==
LOC: HO.US 13:24
PROVIDERS: PCP Registered Nurse; Visit Provider Nurse Practitioner Family
DX: N20.0 Calculus of kidney (principal)
CPT/HCPCS: 76775

== ENCOUNTER → 2024-10-26 13:27 | Outpatient (BNV) | payer MEDICAID, SELFPAY | PROVIDERS: PCP Registered Nurse; Visit Provider Radiology Diagnostic Radiology | DX: N20.0 Calculus of kidney (principal) | CPT/HCPCS: 76775 ==

== ENCOUNTER 2024-11-03 13:30 | Outpatient (RCR) | payer MEDICAID, SELFPAY ==
[2024-10-09 14:57] VITALS: BP 109/76; PULSE 95; RESP 16; TEMP 36.6; O2SAT 100
[2024-10-09] MEDS: Iron Sucrose Complex 200 MG in 0.9 % Sodium Chloride 100 ML 440 MG IV (15:06)
--- NOTE | 2024-10-09 15:12 | P.PNHO-ONC_ITS ---
Medical Summary - Medical Summary Date of Service: 10/09/24 Chief complaint: Follow up for: anemia. Primary Care Provider: NIC Rudd Executive Wellness Programs Director Utilized?: Yes - Language Home Service Director (Mary Guy CMA.) [facility] Medical History: Medical History (Last Reviewed 10/06/24 @ 14:30 by Vicente Mooney MD) Acute diarrhea NURIA positive Breast lump Jaylyn albicans infection Diarrhea Fibroadenoma Fibroadenoma of both breasts Fibromyalgia History of thyroiditis Hives Hx of lipoma Left flank pain, chronic Left hip pain Lipoma Myalgia Nausea and vomiting Nephrolithiasis Obesity Oropharyngeal dysphagia Palpitations Rectal bleeding Recurrent nephrolithiasis Small intestinal bacterial overgrowth (SIBO), hydrogen subtype Toe swelling Upper abdominal pain Vitamin D deficiency Vulvovaginal candidiasis Vulvovaginitis Vulvovaginitis jaylyn albicans Family History: Family History (Last Reviewed 10/06/24 @ 14:30 by Vicente Mooney MD) Father Diabetes Heart attack Asthma Maternal Grandmother Diabetes HTN (hypertension) Parkinson disease Breast cancer Mother Diabetes Family history of diabetes mellitus Sister Asthma Maternal Grandfather Parkinson disease Surgical History: Surgical History (Last Reviewed 10/06/24 @ 14:30 by Vicente Mooney MD) History of esophagogastroduodenoscopy (EGD) History of wisdom tooth extraction Social History: Social History (Last Reviewed 10/06/24 @ 14:30 by Vicente Mooney MD) Living Situation History: Household Members: Children Housing: Condominium Are you a primary critical care unit manager to a significant other at home: No Do you presently have visiting nurse 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 Do you presently have visiting nurse or other home services comment: awning erector Tobacco History: Patient Tobacco Use Status: Never used Tobacco Second Hand Smoke Exposure: Yes Second Hand Smoke Exposure comment: Neighbors Occupation Assessmet: service: No Current occupational status: disabled Sex/Gender Assessment: Sexual orientation: Straight/Heterosexual Gender identity: Female Home Medications and Allergies Current Medications: Current Medications Iron Sucrose 200 mg/ Sodium (Chloride) 110 mls @ 440 mls/hr IV ONCE PRN PRN Reason: Infusion Center Last Admin: 10/09/24 15:06 Dose: 440 mls/hr Sodium Chloride (0.9 % Sodium Chloride Flush 10 Ml Syringe) 5 ml IVFLUSH ONCE PRN PRN Reason: Infusion Center Home Medications ?Medication ?Instructions ?Recorded ?Confirmed ?Type lorazepam 1 mg tablet 1 mg PO BEDTIME PRN Anxiety 03/29/20 10/09/24 History ibuprofen 400 mg tablet 400 mg PO Q4-6H PRN Pain 11/20/21 10/09/24 History albuterol sulfate 90 mcg/actuation 1 inh inhalation QID 09/19/22 10/09/24 History aerosol inhaler (Ventolin HFA) loratadine 5 mg/5 mL oral solution 10 ml PO DAILY 09/19/22 10/09/24 History (Children's Allergy Relief (loratadine)) pregabalin 75 mg capsule 75 mg PO BID 11/20/23 10/09/24 History nabumetone 750 mg tablet 750 mg PO BID 03/25/24 10/09/24 History fexofenadine 180 mg tablet 180 mg PO DAILY 04/07/24 10/09/24 History azelastine 137 mcg (0.1 %) nasal 1 spray intranasal BID PRN 04/17/24 10/09/24 History spray allergies cholecalciferol (vitamin D3) 25 25 mcg PO DAILY 04/17/24 10/09/24 History mcg (1,000 unit) tablet ferrous sulfate 142 mg (45 mg 142 mg PO BID 10/09/24 10/09/24 History iron) tablet,extended release Allergies Allergy/AdvReac Type Severity Reaction Status Date / Time Iodinated Contrast Media Allergy Intermediate SHORTNESS Verified 10/06/24 13:23 [IV DYE, IODINE CONTAINING OF BREATH CONTRAST ] citalopram [From CELEXA] Allergy Unknown VOMITTING Verified 10/06/24 13:23 duloxetine [Cymbalta] Allergy Unknown unknown Verified 10/06/24 13:23 morphine [MORPHINE] Allergy Unknown PALPITATIONS-PT Verified 10/06/24 13:23 PREFERS NOT TO TAKE tramadol [TRAMADOL] Allergy Unknown VOMITING Verified 10/06/24 13:23 Exam Vital signs: Vital Signs Temp 98 F 10/09/24 14:57 Pulse 95 10/09/24 14:57 Resp 16 10/09/24 14:57 BP 109/76 10/09/24 14:57 Pulse Ox 100 10/09/24 14:57 O2 Del Method Room Air 10/09/24 14:57
[2024-10-21 14:37] VITALS: BP 99/69; PULSE 86; RESP 16; TEMP 36.7; O2SAT 100
[2024-10-21] MEDS: Iron Sucrose Complex 200 MG in 0.9 % Sodium Chloride 100 ML 440 MG IV (14:41)
[2024-10-26 14:11] VITALS: BP 110/52; PULSE 92; RESP 16; TEMP 37.2; O2SAT 100
[2024-10-26] MEDS: Iron Sucrose Complex 200 MG in 0.9 % Sodium Chloride 100 ML 440 MG IV (14:24)
[2024-11-03 13:22] VITALS: BP 113/70; PULSE 85; RESP 16; TEMP 36.7; O2SAT 100
[2024-11-03] MEDS: Iron Sucrose Complex 200 MG in 0.9 % Sodium Chloride 100 ML 440 MG IV (13:32)
[2024-11-03 13:33] LABS: Hematocrit 37.8 % (37.0-47.0); Hemoglobin 11.9 g/dl (12.0-16.0); Mean Corpuscular HGB Conc 31.5 g/dl (31.0-35.0); Mean Corpuscular Hemoglobin 25.9 pg (27.0-33.0); Mean Corpuscular Volume 82.2 fL (80.0-98.0); Mean Platelet Volume 10.7 fL (9.4-12.3); Platelet Count 280 X10*3/uL (160-400); Red Cell Distribution Width 19.1 % (11.0-16.0); White Blood Count 7.6 X10*3/uL (4.8-10.8)
[2024-11-03 14:14] LABS: Ferritin 148 ng/mL (10-122)
== END 2024-11-03 14:26 | disposition home or self-care (01) ==
LOC: HO.INF 13:30
PROVIDERS: PCP Registered Nurse; Visit Provider Nurse Practitioner Family
DX: D64.9 Anemia, unspecified (principal)
CPT/HCPCS: 36415; 82728; 85027; 96374; J1756

== ENCOUNTER 2024-11-04 13:19 | Outpatient (REF) | payer MEDICAID, SELFPAY ==
--- NOTE | ~2024-11-04 | US_ITS ---
EXAMINATION: US PELVIS CLINICAL INFORMATION: Abnormal uterine and vaginal bleeding, unspecified. COMPARISON: 05/18/2024. TECHNIQUE: Ultrasound of the pelvis is performed using both transabdominal and transvaginal transducers along with Doppler. Transvaginal imaging is performed due to inadequate visualization transabdominally. FINDINGS: Uterus: The uterus is anteverted, retroflexed, and measures 8.5 x 4.2 x 4.3 cm. The cervix has a normal sonographic appearance. There are small nabothian cysts present. The double wall endometrial thickness is 5 mm. There is an IUD in place in good position. The uterus is smooth in contour and has heterogeneous echogenicity. There are 2 small fibroids identified: There is a left fundal intramural fibroid measuring 2.0 x 1.6 x 1.6 cm (previously 1.7 x 1.4 x 1.5 cm). There is a dorsal midline subserosal fibroid measuring 0.8 x 0.6 x 1.0 cm. (Previously 1.1 x 0.8 x 1.2 cm). Adnexa: Both ovaries are visualized. There is normal color flow to the adnexa. There is no ovarian torsion. There is no pelvic ascites or fluid collection. Right ovary measures 4.5 x 2.2 x 2.8 cm. Volume = 15.0 mL. Normal sonographic appearance. Left ovary measures 1.9 x 1.4 x 1.8 cm. Normal sonographic appearance. US/US pelvic and transvaginal IMPRESSION: 1. There are 2 fundal uterine fibroid tumors as discussed. 2. IUD is in place in good position. No endometrial thickening. 3. Normal ovaries bilaterally. No free fluid. Electronically signed by: Mauricio Veliz MD 11/04/2024 02:23 PM EDT
--- OUTSIDE RECORDS SUMMARY | 2024-11-04 13:54 | XMS_ITS | Encounter Summary ---
Author Organization [facility] Address [address] [place] [address] Care Team Providers Care Family Preservation Officer Name Role Phone Petra Wiley Primary Care Provider [phone] Reason for Referral * Surgical (Routine) - Pending Review Specialty Diagnoses / Procedures Referred By Mehreen linares Referred To Contact General Surgery Diagnoses Subcutaneous mass of right upper extremity Subcutaneous mass of abdominal wall [facility] [address] [place] [address] [facility] [address] [place] [address] Phone: tel: fax: Referral ID Status Reason Start Date Expiration Date Visits Requested Visits Authorized [id number] Pending Review Specialty Services Required 06/26/2024 12/26/2025 6 6 Encounter Details Date Type Department Care Team (Latest Contact Info) Description 06/26/2024 Transcribe Orders [facility]erral [facility] [address] [place] [address] Petra Wiley 230 [place] [address] Subcutaneous mass of right upper extremity (Primary [...] Care Team (Late st Contact Info) Description 02/09/2025 10:15 AM EDT Office Visit [facility] D[facility]atology Clinic 4th Floor [address] [facility], [place] [address] Cell Biologist: Breann Tang MD [address] [place] [address] Scheduled Referrals Name Type Priority Associated Diagnoses Order Schedule Ambulatory referral to General Surgery Outpatient Referral Routine Subcutaneous mass of right upper extremity Subcutaneous mass of abdominal wall Expected: 06/26/2024, Expires: 12/24/2024 documented as of this encounter Visit Diagnoses Diagnosis Subcutaneous mass of right upper extremity- Primary Subcutaneous mass of abdominal wall documented in this encounter Care Teams Family Preservation Officer Relationship Specialty Start Date End Date Petra Wiley [address] [place] [address] PCP - General Family Medicine 03/19/24 documented as of this encounter
--- OUTSIDE RECORDS SUMMARY | 2024-11-04 13:54 | XMS_ITS | Encounter Summary ---
Author Organization [employer] Address 75 [facility] 7t [place] [address] Care Team Providers Care Staff Physical Therapy Assistant Name Role Phone Jennie Murray MD Primary Care Provider [phone] Petra Wiley Primary Care Provider [phone] Willard Waters Unavailable [phone] September Unavailable Juan Sandra MD Unavailable [phone] Brigid Guy NP Unavailable Vicente Mooney MD Unavailable Beth Rai MD Unavailable Michell Espinoza Unavailable Encounter Details Date Type Department Care Team (Late st Contact Info) Description 07/26/2022 Orders Only [facility] MEDICINE [address] [place] [address] Nelson Medrano MD [address] [place] [id number] Chronic idiopathic constipation (Primary Dx) Social History [...] Care Team (Late st Contact Info) Description 11/06/2024 3:30 PM EDT Clinical Support [facility] DIABETES/NUTRITION [address] [place] [address] Tamanna Mcintyre, RD [address] [place] [address] 11/25/2024 9:15 AM EDT Office Visit [facility] MEDICINE [address] [place] [address] Petra Wiley FNP 505 [place] [address] 11/27/2024 3:30 PM EDT Office Visit [facility] ADULT DENTAL [address] [place] [address] Venkat Barreto DDS [address] [place] [address] 01/18/2025 3:00 PM EDT Office Visit [facility] ADULT DENTAL [address] [place] [address] Sanaz Nelson documented as of this encounter Visit Diagnoses Diagnosis Chronic idiopathic constipation- Primary Unspecified constipation documented in this encounter Additional Health Concerns Assessment Noted Time PHQ-9 Depression Total Score: 0 07/04/19 3:01 PM EST documented as of this encounter Care Teams Staff Physical Therapy Assistant Relationship Specialty Start Date End Date Jennie Murray MD [address] [place] [address] PCP - General Family Medicine 06/23/13 03/16/24 Petra Wiley FNP [address] [place] [address] PCP - General Family Medicine 03/17/24 Willard Waters [address] Rheumatology 05/17/24 Sumaya Kessler 11 [facility] 3rd [place] [address] Gastroenterology 05/17/24 Juan Sandra MD [address] [place] [address] Hematology and Oncology 05/17/24 Brigid Guy NP [address] [facility] [address] [place] [address] Urology 05/17/24 Vicente Mooney MD [address] [place] [address] [address] [place] [address] Obstetrics and Gynecology 05/17/24 Beth Rai MD [address] [place] [address] [place] [address] Neurology 05/17/24 Michell Espinoza 11 [facility] 3rd [place] [address] Cardiology 05/17/24 Shelia Zheng Butter GraderCourt Registry Officer 09/26/23 documented as of this encounter
--- OUTSIDE RECORDS SUMMARY | 2024-11-04 13:54 | XMS_ITS | Encounter Summary ---
Author Organization [employer] Address [address] [facility] 7t [place] [address] Care Team Providers Care Business Project Analyst Name Role Phone Jennie Murray MD Primary Care Provider Petra Wiley Primary Care Provider Willard Waters Unavailable [phone] KesslerSeptember Unavailable Juan Sandra MD Unavailable [phone] Brigid Guy NP Unavailable Vicente Mooney MD Unavailable Beth Rai MD Unavailable [phone] Michell Espinoza Unavailable Encounter Details Date Type Department Care Team (Latest Contact Info) Description 09/12/2020 Abstract [facility] CONVERSIONS Dental, Provider, DDS Social History [...] Care Team ( st Contact Info) Description 11/06/2024 3:30 PM EDT Clinical Support [facility] DIABETES/NUTRITION [address] [place] [address] [place], [place] [address] 11/25/2024 9:15 AM EDT Office Visit [facility] MEDICINE 230 [place] [address] Petra Wiley FNP [address] [place] [address] 11/27/2024 3:30 PM EDT Office Visit [facility] ADULT DENTAL 230 [place] [address] Venkat Barreto DDS 230 [place] [address] 01/18/2025 3:00 PM EDT Office Visit [facility] ADULT DENTAL [address] [place] [address] Sanaz Nelson documented as of this encounter Visit Diagnoses Not on filedocumented in this encounter Care Teams Business Project Analyst Relationship Specialty Start Date End Date Jennie Murray MD 230 [place] [address] PCP - General Family Medicine 06/23/13 03/16/24 Petra Wiley FNP 230 [place] [address] PCP - General Family Medicine 03/17/24 Willard Waters [address] [place] [address] Rheumatology 05/17/24September [address] 3rd [place] [address] Gastroenterology 05/17/24 Juan Sandra MD [address] [place] [address] Hematology and Oncology 05/17/24 Brigid Guy NP [address] [place] [address] Urology 05/17/24 Vicente Mooney MD [address] [place] [address] [address] [facility] [place] [address] Obstetrics and Gynecology 05/17/24 Beth Rai MD [address] [place] [address] [place] [address] Neurology 05/17/24 Michell Espinoza [address] [place] [address] Drive 3rd [place] [address] Cardiology 05/17/24 Shelia Zheng Cattle DriverTax Agent 09/26/23 documented as of this encounter
--- OUTSIDE RECORDS SUMMARY | 2024-11-04 13:54 | XMS_ITS | Encounter Summary ---
Author Organization [employer] Address 75 [facility] 7t [place] [address] Care Team Providers Care Drill Bit Sharpener Name Role Phone Jennie Murray MD Primary Care Provider [phone] Petra Wiley Primary Care Provider Willard Waters Unavailable [phone] Victoria Sumaya Unavailable Juan Sandra MD Unavailable [phone] Brigid Guy NP Unavailable Vicente Mooney MD Unavailable Beth Rai MD Unavailable Michell Espinoza Unavailable Reason for Visit * Reason Onset Date Comments medication 09/19/2022 Encounter Details Date Type Department Care Team (Late st Contact Info) Description 09/19/2022 Telephone [facility] ADULT DENTAL [address] [place], [place] [phone] Venkat Barreto DDS [address] [place], [place] [phone] medication Social History Tobacco Use Types Packs/Day [...] EDT Script was sent for Augementin to [facility] in [place]. Patient went in to picker tender script and they stated there was nothing there. Contacted [facility] and they stated that nationwide there was a shut down on their system for about 3 hours so it doesn't look like they received it. Can it be resent for patient? documented in this encounter Plan of Treatment Upcoming Encounters Date Type Department Care Team (Late st Contact Info) Description 11/06/2024 3:30 PM EDT Clinical Support [facility] DIABETES/NUTRITION [address] [place] [address] Tamanna Mcintyre, RD [address] [place] [address] 11/25/2024 9:15 AM EDT Office Visit [facility] MEDICINE [address] [place] [address] Petra Wiley, AEROSOL LINE OPERATOR [address] [place] [address] 11/27/2024 3:30 PM EDT Office Visit [facility] ADULT DENTAL [address] [place] [address] Venkat Barreto DDS [address] [place] [address] 01/18/2025 3:00 PM EDT Office Visit [facility] CHC ADULT DENTAL 505 [place] [address] Sanaz Nelson documented as of this encounter Visit Diagnoses Not on filedocumented in this encounter Additional Health Concerns Assessment Noted Time PHQ-9 Depression Total Score: 0 07/04/19 23 3:01 PM EST documented as of this encounter Care Teams Drill Bit Sharpener Relationship Specialty Start Date End Date Jennie Murray MD 230 [place] [address] PCP - General Family Medicine 06/23/13 03/16/24 Petra Wiley FNP [address] [place] [address] PCP - General Family Medicine 03/17/24 Willard Waters [address] [place] [address] Rheumatology 05/17/24 Victoria Sumaya 11 [facility] 3rd [place] [address] Gastroenterology 05/17/24 Juan Sandra MD [address] [place] [address] Hematology and Oncology 05/17/24 Brigid Guy NP [address] [facility] [address] [place] [address] Urology 05/17/24 Vicente Mooney MD [address] [place] [address] [address] [place] [address] Obstetrics and Gynecology 05/17/24 Beth Rai MD [address] [place] [address] [address] [place] [address] Neurology 05/17/24 Michell Espinoza 11 [facility] 3rd [place] [address] Cardiology 05/17/24 Shelia Zheng Rock SingerPre Owned Sales Manager 09/26/23 documented as of this encounter
--- OUTSIDE RECORDS SUMMARY | 2024-11-04 13:54 | XMS_ITS | Encounter Summary ---
Author Organization [employer] Address [address] [facility] 7t [place] [address] Care Team Providers Care Window Glass Cutter Off Name Role Phone Jennie Murray MD Primary Care Provider Petra Wiley Primary Care Provider Willard Waters Unavailable [phone] Victoria Sumaya Unavailable Juan Sandra MD Unavailable [phone] Brigid Guy NP Unavailable Vicente Mooney MD Unavailable Beth Rai MD Unavailable [phone] Michell Espinoza Unavailable Encounter Details Date Type Department Care Team (Late st Contact Info) Description 05/25/2022 Abstract [facility] CHC ADULT DENTAL [address] [place], [place] [phone] Dental, Provider, DDS Social History Tobacco Use [...] Description 11/06/2024 3:30 PM EDT Clinical Support [facility] DIABETES/NUTRITION [address] [place], [place] [phone] Tamanna Mcin[address] [place] [address] 11/25/2024 9:15 AM EDT Office Visit [facility] MEDICINE [address] [place] [address] Petra Wiley, RAKE OPERATOR [address] [place] [address] 11/27/2024 3:30 PM EDT Office Visit [facility] ADULT DENTAL [address] [place] [address] Venkat Barreto, DDS [address] [place] [address] 01/18/2025 3:00 PM EDT Office Visit [facility] ADULT DENTAL [address] [place] [address] Sanaz Nelson documented as of this encounter [...] on filedocumented in this encounter Care Teams Window Glass Cutter Off Relationship Specialty Start Date End Date Jennie Murray MD [address] [place] [address] PCP - General Family Medicine 06/23/13 03/16/24 Petra Wiley FNP [address] [place] [address] PCP - General Family Medicine 03/17/24 Willard Waters [address] [place] [address] Rheumatology 05/17/24 Victoria Sumaya [address] [address] Gastroenterology 05/17/24 Juan Sandra MD [address] [place] [address] Hematology and Oncology 05/17/24 Brigid Guy NP 10 [facility] [address] [place] [address] Urology 05/17/24 Vicente Mooney MD [address] [place] [address] [address] [place] [address] Obstetrics and Gynecology 05/17/24 Beth Rai MD [address] [place] [address] 140 [place] [address] Neurology 05/17/24 Michell Espinoza 11 [facility] 3rd [place] [address] Cardiology 05/17/24 Shelia Zheng Negative TurnerWhiskey Regauger 09/26/23 documented as of this encounter
--- OUTSIDE RECORDS SUMMARY | 2024-11-04 13:54 | XMS_ITS | Encounter Summary ---
Author Organization [employer] Address [address] [facility] 7t [place] [address] Care Team Providers Care Rubble Placer Name Role Phone Petra Wiley MILK PROCESSING WORKER Primary Care Provider [phone] Willard Waters Unavailable [phone] September Unavailable Juan Sandra MD Unavailable [phone] Brigid Guy NP Unavailable Vicente Mooney MD Unavailable Beth Rai MD Unavailable [phone] Michell Espinoza Unavailable Reason for Visit * Reason Onset Date Comments Chart Prep 11/03/2024 Encounter Details Date Type Department Care Team ([facility] st Contact Info) Description 11/03/2024 Telephone [facility] [address] [place], [place] [phone] Petra Wiley FNP [address] [place], [place] [phone] Chart Prep Social History Tobacco Use Types [...] Telephone Encounter - Shireen Briscoe [place] - 11/03/2024 2:23 PM EDT Chart Prep Labs: done Images: done Referrals: appointment pending Vaccines due: HPV Screenings: mammogram and LMP Overdue care gaps: Disability screen and PISQ documented in this encounter Plan of Treatment Upcoming Encounters Date Type Department Care Team (Late st Contact Info) Description 11/06/2024 3:30 PM EDT Clinical Support [facility] DIABETES/NUTRITION 230 [place], [place] [phone] Tamanna Mcintyre [address] [place] [address] 11/25/2024 9:15 AM EDT Office Visit [facility] MEDICINE 230 [place] [address] Petra Wiley FNP [address] [place] [address] 11/27/2024 3:30 PM EDT Office Visit [facility] ADULT DENTAL [address] [place] [address] Venkat Barreto DDS [address] [place] [address] 01/18/2025 3:00 PM EDT Office Visit [facility] ADULT DENTAL [address] [place] [address] Sanaz Nelson documented as of this encounter Visit Diagnoses Not on filedocumented in this encounter Additional Health Concerns Assessment Noted Time PHQ-9 Depression Total Score: 13 03/16/ 024 3:11 PM EDT documented as of this encounter Care Teams Rubble Placer Relationship Specialty Start Date End Date Petra Wiley FNP [address] [place] [address] PCP - General Family Medicine 03/17/24 Willard Waters [address] [place] [address] Rheumatology 05/17/24September [address] 3rd [place] [address] Gastroenterology 05/17/24 Juan Sandra MD [address] [place] [address] Hematology and Oncology 05/17/24 Brigid Guy NP [address] [place] [address] Urology 05/17/24 Vicente Mooney MD [address] [place] [address] [address] [place] [address] Obstetrics and Gynecology 05/17/24 Beth Rai MD [address] [place] [address] [place] [address] Neurology 05/17/24 Michell Espinoza [address] 3rd [place] [address] Cardiology 05/17/24 Shelia Zheng Kiln FeederSlabber 09/26/23 documented as of this encounter
--- OUTSIDE RECORDS SUMMARY | 2024-11-04 13:54 | XMS_ITS | Encounter Summary ---
Author Organization [employer] Address [address] [facility] 7t [place] [address] Care Team Providers Care Sausage Grinder Name Role Phone Petra Wiley LENS BLANK GAUGER Primary Care Provider Willard Waters Unavailable [phone] September Unavailable Juan Sandra MD Unavailable [phone] Brigid Guy NP Unavailable Vicente Mooney MD Unavailable Beth Rai MD Unavailable [phone] Michell Espinoza Unavailable Encounter Details Date Type Department Care Team (Late st Contact Info) Description 11/04/2024 11:15 AM EDT Office Visit [facility] MEDICINE 230 [place] [address] Petra Wiley FNP 505 [place], [place] [phone] Anemia, unspecified type (Primary Dx); Asthma, unspecified asthma severity, unspecified whether complicated, unspecified whether persistent; Mild persistent asthma without complication Social History Tobacco Use Types Packs/Day Years [...] Sign Reading Time Taken Comments Blood Pressure 112/71 11/04/2024 11:40 AM EDT Pulse 86 11/04/2024 11:40 AM EDT Temperature 36.5 ??C (97.7 ??F) 11/04/2024 11:40 AM E DT Respiratory Rate 22 11/04/2024 11:40 AM EDT Oxygen Saturation 99% 11/04/2024 11:40 AM EDT Inhaled Oxygen Concentration - - Weight 70 kg (154 lb 4 oz) 11/04/2024 11:40 AM E DT Height 149.9 cm (4' 11 ) 11/04/2024 11:40 AM EDT Body Mass Index 31.15 11/04/2024 11:40 AM EDT documented in this encounter Plan of Treatment Upcoming Encounters Date Type Department Care Team (Late st Contact Info) Description 11/06/2024 3:30 PM EDT Clinical Support [facility] DIABETES/NUTRITION [address] [place] [address] Tamanna Mcintyre, RD [address] [place] [address] 11/25/2024 9:15 AM EDT Office Visit [facility] MEDICINE [address] [place] [address] Petra Wiley, LENS BLANK GAUGER [address] [place] [address] 11/27/2024 3:30 PM EDT Office Visit [facility] ADULT DENTAL [address] [place] [address] Venkat Barreto, DDS [address] [place] [address] 01/18/2025 3:00 PM EDT Office Visit [facility] CHC ADULT DENTAL 505 [place] [address] Sanaz Nelson Scheduled Orders Name Type Priority Associated Diagnoses Orde r Schedule POCT Hemoglobin Point of Care Testing Routine Anemia, unspecified type Ordered: 11/04/2024 CBC auto differential Lab Routine Anemia, unspecified type Expected: 11/04/2024 (Approximate), Expires: 11/04/2025 Pathologist Review Of Peripheral Smear Lab Routine Anemia, unspecified type Expected: 11/04/2024 (Approximate), Expires: 11/04/2025 Iron And Total Iron Binding Capacity Lab Routine Anemia, unspecified type Expected: 11/04/2024, Expires: 11/04/2025 Ferritin Lab Routine Anemia, unspecified type Expected: 11/04/2024, Expires: 11/04/2025 Lactate Dehydrogenase (LD) Lab Routine Anemia, unspecified type Expected: 11/04/2024 (Approximate), Expires: 11/04/2025 documented as of this encounter Visit Diagnoses Diagnosis Anemia, unspecified type- Primary Asthma, unspecified asthma severity, unspecified whether complicated, unspecified whether persistent Mild persistent asthma without complication documented in this encounter Additional Health Concerns Assessment Noted Time PHQ-9 Depression Total Score: 13 09/30/2 024 3:11 PM EDT documented as of this encounter Care Teams Sausage Grinder Relationship Specialty Start Date End Date Petra Wiley FNP 230 [place] [address] PCP - General Family Medicine 03/17/24 Willard Waters [address] Rheumatology 05/17/24September 11 [facility] 3rd [place] [address] Gastroenterology 05/17/24 Juan Sandra MD 575 [place] [address] Hematology and Oncology 05/17/24 Brigid Guy NP [address] [facility] [address] [place] [address] Urology 05/17/24 Vicente Mooney MD [address] [place] [address] [address] [place] [address] Obstetrics and Gynecology 05/17/24 Beth Rai MD [address] [place] [address] 140 [place] [address] Neurology 05/17/24 Michell Espinoza 11 [facility] 3rd [place] [address] Cardiology 05/17/24 Shelia Zheng Model Making SupervisorStockroom Associate 09/26/23 documented as of this encounter
--- OUTSIDE RECORDS SUMMARY | 2024-11-04 13:54 | XMS_ITS | Encounter Summary ---
Author Organization [employer] Address 75 [facility] 7t [place] [address] Care Team Providers Care Roof Tiler Name Role Phone Jennie Murray MD Primary Care Provider Petra Wiley Primary Care Provider [phone] Willard Waters Unavailable [phone] KesslerSeptember Unavailable Juan Sandra MD Unavailable [phone] Brigid Guy NP Unavailable Vicente Mooney MD Unavailable Beth Rai MD Unavailable Michell Espinoza Unavailable Encounter Details Date Type Department Care Team (Late st Contact Info) Description 05/18/2022 Orders Only [facility] MEDICINE 230 [place] [address] Jennie Murray MD 505 [place], [place] [phone] Acute foot pain, unspecified laterality (Primary Dx) [...] Description 11/06/2024 3:30 PM EDT Clinical Support [facility] DIABETES/NUTRITION 230 [place] [address] Tamanna Mcintyre, ANGELINA 230 [place] [address] 11/25/2024 9:15 AM EDT Office Visit [facility] MEDICINE 230 [place] [address] Petra Wiley FNP 505 [place] [address] 11/27/2024 3:30 PM EDT Office Visit [facility] ADULT DENTAL 230 [place] [address] Venkat Barreto DDS 230 [place] [address] 01/18/2025 3:00 PM EDT Office Visit [facility] CHC ADULT DENTAL 505 [place] [address] Sanaz Nelson documented as of this encounter Visit Diagnoses Diagnosis Acute foot pain, unspecified laterality- Primary documented in this encounter Care Teams Roof Tiler Relationship Specialty Start Date End Date Jennie Murray MD [address] [place] [address] PCP - General Family Medicine 06/23/13 03/16/24 Petra Wiley FNP [address] [place] [address] PCP - General Family Medicine 03/17/24 Willard Waters [address] [place] [address] Rheumatology 05/17/24 Sumaya Kessler [address] 3rd [place] [address] Gastroenterology 05/17/24 Juan Sandra MD 575 [place] [address] Hematology and Oncology 05/17/24 Brigid Guy NP [address] [place] [address] Urology 05/17/24 Vicente Mooney MD [address] [place] [address] Obstetrics and Gynecology 05/17/24 Beth Rai MD [address] [place] [address] [place] [address] Neurology 05/17/24 Michell Espinoza 11 [facility] 3rd [place] [address] Cardiology 05/17/[address] [facility] AnalystFruit Grader Operator 09/26/23 documented as of this encounter
--- OUTSIDE RECORDS SUMMARY | 2024-11-04 13:54 | XMS_ITS | Referral Summary ---
Author Organization [facility] Address [address] [place] [address] Care Team Providers Care Impregnating Tank Operator Name Role Phone Petra Wiley Primary Care Provider [phone] Encounters Date Type Department Care Team Description 11/02/2024 2:20 PM EDT Office Visit [facility] [address] [place] [address] Home Appliance Installer: Newton Rangel DO Menorrhagia with regular cycle (Primary Dx); Iron deficiency; Subluxation of knee, unspecified laterality, initial encounter; Right hand pain from Last 3 Months Allergies Active Allergy [...] Sign Reading Time Taken Comments Blood Pressure 109/75 11/02/2024 2:02 PM EDT Pulse 77 11/02/2024 2:02 PM EDT Temperature 36.6 ??C (97.9 ??F) 07/22/2024 11:[address] Respiratory Rate - - Oxygen Saturation 100% 11/02/2024 2:02 PM EDT Inhaled Oxygen Concentration - - Weight 73 kg (161 lb) 11/02/2024 2:02 PM EDT Height 149.9 cm (4' 11 ) 11/02/2024 2:02 PM EDT Body Mass Index 32.52 11/02/2024 2:02 PM EDT Plan of Treatment Upcoming Encounters Date Type Department Care Team (Late st Contact Info) Description 02/09/2025 10:15 AM EDT Office Visit [facility] Dermatology Clinic 4th Floor [address] [facility], [place] [phone] Home Appliance Installer: Breann Tang MD [address] [place] [address] Insurance [facility] Care Teams Impregnating Tank Operator Relationship Specialty Start Date End Date Petra Wiley [address] [place] [address] PCP - General Family Medicine 03/19/24
--- OUTSIDE RECORDS SUMMARY | 2024-11-04 13:54 | XMS_ITS | Clinical Summary ---
Author Organization [facility] Address [address] [place] [address] Care Team Providers Care Senior Accounting Analyst Name Role Phone Petra Wiley Primary Care Provider [phone] Allergies Active Allergy Reactions Criticality Noted Date [...] Description 11/02/2024 2:20 PM EDT Office Visit [facility] [address] [place] [address] Forensics Team Director: Newton Rangel, DO Menorrhagia with regular cycle (Primary Dx); Iron deficiency; Subluxation of knee, unspecified laterality, initial encounter; Right hand pain from Last 3 Months Social History Tobacco [...] Description 02/09/2025 10:15 AM EDT Office Visit [facility] Dermatology Clinic 4th Floor 281 [facility], [place] [address] Forensics Team Director: Breann Tang MD [address] [place] [address] Health Maintenance Due Date Last Done Comments [...] At-Risk Patients (6-50 Years) Completed 05/13/2024 Insurance [email or web address] Care Teams Senior Accounting Analyst Relationship Specialty Start Date End Date Petra Wiley [address] [place] [address] PCP - General Family Medicine 03/19/24
--- OUTSIDE RECORDS SUMMARY | 2024-11-04 13:54 | XMS_ITS | Encounter Summary ---
Author Organization [employer] Address [address] [facility] [address] 7t [place] [address] Care Team Providers Care Tobacco Shaker Name Role Phone Petra Wiley MOTHER SUPERIOR Primary Care Provider Willard Waters Unavailable [phone] September Unavailable Juan Sandra MD Unavailable [phone] Brigid Guy NP Unavailable Vicente Mooney MD Unavailable Beth Rai MD Unavailable Michell Espinoza Unavailable Encounter Details Date Type Department Care Team (Late st Contact Info) Description 05/20/2024 Orders Only [facility] CHC MED & PEDS [address] [place], [place] [phone] Provider, MD Addie Social History Tobacco Use [...] Description 11/06/2024 3:30 PM EDT Clinical Support [facility] DIABETES/NUTRITION [address] [place] [address] Tamanna Mcintyre, ANGELINA [address] [place] [address] 11/25/2024 9:15 AM EDT Office Visit [facility] MEDICINE [address] [place] [address] Petra Wiley, MOTHER SUPERIOR 505 [place] [address] 11/27/2024 3:30 PM EDT Office Visit [facility] ADULT DENTAL [address] [place] [address] Venkat Barreto DDS [address] [place] [address] 01/18/2025 3:00 PM EDT Office Visit [facility] ADULT DENTAL [address] [place] [address] Sanaz Nelson documented as of this encounter [...] documented as of this encounter Care Teams Tobacco Shaker Relationship Specialty Start Date End Date Petra Wiley FNP [address] [place] [address] PCP - General Family Medicine 03/17/24 Willard Waters [address] [place] [address] [address] [place], [place] Rheumatology 05/17/24September 11 [facility] 3rd [place] [address] Gastroenterology 05/17/24 Juan Sandra MD [address] [place] [address] Hematology and Oncology 05/17/24 Brigid Guy NP [address] [facility] [address] [place] [address] Urology 05/17/24 Vicente Mooney MD [address] [place] [address] [address] [place] [address] Obstetrics and Gynecology 05/17/24 Beth Rai MD [address] [place] [address] 140 [place] [address] Neurology 05/17/24 Michell Espinoza [address] [facility] [address] 3rd Floor [place], [place] [address] Cardiology 05/17/24 Shelia Zheng Stunt DriverFloat Builder 09/26/23 documented as of this encounter
--- OUTSIDE RECORDS SUMMARY | 2024-11-04 13:54 | XMS_ITS | Clinical Summary ---
Author Organization [employer] Address [address] [place] [address] Care Team Providers Care Project Associate Name Role Phone Petra Wiley INSOLE CEMENTER Primary Care Provider Willard Waters Unavailable [phone] September Unavailable Juan Sandra MD Unavailable [phone] Brigid Guy NP Unavailable Vicente Mooney [...] MINDA VECES AL D A Active Creon [id number] units capsule delayed-release particles capsule TOME ADRY [...] FOR 30 DAYS FOR HEART PALPITATION Active Blood Pressure kit 1 each 2 times daily. 1 kit 024 2024 Active butalbital-aceta minophen-caffein e 50-325-40 MG tablet TOME ADRY TABLETA CADA OCHO HORAS CUANDO SEA NECESARIO FOR 30 DAYS Active Banophen 25 MG capsule PLEASE SEE ATTACHED FOR DETAILED DIRECTIONS Active Dexilant [address] capsuleIndicatio ns:Gastroparesis [...] OR ALLERGIES. 30 mL 3 025 Active pregabalin (Lyrica) 75 MG capsuleIndicatio [...] for 1 week. 3.5 g 025 Active cholecalciferol (Vitamin D3) 25 MCG (1000 UT) tabletIndication s:Vitamin D insufficiency TAKE 1 TABLET (25 MCG) BY MOUTH ONCE PER DAY. 90 tablet 3 025 Active sucralfate (Carafate) 1 g tabletIndication s:Gastroesophage al reflux disease without esophagitis Take 1 tablet (1 g) by mouth before breakfast, before lunch, before evening meal, and at bedtime. 120 tablet 025 2025 Active chlorhexidine (Peridex) 0.12 % solution Use 15ml to rinse your mouth twice daily. Spit after rinsing; do not swallow. 473 mL 025 Active albuterol 108 (90 Base) MCG/ACT inhalerIndicatio ns:Mild persistent asthma without complication Inhale 2 puffs Every 4-6 hours as needed for wheezing or shortness of breath. 18 g 11 025 Active fluticasone furoate (Arnuity Ellipta) 100 MCG/ACT inhalerIndicatio ns:Asthma, unspecified asthma severity, unspecified whether complicated, unspecified whether persistent Inhale 1 puff Once per day. Rinse mouth with water after use to reduce aftertaste and incidence of candidiasis. Do not swallow. 1 each Active meclizine (Antivert) 25 MG tablet Take 0.5-1 tablets (12.5-25 mg) by mouth if needed at bedtime for dizziness. 30 tablet 1 025 2025 Active tiZANidine (Zanaflex) 2 MG tablet Take 1-2 tablets (2-4 mg) by mouth every 12 (twelve) hours if needed for muscle spasms. 30 tablet 2 025 2025 Active nabumetone (Relafen) 750 MG tablet Take 1 tablet (750 mg) by mouth if needed in the morning and at bedtime (pain). 60 tablet 2 Active cyclobenzaprine (Flexeril) 5 MG tablet Take 1 tablet (5 mg) by mouth 3 times daily for 10 days. 30 tablet 2 024 2024 Discontinued(T herapy completed) methocarbamol (Robaxin) 750 MG tabletIndication s:Fibromyalgia,N jorge pain Take 1 tablet (750 mg) by mouth 4 times daily for 10 days. 40 tablet 024 2024 Discontinued(T herapy completed) albuterol 108 (90 Base) MCG/ACT inhalerIndicatio ns:Mild persistent asthma without complication Inhale 2 puffs Every 4-6 hours as needed for wheezing or shortness of breath. 18 g 024 2024 Discontinued(R eorder (will not trigger notification to Pharmacy)) fluticasone furoate (Arnuity Ellipta) 100 MCG/ACT inhalerIndicatio ns:Asthma, unspecified asthma severity, unspecified whether complicated, unspecified whether persistent Inhale 1 puff Once per day. Rinse mouth with water after use to reduce aftertaste and incidence of candidiasis. Do not swallow. 1 each 025 2024 Discontinued(R eorder (will not trigger notification to Pharmacy)) nabumetone (Relafen) 750 MG tablet Take 1 tablet (750 mg) by mouth if needed in the morning and at bedtime (pain). PLEASE SEE ATTACHED FOR DETAILED DIRECTIONS 60 tablet 2 025 2024 Discontinued(R eorder (will not trigger notification to Pharmacy)) fluticasone furoate (Arnuity Ellipta) 100 MCG/ACT inhalerIndicatio ns:Asthma, unspecified asthma severity, unspecified whether complicated, unspecified whether persistent Inhale 1 puff Once per day. Rinse mouth with water after use to reduce aftertaste and incidence of candidiasis. Do not swallow. 1 each 11 2 025 2024 Discontinued(R eorder (will not trigger notification to Pharmacy)) Active Problems Problem Noted Date Diagnosed Date Erythromelalgia 08/18/2024 Polyarthralgia 08/18/2024 Nephrolithiasis 07/29/2024 Overview (07/29/2024): 04/15/24: US Renal Bl ordered by Brigid LUCERO. Identified bilateral nonobstructing kidney stones. 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 Structural Iron Erector referral offered. Recommended to decrease soda and [...] bruising easily 03/17/2024 Overview (03/17/2024): Followed by [facility] Heme/Onc - Dr. Sandra Per consult Jan [...] Bipolar Disorder , and Trauma services including OP Psychotherapy psychopharmacology who presents [...] HCT 36.5 (L) 03/18/2024 Following with [facility] Heme/Onc - Dr. Turner Assessment & Plan [...] - Has consulted with Surgery team in [facility] for consideration of excision. Per [...] - Has consulted with Surgery team in [facility] for consideration of excision. Per their consult Mar 2024, identified area has normal lobular fat, no discrete lipoma or nodules. Plan: conservative measures Abnormal uterine bleeding 12/27/2023 Overview (07/29/2024): Following with [facility] HAND POTTER - Dr. Mooney EMB performed 04/14/24. Path: [...] Overview (05/17/2024): Lab Results Component Value Date [id number] 19.9 (L) 03/18/2024 [id number] 19 (A) 05/08/2023 - Cont Vit D [...] Overview (05/17/2024): Pap NIL/HPV Neg 11/12/2019 Dental: [facility] Dental Last PE: 06/03/23 Hep B Immune: Mar 2024 Gastroesophageal reflux disease without esophagi tis 06/03/2023 Overview (06/03/2023): ?? Followed by [facility] YASSINE Kessler APRN ?? Continues famotidine and Dexliant through GI Irritable bowel syndrome with constipation 06/03 Overview (03/17/2024): Followed up [facility] YASSINE Kessler APRN Continues Bentyl TID Continues Bisacodyl 10mg nightly Dysphagia, oropharyngeal phase 06/03/2023 Overview (06/03/2023): ?? Followed by [facility] YASSINE Kessler APRN Gastroparesis 06/03/2023 Overview (03/17/2024): Followed by [facility] GI Continues with the following medication regimen for multiple GI symptoms and conditions: Creon, famotidine, psyllium, dicyclomine, simethicone, and Dexliant Previous medications: carafate NURIA positive 06/03/2023 Overview (07/29/2024): Previous followed by [facility] Rheum - Dr. Waters May 2024: Established with [facility] Rheum - Dr. Street NURIA positive 2020: 1:160, anti dna, nicholas, ESR, CRP all wnl Disorder of sesamoid bone of foot 06/03/2023 Overview (06/03/2023): -Left lateral sesamoid stress fx identified Jul 2022 at [facility] -Plan for immobilization in short walking boot and follow up 6 weeks Assessment & Plan (06/03/2023 10:28 PM EST): Plan to request latest records from [facility] and follow up with PCP to discuss eligibility handicap jacob. Fibromyalgia 08/02/2022 Overview (07/29/2024): -Previously: Lyrica 75mg nightly through [facility] Physiatry/Rheum -Lyrica rx from PCP as of [...] Encounters Date Type Department Care Team Description 11/04/2024 11:15 AM EDT Office Visit [facility] MEDICINE [address] [place] [address] Petra Wiley FNP Anemia, unspecified type (Primary Dx); Asthma, unspecified asthma severity, unspecified whether complicated, unspecified whether persistent; Mild persistent asthma without complication 11/04/2024 Travel 11/03/2024 Telephone [facility] CHC MED & PEDS [address], [place] [phone] Petra Wiley FNP Chart Prep 10/27/2024 2:30 PM EDT Office Visit [facility] ADULT DENTAL [address] [place] [address] Venkat Barreto DDS 10/16/2024 Telephone [facility] CHC MED & PEDS [address] [place] [address] Petra Wiley FNP Care Coordination 10/16/2024 Telephone [facility] MED & PEDS [address] [place] [address] Petra Wiley FNP reschedule derm appt 10/09/2024 Telephone [facility] MED & PEDS [address] [place] [address] Mundo Krueger MD Results 10/09/2024 Telephone [facility] MED & PEDS [address] [place] [address] Mundo Krueger MD Results 10/08/2024 3:30 PM EDT Office Visit [facility] MED & PEDS [address] [place] [address] Mundo Krueger MD Vaginal bleeding (Primary Dx); Gastroesophageal reflux disease without esophagitis 10/08/2024 Travel 10/08/2024 Telephone [facility] MED & PEDS [address] [place] [address] Kenisha Torres MD Results; Medication Question 10/06/2024 Telephone [facility] MED & PEDS [address] [place] [address] Sylvia Lemons MD 10/06/2024 Telephone [facility] MED & PEDS [address] [place] [address] Sylvia Lemons MD Results 10/06/2024 Orders Only GENERIC EXTERNAL DATA DEPARTMENT Provider, Generic External Data 09/27/2024 Refill [facility] WALK-IN CENTER [address] [place] [address] Petra Wiley FNP Vitamin D insufficiency 09/15/2024 Refill [facility] MED & PEDS [address] [place] [address] Jennie Murray MD 09/11/2024 2:00 PM EDT Office Visit [facility] ADULT DENTAL [address] [place] [address] Venkat Barreto DDS 09/08/2024 3:00 PM EDT Clinical Support [facility] DIABETES/NUTRITION [address] [place] [address] Class 2 obesity with body mass index (BMI) of 35.0 to 35.9 in adult, unspecified obesity type, unspecified whether serious comorbidity present; Class 1 obesity with body mass index (BMI) of 32.0 to 32.9 in adult, unspecified obesity type, unspecified whether serious comorbidity present 09/08/2024 Travel 09/07/2024 Orders Only [facility] CHC MED & PEDS [address] [place] [address] Petra Wiley FNP 09/07/2024 Travel 09/07/2024 Telephone [facility] MEDICINE [address] [place] [address] Petra Wiley FNP August recall 08/28/2024 Population Health Risk Score [facility] () Department [address] [place] [address] [phone] Provider, Population Health Generic 08/18/2024 1:30 PM EST Office Visit [facility] ADULT DENTAL [address] [place] [address] Mary LouDavidVenkat, DDS Erythromelalgia ([facility]) (Primary Dx); Polyarthralgia 08/17/2024 Orders Only GENERIC EXTERNAL DATA DEPARTMENT Provider, Generic External Data 08/17/2024 Telephone [facility] MEDICINE [address] [place] [address] Petra Wiley FNP Referral 08/14/2024 1:30 PM EST Clinical Support [facility] DIABETES/NUTRITION [address] [place] [address] BMI 35.0-35.9,adult (Primary Dx) 08/14/2024 Travel 08/11/2024 Orders Only GENERIC EXTERNAL DATA DEPARTMENT Provider, Generic External Data from Last 3 Months Immunizations Immunization Administration Dates Next Due HPV 9-Valent 02/27/2011 [...] Mass Index 31.15 11/04/2024 11:40 AM EDT Plan of Treatment Upcoming Encounters Date Type Department Care Team (Late st Contact Info) Description 11/06/2024 3:30 PM EDT Clinical Support [facility] DIABETES/NUTRITION [address] [place] [address] [place] [address] 11/25/2024 9:15 AM EDT Office Visit [facility] MEDICINE [address] [place] [address] Petra Wiley, INSOLE CEMENTER [address] [place] [address] 11/27/2024 3:30 PM EDT Office Visit [facility] ADULT DENTAL [address] [place] [address] Venkat Barreto DDS [address] [place] [address] 01/18/2025 3:00 PM EDT Office Visit [facility] CHC ADULT DENTAL [address] [place] [address] Sanaz Nelson Health Maintenance Due Date Last Done Comments Disability Screening 1985 Family Planning (PISQ) 2002 HPV Vaccines (2 [...] from 10/15/2015 (Other Medical Reasons) Tobacco Screening 11/04/2025 11/04/2024 Lipid Panel 03/18/2029 03/18/2024, 05/0 06/2023, 04/17/2021 [...] patient's age to complete this topic Meningococcal B Vaccine Aged Out No l onger eligible based on patient's age to complete [...] Name Priority Date/Time Associated Diagnosis Comments 14 CROWN PREP Routine 10/27/2024 2:30 PM EDT US RENAL BI Routine 10/26/2024 1:35 PM EDT TSH W/REFLEX TO FT4 Routine 10/08/2024 4 [...] Relevant to Health Maintenance Results * US RENAL BI (10/26/2024 1:35 PM EDT) Anatomical Region Laterality Modality Abdomen Ultrasound 10/26/2024 1:35 PM EDT Narrative 10/26/2024 2:05 PM EDT ? [facility] ?[address] ?[place] [address] ? Ultrasound Report ? Signed ? Patient: Lowell Anaya,Ambika ?MR#: [id number] ?? [id number] ? : 1985 ?Acct:[id number] ? Age/Sex: 39 / F ?ADM Date: 05/12/25 ? Loc: HO.US ? Attending Dr: Brigid BARRIGA ? Ordering Physician: Brigid Guy ?? Date of Service: 10/26/24 ?? Procedure(s): US renal BI ?? Accession Number(s): [id number] ? cc: Brigid Guy; Petra Wiley ? EXAMINATION: Ultrasound renal bilaterally. ? CLINICAL INFORMATION: ?? Calculus of kidney. ? COMPARISON: ?? 04/15/2024. ? TECHNIQUE: ?? Real-time ultrasound of the kidneys using grayscale and color Doppler ?? technique. ? FINDINGS: ? Right kidney: ? 10 x 5 x 5 cm. ?? Normal echotexture. ?? Normal renal cortical thickness. ?? Prominent Trae column. ?? No hydronephrosis. ?? There are at least 3 less than 3 mm hyperechoic lesion centered the ?? corticomedullary junction, most in the upper pole of the pelvicalyceal ?? system. ? Left kidney: ? 11 x 5 x 4 cm. ?? Normal echotexture. ?? Normal renal cortical thickness. ?? No hydronephrosis. ?? There are 2 hyperechoic less than 3 mm lesions in the upper pole. ? US/US renal BI ?? IMPRESSION: ? Nonobstructing nephrolithiasis, bilaterally. ? Electronically signed by: ??Raheem Gandhi MD ??10/26/2024 02:03 PM ?? EDT ? Dictated By: ?Raheem Starks MD ? Signed By: ?<Electronically signed by Raheem Abdi MD in OV> ? 10/26/24 1403 ? DD/ 1335 ? TD/TT: 10/26/24 1346 ? Hand Binder Cutter: ? Procedure Note Rain Chowdary - 10/26/[address] [address] Ultrasound Report Signed Patient: Ambika Mcdermott#: [id number] : 1985Acct:[id number] Age/Sex: 39 / FADM Date: 10/26/24 Loc: HO.US Attending Dr: Brigid BARRIGA Ordering Physician: Brigid Guy Date of Service: 10/26/24 Procedure(s): US renal BI Accession Number(s): [id number] cc: Brigid Guy INSOLE CEMENTER-BC; Petra Wiley INSOLE CEMENTER EXAMINATION: Ultrasound renal bilaterally. CLINICAL INFORMATION: Calculus of kidney. COMPARISON: 04/15/2024. TECHNIQUE: Real-time ultrasound of the kidneys using grayscale and color Doppler technique. FINDINGS: Right kidney: 10 x 5 x 5 cm. Normal echotexture. Normal renal cortical thickness. Prominent Trae column. No hydronephrosis. There are at least 3 less than 3 mm hyperechoic lesion centered the corticomedullary junction, most in the upper pole of the pelvicalyceal system. Left kidney: 11 x 5 x 4 cm. Normal echotexture. Normal renal cortical thickness. No hydronephrosis. There are 2 hyperechoic less than 3 mm lesions in the upper pole. US/US renal BI IMPRESSION: Nonobstructing nephrolithiasis, bilaterally. Electronically signed by: Raheem Gandhi MD 10/26/2024 02:03 PM EDT Dictated By: Raheem Starks MD Signed By: <Electronically signed by Raheem Abdi MDin OV> 10/26/24 1403 DD/ 1335 TD/TT: 10/26/24 1346 Hand Binder Cutter: [facility] External Provider IMG US PROCEDURES Final Result * TSH W/Reflex to FT4 (10/08/2024 4:07 PM EDT) Only the most recent of2 resultswithin the time period is included. TSH reflex Free T4 1.00 0.32 - 4.0 uIU/mL [facility] Blood Venous blood specimen / Unknown 10/08/2024 4:07 PM EDT 10/08/2024 5:43 PM EDT Mundo Krueger MD LAB BLOOD ORDERABLES Final Result [facility] [address] [place] [phone] * (ABNORMAL) CBC (10/08/2024 4:07 PM EDT) Only the most recent of2 resultswithin the time period is included. [facility] White Blood Count 9.7 4.8 - 10.8 X10*3/uL [facility] Red Blood Count 3.98(L) 4.20 - 5.50 X10*6/uL [facility] Hemoglobin 9.4(L) 12.0 - 16.0 g/dl [facility] Hematocrit 31.0(L) 37.0 - 47.0 % [facility] Mean Corpuscular Volume 77.9(L) 80.0 - 98.0 fL [facility] Mean Corpuscular Hemoglobin 23.6(L) 27.0 - 33.0 pg [facility] Mean Corpuscular HGB Conc 30.3(L) 31.0 - 35.0 g/dl [facility] Red Cell Distribution Width 15.7 11.0 - 16.0 % [facility] Platelet Count 371 160 - 400 X10*3/uL [facility] Mean Platelet Volume 12.2 9.4 - 12.3 fL [facility] NRBC Pct Auto 0.0 0.0 - 0.2 /100WBC [facility] NRBC Abs Auto 0.000 0.0 - 0.012 X10*3/uL [facility] Blood Venous blood specimen / Unknown 10/08/2024 4:07 PM EDT 10/08/2024 5:43 PM EDT us Mundo Krueger MD LAB BLOOD ORDERABLES Final Result [facility] [address] [place] [phone] [phone] * Chlamydia/N. Gonorrhoeae RNA, TMA, Urogenitial (10/06/2024 1:10 PM EDT) [facility] CT PCR NOT DETECTED Not Detect. [facility] Comment:A not detected test result [...] psychologicalconsequences. NG PCR NOT DETECTED Not Detect. [facility] Comment:A not detected test result [...] PM EDT 10/06/2024 3:37 PM EDT Narrative [facility] - 10/07/2024 10:11 AM EDT Vaginal us Generic External Data Provider LAB MICROBIOLOGY - GENERAL ORDERABLES Final Result [facility] [address] [place] [phone] * hCG, Total, Quantitative (10/06/2024 1:05 PM EDT) HCG Quantitative <2 mIU/mL [facility] Comment:Weeks post LMP Appr oximate hCG(Last Menstrual Period) Range (mIU/ml)3 - 4 weeks 9 - 1304 - 5 weeks 75 - 2,6005 - 6 weeks 850 - 20,8006 - 7 weeks 4000 - 100,2007 - 12 weeks 11,500 - 289,34349 - 16 weeks 18,300 - 137,39095 - 29 weeks (2nd trimester) 1,400 - 53,04646 - 41 weeks (3rd trimester) 940 - [...] LES Final Result Performing Organization Address City/State/[facility] Co de Phone Number [facility] [address] [place] [address] [phone] * BI US Breast Limited Right (09/01/2024 12:30 PM EDT) Anatomical Region Laterality Modality Breast Right Ultrasound 09/01/2024 12:3 0 PM EDT Narrative 09/01/2024 3:58 PM EDT ? [facility] ? [address] ?[place] [address] ? Ultrasound Report ? Signed ? Patient: Lowell Anaya,Ambika ?MR#: [id number] ?? [id number] ? : 1985 ?Acct:[id number] ? Age/Sex: 39 / F ?ADM Date: 03/18/25 ? Loc: HO.MAMMO ? Attending Dr: Petra Phalen INSOLE CEMENTER ? Ordering Physician: Petra Wiley INSOLE CEMENTER ?? Date of Service: 09/01/24 ?? Procedure(s): US breast RT limited ?? Accession Number(s): [id number] ? cc: Petra Wiley INSOLE CEMENTER ? EXAMINATION: ?? MM DIAGNOSTIC DIGITAL BREAST [...] DD/ 1230 ? TD/TT: 09/01/24 1332 ? Hand Binder Cutter: ? Procedure Note Donotuseinterpreter, Image - 09/01/2024 [facility] [address] [place] [address] Ultrasound Report Signed Patient: Ambika McdermottMR#: [id number] : 1985Acct:[id number] Age/Sex: 39 / FADM Date: 09/01/24 Loc: HO.MAMMO Attending Dr: Petra Wiley INSOLE CEMENTER Ordering Physician: Petra Wiley Date of Service: 09/01/24 Procedure(s): US breast RT limited Accession Number(s): [id number] cc: Petra Wiley EXAMINATION: MM DIAGNOSTIC DIGITAL [...] 09/01/24 1555 DD/ 1230 TD/TT: 09/01/24 1332 Hand Binder Cutter: us Petra Wiley INSOLE CEMENTER IMG US PROCEDURES Final Result * BI Mammogram Diagnostic Tomosynthesis Bilateral (09/01/2024 12:30 PM EDT) Anatomical Region Laterality Modality Breast Bilateral Mammography 09/01/2024 12:3 0 PM EDT Narrative 09/01/2024 3:58 PM EDT ? [facility] ? [address] ?[place] [address] ? Mammography Report ? Signed ? Patient: Lowell Anaya,Ambika ?MR#: [id number] ?? [id number] ? : 1985 ?Acct:[id number] ? Age/Sex: 39 / F ?ADM Date: 03/18/25 ? Loc: HO.MAMMO ? Attending Dr: Petra Wiley INSOLE CEMENTER ? Ordering Physician: Petra Wiley INSOLE CEMENTER ?Results: 3.6MPr ?? obably Benign Finding - Short 6 M F/U Suggested ? Date of Service: 09/01/24 ?Follow Up: 6 Month F/U ? Procedure(s): MM tomosynthesis diagnostic BI ?? Accession Number(s): [id number] ? cc: Petra Wiley INSOLE CEMENTER ? EXAMINATION: ?? MM DIAGNOSTIC DIGITAL BREAST [...] DD/ 1230 ? TD/TT: 09/01/24 1332 ? Hand Binder Cutter: ? Procedure Note Epi, Image - 09/01/2024 [facility] [address] [place] [address] Mammography Report Signed Patient: Ambika McdermottMR#: [id number] : 1985Acct:[id number] Age/Sex: 39 / FADM Date: 09/01/24 Loc: HO.MAMMO Attending Dr: Petra Wiley INSOLE CEMENTER Ordering Physician: Petra Wiley FNPResults: 3.6MPr obably Benign Finding - Short 6 M F/U Suggested Date of Service: 09/01/24Follow Up: 6 Month F/U Procedure(s): MM tomosynthesis diagnostic BI Accession Number(s): [id number] cc: Petra Wiely INSOLE CEMENTER EXAMINATION: MM DIAGNOSTIC DIGITAL BREAST TOMOSYNTHESIS, BILATERAL [...] 09/01/24 1555 DD/ 1230 TD/TT: 09/01/24 1332 Hand Binder Cutter: us Petra Wiley INSOLE CEMENTER IMG BI PROCEDURES Final Result * Urinalysis w/reflex microscopic (08/17/2024 2:00 PM EST) Color Urine Yellow [facility] Appearance Urine Clear [facility] PH 5.5 5.0 - 9.0 [facility] Glucose Urine UA Negative Negative mg/dL [facility] Urine Blood Negative Negative [facility] Specific [place] - Urine 1.010 1.005 - 1.025 [facility] Urine Protein Negative Neg-Trace mg/dL [facility] Urine Ketones Negative Negative mg/dL [facility] Nitrite Urine Negative Negative [facility] Leukocyte Esterase Urine Negative Negative [facility] 08/17/2024 2:00 PM EST 08/17/2024 2:25 PM EST [facility] - 08/17/2024 2:36 PM EST Urine, Clean Catch Generic External Data Provider LAB URINE ORDERAB LES Final Result Performing Organization Address City/[facility]/ZIP Co de Phone Number [facility] [address] [place] [phone] * Culture, Urine, Routine (08/11/2024 2:36 PM EST) Urine Urine specimen obtained by clean catch procedure / Unknown 08/11/2024 2:36 PM EST 08/11/2024 4:01 PM EST Comment:[facility] - 08/13/2024 9:47 AM EST Urine Culture Report Result Urine Culture 10,000 to 50,000 cfu/ml Urine Culture Mixed bacterial terry characteristic of Urine Culture urogenital contamination. Specimen Source: Urine clean catch Generic External Data Provider LAB MICROBIOLOGY - GENERAL ORDERABLES Final Result Performing Organization Address [facility]/ZIP Co de Phone Number [facility] [address] [place] [phone] * Hepatitis C Viral RNA, Quantitative, Real-Time PCR (03/18/2024 2:05 PM EDT) Hepatitis C Viral Load <15 NOT DETECTED NOT DETECTED IU/mL [facility] HCV Log PCR <1.18 NOT DETECTED NOT DETECTED Log IU/mL [facility] Comment:For additional infor felton, please refer tohttp://education.Estimize/faq/[email or web address](This link is being provided for informational/educational purposes only.)THIS TEST WAS PERFORMED AT:[employer] [employer] [place] [id number] DEL CID MD Blood 03/18/2024 2:05 PM EDT 03/18/2024 2:05 PM EDT us Petra Wiley INSOLE CEMENTER LAB BLOOD ORDERABLES Final Res ult Performing Organization Address [facility]/ZIP Co de Phone Number [facility] [address] [place] [address] [phone] * HIV-1/2 Antigen and Antibodies, Fourth Generation, with Reflexes (03/18/2024 2:05 PM EDT) HIV AB/AG Nonreactive Nonreactive [facility] Comment:HIV-1 p24 Ag and/or HIV-1/HIV-2 Ab not detected.A test result that is nonreactive does not exclude thepossibility of exposure to or infection with HIV-1 and/orHIV-2. Nonreactive results in this assay for individualswith prior exposure to HIV-1 and/or HIV-2 may be due toantigen and antibody levels that are below the limit ofdetection of this assay.[employer] HIV Ag/Ab Combo assay result andsupplemental assay results should be interpreted inconjunction with the patient's clinical presentation,history and other laboratory results. If the results areinconsistent with clinical evidence, additional testing issuggested to confirm the result. Blood Venous blood specimen / Unknown 03/18/2024 2:05 PM EDT 03/18/2024 2:05 PM EDT us Petra VALENCIAP LAB BLOOD ORDERABLES Final Res ult Performing Organization Address [facility]/ZIP Co de Phone Number [facility] [address] [place] [address] [phone] * (ABNORMAL) Lipid Panel, Standard (03/18/2024 2:05 PM EDT) Triglycerides 100 <150 mg/dL [facility] Comment:Desirable Triglyceri de: less than 150 mg/dLBorderline High Triglyceride 150-199 mg/dLHigh Triglyceride: 200-499 mg/dLVery High Triglyceride: greater than or equal to 5OO mg/dL Cholesterol 200(H) <200 mg/dL [facility] Comment:Desirable Cholestero l: less than 200 mg/dLBorderline High Cholesterol: 200-239 mg/dLHigh Cholesterol: greater than 239 mg/dL LDL Cholesterol Calculated 128(H) <100 mg/dL [facility] Comment:Desirable LDL: less than 100 mg/dLNear Optimal/Above Optimal LDL: 110- 129 mg/dLBorderline High LDL: 130-159 mg/dLHigh LDL: 160-189 mg/dLVery High LDL: greater than or equal to 190 mg/dL HDL Cholesterol 52 >40 mg/dL [facility] Comment:Desirable HDL: great er than 40 mg/dL Note: This HDL assay may give artificially low results in patients with liver disease. Blood Venous blood specimen / Unknown 03/18/2024 2:05 PM EDT 03/18/2024 2:05 PM EDT us Petra Wiley INSOLE CEMENTER LAB BLOOD ORDERABLES Final Res ult Performing Organization Address City/[facility]/ZIP Co de Phone Number [facility] [address] [place] [phone] [phone] * Pap Smear (11/12/2019 12:00 AM EDT) Swab us Historical Provider MD LAB CYTOLOGY ORDERABLES F inal Result Performing Organization Address City/[facility]/ZIP Co de Phone Number EXTERNAL LAB from Last 3 Months or Most Recently Relevant to Health Maintenance Insurance [facility] ST[facility] MEDICAID STAND ADULT * Guarantor: Ambika Mcdermott Account Type Relation to Patient Date of Phone Billing Address Personal/[place] [address] * Guarantor: Lowell AnayaAmbika vallejo Account Type Relation to Patient Date of Phone Billing Address Personal/[place] [address] * Guarantor: Ambika Mcdermott Account Type Relation to Patient Date of Phone Billing Address Personal/Family Self [address] [place] Care Teams Project Associate Relationship Specialty Start Date End Date Petra Wiley FNP [address] [place] [address] PCP - General Family Medicine 03/17/24 Willard Waters [address] [facility] [address] [place], [place] Rheumatology 05/17/24 Sumaya K[address]ler [address] 3rd [place] [address] Gastroenterology 05/17/24 Juan Sandra MD [address] [place] [address] Hematology and Oncology 05/17/24 Brigid Guy NP [address] [place] [address] Urology 05/17/24 Vicente Mooney MD [address] [place] [address] [address] [place] [address] Obstetrics and Gynecology 05/17/24 Beth Rai MD [address] [place] [address] 140 [place] [address] Neurology 05/17/24 Michell Espinoza [address] 3rd [place] [address] Cardiology 05/17/24 Shelia Zheng Pm TechnicianManagement Trainer 09/26/23
--- OUTSIDE RECORDS SUMMARY | 2024-11-04 13:54 | XMS_ITS | Encounter Summary ---
Author Organization [employer] Address [address] 7t [place] [address] Care Team Providers Care Lymphedema Therapist Name Role Phone Jennie Murray MD Primary Care Provider Petra Wiley Primary Care Provider [phone] Willard Waters Unavailable [phone] Victoria Sumaya Unavailable Juan Sandra MD Unavailable [phone] Brigid Guy NP Unavailable Vicente Mooney MD Unavailable Beth Rai MD Unavailable Michell Espinoza Unavailable Reason for Visit * Reason Onset Date Comments Appointment Request 12/25/2023 Encounter Details Date Type Department Care Team (Late st Contact Info) Description 12/25/2023 Telephone [facility] MEDICINE [address] [place], [place] [phone] Jennie Murray MD [address] [place], [place] [phone] Appointment Request Social History Tobacco Use Types [...] 12/25/2023 1:07 PM EDT Tc from Patrice, out of school hours care worker with [facility], calling to schedule appt for pt. Pt is awaiting transfer pt appt with Dr. Wiley in which appeals writer attempted to schedule but found no availability. Please contact Patrice at [phone]. documented in this encounter Plan of Treatment Upcoming Encounters Date Type Department Care Team (Late st Contact Info) Description 11/06/2024 3:30 PM EDT Clinical Support [facility] DIABETES/NUTRITION [address] [place] [address] [place] [address] 11/25/2024 9:15 AM EDT Office Visit [facility] MEDICINE [address] [place], [place] [phone] Petra Wiley FNP [address] [place] [address] 11/27/2024 3:30 PM EDT Office Visit [facility] ADULT DENTAL [address] [place] [address] Venkat Barreto DDS [address] [place] [address] 01/18/2025 3:00 PM EDT Office Visit [facility] ADULT DENTAL [address] [place] [address] Sanaz Nelson documented as of this encounter Visit Diagnoses Not on filedocumented in this encounter Additional Health Concerns Assessment Noted Time PHQ-9 Depression Total Score: 0 07/04/19 3:01 PM EST documented as of this encounter Care Teams Lymphedema Therapist Relationship Specialty Start Date End Date Jennie Murray MD [address] [place] [address] PCP - General Family Medicine 06/23/13 03/16/24 Petra Wiley FNP [address] [place] [address] PCP - General Family Medicine 03/17/24 Willard Waters [address] [place] [address] Rheumatology 05/17/[address] 3rd [place] [address] Gastroenterology 05/17/24 Juan Sandra MD [address] [place] [address] Hematology and Oncology 05/17/24 Brigid Guy NP [address] [place] [address] Urology 05/17/24 Vicente Mooney MD [address] [place] [address] [address] [place] [address] Obstetrics and Gynecology 05/17/24 Beth Rai MD [address] [place] [address] [place] [address] Neurology 05/17/24 Michell Espinoza [address] [place] [address] 3rd [place] [address] Cardiology 05/17/24 Shelia Zheng Fans ClerkShank Taper 09/26/23 documented as of this encounter
--- OUTSIDE RECORDS SUMMARY | 2024-11-04 13:54 | XMS_ITS | Encounter Summary ---
Author Organization [employer] Address [address] [facility] 7t [place] [address] Care Team Providers Care Slot Editor Name Role Phone Jennie Murray MD Primary Care Provider Petra Wiley Primary Care Provider [phone] Willard Waters Unavailable [phone] Sumaya Kessler Unavailable Juan Sandra MD Unavailable [phone] Brigid Guy NP Unavailable Vicente Mooney [...] (Late st Contact Info) Description 08/21/[address] [facility] ADULT DENTAL [address] [place] [address] Venkat Barreto DDS [address] [place] [address] Appointment (Ambika Anaya 1985 Patient [...] [facility] DI[facility]NUTRITION [address] [place] [address] [place] [address] 11/25/2024 9:15 AM EDT Office Visit [facility] MEDICINE [address] [place] [address] Petra Wiley FNP 505 [place] [address] 11/27/2024 3:30 PM EDT Office Visit [facility] ADULT DENTAL [address] [place] [address] Venkat Barreto DDS [address] [place] [address] 01/18/2025 3:00 PM EDT Office Visit [facility] ADULT DENTAL [address] [place] [address] Sanaz Nelson documented as of this encounter Visit Diagnoses Not on filedocumented in this encounter Additional Health Concerns Assessment Noted Time PHQ-9 Depression Total Score: 0 07/04/19 23 3:01 PM EST documented as of this encounter Care Teams Slot Editor Relationship Specialty Start Date End Date Jennie Murray MD [address] [place] [address] PCP - General Family Medicine 06/23/13 03/16/24 Petra Wiley FNP [address] [place] [address] PCP - General Family Medicine 03/17/24 Willard Waters [address] [place] [address] Rheumatology 05/17/24 Victoria Sumaya [address] 3rd [place] [address] Gastroenterology 05/17/24 Juan Sandra MD [address] [place] [address] Hematology and Oncology 05/17/24 Brigid Guy NP [address] [place] [address] Urology 05/17/24 Vicente Mooney MD [address] [place] [address] [address] [place] [address] Obstetrics and Gynecology 05/17/24 Beth Rai MD [address] [place] [address] [place] [address] Neurology 05/17/24 Michell Espinoza [address] 3rd [place] [address] Cardiology 05/17/24 Shelia Zheng Wellness Program CoordinatorInspector Glass Or Mirror 09/26/23 documented as of this encounter
--- OUTSIDE RECORDS SUMMARY | 2024-11-04 13:54 | XMS_ITS | Encounter Summary ---
Author Organization [employer] Address [address] [facility] 7t [place] [address] Care Team Providers Care Timber Hand Name Role Phone Jennie Murray MD Primary Care Provider [phone] Petra Wiley Primary Care Provider [phone] Willard Waters Unavailable [phone] KesslerSeptember Unavailable Juan Sandra MD Unavailable [phone] Brigid Guy NP Unavailable Vicente Mooney MD Unavailable Beth Rai MD Unavailable Michell Espinoza Unavailable Encounter Details Date Type Department Care Team (Latest Contact Info) Description 09/03/2018 Abstract [facility] CONVERSIONS Dental, Provider, DDS Social History [...] Description 11/06/2024 3:30 PM EDT Clinical Support [facility] DIABETES/NUTRITION [address] [place] [address] [place], [place] [phone] 11/25/2024 9:15 AM EDT Office Visit [facility] MEDICINE [address] [place] [address] Petra Wiley FNP [address] [place] [address] 11/27/2024 3:30 PM EDT Office Visit [facility] ADULT DENTAL [address] [place] [address] Venkat Barreto DDS [address] [place] [address] 01/18/2025 3:00 PM EDT Office Visit [facility] ADULT DENTAL [address] [place] [address] Sanaz Nelson documented as of this encounter Visit Diagnoses Not on filedocumented in this encounter Care Teams Timber Hand Relationship Specialty Start Date End Date Jennie Murray MD [address] [place] [address] PCP - General Family Medicine 06/23/13 03/16/24 Petra Wiley FNP [address] [place] [address] PCP - General Family Medicine 03/17/24 Willard Waters [address] [place] [address] Rheumatology 05/17/24September [address] 3rd [place] [address] Gastroenterology 05/17/24 Juan Sandra MD [address] [place] [address] Hematology and Oncology 05/17/24 Brigid Guy NP [address] [place] [address] Urology 05/17/24 Vicente Mooney MD [address] [place] [address] [address] [place] [address] Obstetrics and Gynecology 05/17/24 Beth Rai MD [address] [place] [address] [place] [address] Neurology 05/17/24 Michell Espinoza [address] [place] [address] Drive 3rd [place] [address] Cardiology 05/17/24 Shelia Zheng Campaign Marketing SpecialistMovie Critic 09/26/23 documented as of this encounter
--- OUTSIDE RECORDS SUMMARY | 2024-11-04 13:55 | XMS_ITS | Encounter Summary ---
Author Organization [employer] Address [address] [facility] [address] 7t [place] [address] Care Team Providers Care Database Report Writer Name Role Phone Petra Wiley CREPING MACHINE OPERATOR HELPER Primary Care Provider [phone] Willard Waters Unavailable [phone] September Unavailable Juan Sandra MD Unavailable [phone] Brigid Guy NP Unavailable Vicente Mooney MD Unavailable Beth Rai MD Unavailable [phone] Michell Espinoza Unavailable Encounter Details Date Type Department Care Team (Latest Contact Info) Description 11/04/2024 Travel Social History Tobacco Use Types Packs/Day [...] Description 11/06/2024 3:30 PM EDT Clinical Support [facility] DIABETES/NUTRITION [address] [place] [address] Tamanna Mcintyre, ANGELINA [address] [place] [address] 11/25/2024 9:15 AM EDT Office Visit [facility] MEDICINE [address] [place] [address] Petra Wiley, CREPING MACHINE OPERATOR HELPER 505 [place] [address] 11/27/2024 3:30 PM EDT Office Visit [facility] ADULT DENTAL [address] [place] [address] Venkat Barreto DDS [address] [place] [address] 01/18/2025 3:00 PM EDT Office Visit [facility] ADULT DENTAL 505 [place] [address] Sanaz Nelson documented as of this encounter Visit Diagnoses Not on filedocumented in this encounter Additional Health Concerns Assessment Noted Time PHQ-9 Depression Total Score: 13 03/16/ 024 3:11 PM EDT documented as of this encounter Care Teams Database Report Writer Relationship Specialty Start Date End Date Petra Wiley FNP [address] [place] [address] PCP - General Family Medicine 03/17/24 Willard Waters [address] [place] [address] Rheumatology 05/17/24KesslerSeptember [address] [facility] 3rd [place] [address] Gastroenterology 05/17/24 Juan Sandra MD [address] [place] [address] Hematology and Oncology 05/17/24 Brigid Guy NP [address] [place] [address] Urology 05/17/24 iVcente Mooney MD [address] [place] [address] [address] [place] [address] Obstetrics and Gynecology 05/17/24 Beth Rai MD [address] [place] [address] 140 [place] [address] Neurology 05/17/24 Michell Espinoza [address] [facility] 3rd [place] [address] Cardiology 05/17/24 Shelia Zheng Education DiagnosticianProduction Support Consultant 09/26/23 documented as of this encounter
--- OUTSIDE RECORDS SUMMARY | 2024-11-04 13:55 | XMS_ITS | Encounter Summary ---
Author Organization [facility] Address [address] [place] [address] Care Team Providers Care Electric Tripper Machine Operator Name Role Phone Petra Wiley Primary Care Provider [phone] Reason for Referral * MRI/CAT/PET Scan (Routine) - Authorized Specialty Diagnoses / Procedures Referred By Mehreen linares Referred To Contact Diagnoses Right hand pain Procedures MRI Hand Right without Contrast Newton Street DO [address] [place] [address] Phone: tel: fax: [address] [address] Phone: tel: fax: Referral ID Status Reason Start Date Expiration Date V isits Requested Visits Authorized [id number] Authorized 11/02/2024 05/04/2026 1 1 * Physical Therapy (Routine) - Pending Review Specialty Diagnoses / Procedures Referred By Mehreen linares Referred To Contact Physical Therapy Diagnoses Subluxation of knee, unspecified laterality, initial encounter [address] DO [address] [place] [address] Phone: tel: fax: Referral ID Status Reason Start Date Expiration Date Visits Requested Visits Authorized [id number] Pending Review Specialty Services Required 11/02/2024 12/03/2025 6 6 * Consultation (Routine) - Pending Review Specialty Diagnoses / Procedures Referred By Mehreen linares Referred To Contact Diagnoses Iron deficiency Newton Street DO [address] [place] [address] Phone: tel: fax: Referral ID Status Reason Start Date Expiration Date Visits Requested Visits Authorized [id number] Pending Review Specialty Services Required 11/02/2024 12/03/2025 6 6 * Consultation (Routine) - Pending Review Specialty Diagnoses / Procedures Referred By Mehreen linares Referred To Contact Obstetrics and Gynecology Diagnoses Menorrhagia with regular cycle Newton Street DO [address] [place] [address] Phone: tel: fax: Referral ID Status Reason Start Date Expiration Date Visits Requested Visits Authorized [id number] Pending Review Specialty Services Required 11/02/2024 12/03/2025 6 6 Reason for Visit * Reason Comments Follow-up * Consultation (Routine) - Authorized Specialty Diagnoses / Procedures Referred By Mehreen linares Referred To Contact Rheumatology Diagnoses Positive NURIA (antinuclear antibody) Kristen Sparrow MD [address] [place] [address] Phone: tel: fax: [facility] [address] [place] [address] Phone: tel: fax: Referral ID Status Reason Start Date Expiration Date Visits Requested Visits Authorized [id number] Authorized Specialty Services Required 03/19/2024 09/18/2025 6 6 Encounter Details Date Type Department Care Team (Latest Contact Info) Description 11/02/2024 2:20 PM EDT Office Visit [facility] [address] [place] [address] Assistant Track Coach: Newton Rangel DO [address] [place] [address] [place] [address] Menorrhagia with regular cycle (Primary Dx); Iron deficiency; Subluxation of knee, unspecified laterality, initial encounter; Right hand pain Social History Tobacco Use Types Packs/Day Years [...] Pulse 77 11/02/2024 2:02 PM EDT Temperature - - Respiratory Rate - - Oxygen Saturation 100% 11/02/2024 2:02 PM EDT Inhaled Oxygen Concentration - - Weight 73 kg (161 lb) 11/02/2024 2:02 PM EDT Height 149.9 cm (4' 11 ) 11/02/2024 2:02 PM EDT Body Mass Index 32.52 11/02/2024 2:02 PM EDT documented in this encounter Patient Instructions * Patient Instructions* Newton Street DO - 11/02/2024 2:54 PM EDT [facility] [address] [facility], [address], [place] [address] Ramos Benson M.D., F.A.C.M.. Ambrose Benson M.D., D.Sc., documented in this encounter Plan of Treatment Upcoming Encounters Date Type Department Care Team (Late st Contact Info) Description 02/09/2025 10:15 AM EDT Office Visit [facility]atology Clinic [address] [facility], [place] [address] Assistant Track Coach: Breann Tang MD [address] [place] [address] Scheduled Orders Name Type Priority Associated Diagnoses Orde r Schedule MRI Hand Right without Contrast Imaging Munoz Routine Right hand pain Expected: 11/02/2024, Expires: 12/03/2025 Scheduled Referrals Name Type Priority Associated Diagnoses Orde r Schedule Ambulatory referral to Obstetrics / Gynecology Outpatient Referral Routine Menorrhagia with regular cycle Expected: 11/02/2024, Expires: 12/03/2025 Ambulatory referral to Hematology / Oncology Outpatient Referral Routine Iron deficiency Expected: 11/02/2024, Expires: 12/03/2025 Ambulatory referral to Physical Therapy Outpatient Referral Routine Subluxation of knee, unspecified laterality, initial encounter Expected: 11/02/2024, Expires: 12/03/2025 documented as of this encounter Visit Diagnoses Diagnosis Menorrhagia with regular cycle- Primary Iron deficiency Disorders of iron metabolism Subluxation of knee, unspecified laterality, initial encounter Right hand pain Pain in soft tissues of limb documented in this encounter Care Teams Electric Tripper Machine Operator Relationship Specialty Start Date End Date Petra Wiley [address] [place] [address] PCP - General Family Medicine 03/19/24 documented as of this encounter
== END 2024-11-04 13:20 | disposition home or self-care (01) ==
LOC: HO.US 13:19
PROVIDERS: PCP Registered Nurse; Visit Provider Obstetrics & Gynecology
DX: N93.9 Abnormal uterine and vaginal bleeding, unspecified (principal)
CPT/HCPCS: 76830; 76856

== ENCOUNTER → 2024-11-04 13:21 | Outpatient (BNV) | payer MEDICAID, SELFPAY | PROVIDERS: PCP Registered Nurse; Visit Provider Radiology Diagnostic Radiology | DX: N93.9 Abnormal uterine and vaginal bleeding, unspecified (principal) | CPT/HCPCS: 76830; 76856 ==

== ENCOUNTER 2024-11-10 13:46 | Outpatient (AMB) | payer MEDICAID, SELFPAY ==
--- NOTE | 2024-11-10 13:47 | A.OFFVIS_ITS ---
Intake Visit Reasons: 3M follow up/US(set) Intake Note: Patient presents today for follow up on: Nephrolithiasis and ultrasound results Imaging Completed: 10/26/24 Urology Medication:None Blood thinner: none Registered Nurse Cardiovascular Icu Required: No Accompanied by: Unknown Allergies Iodinated Contrast Media [IV DYE, IODINE CONTAINING CONTRAST ] Allergy (Intermediate, Verified 11/10/24 21:25) SHORTNESS OF BREATH citalopram [From CELEXA] Allergy (Unknown, Verified 11/10/24 21:25) VOMITTING duloxetine [Cymbalta] Allergy (Unknown, Verified 11/10/24 21:25) unknown morphine [MORPHINE] Allergy (Unknown, Verified 11/10/24 21:25) PALPITATIONS-PT PREFERS NOT TO TAKE tramadol [TRAMADOL] Allergy (Unknown, Verified 11/10/24 21:25) VOMITING Medication List - Last Reconciled 11/10/24 by NIC Davey- albuterol sulfate 90 mcg/actuation (Ventolin HFA) 1 inh inhalation QID azelastine 1 spray intranasal BID PRN cholecalciferol (vitamin D3) 25 mcg PO DAILY dexlansoprazole (Dexilant) 60 mg PO DAILY 30 days dicyclomine 10 mg PO TID PRN famotidine 40 mg PO BEDTIME ferrous sulfate 300 mg (5 mL) PO BID ferrous sulfate ER 142 mg PO BID fexofenadine 180 mg PO DAILY ibuprofen 400 mg PO Q4-6H PRN [id number] 36,000-114,000- 180,000 unit (Creon) 2 caps PO BID loratadine (Children's Allergy Relief (loratadine)) 10 mL PO DAILY lorazepam 1 mg PO BEDTIME PRN metoclopramide HCl (Reglan) 5 mg PO QIDACHS nabumetone 750 mg PO BID pregabalin 75 mg PO BID propranolol 20 mg PO BID simethicone 180 mg PO QID 30 days HPI Comments Details: Ambika is a pleasant 39-year-old female patient of Dr. Hightower who was accompanied by her significant other at today's office visit. She has a past medical history of vitamin-D deficiency, obesity, thyroiditis, fibroadenoma, lipoma, fibromyalgia, and NURIA positive. She presents to the office today for follow-up of her nephrolithiasis. Recent renal imaging results reviewed with the patient today 11/08 bilateral kidneys are normal in thickness and echotexture. No hydronephrosis noted bilaterally. Bilateral nonobstructing renal calculi measuring less than 3 mm bilaterally. When asked she does continue to attempt to drink plenty of water daily. She discusses her ongoing medical issues and has been following up with her operations business partner [facility]. She discusses her upcoming genetic testing appointment with a provider in [place]. She also reports having followed up with plate shop helper for abnormal bleeding she had been experiencing in his since had IUD inserted. She does report noting urinary frequency and urgency when she was experiencing abnormal bleeding however does feel over the last 5 days since bleeding has significantly subsided lower urinary tract symptoms have improved however does feel at times she does continue to experience urinary urgency and frequency. She reports episodes of bladder pressure she had been experiencing during last office visit have also subsided. She reports having taken azo [id number] and feels this was helpful. In office urinalysis results reviewed with the patient today. We discussed potential causes of lower urinary tract symptoms and nephrolithiasis as well as further treatment options and risks and benefits of these treatment options. She continues to work with her tape recorder repairer as she is attempting to lose weight. She denies incontinence, nocturia, hematuria, dysuria, foul smelling urine, changes to urinary stream, fever, and or chills. She does report generalized pain. She also reports right-sided flank and lumbar discomfort that radiates to right lower extremity. No CVA tenderness noted bilaterally. She otherwise offers no other issues or concerns at this time. [facility] Medical History Nausea and vomiting Diarrhea Small intestinal bacterial overgrowth (SIBO), hydrogen subtype Upper abdominal pain Jaylyn albicans infection History of thyroiditis Palpitations Left flank pain, chronic Left hip pain Oropharyngeal dysphagia Rectal bleeding Breast lump Nephrolithiasis Vulvovaginitis jaylyn albicans Vulvovaginal candidiasis Myalgia Toe swelling Hives Vulvovaginitis Fibroadenoma of both breasts Acute diarrhea Recurrent nephrolithiasis Vitamin D deficiency Obesity Fibroadenoma Lipoma Fibromyalgia NURIA positive Hx of lipoma Surgical History History of esophagogastroduodenoscopy (EGD) History of wisdom tooth extraction Family History Father Diabetes Heart attack Asthma Maternal Grandmother Diabetes HTN (hypertension) Parkinson disease Breast cancer Mother Diabetes Family history of diabetes mellitus Sister Asthma Maternal Grandfather Parkinson disease Social History Household Members: Children Housing: Condominium Are you a primary healthcare risk control consultant to a significant other at home: No Do you presently have visiting nurse 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 (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) Alcohol intake: never Patient Tobacco Use Status: Never used Tobacco Second Hand Smoke Exposure: Yes (Neighbors) service: No Current occupational status: disabled Sexual orientation: Straight/Heterosexual Gender identity: Female Female Reproductive History Menstrual Age of Menarche: 13 Review of Systems Const All systems reviewed & are unremarkable except as noted in HPI and below Physical Exam Const General: cooperative, healthy appearing, comfortable, no acute distress, well developed, alert and awake Nutritional Appearance: overweight Orientation/consciousness: patient oriented x3 Limitations: no limitations HEENT Head: Yes normal to inspection, Yes normocephalic and Yes atraumatic Ears: hearing grossly normal bilaterally Eyes General: appearance normal, both eyes and all related structures Neck Neck: Yes normal visual inspection and Yes trachea midline Chest Chest palpation & inspection: normal inspection of the chest Resp Effort & Inspection: able to speak in complete sentences Cardio Rate: regular rate GI Inspection: Yes normal to inspection General: Yes no CVA tenderness Back/Spine/Pelvis Back: no CVA tenderness Skin General skin exam: no rashes or lesions noted Neuro General: patient oriented x3 Extrem General: Yes normal to inspection Psych Appearance: grossly normal and well kempt Mental Status: mental status grossly normal Speech and movement: Clear speech present Affect: normal affect Attitude: cooperative Thought process: Normal thought process present Thought content: Normal thought content present Insight: Fair insight present (Psych) Judgement: Fair judgement present (Psych) Results AMB Urinalysis, Automated UA Leukoctes 70 Gael/uL Last Edit by Sravani Garza on 11/10/24 14:02 UA Nitrite Last Edit by Sravani Garza on 11/10/24 14:02 UA Urobilinogen 0.2 mg/dL Last Edit by Sravani Garza on 11/10/24 14:02 UA Protein 15 mg/dL Last Edit by Sravani Garza on 11/10/24 14:02 UA pH 6.0 Last Edit by Sravani Garza on 11/10/24 14:02 UA Blood 25 Constantino/uL Last Edit by Sravani Garza on 11/10/24 14:02 UA Specific [place] 1.025 Last Edit by Sravani Garza on 11/10/24 14:02 UA Ketone Last Edit by Sravani Garza on 11/10/24 14:02 UA Bilirubin 0 mg/dL Last Edit by Sravani Garza on 11/10/24 14:02 UA Glucose 0 mg/dL Last Edit by Sravani Garza on 11/10/24 14:02 Results Reviewed Results Reviewed: Laboratory Last Values Urine pH (Auto) 6.0 11/10/24 13:52 Specific [place] (Auto) 1.025 11/10/24 13:52 Urine Protein (Auto) 15 mg/dL 11/10/24 13:52 Glucose (UA)(Auto) 0 mg/dL 11/10/24 13:52 Urine Blood (Auto) 25 Constantino/uL 11/10/24 13:52 Urine Bilirubin (Auto) 0 mg/dL 11/10/24 13:52 Urine Urobilinogen (Auto) 0.2 mg/dL 11/10/24 13:52 Leukocyte Esterase (Auto) 70 Gael/uL 11/10/24 13:52 Date of Service: 10/26/24 Procedure(s): US renal BI FINDINGS: Right kidney: 10 x 5 x 5 cm. Normal echotexture. Normal renal cortical thickness. Prominent Trae column. No hydronephrosis. There are at least 3 less than 3 mm hyperechoic lesion centered the corticomedullary junction, most in the upper pole of the pelvicalyceal system. Left kidney: 11 x 5 x 4 cm. Normal echotexture. Normal renal cortical thickness. No hydronephrosis. There are 2 hyperechoic less than 3 mm lesions in the upper pole. IMPRESSION: Nonobstructing nephrolithiasis, bilaterally. Assessment & Plan Assessment & Plan (1) Recurrent nephrolithiasis: Code(s): N20.0 - Calculus of kidney Category: Medical (2) Urinary frequency: Code(s): R35.0 - Frequency of micturition Category: Medical (3) Urinary urgency: Code(s): R39.15 - Urgency of urination Category: Medical Plan In office urinalysis results reviewed with the patient today; as noted above. Recent renal imaging results reviewed with the patient today; as noted above. We discussed importance of adequate hydration relation to nephrolithiasis as well as lower urinary tract symptoms. Will continue with surveillance monitoring at this time. Continue to follow-up with plate shop helper, Rheumatology, Oncology, Gastroenterology, and PCP as planned. Will obtain renal ultrasound in 3-6 months. Follow-up in 3-6 months with imaging to be completed prior; or sooner with any issues, concerns, and or questions. Orders: Orders AMB Urinalysis Automated Today Z13.9 - Encounter for screening, unspecified US renal BI 3 Months N20.0 - Calculus of kidney Patient Instructions: The patient had an opportunity to ask questions regarding the treatment plan. All questions were answered. Physical exam, labs, and imaging were discussed and reviewed in detail. As well as risks, benefits, and discussion of treatment choices. No major barriers to understanding were identified. The patient expressed understanding and agreement with the above treatment plan. The patient was made aware they should contact our office by phone for worsening of their current condition, the appearance of new symptoms, or with any questions or concerns. Compliance is encouraged with any medications and follow up testing that is ordered. It is a privilege to be allowed the opportunity to participate in? your urological care.? Again, if you have any questions or concerns If you have any questions or concerns please do not hesitate to contact me. The office is [phone]. This note is constructed using voice recognition software. While every effort has been made to ensure accuracy histopath tech errors may have been included. Yours sincerely, LINUS Davey Coding Level of Care Code Est Pt Level 4 (61295) Complex EM visit Add On G2211 Diagnoses Recurrent nephrolithiasis N20.0 Urinary frequency R35.0 Urinary urgency R39.15 Time Spent (min) 35
== END 2024-11-10 15:04 | disposition home or self-care (01) ==
LOC: HO.HUSH 13:47
PROVIDERS: PCP Student in an Organized Health Care Education/Training Program; Visit Provider Nurse Practitioner Family
DX: N20.0 Calculus of kidney (principal); R35.0 Frequency of micturition; R39.15 Urgency of urination; Z13.9 Encounter for screening, unspecified
CPT/HCPCS: 99214

== ENCOUNTER → 2024-11-10 13:46 | Outpatient (BNVA) | payer MEDICAID, SELFPAY | PROVIDERS: PCP Student in an Organized Health Care Education/Training Program; Visit Provider Nurse Practitioner Family | DX: N20.0 Calculus of kidney (principal); R35.0 Frequency of micturition; R39.15 Urgency of urination | CPT/HCPCS: 81003; 99212 ==

== ENCOUNTER 2024-11-17 12:01 | Outpatient (AMB) | payer MEDICAID, SELFPAY ==
--- NOTE | 2024-11-17 12:06 | A.OFFVIS_ITS ---
Vital Signs 11/17/24 12:10 Height 4 ft 11 in Weight 154 lb BMI 31.1 Intake Visit Reasons: 6 week IUD Check/U/S f/u Cardiovascular Technologist Required: Yes Cardiovascular Technologist Language: Product Support Engineer Services: Cardiovascular Technologist Present (in person) Cardiovascular Technologist Name: Renee PAZ Information Interpreted: non-clinical & clinical Facility Service Associate: Facility Service Associate Present (Renee PAZ) Accompanied by: Spouse Allergies Iodinated Contrast Media [IV DYE, IODINE CONTAINING CONTRAST ] Allergy (Intermediate, Verified 11/17/24 12:15) SHORTNESS OF BREATH citalopram [From CELEXA] Allergy (Unknown, Verified 11/17/24 12:15) VOMITTING duloxetine [Cymbalta] Allergy (Unknown, Verified 11/17/24 12:15) unknown morphine [MORPHINE] Allergy (Unknown, Verified 11/17/24 12:15) PALPITATIONS-PT PREFERS NOT TO TAKE tramadol [TRAMADOL] Allergy (Unknown, Verified 11/17/24 12:15) VOMITING Is last menstrual period known: No (mirena) HPI Comments Details: The patient is presenting for IUD check after 1 st period following IUD insertion. The patient has no complaints periods are normal, not painful, and flow is normal. Pelvic ultrasound follow-up done recently which showed the following: Uterus: The uterus is anteverted, retroflexed, and measures 8.5 x 4.2 x 4.3 cm. The cervix has a normal sonographic appearance. There are small nabothian cysts present. The double wall endometrial thickness is 5 mm. There is an IUD in place in good position. The uterus is smooth in contour and has heterogeneous echogenicity. There are 2 small fibroids identified: There is a left fundal intramural fibroid measuring 2.0 x 1.6 x 1.6 cm (previously 1.7 x 1.4 x 1.5 cm). There is a dorsal midline subserosal fibroid measuring 0.8 x 0.6 x 1.0 cm. (Previously 1.1 x 0.8 x 1.2 cm). Adnexa: Both ovaries are visualized. There is normal color flow to the adnexa. There is no ovarian torsion. There is no pelvic ascites or fluid collection. Right ovary measures 4.5 x 2.2 x 2.8 cm. Volume = 15.0 mL. Normal sonographic appearance. Left ovary measures 1.9 x 1.4 x 1.8 cm. Normal sonographic appearance. COUNTS INCLUDE 234 BEDS AT THE [facility] Medical History Nausea and vomiting Diarrhea Small intestinal bacterial overgrowth (SIBO), hydrogen subtype Upper abdominal pain Jaylyn albicans infection History of thyroiditis Palpitations Left flank pain, chronic Left hip pain Oropharyngeal dysphagia Rectal bleeding Breast lump Nephrolithiasis Vulvovaginitis jaylyn albicans Vulvovaginal candidiasis Myalgia Toe swelling Hives Vulvovaginitis Fibroadenoma of both breasts Acute diarrhea Recurrent nephrolithiasis Vitamin D deficiency Obesity Fibroadenoma Lipoma Fibromyalgia NURIA positive Hx of lipoma Surgical History History of esophagogastroduodenoscopy (EGD) History of wisdom tooth extraction Family History Father Diabetes Heart attack Asthma Maternal Grandmother Diabetes HTN (hypertension) Parkinson disease Breast cancer Mother Diabetes Family history of diabetes mellitus Sister Asthma Maternal Grandfather Parkinson disease Social History Household Members: Children Housing: Condominium Are you a primary director of career resources to a significant other at home: No Do you presently have visiting nurse 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) Alcohol intake: never Patient Tobacco Use Status: Never used Tobacco Second Hand Smoke Exposure: Yes (Neighbors) service: No Current occupational status: disabled Sexual orientation: Straight/Heterosexual Gender identity: Female Female Reproductive History Menstrual Age of Menarche: 13 Review of Systems Const All systems reviewed & are unremarkable except as noted in HPI and below Physical Exam Vital Signs: BMI result Body Mass Index 31.1 General: Yes no CVA tenderness External Female Exam: normal external appearance and normal appearance of the urethra Speculum Exam - Vagina: normal appearance of the vagina, normal palpation, no lesions and no masses Speculum Exam - Cervix: normal appearance of the cervix, normal palpation, no lesions, no masses, nontender and Other cervical findings present (IUD string in place) Bimanual exam- vagina & uterus: normal bimanual exam, normal palpation, uterine size normal, normal palpation, uterine shape normal, No Cervical tenderness present and non-tender Bimanual Exam- Adnexa, other: normal adnexae Back/Spine/Pelvis Back: no CVA tenderness Assessment & Plan Assessment & Plan (1) IUD check up: Code(s): Z30.431 - Encounter for routine checking of intrauterine contraceptive device Category: Medical Plan: UPT done in the office was negative. Discussed with the patient the finding on physical exam, IUD string in place, the patient was reassured. Instructions given to patient to call in case of temperature above 100.4, severe cramping/pelvic pain, abnormal discharge or abnormal uterine bleeding or if she misses her menstrual cycle. Otherwise follow-up at her annual exam appointment. All questions answered, the patient verbalized understanding. (2) Uterine myoma: Code(s): D25.9 - Leiomyoma of uterus, unspecified Category: Medical Plan: Discussed with the patient the findings on pelvic ultrasound & the risk of myosarcoma; in addition reviewed with the patient that malignancy and pre malignancy cannot be ruled out without hysterectomy for pathological evaluation ; furthermore, explained to the patient the limitation of pelvic ultrasound and endometrial biopsy in the setting. Discussed with the patient the options of treatment including expectant management versus hysterectomy; the pros and cons, risks benefits of each approa ch were discussed with the patient including the fact that in cases of myosarcoma, surgical treatment can lead to early diagnosis and positively affects the prognosis; after further discussion, the patient decided to proceed with expectant management. Will repeat pelvic ultrasound periodically. Instructions given to patient to call in case any of the following occurs: pressure symptoms, abnormal uterine bleeding, pelvic pain; and to schedule a 12- months pelvic ultrasound (order placed) and a follow-up appointment . All questions answered, the patient verbalized understanding and agreed with the plan . Orders: Orders US pelvic and transvaginal 12 Months D25.9 - Leiomyoma of uterus, unspecified Coding Level of Care Code Est Pt Level 3 (75224) Diagnoses IUD check up Z30.431 Uterine myoma D25.9
[2024-11-17 12:10] VITALS: BMI 31.1
--- OUTSIDE RECORDS SUMMARY | 2024-11-17 13:30 | XMS_ITS | Encounter Summary ---
Author Organization [facility] Address [address] [place] [address] Care Team Providers Care Agricultural Real Estate Agent Name Role Phone Petra Wiley Primary Care Provider [phone] Reason for Visit * Reason Onset Date Comments PAC Appt Request - New 11/05/2024 Encounter Details Date Type Department Care Team (Late st Contact Info) Description 11/05/2024 Telephone [facility] [address] [phone] Telephone Intake, Staff PAC Appt Request - [...] encounter Miscellaneous Notes * Telephone Encounter - Sia Harringtonarez - 11/05/2024 3:20 PM EDT New pt Clinic: [facility] RFV/DX: Iron deficiency anemia Reason for escalation: no appts within timeframe Best # [phone] Thank you documented in this encounter Plan of Treatment Upcoming Encounters Date Type Department Care Team (Late st Contact Info) Description 12/17/2024 11:00 AM EDT Office Visit [facility] [address] [phone] Shavon Roberson NP [address] [place] [address] 02/09/2025 10:15 AM EDT Office Visit [facility] Clinic 4th Floor [address] [facility], [place] [phone] Syrup Mixer Helper: Breann Tang MD [address] [place] [phone] documented as of this encounter Visit Diagnoses Not on filedocumented in this encounter Care Teams Agricultural Real Estate Agent Relationship Specialty Start Date End Date Petra Wiley [address] [place] [phone] PCP - General Family Medicine 03/19/24 documented as of this encounter
== END 2024-11-17 12:34 | disposition home or self-care (01) ==
LOC: HO.HWS 12:01
PROVIDERS: PCP Student in an Organized Health Care Education/Training Program; Visit Provider Obstetrics & Gynecology
DX: Z30.431 Encounter for routine checking of intrauterine contraceptive device (principal); D25.9 Leiomyoma of uterus, unspecified; Z32.02 Encounter for pregnancy test, result negative
CPT/HCPCS: 99213

== ENCOUNTER → 2024-11-17 12:01 | Outpatient (BNVA) | payer MEDICAID, SELFPAY | PROVIDERS: PCP Student in an Organized Health Care Education/Training Program; Visit Provider Obstetrics & Gynecology | DX: D25.9 Leiomyoma of uterus, unspecified (principal); Z30.431 Encounter for routine checking of intrauterine contraceptive device | CPT/HCPCS: 81025; 99212 ==

== ENCOUNTER 2024-11-19 16:10 | Outpatient (REF) | payer MEDICAID, SELFPAY ==
[2024-11-19 16:27] LABS: MANUAL DIFF FLAG NO
[2024-11-19 17:24] LABS: Basophils Absolute Auto 0.1 X10*3/uL (0.0-0.2); Basophils Percent Auto 0.6 % (0-2); Eosinophils Absolute Auto 0.1 X10*3/uL (0.0-0.4); Eosinophils Percent Auto 1.5 % (0-4); Hematocrit 38.4 % (37.0-47.0); Hemoglobin 12.1 g/dl (12.0-16.0); Imm Gran Abs Auto 0.02 X10*3/uL (0.00-0.03); Imm Gran Pct Auto 0.2 % (0.0-0.4); Lymphocytes Absolute Auto 2.5 X10*3/uL (1.2-4.9); Lymphocytes Percent Auto 26.1 % (20-40); Mean Corpuscular HGB Conc 31.5 g/dl (31.0-35.0); Mean Corpuscular Volume 82.4 fL (80.0-98.0); Mean Platelet Volume 12.1 fL (9.4-12.3); Monocytes Absolute Auto 0.6 X10*3/uL (0.1-1.2); Monocytes Percent Auto 6.7 % (2-11); Neutrophils Absolute Auto 6.2 x10*3/uL (2.0-8.3); Neutrophils Percent Auto 64.9 % (45-73); Platelet Count 280 X10*3/uL (160-400); Red Blood Count 4.66 X10*6/uL (4.20-5.50); White Blood Count 9.5 X10*3/uL (4.8-10.8)
[2024-11-19 18:03] LABS: Iron 89 mcg/dL (30-160); Percent Iron Saturation 30 % (15-50); Total Iron Binding Capacity 298 mcg/dL (228-428); Unsaturated Iron Binding 209 ug/dL
--- OUTSIDE RECORDS SUMMARY | 2024-11-19 18:14 | XMS_ITS | Encounter Summary ---
Author Organization [facility] Address [address] [place] [address] Care Team Providers Care Program Professional Name Role Phone Petra Wiley Primary Care Provider [phone] Reason for Visit * Reason Onset Date Comments PAC Appt Request - New 11/05/2024 Encounter Details Date Type Department Care Team (Late st Contact Info) Description 11/05/2024 Telephone [facility] [address] [phone] Telephone Intake, Staff PAC Appt Request - [...] escalation: no appts within timeframe Best # [phone] Thank you documented in this encounter Plan of Treatment Upcoming Encounters Date Type Department Care Team (Late st Contact Info) Description 12/17/2024 11:00 AM EDT Office Visit [facility] Cancer [address] [phone] Shavon Roberson NP [address] [place] [address] 02/09/2025 10:15 AM EDT Office Visit [facility] Dermatology Clinic 4th Floor [address] [facility], [place] [phone] Accounting Professor: Breann Tang MD [address] [place] [phone] documented as of this encounter Visit Diagnoses Not on filedocumented in this encounter Care Teams Program Professional Relationship Specialty Start Date End Date Petra Wiley [address] [place] [phone] PCP - General Family Medicine 03/19/24 documented as of this encounter
[2024-11-19 18:19] LABS: Ferritin 116 ng/mL (10-122); Lactate Dehydrogenase 135 U/L (122-220)
== END 2024-11-19 16:11 | disposition home or self-care (01) ==
LOC: HO.LAB 16:10
PROVIDERS: PCP Registered Nurse; Visit Provider Registered Nurse
DX: D64.9 Anemia, unspecified (principal)
CPT/HCPCS: 82728; 83540; 83615; 85025

== ENCOUNTER 2024-11-25 11:48 | Outpatient (REF) | payer MEDICAID, SELFPAY ==
--- NOTE | ~2024-11-25 | XR_ITS ---
CLINICAL HISTORY: 39 y o Left hand pain 3 view left hand Comparison: None Findings: No acute fractures or dislocations. No large or proximal erosions by radiographs. Soft tissue swelling and/or prominence nonspecific including thenar region and 1st webspace. No radiopaque foreign body. IMPRESSION: 1. No acute fracture or dislocation. 2. No large or proximal erosions. This document has been electronically signed by: Liu Alston MD on 11/25/2024 20:34:10
--- OUTSIDE RECORDS SUMMARY | 2024-11-25 13:32 | XMS_ITS | Encounter Summary ---
Author Organization [facility] Address [address] [place] [address] Care Team Providers Care Planting Supervisor Name Role Phone Petra Wiley Primary Care Provider [phone] Reason for Visit * Reason Onset Date Comments PAC Appt Request - New 11/05/2024 Encounter Details Date Type Department Care Team (Late st Contact Info) Description 11/05/2024 Telephone [facility] [address] [phone] Telephone Intake, Staff PAC Appt Request - [...] escalation: no appts within timeframe Best # [phone] Thank you documented in this encounter Plan of Treatment Upcoming Encounters Date Type Department Care Team (Late st Contact Info) Description 12/17/2024 11:00 AM EDT Office Visit [facility] [address] [phone] Shavon Roberson NP [address] [place] [address] 02/09/2025 10:15 AM EDT Office Visit [facility] Dermatology Clinic 4th Floor [address] [facility], [place] [phone] Special Tax Auditor: Breann Tang MD [address] [place] [phone] documented as of this encounter Visit Diagnoses Not on filedocumented in this encounter Care Teams Planting Supervisor Relationship Specialty Start Date End Date Petra Wiley [address] [place] [phone] PCP - General Family Medicine 03/19/24 documented as of this encounter
== END 2024-11-25 11:49 | disposition home or self-care (01) ==
LOC: HO.XRAY 11:48
PROVIDERS: PCP Registered Nurse; Visit Provider Registered Nurse
DX: M79.642 Pain in left hand (principal)
CPT/HCPCS: 73130

== ENCOUNTER → 2024-11-25 11:53 | Outpatient (BNV) | payer MEDICAID, SELFPAY | PROVIDERS: PCP Registered Nurse; Visit Provider Radiology Neuroradiology | DX: M79.642 Pain in left hand (principal) | CPT/HCPCS: 73130 ==

== ENCOUNTER 2024-11-26 14:32 | Outpatient (REF) | payer MEDICAID, SELFPAY ==
[2024-11-26 15:08] LABS: Estimated Average Glucose 97 mg/dL
[2024-11-26 15:24] LABS: Alanine Aminotransferase 18 U/L (0-31); Albumin Level 4.8 g/dL (3.5-5.0); Alkaline Phosphatase 46 U/L (39-117); Anion Gap 11 (12-20); Aspartate Amino Transferase 17 U/L (5-31); Bilirubin Total 0.2 mg/dL (0.0-1.0); Blood Urea Nitrogen 10 mg/dL (9-16); Calcium 9.6 mg/dL (8.4-10.2); Carbon Dioxide 28 mmol/L (22-29); Chloride 106 mmol/L (96-108); Cholesterol 208 mg/dL (<200); Estimated Glomerular Filt Rate > 60; Glucose Random 90 mg/dL (60-115); HDL Cholesterol 48 mg/dL (>40); LDL Cholesterol Calculated 140 mg/dL (<100); Potassium 3.7 mmol/L (3.3-5.1); Sodium 141 mmol/L (135-145); Total Protein 7.4 g/dL (6.5-8.0); Triglycerides 101 mg/dL (<150)
--- OUTSIDE RECORDS SUMMARY | 2024-11-26 17:06 | XMS_ITS | Encounter Summary ---
Author Organization [facility] Address [address] [place] [address] Care Team Providers Care Manager Compensation Name Role Phone Petra Wiley Primary Care Provider [phone] Reason for Visit * Reason Onset Date Comments PAC Appt Request - New 11/05/2024 Encounter Details Date Type Department Care Team (Late st Contact Info) Description 11/05/2024 Telephone [facility] [address] [phone] Telephone Intake, Staff PAC Appt Request - [...] escalation: no appts within timeframe Best # [phone] Thank you documented in this encounter Plan of Treatment Upcoming Encounters Date Type Department Care Team (Late st Contact Info) Description 12/17/2024 11:00 AM EDT Office Visit [facility] [address] [phone] Shavon Roberson NP [address] [place] [address] 02/09/2025 10:15 AM EDT Office Visit [facility] Dermatology Clinic 4th Floor [address] [facility], [place] [phone] Journeyman Patternmaker: Breann Tang MD [address] [place] [phone] documented as of this encounter Visit Diagnoses Not on filedocumented in this encounter Care Teams Manager Compensation Relationship Specialty Start Date End Date Petra Wiley [address] [place] [phone] PCP - General Family Medicine 03/19/24 documented as of this encounter
== END 2024-11-26 14:33 | disposition home or self-care (01) ==
LOC: HO.LAB 14:32
PROVIDERS: PCP Registered Nurse; Visit Provider Registered Nurse
DX: Z00.00 Encounter for general adult medical examination without abnormal findings (principal)
CPT/HCPCS: 36415; 80053; 80061; 83036

== ENCOUNTER 2024-12-16 14:23 | Emergency (ER) | payer MEDICAID, SELFPAY ==
--- NOTE | ~2024-12-16 | CT_ITS ---
EXAMINATION: CT ABDOMEN AND PELVIS WITHOUT CONTRAST CLINICAL INFORMATION: Right lower quadrant pain DLP: 553 mGY*cm COMPARISON: Renal ultrasound October 26, 2024 TECHNIQUE: Multidetector volumetric imaging was performed from the superior aspect of the liver through the pubic symphysis. Sagittal and coronal reformatted images were obtained on the technologist's workstation. This CT examination was performed using dose optimization techniques as appropriate, variously including the following: *Automated exposure control *Adjustment of mA and/or kV according to patient size (this includes techniques or standardized protocols for targeted exams where dose is matched to indication/reason for exam; i.e. extremities or head) *Use of iterative reconstruction technique FINDINGS: LUNG BASES: The visualized lung bases are unremarkable. LIVER, GALLBLADDER, AND BILIARY TREE: 4 x 8 mm hypoattenuating lesion in the posterior superior right hepatic segment. It is too small to characterize but probably represents a cyst or hemangioma. The gallbladder is unremarkable with no evidence of radiopaque gallstones, gallbladder wall thickening, or obvious pericholecystic inflammatory changes. PANCREAS: Unremarkable. SPLEEN: Unremarkable. ADRENAL GLANDS: Unremarkable. KIDNEYS AND URETERS: 2 punctate calcifications in the right kidney may represent stones. 2 Punctate calcifications in the left kidney likely represent stones. There is no hydronephrosis or ureteral stones. BLADDER: Unremarkable. GASTROINTESTINAL TRACT: The small and large bowel are unremarkable. The appendix is unremarkable. ABDOMINAL WALL: Small periumbilical hernia contains fat, no change LYMPH NODES: Normal. VASCULAR: Unremarkable. PELVIC VISCERA: There is an IUD within the upper uterine canal. There is a right adnexal mass with mixed density. There is fluid density in the upper two thirds and higher density in the lower third suggesting proteinaceous debris. Left adnexa is unremarkable. There is a small amount of free fluid in the cul-de-sac. OSSEOUS STRUCTURES: Unremarkable. CT/CT abdomen pelvis wo IV con IMPRESSION: Probable hemorrhagic right ovarian cyst measuring 3.8 cm long axis. Follow up is not indicated. A few punctate stones are present in both kidneys, no hydronephrosis is present. Fleischner guidelines were followed. Electronically signed by: Bassam Barnes MD 12/16/2024 04:57 PM EDT
[2024-12-16 15:02] VITALS: BP 117/66; PULSE 79; RESP 18; TEMP 36; O2SAT 99; BMI 30.8
--- NOTE | 2024-12-16 15:06 | ED.GENADULT ---
HPI - General Adult General Chief complaint: Abdominal Pain Stated complaint: abd pain lower back pain came from P therapy Time Seen by Provider: 12/16/24 15:42 Source: patient Mode of arrival: ambulatory Limitations: no limitations History of Present Illness HPI narrative: this is 39 years old the patient with history of anemia, palpitation, atypical chest pain, anxiety fibromyalgia was going to physical therapy and developed some abdominal pain radiated to the back so she was sent to the emergency department by the physical therapist. She has nausea but no vomiting no diarrhea. Onset (ago): hour(s) (2) Location: abdomen Radiation: non-radiation Severity: mild Pain Consistency: intermittent and now resolved Relieving factors: none Exacerbating factors: none Associated symptoms: denies other symptoms Related Data Home Medications ?Medication ?Instructions ?Recorded ?Confirmed lorazepam 1 mg tablet 1 mg PO BEDTIME PRN Anxiety 03/29/20 10/09/24 ibuprofen 400 mg tablet 400 mg PO Q4-6H PRN Pain 11/20/21 10/09/24 albuterol sulfate 90 mcg/actuation 1 inh inhalation QID 09/19/22 10/09/24 aerosol inhaler (Ventolin HFA) loratadine 5 mg/5 mL oral solution 10 ml PO DAILY 09/19/22 10/09/24 (Children's Allergy Relief (loratadine)) pregabalin 75 mg capsule 75 mg PO BID 11/20/23 10/09/24 nabumetone 750 mg tablet 750 mg PO BID 03/25/24 10/09/24 fexofenadine 180 mg tablet 180 mg PO DAILY 04/07/24 10/09/24 azelastine 137 mcg (0.1 %) nasal 1 spray intranasal BID PRN 04/17/24 10/09/24 spray allergies cholecalciferol (vitamin D3) 25 25 mcg PO DAILY 04/17/24 10/09/24 mcg (1,000 unit) tablet ferrous sulfate 142 mg (45 mg 142 mg PO BID 10/09/24 10/09/24 iron) tablet,extended release Previous Rx's ?Medication ?Instructions ?Recorded dicyclomine 10 mg capsule 10 mg PO TID PRN abdominal pain 01/15/24 #90 caps propranolol 20 mg tablet 20 mg PO BID for palpitations #60 02/21/24 tabs ferrous sulfate 300 mg (60 mg 300 mg (5 mL) PO BID #500 mL 03/25/24 iron)/5 mL oral liquid famotidine 40 mg tablet 40 mg PO BEDTIME #90 tabs 04/07/24 fvjvlo-[id number] 2 cap PO BID #120 caps 04/07/24 36,000-114,000-180,000 unit capsule,delay rel (Creon) metoclopramide HCl 5 mg tablet 5 mg PO QIDACHS #120 tabs 04/07/24 (Reglan) simethicone 180 mg capsule 180 mg PO QID 30 days #120 caps 04/07/24 dexlansoprazole 60 mg 60 mg PO DAILY 30 days #90 caps 07/13/24 capsule,biphase delayed release (Dexilant) Allergies Allergy/AdvReac Type Severity Reaction Status Date / Time Iodinated Contrast Media (IV Allergy Intermediate SHORTNESS Verified 12/16/24 15:03 DYE, IODINE CONTAINING OF BREATH CONTRAST ) citalopram (From CELEXA) Allergy Unknown VOMITTING Verified 12/16/24 15:03 duloxetine (Cymbalta) Allergy Unknown unknown Verified 12/16/24 15:03 morphine (MORPHINE) Allergy Unknown PALPITATIONS-PT Verified 12/16/24 15:03 PREFERS NOT TO TAKE tramadol (TRAMADOL) Allergy Unknown VOMITING Verified 12/16/24 15:03 Review of Systems Constitutional: Constitutional: Reports no additional constitutional complaints ENT: Reports system reviewed and no additional complaints, except as documented Cardiovascular: Cardiovascular: Reports no additional cardiovascular complaints PMFSH Past Medical History Attestation statement: The following information was validated with the patient. Medical History Nausea and vomiting Diarrhea Small intestinal bacterial overgrowth (SIBO), hydrogen subtype Upper abdominal pain Jaylyn albicans infection History of thyroiditis Palpitations Left flank pain, chronic Left hip pain Oropharyngeal dysphagia Rectal bleeding Breast lump Nephrolithiasis Vulvovaginitis jaylyn albicans Vulvovaginal candidiasis Myalgia Toe swelling Hives Vulvovaginitis Fibroadenoma of both breasts Acute diarrhea Recurrent nephrolithiasis Vitamin D deficiency Obesity Fibroadenoma Lipoma Fibromyalgia NURIA positive Hx of lipoma Surgical History History of esophagogastroduodenoscopy (EGD) History of wisdom tooth extraction Family History Family History Father Diabetes Heart attack Asthma Maternal Grandmother Diabetes HTN (hypertension) Parkinson disease Breast cancer Mother Diabetes Family history of diabetes mellitus Sister Asthma Maternal Grandfather Parkinson disease Social History Social History Household Members: Children Housing: Condominium Are you a primary director of managed care to a significant other at home: No Do you presently have visiting nurse 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 (handicapper harness racing) Alcohol intake: never Patient Tobacco Use Status: Never used Tobacco Second Hand Smoke Exposure: Yes (Neighbors) Advance Directives: No Advance Directives Information Provided: No Do you have a plan to hurt others: No Plan service: No Current occupational status: disabled Sexual orientation: Straight/Heterosexual Gender identity: Female Physical Exam ED Vital Signs: Vital Signs - 24 hr 12/16/24 15:02 12/16/24 16:18 12/16/24 18:15 Temperature 96.8 F 98.3 F 98.3 F Pulse Rate 79 73 84 Respiratory Rate 18 13 16 Blood Pressure 117/66 121/60 121/71 Pulse Oximetry 99 100 100 Oxygen Delivery Method Room Air Room Air Room Air BMI result Body Mass Index 30.8 she looks well she is not toxic-appearing Const General: cooperative, healthy appearing, comfortable and no acute distress Nutritional Appearance: average body habitus Orientation/consciousness: patient oriented x3 Limitations: no limitations HENMT Head: Yes normal to inspection General nose exam: Normal external nose present Face and sinus: Yes normal facial exam Neck Neck: Yes normal visual inspection Resp Effort & Inspection: normal respiratory effort Auscultation: clear to auscultation bilaterally Cardio Jugular venous distension: no JVD Rate: regular rate Rhythm: regular rhythm GI Inspection: Yes normal to inspection Palpation (GI): not soft, not firm and nontender Auscultation: normal bowel sounds Skin General skin exam: no rashes or lesions noted and elasticity normal Neuro General: patient oriented x3 Course Course Course Narrative: RME, this is a rapid medical exam performed by Leonard Lala please refer to primary provider for complete H&P- 39-year-old female presents for evaluation abdominal pain. Plan for labs, urinalysis and testing. Her pain seem mostly left upper abdomen Reevaluation(s) Reevaluation #1: feels better at this time CT reviewed no appendicitis no colitis normal bowel, possible small hemorrhagic cyst ovary Time: 18:50 Medications Administered Discontinued Medications Generic Name Dose Route Start Last Admin Trade Name Sydney PRN Reason Stop Dose Admin Ondansetron HCl 4 mg 12/16/24 15:48 12/16/24 15:57 Ondansetron Odt 4 Mg Tab.Issac VALDEZU 12/16/24 15:49 4 mg ONCE ONE Administration Medical Decision Making Medical Decision Making [facility] Narrative: patient is here with an episode of abdominal pain we will check labs CBC UA we will add a CT as well 18:50 she is feeling much better asymptomatic vital signs stable abdomen is soft not tender CT reviewed no bowel pathology possible ovarian cysts okay to discharge Differential Diagnosis Differential Diagnoses: The differential diagnosis associated with the presentation includes viral syndrome / fibromyalgia/ small-bowel obstruction/colitis /diverticulitis Admission/Observation Consideration of admission/observation: Escalation of care including admission/observation considered Lab Data [facility] Lab Attestation statement: I reviewed the patient's lab results. 12/16/24 15:20 12/16/24 15:20 Labs: Lab Results 12/16/24 Range/Units 15:20 WBC 9.3 (4.8-10.8) X10*3/uL RBC 5.06 (4.20-5.50) X10*6/uL Hgb 13.3 (12.0-16.0) g/dl Hct 41.5 (37.0-47.0) % MCV 82.0 (80.0-98.0) fL MCH 26.3 L (27.0-33.0) pg MCHC 32.0 (31.0-35.0) g/dl RDW 16.7 H (11.0-16.0) % Plt Count 252 (160-400) X10*3/uL MPV 11.8 (9.4-12.3) fL Immature Gran % (Auto) 0.2 (0.0-0.4) % Neut % (Auto) 65.1 (45-73) % Lymph % (Auto) 26.8 (20-40) % [place] % (Auto) 5.9 (2-11) % Eos % (Auto) 1.5 (0-4) % Baso % (Auto) 0.5 (0-2) % Lymph # (Auto) 2.5 (1.2-4.9) X10*3/uL [place] # (Auto) 0.6 (0.1-1.2) X10*3/uL Eos # (Auto) 0.1 (0.0-0.4) X10*3/uL Baso # (Auto) 0.1 (0.0-0.2) X10*3/uL Abs Immat Gran (auto) 0.02 (0.00-0.03) X10*3/uL Absolute Neuts (auto) 6.0 (2.0-8.3) x10*3/uL Absolute Nucleated RBC 0.000 (0.0-0.012) X10*3/uL Nucleated RBC % (auto) 0.0 (0.0-0.2) /100WBC Sodium 137 (135-145) mmol/L Potassium 3.8 (3.3-5.1) mmol/L Chloride 105 (96-108) mmol/L Carbon Dioxide 25 (22-29) mmol/L Anion Gap 11 L (12-20) BUN 7 L (9-16) mg/dL Creatinine 0.61 (0.5-1.4) mg/dL Estim Creat Clear Calc 106.8 Estimated GFR > 60 Random Glucose 88 (60-115) mg/dL Calcium 9.5 (8.4-10.2) mg/dL Total Bilirubin 0.2 (0.0-1.0) mg/dL AST 18 (5-31) U/L ALT 22 (0-31) U/L Alkaline Phosphatase 51 (39-117) U/L Total Protein 7.8 (6.5-8.0) g/dL Albumin 5.0 (3.5-5.0) g/dL Lipase 23 (8-78) U/L Beta HCG, Quant < 2 mIU/mL Urine Color Yellow Urine Appearance Clear Urine pH 5.5 (5.0-9.0) Ur Specific [place] 1.020 (1.005-1.025) Urine Protein Negative (Neg-Trace) mg/dL Urine Glucose (UA) Negative (Negative) mg/dL Urine Ketones Trace (Negative) mg/dL Urine Blood Negative (Negative) Urine Nitrite Negative (Negative) Ur Leukocyte Esterase Small (1+) H (Negative) Urine RBC 0-2 (0-2) /HPF Urine WBC 0-5 (0-5) /HPF Ur Squamous Epith Cells 0-2 (0-2) /HPF Urine Bacteria None Seen (None Seen) Hyaline Casts 0-2 (0-2) /LPF Independent Interpretation I performed an independent interpretation of an: CT Scan Radiology Impression Discussion of test interpretation with radiology: I have reviewed the radiologist's reading. Radiologist Impression: mass with mixed density. There is fluid density in the upper two thirds and higher density in the lower third suggesting proteinaceous debris. Left adnexa is unremarkable. There is a small amount of free fluid in the cul-de-sac. OSSEOUS STRUCTURES: Unremarkable. CT/CT abdomen pelvis wo IV con IMPRESSION: Probable hemorrhagic right ovarian cyst measuring 3.8 cm long axis. Follow up is not indicated. A few punctate stones are present in both kidneys, no hydronephrosis is present. Fleischner guidelines were followed. Electronically signed by: Bassam Barnes MD 12/16/2024 04:57 PM EDT RP Discharge Plan Discharge Clinical Impression: Abdominal pain Qualifiers: Abdominal location: right lower quadrant Qualified Code(s): R10.31 - Right lower quadrant pain Patient Disposition: Home, Self-Care Instructions: Abdominal Pain (ED) Additional Instructions: CAT scan of the abdomen and pelvis that shows normal bowels, you appendix is normal no blockage no colitis or diverticulitis. Radiology thinks that you have a small ovarian cyst in the right 3.8 cm is is not big you can follow-up with your primary care physician or Dr. Mooney Prescriptions: No Action propranolol 20 mg tablet 20 mg PO BID Qty: 60 5RF dexlansoprazole [Dexilant] 60 mg capsule,biphase delayed releas 60 mg PO DAILY 30 Days Qty: 90 1RF ferrous sulfate [Slow Fe] 142 mg (45 mg iron) Tablet Extended Release 142 mg PO BID lorazepam 1 mg tablet 1 mg PO BEDTIME PRN (Reason: Anxiety) ibuprofen 400 mg tablet 400 mg PO Q4-6H PRN (Reason: Pain) loratadine [Children's Allergy Relief(jermaine)] 5 mg/5 mL solution 10 ml PO DAILY albuterol sulfate [Ventolin HFA] 90 mcg/actuation HFA aerosol inhaler 1 inh inhalation QID fexofenadine 180 mg tablet 180 mg PO DAILY Creon 36,000-114,000- 180,000 unit capsule,delayed release(DR/EC) 2 cap PO BID Qty: 120 6RF Rx Instructions: administer with meals and/or snacks simethicone 180 mg capsule 180 mg PO QID 30 Days Qty: 120 6RF Rx Instructions: after meals famotidine 40 mg tablet 40 mg PO BEDTIME Qty: 90 2RF metoclopramide HCl [Reglan] 5 mg tablet 5 mg PO QIDACHS Qty: 120 6RF Rx Instructions: provider aware of possible interaction and is monitoring pregabalin 75 mg capsule 75 mg PO BID dicyclomine 10 mg capsule 10 mg PO TID PRN (Reason: abdominal pain) Qty: 90 6RF nabumetone 750 mg tablet 750 mg PO BID ferrous sulfate 300 mg (60 mg iron)/5 mL liquid 300 mg PO BID Qty: 500 0RF cholecalciferol (vitamin D3) 25 mcg (1,000 unit) tablet 25 mcg PO DAILY azelastine 137 mcg (0.1 %) spray,non-aerosol 1 spray intranasal BID PRN (Reason: allergies) Referrals: Petra Wiley FNP [Primary Care Provider, Family Practice] Print Language: Bahamian
[2024-12-16 15:51] LABS: MANUAL DIFF FLAG NO
[2024-12-16 15:52] LABS: Appearance Urine Clear; Glucose Urine UA Negative (Negative); Hematocrit 41.5 % (37.0-47.0); Hemoglobin 13.3 g/dl (12.0-16.0); Imm Gran Abs Auto 0.02 X10*3/uL (0.00-0.03); Imm Gran Pct Auto 0.2 % (0.0-0.4); Lymphocytes Absolute Auto 2.5 X10*3/uL (1.2-4.9); Mean Corpuscular HGB Conc 32.0 g/dl (31.0-35.0); Mean Corpuscular Hemoglobin 26.3 pg (27.0-33.0); Mean Corpuscular Volume 82.0 fL (80.0-98.0); NRBC Abs Auto 0.000 X10*3/uL (0.0-0.012); NRBC Pct Auto 0.0 /100WBC (0.0-0.2); PH 5.5 (5.0-9.0); Platelet Count 252 X10*3/uL (160-400); Red Blood Count 5.06 X10*6/uL (4.20-5.50); Specific Gravity - Urine 1.020 (1.005-1.025); UMIC TRIGGER UACC YES; White Blood Count 9.3 X10*3/uL (4.8-10.8)
[2024-12-16 16:06] LABS: UACC Culture Trigger YES
[2024-12-16 16:12] LABS: Alanine Aminotransferase 22 U/L (0-31); Albumin Level 5.0 g/dL (3.5-5.0); Alkaline Phosphatase 51 U/L (39-117); Anion Gap 11 (12-20); Aspartate Amino Transferase 18 U/L (5-31); Blood Urea Nitrogen 7 mg/dL (9-16); Calcium 9.5 mg/dL (8.4-10.2); Carbon Dioxide 25 mmol/L (22-29); Chloride 105 mmol/L (96-108); Creatinine Clr Calc Pharmacy 106.8; Estimated Glomerular Filt Rate > 60; Lipase 23 U/L (8-78); Potassium 3.8 mmol/L (3.3-5.1); Sodium 137 mmol/L (135-145); Total Protein 7.8 g/dL (6.5-8.0)
[2024-12-16 16:18] VITALS: BP 121/60; PULSE 73; RESP 13; TEMP 36.8; O2SAT 100
[2024-12-16 18:15] VITALS: BP 121/71; PULSE 84; RESP 16; TEMP 36.8; O2SAT 100
[2024-12-16 19:20] VITALS: BP 125/68; PULSE 78; RESP 17; TEMP 37.1; O2SAT 100
== END 2024-12-16 19:21 | disposition home or self-care (01) ==
PROVIDERS: Physician Assistant; Emergency Provider Emergency Medicine; PCP Registered Nurse
DX: R10.31 Right lower quadrant pain (principal)
CPT/HCPCS: 36415; 74176; 80053; 81001; 83690; 84702; 85025; 87086; 99284

== ENCOUNTER → 2024-12-16 15:48 | Outpatient (BNV) | payer MEDICAID, SELFPAY | PROVIDERS: Emergency Provider Emergency Medicine; PCP Registered Nurse; Visit Provider Radiology Diagnostic Radiology | DX: R10.31 Right lower quadrant pain (principal) | CPT/HCPCS: 74176 ==

== ENCOUNTER 2025-01-08 04:09 | Emergency (ER) | payer MEDICAID, SELFPAY ==
--- NOTE | ~2025-01-08 | CT_ITS ---
EXAMINATION: CT ABDOMEN PELVIS WITH IV CONTRAST HISTORY: severe lower abd TTP, guarding. COMPARISON: Comparison is made with the prior examination dated 12/16/2024. TECHNIQUE: CT scan of the abdomen and pelvis was performed following administration of 85 mL Omnipaque 350 using standard departmental protocol. Coronal and sagittal reformatted images were generated and reviewed. Oral contrast material was not administered at the request of the referring physician. This CT exam was performed with one or more of the following dose reduction techniques: automated exposure control, adjustment of the mA and/or kV according to patient size, use of iterative reconstruction technique. DLP: 543 mGy-cm FINDINGS: LOWER CHEST: The visualized lung bases are clear. There is no pleural effusion. CARDIOVASCULATURE: The heart is normal in size. There is no pericardial effusion. LIVER: The liver is normal in size and contour. Again seen is a 10 mm probable cyst in the right lobe. The hepatic and portal veins are patent. GALLBLADDER / BILE DUCTS: The gallbladder is unremarkable. There is no intra or extrahepatic biliary ductal dilatation. SPLEEN: The spleen is normal in size. No focal splenic lesion is identified. PANCREAS: The pancreas is unremarkable in appearance. ADRENAL GLANDS: Within normal limits. KIDNEYS/RETROPERITONEUM: The kidneys demonstrate lobulated contours. No renal calculi are identified. There is no hydronephrosis. No renal masses are identified. LYMPH NODES: No abdominal or pelvic lymphadenopathy. VASCULATURE: The abdominal aorta is normal in caliber. MESENTERY/PERITONEUM: There is a small amount of free fluid in the cul-de-sac. No masses. There is no free intraperitoneal gas. STOMACH: The stomach is collapsed, limiting evaluation. SMALL BOWEL: The small bowel is normal in caliber. COLON: The colon is unremarkable. APPENDIX: A tiny appendicolith is seen at the base of the appendix. The appendix is mildly prominent, but demonstrates intraluminal gas without periappendiceal inflammatory stranding to suggest acute appendicitis. URINARY BLADDER/PELVIC ORGANS: The urinary bladder is unremarkable. And IUD is noted in the endometrial cavity of the uterus. There is an involuting 1.4 cm right ovarian cyst versus follicle. The left ovary is unremarkable. BONES / SOFT TISSUES: No suspicious bony or soft tissue abnormalities. CT/CT abdomen pelvis w IV con IMPRESSION: 1. Mildly prominent appendix demonstrating an appendicolith, without periappendiceal inflammatory stranding. If the patient's symptoms do not improve, a follow-up study may be helpful. 2. Involuting 1.4 cm right ovarian cyst versus follicle. Small amount of free fluid in the cul-de-sac. Electronically signed by: Corky Priest MD 01/08/2025 09:53 AM EDT
--- NOTE | ~2025-01-08 | US_ITS ---
EXAMINATION: US PELVIS CLINICAL INFORMATION: Lower abdominal pain/tenderness. Probable hemorrhagic right ovarian cyst reported on prior CT dated December 16, 2024. COMPARISON: November 04, 2024. TECHNIQUE: Ultrasound of the pelvis is performed using both transabdominal and transvaginal transducers along with Doppler. Transvaginal imaging is performed due to inadequate visualization transabdominally. FINDINGS: Uterus: The uterus is anteverted and measures 8 x 5 x 5 cm. Volume: 99 cc. The double wall endometrial thickness is 8 mm. There is an intrauterine contraceptive device extending from the body to the endocervical canal. Heterogeneous appearance of the uterus demonstrated a 2.3 and a 1.2 cm heterogeneous soft tissue lesion centered within the myometrium of the fundus. Multiple Nabothian cyst, cervix. Adnexa: There is normal color flow on Doppler examination of the right ovary.. The left ovary is not identified by the technologist. Right ovary measures 4 x 2 x 3 cm. Volume: 14 cc. There is a 2 cm heterogeneous predominantly hypoechoic/anechoic abnormality with internal echoes. There is free fluid in the cul-de-sac, small to moderate volume. US/US pelvic and transvaginal IMPRESSION: 2 cm complex cystic lesion right ovary may correspond to the hemorrhagic appearance on recent CT. No right ovarian torsion. Low position, intrauterine contraceptive device. Uterine fibroids. Small to moderate amount of free fluid in the cul-de-sac. Recent ruptured cyst cannot be excluded. Electronically signed by: Raheem Gandhi MD 01/08/2025 08:34 AM EDT
[2025-01-08 04:18] VITALS: BP 123/67; PULSE 64; RESP 20; TEMP 36.4; O2SAT 100; BMI 30.9
--- NOTE | 2025-01-08 05:26 | ED.ABDPAIN ---
HPI - Abdominal Pain General Chief Complaint: Abdominal Pain Stated Complaint: abd pain Time Seen by Provider: 01/08/25 04:45 History of Present Illness ED Provider: Mateo sEcobedo MD HPI narrative: 39-year-old female recent diagnosis of hemorrhagic cyst early December on CT now reporting discomfort with urination and severe lower pelvic pain no vaginal bleeding. Patient has also previously been prescribed propranolol by cardiology here for what she describes nonspecific sinus tachycardia currently she is feeling similar symptoms with rapid palpitations some atypical nonexertional chest discomfort. No difficulty breathing denies fever. Related Data Home Medications ?Medication ?Instructions ?Recorded ?Confirmed lorazepam 1 mg tablet 1 mg PO BEDTIME PRN Anxiety 03/29/20 10/09/24 ibuprofen 400 mg tablet 400 mg PO Q4-6H PRN Pain 11/20/21 10/09/24 albuterol sulfate 90 mcg/actuation 1 inh inhalation QID 09/19/22 10/09/24 aerosol inhaler (Ventolin HFA) loratadine 5 mg/5 mL oral solution 10 ml PO DAILY 09/19/22 10/09/24 (Children's Allergy Relief (loratadine)) pregabalin 75 mg capsule 75 mg PO BID 11/20/23 10/09/24 nabumetone 750 mg tablet 750 mg PO BID 03/25/24 10/09/24 fexofenadine 180 mg tablet 180 mg PO DAILY 04/07/24 10/09/24 azelastine 137 mcg (0.1 %) nasal 1 spray intranasal BID PRN 04/17/24 10/09/24 spray allergies cholecalciferol (vitamin D3) 25 25 mcg PO DAILY 04/17/24 10/09/24 mcg (1,000 unit) tablet ferrous sulfate 142 mg (45 mg 142 mg PO BID 10/09/24 10/09/24 iron) tablet,extended release Previous Rx's ?Medication ?Instructions ?Recorded dicyclomine 10 mg capsule 10 mg PO TID PRN abdominal pain 01/15/24 #90 caps propranolol 20 mg tablet 20 mg PO BID for palpitations #60 02/21/24 tabs ferrous sulfate 300 mg (60 mg 300 mg (5 mL) PO BID #500 mL 03/25/24 iron)/5 mL oral liquid famotidine 40 mg tablet 40 mg PO BEDTIME #90 tabs 10/22/24 [id number] 2 cap PO BID #120 caps 04/07/24 36,000-114,000-180,000 unit capsule,delay rel (Creon) metoclopramide HCl 5 mg tablet 5 mg PO QIDACHS #120 tabs 04/07/24 (Reglan) simethicone 180 mg capsule 180 mg PO QID 30 days #120 caps 04/07/24 dexlansoprazole 60 mg 60 mg PO DAILY 30 days #90 caps 07/13/24 capsule,biphase delayed release (Dexilant) acetaminophen 500 mg tablet 1,000 mg (2 x 500 mg) PO Q6H PRN 01/08/25 (Tylenol Extra Strength) fever or pain #20 tabs docusate sodium 100 mg capsule 100 mg PO BID 30 days #60 caps 01/08/25 (Colace) ondansetron 4 mg disintegrating 4 mg PO Q6-8H PRN nausea and 01/08/25 tablet vomiting #14 tabs oxycodone 5 mg tablet 5 mg PO Q4H PRN pain #14 tabs 01/08/25 sennosides 17.2 mg tablet (Senokot 17.2 mg PO BID PRN constipation 01/08/25 Extra Strength) #20 tabs Allergies Allergy/AdvReac Type Severity Reaction Status Date / Time Iodinated Contrast Media (IV Allergy Intermediate SHORTNESS Verified 01/08/25 04:20 DYE, IODINE CONTAINING OF BREATH CONTRAST ) citalopram (From CELEXA) Allergy Unknown VOMITTING Verified 01/08/25 04:20 duloxetine (Cymbalta) Allergy Unknown unknown Verified 01/08/25 04:20 morphine (MORPHINE) Allergy Unknown PALPITATIONS-PT Verified 01/08/25 04:20 PREFERS NOT TO TAKE tramadol (TRAMADOL) Allergy Unknown VOMITING Verified 01/08/25 04:20 [facility] Past Medical History Medical History Nausea and vomiting Diarrhea Small intestinal bacterial overgrowth (SIBO), hydrogen subtype Upper abdominal pain Jaylyn albicans infection History of thyroiditis Palpitations Left flank pain, chronic Left hip pain Oropharyngeal dysphagia Rectal bleeding Breast lump Nephrolithiasis Vulvovaginitis jaylyn albicans Vulvovaginal candidiasis Myalgia Toe swelling Hives Vulvovaginitis Fibroadenoma of both breasts Acute diarrhea Recurrent nephrolithiasis Vitamin D deficiency Obesity Fibroadenoma Lipoma Fibromyalgia NURIA positive Hx of lipoma Surgical History History of esophagogastroduodenoscopy (EGD) History of wisdom tooth extraction Family History Family History Father Diabetes Heart attack Asthma Maternal Grandmother Diabetes HTN (hypertension) Parkinson disease Breast cancer Mother Diabetes Family history of diabetes mellitus Sister Asthma Maternal Grandfather Parkinson disease Social History Social History Household Members: Children Housing: Condominium Are you a primary residential caregiver to a significant other at home: No 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 Head: Atraumatic Eyes: Anicteric, Normal conjunctiva. ENT: Moist mucosa, no pallor. ? Neck: Supple. Skin: ?No observable rash or bruising on exposed or examined skin Respiratory: Breathing comfortably, No distress.Clear to auscultation bilaterally, symmetric chest expansion, No wheeze, rales, ronchi. Cardiovascular: Regular rate and rhythm. No murmurs or rub. Well perfused periphery, warm extremities. No edema. ? Abdominal: Moderate bilateral lower quadrant tenderness Soft, no objective distension. No palpable masses or obvious organomegaly. ?No guarding, no rebound tenderness or other peritoneal findings. : No flank tenderness. Neuro: Alert. Gross movement of all extremities intact. ? Psych: Calm. Cooperative. MSK: No grossly visible deformity. Vital signs: See flowsheet Vital Signs: Vital Signs - 24 hr 01/08/25 04:18 01/08/25 07:02 01/08/25 08:00 Temperature 97.6 F 98.8 F 97.2 F Pulse Rate 64 80 64 Respiratory Rate 20 16 16 Blood Pressure 123/67 127/70 103/62 Pulse Oximetry 100 99 100 Oxygen Delivery Method Room Air Room Air Room Air 01/08/25 09:45 01/08/25 12:51 01/08/25 14:15 Temperature 98.3 F 98.2 F 98.2 F Pulse Rate 75 99 99 Respiratory Rate 16 14 14 Blood Pressure 112/62 127/80 127/80 Pulse Oximetry 99 98 98 Oxygen Delivery Method Room Air Room Air Room Air BMI result Body Mass Index 30.9 Procedures Procedure Narrative Procedure Narrative: EMERGENCY ULTRASOUND INTERPRETATION-Limited Retroperitoneal (Renal) [This study was ordered, performed, and interpreted by myself. The study reveals: Impression: NO EVIDENCE OF UROLOGIC OBSTRUCTION] [Indication: FLANK PAIN Bladder: ANECHOIC URINE Right Kidney: NO HYDRONEPHROSIS Left Kidney: NO HYDRONEPHROSIS Performed by: Mateo Escobedo MD Images were stored CPT: 67298] Course Course Course Narrative: 01/08/25 13:00 hours, Titi Smith MD I assumed care of this patient from my colleague, Dr. Mateo Escobedo at 07:00 hours. The patient is a 39-year-old female who presents emergency department for evaluation of lower abdominal pain. She states she has had multiple episodes since 12/16/2024. She states that on Saturday01/05/2025 she had an episode of pain. She states that prior to coming to the emergency department she had another episode of abdominal pain. She points to her umbilical area and lower abdomen when asked to localize the pain. She states that the pain is a constant, pressure-like pain that radiates down her right leg. Patient has associated nausea, vomiting, sweats. She states that she has also been very constipated and it is hard to move her bowels. My independent interpretation of the patient's laboratory evaluation is as follows: [place] [address] otherwise was unremarkable. CMP was normal. Troponin was below detectable limits. Quantitative beta-hCG was below detectable limits. Urinalysis was negative. CT scan of the abdomen pelvis revealed a mildly prominent appendix with a small appendiceal with normal intraluminal gas without periappendiceal inflammation/stranding to suggest acute appendicitis. Pelvic ultrasound revealed a 2 cm complex lesion to the right ovary consistent with a hemorrhagic cyst seen on the CT scan with no right ovarian torsion. There was a small to moderate amount of free fluid in the cul-de-sac At this time I do not have a clear etiology for the patient's pain and I did discuss this with her. Patient was given Dilaudid 0.5 mg IV. The patient will be discharged home with prescriptions for oxycodone, Tylenol, Zofran, Colace and Senokot. Patient was given printed and verbal instructions and discharged home. Medical Decision Making Medical Decision Making [facility] Narrative: Medical Decision Makin-year-old female with recent ovarian cyst identified on CT now with lower abdominal pain more severe. Also complaining of atypical chest pain. Ultrasound of the kidneys does not reveal any obstructive uropathy. The patient has severe tenderness in the lower abdomen given the recent finding of a 4 cm cyst patient should get a transvaginal ultrasound to exclude torsion although it is less likely she may also have ruptured though I did not see any free fluid in the bladder ultrasound transabdominally. Patient's chest discomfort is very atypical and more likely associated with a chronic recurrent tachycardia and/or anxiety. Subxiphoid cardiac view was grossly normal with no effusion. Preliminary Favored Differential Diagnosis: Ovarian torsion, ovarian cysts, TOA less likely given lack of recent intercourse or vaginal discharge, dysmenorrhea, less likely appendicitis or enteritis or IBS among additional considered etiologies Testing Interpreted Independently: See my point of care ultrasound report Radiology or Lab testing Results Reviewed: Not Applicable Consults: Not Applicable Independent Historians/External Chart Reviews: Not Applicable Social Determinants of Health Impacting MDM/Planning: Not Applicable Lab Data MDM Lab Attestation statement: I reviewed the patient's lab results. 01/08/25 05:54 01/08/25 05:54 Labs: Lab Results 01/08/25 01/08/25 Range/Units 05:54 07:03 WBC 12.4 H (4.8-10.8) X10*3/uL RBC 4.99 (4.20-5.50) X10*6/uL Hgb 13.2 (12.0-16.0) g/dl Hct 41.4 (37.0-47.0) % MCV 83.0 (80.0-98.0) fL MCH 26.5 L (27.0-33.0) pg MCHC 31.9 (31.0-35.0) g/dl RDW 15.3 (11.0-16.0) % Plt Count 271 (160-400) X10*3/uL MPV 11.2 (9.4-12.3) fL Immature Gran % (Auto) 1.1 H (0.0-0.4) % Neut % (Auto) 77.5 H (45-73) % Lymph % (Auto) 15.0 L (20-40) % [place] % (Auto) 5.2 (2-11) % Eos % (Auto) 0.8 (0-4) % Baso % (Auto) 0.4 (0-2) % Lymph # (Auto) 1.9 (1.2-4.9) X10*3/uL [place] # (Auto) 0.6 (0.1-1.2) X10*3/uL Eos # (Auto) 0.1 (0.0-0.4) X10*3/uL Baso # (Auto) 0.1 (0.0-0.2) X10*3/uL Abs Immat Gran (auto) 0.14 H (0.00-0.03) X10*3/uL Absolute Neuts (auto) 9.6 H (2.0-8.3) x10*3/uL Absolute Nucleated RBC 0.000 (0.0-0.012) X10*3/uL Nucleated RBC % (auto) 0.0 (0.0-0.2) /100WBC Sodium 140 (135-145) mmol/L Potassium 3.9 (3.3-5.1) mmol/L Chloride 109 H (96-108) mmol/L Carbon Dioxide 24 (22-29) mmol/L Anion Gap 11 L (12-20) BUN 8 L (9-16) mg/dL Creatinine 0.61 (0.5-1.4) mg/dL Estim Creat Clear Calc 111.6 Estimated GFR > 60 Random Glucose 111 (60-115) mg/dL Calcium 9.2 (8.4-10.2) mg/dL Total Bilirubin 0.2 (0.0-1.0) mg/dL AST 18 (5-31) U/L ALT 19 (0-31) U/L Alkaline Phosphatase 68 (39-117) U/L Troponin I High Sens < 2.7 (<3.5-17.0) ng/L Total Protein 7.5 (6.5-8.0) g/dL Albumin 4.6 (3.5-5.0) g/dL Lipase 28 (8-78) U/L Beta HCG, Quant < 2 mIU/mL Urine Color Yellow Urine Appearance Clear Urine pH 5.5 (5.0-9.0) Ur Specific Rush 1.020 (1.005-1.025) Urine Protein Negative (Neg-Trace) mg/dL Urine Glucose (UA) Negative (Negative) mg/dL Urine Ketones Negative (Negative) mg/dL Urine Blood Negative (Negative) Urine Nitrite Negative (Negative) Ur Leukocyte Esterase Negative (Negative) Radiology Impression Discussion of test interpretation with radiology: I have reviewed the radiologist's reading. Radiologist Impression: CT abdomen pelvis w IV con IMPRESSION: 1. Mildly prominent appendix demonstrating an appendicolith, without periappendiceal inflammatory stranding. If the patient's symptoms do not improve, a follow-up study may be helpful. 2. Involuting 1.4 cm right ovarian cyst versus follicle. Small amount of free fluid in the cul-de-sac. Electronically signed by: Corky Priest MD 01/08/2025 09:53 AM EDT US pelvic and transvaginal IMPRESSION: 2 cm complex cystic lesion right ovary may correspond to the hemorrhagic appearance on recent CT. No right ovarian torsion. Low position, intrauterine contraceptive device. Uterine fibroids. Small to moderate amount of free fluid in the cul-de-sac. Recent ruptured cyst cannot be excluded. Electronically signed by: Raheem Gandhi MD 01/08/2025 08:34 AM Prescription Management I considered prescription management with: Pain Medication and Other (Antiemetic, laxative) Medications Administered Discontinued Medications Generic Name Dose Route Start Last Admin Trade Name Sydney PRN Reason Stop Dose Admin Alprazolam 0.25 mg 01/08/25 05:30 01/08/25 05:45 Alprazolam 0.25 Mg Tablet PO 01/08/25 05:31 0.25 mg ONCE ONE Administration Diphenhydramine HCl 50 mg 01/08/25 06:20 01/08/25 08:07 Diphenhydramine Hcl 50 Mg/Ml Vial IVPUSH 01/08/25 06:21 50 mg ONCE ONE Administration Hydromorphone HCl 0.5 mg 01/08/25 12:59 01/08/25 13:08 Hydromorphone Hcl 0.5 Mg/0.5 Ml Syringe IVPUSH 07/25/25 13:00 0.5 mg ONCE ONE Administration Protocol Hydroxyzine HCl 25 mg 01/08/25 05:30 01/08/25 05:45 Hydroxyzine Hcl 25 Mg Tablet PO 01/08/25 05:31 25 mg ONCE ONE Administration Ibuprofen 600 mg 01/08/25 05:29 01/08/25 05:45 Ibuprofen 600 Mg Tablet PO 01/08/25 05:30 600 mg ONCE ONE Administration Iohexol 100 ml 01/08/25 09:36 01/08/25 09:37 Iohexol 350 Mg/Ml 100 Ml Infus..Btl IV 01/08/25 09:37 85 ml ONCE ONE Administration Methylprednisolone Sodium Succinate 200 mg 01/08/25 06:20 01/08/25 06:45 Methylprednisolone Sod Succ 125 Mg/2 Ml Vial IVPUSH 01/08/25 06:21 200 mg ONCE ONE Administration Discharge Plan Discharge Clinical Impression: Constipation Abdominal pain Qualifiers: Abdominal location: lower abdomen, unspecified Qualified Code(s): R10.30 - Lower abdominal pain, unspecified Patient Disposition: Home, Self-Care Instructions: Constipation (ED), Abdominal Pain (ED) Additional Instructions: Your blood work was unremarkable. The CT scan of the abdomen pelvis revealed a normal-appearing appendix but you do have a small stone in your appendix but this has not causing your pain. You do have a right ovarian cyst but no twisting of the ovary around the cyst. At this time I do not have a clear cause for your pain. Take Tylenol (acetaminophen) 500 mg pills, 2 pills every 4-6 hours as needed for pain. For pain not relieved by ibuprofen or Tylenol take oxycodone 5 mg pills, 1 pill every 4 hours as needed for pain. Do not drive or work while taking this medication since they can cause sleepiness. Oxycodone is a narcotic medication that can be addicting. If you are concerned about addiction you can ask the pharmacist for less pills or do not get this prescription filled. Take Zofran ODT 4 mg pills, 1 pill dissolved in your mouth every 8 hours as needed for nausea and vomiting. Take extra-strength Senokot 1 pills twice a day for 4 days, this has a laxative and should help you move your bowels. Take Colace 100 mg pills, 1 pill every 12 hours for 2 weeks. This has a stool softener. Increase your fluid intake. Continue taking your other medications as prescribed by your providers Follow-up with your doctor in 2 days. Please return to the emergency department if your symptoms get worse or if you develop any symptoms that are concerning to you. Prescriptions: New docusate sodium [Colace] 100 mg capsule 100 mg PO BID 30 Days Qty: 60 0RF ondansetron 4 mg tablet,disintegrating 4 mg PO Q6-8H PRN (Reason: nausea and vomiting) Qty: 14 0RF oxycodone 5 mg tablet 5 mg PO Q4H PRN (Reason: pain) Qty: 14 0RF Rx Instructions: Patient may request partial fill; Partial Fill upon patient request. Senokot Extra Strength 17.2 mg tablet 17.2 mg PO BID PRN (Reason: constipation) Qty: 20 0RF acetaminophen [Tylenol Extra Strength] 500 mg tablet 1,000 mg PO Q6H PRN (Reason: fever or pain) Qty: 20 0RF No Action propranolol 20 mg tablet 20 mg PO BID Qty: 60 5RF dexlansoprazole [Dexilant] 60 mg capsule,biphase delayed releas 60 mg PO DAILY 30 Days Qty: 90 1RF ferrous sulfate [Slow Fe] 142 mg (45 mg iron) Tablet Extended Release 142 mg PO BID lorazepam 1 mg tablet 1 mg PO BEDTIME PRN (Reason: Anxiety) ibuprofen 400 mg tablet 400 mg PO Q4-6H PRN (Reason: Pain) loratadine [Children's Allergy Relief(jermaine)] 5 mg/5 mL solution 10 ml PO DAILY albuterol sulfate [Ventolin HFA] 90 mcg/actuation HFA aerosol inhaler 1 inh inhalation QID fexofenadine 180 mg tablet 180 mg PO DAILY Creon 36,000-114,000- 180,000 unit capsule,delayed release(DR/EC) 2 cap PO BID Qty: 120 6RF Rx Instructions: administer with meals and/or snacks simethicone 180 mg capsule 180 mg PO QID 30 Days Qty: 120 6RF Rx Instructions: after meals famotidine 40 mg tablet 40 mg PO BEDTIME Qty: 90 2RF metoclopramide HCl [Reglan] 5 mg tablet 5 mg PO QIDACHS Qty: 120 6RF Rx Instructions: provider aware of possible interaction and is monitoring pregabalin 75 mg capsule 75 mg PO BID dicyclomine 10 mg capsule 10 mg PO TID PRN (Reason: abdominal pain) Qty: 90 6RF nabumetone 750 mg tablet 750 mg PO BID ferrous sulfate 300 mg (60 mg iron)/5 mL liquid 300 mg PO BID Qty: 500 0RF cholecalciferol (vitamin D3) 25 mcg (1,000 unit) tablet 25 mcg PO DAILY azelastine 137 mcg (0.1 %) spray,non-aerosol 1 spray intranasal BID PRN (Reason: allergies) Interventions: ED Discharge Assessment Last Done: 01/08/25 14:15 Discharge Date/Time: 01/08/25 14:16 Print Language: Sinhala
[2025-01-08 06:02] LABS: MANUAL DIFF FLAG NO
[2025-01-08 06:14] LABS: Hematocrit 41.4 % (37.0-47.0); Hemoglobin 13.2 g/dl (12.0-16.0); Imm Gran Abs Auto 0.14 X10*3/uL (0.00-0.03); Imm Gran Pct Auto 1.1 % (0.0-0.4); Lymphocytes Absolute Auto 1.9 X10*3/uL (1.2-4.9); Mean Corpuscular HGB Conc 31.9 g/dl (31.0-35.0); Mean Corpuscular Hemoglobin 26.5 pg (27.0-33.0); Mean Corpuscular Volume 83.0 fL (80.0-98.0); NRBC Abs Auto 0.000 X10*3/uL (0.0-0.012); NRBC Pct Auto 0.0 /100WBC (0.0-0.2); Platelet Count 271 X10*3/uL (160-400); Red Blood Count 4.99 X10*6/uL (4.20-5.50); White Blood Count 12.4 X10*3/uL (4.8-10.8)
[2025-01-08 06:20] LABS: Troponin-I High Sensitivity < 2.7 ng/L (<3.5-17.0)
[2025-01-08 06:23] LABS: Alanine Aminotransferase 19 U/L (0-31); Albumin Level 4.6 g/dL (3.5-5.0); Alkaline Phosphatase 68 U/L (39-117); Anion Gap 11 (12-20); Aspartate Amino Transferase 18 U/L (5-31); Blood Urea Nitrogen 8 mg/dL (9-16); Calcium 9.2 mg/dL (8.4-10.2); Carbon Dioxide 24 mmol/L (22-29); Chloride 109 mmol/L (96-108); Creatinine Clr Calc Pharmacy 111.6; Estimated Glomerular Filt Rate > 60; Lipase 28 U/L (8-78); Potassium 3.9 mmol/L (3.3-5.1); Sodium 140 mmol/L (135-145); Total Protein 7.5 g/dL (6.5-8.0)
[2025-01-08 07:02] VITALS: BP 127/70; PULSE 80; RESP 16; TEMP 37.1; O2SAT 99
[2025-01-08 07:33] LABS: Appearance Urine Clear; Glucose Urine UA Negative (Negative); PH 5.5 (5.0-9.0); Specific Gravity - Urine 1.020 (1.005-1.025)
[2025-01-08 08:00] VITALS: BP 103/62; PULSE 64; RESP 16; TEMP 36.2; O2SAT 100
[2025-01-08] MEDS: iohexoL 350 MG/ML 100 ML INFUS..BTL IV (09:37)
[2025-01-08 09:45] VITALS: BP 112/62; PULSE 75; RESP 16; TEMP 36.8; O2SAT 99
--- NOTE | 2025-01-08 10:42 | PC.NURSE ---
Pt tolerated CT well. has been resting quietly since. Has reported that passing gas is painful repeatedly
[2025-01-08 12:51] VITALS: BP 127/80; PULSE 99; RESP 14; TEMP 36.8; O2SAT 98
[2025-01-08 14:15] VITALS: BP 127/80; PULSE 99; RESP 14; TEMP 36.8; O2SAT 98
== END 2025-01-08 14:16 | disposition home or self-care (01) ==
PROVIDERS: Emergency Medicine; Emergency Provider Emergency Medicine Emergency Medical Services; PCP Registered Nurse
DX: K59.00 Constipation, unspecified (principal); R10.30 Lower abdominal pain, unspecified; R10.2 Pelvic and perineal pain; R30.0 Dysuria; R00.0 Tachycardia, unspecified; M54.50 Low back pain, unspecified; Z79.899 Other long term (current) drug therapy
CPT/HCPCS: 36415; 74177; 76775; 76830; 76856; 80053; 81003; 83690; 84484; 84702; 85025; 96374; 96375; 99284; J1171; J1200; J2919; Q9967

== ENCOUNTER → 2025-01-08 06:07 | Outpatient (BNV) | payer MEDICAID, SELFPAY | PROVIDERS: Emergency Provider Emergency Medicine Emergency Medical Services; PCP Registered Nurse; Visit Provider Radiology Diagnostic Radiology | DX: R10.9 Unspecified abdominal pain (principal) | CPT/HCPCS: 74177; 76856 ==

== ENCOUNTER 2025-01-12 11:00 | Outpatient (RCR) | payer MEDICAID, SELFPAY | END 2025-01-25 10:34 | disposition home or self-care (01) | LOC: HO.PT 11:00 | PROVIDERS: PCP Registered Nurse; Visit Provider Internal Medicine Rheumatology | DX: S83.103 Unspecified subluxation of unspecified knee (principal) | CPT/HCPCS: 97110; 97140; 97162 ==

== ENCOUNTER 2025-01-13 15:31 | Outpatient (AMB) | payer MEDICAID, SELFPAY ==
--- NOTE | 2025-01-13 15:36 | A.OFFVIS_ITS ---
Vital Signs 01/13/25 15:52 Height 5 ft Weight 158 lb BMI 30.9 BP 124/78 Intake Visit Reasons: annual Office Machines Sales Representative Required: Yes Office Machines Sales Representative Language: Apprentice Lineman Third Step Services: Office Machines Sales Representative Present (in person) Office Machines Sales Representative Name: BRANDI Shaffer Information Interpreted: non-clinical & clinical Loan Operations Manager: Loan Operations Manager Present (BRANDI Shaffer) Accompanied by: Self / Same As Patient Allergies Iodinated Contrast Media (IV DYE, IODINE CONTAINING CONTRAST ) Allergy (Intermediate, Verified 01/13/25 15:52) SHORTNESS OF BREATH citalopram (From CELEXA) Allergy (Unknown, Verified 01/13/25 15:52) VOMITTING duloxetine (Cymbalta) Allergy (Unknown, Verified 01/13/25 15:52) unknown morphine (MORPHINE) Allergy (Unknown, Verified 01/13/25 15:52) PALPITATIONS-PT PREFERS NOT TO TAKE tramadol (TRAMADOL) Allergy (Unknown, Verified 01/13/25 15:52) VOMITING Is last menstrual period known: Yes Last menstrual period: 12/22/24 Post menopausal: No Patient : No HPI Comments Details: Presenting for annual exam. Complaining of pelvic pain around the right no associated fever or chills no vaginal bleeding. The patient went to the emergency room on 01/04 with the following workup 01/08/25 emergency room visit workup included the following CT scan of abdomen and pelvis IMPRESSION: 1. Mildly prominent appendix demonstrating an appendicolith, without periappendiceal inflammatory stranding. If the patient's symptoms do not improve, a follow-up study may be helpful. 2. Involuting 1.4 cm right ovarian cyst versus follicle. Small amount of free fluid in the cul-de-sac. Pelvic ultrasound: MPRESSION: 2 cm complex cystic lesion right ovary may correspond to the hemorrhagic appearance on recent CT. No right ovarian torsion. Low position, intrauterine contraceptive device. Uterine fibroids. Small to moderate amount of free fluid in the cul-de-sac. Recent ruptured cyst cannot be excluded H&H within normal, hCG less than 2, UA U negative Last Pap/HPV was unsatisfactory, HPV negative in 10/09 [facility] Medical History (Updated 01/13/25 @ 16:37 by Vicente Mooney MD) Vulvovaginitis Nausea and vomiting Diarrhea Small intestinal bacterial overgrowth (SIBO), hydrogen subtype Upper abdominal pain Jaylyn albicans infection History of thyroiditis Palpitations Left flank pain, chronic Left hip pain Oropharyngeal dysphagia Rectal bleeding Breast lump Nephrolithiasis Vulvovaginitis jaylyn albicans Vulvovaginal candidiasis Myalgia Toe swelling Hives Fibroadenoma of both breasts Acute diarrhea Recurrent nephrolithiasis Vitamin D deficiency Obesity Fibroadenoma Lipoma Fibromyalgia NURIA positive Hx of lipoma Surgical History History of esophagogastroduodenoscopy (EGD) History of wisdom tooth extraction Family History Father Diabetes Heart attack Asthma Maternal Grandmother Diabetes HTN (hypertension) Parkinson disease Breast cancer Mother Diabetes Family history of diabetes mellitus Sister Asthma Maternal Grandfather Parkinson disease Social History Household Members: Children Housing: [facility] Are you a primary health care recruiter to a significant other at home: No Do you presently have visiting nurse 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 (women's garment fitter) Alcohol intake: never Patient Tobacco Use Status: Never used Tobacco Second Hand Smoke Exposure: Yes (Neighbors) service: No Current occupational status: disabled Sexual orientation: Straight/Heterosexual Gender identity: Female Female Reproductive History Menstrual Age of Menarche: 13 Duration of menses: >10 days (Stopped on the ) Date of last menstrual period: 12/22/24 control method: progestin IUCD (Mirena ) Total pregnancies: 1 Full term: 1 Date of last pap smear: 10/06/24 (unsat) Date of Mammogram: 09/01/24 (bi rad 3) Review of Systems Const All systems reviewed & are unremarkable except as noted in HPI and below Card Reports as per HPI Resp Reports as per HPI GI Reports as per HPI and Reports no additional complaints Reports as per HPI Physical Exam Vital Signs: Last Vital Signs BP 124/78 01/13/25 15:52 BMI result Body Mass Index 30.9 Const General: cooperative, healthy appearing and comfortable Chest Chest palpation & inspection: normal inspection of the chest and normal palpation of entire chest wall Breast/axilla inspection: normal inspection of the breasts and normal inspection of the axillae Breast/axilla palpation: normal palpation of the breasts, normal palpation of the axillae and no axillary lymphadenopathy Resp Effort & Inspection: normal respiratory effort Auscultation: clear to auscultation bilaterally Percussion: percussion normal Cardio Palpation: normal PMI Rate: regular rate Rhythm: regular rhythm Heart sounds: no murmurs and no rubs Peripheral pulses: Peripheral pulses 2+ throughout GI Inspection: Yes normal to inspection Palpation (GI): Soft to palpation, nontender, no guarding, not rigid and No hepatosplenomegaly present Percussion: Yes normal to percussion Auscultation: normal bowel sounds Rectal Exam - Female: deferred General: Yes bladder normal to palpation External Female Exam: No lesion Speculum Exam - Vagina: normal appearance of the vagina, normal palpation, normal vaginal discharge and not erythematous Speculum Exam - Cervix: normal appearance of the cervix, normal palpation and Other cervical findings present (IUD string seen) Bimanual exam- vagina & uterus: normal bimanual exam, normal palpation, uterine size normal, bladder normal to palpation, consistency normal and normal palpat ion Bimanual Exam- Adnexa, other: normal adnexae, no masses and no tenderness Office Procedures IUD Insert/Removal Details Details: The patient is in for Mirena IUD insertion Urine test was done in the office and was negative; All the contraindications were excluded. The following possible complications were discussed with the patient: Intrauterine , Ectopic , Sepsis, Pelvic Infection, Irregular Bleeding and Amenorrhea, Perforation, Expulsion, Ovarian Cysts, Breast Cancer, The following adverse effects were discussed with the patient: alteration of menstrual bleeding pattern, including: unscheduled uterine bleeding decreased ut erine bleeding increased scheduled uterine bleeding female genital tract bleeding ,amenorrhea , genital discharge , vulvovaginitis , breast pain , benign ovarian cyst and associated complications , dysmenorrhea , Gastrointestinal disorders abdominal/pelvic pain, headache/migraine , back pain , acne , depression Alternative options were discussed with the patient including but not limited: control pills, patch, NuvaRing, Depo-medroxyprogesterone acetate, Nexplanon, copper IUD, sterilization, vasectomy, others The procedure was explained in detail to patient , at the end patient signed the informed consent obtained. A no touch technique was used throughout the procedure. A speculum was placed into vagina and cervix was cleaned with betadine). A tenaculum was placed. A plastic sound was advanced through the external and internal os until it reached the fundus of the uterus, the depth was 8 cm. The sound was then withdrawn. The IUD was loaded in a sterile manner and advanced into position. The string was visualized and cut to 3 cm. Tenaculum site hemostatic. All instruments removed from vagina. Patient tolerated the procedure well. NO complications were noted. Patient was instructed to call for fever over 100.4, significant pain unrelieved by Motrin, IUD expulsion, heavy bleeding, or abnormal discharge. In addition, the following clinical considerations were discussed with the patient to call for removal: A stroke or heart attack ,Very severe or migraine headaches ,Unexplained fever ,Yellowing of the skin or whites of the eyes, as these may be signs of serious l iver problems , or suspected , Pelvic pain or pain during sex ,HIV positive seroconversion in herself or her partner , Possible exposure to sexually transmitted infections Unusual vaginal discharge or genital sores , severe vaginal bleeding or bleeding that lasts a long time, or if she misses a menstrual period, Inability to feel Mirena's threads Counseled the patient that the IUD does not protect against STI's, recommended use of condoms for the first 7 days post insertion and explained to the patient that condoms are recommended for patients at risk for sexually transmitted infections. Informed the patient that Mirena IUD is FDA approved for 8 years for contraception for 5 years for the treatment of heavy menses Instructed the patient to schedule a Follow up appointment in 4 to 6 weeks following insertion. This note was generated with a voice recognition program. Some errors may have been overlooked during the review of this note. Sometimes these errors may affec t the content or meaning of a given sentence. 20318-PYH Insertion Procedure code (CPT) selection complete IUD Insert/Removal Details Details: Mirena IUD removal Counseling/Consent: After discussing with the patient the risks of the procedure including bleeding, infection, scar tissue formation, , possible injury to blood vessels or nerves, chronic arm pain, blood transfusion, and irregular unpredictable bleeding Alternative options were discussed with the patient including but not limited: Do nothing. The patient signed the consent and agreed with the plan; all questions answered. Urine test was done in the office and was negative Preop dx: Malpositioned Mirena IUD for removal Op: IUD removal Post op dx: same EBL= 10 cc Procedure: The patient was put in the dorsal lithotomy position a speculum was inserted in the vagina the IUD thread identified. Using a Elo clamp the thread was grasped and the IUD pulled out with no complications. The patient tolerated the procedure well and was advised to use a different method for contraception. Discharge instructions: Instructions were given to the pt to call if temp>100.4, abdominal pain heavy vaginal bleeding, n/v occur. The patient verbalized understanding and all questions answered. This note was generated with a voice recognition program. Some errors may have been overlooked during the review of this note. Sometimes these errors may affect the content or meaning of a given sentence. 32381-HIB Removal Procedure code (CPT) selection complete Office Meds Mirena 21 mcg/24 hr (up to 8 years) 52 mg intrauterine device Performing Provider: Vicente Mooney MD Performing Location: [facility] [place] [facility] Documented (not given) by: Vicente Mooney MD on 01/13/25 16:40 Dose Route Admin Location Dispensed Lot Number Expiration Date [facility] [employer] Machine Servicer 1 device intrauterine ea Total Dispensed Waste n/a n/a Assessment & Plan Assessment & Plan (1) Well woman exam: Comment: Unsatisfactory Pap Code(s): Z01.419 - Encounter for gynecological examination (general) (routine) without abnormal findings Category: Medical Plan: Cotesting done. Counseled the patient about the recommended dietary allowance of 1000 mg of Calcium & 600 IU of vitamin D. The patient was instructed to perform monthly self-breast exams and to schedule an annual exam in a year; All questions answered and the patient verbalized understanding. Instructed the patient to schedule annual exam in a year (2) Unsatisfactory cervical Papanicolaou smear: Code(s): R87.615 - Unsatisfactory cytologic smear of cervix Category: Medical Plan: Pap repeated (3) Malpositioned IUD: Code(s): T83.32XA - Displacement of intrauterine contraceptive device, initial encounter Category: Medical Plan: Discussed with the patient the finding on ultrasound showing a low positioned IUD, recommended Mirena removal and insertion. The patient agreed, see procedure note (4) Complex ovarian cyst: Code(s): N83.299 - Other ovarian cyst, unspecified side Category: Medical Plan: Discussed with the patient the complex ovarian cyst by ultrasound. Discussed with the patient the Ultrasound findings, the main limitation of transvaginal ultrasonography alone as a diagnostic tool to distinguish benign from malignant masses relates to its lack of specificity and low positive predictive value for cancer. The differential diagnosis discussed with the patient includes the following but not limited to: benign and malignant gynecological and non-gynecological causes. Laboratory evaluation include UPT and GC/CT , serum tumor marker CA 125 . Discussed with the patient options of treatment , in case CA 125 is not elevated, including laparoscopy ovarian cystectomy/oophorectomy vs. expectant management with repeat US in repeating pelvic US in 6-12 weeks from previous US. If the ovarian complex cyst is persistent larger and / or more complex looking, or higher CA 125 will refer to gynecologic Oncology. All pros, cons, risks and benefits of each approach were discussed with the patient including but not limited to a delay in the diagnosis and treatment of ovarian cancer affecting the prognosis; The patient decided to go ahead with expectant management. Instructions given the patient to schedule a 3 months follow-up ultrasound appointment. All questions were answered & the patient verbalized understanding and agreed with the plan. (5) Phlebolith: Code(s): I87.8 - Other specified disorders of veins Category: Medical Plan: Discussed with the patient the finding on CT scan, phleboliths in the appendix, consistent of appendicitis given to the patient she is to go to emergency room in case persistent right-sided quadrant pain, nausea and vomiting, fever of 100.4. All questions answered, the patient verbalized understanding (6) Pelvic pain: Code(s): R10.2 - Pelvic and perineal pain Category: Medical Plan: UPT and urine dip done in the office was negative. GC and chlamydia collected. Mirena IUD removed and new Mirena IUD inserted, will repeat ultrasound in 6 weeks to follow-up on the complex ovarian cyst. Instructions given the patient to call or go to emergency room in case of persistence of her pelvic pain, fever above 100.4, nausea or vomiting or vaginal bleeding. (7) Uterine myoma: Code(s): D25.9 - Leiomyoma of uterus, unspecified Category: Medical Plan: Discussed with the patient the findings on pelvic ultrasound & the risk of myosarcoma; in addition reviewed with the patient that malignancy and pre malignancy cannot be ruled out without hysterectomy for pathological evaluation ; furthermore, explained to the patient the limitation of pelvic ultrasound and endometrial biopsy in the setting. Discussed with the patient the options of treatment including expectant management versus hysterectomy; the pros and cons, risks benefits of each approach were discussed with the patient including the fact that in cases of myosarcoma, surgical treatment can lead to early diagnosis and positively affects the prognosis; after further discussion, the patient decided to proceed with expectant management. Will repeat pelvic ultrasound periodically. Instructions given to patient to call in case any of the following occurs: pressure symptoms, abnormal uterine bleeding, pelvic pain; and to schedule a pelvic ultrasound in few months and a follow-up appointment . All questions answered, the patient verbalized understanding and agreed with the plan . (8) Vulvovaginitis: Code(s): N76.0 - Acute vaginitis Category: Medical Plan: GC/CT, Bacterial Vaginosis panel taken, Terazol 0.8% q.h.s. for 3 days was sent to the patient's pharmacy. The patient was instructed to call if symptoms don't improve in 48 hours. (9) Encounter for IUD removal and reinsertion: Code(s): Z30.433 - Encounter for removal and reinsertion of intrauterine contraceptive device Plan Mirena IUD removed and reinserted, see procedure Orders: Orders US pelvic and transvaginal 6 Weeks N83.299 - Other ovarian cyst, unspecified side AMB IUD Insertion/Removal - Practice Supplied Today Z30.433 - Encounter for removal and reinsertion of intrauterine contraceptive device Medications: New terconazole 0.8% 1 appful vaginal BEDTIME 20 grams 0RF 3 days Mirena (levonorgestrel) 1 device intrauterine ONCE 1 ea 0RF IUD removal and reinsertion NS Z30.433 - Encounter for removal and reinsertion of intrauterine contraceptive device Coding Level of Care Code Est Pt Level 4 (55376) Procedure Only Diagnoses Well woman exam Z01.419 Unsatisfactory cervical Papanicolaou smear R87.615 Malpositioned IUD T83.32XA Complex ovarian cyst N83.299 Phlebolith I87.8 Pelvic pain R10.2 Uterine myoma D25.9 Vulvovaginitis N76.0 Encounter for IUD removal and reinsertion Z30.433 CPT Codes Details - CPT: 10473-AEV Insertion ([id number]) Details - CPT: 30255-LEI Removal ([id number])
[2025-01-13 15:52] VITALS: BP 124/78; BMI 30.9
--- OUTSIDE RECORDS SUMMARY | 2025-01-13 16:10 | XMS_ITS | Encounter Summary ---
Author Organization [employer] Address [address] [facility] [address] [place] [address] Care Team Providers Care Director [facility] Care [facility] Name Role Phone Jennie Murray MD Primary Care Provider Petra Wiley Primary Care Provider [phone] Willard Waters Unavailable [phone] VictoriaSeptember Unavailable Juan Sandra MD Unavailable [phone] Brigid Guy NP Unavailable Vicente Mooney MD Unavailable Beth Rai MD Unavailable [phone] Michell Espinoza Unavailable Encounter Details Date Type Department Care Team (Latest Contact Info) Description 09/12/2020 Abstract [facility] CONVERSIONS Dental, Provider, DDS Social [...] Care Team (Late st Contact Info) Description 01/18/2025 3:00 PM EDT Office Visit [facility] ADULT DENTAL [address] [place] [address] Sanaz Nelson documented as of this encounter Visit Diagnoses Not on filedocumented in this encounter Care Teams Director Day Care Center Relationship Specialty Start Date End Date Jennie Murray MD [address] [place] [address] PCP - General Family Medicine 06/23/13 03/16/24 Petra Wiley FNP [address] [place] [address] PCP - General Family Medicine 03/17/24 Willard Waters [address] Rheumatology 05/17/24 Victoria Sumaya [address] [facility] [address] [place] [address] Gastroenterology 05/17/24 Juan Sandra MD [address] [place] [address] Hematology and Oncology 05/17/24 Brigid Guy NP [address] [place] [address] Urology 05/17/24 Vicente Mooney MD [address] [place] [address] [address] [place] [address] Obstetrics and Gynecology 05/17/24 Beth Rai MD [address] [place] [address] [address] [place] [address] Neurology 05/17/24 Michell Espinoza [address] [facility] [address] [place] [address] Cardiology 05/17/24 [facility] KeeperProduct Safety Tester 09/26/23 documented as of this encounter
--- OUTSIDE RECORDS SUMMARY | 2025-01-13 16:10 | XMS_ITS | Encounter Summary ---
Author Organization [facility] Address [address] [place] [address] Care Team Providers Care Field Sampling Technician Name Role Phone Petra Wiley Primary Care Provider Encounter Details Date Type Department Care Team (Late st Contact Info) Description 12/31/2024 Results Follow-Up [facility] [address] [place], [place] [id number] Payable Manager: Mary Senior LPN Social History Tobacco Use Types Packs/Day Years [...] encounter Miscellaneous Notes * Telephone Encounter - Mary Valenzuela LPN - 12/31/2024 1:41 PM EDT Patient aware of results. Xray done for the other hand, wasn't taken here, it was taken by another provider, results in chart. states it did show something, would like provider to review that xray and any other imaging in the past so at the next visit, whatever is wrong with her hands can be discussed and they can be on the same page. States someone was to give her a call to book follow up appointment, she hasn't heard from anyone. Number provided to patient and she will call to schedule Per visit note 11/02/24 Follow Up: 2-3 month follow up * Telephone Encounter - Mary Valenzuela LPN - 12/31/2024 1:40 PM EDT ----- Message from Newton Street DO sent at 12/08/2024 6:13 AM EDT ----- Tim Castano, Could we please call Ms. Asif and let her know that the MRI of her hand did not reveal any inflammation or arthritis. Thank You! Greg ----- Message ----- From: Interface, Radiology Results In Sent: 12/07/2024 8:18 AM EDT To: Newton Street DO documented in this encounter Plan of Treatment Upcoming Encounters Date Type Department Care Team (Late st Contact Info) Description 01/18/2025 3:40 PM EDT Office Visit [facility] [address] [place] [address] Shavon Roberson NP [address] [place] [address] 02/09/2025 10:15 AM EDT Office Visit [facility] 4th Floor [address] [facility] Fourth [place] [phone] Payable Manager: Breann Tang MD [address] [place] [address] 03/04/2025 3:00 PM EDT Office Visit [facility] [address] [place] [address] Payable Manager: Shasha Campos PA [address] [place] [address] documented as of this encounter Visit Diagnoses Not on filedocumented in this encounter Care Teams Field Sampling Technician Relationship Specialty Start Date End Date Petra Wiley [address] [place] [id number] PCP - General Family Medicine 03/19/24 documented as of this encounter
--- OUTSIDE RECORDS SUMMARY | 2025-01-13 16:10 | XMS_ITS | Clinical Summary ---
Author Organization [facility] Address [address] [place] [address] Phone Care Team Providers Care Aircraft Powerplant Repairer Name Role Phone Karolina Murray MD Primary Care Provider [phone] Allergies Active Allergy Reactions Criticality Noted Date Comments Citalopram 09/12/2021 Duloxetine 09/12/2021 Morphine 09/12/2021 Other 09/12/2021 Ct dye Tramadol 09/12/2021 Medications HYDROcodone-corrine taminophen (NORCO) 5-325 mg per tablet Take 1 tablet by mouth every 8 (eight) hours as needed for pain (specific location in comments). Partial fill ok 10 tablet 09/12/2021 Active Social History Tobacco Use Types Packs/Day Years Used Date Smoking Tobacco: Never Alcohol Use Standard Drinks/Week Comments Not Currently 0 (1 standard drink = 0.6 oz pur e alcohol) Education Answer Date Recorded Are you interested in more education? Not on martin e 10/12/2022 Are you concerned about learning? Not on file 10/12/2022 No 10/12/2022 No 10/12/2022 Digital Access Answer Date Recorded No 11/13/2022 No 11/13/2022 No 11/13/2022 Reliable internet access at home? Not on file 11/13/2022 Device with a working camera? Not on file Comments Unknown Sex and Gender Information Value Date Recorded Sex Assigned at Not on file Legal Sex Female 2:54 PM EDT Gender Identity Not on file Sexual Orientation Not on file Last Filed Vital Signs Vital Sign Reading Time Taken Comments Blood Pressure 127/74 09/12/2021 4:08 PM EDT Pulse 90 09/12/2021 4:08 PM EDT Temperature 36.9 C (98.4 F) 09/12/2021 4:08 PM EDT Respiratory Rate 20 09/12/2021 4:08 PM EDT Oxygen Saturation 100% 09/12/2021 4:08 PM EDT Inhaled Oxygen Concentration - - Weight - - Height - - Body Mass Index - - Plan of Treatment Health Maintenance Due Date Last Done Comments DEPRESSION SCREENING 1999 HEPATITIS C SCREENING 2005 HIV ONE-TIME SCREENING (18-6 5 YEARS) 2005 PAP SMEAR 2008 SMOKING STATUS SCREENING (On ce After 26 Yrs) 2013 COVID-19 VACCINE (2023-2 5 season) 2024 Adult Td,Tdap Booster 10/13/2025 10/14/2015 HEPATITIS A VACCINES Aged Out No long er eligible based on patient's age to complete this topic HIB VACCINES Aged Out No longer eligi ble based on patient's age to complete this topic MENINGOCOCCAL VACCINES (ACWY) Aged Out No longer eligible based on patient's age to complete this topic MENINGOCOCCAL VACCINES (B) Aged Out N o longer eligible based on patient's age to complete this topic PNEUMOCOCCAL VACCINES (0-49 years) Aged Out No longer eligible based on patient's age to complete this topic Medical Devices Not on file Insurance [facility] C3 ACO [facility] C[place] [id number] [place] [id number] [place] [address] [place] [id number] [facility] C3 ACO Care Teams Aircraft Powerplant Repairer Relationship Specialty Start Date End Date Karolina Murray MD [address] [place] [address] [place] [id number] PCP - General Internal Medicine 09/12/21 Additional Source Comments The information contained in this document represents components of the legal health record. It is not the complete legal health record.[facility]
== END 2025-01-13 16:19 | disposition home or self-care (01) ==
PROVIDERS: PCP Registered Nurse; Visit Provider Obstetrics & Gynecology
DX: Z30.433 Encounter for removal and reinsertion of intrauterine contraceptive device (principal)

== ENCOUNTER 2025-01-13 15:31 | Outpatient (REF) | payer MEDICAID, SELFPAY ==
[2025-01-14 14:55] LABS: Bacterial Vaginosis PCR NEGATIVE (Negative); Candida Group PCR DETECTED (Not Detect); Candida glab krusei PCR NOT DETECTED (Not Detect); Trichomonas vaginalis PCR NOT DETECTED (Not Detect)
[2025-01-14 15:26] LABS: CT PCR NOT DETECTED (Not Detect.); NG PCR NOT DETECTED (Not Detect.)
== END 2025-01-13 15:32 | disposition home or self-care (01) ==
LOC: HO.LNP 15:31
PROVIDERS: PCP Registered Nurse; Visit Provider Obstetrics & Gynecology
DX: N93.9 Abnormal uterine and vaginal bleeding, unspecified (principal); T83.32XA Displacement of intrauterine contraceptive device, initial encounter; N76.0 Acute vaginitis
CPT/HCPCS: 58300; 58301; 81515; 87491; 87591; 87626; 88175; 99212; 99395; J7298

== ENCOUNTER 2025-01-16 23:32 | Emergency (ER) | payer MEDICAID, SELFPAY ==
--- NOTE | ~2025-01-16 | XR_ITS ---
CLINICAL HISTORY: fall 4 view left knee Comparison: None provided Findings: No fractures or dislocations. No significant loss of joint space, osteophytes, or erosions. No joint effusion. No radiopaque foreign body. Anterior soft tissue swelling. IMPRESSION: 1. No acute fracture. This document has been electronically signed by: Paul Escobedo MD on 01/17/2025 00:26:41
--- NOTE | ~2025-01-16 | XR_ITS ---
CLINICAL HISTORY: fall 3 view left elbow Comparison: None provided Findings: No acute fractures. Normal alignment. No significant loss of joint space, osteophytes, or erosions. No joint effusion. No radiopaque foreign body. IMPRESSION: 1. No acute findings. This document has been electronically signed by: Paul Escobedo MD on 01/17/2025 00:39:00
[2025-01-16 23:37] VITALS: BP 126/60; PULSE 95; RESP 16; TEMP 36.8; O2SAT 98; BMI 30.9
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
[2025-01-17 01:21] VITALS: BP 122/71; PULSE 81; RESP 16; TEMP 37.2; O2SAT 100
[2025-01-17] MEDS: Morphine Sulfate Immed Release 15 MG TABLET PO (01:32)
[2025-01-17 01:42] VITALS: BP 122/71; PULSE 81; RESP 16; TEMP 37.2; O2SAT 100
== END 2025-01-17 01:43 | disposition home or self-care (01) ==
PROVIDERS: Emergency Provider Emergency Medicine; PCP Registered Nurse
DX: S80.02XA Contusion of left knee, initial encounter (principal); M25.562 Pain in left knee; M25.462 Effusion, left knee; V19.9XXA Pedal cyclist (driver) (passenger) injured in unspecified traffic accident, initial encounter; Y93.9 Activity, unspecified; Y92.9 Unspecified place or not applicable; Y99.9 Unspecified external cause status
CPT/HCPCS: 73080; 73564; 96374; 99284; J1885

== ENCOUNTER → 2025-01-16 23:50 | Outpatient (BNV) | payer MEDICAID, SELFPAY | PROVIDERS: Emergency Provider Emergency Medicine; PCP Registered Nurse; Visit Provider Radiology Diagnostic Radiology | DX: R22.42 Localized swelling, mass and lump, left lower limb (principal); M25.522 Pain in left elbow | CPT/HCPCS: 73080; 73564 ==

== ENCOUNTER 2025-01-20 16:31 | Outpatient (AMB) | payer MEDICAID, SELFPAY ==
[2025-01-20 16:32] VITALS: BP 112/73; PULSE 89; BMI 31.3
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
--- OUTSIDE RECORDS SUMMARY | 2025-01-20 16:37 | XMS_ITS | Encounter Summary ---
Author Organization [employer] Address [address] [facility] [address] [place] [address] Care Team Providers Care Bulk Picker Name Role Phone Jennie Murray MD Primary Care Provider Petra Wiley Primary Care Provider Willard Waters Unavailable [phone] KesslerSeptember Unavailable Juan Sandra MD Unavailable [phone] Brigid Guy NP Unavailable Vicente Mooney MD Unavailable Beth Rai MD Unavailable Michell Espinoza Unavailable Encounter Details Date Type Department Care Team (Latest Contact Info) Description 09/12/2020 Abstract [facility] CONVERSIONS Dental, Provider, DDS Social History Tobacco [...] Care Team ( st Contact Info) Description 01/26/2025 1:00 PM EDT Clinical Support [facility] DIABETES/NUTRITION [address] [place] [address] [place], [place] [id number] 02/01/2025 3:30 PM EDT Office Visit [facility] [address] [place] [address] Petra Wiley FNP [address] [place] [address] 02/12/2025 2:00 PM EDT Office Visit [facility]ED[facility] [address] [place] [address] Petra Wiley FNP [address] [place] [address] documented as of this encounter Visit Diagnoses Not on filedocumented in this encounter Care Teams Bulk Picker Relationship Specialty Start Date End Date Jennie Murray MD [address] [place] [address] PCP - General Family Medicine 06/23/13 03/16/24 Petra Wiley FNP [address] [place] [address] PCP - General Family Medicine 03/17/24 Willard Waters [address] [place] [address] Rheumatology 05/17/24 Sumaya Kessler [address] [place] [address] Gastroenterology 05/17/24 Juan Sandra MD [address] [place] [id number] Hematology and Oncology 05/17/24 Brigid Guy NP [address] [place] [address] Urology 05/17/24 Vicente Mooney MD [address] [place] [address] [address] [place] [address] Obstetrics and Gynecology 05/17/24 Beth Rai MD [address] [place] [address] [place] [address] Neurology 05/17/24 Michell Espinoza [address] [place] [address] Cardiology 05/17/24 Shelia Zheng Tunnel Elastic Operator ZigzagOffice Agent 09/26/23 documented as of this encounter
--- OUTSIDE RECORDS SUMMARY | 2025-01-20 16:37 | XMS_ITS | Clinical Summary ---
Author Organization [facility] Address [address] [facility] [address] [place] [address] Phone Care Team Providers Care Computer Installer Name Role Phone Karolina Murray MD Primary Care Provider [phone] Allergies Active Allergy Reactions Criticality Noted Date [...] topic Medical Devices Not on file Insurance [facility] [employer] C3 ACO [facility] C[place] [id number] [place] [id number] [place] [address] C3 [place] [address] [facility] C3 ACO Care Teams Computer Installer Relationship Specialty Start Date End Date Karolina Murray MD [address] [place] [address] [place] [id number] PCP - General Internal Medicine 09/12/21 Additional Source Comments The information contained in this document represents components of the legal health record. It is not the complete legal health record.[facility]
== END 2025-01-20 17:48 | disposition home or self-care (01) ==
LOC: HO.HGI 16:31
PROVIDERS: PCP Registered Nurse; Visit Provider Nurse Practitioner
DX: K59.00 Constipation, unspecified (principal); K21.9 Gastro-esophageal reflux disease without esophagitis; K31.84 Gastroparesis
CPT/HCPCS: 99214

== ENCOUNTER → 2025-01-20 16:31 | Outpatient (BNVA) | payer MEDICAID, SELFPAY | PROVIDERS: PCP Registered Nurse; Visit Provider Nurse Practitioner | DX: K59.04 Chronic idiopathic constipation (principal); K31.84 Gastroparesis; K21.9 Gastro-esophageal reflux disease without esophagitis; J38.7 Other diseases of larynx; J39.2 Other diseases of pharynx; K58.1 Irritable bowel syndrome with constipation | CPT/HCPCS: 99212 ==

== ENCOUNTER 2025-01-28 13:04 | Outpatient (AMB) | payer MEDICAID, SELFPAY ==
--- NOTE | 2025-01-28 13:15 | A.OFFVIS_ITS ---
Vital Signs 01/28/25 13:17 Height 4 ft 11 in Weight 151 lb 3.794 oz BMI 30.5 BP 110/70 Blood Pressure Location Rt brachial Position Sitting Pulse 74 Intake Visit Reasons: 6 mth f/up Scheduling Analyst Required: Yes Scheduling Analyst Services: Scheduling Analyst Present Scheduling Analyst Name: [id number] Damien Boatbuilder Wood: Boatbuilder Wood Present Accompanied by: Significant Other Allergies Iodinated Contrast Media (IV DYE, IODINE CONTAINING CONTRAST ) Allergy (Intermediate, Verified 01/28/25 13:26) SHORTNESS OF BREATH citalopram (From CELEXA) Allergy (Unknown, Verified 01/28/25 13:26) VOMITTING duloxetine (Cymbalta) Allergy (Unknown, Verified 01/28/25 13:26) unknown morphine (MORPHINE) Allergy (Unknown, Verified 01/28/25 13:26) PALPITATIONS-PT PREFERS NOT TO TAKE tramadol (TRAMADOL) Allergy (Unknown, Verified 01/28/25 13:26) VOMITING Medication List - Last Reconciled 01/28/25 by SHANON OlveraC acetaminophen (Tylenol Extra Strength) 1,000 mg (2 x 500 mg) PO Q6H PRN albuterol sulfate 90 mcg/actuation (Ventolin HFA) 1 inh inhalation QID amoxicillin-pot clavulanate 875-125 mg 1 tab PO BID 14 days azelastine 1 spray intranasal BID PRN bisacodyl 5 mg PO BEDTIME dexlansoprazole (Dexilant) 60 mg PO DAILY 30 days dicyclomine 10 mg PO TID PRN [Digest Gold PO DAILY] docusate sodium (Colace) 100 mg PO BID 30 days famotidine 40 mg PO BEDTIME famotidine (Pepcid) 40 mg PO BEDTIME fexofenadine 180 mg PO DAILY ibuprofen 400 mg PO Q4-6H PRN loratadine (Children's Allergy Relief (loratadine)) 10 mL PO DAILY lorazepam 1 mg PO BEDTIME PRN nabumetone 750 mg PO BID ondansetron 4 mg PO Q6-8H PRN pregabalin 75 mg PO BID propranolol 20 mg PO BID sennosides (Senokot Extra Strength) 17.2 mg PO BID PRN simethicone 180 mg PO QID 30 days HPI HPI 6 mth f/up: Details: Ambika is a 39-year-old female with past medical history of syncope, heart palpitations and noncardiac chest discomfort who presents for follow-up. Today she reports that she is out of propranolol and has been having heart palpitations. She finds that her heart palpitations are increased when she is anemic. She has received an iron infusion which helped her feel much better overall. She continues to have issues with anemia and heavy vaginal bleeding. She recently had an IUD placed. She is very concerned about her health overall. She does have some anxiety with shortness of breath at times. No shortness of breath brought on by physical activity, no PND, orthopnea or edema. No exertional chest discomfort, lightheadedness, presyncope, syncope. Admits to being mostly sedentary. present. Certified warehouse shipping associate used. [facility] Medical History Abnormal stress ECG Lesion of ovary Vulvovaginitis IUD check up Nausea and vomiting Diarrhea Small intestinal bacterial overgrowth (SIBO), hydrogen subtype Upper abdominal pain Jaylyn albicans infection History of thyroiditis Palpitations Left flank pain, chronic Left hip pain Oropharyngeal dysphagia Rectal bleeding Breast lump Nephrolithiasis Vulvovaginitis jaylyn albicans Vulvovaginal candidiasis Myalgia Toe swelling Hives Fibroadenoma of both breasts Acute diarrhea Recurrent nephrolithiasis Vitamin D deficiency Obesity Fibroadenoma Lipoma Fibromyalgia NURIA positive Hx of lipoma Surgical History History of esophagogastroduodenoscopy (EGD) History of wisdom tooth extraction Family History Father Diabetes Heart attack Asthma Maternal Grandmother Diabetes HTN (hypertension) Parkinson disease Breast cancer Mother Diabetes Family history of diabetes mellitus Sister Asthma Maternal Grandfather Parkinson disease Social History Household Members: Children Housing: Condominium Are you a primary vp care management to a significant other at home: No Do you presently have visiting nurse 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 (plant changer) Alcohol intake: never Patient Tobacco Use Status: Never used Tobacco Second Hand Smoke Exposure: Yes (Neighbors) service: No Current occupational status: disabled Sexual orientation: Straight/Heterosexual Gender identity: Female Female Reproductive History Menstrual Age of Menarche: 13 Review of Systems Const All systems reviewed & are unremarkable except as noted in HPI and below Denies daytime sleepiness, Denies difficulty sleeping, Denies snoring, Denies stops breathing during sleep and Denies weakness Card Details: palpitations Denies chest pain, Denies rapid heart rate, Denies irregular heart rhythm, Denies claudication, Denies lightheadedness, Reports palpitations, Reports dy spnea, Denies dyspnea on exertion, Denies orthopnea, Denies paroxysmal nocturnal dyspnea and Denies slow heart rate Resp Denies cough, Reports dyspnea, Denies dyspnea on exertion and Denies snoring GI Reports no additional complaints, Denies hematochezia, Denies change in stool character and Denies dyspepsia Musc Denies abnormal gait, Denies muscle weakness and Denies numbness Neuro Denies abnormal gait, Denies numbness and Denies weakness Endo Reports palpitations Physical Exam Vital Signs: Last Vital Signs Pulse 74 01/28/25 13:17 BP 110/70 01/28/25 13:17 BMI result Body Mass Index 30.5 Const General: cooperative, healthy appearing, comfortable and no acute distress Orientation/consciousness: patient oriented x3 Neck Neck: Yes normal visual inspection Resp Effort & Inspection: normal respiratory effort Auscultation: clear to auscultation bilaterally, no rales, no rhonchi and no wheezes Cardio Rate: regular rate Rhythm: regular rhythm Heart sounds: S1 normal heart sound present, S2 normal heart sound present, no murmurs and no rubs Neuro General: patient oriented x3 Extrem General: Yes normal to inspection, No no pedal edema and No calf tenderness Psych Appearance: grossly normal Mental Status: mental status grossly normal Speech and movement: Normal speech and movement present Office Procedures EKG Details: Today, read by me, sinus rhythm with sinus arrythmia, rate 74, Qtc 410ms [id number], Complete Assessment & Plan Assessment & Plan (1) Palpitations: Code(s): R00.2 - Palpitations Category: Medical Plan: Reports of heart palpitations with prior findings of sinus tachycardia and occasional PACs and PVCs: Holter monitor was done on 11/01/2023 for 7 days showing sinus rhythm with average heart rate 84, 18% of the time heart rate greater than 100, max heart rate 172, occasional PACs and PVCs. She had been on propranolol 20 mg b.i.d. with improvement in her symptom however she is now out of that medication. She says when she is anemic her palpitations are increased. At this time will restart propranolol 20 mg b.i.d.. Reviewed need for good hydration, Avoid caffeine and adequate rest all reviewed with her. Cardiology follow-up in 6 months, sooner if needed. (2) Abnormal ECG: Code(s): R94.31 - Abnormal electrocardiogram [ECG] [EKG] Category: Medical Plan: History of abnormal EKG. Previously evaluated for abnormal EKG with sinus rhythm with T-wave inversion as well as some ST depressions laterally. Echocardiogram on 01/18/2022 showing EF 60-65%, normal study. An exercise nuclear stress test was done on 01/22/2022 showing exercise 5 minutes with EKG changes suggestive of ischemia however nuclear imaging was normal. ER evaluation 07/2023 with chest discomfort and was told it was costochondritis. ER evaluation 09/19/2023 for heart palpitations, nausea and vomiting. Troponin was normal. EKG does show sinus tachycardia with septal Q, ST and T-wave abnormality in the inferior lateral leads suggesting ischemia. Exercise stress echocardiogram done 11/01/2023 with exercise close to 6 minutes with report of 10/10 chest discomfort with EKG changes that meet criteria for ischemia however No echo evidence of ischemia. Test results previously reviewed with her in detail. She was felt to have noncardiac chest discomfort. -EKG done today showing normal sinus rhythm with sinus arrhythmia, rate 74. No reports of anginal symptoms. No further testing needed at this time. (3) Syncope: Code(s): R55 - Syncope and collapse Category: Medical Qualifiers: Syncope type: unspecified Qualified Code(s): R55 - Syncope and collapse Plan: Syncopal episode approximately 3-4 years ago. No recurrent episodes since that time. Her description of the event is most likely vasovagal. Reviewed the need of good hydration, recognizing symptoms and get in a laying down position if symptoms occurred. Instructed to notify this office if she has any recurrent episode Plan Time spent on chart review, documentation, interview and assessment Medications: Refilled propranolol 20 mg PO BID 60 tabs 5RF for palpitations Coding Level of Care Code Est Pt Level 4 (97131) Complex EM visit Add On G2211 Diagnoses Palpitations R00.2 Abnormal ECG R94.31 Syncope, unspecified syncope type R55 Syncope type: unspecified CPT Codes EKG - CPT: 21404-[id number], Complete ([id number]) Time Spent (min) 30
[2025-01-28 13:17] VITALS: BP 110/70; PULSE 74; BMI 30.5
--- OUTSIDE RECORDS SUMMARY | 2025-01-28 13:56 | XMS_ITS | Encounter Summary ---
Author Organization [facility] Address [address] [place] [address] Care Team Providers Care Blood Donor Recruiter Name Role Phone Petra Wiley Primary Care Provider [phone] Encounter Details Date Type Department Care Team (Late st Contact Info) Description 12/31/2024 Results Follow-Up [facility] [address] [place], [place] [id number] Graphic Coordinator: Mary Senior LPN Social History Tobacco Use [...] Description 02/09/2025 10:15 AM EDT Office Visit [facility] D[facility]atology [facility] 4th Floor [address] [facility], [place] [address] Graphic Coordinator: Breann Tang MD [address] [place] [address] 03/04/2025 3:00 PM EDT Office Visit [facility] [address] [place] [address] Graphic Coordinator: Shasha Campos PA [address] [place] [address] 04/19/2025 1:20 PM EST Lab [facility] ACC Draw Site Fifth Floor [address] [place] [address] 04/19/2025 2:20 PM EST Follow-Up [facility] B[facility] [address] [place] [address] Shavon Roberson NP [address] [place] [address] documented as of this encounter Visit Diagnoses Not on filedocumented in this encounter Care Teams Blood Donor Recruiter Relationship Specialty Start Date End Date Petra Wiley [address] [place] [address] PCP - General Family Medicine 03/19/24 documented as of this encounter
--- OUTSIDE RECORDS SUMMARY | 2025-01-28 13:56 | XMS_ITS | Encounter Summary ---
Author Organization [employer] Address [address] [facility] 7t [place] [address] Care Team Providers Care Addictions Therapist Name Role Phone Jennie Murray MD Primary Care Provider Petra Wiley Primary Care Provider Willard Waters Unavailable [phone] VictoriaSeptember Unavailable Juan Sandra MD Unavailable [phone] Brigid Guy NP Unavailable Vicente Mooney MD Unavailable Beth Rai MD Unavailable [phone] Michell Espinoza Unavailable Encounter Details Date Type Department Care Team (Latest Contact Info) Description 09/12/2020 Abstract [facility] CONVERSIONS Dental, Provider, DDS Social History Tobacco [...] Encounters Date Type Department Care Team ( Contact Info) Description 02/01/2025 3:30 PM EDT Office Visit [facility] MED & PEDS [address] [place], [place] [phone] Petra Wiley FNP [address] [place], [place] [phone] 02/23/2025 1:00 PM EDT Clinical Support [facility] DIABETES/NUTRITION [address] [place] [address] Tamanna Mcintyre, ANGELINA [address] [place] [address] documented as of this encounter Visit Diagnoses Not on filedocumented in this encounter Care Teams Addictions Therapist Relationship Specialty Start Date End Date Jennie Murray MD [address] [place] [address] PCP - General Family Medicine 06/23/13 03/16/24 Petra Wiley FNP [address] [place] [address] PCP - General Family Medicine 03/17/24 Willard Waters [address] [place] [address] Rheumatology 05/17/24 Sumaya Kessler [address] [facility] 3rd [place] [address] Gastroenterology 05/17/24 Juan Sandra MD [address] [place] [address] Hematology and Oncology 05/17/24 Brigid Guy NP [address] [place] [address] Urology 05/17/24 Vicente Mooney MD [address] [place] [address] [address] [place] [address] Obstetrics and Gynecology 05/17/24 Beth Rai MD [address] [place] [address] [address] [place] [address] Neurology 05/17/24 Michell Espinoza [address] 3rd [place] [address] Cardiology 05/17/24 Shelia Zheng Retrieval SpecialistNursing Program Coordinator 09/26/23 documented as of this encounter
--- OUTSIDE RECORDS SUMMARY | 2025-01-28 13:56 | XMS_ITS | Clinical Summary ---
Author Organization [facility] Address [address] [facility] [address] [place] [address] Phone Care Team Providers Care Tents Assembler Name Role Phone Karolina Murray MD Primary Care Provider [phone] Allergies Active Allergy Reactions Criticality Noted Date [...] Medical Devices Not on file Insurance [facility] COOPERATIVE C3 ACO [facility] C3 [place] [address] [place] [address] [place] [address] [place] [address] C3 ACO C3 [place] [address] [facility] C3 ACO Care Teams Tents Assembler Relationship Specialty Start Date End Date Karolina Murray MD [address] [place] [address] [place] [id number] PCP - General Internal Medicine 09/12/21 Additional Source Comments The information contained in this document represents components of the legal health record. It is not the complete legal health record.[facility]
== END 2025-01-28 13:56 | disposition home or self-care (01) ==
LOC: HO.HCS 13:05
PROVIDERS: PCP Registered Nurse; Visit Provider Nurse Practitioner Family
DX: R00.2 Palpitations (principal); R94.31 Abnormal electrocardiogram [ECG] [EKG]; R55 Syncope and collapse
CPT/HCPCS: 93010; 99214

== ENCOUNTER → 2025-01-28 13:04 | Outpatient (BNVA) | payer MEDICAID, SELFPAY | PROVIDERS: PCP Registered Nurse; Visit Provider Nurse Practitioner Family | DX: R00.2 Palpitations (principal); R94.31 Abnormal electrocardiogram [ECG] [EKG]; R55 Syncope and collapse | CPT/HCPCS: 93005; 99212 ==

== ENCOUNTER 2025-02-02 09:31 | Outpatient (AMB) | payer MEDICAID, SELFPAY ==
--- NOTE | 2025-02-02 09:33 | MHC.OFFVIS ---
Vital Signs 02/02/25 09:42 Height 4 ft 11 in Weight 155 lb BMI 31.3 BP 117/62 Blood Pressure Location Rt brachial Position Sitting Pulse 67 Intake Visit Reasons: abd wall & (R) upper extremity mass/lipoma Intake Note: Patient is seen for evaluation of a lipoma of the abdominal wall & right upper extremity noticed 2yrs ago. Pt c/o: lumps on abdomen feel hard to touch. Diagnosed w/ Madelung's syndrome. L.OV:11/25/24 (for breast-PRN) Nuisance Wildlife Control Operator Required: Yes Information Interpreted: clinical only (Berto # [id number]) Accompanied by: boyfriend Gulshan Allergies Iodinated Contrast Media (IV DYE, IODINE CONTAINING CONTRAST ) Allergy (Intermediate, Verified 02/03/25 14:37) SHORTNESS OF BREATH citalopram (From CELEXA) Allergy (Unknown, Verified 02/03/25 14:37) VOMITTING duloxetine (Cymbalta) Allergy (Unknown, Verified 02/03/25 14:37) unknown morphine (MORPHINE) Allergy (Unknown, Verified 02/03/25 14:37) PALPITATIONS-PT PREFERS NOT TO TAKE tramadol (TRAMADOL) Allergy (Unknown, Verified 02/03/25 14:37) VOMITING Medication List - Last Reconciled 02/05/25 by Dru Ragland MD acetaminophen (Tylenol Extra Strength) 1,000 mg (2 x 500 mg) PO Q6H PRN albuterol sulfate 90 mcg/actuation (Ventolin HFA) 1 inh inhalation QID amoxicillin-pot clavulanate 875-125 mg 1 tab PO BID 14 days azelastine 1 spray intranasal BID PRN bisacodyl 5 mg PO BEDTIME dexlansoprazole (Dexilant) 60 mg PO DAILY 30 days [Digest Gold PO DAILY] docusate sodium (Colace) 100 mg PO BID 30 days famotidine 40 mg PO BEDTIME fexofenadine 180 mg PO DAILY ibuprofen 400 mg PO Q4-6H PRN levonorgestrel (Mirena) intrauterine loratadine (Children's Allergy Relief (loratadine)) 10 mL PO DAILY lorazepam 1 mg PO BEDTIME PRN nabumetone 750 mg PO BID ondansetron 4 mg PO Q6-8H PRN pregabalin 75 mg PO BID propranolol 20 mg PO BID sennosides (Senokot Extra Strength) 17.2 mg PO BID PRN simethicone 180 mg PO QID 30 days HPI Comments Details: 39-year-old female patient previously evaluated for breast fibroadenomas now presenting for evaluation of multiple lipomas noted throughout her body. She reports pain associated with the lumps especially in the right upper extremity and upper abdomen bilaterally. She notes bilateral supraclavicular areas of swelling which she feels are also lipomas. She also has lumps in bilateral extremities both upper and lower and throughout her abdominal wall. 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 She is requesting removal of these multiple symptomatic lipomas. She denies any previous excisions and denies a family history of this condition. [facility] Medical History Abnormal stress ECG Lesion of ovary Vulvovaginitis IUD check up Nausea and vomiting Diarrhea Small intestinal bacterial overgrowth (SIBO), hydrogen subtype Upper abdominal pain Jaylyn albicans infection History of thyroiditis Palpitations Left flank pain, chronic Left hip pain Oropharyngeal dysphagia Rectal bleeding Breast lump Nephrolithiasis Vulvovaginitis jaylyn albicans Vulvovaginal candidiasis Myalgia Toe swelling Hives Fibroadenoma of both breasts Acute diarrhea Recurrent nephrolithiasis Vitamin D deficiency Obesity Fibroadenoma Lipoma Fibromyalgia NURIA positive Hx of lipoma Surgical History History of esophagogastroduodenoscopy (EGD) History of wisdom tooth extraction Family History Father Diabetes Heart attack Asthma Maternal Grandmother Diabetes HTN (hypertension) Parkinson disease Breast cancer Mother Diabetes Family history of diabetes mellitus Sister Asthma Maternal Grandfather Parkinson disease Social History Household Members: Children Housing: Condominium Are you a primary women's health care nurse practitioner to a significant other at home: No Do you presently have visiting nurse 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 (porcelain enameling supervisor) Alcohol intake: never Patient Tobacco Use Status: Never used Tobacco Second Hand Smoke Exposure: Yes (Neighbors) service: No Current occupational status: disabled Sexual orientation: Straight/Heterosexual Gender identity: Female Female Reproductive History Menstrual Age of Menarche: 13 Review of Systems Const All systems reviewed & are unremarkable except as noted in HPI and below Physical Exam Vital Signs: Last Vital Signs Pulse 67 02/02/25 09:42 BP 117/62 02/02/25 09:42 BMI result Body Mass Index 31.3 Const General: cooperative and no acute distress Nutritional Appearance: well nourished Orientation/consciousness: patient oriented x3 Limitations: no limitations HEENT Head: Yes normocephalic and Yes atraumatic Ears: hearing grossly normal bilaterally Resp Effort & Inspection: normal respiratory effort, no audible wheezes, no cough and no respiratory distress Cardio Jugular venous distension: no JVD GI Inspection: Yes normal to inspection Skin Other: Warm, dry, no rash, multiple palpable soft tissue masses noted of varying sizes including in the supraclavicular region bilaterally, bilateral upper extremities, bilateral upper abdomen all of which are tender to palpation. No overlying skin changes are appreciated with no redness or discharge. Full body images:  1. 2. 3. 4. 5. 6. Neuro General: patient oriented x3 Extrem Other: As noted above. No edema. 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 The clinical course is slowly progressive. Associated disorders include (among others) chronic liver disease, metabolic syndrome, dyslipidemia, hypertension, peripheral neuropathy, and diabetes [44]. Code(s): E88.89 - Other specified metabolic disorders Category: Medical Plan 39-year-old female patient presenting with numerous soft tissue masses throughout her body including the neck, upper extremities, abdomen which are causing discomfort. On examination all the lesions feels soft and generally quite small. There is a possibility of causing more discomfort removing the lesions then leaving them alone. I suggested evaluation by surgeons familiar with this condition such as Dr. Tovar of [facility] in [place], [place]. They may have a more minimally invasive technique for removal. If this is not possible, referral to Plastic surgery for liposuction would be recommended. Coding Level of Care Code New Pt Level 4 (47873) Diagnoses Madelung's disease E88.89
[2025-02-02 09:42] VITALS: BP 117/62; PULSE 67; BMI 31.3
--- OUTSIDE RECORDS SUMMARY | 2025-02-02 10:34 | XMS_ITS | Clinical Summary ---
Author Organization [facility] Address [address] [facility] [address] [place] [address] Phone Care Team Providers Care Detailer Pharmaceuticals Name Role Phone Karolina Murray MD Primary Care Provider [phone] Allergies Active Allergy Reactions Criticality Noted Date [...] topic Medical Devices Not on file Insurance [facility] COOPERATIVE C3 ACO [facility] C3 [place] [phone] [place] [address] [place] [address] [address] [place] [address] C3 ACO [place] [address] [facility] C3 ACO Care Teams Detailer Pharmaceuticals Relationship Specialty Start Date End Date Karolina Murray MD [address] [place] [address] [place] [id number] PCP - General Internal Medicine 09/12/21 Additional Source Comments The information contained in this document represents components of the legal health record. It is not the complete legal health record.[facility]
--- OUTSIDE RECORDS SUMMARY | 2025-02-02 10:34 | XMS_ITS | Encounter Summary ---
Author Organization [employer] Address [address] [facility] 7t [place] [address] Care Team Providers Care Head Still Operator Name Role Phone Jennie Murray MD Primary Care Provider Petra Wiley Primary Care Provider [phone] Willard Waters Unavailable [phone] KesslerSeptember Unavailable Juan Sandra MD Unavailable [phone] Brigid Guy NP Unavailable Vicente Mooney MD Unavailable Beth Rai MD Unavailable Michell Espinoza Unavailable Encounter Details Date Type Department Care Team (Latest Contact Info) Description 09/12/2020 Abstract [facility] CONVERSIONS Dental, Provider, DDS Social [...] Care Team ( st Contact Info) Description 02/23/2025 1:00 PM EDT Clinical Support [facility] DIABETES/NUTRITION [address] [place] [address] [place] [address] documented as of this encounter Visit Diagnoses Not on filedocumented in this encounter Care Teams Head Still Operator Relationship Specialty Start Date End Date Jennie Murray MD [address] [place] [address] PCP - General Family Medicine 06/23/13 03/16/24 Petra Wiley FNP [address] [place] [address] PCP - General Family Medicine 03/17/24 Willard Waters [address] [place] [address] Rheumatology 05/17/24KesslerSeptember [address] [facility] [address] [place] [address] Gastroenterology 05/17/24 Juan Sandra MD [address] [place] [address] Hematology and Oncology 05/17/24 Brigid Guy NP [address] [place] [address] Urology 05/17/24 Vicente Mooney MD [address] [place] [address] [address] [place] [address] Obstetrics and Gynecology 05/17/24 Beth Rai MD [address] [place] [address] [address] [place] [address] Neurology 05/17/24 Michell Espinoza [address] [facility] [address] [place] [address] Cardiology 05/17/24 [facility] Cutter Woodwind ReedsBanquet Prep Cook 09/26/23 documented as of this encounter
--- OUTSIDE RECORDS SUMMARY | 2025-02-02 10:34 | XMS_ITS | Encounter Summary ---
Author Organization [facility] Address [address] [place] [address] Care Team Providers Care Air Defense Artillery Officer Name Role Phone Petra Wiley Primary Care Provider [phone] Encounter Details Date Type Department Care Team (Late st Contact Info) Description 12/31/2024 Results Follow-Up [facility] Rheumatology Clinic [address] [place], [place] [id number] Snipper: Mary Senior LPN Social History Tobacco Use [...] Description 02/09/2025 10:15 AM EDT Office Visit [facility] Dermatology Clinic 4th Floor [address] [facility], [place] [address] Snipper: Breann Tang MD [address] [place] [address] 03/04/2025 3:00 PM EDT Office Visit [facility] [address] [place] [address] Snipper: Shasha Campos PA [address] [place] [address] 04/19/2025 1:20 PM EST Lab [facility] ACC Draw Site Fifth Floor [address] [place] [address] 04/19/2025 2:20 PM EST Follow-Up [facility] BMT Clinic [address] [place] [address] Shavon Rboerson NP [address] [place] [address] documented as of this encounter Visit Diagnoses Not on filedocumented in this encounter Care Teams Air Defense Artillery Officer Relationship Specialty Start Date End Date Petra Wiley [address] [place] [address] PCP - General Family Medicine 03/19/24 documented as of this encounter
== END 2025-02-02 10:05 | disposition home or self-care (01) ==
LOC: HO.HGS 09:31
PROVIDERS: PCP Registered Nurse; Visit Provider Surgery
DX: E88.89 Other specified metabolic disorders (principal)
CPT/HCPCS: 99214

== ENCOUNTER → 2025-02-02 09:31 | Outpatient (BNVA) | payer MEDICAID, SELFPAY | PROVIDERS: PCP Registered Nurse; Visit Provider Surgery | DX: E88.89 Other specified metabolic disorders (principal) | CPT/HCPCS: 99212 ==

== ENCOUNTER 2025-02-03 13:25 | Outpatient (REF) | payer MEDICAID, SELFPAY ==
--- NOTE | ~2025-02-03 | US_ITS ---
EXAMINATION: US RETROPERITONEAL LIMITED (RENAL ONLY) CLINICAL INFORMATION: Calculus of kidney. COMPARISON: 10/26/[address] abdomen and pelvis 01/08/2025. TECHNIQUE: Real-time imaging of the kidneys. FINDINGS: RIGHT KIDNEY: 10.6 x 4.1 x 5.4 cm (SAG x AP x TRV). The kidney is normal in size, contour, and echogenicity. Renal cortical thickness is normal. No suspicious parenchymal lesion. No hydronephrosis. There are 3 nonobstructing calculi, largest in the upper pole measuring 4 x 2 x 3 mm. LEFT KIDNEY: 11.2 x 4.2 x 4.2 cm (SAG x AP x TRV). The kidney is normal in size, contour, and echogenicity. Renal cortical thickness is normal. No suspicious parenchymal lesion. No hydronephrosis. There are 2 nonobstructing calculi, the largest in the upper pole measuring 3 x 2 x 2 mm. US/US renal BI IMPRESSION: Bilateral nonobstructing nephrolithiasis. Electronically signed by: Mauricio Veliz MD 02/03/2025 03:05 PM EDT
--- OUTSIDE RECORDS SUMMARY | 2025-02-03 14:20 | XMS_ITS | Encounter Summary ---
Author Organization [employer] Address [address] [facility] 7t [place] [address] Care Team Providers Care Practical Nurse Clinical Coordinator Name Role Phone Jennie Murray MD Primary Care Provider [phone] Petra Wiley Primary Care Provider [phone] Willard Waters Unavailable [phone] KesslerSeptember Unavailable Juan Sandra MD Unavailable [phone] Brigid Guy NP Unavailable Vicente Mooney MD Unavailable Beth Rai MD Unavailable Michell Espinoza Unavailable Encounter Details Date Type Department Care Team (Latest Contact Info) Description 09/12/2020 Abstract [facility] CONVERSIONS Dental, Provider, DDS Social History [...] Description 02/23/2025 1:00 PM EDT Clinical Support [facility] DIABETES/NUTRITION [address] [place] [address] [place] [address] documented as of this encounter Visit Diagnoses Not on filedocumented in this encounter Care Teams Practical Nurse Clinical Coordinator Relationship Specialty Start Date End Date Jennie Murray MD [address] [place] [address] PCP - General Family Medicine 06/23/13 03/16/24 Petra Wiley FNP [address] [place] [address] PCP - General Family Medicine 03/17/24 Willard Waters [address] [place] [address] Rheumatology 05/17/24KesslerSeptember [address] [facility] [address] [place] [address] Gastroenterology 05/17/24 Juan Sandra MD [address] [place] [address] Hematology and Oncology 05/17/24 Brigid Guy NP [address] [place] [address] Urology 05/17/24 Vicente Mooney MD [address] [place] [address] [address] [place] [address] Obstetrics and Gynecology 05/17/24 Beth Rai MD [address] [place] [address] [address] [place] [address] Neurology 05/17/24 Michell Espinoza [address] [place] [address] Cardiology 05/17/[address] [facility] Pipe Fitter WeldingMig Welder 09/26/23 documented as of this encounter
--- OUTSIDE RECORDS SUMMARY | 2025-02-03 14:20 | XMS_ITS | Encounter Summary ---
Author Organization [facility] Address [address] [place] [address] Care Team Providers Care Boiler Plant Operator Name Role Phone Petra Wiley Primary Care Provider Encounter Details Date Type Department Care Team (Late st Contact Info) Description 12/31/2024 Results Follow-Up [facility] Rheumatology Clinic [address] [place], [place] [phone] Manager Of Corporate Communications: Mary Senior LPN Social History Tobacco Use [...] 1:40 PM EDT ----- Message from Newton Srteet DO sent at 12/08/2024 6:13 AM EDT [...] [facility] [place] [facility] 4th Floor [address] [facility], [place] [address] Manager Of Corporate Communications: Breann Tang MD [address] [place] [address] 03/04/2025 3:00 PM EDT Office Visit [facility] [address] [place] [address] Manager Of Corporate Communications: Shasha Campos PA [address] [place] [address] 04/19/2025 1:20 PM EST Lab [facility] ACC Draw Site Fifth Floor [address] [place] [address] 04/19/2025 2:20 PM EST Follow-Up [facility] BMT Clinic [address] [place] [address] Shavon Roberson NP [address] [place] [address] documented as of this encounter Visit Diagnoses Not on filedocumented in this encounter Care Teams Boiler Plant Operator Relationship Specialty Start Date End Date Petra Wiley [address] [place] [address] PCP - General Family Medicine 03/19/24 documented as of this encounter
--- OUTSIDE RECORDS SUMMARY | 2025-02-03 14:20 | XMS_ITS | Clinical Summary ---
Author Organization [facility] Address [address] [facility] [address] [place] [address] Phone Care Team Providers Care Electrician Marine Name Role Phone Karolina Murray MD Primary Care Provider [phone] Allergies Active Allergy Reactions Criticality Noted Date [...] Medical Devices Not on file Insurance [facility] C3 ACO [facility] C3 [place] [id number] [place] [id number] [place] [address] [address] [place] [address] C3 [place]CO [place] [id number] [facility] C3 ACO Care Teams Electrician Marine Relationship Specialty Start Date End Date Karolina Murray MD [address] [place] [address] [place] [id number] PCP - General Internal Medicine 09/12/21 Additional Source Comments The information contained in this document represents components of the legal health record. It is not the complete legal health record.[facility]
== END 2025-02-03 13:26 | disposition home or self-care (01) ==
LOC: HO.US 13:25
PROVIDERS: PCP Registered Nurse; Visit Provider Nurse Practitioner Family
DX: N83.291 Other ovarian cyst, right side (principal); D25.9 Leiomyoma of uterus, unspecified; N20.0 Calculus of kidney; N93.9 Abnormal uterine and vaginal bleeding, unspecified; Z32.02 Encounter for pregnancy test, result negative; R76.0 Raised antibody titer
CPT/HCPCS: 76775; 81025; 99212

== ENCOUNTER → 2025-02-03 13:27 | Outpatient (BNV) | payer MEDICAID, SELFPAY | PROVIDERS: PCP Registered Nurse; Visit Provider Radiology Diagnostic Radiology | DX: N20.0 Calculus of kidney (principal) | CPT/HCPCS: 76775 ==

== ENCOUNTER 2025-02-03 14:20 | Outpatient (AMB) | payer MEDICAID, SELFPAY ==
[2025-02-03 14:36] VITALS: BMI 31.3
--- NOTE | 2025-02-03 14:36 | MHC.OFFVIS ---
Vital Signs 02/03/25 14:36 Height 4 ft 11 in Weight 155 lb BMI 31.3 Intake Visit Reasons: Office visit/vag bleeding Information Interpreted: non-clinical & clinical Nursing Educator: Nursing Educator Present Accompanied by: Self / Same As Patient Allergies Iodinated Contrast Media (IV DYE, IODINE CONTAINING CONTRAST ) Allergy (Intermediate, Verified 02/03/25 14:37) SHORTNESS OF BREATH citalopram (From CELEXA) Allergy (Unknown, Verified 02/03/25 14:37) VOMITTING duloxetine (Cymbalta) Allergy (Unknown, Verified 02/03/25 14:37) unknown morphine (MORPHINE) Allergy (Unknown, Verified 02/03/25 14:37) PALPITATIONS-PT PREFERS NOT TO TAKE tramadol (TRAMADOL) Allergy (Unknown, Verified 02/03/25 14:37) VOMITING HPI Comments Details: The patient is presenting complaining of vaginal bleeding and pelvic cramping the last few days. The patient is interested in discussing definitive surgical management The following workup was done.: 01/08 H&H= 13.2/41.4 10/09 TSH, hCG, GC and chlamydia were negative. 10/09 Endometrial biopsy pathology showed no evidence of hyperplasia and/or malignancy. 01/08 Co testing was done was negative. Pelvic ultrasound showed the following: IMPRESSION: 2 cm complex cystic lesion right ovary may correspond to the hemorrhagic appearance on recent CT. No right ovarian torsion. Low position, intrauterine contraceptive device. Uterine fibroids. Small to moderate amount of free fluid in the cul-de-sac. Recent ruptured cyst cannot be excluded. 10/06/2024 Mirena IUD inserted 01/13/2025 malpositioned IUD, Mirena IUD removed and reinserted [facility] Medical History Abnormal stress ECG Lesion of ovary Vulvovaginitis IUD check up Nausea and vomiting Diarrhea Small intestinal bacterial overgrowth (SIBO), hydrogen subtype Upper abdominal pain Jaylyn albicans infection History of thyroiditis Palpitations Left flank pain, chronic Left hip pain Oropharyngeal dysphagia Rectal bleeding Breast lump Nephrolithiasis Vulvovaginitis jaylyn albicans Vulvovaginal candidiasis Myalgia Toe swelling Hives Fibroadenoma of both breasts Acute diarrhea Recurrent nephrolithiasis Vitamin D deficiency Obesity Fibroadenoma Lipoma Fibromyalgia NURIA positive Hx of lipoma Surgical History History of esophagogastroduodenoscopy (EGD) History of wisdom tooth extraction Family History Father Diabetes Heart attack Asthma Maternal Grandmother Diabetes HTN (hypertension) Parkinson disease Breast cancer Mother Diabetes Family history of diabetes mellitus Sister Asthma Maternal Grandfather Parkinson disease Social History Household Members: Children Housing: Condominium Are you a primary career transition specialist to a significant other at home: No Do you presently have visiting nurse 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 (composition board press operator) Alcohol intake: never Patient Tobacco Use Status: Never used Tobacco Second Hand Smoke Exposure: Yes (Neighbors) service: No Current occupational status: disabled Sexual orientation: Straight/Heterosexual Gender identity: Female Female Reproductive History Menstrual Age of Menarche: 13 Review of Systems Const All systems reviewed & are unremarkable except as noted in HPI and below Physical Exam General: Yes no CVA tenderness External Female Exam: normal external appearance and normal appearance of the urethra Speculum Exam - Vagina: normal appearance of the vagina, normal palpation, no lesions and no masses Speculum Exam - Cervix: normal appearance of the cervix, normal palpation, no lesions, no masses, nontender and Other cervical findings present (IUD string in place) Bimanual exam- vagina & uterus: normal bimanual exam, normal palpation, uterine size normal, normal palpation, uterine shape normal, No Cervical tenderness present and non-tender Bimanual Exam- Adnexa, other: normal adnexae Back/Spine/Pelvis Back: no CVA tenderness Assessment & Plan Assessment & Plan (1) Abnormal uterine bleeding (AUB): Comment: NURIA positive B 3 Mammo 09/08 Uterine myoma Code(s): N93.9 - Abnormal uterine and vaginal bleeding, unspecified Category: Medical Plan: UPT done in the office was negative Pelvic ultrasound and CBC ordered Instructions given the patient to schedule a follow-up appointment within 1-2 weeks refrain from intercourse till then Discussed with the patient the different types of hysterectomies including, vaginal, laparoscopic assisted vaginal, robotic assisted laparoscopic,& abdominal with BSO. All pros, cons, r/b of each approach were discussed the patient including evidence that morbidity is less and recovery is shorter with minimally invasive approaches to hysterectomy. Discussed with the patient the lack of availability of the robot DaVinci robot and/or minimally invasive corporate officer specialist at [facility]. Will refer to [facility] minimally invasive aviation electronics technician surgery. Instructed the patient to call our office back in case a referral appointment is not scheduled, missed or canceled so that we will assist on rescheduling another appointment, the patient verbalized understanding agreed with the plan. (2) Complex ovarian cyst: Code(s): N83.299 - Other ovarian cyst, unspecified side Category: Medical Plan: Ultrasound ordered follow on previous complex ovarian cyst Orders: Orders US pelvic and transvaginal Today N83.299 - Other ovarian cyst, unspecified side, N93.9 - Abnormal uterine and vaginal bleeding, unspecified Complete Blood Count no Diff Today N83.299 - Other ovarian cyst, unspecified side, N93.9 - Abnormal uterine and vaginal bleeding, unspecified Coding Level of Care Code Est Pt Level 3 (87392) Diagnoses Abnormal uterine bleeding (AUB) N93.9 Complex ovarian cyst N83.299
== END 2025-02-03 14:59 | disposition home or self-care (01) ==
LOC: HO.HWS 14:20
PROVIDERS: PCP Registered Nurse; Visit Provider Obstetrics & Gynecology
DX: N93.9 Abnormal uterine and vaginal bleeding, unspecified (principal); N83.299 Other ovarian cyst, unspecified side; Z32.02 Encounter for pregnancy test, result negative
CPT/HCPCS: 99213

== ENCOUNTER 2025-02-05 13:28 | Outpatient (REF) | payer MEDICAID, SELFPAY ==
--- NOTE | ~2025-02-05 | US_ITS ---
EXAMINATION: US PELVIS CLINICAL INFORMATION: N93.9 - Abnormal uterine and vaginal bleeding, unspecified COMPARISON: January 08, 2025 TECHNIQUE: Ultrasound of the pelvis is performed using both transabdominal and transvaginal transducers along with Doppler. Transvaginal imaging is performed due to inadequate visualization transabdominally. FINDINGS: Uterus: The uterus is anteverted and measures 8.9 x 2.9 x 4.2 cm. Shadowing IUD is present in the mid uterine cavity and is posteriorly displacement by the fundal fibroid. The double wall endometrial thickness is 8 mm. The upper uterine echogenicity is heterogeneous with hypoechoic areas. Anterior fundal intramural leiomyoma measures 1.6 x 1.6 x 1.7 cm previously 2.3 x 2.3 x 1.6 cm. Posterior upper uterine body intramural leiomyoma measures 1.0 x 0.7 x 0.9 cm previous study 1.0 x 0.9 x 1.27 cm. Adnexa: Left ovary is not visualized.. There is trace free fluid. Right ovary measures 4.3 x 2.0 x 1.8 cm. There is a 1.4 cm cyst with low level internal echogenicity consistent with proteinaceous debris requiring no further follow-up. US/US pelvic and transvaginal IMPRESSION: Fundal fibroid appears decreased in size and posterior upper body fibroid appears stable. There is posterior inferior displacement of an IUD by a fundal fibroid. Electronically signed by: Bassam Barnes MD 02/05/2025 02:26 PM EDT
--- OUTSIDE RECORDS SUMMARY | 2025-02-05 13:32 | XMS_ITS | Encounter Summary ---
Author Organization [employer] Address [address] [facility] 7t [place] [address] Care Team Providers Care Architectural Intern Name Role Phone Jennie Murray MD Primary Care Provider Petra Wiley Primary Care Provider [phone] Willard Waters Unavailable [phone] KesslerSeptember Unavailable Juan Sandra MD Unavailable [phone] Brigid Guy NP Unavailable Vicente Mooney MD Unavailable Beth Ria MD Unavailable Michell Espinoza Unavailable Encounter Details Date Type Department Care Team (Latest Contact Info) Description 09/12/2020 Abstract [facility] CONVERSIONS Dental, Provider, DDS Social History [...] Description 02/23/2025 1:00 PM EDT Clinical Support [facility] DIABETES/NUTRITION [address] [place] [address] [place] [address] documented as of this encounter Visit Diagnoses Not on filedocumented in this encounter Care Teams Architectural Intern Relationship Specialty Start Date End Date Jennie Murray MD [address] [place] [address] PCP - General Family Medicine 06/23/13 03/16/24 Petra Wiley FNP [address] [place] [address] PCP - General Family Medicine 03/17/24 Willard Waters [address] [place] [address] Rheumatology 05/17/24KesslerSeptember 11 Hospital [facility] 3rd [place] [address] Gastroenterology 05/17/24 Juan Sandra MD [address] [place] [address] Hematology and Oncology 05/17/24 Brigid Guy NP [address] [place] [address] Urology 05/17/24 Vicente Mooney MD [address] [place] [address] [address] [place] [address] Obstetrics and Gynecology 05/17/24 Beth Rai MD [address] [place] [address] [address] [place] [address] Neurology 05/17/24 Michell Espinoza [address] [facility] [address] [place] [address] Cardiology 05/17/24 [facility] Legislative DirectorSignal And Communications Maintainer 09/26/23 documented as of this encounter
--- OUTSIDE RECORDS SUMMARY | 2025-02-05 13:32 | XMS_ITS | Clinical Summary ---
Author Organization [facility] Address [address] [facility] [address] [place] [address] Phone Care Team Providers Care Ice Cream Truck Driver Name Role Phone Karolina Murray MD Primary Care Provider [phone] Allergies Active Allergy Reactions Criticality Noted Date [...] topic Medical Devices Not on file Insurance [facility] COOPERATIVE C3 ACO [facility] C3 [place] [id number] [place] [id number] [place] [address] [address] [place] [address] C3 ACO [place] [id number] [facility] C3 ACO Care Teams Ice Cream Truck Driver Relationship Specialty Start Date End Date Karolina Murray MD [address] [place] [address] [place] [id number] PCP - General Internal Medicine 09/12/21 Additional Source Comments The information contained in this document represents components of the legal health record. It is not the complete legal health record.[facility]
--- OUTSIDE RECORDS SUMMARY | 2025-02-05 13:32 | XMS_ITS | Encounter Summary ---
Author Organization [facility] Address [address] [place] [address] Care Team Providers Care Cash Register Repairer Name Role Phone Petra Wiley Primary Care Provider [phone] Encounter Details Date Type Department Care Team (Late st Contact Info) Description 12/31/2024 Results Follow-Up [facility] Rheumatology Clinic [address] [place], [place] [id number] Addressograph Operator: Mary Senior LPN Social History Tobacco Use [...] Contact Info) Description 02/09/2025 10:15 AM EDT Clinical Support [facility] Dermatology Clinic 4th Floor [address] [facility], [place] [address] Addressograph Operator: Breann Tang MD [address] [place] [address] 03/04/2025 3:00 PM EDT Clinical Support [facility] Community Women's Care [address] [place] [address] Addressograph Operator: Shasha Campos PA [address] [place] [address] 04/19/2025 1:20 PM EST Lab [facility] ACC Draw Site Fifth Floor [address] [place] [address] 04/19/2025 2:20 PM EST Follow-Up [facility] BMT Clinic [address] [place] [address] Shavon Roberson NP [address] [place] [address] documented as of this encounter Visit Diagnoses Not on filedocumented in this encounter Care Teams Cash Register Repairer Relationship Specialty Start Date End Date Petra Wiley [address] [place] [address] PCP - General Family Medicine 03/19/24 documented as of this encounter
== END 2025-02-05 13:29 | disposition home or self-care (01) ==
LOC: HO.US 13:28
PROVIDERS: PCP Registered Nurse; Visit Provider Obstetrics & Gynecology
DX: N93.9 Abnormal uterine and vaginal bleeding, unspecified (principal); N83.299 Other ovarian cyst, unspecified side
CPT/HCPCS: 76830; 76856

== ENCOUNTER → 2025-02-05 13:30 | Outpatient (BNV) | payer MEDICAID, SELFPAY | PROVIDERS: PCP Registered Nurse; Visit Provider Radiology Diagnostic Radiology | DX: D25.2 Subserosal leiomyoma of uterus (principal) | CPT/HCPCS: 76830; 76856 ==

== ENCOUNTER 2025-02-10 13:45 | Outpatient (AMB) | payer MEDICAID, SELFPAY ==
--- OUTSIDE RECORDS SUMMARY | 2025-02-09 10:15 | XMS_ITS | Encounter Summary ---
Author Organization [facility] Address [address] [place] [address] Care Team Providers Care Sports Commentator Name Role Phone Petra Wiley Primary Care Provider [phone] Reason for Referral * Consultation (Routine) - Pending Review Specialty Diagnoses / Procedures Referred By Mehreen linares Referred To Contact Dermatology Diagnoses Raynaud's phenomenon without gangrene Breann Nobles MD [address] [place] [address] Phone: tel: fax: Referral ID Status Reason Start Date Expiration Date Visits Requested Visits Authorized [id number] Pending Review Specialty Services Required 02/09/2025 03/12/2026 6 6 Reason for Visit * Reason Comments Skin Problem Concern about skin * Consultation (Routine) - Pending Review Specialty Diagnoses / Procedures Referred By Mehreen linares Referred To Contact Dermatology Diagnoses Erythromelalgia (HCC) [address], DO [address] [facility] Rheumtology [place], [place] Phone: tel: fax: Breann Nobles MD [address] [place] [address] Phone: tel: fax: Referral ID Status Reason Start Date Expiration Date Visits Requested Visits Authorized [id number] Pending Review Specialty Services Required 07/22/2024 01/21/2026 6 6 Encounter Details Date Type Department Care Team (Late st Contact Info) Description 02/09/2025 10:15 AM EDT Office Visit [facility] Dermat[facility] Clinic 4th Floor [address] [facility], [place] [phone] Senior Cyber Security Analyst: Breann Tang MD [address] [place] [address] Raynaud's phenomenon without gangrene (Primary Dx) Social [...] 10:24 AM EDT Interpretors - Yani - [id number] documented in this encounter Progress Notes * [...] conversation? Patient consents to be recorded by [employer] system. Account Relationship Manager Account Relationship Manager Used: Yes Type of Account Relationship Manager Used: Video Account Relationship Manager Account Relationship Manager Name/Number Interpretors - Yani - [id number] Referring Provider: Newton Street DO Reason for Referral: Erythromelalgia (HCC) HPI: Ambika Gleason is a 39 y.o. female History of Present Illness The patient presents for Raynaud's phenomenon, lupus, anemia, and a bleeding disorder. She is accompanied by a theatrical trouper. She sought medical attention from Dr. Edwards [...] had an IUD inserted on 01/13/2025. Her glove cutter informed her that hormone therapy was not [...] Description 03/04/2025 3:00 PM EDT Office Visit [facility] [address] [place] [address] Senior Cyber Security Analyst: Shasha Campos PA [address] [place] [address] 04/19/2025 1:20 PM EST Lab [facility] ACC Draw Site Fifth Floor [address] [place] [address] 04/19/2025 2:20 PM EST Follow-Up [facility] [address] [place] [address] Shavon Roberson NP [address] [place] [address] Scheduled Referrals Name Type Priority Associated Diagnoses Order Schedule Ambulatory referral to Dermatology Outpatient Referral Routine Raynaud's phenomenon without gangrene Expected: 02/09/2025, Expires: 03/12/2026 documented as of this encounter Visit Diagnoses Diagnosis Raynaud's phenomenon without gangrene- Primary documented in this encounter Care Teams Sports Commentator Relationship Specialty Start Date End Date Petra Wiley [address] [place] [address] PCP - General Family Medicine 03/19/24 documented as of this encounter
--- NOTE | 2025-02-10 13:47 | A.OFFVIS_ITS ---
Intake Visit Reasons: 3M follow up/ US Intake Note: Patient is present for 3M/US Urology Medication:NONE Antibiotic Allergy:NONE Blood Thinner:NONE Community Outreach Worker Required: No Allergies Iodinated Contrast Media (IV DYE, IODINE CONTAINING CONTRAST ) Allergy (Intermediate, Verified 02/10/25 20:42) SHORTNESS OF BREATH citalopram (From CELEXA) Allergy (Unknown, Verified 02/10/25 20:42) VOMITTING duloxetine (Cymbalta) Allergy (Unknown, Verified 02/10/25 20:42) unknown morphine (MORPHINE) Allergy (Unknown, Verified 02/10/25 20:42) PALPITATIONS-PT PREFERS NOT TO TAKE tramadol (TRAMADOL) Allergy (Unknown, Verified 02/10/25 20:42) VOMITING Medication List - Last Reconciled 02/10/25 by NIC Davey- acetaminophen (Tylenol Extra Strength) 1,000 mg (2 x 500 mg) PO Q6H PRN albuterol sulfate 90 mcg/actuation (Ventolin HFA) 1 inh inhalation QID azelastine 1 spray intranasal BID PRN bisacodyl 5 mg PO BEDTIME dexlansoprazole (Dexilant) 60 mg PO DAILY 30 days [Digest Gold PO DAILY] docusate sodium (Colace) 100 mg PO BID 30 days famotidine 40 mg PO BEDTIME fexofenadine 180 mg PO DAILY ibuprofen 400 mg PO Q4-6H PRN levonorgestrel (Mirena) intrauterine loratadine (Children's Allergy Relief (loratadine)) 10 mL PO DAILY lorazepam 1 mg PO BEDTIME PRN nabumetone 750 mg PO BID ondansetron 4 mg PO Q6-8H PRN pregabalin 75 mg PO BID propranolol 20 mg PO BID sennosides (Senokot Extra Strength) 17.2 mg PO BID PRN simethicone 180 mg PO QID 30 days HPI Comments Details: Ambika is a pleasant 39-year-old female patient of Dr. Hightower who was accompanied by her at today's office visit. She has a past medical history of vitamin-D deficiency, obesity, thyroiditis, fibroadenoma, lipoma, fibromyalgia, and NURIA positive. She presents to the office today for follow-up of her nephrolithiasis. In discussion with the patient today she reports since her last office visit here she has been having ongoing issues with menorrhagia and right mid to lower abdominal discomfort and has seeked emergency room care. She also reports having followed up with bottom cementer and will be having an upcoming appointment in February for a 2nd opinion for further management of her menorrhagia. She also reports she will be following up with a general surgeon for potential appendectomy. In review of patient's chart it appears CT 01/08 noted a tiny appendicolith is seen at the base of the appendix. The appendix is mildly prominent, but demonstrates intraluminal gas without periappendiceal inflammatory stranding to suggest acute appendicitis. She reports she continues with intermittent mid to lower right abdominal discomfort. She also reports having recently followed up with her commercial relief driver and was diagnosed with Raynaud's phenomenon verses lupus. She reports she is on a waiting list for further assessment evaluation with digital marketing manager. With regard to her urological needs she denies having had any bothersome urinary issues or concerns. Most recent renal imaging results were reviewed. 02/08 bilateral nonobstructing nephrolithiasis measuring 2-3 mm. No hydronephrosis or suspicious lesions noted bilaterally. However, we did discuss on CT imaging 01/08 no nephrolithiasis or hydronephrosis noted. In office urinalysis results reviewed with the patient today microscopic hematuria noted however patient is currently with menorrhagia. She also reports having had recent IUD removal with reinsertion due to issues with positioning. She denies incontinence, nocturia, hematuria, dysuria, foul smelling urine, changes to urinary stream, flank pain, fever, and or chills. She discusses at length having followed up with her new commercial relief driver and [place] and how helpful this has been. She discusses being diagnosed with an auto immune disorder however continues to undergo further workup for further diagnosing. 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 She does continue to report ongoing generalized pain throughout her entire body. She discusses attempting to drink plenty of water daily. She discusses her new hobby of bike riding. She otherwise offers no other issues or concerns at this time. [facility] Medical History Abnormal stress ECG Lesion of ovary Vulvovaginitis IUD check up Nausea and vomiting Diarrhea Small intestinal bacterial overgrowth (SIBO), hydrogen subtype Upper abdominal pain Jaylyn albicans infection History of thyroiditis Palpitations Left flank pain, chronic Left hip pain Oropharyngeal dysphagia Rectal bleeding Breast lump Nephrolithiasis Vulvovaginitis jaylyn albicans Vulvovaginal candidiasis Myalgia Toe swelling Hives Fibroadenoma of both breasts Acute diarrhea Recurrent nephrolithiasis Vitamin D deficiency Obesity Fibroadenoma Lipoma Fibromyalgia NURIA positive Hx of lipoma Surgical History History of esophagogastroduodenoscopy (EGD) History of wisdom tooth extraction Family History Father Diabetes Heart attack Asthma Maternal Grandmother Diabetes HTN (hypertension) Parkinson disease Breast cancer Mother Diabetes Family history of diabetes mellitus Sister Asthma Maternal Grandfather Parkinson disease Social History Household Members: Children [facility] Are you a primary patient care representative to a significant other at home: No Do you presently have visiting nurse 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 (electrical continuity tester) Alcohol intake: never Patient Tobacco Use Status: Never used Tobacco Second Hand Smoke Exposure: Yes (Neighbors) service: No Current occupational status: disabled Sexual orientation: Straight/Heterosexual Gender identity: Female Female Reproductive History Menstrual Age of Menarche: 13 Review of Systems Const All systems reviewed & are unremarkable except as noted in HPI and below Physical Exam Const General: cooperative, healthy appearing, comfortable, no acute distress, well developed, alert and awake Nutritional Appearance: overweight Orientation/consciousness: patient oriented x3 Limitations: no limitations HEENT Head: Yes normal to inspection, Yes normocephalic and Yes atraumatic Ears: hearing grossly normal bilaterally Eyes General: appearance normal, both eyes and all related structures Neck Neck: Yes normal visual inspection and Yes trachea midline Chest Chest palpation & inspection: normal inspection of the chest Resp Effort & Inspection: able to speak in complete sentences Cardio Rate: regular rate GI Inspection: Yes normal to inspection General: Yes no CVA tenderness Back/Spine/Pelvis Back: no CVA tenderness Skin General skin exam: no rashes or lesions noted Neuro General: patient oriented x3 Extrem General: Yes normal to inspection Psych Appearance: grossly normal and well kempt Mental Status: mental status grossly normal Speech and movement: Clear speech present Affect: normal affect Attitude: cooperative Thought process: Normal thought process present Thought content: Normal thought content present Insight: Fair insight present (Psych) Judgement: Fair judgement present (Psych) Results AMB Urinalysis, Automated UA Leukoctes 0 Gael/uL Last Edit by RHONDA Xiong on 02/10/25 14:01 UA Nitrite Negative Last Edit by Elmer Marley CCM on 02/10/25 14:01 UA Urobilinogen 0.2 mg/dL Last Edit by Elmer Marley [facility] on 02/10/25 14:0 1 UA Protein 0 mg/dL Last Edit by Elmer Marley [facility] on 02/10/25 14:01 UA pH 6.0 Last Edit by Elmer Marley [facility] on 02/10/25 14:01 UA Blood 80 Constantino/uL Last Edit by Elmer Marley [facility] on 02/10/25 14:01 UA Specific [place] 1.015 Last Edit by Elmer Marley [facility] on 02/10/25 14: 01 UA Ketone Negative Last Edit by Elmer Marley [facility] on 02/10/25 14:01 UA Bilirubin 0 mg/dL Last Edit by Elmer Marley [facility] on 02/10/25 14:01 UA Glucose 0 mg/dL Last Edit by Elmer Marley [facility] on 02/10/25 14:01 Results Reviewed Results Reviewed: Laboratory Last Values Urine pH (Auto) 6.0 02/10/25 14:00 Specific [place] (Auto) 1.015 02/10/25 14:00 Urine Protein (Auto) 0 mg/dL 02/10/25 14:00 Glucose (UA)(Auto) 0 mg/dL 02/10/25 14:00 Urine Ketones (Auto) Negative 02/10/25 14:00 Urine Blood (Auto) 80 Constantino/uL 02/10/25 14:00 Urine Nitrite (Auto) Negative 02/10/25 14:00 Urine Bilirubin (Auto) 0 mg/dL 02/10/25 14:00 Urine Urobilinogen (Auto) 0.2 mg/dL 02/10/25 14:00 Leukocyte Esterase (Auto) 0 Gael/uL 02/10/25 14:00 Date of Service: 02/03/25 Procedure(s): US renal BI FINDINGS: RIGHT KIDNEY: 10.6 x 4.1 x 5.4 cm (SAG x AP x TRV). The kidney is normal in size, contour, and echogenicity. Renal cortical thickness is normal. No suspicious parenchymal lesion. No hydronephrosis. There are 3 nonobstructing calculi, largest in the upper pole measuring 4 x 2 x 3 mm. LEFT KIDNEY: 11.2 x 4.2 x 4.2 cm (SAG x AP x TRV). The kidney is normal in size, contour, and echogenicity. Renal cortical thickness is normal. No suspicious parenchymal lesion. No hydronephrosis. There are 2 nonobstructing calculi, the largest in the upper pole measuring 3 x 2 x 2 mm. IMPRESSION: Bilateral nonobstructing nephrolithiasis. Assessment & Plan Assessment & Plan (1) Recurrent nephrolithiasis: Code(s): N20.0 - Calculus of kidney Category: Medical (2) Microhematuria: Code(s): R31.29 - Other microscopic hematuria Category: Medical Plan In office urinalysis results reviewed with the patient today; as noted above; will send for urine cytology. Recent renal imaging results reviewed with the patient today; as noted above. We discussed importance of adequate hydration relation to nephrolithiasis as well as lower urinary tract symptoms. Will continue with surveillance monitoring at this time. Continue to follow-up with bottom cementer, Rheumatology, Oncology, Gastroenterology, and PCP as planned. Will obtain renal ultrasound in 6 months. Follow-up in 6 months with imaging to be completed prior; or sooner with any issues, concerns, and or questions. Orders: Orders Urine Cytology Today R31.29 - Other microscopic hematuria AMB Urinalysis Automated Today Z13.9 - Encounter for screening, unspecified US renal BI 6 Months N20.0 - Calculus of kidney Patient Instructions: The patient had an opportunity to ask questions regarding the treatment plan. All questions were answered. Physical exam, labs, and imaging were discussed and reviewed in detail. As well as risks, benefits, and discussion of treatment choices. No major barriers to understanding were identified. The patient expressed understanding and agreement with the above treatment plan. The patient was made aware they should contact our office by phone for worsening of their current condition, the appearance of new symptoms, or with any questions or concerns. Compliance is encouraged with any medications and follow up testing that is ordered. It is a privilege to be allowed the opportunity to p articipate in? your urological care.? Again, if you have any questions or concerns If you have any questions or concerns please do not hesitate to contact me. The office is [phone]. This note is constructed using voice recognition software. While every effort has been made to ensure accuracy emergency room specialist errors may have been included. Yours sincerely, LINUS Davey Coding Level of Care Code Est Pt Level 4 (39536) Complex EM visit Add On G2211 Diagnoses Recurrent nephrolithiasis N20.0 Microhematuria R31.29 Time Spent (min) 40
--- OUTSIDE RECORDS SUMMARY | 2025-02-10 14:35 | XMS_ITS | Encounter Summary ---
Author Organization [facility] Address [address] [place] [address] Care Team Providers Care Senior Regulatory Affairs Specialist Name Role Phone Petra Wiley Primary Care Provider [phone] Encounter Details Date Type Department Care Team (Latest Contact Info) Description 06/26/2024 Transcribe Orders [facility] Physician Referral Services [address] [place] [address] Isaiaskiersten Petra [address] [place], [place] [phone] Subcutaneous mass of right upper extremity (Primary [...] Description 03/04/2025 3:00 PM EDT Office Visit [facility] [address] [place] [address] Rag Production Worker: Shasha Campos PA [address] [place] [address] 04/19/2025 1:20 PM EST Lab [facility] ACC Draw Site Fifth Floor [address] [place] [address] 04/19/2025 2:20 PM EST Follow-Up [facility] [address] [place] [address] Shavon Roberson NP [address] [place], [place] [phone] documented as of this encounter Visit Diagnoses Diagnosis Subcutaneous mass of right upper extremity- Primary Subcutaneous mass of abdominal wall documented in this encounter Care Teams Senior Regulatory Affairs Specialist Relationship Specialty Start Date End Date Petra Wiley [address] [place] [address] PCP - General Family Medicine 03/19/24 documented as of this encounter
--- OUTSIDE RECORDS SUMMARY | 2025-02-10 14:35 | XMS_ITS | Encounter Summary ---
Author Organization [employer] Address [address] [facility] 7t [place] [address] Care Team Providers Care Dairy Equipment Specialist Name Role Phone Jennie Murray MD Primary Care Provider [phone] Petra Wiley Primary Care Provider [phone] Willard Waters Unavailable [phone] KesslerSeptember Unavailable Juan Sandra MD Unavailable [phone] Brigid Guy NP Unavailable Vicente Mooney MD Unavailable Beth Rai MD Unavailable Michell Espinoza Unavailable Encounter Details Date Type Department Care Team (Latest Contact Info) Description 09/03/2018 Abstract [facility] CONVERSIONS Dental, Provider, DDS Social History [...] Care Team (Late st Contact Info) Description 02/23/2025 1:00 PM EDT Clinical Support [facility] DIABETES/NUTRITION [address] [place] [address] [place], [place] [phone] documented as of this encounter Visit Diagnoses Not on filedocumented in this encounter Care Teams Dairy Equipment Specialist Relationship Specialty Start Date End Date Jennie Murray MD [address] [place] [address] PCP - General Family Medicine 06/23/13 03/16/24 Petra Wiley FNP [address] [place] [address] PCP - General Family Medicine 03/17/24 Willard Waters [address] [place] [address] Rheumatology 05/17/24KesslerSeptember [address] [facility] 3rd [place] [address] Gastroenterology 05/17/24 Juan Sandra MD [address] [place] [address] Hematology and Oncology 05/17/24 Brigid Guy NP [address] [place] [address] Urology 05/17/24 Vicente Mooney MD [address] [place] [address] [address] [place] [address] Obstetrics and Gynecology 05/17/24 Beth Rai MD [address] [place] [address] [address] [place] [address] Neurology 05/17/24 Michell Espinoza 11 [facility] 3rd [place] [address] Cardiology 05/17/24 [facility] Hide ExaminerBehavior Management Specialist 09/26/23 documented as of this encounter
--- OUTSIDE RECORDS SUMMARY | 2025-02-10 14:35 | XMS_ITS | Encounter Summary ---
Author Organization [employer] Address [address] [facility] 7t [place] [address] Care Team Providers Care Swimming Pool Installer And Servicer Name Role Phone Petra Wiley GENERAL WAREHOUSE ASSOCIATE Primary Care Provider Willard Waters Unavailable [phone] September Unavailable Juan Sandra MD Unavailable [phone] Brigid Guy NP Unavailable Vicente Mooney MD Unavailable Beth Ria MD Unavailable Michell Espinoza Unavailable Reason for Visit * Reason Comments Med Refill Encounter Details Date Type Department Care Team ([facility] st Contact Info) Description 01/07/2025 Refill [facility] CHC MED & PEDS [address] [place], [place] [phone] Petra Wiley FNP [address] [place], [place] [phone] Fibromyalgia Social History Tobacco Use Types Packs/Day Years Used Date Smoking Tobacco: Never Passive Smoke Exposure: Never Smokeless Tobacco: Never Alcohol Use Standard Drinks/Week Comments Never 0 (1 standard drink = 0.6 oz pur e alcohol) Depression Answer Date Recorded Patient Health Questionnaire-9 Score 8 11/25/2024 Patient Health Questionnaire-9 Score 8 11/25/2024 Last PHQ-9: Questionnaire Data Not on file 0 11/25/2024 Housing Stability Answer Date Recorded What is [...] Date Recorded Patient Health Questionnaire-2 Score 2 11/25/2024 Internet Access Answer Date Recorded Internet Access [...] Description 02/23/2025 1:00 PM EDT Clinical Support [facility] DIABETES/NUTRITION [address] [place] [address] [place] [address] documented as of this encounter Visit Diagnoses Diagnosis Fibromyalgia Unspecified myalgia and myositis documented in this encounter Additional Health Concerns Assessment Noted Time PHQ-9 Depression Total Score: 8 11/26/19 25 5:52 PM EDT documented as of this encounter Care Teams Swimming Pool Installer And Servicer Relationship Specialty Start Date End Date Petra Wiley FNP [address] [place] [address] PCP - General Family Medicine 03/17/24 Willard Waters [address] [facility] [address] [place], [place] Rheumatology 05/17/24 Sumaya Kessler [address] 3rd [place] [address] Gastroenterology 05/17/24 Juan Sandra MD [address] [place] [address] Hematology and Oncology 05/17/24 Brigid Guy NP [address] [place] [address] Urology 05/17/24 Vicente Mooney MD [address] [place] [address] [address] [place] [address] Obstetrics and Gynecology 05/17/24 Beth Rai MD [address] [place] [address] 140 [place] [address] Neurology 05/17/24 Michell Espinoza 11 [facility] 3rd [place] [address] Cardiology 05/17/24 Shelia Zheng Law WriterWastewater Treatment Plant Instructor 09/26/23 documented as of this encounter
--- OUTSIDE RECORDS SUMMARY | 2025-02-10 14:35 | XMS_ITS | Encounter Summary ---
Author Organization [facility] Address [address] [place] [address] Care Team Providers Care Data Integrity Specialist Name Role Phone Petra Wiley Primary Care Provider [phone] Encounter Details Date Type Department Care Team (Late st Contact Info) Description 12/31/2024 Results Follow-Up [facility] Rheumatology Clinic [address] [place], [place] [phone] Applications Tester: Mary Senior LPN Social History Tobacco Use [...] encounter Miscellaneous Notes * Telephone Encounter - Mayr Valenzuela LPN - 12/31/2024 1:41 PM EDT [...] Description 03/04/2025 3:00 PM EDT Office Visit [facility] Women[facility] Care [address] [place] [address] Applications Tester: Kate Castaneda [facility] [place] [address] [place] [address] 04/19/2025 1:20 PM EST Lab [facility] ACC Draw Site Fifth Floor [address] [place] [address] 04/19/2025 2:20 PM EST Follow-Up [facility] Building BMT Clinic [address] [place] [address] Shavon Roberson NP [address] [place], [place] [phone] documented as of this encounter Visit Diagnoses Not on filedocumented in this encounter Care Teams Data Integrity Specialist Relationship Specialty Start Date End Date Petra Wiley [address] [place] [address] PCP - General Family Medicine 03/19/24 documented as of this encounter
--- OUTSIDE RECORDS SUMMARY | 2025-02-10 14:35 | XMS_ITS | Clinical Summary ---
Author Organization [facility] Address [address] [place] [address] Care Team Providers Care Associate Professor Of Art History Name Role Phone Petra Wiley Primary Care Provider Allergies Active Allergy Reactions Criticality Noted Date [...] Encounters Date Type Department Care Team Description 02/09/2025 10:15 AM EDT Office Visit [facility] Dermatology Clinic [address]th [address] [place] [address], Fourth [place] [phone] Head Swamper: Breann Tang MD Raynaud's phenomenon without gangrene (Primary Dx) 01/18/2025 3:40 PM EDT Office Visit [facility] Clinic [address] [place] [address] Shavon Roberson NP Iron deficiency (Primary Dx) 12/31/2024 Results Follow-Up [facility] Rheumatology Clinic [address] [place] [address] Head Swamper: Mary Senior LPN 12/02/2024 Telephone [facility] Rheumatology Clinic [address] [place] [address] Head Swamper: Newton Rangel DO from Last 3 Months [...] Sign Reading Time Taken Comments Blood Pressure 131/84 01/18/2025 3:22 PM EDT Pulse 81 01/18/2025 3:22 PM EDT Temperature 36.6 C (97.9 F) 01/18/2025 3:22 PM EDT Respiratory Rate 16 01/18/2025 3:22 PM EDT Oxygen Saturation 98% 01/18/2025 3:22 PM EDT Inhaled Oxygen Concentration - - Weight 70.6 kg (155 lb 10.3 oz) 01/18/2025 3:22 PM EDT Height 149.9 cm (4' 11 ) 11/02/2024 2:02 PM EDT Body Mass Index 31.44 11/02/2024 2:02 PM EDT Plan of Treatment Upcoming Encounters Date Type Department Care Team (Late st Contact Info) Description 03/04/2025 3:00 PM EDT Office Visit [facility] Women's Care [address] [place] [address] Head Swamper: Shasha Campos PA [address] [place] [address] 04/19/2025 1:20 PM EST Lab [facility] ACC Draw Site Fifth Floor [address] [place] [address] 04/19/2025 2:20 PM EST Follow-Up [facility] Building BMT Clinic [address] [place] [address] Shavon Roberson NP [address] [place] [address] Health Maintenance Due Date Last Done Comments HPV and Pap Smear 1987 Hepatitis C Screening 1987 Varicella Vaccines (1 of 2 - 13+ 2-dose series) 2000 Hepatitis B Vaccines (1 of 3 - 19+ 3-dose series) 2006 DTaP,Tdap,and Td Vaccines (1 - Tdap) 10/15/2015 10/14/2015 COVID-19 Vaccine ( - 2023-2 5 season) 2024 Alcohol/Substance Use Screening 06/17/2024 Depression Screening and Follow-Up 06/17/2024 Social Drivers of Health Yoselin ual Screening 06/17/2024 Influenza Vaccine (#1) 2025 6, 03/22/2015, 03/06/2013 Cervical Cancer Screening 01/14/2028 Pap Smear 01/14/2028 01/13/2025, 04/2 07/2024, 11/12/2019 Diabetes Screening 01/19/2028 01/18/2025, 0 01/08/2025, 12/16/2024, Additional history exists RSV Vaccine (60+ years old a nd patients) (1 - 1-dose 75+ series) 2062 HIV Screening Completed 03/18/2024, 03/18/2024 Pneumococcal Vaccine: Pediat rebeca (0-5 Years) and At-Risk Patients (6-50 Years) Completed 05/13/2024 Procedures * Due to [place] state law, this organization might not be sharing negative HIV tests. Procedure Name Priority Date/Time Associated Diagnosis Comments FERRITIN Routine 01/18/2025 4:51 PM EDT Iron deficiency IRON SATURATION Routine 01/18/2025 4:51 PM EDT Iron deficiency FOLATE Routine 01/18/2025 4:51 PM EDT Iron deficiency VITAMIN B12 Routine 01/18/2025 4:51 PM EDT Iron deficiency CBC AUTO DIFFERENTIAL STAT 01/18/2025 4:51 PM EDT Iron deficiency IRON, TIBC AND FERRITIN PANEL (5616) Routine 01/18/2025 4:51 PM EDT Iron deficiency VITAMIN B12 Routine 01/18/2025 4:51 PM EDT Iron deficiency LACTATE DEHYDROGENASE STAT 01/18/2025 4:51 PM EDT Iron deficiency RETICULOCYTES Routine 01/18/2025 4:51 PM EDT Iron deficiency COMPREHENSIVE METABOLIC PANEL STAT 01/18/2025 4:51 PM EDT Iron deficiency MRI HAND RIGHT WO CONTRAST Routine 12/02/2024 9:30 PM EDT Right hand pain AMB EXTERNAL MRI HAND, OUTSIDE RESULT 12/02/2024 from Last 3 Months Results * Due to [place] state law, this organization might not be sharing negative HIV tests. * Iron Saturation (01/18/2025 4:51 PM EDT) Iron Saturation 30 20 - 50 % 6:03 PM EDT [facility] Iron 104 30 - 160 ug/dL 01/18/2025 6:03 PM EDT [facility] Transferrin 274 200 - 360 mg/dL 01/18/2025 6:03 PM EDT [facility] Total Iron Binding Capacity 343 255 - 450 ug/dL 01/18/2025 6:03 PM EDT [facility] Blood Structure of peripheral vein / Unknown Venipuncture / Unknown 01/18/2025 4:51 PM EDT 01/18/2025 5:17 PM EDT Shavon Roberson CONTENT MANAGEMENT SPECIALIST LAB BLOOD ORDERABLES F inal Result [facility] [address] [place] [address], * (ABNORMAL) CBC Auto Differential (01/18/2025 4:51 PM EDT) WBC 10.2 3.8 - 10.8 10*3/uL 01/18/2025 5:12 PM EDT [facility] RBC 4.67 3.80 - 5.10 10*6/uL 01/18/2025 5:12 PM EDT [facility] Hemoglobin 12.4 11.7 - 15.5 g/dL 01/18/2025 5:12 PM EDT [facility] Hematocrit 39.3 35.0 - 45.0 % 01/18/2025 5:12 PM EDT [facility] MCV 84.2 80.0 - 100.0 fL 01/18/2025 5:12 PM EDT [facility] MCH 26.6(L) 27.0 - 33.0 pg 01/18/2025 5:12 PM EDT [facility] MCHC 31.6(L) 32.0 - 36.0 g/dL 01/18/2025 5:12 PM EDT [facility] RDW 14.8 11.0 - 15.0 % 01/18/2025 5:12 PM EDT [facility] Platelets 264 140 - 400 10*3/uL 01/18/2025 5:12 PM EDT [facility] MPV 12.1 7.5 - 12.5 fL 01/18/2025 5:12 PM EDT [facility] Neutrophil % 68.8 % 01/18/2025 5:12 PM EDT [facility] Immature Grans % 0.2 0.0 - 0.9 % 01/18/2025 5:12 PM EDT [facility] Lymphocyte % 22.2 % 01/18/2025 5:12 PM EDT [facility] Monocyte % 6.5 % 01/18/2025 5:12 PM EDT [facility] Eosinophil % 1.7 % 01/18/2025 5:12 PM EDT [facility] Basophil % 0.6 % 01/18/2025 5:12 PM EDT [facility] Neutrophil # 7.04 1.50 - 7.80 10*3/uL 01/18/2025 5:12 PM EDT [facility] Immature Grans # <0.03 <=0.03 10*3/uL 01/18/2025 5:12 PM EDT [facility] Lymphocyte # 2.30 0.85 - 3.90 10*3/uL 01/18/2025 5:12 PM EDT [facility] Monocyte # 0.70 0.20 - 0.95 10*3/uL 01/18/2025 5:12 PM EDT [facility]FIELDMedeAnalyticsAD[facility] Eosinophil # 0.20 0.02 - 0.50 10*3/uL 01/18/2025 5:12 PM EDT [facility] Basophil # 0.10 0.00 - 0.20 10*3/uL 01/18/2025 5:12 PM EDT [facility]FIELDMedeAnalyticsOH[facility] nRBC % 0.0 /100 WBCs 01/18/2025 5:12 PM EDT [facility]FIELDMedeAnalyticsOH[facility] nRBC # <0.01 <0.01 10*3/uL 01/18/2025 5:12 PM EDT [facility] Total Neutrophil #, Preliminary 7.04 1.50 - 7.80 10*3/uL 01/18/2025 5:12 PM EDT [facility] Blood Structure of peripheral vein / Unknown Venipuncture / Unknown 01/18/2025 4:51 PM EDT 01/18/2025 5:07 PM EDT Shavon Roberson CONTENT MANAGEMENT SPECIALIST LAB BLOOD ORDERABLES F inal Result [facility] [address] [place] [address], * Reticulocytes (01/18/2025 4:51 PM EDT) Retic % 0.8 0.5 - 1.6 % 01/18/2025 5:12 PM EDT [facility]edeAnalyticsAD[facility] Retic # 0.04 0.02 - 0.08 10*6/uL 01/18/2025 5:12 PM EDT [facility] Blood Structure of peripheral vein / Unknown Venipuncture / Unknown 01/18/2025 4:51 PM EDT 01/18/2025 5:07 PM EDT Shavon [place] Dipinto CONTENT MANAGEMENT SPECIALIST LAB BLOOD ORDERABLES F inal Result [facility] [address] [place] [address], [place] * (ABNORMAL) Lactate Dehydrogenase (01/18/2025 4:51 PM EDT) LDH 247(H) 135 - 225 U/L 01/18/2025 5:40 PM EDT [facility] Blood Structure of peripheral vein / Unknown Venipuncture / Unknown 01/18/2025 4:51 PM EDT 01/18/2025 5:07 PM EDT Sh[facility]onDanotek Motion Technologiesle Dipinto CONTENT MANAGEMENT SPECIALIST LAB BLOOD ORDERABLES F inal Result Performing Organization Address [facility]/ZIP Co de Phone Number [facility] [address] [place] [address], [place] * Folate (01/18/2025 4:51 PM EDT) Folate 16.4 4.8 - 24.2 ng/mL 01/18/2025 6:03 PM EDT [facility] Blood Structure of peripheral vein / Unknown Venipuncture / Unknown 01/18/2025 4:51 PM EDT 01/18/2025 5:17 PM EDT Shavon [place] Dipinto CONTENT MANAGEMENT SPECIALIST LAB BLOOD ORDERABLES F inal Result [facility] [address] [place] [address], [place] * Ferritin (01/18/2025 4:51 PM EDT) Pathologist [facility] Ferritin 110.0 11.0 - 306.0 ng/mL 01/18/2025 6:03 PM EDT [facility] Blood Structure of peripheral vein / Unknown Venipuncture / Unknown 01/18/2025 4:51 PM EDT 01/18/2025 5:17 PM EDT [facility] PurcellShavonDanotek Motion Technologiesle [facility] CONTENT MANAGEMENT SPECIALIST LAB BLOOD ORDERABLES F inal Result Performing Organization Address City/[facility]/ZIP Co de Phone Number [facility] [address] [place] [address], * Vitamin B12 (01/18/2025 4:51 PM EDT) Pathologist [facility] Vitamin B12 384 232 - 1,245 pg/mL 01/18/2025 6:03 PM EDT [facility] Blood Structure of peripheral vein / Unknown Venipuncture / Unknown 01/18/2025 4:51 PM EDT 01/18/2025 5:17 PM EDT [facility] CONTENT MANAGEMENT SPECIALIST LAB BLOOD ORDERABLES F inal Result Performing Organization Address City/[facility]/ZIP Co de Phone Number [facility] [address] [place] [address], * (ABNORMAL) Comprehensive Metabolic Panel (01/18/2025 4:51 PM EDT) Pathologist [facility] NA 138 135 - 145 mmol/L 01/18/2025 6:03 PM EDT [facility] K 3.9 3.5 - 5.3 mmol/L 01/18/2025 6:03 PM EDT [facility] Cl 104 98 - 107 mmol/L 01/18/2025 6:03 PM EDT [facility] CO2 22 22 - 32 mmol/L 01/18/2025 6:03 PM EDT [facility] Anion Gap 12 5 - 15 01/18/2025 6:03 PM EDT [facility] Glucose 120(H) 65 - 99 mg/dL 01/18/2025 6:03 PM EDT [facility] Creatinine 0.62 0.50 - 1.20 mg/dL 01/18/2025 6:03 PM EDT [facility] Calcium 9.4 8.6 - 10.5 mg/dL 01/18/2025 6:03 PM EDT [facility] Total Protein 7.3 6.0 - 8.0 g/dL 01/18/2025 6:03 PM EDT [facility] Albumin 4.3 3.5 - 5.2 g/dL 01/18/2025 6:03 PM EDT [facility] Bilirubin, Total 0.2 0.2 - 1.2 mg/dL 01/18/2025 6:03 PM EDT [facility] Alkaline Phosphatase 55 35 - 129 U/L 01/18/2025 6:03 PM EDT [facility] AST 19 10 - 40 U/L 01/18/2025 6:03 PM EDT [facility] ALT 13 10 - 40 U/L 01/18/2025 6:03 PM EDT [facility] BUN 9 7 - 23 mg/dL 01/18/2025 6:03 PM EDT [facility] eGFR >90 >=60 mL/min/1. 73m2 01/18/2025 6:03 PM EDT [facility] Comment:The estimated glomer ular filtration rate (eGFR) is calculated using a new formula developed by the NKF-ASN task force to eliminate race-based correction factors. The new formula uses serum/plasma creatinine, age, and gender to determine eGFR. A value below 60mls/min might indicate kidney disease and will be flagged. For additional information, see Abdulaziz et al, Am J Kidney Dis. 2021;79(2):268- 288, A Unifying Approach for GFR estimation: Recommendations of the NKF-ASN Task Force on Reassessing the Inclusion of Race in Diagnosing Kidney Disease . Globulin, Total 3.0 2.1 - 4.2 g/dL 01/18/2025 6:03 PM EDT [facility] A/G Ratio 1.4(L) 1.5 - 3.0 01/18/2025 6:03 PM EDT [facility] Blood Structure of peripheral vein / Unknown Venipuncture / Unknown 01/18/2025 4:51 PM EDT 01/18/2025 5:17 PM EDT Shavon Marin CONTENT MANAGEMENT SPECIALIST LAB BLOOD ORDERABLES F inal Result Performing Organization Address City/State/[facility] Co de Phone Number [facility] [address] [place] [address], [place] * MRI Hand Right without Contrast (12/02/2024 9:30 PM EDT) Anatomical Region Laterality Modality Upper Extremities, Hand Right Magnetic Resonance 12/02/2024 8:40 PM EDT Narrative 12/07/2024 8:13 AM EDT [facility] Accession Number: [id number] Patient Name: Ambika Mcdermott Date of : 1985 Date of Exam: 12-02-2024 Referring Physician: Newton Street [address] [place] [address] Exam: MR Hand (C-) CPT 13021 - Right Room Description: [facility] 3.0T MRI RIGHT HAND HISTORY: Pain FINDINGS: No marrow edema. No osseous erosion or joint effusion. Flexor and extensor tendons of the hand are intact. No evidence of tenosynovitis. IMPRESSION: Normal examination of the hand Electronically Signed By: Giuliano Anthony MD Procedure Note Provider, Tammy - 12/07/2024 [facility] Accession Number: [id number] Patient Name: Ambika Mcdermott Date of : 1985 Date of Exam: 12-02-2024 Referring Physician: Newton Street [address] [place] [address] Exam: MR Hand (C-) CPT 85396 - Right Room Description: [facility] 3.0T MRI RIGHT HAND HISTORY: Pain FINDINGS: No marrow edema. No osseous erosion or joint effusion. Flexor and extensor tendons of the hand are intact. No evidence of tenosynovitis. IMPRESSION: Normal examination of the hand Electronically Signed By: Giuliano Anthony MD us Newton Street DO IMG MRI PROCEDURES Final Resul t * MRI Hand, Outside Result (12/02/2024) Anatomical Region Laterality Modality Other 12/02/2024 us Onbase Scan Emeka AMB EXTERNAL RESULT PROCEDURE S Final Result from Last 3 [place] [address] [facility] Care Teams Associate Professor Of Art History Relationship Specialty Start Date End Date Petra Wiley [address] [place] [id number] PCP - General Family Medicine 03/19/24
--- OUTSIDE RECORDS SUMMARY | 2025-02-10 14:35 | XMS_ITS | Encounter Summary ---
Author Organization [employer] Address [address] [employer] 7t [place] [address] Care Team Providers Care Electric Shaver Mechanic Name Role Phone Petra Wiley MANAGER CUSTOM Primary Care Provider [phone] Willard Waters Unavailable [phone] September Unavailable Juan Sandra MD Unavailable [phone] Brigid Guy NP Unavailable Vicente Mooney MD Unavailable Beth Rai MD Unavailable Michell Espinoza Unavailable Reason for Visit * Reason Onset Date Comments Referral 12/02/2024 Encounter Details Date Type Department Care Team ([facility] st Contact Info) Description 12/02/2024 Telephone [facility] MED & PEDS [address] [place], [place] [phone] Petra Wiley FNP 505 [place], [place] [address] Referral Social History Tobacco Use Types Packs/Day [...] encounter Miscellaneous Notes * Telephone Encounter - Ysabel Martin - 12/02/2024 2:32 PM EDT Tc from pt is requesting for a referral for a MRI left hand. Pt states she has one scheduled for today 12/02 at [facility] [address]. [address], [place] [address] , pt iswondering if both hands can be checked at the same time. PT is requesting a call back. Contact pt at [phone] (english) documented in this encounter Plan of Treatment Upcoming Encounters Date Type Department Care Team ([facility] st Contact Info) Description 02/23/2025 1:00 PM EDT Clinical Support [facility] DIABETES/NUTRITION 230 [place] [address] Tamanna Mcintyre, RD 230 [place] [address] documented as of this encounter Visit Diagnoses Not on filedocumented in this encounter Additional Health Concerns Assessment Noted Time PHQ-9 Depression Total Score: 8 11/26/19 25 5:52 PM EDT documented as of this encounter Care Teams Electric Shaver Mechanic Relationship Specialty Start Date End Date Petra Wiley FNP 230 [place] [address] PCP - General Family Medicine 03/17/24 Willard Waters [address] [place] [address] Rheumatology 05/17/24 Sumaya Kessler [address] [address] Gastroenterology 05/17/24 Juan Sandra MD [address] [place] [address] Hematology and Oncology 05/17/24 Brigid Guy NP [address] [facility] [address] [place] [address] Urology 05/17/24 Vicente Mooney MD [address] [place] [address] [address] [place] [address] Obstetrics and Gynecology 05/17/24 Beth Rai MD [address] [place] [address] 140 [place] [address] Neurology 05/17/24 Michell Espinoza 11 [facility] 3rd [place] [address] Cardiology 05/17/24 [facility] Story ReaderDictaphone Typist 09/26/23 documented as of this encounter
--- OUTSIDE RECORDS SUMMARY | 2025-02-10 14:35 | XMS_ITS | Clinical Summary ---
Author Organization [facility] Address [address] [facility] [address] [place] [address] Phone Care Team Providers Care Hall Tender Name Role Phone Karolina Murray MD Primary Care Provider [phone] Allergies Active Allergy Reactions Criticality Noted Date [...] Medical Devices Not on file Insurance [facility] C3 ACO [facility] C[place] [id number] [place] [id number] [place] [address] [place] [address] C[place] [id number] [facility] C3 ACO Care Teams Hall Tender Relationship Specialty Start Date End Date Karolina Murray MD [address] [place] [address] [place] [id number] PCP - General Internal Medicine 09/12/21 Additional Source Comments The information contained in this document represents components of the legal health record. It is not the complete legal health record.[facility]
--- OUTSIDE RECORDS SUMMARY | 2025-02-10 14:35 | XMS_ITS | Encounter Summary ---
Author Organization [employer] Address [address] [facility] 7t [place] [address] Care Team Providers Care Assembly Machine Tool Setter Name Role Phone Jennie Murray MD Primary Care Provider [phone] Petra Wiley Primary Care Provider [phone] Willard Waters Unavailable [phone] VictoriaSeptember Unavailable Juan Sandra MD Unavailable [phone] Brigid Guy NP Unavailable Vicente Mooney MD Unavailable Beth Rai MD Unavailable Michell Espinoza Unavailable Reason for Visit * Reason Onset Date Comments Appointment Request 12/25/2023 Encounter Details Date Type Department Care Team (Late st Contact Info) Description 12/25/[address] [facility] MEDICINE 230 [place], [place] [phone] Jennie Murray MD 505 [place], [place] [phone] Appointment Request Social History Tobacco Use Types [...] PM EDT Tc from Patrice, residential care facility manager with [facility], calling to schedule appt for pt. Pt is awaiting transfer pt appt with Dr. Wiley in which typewriter mechanic attempted to schedule but found no availability. Please contact Patrice at [phone]. documented in this encounter Plan of Treatment Upcoming Encounters Date Type Department Care Team (Late st Contact Info) Description 02/23/2025 1:00 PM EDT Clinical Support [facility] DIABETES/NUTRITION 230 [place] [address] [place], [place] [phone] documented as of this encounter Visit Diagnoses Not on filedocumented in this encounter Additional Health Concerns Assessment Noted Time PHQ-9 Depression Total Score: 0 07/04/19 23 3:01 PM EST documented as of this encounter Care Teams Assembly Machine Tool Setter Relationship Specialty Start Date End Date Jennie Murray MD 230 [place] [address] PCP - General Family Medicine 06/23/13 03/16/24 Petra Wiley FNP 230 [place] [address] PCP - General Family Medicine 03/17/24 Willard Waters [address] [place] [address] Rheumatology 05/17/24KesslerSeptember 11 [facility] 3rd [place] [address] Gastroenterology 05/17/24 Juan aSndra MD [address] [place] [address] Hematology and Oncology 05/17/24 Brigid Guy NP [address] [place] [address] Urology 05/17/24 Vicente Mooney MD [address] [place] [address] [address] [place] [address] Obstetrics and Gynecology 05/17/24 Beth Rai MD [address] [place] [address] 140 [place] [address] Neurology 05/17/24 Michell Espinoza 11 [facility] 3rd [place] [address] Cardiology 05/17/24 [facility] Shot Hole DrillerCrusher And Blender Operator 09/26/23 documented as of this encounter
--- OUTSIDE RECORDS SUMMARY | 2025-02-10 14:35 | XMS_ITS | Encounter Summary ---
Author Organization [employer] Address [address] [facility] 7t [place] [address] Care Team Providers Care Cured Meats Supervisor Name Role Phone Jennie Murray MD Primary Care Provider Petra Wiley Primary Care Provider Willard Waters Unavailable [phone] KesslerSeptember Unavailable Juan Sandra MD Unavailable [phone] Brigid Guy NP Unavailable Vicente Mooney MD Unavailable Beth Rai MD Unavailable Michell Espinoza Unavailable Encounter Details Date Type Department Care Team (Latest Contact Info) Description 09/12/2020 Abstract [facility] CONVERSIONS Dental, Provider, DDS Social History [...] Description 02/23/2025 1:00 PM EDT Clinical Support [facility] DIABETES/NUTRITION 230 [place] [address] [place] [address] documented as of this encounter Visit Diagnoses Not on filedocumented in this encounter Care Teams Cured Meats Supervisor Relationship Specialty Start Date End Date Jennie Murray MD 230 [place] [address] PCP - General Family Medicine 06/23/13 03/16/24 Petra Wiley FNP 230 [place] [address] PCP - General Family Medicine 03/17/24 Willard Waters [address] [place] [address] Rheumatology 05/17/24KeslserSeptember 11 [facility] 3rd [place] [address] Gastroenterology 05/17/24 Juan Sandra MD [address] [place] [address] Hematology and Oncology 05/17/24 Brigid Guy NP [address] [place] [address] Urology 05/17/24 Vicente Mooney MD [address] [place] [address] [address] [place] [address] Obstetrics and Gynecology 05/17/24 Beth Rai MD [address] [place] [address] 140 [place] [address] Neurology 05/17/24 Michell Espinoza [address] [facility] [address] [place] [address] Cardiology 05/17/24 [facility] Apricot PackerSecond Time Worker 09/26/23 documented as of this encounter
--- OUTSIDE RECORDS SUMMARY | 2025-02-10 14:35 | XMS_ITS | Encounter Summary ---
Author Organization [employer] Address [address] [facility] 7t [place] [address] Care Team Providers Care Commanding Officer Homicide Squad Name Role Phone Petra Wiley BOTTOMER OPERATOR Primary Care Provider Willard Waters Unavailable [phone] September Unavailable Juan Sandra MD Unavailable [phone] Brigid Guy NP Unavailable Vicente Mooney MD Unavailable Beth Rai MD Unavailable Michell Espinoza Unavailable Reason for Visit * Reason Comments Med Refill Encounter Details Date Type Department Care Team ([facility] st Contact Info) Description 12/03/2024 Refill [facility] MED & PEDS 505 [place], [place] [phone] Petra Wiley FNP 505 [place], [place] [phone] Fibromyalgia Social History Tobacco Use Types Packs/Day [...] Description 02/23/2025 1:00 PM EDT Clinical Support [facility] DIABETES/NUTRITION 230 [place] [address] [place] [address] documented as of this encounter Visit Diagnoses Diagnosis Fibromyalgia Unspecified myalgia and myositis documented in this encounter Additional Health Concerns Assessment Noted Time PHQ-9 Depression Total Score: 8 11/26/19 25 5:52 PM EDT documented as of this encounter Care Teams Commanding Officer Homicide Squad Relationship Specialty Start Date End Date Petra Wiley FNP 230 [place] [address] PCP - General Family Medicine 03/17/24 Willard Waters [address] [facility] [address] [place] Rheumatology 05/17/24 Sumaya Kessler [address] 3rd [place] [address] Gastroenterology 05/17/24 Juan Sandra MD 575 [place] [address] Hematology and Oncology 05/17/24 Brigid Guy NP [address] [place] [address] Urology 05/17/24 Vicente Mooney MD [address] [place] [address] [address] [place] [address] Obstetrics and Gynecology 05/17/24 Beth Rai MD [address] [place] [address] 140 [place] [address] Neurology 05/17/24 Michell Espinoza 11 [facility] 3rd [place] [address] Cardiology 05/17/24 Shelia Zheng Plasterer RoughBox Order Person 09/26/23 documented as of this encounter
--- OUTSIDE RECORDS SUMMARY | 2025-02-10 14:36 | XMS_ITS | Encounter Summary ---
Author Organization [employer] Address [address] 7t [place] [address] Care Team Providers Care Acidizer Water Well Name Role Phone Petra Wiley HOGSHEAD HOOPER Primary Care Provider [phone] Willard Waters Unavailable [phone] September Unavailable Juan Sandra MD Unavailable [phone] Brigid Guy NP Unavailable Vicente Mooney MD Unavailable Beth Rai MD Unavailable [phone] Michell Espinoza Unavailable Encounter Details Date Type Department Care Team (Late st Contact Info) Description 12/21/2024 Orders [address] [facility] MEDICINE 230 [place], [place] [phone] Jailene Vitale CNM 230 [place], [place] [phone] Social History Tobacco Use Types Packs/Day Years [...] Description 02/23/2025 1:00 PM EDT Clinical Support [facility] DIABETES/NUTRITION 230 [place] [address] [place] [address] documented as of this encounter Procedures Procedure Name Priority Date/Time Associated Diagnosis Comments PAP SMEAR Routine 10/06/2024 12:00 AM EDT documented in this encounter Results * Pap Smear (10/06/2024 12:00 AM EDT) Swab us Vicente Mooney MD LAB CYTOLOGY ORDERABLES Final Re sult [facility] [address] [place] [address] [phone] documented in this encounter Visit Diagnoses Not on filedocumented in this encounter Additional Health Concerns Assessment Noted Time PHQ-9 Depression Total Score: 8 11/26/19 25 5:52 PM EDT documented as of this encounter Care Teams Acidizer Water Well Relationship Specialty Start Date End Date Petra Wiley FNP 230 [place] [address] PCP - General Family Medicine 03/17/24 Willard Waters [address] [place] [address] Rheumatology 05/17/24KesslerSeptember 11 [facility] 3rd [place] [address] Gastroenterology 05/17/24 Juan Sandra MD [address] [place] [address] Hematology and Oncology 05/17/24 Brigid Guy NP 10 [facility] [address] [place] [address] Urology 05/17/24 Vicente Mooney MD [address] [place] [address] [address] [place] [address] Obstetrics and Gynecology 05/17/24 Beth Rai MD [address] [place] [address] 140 [place] [address] Neurology 05/17/24 Michell Espinoza 11 [facility] 3rd [place] [address] Cardiology 05/17/24 Shelia Zheng Joy LoaderMachine Buffer 09/26/23 documented as of this encounter
--- OUTSIDE RECORDS SUMMARY | 2025-02-10 14:36 | XMS_ITS | Encounter Summary ---
Author Organization [employer] Address [address] [facility] 7t [place] [address] Care Team Providers Care Lockstitch Zipper Setter Name Role Phone Jennie Murray MD Primary Care Provider [phone] Petra Wiley Primary Care Provider Willard Waters Unavailable [phone] KesslerSeptember Unavailable Juan Sandra MD Unavailable [phone] Brigid Guy NP Unavailable Vicente Mooney MD Unavailable Beth Rai MD Unavailable Michell Espinoza Unavailable Encounter Details Date Type Department Care Team (Late st Contact Info) Description 05/18/2022 Orders Only [facility] MEDICINE 230 [place] [address] Jennie Murray MD 505 [place], [place] [phone] Acute foot pain, unspecified laterality (Primary Dx) [...] Description 02/23/2025 1:00 PM EDT Clinical Support [facility] DIABETES/NUTRITION 230 [place] [address] 230 [place] [address] documented as of this encounter Visit Diagnoses Diagnosis Acute foot pain, unspecified laterality- Primary documented in this encounter Care Teams Lockstitch Zipper Setter Relationship Specialty Start Date End Date Jennie Murray MD 230 [place] [address] PCP - General Family Medicine 06/23/13 03/16/24 Petra Wiley FNP 230 [place] [address] PCP - General Family Medicine 03/17/24 Willard Waters [address] [place] [address] Rheumatology 05/17/24September [address] 3rd [place] [address] Gastroenterology 05/17/24 Juan Sandra MD [address] [place] [address] Hematology and Oncology 05/17/24 Brigid Guy NP [address] [place] [address] Urology 05/17/24 Vicente Mooney MD [address] [place] [address] [address] [place] [address] Obstetrics and Gynecology 05/17/24 Beth Rai MD [address] [place] [address] 140 [place] [address] Neurology 05/17/24 Michell Espinoza [address] [facility] [address] 3rd [place] [address] Cardiology 05/17/24 Shelia Zheng SmudgerPolitical Aide 09/26/23 documented as of this encounter
--- OUTSIDE RECORDS SUMMARY | 2025-02-10 14:36 | XMS_ITS | Encounter Summary ---
Author Organization [employer] Address [address] [facility] 7t [place] [address] Care Team Providers Care Forestry Engineer Name Role Phone Jennie Murray MD Primary Care Provider Petra Wiley Primary Care Provider Willard Waters Unavailable [phone] Victoria Sumaya Unavailable Juan Sandra MD Unavailable [phone] Brigid Guy NP Unavailable Vicente Mooney MD Unavailable Beth Rai MD Unavailable Michell Espinoza Unavailable Reason for Visit * Reason Onset Date Comments medication 09/19/2022 Encounter Details Date Type Department Care Team (Late st Contact Info) Description 09/19/2022 Telephone [facility] ADULT DENTAL [address] [place], [place] [phone] Venkat Barreto DDS 230 [place], [place] [phone] medication Social History Tobacco Use Types Packs/Day [...] was sent for Augementin to [facility] in [place]. Patient went in to order picker script and they stated there was nothing there. Contacted [facility] and they stated that nationwide there was a shut down on their system for about 3 hours so it doesn't look like they received it. Can it be resent for patient? documented in this encounter Plan of Treatment Upcoming Encounters Date Type Department Care Team (Late st Contact Info) Description 02/23/2025 1:00 PM EDT Clinical Support [facility] DIABETES/NUTRITION 230 [place] [address] Tamanna Mcintyre, ANGELINA 230 [place] [address] documented as of this encounter Visit Diagnoses Not on filedocumented in this encounter Additional Health Concerns Assessment Noted Time PHQ-9 Depression Total Score: 0 07/04/19 23 3:01 PM EST documented as of this encounter Care Teams Forestry Engineer Relationship Specialty Start Date End Date Jennie Murray MD [address] [place] [address] PCP - General Family Medicine 06/23/13 03/16/24 Petra Wiley FNP 230 [place] [address] PCP - General Family Medicine 03/17/24 Willard Waters 575 [facility] 402 [place], [place] Rheumatology 05/17/24 Sumaya Kessler [address] 3rd [place] [address] Gastroenterology 05/17/24 Juan Sandra MD 575 [place] [address] Hematology and Oncology 05/17/24 Brigid Guy NP [address] [place] [address] Urology 05/17/24 Vicente Mooney MD [address] [place] [address] Obstetrics and Gynecology 05/17/24 Beth Rai MD 15 [facility] 140 [place] [address] Neurology 05/17/24 Michell Espinoza [address] 3rd [place] [address] Cardiology 05/17/24 Shelia Zheng Asphalt Distributor OperatorTubular Riveter 09/26/23 documented as of this encounter
--- OUTSIDE RECORDS SUMMARY | 2025-02-10 14:36 | XMS_ITS | Encounter Summary ---
Author Organization [employer] Address [address] [facility] 7t [place] [address] Care Team Providers Care Factory Process Workers Name Role Phone Jennie Murray MD Primary Care Provider Petra Wiley Primary Care Provider Willard Waters Unavailable [phone] September Unavailable Juan Sandra MD Unavailable [phone] Brigid Guy NP Unavailable Vicente Mooney MD Unavailable Beth Rai MD Unavailable Michell Espinoza Unavailable Encounter Details Date Type Department Care Team (Late st Contact Info) Description 07/26/[address] [facility] MEDICINE 230 [place] [address] Nelson Medrano MD [address] [place] [phone] Chronic idiopathic constipation (Primary Dx) Social History [...] 02/23/2025 1:00 PM EDT Clinical Support [facility] DIABETES/NUTRITION 230 [place] [address] [place] [address] documented as of this encounter Visit Diagnoses Diagnosis Chronic idiopathic constipation- Primary Unspecified constipation documented in this encounter Additional Health Concerns Assessment Noted Time PHQ-9 Depression Total Score: 0 07/04/19 23 3:01 PM EST documented as of this encounter Care Teams Factory Process Workers Relationship Specialty Start Date End Date Jennie Murray MD 230 [place] [address] PCP - General Family Medicine 06/23/13 03/16/24 Petra Wiley FNP 230 [place] [address] PCP - General Family Medicine 03/17/24 Willard Waters [address] [place] [address] Rheumatology 05/17/24September [address] 3rd [place] [address] Gastroenterology 05/17/24 Juan Sandra MD 575 [place] [address] Hematology and Oncology 05/17/24 Brigid Guy NP [address] [place] [address] Urology 05/17/24 Vicente Mooney MD [address] [place] [address] [address] [place] [address] Obstetrics and Gynecology 05/17/24 Beth Rai MD [address] [place] [address] Dr Rangel [address] [place] [address] Neurology 05/17/24 Michell Espinoza [address] 3rd [place] [address] Cardiology 05/17/24 Shelia Zheng Asp Net Mvc DeveloperDeck Mechanic 09/26/23 documented as of this encounter
--- OUTSIDE RECORDS SUMMARY | 2025-02-10 14:36 | XMS_ITS | Encounter Summary ---
Author Organization [employer] Address 75 [facility] 7t [place] [address] Care Team Providers Care Personal Financial Planner Name Role Phone Petra Wiley Primary Care Provider Willard Waters Unavailable [phone] September Unavailable Juan Sandra MD Unavailable [phone] Brigid Guy NP Unavailable Vicente Mooney MD Unavailable Beth Rai MD Unavailable Michell Espinoza Unavailable Reason for Visit * Reason Onset Date Comments Appointment Request 01/08/2025 Encounter Details Date Type Department Care Team (Late st Contact Info) Description 01/08/2025 Telephone [facility] MEDICINE 230 [place] [address] Petra Wiley FNP 505 [place], [place] [phone] Appointment Request Social History Tobacco Use Types [...] encounter Miscellaneous Notes * Telephone Encounter - Taylor Chatman - 01/08/2025 11:54 AM EDT TC from patient requesting to reschedule appointment from 01/08 due to being in the emergency room and unable to attend. Contact pt at [phone] documented in this encounter Plan of Treatment Upcoming Encounters Date Type Department Care Team (Late st Contact Info) Description 02/23/2025 1:00 PM EDT Clinical Support [facility] DIABETES/NUTRITION 230 [place], [place] [phone] Tamanna Mcintyre RD 230 [place] [address] documented as of this encounter Visit Diagnoses Not on filedocumented in this encounter Additional Health Concerns Assessment Noted Time PHQ-9 Depression Total Score: 8 11/26/19 25 5:52 PM EDT documented as of this encounter Care Teams Personal Financial Planner Relationship Specialty Start Date End Date Petra Wiley FNP 230 [place] [address] PCP - General Family Medicine 03/17/24 Willard Waters [address] Rheumatology 05/17/24KesslerSeptember 11 [facility] 3rd [place] [address] Gastroenterology 05/17/24 Juan Sandra MD [address] [place] [address] Hematology and Oncology 05/17/24 Brigid Guy NP [address] [place] [address] Urology 05/17/24 Vicente Mooney MD [address] [place] [address] [address] [place] [address] Obstetrics and Gynecology 05/17/24 Beth Rai MD [address] [place] [address] 140 [place] [address] Neurology 05/17/24 Michell Espinoza 11 [facility] 3rd [place] [address] Cardiology 05/17/24 Shelia Zheng Concrete HandlerForder Operator 09/26/23 documented as of this encounter
--- OUTSIDE RECORDS SUMMARY | 2025-02-10 14:36 | XMS_ITS | Encounter Summary ---
Author Organization [email or web address] Address [address] [facility] 7t [place] [address] Care Team Providers Care Timber Framer Helper Name Role Phone Jennie Murray MD Primary Care Provider Petra Wiley Primary Care Provider [phone] Willard Waters Unavailable [phone] Sumaya Kessler Unavailable Juan Sandra MD Unavailable [phone] Brigid Guy NP Unavailable Vicente Mooney [...] (Late st Contact Info) Description 08/21/2022 Telephone [facility] ADULT DENTAL [address] [place] [address] Venkat Barreto DDS [address] [place] [address] Appointment (Ambika Anaya 1985 Patient [...] Description 02/23/2025 1:00 PM EDT Clinical Support [facility] DIABETES/NUTRITION [address] [place] [address] [place] [address] documented as of this encounter Visit Diagnoses Not on filedocumented in this encounter Additional Health Concerns Assessment Noted Time PHQ-9 Depression Total Score: 0 07/04/19 3:01 PM EST documented as of this encounter Care Teams Timber Framer Helper Relationship Specialty Start Date End Date Jennie Murray MD [address] [place] [address] PCP - General Family Medicine 06/23/13 03/16/24 Petra Wiley FNP [address] [place] [address] PCP - General Family Medicine 03/17/24 Willard Waters [address] [place] [address] Rheumatology 05/17/24 Victoria Sumaya [address] [facility] 3rd [place] [address] Gastroenterology 05/17/24 Juan Sandra MD [address] [place] [address] Hematology and Oncology 05/17/24 Brigid Guy NP [address] [place] [address] Urology 05/17/24 Vicente Mooney MD [address] [place] [address] [address] [place] [address] Obstetrics and Gynecology 05/17/24 Beth Rai MD [address] [place] [address] [address] [place] [address] Neurology 05/17/24 Michell Espinoza [address] [facility] 3rd [place] [address] Cardiology 05/17/24 [facility] Special Education TeacherMolecular Genetic Pathologist 09/26/23 documented as of this encounter
--- OUTSIDE RECORDS SUMMARY | 2025-02-10 14:36 | XMS_ITS | Encounter Summary ---
Author Organization [employer] Address [address] [facility] 7t h Floor [address] Care Team Providers Care Ssrs Report Developer Name Role Phone Jennie Murray MD Primary Care Provider [phone] Petra Wiley Primary Care Provider Willard Waters Unavailable [phone] Victoria Sumaya Unavailable Juan Sandra MD Unavailable [phone] Brigid Guy NP Unavailable Vicente Mooney MD Unavailable Beth Rai MD Unavailable Michell Espinoza Unavailable Encounter Details Date Type Department Care Team (Late st Contact Info) Description 05/25/2022 Abstract [facility] ADULT DENTAL [address] [place], [place] [id number] Dental, Provider, DDS Social History Tobacco Use [...] Description 02/23/2025 1:00 PM EDT Clinical Support [facility] DIABETES/NUTRITION [address] [place], [place] [phone] Tamanna Mcintyre [address] [place] [address] documented as of this encounter Procedures Procedure [...] on filedocumented in this encounter Care Teams Ssrs Report Developer Relationship Specialty Start Date End Date Jennie Murray MD [address] [place] [address] PCP - General Family Medicine 06/23/13 03/16/24 Petra Wiley FNP [address] [place] [address] PCP - General Family Medicine 03/17/24 Willard Waters [address] [facility] [address] [place], [place] Rheumatology 05/17/24 Victoria Sumaya 11 [facility] 3rd [place] [address] Gastroenterology 05/17/24 Juan Sandra MD [address] [place] [address] Hematology and Oncology 05/17/24 Brigid Guy NP [address] [place] [address] Urology 05/17/24 Vicente Mooney MD [address] [place] [address] [address] [place] [address] Obstetrics and Gynecology 05/17/24 Beth Rai MD [address] [place] [address] [address] [place] [address] Neurology 05/17/24 Michell Espinoza 11 [facility] 3rd [place] [address] Cardiology 05/17/24 Shelia Zheng Managing Partner Digital Content Marketing North AmericaCost Estimator 09/26/23 documented as of this encounter
--- OUTSIDE RECORDS SUMMARY | 2025-02-10 14:36 | XMS_ITS | Encounter Summary ---
Author Organization [employer] Address [address] [facility] 7t [place] [address] Care Team Providers Care Range Operator Name Role Phone Petra Wiley NUMERICAL CONTROL LATHE OPERATOR Primary Care Provider Willard Waters Unavailable [phone] September Unavailable Juan Sandra MD Unavailable [phone] Brigid Guy NP Unavailable Vicente Mooney MD Unavailable Beth Rai MD Unavailable Michell Espinoza Unavailable Encounter Details Date Type Department Care Team (Late st Contact Info) Description 02/01/2025 Orders Only [facility] [address] [place], [place] [phone] Provider, MD Addie Social History Tobacco Use [...] 1:00 PM EDT Clinical Support [facility] DIABETES/NUTRITION [address] [place] [address] [place] [address] documented as of this encounter Procedures Procedure Name Priority Date/Time Associated Diagnosis Comments XR ELBOW 1-2 VIEWS LEFT Routine 01/16/2025 12:48 PM EDT documented in this encounter Results * XR Elbow 1-2 Views Left (01/16/2025 12:48 PM EDT) Anatomical Region Laterality Modality Upper Extremities, Elbow Left Radiogr aphic Imaging us Historical Provider MD [facility] XR PROCEDURES Final R esult documented in this encounter Visit Diagnoses Not on filedocumented in this encounter Additional Health Concerns Assessment Noted Time PHQ-9 Depression Total Score: 8 11/26/19 25 5:52 PM EDT documented as of this encounter Care Teams Range Operator Relationship Specialty Start Date End Date Petra Wiley FNP [address] [place] [address] PCP - General Family Medicine 03/17/24 Willard Waters [address] [place] [address] Rheumatology 05/17/24 Sumaya Kessler 11 [facility] 3rd [place] [address] Gastroenterology 05/17/24 Juan Sandra MD [address] [place] [address] Hematology and Oncology 05/17/24 Brigid Guy NP 10 [facility] [address] [place] [address] Urology 05/17/24 Vicente Mooney MD [address] [place] [address] [address] [place] [address] Obstetrics and Gynecology 05/17/24 Beth Rai MD [address] [place] [address] [address] [place] [address] Neurology 05/17/24 Michell Espinoza 11 [facility] 3rd [place] [address] Cardiology 05/17/24 Shelia Zheng Eyeglass Frames InspectorDog Groomer 09/26/23 documented as of this encounter
--- OUTSIDE RECORDS SUMMARY | 2025-02-10 14:36 | XMS_ITS | Clinical Summary ---
Author Organization [employer] Address [address] [place] [address] Care Team Providers Care Spindraw Operator Name Role Phone Petra Wiley OPTOMETRY PROFESSOR Primary Care Provider [phone] Willard Waters Unavailable [phone] September Unavailable Juan Sandra MD Unavailable [phone] Brigid Guy NP Unavailable Vicente Mooney [...] TODOS LOS D AL ACOSTARSE 022 Active Creon [id number] units capsule delayed-release particles capsule TOME ADRY [...] Spit, do not rinse. 112 g 2 024 Active LORazepam (Ativan) 1 MG tablet TAKE 1/2 TABLET BY MOUTH IN THE MORNING AND 1 TABLET AT BEDTIME DIRECTED 023 Active ferrous gluconate (Fergon) 324 (38 Fe) MG tablet TAKE 1 PILL EVERY SATURDAY, SATURDAY, AND SATURDAY. TAKE WITH A FULL GLASS OF WATER OR VIT C CONTAINING JUICE, AND IDEALLY 1 HOUR BEFORE A MEAL OR 2 HOURS AFTER A MEAL 36 tablet 024 Active propranolol (Inderal) 20 MG tablet TAKE [...] PLEASE SEE ATTACHED FOR DETAILED DIRECTIONS Active fexofenadine (Gretchen) 180 MG tabletIndication s:Seasonal allergies Take 1 tablet (180 mg) by mouth Once per day. 90 tablet 3 024 2024 Active Azelastine HCl 137 MCG/SPRAY solutionIndicati ons:Seasonal allergies ADMINISTER 1 SPRAY EACH NOSTRIL IF NEEDED IN THE MORNING AND AT BEDTIME FOR RHINITIS OR ALLERGIES. 30 mL 3 Active pregabalin (Lyrica) 75 MG capsuleIndicatio ns:Fibromyalgia [...] a day for 1 week. 3.5 g Active cholecalciferol (Vitamin D3) 25 MCG (1000 UT) tabletIndication s:Vitamin D insufficiency TAKE 1 TABLET (25 MCG) BY MOUTH ONCE PER DAY. 90 tablet 3 Active chlorhexidine (Peridex) 0.12 % solution Use 15ml to rinse your mouth twice daily. Spit after rinsing; do not swallow. 473 mL Active Additional Information Patient not taking.Reported on 12/25/2024 albuterol 108 (90 Base) MCG/ACT inhalerIndicatio ns:Mild persistent asthma without complication Inhale 2 puffs Every 4-6 hours as needed for wheezing or shortness of breath. 18 g Active fluticasone furoate (Arnuity Ellipta) 100 MCG/ACT inhalerIndicatio ns:Asthma, unspecified asthma severity, unspecified whether complicated, unspecified whether persistent Inhale 1 puff Once per day. Rinse mouth with water after use to reduce aftertaste and incidence of candidiasis. Do not swallow. 1 each Active meclizine (Antivert) 25 MG tabletIndication s:Dizziness Take 0.5-1 tablets (12.5-25 mg) by mouth if needed at bedtime for dizziness. 30 tablet 1 025 2025 Active tiZANidine (Zanaflex) 2 MG tabletIndication s:Fibromyalgia Take 1-2 tablets (2-4 mg) by mouth every 12 (twelve) hours if needed for muscle spasms. 30 tablet 2 025 2025 Active docusate sodium (Colace) 100 MG capsule TOME 1 C PSULA POR V A ORAL DOS VECES AL D A Active nabumetone (Relafen) 750 MG tabletIndication s:Fibromyalgia Take 1 tablet (750 mg) by mouth if needed in the morning and at bedtime (pain). 60 tablet 2 Active dicyclomine (Bentyl) 10 MG capsule Take 1 capsule (10 mg) by mouth 3 times daily. 90 capsule 3 025 Active Bisacodyl EC 5 MG EC tablet Take 2 tablets (10 mg) by mouth if needed each day for constipation. Do not crush, chew, or split. 30 tablet 025 Active sucralfate (Carafate) 1 g tabletIndication s:Gastroesophage al reflux disease without esophagitis Take 1 tablet (1 g) by mouth before breakfast, before lunch, before evening meal, and at bedtime. 120 tablet 2 [address]25 Active [address]ilant [address] capsuleIndicatio ns:Gastroparesis ,Gastroesophagea l reflux disease without esophagitis Take 1 capsule (60 mg) by mouth Once per day. Do not crush or chew. 90 capsule 025 2024 Active Bisacodyl EC 5 MG EC tablet TAKE 2 TABLETS ORALLY BEDTIME FOR 30 DAYS 023 2024 Discontinued(R eorder (will not trigger notification to Pharmacy)) dicyclomine (Bentyl) 10 MG capsule TOME ADRY C MAURO SIUS VECES AL D A 023 2024 Discontinued(R eorder (will not trigger notification to Pharmacy)) Dexilant [address] capsuleIndicatio ns:Gastroparesis ,Gastroesophagea l reflux disease without esophagitis Take 1 capsule (60 mg) by mouth Once per day. Do not crush or chew. 90 capsule 024 2024 Discontinued(R eorder (will not trigger notification to Pharmacy)) nabumetone (Relafen) 750 MG tabletIndication s:Fibromyalgia Take 1 tablet (750 mg) by mouth if needed in the morning and at bedtime (pain). 60 tablet 2 025 2024 Discontinued(R eorder (will not trigger notification to Pharmacy)) sucralfate (Carafate) 1 g tabletIndication s:Gastroesophage al reflux disease without esophagitis Take 1 tablet (1 g) by mouth before breakfast, before lunch, before evening meal, and at bedtime. 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 Pt offered biopsy vs 6 mo f/up. Pt elected 6 mo f/up. BIRADS 3, repeat 6 mo. Erythromelalgia 08/18/2024 Polyarthralgia 08/18/2024 Assessment & Plan (11/04/2024 2:52 PM EDT): See M79.7 Nephrolithiasis 07/29/2024 Overview (07/29/2024): 04/15/24: US Renal Bl ordered by Brigid LUCERO. Identified bilateral nonobstructing kidney stones. History of nutritional disorder 07/27/2024 History of musculoskeletal disorder 07/27/2024 Hordeolum externum of left lower eyelid 07/24/19 25 Palpitations 05/17/2024 Overview (11/04/2024): Followed by [facility] Cards Continues on Propranolol 20mg 1-2x/day (through Cards) Assessment & Plan (11/04/2024 2:38 PM EDT): Consult Jul 2024 - cont current therapy Class 1 obesity with body ma ss index (BMI) of 32.0 to 32.9 in adult 05/17/2024 Assessment & Plan (07/29/2024 4:08 PM EST): - Cont following with supervisor advice and healthy lifestyle interventions Assessment & Plan [...] of medullary thyroid cancer or MEN 2. Molecular Genetic Pathologist referral offered. Recommended to decrease soda and [...] bruising easily 03/17/2024 Overview (03/17/2024): Followed by [facility] Heme/Onc - Dr. Sandra Per consult Jan 2024: extensive heme w/up including factor 7, 9, von Willebrand's profile. There were all normal. Suspect platelet function defect, which is common in young women. Bipolar disorder, unspecified 03/16/2024 Generalized anxiety disorder with panic attacks 03/16/2024 Overview (03/17/2024): Following with psych team Therapist: Cihoma Lundberg Psychiatrist: Dr. Auguste Reports current med regimen: Lorazepam 1mg BID Previous med regimen included: mirtazapine, paroxetine, and trazodone Assessment & Plan (03/16/2024 4:20 PM EDT): PROGRESS NOTE: ID: Ambika is a 39 y.o. White straight-identified cis-female with previous documented hx of Anxiety, Bipolar Disorder , and Trauma MH services including [facility] Psychotherapy psychopharmacology who presents for Bipolar, [...] disorder) 03/16/2024 Iron deficiency anemia 03/12/2024 Overview (11/04/2024): Lab Results Component Value Date HGB 9.4 (L) 10/08/2024 HGB 11.0 (L) 04/17/2021 HCT 31.0 (L) 10/08/2024 Following with [facility] Heme/Onc - Dr. Sandra Unable to tolerate PO iron supplements September 2024: received IV venofer 200mg weekly x 4 Assessment & Plan (11/04/2024 2:54 PM EDT): Plan to repeat labs 2 weeks as pt continues with vaginal bleeding, although has improved s/p IUD insertion Assessment & Plan (07/29/2024 3:40 PM EST): [...] Has consulted with Surgery team in [facility] for consideration of excision. Per [...] Has consulted with Surgery team in [facility] for consideration of excision. Per their consult Mar 2024, identified area has normal lobular fat, no discrete lipoma or nodules. Plan: conservative measures Abnormal uterine bleeding 12/27/2023 Overview (07/29/2024): Following with [facility] [employer] - Dr. Mooney EMB performed 04/14/24. Path: [...] Overview (05/17/2024): Lab Results Component Value Date QUSP96MOPCL 19.9 (L) 03/18/2024 [id number] 19 (A) 05/08/2023 - Cont Vit D 1000 units daily Assessment & Plan (03/17/2024 8:54 PM EDT): -Repeat Vit D lab -Cont with Vit D Assessment & Plan (07/23/2023 7:02 PM EST): On labs from 04/2023. Since she has arthralgias even on replacement dose, I will increase it to 50k U/w x 6m FU w PCP Healthcare maintenance 06/03/2023 Overview (02/01/2025): Pap: NILM, HPV neg 01/13/25 at [facility] [employer] Dental: [facility] Dental Last PE: 11/25/24 Hep B Immune: Mar 2024 Contraception: IUD (Mirena) placed 01/13/25 at [facility] [employer] Gastroesophageal reflux disease without esophagi tis 06/03/2023 Overview (06/03/2023): Followed by [facility] GI [place] JOYN Continues famotidine and Dexliant through GI Irritable bowel syndrome with constipation 06/03 Overview (03/17/2024): Followed up [facility] GI [place] [employer] Continues Bentyl TID Continues Bisacodyl 10mg nightly Dysphagia, oropharyngeal phase 06/03/2023 Overview (06/03/2023): Followed by [facility] GI [place] NABIL Kessler Gastroparesis 06/03/2023 Overview (03/17/2024): Followed by [facility] GI Continues with the following medication regimen for multiple GI symptoms and conditions: Creon, famotidine, psyllium, dicyclomine, simethicone, and Dexliant Previous medications: carafate NURIA positive 06/03/2023 Overview (07/29/2024): Previous followed by [facility] Rheum - Dr. Waters May 2024: Established with [facility] Rheum - Dr. Street NURIA positive 2019: 1:160, anti dna, nicholas, ESR, CRP all wnl Disorder of sesamoid bone of foot 06/03/2023 Overview (06/03/2023): -Left lateral sesamoid stress fx identified Jul 2022 at [facility] -Plan for immobilization in short walking boot and follow up 6 weeks Assessment & Plan (06/03/2023 10:28 PM EST): Plan to request latest records from [facility] and follow up with PCP to discuss eligibility handicap placard. Fibromyalgia 08/02/2022 Overview (11/04/2024): -Previously: Lyrica 75mg nightly through [facility] Physiatry/Rheum -Lyrica rx from PCP as of Apr 2024. Started on Lyrica 50mg nightly PRN. Increase to 75mg nightly on 07/29/24. -Following with psych team. -Tizanidine PRN muscle spasms. Reviewed med use and safety. Assessment & Plan (11/04/2024 2:52 PM EDT): -Encouraged use of pharm and non-pharm tx modalities Assessment & Plan (07/29/2024 3:51 PM EST): [...] Encounters Date Type Department Care Team Description 02/05/2025 Orders Only [facility] External Provider, [facility] 02/03/2025 Orders Only [facility] External Provider, [facility] 02/01/2025 3:30 PM EDT Office Visit [facility] MED & PEDS [address] [place] [address] Petra Wiley FNP Injury of left knee, subsequent encounter (Primary Dx) 02/01/2025 Travel 02/01/2025 Orders Only [facility] [address] [place] [address] Addie Campbell MD 01/29/2025 Telephone [facility] [address] [place] [address] Petra Wiley FNP chart prep 01/26/2025 1:00 PM EDT Clinical Support [facility] DIABETES/NUTRITION [address] [place] [id number] Class 1 obesity with serious comorbidity and body mass index (BMI) of 32.0 to 32.9 in adult, unspecified obesity type (Primary Dx) 01/26/2025 Travel 01/20/2025 Telephone [facility] MEDICINE [address] [place] [id number] Petra Wiley FNP Appointment Confirmation 01/19/2025 Telephone [facility] [address] [place] [phone] Jackie Bazzi MD 01/19/2025 Telephone [facility] MEDICINE [address] [place] [address] Petra Wiley FNP ER Follow-up 01/17/2025 Orders Only [facility] External Provider, [facility] 01/15/2025 11:15 AM EDT Office Visit [facility]ED[facility] [address] [place] [address] Jackie Bazzi MD Appendix disease (Primary Dx); Fibromyalgia; Gastroesophageal reflux disease without esophagitis; Gastroparesis; Gastroesophageal reflux disease without esophagitis 01/15/2025 Results Follow-Up [facility] MEDICINE [address] [place] [phone] Sylvia Lemons MD Bacterial Vaginosis, Chlamydia/N. Gonorrhoeae RNA, TMA, Urogenitial 01/15/2025 Travel 01/14/[address] [address] Petra Wiley FNP ER Follow-up 01/13/2025 Orders Only [facility]TERNAL DATA DEPARTMENT Provider, Generic External Data 01/08/[address] [address] Petra Wiley FNP Appointment Request 01/08/2025 Orders Only [facility] EXTERNAL DATA DEPARTMENT Provider, Generic External Data 01/07/2025 Refill [facility] P[facility] [address] [place] [address] Petra Wiley FNP Fibromyalgia 12/25/2024 2:00 PM EDT Office Visit [facility] ADULT DENTAL [address] [place] [phone] Venkat Barreto DDS 12/21/2024 Orders Only [address] [address] Jailene Vitale CNM 12/17/2024 1:00 PM EDT Office Visit [address] [address] Jailene Vitale CNM Labial cyst (Primary Dx) 12/17/2024 Travel 12/16/2024 Orders Only GENERIC EXTERNAL DATA DEPARTMENT Provider, Generic External Data 12/16/[address] [address] Jailene Vitale CNM chart prep 12/11/2024 1:00 PM EDT Clinical Support [facility] DIABETES/NUTRITION [address] [place] [phone] Tamanna Mcintyre, ANGELINA Class 1 obesity with body mass index (BMI) of 32.0 to 32.9 in adult, unspecified obesity type, unspecified whether serious comorbidity present (Primary Dx) 12/11/2024 Travel 12/03/2024 Refill [facility] & PEDS [address] [place] [address] Petra Wiley FNP Fibromyalgia 12/02/2024 Telephone [facility] & PED[facility] [address] [place] [address] Petra Wiley FNP Referral 12/01/2024 3:30 PM EDT Clinical Support [facility] DIABETES/NUTRITION [address] [place] [address] Class 1 obesity with body mass index (BMI) of 32.0 to 32.9 in adult, unspecified obesity type, unspecified whether serious comorbidity present (Primary Dx) 12/01/2024 2:00 PM EDT Office Visit [facility] ADULT DENTAL [address] [place] [address] Venkat Barreto DDS 12/01/2024 Travel 11/30/2024 Results Follow-Up [facility] MED [facility] PEDS [address] [place] [address] Petra Wiley FNP XR Hand 3+ Views Left 11/25/2024 9:15 AM EDT Office Visit [facility] MEDICINE [address] [place] [address] Petra Wiley FNP Encounter for routine history and physical examination of adult (Primary Dx); Healthcare maintenance; Left hand pain; Subcutaneous mass of both lower legs; Papule of skin 11/25/2024 Travel 11/23/2024 Results Follow-Up [facility] [address], [place] [phone] Shireen Eagle [place] POCT Hemoglobin, CBC auto differential, Pathologist Review Of Peripheral Smear, Additional followed-up results: 3 from Last 3 Months Immunizations Immunization Administration Dates Next Due HPV 9-Valent 02/27/2011 HPV, Quadrivalent 02/27/2011 Influenza injectable quadrivalent preservative f ree 04/20/2016,03/22/2015 Influenza, Split (incl. purified surface antigen ) 03/06/2013 Pneumococcal Conjugate PCV 20 05/13/2024 Td (adult), 5 Lf tetanus tox oid, preservative free, adsorbed 10/14/2015 Family History Medical History Relation Name Comments Diabetes Father Heart attack Father Hyperlipidemia Father Kidney failure Maternal Grandmother Diabetes Mother [...] Sign Reading Time Taken Comments Blood Pressure 138/76 02/01/2025 3:14 PM EDT Pulse 62 02/01/2025 3:14 PM EDT Temperature 36.7 C (98.1 F) 02/01/2025 3:14 PM EDT Respiratory Rate 14 02/01/2025 3:14 PM EDT Oxygen Saturation 99% 02/01/2025 3:14 PM EDT Inhaled Oxygen Concentration - - Weight 69.4 kg (153 lb) 02/01/2025 3:14 PM EDT Height 149.9 cm (4' 11 ) 02/01/2025 3:14 PM EDT Body Mass Index 30.9 02/01/2025 3:14 PM EDT Plan of Treatment Upcoming Encounters Date Type Department Care Team (Late st Contact Info) Description 02/23/2025 1:00 PM EDT Clinical Support [facility] DIABETES/NUTRITION [address] [place], [place] [phone] Tamanna Mcintyre, ANGELINA [address] [place], [place] [phone] Health Maintenance Due Date Last Done Comments Disability Screening 1985 HPV Vaccines (2 - 3-dose series) 03/27/2011 02/27/2011, 02/27/2011 Dental Oral Exam 06/27/2024 12/25/2023, 01/2024, 08/02/2022 Dental Prophylaxis 01/18/2025 07/20/2024, 0 12/25/2023, 06/25/2023, Additional history exists Influenza Vaccine (#1) 2025 6, 03/22/2015, 03/06/2013 Diagnostic Breast Imaging 03/04/20252024, 09/01/2024, 11/19/2023, Additional history exists Mammogram 03/04/2025 09/01/2024, 08/15, 11/19/2023, Additional history exists Alcohol/Substance Use Screening 03/16/2025 03/16/2024 SDOH Screening 03/16/2025 03/16/2024 COVID-19 Vaccine ( season) 2025 Postponed from 02/16/2024 (Patient Refused) Dental X-Ray: Bitewings 07/21/2025 07/20/19 25, 12/25/2023, 06/24/2023, Additional history exists Dental X-Ray: Full Mouth 08/03/2025 08/02/2022 DTaP/Tdap/Td Vaccines (1 - Tdap) 09/30/2025 10/14/2015 Postponed from 10/15/2015 (Other Medical Reasons) Depression Screening 11/25/2025 11/25/2024, 11/26/19 25 Family Planning (PISQ) 12/17/2025 12/17/2024 Tobacco Screening 12/25/2025 12/25/2024 Lipid Panel 11/26/2029 11/26/2024, 07/2023, 10/16/2023, Additional history exists Cervical Cancer Screening 01/13/2030 HPV/Cotest 01/13/2030 01/13/2025 Pap Smear 01/13/2030 01/13/2025, 09/16, 11/12/2019, Additional history exists Zoster Vaccines (1 of 2) 2037 RSV Patients and Patients Aged 60 years or older (1 - 1-dose 75+ series) 2062 HIV Screening Completed 03/18/2024, 11/30/2020 Hepatitis C Screening Completed 03/18/2024 Pneumococcal Vaccine: Pediatrics (0 to 5 Years) and At-Risk Patients (6 to 49) Years Completed 05/13/2024 HIB Vaccines Aged Out No [...] Associated Diagnosis Comments US PELVIS TRANSVAGINAL Routine 1:43 PM EDT US RENAL COMPLETE Routine 02/03/2025 1:3 4 PM EDT XR ELBOW 3+ VIEWS LEFT Routine 12:39 AM EDT XR KNEE 4+ VIEWS LEFT Routine 01/17/2025 12:26 AM EDT XR ELBOW 1-2 VIEWS LEFT Routine 01/16/2025 12:48 PM EDT PAP SMEAR Routine 01/13/2025 4:39 PM EDT HPV DNA, LOW/HIGH RISK Routine 4:39 PM EDT CHLAMYDIA/N. GONORRHOEAE RNA, TMA, UROGENITAL Routine 01/13/2025 3:31 PM EDT BACTERIAL VAGINOSIS PANEL Routine 01/13/2025 3:[address] ABDOMEN PELVIS W CONTRAST Routine 01/08/2025 8:17 AM EDT US PELVIS TRANSVAGINAL Routine 7:40 AM EDT URINALYSIS WITH REFLEX MICROSCOPIC Routine 01/08/2025 7:03 AM EDT HCG, TOTAL, QN Routine 01/08/2025 5:54 AM EDT LIPASE Routine 01/08/2025 5:54 AM EDT COMPREHENSIVE METABOLIC PANEL Routine 01/08/2025 5:54 AM EDT HIGH SENSITIVITY TROPONIN I Routine 01/08/2025 5:54 AM EDT CBC WITH AUTO DIFFERENTIAL Routine 01/08/2025 5:54 AM EDT CASE PRESENTATION, DETAILED AND EXTENSIVE TREATMENT PLANNING Routine 12/25/2024 2:00 PM EDT 14 CROWN - PORCELAIN/CERAMIC Routine 12/25/2024 2:[address] ABDOMEN PELVIS WO CONTRAST Routine 12/16/2024 3:24 PM EDT HCG, TOTAL, QN Routine 12/16/2024 3:20 PM EDT LIPASE Routine 12/16/2024 3:20 PM EDT COMPREHENSIVE METABOLIC PANEL Routine 12/16/2024 3:20 PM EDT URINALYSIS, COMPLETE, WITH REFLEX TO CULTURE Routine 12/16/2024 3:20 PM EDT CBC WITH AUTO DIFFERENTIAL Routine 12/16/2024 3:20 PM EDT CULTURE, URINE, ROUTINE Routine 12/16/2024 12:00 AM EDT RE-EVAL - POST-OP OFFICE VISIT Routine 12/01/2024 2:00 PM EDT HEMOGLOBIN A1C Routine 11/26/2024 2:45 PM EDT Healthcare maintenance COMPREHENSIVE METABOLIC PANEL Routine 11/26/2024 2:45 PM EDT Healthcare maintenance LIPID PANEL, STANDARD Routine 11/26/2024 2:45 PM EDT Healthcare maintenance XR HAND 3+ VIEWS LEFT Routine 11/25/2024 8:34 PM EDT Left hand pain LD Routine 11/19/2024 4:26 PM EDT Iron deficiency anemia, unspecified iron deficiency anemia type FERRITIN Routine 11/19/2024 4:26 PM EDT Iron deficiency anemia, unspecified iron deficiency anemia type IRON AND TOTAL IRON BINDING CAPACITY Routine 11/19/2024 4:26 PM EDT Iron deficiency anemia, unspecified iron deficiency anemia type PATHOLOGIST REVIEW - CBC Routine 11/19/2024 4:26 PM EDT Iron deficiency anemia, unspecified iron deficiency anemia type CBC WITH AUTO DIFFERENTIAL Routine 11/19/2024 4:26 PM EDT Iron deficiency anemia, unspecified iron deficiency anemia type BI MAMMOGRAM DIAGNOSTIC TOMOSYNTHESIS BILATERAL Routine 09/01/2024 12:30 PM EDT PROPHYLAXIS - ADULT Routine 07/20/2024 3 :00 [...] Routine 08/02/2022 1:00 PM EST Dental caries from Last 3 Months or Most Recently Relevant to Health Maintenance Results * US Pelvis Transvaginal (02/05/2025 1:43 PM EDT) Only the most recent of2 resultswithin the time period is included. Anatomical Region Laterality Modality Pelvis Ultrasound 02/05/2025 1:43 PM EDT Narrative 02/05/2025 2:29 PM EDT [place] [address] Ultrasound Report Signed Patient: Ambika Mcdermott MR#: [id number] : 1985 Acct:[id number] Age/Sex: 39 / F ADM Date: 02/05/25 Loc: HO.US Attending Dr: Vicente Mooney MD Ordering Physician: Vicente Mooney MD Date of Service: 02/05/25 Procedure(s): US pelvic and transvaginal Accession Number(s): [id number] cc: Petra Wiley; Vicente Mooney MD EXAMINATION: US PELVIS CLINICAL INFORMATION: N93.9 - Abnormal uterine and vaginal bleeding, unspecified COMPARISON: January 08, 2025 TECHNIQUE: Ultrasound of the pelvis is performed using both transabdominal and transvaginal transducers along with Doppler. Transvaginal imaging is performed due to inadequate visualization transabdominally. FINDINGS: Uterus: The uterus is anteverted and measures 8.9 x 2.9 x 4.2 cm. Shadowing IUD is present in the mid uterine cavity and is posteriorly displacement by the fundal fibroid. The double wall endometrial thickness is 8 mm. The upper uterine echogenicity is heterogeneous with hypoechoic areas. Anterior fundal intramural leiomyoma measures 1.6 x 1.6 x 1.7 cm previously 2.3 x 2.3 x 1.6 cm. Posterior upper uterine body intramural leiomyoma measures 1.0 x 0.7 x 0.9 cm previous study 1.0 x 0.9 x 1.27 cm. Adnexa: Left ovary is not visualized.. There is trace free fluid. Right ovary measures 4.3 x 2.0 x 1.8 cm. There is a 1.4 cm cyst with low level internal echogenicity consistent with proteinaceous debris requiring no further follow-up. US/US pelvic and transvaginal IMPRESSION: Fundal fibroid appears decreased in size and posterior upper body fibroid appears stable. There is posterior inferior displacement of an IUD by a fundal fibroid. Electronically signed by: Bassam Barnes MD 02/05/2025 02:26 PM EDT Dictated By: Bassam Barnes MD Signed By: <Electronically signed by Bassam Barnes MD in OV> 02/05/25 1426 DD/ 1343 TD/TT: 02/05/25 1355 [employer] Head: Procedure Note Donotuseinterpreter, Image - 02/05/[address] [address] Ultrasound Report Signed Patient: Ambika Mcdermott#: [id number] : 1985Acct:[id number] Age/Sex: 39 / FADM Date: 02/05/25 Loc: HO.US Attending Dr: Vicente Mooney MD Ordering Physician: Vicente Mooney MD Date of Service: 02/05/25 Procedure(s): US pelvic and transvaginal Accession Number(s): [id number] cc: Petra Wiley; Vicente Mooney MD EXAMINATION: US PELVIS CLINICAL INFORMATION: N93.9 - Abnormal uterine and vaginal bleeding, unspecified COMPARISON: January 08, 2025 TECHNIQUE: Ultrasound of the pelvis is performed using both transabdominal and transvaginal transducers along with Doppler. Transvaginal imaging is performed due to inadequate visualization transabdominally. FINDINGS: Uterus: The uterus is anteverted and measures 8.9 x 2.9 x 4.2 cm. Shadowing IUD is present in the mid uterine cavity and is posteriorly displacement by the fundal fibroid. The double wall endometrial thickness is 8 mm. The upper uterine echogenicity is heterogeneous with hypoechoic areas. Anterior fundal intramural leiomyoma measures 1.6 x 1.6 x 1.7 cm previously 2.3 x 2.3 x 1.6 cm. Posterior upper uterine body intramural leiomyoma measures 1.0 x 0.7 x 0.9 cm previous study 1.0 x 0.9 x 1.27 cm. Adnexa: Left ovary is not visualized.. There is trace free fluid. Right ovary measures 4.3 x 2.0 x 1.8 cm. There is a 1.4 cm cyst with low level internal echogenicity consistent with proteinaceous debris requiring no further follow-up. US/US pelvic and transvaginal IMPRESSION: Fundal fibroid appears decreased in size and posterior upper body fibroid appears stable. There is posterior inferior displacement of an IUD by a fundal fibroid. Electronically signed by: Bassam Barnes MD 02/05/2025 02:26 PM EDT Dictated By: Bassam Barnes MD Signed By: <Electronically signed by Bassam Barnes MD in OV> 02/05/25 1426 DD/ 1343 TD/TT: 02/05/25 1355 [employer] Head: us [facility] External Provider IMG US PROCEDURES Final Result * US Renal Complete (02/03/2025 1:34 PM EDT) Anatomical Region Laterality Modality Kidney Ultrasound 02/03/2025 1:34 PM EDT Narrative 02/03/2025 3:08 PM EDT [place] [address] Ultrasound Report Signed Patient: Ambika Mcdermott MR#: [id number] : 1985 Acct:[id number] Age/Sex: 39 / F ADM Date: 02/03/25 Loc: HO.US Attending Dr: Brigid LUCERO- Ordering Physician: Brigid Guy Date of Service: 02/03/25 Procedure(s): US renal BI Accession Number(s): [id number] cc: Brigid Guy; Petra Wiley EXAMINATION: US RETROPERITONEAL LIMITED (RENAL ONLY) CLINICAL INFORMATION: Calculus of kidney. COMPARISON: 10/26/[address] abdomen and pelvis 01/08/2025. TECHNIQUE: Real-time imaging of the kidneys. FINDINGS: RIGHT KIDNEY: 10.6 x 4.1 x 5.4 cm (SAG x AP x TRV). The kidney is normal in size, contour, and echogenicity. Renal cortical thickness is normal. No suspicious parenchymal lesion. No hydronephrosis. There are 3 nonobstructing calculi, largest in the upper pole measuring 4 x 2 x 3 mm. LEFT KIDNEY: 11.2 x 4.2 x 4.2 cm (SAG x AP x TRV). The kidney is normal in size, contour, and echogenicity. Renal cortical thickness is normal. No suspicious parenchymal lesion. No hydronephrosis. There are 2 nonobstructing calculi, the largest in the upper pole measuring 3 x 2 x 2 mm. US/US renal BI IMPRESSION: Bilateral nonobstructing nephrolithiasis. Electronically signed by: Mauricio Veliz MD 02/03/2025 03:05 PM EDT Dictated By: Mauricio Veliz MD Signed By: <Electronically signed by Mauricio Veliz MD in OV> 02/03/25 1505 DD/ 1334 TD/TT: 02/03/25 1344 [employer] Cook Head: Procedure Note Donotuseinterpreter, Image - 02/03/[address] [address] Ultrasound Report Signed Patient: Ambika McdermottMR#: [id number] : 1985Acct:[id number] Age/Sex: 39 / FADM Date: 02/03/25 Loc: HO.US Attending Dr: Brigid LUCERO-MITRA Ordering Physician: Brigid Guy Date of Service: 02/03/25 Procedure(s): US renal BI Accession Number(s): [id number] cc: Brigid Guy-BC; Petra Wiley EXAMINATION: US RETROPERITONEAL LIMITED (RENAL ONLY) CLINICAL INFORMATION: Calculus of kidney. COMPARISON: 10/26/[address] abdomen and pelvis 01/08/2025. TECHNIQUE: Real-time imaging of the kidneys. FINDINGS: RIGHT KIDNEY: 10.6 x 4.1 x 5.4 cm (SAG x AP x TRV). The kidney is normal in size, contour, and echogenicity. Renal cortical thickness is normal. No suspicious parenchymal lesion. No hydronephrosis. There are 3 nonobstructing calculi, largest in the upper pole measuring 4 x 2 x 3 mm. LEFT KIDNEY: 11.2 x 4.2 x 4.2 cm (SAG x AP x TRV). The kidney is normal in size, contour, and echogenicity. Renal cortical thickness is normal. No suspicious parenchymal lesion. No hydronephrosis. There are 2 nonobstructing calculi, the largest in the upper pole measuring 3 x 2 x 2 mm. US/US renal BI IMPRESSION: Bilateral nonobstructing nephrolithiasis. Electronically signed by: Mauricio Veliz MD 02/03/2025 03:05 PM EDT Dictated By: Mauricio Veliz MD Signed By: <Electronically signed by Mauricio Veliz MD in OV> 02/03/25 1505 DD/ 1334 TD/TT: 02/03/25 1344 [employer] Cook Head: us [facility] External Provider IMG US PROCEDURES Final Result * XR Elbow 3+ Views Left (01/17/2025 12:39 AM EDT) Anatomical Region Laterality Modality Upper Extremities, Elbow Left Radiogr aphic Imaging 01/17/2025 12:3 9 AM EDT Narrative 01/17/2025 12:40 AM EDT [address] [address] XRay Report Signed Patient: Ambika Mcdermott MR#: [id number] : 1985 Acct:[id number] Age/Sex: 39 / F ADM Date: 01/17/25 Loc: HO.ED Attending Dr: Ordering Physician: Generic ED Physician Date of Service: 01/16/25 Procedure(s): XR elbow LT min 3V Accession Number(s): [id number] cc: Generic ED Physician; Petra Wiley CLINICAL HISTORY: fall 3 view left elbow Comparison: None provided Findings: No acute fractures. Normal alignment. No significant loss of joint space, osteophytes, or erosions. No joint effusion. No radiopaque foreign body. IMPRESSION: 1. No acute findings. This document has been electronically signed by: Paul Escobedo MD on 01/17/2025 00:39:00 Dictated By: Paul Escobedo MD Signed By: <Electronically signed by Paul Escobedo MD in OV> 01/17/2538 DD/ TD/TT: 01/17/2538 [employer] Head: Procedure Note Donotuseinterpreter, Image - 01/17/[address] [address] XRay Report Signed Patient: Ambika McdermottMR#: [id number] : 1985Acct:[id number] Age/Sex: 39 / FADM Date: 01/17/25 Loc: HO.ED Attending Dr: Ordering Physician: Generic ED Physician Date of Service: 01/16/25 Procedure(s): XR elbow LT min 3V Accession Number(s): [id number] cc: Generic ED Physician; Petra Wiley CLINICAL HISTORY: fall 3 view left elbow Comparison: None provided Findings: No acute fractures. Normal alignment. No significant loss of joint space, osteophytes, or erosions. No joint effusion. No radiopaque foreign body. IMPRESSION: 1. No acute findings. This document has been electronically signed by: Paul Escobedo MD on 01/17/2025 00:39:00 Dictated By: Paul Escobedo MD Signed By: <Electronically signed by Paul Escobedo MD in OV> 01/17/2538 DD/ TD/TT: 01/17/2538 [employer] Cook Head: [facility] External Provider IMG XR PROCEDURES Final Result * XR Knee 4+ Views Left (01/17/2025 12:26 AM EDT) Anatomical Region Laterality Modality Lower Extremities, Knee Left Radiogra phic Imaging 01/17/2025 12:2 6 AM EDT Narrative 01/17/2025 12:28 AM EDT [place] [address] XRay Report Signed Patient: Ambika Mcdermott MR#: [id number] : 1985 Acct:[id number] Age/Sex: 39 / F ADM Date: 01/17/25 Loc: .ED Attending Dr: Ordering Physician: Generic ED Physician Date of Service: 01/16/25 Procedure(s): XR knee LT 4V Accession Number(s): [id number] cc: Generic ED Physician; Petra Wiley CLINICAL HISTORY: fall 4 view left knee Comparison: None provided Findings: No fractures or dislocations. No significant loss of joint space, osteophytes, or erosions. No joint effusion. No radiopaque foreign body. Anterior soft tissue swelling. IMPRESSION: 1. No acute fracture. This document has been electronically signed by: Paul Escobedo MD on 01/17/2025 00:26:41 Dictated By: Paul Escobedo MD Signed By: <Electronically signed by Paul Escobedo MD in OV> 01/17/2526 DD/ TD/TT: 01/17/2525 [employer] Head: Procedure Note pEi, Image - 01/17/[address] [address] XRay Report Signed Patient: Ambika McdermottMR#: [id number] : 1985Acct:[id number] Age/Sex: 39 / FADM Date: 01/17/25 Loc: .ED Attending Dr: Ordering Physician: Generic ED Physician Date of Service: 01/16/25 Procedure(s): XR knee LT 4V Accession Number(s): [id number] cc: Generic ED Physician; Petra Wiley CLINICAL HISTORY: fall 4 view left knee Comparison: None provided Findings: No fractures or dislocations. No significant loss of joint space, osteophytes, or erosions. No joint effusion. No radiopaque foreign body. Anterior soft tissue swelling. IMPRESSION: 1. No acute fracture. This document has been electronically signed by: Paul Escobedo MD on 01/17/2025 00:26:41 Dictated By: Paul Escobedo MD Signed By: <Electronically signed by Paul Escobedo MD in OV> 01/17/2526 DD/ TD/TT: 01/17/2525 [employer] Cook Head: [facility] External Provider IMG XR PROCEDURES Final Result * XR Elbow 1-2 Views Left (01/16/2025 12:48 PM EDT) Anatomical Region Laterality Modality Upper Extremities, Elbow Left Radiogr aphic Imaging Historical Provider IMToyin XR PROCEDURES Final R esult * HPV DNA, Low/High Risk (01/13/2025 4:39 PM EDT) HPV High Risk Negative Negative [facility] HPV Genotype 16 Negative Negative [facility] HPV Genotype 18 Negative Negative [facility] Comment:HPV testing performe d at [facility] (CLIA#[id number]), [address] [place] [id number].Testing for HPV was performed using the Mirela SRI 6800system. The presence of HPV in the female genital tract isassociated with a number of diseases, including cervicalcarcinoma. The HPV DNA high risk pool tests for HPV 31, 33,35, 39, 45, 51, 52, 56, 58, 59, 66 and 68. The testing forHPV 16 and 18 genotypes has also been performed. A positiveresult indicates detection of nucleic acid sequences fromone or more subtypes, whereas a negative result indicatessuch sequences were not detected. 01/13/2025 4:39 PM EDT 01/14/2025 1:27 PM EDT us Generic External Data Provider LAB BLOOD ORDERAB LES Final Result Performing Organization Address City/State/[facility] Co de Phone Number [facility] [address] [place] [phone] * Pap Smear (01/13/2025 4:39 PM EDT) 01/13/2025 4:39 PM EDT 01/14/2025 1:27 PM EDT Narrative [facility] - 01/21/2025 10:02 AM EDT ----- ------- Name: Ambika Mcdermott Age/Sex: 39/F : 1985 Unit#: [id number] Attend Dr: Vicente Mooney MD Re01/13/25 Status: DEP REF Location: [facility] Disch: ----- ------- SPEC : [id number] RECD: 01/14/25 STATUS: [place] IQBAL NUM: [id number] BILLY: 01/13/25 [facility] [address]: Vicente Mooney MD ENTERED: 01/14/25 SP TYPE: Pap Smr OT DR: Petra Wiley OPTOMETRY PROFESSOR ORDERED: Pap Smear Interpretation Satisfactory for evaluation. Negative for intraepithelial lesion or malignancy. HPV High Risk: Negative HPV Genotyping 16: Negative HPV Genotyping 18: Negative Clinical Information LMP: IUD Previous PAP test: 10/07/2024, Unknown findings Other history: Abnormal uterine bleeding, malpositioned intrauterine device Material Received ThinPrep-Cervical PAP Disclaimer As of April 08, 2024, the technical services to include automated prescreening performed by the ThinPrep Imaging System, PAP screening and HPV testing will be performed at [facility] (CLIA #[id number]), [address] [place] [address]. Testing for HPV was performed using the Mirela SRI 6800 system. The presence of HPV in the female genital tract is associated with a number of diseases, including cervical carcinoma. The HPV DNA high risk pool tests for HPV 31, 33, 35, 39, 45, 51, 52, 56, 58, 59, 66 and 68. The testing for HPV 16 and 18 genotypes has also been performed. A positive result indicates detection of nucleic acid sequences from one or more subtypes, whereas a negative result indicates such sequences were not detected. All professional services are performed by [facility] ([address] [place] [address], [place] [address]; ; CLIA #[id number]). The PAP Test is a screening procedure with the inherent possibility of both false negative and false positive results. Results should be interpreted in the context of historic and current clinical findings. Reliability of the PAP Test is enhanced by performing the test on a regular repetitive basis. CONTINUED ON NEXT PAGE ----- ------- Name: Ambika Mcdermott Age/Sex: 39/F : 1985 Unit#: [id number] Attend Dr: Vicente Mooney MD Re01/13/25 Status: [facility] Location: [facility] Disch: ----- ------- SPEC : [id number] RECD: 01/14/25-1327 STATUS: [place]LIM[place]IA IQBAL NUM: [id number] BILLY: 01/13/25-163 [facility] [address]: Vicente Mooney MD ENTERED: 01/14/25-1656 SP TYPE: Pap Smr OTHR DR: Petra Wiley ORDERED: Pap Smear Copies To: Petra Wiley [address] [place] [address] Vicente Mooney MD [facility] [address] [place] [address] [place] [phone] ----- ------- Signed (signature on file) SIOMARA Portillo (ASCP) 01/21/25 1002 ----- ------- END OF REPORT Generic External Data Provider LAB CYTOLOGY ORDE RABLES Final Result Performing Organization Address [facility] Co de Phone Number [facility] [address] [place] [phone] * (ABNORMAL) Bacterial Vaginosis (01/13/2025 3:31 PM EDT) TRICHOMONAS VAGINALIS DETECTION BY PCR NOT DETECTED Not Detect [facility] BACTERIAL VAGINOSIS DETECTION BY PCR NEGATIVE Negative [facility] Comment:The BV organism targ ets of the Xpert Xpress MVP test can becommensal in women; Xpert Xpress MVP positive results forbacterial vaginosis should be considered in conjunction withother clinical and patient information to determine thedisease status. Organisms that are not detected by the XpertXpress MVP test have also been reported to be associatedwith BV and aerobic vaginitis.The Xpert Xpress MVP test performance has not been evaluatedin patients under the age of 14. EVA GROUP DETECTION BY PCR DETECTED(A) Not Detect [facility] Eva glab krusei PCR NOT DETECTED Not Detect [facility] 01/13/2025 3:31 PM EDT 01/14/2025 12:22 PM EDT Generic External Data Provider LAB MICROBIOLOGY - GENERAL ORDERABLES Final Result Performing Organization Address [facility] Co de Phone Number [facility] [address] [place] [phone] * Chlamydia/N. Gonorrhoeae RNA, TMA, Urogenitial (01/13/2025 3:31 PM EDT) CT PCR NOT DETECTED Not Detect. [facility] Comment:A not detected test result [...] PCR NOT DETECTED Not Detect. [facility] Comment:A not detected test result [...] lead to adverse medical, social or psychologicalconsequences. 01/13/2025 3:31 PM EDT 01/14/2025 12:22 PM EDT us Generic External Data Provider LAB MICROBIOLOGY - GENERAL ORDERABLES Final Result [facility] [address] [place] [phone] * CT Abdomen Pelvis w/ Contrast (01/08/2025 8:17 AM EDT) Anatomical Region Laterality Modality Body, Pelvis, Abdomen Computed T omography 01/08/2025 8:17 AM EDT Narrative 01/08/2025 9:56 AM EDT [address] [address] [address] Scan Report Signed Patient: Ambika Mcdermott MR#: [id number] : 1985 Acct:[id number] Age/Sex: 39 / F ADM Date: 01/08/25 Loc: HO.ED Attending Dr: Ordering Physician: Mateo Escobedo MD Date of Service: 01/08/25 Procedure(s): CT abdomen pelvis w IV con Accession Number(s): [id number] cc: Mateo Escobedo MD; Petra Wiley [facility] Report Number: [id number]: Total DLP = 543.00 mGy-cm EXAMINATION: CT ABDOMEN PELVIS WITH IV CONTRAST HISTORY: severe lower abd TTP, guarding. COMPARISON: Comparison is made with the prior examination dated 12/16/2024. TECHNIQUE: CT scan of the abdomen and pelvis was performed following administration of 85 mL Omnipaque 350 using standard departmental protocol. Coronal and sagittal reformatted images were generated and reviewed. Oral contrast material was not administered at the request of the referring physician. This CT exam was performed with one or more of the following dose reduction techniques: automated exposure control, adjustment of the mA and/or kV according to patient size, use of iterative reconstruction technique. DLP: 543 mGy-cm FINDINGS: LOWER CHEST: The visualized lung bases are clear. There is no pleural effusion. CARDIOVASCULATURE: The heart is normal in size. There is no pericardial effusion. LIVER: The liver is normal in size and contour. Again seen is a 10 mm probable cyst in the right lobe. The hepatic and portal veins are patent. GALLBLADDER / BILE DUCTS: The gallbladder is unremarkable. There is no intra or extrahepatic biliary ductal dilatation. SPLEEN: The spleen is normal in size. No focal splenic lesion is identified. PANCREAS: The pancreas is unremarkable in appearance. ADRENAL GLANDS: Within normal limits. KIDNEYS/RETROPERITONEUM: The kidneys demonstrate lobulated contours. No renal calculi are identified. There is no hydronephrosis. No renal masses are identified. LYMPH NODES: No abdominal or pelvic lymphadenopathy. VASCULATURE: The abdominal aorta is normal in caliber. MESENTERY/PERITONEUM: There is a small amount of free fluid in the cul-de-sac. No masses. There is no free intraperitoneal gas. STOMACH: The stomach is collapsed, limiting evaluation. SMALL BOWEL: The small bowel is normal in caliber. COLON: The colon is unremarkable. APPENDIX: A tiny appendicolith is seen at the base of the appendix. The appendix is mildly prominent, but demonstrates intraluminal gas without periappendiceal inflammatory stranding to suggest acute appendicitis. URINARY BLADDER/PELVIC ORGANS: The urinary bladder is unremarkable. And IUD is noted in the endometrial cavity of the uterus. There is an involuting 1.4 cm right ovarian cyst versus follicle. The left ovary is unremarkable. BONES / SOFT TISSUES: No suspicious bony or soft tissue abnormalities. CT/CT abdomen pelvis w IV con IMPRESSION: 1. Mildly prominent appendix demonstrating an appendicolith, without periappendiceal inflammatory stranding. If the patient's symptoms do not improve, a follow-up study may be helpful. 2. Involuting 1.4 cm right ovarian cyst versus follicle. Small amount of free fluid in the cul-de-sac. Electronically signed by: Corky Priest MD 01/08/2025 09:53 AM EDT Dictated By: Corky Priest MD Signed By: <Electronically signed by Corky Priest MD in OV> 01/08/25 0953 DD/ 0817 TD/TT: 01/08/25 0937 [employer] Cook Head: Procedure Note Donotuseinterpreter, Image - 01/08/[address] [address] [address] Scan Report Signed Patient: Ambika McdermottMR#: [id number] : 1985Acct:[id number] Age/Sex: 39 / FADM Date: 01/08/25 Loc: HO.ED Attending Dr: Ordering Physician: Mateo Escobedo MD Date of Service: 01/08/25 Procedure(s): CT abdomen pelvis w IV con Accession Number(s): [id number] cc: Mateo Escobedo MD; Petra Wiley [facility] Report Number: [id number]: Total DLP = 543.00 mGy-cm EXAMINATION: CT ABDOMEN PELVIS WITH IV CONTRAST HISTORY: severe lower abd TTP, guarding. COMPARISON: Comparison is made with the prior examination dated 12/16/2024. TECHNIQUE: CT scan of the abdomen and pelvis was performed following administration of 85 mL Omnipaque 350 using standard departmental protocol. Coronal and sagittal reformatted images were generated and reviewed. Oral contrast material was not administered at the request of the referring physician. This CT exam was performed with one or more of the following dose reduction techniques: automated exposure control, adjustment of the mA and/or kV according to patient size, use of iterative reconstruction technique. DLP: 543 mGy-cm FINDINGS: LOWER CHEST: The visualized lung bases are clear. There is no pleural effusion. CARDIOVASCULATURE: The heart is normal in size. There is no pericardial effusion. LIVER: The liver is normal in size and contour. Again seen is a 10 mm probable cyst in the right lobe. The hepatic and portal veins are patent. GALLBLADDER / BILE DUCTS: The gallbladder is unremarkable. There is no intra or extrahepatic biliary ductal dilatation. SPLEEN: The spleen is normal in size. No focal splenic lesion is identified. PANCREAS: The pancreas is unremarkable in appearance. ADRENAL GLANDS: Within normal limits. KIDNEYS/RETROPERITONEUM: The kidneys demonstrate lobulated contours. No renal calculi are identified. There is no hydronephrosis. No renal masses are identified. LYMPH NODES: No abdominal or pelvic lymphadenopathy. VASCULATURE: The abdominal aorta is normal in caliber. MESENTERY/PERITONEUM: There is a small amount of free fluid in the cul-de-sac. No masses. There is no free intraperitoneal gas. STOMACH: The stomach is collapsed, limiting evaluation. SMALL BOWEL: The small bowel is normal in caliber. COLON: The colon is unremarkable. APPENDIX: A tiny appendicolith is seen at the base of the appendix. The appendix is mildly prominent, but demonstrates intraluminal gas without periappendiceal inflammatory stranding to suggest acute appendicitis. URINARY BLADDER/PELVIC ORGANS: The urinary bladder is unremarkable. And IUD is noted in the endometrial cavity of the uterus. There is an involuting 1.4 cm right ovarian cyst versus follicle. The left ovary is unremarkable. BONES / SOFT TISSUES: No suspicious bony or soft tissue abnormalities. CT/CT abdomen pelvis w IV con IMPRESSION: 1. Mildly prominent appendix demonstrating an appendicolith, without periappendiceal inflammatory stranding. If the patient's symptoms do not improve, a follow-up study may be helpful. 2. Involuting 1.4 cm right ovarian cyst versus follicle. Small amount of free fluid in the cul-de-sac. Electronically signed by: Corky Priest MD 01/08/2025 09:53 AM EDT Dictated By: Corky Priest MD Signed By: <Electronically signed by Corky Priest MD in OV> 01/08/25 0953 DD/ 0817 TD/TT: 01/08/25 0937 [employer] Cook Head: [facility] External Provider IMG CT PROCEDURES Edited Result - Final * Urinalysis w/reflex microscopic (01/08/2025 7:03 AM EDT) Color Urine Yellow [facility] Appearance Urine Clear [facility] PH 5.5 5.0 - 9.0 [facility] Glucose Urine UA Negative Negative mg/dL [facility] Urine Blood Negative Negative [facility] Specific [place] - Urine 1.020 1.005 - 1.025 [facility] Urine Protein Negative Neg-Trace mg/dL [facility] Urine Ketones Negative Negative mg/dL [facility] Nitrite Urine Negative Negative [facility] Leukocyte Esterase Urine Negative Negative [facility] 01/08/2025 7:03 AM EDT 01/08/2025 7:08 AM EDT Narrative [facility] - 01/08/2025 7:33 AM EDT Urine, Clean Catch Generic External Data Provider LAB URINE ORDERAB LES Final Result Performing Organization Address [facility] Co de Phone Number [facility] [address] [place] [phone] * High Sensitivity Troponin I (01/08/2025 5:54 AM EDT) [facility] TROPONIN I HIGH SENSITIVITY <2.7 <3.5 - 17.0 ng/L [facility] Comment:[place] high sens itivity Troponin-I results should beused in conjunction with other diagnostic information suchas ECG, clinical observations and information, and patientsymptoms to aid in the diagnosis of ME. 01/08/2025 5:54 AM EDT 01/08/2025 5:59 AM EDT Generic External Data Provider LAB BLOOD ORDERAB LES Final Result Performing Organization Address [facility] de Phone Number [facility] [address] [place] [phone] * (ABNORMAL) CBC auto differential (01/08/2025 5:54 AM EDT) Only the most recent of3 resultswithin the time period is included. [facility] White Blood Count 12.4(H) 4.8 - 10.8 X10*3/uL [facility] Red Blood Count 4.99 4.20 - 5.50 X10*6/uL [facility] Hemoglobin 13.2 12.0 - 16.0 g/dl [facility] Hematocrit 41.4 37.0 - 47.0 % [facility] Mean Corpuscular Volume 83.0 80.0 - 98.0 fL [facility] Mean Corpuscular Hemoglobin 26.5(L) 27.0 - 33.0 pg [facility] Mean Corpuscular HGB Conc 31.9 31.0 - 35.0 g/dl [facility] Red Cell Distribution Width 15.3 11.0 - 16.0 % [facility] Platelet Count 271 160 - 400 X10*3/uL [facility] Mean Platelet Volume 11.2 9.4 - 12.3 fL [facility] Neutrophils Percent Auto 77.5(H) 45 - 73 % [facility] Imm Gran Pct Auto 1.1(H) 0.0 - 0.4 % [facility] Lymphocytes Percent Auto 15.0(L) 20 - 40 % [facility] Monocytes Percent Auto 5.2 2 - 11 % [facility] Eosinophils Percent Auto 0.8 0 - 4 % [facility] Basophils Percent Auto 0.4 0 - 2 % [facility] NRBC Pct Auto 0.0 0.0 - 0.2 /100WBC [facility] Neutrophils Absolute Auto 9.6(H) 2.0 - 8.3 x10*3/uL [facility] Imm Gran Abs Auto 0.14(H) 0.00 - 0.03 X10*3/uL [facility] Lymphocytes Absolute Auto 1.9 1.2 - 4.9 X10*3/uL [facility] Monocytes Absolute Auto 0.6 0.1 - 1.2 X10*3/uL [facility] Eosinophils Absolute Auto 0.1 0.0 - 0.4 X10*3/uL [facility] Basophils Absolute Auto 0.1 0.0 - 0.2 X10*3/uL [facility] NRBC Abs Auto 0.000 0.0 - 0.012 X10*3/uL [facility] 01/08/2025 5:54 AM EDT 01/08/2025 5:59 AM EDT us Generic External Data Provider LAB BLOOD ORDERAB LES Final Result [facility] [address] [place] [address] [phone] * hCG, Total, Quantitative (01/08/2025 5:54 AM EDT) Only the most recent of2 resultswithin the time period is included. HCG Quantitative <2 mIU/mL [facility] Comment:Weeks post LMP Appro ximate hCG(Last Menstrual Period) Range (mIU/ml)3 - 4 weeks 9 - 1304 - 5 weeks 75 - 2,6005 - 6 weeks 850 - 20,8006 - 7 weeks 4000 - 100,2007 - 12 weeks 11,500 - 289,51697 - 16 weeks 18,300 - 137,46429 - 29 weeks (2nd trimester) 1,400 - 53,11894 - 41 weeks (3rd trimester) 940 - 60,000[place] B- hCG assay is used for the early detection ofpregnancy; it cannot be used to diagnose any conditionunrelated to . If a B-hCG level is not supportedby the clinical evidence, results should be confirmed by analternative method (qualitative urine hCG, for example). 01/08/2025 5:54 AM EDT 01/08/2025 5:59 AM EDT Generic External Data Provider LAB BLOOD ORDERAB LES Final Result Performing Organization Address City/[facility]/ZIP Co de Phone Number [facility] [address] [place] [phone] * Lipase (01/08/2025 5:54 AM EDT) Only the most recent of2 resultswithin the time period is included. Lipase 28 8 - 78 U/L [facility] 01/08/2025 5:54 AM EDT 01/08/2025 5:59 AM EDT Generic External Data Provider LAB BLOOD ORDERAB LES Final Result Performing Organization Address City/[facility]/ZIP Co de Phone Number [facility] [address] [place] [phone] * (ABNORMAL) Comprehensive Metabolic Panel (01/08/2025 5:54 AM EDT) Only the most recent of3 resultswithin the time period is included. Sodium 140 135 - 145 mmol/L [facility] Potassium 3.9 3.3 - 5.1 mmol/L [facility] Chloride 109(H) 96 - 108 mmol/L [facility] Carbon Dioxide 24 22 - 29 mmol/L [facility] Anion Gap 11(L) 12 - 20 [facility] Urea Nitrogen (BUN) 8(L) 9 - 16 mg/dL [facility] Creatinine, Serum 0.61 0.5 - 1.4 mg/dL [facility] Creatinine Clr Calc Pharmacy 111.6 [facility] Comment:Provided height and weight: 152.4 cm,71.8 kg.eGFR (calculated from the MDRD study equation) and eCrCl(calculated from the Cockcroft-Gault equation) are based ondifferent parameters and may not yield comparable results.If eCrCl result is absurd, please check patient'sheight/weight. Estimated Glomerular Filt Rate >60 [facility] Comment:Chronic Kidney Disea se: Estimated GFR < 60 mL/min/1.54x9Htgffw Kidney Disease: Estimated GFR < 15 mL/min/1.73m2 Glucose 111 60 - 115 mg/dL [facility] Calcium 9.2 8.4 - 10.2 mg/dL [facility] Bilirubin, Total 0.2 0.0 - 1.0 mg/dL [facility] Aspartate Amino Transferase 18 5 - 31 U/L [facility] Alanine Aminotransferase 19 0 - 31 U/L [facility] Total Protein 7.5 6.5 - 8.0 g/dL [facility] Albumin Level 4.6 3.5 - 5.0 g/dL [facility] Alkaline Phosphatase 68 39 - 117 U/L [facility] 01/08/2025 5:54 AM EDT 01/08/2025 5:59 AM EDT us Generic External Data Provider LAB BLOOD ORDERAB LES Final Result [facility] [address] [place] [address] [phone] * CT Abdomen Pelvis w/o Contrast (12/16/2024 3:24 PM EDT) Anatomical Region Laterality Modality Body, Pelvis, Abdomen Computed T omography 12/16/2024 3:24 PM EDT Narrative 12/16/2024 5:00 PM EDT [address] [address] [address] Scan Report Signed Patient: Ambika Mcdermott MR#: [id number] : 1985 Acct:[id number] Age/Sex: 39 / F ADM Date: 12/16/24 Loc: HO.ED Attending Dr: Ordering Physician: Osman [place] MD Date of Service: 12/16/24 Procedure(s): CT abdomen pelvis wo IV con Accession Number(s): [id number] cc: Osman [place] MD; Petra Wiley OPTOMETRY PROFESSOR Report Number: [id number]: Total DLP = 553.00 mGy-cm EXAMINATION: CT ABDOMEN AND PELVIS WITHOUT CONTRAST CLINICAL INFORMATION: Right lower quadrant pain DLP: 553 mGY*cm COMPARISON: Renal ultrasound October 26, 2024 TECHNIQUE: Multidetector volumetric imaging was performed from the superior aspect of the liver through the pubic symphysis. Sagittal and coronal reformatted images were obtained on the technologist's workstation. This CT examination was performed using dose optimization techniques as appropriate, variously including the following: *Automated exposure control *Adjustment of mA and/or kV according to patient size (this includes techniques or standardized protocols for targeted exams where dose is matched to indication/reason for exam; i.e. extremities or head) *Use of iterative reconstruction technique FINDINGS: LUNG BASES: The visualized lung bases are unremarkable. LIVER, GALLBLADDER, AND BILIARY TREE: 4 x 8 mm hypoattenuating lesion in the posterior superior right hepatic segment. It is too small to characterize but probably represents a cyst or hemangioma. The gallbladder is unremarkable with no evidence of radiopaque gallstones, gallbladder wall thickening, or obvious pericholecystic inflammatory changes. PANCREAS: Unremarkable. SPLEEN: Unremarkable. ADRENAL GLANDS: Unremarkable. KIDNEYS AND URETERS: 2 punctate calcifications in the right kidney may represent stones. 2 Punctate calcifications in the left kidney likely represent stones. There is no hydronephrosis or ureteral stones. BLADDER: Unremarkable. GASTROINTESTINAL TRACT: The small and large bowel are unremarkable. The appendix is unremarkable. ABDOMINAL WALL: Small periumbilical hernia contains fat, no change LYMPH NODES: Normal. VASCULAR: Unremarkable. PELVIC VISCERA: There is an IUD within the upper uterine canal. There is a right adnexal mass with mixed density. There is fluid density in the upper two thirds and higher density in the lower third suggesting proteinaceous debris. Left adnexa is unremarkable. There is a small amount of free fluid in the cul-de-sac. OSSEOUS STRUCTURES: Unremarkable. CT/CT abdomen pelvis wo IV con IMPRESSION: Probable hemorrhagic right ovarian cyst measuring 3.8 cm long axis. Follow up is not indicated. A few punctate stones are present in both kidneys, no hydronephrosis is present. Fleischner guidelines were followed. Electronically signed by: Bassam Barnes MD 12/16/2024 04:57 PM EDT RP Dictated By: Bassam Barnes MD Signed By: <Electronically signed by Bassam Barnes MD in OV> 12/16/24 1657 DD/ 1524 TD/TT: 12/16/24 1635 [employer] Cook Head: Procedure Note Donotuseinterpreter, Image - 12/16/[address] [place] [address] [address] Scan Report Signed Patient: Ambika McdermottMR#: [id number] : 1985Acct:[id number] Age/Sex: 39 / FADM Date: 12/16/24 Loc: HO.ED Attending Dr: Ordering Physician: Osman [place] MD Date of Service: 12/16/24 Procedure(s): CT abdomen pelvis wo IV con Accession Number(s): [id number] cc: Osman [place] MD; Petra Wiley OPTOMETRY PROFESSOR Report Number: [id number]: Total DLP = 553.00 mGy-cm EXAMINATION: CT ABDOMEN AND PELVIS WITHOUT CONTRAST CLINICAL INFORMATION: Right lower quadrant pain DLP: 553 mGY*cm COMPARISON: Renal ultrasound October 26, 2024 TECHNIQUE: Multidetector volumetric imaging was performed from the superior aspect of the liver through the pubic symphysis. Sagittal and coronal reformatted images were obtained on the technologist's workstation. This CT examination was performed using dose optimization techniques as appropriate, variously including the following: *Automated exposure control *Adjustment of mA and/or kV according to patient size (this includes techniques or standardized protocols for targeted exams where dose is matched to indication/reason for exam; i.e. extremities or head) *Use of iterative reconstruction technique FINDINGS: LUNG BASES: The visualized lung bases are unremarkable. LIVER, GALLBLADDER, AND BILIARY TREE: 4 x 8 mm hypoattenuating lesion in the posterior superior right hepatic segment. It is too small to characterize but probably represents a cyst or hemangioma. The gallbladder is unremarkable with no evidence of radiopaque gallstones, gallbladder wall thickening, or obvious pericholecystic inflammatory changes. PANCREAS: Unremarkable. SPLEEN: Unremarkable. ADRENAL GLANDS: Unremarkable. KIDNEYS AND URETERS: 2 punctate calcifications in the right kidney may represent stones. 2 Punctate calcifications in the left kidney likely represent stones. There is no hydronephrosis or ureteral stones. BLADDER: Unremarkable. GASTROINTESTINAL TRACT: The small and large bowel are unremarkable. The appendix is unremarkable. ABDOMINAL WALL: Small periumbilical hernia contains fat, no change LYMPH NODES: Normal. VASCULAR: Unremarkable. PELVIC VISCERA: There is an IUD within the upper uterine canal. There is a right adnexal mass with mixed density. There is fluid density in the upper two thirds and higher density in the lower third suggesting proteinaceous debris. Left adnexa is unremarkable. There is a small amount of free fluid in the cul-de-sac. OSSEOUS STRUCTURES: Unremarkable. CT/CT abdomen pelvis wo IV con IMPRESSION: Probable hemorrhagic right ovarian cyst measuring 3.8 cm long axis. Follow up is not indicated. A few punctate stones are present in both kidneys, no hydronephrosis is present. Fleischner guidelines were followed. Electronically signed by: Bassam Barnes MD 12/16/2024 04:57 PM EDT Dictated By: Bassam Barnes MD Signed By: <Electronically signed by Bassam Barnes MD in OV> 12/16/24 1657 DD/ 1524 TD/TT: 12/16/24 1635 [employer] Cook Head: [facility] External Provider IMG CT PROCEDURES Final Result * (ABNORMAL) Urinalysis, Complete, with Reflex to Culture (12/16/2024 3:20 PM EDT) Color Urine Yellow [facility] Appearance Urine Clear [facility] PH 5.5 5.0 - 9.0 [facility] Glucose Urine UA Negative Negative mg/dL [facility] Urine Blood Negative Negative [facility] Specific [place] - Urine 1.020 1.005 - 1.025 [facility] Urine Protein Negative Neg-Trace mg/dL [facility] Urine Ketones Trace Negative mg/dL [facility] Nitrite Urine Negative Negative [facility] Leukocyte Esterase Urine Small (1+)(A) Negative [facility] RBC Urine 0-2 0 - 2 /HPF [facility] Urine WBC 0-5 0 - 5 /HPF [facility] Urine Squamous Epithelial Cell 0-2 0 - 2 /HPF [facility] Urine Bacteria None Seen None Seen [facility] Hyaline Casts, Urine 0-2 0 - 2 /LPF [facility] 12/16/2024 3:20 PM EDT 12/16/2024 3:49 PM EDT [facility] - 12/16/2024 4:06 PM EDT [id number], Clean Catch Generic External Data Provider LAB URINE ORDERAB LES Final Result [facility] [address] [place] [phone] [phone] * Culture, Urine, Routine (12/16/2024 12:00 AM EDT) Urine Urine specimen obtained by clean catch procedure / Unknown 12/16/2024 12/16/2024 Comment:UACC Narrative [facility] - 12/18/2024 11:46 AM EDT Urine Culture Report Result Urine Culture < 10,000 cfu/ml Specimen Source: Urine clean catch us Generic External Data Provider LAB MICROBIOLOGY - GENERAL ORDERABLES Final Result Performing Organization Address [facility]/ZIP Co de Phone Number [facility] [address] [place] [phone] * Hemoglobin A1c (11/26/2024 2:45 PM EDT) Hemoglobin A1c 5.0 <6.0 % [facility] Comment:Hemoglobin A1C Refer ence Range Adults: 4.8 - 6.0 % Non diabetic: < 6.0 % Goal: < 7.0 %Additional Action Suggested: > 8.0 %Note: Hemoglobin A1c results are invalid for patients with abnormal amounts of HbF. Blood transfusions may impact the HbA1c concentration in the patient sample. Estimated Average Glucose 97 mg/dL [facility] Comment:eAG = Estimated ave rage glucose which is %A1C expressed asaverage glucose, using the formula of the C4X-UgqgupnPozfdje Glucose study (ADAG), Diabetes Care, Vol.31,#8,Jan. 2007 Blood Venous blood specimen / Unknown 11/26/2024 2:45 PM EDT 11/26/2024 2:45 PM EDT us Petra Wiley OPTOMETRY PROFESSOR LAB BLOOD ORDERABLES Final Res ult Performing Organization Address [facility]/ZIP Co de Phone Number [facility] [address] [place] [phone] * (ABNORMAL) Lipid Panel, Standard (11/26/2024 2:45 PM EDT) Triglycerides 101 <150 mg/dL [facility] Comment:Desirable Triglyceri de: less than 150 mg/dLBorderline High Triglyceride 150-199 mg/dLHigh Triglyceride: 200-499 mg/dLVery High Triglyceride: greater than or equal to 5OO mg/dL Cholesterol 208(H) <200 mg/dL [facility] Comment:Desirable Cholestero l: less than 200 mg/dLBorderline High Cholesterol: 200-239 mg/dLHigh Cholesterol: greater than 239 mg/dL LDL Cholesterol Calculated 140(H) <100 mg/dL [facility] Comment:Desirable LDL: less than 100 mg/dLNear Optimal/Above Optimal LDL: 110- 129 mg/dLBorderline High LDL: 130-159 mg/dLHigh LDL: 160-189 mg/dLVery High LDL: greater than or equal to 190 mg/dL HDL Cholesterol 48 >40 mg/dL [facility] Comment:Desirable HDL: great er than 40 mg/dL Note: This HDL assay may give artificially low results in patients with liver disease. Blood Venous blood specimen / Unknown 11/26/2024 2:45 PM EDT 11/26/2024 2:45 PM EDT Petra LUCERO LAB BLOOD ORDERABLES Final Res ult Performing Organization Address City/State/[facility] Co de Phone Number [facility] [address] [place] [phone] * XR Hand 3+ Views Left (11/25/2024 8:34 PM EDT) Anatomical Region Laterality Modality Upper Extremities, Hand Left Radiogra phic Imaging 11/25/2024 8:34 PM EDT Narrative 11/25/2024 8:35 PM EDT [address] [address] XRay Report Signed Patient: Ambika Mcdermott MR#: [id number] : 1985 Acct:[id number] Age/Sex: 39 / F ADM Date: 11/25/24 Loc: HOSAURABH Attending Dr: Petra LUCERO Ordering Physician: Petra Wiley Date of Service: 11/25/24 Procedure(s): XR hand LT min 3V Accession Number(s): [id number] cc: Petra Wiley CLINICAL HISTORY: 39 y o Left hand pain 3 view left hand Comparison: None Findings: No acute fractures or dislocations. No large or proximal erosions by radiographs. Soft tissue swelling and/or prominence nonspecific including thenar region and 1st webspace. No radiopaque foreign body. IMPRESSION: 1. No acute fracture or dislocation. 2. No large or proximal erosions. This document has been electronically signed by: Liu Alston MD on 11/25/2024 20:34:10 Dictated By: Liu Alston MD Signed By: <Electronically signed by Liu Alston MD in OV> 11/25/242033 DD/ 33 TD/TT: 11/25/242033 [employer] Cook Head: Procedure Note Donotuseinterpreter, Image - 11/25/[address] [address] XRay Report Signed Patient: Ambika McdermottMR#: [id number] : 1985Acct:[id number] Age/Sex: 39 / FADM Date: 11/25/24 Loc: HO.XRAY Attending Dr: Petra Wiley OPTOMETRY PROFESSOR Ordering Physician: Petra Wiley Date of Service: 11/25/24 Procedure(s): XR hand LT min 3V Accession Number(s): [id number] cc: Petra Wiley CLINICAL HISTORY: 39 y o Left hand pain 3 view left hand Comparison: None Findings: No acute fractures or dislocations. No large or proximal erosions by radiographs. Soft tissue swelling and/or prominence nonspecific including thenar region and 1st webspace. No radiopaque foreign body. IMPRESSION: 1. No acute fracture or dislocation. 2. No large or proximal erosions. This document has been electronically signed by: Liu Alston MD on 11/25/2024 20:34:10 Dictated By: Liu Alston MD Signed By: <Electronically signed by Liu Alston MD in OV> 11/25/242033 DD/ 33 TD/TT: 11/25/242033 [employer] Cook Head: Petra LUCERO IMG XR PROCEDURES Final Result * Pathologist Review Of Peripheral Smear (11/19/2024 4:26 PM EDT) Pathologist Review - CBC SEE NOTE [facility] Comment:- Unremarkable perip heral smear.Reviewed by Alysia Moncada MD Blood Venous blood specimen / Unknown 11/19/2024 4:26 PM EDT 11/19/2024 4:26 PM EDT us Petra Phalen OPTOMETRY PROFESSOR LAB BLOOD ORDERABLES Final Res ult Performing Organization Address [facility] Co de Phone Number [facility] [address] [place] [phone] * Iron And Total Iron Binding Capacity (11/19/2024 4:26 PM EDT) Iron 89 30 - 160 mcg/dL [facility] Total Iron Binding Capacity 298 228 - 428 mcg/dL [facility] Percent Iron Saturation 30 15 - 50 % [facility] Unsaturated Iron Binding 209 ug/dL [facility] Blood Venous blood specimen / Unknown 11/19/2024 4:26 PM EDT 11/19/2024 4:26 PM EDT us Petra Phalkiersten OPTOMETRY PROFESSOR LAB BLOOD ORDERABLES Final Res ult Performing Organization Address [facility] Phone Number [facility] [address] [place] [phone] * Lactate Dehydrogenase (LD) (11/19/2024 4:26 PM EDT) Lactate Dehydrogenase 135 122 - 220 U/L [facility] Blood Venous blood specimen / Unknown 11/19/2024 4:26 PM EDT 11/19/2024 4:26 PM EDT us Petra Phalen OPTOMETRY PROFESSOR LAB BLOOD ORDERABLES Final Res ult Performing Organization Address [facility] Co de Phone Number [facility] [address] [place] [phone] * Ferritin (11/19/2024 4:26 PM EDT) Ferritin 116 10 - 122 ng/mL [facility] Blood Venous blood specimen / Unknown 11/19/2024 4:26 PM EDT 11/19/2024 4:26 PM EDT us Petra Wiley OPTOMETRY PROFESSOR LAB BLOOD ORDERABLES Final Res ult [facility] [address] [place] [phone] * BI Mammogram Diagnostic Tomosynthesis Bilateral (09/01/2024 12:30 PM EDT) Anatomical Region Laterality Modality Breast Bilateral Mammography 09/01/2024 12:3 0 PM EDT Narrative 09/01/2024 3:58 PM EDT [address] [place] [address] Mammography Report Signed Patient: Ambika Mcdermott MR#: [id number] : 1985 Acct:[id number] Age/Sex: 39 / F ADM Date: 09/01/24 Loc: HO.MAMMO Attending Dr: Petra Wiley OPTOMETRY PROFESSOR Ordering Physician: Petra Wiley Results: 3.6MPr obably Benign Finding - Short 6 M F/U Suggested Date of Service: 09/01/24 Follow Up: 6 Month F/U Procedure(s): MM tomosynthesis diagnostic BI Accession Number(s): [id number] cc: Petra Wiley OPTOMETRY PROFESSOR EXAMINATION: MM DIAGNOSTIC DIGITAL BREAST TOMOSYNTHESIS, BILATERAL [...] 09/01/24 1555 DD/ 1230 TD/TT: 09/01/24 1332 [employer] Cook Head: Procedure Note Donotuseinterpreter, Image - 09/01/2024 [facility] [address] [place] [address] [place] [address] Mammography Report Signed Patient: Ambika Mcdermott#: [id number] : 1985Acct:[id number] Age/Sex: 39 / FADM Date: 09/01/24 Loc: HO.MAMMO Attending Dr: Petra Wiley OPTOMETRY PROFESSOR Ordering Physician: Petra Wiley FNPResults: 3.6MPr obably Benign Finding - Short 6 M F/U Suggested Date of Service: 09/01/24Follow Up: 6 Month F/U Procedure(s): MM tomosynthesis diagnostic BI Accession Number(s): [id number] cc: SaurabhPetra FNP EXAMINATION: MM DIAGNOSTIC DIGITAL BREAST TOMOSYNTHESIS, BILATERAL [...] DO Signed By: <Electronically signed by Eneida Núñez, DO in OV> 09/01/24 1555 DD/ 1230 TD/TT: 09/01/24 1332 [employer] Cook Head: us Petra VALENCIAP IMG BI PROCEDURES Final Result * Hepatitis C Viral RNA, Quantitative, Real-Time PCR (03/18/2024 2:05 PM EDT) Pathologist [facility] Hepatitis C Viral Load <15 NOT DETECTED NOT DETECTED IU/mL [facility] HCV Log PCR <1.18 NOT DETECTED NOT DETECTED Log IU/mL [facility] Comment:For additional infor mation, please refer tohttp://[email or web address]/faq/[email or web address](This link is being provided for informational/educational purposes only.)THIS TEST WAS PERFORMED AT:[facility] [place] [phone] DEL CID MD Blood 03/18/2024 2:05 PM EDT 03/18/2024 2:05 PM EDT Petra Wiley [facility] LAB BLOOD ORDERABLES Final Res ult [facility] [address] [place] [phone] * HIV-1/2 Antigen and Antibodies, Fourth Generation, with Reflexes (03/18/2024 2:05 PM EDT) Pathologist [facility] HIV AB/AG Nonreactive Nonreactive [facility] Comment:HIV-1 p24 Ag and/or HIV-1/HIV-2 Ab not detected.A test result that is nonreactive does not exclude thepossibility of exposure to or infection with HIV-1 and/orHIV-2. Nonreactive results in this assay for individualswith prior exposure to HIV-1 and/or HIV-2 may be due toantigen and antibody levels that are below the limit ofdetection of this assay.The [employer] HIV Ag/Ab Combo assay result andsupplemental assay results should be interpreted inconjunction with the patient's clinical presentation,history and other laboratory results. If the results areinconsistent with clinical evidence, additional testing issuggested to confirm the result. Blood Venous blood specimen / Unknown 03/18/2024 2:05 PM EDT 03/18/2024 2:05 PM EDT us Petra Wiley OPTOMETRY PROFESSOR LAB BLOOD ORDERABLES Final Res ult [facility] [address] [place] [phone] from Last 3 Months or Most Recently Relevant to Health Maintenance Insurance [facility] C3 DENTAL-[facility] MEDICAID STAND ADULT Care Teams Spindraw Operator Relationship Specialty Start Date End Date Petra Wiley FNP [address] [place] [address] PCP - General Family Medicine 03/17/24 Willard Waters [address] [place] [address] Rheumatology 05/17/24 Victoria Sumaya [address] [facility] [address] [place] [address] Gastroenterology 05/17/24 Juan Sandra MD [address] [place] [phone] Hematology and Oncology 05/17/24 Brigid Guy NP [address] [facility] [address] [place] [address] Urology 05/17/24 Vicente Mooney MD [address] [place] [address] [address] [place] [address] Obstetrics and Gynecology 05/17/24 Beth Rai MD [address] [place] [phone] Neurology 05/17/24 Michell Espinoza [address] [facility] [address] [place] [place] [address] Cardiology 05/17/24 Shelia Zheng Movie ProjectionistAirport Ramp Supervisor 09/26/23
--- OUTSIDE RECORDS SUMMARY | 2025-02-10 14:36 | XMS_ITS | Encounter Summary ---
Author Organization [email or web address] Address [address] 7t [place] [address] Care Team Providers Care Director Prospect Name Role Phone Petra Wiley FORESTRY FIRE AIDE Primary Care Provider [phone] Willard Waters Unavailable [phone] September Unavailable Juan Sandra MD Unavailable [phone] Brigid Guy NP Unavailable Vicente Mooney MD Unavailable Beth Rai MD Unavailable Michell Espinoza Unavailable Encounter Details Date Type Department Care Team (Late st Contact Info) Description 02/05/2025 Orders Only [facility] External Provider, [facility] Social History Tobacco Use Types Packs/Day Years [...] Description 02/23/2025 1:00 PM EDT Clinical Support [facility] DIABETES/NUTRITION 230 [place] [address] [place] [address] documented as of this encounter Procedures Procedure Name Priority Date/Time Associated Diagnosis Comments US PELVIS TRANSVAGINAL Routine 02/05/2025 1:43 PM EDT documented in this encounter Results * US Pelvis Transvaginal (02/05/2025 1:43 PM EDT) Anatomical Region Laterality Modality Pelvis Ultrasound 02/05/2025 1:43 PM EDT Narrative 02/05/2025 2:29 PM EDT [address] [address] Ultrasound Report Signed Patient: Ambika Mcdermott MR#: [id number] : 1985 Acct:[id number] Age/Sex: 39 / F ADM Date: 02/05/25 Loc: HO.US Attending Dr: Vicente Mooney MD Ordering Physician: Vicente Mooney MD Date of Service: 02/05/25 Procedure(s): US pelvic and transvaginal Accession Number(s): [id number] cc: Petra Wiley; Vicente Mooney MD EXAMINATION: [...] 02/05/25 1426 DD/ 1343 TD/TT: 02/05/25 1355 Police Lieutenant Precinct: Procedure Note Donotuseinterpreter, Image - 02/05/[address] [address] Ultrasound Report Signed Patient: Ambika McdermottMR#: [id number] : 1985Acct:[id number] Age/Sex: 39 / FADM Date: 02/05/25 Loc: HO.US Attending Dr: Vicente Mooney MD Ordering Physician: Vicente Mooney MD Date of Service: 02/05/25 Procedure(s): US pelvic and transvaginal Accession Number(s): [id number] cc: Petra Wiley; Vicente Mooney MD EXAMINATION: [...] 02/05/25 1426 DD/ 1343 TD/TT: 02/05/25 1355 Police Lieutenant Precinct: us [facility] External Provider IMG US PROCEDURES Final Result documented in this encounter Visit Diagnoses Not on filedocumented in this encounter Additional Health Concerns Assessment Noted Time PHQ-9 Depression Total Score: 8 11/26/19 25 5:52 PM EDT documented as of this encounter Care Teams Director Prospect Relationship Specialty Start Date End Date Petra Wiley FNP 230 [place] [address] PCP - General Family Medicine 03/17/24 Willard Waters [address] [place] [address] Rheumatology 05/17/24KesslerSeptember 11 [facility] 3rd [place] [address] Gastroenterology 05/17/24 Juan Sandra MD [address] [place] [address] Hematology and Oncology 05/17/24 Brigid Guy NP [address] [place] [address] Urology 05/17/24 Vicente Mooney MD [address] [place] [address] [address] [place] [address] Obstetrics and Gynecology 05/17/24 Beth Rai MD [address] [place] [address] 140 [place] [address] Neurology 05/17/24 Michell Espinoza [address] 3rd [place] [address] Cardiology 05/17/24 Shelia Zheng Alterations ExpertSalvationist 09/26/23 documented as of this encounter
--- OUTSIDE RECORDS SUMMARY | 2025-02-10 14:36 | XMS_ITS | Encounter Summary ---
Author Organization [employer] Address [address]t [place] [address] Care Team Providers Care Towel Folder Name Role Phone Petra Wiley ABRASIVES SALES REPRESENTATIVE Primary Care Provider [phone] Willard Waters Unavailable [phone] September Unavailable Juan Sandra MD Unavailable [phone] Brigid Guy NP Unavailable Vicente Mooney MD Unavailable Beth Rai MD Unavailable Michell Espinoza Unavailable Encounter Details Date Type Department Care Team (Late st Contact Info) Description 05/20/2024 Orders Only [facility] CHC MED & PEDS 505 [place], [place] [phone] Provider, MD Addie Social History Tobacco Use [...] Description 02/23/2025 1:00 PM EDT Clinical Support [facility] DIABETES/NUTRITION 230 [place] [address] [place] [address] documented as of this encounter Procedures Procedure [...] documented as of this encounter Care Teams Towel Folder Relationship Specialty Start Date End Date Petra Wiley FNP 230 [place] [address] PCP - General Family Medicine 03/17/24 Willard Waters [address] Rheumatology 05/17/24 Victoria Sumaya [address] 3rd [place] [address] Gastroenterology 05/17/24 Juan Sandra MD [address] [place] [address] Hematology and Oncology 05/17/24 Brigid Guy NP [address] [place] [address] Urology 05/17/24 Vicente Mooney MD [address] [place] [address] [address] [place] [address] Obstetrics and Gynecology 05/17/24 Beth Rai MD [address] [place] [address] [place] [address] Neurology 05/17/24 Michell Espinoza 11 [facility] 3rd [place] [address] Cardiology 05/17/24 Shelia Zheng Journalists And Other WritersDiesel Locomotive Firer/Fireman 09/26/23 documented as of this encounter
== END 2025-02-10 15:00 | disposition home or self-care (01) ==
LOC: HO.HUSH 13:46
PROVIDERS: PCP Student in an Organized Health Care Education/Training Program; Visit Provider Nurse Practitioner Family
DX: N20.0 Calculus of kidney (principal); R31.29 Other microscopic hematuria; Z13.9 Encounter for screening, unspecified
CPT/HCPCS: 99214

== ENCOUNTER 2025-02-10 13:45 | Outpatient (REF) | payer MEDICAID, SELFPAY | END 2025-02-10 13:46 | disposition home or self-care (01) | LOC: HO.LAB 13:45 | PROVIDERS: PCP Student in an Organized Health Care Education/Training Program; Visit Provider Nurse Practitioner Family | DX: N20.0 Calculus of kidney (principal); R31.29 Other microscopic hematuria; Z13.89 Encounter for screening for other disorder; Z79.899 Other long term (current) drug therapy | CPT/HCPCS: 81003; 88112; 99212 ==

== ENCOUNTER 2025-02-12 16:06 | Outpatient (REF) | payer MEDICAID, SELFPAY ==
--- OUTSIDE RECORDS SUMMARY | 2025-02-09 10:15 | XMS_ITS | Encounter Summary ---
Author Organization [facility] Address [address] [place] [address] Care Team Providers Care Staging Technician Name Role Phone Petra Wiley Primary Care Provider [phone] Reason for Referral * Consultation (Routine) - Pending Review Specialty Diagnoses / Procedures Referred By Mehreen linares Referred To Contact Dermatology Diagnoses Raynaud's phenomenon without gangrene Breann Nobles MD [address] [place] [address] Phone: tel: fax: Referral ID Status Reason Start Date Expiration Date Visits Requested Visits Authorized [id number] Pending Review Specialty Services Required 02/09/2025 03/12/2026 6 6 Reason for Visit * Reason Comments Skin Problem Concern about skin * Consultation (Routine) - Pending Review Specialty Diagnoses / Procedures Referred By Mehreen linares Referred To Contact Dermatology Diagnoses Erythromelalgia (HCC) [address], DO [address] [facility] Rheumtology [place], [place] Phone: tel: fax: Breann Nobles MD [address] [place] [address] Phone: tel: fax: Referral ID Status Reason Start Date Expiration Date Visits Requested Visits Authorized [id number] Pending Review Specialty Services Required 07/22/2024 01/21/2026 6 6 Encounter Details Date Type Department Care Team (Late st Contact Info) Description 02/09/2025 10:15 AM EDT Office Visit [facility] D[facility] 4th Floor [address] [facility], [place] [phone] Motel Clerk: Breann Tang MD [address] [place] [address] Raynaud's phenomenon without gangrene (Primary Dx) Social History Tobacco Use Types [...] on file documented as of this encounter Patient Instructions * Patient Instructions* Breann Nobles MD - 02/09/2025 10:24 AM EDT Interpretors - Yani - [id number] documented in this encounter Progress Notes * Breann Nobles MD - 02/09/2025 1:08 PM EDT New/Consult Note The provider would like to use a new technology product that will automatically document your encounter based on a recording of your conversation today. This will allow them to spend more time focused on you. Is it okay with you if we record your conversation? Patient consents to be recorded by [employer] system. Supervisor Byproducts Supervisor Byproducts Used: Yes Type of Supervisor Byproducts Used: Video Supervisor Byproducts Supervisor Byproducts Name/Number Interpretors - Yani - [id number] Referring Provider: Newton Street DO Reason for Referral: Erythromelalgia (HCC) HPI: Ambika Gleason is a 39 y.o. female History of Present Illness The patient presents for Raynaud's phenomenon, lupus, anemia, and a bleeding disorder. She is accompanied by a piano maker. She sought medical attention from Dr. Edwards due to changes in the color of her hands and feet, a condition she has experienced before. She was previously misdiagnosed with urticaria at an urgent care facility and treated with Benadryl. Her symptoms are more pronounced during the winter season. Jorge experiences significant pain in her hands and feet. There is no family history of similar symptoms. Her symptoms began approximately 7 years ago, following her relocation here in 2008. She was previously diagnosed with Raynaud's phenomenon, but a subsequent doctor suggested it might be erythromelalgia. She also reports swelling in her hands and feet, which is a new symptom. She has been exper iencing pain in her thumb for the past 3 weeks. She has undergone physical therapy and noticed rapid color changes in her feet. She has not been tested for Madelung's disease, a genetic disorder, butwas referred to a specialist by Dr. Vigil. However, she has not yet received a call from the specialist. She is currently on propranolol for her heart condition. She has consulted with several pain specialists who have identified soft tissue swelling on MRI. She was previously prescribed Plaquenil, which improved her symptoms, but she discontinued it due to concerns about potential eye damage. She also reports red spots on her stomach that cause discomfort, although they are not currently present. These spots appear more than 3 or 4 times a year. She has a history of anemia and was previously treated with iron supplements, which improved her condition. However, she is currently feeling fatigued again. She has a bleeding disorder and had an IUD inserted on 01/13/2025. Her bail bondsman informed her that hormone therapy was not an option due to her positive NURIA status, leaving hysterectomy as the only alternative. FAMILY HISTORY She reports no family history of similar symptoms. PHYSICAL EXAM: Physical Exam Skin: Red spots on the palms and feet reported to occur more than three or four times a year. Nails: Nail beds are very healthy with no abnormalities noted. Extremities: Hands and feet changing colors, consistent with Raynaud's phenomenon. Results Labs - NURIA test: NURIA positivity detected 1: 640 A and P : Raynaud's phenomenon: Nail capillaries - no abnormalities Given NURIA positivity Recurrent oral ulcers Possible synovitis Anemia Palpitations Hair loss Sent message to and also about possible Lupus diagnosis She is on oral propranolol and would not be able to use calcium channel blockers for raynauds phenomenon. RTC PRN Breann Nobles MD No follow-ups on file. documented in this encounter Plan of Treatment Upcoming Encounters Date Type Department Care Team (Late st Contact Info) Description 03/04/2025 3:00 PM EDT Office Visit [facility] [address] [place] [address] Motel Clerk: Shasha Campos PA [address] [place] [address] 04/19/2025 1:20 PM EST Lab [facility] ACC Draw Site Fifth Floor [address] [place] [address] 04/19/2025 2:20 PM EST Follow-Up [facility] [address] [place] [address] Shavon Roberson NP [address] [place] [address] Scheduled Referrals Name Type Priority Associated Diagnoses Order Schedule Ambulatory referral to Dermatology Outpatient Referral Routine Raynaud's phenomenon without gangrene Expected: 02/09/2025, Expires: 03/12/2026 documented as of this encounter Visit Diagnoses Diagnosis Raynaud's phenomenon without gangrene- Primary documented in this encounter Care Teams Staging Technician Relationship Specialty Start Date End Date Petra Wiley [address] [place] [address] PCP - General Family Medicine 03/19/24 documented as of this encounter
--- OUTSIDE RECORDS SUMMARY | 2025-02-12 16:10 | XMS_ITS | Encounter Summary ---
Author Organization [employer] Address 75 [facility] 7t [place] [address] Care Team Providers Care Utility Systems Repairer Operator Name Role Phone Petra Wiley Primary Care Provider Willard Waters Unavailable [phone] September Unavailable Juan Sandra MD Unavailable [phone] Brigid Guy NP Unavailable Vicente Mooney MD Unavailable Beth Rai MD Unavailable [phone] Michell Espinoza Unavailable Reason for Visit * Reason Onset Date Comments Appointment Request 01/08/2025 Encounter Details Date Type Department Care Team (Late st Contact Info) Description 01/08/2025 Telephone [facility] MEDICINE 230 [place] [address] Petra Wiley FNP 505 [place], [place] [phone] Appointment Request Social History Tobacco Use Types [...] and unable to attend. Contact pt at [phone] documented in this encounter Plan of Treatment Upcoming Encounters Date Type Department Care Team (Late st Contact Info) Description 02/23/2025 1:00 PM EDT Clinical Support [facility] DIABETES/NUTRITION 230 [place], [place] [phone] Tamanna Mcintyre [address] 230 [place] [address] documented as of this encounter Visit Diagnoses Not on filedocumented in this encounter Additional Health Concerns Assessment Noted Time PHQ-9 Depression Total Score: 8 11/26/19 25 5:52 PM EDT documented as of this encounter Care Teams Utility Systems Repairer Operator Relationship Specialty Start Date End Date Petra Wiley FNP 230 [place] [address] PCP - General Family Medicine 03/17/24 Willard Waters [address] Rheumatology 05/17/24KesslerSeptember 11 [facility] 3rd [place] [address] Gastroenterology 05/17/24 Juan Sandra MD [address] [place] [address] Hematology and Oncology 05/17/24 Brigid Guy NP [address] [facility] [address] [place] [address] Urology 05/17/24 Vicente Mooney MD [address] [place] [address] [address] [place] [address] Obstetrics and Gynecology 05/17/24 Beth Rai MD [address] [place] [address] 140 [place] [address] Neurology 05/17/24 Michell Espinoza 11 [facility] 3rd [place] [address] Cardiology 05/17/24 Shelia Zheng Crutcher HelperButadiene Convertor Operator 09/26/23 documented as of this encounter
--- OUTSIDE RECORDS SUMMARY | 2025-02-12 16:10 | XMS_ITS | Encounter Summary ---
Author Organization [employer] Address 75 [facility] 7t [place] [address] Care Team Providers Care Double End Tenoner Setter Name Role Phone Jennie Murray MD Primary Care Provider Petra Wiley Primary Care Provider [phone] Willard Waters Unavailable [phone] Sumaya Kessler Unavailable Juan Sandra MD Unavailable [phone] Brigid Guy NP Unavailable Vicente Mooney [...] (Late st Contact Info) Description 08/21/2022 Telephone [facility] ADULT DENTAL 230 [place] [address] Venkat Barreto DDS 230 [place] [address] Appointment (Ambika Anaya 1985 Patient [...] Description 02/23/2025 1:00 PM EDT Clinical Support [facility] DIABETES/NUTRITION 230 [place] [address] 230 [place] [address] documented as of this encounter Visit Diagnoses Not on filedocumented in this encounter Additional Health Concerns Assessment Noted Time PHQ-9 Depression Total Score: 0 07/04/19 3:01 PM EST documented as of this encounter Care Teams Double End Tenoner Setter Relationship Specialty Start Date End Date Jennie Murray MD 230 [place] [address] PCP - General Family Medicine 06/23/13 03/16/24 Petra Wiley FNP 230 [place] [address] PCP - General Family Medicine 03/17/24 Willard Waters [address] [place] [address] Rheumatology 05/17/24 Victoria Sumaya 11 [facility] 3rd [place] [address] Gastroenterology 05/17/24 Juan Sandra MD [address] [place] [address] Hematology and Oncology 05/17/24 Brigid Guy NP [address] [place] [address] Urology 05/17/24 Vicente Mooney MD [address] [place] [address] [address] [place] [address] Obstetrics and Gynecology 05/17/24 Beth Rai MD [address] [place] [address] 140 [place] [address] Neurology 05/17/24 Michell Espinoza 11 [facility] 3rd [place] [address] Cardiology 05/17/24 Universal Health Servicesral Floor DirectorDirector Of Scientific Research 09/26/23 documented as of this encounter
--- OUTSIDE RECORDS SUMMARY | 2025-02-12 16:10 | XMS_ITS | Encounter Summary ---
Author Organization [employer] Address 75 [facility] 7t [place] [address] Care Team Providers Care Frame Fixer Name Role Phone Petra Wiley SPARE FIXER Primary Care Provider Willard Waters Unavailable [phone] September Unavailable Juan Sandra MD Unavailable [phone] Brigid Guy NP Unavailable Vicente Mooney MD Unavailable Beth Rai MD Unavailable Michell Espinoza Unavailable Reason for Visit * Reason Comments Med Refill Encounter Details Date Type Department Care Team ([facility] st Contact Info) Description 01/07/2025 Refill [facility] MED & PEDS 505 [place], [place] [phone] Petra Wiley FNP 505 [place], [place] [phone] Fibromyalgia Social History Tobacco Use Types Packs/Day [...] Description 02/23/2025 1:00 PM EDT Clinical Support [facility] DIABETES/NUTRITION 230 [place] [address] [place] [address] documented as of this encounter Visit Diagnoses Diagnosis Fibromyalgia Unspecified myalgia and myositis documented in this encounter Additional Health Concerns Assessment Noted Time PHQ-9 Depression Total Score: 8 11/26/19 25 5:52 PM EDT documented as of this encounter Care Teams Frame Fixer Relationship Specialty Start Date End Date Petra Wiley FNP 230 [place] [address] PCP - General Family Medicine 03/17/24 Willard Waters 575 [facility] 402 [place], [place] Rheumatology 05/17/24 Sumaya Kessler [address] 3rd [place] [address] Gastroenterology 05/17/24 Juan Sandra MD 575 [place] [address] Hematology and Oncology 05/17/24 Brigid Guy NP [address] [place] [address] Urology 05/17/24 Vicente Mooney MD [address] [place] [address] [address] [place] [address] Obstetrics and Gynecology 05/17/24 Beth Rai MD [address] [place] [address] 140 [place] [address] Neurology 05/17/24 Michell sEpinoza 11 [facility] 3rd [place] [address] Cardiology 05/17/24 Shelia Zheng Nail CutterDirector Prospect 09/26/23 documented as of this encounter
--- OUTSIDE RECORDS SUMMARY | 2025-02-12 16:10 | XMS_ITS | Encounter Summary ---
Author Organization [employer] Address 75 [facility] 7t [place] [address] Care Team Providers Care Rn Practitioner Name Role Phone Petra Wiley CEMENT LOADER Primary Care Provider Willard Waters Unavailable [phone] September Unavailable Juan Sandra MD Unavailable [phone] Brigid Guy NP Unavailable Vicente Mooney MD Unavailable Beth Rai MD Unavailable Michell Espinoza Unavailable Reason for Visit * Reason Comments Med Refill Encounter Details Date Type Department Care Team ([facility] st Contact Info) Description 12/03/[address] [facility] CHC MED & PEDS 505 [place], [place] [phone] Petra Wiley FNP 505 [place], [place] [phone] Fibromyalgia Social History Tobacco Use Types Packs/Day [...] [facility] DIABETES/NUTRITION 230 [place] [address] 230 [place] [address] documented as of this encounter Visit Diagnoses Diagnosis Fibromyalgia Unspecified myalgia and myositis documented in this encounter Additional Health Concerns Assessment Noted Time PHQ-9 Depression Total Score: 8 11/26/19 25 5:52 PM EDT documented as of this encounter Care Teams Rn Practitioner Relationship Specialty Start Date End Date Petra Wiley FNP 230 [place] [address] PCP - General Family Medicine 03/17/24 Willard Waters 575 [facility] 402 [place], [place] Rheumatology 05/17/24 Sumaya Kessler [address] 3rd [place] [address] Gastroenterology 05/17/24 Juan Sandra MD 575 [place] [address] Hematology and Oncology 05/17/24 Brigid Guy NP [address] [place] [address] Urology 05/17/24 Vicente Mooney MD [address] [place] [address] [address] [place] [address] Obstetrics and Gynecology 05/17/24 Beth Rai MD [address] [place] [address] 140 [place] [address] Neurology 05/17/24 Michell Espinoza 11 [facility] 3rd [place] [address] Cardiology 05/17/24 Shelia Zheng Well Logging CaptainRoad Crossing Guard 09/26/23 documented as of this encounter
--- OUTSIDE RECORDS SUMMARY | 2025-02-12 16:10 | XMS_ITS | Encounter Summary ---
Author Organization [employer] Address 75 [facility] 7t [place] [address] Care Team Providers Care Agronomist Name Role Phone Jennie Murray MD Primary Care Provider [phone] Petra Wiley Primary Care Provider Willard Waters Unavailable [phone] VictoriaSeptember Unavailable Juan Sandra MD Unavailable [phone] Brigid Guy NP Unavailable Vicente Mooney MD Unavailable Beth Rai MD Unavailable Michell Espinoza Unavailable Reason for Visit * Reason Onset Date Comments Appointment Request 12/25/2023 Encounter Details Date Type Department Care Team (Late st Contact Info) Description 12/25/2023 Telephone [facility] MEDICINE 230 [place], [place] [phone] Jennie Murray MD 505 [place], [place] [phone] Appointment Request Social History Tobacco Use Types [...] 12/25/2023 1:07 PM EDT Tc from Patrice, pediatric care coordinator with [facility], calling to schedule appt for pt. Pt is awaiting transfer pt appt with Dr. Wiley in which magazine writer attempted to schedule but found no availability. Please contact Patrice at [phone]. documented in this encounter Plan of Treatment Upcoming Encounters Date Type Department Care Team (Late st Contact Info) Description 02/23/2025 1:00 PM EDT Clinical Support [facility] DIABETES/NUTRITION 230 [place] [address] [place], [place] [phone] documented as of this encounter Visit Diagnoses Not on filedocumented in this encounter Additional Health Concerns Assessment Noted Time PHQ-9 Depression Total Score: 0 07/04/19 23 3:01 PM EST documented as of this encounter Care Teams Agronomist Relationship Specialty Start Date End Date Jennie Murray MD 230 [place] [address] PCP - General Family Medicine 06/23/13 03/16/24 Petra Wiley FNP 230 [place] [address] PCP - General Family Medicine 03/17/24 Willard Waters [address] [place] [address] Rheumatology 05/17/24KesslerSeptember 11 [facility] 3rd [place] [address] Gastroenterology 05/17/24 Juan Sandra MD [address] [place] [address] Hematology and Oncology 05/17/24 Brigid Guy NP [address] [place] [address] Urology 05/17/24 Vicente Mooney MD [address] [place] [address] [address] [place] [address] Obstetrics and Gynecology 05/17/24 Beth Rai MD [address] [place] [address] 140 [place] [address] Neurology 05/17/24 Michell Espinoza 11 [facility] 3rd [place] [address] Cardiology 05/17/24 [facility] Keg InspectorFluorescent Solution Mixer 09/26/23 documented as of this encounter
--- OUTSIDE RECORDS SUMMARY | 2025-02-12 16:10 | XMS_ITS | Encounter Summary ---
Author Organization [employer] Address 75 [facility] 7t [place] [address] Care Team Providers Care Logistics Research Engineer Name Role Phone Jennie Murray MD Primary Care Provider Petra Wiley Primary Care Provider Willard Waters Unavailable [phone] Victoria Sumaya Unavailable Juan Sandra MD Unavailable [phone] Brigid Guy NP Unavailable Vicente Mooney MD Unavailable Beth Rai MD Unavailable Michell Espinoza Unavailable Reason for Visit * Reason Onset Date Comments medication 09/19/2022 Encounter Details Date Type Department Care Team (Late st Contact Info) Description 09/19/2022 Telephone [facility] ADULT DENTAL [address] [place], [place] [phone] Venkat Barreto DDS 230 [place], [place] [phone] medication Social History Tobacco Use Types Packs/Day [...] formerly [facility] in [place]. 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 Contacted [facility] and they stated that nationwide there was a shut down on their system for about 3 hours so it doesn't look like they received it. Can it be resent for patient? documented in this encounter Plan of Treatment Upcoming Encounters Date Type Department Care Team (Late st Contact Info) Description 02/23/2025 1:00 PM EDT Clinical Support [facility] DIABETES/NUTRITION 230 [place] [address] Tamanna Mcintyre, ANGELINA 230 [place] [address] documented as of this encounter Visit Diagnoses Not on filedocumented in this encounter Additional Health Concerns Assessment Noted Time PHQ-9 Depression Total Score: 0 07/04/19 23 3:01 PM EST documented as of this encounter Care Teams Logistics Research Engineer Relationship Specialty Start Date End Date Jennie Murray MD [address] [place] [address] PCP - General Family Medicine 06/23/13 03/16/24 Petra Wiley FNP 230 [place] [address] PCP - General Family Medicine 03/17/24 Willard Waters 575 [facility] 402 [place], [place] Rheumatology 05/17/24 Sumaya Kessler [address] 3rd [place] [address] Gastroenterology 05/17/24 Juan Sandra MD 575 [place] [address] Hematology and Oncology 05/17/24 Brigid Guy NP [address] [place] [address] Urology 05/17/24 Vicente Mooney MD [address] [place] [address] Obstetrics and Gynecology 05/17/24 Beth Rai MD 15 [facility] 140 [place] [address] Neurology 05/17/24 Michell Espinoza [address] 3rd [place] [address] Cardiology 05/17/24 Shelia Zheng Nursing Services ManagerSoils Engineer 09/26/23 documented as of this encounter
--- OUTSIDE RECORDS SUMMARY | 2025-02-12 16:10 | XMS_ITS | Encounter Summary ---
Author Organization [employer] Address 75 [facility] 7t [place] [address] Care Team Providers Care Cream Maker Name Role Phone Jennie Murray MD Primary Care Provider [phone] Petra Wiley Primary Care Provider Willard Waters Unavailable [phone] KesslerSeptember Unavailable Juan Sandra MD Unavailable [phone] Brigid Guy NP Unavailable Vicente Mooney MD Unavailable Beth Rai MD Unavailable [phone] Michell Espinoza Unavailable Encounter Details Date Type Department Care Team (Latest Contact Info) Description 09/03/2018 Abstract [facility] CONVERSIONS Dental, Provider, DDS Social History [...] Description 02/23/2025 1:00 PM EDT Clinical Support [facility] DIABETES/NUTRITION 230 [place] [address] [place], [place] [phone] documented as of this encounter Visit Diagnoses Not on filedocumented in this encounter Care Teams Cream Maker Relationship Specialty Start Date End Date Jennie Murray MD 230 [place] [address] PCP - General Family Medicine 06/23/13 03/16/24 Petra Wiley FNP 230 [place] [address] PCP - General Family Medicine 03/17/24 Willard Waters [address] [place] [address] Rheumatology 05/17/24KesslerSeptember 11 [facility] 3rd [place] [address] Gastroenterology 05/17/24 Juan Sandra MD [address] [place] [address] Hematology and Oncology 05/17/24 Brigid Guy NP [address] [place] [address] Urology 05/17/24 Vicente Mooney MD [address] [place] [address] [address] [place] [address] Obstetrics and Gynecology 05/17/24 Beth Rai MD [address] [place] [address] 140 [place] [address] Neurology 05/17/24 Michell Espinoza 11 [facility] 3rd [place] [address] Cardiology 05/17/24 [facility] Machine PackagerBlower Feeder Dyed Raw Stock 09/26/23 documented as of this encounter
--- OUTSIDE RECORDS SUMMARY | 2025-02-12 16:10 | XMS_ITS | Clinical Summary ---
Author Organization [employer] Address [address] [facility] [address] [place] [address] Care Team Providers Care Occupational Work Experience Teacher Name Role Phone Petra Wiley WELDING MACHINE OPERATOR Primary Care Provider Willard Waters Unavailable [phone] September Unavailable Juan Sandra MD Unavailable [phone] Brigid Guy NP Unavailable Vicente Mooney MD Unavailable Beht Rai MD Unavailable Michell Espinoza Unavailable Allergies [...] [place] 022 Active Creon 86451-464250 units capsule delayed-release particles capsule TOME ADRY [...] 25 Palpitations 05/17/2024 Overview (11/04/2024): Followed by [facility] Cards Continues on Propranolol 20mg 1-2x/day (through Cards) Assessment & Plan (11/04/2024 2:38 PM EDT): Consult Jul 2024 - cont current therapy Class 1 obesity with body ma ss index (BMI) of 32.0 to 32.9 in adult 05/17/2024 Assessment & Plan (07/29/2024 4:08 PM EST): - 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 Care Coordinator referral offered. Recommended to decrease soda and [...] bruising easily 03/17/2024 Overview (03/17/2024): Followed by [facility] Heme/Onc - Dr. Sandra Per consult Jan [...] Disorder , and Trauma MH services including [facility] Psychotherapy psychopharmacology who presents for Bipolar, [...] 04/17/2021 HCT 31.0 (L) 10/08/2024 Following with [facility] Heme/Onc - Dr. Sandra Unable to tolerate [...] - Has consulted with Surgery team in [facility] for consideration of excision. Per their consult [...] - Has consulted with Surgery team in [facility] for consideration of excision. Per their consult Mar 2024, identified area has normal lobular fat, no discrete lipoma or nodules. Plan: conservative measures Abnormal uterine bleeding 12/27/2023 Overview (07/29/2024): Following with [facility] AIRCRAFT LAYOUT WORKER - Dr. Mooney EMB performed 04/14/24. Path: [...] Overview (05/17/2024): Lab Results Component Value Date PCEB10LZPIM 19.9 (L) 03/18/2024 [id number] 19 (A) 05/08/2023 - Cont Vit D [...] (02/01/2025): Pap: NILM, HPV neg 01/13/25 at [facility] AIRCRAFT LAYOUT WORKER Dental: [facility] Dental Last PE: 11/25/24 Hep B Immune: Mar 2024 Contraception: IUD (Mirena) placed 01/13/25 at [facility] [employer] LAYOUT WORKER Gastroesophageal reflux disease without esophagi tis 06/03/2023 Overview (06/03/2023): Followed by [facility] GI Varghese [place] JOYN Continues famotidine and Dexliant through GI Irritable bowel syndrome with constipation 06/03 Overview (03/17/2024): Followed up [facility] GI Varghese [place] MOLECULAR TECHNOLOGIST Continues Bentyl TID Continues Bisacodyl 10mg nightly Dysphagia, oropharyngeal phase 06/03/2023 Overview (06/03/2023): Followed by [facility] GI Varghese [place] NABIL Kessler Gastroparesis 06/03/2023 Overview (03/17/2024): Followed by [facility] GI Continues with the following medication regimen for multiple GI symptoms and conditions: Creon, famotidine, psyllium, dicyclomine, simethicone, and Dexliant Previous medications: carafate NURIA positive 06/03/2023 Overview (07/29/2024): Previous followed by [facility] Rheum - Dr. Waters May 2024: Established with [facility] Rheum - Dr. Street NURIA positive 2019: 1:160, anti dna, nicholas, ESR, CRP all wnl Disorder of sesamoid bone of foot 06/03/2023 Overview (06/03/2023): -Left lateral sesamoid stress fx identified Jul 2022 at [facility] -Plan for immobilization in short walking boot and follow up 6 weeks Assessment & Plan (06/03/2023 10:28 PM EST): Plan to request latest records from [facility] and follow up with PCP to discuss eligibility handicap placard. Fibromyalgia 08/02/2022 Overview (11/04/2024): -Previously: Lyrica 75mg nightly through [facility] Physiatry/Rheum -Lyrica rx from PCP as of [...] Encounters Date Type Department Care Team Description 02/10/2025 Orders Only GENERIC EXTERNAL DATA DEPARTMENT Provider, Generic External Data 02/05/2025 Orders Only [facility] External Provider, [facility] 02/03/2025 Orders Only [facility] External Provider, [facility] 02/01/2025 3:30 PM EDT Office Visit [facility] MED & PEDS [address] [place] [address] Petra Wiley FNP Injury of left knee, subsequent encounter (Primary Dx) 02/01/2025 Travel 02/01/2025 Orders Only [facility] [address] [place] [address] Addie Campbell MD 01/29/2025 Telephone [facility] [address] [place], [place] [phone] Petra Wiley FNP chart prep 01/26/2025 1:00 PM EDT Clinical Support [facility] DIABETES/NUTRITION [address] [place] [address] Class 1 obesity with serious comorbidity and body mass index (BMI) of 32.0 to 32.9 in adult, unspecified obesity type (Primary Dx) 01/26/2025 Travel 01/20/2025 Telephone [facility] MEDICINE [address] [place] [address] Petra Wiley FNP Appointment Confirmation 01/19/2025 Telephone [facility] [address] [place] [address] Jackie Bazzi MD 01/19/2025 Telephone [facility] MEDICINE [address] [place] [address] [phone] Petra Wiley FNP ER Follow-up 01/17/2025 Orders Only [facility] External Provider, [facility] 01/15/2025 11:15 AM EDT Office Visit [facility] [address] [place] [address] Jackie Bazzi MD Appendix disease (Primary Dx); Fibromyalgia; Gastroesophageal reflux disease without esophagitis; Gastroparesis; Gastroesophageal reflux disease without esophagitis 01/15/2025 Results Follow-Up [facility] MEDICINE [address] [place] [address] Sylvia Lemons MD Bacterial Vaginosis, Chlamydia/N. Gonorrhoeae RNA, TMA, Urogenitial 01/15/2025 Travel 01/14/[address] [address] Petra Wiley FNP ER Follow-up 01/13/2025 Orders Only GENERIC EXTERNAL DATA DEPARTMENT Provider, Generic External Data 01/08/[address] [address] Petra Wiley FNP Appointment Request 01/08/2025 Orders Only GENERIC EXTERNAL DATA DEPARTMENT Provider, Generic External Data 01/07/2025 Refill [facility] MED & PEDS [address] [place] [address] Petra Wiley FNP Fibromyalgia 12/25/2024 2:00 PM EDT Office Visit [facility] ADULT DENTAL [address] [place] [address] Venkat Barreto DDS 12/21/2024 Orders Only [facility] MEDICINE [address] [place] [address] Jailene Vitale CNM 12/17/2024 1:00 PM EDT Office Visit [address] [address] Jailene Vitale CNM Labial cyst (Primary Dx) 12/17/2024 Travel 12/16/2024 Orders Only GENERIC EXTERNAL DATA DEPARTMENT Provider, Generic External Data 12/16/[address] [address] Jailene Vitale CNM chart prep 12/11/2024 1:00 PM EDT Clinical Support [facility] DIABETES/NUTRITION [address] [place] [address] Class 1 obesity with body mass index (BMI) of 32.0 to 32.9 in adult, unspecified obesity type, unspecified whether serious comorbidity present (Primary Dx) 12/11/2024 Travel 12/03/2024 Refill [facility] [address] [place] [address] Petra Wiley FNP Fibromyalgia 12/02/2024 Telephone [facility] [address] [place] [address] Petra Wiley FNP Referral 12/01/2024 3:30 PM EDT Clinical Support [facility] DIABETES/NUTRITION [address] [place] [address] Class 1 obesity with body mass index (BMI) of 32.0 to 32.9 in adult, unspecified obesity type, unspecified whether serious comorbidity present (Primary Dx) 12/01/2024 2:00 PM EDT Office Visit [facility] ADULT DENTAL [address] [place] [address] Venkat Barreto DDS 12/01/2024 Travel 11/30/2024 Results Follow-Up [facility] MED [facility] PED[facility] [address] [place] [address] Petra Wiley FNP XR Hand 3+ Views Left 11/25/2024 9:15 AM EDT Office Visit [facility] MEDICINE [address] [place] [address] Petra Wiley FNP Encounter for routine history and physical examination of adult (Primary Dx); Healthcare maintenance; Left hand pain; Subcutaneous mass of both lower legs; Papule of skin 11/25/2024 Travel 11/23/2024 Results Follow-Up [facility] [address] [place] [address] Shireen Eagle [place] POCT Hemoglobin, CBC auto [...] Description 02/23/2025 1:00 PM EDT Clinical Support [facility] DIABETES/NUTRITION [address] [place] [address] Tamanna Mcintyre, ANGELINA [address] [place] [address] Health Maintenance Due Date Last Done Comments [...] Medical Reasons) Depression Screening 11/25/2025 11/25/2024, 11/26/19 Family Planning (PISQ) 12/17/2025 12/17/2024 Tobacco Screening 12/25/2025 12/25/2024 Lipid Panel 11/26/2029 11/26/2024, 1007/2023, 10/16/2023, Additional history exists Cervical Cancer Screening [...] Procedure Name Priority Date/Time Associated Diagnosis Comments CYTOPATH-CELL ENHANCED Routine 5 5:16 PM EDT US PELVIS TRANSVAGINAL Routine 5 1:43 PM EDT US RENAL COMPLETE Routine [...] Recently Relevant to Health Maintenance Results * Cytopath-cell enhanced (02/10/2025 5:16 PM EDT) 02/10/2025 5:16 PM EDT 02/11/2025 6:45 AM EDT [facility] - 02/11/2025 10:10 AM EDT ----- ------- Name: Ambika Mcdermott Age/Sex: 39/F : 1985 Unit#: [id number] Attend Dr: Brigid Guy [facility]- Re02/10/25 Status: DEP [facility] Disch: ----- ------- SPEC : [id number] RECD: 02/11/25 STATUS: OLIMPIA IQBAL NUM: [id number] BILLY: 02/10/[address] [facility] [address]: Brigid Guy [facility]- ENTERED: 02/11/25 SP TYPE: Cytology OTHR DR: Jennie Murray MD ORDERED: Cyto-enhanced Diagnosis Urine: Negative for high-grade urothelial carcinoma. See comment. COMMENT: Cellular specimen consisting of few single urothelial cells, squamous cells, red blood cells and acute inflammatory cells. Clinical History other microscopic hematuria Material Received Urine Gross Description Received is 40 cc of clear yellow fluid from which a ThinPrep slide is prepared. IHC S/NG Disclaimer NOTE: Unless otherwise stated, all tissue is formalin-fixed and paraffin-embedded. Some or all of the immunohistochemical tests reported herein may have been developed and their performance characteristics determined by [facility]. They have not been cleared or approved by the U.S. Food and Drug Administration (FDA). However, the FDA has determined that such clearance or approval is not necessary. This laboratory is certified under the Clinical Laboratory Improvement Amendments of 1988 (CLIA) as qualified to perform high complexity clinical laboratory testing. Copies To: Brigid Guy [facility] [address] [place] [address] [address] [place], [place] [phone] [email or web address] Jennie Murray MD [address] [place] [address] CONTINUED ON NEXT PAGE ----- ------- Name: Ambika Mcdermott Age/Sex: 39/F : 1985 Unit#: [id number] Attend Dr: Brigid Guy [facility] Re02/10/25 Status: DEP REF Location: [facility] Disch: ----- ------- SPEC : [id number] RECD: 02/11/25 STATUS: OLIMPIA IQBAL NUM: [id number] BILLY: 02/10/25-[address] [facility] [address]: Brigid Guy [facility] ENTERED: 02/11/25 SP TYPE: Cytology OTHR DR: Jennie Murray MD ORDERED: Cyto-enhanced ----- ------- Signed (signature on file) Trent Patel MD 02/11/25 1010 ----- ------- END OF REPORT us Generic External Data Provider LAB CYTOLOGY RJBlanco MAGANACORDELIA Final Result Performing Organization Address City/State/[facility] Co de Phone Number [facility] [address] [place] [phone] * US Pelvis Transvaginal (02/05/2025 1:43 PM EDT) Only the most recent of2 resultswithin the time period is included. Anatomical Region Laterality Modality Pelvis Ultrasound 02/05/2025 1:43 PM EDT Narrative 02/05/2025 2:29 PM EDT [address] [address] Ultrasound Report Signed Patient: Ambika Mcdermott MR#: [id number] : 1985 Acct:[id number] Age/Sex: 39 / F ADM Date: 02/05/25 Loc: .US Attending Dr: Vicente Mooney MD Ordering Physician: Vicente Mooney MD Date of Service: 02/05/25 Procedure(s): US pelvic and transvaginal Accession Number(s): [id number] cc: Petra Wiley; Vicente Mooney MD EXAMINATION: [...] Bassam Barnes MD 02/05/2025 02:26 PM EDT RP Dictated By: Bassam Barnes MD Signed By: <Electronically signed by Bassam Barnes MD in OV> 02/05/25 1426 DD/ 1343 TD/TT: 02/05/25 1355 Parts Room Clerk: Procedure Note Donotuseinterpreter, Image - 02/05/2025 [place] [address] Ultrasound Report Signed Patient: Ambika McdermottMR#: [id number] : 1985Acct:[id number] Age/Sex: 39 / FADM Date: 02/05/25 Loc: .US Attending Dr: Vicente Mooney MD Ordering Physician: Vicente Mooney MD Date of Service: 02/05/25 Procedure(s): US pelvic and transvaginal Accession Number(s): [id number] cc: Petra Wiley; Vicente Mooney MD EXAMINATION: [...] 02/05/25 1426 DD/ 1343 TD/TT: 02/05/25 1355 Parts Room Clerk: [facility] External Provider IMG US PROCEDURES Final Result * US Renal Complete (02/03/2025 1:34 PM EDT) Anatomical Region Laterality Modality Kidney Ultrasound 02/03/2025 1:34 PM EDT Narrative 02/03/2025 3:08 PM EDT [address] [address] Ultrasound Report Signed Patient: Ambika Mcdermott MR#: [id number] : 1985 Acct:[id number] Age/Sex: 39 / F ADM Date: 02/03/25 Loc: HO.US Attending Dr: Brigid BARRIGA Ordering Physician: Brigid Guy Date of Service: 02/03/25 Procedure(s): US renal BI Accession Number(s): [id number] cc: Brigid Guy; Petra Wiley EXAMINATION: US [...] 02/03/25 1505 DD/ 1334 TD/TT: 02/03/25 1344 Parts Room Clerk: Procedure Note Donotuseinterpreter, Image - 02/03/[address] [address] Ultrasound Report Signed Patient: Ambika McdermottMR#: [id number] : 1985Acct:[id number] Age/Sex: 39 / FADM Date: 02/03/25 Loc: HO.US Attending Dr: Brigid BARRIGA Ordering Physician: Brigid Guy Date of Service: 02/03/25 Procedure(s): US renal BI Accession Number(s): [id number] cc: Brigid GuyP-BC; Petra Wiley WELDING MACHINE OPERATOR EXAMINATION: US RETROPERITONEAL LIMITED (RENAL ONLY) CLINICAL [...] 02/03/25 1505 DD/ 1334 TD/TT: 02/03/25 1344 Parts Room Clerk: us [facility] External Provider IMG US PROCEDURES Final Result * XR Elbow 3+ Views Left (01/17/2025 12:39 AM EDT) Anatomical Region Laterality Modality Upper Extremities, Elbow Left Radiogr aphic Imaging 01/17/2025 12:3 9 AM EDT Narrative 01/17/2025 12:40 AM EDT [address] [address] XRay Report Signed Patient: Ambika Mcdermott MR#: [id number] : 1985 Acct:[id number] Age/Sex: 39 / F ADM Date: 01/17/25 Loc: HO.ED Attending Dr: Ordering Physician: Generic ED Physician Date of Service: 01/16/25 Procedure(s): XR elbow LT min 3V Accession Number(s): [id number] cc: Generic ED Physician; Petra Wiley CLINICAL [...] MD in OV> 01/17/2538 DD/ TD/TT: 01/17/2538 Parts Room Clerk: Procedure Note Donotuseinterpreter, Image - 01/17/2025 [place] [address] XRay Report Signed Patient: Ambika McdermottMR#: [id number] : 1985Acct:[id number] Age/Sex: 39 / FADM Date: 01/17/25 Loc: .ED Attending Dr: Ordering Physician: Generic ED Physician Date of Service: 01/16/25 Procedure(s): XR elbow LT min 3V Accession Number(s): [id number] cc: Generic ED Physician; Petra Wiley CLINICAL [...] MD in OV> 01/17/2538 DD/ TD/TT: 01/17/2538 Parts Room Clerk: us [facility] External Provider IMG XR PROCEDURES Final Result * XR Knee 4+ Views Left (01/17/2025 12:26 AM EDT) Anatomical Region Laterality Modality Lower Extremities, Knee Left Radiogra phic Imaging 01/17/2025 12:2 6 AM EDT Narrative 01/17/2025 12:28 AM EDT [address] [address] XRay Report Signed Patient: Ambika Mcdermott MR#: [id number] : 1985 Acct:[id number] Age/Sex: 39 / F ADM Date: 01/17/25 Loc: HO.ED Attending Dr: Ordering Physician: Generic ED Physician Date of Service: 01/16/25 Procedure(s): XR knee LT 4V Accession Number(s): [id number] cc: Generic ED Physician; Petra Wiley CLINICAL [...] signed by Paul Escobedo MD in OV> 01/17/25 0027 DD/ TD/TT: 01/17/25 0026 Parts Room Clerk: Procedure Note Donotuseinterpreter, Image - 01/17/[address] [address] XRay Report Signed Patient: Ambika McdermottMR#: [id number] : 1985Acct:[id number] Age/Sex: 39 / FADM Date: 01/17/25 Loc: HO.ED Attending Dr: Ordering Physician: Generic ED Physician Date of Service: 01/16/25 Procedure(s): XR knee LT 4V Accession Number(s): [id number] cc: Generic ED Physician; Petra Wiley CLINICAL [...] MD in OV> 01/17/2526 DD/ TD/TT: 01/17/2525 Parts Room Clerk: [facility] External Provider IMG XR PROCEDURES Final Result * XR Elbow 1-2 Views Left (01/16/2025 12:48 PM EDT) Anatomical Region Laterality Modality Upper Extremities, Elbow Left Radiogr aphic Imaging Historical Provider IMG XR PROCEDURES Final R esult * HPV DNA, Low/High Risk (01/13/2025 4:39 PM EDT) HPV High Risk Negative Negative [facility] HPV Genotype 16 Negative Negative [facility] HPV Genotype 18 Negative Negative [facility] Comment:HPV testing performe d at [facility] (CLIA#[id number]), [address] [place] [address].Testing for HPV was performed using the Mirela [...] Provider LAB BLOOD ORDERAB LES Final Result [facility] [address] [place] [phone] * Pap Smear (01/13/2025 4:39 PM EDT) 01/13/2025 4:39 PM EDT 01/14/2025 1:27 PM EDT Narrative [facility] - 01/21/2025 10:02 AM EDT ----- ------- Name: Ambika Mcdermott Age/Sex: 39/F : 1985 Unit#: [id number] Attend Dr: Vicente Mooney MD Re01/13/25 Status: DEP REF Location: HO.LNP Disch: ----- ------- SPEC : [id number] RECD: 01/14/25-1326 STATUS: OLIMPIA IQBAL NUM: [id number] BILLY: 01/13/25-[address] [facility] [address]: Vicente Mooney MD ENTERED: 01/14/25-9393 SP TYPE: Pap Smr OTHR DR: Petra Wiley WELDING MACHINE OPERATOR ORDERED: Pap Smear Interpretation Satisfactory for evaluation. [...] and HPV testing will be performed at [facility] (CLIA #[id number]), [address] [place] [address]. Testing for HPV was performed using the [employer] SRI 6800 system. The presence of HPV [...] detected. All professional services are performed by [facility] ([address] [place] [address]; ; CLIA #[id number]). The PAP Test is a screening procedure with the inherent possibility of both false negative and false positive results. Results should be interpreted in the context of historic and current clinical findings. Reliability of the PAP Test is enhanced by performing the test on a regular repetitive basis. CONTINUED ON NEXT PAGE ----- ------- Name: Ambiak Mcdermott Age/Sex: 39/F : 1985 Unit#: [id number] Attend Dr: Vicente Mooney MD Re01/13/25 Status: DEP REF Location: [facility] Disch: ----- ------- SPEC : [id number] RECD: 01/14/25 STATUS: OLIMPIA IQBAL NUM: [id number] BILLY: 01/13/25-[address] [facility] [address]: Vicente Mooney MD ENTERED: 01/14/25 SP TYPE: Pap Smr OTHR DR: Petra Wiley ORDERED: Pap Smear Copies To: Petra Wiley [address] [place] [address] Vicente Mooney MD [facility] Women's Services [address] [place] [address] [address] [place] [phone] ----- ------- Signed (signature on file) SIOMARA Portillo ([facility]) 01/21/25 1002 ----- ------- END OF REPORT Generic External Data Provider LAB CYTOLOGY KEN MCDONALD Final Result Performing Organization Address City/[facility]/ZIP Co de Phone Number [facility] [address] [place] [address] [phone] * (ABNORMAL) Bacterial Vaginosis (01/13/2025 3:31 PM EDT) TRICHOMONAS VAGINALIS DETECTION BY PCR NOT DETECTED Not Detect [facility] BACTERIAL VAGINOSIS DETECTION BY PCR NEGATIVE Negative [facility] Comment:The BV organism targ ets of [...] GROUP DETECTION BY PCR DETECTED(A) Not Detect [facility] Eva glab krusei PCR NOT DETECTED Not Detect [facility] 01/13/2025 3:31 PM EDT 01/14/2025 12:22 PM EDT us Generic External Data Provider LAB MICROBIOLOGY - GENERAL ORDERABLES Final Result Performing Organization Address [facility]/ZIP Co de Phone Number [facility] [address] [place] [address] [phone] * Chlamydia/N. Gonorrhoeae RNA, TMA, Urogenitial (01/13/2025 3:31 PM EDT) CT PCR NOT DETECTED Not Detect. [facility] Comment:A not detected test result does [...] psychologicalconsequences. NG PCR NOT DETECTED Not Detect. [facility] Comment:A not detected test result does [...] GENERAL ORDERABLES Final Result Performing Organization Address City/State/[facility] Co de Phone Number [facility] [address] [place] [phone] * CT Abdomen Pelvis w/ Contrast (01/08/2025 8:17 AM EDT) Anatomical Region Laterality Modality Body, Pelvis, Abdomen Computed T omography 01/08/2025 8:17 AM EDT Narrative 01/08/2025 9:56 AM EDT [address] [address] [address] Scan Report Signed Patient: Ambika Mcdermott MR#: [id number] : 1985 Acct:[id number] Age/Sex: 39 / F ADM Date: 01/08/25 Loc: HO.ED Attending Dr: Ordering Physician: Mateo Escobedo MD Date of Service: 01/08/25 Procedure(s): CT abdomen pelvis w IV con Accession Number(s): [id number] cc: Mateo Escobedo MD; Petra Wiley [facility] Report Number: [id number]: Total DLP = 543.00 mGy-cm EXAMINATION: CT [...] 01/08/25 0953 DD/ 0817 TD/TT: 01/08/25 0937 Parts Room Clerk: Procedure Note Donotuseinterpreter, Image - 01/08/[address] [place] [address] [address] Scan Report Signed Patient: Ambika McdermottMR#: [id number] : 1985Acct:[id number] Age/Sex: 39 / FADM Date: 01/08/25 Loc: HO.ED Attending Dr: Ordering Physician: Mateo Escobedo MD Date of Service: 01/08/25 Procedure(s): CT abdomen pelvis w IV con Accession Number(s): [id number] cc: Mateo Escobedo MD; Petra Wiley WELDING MACHINE OPERATOR Report Number: [id number]: Total DLP = 543.00 mGy-cm EXAMINATION: CT [...] Corky Priest MD 01/08/2025 09:53 AM EDT RP Dictated By: Corky Priest MD Signed By: <Electronically signed by Corky Priest MD in OV> 01/08/25 0953 DD/ 6 TD/TT: 01/08/25 0937 Parts Room Clerk: [facility] External Provider IMG CT PROCEDURES Edited Result - Final * Urinalysis w/reflex microscopic (01/08/2025 7:03 AM EDT) Color Urine Yellow [facility] Appearance Urine Clear [facility] PH 5.5 5.0 - 9.0 [facility] Glucose Urine UA Negative Negative mg/dL [facility] Urine Blood Negative Negative [facility] Specific [place] - Urine 1.020 1.005 - 1.025 [facility] Urine Protein Negative Neg-Trace mg/dL [facility] Urine Ketones Negative Negative mg/dL [facility] Nitrite Urine Negative Negative [facility] Leukocyte Esterase Urine Negative Negative [facility] 01/08/2025 7:03 AM EDT 01/08/2025 7:08 AM EDT Narrative [facility] - 01/08/2025 7:33 AM EDT Urine, Clean Catch Generic External Data Provider LAB URINE ORDERAB LES Final Result [facility] [address] [place] [phone] * High Sensitivity Troponin I (01/08/2025 5:54 AM EDT) TROPONIN I HIGH SENSITIVITY <2.7 <3.5 - 17.0 ng/L [facility] Comment:[place] high sens itivity Troponin-I results should beused in conjunction with other diagnostic information suchas ECG, clinical observations and information, and patientsymptoms to aid in the diagnosis of DE. 01/08/2025 5:54 AM EDT 01/08/2025 5:59 AM EDT us Generic External Data Provider LAB BLOOD ORDERAB LES Final Result [facility] [address] [place] [address] [phone] * (ABNORMAL) CBC auto differential (01/08/2025 5:54 AM EDT) Only the most recent of3 resultswithin the time period is included. White Blood Count 12.4(H) 4.8 - 10.8 X10*3/uL [facility] Red Blood Count 4.99 4.20 - 5.50 X10*6/uL [facility] Hemoglobin 13.2 12.0 - 16.0 g/dl [facility] Hematocrit 41.4 37.0 - 47.0 % [facility] Mean Corpuscular Volume 83.0 80.0 - 98.0 fL [facility] Mean Corpuscular Hemoglobin 26.5(L) 27.0 - 33.0 pg [facility] Mean Corpuscular HGB Conc 31.9 31.0 - 35.0 g/dl [facility] Red Cell Distribution Width 15.3 11.0 - 16.0 % [facility] Platelet Count 271 160 - 400 X10*3/uL [facility] Mean Platelet Volume 11.2 9.4 - 12.3 fL [facility] Neutrophils Percent Auto 77.5(H) 45 - 73 % [facility] Imm Gran Pct Auto 1.1(H) 0.0 - 0.4 % [facility] Lymphocytes Percent Auto 15.0(L) 20 - 40 % [facility] Monocytes Percent Auto 5.2 2 - 11 % [facility] Eosinophils Percent Auto 0.8 0 - 4 % [facility] Basophils Percent Auto 0.4 0 - 2 % [facility] NRBC Pct Auto 0.0 0.0 - 0.2 /100WBC [facility] Neutrophils Absolute Auto 9.6(H) 2.0 - 8.3 x10*3/uL [facility] Imm Gran Abs Auto 0.14(H) 0.00 - 0.03 X10*3/uL [facility] Lymphocytes Absolute Auto 1.9 1.2 - 4.9 X10*3/uL [facility] Monocytes Absolute Auto 0.6 0.1 - 1.2 X10*3/uL [facility] Eosinophils Absolute Auto 0.1 0.0 - 0.4 X10*3/uL [facility] Basophils Absolute Auto 0.1 0.0 - 0.2 X10*3/uL [facility] NRBC Abs Auto 0.000 0.0 - 0.012 X10*3/uL [facility] 01/08/2025 5:54 AM EDT 01/08/2025 5:59 AM EDT us Generic External Data Provider LAB BLOOD ORDERAB LES Final Result [facility] [address] [place] [address] [phone] * hCG, Total, Quantitative (01/08/2025 5:54 AM EDT) Only the most recent of2 resultswithin the time period is included. HCG Quantitative <2 mIU/mL [facility] Comment:Weeks post LMP Appro ximate hCG(Last Menstrual Period) Range (mIU/ml)3 - 4 weeks 9 - 1304 - 5 weeks 75 - 2,6005 - 6 weeks 850 - 20,8006 - 7 weeks 4000 - 100,2007 - 12 weeks 11,500 - 289,44986 - 16 weeks 18,300 - 137,92820 - 29 weeks (2nd trimester) 1,400 - 53,40325 - 41 weeks (3rd trimester) 940 - [...] ORDERAB LES Final Result Performing Organization Address [facility]/ZIP Co de Phone Number [facility] [address] [place] [phone] * Lipase (01/08/2025 5:54 AM EDT) Only the most recent of2 resultswithin the time period is included. Lipase 28 8 - 78 U/L [facility] 01/08/2025 5:54 AM EDT 01/08/2025 5:59 AM EDT Generic External Data Provider LAB BLOOD ORDERAB LES Final Result Performing Organization Address [facility] de Phone Number [facility] [address] [place] [phone] * (ABNORMAL) Comprehensive Metabolic Panel (01/08/2025 5:54 AM EDT) Only the most recent of3 resultswithin the time period is included. Sodium 140 135 - 145 mmol/L [facility] Potassium 3.9 3.3 - 5.1 mmol/L [facility] Chloride 109(H) 96 - 108 mmol/L [facility] Carbon Dioxide 24 22 - 29 mmol/L [facility] Anion Gap 11(L) 12 - 20 [facility] Urea Nitrogen (BUN) 8(L) 9 - 16 mg/dL [facility] Creatinine, Serum 0.61 0.5 - 1.4 mg/dL [facility] Creatinine Clr Calc Pharmacy 111.6 [facility] Comment:Provided height and weight: 152.4 cm,71.8 kg.eGFR (calculated from the MDRD study equation) and eCrCl(calculated from the Cockcroft-Gault equation) are based ondifferent parameters and may not yield comparable results.If eCrCl result is absurd, please check patient'sheight/weight. Estimated Glomerular Filt Rate >60 [facility] Comment:Chronic Kidney Disea se: Estimated GFR < 60 mL/min/1.49z4Enlzbm Kidney Disease: Estimated GFR < 15 mL/min/1.73m2 Glucose 111 60 - 115 mg/dL [facility] Calcium 9.2 8.4 - 10.2 mg/dL [facility] Bilirubin, Total 0.2 0.0 - 1.0 mg/dL [facility] Aspartate Amino Transferase 18 5 - 31 U/L [facility] Alanine Aminotransferase 19 0 - 31 U/L [facility] Total Protein 7.5 6.5 - 8.0 g/dL [facility] Albumin Level 4.6 3.5 - 5.0 g/dL [facility] Alkaline Phosphatase 68 39 - 117 U/L [facility] 01/08/2025 5:54 AM EDT 01/08/2025 5:59 AM EDT us Generic External Data Provider LAB BLOOD ORDERAB LES Final Result Performing Organization Address City/State/[facility] Co de Phone Number [facility] [address] [place] [phone] * CT Abdomen Pelvis w/o Contrast (12/16/2024 3:24 PM EDT) Anatomical Region Laterality Modality Body, Pelvis, Abdomen Computed T omography 12/16/2024 3:24 PM EDT Narrative 12/16/2024 5:00 PM EDT [address] [address] [address] Scan Report Signed Patient: Ambika Mcdermott MR#: [id number] : 1985 Acct:[id number] Age/Sex: 39 / F ADM Date: 12/16/24 Loc: HO.ED Attending Dr: Ordering Physician: Osman Mathew MD Date of Service: 12/16/24 Procedure(s): CT abdomen pelvis wo IV con Accession Number(s): [id number] cc: Osamn Mathew MD; Petra Wiley [facility] Report Number: [id number]: Total DLP = 553.00 mGy-cm EXAMINATION: CT [...] 12/16/24 1657 DD/ 1524 TD/TT: 12/16/24 1635 Parts Room Clerk: Procedure Note Donotuseinterpreter, Image - 12/16/[address] [place] [address] [address] Scan Report Signed Patient: Ambika McdermottMR#: [id number] : 1985Acct:[id number] Age/Sex: 39 / FADM Date: 12/16/24 Loc: HO.ED Attending Dr: Ordering Physician: Osman Mathew MD Date of Service: 12/16/24 Procedure(s): CT abdomen pelvis wo IV con Accession Number(s): [id number] cc: Osman Mathew MD; Petra Wiley [facility] Report Number: [id number]: Total DLP = 553.00 mGy-cm EXAMINATION: CT [...] 12/16/24 1657 DD/ 1524 TD/TT: 12/16/24 1635 Parts Room Clerk: [place] External Provider IMG CT PROCEDURES Final Result * (ABNORMAL) Urinalysis, Complete, with Reflex to Culture (12/16/2024 3:20 PM EDT) Color Urine Yellow [facility] Appearance Urine Clear [facility] PH 5.5 5.0 - 9.0 [facility] Glucose Urine UA Negative Negative mg/dL [facility] Urine Blood Negative Negative [facility] Specific [place] - Urine 1.020 1.005 - 1.025 [facility] Urine Protein Negative Neg-Trace mg/dL [facility] Urine Ketones Trace Negative mg/dL [facility] Nitrite Urine Negative Negative [facility] Leukocyte Esterase Urine Small (1+)(A) Negative [facility] RBC Urine 0-2 0 - 2 /HPF [facility] Urine WBC 0-5 0 - 5 /HPF [facility] Urine Squamous Epithelial Cell 0-2 0 - 2 /HPF [facility] Urine Bacteria None Seen None Seen [facility] Hyaline Casts, Urine 0-2 0 - 2 /LPF [facility] 12/16/2024 3:20 PM EDT 12/16/2024 3:49 PM EDT Narrative [facility] - 12/16/2024 4:06 PM EDT [id number], Clean Catch Generic External Data Provider LAB URINE ORDERAB LES Final Result Performing Organization Address City/[facility]/ZIP Co de Phone Number [facility] [address] [place] [phone] * Culture, Urine, Routine (12/16/2024 12:00 AM EDT) Urine Urine specimen obtained by clean catch procedure / Unknown 12/16/2024 12/16/2024 Comment:[facility] - 12/18/2024 11:46 AM EDT Urine Culture Report Result Urine Culture < 10,000 cfu/ml Specimen Source: Urine clean catch Generic External Data Provider LAB MICROBIOLOGY - GENERAL ORDERABLES Final Result Performing Organization Address City/[facility]/ZIP Co de Phone Number [facility] [address] [place] [phone] * Hemoglobin A1c (11/26/2024 2:45 PM EDT) Hemoglobin A1c 5.0 <6.0 % [facility] Comment:Hemoglobin A1C Refer ence Range Adults: 4.8 - 6.0 % Non diabetic: < 6.0 % Goal: < 7.0 %Additional Action Suggested: > 8.0 %Note: Hemoglobin A1c results are invalid for patients with abnormal amounts of HbF. Blood transfusions may impact the HbA1c concentration in the patient sample. Estimated Average Glucose 97 mg/dL [facility] Comment:eAG = Estimated ave rage glucose which is %A1C expressed asaverage glucose, using the formula of the N1V-FxdgcscNbkjuwj Glucose study (ADAG), Diabetes Care, Vol.31,#8,Jan. 2007 Blood Venous blood specimen / Unknown 11/26/2024 2:45 PM EDT 11/26/2024 2:45 PM EDT us Petra Wiley WELDING MACHINE OPERATOR LAB BLOOD ORDERABLES Final Res ult [facility] [address] [place] [phone] * (ABNORMAL) Lipid Panel, Standard (11/26/2024 2:45 PM EDT) Triglycerides 101 <150 mg/dL [facility] Comment:Desirable Triglyceri de: less than 150 mg/dLBorderline High Triglyceride 150-199 mg/dLHigh Triglyceride: 200-499 mg/dLVery High Triglyceride: greater than or equal to 5OO mg/dL Cholesterol 208(H) <200 mg/dL [facility] Comment:Desirable Cholestero l: less than 200 mg/dLBorderline High Cholesterol: 200-239 mg/dLHigh Cholesterol: greater than 239 mg/dL LDL Cholesterol Calculated 140(H) <100 mg/dL [facility] Comment:Desirable LDL: less than 100 mg/dLNear Optimal/Above Optimal LDL: 110- 129 mg/dLBorderline High LDL: 130-159 mg/dLHigh LDL: 160-189 mg/dLVery High LDL: greater than or equal to 190 mg/dL HDL Cholesterol 48 >40 mg/dL [facility] Comment:Desirable HDL: great er than 40 mg/dL Note: This HDL assay may give artificially low results in patients with liver disease. Blood Venous blood specimen / Unknown 11/26/2024 2:45 PM EDT 11/26/2024 2:45 PM EDT Petra Wiley WELDING MACHINE OPERATOR LAB BLOOD ORDERABLES Final Res ult [facility] [address] [place] [phone] * XR Hand 3+ Views Left (11/25/2024 8:34 PM EDT) Anatomical Region Laterality Modality Upper Extremities, Hand Left Radiogra phic Imaging 11/25/2024 8:34 PM EDT Narrative 11/25/2024 8:35 PM EDT [address] [address] XRay Report Signed Patient: Ambika Mcdermott MR#: [id number] : 1985 Acct:[id number] Age/Sex: 39 / F ADM Date: 11/25/24 Loc: RONEL Attending Dr: Petra Wiley WELDING MACHINE OPERATOR Ordering Physician: Petra Wiley Date of Service: 11/25/24 Procedure(s): XR hand LT min 3V Accession Number(s): [id number] cc: Petra Wiley CLINICAL HISTORY: 39 y [...] in OV> 11/25/242033 DD/ 33 TD/TT: 11/25/242033 Parts Room Clerk: Procedure Note Donotuseinterpreter, Image - 11/25/2024 [address] [place] [address] XRay Report Signed Patient: Ambika McdermottMR#: [id number] : 1985Acct:[id number] Age/Sex: 39 / FADM Date: 11/25/24 Loc: HO.XRAY Attending Dr: Petra LUCERO Ordering Physician: Petra Wiley Date of Service: 11/25/24 Procedure(s): XR hand LT min 3V Accession Number(s): [id number] cc: Petra Wiley CLINICAL HISTORY: 39 y [...] in OV> 11/25/242033 DD/ 33 TD/TT: 11/25/242033 Parts Room Clerk: Petra LUCERO IMG XR PROCEDURES Final Result * Pathologist Review Of Peripheral Smear (11/19/2024 4:26 PM EDT) Pathologist Review - CBC SEE NOTE [facility] Comment:- Unremarkable perip heral smear.Reviewed by Alysia Moncada MD Blood Venous blood specimen / Unknown 11/19/2024 4:26 PM EDT 11/19/2024 4:26 PM EDT Petra Wiley [facility] BLOOD ORDERABLES Final Res ult [facility] [address] [place] [phone] * Iron And Total Iron Binding Capacity (11/19/2024 4:26 PM EDT) Iron 89 30 - 160 mcg/dL [facility] Total Iron Binding Capacity 298 228 - 428 mcg/dL [facility] Percent Iron Saturation 30 15 - 50 % [facility] Unsaturated Iron Binding 209 ug/dL [facility] Blood Venous blood specimen / Unknown 11/19/2024 4:26 PM EDT 11/19/2024 4:26 PM EDT us Petra Phalen WELDING MACHINE OPERATOR LAB BLOOD ORDERABLES Final Res ult Performing Organization Address [facility]/ZIP Co de Phone Number [facility] [address] [place] [phone] * Lactate Dehydrogenase (LD) (11/19/2024 4:26 PM EDT) Lactate Dehydrogenase 135 122 - 220 U/L [facility] Blood Venous blood specimen / Unknown 11/19/2024 4:26 PM EDT 11/19/2024 4:26 PM EDT Petra Wiley WELDING MACHINE OPERATOR LAB BLOOD ORDERABLES Final Res ult Performing Organization Address [facility] Co de Phone Number [facility] [address] [place] [phone] * Ferritin (11/19/2024 4:26 PM EDT) Ferritin 116 10 - 122 ng/mL [facility] Blood Venous blood specimen / Unknown 11/19/2024 4:26 PM EDT 11/19/2024 4:26 PM EDT us Petra Phalen WELDING MACHINE OPERATOR LAB BLOOD ORDERABLES Final Res ult Performing Organization Address [facility] Co de Phone Number [facility] [address] [place] [phone] * BI Mammogram Diagnostic Tomosynthesis Bilateral (09/01/2024 12:30 PM EDT) Anatomical Region Laterality Modality Breast Bilateral Mammography 09/01/2024 12:3 0 PM EDT Narrative 09/01/2024 3:58 PM EDT [facility] [address] [place], [place] [address] Mammography Report Signed Patient: Ambika Mcdermott MR#: [id number] : 1985 Acct:[id number] Age/Sex: 39 / F ADM Date: 09/01/24 Loc: HO.MAMMO Attending Dr: Petra Wiley WELDING MACHINE OPERATOR Ordering Physician: Petra Wiley WELDING MACHINE OPERATOR Results: 3.6MPr obably Benign Finding - Short 6 M F/U Suggested Date of Service: 09/01/24 Follow Up: 6 Month F/U Procedure(s): MM tomosynthesis diagnostic BI Accession Number(s): [id number] cc: Petra Wiley WELDING MACHINE OPERATOR EXAMINATION: MM DIAGNOSTIC DIGITAL BREAST TOMOSYNTHESIS, [...] 09/01/24 1555 DD/ 1230 TD/TT: 09/01/24 1332 Parts Room Clerk: Procedure Note Donotuseinterpreter, Image - 09/01/2024 [facility] [address] [place], [place] [address] Mammography Report Signed Patient: Ambika McdermottMR#: [id number] : 1985Acct:[id number] Age/Sex: 39 / FADM Date: 09/01/24 Loc: HO.MAMMO Attending Dr: Petra Wiley WELDING MACHINE OPERATOR Ordering Physician: Petra Wiley FNPResults: 3.6MPr obably Benign Finding - Short 6 M F/U Suggested Date of Service: 09/01/24Follow Up: 6 Month F/U Procedure(s): MM tomosynthesis diagnostic BI Accession Number(s): [id number] cc: Petra Wiley WELDING MACHINE OPERATOR EXAMINATION: MM DIAGNOSTIC DIGITAL BREAST TOMOSYNTHESIS, [...] 09/01/24 1555 DD/ 1230 TD/TT: 09/01/24 1332 Parts Room Clerk: Petra Wiley WELDING MACHINE OPERATOR IMG BI PROCEDURES Final Result * Hepatitis C Viral RNA, Quantitative, Real-Time PCR (03/18/2024 2:05 PM EDT) Hepatitis C Viral Load <15 NOT DETECTED NOT DETECTED IU/mL [facility] HCV Log PCR <1.18 NOT DETECTED NOT DETECTED Log IU/mL [facility] Comment:For additional infor mation, please refer tohttp://education.[employer]/faq/HCG20z7(This link is being provided for informational/educational purposes only.)THIS TEST WAS PERFORMED AT:[facility] [place] [id number] DEL CID MD Blood 03/18/2024 2:05 PM EDT 03/18/2024 2:05 PM EDT Petra Wiley [facility] BLOOD ORDERABLES Final Res ult Performing Organization Address [facility]/ZIP Co de Phone Number [facility] [address] [place] [phone] * HIV-1/2 Antigen and Antibodies, Fourth Generation, with Reflexes (03/18/2024 2:05 PM EDT) HIV AB/AG Nonreactive Nonreactive [facility] Comment:HIV-1 p24 Ag and/or HIV-1/HIV-2 Ab not detected.A test result that is nonreactive does not exclude thepossibility of exposure to or infection with HIV-1 and/orHIV-2. Nonreactive results in this assay for individualswith prior exposure to HIV-1 and/or HIV-2 may be due toantigen and antibody levels that are below the limit ofdetection of this assay.The [employer] HIV Ag/Ab Combo assay result andsupplemental assay results should be interpreted inconjunction with the patient's clinical presentation,history and other laboratory results. If the results areinconsistent with clinical evidence, additional testing issuggested to confirm the result. 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 Relationship Specialty Start Date End Date Petra Wiley FNP [address] [place], [place] [address]modesto Bowser [place] PCP - General Family Medicine 03/17/24 Willard Waters [address] Rheumatology 05/17/24 Sumaya Kessler [address] [place] [address] Gastroenterology 05/17/24 Juan Sandra MD [address] [place] [phone] Hematology and Oncology 05/17/24 Brigid Guy NP [address] [place] [address] Urology 05/17/24 Vicente Mooney MD [address] [place] [address] [address] [place] [address] Obstetrics and Gynecology 05/17/24 Beth Rai MD [address] [place] [address] [place] [address] Neurology 05/17/24 Michell Espinoza [address] [place] [address] Cardiology 05/17/24 [facility] Pbx InspectorBiosecurity Officer 09/26/23
--- OUTSIDE RECORDS SUMMARY | 2025-02-12 16:10 | XMS_ITS | Clinical Summary ---
Author Organization [facility] Address [address] [place] [address] Phone Care Team Providers Care Manufacturing Engineer Chief Name Role Phone Karolina Murray MD Primary Care Provider [phone] Allergies Active Allergy Reactions Criticality Noted Date [...] topic Medical Devices Not on file Insurance [facility] C3 ACO [facility] C3 [place] [id number] [place] [id number] [place] [address] C[place] [address] [facility] C3 ACO Care Teams Manufacturing Engineer Chief Relationship Specialty Start Date End Date Karolina Murray MD [address] [place] [address] [place] [phone] PCP - General Internal Medicine 09/12/21 Additional Source Comments The information contained in this document represents components of the legal health record. It is not the complete legal health record.[facility]
--- OUTSIDE RECORDS SUMMARY | 2025-02-12 16:10 | XMS_ITS | Encounter Summary ---
Author Organization [employer] Address [address] [place] [address] Care Team Providers Care Bindery Machine Setter/Set Up Operator Name Role Phone Petra Wiley NIGHT FILLER Primary Care Provider Willard Waters Unavailable [phone] September Unavailable Juan Sandra MD Unavailable [phone] Brigid Guy NP Unavailable Vicente Mooney MD Unavailable Beth Rai MD Unavailable Michell Espinoza Unavailable Reason for Visit * Reason Onset Date Comments Referral 12/02/2024 Encounter Details Date Type Department Care Team ([facility] st Contact Info) Description 12/02/2024 Telephone [facility]EDS [address] [place], [place] [phone] Petra Wiley FNP [address] [place], [place] [phone] Referral Social History Tobacco Use Types Packs/Day [...] has one scheduled for today 12/02 at [facility] [address]. [address], [place] [address] , pt iswondering if both hands can be checked at the same time. PT is requesting a call back. Contact pt at [phone] (lao) documented in this encounter Plan of Treatment Upcoming Encounters Date Type Department Care Team ([facility] st Contact Info) Description 02/23/2025 1:00 PM EDT Clinical Support [facility] DIABETES/NUTRITION [address] [place] [address] Tamanna Mcintyre, RD [address] [place] [address] documented as of this encounter Visit Diagnoses Not on filedocumented in this encounter Additional Health Concerns Assessment Noted Time PHQ-9 Depression Total Score: 8 11/26/19 25 5:52 PM EDT documented as of this encounter Care Teams Bindery Machine Setter/Set Up Operator Relationship Specialty Start Date End Date Petra Wiley FNP [address] [place] [address] PCP - General Family Medicine 03/17/24 Willard Waters [address] [place] [address] Rheumatology 05/17/24 Sumaya Kessler [address] [address] Gastroenterology 05/17/24 Juan Sandra MD [address] [place] [address] Hematology and Oncology 05/17/24 Brigid Guy NP [address] [facility] [address] [place] [address] Urology 05/17/24 Vicente Mooney MD [address] [place] [address] [address] [place] [address] Obstetrics and Gynecology 05/17/24 Beth Rai MD [address] [place] [address] [address] [place] [address] Neurology 05/17/24 Michell Espinoza [address] [facility] [address] [place] [address] Cardiology 05/17/24 [facility] Import/Export AgentVideo Game Engineer 09/26/23 documented as of this encounter
--- OUTSIDE RECORDS SUMMARY | 2025-02-12 16:10 | XMS_ITS | Clinical Summary ---
Author Organization [facility] Address [address] [place] [address] Care Team Providers Care Correction Lieutenant Name Role Phone Petra Wiley Primary Care Provider [phone] Allergies Active Allergy Reactions Criticality Noted Date [...] Description 02/09/2025 10:15 AM EDT Office Visit [facility] D[facility]atology Clinic [address] [place] [address], [place] [phone] Spray Painter Helper: Breann Tang MD Raynaud's phenomenon without gangrene (Primary Dx) 01/18/2025 3:40 PM EDT Office Visit [facility] [address] [place] [address] Shavon Roberson NP Iron deficiency (Primary Dx) 12/31/2024 Results Follow-Up [facility] Rheumatology Clinic [address] [place] [address] Spray Painter Helper: Mary Senior LPN 12/02/2024 Telephone [facility] Rheumatology [facility] [address] [place] [address] Spray Painter Helper: [place] Rangel DO from Last 3 Months [...] Description 03/04/2025 3:00 PM EDT Office Visit [facility] Women[facility] Care [address] [place] [address] Spray Painter Helper: Shasha Campos PA [address] [place] [address] 04/19/2025 1:20 PM EST Lab [facility] ACC Draw Site Fifth Floor [address] [place] [address] 04/19/2025 2:20 PM EST Follow-Up [facility] BMT Clinic [address] [place] [address] Shavon Roberson NP [address] [place] [address] Health Maintenance Due Date Last Done Comments [...] Years) Completed 05/13/2024 Procedures * Due to [place] state law, this organization might not be [...] Last 3 Months Results * Due to [place] state law, this organization might not be sharing negative HIV tests. * Iron Saturation (01/18/2025 4:51 PM EDT) Iron Saturation 30 20 - 50 % 6:03 PM EDT [employer] [facility] Iron 104 30 - 160 ug/dL 01/18/2025 6:03 PM EDT [facility] Transferrin 274 200 - 360 mg/dL 01/18/2025 6:03 PM EDT [facility] Total Iron Binding Capacity 343 255 - 450 ug/dL 01/18/2025 6:03 PM EDT [employer] [facility] Blood Structure of peripheral vein / Unknown Venipuncture / Unknown 01/18/2025 4:51 PM EDT 01/18/2025 5:17 PM EDT Shavon Roberson CLEANER LAB BLOOD ORDERABLES F inal Result [facility] [address] [place] [address], * (ABNORMAL) CBC Auto Differential (01/18/2025 4:51 PM EDT) WBC 10.2 3.8 - 10.8 10*3/uL 01/18/2025 5:12 PM EDT [facility] RBC 4.67 3.80 - 5.10 10*6/uL 01/18/2025 5:12 PM EDT [facility] Hemoglobin 12.4 11.7 - 15.5 g/dL 01/18/2025 5:12 PM EDT [facility] Hematocrit 39.3 35.0 - 45.0 % 01/18/2025 5:12 PM EDT [facility] MCV 84.2 80.0 - 100.0 fL 01/18/2025 5:12 PM EDT [facility] MCH 26.6(L) 27.0 - 33.0 pg 01/18/2025 5:12 PM EDT [facility] MCHC 31.6(L) 32.0 - 36.0 g/dL 01/18/2025 5:12 PM EDT [facility] RDW 14.8 11.0 - 15.0 % 01/18/2025 5:12 PM EDT [facility] Platelets 264 140 - 400 10*3/uL 01/18/2025 5:12 PM EDT [facility] [facility] [facility] MPV 12.1 7.5 - 12.5 fL 01/18/2025 5:12 PM EDT [facility] Neutrophil % 68.8 % 01/18/2025 5:12 PM EDT [facility] Immature Grans % 0.2 0.0 - 0.9 % 01/18/2025 5:12 PM EDT [facility] Lymphocyte % 22.2 % 01/18/2025 5:12 PM EDT [facility] Monocyte % 6.5 % 01/18/2025 5:12 PM EDT [employer] [facility] Eosinophil % 1.7 % 01/18/2025 5:12 PM EDT [facility] Basophil % 0.6 % 01/18/2025 5:12 PM EDT [facility] Neutrophil # 7.04 1.50 - 7.80 10*3/uL 01/18/2025 5:12 PM EDT [facility] Immature Grans # <0.03 <=0.03 10*3/uL 01/18/2025 5:12 PM EDT [facility] Lymphocyte # 2.30 0.85 - 3.90 10*3/uL 01/18/2025 5:12 PM EDT [facility]ENTEREnvision PharmaceuticalDC [facility] Monocyte # 0.70 0.20 - 0.95 10*3/uL 01/18/2025 5:12 PM EDT [facility]ERSparCodePROM[facility] Eosinophil # 0.20 0.02 - 0.50 10*3/uL 01/18/2025 5:12 PM EDT [employer]SDEnvision PharmaceuticalDC [facility] Basophil # 0.10 0.00 - 0.20 10*3/uL 01/18/2025 5:12 PM EDT [facility]ERSparCodeKING[facility] LAB[facility] nRBC % 0.0 /100 WBCs 01/18/2025 5:12 PM EDT [facility]ERSparCodeKING'[facility] nRBC # <0.01 <0.01 10*3/uL 01/18/2025 5:12 PM EDT [facility] Total Neutrophil #, Preliminary 7.04 1.50 - 7.80 10*3/uL 01/18/2025 5:12 PM EDT [facility] Blood Structure of peripheral vein / Unknown Venipuncture / Unknown 01/18/2025 4:51 PM EDT 01/18/2025 5:07 PM EDT Shavon Roberson CLEANER LAB BLOOD ORDERABLES F inal Result [facility] [address] [place] [address], * Reticulocytes (01/18/2025 4:51 PM EDT) Retic % 0.8 0.5 - 1.6 % 01/18/2025 5:12 PM EDT [employer] TechnologiesSDSparCodePROMEDICA [facility]OST[facility] Retic # 0.04 0.02 - 0.08 10*6/uL 01/18/2025 5:12 PM EDT [employer] [facility] Blood Structure of peripheral vein / Unknown Venipuncture / Unknown 01/18/2025 4:51 PM EDT 01/18/2025 5:07 PM EDT Sh[facility]on [place] Dipinto CLEANER LAB BLOOD ORDERABLES F inal Result [employer] [facility] [address] [place] [address], [place] * (ABNORMAL) Lactate Dehydrogenase (01/18/2025 4:51 PM EDT) LDH 247(H) 135 - 225 U/L 01/18/2025 5:40 PM EDT [employer] [facility] Blood Structure of peripheral vein / Unknown Venipuncture / Unknown 01/18/2025 4:51 PM EDT 01/18/2025 5:07 PM EDT [facility]onTsavo Med[employer] Dipinto CLEANER LAB BLOOD ORDERABLES F inal Result Performing Organization Address [facility]/ZIP Co de Phone Number [employer] [facility] [address] [place] [address], [place] * Folate (01/18/2025 4:51 PM EDT) Folate 16.4 4.8 - 24.2 ng/mL 01/18/2025 6:03 PM EDT [employer] [facility] Blood Structure of peripheral vein / Unknown Venipuncture / Unknown 01/18/2025 4:51 PM EDT 01/18/2025 5:17 PM EDT Shavon [place] Dipinto CLEANER LAB BLOOD ORDERABLES F inal Result [employer] [facility] [address] [place] [address], [place] * Ferritin (01/18/2025 4:51 PM EDT) Pathologist [facility] Ferritin 110.0 11.0 - 306.0 ng/mL 01/18/2025 6:03 PM EDT [facility] Blood Structure of peripheral vein / Unknown Venipuncture / Unknown 01/18/2025 4:51 PM EDT 01/18/2025 5:17 PM EDT [facility] CityShavonTsavo Mediale Ini[facility] Digitalformerly [facility] CLEANER LAB BLOOD ORDERABLES F inal Result Performing Organization Address City/[facility]/ZIP Co de Phone Number [facility] [address] [place] [address], * Vitamin B12 (01/18/2025 4:51 PM EDT) Pathologist [facility] Vitamin B12 384 232 - 1,245 pg/mL 01/18/2025 6:03 PM EDT [facility] Blood Structure of peripheral vein / Unknown Venipuncture / Unknown 01/18/2025 4:51 PM EDT 01/18/2025 5:17 PM EDT [facility] CLEANER LAB BLOOD ORDERABLES F inal Result Performing Organization Address City/[facility]/ZIP Co de Phone Number [facility] [address] [place] [address], * (ABNORMAL) Comprehensive Metabolic Panel (01/18/2025 4:51 PM EDT) Pathologist [facility] NA 138 135 - 145 mmol/L 01/18/2025 6:03 PM EDT [employer] [facility] K 3.9 3.5 - 5.3 mmol/L 01/18/2025 6:03 PM EDT [facility] Cl 104 98 - 107 mmol/L 01/18/2025 6:03 PM EDT [facility] CO2 22 22 - 32 mmol/L 01/18/2025 6:03 PM EDT [employer] [facility] Anion Gap 12 5 - 15 01/18/2025 6:03 PM EDT [employer] [facility] Glucose 120(H) 65 - 99 mg/dL 01/18/2025 6:03 PM EDT [employer] [facility] Creatinine 0.62 0.50 - 1.20 mg/dL 01/18/2025 6:03 PM EDT [employer] [facility] Calcium 9.4 8.6 - 10.5 mg/dL 01/18/2025 6:03 PM EDT [employer] [facility] Total Protein 7.3 6.0 - 8.0 g/dL 01/18/2025 6:03 PM EDT [employer] [facility] Albumin 4.3 3.5 - 5.2 g/dL 01/18/2025 6:03 PM EDT [employer] [facility] Bilirubin, Total 0.2 0.2 - 1.2 mg/dL 01/18/2025 6:03 PM EDT [employer] [facility] Alkaline Phosphatase 55 35 - 129 U/L 01/18/2025 6:03 PM EDT [employer] [facility] AST 19 10 - 40 U/L 01/18/2025 6:03 PM EDT [employer] [facility] ALT 13 10 - 40 U/L 01/18/2025 6:03 PM EDT [employer] [facility] BUN 9 7 - 23 mg/dL 01/18/2025 6:03 PM EDT [employer] [facility] eGFR >90 >=60 mL/min/1. 73m2 01/18/2025 6:03 PM EDT [employer] [facility] Comment:The estimated glomer ular [...] - 4.2 g/dL 01/18/2025 6:03 PM EDT [employer] [facility] A/G Ratio 1.4(L) 1.5 - 3.0 01/18/2025 6:03 PM EDT [employer] [facility] Blood Structure of peripheral vein / Unknown Venipuncture / Unknown 01/18/2025 4:51 PM EDT 01/18/2025 5:17 PM EDT Shavon Marin CLEANER LAB BLOOD ORDERABLES F inal Result Performing Organization Address City/State/[facility] Co de Phone Number [employer] [facility] LAB[facility] [address] [place] [address], [place] * MRI Hand Right without Contrast (12/02/2024 9:30 PM EDT) Anatomical Region Laterality Modality Upper Extremities, Hand Right Magnetic Resonance 12/02/2024 8:40 PM EDT Narrative 12/07/2024 8:13 AM EDT [facility] Accession Number: [id number] Patient Name: Ambika Mcdermott Date of : 1985 Date of Exam: 12-02-2024 Referring Physician: [place] Street [address] [place] [address] Exam: MR Hand (C-) CPT 15741 - Right Room Description: [facility] 3.0T MRI RIGHT HAND HISTORY: Pain FINDINGS: No marrow edema. No osseous erosion or joint effusion. Flexor and extensor tendons of the hand are intact. No evidence of tenosynovitis. IMPRESSION: Normal examination of the hand Electronically Signed By: Giuliano Anthony MD Procedure Note Provider, Tammy - 12/07/2024 [facility] Accession Number: [id number] Patient Name: Ambika Mcdermott Date of : 1985 Date of Exam: 12-02-2024 Referring Physician: [address] Street [address] [place] [address] Exam: MR Hand (C-) CPT 56533 - Right Room Description: [facility] 3.0T MRI RIGHT HAND HISTORY: Pain [...] Final Result from Last 3 [place] [address] [facility] Care Teams Correction Lieutenant Relationship Specialty Start Date End Date Petra Wiley [address] [place] [id number] PCP - General Family Medicine 03/19/24
--- OUTSIDE RECORDS SUMMARY | 2025-02-12 16:10 | XMS_ITS | Encounter Summary ---
Author Organization [employer] Address [address] [facility] [address] 7t [place] [address] Care Team Providers Care Field Aide Name Role Phone Petra Wiley PATTERN STORAGE CLERK Primary Care Provider Willard Waters Unavailable [phone] September Unavailable Juan Sandra MD Unavailable [phone] Brigid Guy NP Unavailable Vicente Mooney MD Unavailable Beth Rai MD Unavailable Michell Espinoza Unavailable Encounter Details Date Type Department Care Team (Late st Contact Info) Description 12/21/2024 Orders Only [facility] MEDICINE [address] [place], [place] [phone] Jailene Vitale CNM [address] [place], [place] [phone] Social History Tobacco Use Types Packs/Day Years [...] 1:00 PM EDT Clinical Support [facility] DIABETES/NUTRITION [address] [place] [address] [place] [address] documented as of this encounter Procedures Procedure Name Priority Date/Time Associated Diagnosis Comments PAP SMEAR Routine 10/06/2024 12:00 AM EDT documented in this encounter Results * Pap Smear (10/06/2024 12:00 AM EDT) Swab us Vicente Mooney MD LAB CYTOLOGY ORDERABLES Final Re sult [facility] [address] [place] [address] [phone] documented in this encounter Visit Diagnoses Not on filedocumented in this encounter Additional Health Concerns Assessment Noted Time PHQ-9 Depression Total Score: 8 11/26/19 25 5:52 PM EDT documented as of this encounter Care Teams Field Aide Relationship Specialty Start Date End Date Petra Wiley FNP [address] [place] [address] PCP - General Family Medicine 03/17/24 Willard Waters [address] [place] [address] Rheumatology 05/17/24KesslerSeptember 11 [facility] 3rd [place] [address] Gastroenterology 05/17/24 Juan Sandra MD [address] [place] [address] Hematology and Oncology 05/17/24 Brigid Guy NP 10 [facility] [address] [place] [address] Urology 05/17/24 Vicente Mooney MD [address] [place] [address] [address] [place] [address] Obstetrics and Gynecology 05/17/24 Beth Rai MD [address] [place] [address] [address] [place] [address] Neurology 05/17/24 Michell Espinoza 11 [facility] 3rd [place] [address] Cardiology 05/17/24 Shelia Zheng Projection EngineerRegional Otr Company Driver 09/26/23 documented as of this encounter
--- OUTSIDE RECORDS SUMMARY | 2025-02-12 16:10 | XMS_ITS | Encounter Summary ---
Author Organization [facility] Address [address] [place] [address] Care Team Providers Care Welder Production Line Arc Name Role Phone Petra Wiley Primary Care Provider [phone] Encounter Details Date Type Department Care Team (Latest Contact Info) Description 06/26/2024 Transcribe Orders [facility] Physician Referral Services [address] [place] [address] Isaiaskiersten Petra [address] [place], [place] [phone] Subcutaneous mass of right upper extremity (Primary [...] Description 03/04/2025 3:00 PM EDT Office Visit [facility] [address] [place] [address] Bottle Gauger: Shasha Campos PA [address] [place] [address] 04/19/2025 1:20 PM EST Lab [facility] ACC Draw Site Fifth Floor [address] [place] [address] 04/19/2025 2:20 PM EST Follow-Up [facility] BMT Clinic [address] [place] [address] Shavon Roberson NP [address] [place], [place] [phone] documented as of this encounter Visit Diagnoses Diagnosis Subcutaneous mass of right upper extremity- Primary Subcutaneous mass of abdominal wall documented in this encounter Care Teams Welder Production Line Arc Relationship Specialty Start Date End Date Petra Wiley [address] [place] [address] PCP - General Family Medicine 03/19/24 documented as of this encounter
--- OUTSIDE RECORDS SUMMARY | 2025-02-12 16:10 | XMS_ITS | Encounter Summary ---
Author Organization [employer] Address 75 [facility] 7t [place] [address] Care Team Providers Care Dry Kiln Operator Name Role Phone Jennie Murray MD Primary Care Provider Petra Wiley Primary Care Provider Willard Waters Unavailable [phone] Victoria Sumaya Unavailable Juan Sandra MD Unavailable [phone] Brigid Guy NP Unavailable Vicente Mooney MD Unavailable Beth Rai MD Unavailable Michell Espinoza Unavailable Encounter Details Date Type Department Care Team (Late st Contact Info) Description 05/25/2022 Abstract [facility] CHC ADULT DENTAL [address] [place], [place] [phone] Dental, Provider, DDS Social History Tobacco Use [...] Description 02/23/2025 1:00 PM EDT Clinical Support [facility] DIABETES/NUTRITION [address] [place], [place] [phone] Tamanna Mcintyre [address] [place] [address] documented as of this encounter Procedures Procedure [...] on filedocumented in this encounter Care Teams Dry Kiln Operator Relationship Specialty Start Date End Date Jennie Murray MD [address] [place] [address] PCP - General Family Medicine 06/23/13 03/16/24 Petra Wiley FNP [address] [place] [address] PCP - General Family Medicine 03/17/24 Willard Waters 575 [facility] [address] [place], [place] Rheumatology 05/17/24 Victoria Sumaya 11 [facility] 3rd [place] [address] Gastroenterology 05/17/24 Juan Sandra MD [address] [place] [address] Hematology and Oncology 05/17/24 Brigid Guy NP [address] [facility] [address] [place] [address] Urology 05/17/24 Vicente Mooney MD [address] [place] [address] [address] [place] [address] Obstetrics and Gynecology 05/17/24 Beth Rai MD [address] [place] [address] [address] [place] [address] Neurology 05/17/24 Michell Espinoza 11 [facility] 3rd [place] [address] Cardiology 05/17/24 Shelia Zheng Flight Readiness TechnicianDoctor Of Pharmacy 09/26/23 documented as of this encounter
--- OUTSIDE RECORDS SUMMARY | 2025-02-12 16:10 | XMS_ITS | Encounter Summary ---
Author Organization [employer] Address 75 [facility] 7t [place] [address] Care Team Providers Care Continuous Improvement Director Name Role Phone Jennie Murray MD Primary Care Provider Petra Wiley Primary Care Provider Willard Waters Unavailable [phone] KesslerSeptember Unavailable Juan Sandra MD Unavailable [phone] Brigid Guy NP Unavailable Vicente Mooney MD Unavailable Beth Rai MD Unavailable Michell Espinoza Unavailable Encounter Details Date Type Department Care Team (Latest Contact Info) Description 09/12/2020 Abstract [facility] CONVERSIONS Dental, Provider, DDS Social History [...] Description 02/23/2025 1:00 PM EDT Clinical Support [facility] DIABETES/NUTRITION [address] [place] [address] [place] [address] documented as of this encounter Visit Diagnoses Not on filedocumented in this encounter Care Teams Continuous Improvement Director Relationship Specialty Start Date End Date Jennie Murray MD [address] [place] [address] PCP - General Family Medicine 06/23/13 03/16/24 Petra Wiley FNP [address] [place] [address] PCP - General Family Medicine 03/17/24 Willard Waters [address] [place] [address] Rheumatology 05/17/24KesslerSeptember 11 [facility] 3rd [place] [address] Gastroenterology 05/17/24 Juan Sandra MD [address] [place] [address] Hematology and Oncology 05/17/24 Brigid Guy NP [address] [place] [address] Urology 05/17/24 Vicente Mooney MD [address] [place] [address] [address] [place] [address] Obstetrics and Gynecology 05/17/24 Beth Rai MD [address] [place] [address] [address] [place] [address] Neurology 05/17/24 Michell Espinoza [address] [facility] [address] [place] [address] Cardiology 05/17/24 [facility] Fleet DriverComposing Room Supervisor 09/26/23 documented as of this encounter
--- OUTSIDE RECORDS SUMMARY | 2025-02-12 16:10 | XMS_ITS | Encounter Summary ---
Author Organization [employer] Address [address] [facility] 7t [place] [address] Care Team Providers Care Oracle Soa Consultant Name Role Phone Petra Wiley SECURITY OFFICER SUPERVISOR Primary Care Provider Willard Waters Unavailable [phone] September Unavailable Juan Sandra MD Unavailable [phone] Brigid Guy NP Unavailable Vicente Mooney MD Unavailable Beth Rai MD Unavailable Michell Espinoza Unavailable Encounter Details Date Type Department Care Team (Late st Contact Info) Description 02/10/2025 Orders Only GENERIC EXTERNAL DATA [...] Description 02/23/2025 1:00 PM EDT Clinical Support [facility] DIABETES/NUTRITION [address] [place] [address] [place] [address] documented as of this encounter Procedures Procedure Name Priority Date/Time Associated Diagnosis Comments CYTOPATH-CELL ENHANCED Routine 02/10/2025 5:16 PM EDT documented in this encounter Results * Cytopath-cell enhanced (02/10/2025 5:16 PM EDT) 02/10/2025 5:16 PM EDT 02/11/2025 6:45 AM EDT [facility] - 02/11/2025 10:10 AM EDT ----- ------- Name: Ambika Mcdermott Age/Sex: 39/F [facility] 1985 [id number]#: [id number] Attend Dr: Brigid Guy [facility] Re02/10/25 Status: [facility] Dis[facility] ----- ------- SPEC : [id number] RECD: 02/11/25 STATUS: [facility] NUM: [id number] BILLY: 02/10/25-1715 [facility] DR: Brigid Guy [facility] ENTERED: 02/11/25 SP TYPE: Cytology OTHR DR: [...] developed and their performance characteristics determined by [facility]. They have not been cleared or approved by the U.S. Food and Drug Administration (FDA). However, the FDA has determined that such clearance or approval is not necessary. This laboratory is certified under the Clinical Laboratory Improvement Amendments of 1988 (CLIA) as qualified to perform high complexity clinical laboratory testing. Copies To: Brigid Guy [facility] Urology Services [address] [place] [address] Dr. Looney [address] [place] [id number] [email or web address] Therapeutics Jennie Murray MD [address] [address] CONTINUED ON NEXT PAGE ----- ------- Name: Lowell Anaya,Ambika Age/Sex: 39/F : 1985 Unit#: [id number] Attend Dr: Brigid Guy [facility] Re02/10/25 Status: DEP REF [facility] Disch: ----- ------- SPEC : [id number] RECD: 02/11/25 STATUS: [facility] NUM: [id number] BILLY: 02/10/25-1715 [facility] DR: Brigid Guy [facility] ENTERED: 02/11/25 SP TYPE: Cytology OTHR DR: Jennie Murray MD ORDERED: Cyto-enhanced ----- ------- Signed (signature on file) Trent Patel MD 02/11/25 1010 ----- ------- END OF REPORT us Generic External Data Provider LAB CYTOLOGY KEN MCDONALD Final Result [facility] [address] [place] [address] [phone] documented in this encounter Visit Diagnoses Not on filedocumented in this encounter Additional Health Concerns Assessment Noted Time PHQ-9 Depression Total Score: 8 11/26/19 25 5:52 PM EDT documented as of this encounter Care Teams Oracle Soa Consultant Relationship Specialty Start Date End Date Petra Wiley FNP [address] [place] [address] PCP - General Family Medicine 03/17/24 Willard Waters [address] [place] [address] Rheumatology 05/17/24September [address] 3rd [place] [address] Gastroenterology 05/17/24 Juan Sandra MD [address] [place] [address] Hematology and Oncology 05/17/24 Brigid Guy NP [address] [place] [address] Urology 05/17/24 Vicente Mooney MD [address] [facility] [address] [place] [address] Obstetrics and Gynecology 05/17/24 Beth Rai MD [address] [place] [address] [place] [address] Neurology 05/17/24 Michell Espinoza 11 [facility] 3rd [place] [address] Cardiology 05/17/24 Shelia Zheng Jigger OperatorSupervisor Cd Area 09/26/23 documented as of this encounter
--- OUTSIDE RECORDS SUMMARY | 2025-02-12 16:10 | XMS_ITS | Encounter Summary ---
Author Organization [facility] Address [address] [place] [address] Care Team Providers Care Historic Sites Supervisor Name Role Phone Petra Wiley Primary Care Provider Encounter Details Date Type Department Care Team (Late st Contact Info) Description 12/31/2024 Results Follow-Up [facility] Rheumatology Clinic [address] [place], [place] [id number] Recruiting Administrator: Mary Senior LPN Social History Tobacco Use [...] Description 03/04/2025 3:00 PM EDT Office Visit [facility] Women's Care [address] [place] [address] Recruiting Administrator: Kate Castaneda [facility] [place] [address] [place] [address] 04/19/2025 1:20 PM EST Lab [facility] ACC Draw Site Fifth Floor [address] [place] [address] 04/19/2025 2:20 PM EST Follow-Up [facility] Building BMT Clinic [address] [place] [address] Shavon Roberson NP [address] [place], [place] [phone] documented as of this encounter Visit Diagnoses Not on filedocumented in this encounter Care Teams Historic Sites Supervisor Relationship Specialty Start Date End Date Petra Wiley [address] [place] [address] PCP - General Family Medicine 03/19/24 documented as of this encounter
--- OUTSIDE RECORDS SUMMARY | 2025-02-12 16:11 | XMS_ITS | Encounter Summary ---
Author Organization [employer] Address 75 [facility] 7t [place] [address] Care Team Providers Care Improvement Coordinator Name Role Phone Jennie Murray MD Primary Care Provider Petra Wiley Primary Care Provider [phone] Willard Waters Unavailable [phone] September Unavailable Juan Sandra MD Unavailable [phone] Brigid Guy NP Unavailable Vicente Mooney MD Unavailable Beth Rai MD Unavailable Michell Espinoza Unavailable Encounter Details Date Type Department Care Team (Late st Contact Info) Description 07/26/2022 Orders Only [facility] MEDICINE [address] [place] [address] Nelson Medrano MD [address] [place] [phone] Chronic idiopathic constipation (Primary Dx) Social History [...] Description 02/23/2025 1:00 PM EDT Clinical Support [facility] DIABETES/NUTRITION [address] [place] [address] [place] [address] documented as of this encounter Visit Diagnoses Diagnosis Chronic idiopathic constipation- Primary Unspecified constipation documented in this encounter Additional Health Concerns Assessment Noted Time PHQ-9 Depression Total Score: 0 07/04/19 23 3:01 PM EST documented as of this encounter Care Teams Improvement Coordinator Relationship Specialty Start Date End Date Jennie Murray MD 230 [place] [address] PCP - General Family Medicine 06/23/13 03/16/24 Petra Wiley FNP [address] [place] [address] PCP - General Family Medicine 03/17/24 Willard Waters [address] [place] [address] Rheumatology 05/17/24September [address] 3rd [place] [address] Gastroenterology 05/17/24 Juan Sandra MD 575 [place] [address] Hematology and Oncology 05/17/24 Brigid Guy NP [address] [place] [address] Urology 05/17/24 Vicente Mooney MD [address] [place] [address] [address] [place] [address] Obstetrics and Gynecology 05/17/24 Beth Rai MD [address] [place] [address] Dr Rangel [address] [place] [address] Neurology 05/17/24 Michell Espinoza [address] 3rd [place] [address] Cardiology 05/17/24 Shelia Zheng Pig Machine Operator HelperSenior Research Associate 09/26/23 documented as of this encounter
--- OUTSIDE RECORDS SUMMARY | 2025-02-12 16:11 | XMS_ITS | Encounter Summary ---
Author Organization [employer] Address [address] [facility] [address] 7t [place] [address] Care Team Providers Care Seismograph Computer Name Role Phone Petra Wiley OFFICE EMPLOYEE Primary Care Provider [phone] Willard Waters Unavailable [phone] September Unavailable Juan Sandra MD Unavailable [phone] Brigid Guy NP Unavailable Vicente Mooney MD Unavailable Beth Rai MD Unavailable Michell Espinoza Unavailable Encounter Details Date Type Department Care Team (Late st Contact Info) Description 05/20/2024 Orders Only [facility] [address] [place], [place] [phone] Provider, MD Addie Social History Tobacco Use [...] Description 02/23/2025 1:00 PM EDT Clinical Support [facility] DIABETES/NUTRITION [address] [place] [address] [place] [address] documented as of this encounter Procedures Procedure [...] documented as of this encounter Care Teams Seismograph Computer Relationship Specialty Start Date End Date Petra Wiley FNP 230 [place] [address] PCP - General Family Medicine 03/17/24 Willard Waters [address] Rheumatology 05/17/24 Victoria Sumaya [address] 3rd [place] [address] Gastroenterology 05/17/24 Juan Sandra MD [address] [place] [address] Hematology and Oncology 05/17/24 Brigid Guy NP [address] [place] [address] Urology 05/17/24 Vicente Mooney MD [address] [place] [address] [address] [place] [address] Obstetrics and Gynecology 05/17/24 Beth Rai MD [address] [place] [address] [place] [address] Neurology 05/17/24 Michell Espinoza 11 [facility] 3rd [place] [address] Cardiology 05/17/24 Shelia Zheng Rubber TesterKing Maker 09/26/23 documented as of this encounter
--- OUTSIDE RECORDS SUMMARY | 2025-02-12 16:11 | XMS_ITS | Encounter Summary ---
Author Organization [employer] Address 75 [facility] 7t [place] [address] Care Team Providers Care Data Security Consultant Name Role Phone Petra Wiley WOOD DOWEL MACHINE OPERATOR Primary Care Provider Willard Waters Unavailable [phone] September Unavailable Juan Sandra MD Unavailable [phone] Brigid Guy NP Unavailable Vicente Mooney MD Unavailable Beth Rai MD Unavailable Michell Espinoza Unavailable Encounter Details Date Type Department Care Team (Late st Contact Info) Description 02/01/2025 Orders Only [facility] [address] [place], [place] [phone] Provider, MD Addie Social History Tobacco Use [...] [facility] DIABETES/NUTRITION [address] [place] [address] [place] [address] documented as of this encounter Procedures Procedure [...] as of this encounter Care Teams Data Security Consultant Relationship Specialty Start Date End Date Petra Wiley FNP 230 [place] [address] PCP - General Family Medicine 03/17/24 Willard Waters [address] [place] [address] Rheumatology 05/17/24 Sumaya Kessler 11 [facility] 3rd [place] [address] Gastroenterology 05/17/24 Juan Sandra MD [address] [place] [address] Hematology and Oncology 05/17/24 Brigid Guy NP 10 [facility] [address] [place] [address] Urology 05/17/24 Vicente Mooney MD [address] [place] [address] [address] [place] [address] Obstetrics and Gynecology 05/17/24 Beth Rai MD [address] [place] [address] 140 [place] [address] Neurology 05/17/24 Michell Espinoza 11 [facility] 3rd [place] [address] Cardiology 05/17/24 Shelia Zheng Vehicle Cost EngineerTinning Equipment Tender 09/26/23 documented as of this encounter
--- OUTSIDE RECORDS SUMMARY | 2025-02-12 16:11 | XMS_ITS | Encounter Summary ---
Author Organization [employer] Address 75 [facility] 7t [place] [address] Care Team Providers Care Business Intelligence Reporting Analyst Name Role Phone Jennie Murray MD Primary Care Provider Petra Wiley Primary Care Provider [phone] Willard Waters Unavailable [phone] KesslerSeptember Unavailable Juan Sandra MD Unavailable [phone] Brigid Guy NP Unavailable Vicente Mooney MD Unavailable Beth Rai MD Unavailable Michell Espinoza Unavailable Encounter Details Date Type Department Care Team (Late st Contact Info) Description 05/18/2022 Orders Only [facility] MEDICINE 230 [place] [address] Jennie Murray MD [address] [place], [place] [phone] Acute foot pain, unspecified laterality (Primary Dx) [...] Description 02/23/2025 1:00 PM EDT Clinical Support [facility] DIABETES/NUTRITION 230 [place] [address] [place] [address] documented as of this encounter Visit Diagnoses Diagnosis Acute foot pain, unspecified laterality- Primary documented in this encounter Care Teams Business Intelligence Reporting Analyst Relationship Specialty Start Date End Date Jennie Murray MD 230 [place] [address] PCP - General Family Medicine 06/23/13 03/16/24 Petra Wiley FNP 230 [place] [address] PCP - General Family Medicine 03/17/24 Willard Waters [address] [place] [address] Rheumatology 05/17/24September [address] 3rd [place] [address] Gastroenterology 05/17/24 Juan Sandra MD [address] [place] [address] Hematology and Oncology 05/17/24 Brigid Guy NP [address] [place] [address] Urology 05/17/24 Vicente Mooney MD [address] [place] [address] [address] [place] [address] Obstetrics and Gynecology 05/17/24 Beth Rai MD [address] [place] [address] 140 [place] [address] Neurology 05/17/24 Michell Espinoza [address] [facility] [address] 3rd [place] [address] Cardiology 05/17/24 Shelia Zheng Assistant Manager Airside OperationsRn Discharge 09/26/23 documented as of this encounter
[2025-02-12 17:11] LABS: Hematocrit 38.8 % (37.0-47.0); Hemoglobin 12.4 g/dl (12.0-16.0); Mean Corpuscular HGB Conc 32.0 g/dl (31.0-35.0); Mean Corpuscular Hemoglobin 26.7 pg (27.0-33.0); Mean Corpuscular Volume 83.6 fL (80.0-98.0); NRBC Abs Auto 0.000 X10*3/uL (0.0-0.012); NRBC Pct Auto 0.0 /100WBC (0.0-0.2); Platelet Count 255 X10*3/uL (160-400); Red Blood Count 4.64 X10*6/uL (4.20-5.50); White Blood Count 8.7 X10*3/uL (4.8-10.8)
== END 2025-02-12 16:07 | disposition home or self-care (01) ==
LOC: HO.LAB 16:06
PROVIDERS: PCP Registered Nurse; Visit Provider Obstetrics & Gynecology
DX: N83.299 Other ovarian cyst, unspecified side (principal); N93.9 Abnormal uterine and vaginal bleeding, unspecified
CPT/HCPCS: 36415; 85027

== ENCOUNTER 2025-02-18 10:47 | Outpatient (AMB) | payer MEDICAID, SELFPAY ==
--- NOTE | 2025-02-18 10:50 | A.OFFVIS_ITS ---
Vital Signs 02/18/25 10:56 Height 4 ft 11 in Weight 155 lb BMI 31.3 Intake Visit Reasons: ultrasound results/IUD check Telephone Assembler Required: Yes Telephone Assembler Language: Laborer [employer]roleum [employer] Services: Telephone Assembler Present (in person) Telephone Assembler Name: Renee PAZ Information Interpreted: non-clinical & clinical Tax Audit Manager: Tax Audit Manager Present (Renee PAZ) Accompanied by: Self / Same As Patient Allergies Iodinated Contrast Media (IV DYE, IODINE CONTAINING CONTRAST ) Allergy (Intermediate, Verified 02/18/25 10:57) SHORTNESS OF BREATH citalopram (From CELEXA) Allergy (Unknown, Verified 02/18/25 10:57) VOMITTING duloxetine (Cymbalta) Allergy (Unknown, Verified 02/18/25 10:57) unknown morphine (MORPHINE) Allergy (Unknown, Verified 02/18/25 10:57) PALPITATIONS-PT PREFERS NOT TO TAKE tramadol (TRAMADOL) Allergy (Unknown, Verified 02/18/25 10:57) VOMITING Is last menstrual period known: No (mirena) HPI Comments Details: Presenting for follow-up, doing well with No complaints no pelvic pain and or bleeding. Pelvic ultrasound follow-up done on 02/05/2025 which showed the following: Uterus: The uterus is anteverted and measures 8.9 x 2.9 x 4.2 cm. Shadowing IUD is present in the mid uterine cavity and is posteriorly displacement by the fundal fibroid. The double wall endometrial thickness is 8 mm. The upper uterine echogenicity is heterogeneous with hypoechoic areas. Anterior fundal intramural leiomyoma measures 1.6 x 1.6 x 1.7 cm previously 2.3 x 2.3 x 1.6 cm. Posterior upper uterine body intramural leiomyoma measures 1.0 x 0.7 x 0.9 cm previous study 1.0 x 0.9 x 1.27 cm. Adnexa: Left ovary is not visualized.. There is trace free fluid. Right ovary measures 4.3 x 2.0 x 1.8 cm. There is a 1.4 cm cyst with low level internal echogenicity consistent with proteinaceous debris requiring no further follow-up. The patient was referred to [facility] Medical History Abnormal stress ECG Lesion of ovary Vulvovaginitis IUD check up Nausea and vomiting Diarrhea Small intestinal bacterial overgrowth (SIBO), hydrogen subtype Upper abdominal pain Jaylyn albicans infection History of thyroiditis Palpitations Left flank pain, chronic Left hip pain Oropharyngeal dysphagia Rectal bleeding Breast lump Nephrolithiasis Vulvovaginitis jaylyn albicans Vulvovaginal candidiasis Myalgia Toe swelling Hives Fibroadenoma of both breasts Acute diarrhea Recurrent nephrolithiasis Vitamin D deficiency Obesity Fibroadenoma Lipoma Fibromyalgia NURIA positive Hx of lipoma Surgical History History of esophagogastroduodenoscopy (EGD) History of wisdom tooth extraction Family History Father Diabetes Heart attack Asthma Maternal Grandmother Diabetes HTN (hypertension) Parkinson disease Breast cancer Mother Diabetes Family history of diabetes mellitus Sister Asthma Maternal Grandfather Parkinson disease Social History Household Members: Children [facility] [place] Are you a primary healthcare educator to a significant other at home: No Do you presently have visiting nurse 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 (aircraft mechanic electrical and radio) Alcohol intake: never Patient Tobacco Use Status: Never used Tobacco Second Hand Smoke Exposure: Yes (Neighbors) service: No Current occupational status: disabled Sexual orientation: Straight/Heterosexual Gender identity: Female Female Reproductive History Menstrual Age of Menarche: 13 Review of Systems Const All systems reviewed & are unremarkable except as noted in HPI and below Physical Exam Vital Signs: BMI result Body Mass Index 31.3 General: Yes no CVA tenderness External Female Exam: normal external appearance and normal appearance of the urethra Speculum Exam - Vagina: normal appearance of the vagina, normal palpation, no lesions and no masses Speculum Exam - Cervix: normal appearance of the cervix, normal palpation, no lesions, no masses, nontender and Other cervical findings present (IUD thread in place) Bimanual exam- vagina & uterus: normal bimanual exam, normal palpation, uterine size normal, normal palpation, uterine shape normal, No Cervical tenderness present and non-tender Bimanual Exam- Adnexa, other: normal adnexae Back/Spine/Pelvis Back: no CVA tenderness Office Procedures IUD Insert/Removal Details Details: Counseling/Consent: After discussing with the patient the risks of the procedure including bleeding, infection, scar tissue formation, , possible injury to blood vessels or nerves, chronic arm pain, blood transfusion, and irregular unpredictable bleeding Alternative options were discussed with the patient including but not limited: Do nothing. The patient signed the consent and agreed with the plan; all questions answered. Urine test was done in the office and was negative Preop dx: Requesting IUD removal Op: IUD removal Post op dx: same EBL= 10 cc Procedure: The patient was put in the dorsal lithotomy position a speculum was inserted in the vagina the IUD thread identified. Using a Leo clamp the thread was grasped and the IUD pulled out with no complications. The patient tolerated the procedure well and was advised to use a different method for contraception. Discharge instructions: Instructions were given to the pt to call if temp>100.4, abdominal pain heavy vaginal bleeding, n/v occur. The patient verbalized understanding and all questions answered. This note was generated with a voice recognition program. Some errors may have been overlooked during the review of this note. Sometimes these errors may affect the content or meaning of a given sentence. [id number] Removal Procedure code (CPT) selection complete Assessment & Plan Assessment & Plan (1) Complex ovarian cyst: Code(s): N83.299 - Other ovarian cyst, unspecified side Category: Medical Plan: Discussed with the patient the complex ovarian cyst by ultrasound. Discussed with the patient the Ultrasound findings, the main limitation of transvaginal ultrasonography alone as a diagnostic tool to distinguish benign from malignant masses relates to its lack of specificity and low positive predictive value for cancer. The differential diagnosis discussed with the patient includes the following but not limited to: benign and malignant gynecological and non-gynecological causes. Laboratory evaluation include UPT and GC/CT , serum tumor marker CA 125 . Discussed with the patient options of treatment including laparoscopy ovarian cystectomy/oophorectomy vs. expectant management with repeat US in repeating pelvic US in 6 weeks from previous US. If the ovarian complex cyst is persistent larger and / or more complex looking, will refer to gynecologic Oncology. All pros, cons, risks and benefits of each approach were discussed with the patient including but not limited to a delay in the diagnosis and treatment of ovarian cancer affecting the prognosis; The patient decided to go ahead with expectant management. Instructions given the patient to schedule a 6 weeks follow-up ultrasound appointment. All questions were answered & the patient verbalized understanding and agreed with the plan. (2) Malpositioned IUD: Code(s): T83.32XA - Displacement of intrauterine contraceptive device, initial encounter Category: Medical Plan: Discussed with the patient the malpositioned of the IUD, recommended IUD removal. IUD removal done, see procedure note Instructions given the patient to use a backup method for control and to call or go to emergency room because of vaginal bleeding (3) Uterine myoma: Code(s): D25.9 - Leiomyoma of uterus, unspecified Category: Medical Plan: Discussed with the patient the finding of ultrasound showing myoma Orders: Orders US pelvic and transvaginal 6 Weeks N83.299 - Other ovarian cyst, unspecified side Coding Level of Care Code Est Pt Level 3 (82422) Diagnoses Complex ovarian cyst N83.299 Malpositioned IUD T83.32XA Uterine myoma D25.9 CPT Codes Details - CPT: 30481-UDZ Removal ([id number])
[2025-02-18 10:56] VITALS: BMI 31.3
--- OUTSIDE RECORDS SUMMARY | 2025-02-18 12:23 | XMS_ITS | Encounter Summary ---
Author Organization [employer] Address 75 [facility] 7t [place] [address] Care Team Providers Care Shotweld Operator Name Role Phone Jennie Murray MD Primary Care Provider Petra Wiley Primary Care Provider Willard Waters Unavailable [phone] KesslerSeptember Unavailable Juan Sandra MD Unavailable [phone] Brigid Guy NP Unavailable Vicente Mooney MD Unavailable Beth Rai MD Unavailable Michell Espinoza Unavailable Encounter Details Date Type Department Care Team (Latest Contact Info) Description 09/12/2020 Abstract [facility] Dental, Provider, DDS Social History [...] 1:00 PM EDT Clinical Support [facility] DIABETES/NUTRITION 230 [place] [address] [place] [address] documented as of this encounter Visit Diagnoses Not on filedocumented in this encounter Care Teams Shotweld Operator Relationship Specialty Start Date End Date Jennie Murray MD 230 [place] [address] PCP - General Family Medicine 06/23/13 03/16/24 Petra Wiley FNP 230 [place] [address] PCP - General Family Medicine 03/17/24 Willard Waters [address] [place] [address] Rheumatology 05/17/24KesslerSeptember 11 [facility] 3rd [place] [address] Gastroenterology 05/17/24 Juan Sandra MD [address] [place] [address] Hematology and Oncology 05/17/24 Brigid Guy NP [address] [place] [address] Urology 05/17/24 Vicente Mooney MD [address] [place] [address] [address] [place] [address] Obstetrics and Gynecology 05/17/24 Beth Rai MD [address] [place] [address] 140 [place] [address] Neurology 05/17/24 Michell Espinoza [address] [facility] [address] [place] [address] Cardiology 05/17/24 Merged With [facility] Wing Mailer Machine OperatorChief Operating Officer 09/26/23 documented as of this encounter
--- OUTSIDE RECORDS SUMMARY | 2025-02-18 12:23 | XMS_ITS | Encounter Summary ---
Author Organization Number 100 Cooperative Address [address] [facility] [address] [place] [address] Care Team Providers Care Orthotic Finish Grinding Technician Name Role Phone Petra Wliey WELLNESS COORDINATOR Primary Care Provider Willard Waters Unavailable [phone] September Unavailable Juan Sandra MD Unavailable [phone] Brigid Guy NP Unavailable Vicente Mooney MD Unavailable Beth Rai MD Unavailable [phone] Michell Espinoza Unavailable Reason for Visit * Reason Onset Date Comments Referral 12/02/2024 Encounter Details Date Type Department Care Team ([facility] Contact Info) Description 12/02/2024 Telephone [facility] [address] [place], [place] [id number] Petra Wiley FNP [address] [place], [place] [phone] Referral Social History Tobacco Use Types Packs/Day [...] has one scheduled for today 12/02 at [place] [facility] [address]. [address], [place] [address] , pt iswondering if both hands can be checked at the same time. PT is requesting a call back. Contact pt at [phone] ([email or web address]) documented in this encounter Plan of Treatment Upcoming Encounters Date Type Department Care Team ([facility] Contact Info) Description 02/23/2025 1:00 PM EDT Clinical Support [facility] [address] [place] [address] Tamanna Mcintyre, RD [address] [place] [address] documented as of this encounter Visit Diagnoses Not on filedocumented in this encounter Additional Health Concerns Assessment Noted Time PHQ-9 Depression Total Score: 8 11/26/19 25 5:52 PM EDT documented as of this encounter Care Teams Orthotic Finish Grinding Technician Relationship Specialty Start Date End Date Petra Wiley FNP [address] [place] [address] PCP - General Family Medicine 03/17/24 Willard Waters [address] [place] [address] Rheumatology 05/17/24 Sumaya Kessler [address] [address] Gastroenterology 05/17/24 Juan Sandra MD [address] [place] [id number] Hematology and Oncology 05/17/24 Brigid Guy NP [address] [facility] [address] [place] [address] Urology 05/17/24 Vicente Mooney MD [address] [place] [address] [address] [place] [address] Obstetrics and Gynecology 05/17/24 Beth Rai MD [address] [place] [address] [address] [place] [address] Neurology 05/17/24 Michell Espinoza [address] [facility] [address] [place] [address] Cardiology 05/17/24 [facility] Associate ProfessorLoft Worker Pile Driving 09/26/23 documented as of this encounter
--- OUTSIDE RECORDS SUMMARY | 2025-02-18 12:23 | XMS_ITS | Clinical Summary ---
Author Organization [employer] Address [address] [facility] [address] [place] [address] Care Team Providers Care Equity Analyst Name Role Phone Petra Wiley DIRECTOR DIGITAL Primary Care Provider [phone] Willard Waters Unavailable [phone] September Unavailable Juan Sandra MD Unavailable [phone] Brigid Guy NP Unavailable Vicente Mooney [...] not to exceed 6 tablets per 24hrs 2 Active famotidine (Pepcid) 40 MG tablet TOME ADRY TABLETA POR V A ORAL TODOS LOS D AL ACOSTARSE 2 Active Creon 30744-874292 units capsule delayed-release particles capsule TOME ADRY C PSULA MINDA VECES AL D A WITH MEALS/SNACKS 3 Active Simethicone Ultra Strength 180 MG capsule TAKE 1 CAPSULE ORALLY 2 TIMES A DAY FOR 30 DAYS AFTER MEALS 3 Active Sodium Fluoride (PreviDent 5000 Booster Plus) 1.1 % paste Apply a smear of paste on the brush; brush thoroughly twice daily. Spit, do not rinse. 112 g 2 4 Active LORazepam (Ativan) 1 MG tablet TAKE 1/2 TABLET BY MOUTH IN THE MORNING AND 1 TABLET AT BEDTIME DIRECTED 3 Active ferrous gluconate (Fergon) 324 (38 Fe) MG tablet TAKE 1 PILL EVERY SATURDAY, SATURDAY, AND SATURDAY. TAKE WITH A FULL GLASS OF WATER OR VIT C CONTAINING JUICE, AND IDEALLY 1 HOUR BEFORE A MEAL OR 2 HOURS AFTER A MEAL 36 tablet 4 Active propranolol (Inderal) 20 MG tablet TAKE 1 TABLET BY MOUTH 2 TIMES A DAY FOR 30 DAYS FOR HEART PALPITATION 4 Active Blood Pressure kit 1 each 2 times daily. 1 kit 4 025 Active butalbital-acetam inophen-caffeine 50-325-40 MG tablet TOME ADRY TABLETA CADA OCHO HORAS CUANDO SEA NECESARIO FOR 30 DAYS 4 Active Banophen 25 MG capsule PLEASE SEE ATTACHED FOR DETAILED DIRECTIONS 4 Active fexofenadine (Gretchen) 180 MG tabletIndications :Seasonal allergies Take 1 tablet (180 mg) by mouth Once per day. 90 tablet 3 4 025 Active Azelastine HCl 137 MCG/SPRAY solutionIndicatio ns:Seasonal allergies ADMINISTER 1 SPRAY EACH NOSTRIL IF NEEDED IN THE MORNING AND AT BEDTIME FOR RHINITIS OR ALLERGIES. 30 mL 3 5 Active pregabalin (Lyrica) 75 MG capsuleIndication s:Fibromyalgia Take 1 capsule (75 mg) by mouth at bedtime. 30 capsule 1 5 026 Active Misc. Devices (Pulse Oximeter) misc Use to check oxygen saturation as needed. Leave on finger for at least 30 seconds before looking at reading. (Normal above 95%) 1 each 5 Active neomycin-polymyxi n-dexAMETHasone 0.1 % ointment Apply small amount to left lower eyelid twice a day for 1 week. 3.5 g 5 Active cholecalciferol (Vitamin D3) 25 MCG (1000 UT) tabletIndications :Vitamin D insufficiency TAKE 1 TABLET (25 MCG) BY MOUTH ONCE PER DAY. 90 tablet 3 5 Active chlorhexidine (Peridex) 0.12 % solution Use 15ml to rinse your mouth twice daily. Spit after rinsing; do not swallow. 473 mL 5 Active Additional Information Patient not taking.Reported on 12/25/2024 albuterol 108 (90 Base) MCG/ACT inhalerIndication s:Mild persistent asthma without complication Inhale 2 puffs Every 4-6 hours as needed for wheezing or shortness of breath. 18 g 5 Active fluticasone furoate (Arnuity Ellipta) 100 MCG/ACT inhalerIndication s:Asthma, unspecified asthma severity, unspecified whether complicated, unspecified whether persistent Inhale 1 puff Once per day. Rinse mouth with water after use to reduce aftertaste and incidence of candidiasis. Do not swallow. 1 each 5 Active meclizine (Antivert) 25 MG tabletIndications :Dizziness Take 0.5-1 tablets (12.5-25 mg) by mouth if needed at bedtime for dizziness. 30 tablet 1 5 026 Active tiZANidine (Zanaflex) 2 MG tabletIndications :Fibromyalgia Take 1-2 tablets (2-4 mg) by mouth every 12 (twelve) hours if needed for muscle spasms. 30 tablet 2 5 026 Active docusate sodium (Colace) 100 MG capsule TOME 1 C PSULA POR V A ORAL DOS VECES AL D A 5 Active nabumetone (Relafen) 750 MG tabletIndications :Fibromyalgia Take 1 tablet (750 mg) by mouth if needed in the morning and at bedtime (pain). 60 tablet 2 5 Active dicyclomine (Bentyl) 10 MG capsule Take 1 capsule (10 mg) by mouth 3 times daily. 90 capsule 3 5 Active Bisacodyl EC 5 MG EC tablet Take 2 tablets (10 mg) by mouth if needed each day for constipation. Do not crush, chew, or split. 30 tablet 5 Active sucralfate (Carafate) 1 g tabletIndications :Gastroesophageal reflux disease without esophagitis Take 1 tablet (1 g) by mouth before breakfast, before lunch, before evening meal, and at bedtime. 120 tablet 2 5 Active [address] capsuleIndication s:Gastroparesis,G astroesophageal reflux disease without esophagitis Take 1 capsule (60 mg) by mouth Once per day. Do not crush or chew. 90 capsule 5 025 Active Active Problems Problem Noted Date Diagnosed [...] 25 Palpitations 05/17/2024 Overview (11/04/2024): [place] [facility] Continues on Propranolol 20mg 1-2x/day (through Cards) Assessment & Plan (11/04/2024 2:38 PM EDT): Consult Jul 2024 - cont current therapy Class 1 obesity with body ma ss index (BMI) of 32.0 to 32.9 in adult 05/17/2024 Assessment & Plan (07/29/2024 4:08 PM EST): - Cont following with tariff counsel and healthy lifestyle interventions Assessment & Plan [...] of medullary thyroid cancer or MEN 2. Matte Cutter referral offered. Recommended to decrease soda and [...] bruising easily 03/17/2024 Overview (03/17/2024): [place] [facility] [place]Onc - Dr. Sandra Per consult Jan [...] 04/17/2021 HCT 31.0 (L) 10/08/2024 Following with [facility]e/Onc - Dr. Sandra Unable to tolerate [...] - Has consulted with Surgery team in [facility] for consideration of excision. Per [...] - Has consulted with Surgery team in [facility] for consideration of excision. Per their consult Mar 2024, identified area has normal lobular fat, no discrete lipoma or nodules. Plan: conservative measures Abnormal uterine bleeding 12/27/2023 Overview (07/29/2024): Following with [facility] - Dr. Mooney EMB performed 04/14/24. 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 Continues famotidine and Dexliant through GI Irritable bowel syndrome with constipation 06/03 Overview (03/17/2024): Followed up [facility] YASSINE Kessler 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 Continues Bentyl TID Continues Bisacodyl 10mg nightly Dysphagia, oropharyngeal phase 06/03/2023 Overview (06/03/2023): Follow[place] [facility] YASSINE Kessler, 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 Gastroparesis 06/03/2023 Overview (03/17/2024): Followed by [facility] [place] Continues with the following medication regimen for multiple GI symptoms and conditions: Creon, famotidine, psyllium, dicyclomine, simethicone, and Dexliant Previous medications: carafate NURIA positive 06/03/2023 Overview (07/29/2024): Previous followed by [facility] Rheum - Dr. Waters May 2024: Established with [facility] Rheum - Dr. Street NURIA positive 2020: 1:160, anti dna, nicholas, ESR, CRP all wnl Disorder of sesamoid bone of foot 06/03/2023 Overview (06/03/2023): -Left lateral sesamoid stress fx identified Jul 2022 at [facility] -Plan for immobilization in short walking boot and follow up 6 weeks Assessment & Plan (06/03/2023 10:28 PM EST): Plan to request latest records from [facility] and follow up with PCP to discuss eligibility handicap placard. Fibromyalgia 08/02/2022 Overview (11/04/2024): -Previously: Lyrica 75mg nightly through [facility] Physiatry/Rheum -Lyrica rx from PCP as of [...] Encounters Date Type Department Care Team Description 02/12/2025 Orders Only GENERIC EXTERNAL DATA DEPARTMENT Provider, Generic External Data 02/10/2025 Orders Only GENERIC EXTERNAL DATA DEPARTMENT Provider, Generic External Data 02/05/2025 Orders Only [facility] External Provider, [facility] 02/03/2025 Orders Only [facility] External Provider, [facility] 02/01/2025 3:30 PM EDT Office Visit [facility] MED & PEDS [address], [place] [phone] Petra Wiley FNP Injury of left knee, subsequent encounter (Primary Dx) 02/01/2025 Travel 02/01/2025 Orders Only [facility] [address] [place], [place] [phone] ProviderAddie MD 01/29/2025 Telephone [facility] [address], [place] [phone] Petra Wiley FNP chart prep 01/26/2025 1:00 PM EDT Clinical Support [facility] DIABETES/NUTRITION [address] [place] [address] [phone] Tamanna Mcintyre, ANGELINA Class 1 obesity with serious comorbidity and body mass index (BMI) of 32.0 to 32.9 in adult, unspecified obesity type (Primary Dx) 01/26/2025 Travel 01/20/2025 Telephone [facility] MEDICINE [address] [place], [place] [phone] Petra Wiley FNP Appointment Confirmation 01/19/2025 Telephone [facility] [address] [place] [phone] Jackie Bazzi MD 01/19/[address] [address] Petra Wiley FNP ER Follow-up 01/17/2025 Orders Only [facility] External Provider, [facility] 01/15/2025 11:15 AM EDT Office Visit [facility] MED [facility] PEDS [address] [place] [address] Jackie Bazzi MD Appendix disease (Primary Dx); Fibromyalgia; Gastroesophageal reflux disease without esophagitis; Gastroparesis; Gastroesophageal reflux disease without esophagitis 01/15/2025 Results Follow-Up [address] [address] Sylvia Lemons MD Bacterial Vaginosis, Chlamydia/N. Gonorrhoeae RNA, TMA, Urogenitial 01/15/2025 Travel 01/14/[address] [address] Petra Wiley FNP ER Follow-up 01/13/2025 Orders Only GENERIC EXTERNAL DATA DEPARTMENT Provider, Generic External Data 01/08/[address] [address] Petra Wiley FNP Appointment Request 01/08/2025 Orders Only GENERIC EXTERNAL DATA DEPARTMENT Provider, Generic External Data 01/07/2025 Refill [facility] PEDS [address] [place] [address] Petra Wiley FNP Fibromyalgia 12/25/2024 2:00 PM EDT Office Visit [facility] ADULT DENTAL [address] [place] [phone] Venkat Barreto DDS 12/21/2024 Orders Only [address] [address] Jailene Vitale CNM 12/17/2024 1:00 PM EDT Office Visit [address] [place] [address] Jailene Vitale CNM Labial cyst (Primary Dx) 12/17/2024 Travel 12/16/2024 Orders Only GENERIC EXTERNAL DATA DEPARTMENT Provider, Generic External Data 12/16/2024 Telephone [facility] MEDICINE [address] [place] [address] Jailene Vitale CNM chart prep 12/11/2024 1:00 PM EDT Clinical Support [facility] DIABETES/NUTRITION [address] [place] [address] Class 1 obesity with body mass index (BMI) of 32.0 to 32.9 in adult, unspecified obesity type, unspecified whether serious comorbidity present (Primary Dx) 12/11/2024 Travel 12/03/2024 Refill [facility] MED [facility] PEDS [address] [place] [address] Petra Wiley FNP Fibromyalgia 12/02/2024 Telephone [facility] MED [facility] PEDS [address] [place] [address] Petra Wiley FNP Referral 12/01/2024 3:30 PM EDT Clinical Support [facility] DIABETES/NUTRITION [address] [place] [address] Class 1 obesity with body mass index (BMI) of 32.0 to 32.9 in adult, unspecified obesity type, unspecified whether serious comorbidity present (Primary Dx) 12/01/2024 2:00 PM EDT Office Visit [facility] ADULT DENTAL [address] [place] [address] Venkat Barreto DDS 12/01/2024 Travel 11/30/2024 Results Follow-Up [facility] MED [facility] PEDS [address] [place] [address] Petra Wiley FNP XR Hand 3+ Views Left 11/25/2024 9:15 AM EDT Office Visit [facility] MEDICINE [address] [place] [address] Petra Wiley FNP Encounter for routine history and physical examination of adult (Primary Dx); Healthcare maintenance; Left hand pain; Subcutaneous mass of both lower legs; Papule of skin 11/25/2024 Travel 11/23/2024 Results Follow-Up [facility] MED & PEDS [address] [place] [address] Shireen Eagle [place] POCT Hemoglobin, CBC auto [...] 1:00 PM EDT Clinical Support [facility] DIABETES/NUTRITION [address] [place] [address] Tamanna Mcintyre, ANGELINA [address] [place] [address] Health Maintenance Due Date Last Done Comments Disability Screening 1985 HPV Vaccines (2 - 3-dose series) 03/27/2011 02/27/2011, 02/27/2011 Dental Oral Exam 06/27/2024 12/25/2023, 01/2024, 08/02/2022 Dental Prophylaxis 01/18/2025 07/20/2024, 0 12/25/2023, 06/25/2023, Additional history exists COVID-19 Vaccine ( - 2023- season) 2025 Influenza Vaccine (#1) 2025 6, 03/22/2015, 03/06/2013 Diagnostic Breast Imaging 03/04/20252024, 09/01/2024, 11/19/2023, Additional history exists Mammogram 03/04/2025 09/01/2024, 08/15, 11/19/2023, Additional history exists Alcohol/Substance Use Screening 03/16/2025 03/16/2024 SDOH Screening 03/16/2025 03/16/2024 Dental X-Ray: Bitewings 07/21/2025 07/20/19, 12/25/2023, 06/24/2023, Additional history exists Dental X-Ray: Full Mouth 08/03/2025 08/02/2022 DTaP/Tdap/Td Vaccines (1 - Tdap) 09/30/2025 10/14/2015 Postponed from 10/15/2015 (Other Medical Reasons) Depression Screening 11/25/2025 11/25/2024, 11/26/19 Family Planning (PISQ) 12/17/2025 12/17/2024 Tobacco Screening 12/25/2025 12/25/2024 Lipid Panel 11/26/2029 11/26/2024, 07/2023, 10/16/2023, Additional history exists Cervical Cancer Screening 01/13/2030 HPV/Cotest 01/13/2030 01/13/2025 Pap Smear 01/13/2030 01/13/2025, 042 07/2024, 11/12/2019, Additional history exists Zoster Vaccines (1 [...] Priority Date/Time Associated Diagnosis Comments CBC Routine 02/12/2025 4:14 PM EDT CYTOPATH-CELL ENHANCED Routine 5:16 PM EDT US PELVIS TRANSVAGINAL Routine 5 1:43 PM EDT US RENAL COMPLETE Routine 02/03/2025 1:3 4 PM EDT XR ELBOW 3+ VIEWS LEFT Routine 12:39 AM EDT XR KNEE 4+ VIEWS LEFT Routine 01/17/2025 12:26 AM EDT XR ELBOW 1-2 VIEWS LEFT Routine 01/16/2025 12:48 PM EDT PAP SMEAR Routine 01/13/2025 4:39 PM EDT HPV DNA, LOW/HIGH RISK Routine 5 4:39 PM EDT CHLAMYDIA/N. GONORRHOEAE RNA, TMA, UROGENITAL Routine 01/13/2025 3:31 PM EDT BACTERIAL VAGINOSIS PANEL Routine 01/13/2025 3:[address] ABDOMEN PELVIS W CONTRAST Routine 01/08/2025 8:17 AM EDT US PELVIS TRANSVAGINAL Routine 5 7:40 AM EDT URINALYSIS WITH REFLEX MICROSCOPIC [...] to Health Maintenance Results * (ABNORMAL) CBC (02/12/2025 4:14 PM EDT) White Blood Count 8.7 4.8 - 10.8 X10*3/uL [facility] Red Blood Count 4.64 4.20 - 5.50 X10*6/uL [facility] Hemoglobin 12.4 12.0 - 16.0 g/dl [facility] Hematocrit 38.8 37.0 - 47.0 % [facility] Mean Corpuscular Volume 83.6 80.0 - 98.0 fL [facility] Mean Corpuscular Hemoglobin 26.7(L) 27.0 - 33.0 pg [facility] Mean Corpuscular HGB Conc 32.0 31.0 - 35.0 g/dl [facility] Red Cell Distribution Width 14.2 11.0 - 16.0 % [facility] Platelet Count 255 160 - 400 X10*3/uL [facility] Mean Platelet Volume 11.9 9.4 - 12.3 fL [facility] NRBC Pct Auto 0.0 0.0 - 0.2 /100WBC [facility] NRBC Abs Auto 0.000 0.0 - 0.012 X10*3/uL [facility] 02/12/2025 4:14 PM EDT 02/12/2025 4:14 PM EDT us Generic External Data Provider LAB BLOOD ORDERAB LES Final Result [facility] [address] [place] [phone] * Cytopath-cell enhanced (02/10/2025 5:16 PM EDT) 02/10/2025 5:16 PM EDT 02/11/2025 6:45 AM EDT Narrative [facility] - 02/11/2025 10:10 AM EDT ----- ------- Name: Ambika Mcdermott Age/Sex: 39/F : 1985 Unit#: [id number] Attend Dr: Brigid Guy [facility] Re02/10/25 Status: [facility] REF Location: [facility] Disch: ----- ------- SPEC : [id number] RECD: 02/11/25 STATUS: MARIALUISAMaria Isabel RASHEED NUM: [id number] BILLY: 02/10/25-[address] [facility] [address]: Brigid [facility] ENTERED: 02/11/25 SP TYPE: Cytology OTHR DR: [...] developed and their performance characteristics determined by [facility]. They have not been cleared or approved by the U.S. Food and Drug Administration (FDA). However, the FDA has determined that such clearance or approval is not necessary. This laboratory is certified under the Clinical Laboratory Improvement Amendments of 1988 (CLIA) as qualified to perform high complexity clinical laboratory testing. Copies To: Brigid Guy [facility] [address] [place] [address] Dr. Looney [facility] [place] [address] [email or web address] Jennie Murray MD [address] [address] CONTINUED ON NEXT PAGE ----- ------- Name: Ambika Mcdermott Age/Sex: 39/F : 1985 Unit#: [id number] Attend Dr: Briigd Guy [facility] Re02/10/25 Status: DEP [facility] Disch: ----- ------- SPEC : [id number] RECD: 02/11/25 STATUS: OLIMPIA IQBAL NUM: [id number] BILLY: 02/10/[address] [facility] [address]: Brigid Guy [facility] ENTERED: 02/11/25 SP TYPE: Cytology OTHR DR: Jennie Murray MD ORDERED: Cyto-enhanced ----- ------- Signed (signature on file) Trent Patel MD 02/11/25 1010 ----- ------- END OF REPORT us Generic External Data Provider LAB CYTOLOGY KEN MCDONALD Final Result [facility] [address] [place] [address] [phone] * US Pelvis Transvaginal (02/05/2025 1:43 PM EDT) Only the most recent of2 resultswithin the time period is included. Anatomical Region Laterality Modality Pelvis Ultrasound 02/05/2025 1:43 PM EDT Narrative 02/05/2025 2:29 PM EDT [address] [address] Ultrasound Report Signed Patient: Ambika Mcdermott MR#: [id number] : 1985 Acct:[id number] Age/Sex: 39 / F ADM Date: 02/05/25 Loc: .US Attending Dr: Vicente Mooney MD Ordering Physician: Vicente Mooney MD Date of Service: 02/05/25 Procedure(s): US pelvic and transvaginal Accession Number(s): [id number] cc: Petra Wiley; Vicente Mooney MD EXAMINATION: [...] 02/05/25 1426 DD/ 1343 TD/TT: 02/05/25 1355 Stencil Cutter: Procedure Note Donotuseinterpreter, Image - 02/05/2025 [place] [address] Ultrasound Report Signed Patient: Ambika McdermottMR#: [id number] : 1985Acct:[id number] Age/Sex: 39 / FADM Date: 02/05/25 Loc: HO.US Attending Dr: Vicente Mooney MD Ordering Physician: Vicente Mooney MD Date of Service: 02/05/25 Procedure(s): US pelvic and transvaginal Accession Number(s): [id number] cc: Petra Wiley; Vicente Mooney MD EXAMINATION: [...] 02/05/25 1426 DD/ 1343 TD/TT: 02/05/25 1355 Stencil Cutter: us [facility] External Provider IMG US PROCEDURES Final Result * US Renal Complete (02/03/2025 1:34 PM EDT) Anatomical Region Laterality Modality Kidney Ultrasound 02/03/2025 1:34 PM EDT Narrative 02/03/2025 3:08 PM EDT [address] [address] Ultrasound Report Signed Patient: Ambika Mcdermott MR#: [id number] : 1985 Acct:[id number] Age/Sex: 39 / F ADM Date: 02/03/25 Loc: HO.US Attending Dr: Brigid VALENCIAP- Ordering Physician: Brigid Guy Date of Service: 02/03/25 Procedure(s): US renal BI Accession Number(s): [id number] cc: Brgiid Guy-; Petra WlieyP EXAMINATION: US RETROPERITONEAL LIMITED (RENAL ONLY) CLINICAL [...] 02/03/25 1505 DD/ 1334 TD/TT: 02/03/25 1344 Stencil Cutter: Procedure Note Donotuseinterpreter, Image - 02/03/[address] [place] [address] Ultrasound Report Signed Patient: Ambika McdermottMR#: [id number] : 1985Acct:[id number] Age/Sex: 39 / FADM Date: 02/03/25 Loc: HO.US Attending Dr: Brigid LUCERO- Ordering Physician: Brigid Guy Date of Service: 02/03/25 Procedure(s): US renal BI Accession Number(s): [id number] cc: Brigid Guy-; Petra Wiley EXAMINATION: US RETROPERITONEAL LIMITED (RENAL [...] 02/03/25 1505 DD/ 1334 TD/TT: 02/03/25 1344 Stencil Cutter: [facility] External Provider IMG US PROCEDURES Final Result * XR Elbow 3+ Views Left (01/17/2025 12:39 AM EDT) Anatomical Region Laterality Modality Upper Extremities, Elbow Left Radiogr aphic Imaging 01/17/2025 12:3 9 AM EDT Narrative 01/17/2025 12:40 AM EDT [address] [address] XRay Report Signed Patient: Ambika Mcdermott MR#: [id number] : 1985 Acct:[id number] Age/Sex: 39 / F ADM Date: 01/17/25 Loc: HO.ED Attending Dr: Ordering Physician: Generic ED Physician Date of Service: 01/16/25 Procedure(s): XR elbow LT min 3V Accession Number(s): [id number] cc: Generic ED Physician; Petra Wiley CLINICAL [...] MD in OV> 01/17/2538 DD/ TD/TT: 01/17/2538 Stencil Cutter: Procedure Note Donotuseinterpreter, Image - 01/17/[address] [address] XRay Report Signed Patient: Ambika McdermottMR#: [id number] : 1985Acct:[id number] Age/Sex: 39 / FADM Date: 01/17/25 Loc: HO.ED Attending Dr: Ordering Physician: Generic ED Physician Date of Service: 01/16/25 Procedure(s): XR elbow LT min 3V Accession Number(s): [id number] cc: Generic ED Physician; Petra Wiley CLINICAL [...] MD in OV> 01/17/2538 DD/ TD/TT: 01/17/2538 Stencil Cutter: us [facility] External Provider IMG XR PROCEDURES Final Result * XR Knee 4+ Views Left (01/17/2025 12:26 AM EDT) Anatomical Region Laterality Modality Lower Extremities, Knee Left Radiogra phic Imaging 01/17/2025 12:2 6 AM EDT Narrative 01/17/2025 12:28 AM EDT [place] [address] XRay Report Signed Patient: Ambika Mcdermott MR#: [id number] : 1985 Acct:[id number] Age/Sex: 39 / F ADM Date: 01/17/25 Loc: .ED Attending Dr: Ordering Physician: Generic ED Physician Date of Service: 01/16/25 Procedure(s): XR knee LT 4V Accession Number(s): [id number] cc: Generic ED Physician; Petra Wiley CLINICAL [...] MD in OV> 01/17/2526 DD/ TD/TT: 01/17/2525 Stencil Cutter: Procedure Note Donotuseinterpreter, Image - 01/17/2025 [place] [id number] [place] [address] XRay Report Signed Patient: Ambika McdermottMR#: [id number] : 1985Acct:[id number] Age/Sex: 39 / FADM Date: 01/17/25 Loc: HO.ED Attending Dr: Ordering Physician: Generic ED Physician Date of Service: 01/16/25 Procedure(s): XR knee LT 4V Accession Number(s): [id number] cc: Generic ED Physician; Petra Wiley CLINICAL [...] MD in OV> 01/17/2526 DD/ TD/TT: 01/17/2525 Stencil Cutter: [facility] External Provider IMG XR PROCEDURES Final Result * XR Elbow 1-2 Views Left (01/16/2025 12:48 PM EDT) Anatomical Region Laterality Modality Upper Extremities, Elbow Left Radiogr aphic Imaging Historical Provider IMToyin XR PROCEDURES Final R esult * HPV DNA, Low/High Risk (01/13/2025 4:39 PM EDT) HPV High Risk Negative Negative [facility] HPV Genotype 16 Negative Negative [facility] HPV Genotype 18 Negative Negative [facility] Comment:HPV testing performe d at [facility] (CLIA#[id number]), [address] [place] [address].Testing for HPV was performed using the infibond SRI 6800system. The presence of HPV in [...] Provider LAB BLOOD ORDERAB LES Final Result [facility] [address] [place] [phone] * Pap Smear (01/13/2025 4:39 PM EDT) 01/13/2025 4:39 PM EDT 01/14/2025 1:27 PM EDT Vicky [facility] - 01/21/2025 10:02 AM EDT ----- ------- Name: Ambika Mcdermott Age/Sex: 39/F : 1985 Unit#: [id number] Attend Dr: Vicente Mooney MD Re01/13/25 Status: DEP REF Location: HO.LNP Disch: ----- ------- SPEC : [id number] RECD: 01/14/25 STATUS: OLIMPIA IQBAL NUM: [id number] BILLY: 01/13/[address] [facility] [address]: Vicente Mooney MD ENTERED: 01/14/25 SP TYPE: Pap Smr OT DR: Petra Wiley DIRECTOR DIGITAL ORDERED: Pap Smear Interpretation Satisfactory for evaluation. [...] and HPV testing will be performed at [facility] (CLIA #[id number]), [address] [place] [address]. Testing for HPV was performed using the [...] detected. All professional services are performed by [facility] ([address] [place] [phone]; ; CLIA #[id number]). The PAP Test is a screening procedure with the inherent possibility of both false negative and false positive results. Results should be interpreted in the context of historic and current clinical findings. Reliability of the PAP Test is enhanced by performing the test on a regular repetitive basis. CONTINUED ON NEXT PAGE ----- ------- Name: Ambika Mcdermott Age/Sex: 39/F : 1985 Unit#: [id number] Attend Dr: Vicente Mooney MD Re01/13/25 Status: DEP [facility]F [facility] Disch: ----- ------- SPEC : [id number] RECD: 01/14/25 STATUS: MARIALUISAMaria Isabel RASHEED NUM: [id number] BILLY: 01/13/25-[address] [facility] [address]: Vicente Mooney MD ENTERED: 01/14/258174 SP TYPE: Pap Smr OTHR DR: Petra Wiley ORDERED: Pap Smear Copies To: Petra Wiley [address] [place] [address] Vicente Moonye MD [facility] [address] [place] [address] Drive [address] [place] [phone] ----- ------- Signed (signature on file) SIOMARA Portillo ([facility]) 01/21/25 1002 ----- ------- END OF REPORT Generic External Data Provider LAB CYTOLOGY ORDE RABLES Final Result Performing Organization Address [facility] Co de Phone Number [facility] [address] [place] [address] [phone] * (ABNORMAL) Bacterial Vaginosis (01/13/2025 3:31 PM EDT) [facility] TRICHOMONAS VAGINALIS DETECTION BY PCR NOT DETECTED Not Detect [facility] BACTERIAL VAGINOSIS DETECTION BY PCR NEGATIVE Negative [facility] Comment:The BV organism targ ets [...] GROUP DETECTION BY PCR DETECTED(A) Not Detect [facility] Eva glab krusei PCR NOT DETECTED Not Detect [facility] 01/13/2025 3:31 PM EDT 01/14/2025 12:22 PM EDT Generic External Data Provider LAB MICROBIOLOGY - GENERAL ORDERABLES Final Result Performing Organization Address [facility] de Phone Number [facility] [address] [place] [address] [phone] * Chlamydia/N. Gonorrhoeae RNA, TMA, Urogenitial (01/13/2025 3:31 PM EDT) [facility] CT PCR NOT DETECTED Not Detect. [facility] Comment:A not detected test result [...] psychologicalconsequences. NG PCR NOT DETECTED Not Detect. [facility] Comment:A not detected test result [...] LAB MICROBIOLOGY - GENERAL ORDERABLES Final Result [facility] [address] [place] [phone] * CT Abdomen Pelvis w/ Contrast (01/08/2025 8:17 AM EDT) Anatomical Region Laterality Modality Body, Pelvis, Abdomen Computed T omography 01/08/2025 8:17 AM EDT Narrative 01/08/2025 9:56 AM EDT [address] [address] [address] Scan Report Signed Patient: Ambika Mcdermott MR#: [id number] : 1985 Acct:[id number] Age/Sex: 39 / F ADM Date: 01/08/25 Loc: HO.ED Attending Dr: Ordering Physician: Mateo Escobedo MD Date of Service: 01/08/25 Procedure(s): CT abdomen pelvis w IV con Accession Number(s): [id number] cc: Mateo Escobedo MD; Petra Wiley [facility] Report Number: [id number]: Total DLP = 543.00 mGy-cm EXAMINATION: CT [...] 01/08/25 0953 DD/ 0817 TD/TT: 01/08/25 0937 Stencil Cutter: Procedure Note Donotuseinterpreter, Image - 01/08/[address] [address] [address] Scan Report Signed Patient: Ambika McdermottMR#: [id number] : 1985Acct:[id number] Age/Sex: 39 / FADM Date: 01/08/25 Loc: .ED Attending Dr: Ordering Physician: Mateo Escobedo MD Date of Service: 01/08/25 Procedure(s): CT abdomen pelvis w IV con Accession Number(s): [id number] cc: Mateo Escobedo MD; Petra Wiley [facility] Report Number: [id number]: Total DLP = 543.00 mGy-cm EXAMINATION: CT [...] signed by Corky Priest MD in OV> 01/08/2553 DD/ 6 TD/TT: 01/08/2537 Stencil Cutter: [facility] External Provider IMG CT PROCEDURES Edited Result - Final * Urinalysis w/reflex microscopic (01/08/2025 7:03 AM EDT) Color Urine Yellow [facility] Appearance Urine Clear [facility] PH 5.5 5.0 - 9.0 [facility] Glucose Urine UA Negative Negative mg/dL [facility] Urine Blood Negative Negative [facility] Specific [place] - Urine 1.020 1.005 - 1.025 [facility] Urine Protein Negative Neg-Trace mg/dL [facility] Urine Ketones Negative Negative mg/dL [facility] Nitrite Urine Negative Negative [facility] Leukocyte Esterase Urine Negative Negative [facility] 01/08/2025 7:03 AM EDT 01/08/2025 7:08 AM EDT Narrative [facility] - 01/08/2025 7:33 AM EDT Urine, Clean Catch Generic External Data Provider LAB URINE ORDERAB LES Final Result [facility] [address] [place] [phone] * High Sensitivity Troponin I (01/08/2025 5:54 AM EDT) [facility] TROPONIN I HIGH SENSITIVITY <2.7 <3.5 - 17.0 ng/L [facility] Comment:[place] high sens itivity Troponin-I results should beused in conjunction with other diagnostic information suchas ECG, clinical observations and information, and patientsymptoms to aid in the diagnosis of CO. 01/08/2025 5:54 AM EDT 01/08/2025 5:59 AM EDT us Generic External Data Provider LAB BLOOD ORDERAB LES Final Result [facility] [address] [place] [phone] * (ABNORMAL) CBC auto differential (01/08/2025 5:54 AM EDT) Only the most recent of3 resultswithin the time period is included. [facility] White Blood Count 12.4(H) 4.8 - 10.8 X10*3/uL [facility] Red Blood Count 4.99 4.20 - 5.50 X10*6/uL [facility] Hemoglobin 13.2 12.0 - 16.0 g/dl [facility] Hematocrit 41.4 37.0 - 47.0 % [facility] Mean Corpuscular Volume 83.0 80.0 - 98.0 fL [facility] Mean Corpuscular Hemoglobin 26.5(L) 27.0 - 33.0 pg [facility] Mean Corpuscular HGB Conc 31.9 31.0 - 35.0 g/dl [facility] Red Cell Distribution Width 15.3 11.0 - 16.0 % [facility] Platelet Count 271 160 - 400 X10*3/uL [facility] Mean Platelet Volume 11.2 9.4 - 12.3 fL [facility] Neutrophils Percent Auto 77.5(H) 45 - 73 % [facility] Imm Gran Pct Auto 1.1(H) 0.0 - 0.4 % [facility] Lymphocytes Percent Auto 15.0(L) 20 - 40 % [facility] Monocytes Percent Auto 5.2 2 - 11 % [facility] Eosinophils Percent Auto 0.8 0 - 4 % [facility] Basophils Percent Auto 0.4 0 - 2 % [facility] NRBC Pct Auto 0.0 0.0 - 0.2 /100WBC [facility] Neutrophils Absolute Auto 9.6(H) 2.0 - 8.3 x10*3/uL [facility] Imm Gran Abs Auto 0.14(H) 0.00 - 0.03 X10*3/uL [facility] Lymphocytes Absolute Auto 1.9 1.2 - 4.9 X10*3/uL [facility] Monocytes Absolute Auto 0.6 0.1 - 1.2 X10*3/uL [facility] Eosinophils Absolute Auto 0.1 0.0 - 0.4 X10*3/uL [facility] Basophils Absolute Auto 0.1 0.0 - 0.2 X10*3/uL [facility] NRBC Abs Auto 0.000 0.0 - 0.012 X10*3/uL [facility] 01/08/2025 5:54 AM EDT 01/08/2025 5:59 AM EDT us Generic External Data Provider LAB BLOOD ORDERAB LES Final Result [facility] [address] [place] [phone] * hCG, Total, Quantitative (01/08/2025 5:54 AM EDT) Only the most recent of2 resultswithin the time period is included. HCG Quantitative <2 mIU/mL [facility] Comment:Weeks post LMP Appro ximate hCG(Last Menstrual Period) Range (mIU/ml)3 - 4 weeks 9 - 1304 - 5 weeks 75 - 2,6005 - 6 weeks 850 - 20,8006 - 7 weeks 4000 - 100,2007 - 12 weeks 11,500 - 289,68873 - 16 weeks 18,300 - 137,60243 - 29 weeks (2nd trimester) 1,400 - 53,63036 - 41 weeks (3rd trimester) 940 - [...] Final Result Performing Organization Address [facility]/ZIP Co de Phone Number [facility] [address] [place] [phone] * Lipase (01/08/2025 5:54 AM EDT) Only the most recent of2 resultswithin the time period is included. Lipase 28 8 - 78 U/L [facility] 01/08/2025 5:54 AM EDT 01/08/2025 5:59 AM EDT Generic External Data Provider LAB BLOOD ORDERAB LES Final Result Performing Organization Address [facility] Co de Phone Number [facility] [address] [place] [phone] * (ABNORMAL) Comprehensive Metabolic Panel (01/08/2025 5:54 AM EDT) Only the most recent of3 resultswithin the time period is included. Sodium 140 135 - 145 mmol/L [facility] Potassium 3.9 3.3 - 5.1 mmol/L [facility] Chloride 109(H) 96 - 108 mmol/L [facility] Carbon Dioxide 24 22 - 29 mmol/L [facility] Anion Gap 11(L) 12 - 20 [facility] Urea Nitrogen (BUN) 8(L) 9 - 16 mg/dL [facility] Creatinine, Serum 0.61 0.5 - 1.4 mg/dL [facility] Creatinine Clr Calc Pharmacy 111.6 [facility] Comment:Provided height and weight: 152.4 cm,71.8 kg.eGFR (calculated from the MDRD study equation) and eCrCl(calculated from the Cockcroft-Gault equation) are based ondifferent parameters and may not yield comparable results.If eCrCl result is absurd, please check patient'sheight/weight. Estimated Glomerular Filt Rate >60 [facility] Comment:Chronic Kidney Disea se: Estimated GFR < 60 mL/min/1.97q0Upwctq Kidney Disease: Estimated GFR < 15 mL/min/1.73m2 Glucose 111 60 - 115 mg/dL [facility] Calcium 9.2 8.4 - 10.2 mg/dL [facility] Bilirubin, Total 0.2 0.0 - 1.0 mg/dL [facility] Aspartate Amino Transferase 18 5 - 31 U/L [facility] Alanine Aminotransferase 19 0 - 31 U/L [facility] Total Protein 7.5 6.5 - 8.0 g/dL [facility] Albumin Level 4.6 3.5 - 5.0 g/dL [facility] Alkaline Phosphatase 68 39 - 117 U/L [facility] 01/08/2025 5:54 AM EDT 01/08/2025 5:59 AM EDT us Generic External Data Provider LAB BLOOD ORDERAB LES Final Result [facility] [address] [place] [phone] * CT Abdomen Pelvis w/o Contrast (12/16/2024 3:24 PM EDT) Anatomical Region Laterality Modality Body, Pelvis, Abdomen Computed T omography 12/16/2024 3:24 PM EDT Narrative 12/16/2024 5:00 PM EDT [address] [address] [address] Scan Report Signed Patient: Ambika Mcdermott MR#: [id number] : 1985 Acct:[id number] Age/Sex: 39 / F ADM Date: 12/16/24 Loc: HO.ED Attending Dr: Ordering Physician: Osman Mathew MD Date of Service: 12/16/24 Procedure(s): CT abdomen pelvis wo IV con Accession Number(s): [id number] cc: Osman Mathew MD; Petra Wiley [facility] Report Number: [id number]: Total DLP = 553.00 mGy-cm EXAMINATION: CT [...] 12/16/24 1657 DD/ 1524 TD/TT: 12/16/24 1635 Stencil Cutter: Procedure Note Donotuseinterpreter, Image - 12/16/[address] [place] [address] [address] Scan Report Signed Patient: Ambika McdermottMR#: [id number] : 1985Acct:[id number] Age/Sex: 39 / FADM Date: 12/16/24 Loc: .ED Attending Dr: Ordering Physician: Osman Mathew MD Date of Service: 12/16/24 Procedure(s): CT abdomen pelvis wo IV con Accession Number(s): [id number] cc: Osman Mathew MD; Petra Wiley DIRECTOR DIGITAL Report Number: [id number]: Total DLP = 553.00 mGy-cm EXAMINATION: CT [...] 12/16/24 1657 DD/ 1524 TD/TT: 12/16/24 1635 Stencil Cutter: [facility] External Provider IMG CT PROCEDURES Final Result * (ABNORMAL) Urinalysis, Complete, with Reflex to Culture (12/16/2024 3:20 PM EDT) Color Urine Yellow [facility] Appearance Urine Clear [facility] PH 5.5 5.0 - 9.0 [facility] Glucose Urine UA Negative Negative mg/dL [facility] Urine Blood Negative Negative [facility] Specific [place] - Urine 1.020 1.005 - 1.025 [facility] Urine Protein Negative Neg-Trace mg/dL [facility] Urine Ketones Trace Negative mg/dL [facility] Nitrite Urine Negative Negative [facility] Leukocyte Esterase Urine Small (1+)(A) Negative [facility] RBC Urine 0-2 0 - 2 /HPF [facility] Urine WBC 0-5 0 - 5 /HPF [facility] Urine Squamous Epithelial Cell 0-2 0 - 2 /HPF [facility] Urine Bacteria None Seen None Seen [facility] Hyaline Casts, Urine 0-2 0 - 2 /LPF [facility] 12/16/2024 3:20 PM EDT 12/16/2024 3:49 PM EDT [facility] - 12/16/2024 4:06 PM EDT [id number], Clean Catch us Generic External Data Provider LAB URINE ORDERAB LES Final Result Performing Organization Address [facility]/ZIP Co de Phone Number [facility] [address] [place] [phone] * Culture, Urine, Routine (12/16/2024 12:00 AM EDT) Urine Urine specimen obtained by clean catch procedure / Unknown 12/16/2024 12/16/2024 Comment:[facility] - 12/18/2024 11:46 AM EDT Urine Culture Report Result Urine Culture < 10,000 cfu/ml Specimen Source: Urine clean catch us Generic External Data Provider LAB MICROBIOLOGY - GENERAL ORDERABLES Final Result [facility] [address] [place] [address] [phone] * Hemoglobin A1c (11/26/2024 2:45 PM EDT) Hemoglobin A1c 5.0 <6.0 % [facility] Comment:Hemoglobin A1C Refer ence Range Adults: 4.8 - 6.0 % Non diabetic: < 6.0 % Goal: < 7.0 %Additional Action Suggested: > 8.0 %Note: Hemoglobin A1c results are invalid for patients with abnormal amounts of HbF. Blood transfusions may impact the HbA1c concentration in the patient sample. Estimated Average Glucose 97 mg/dL [facility] Comment:eAG = Estimated ave rage glucose which is %A1C expressed asaverage glucose, using the formula of the T2Y-OkrupbgGxfsjnv Glucose study (ADAG), Diabetes Care, Vol.31,#8,Jan. 2007 Blood Venous blood specimen / Unknown 11/26/2024 2:45 PM EDT 11/26/2024 2:45 PM EDT us Petra Wiley DIRECTOR DIGITAL LAB BLOOD ORDERABLES Final Res ult Performing Organization Address [facility] Co de Phone Number [facility] [address] [place] [phone] * (ABNORMAL) Lipid Panel, Standard (11/26/2024 2:45 PM EDT) Triglycerides 101 <150 mg/dL [facility] Comment:Desirable Triglyceri de: less than 150 mg/dLBorderline High Triglyceride 150-199 mg/dLHigh Triglyceride: 200-499 mg/dLVery High Triglyceride: greater than or equal to 5OO mg/dL Cholesterol 208(H) <200 mg/dL [facility] Comment:Desirable Cholestero l: less than 200 mg/dLBorderline High Cholesterol: 200-239 mg/dLHigh Cholesterol: greater than 239 mg/dL LDL Cholesterol Calculated 140(H) <100 mg/dL [facility] Comment:Desirable LDL: less than 100 mg/dLNear Optimal/Above Optimal LDL: 110- 129 mg/dLBorderline High LDL: 130-159 mg/dLHigh LDL: 160-189 mg/dLVery High LDL: greater than or equal to 190 mg/dL HDL Cholesterol 48 >40 mg/dL [facility] Comment:Desirable HDL: great er than 40 mg/dL Note: This HDL assay may give artificially low results in patients with liver disease. Blood Venous blood specimen / Unknown 11/26/2024 2:45 PM EDT 11/26/2024 2:45 PM EDT us Petra Wiley DIRECTOR DIGITAL LAB BLOOD ORDERABLES Final Res ult [facility] [address] [place] [phone] * XR Hand 3+ Views Left (11/25/2024 8:34 PM EDT) Anatomical Region Laterality Modality Upper Extremities, Hand Left Radiogra phic Imaging 11/25/2024 8:34 PM EDT Narrative 11/25/2024 8:35 PM EDT [address] [address] XRay Report Signed Patient: Ambika Mcdermott MR#: [id number] : 1985 Acct:[id number] Age/Sex: 39 / F ADM Date: 11/25/24 Loc: HO.MEL Attending Dr: Petra LUCERO Ordering Physician: Petra Wiley Date of Service: 11/25/24 Procedure(s): XR hand LT min 3V Accession Number(s): [id number] cc: Petra Wiley CLINICAL HISTORY: 39 y [...] in OV> 11/25/242033 DD/ 33 TD/TT: 11/25/242033 Stencil Cutter: Procedure Note Donotbonnieinterpreter, Image - 11/25/2024 [place] [address] XRay Report Signed Patient: Ambika McdermottMR#: [id number] : 1985Acct:[id number] Age/Sex: 39 / FADM Date: 11/25/24 Loc: HO.XRAY Attending Dr: Petra Wiley DIRECTOR DIGITAL Ordering Physician: Petra Wiley Date of Service: 11/25/24 Procedure(s): XR hand LT min 3V Accession Number(s): [id number] cc: Petra Wiley CLINICAL HISTORY: 39 y [...] in OV> 11/25/242033 DD/ 33 TD/TT: 11/25/242033 Stencil Cutter: Petra Wiley DIRECTOR DIGITAL IMG XR PROCEDURES Final Result * Pathologist Review Of Peripheral Smear (11/19/2024 4:26 PM EDT) Pathologist Review - CBC SEE NOTE [facility] Comment:- Unremarkable perip heral smear.Reviewed by Alysia Moncada MD Blood Venous blood specimen / Unknown 11/19/2024 4:26 PM EDT 11/19/2024 4:26 PM EDT Petra Wiley DIRECTOR DIGITAL LAB BLOOD ORDERABLES Final Res ult Performing Organization Address [facility]/ZIP Co de Phone Number [facility] [address] [place] [phone] * Iron And Total Iron Binding Capacity (11/19/2024 4:26 PM EDT) Iron 89 30 - 160 mcg/dL [facility] Total Iron Binding Capacity 298 228 - 428 mcg/dL [facility] Percent Iron Saturation 30 15 - 50 % [facility] Unsaturated Iron Binding 209 ug/dL [facility] Blood Venous blood specimen / Unknown 11/19/2024 4:26 PM EDT 11/19/2024 4:26 PM EDT Petra Wiley DIRECTOR DIGITAL LAB BLOOD ORDERABLES Final Res ult Performing Organization Address [facility] Co de Phone Number [facility] [address] [place] [phone] * Lactate Dehydrogenase (LD) (11/19/2024 4:26 PM EDT) Lactate Dehydrogenase 135 122 - 220 U/L [facility] Blood Venous blood specimen / Unknown 11/19/2024 4:26 PM EDT 11/19/2024 4:26 PM EDT Petra Wiley DIRECTOR DIGITAL LAB BLOOD ORDERABLES Final Res ult Performing Organization Address [facility] Co de Phone Number [facility] [address] [place] [phone] * Ferritin (11/19/2024 4:26 PM EDT) Ferritin 116 10 - 122 ng/mL [facility] Blood Venous blood specimen / Unknown 11/19/2024 4:26 PM EDT 11/19/2024 4:26 PM EDT us Petra Wiley DIRECTOR DIGITAL LAB BLOOD ORDERABLES Final Res ult [facility] [address] [place] [address] [phone] * BI Mammogram Diagnostic Tomosynthesis Bilateral (09/01/2024 12:30 PM EDT) Anatomical Region Laterality Modality Breast Bilateral Mammography 09/01/2024 12:3 0 PM EDT Narrative 09/01/2024 3:58 PM EDT [address] [place] [address] Mammography Report Signed Patient: Ambika Mcdermott MR#: [id number] : 1985 Acct:[id number] Age/Sex: 39 / F ADM Date: 09/01/24 Loc: HO.MAMMO Attending Dr: Petra Wiley DIRECTOR DIGITAL Ordering Physician: Petra Wiley Results: 3.6MPr obably Benign Finding - Short 6 M F/U Suggested Date of Service: 09/01/24 Follow Up: 6 Month F/U Procedure(s): MM tomosynthesis diagnostic BI Accession Number(s): [id number] cc: Petra Wiley EXAMINATION: MM DIAGNOSTIC DIGITAL [...] 09/01/24 1555 DD/ 1230 TD/TT: 09/01/24 1332 Stencil Cutter: Procedure Note Donotuseinterpreter, Image - 09/01/2024 [facility] [address] [place] [address] Mammography Report Signed Patient: Ambika Mcdermott#: [id number] : 1985Acct:[id number] Age/Sex: 39 / FADM Date: 09/01/24 Loc: HO.MAMMO Attending Dr: Petra Wiley DIRECTOR DIGITAL Ordering Physician: Petra Wiley FNPResults: 3.6MPr obably Benign Finding - Short 6 M F/U Suggested Date of Service: 09/01/24Follow Up: 6 Month F/U Procedure(s): MM tomosynthesis diagnostic BI Accession Number(s): [id number] cc: Petra Wiley DIRECTOR DIGITAL EXAMINATION: MM DIAGNOSTIC DIGITAL BREAST TOMOSYNTHESIS, BILATERAL [...] 09/01/24 1555 DD/ 1230 TD/TT: 09/01/24 1332 Stencil Cutter: us Petra Wiley [facility] IMG BI PROCEDURES Final Result * Hepatitis C Viral RNA, Quantitative, Real-Time PCR (03/18/2024 2:05 PM EDT) Pathologist [facility] Hepatitis C Viral Load <15 NOT DETECTED NOT DETECTED IU/mL [facility] HCV Log PCR <1.18 NOT DETECTED NOT DETECTED Log IU/mL [facility] Comment:For additional infor felton, please refer [email or web address]/faq/[email or web address](This link is being provided for informational/educational purposes only.)THIS TEST WAS PERFORMED AT:[facility] [employer] [place] [phone] DEL CID MD Blood 03/18/2024 2:05 PM EDT 03/18/2024 2:05 PM EDT Result [facility] BLOOD ORDERABLES Final Res ult [facility] [address] [place] [phone] [phone] * HIV-1/2 Antigen and Antibodies, Fourth Generation, with Reflexes (03/18/2024 2:05 PM EDT) [facility] HIV AB/AG Nonreactive Nonreactive [facility] Comment:HIV-1 p24 Ag and/or HIV-1/HIV-2 Ab not detected.A test result that is nonreactive does not exclude thepossibility of exposure to or infection with HIV-1 and/orHIV-2. Nonreactive results in this assay for individualswith prior exposure to HIV-1 and/or HIV-2 may be due toantigen and antibody levels that are below the limit ofdetection of this assay.The [employer] (ServiceCEO)niContentRealtime HIV Ag/Ab Combo assay result andsupplemental assay results should be interpreted inconjunction with the patient's clinical presentation,history and other laboratory results. If the results areinconsistent with clinical evidence, additional testing issuggested to confirm the result. Blood Venous blood specimen / Unknown 03/18/2024 2:05 PM EDT 03/18/2024 2:05 PM EDT Petra Wiley DIRECTOR DIGITAL LAB BLOOD ORDERABLES Final Res ult [facility] [address] [place] [address] [phone] from Last 3 Months or Most Recently Relevant to Health Maintenance Insurance [facility] C3 DENTAL-[facility] MEDICAID STAND ADULT Care Teams Equity Analyst Relationship Specialty Start Date End Date Petra Wiley FNP [address] [place] [address] PCP - General Family Medicine 03/17/24 [place]ard [place] [address] Rheumatology 05/17/24September 11 [facility] [address] [place] [address] Gastroenterology 05/17/24 Juan Sandra MD [address] [place] [address] Hematology and Oncology 05/17/24 Brigid Guy NP [address] Suite [address] [place] [address] Urology 05/17/24 Vicente Mooney MD [address] [place] [address] [address] [place] [address] Obstetrics and Gynecology 05/17/24 Beth Rai MD [address] [place] [address] Neurology 05/17/24 Michell Espinoza 11 [facility] 3rd [place] [address] Cardiology 05/17/24 Formerly [facility] Office MessengerAir Drier 09/26/23
--- OUTSIDE RECORDS SUMMARY | 2025-02-18 12:23 | XMS_ITS | Encounter Summary ---
Author Organization [employer] Address 75 [facility] 7t [place] [address] Care Team Providers Care Plastics Nurse Name Role Phone Petra Wiley Primary Care Provider Willard Waters Unavailable [phone] September Unavailable Juan Sandra MD Unavailable [phone] Brigid Guy NP Unavailable Vicente Mooney MD Unavailable Beth Rai MD Unavailable Michell Espinoza Unavailable Reason for Visit * Reason Onset Date Comments Appointment Request 01/08/2025 Encounter Details Date Type Department Care Team (Late st Contact Info) Description 01/08/2025 Telephone [facility] MEDICINE [address] [place] [address] Petra Wiley FNP [address] [place], [place] [phone] Appointment Request Social History Tobacco Use Types [...] and unable to attend. Contact pt at [phone] documented in this encounter Plan of Treatment Upcoming Encounters Date Type Department Care Team (Late st Contact Info) Description 02/23/2025 1:00 PM EDT Clinical Support [facility] DIABETES/NUTRITION [address] [place], [place] [phone] Tamanna Mcintyre RD [address] [place] [address] documented as of this encounter Visit Diagnoses Not on filedocumented in this encounter Additional Health Concerns Assessment Noted Time PHQ-9 Depression Total Score: 8 11/26/19 25 5:52 PM EDT documented as of this encounter Care Teams Plastics Nurse Relationship Specialty Start Date End Date Petra Wiley FNP [address] [place] [address] PCP - General Family Medicine 03/17/24 Willard Waters [address] Rheumatology 05/17/24KesslerSeptember [address] [facility] 3rd [place] [address] Gastroenterology 05/17/24 Juan Sandra MD [address] [place] [address] Hematology and Oncology 05/17/24 Brigid Guy NP [address] [facility] [address] [place] [address] Urology 05/17/24 Vicente Mooney MD [address] [place] [address] [address] [place] [address] Obstetrics and Gynecology 05/17/24 Beth Rai MD [address] [place] [address] 140 [place] [address] Neurology 05/17/24 Michell Espinoza [address] [facility] 3rd [place] [address] Cardiology 05/17/24 Shelia Zheng Elevator TroubleshooterPorter Marina 09/26/23 documented as of this encounter
--- OUTSIDE RECORDS SUMMARY | 2025-02-18 12:23 | XMS_ITS | Encounter Summary ---
Author Organization [employer] Address 75 [facility] 7t [place] [address] Care Team Providers Care Induction Heat Treater Name Role Phone Jennie Murray MD Primary Care Provider Petra Wiley Primary Care Provider Willard Waters Unavailable [phone] Victoria Sumaya Unavailable Juan Sandra MD Unavailable [phone] Brigid Guy NP Unavailable Vicente Mooney MD Unavailable Beth Rai MD Unavailable [phone] Michell Espinoza Unavailable Reason for Visit * Reason Onset Date Comments medication 09/19/2022 Encounter Details Date Type Department Care Team (Late st Contact Info) Description 09/19/[address] [facility] ADULT DENTAL [address] [place], [place] [phone] Venkat Barreto DDS [address] [place], [place] [phone] medication Social History Tobacco Use Types Packs/Day [...] Script was sent for Augementin to [facility] in [place]. Patient went in to fiber picker script and they stated there was nothing there. Contacted [facility] and they stated that nationwide there was a shut down on their system for about 3 hours so it doesn't look like they received it. Can it be resent for patient? documented in this encounter Plan of Treatment Upcoming Encounters Date Type Department Care Team (Late st Contact Info) Description 02/23/2025 1:00 PM EDT Clinical Support [facility] DIABETES/NUTRITION [address] [place] [address] Tamanna Mcintyre, ANGELINA 230 [place] [address] documented as of this encounter Visit Diagnoses Not on filedocumented in this encounter Additional Health Concerns Assessment Noted Time PHQ-9 Depression Total Score: 0 07/04/19 23 3:01 PM EST documented as of this encounter Care Teams Induction Heat Treater Relationship Specialty Start Date End Date Jennie Murray MD [address] [place] [address] PCP - General Family Medicine 06/23/13 03/16/24 Petra Wiley FNP 230 [place] [address] PCP - General Family Medicine 03/17/24 Willard Waters 575 [facility] 402 [place], [place] Rheumatology 05/17/[address]aya [address] 3rd [place] [address] Gastroenterology 05/17/24 Juan Sandra MD 575 [place] [address] Hematology and Oncology 05/17/24 Brigid Guy NP [address] [place] [address] Urology 05/17/24 Vicente Mooney MD [address] [place] [address] Obstetrics and Gynecology 05/17/24 Beth Rai MD 15 [facility] 140 [place] [address] Neurology 05/17/24 Michell Espinoza [address] 3rd [place] [address] Cardiology 05/17/24 Shelia Zheng Welder 2Nd ShiftHousehold Worker 09/26/23 documented as of this encounter
--- OUTSIDE RECORDS SUMMARY | 2025-02-18 12:23 | XMS_ITS | Encounter Summary ---
Author Organization [employer] Address 75 [facility] 7t [place] [address] Care Team Providers Care Media Sales Consultant Name Role Phone Jennie Murray MD Primary Care Provider Petra Wiley Primary Care Provider [phone] Willard Waters Unavailable [phone] Victoria Sumaya Unavailable Juan Sandra MD Unavailable [phone] Brigid Guy NP Unavailable Vicente Mooney MD Unavailable Beth Rai MD Unavailable Michell Espinoza Unavailable Encounter Details Date Type Department Care Team (Late st Contact Info) Description 05/25/2022 Abstract [facility] CHC ADULT DENTAL 505 [place], [place] [phone] Dental, Provider, DDS Social History Tobacco Use [...] Description 02/23/2025 1:00 PM EDT Clinical Support [facility] DIABETES/NUTRITION 230 [place], [place] [phone] Tamanna cMintyre RD 230 [place] [address] documented as of this encounter Procedures Procedure [...] on filedocumented in this encounter Care Teams Media Sales Consultant Relationship Specialty Start Date End Date Jennie Murray MD 230 [place] [address] PCP - General Family Medicine 06/23/13 03/16/24 Petra Wiley FNP 230 [place] [address] PCP - General Family Medicine 03/17/24 Willard Waters 575 [facility] 402 [place], [place] Rheumatology 05/17/24 Victoria Sumaya 11 [facility] 3rd [place] [address] Gastroenterology 05/17/24 Juan Sandra MD 575 [place] [address] Hematology and Oncology 05/17/24 Brigid Guy NP [address] [facility] [address] [place] [address] Urology 05/17/24 Vicente Mooney MD [address] [place] [address] [address] [place] [address] Obstetrics and Gynecology 05/17/24 Beth Rai MD [address] [place] [address] 140 [place] [address] Neurology 05/17/24 Michell Espinoza 11 [facility] 3rd [place] [address] Cardiology 05/17/24 Shelia Zheng Route InspectorMedical Appliance Maker 09/26/23 documented as of this encounter
--- OUTSIDE RECORDS SUMMARY | 2025-02-18 12:23 | XMS_ITS | Encounter Summary ---
Author Organization [employer] Address 75 [facility] 7t [place] [address] Care Team Providers Care Family And Divorce Legal Assistant Name Role Phone Jennie Murray MD Primary Care Provider [phone] Petra Wiley Primary Care Provider Willard Waters Unavailable [phone] VictoriaSeptember Unavailable Juan Sandra MD Unavailable [phone] Brigid Guy NP Unavailable Vicente Mooney MD Unavailable Beth Rai MD Unavailable [phone] Michell Espinoza Unavailable Reason for Visit * Reason Onset Date Comments Appointment Request 12/25/2023 Encounter Details Date Type Department Care Team (Late st Contact Info) Description 12/25/2023 Telephone [facility] MEDICINE 230 [place], [place] [phone] Jennie Murray MD 505 [place], [place] [phone] Appointment Request Social History Tobacco Use Types [...] 1:07 PM EDT Tc from Patrice, care aide with [facility], calling to schedule appt for pt. Pt is awaiting transfer pt appt with Dr. Wiley in which handbook writer attempted to schedule but found no availability. Please contact Patrice at [phone]. documented in this encounter Plan of Treatment Upcoming Encounters Date Type Department Care Team (Late st Contact Info) Description 02/23/2025 1:00 PM EDT Clinical Support [facility] DIABETES/NUTRITION 230 [place] [address] [place], [place] [phone] documented as of this encounter Visit Diagnoses Not on filedocumented in this encounter Additional Health Concerns Assessment Noted Time PHQ-9 Depression Total Score: 0 07/04/19 23 3:01 PM EST documented as of this encounter Care Teams Family And Divorce Legal Assistant Relationship Specialty Start Date End Date Jennie Murray MD 230 [place] [address] PCP - General Family Medicine 06/23/13 03/16/24 Petra Wiley FNP 230 [place] [address] PCP - General Family Medicine 03/17/24 Willard Waters [address] [place] [address] Rheumatology 05/17/24KesslerSeptember 11 [facility] 3rd [place] [address] Gastroenterology 05/17/24 Juan Sandra MD [address] [place] [address] Hematology and Oncology 05/17/24 Brigid Guy NP [address] [place] [address] Urology 05/17/24 Vicente Mooney MD [address] [place] [address] [address] [place] [address] Obstetrics and Gynecology 05/17/24 Beth Rai MD [address] [place] [address] 140 [place] [address] Neurology 05/17/24 Michell Espinoza 11 [facility] 3rd [place] [address] Cardiology 05/17/24 [facility] Pole Sander OperatorGrinder Brake Lining 09/26/23 documented as of this encounter
--- OUTSIDE RECORDS SUMMARY | 2025-02-18 12:23 | XMS_ITS | Encounter Summary ---
Author Organization [employer] Address 75 [facility] 7t [place] [address] Care Team Providers Care Voltage Tester Name Role Phone Petra Wiley SUPERVISOR FELLING BUCKING Primary Care Provider Willard Waters Unavailable [phone] September Unavailable Juan Sandra MD Unavailable [phone] Brigid Guy NP Unavailable Vicente Mooney MD Unavailable Beth Rai MD Unavailable [phone] Michell Espinoza Unavailable Reason for Visit * Reason Comments Med Refill Encounter Details Date Type Department Care Team ([facility] st Contact Info) Description 12/03/2024 Refill [facility] CHC MED & PEDS 505 [place], [place] [phone] Petra Wiley FNP 505 [place], [place] [phone] Fibromyalgia Social History Tobacco Use Types Packs/Day [...] Description 02/23/2025 1:00 PM EDT Clinical Support [facility] DIABETES/NUTRITION 230 [place] [address] 230 [place] [address] documented as of this encounter Visit Diagnoses Diagnosis Fibromyalgia Unspecified myalgia and myositis documented in this encounter Additional Health Concerns Assessment Noted Time PHQ-9 Depression Total Score: 8 11/26/19 25 5:52 PM EDT documented as of this encounter Care Teams Voltage Tester Relationship Specialty Start Date End Date Petra Wiley FNP 230 [place] [address] PCP - General Family Medicine 03/17/24 Willard Waters 575 [facility] 402 [place], [place] Rheumatology 05/17/24 Sumaya Kessler [address] 3rd [place] [address] Gastroenterology 05/17/24 Juan Sandra MD 575 [place] [address] Hematology and Oncology 05/17/24 Brigid Guy NP [address] [place] [address] Urology 05/17/24 Vicente Mooney MD [address] [place] [address] [address] [place] [address] Obstetrics and Gynecology 05/17/24 Beth Rai MD [address] [place] [address] 140 [place] [address] Neurology 05/17/24 Michell Espinoza [address] [facility] 3rd [place] [address] Cardiology 05/17/24 Shelia Zheng Chopped Strand OperatorChief Wheelage Clerk 09/26/23 documented as of this encounter
--- OUTSIDE RECORDS SUMMARY | 2025-02-18 12:23 | XMS_ITS | Encounter Summary ---
Author Organization [employer] Address 75 [facility] 7t [place] [address] Care Team Providers Care Game Breeding Farm Manager Name Role Phone Jennie Murray MD Primary Care Provider [phone] Petra Wiley Primary Care Provider Willard Waters Unavailable [phone] KesslerSeptember Unavailable Juan Sandra MD Unavailable [phone] Brigid Guy NP Unavailable Vicente Mooney MD Unavailable Beth Rai MD Unavailable Michell Espinoza Unavailable Encounter Details Date Type Department Care Team (Latest Contact Info) Description 09/03/2018 Abstract [facility] CONVERSIONS Dental, Provider, DDS [...] Description 02/23/2025 1:00 PM EDT Clinical Support [facility] DIABETES/NUTRITION 230 [place] [address] [place], [place] [phone] documented as of this encounter Visit Diagnoses Not on filedocumented in this encounter Care Teams Game Breeding Farm Manager Relationship Specialty Start Date End Date Jennie Murray MD 230 [place] [address] PCP - General Family Medicine 06/23/13 03/16/24 Petra Wiley FNP 230 [place] [address] PCP - General Family Medicine 03/17/24 Willard Waters [address] [place] [address] Rheumatology 05/17/24KesslerSeptember 11 [facility] 3rd [place] [address] Gastroenterology 05/17/24 Juan Sandra MD [address] [place] [address] Hematology and Oncology 05/17/24 Brigid Guy NP [address] [place] [address] Urology 05/17/24 Vicente Mooney MD [address] [place] [address] [address] [place] [address] Obstetrics and Gynecology 05/17/24 Beth Rai MD [address] [place] [address] 140 [place] [address] Neurology 05/17/24 Michell Espinoza 11 [facility] 3rd [place] [address] Cardiology 05/17/24 [facility] Ent PhysicianImcu Nurse 09/26/23 documented as of this encounter
--- OUTSIDE RECORDS SUMMARY | 2025-02-18 12:23 | XMS_ITS | Encounter Summary ---
Author Organization [employer] Address [address] [facility] [address] 7t [place] [address] Care Team Providers Care Trade Facilitator Name Role Phone Petra Wiley LICENSED PHYSICAL THERAPIST ASSISTANT Primary Care Provider [phone] Willard Waters Unavailable [phone] September Unavailable Juan Sandra MD Unavailable [phone] Brigid Guy NP Unavailable Vicente Mooney MD Unavailable Beth Rai MD Unavailable Michell Espinoza Unavailable Encounter Details Date Type Department Care Team (Late st Contact Info) Description 12/21/2024 Orders Only [facility] MEDICINE 230 [place], [place] [phone] Jailene Vitale CNM 230 [place], [place] [phone] Social History Tobacco Use Types Packs/Day Years [...] Description 02/23/2025 1:00 PM EDT Clinical Support [facility] DIABETES/NUTRITION 230 [place] [address] [place] [address] documented as of this encounter Procedures Procedure Name Priority Date/Time Associated Diagnosis Comments PAP SMEAR Routine 10/06/2024 12:00 AM EDT documented in this encounter Results * Pap Smear (10/06/2024 12:00 AM EDT) Swab us Vicente Mooney MD LAB CYTOLOGY ORDERABLES Final Re sult [facility] [address] [place] [address] [phone] documented in this encounter Visit Diagnoses Not on filedocumented in this encounter Additional Health Concerns Assessment Noted Time PHQ-9 Depression Total Score: 8 11/26/19 25 5:52 PM EDT documented as of this encounter Care Teams Trade Facilitator Relationship Specialty Start Date End Date Petra Wiley FNP 230 [place] [address] PCP - General Family Medicine 03/17/24 Willard Waters [address] [place] [address] Rheumatology 05/17/24KesslerSeptember 11 [facility] 3rd [place] [address] Gastroenterology 05/17/24 Juan Sandra MD [address] [place] [address] Hematology and Oncology 05/17/24 Brigid Guy NP 10 [facility] [address] [place] [address] Urology 05/17/24 Vicente Mooney MD [address] [place] [address] [address] [place] [address] Obstetrics and Gynecology 05/17/24 Beth Rai MD [address] [place] [address] 140 [place] [address] Neurology 05/17/24 Michell Espinoza 11 [facility] 3rd [place] [address] Cardiology 05/17/24 Shelia Zheng Computer Systems Design AnalystTax Manager Public 09/26/23 documented as of this encounter
--- OUTSIDE RECORDS SUMMARY | 2025-02-18 12:23 | XMS_ITS | Encounter Summary ---
Author Organization [employer] Address 75 [facility] 7t [place] [address] Care Team Providers Care Hedis Review Nurse Name Role Phone Petra Wiley STITCHER HAND Primary Care Provider Willard Waters Unavailable [phone] September Unavailable Juan Sandra MD Unavailable [phone] Brigid Guy NP Unavailable Vicente Mooney MD Unavailable Beth Rai MD Unavailable Michell Espinoza Unavailable Reason for Visit * Reason Comments Med Refill Encounter Details Date Type Department Care Team ([facility] st Contact Info) Description 01/07/2025 Refill [facility] CHC MED & PEDS 505 [place], [place] [phone] Petra Wiley FNP 505 [place], [place] [phone] Fibromyalgia Social History Tobacco Use Types Packs/Day [...] Description 02/23/2025 1:00 PM EDT Clinical Support [facility] DIABETES/NUTRITION 230 [place] [address] [place] [address] documented as of this encounter Visit Diagnoses Diagnosis Fibromyalgia Unspecified myalgia and myositis documented in this encounter Additional Health Concerns Assessment Noted Time PHQ-9 Depression Total Score: 8 11/26/19 25 5:52 PM EDT documented as of this encounter Care Teams Hedis Review Nurse Relationship Specialty Start Date End Date Petra Wiley FNP 230 [place] [address] PCP - General Family Medicine 03/17/24 Willard Waters 575 [facility] 402 [place], [place] Rheumatology 05/17/24 Sumaya Kessler [address] 3rd [place] [address] Gastroenterology 05/17/24 Juan Sandra MD 575 [place] [address] Hematology and Oncology 05/17/24 Brigid Guy NP [address] [place] [address] Urology 05/17/24 Vicente Mooney MD [address] [place] [address] [address] [place] [address] Obstetrics and Gynecology 05/17/24 Beth Rai MD [address] [place] [address] 140 [place] [address] Neurology 05/17/24 Michell Espinoza 11 [facility] 3rd [place] [address] Cardiology 05/17/24 Shelia Zheng Store Sales ConsultantRegistered Nurse Maternal Child 09/26/23 documented as of this encounter
--- OUTSIDE RECORDS SUMMARY | 2025-02-18 12:23 | XMS_ITS | Encounter Summary ---
Author Organization [facility] Address [address] [place] [address] Care Team Providers Care Senior Principal Software Engineer Name Role Phone Petra Wiley Primary Care Provider [phone] Encounter Details Date Type Department Care Team (Late st Contact Info) Description 12/31/2024 Results Follow-Up [facility] [address] [place], [place] [phone] Supervisor Order Takers: Mary Senior LPN Social History Tobacco Use [...] Description 03/04/2025 3:00 PM EDT Office Visit [facility] Women's Care [address] [place] [address] Supervisor Order Takers: Kate Castaneda [facility] [address] [place] [address] 04/19/2025 1:20 PM EST Lab [facility] ACC Draw Site Fifth Floor 55 [place] [address] 04/19/2025 2:20 PM EST Follow-Up [facility] Building BMT Clinic [address] [place] [address] Shavon Roberson NP 55 [place], [place] [phone] documented as of this encounter Visit Diagnoses Not on filedocumented in this encounter Care Teams Senior Principal Software Engineer Relationship Specialty Start Date End Date Petra Wiley [address] [place] [address] PCP - General Family Medicine 03/19/24 documented as of this encounter
--- OUTSIDE RECORDS SUMMARY | 2025-02-18 12:23 | XMS_ITS | Encounter Summary ---
Author Organization [facility] Address [address] [place] [address] Care Team Providers Care Vice President Business & Corporate Development Name Role Phone Petra Wiley Primary Care Provider [phone] Encounter Details Date Type Department Care Team (Latest Contact Info) Description 06/26/2024 Transcribe Orders [facility] Physician Referral Services [address] [place] [address] Isaiaskiersten Petra 230 [place], [place] [phone] Subcutaneous mass of right upper extremity (Primary [...] Description 03/04/2025 3:00 PM EDT Office Visit [facility] Women[facility] [address] [place] [address] Studio Sales Associate: Shasha Campos PA 119 [place] [address] 04/19/2025 1:20 PM EST Lab [facility] ACC Draw Site Fifth Floor 55 [place] [address] 04/19/2025 2:20 PM EST Follow-Up [facility] BMT Clinic 55 [place] [address] Shavon Roberson NP 55 [place], [place] [phone] documented as of this encounter Visit Diagnoses Diagnosis Subcutaneous mass of right upper extremity- Primary Subcutaneous mass of abdominal wall documented in this encounter Care Teams Vice President Business & Corporate Development Relationship Specialty Start Date End Date Petra Wiley [address] [place] [address] PCP - General Family Medicine 03/19/24 documented as of this encounter
--- OUTSIDE RECORDS SUMMARY | 2025-02-18 12:23 | XMS_ITS | Clinical Summary ---
Author Organization [facility] Address [address] [facility] [address] [place] [address] Phone Care Team Providers Care Seed Cutter Name Role Phone Karolina Murray MD Primary Care Provider [phone] Allergies Active Allergy Reactions Criticality Noted Date [...] SCREENING (On ce After 26 Yrs) 2013 INFLUENZA VACCINE (#1) 2025 6, 03/22/2015, 03/06/2013 COVID-19 VACCINE (2023-2 5 season) 2025 Adult Td,Tdap Booster 10/13/2025 10/14/2015 HEPATITIS A [...] (0-49 years) Aged Out No longer eligible b ased on patient's age to complete this topic Medical Devices Not on file Insurance [facility] [employer] [place] [address] [facility] [place] [id number] [facility] [place] [facility] [place] [id number] [facility] [place] [id number] [facility] [employer] Care Teams Seed Cutter Relationship Specialty Start Date End Date Karolina Murray MD [address] [place], [place] [address] [phone] PCP - General Internal Medicine 09/12/21 Additional Source Comments The information contained in this document represents components of the legal health record. It is not the complete legal health record.[facility]
--- OUTSIDE RECORDS SUMMARY | 2025-02-18 12:23 | XMS_ITS | Encounter Summary ---
Author Organization [employer] Address 75 [facility] 7t [place] [address] Care Team Providers Care Forklift Truck Operator Name Role Phone Jennie Murray MD Primary Care Provider Petra Wiley Primary Care Provider [phone] Willard Waters Unavailable [phone] Sumaya Kessler Unavailable Juan Sandra MD Unavailable [phone] Brigid Guy NP Unavailable Vicente Mooney [...] Telephone [facility] ADULT DENTAL [address] [place] [address] Venkat Barreto DDS [address] [place] [address] Appointment (Ambika Anaya 1985 Patient [...] Description 02/23/2025 1:00 PM EDT Clinical Support [facility] DIABETES/NUTRITION [address] [place] [address] [place] [address] documented as of this encounter Visit Diagnoses Not on filedocumented in this encounter Additional Health Concerns Assessment Noted Time PHQ-9 Depression Total Score: 0 07/04/19 3:01 PM EST documented as of this encounter Care Teams Forklift Truck Operator Relationship Specialty Start Date End Date Jennie Murray MD 230 [place] [address] PCP - General Family Medicine 06/23/13 03/16/24 Petra Wiley FNP [address] [place] [address] PCP - General Family Medicine 03/17/24 Willard Waters [address] [place] [address] Rheumatology 05/17/24 Victoria Sumaya 11 [facility] 3rd [place] [address] Gastroenterology 05/17/24 Juan Sandra MD [address] [place] [address] Hematology and Oncology 05/17/24 Brigid Guy NP [address] [facility] [address] [place] [address] Urology 05/17/24 Vicente Mooney MD [address] [place] [address] [address] [place] [address] Obstetrics and Gynecology 05/17/24 Beth Rai MD [address] [place] [address] 140 [place] [address] Neurology 05/17/24 Michell Espinoza 11 [facility] 3rd [place] [address] Cardiology 05/17/24 [facility] Sander And PolisherInstallation Supervisor 09/26/23 documented as of this encounter
--- OUTSIDE RECORDS SUMMARY | 2025-02-18 12:23 | XMS_ITS | Clinical Summary ---
Author Organization [facility] Address [address] [place] [address] Care Team Providers Care Instrument And Control Service Person Name Role Phone Petra Wiley Primary Care Provider [phone] Allergies Active Allergy Reactions Criticality Noted Date [...] (BENTYL) 10 mg capsule MIGUE Szymanski PSMESHA ISUS VECES AL D A 3 Active famotidine [...] Description 02/09/2025 10:15 AM EDT Office Visit [facility] D[facility]atology Clinic 4th [address] [place] [address], [place] [phone] Sewer Head: Breann Tang MD Raynaud's phenomenon without gangrene (Primary Dx) 01/18/2025 3:40 PM EDT Office Visit [facility] [address] [place] [address] Shavon Roberson NP Iron deficiency (Primary Dx) 12/31/2024 Results Follow-Up [facility] Rheumatology [facility] [address] [place] [address] Sewer Head: Mary Senior LPN 12/02/2024 Telephone [facility] Rheumatology [facility] [address] [place] [address] Sewer Head: Newton Rangel DO from Last 3 Months [...] Description 03/04/2025 3:00 PM EDT Office Visit [facility] [address] [place] [address] Sewer Head: Shasha Campos PA [address] [place] [address] 04/19/2025 1:20 PM EST Lab [facility] ACC Draw Site Fifth Floor [address] [place] [address] 04/19/2025 2:20 PM EST Follow-Up [facility] B[facility] [address] [place] [address] Shavon Roberson NP [address] [place] [address] Health Maintenance Due Date Last Done Comments HPV and Pap Smear 1985 Hepatitis C Screening 1987 Varicella Vaccines (1 of 2 - 13+ 2-dose series) 2000 Hepatitis B Vaccines (1 of 3 - 19+ 3-dose series) 2006 DTaP,Tdap,and Td Vaccines (1 - Tdap) 10/15/2015 10/14/2015 Alcohol/Substance Use Screening 06/17/2024 Depression Screening and Follow-Up 06/17/2024 Social Drivers of Health Yoselin ual Screening 06/17/2024 COVID-19 Vaccine (1 - 2023-2 5 season) 2025 Influenza Vaccine (#1) 2025 6, [...] Years) Completed 05/13/2024 Procedures * Due to [place] state law, this organization might not be [...] 3 Months Results * Due to [place] state law, this organization might not be sharing negative HIV tests. * Iron Saturation (01/18/2025 4:51 PM EDT) Iron Saturation 30 20 - 50 % 6:03 PM EDT [facility] Iron 104 30 - 160 ug/dL 01/18/2025 6:03 PM EDT [facility] Transferrin 274 200 - 360 mg/dL 01/18/2025 6:03 PM EDT [facility] Total Iron Binding Capacity 343 255 - 450 ug/dL 01/18/2025 6:03 PM EDT [facility] Blood Structure of peripheral vein / Unknown Venipuncture / Unknown 01/18/2025 4:51 PM EDT 01/18/2025 5:17 PM EDT Shavon Roberson RETURN AGENT AIRPORT LAB BLOOD ORDERABLES F inal Result [facility]ITALAlcyone ResourcesPA [facility] [address] [place] [address], * (ABNORMAL) CBC Auto Differential (01/18/2025 4:51 PM EDT) WBC 10.2 3.8 - 10.8 10*3/uL 01/18/2025 5:12 PM EDT [facility] RBC 4.67 3.80 - 5.10 10*6/uL 01/18/2025 5:12 PM EDT [facility] Hemoglobin 12.4 11.7 - 15.5 g/dL 01/18/2025 5:12 PM EDT [facility] Hematocrit 39.3 35.0 - 45.0 % 01/18/2025 5:12 PM EDT [facility] MCV 84.2 80.0 - 100.0 fL 01/18/2025 5:12 PM EDT [facility] MCH 26.6(L) 27.0 - 33.0 pg 01/18/2025 5:12 PM EDT [facility] MCHC 31.6(L) 32.0 - 36.0 g/dL 01/18/2025 5:12 PM EDT [facility] RDW 14.8 11.0 - 15.0 % 01/18/2025 5:12 PM EDT [facility] Platelets 264 140 - 400 10*3/uL 01/18/2025 5:12 PM EDT [facility] MPV 12.1 7.5 - 12.5 fL 01/18/2025 5:12 PM EDT [facility] Neutrophil % 68.8 % 01/18/2025 5:12 PM EDT [facility] Immature Grans % 0.2 0.0 - 0.9 % 01/18/2025 5:12 PM EDT [facility] Lymphocyte % 22.2 % 01/18/2025 5:12 PM EDT [facility] Monocyte % 6.5 % 01/18/2025 5:12 PM EDT [facility] Eosinophil % 1.7 % 01/18/2025 5:12 PM EDT [facility] Basophil % 0.6 % 01/18/2025 5:12 PM EDT [facility] Neutrophil # 7.04 1.50 - 7.80 10*3/uL 01/18/2025 5:12 PM EDT [facility] Immature Grans # <0.03 <=0.03 10*3/uL 01/18/2025 5:12 PM EDT [facility] Lymphocyte # 2.30 0.85 - 3.90 10*3/uL 01/18/2025 5:12 PM EDT [facility] SYSTEMW[facility] Monocyte # 0.70 0.20 - 0.95 10*3/uL 01/18/2025 5:12 PM EDT [facility] SYSTEMMazeBolt TechnologiesUNIVERSITY H[facility]ITALS ST[facility] Eosinophil # 0.20 0.02 - 0.50 10*3/uL 01/18/2025 5:12 PM EDT [facility] Basophil # 0.10 0.00 - 0.20 10*3/uL 01/18/2025 5:12 PM EDT [facility] SYSTEMMazeBolt TechnologiesF[facility] nRBC % 0.0 /100 WBCs 01/18/2025 5:12 PM EDT [facility] SYSTEMMazeBolt TechnologiesFORT [facility] nRBC # <0.01 <0.01 10*3/uL 01/18/2025 5:12 PM EDT [facility] Total Neutrophil #, Preliminary 7.04 1.50 - 7.80 10*3/uL 01/18/2025 5:12 PM EDT [facility] Blood Structure of peripheral vein / Unknown Venipuncture / Unknown 01/18/2025 4:51 PM EDT 01/18/2025 5:07 PM EDT Shavon Roberson RETURN AGENT AIRPORT LAB BLOOD ORDERABLES F inal Result [facility] [address] [place] [address], * Reticulocytes (01/18/2025 4:51 PM EDT) Retic % 0.8 0.5 - 1.6 % 01/18/2025 5:12 PM EDT [facility]kCOMazeBolt TechnologiesUNIVERSITY [facility]ALS ST[facility] Retic # 0.04 0.02 - 0.08 10*6/uL 01/18/2025 5:12 PM EDT [facility] Blood Structure of peripheral vein / Unknown Venipuncture / Unknown 01/18/2025 4:51 PM EDT 01/18/2025 5:07 PM EDT Shavon Angela Dipinto RETURN AGENT AIRPORT LAB BLOOD ORDERABLES F inal Result [facility] [address] [place] [address], [place] * (ABNORMAL) Lactate Dehydrogenase (01/18/2025 4:51 PM EDT) LDH 247(H) 135 - 225 U/L 01/18/2025 5:40 PM EDT [facility] Blood Structure of peripheral vein / Unknown Venipuncture / Unknown 01/18/2025 4:51 PM EDT 01/18/2025 5:07 PM EDT [email or web address] Dipinto RETURN AGENT AIRPORT LAB BLOOD ORDERABLES F inal Result Performing Organization Address [facility]/ZIP Co de Phone Number [facility] [address] [place] [address], [place] * Folate (01/18/2025 4:51 PM EDT) Folate 16.4 4.8 - 24.2 ng/mL 01/18/2025 6:03 PM EDT [facility] Blood Structure of peripheral vein / Unknown Venipuncture / Unknown 01/18/2025 4:51 PM EDT 01/18/2025 5:17 PM EDT Shavon Allgood Dipinto RETURN AGENT AIRPORT LAB BLOOD ORDERABLES F inal Result [facility] [address] [place] [address], [place] * Ferritin (01/18/2025 4:51 PM EDT) Pathologist [facility] Ferritin 110.0 11.0 - 306.0 ng/mL 01/18/2025 6:03 PM EDT [facility] Blood Structure of peripheral vein / Unknown Venipuncture / Unknown 01/18/2025 4:51 PM EDT 01/18/2025 5:17 PM EDT [facility] [email or web address] [employer]AP Technology Systemsun[facility] hospitalo RETURN AGENT AIRPORT LAB BLOOD ORDERABLES F inal Result Performing Organization Address City/[facility]/ZIP Co de Phone Number [facility] [address] [place] [phone], * Vitamin B12 (01/18/2025 4:51 PM EDT) Pathologist [facility] Vitamin B12 384 232 - 1,245 pg/mL 01/18/2025 6:03 PM EDT [facility] Blood Structure of peripheral vein / Unknown Venipuncture / Unknown 01/18/2025 4:51 PM EDT 01/18/2025 5:17 PM EDT [facility] Hospital[facility] RETURN AGENT AIRPORT LAB BLOOD ORDERABLES F inal Result Performing Organization Address City/[facility]/ZIP Co de Phone Number [facility] [address] [place] [address], * (ABNORMAL) Comprehensive Metabolic Panel (01/18/2025 4:51 PM EDT) Pathologist [facility] NA 138 135 - 145 mmol/L 01/18/2025 6:03 PM EDT [facility] K 3.9 3.5 - 5.3 mmol/L 01/18/2025 6:03 PM EDT [facility] Cl 104 98 - 107 mmol/L 01/18/2025 6:03 PM EDT [facility] CO2 22 22 - 32 mmol/L 01/18/2025 6:03 PM EDT [facility] Anion Gap 12 5 - 15 01/18/2025 6:03 PM EDT [facility] Glucose 120(H) 65 - 99 mg/dL 01/18/2025 6:03 PM EDT [facility] Creatinine 0.62 0.50 - 1.20 mg/dL 01/18/2025 6:03 PM EDT [facility] Calcium 9.4 8.6 - 10.5 mg/dL 01/18/2025 6:03 PM EDT [facility] Total Protein 7.3 6.0 - 8.0 g/dL 01/18/2025 6:03 PM EDT [facility] Albumin 4.3 3.5 - 5.2 g/dL 01/18/2025 6:03 PM EDT [facility] Bilirubin, Total 0.2 0.2 - 1.2 mg/dL 01/18/2025 6:03 PM EDT [facility] Alkaline Phosphatase 55 35 - 129 U/L 01/18/2025 6:03 PM EDT [facility] AST 19 10 - 40 U/L 01/18/2025 6:03 PM EDT [facility] ALT 13 10 - 40 U/L 01/18/2025 6:03 PM EDT [facility] BUN 9 7 - 23 mg/dL 01/18/2025 6:03 PM EDT [facility] eGFR >90 >=60 mL/min/1. 73m2 01/18/2025 6:03 PM EDT [facility] Comment:The estimated glomer ular [...] - 4.2 g/dL 01/18/2025 6:03 PM EDT [facility] A/G Ratio 1.4(L) 1.5 - 3.0 01/18/2025 6:03 PM EDT [facility] Blood Structure of peripheral vein / Unknown Venipuncture / Unknown 01/18/2025 4:51 PM EDT 01/18/2025 5:17 PM EDT Shavon Marin RETURN AGENT AIRPORT LAB BLOOD ORDERABLES F inal Result Performing Organization Address City/State/[facility] Co de Phone Number [facility] [address] [place] [address], [place] * MRI Hand Right without Contrast (12/02/2024 9:30 PM EDT) Anatomical Region Laterality Modality Upper Extremities, Hand Right Magnetic Resonance 12/02/2024 8:40 PM EDT Narrative 12/07/2024 8:13 AM EDT [facility] Accession Number: [id number] Patient Name: Ambika Mcdermott Date of : 1985 Date of Exam: 12-02-2024 Referring Physician: Newton Street [address] [place] [address] Exam: MR Hand (C-) CPT 75536 - Right Room Description: [facility] 3.0T MRI RIGHT HAND HISTORY: Pain FINDINGS: No marrow edema. No osseous erosion or joint effusion. Flexor and extensor tendons of the hand are intact. No evidence of tenosynovitis. IMPRESSION: Normal examination of the hand Electronically Signed By: Giuliano Anthony MD Procedure Note Provider, Tammy - 12/07/2024 [facility] Accession Number: [id number] Patient Name: Ambika Mcdermott Date of : 1985 Date of Exam: 12-02-2024 Referring Physician: Newton Street [address] [place] [address] Exam: MR Hand (C-) CPT 79107 - Right Room Description: [facility] 3.0T MRI RIGHT HAND HISTORY: Pain [...] Final Result from Last 3 [place] [address] [facility] Care Teams Instrument And Control Service Person Relationship Specialty Start Date End Date Petra Wiley [address] [place] [address] PCP - General Family Medicine 03/19/24
--- OUTSIDE RECORDS SUMMARY | 2025-02-18 12:24 | XMS_ITS | Encounter Summary ---
Author Organization [employer] Address 75 [facility] 7t [place] [address] Care Team Providers Care Senior Net Software Engineer Name Role Phone Jennie Murray MD Primary Care Provider Petra Wiley Primary Care Provider Willard Waters Unavailable [phone] KesslerSeptember Unavailable Juan Sandra MD Unavailable [phone] Brigid Guy NP Unavailable Vicente Mooney MD Unavailable Beth Rai MD Unavailable Michell Espinoza Unavailable Encounter Details Date Type Department Care Team (Late st Contact Info) Description 05/18/2022 Orders Only [facility] MEDICINE [address] [place] [address] Jennie Murray MD [address] [place], [place] [phone] Acute foot pain, unspecified laterality (Primary Dx) [...] Description 02/23/2025 1:00 PM EDT Clinical Support [facility] DIABETES/NUTRITION [address] [place] [address] [place] [address] documented as of this encounter Visit Diagnoses Diagnosis Acute foot pain, unspecified laterality- Primary documented in this encounter Care Teams Senior Net Software Engineer Relationship Specialty Start Date End Date Jennie Murray MD [address] [place] [address] PCP - General Family Medicine 06/23/13 03/16/24 Petra Wiley FNP [address] [place] [address] PCP - General Family Medicine 03/17/24 Willard Waters [address] [place] [address] Rheumatology 05/17/24September [address] 3rd [place] [address] Gastroenterology 05/17/24 Juan Sandra MD [address] [place] [address] Hematology and Oncology 05/17/24 Brigid Guy NP [address] [place] [address] Urology 05/17/24 Vicente Mooney MD [address] [place] [address] [address] [place] [address] Obstetrics and Gynecology 05/17/24 Beth Rai MD [address] [place] [address] [address] [place] [address] Neurology 05/17/24 Michell Espinoza [address] [facility] [address] 3rd [place] [address] Cardiology 05/17/24 Shelia Zheng Sawmilling OperatorLamp Shade Maker 09/26/23 documented as of this encounter
--- OUTSIDE RECORDS SUMMARY | 2025-02-18 12:24 | XMS_ITS | Encounter Summary ---
Author Organization [employer] Address [address] [facility] [address] 7t [place] [address] Care Team Providers Care Buy Boat Operator Name Role Phone Petra Wiley BALANCE SHEET ANALYST Primary Care Provider Willard Waters Unavailable [phone] September Unavailable Juan Sandra MD Unavailable [phone] Brigid Guy NP Unavailable Vicente Mooney MD Unavailable Beth Rai MD Unavailable Michell Espinoza Unavailable Encounter Details Date Type Department Care Team (Late st Contact Info) Description 05/20/2024 Orders Only [facility] CHC MED & PEDS [address] [place], [place] [phone] Provider, MD Addie Social History Tobacco Use [...] Description 02/23/2025 1:00 PM EDT Clinical Support [facility] DIABETES/NUTRITION [address] [place] [address] [place] [address] documented as of this encounter Procedures Procedure [...] documented as of this encounter Care Teams Buy Boat Operator Relationship Specialty Start Date End Date Petra Wiley FNP [address] [place] [address] PCP - General Family Medicine 03/17/24 Willard Waters [address] Rheumatology 05/17/24 Victoria Sumaya [address] 3rd [place] [address] Gastroenterology 05/17/24 Juan Sandra MD [address] [place] [address] Hematology and Oncology 05/17/24 Brigid Guy NP [address] [place] [address] Urology 05/17/24 Vicente Mooney MD [address] [place] [address] [address] [place] [address] Obstetrics and Gynecology 05/17/24 Beth Rai MD [address] [place] [address] [place] [address] Neurology 05/17/24 Michell Espinoza 11 [facility] 3rd [place] [address] Cardiology 05/17/24 Shelia Zheng Camera RepairmanFusion Analyst 09/26/23 documented as of this encounter
--- OUTSIDE RECORDS SUMMARY | 2025-02-18 12:24 | XMS_ITS | Encounter Summary ---
Author Organization [employer] Address 75 [facility] 7t [place] [address] Care Team Providers Care Speech Language Pathology Assistant Name Role Phone Jennie Murray MD Primary Care Provider Petra Wiley Primary Care Provider Willard Waters Unavailable [phone] September Unavailable Juan Sandra MD Unavailable [phone] Brigid Guy NP Unavailable Vicente Mooney MD Unavailable Beth Rai MD Unavailable [phone] Michell Espinoza Unavailable Encounter Details Date Type Department Care Team (Late st Contact Info) Description 07/26/2022 Orders Only [facility] MEDICINE [address] [place] [address] Nelson Medrano MD [address] [place] [phone] Chronic idiopathic constipation (Primary Dx) Social History [...] Description 02/23/2025 1:00 PM EDT Clinical Support [facility] DIABETES/NUTRITION [address] [place] [address] [place] [address] documented as of this encounter Visit Diagnoses Diagnosis Chronic idiopathic constipation- Primary Unspecified constipation documented in this encounter Additional Health Concerns Assessment Noted Time PHQ-9 Depression Total Score: 0 07/04/19 23 3:01 PM EST documented as of this encounter Care Teams Speech Language Pathology Assistant Relationship Specialty Start Date End Date Jennie Murray MD [address] [place] [address] PCP - General Family Medicine 06/23/13 03/16/24 Petra Wiley FNP [address] [place] [address] PCP - General Family Medicine 03/17/24 Willard Waters [address] [place] [address] Rheumatology 05/17/24September [address] 3rd [place] [address] Gastroenterology 05/17/24 Juan Sandra MD [address] [place] [address] Hematology and Oncology 05/17/24 Brigid Guy NP [address] [place] [address] Urology 05/17/24 Vicente Mooney MD [address] [place] [address] [address] [place] [address] Obstetrics and Gynecology 05/17/24 Beth Rai MD [address] [place] [address] Dr Rangel [address] [place] [address] Neurology 05/17/24 Michell Espinoza [address] [facility] [address] 3rd [place] [address] Cardiology 05/17/24 Shelia Zheng Shank InspectorIncident Commander 09/26/23 documented as of this encounter
--- OUTSIDE RECORDS SUMMARY | 2025-02-18 12:24 | XMS_ITS | Encounter Summary ---
Author Organization [employer] Address 75 [facility] 7t [place] [address] Care Team Providers Care Service Restorer Emergency Name Role Phone Petra Wiley VICE PRESIDENT BIOSTATISTICS Primary Care Provider Willard Waters Unavailable [phone] September Unavailable Juan Sandra MD Unavailable [phone] Brigid Guy NP Unavailable Vicente Mooney MD Unavailable Beth Rai MD Unavailable Michell Espinoza Unavailable Encounter Details Date Type Department Care Team (Late st Contact Info) Description 02/01/2025 Orders Only [facility] [address] [place], [place] [phone] Provider, MD Addie Social History Tobacco Use [...] 1:00 PM EDT Clinical Support [facility] DIABETES/NUTRITION [address] [place] [address] [place] [address] documented as of this encounter Procedures Procedure [...] documented as of this encounter Care Teams Service Restorer Emergency Relationship Specialty Start Date End Date Petra Wiley FNP [address] [place] [address] PCP - General Family Medicine 03/17/24 Willard Waters [address] [place] [address] Rheumatology 05/17/24 Sumaya Kessler 11 [facility] 3rd [place] [address] Gastroenterology 05/17/24 Juan Sandra MD [address] [place] [address] Hematology and Oncology 05/17/24 Brigid Guy NP 10 [facility] [address] [place] [address] Urology 05/17/24 Vicente Mooney MD [address] [place] [address] [address] [place] [address] Obstetrics and Gynecology 05/17/24 Beth Rai MD [address] [place] [address] [address] [place] [address] Neurology 05/17/24 Michell Espinoza 11 [facility] 3rd [place] [address] Cardiology 05/17/24 Shelia Zheng Automotive Repair TechnicianAssociate Product Manager 09/26/23 documented as of this encounter
== END 2025-02-18 11:39 | disposition home or self-care (01) ==
LOC: HO.HWS 10:47
PROVIDERS: PCP Registered Nurse; Visit Provider Obstetrics & Gynecology
DX: N83.291 Other ovarian cyst, right side (principal); D25.9 Leiomyoma of uterus, unspecified; T83.32XA Displacement of intrauterine contraceptive device, initial encounter; Z30.432 Encounter for removal of intrauterine contraceptive device
CPT/HCPCS: 58301; 99213

== ENCOUNTER → 2025-02-18 10:47 | Outpatient (BNVA) | payer MEDICAID, SELFPAY | PROVIDERS: PCP Registered Nurse; Visit Provider Obstetrics & Gynecology | DX: Z30.432 Encounter for removal of intrauterine contraceptive device (principal); N83.291 Other ovarian cyst, right side; D25.1 Intramural leiomyoma of uterus; T83.32XA Displacement of intrauterine contraceptive device, initial encounter | CPT/HCPCS: 58301; 99212 ==

== ENCOUNTER 2025-02-24 13:39 | Outpatient (REF) | payer MEDICAID, SELFPAY ==
--- OUTSIDE RECORDS SUMMARY | 2025-02-24 10:45 | XMS_ITS | Encounter Summary ---
Author Organization [employer] Address [address] [place] [address] Care Team Providers Care Bunch Trimmer Mold Name Role Phone Petra Wiley Primary Care Provider [phone] Willard Waters Unavailable [phone] September Unavailable Juan Sandra MD Unavailable [phone] Brigid Guy NP Unavailable Vicente Mooney MD Unavailable Beth Rai MD Unavailable Michell Espinoza Unavailable Encounter Details Date Type Department Care Team (Latest Contact Info) Description 02/24/2025 10:45 AM EDT Office Visit [facility] MEDICINE [address] [place] [address] Petra Wiley FNP [address] [place], [place] [phone] Iron deficiency anemia, unspecified iron deficiency anemia type (Primary Dx); Sore throat; Excessive bleeding in premenopausal period Social History Tobacco Use Types Packs/Day Years [...] shut off services in your home? No 02/24/2025 Depression Answer Date Recorded Patient Health Questionnaire-2 [...] Taken Comments Blood Pressure - - Pulse 103 02/24/2025 11:41 AM EDT Temperature 36.1 C (96.9 F) 02/24/2025 11:41 AM EDT Respiratory Rate 17 02/24/2025 11:4 1 AM EDT Oxygen Saturation 99% 02/24/2025 11: 41 AM EDT Inhaled Oxygen Concentration - - Weight 70.7 kg (155 lb 12.8 oz) 025 11:41 AM EDT Height - - Body Mass Index 31.47 02/01/2025 3:14 PM EDT documented in this encounter Functional Status * Over the last 2 weeks, how often have you been bothered by any of the following problems? Question Answer Date of Assessment Author Feeling nervous, anxious, or on edge 2 02/24/2025 1:21 PM EDT Hodan Henry MA Not being able to stop or control worrying 2 02/24/2025 1:21 PM EDT Hodan Henry MA Worrying too much about different things 2 02/24/2025 1:21 PM EDT Hodan Henry MA Trouble relaxing 2 02/24/2025 1:21 PM EDT Li Curran MA Being so restless that it is hard to sit still 1 02/24/2025 1:21 PM EDT Hodan Henry MA Becoming easily annoyed or irritable 1 02/24/2025 1:21 PM EDT Hodan Henry MA Feeling afraid as if somethi ng awful might happen 2 02/24/2025 1:21 PM EDT Hodan Henry MA JORDANA-7 Total Score 12 02/24/2025 1:21 PM EDT Li Henry MA documented as of this encounter Progress Notes * NIC Rudd - 02/24/2025 10:45 AM EDT Subjective: Ambika Anaya is a 39 y.o. female who presents to the office for a sick visit. Interim History: Last PCP visit: 02/01/25 01/20/2025: [facility] GI-YAIMA Kessler. Started on OTC digest Gold enzyme by registration coordinator. However, in December developed pain in right lower quadrant and question of malpositioned IUD and appendicolith. Sent in Augmentin for possible early appendicitis. Return to clinic 3 months. 02/03/25: Renal US ordered by YAIMA Guy - Bilateral nonobstructing nephrolithiasis 02/03/2025: [facility]-Dr. Mooney. Eval for vaginal bleeding and pelvic cramping over the past few days.On 01/13/2025 malpositioned IUD, Mirena IUD removed and reinserted. Plan for pelvic ultrasound and CBC. Referred to [facility] minimally invasive [facility] surgery for consideration of lap hysterectomy with history of abnormal uterine bleeding. 02/03/2025: [facility] surgery-Dr. Ragland. Previously evaluated for breast fibroadenomas, now presenting for evaluation of multiple lipomas noted throughout her body. Associated with pain. 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 She is requesting removal of these multiple symptomatic lipomas. There is a possibility of causing more discomfort removing the lesions and leaving them alone. Suggested evaluation by surgeon familiar with this condition such as Dr. Tovar of [facility] in [place], [place]. They last may have a more minimally invasive technique for removal. If this is not possible, referral to Plastic surgery for liposuction would be recommended. 02/05/25: US Pelvic - Fundal fibroid appears decreased in size and posterior upper body fibroid appears stable. There is posterior inferior displacement of an IUD by a fundal fibroid 02/09/25: [facility] derm appt. Diagnosed with raynauds, but a subsequent doctor thought it may be erythromelagia. Suspect Raynauds phenonom. Possible synovitis. Sent message to specialist about possibility of lupus diagnosis. 02/18/25: [facility]-Dr. Mooney. Complex ovarian cyst identified by ultrasound. Plan to repeat ultrasoundin 6 weeks. Recommended IUD removal due to malpositioned IUD on ultrasound. Patient gave consent. Current concerns: Menorrhagia/anemia: reports that following removal of IUD, has experienced persistent heavy bleeding. She reports she informed her [facility] linting machine operator. Has upcoming appointment with new safety director on March 04. Primary care concern today is anemia secondary to blood loss. Reports feeling overall more fatigued, increased palpitations. Also reporting sore throat over the last day interested in strep testing. Denies any fevers, chills, nausea, vomiting, diarrhea. No nasal congestion. Problem List[1] Review of Systems Constitutional: Positive for fatigue. Negative for chills and fever. HENT: Positive for sore throat. Negative for congestion. Respiratory: Negative for cough, shortness of breath and wheezing. Cardiovascular: Positive for palpitations. Negative for chest pain. Gastrointestinal: Negative for diarrhea, nausea and vomiting. Visit Vitals Pulse 103 Temp 96.9 ??F (36.1 ??C) (Temporal) Resp 17 Wt 155 lb 12.8 oz (70.7 kg) SpO2 99% BMI 31.47 kg/m?? OB Status IUD Smoking Status Never BSA 1.72 m?? Physical Exam Constitutional: Appearance: Normal appearance. HENT: Head: Atraumatic. Right Ear: External ear normal. Left Ear: External ear normal. Nose: No congestion. Mouth/Throat: Mouth: Mucous membranes are moist. Pharynx: Oropharynx is clear. No oropharyngeal exudate or posterior oropharyngeal erythema. Cardiovascular: Rate and Rhythm: Regular rhythm. Tachycardia present. Pulmonary: Effort: Pulmonary effort is normal. Breath sounds: Normal breath sounds. Neurological: Mental Status: She is alert and oriented to person, place, and time. Psychiatric: Mood and Affect: Mood normal. Behavior: Behavior normal. Problem List Items Addressed This Visit Hematology and Neoplasia Iron deficiency anemia - Primary Overview Lab Results Component Value Date HGB 11.6 (L) 02/24/2025 HGB 11.0 (L) 04/17/2021 HCT 35.5 (L) 02/24/2025 Following with [facility] (previously at [facility]) Unable to tolerate PO iron supplements September 2024: received IV venofer 200mg weekly x 4 Current Assessment & Plan Venous hemoglobin resulted at 11.6, last 12.4 approx 1 months ago. Iron studies pending. Suspected cause: menorrhagia s/p IUD removal. Palpitations likely 2/2 hemoglobin decrease Plan: start provera 10mg TID x 5 days. Reviewed med safety and SE. Follow up with [facility] as scheduled on 03/04/25 ED/urgent care precautions reviewed Relevant Medications medroxyPROGESTERone (Provera) 10 MG tablet Other Relevant Orders CBC auto differential (Completed) Type and screen (Completed) Ferritin Iron And Total Iron Binding Capacity (Completed) Other Visit Diagnoses Sore throat Rapid strep negative, symptomatic mangement encouraged. Return precautions reviewed. Relevant Orders POCT rapid strep A manually resulted (Completed) Excessive bleeding in premenopausal period See D50.9 Relevant Medications medroxyPROGESTERone (Provera) 10 MG tablet Follow up: per recall, sooner as needed. [1] Patient Active Problem List Diagnosis Fibromyalgia Healthcare [...] of musculoskeletal disorder Nephrolithiasis Erythromelalgia (CMS/HCC) Polyarthralgia Fibroadenoma of right breast Pelvic joint pain, right Pelvic pain Appendix disease documented in this encounter Miscellaneous Notes * Assessment & Plan Note - NIC Rudd - 02/24/2025 3:42 PM EDTAssociated Problem(s): Iron deficiency anemia Venous hemoglobin resulted at 11.6, last 12.4 approx 1 months ago. Iron studies pending. Suspected cause: menorrhagia s/p IUD removal Plan: start provera 10mg TID x 5 days. Reviewed med safety and SE. Follow up with [facility] as scheduled on 03/04/25 ED/urgent care precautions reviewed documented in this encounter Plan of Treatment Upcoming Encounters Date Type Department Care Team (Late st Contact Info) Description 03/26/2025 2:00 PM EDT Clinical Support [facility] DIABETES/NUTRITION [address] [place] [address] Tamanna Mcintyre, RD [address] [place] [address] documented as of this encounter Procedures Procedure Name Priority Date/Time Associated Diagnosis Comments CBC WITH AUTO DIFFERENTIAL Routine 02/24/2025 2:06 PM EDT Iron deficiency anemia, unspecified iron deficiency anemia type IRON AND TOTAL IRON BINDING CAPACITY Routine 02/24/2025 2:06 PM EDT Iron deficiency anemia, unspecified iron deficiency anemia type FERRITIN Routine 02/24/2025 2:06 PM EDT Iron deficiency anemia, unspecified iron deficiency anemia type TYPE AND SCREEN Routine 02/24/2025 2:05 PM EDT Iron deficiency anemia, unspecified iron deficiency anemia type POCT RAPID STREP A Routine 02/24/2025 12 :20 PM EDT Sore throat documented in this encounter Results * Iron And Total Iron Binding Capacity (02/24/2025 2:06 PM EDT) Pathologist [facility] Iron 70 30 - 160 mcg/dL [facility] Total Iron Binding Capacity 277 228 - 428 mcg/dL [facility] Percent Iron Saturation 25 15 - 50 % [facility] Unsaturated Iron Binding 207 ug/dL [facility] Blood Venous blood specimen / Unknown 02/24/2025 2:06 PM EDT 02/24/2025 2:06 PM EDT Petra Wiley IT DESKTOP SUPPORT SPECIALIST LAB BLOOD ORDERABLES Final Res ult Performing Organization Address [facility]/ZIP Co de Phone Number [facility] [address] [place] [phone] * Ferritin (02/24/2025 2:06 PM EDT) Pathologist [facility] Ferritin 49 10 - 122 ng/mL [facility] Blood Venous blood specimen / Unknown 02/24/2025 2:06 PM EDT 02/24/2025 2:06 PM EDT Petra Phalkiersten IT DESKTOP SUPPORT SPECIALIST LAB BLOOD ORDERABLES Final Res ult Performing Organization Address City/[facility]/ZIP Co de Phone Number [facility] [address] [place] [phone] * (ABNORMAL) CBC auto differential (02/24/2025 2:06 PM EDT) Pathologist [facility] White Blood Count 8.8 4.8 - 10.8 X10*3/uL [facility] Red Blood Count 4.27 4.20 - 5.50 X10*6/uL [facility] Hemoglobin 11.6(L) 12.0 - 16.0 g/dl [facility] Hematocrit 35.5(L) 37.0 - 47.0 % [facility] Mean Corpuscular Volume 83.1 80.0 - 98.0 fL [facility] Mean Corpuscular Hemoglobin 27.2 27.0 - 33.0 pg [facility] Mean Corpuscular HGB Conc 32.7 31.0 - 35.0 g/dl [facility] Red Cell Distribution Width 14.2 11.0 - 16.0 % [facility] Platelet Count 252 160 - 400 X10*3/uL [facility] Mean Platelet Volume 11.7 9.4 - 12.3 fL [facility] Neutrophils Percent Auto 67.8 45 - 73 % [facility] Imm Gran Pct Auto 0.3 0.0 - 0.4 % [facility] Lymphocytes Percent Auto 25.1 20 - 40 % [facility] Monocytes Percent Auto 5.0 2 - 11 % [facility] Eosinophils Percent Auto 1.3 0 - 4 % [facility] Basophils Percent Auto 0.5 0 - 2 % [facility] NRBC Pct Auto 0.0 0.0 - 0.2 /100WBC [facility] Neutrophils Absolute Auto 6.0 2.0 - 8.3 x10*3/uL [facility] Imm Gran Abs Auto 0.03 0.00 - 0.03 X10*3/uL [facility] Lymphocytes Absolute Auto 2.2 1.2 - 4.9 X10*3/uL [facility] Monocytes Absolute Auto 0.4 0.1 - 1.2 X10*3/uL [facility] Eosinophils Absolute Auto 0.1 0.0 - 0.4 X10*3/uL [facility] Basophils Absolute Auto 0.0 0.0 - 0.2 X10*3/uL [facility] NRBC Abs Auto 0.000 0.0 - 0.012 X10*3/uL [facility] Blood Venous blood specimen / Unknown 02/24/2025 2:06 PM EDT 02/24/2025 2:06 PM EDT Petra Wiley [facility] LAB BLOOD ORDERABLES Final Res ult Performing Organization Address City/[facility]/ZIP Co de Phone Number [facility] [address] [place] [phone] * Type and screen (02/24/2025 2:05 PM EDT) Blood Type OP [facility] Antibody Screen NEGATIVE [facility] Blood Venous blood specimen / Unknown 02/24/2025 2:05 PM EDT 02/24/2025 2:55 PM EDT Petra Wiley [facility] LAB BLOOD BANK TEST ORDERABLES Final Result Performing Organization Address [facility] Co de Phone Number [facility] [address] [place] [phone] * POCT rapid strep A manually resulted (02/24/2025 12:20 PM EDT) Rapid Strep A Screen Negative Negative, None Detected QC Media Lot # [id number] Lot# Expiration Date [id number] Swab 02/24/2025 12:2 0 PM EDT Petra Wiley IT DESKTOP SUPPORT SPECIALIST POINT OF CARE TEST ENTER/EDIT ORDERABLES Final Result documented in this encounter Visit Diagnoses Diagnosis Iron deficiency anemia, unspecified iron deficiency anemia type- Primary Sore throat Acute pharyngitis Excessive bleeding in premenopausal period documented in this encounter Additional Health Concerns Assessment Noted Time PHQ-9 Depression Total Score: 8 11/26/19 25 5:52 PM EDT documented as of this encounter Care Teams Bunch Trimmer Mold Relationship Specialty Start Date End Date Petra Wiley FNP [address] [place] [address] PCP - General Family Medicine 03/17/24 Willard Waters [address] [place] [address] Rheumatology 05/17/24 [address]aya K[address]ler [address]rd [place] [address] Gastroenterology 05/17/24 Juan Sandra MD [address] [place] [address] Hematology and Oncology 05/17/24 Brigid Guy NP [address] [place] [address] Urology 05/17/24 Vicente Mooney MD [address] [place] [address] [address] [place] [address] Obstetrics and Gynecology 05/17/24 Beth Rai MD [address] [place] [address] [place] [address] Neurology 05/17/24 Michell Espinoza [address]rd [place] [address] Cardiology 05/17/24 Shelia Zheng Orthopedic Physician AssistantYarn Conditioner 09/26/23 documented as of this encounter
[2025-02-24 14:08] LABS: MANUAL DIFF FLAG NO
[2025-02-24 14:56] LABS: Hematocrit 35.5 % (37.0-47.0); Hemoglobin 11.6 g/dl (12.0-16.0); Imm Gran Abs Auto 0.03 X10*3/uL (0.00-0.03); Imm Gran Pct Auto 0.3 % (0.0-0.4); Lymphocytes Absolute Auto 2.2 X10*3/uL (1.2-4.9); Mean Corpuscular HGB Conc 32.7 g/dl (31.0-35.0); Mean Corpuscular Hemoglobin 27.2 pg (27.0-33.0); Mean Corpuscular Volume 83.1 fL (80.0-98.0); NRBC Abs Auto 0.000 X10*3/uL (0.0-0.012); NRBC Pct Auto 0.0 /100WBC (0.0-0.2); Platelet Count 252 X10*3/uL (160-400); Red Blood Count 4.27 X10*6/uL (4.20-5.50); White Blood Count 8.8 X10*3/uL (4.8-10.8)
[2025-02-24 15:44] LABS: Iron 70 mcg/dL (30-160); Percent Iron Saturation 25 % (15-50); Total Iron Binding Capacity 277 mcg/dL (228-428); Unsaturated Iron Binding 207 ug/dL
[2025-02-24 16:03] LABS: Ferritin 49 ng/mL (10-122)
--- OUTSIDE RECORDS SUMMARY | 2025-02-24 16:22 | XMS_ITS | Encounter Summary ---
Author Organization [facility] Address [address] [facility] 7t [place] [address] Care Team Providers Care Hand Bender Name Role Phone Petra Wiley PARIMUTUEL CLERK Primary Care Provider Willard Waters Unavailable [phone] September Unavailable Juan Sandra MD Unavailable [phone] Brigid Guy NP Unavailable Vicente Mooney MD Unavailable Beth Rai MD Unavailable Michell Espinoza Unavailable Reason for Visit * Reason Onset Date Comments Referral 12/02/2024 Encounter Details Date Type Department Care Team ([facility] st Contact Info) Description 12/02/2024 Telephone [facility] MED & PEDS [address] [place], [place] [phone] Petra Wiley FNP [address] [place], [place] [phone] Referral Social History Tobacco Use Types Packs/Day [...] has one scheduled for today 12/02 at [place] [facility] at [facility] [address]. [address], [place] [address] , pt iswondering if both hands can be checked at the same time. PT is requesting a call back. Contact pt at [phone] (chinese) documented in this encounter Plan of Treatment Upcoming Encounters Date Type Department Care Team ([facility] st Contact Info) Description 03/26/2025 2:00 PM EDT Clinical Support [facility] DIABETES/NUTRITION [address] [place] [address] Tamanna Mcintyre, RD [address] [place] [address] documented as of this encounter Visit Diagnoses Not on filedocumented in this encounter Additional Health Concerns Assessment Noted Time PHQ-9 Depression Total Score: 8 11/26/19 25 5:52 PM EDT documented as of this encounter Care Teams Hand Bender Relationship Specialty Start Date End Date Petra Wiley FNP [address] [place] [address] PCP - General Family Medicine 03/17/24 Willard Waters [address] [place] [address] Rheumatology 05/17/24 Sumaya Kessler [address] [address] Gastroenterology 05/17/24 Juan Sandra MD [address] [place] [address] Hematology and Oncology 05/17/24 Brigid Guy NP [address] [facility] [address] [place] [address] Urology 05/17/24 Vicente Mooney MD [address] [place] [address] [address] [place] [address] Obstetrics and Gynecology 05/17/24 Beth Rai MD [address] [place] [address] [address] [place] [address] Neurology 05/17/24 Michell Espinoza [address] [facility] [address] [place] [address] Cardiology 05/17/24 [facility] ManagerSupervisor Sunglasses 09/26/23 documented as of this encounter
--- OUTSIDE RECORDS SUMMARY | 2025-02-24 16:22 | XMS_ITS | Encounter Summary ---
Author Organization [facility] Address [address] [place] [address] Care Team Providers Care Commercial Center Manager Name Role Phone Petra Wiley Primary Care Provider [phone] Encounter Details Date Type Department Care Team (Late st Contact Info) Description 12/31/2024 Results Follow-Up [facility] Rheumatology Clinic [address] [place], [place] [phone] Fly Worker: Mary Senior LPN Social History Tobacco Use [...] Description 03/04/2025 3:00 PM EDT Office Visit [facility] Women's Care [address] [place] [address] Fly Worker: Kate Castaneda [facility] [place] [address] [place] [address] 04/19/2025 1:20 PM EST Lab [facility] ACC Draw Site Fifth Floor [address] [place] [address] 04/19/2025 2:20 PM EST Follow-Up [facility] Building BMT Clinic [address] [place] [address] Shavon Roberson NP [address] [place], [place] [phone] documented as of this encounter Visit Diagnoses Not on filedocumented in this encounter Care Teams Commercial Center Manager Relationship Specialty Start Date End Date Petra Wiley [address] [place] [address] PCP - General Family Medicine 03/19/24 documented as of this encounter
--- OUTSIDE RECORDS SUMMARY | 2025-02-24 16:22 | XMS_ITS | Encounter Summary ---
Author Organization [employer] Address [address] [facility] 7t [place] [address] Care Team Providers Care Metal Burnisher Name Role Phone Jennie Murray MD Primary Care Provider Petra Wiley Primary Care Provider [phone] Willard Waters Unavailable [phone] KesslerSeptember Unavailable Juan Sandra MD Unavailable [phone] Brigid Guy NP Unavailable Vicente Mooney MD Unavailable Beth Rai MD Unavailable Michell Espinoza Unavailable Encounter Details Date Type Department Care Team (Latest Contact Info) Description 09/03/2018 Abstract [facility] CONVERSIONS Dental, Provider, DDS Social [...] Description 03/26/2025 2:00 PM EDT Clinical Support [facility] DIABETES/NUTRITION [address] [place], [place] [phone] Tamanna Mcintyre RD [address] [place], [place] [phone] documented as of this encounter Visit Diagnoses Not on filedocumented in this encounter Care Teams Metal Burnisher Relationship Specialty Start Date End Date Jennie Murray MD [address] [place] [address] PCP - General Family Medicine 06/23/13 03/16/24 Petra Wiley FNP [address] [place] [address] PCP - General Family Medicine 03/17/24 Willard Waters [address] [place] [address] Rheumatology 05/17/24KesslerSeptember 11 [facility] [address]rd [place] [address] Gastroenterology 05/17/24 Juan Sandra MD [address] [place] [address] Hematology and Oncology 05/17/24 Brigid Guy NP [address] [place] [address] Urology 05/17/24 Vicente Mooney MD [address] [place] [address] [address] [place] [address] Obstetrics and Gynecology 05/17/24 Beth Rai MD [address] [place] [address] [address] [place] [address] Neurology 05/17/24 Michell Espinoza 11 [facility] 3rd [place] [address] Cardiology 05/17/24 [facility] Therapy DirectorLawn And Garden Technician 09/26/23 documented as of this encounter
--- OUTSIDE RECORDS SUMMARY | 2025-02-24 16:22 | XMS_ITS | Encounter Summary ---
Author Organization [employer] Address 75 [facility] 7t [place] [address] Care Team Providers Care Motor Vehicle License Clerk Name Role Phone Jennie [place] MD Primary Care Provider [phone] Petra Wiley Primary Care Provider Willard Waters Unavailable [phone] KesslerSeptember Unavailable Juan Sandra MD Unavailable [phone] Brigid Guy NP Unavailable Vicente Mooney MD Unavailable Beth Rai MD Unavailable Michell Espinoza Unavailable Encounter Details Date Type Department Care Team (Latest Contact Info) Description 09/12/2020 Abstract [facility] CONVERSIONS Dental, Provider, DDS Social History [...] Care Team ( st Contact Info) Description 03/26/2025 2:00 PM EDT Clinical Support [facility] DIABETES/NUTRITION [address] [place], [place] [phone] Tamanna Mcintyre [address] [place] [address] documented as of this encounter Visit Diagnoses Not on filedocumented in this encounter Care Teams Motor Vehicle License Clerk Relationship Specialty Start Date End Date Jennie [place] MD 230 [place] [address] PCP - General Family Medicine 06/23/13 03/16/24 Petra Wiley FNP [address] [place] [address] PCP - General Family Medicine 03/17/24 Willard Waters [address] [place] [address] Rheumatology 05/17/24KesslerSeptember 11 [facility] 3rd [place] [address] Gastroenterology 05/17/24 Juan Sandra MD [address] [place] [address] Hematology and Oncology 05/17/24 Brigid Guy NP [address] [place] [address] Urology 05/17/24 Vicente Mooney MD [address] [place] [address] [address] [place] [address] Obstetrics and Gynecology 05/17/24 Beth Rai MD [address] [place] [address] 140 [place] [address] Neurology 05/17/24 Michell Espinoza [address] 3rd [place] [address] Cardiology 05/17/24 [facility] Consulting Utility ForesterCarry Out Clerk 09/26/23 documented as of this encounter
--- OUTSIDE RECORDS SUMMARY | 2025-02-24 16:22 | XMS_ITS | Encounter Summary ---
Author Organization [employer] Address [address] [facility] [address] 7t [place] [address] Care Team Providers Care Partnership Marketing Manager Name Role Phone Petra Wiley CLAMP JIG ASSEMBLER Primary Care Provider Willard [place] Unavailable [phone] September Unavailable Juan Sandra MD Unavailable [phone] Brigid Guy NP Unavailable Vicente Mooney MD Unavailable Beth Rai MD Unavailable Michell sEpinoza Unavailable Encounter Details Date Type Department Care Team (Latest Contact Info) Description 02/24/2025 Travel Social History Tobacco Use Types Packs/Day [...] AM EDT documented as of this encounter Functional Status * Over the [...] JORDANA-7 Total Score 12 02/24/2025 1:21 PM EMETERIOT Li Henry [place] documented as of this encounter Plan of Treatment Upcoming Encounters Date Type Department Care Team (Late st Contact Info) Description 03/26/2025 2:00 PM EDT Clinical Support [facility] DIABETES/NUTRITION 230 [place] [address] [place] [address] documented as of this encounter Visit Diagnoses Not on filedocumented in this encounter Additional Health Concerns Assessment Noted Time PHQ-9 Depression Total Score: 8 11/26/19 25 5:52 PM EDT documented as of this encounter Care Teams Partnership Marketing Manager Relationship Specialty Start Date End Date Petra Wiley FNP 230 [place] [address] PCP - General Family Medicine 03/17/24 Willard Waters [address] [place] [address] Rheumatology 05/17/[address] [place] [address] 3rd [place] [address] Gastroenterology 05/17/24 Juan Sandra MD [address] [place] [address] Hematology and Oncology 05/17/24 Brigid Guy NP 10 [facility] [address] [place] [address] Urology 05/17/24 Vicente Mooney MD [address] [place] [address] [address] [place] [address] Obstetrics and Gynecology 05/17/24 Beth Rai MD [address] [place] [address] Neurology 05/17/24 Michell Espinoza [address] [place] [address] 3rd [place] [address] Cardiology 05/17/24 Shelia Zheng Financial Advisor TraineeNipple Machine Operator 09/26/23 documented as of this encounter
--- OUTSIDE RECORDS SUMMARY | 2025-02-24 16:22 | XMS_ITS | Encounter Summary ---
Author Organization [employer] Address 75 [facility] 7t [place] [address] Care Team Providers Care Telegraph Installer Name Role Phone Jennie [place] MD Primary Care Provider Petra Wiley Primary Care Provider Willard Waters Unavailable [phone] VictoriaSeptember Unavailable Juan Sandra MD Unavailable [phone] Brigid Guy NP Unavailable Vicente Mooney MD Unavailable Beth Rai MD Unavailable [phone] Michell Espinoza Unavailable Reason for Visit * Reason Onset Date Comments Appointment Request 12/25/2023 Encounter Details Date Type Department Care Team (Late st Contact Info) Description 12/25/2023 Telephone [facility] MEDICINE 230 [place], [place] [phone] Jennie [place] MD [address] [place], [place] [phone] Appointment Request Social History Tobacco Use Types [...] 12/25/2023 1:07 PM EDT Tc from Patrice, acute care nursing assistant with [facility], calling to schedule appt for pt. Pt is awaiting transfer pt appt with Dr. Wiley in which commercial underwriter attempted to schedule but found no availability. Please contact Patrice at [phone]. documented in this encounter Plan of Treatment Upcoming Encounters Date Type Department Care Team (Late st Contact Info) Description 03/26/2025 2:00 PM EDT Clinical Support [facility] DIABETES/NUTRITION 230 [place] [address] [place], [place] [phone] documented as of this encounter Visit Diagnoses Not on filedocumented in this encounter Additional Health Concerns Assessment Noted Time PHQ-9 Depression Total Score: 0 07/04/19 23 3:01 PM EST documented as of this encounter Care Teams Telegraph Installer Relationship Specialty Start Date End Date Jennie [place] MD 230 [place] [address] PCP - General Family Medicine 06/23/13 03/16/24 Petra Wiley FNP 230 [place] [address] PCP - General Family Medicine 03/17/24 Willard Waters [address] [place] [address] Rheumatology 05/17/24KesslerSeptember 11 [facility] 3rd [place] [address] Gastroenterology 05/17/24 Juan Sandra MD [address] [place] [address] Hematology and Oncology 05/17/24 Brigid Guy NP [address] [place] [address] Urology 05/17/24 Vicente Mooney MD [address] [place] [address] [address] [place] [address] Obstetrics and Gynecology 05/17/24 Beth Rai MD [address] [place] [address] 140 [place] [address] Neurology 05/17/24 Michell Espinoza 11 [facility] 3rd [place] [address] Cardiology 05/17/24 [facility] Top ScrewInternational Representative 09/26/23 documented as of this encounter
--- OUTSIDE RECORDS SUMMARY | 2025-02-24 16:22 | XMS_ITS | Encounter Summary ---
Author Organization [employer] Address 75 [facility] 7t [place] [address] Care Team Providers Care Casing Mixer Name Role Phone Petra Wiley Primary Care Provider Willard Waters Unavailable [phone] September Unavailable Juan Sandra MD Unavailable [phone] Brigid Guy NP Unavailable Vicente Mooney MD Unavailable Beth Rai MD Unavailable Michell Espinoza Unavailable Reason for Visit * Reason Onset Date Comments CHART PREP 02/23/2025 Encounter Details Date Type Department Care Team (Late st Contact Info) Description 02/23/2025 Telephone [facility] MEDICINE 230 [place] [address] Petra Wiley FNP [address] [place], [place] [phone] CHART PREP Social History Tobacco Use Types Packs/Day Years [...] encounter Miscellaneous Notes * Telephone Encounter - Kaela Lezama [place] - 02/23/2025 4:15 PM EDT Chart Prep Labs: not applicable Images: done US Pelvis 02/05/25 Referrals: [facility] 04/01/25 1:15PM, GI 04/21/25 4pm, Antonino 06/14/25 3pm, Cardio 07/09/25 1:30pm, Uro 08/12/25 3pm all [facility]. Vaccines due: Covid, Flu, and HPV Screenings: LMP Overdue care gaps: SBIRT, SDOH, JORDANA-7, Oral health screening, and Disability screen documented in this encounter Plan of Treatment Upcoming Encounters Date Type Department Care Team (Late st Contact Info) Description 03/26/2025 2:00 PM EDT Clinical Support [facility] DIABETES/NUTRITION 230 [place] [address] [place] [address] documented as of this encounter Visit Diagnoses Not on filedocumented in this encounter Additional Health Concerns Assessment Noted Time PHQ-9 Depression Total Score: 8 11/26/19 25 5:52 PM EDT documented as of this encounter Care Teams Casing Mixer Relationship Specialty Start Date End Date Petra Wiley FNP 230 [place] [address] PCP - General Family Medicine 03/17/24 Willard Waters [address] [place] [address] Rheumatology 05/17/24 KesslerSeptember 11 [facility] 3rd [place] [address] Gastroenterology 05/17/24 Juan Sandra MD [address] [place] [address] Hematology and Oncology 05/17/24 Brigid Guy NP [address] [facility] [address] [place] [address] Urology 05/17/24 Vicente Mooney MD [address] [place] [address] [address] [place] [address] Obstetrics and Gynecology 05/17/24 Beth Rai MD [address] [place] [address] 140 [place] [address] Neurology 05/17/24 Michell Espinoza 11 [facility] 3rd [place] [address] Cardiology 05/17/24 Shelia Zheng Backhaul DriverMaintenance Superintendent 09/26/23 documented as of this encounter
--- OUTSIDE RECORDS SUMMARY | 2025-02-24 16:22 | XMS_ITS | Encounter Summary ---
Author Organization [employer] Address 75 [facility] 7t [place] [address] Care Team Providers Care Brazer Helper Induction Name Role Phone Petra Wiley MONUMENT INSTALLER Primary Care Provider Willard [place] Unavailable [phone] September Unavailable Juan Sandra MD Unavailable [phone] Brigid Guy NP Unavailable Vicente Mooney MD Unavailable Beth Rai MD Unavailable Michell Espinoza Unavailable Reason for Visit * Reason Comments Med Refill Encounter Details Date Type Department Care Team ([facility] st Contact Info) Description 12/03/2024 Refill [facility] CHC MED & PEDS [address] [place], [place] [phone] Petra Wiley FNP 505 [place], [place] [phone] Fibromyalgia Social History Tobacco Use Types Packs/Day [...] Description 03/26/2025 2:00 PM EDT Clinical Support [facility] DIABETES/NUTRITION 230 [place] [address] 230 [place] [address] documented as of this encounter Visit Diagnoses Diagnosis Fibromyalgia Unspecified myalgia and myositis documented in this encounter Additional Health Concerns Assessment Noted Time PHQ-9 Depression Total Score: 8 11/26/19 25 5:52 PM EDT documented as of this encounter Care Teams Brazer Helper Induction Relationship Specialty Start Date End Date Petra Wiley FNP 230 [place] [address] PCP - General Family Medicine 03/17/24 Willard Waters 575 [facility] 402 [place], [place] Rheumatology 05/17/[address]aya [address]essler [address] 3rd [place] [address] Gastroenterology 05/17/24 Juan Sandra MD 575 [place] [address] Hematology and Oncology 05/17/24 Brigid Guy NP [address] [place] [address] Urology 05/17/24 Vicente Mooney MD [address] [place] [address] [address] [place] [address] Obstetrics and Gynecology 05/17/24 Beth Rai MD [address] [place] [address] 140 [place] [address] Neurology 05/17/24 Michell Espinoza 11 [facility] 3rd [place] [address] Cardiology 05/17/24 Shelia Zheng Obstetrics Nurse PractitionerCuff Slitter 09/26/23 documented as of this encounter
--- OUTSIDE RECORDS SUMMARY | 2025-02-24 16:22 | XMS_ITS | Encounter Summary ---
Author Organization [facility] Address [address] [place] [address] Care Team Providers Care Manager Legal Name Role Phone Petra Wiley Primary Care Provider Encounter Details Date Type Department Care Team (Latest Contact Info) Description 06/26/2024 Transcribe Orders [facility] Physician Referral Services [address] [place] [address] Isaiaskiersten Petra 230 [place], [place] [phone] Subcutaneous mass of right upper extremity (Primary [...] Description 03/04/2025 3:00 PM EDT Office Visit [facility] [address] [place] [address] Cook Jelly: Shasha Campos PA [address] [place] [address] 04/19/2025 1:20 PM EST Lab [facility] ACC Draw Site Fifth Floor 55 [place] [address] 04/19/2025 2:20 PM EST Follow-Up [facility] [address] [place] [address] Shavon Roberson NP 55 [place], [place] [phone] documented as of this encounter Visit Diagnoses Diagnosis Subcutaneous mass of right upper extremity- Primary Subcutaneous mass of abdominal wall documented in this encounter Care Teams Manager Legal Relationship Specialty Start Date End Date Petra Wiley [address] [place] [address] PCP - General Family Medicine 03/19/24 documented as of this encounter
--- OUTSIDE RECORDS SUMMARY | 2025-02-24 16:22 | XMS_ITS | Encounter Summary ---
Author Organization [employer] Address [address] [facility] [address] 7t [place] [address] Care Team Providers Care Snuff Box Finisher Name Role Phone Petra Wiley DISTRIBUTOR SALES MANAGER Primary Care Provider [phone] Willard [place] Unavailable [phone] September Unavailable Juan Sandra MD Unavailable [phone] Brigid Guy NP Unavailable Vicente Mooney MD Unavailable Beth Rai MD Unavailable Michell Espinoza Unavailable Encounter Details Date Type Department Care Team (Latest Contact Info) Description 02/23/2025 Travel Social History Tobacco Use Types Packs/Day [...] Description 03/26/2025 2:00 PM EDT Clinical Support [facility] DIABETES/NUTRITION 230 [place] [address] [place] [address] documented as of this encounter Visit Diagnoses Not on filedocumented in this encounter Additional Health Concerns Assessment Noted Time PHQ-9 Depression Total Score: 8 11/26/19 25 5:52 PM EDT documented as of this encounter Care Teams Snuff Box Finisher Relationship Specialty Start Date End Date Petra Wiley FNP 230 [place] [address] PCP - General Family Medicine 03/17/24 Willard Waters [address] Rheumatology 05/17/[address] 3rd [place] [address] Gastroenterology 05/17/24 Juan Sandra MD 575 [place] [address] Hematology and Oncology 05/17/24 Brigid Guy NP [address] [place] [address] Urology 05/17/24 Vicente Mooney MD [address] [place] [address] [address] [place] [address] Obstetrics and Gynecology 05/17/24 Beth Rai MD [address] [place] [address] [place] [address] Neurology 05/17/24 Michell Espinoza 11 [facility] 3rd [place] [address] Cardiology 05/17/24 Shelia Zheng Seam FinisherMixer Lever Operator 09/26/23 documented as of this encounter
--- OUTSIDE RECORDS SUMMARY | 2025-02-24 16:23 | XMS_ITS | Encounter Summary ---
Author Organization [employer] Address 75 [facility] 7t [place] [address] Care Team Providers Care Outside Property Agent Name Role Phone Petra Wiley Primary Care Provider Willard Waters Unavailable [phone] September Unavailable Juan Sandra MD Unavailable [phone] Brigid Guy NP Unavailable Vicente Mooney MD Unavailable Beth Rai MD Unavailable Michell Espinoza Unavailable Reason for Visit * Reason Onset Date Comments Appointment Request 01/08/2025 Encounter Details Date Type Department Care Team (Late st Contact Info) Description 01/08/2025 Telephone [facility] MEDICINE [address] [place] [address] Petra Wiley FNP 505 [place], [place] [phone] Appointment Request Social History Tobacco Use Types [...] and unable to attend. Contact pt at [phone] documented in this encounter Plan of Treatment Upcoming Encounters Date Type Department Care Team (Late st Contact Info) Description 03/26/2025 2:00 PM EDT Clinical Support [facility] DIABETES/NUTRITION 230 [place], [place] [phone] Tamanna Mcintyre RD [address] [place] [address] documented as of this encounter Visit Diagnoses Not on filedocumented in this encounter Additional Health Concerns Assessment Noted Time PHQ-9 Depression Total Score: 8 11/26/19 25 5:52 PM EDT documented as of this encounter Care Teams Outside Property Agent Relationship Specialty Start Date End Date Petra Wiley FNP [address] [place] [address] PCP - General Family Medicine 03/17/24 Willard Waters [address] Rheumatology 05/17/24KesslerSeptember 11 [facility] 3rd [place] [address] Gastroenterology 05/17/24 Juan Sandra MD [address] [place] [address] Hematology and Oncology 05/17/24 Brigid Guy NP [address] [facility] [address] [place] [address] Urology 05/17/24 Vicente Mooney MD [address] [place] [address] [address] [place] [address] Obstetrics and Gynecology 05/17/24 Beth Rai MD [address] [place] [address] 140 [place] [address] Neurology 05/17/24 Michell Espinoza 11 [facility] 3rd [place] [address] Cardiology 05/17/24 Shelia Zheng Bioinformatics Team MemberRadiation Physicist 09/26/23 documented as of this encounter
--- OUTSIDE RECORDS SUMMARY | 2025-02-24 16:23 | XMS_ITS | Encounter Summary ---
Author Organization [employer] Address 75 [facility] 7t [place] [address] Care Team Providers Care Electric Organ Assembler And Checker Name Role Phone Jennie [place] MD Primary Care Provider [phone] Petra Wiley Primary Care Provider Willard Waters Unavailable [phone] Victoria Sumaya Unavailable Juan Sandra MD Unavailable [phone] Brigid Guy NP Unavailable Vicente Mooney MD Unavailable Beth Rai MD Unavailable Michell Espinoza Unavailable Reason for Visit * Reason Onset Date Comments medication 09/19/2022 Encounter Details Date Type Department Care Team (Late st Contact Info) Description 09/19/2022 Telephone [facility] D[facility] [address] [place], [place] [phone] Venkat Barreto DDS 230 [place], [place] [phone] medication Social History Tobacco Use Types Packs/Day [...] EDT Script was sent for Augementin to [facility] [place]. Patient went in to poultry picking machine tender script and they stated there was nothing there. Contacted [facility] and they stated that nationwide there was a shut down on their system for about 3 hours so it doesn't look like they received it. Can it be resent for patient? documented in this encounter Plan of Treatment Upcoming Encounters Date Type Department Care Team (Late st Contact Info) Description 03/26/2025 2:00 PM EDT Clinical Support [facility] DIABETES/NUTRITION 230 [place] [address] Tmaanna Mcintyre, ANGELINA [address] [place] [address] documented as of this encounter Visit Diagnoses Not on filedocumented in this encounter Additional Health Concerns Assessment Noted Time PHQ-9 Depression Total Score: 0 07/04/19 23 3:01 PM EST documented as of this encounter Care Teams Electric Organ Assembler And Checker Relationship Specialty Start Date End Date Jennie [place] MD [address] [place] [address] PCP - General Family Medicine 06/23/13 03/16/24 Petra Wiley FNP 230 [place] [address] PCP - General Family Medicine 03/17/24 Willard Waters 575 [facility] 402 [place], [place] Rheumatology 05/17/24 Sumaya Kessler [address] 3rd [place] [address] Gastroenterology 05/17/24 Juan Sandra MD 575 [place] [address] Hematology and Oncology 05/17/24 Brigid Guy NP [address] [place] [address] Urology 05/17/24 Vicente Mooney MD [address] [place] [address] Obstetrics and Gynecology 05/17/24 Beth Rai MD 15 [facility] 140 [place] [address] Neurology 05/17/24 Michell Espinoza [address] 3rd [place] [address] Cardiology 05/17/24 Shelia Zheng Washtub Worker HelperCustomer Service Security Officer 09/26/23 documented as of this encounter
--- OUTSIDE RECORDS SUMMARY | 2025-02-24 16:23 | XMS_ITS | Encounter Summary ---
Author Organization [employer] Address 75 [facility] 7t [place] [address] Care Team Providers Care Review Scheduling Coordinator Name Role Phone Jennie [place] MD Primary Care Provider [phone] Petra Wiley Primary Care Provider [phone] Willard Waters Unavailable [phone] KesslerSeptember Unavailable Juan Sandra MD Unavailable [phone] Brigid Guy NP Unavailable Vicente Mooney MD Unavailable Beth Rai MD Unavailable Michell Espinoza Unavailable Encounter Details Date Type Department Care Team (Late st Contact Info) Description 05/18/2022 Orders Only [facility] MEDICINE 230 [place] [address] Jennie [place] MD 505 [place], [place] [phone] Acute foot pain, unspecified laterality (Primary Dx) [...] Description 03/26/2025 2:00 PM EDT Clinical Support [facility] DIABETES/NUTRITION 230 [place] [address] [place] [address] documented as of this encounter Visit Diagnoses Diagnosis Acute foot pain, unspecified laterality- Primary documented in this encounter Care Teams Review Scheduling Coordinator Relationship Specialty Start Date End Date Jennie [place] MD 230 [place] [address] PCP - General Family Medicine 06/23/13 03/16/24 Petra Wiley FNP 230 [place] [address] PCP - General Family Medicine 03/17/24 Willard Waters [address] [place] [address] Rheumatology 05/17/24September [address] 3rd [place] [address] Gastroenterology 05/17/24 Juan Sandra MD [address] [place] [address] Hematology and Oncology 05/17/24 Brigid Guy NP [address] [place] [address] Urology 05/17/24 Vicente Mooney MD [address] [place] [address] [address] [place] [address] Obstetrics and Gynecology 05/17/24 Beth Rai MD [address] [place] [address] 140 [place] [address] Neurology 05/17/24 Michell Espinoza [address] [facility] [address] 3rd [place] [address] Cardiology 05/17/24 Shelia Zheng Process MechanicTraveling Secretary 09/26/23 documented as of this encounter
--- OUTSIDE RECORDS SUMMARY | 2025-02-24 16:23 | XMS_ITS | Encounter Summary ---
Author Organization [employer] Address [address] [facility] [address] [place] [address] Care Team Providers Care Business Mgr Name Role Phone Petra Wiley SAMPLE TAKER OPERATOR Primary Care Provider [phone] Willard Waters Unavailable [phone] September Unavailable Juan Sandra MD Unavailable [phone] Brigid Guy NP Unavailable Vicente Mooney MD Unavailable Beth Rai MD Unavailable Michell Espinoza Unavailable Encounter Details Date Type Department Care Team (Late st Contact Info) Description 05/20/2024 Orders Only [facility] [address] [place], [place] [id number] Provider, MD Addie Social History Tobacco Use [...] Description 03/26/2025 2:00 PM EDT Clinical Support [facility] [address] [place] [address] [place] [address] documented as of this encounter Procedures Procedure [...] documented as of this encounter Care Teams Business Mgr Relationship Specialty Start Date End Date Petra Wiley FNP [address] [place] [address] PCP - General Family Medicine 03/17/24 Willard Waters [address] Rheumatology 05/17/24 Victoria Sumaya [address]rd [place] [address] Gastroenterology 05/17/24 Juan Sandra MD [address] [place] [address] Hematology and Oncology 05/17/24 Brigid Guy NP [address] [place] [address] Urology 05/17/24 Vicente Mooney MD [address] [place] [address] [address] [place] [address] Obstetrics and Gynecology 05/17/24 Beth Rai MD [address] [place] [address] [place] [address] Neurology 05/17/24 Michell Espinoza 11 [facility] 3rd [place] [address] Cardiology 05/17/24 Shelia Zheng Technical SpecialistTop Hat Body Maker 09/26/23 documented as of this encounter
--- OUTSIDE RECORDS SUMMARY | 2025-02-24 16:23 | XMS_ITS | Encounter Summary ---
Author Organization [employer] Address [address] [facility] 7t [place] [address] Care Team Providers Care Seed Collector Name Role Phone Jennie Murray MD Primary Care Provider [phone] Petra Wiley Primary Care Provider Willard Waters Unavailable [phone] KesslerSeptember Unavailable Juan Sandra MD Unavailable [phone] Brigid Guy NP Unavailable Vicente Mooney MD Unavailable Beth Rai MD Unavailable Michell Espinoza Unavailable Encounter Details Date Type Department Care Team (Late st Contact Info) Description 05/25/2022 Abstract [facility] [address] [place], [place] [id number] Dental, Provider, DDS Social History Tobacco Use [...] Description 03/26/2025 2:00 PM EDT Clinical Support [facility] [address] [place], [place] [phone] Tamanna Mcin[address] [place] [address] documented as of this encounter Procedures Procedure [...] on filedocumented in this encounter Care Teams Seed Collector Relationship Specialty Start Date End Date Jennie Murray MD [address] [place] [address] PCP - General Family Medicine 06/23/13 03/16/24 Petra Wiley FNP [address] [place] [address] PCP - General Family Medicine 03/17/24 Willard Waters 575 [facility] [address] [place], [place] Rheumatology 05/17/24 Victoria Sumaya 11 [facility] 3rd [place] [address] Gastroenterology 05/17/24 Juan Sandra MD [address] [place] [address] Hematology and Oncology 05/17/24 Brigid Guy NP [address] [place] [address] Urology 05/17/24 Vicente Mooney MD [address] [place] [address] [address] [place] [address] Obstetrics and Gynecology 05/17/24 Beth Rai MD [address] [place] [address] [address] [place] [address] Neurology 05/17/24 Michell Espinoza 11 [facility] 3rd [place] [address] Cardiology 05/17/24 Shelia Zheng Cruise DirectorLawnmower Repair Mechanic 09/26/23 documented as of this encounter
--- OUTSIDE RECORDS SUMMARY | 2025-02-24 16:23 | XMS_ITS | Encounter Summary ---
Author Organization [employer] Address [address] [facility] 7t [place] [address] Care Team Providers Care Fixture Fabricator Repairer Name Role Phone Jennie Murray MD Primary Care Provider [phone] Petra Wiley Primary Care Provider [phone] Willard Waters Unavailable [phone] September Unavailable Juan Sandra MD Unavailable [phone] Brigid Guy NP Unavailable Vicente Mooney MD Unavailable Beth Rai MD Unavailable Michell Espinoza Unavailable Encounter Details Date Type Department Care Team (Late st Contact Info) Description 07/26/2022 Orders Only [facility] [address] [place] [address] Nelson Medrano MD [address] [place] [phone] Chronic idiopathic constipation (Primary Dx) Social History [...] Description 03/26/2025 2:00 PM EDT Clinical Support [facility] [address] [place] [address] [place] [address] documented as of this encounter Visit Diagnoses Diagnosis Chronic idiopathic constipation- Primary Unspecified constipation documented in this encounter Additional Health Concerns Assessment Noted Time PHQ-9 Depression Total Score: 0 07/04/19 23 3:01 PM EST documented as of this encounter Care Teams Fixture Fabricator Repairer Relationship Specialty Start Date End Date Jennie Murray MD [address] [place] [address] PCP - General Family Medicine 06/23/13 03/16/24 Petra Wiley FNP [address] [place] [address] PCP - General Family Medicine 03/17/24 Willard Waters [address] [place] [address] Rheumatology 05/17/24September [address] 3rd [place] [address] Gastroenterology 05/17/24 Juan Sandra MD [address] [place] [address] Hematology and Oncology 05/17/24 Brigid Guy NP [address] [place] [address] Urology 05/17/24 Vicente Mooney MD [address] [place] [address] [address] [place] [address] Obstetrics and Gynecology 05/17/24 Beth Rai MD [address] [place] [address] [address] R[address] [place] [address] Neurology 05/17/24 Michell Espinoza [address] [facility] [address] 3rd [place] [address] Cardiology 05/17/24 Shelia Zheng Underwriting ConsultantRound Corner Cutter Operator 09/26/23 documented as of this encounter
--- OUTSIDE RECORDS SUMMARY | 2025-02-24 16:23 | XMS_ITS | Clinical Summary ---
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 Name Role Phone Petra Wiley CONFIDENTIAL INVESTIGATOR Primary Care Provider [phone] Willard Waters Unavailable [phone] 2 September Unavailable Juan Sandra MD Unavailable [phone] Brigid Guy NP Unavailable Vicente Mooney MD Unavailable Beth Rai MD Unavailable Michell Esipnoza Unavailable Allergies Active Allergy Reactions Criticality Noted [...] LOS D AL ACOSTARSE 08/07/19 22 Active Creon [id number] units capsule delayed-release particles capsule TOME ADRY [...] DAYS FOR HEART PALPITATION 11/22/19 24 Active butalbital-acetam inophen-caffeine 50-325-40 MG tablet TOME ADRY TABLETA CADA OCHO HORAS CUANDO SEA NECESARIO FOR 30 DAYS 08/07/19 24 Active Banophen 25 MG capsule PLEASE SEE ATTACHED FOR DETAILED DIRECTIONS 12/06/19 24 Active fexofenadine (Gretchen) 180 MG tabletIndications :Seasonal allergies Take 1 tablet (180 mg) by mouth Once per day. 90 tablet 3 03/17/20 24 025 Active Azelastine HCl 137 MCG/SPRAY solutionIndicatio ns:Seasonal allergies ADMINISTER 1 SPRAY EACH NOSTRIL IF NEEDED IN THE MORNING AND AT BEDTIME FOR RHINITIS OR ALLERGIES. 30 mL 3 07/13/19 25 Active pregabalin (Lyrica) 75 MG capsuleIndication s:Fibromyalgia Take 1 capsule (75 mg) by mouth at bedtime. 30 capsule 1 07/29/19 25 026 Active Misc. Devices (Pulse Oximeter) misc Use to check oxygen saturation as needed. Leave on finger for at least 30 seconds before looking at reading. (Normal above 95%) 1 each 07/31/19 25 Active neomycin-polymyxi n-dexAMETHasone 0.1 % ointment Apply small amount to left lower eyelid twice a day for 1 week. 3.5 g 08/04/19 25 Active cholecalciferol (Vitamin D3) 25 MCG (1000 UT) tabletIndications :Vitamin D insufficiency TAKE 1 TABLET (25 MCG) BY MOUTH ONCE PER DAY. 90 tablet 3 09/29/19 25 Active chlorhexidine (Peridex) 0.12 % solution Use 15ml to rinse your mouth twice daily. Spit after rinsing; do not swallow. 473 mL 10/30/19 25 Active Additional Information Patient not taking.Reported on 12/25/2024 albuterol 108 (90 Base) MCG/ACT inhalerIndication s:Mild persistent asthma without complication Inhale 2 puffs Every 4-6 hours as needed for wheezing or shortness of breath. 18 g 11/05/19 25 Active fluticasone furoate (Arnuity Ellipta) 100 MCG/ACT inhalerIndication s:Asthma, unspecified asthma severity, unspecified whether complicated, unspecified whether persistent Inhale 1 puff Once per day. Rinse mouth with water after use to reduce aftertaste and incidence of candidiasis. Do not swallow. 1 each 11/05/19 25 Active meclizine (Antivert) 25 MG tabletIndications :Dizziness Take 0.5-1 tablets (12.5-25 mg) by mouth if needed at bedtime for dizziness. 30 tablet 1 11/05/19 25 026 Active tiZANidine (Zanaflex) 2 MG tabletIndications :Fibromyalgia Take 1-2 tablets (2-4 mg) by mouth every 12 (twelve) hours if needed for muscle spasms. 30 tablet 2 11/05/19 25 026 Active docusate sodium (Colace) 100 MG capsule TOME 1 C PSULA POR V A ORAL DOS VECES AL D A 01/09/20 25 Active nabumetone (Relafen) 750 MG tabletIndications :Fibromyalgia Take 1 tablet (750 mg) by mouth if needed in the morning and at bedtime (pain). 60 tablet 2 01/16/20 25 Active dicyclomine (Bentyl) 10 MG capsule Take 1 capsule (10 mg) by mouth 3 times daily. 90 capsule 3 01/16/20 25 Active Bisacodyl EC 5 MG EC tablet Take 2 tablets (10 mg) by mouth if needed each day for constipation. Do not crush, chew, or split. 30 tablet 01/16/20 25 Active sucralfate (Carafate) 1 g tabletIndications :Gastroesophageal reflux disease without esophagitis Take 1 tablet (1 g) by mouth before breakfast, before lunch, before evening meal, and at bedtime. 120 tablet 2 01/16/20 [address] capsuleIndication s:Gastroparesis,G astroesophageal reflux disease without esophagitis Take 1 capsule (60 mg) by mouth Once per day. Do not crush or chew. 90 capsule 01/16/20 25 025 Active medroxyPROGESTERo ne (Provera) 10 MG tabletIndications :Iron deficiency anemia, unspecified iron deficiency anemia type Take 1 tablet (10 mg) by mouth 3 times daily for 5 days. 15 tablet 02/25/20 25 025 Active Blood Pressure kit 1 each 2 times daily. 1 kit 02/20/20 24 025 Active Problems Problem Noted Date Diagnosed Date [...] Hordeolum externum of left lower eyelid 07/24/19 Palpitations 05/17/2024 Overview (11/04/2024): Followed by [facility] Cards Continues on Propranolol 20mg 1-2x/day (through Cards) Assessment & Plan (11/04/2024 2:38 PM EDT): Consult Jul 2024 - cont current therapy Class 1 obesity with body ma ss index (BMI) of 32.0 to 32.9 in adult 05/17/2024 Assessment & Plan (07/29/2024 4:08 PM EST): - Cont following with resident in diagnostic radiology and healthy lifestyle interventions Assessment & Plan [...] of medullary thyroid cancer or MEN 2. 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 Recommended to decrease soda and [...] bruising easily 03/17/2024 Overview (03/17/2024): Followed by [facility] Heme/Onc - Dr. Sandra Per consult Jan [...] disorder) 03/16/2024 Iron deficiency anemia 03/12/2024 Overview (02/24/2025): Lab Results Component Value Date HGB 11.6 (L) 02/24/2025 HGB 11.0 (L) 04/17/2021 HCT 35.5 (L) 02/24/2025 Following with [facility] Heme/Onc (previously at [facility]) Unable to tolerate PO iron supplements September 2024: received IV venofer 200mg weekly x 4 Assessment & Plan (02/24/2025 3:43 PM EDT): Venous hemoglobin resulted at 11.6, last 12.4 approx 1 months ago. Iron studies pending. Suspected cause: menorrhagia s/p IUD removal Plan: start provera 10mg TID x 5 days. Reviewed med safety and SE. Follow up with [facility] as scheduled on 03/04/25 ED/urgent care precautions reviewed Assessment & Plan (11/04/2024 2:54 PM EDT): [...] - Has consulted with Surgery team in [facility] for consideration of excision. Per their [...] - Has consulted with Surgery team in [facility] for consideration of excision. Per their consult Mar 2024, identified area has normal lobular fat, no discrete lipoma or nodules. Plan: conservative measures Abnormal uterine bleeding 12/27/2023 Overview (07/29/2024): Following with [facility] - Dr. Mooney EMB performed 04/14/24. Path: [...] Overview (05/17/2024): Lab Results Component Value Date [id number] 19.9 (L) 03/18/2024 [id number] 19 (A) 05/08/2023 - Cont Vit D [...] (02/01/2025): Pap: NILM, HPV neg 01/13/25 at [facility] Dental: [facility] Dental Last PE: 11/25/24 Hep B Immune: Mar 2024 Contraception: IUD (Mirena) placed 01/13/25 at [facility] Gastroesophageal reflux disease without esophagi tis 06/03/2023 Overview (06/03/2023): Followed by [facility] YASSINE Kessler APRN Continues famotidine and Dexliant through GI Irritable bowel syndrome with constipation 06/03 Overview (03/17/2024): Followed up [facility] YASSINE Kessler APRN Continues Bentyl TID Continues Bisacodyl 10mg nightly Dysphagia, oropharyngeal phase 06/03/2023 Overview (06/03/2023): Followed by [facility] YASSINE Kessler APRN Gastroparesis 06/03/2023 Overview (03/17/2024): Followed by [facility] GI Continues with the following medication regimen for multiple GI symptoms and conditions: Creon, famotidine, psyllium, dicyclomine, simethicone, and Dexliant Previous medications: carafate NURIA positive 06/03/2023 Overview (07/29/2024): Previous followed by [facility] Rheum - Dr. Waters May 2024: Established with [facility] Rheum - Dr. Street NURIA positive 2020: 1:160, anti dna, nicholas, ESR, CRP all wnl Disorder of sesamoid bone of foot 06/03/2023 Overview (06/03/2023): -Left lateral sesamoid stress fx identified Jul 2022 at [facility] -Plan for immobilization in short walking boot and follow up 6 weeks Assessment & Plan (06/03/2023 10:28 PM EST): Plan to request latest records from [facility] and follow up with PCP to discuss eligibility handicap jacob. Fibromyalgia 08/02/2022 Overview (11/04/2024): -Previously: Lyrica 75mg nightly through [facility] Physiatry/Rheum -Lyrica rx from PCP as of [...] Encounters Date Type Department Care Team Description 02/24/2025 10:45 AM EDT Office Visit [facility] [address] [place] [phone] Petra Wiley FNP Iron deficiency anemia, unspecified iron deficiency anemia type (Primary Dx); Sore throat; Excessive bleeding in premenopausal period 02/24/2025 Travel 02/23/2025 Telephone [facility] [address] [place], [place] [phone] Petra Wiley FNP CHART PREP 02/23/2025 Travel 02/12/2025 Orders Only GENERIC EXTERNAL DATA DEPARTMENT Provider, Generic External Data 02/10/2025 Orders Only GENERIC EXTERNAL DATA DEPARTMENT Provider, Generic External Data 02/05/2025 Orders Only [facility] External Provider, [facility] 02/03/2025 Orders Only [facility] External Provider, [facility] 02/01/2025 3:30 PM EDT Office Visit [facility] [address] [place] [address] Petra Wiley FNP Injury of left knee, subsequent encounter (Primary Dx) 02/01/2025 Travel 02/01/2025 Orders Only [place] [facility] [address] [place] [address] Addie Campbell MD 01/29/2025 Telephone [facility] [address] [place] [address] Petra Wiley FNP chart prep 01/26/2025 1:00 PM EDT Clinical Support [facility] DIABET[facility]/NUTRITION [address] [place] [phone] Tamanna Mcintyre, ANGELINA Class 1 obesity with serious comorbidity and body mass index (BMI) of 32.0 to 32.9 in adult, unspecified obesity type (Primary Dx) 01/26/2025 Travel 01/20/2025 Telephone [facility] [address] [place] [phone] Petra Wiley FNP Appointment Confirmation 01/19/2025 Telephone [place] [facility] [employer] [facility] [address] [place] [phone] Jackie Bazzi MD 01/19/2025 Telephone [facility] [address] [place] [address] Petra Wiley FNP ER Follow-up 01/17/2025 Orders Only [facility] External Provider, [facility] 01/15/2025 11:15 AM EDT Office Visit [facility] [address], [place] [phone] Jackie Bazzi MD Appendix disease (Primary Dx); Fibromyalgia; Gastroesophageal reflux disease without esophagitis; Gastroparesis; Gastroesophageal reflux disease without esophagitis 01/15/2025 Results Follow-Up [facility] [address] [place] [phone] Sylvia Lemons MD Bacterial Vaginosis, Chlamydia/N. Gonorrhoeae RNA, TMA, Urogenitial 01/15/2025 Travel 01/14/2025 Telephone [facility] [address] [place] [phone] Petra Wiley FNP ER Follow-up 01/13/2025 Orders Only GENERIC EXTERNAL DATA DEPARTMENT Provider, Generic External Data 01/08/[address] [address] Petra Wiley FNP Appointment Request 01/08/2025 Orders Only GENERIC EXTERNAL DATA DEPARTMENT Provider, Generic External Data 01/07/2025 Refill [facility] [address] [place] [address] Petra Wiley FNP Fibromyalgia 12/25/2024 2:00 PM EDT Office Visit [facility] [address] [place] [phone] Venkat Barreto DDS 12/21/2024 Orders Only [facility] [address] [place] [phone] Jailene Vitale CNM 12/17/2024 1:00 PM EDT Office Visit [address] [address] Jailene Vitale CNM Labial cyst (Primary Dx) 12/17/2024 Travel 12/16/2024 Orders Only GENERIC EXTERNAL DATA DEPARTMENT Provider, Generic External Data 12/16/[address] [address] Jailene Vitale CNM chart prep 12/11/2024 1:00 PM EDT Clinical Support [facility] [address] [place] [phone] Class 1 obesity with body mass index (BMI) of 32.0 to 32.9 in adult, unspecified obesity type, unspecified whether serious comorbidity present (Primary Dx) 12/11/2024 Travel 12/03/2024 Refill [facility] [address] [place] [address] Petra Wiley FNP Fibromyalgia 12/02/2024 Telephone [facility] [address] [place] [address] Petra Wiley FNP Referral 12/01/2024 3:30 PM EDT Clinical Support [facility] [address] [place] [address] Tamanna Mcintyre, ANGELINA Class 1 obesity with body mass index (BMI) of 32.0 to 32.9 in adult, unspecified obesity type, unspecified whether serious comorbidity present (Primary Dx) 12/01/2024 2:00 PM EDT Office Visit [facility] [address] [place] [address] Venkat Barreto DDS 12/01/2024 Travel 11/30/2024 Results Follow-Up [facility] [address] [place] [address] Petra Wiley FNP XR Hand 3+ Views Left 11/25/2024 9:15 AM EDT Office Visit [facility] [address] [place] [address] Petra Wiley FNP Encounter for routine history and physical examination of adult (Primary Dx); Healthcare maintenance; Left hand pain; Subcutaneous mass of both lower legs; Papule of skin 11/25/2024 Travel from Last 3 Months Immunizations Immunization Administration [...] Pressure 138/76 02/01/2025 3:14 PM EDT Pulse 103 02/24/2025 11:41 AM EDT Temperature 36.1 C (96.9 F) 02/24/2025 11:41 AM EDT Respiratory Rate 17 02/24/2025 11:4 1 AM EDT Oxygen Saturation 99% 02/24/2025 11: 41 AM EDT Inhaled Oxygen Concentration - - Weight 70.7 kg (155 lb 12.8 oz) 025 11:41 AM EDT Height 149.9 cm (4' 11 ) 02/01/2025 3:14 PM EDT Body Mass Index 31.47 02/01/2025 3:14 PM EDT Plan of Treatment Upcoming Encounters Date Type Department Care Team (Late st Contact Info) Description 03/26/2025 2:00 PM EDT Clinical Support [facility] [address] [place] [address] [place] [address] Health Maintenance Due Date Last Done Comments HPV Vaccines (2 - 3-dose series) 03/27/2011 02/27/2011, 02/27/2011 Dental Oral Exam 06/27/2024 12/25/2023, 01/2024, 08/02/2022 Dental Prophylaxis 01/18/2025 07/20/2024, 0 12/25/2023, 06/25/2023, Additional history exists COVID-19 Vaccine ( season) 2025 Influenza Vaccine (#1) 2025 6, 03/22/2015, 03/06/2013 Diagnostic Breast Imaging 03/04/20252024, 09/01/2024, 11/19/2023, Additional history exists Mammogram 03/04/2025 09/01/2024, 08/15, 11/19/2023, Additional history exists Dental X-Ray: Bitewings 07/21/2025 07/20/19, 12/25/2023, 06/24/2023, Additional history exists Dental X-Ray: Full Mouth 08/03/2025 08/02/2022 DTaP/Tdap/Td Vaccines (1 - Tdap) 09/30/2025 10/14/2015 Postponed from 10/15/2015 (Other Medical Reasons) Depression Screening 11/25/2025 11/25/2024, 11/26/19 Family Planning (PISQ) 12/17/2025 12/17/2024 Alcohol/Substance Use Screening 02/24/2026 02/24/2025 Disability Screening 02/24/2026 02/24/2025 SDOH Screening 02/24/2026 02/24/2025 Tobacco Screening 02/24/2026 02/24/2025 Lipid Panel 11/26/2029 11/26/2024, 1007/2023, 10/16/2023, Additional history exists Cervical Cancer Screening 01/13/2030 HPV/Cotest 01/13/2030 01/13/2025 Pap Smear 01/13/2030 01/13/2025, 04/2 07/2024, 11/12/2019, Additional history exists Zoster Vaccines [...] Procedure Name Priority Date/Time Associated Diagnosis Comments IRON AND TOTAL IRON BINDING CAPACITY Routine 02/24/2025 2:06 PM EDT Iron deficiency anemia, unspecified iron deficiency anemia type FERRITIN Routine 02/24/2025 2:06 PM EDT Iron deficiency anemia, unspecified iron deficiency anemia type CBC WITH AUTO DIFFERENTIAL Routine 02/24/2025 2:06 PM EDT Iron deficiency anemia, unspecified iron deficiency anemia type TYPE AND SCREEN Routine 02/24/2025 2:05 PM EDT Iron deficiency anemia, unspecified iron deficiency anemia type POCT RAPID STREP A Routine 02/24/2025 12 :20 PM EDT Sore throat CBC Routine 02/12/2025 4:14 PM EDT CYTOPATH-CELL ENHANCED Routine 5:16 PM EDT US PELVIS TRANSVAGINAL Routine 1:43 PM EDT [...] 11/25/2024 8:34 PM EDT Left hand pain BI MAMMOGRAM DIAGNOSTIC TOMOSYNTHESIS BILATERAL Routine 09/01/2024 [...] to Health Maintenance Results * (ABNORMAL) CBC auto differential (02/24/2025 2:06 PM EDT) Only the most recent of3 resultswithin the time period is included. White Blood Count 8.8 4.8 - 10.8 X10*3/uL [facility] Red Blood Count 4.27 4.20 - 5.50 X10*6/uL [facility] Hemoglobin 11.6(L) 12.0 - 16.0 g/dl [facility] Hematocrit 35.5(L) 37.0 - 47.0 % [facility] Mean Corpuscular Volume 83.1 80.0 - 98.0 fL [facility] Mean Corpuscular Hemoglobin 27.2 27.0 - 33.0 pg [facility] Mean Corpuscular HGB Conc 32.7 31.0 - 35.0 g/dl [facility] Red Cell Distribution Width 14.2 11.0 - 16.0 % [facility] Platelet Count 252 160 - 400 X10*3/uL [facility] Mean Platelet Volume 11.7 9.4 - 12.3 fL [facility] Neutrophils Percent Auto 67.8 45 - 73 % [facility] Imm Gran Pct Auto 0.3 0.0 - 0.4 % [facility] Lymphocytes Percent Auto 25.1 20 - 40 % [facility] Monocytes Percent Auto 5.0 2 - 11 % [facility] Eosinophils Percent Auto 1.3 0 - 4 % [facility] Basophils Percent Auto 0.5 0 - 2 % [facility] NRBC Pct Auto 0.0 0.0 - 0.2 /100WBC [facility] Neutrophils Absolute Auto 6.0 2.0 - 8.3 x10*3/uL [facility] Imm Gran Abs Auto 0.03 0.00 - 0.03 X10*3/uL [facility] Lymphocytes Absolute Auto 2.2 1.2 - 4.9 X10*3/uL [facility] Monocytes Absolute Auto 0.4 0.1 - 1.2 X10*3/uL [facility] Eosinophils Absolute Auto 0.1 0.0 - 0.4 X10*3/uL [facility] Basophils Absolute Auto 0.0 0.0 - 0.2 X10*3/uL [facility] NRBC Abs Auto 0.000 0.0 - 0.012 X10*3/uL [facility] Blood Venous blood specimen / Unknown 02/24/2025 2:06 PM EDT 02/24/2025 2:06 PM EDT us Petra Wiley CONFIDENTIAL INVESTIGATOR LAB BLOOD ORDERABLES Final Res ult [facility] [address] [place] [phone] * Iron And Total Iron Binding Capacity (02/24/2025 2:06 PM EDT) Iron 70 30 - 160 mcg/dL [facility] Total Iron Binding Capacity 277 228 - 428 mcg/dL [facility] Percent Iron Saturation 25 15 - 50 % [facility] Unsaturated Iron Binding 207 ug/dL [facility] Blood Venous blood specimen / Unknown 02/24/2025 2:06 PM EDT 02/24/2025 2:06 PM EDT us Petra Wiley CONFIDENTIAL INVESTIGATOR LAB BLOOD ORDERABLES Final Res ult Performing Organization Address [facility] Co de Phone Number [facility] [address] [place] [phone] * Ferritin (02/24/2025 2:06 PM EDT) Pathologist [facility] Ferritin 49 10 - 122 ng/mL [facility] Blood Venous blood specimen / Unknown 02/24/2025 2:06 PM EDT 02/24/2025 2:06 PM EDT us Petra Wiley CONFIDENTIAL INVESTIGATOR LAB BLOOD ORDERABLES Final Res ult Performing Organization Address [facility] de Phone Number [facility] [address] [place] [phone] * Type and screen (02/24/2025 2:05 PM EDT) [facility] Blood Type OP [facility] Antibody Screen NEGATIVE [facility] Blood Venous blood specimen / Unknown 02/24/2025 2:05 PM EDT 02/24/2025 2:55 PM EDT Result [facility]ly [facility]1983 us Petra Wiley [facility] LAB BLOOD BANK TEST ORDERABLES Final Result Performing Organization Address [facility] de Phone Number [facility] [address] [place] [phone] * POCT rapid strep A manually resulted (02/24/2025 12:20 PM EDT) [facility] Rapid Strep A Screen Negative Negative, None Detected QC Media Lot # [id number] Lot# Expiration Date [id number] Swab 02/24/2025 12:2 0 PM EDT us Petra Wiley CONFIDENTIAL INVESTIGATOR POINT OF CARE TEST ENTER/EDIT ORDERABLES Final Result * (ABNORMAL) CBC (02/12/2025 4:14 PM EDT) White Blood Count 8.7 4.8 - 10.8 X10*3/uL [facility] Red Blood Count 4.64 4.20 - 5.50 X10*6/uL [facility] Hemoglobin 12.4 12.0 - 16.0 g/dl [facility] Hematocrit 38.8 37.0 - 47.0 % [facility] Mean Corpuscular Volume 83.6 80.0 - 98.0 fL [facility] Mean Corpuscular Hemoglobin 26.7(L) 27.0 - 33.0 pg [facility] Mean Corpuscular HGB Conc 32.0 31.0 - 35.0 g/dl [facility] Red Cell Distribution Width 14.2 11.0 - 16.0 % [facility] Platelet Count 255 160 - 400 X10*3/uL [facility] Mean Platelet Volume 11.9 9.4 - 12.3 fL [facility] NRBC Pct Auto 0.0 0.0 - 0.2 /100WBC [facility] NRBC Abs Auto 0.000 0.0 - 0.012 X10*3/uL [facility] 02/12/2025 4:14 PM EDT 02/12/2025 4:14 PM EDT us Generic External Data Provider LAB BLOOD ORDERAB LES Final Result [facility] [address] [place] [phone] * Cytopath-cell enhanced (02/10/2025 5:16 PM EDT) 02/10/2025 5:16 PM EDT 02/11/2025 6:45 AM EDT Narrative [facility] - 02/11/2025 10:10 AM EDT ----- ------- Name: Ambika Mcdermott Age/Sex: 39/F : 1985 Unit#: [id number] Attend Dr: Brigid Guy [facility] Re02/10/25 Status: DEP REF Location: [facility] Disch: ----- ------- SPEC : [id number] RECD: 02/11/25 STATUS: OLIMPIA IQBAL NUM: [id number] BILLY: 02/10/25-1715 [facility] DR: [facility] ENTERED: 02/11/25 SP TYPE: Cytology OTHR [...] developed and their performance characteristics determined by [facility]. They have not been cleared or approved by the U.S. Food and Drug Administration (FDA). However, the FDA has determined that such clearance or approval is not necessary. This laboratory is certified under the Clinical Laboratory Improvement Amendments of 1988 (CLIA) as qualified to perform high complexity clinical laboratory testing. Copies To: Brigid GuyBC [facility] [address] [place] [address] [address] [place] [address] [email or web address] Jennie Murray MD [address] [place] [address] CONTINUED ON NEXT PAGE ----- ------- Name: Lowell AnayaAmbika Age/Sex: 39/F : 1985 Unit#: [id number] Attend Dr: Brigid Guy [facility] Re02/10/25 Status: DEP REF Location: [facility] Disch: ----- ------- SPEC : [id number] RECD: 02/11/25 STATUS: OLIMPIA IQBAL NUM: [id number] BILLY: 02/10/25-6 [facility] DR: Brigid Guy [facility] ENTERED: 02/11/25 SP TYPE: Cytology OTHR DR: Jennie Murray MD ORDERED: Cyto-enhanced ----- ------- Signed (signature on file) Trent Patel MD 02/11/25 1010 ----- ------- END OF REPORT us Generic External Data Provider LAB CYTOLOGY KEN MCDONALD Final Result Performing Organization Address City/State/[facility] Co de Phone Number [facility] [address] [place] [address] [phone] * US Pelvis Transvaginal (02/05/2025 1:43 PM EDT) Only the most recent of2 resultswithin the time period is included. Anatomical Region Laterality Modality Pelvis Ultrasound 02/05/2025 1:43 PM EDT Narrative 02/05/2025 2:29 PM EDT [place] [address] Ultrasound Report Signed Patient: Ambika Mcdermott MR#: [id number] : 1985 Acct:[id number] Age/Sex: 39 / F ADM Date: 02/05/25 Loc: .US Attending Dr: Vicente Mooney MD Ordering Physician: Vicente Mooney MD Date of Service: 02/05/25 Procedure(s): US pelvic and transvaginal Accession Number(s): [id number] cc: Petra Wiley; Vicente Mooney MD EXAMINATION: [...] 02/05/25 1426 DD/ 1343 TD/TT: 02/05/25 1355 Rubber Curer: Procedure Note Donotuseinterpreter, Image - 02/05/[address] [address] Ultrasound Report Signed Patient: Ambika McdermottMR#: [id number] : 1985Acct:[id number] Age/Sex: 39 / FADM Date: 02/05/25 Loc: HO.US Attending Dr: Vicente Mooney MD Ordering Physician: Vicente Mooney MD Date of Service: 02/05/25 Procedure(s): US pelvic and transvaginal Accession Number(s): [id number] cc: Petra Wiley; Vicente Mooney MD EXAMINATION: [...] 02/05/25 1426 DD/ 1343 TD/TT: 02/05/25 1355 Rubber Curer: us [facility] External Provider IMG US PROCEDURES Final Result * US Renal Complete (02/03/2025 1:34 PM EDT) Anatomical Region Laterality Modality Kidney Ultrasound 02/03/2025 1:34 PM EDT Narrative 02/03/2025 3:08 PM EDT [address] [address] Ultrasound Report Signed Patient: Ambika Mcdermott MR#: [id number] : 1985 Acct:[id number] Age/Sex: 39 / F ADM Date: 02/03/25 Loc: HO.US Attending Dr: Brigid LUCERO-MITRA Ordering Physician: Brigid Guy Date of Service: 02/03/25 Procedure(s): US renal BI Accession Number(s): [id number] cc: Brigid Guy-BC; Petra Wiley EXAMINATION: US [...] 02/03/25 1505 DD/ 1334 TD/TT: 02/03/25 1344 Rubber Curer: Procedure Note Donotuseinterpreter, Image - 02/03/[address] [address] Ultrasound Report Signed Patient: Ambika McdermottMR#: [id number] : 1985Acct:[id number] Age/Sex: 39 / FADM Date: 02/03/25 Loc: .US Attending Dr: Brigid BARRIGA Ordering Physician: Brigid Guy Date of Service: 02/03/25 Procedure(s): US renal BI Accession Number(s): [id number] cc: Brigid GuyBC; Petra Wiley EXAMINATION: US RETROPERITONEAL LIMITED (RENAL [...] 02/03/25 1505 DD/ 1334 TD/TT: 02/03/25 1344 Rubber Curer: us [facility] External Provider IMG US PROCEDURES Final Result * XR Elbow 3+ Views Left (01/17/2025 12:39 AM EDT) Anatomical Region Laterality Modality Upper Extremities, Elbow Left Radiogr aphic Imaging 01/17/2025 12:3 9 AM EDT Narrative 01/17/2025 12:40 AM EDT [address] [address] XRay Report Signed Patient: Ambika Mcdermott MR#: [id number] : 1985 Acct:[id number] Age/Sex: 39 / F ADM Date: 01/17/25 Loc: HO.ED Attending Dr: Ordering Physician: Generic ED Physician Date of Service: 01/16/25 Procedure(s): XR elbow LT min 3V Accession Number(s): [id number] cc: Generic ED Physician; Petra Wiley CLINICAL [...] MD in OV> 01/17/2538 DD/ TD/TT: 01/17/2538 Rubber Curer: Procedure Note Donotuseinterpreter, Image - 01/17/[address] [address] XRay Report Signed Patient: Ambika McdermottMR#: [id number] : 1985Acct:[id number] Age/Sex: 39 / FADM Date: 01/17/25 Loc: HO.ED Attending Dr: Ordering Physician: Generic ED Physician Date of Service: 01/16/25 Procedure(s): XR elbow LT min 3V Accession Number(s): [id number] cc: Generic ED Physician; Petra Wiley CONFIDENTIAL INVESTIGATOR CLINICAL HISTORY: fall 3 view left elbow [...] MD in OV> 01/17/2538 DD/ TD/TT: 01/17/2538 Rubber Curer: [facility] External Provider IMG XR PROCEDURES Final Result * XR Knee 4+ Views Left (01/17/2025 12:26 AM EDT) Anatomical Region Laterality Modality Lower Extremities, Knee Left Radiogra phic Imaging 01/17/2025 12:2 6 AM EDT Narrative 01/17/2025 12:28 AM EDT [place] [address] XRay Report Signed Patient: Ambika Mcdermott MR#: [id number] : 1985 Acct:[id number] Age/Sex: 39 / F ADM Date: 01/17/25 Loc: .ED Attending Dr: Ordering Physician: Generic ED Physician Date of Service: 01/16/25 Procedure(s): XR knee LT 4V Accession Number(s): [id number] cc: Generic ED Physician; Petra Wiley CLINICAL [...] signed by [place] Escobedo MD in OV> 01/17/257 DD/ TD/TT: 01/17/2525 Rubber Curer: Procedure Note Epi, Image - 01/17/[address] [address] XRay Report Signed Patient: Ambika McdermottMR#: [id number] : 1985Acct:[id number] Age/Sex: 39 / FADM Date: 01/17/25 Loc: HO.ED Attending Dr: Ordering Physician: Generic ED Physician Date of Service: 01/16/25 Procedure(s): XR knee LT 4V Accession Number(s): [id number] cc: Generic ED Physician; Petra Wiley CLINICAL [...] MD in OV> 01/17/2526 DD/ TD/TT: 01/17/2525 Rubber Curer: [facility] External Provider IMG XR PROCEDURES Final Result * XR Elbow 1-2 Views Left (01/16/2025 12:48 PM EDT) Anatomical Region Laterality Modality Upper Extremities, Elbow Left Radiogr aphic Imaging Historical Provider IMToyin XR PROCEDURES Final R esult * HPV DNA, Low/High Risk (01/13/2025 4:39 PM EDT) HPV High Risk Negative Negative [facility] HPV Genotype [address] Negative [address] [facility] HPV Genotype [address] Negative Negative [facility] Comment:HPV testing performe d at [facility] (CLIA#[id number]), [address] [place] [phone].Testing for HPV was performed using the Mirela [...] Provider LAB BLOOD ORDERAB LES Final Result [facility] [address] [place] [phone] * Pap Smear (01/13/2025 4:39 PM EDT) 01/13/2025 4:39 PM EDT 01/14/2025 1:27 PM EDT Narrative [facility] - 01/21/2025 10:02 AM EDT ----- ------- Name: Ambika Mcdermott Age/Sex: 39/F : 1985 Unit#: [id number] Attend Dr: Vicente Mooney MD Re01/13/25 Status: DEP REF Location: [facility] Disch: ----- ------- SPEC : [id number] RECD: 01/14/25 STATUS: [place] IQBAL NUM: [id number] BILLY: 01/13/25 [facility] DR: Vicente Mooney MD ENTERED: 01/14/25 SP TYPE: Pap Smr OT DR: Petra Wiley CONFIDENTIAL INVESTIGATOR ORDERED: Pap Smear Interpretation Satisfactory for evaluation. [...] and HPV testing will be performed at [facility] (CLIA #[id number]), [address] [place] [address]. Testing for HPV was performed using the [...] detected. All professional services are performed by [facility] ([address] [place] [address], [place] [address]; ; CLIA #[id number]). The PAP Test is a screening procedure with the inherent possibility of both false negative and false positive results. Results should be interpreted in the context of historic and current clinical findings. Reliability of the PAP Test is enhanced by performing the test on a regular repetitive basis. CONTINUED ON NEXT PAGE ----- ------- Name: Ambika cMdermott Age/Sex: 39/F : 1985 Unit#: [id number] Attend Dr: Vicente Mooney MD Re01/13/25 Status: DEP REF Location: [facility] Disch: ----- ------- SPEC : [id number] RECD: 01/14/25 STATUS: [place]IA IQBAL NUM: [id number] BILLY: 01/13/25163 [facility] DR: Vicente Mooney MD ENTERED: 01/14/254329 SP TYPE: Pap Smr OTHR DR: Petra Wiley ORDERED: Pap Smear Copies To: Petra Wliey [address] [place] [address] Vicente Mooney MD [facility] [address] [place] [address] [place] [address] ----- ------- Signed (signature on file) SIOMARA Portillo (ASCP) 01/21/25 1002 ----- ------- END OF REPORT Generic External Data Provider LAB CYTOLOGY ORDE RABCORDELIA Final Result Performing Organization Address [facility] Co de Phone Number [facility] [address] [place] [address] [phone] * (ABNORMAL) Bacterial Vaginosis (01/13/2025 3:31 PM EDT) TRICHOMONAS VAGINALIS DETECTION BY PCR NOT DETECTED Not Detect [facility] BACTERIAL VAGINOSIS DETECTION BY PCR NEGATIVE Negative [facility] Comment:The BV organism targ ets of [...] GROUP DETECTION BY PCR DETECTED(A) Not Detect [facility] Eva glab krusei PCR NOT DETECTED Not Detect [facility] 01/13/2025 3:31 PM EDT 01/14/2025 12:22 PM EDT Generic External Data Provider LAB MICROBIOLOGY - GENERAL ORDERABLES Final Result Performing Organization Address [facility] Co de Phone Number [facility] [address] [place] [address] [phone] * Chlamydia/N. Gonorrhoeae RNA, TMA, Urogenitial (01/13/2025 3:31 PM EDT) CT PCR NOT DETECTED Not Detect. [facility] Comment:A not detected test result does [...] psychologicalconsequences. NG PCR NOT DETECTED Not Detect. [facility] Comment:A not detected test result does [...] LAB MICROBIOLOGY - GENERAL ORDERABLES Final Result [facility] [address] [place] [phone] * CT Abdomen Pelvis w/ Contrast (01/08/2025 8:17 AM EDT) Anatomical Region Laterality Modality Body, Pelvis, Abdomen Computed T omography 01/08/2025 8:17 AM EDT Narrative 01/08/2025 9:56 AM EDT [address] [address] [address] Scan Report Signed Patient: Ambika Mcdermott MR#: [id number] : 1985 Acct:[id number] Age/Sex: 39 / F ADM Date: 01/08/25 Loc: HO.ED Attending Dr: Ordering Physician: Mateo Escobedo MD Date of Service: 01/08/25 Procedure(s): CT abdomen pelvis w IV con Accession Number(s): [id number] cc: Mateo Escobedo MD; Petra Wiley [facility] Report Number: [id number]: Total DLP = 543.00 mGy-cm EXAMINATION: CT [...] 01/08/25 0953 DD/ 0817 TD/TT: 01/08/25 0937 Rubber Curer: Procedure Note Donotuseinterpreter, Image - 01/08/[address] [address] [address] Scan Report Signed Patient: Ambika Mcdermott#: [id number] : 1985Acct:[id number] Age/Sex: 39 / FADM Date: 01/08/25 Loc: HO.ED Attending Dr: Ordering Physician: Mateo Escobedo MD Date of Service: 01/08/25 Procedure(s): CT abdomen pelvis w IV con Accession Number(s): [id number] cc: Mateo Escobedo MD; Petra Wiley [facility] Report Number: [id number]: Total DLP = 543.00 mGy-cm EXAMINATION: CT [...] 01/08/25 0953 DD/ 0817 TD/TT: 01/08/25 0937 Rubber Curer: [facility] External Provider IMG CT PROCEDURES Edited Result - Final * Urinalysis w/reflex microscopic (01/08/2025 7:03 AM EDT) Color Urine Yellow [facility] Appearance Urine Clear [facility] PH 5.5 5.0 - 9.0 [facility] Glucose Urine UA Negative Negative mg/dL [facility] Urine Blood Negative Negative [facility] Specific [place] - Urine 1.020 1.005 - 1.025 [facility] Urine Protein Negative Neg-Trace mg/dL [facility] Urine Ketones Negative Negative mg/dL [facility] Nitrite Urine Negative Negative [facility] Leukocyte Esterase Urine Negative Negative [facility] 01/08/2025 7:03 AM EDT 01/08/2025 7:08 AM EDT Narrative [facility] - 01/08/2025 7:33 AM EDT Urine, Clean Catch Generic External Data Provider LAB URINE ORDERAB LES Final Result [facility] [address] [place] [address] [phone] * High Sensitivity Troponin I (01/08/2025 5:54 AM EDT) TROPONIN I HIGH SENSITIVITY <2.7 <3.5 - 17.0 ng/L [facility] Comment:[place] high sens itivity Troponin-I results should beused in conjunction with other diagnostic information suchas ECG, clinical observations and information, and patientsymptoms to aid in the diagnosis of NV. 01/08/2025 5:54 AM EDT 01/08/2025 5:59 AM EDT us Generic External Data Provider LAB BLOOD ORDERAB LES Final Result [facility] [address] [place] [phone] * hCG, Total, Quantitative (01/08/2025 5:54 AM EDT) Only the most recent of2 resultswithin the time period is included. HCG Quantitative <2 mIU/mL [facility] Comment:Weeks post LMP Appro ximate hCG(Last Menstrual Period) Range (mIU/ml)3 - 4 weeks 9 - 1304 - 5 weeks 75 - 2,6005 - 6 weeks 850 - 20,8006 - 7 weeks 4000 - 100,2007 - 12 weeks 11,500 - 289,99291 - 16 weeks 18,300 - 137,60358 - 29 weeks (2nd trimester) 1,400 - 53,15179 - 41 weeks (3rd trimester) 940 - [...] ORDERAB LES Final Result Performing Organization Address City/[facility]/ZIP Co de Phone Number [facility] [address] [place] [address] [phone] * Lipase (01/08/2025 5:54 AM EDT) Only the most recent of2 resultswithin the time period is included. Lipase 28 8 - 78 U/L [facility] 01/08/2025 5:54 AM EDT 01/08/2025 5:59 AM EDT Generic External Data Provider LAB BLOOD ORDERAB LES Final Result Performing Organization Address [facility] Co de Phone Number [facility] [address] [place] [address] [phone] * (ABNORMAL) Comprehensive Metabolic Panel (01/08/2025 5:54 AM EDT) Only the most recent of3 resultswithin the time period is included. Sodium 140 135 - 145 mmol/L [facility] Potassium 3.9 3.3 - 5.1 mmol/L [facility] Chloride 109(H) 96 - 108 mmol/L [facility] Carbon Dioxide 24 22 - 29 mmol/L [facility] Anion Gap 11(L) 12 - 20 [facility] Urea Nitrogen (BUN) 8(L) 9 - 16 mg/dL [facility] Creatinine, Serum 0.61 0.5 - 1.4 mg/dL [facility] Creatinine Clr Calc Pharmacy 111.6 [facility] Comment:Provided height and weight: 152.4 cm,71.8 kg.eGFR (calculated from the MDRD study equation) and eCrCl(calculated from the Cockcroft-Gault equation) are based ondifferent parameters and may not yield comparable results.If eCrCl result is absurd, please check patient'sheight/weight. Estimated Glomerular Filt Rate >60 [facility] Comment:Chronic Kidney Disea se: Estimated GFR < 60 mL/min/1.48e5Bhtoda Kidney Disease: Estimated GFR < 15 mL/min/1.73m2 Glucose 111 60 - 115 mg/dL [facility] Calcium 9.2 8.4 - 10.2 mg/dL [facility] Bilirubin, Total 0.2 0.0 - 1.0 mg/dL [facility] Aspartate Amino Transferase 18 5 - 31 U/L [facility] Alanine Aminotransferase 19 0 - 31 U/L [facility] Total Protein 7.5 6.5 - 8.0 g/dL [facility] Albumin Level 4.6 3.5 - 5.0 g/dL [facility] Alkaline Phosphatase 68 39 - 117 U/L [facility] 01/08/2025 5:54 AM EDT 01/08/2025 5:59 AM EDT us Generic External Data Provider LAB BLOOD ORDERAB LES Final Result Performing Organization Address City/State/[facility] Co de Phone Number [facility] [address] [place] [address] [phone] * CT Abdomen Pelvis w/o Contrast (12/16/2024 3:24 PM EDT) Anatomical Region Laterality Modality Body, Pelvis, Abdomen Computed T omography 12/16/2024 3:24 PM EDT Narrative 12/16/2024 5:00 PM EDT [place] [address] CT Scan Report Signed Patient: Ambika Mcdermott MR#: [id number] : 1985 Acct:[id number] Age/Sex: 39 / F ADM Date: 12/16/24 Loc: HO.ED Attending Dr: Ordering Physician: Osman Mathew MD Date of Service: 12/16/24 Procedure(s): CT abdomen pelvis wo IV con Accession Number(s): [id number] cc: Osman Mathew MD; Petra Wiley CONFIDENTIAL INVESTIGATOR Report Number: [id number]: Total DLP = 553.00 mGy-cm EXAMINATION: CT [...] 12/16/24 1657 DD/ 1524 TD/TT: 12/16/24 1635 Rubber Curer: Procedure Note Donotbonnieinterpreter, Image - 12/16/[address] [place] [address] [address] Scan Report Signed Patient: Ambika McdermottMR#: [id number] : 1985Acct:[id number] Age/Sex: 39 / FADM Date: 12/16/24 Loc: HO.ED Attending Dr: Ordering Physician: Osman Mathew MD Date of Service: 12/16/24 Procedure(s): CT abdomen pelvis wo IV con Accession Number(s): [id number] cc: Osman Mathew MD; Petra Wiley [facility] Report Number: [id number]: Total DLP = 553.00 mGy-cm EXAMINATION: CT [...] 12/16/24 1657 DD/ 1524 TD/TT: 12/16/24 1635 Rubber Curer: [facility] External Provider IMG CT PROCEDURES Final Result * (ABNORMAL) Urinalysis, Complete, with Reflex to Culture (12/16/2024 3:20 PM EDT) Color Urine Yellow [facility] Appearance Urine Clear [facility] PH 5.5 5.0 - 9.0 [facility] Glucose Urine UA Negative Negative mg/dL [facility] Urine Blood Negative Negative [facility] Specific [place] - Urine 1.020 1.005 - 1.025 [facility] Urine Protein Negative Neg-Trace mg/dL [facility] Urine Ketones Trace Negative mg/dL [facility] Nitrite Urine Negative Negative [facility] Leukocyte Esterase Urine Small (1+)(A) Negative [facility] RBC Urine 0-2 0 - 2 /HPF [facility] Urine WBC 0-5 0 - 5 /HPF [facility] Urine Squamous Epithelial Cell 0-2 0 - 2 /HPF [facility] Urine Bacteria None Seen None Seen [facility] Hyaline Casts, Urine 0-2 0 - 2 /LPF [facility] 12/16/2024 3:20 PM EDT 12/16/2024 3:49 PM EDT Narrative [facility] - 12/16/2024 4:06 PM EDT [id number], Clean Catch us Generic External Data Provider LAB URINE ORDERAB LES Final Result Performing Organization Address City/[facility]/ZIP Co de Phone Number [facility] [address] [place] [phone] * Culture, Urine, Routine (12/16/2024 12:00 AM EDT) Urine Urine specimen obtained by clean catch procedure / Unknown 12/16/2024 12/16/2024 Comment:[facility] - 12/18/2024 11:46 AM EDT Urine Culture Report Result Urine Culture < 10,000 cfu/ml Specimen Source: Urine clean catch Generic External Data Provider LAB MICROBIOLOGY - GENERAL ORDERABLES Final Result Performing Organization Address [facility]/ZIP Co de Phone Number [facility] [address] [place] [phone] * Hemoglobin A1c (11/26/2024 2:45 PM EDT) Hemoglobin A1c 5.0 <6.0 % [facility] Comment:Hemoglobin A1C Refer ence Range Adults: 4.8 - 6.0 % Non diabetic: < 6.0 % Goal: < 7.0 %Additional Action Suggested: > 8.0 %Note: Hemoglobin A1c results are invalid for patients with abnormal amounts of HbF. Blood transfusions may impact the HbA1c concentration in the patient sample. Estimated Average Glucose 97 mg/dL [facility] Comment:eAG = Estimated ave rage glucose which is %A1C expressed asaverage glucose, using the formula of the K3N-TuxfmyqHouqjme Glucose study (ADAG), Diabetes Care, Vol.31,#8,Jan. 2007 Blood Venous blood specimen / Unknown 11/26/2024 2:45 PM EDT 11/26/2024 2:45 PM EDT Petra Wiley [facility] BLOOD ORDERABLES Final Res ult Performing Organization Address [facility] de Phone Number [facility] [address] [place] [phone] * (ABNORMAL) Lipid Panel, Standard (11/26/2024 2:45 PM EDT) Triglycerides 101 <150 mg/dL [facility] Comment:Desirable Triglyceri de: less than 150 mg/dLBorderline High Triglyceride 150-199 mg/dLHigh Triglyceride: 200-499 mg/dLVery High Triglyceride: greater than or equal to 5OO mg/dL Cholesterol 208(H) <200 mg/dL [facility] Comment:Desirable Cholestero l: less than 200 mg/dLBorderline High Cholesterol: 200-239 mg/dLHigh Cholesterol: greater than 239 mg/dL LDL Cholesterol Calculated 140(H) <100 mg/dL [facility] Comment:Desirable LDL: less than 100 mg/dLNear Optimal/Above Optimal LDL: 110- 129 mg/dLBorderline High LDL: 130-159 mg/dLHigh LDL: 160-189 mg/dLVery High LDL: greater than or equal to 190 mg/dL HDL Cholesterol 48 >40 mg/dL [facility] Comment:Desirable HDL: great er than 40 mg/dL Note: This HDL assay may give artificially low results in patients with liver disease. Blood Venous blood specimen / Unknown 11/26/2024 2:45 PM EDT 11/26/2024 2:45 PM EDT Petra Wiley [facility] BLOOD ORDERABLES Final Res ult Performing Organization Address [facility] Co de Phone Number [facility] [address] [place] [phone] * XR Hand 3+ Views Left (11/25/2024 8:34 PM EDT) Anatomical Region Laterality Modality Upper Extremities, Hand Left Radiogra phic Imaging 11/25/2024 8:34 PM EDT Narrative 11/25/2024 8:35 PM EDT [place] [address] XRay Report Signed Patient: Ambika Mcdermott MR#: [id number] : 1985 Acct:[id number] Age/Sex: 39 / F ADM Date: 11/25/24 Loc: HOSAURABH Attending Dr: Petra LUCERO Ordering Physician: Petra Wiley Date of Service: 11/25/24 Procedure(s): XR hand LT min 3V Accession Number(s): [id number] cc: Petra Wiley CLINICAL HISTORY: 39 y [...] in OV> 11/25/242033 DD/ 33 TD/TT: 11/25/242033 Rubber Curer: Procedure Note Donotuseinterpreter, Image - 11/25/[address] [address] XRay Report Signed Patient: Ambika McdermottMR#: [id number] : 1985Acct:[id number] Age/Sex: 39 / FADM Date: 11/25/24 Loc: HOTelmaXRAY Attending Dr: Petra LUCERO Ordering Physician: Petra Wiley Date of Service: 11/25/24 Procedure(s): XR hand LT min 3V Accession Number(s): [id number] cc: Petra Wiley CLINICAL HISTORY: 39 y [...] in OV> 11/25/242033 DD/ 33 TD/TT: 11/25/242033 Rubber Curer: Petra Wiley CONFIDENTIAL INVESTIGATOR IMG XR PROCEDURES Final Result * BI Mammogram Diagnostic Tomosynthesis Bilateral (09/01/2024 12:30 PM EDT) Anatomical Region Laterality Modality Breast Bilateral Mammography 09/01/2024 12:3 0 PM EDT Narrative 09/01/2024 3:58 PM EDT [facility] [address] Katz, [place] [address] Mammography Report Signed Patient: Ambika Mcdermott MR#: [id number] : 1985 Acct:[id number] Age/Sex: 39 / F ADM Date: 09/01/24 Loc: MAMMO Attending Dr: Petra LUCERO Ordering Physician: Petra Wiley Results: 3.6MPr obably Benign Finding - Short 6 M F/U Suggested Date of Service: 09/01/24 Follow Up: 6 Month F/U Procedure(s): MM tomosynthesis diagnostic BI Accession Number(s): [id number] cc: Petra Wiley EXAMINATION: MM DIAGNOSTIC DIGITAL [...] 09/01/24 1555 DD/ 1230 TD/TT: 09/01/24 1332 Rubber Curer: Procedure Note Donotuseinterpreter, Image - 09/01/2024 [facility] [address] [place] [address] Dr. Katz, [place] [address] Mammography Report Signed Patient: Ambika McdermottMR#: [id number] : 1985Acct:[id number] Age/Sex: 39 / FADM Date: 09/01/24 Loc: HO.MAMMO Attending Dr: Petra Wiley CONFIDENTIAL INVESTIGATOR Ordering Physician: Petra Wiley FNPResults: 3.6MPr obably Benign Finding - Short 6 M F/U Suggested Date of Service: 09/01/24Follow Up: 6 Month F/U Procedure(s): MM tomosynthesis diagnostic BI Accession Number(s): [id number] cc: Petra Wiley CONFIDENTIAL INVESTIGATOR EXAMINATION: MM DIAGNOSTIC DIGITAL BREAST TOMOSYNTHESIS, BILATERAL [...] 09/01/24 1555 DD/ 1230 TD/TT: 09/01/24 1332 Rubber Curer: Petra LUCERO IMG BI PROCEDURES Final Result * Hepatitis C Viral RNA, Quantitative, Real-Time PCR (03/18/2024 2:05 PM EDT) Hepatitis C Viral Load <15 NOT DETECTED NOT DETECTED IU/mL [facility] HCV Log PCR <1.18 NOT DETECTED NOT DETECTED Log IU/mL [facility] Comment:For additional infor mation, please refer tohttp://education.[employer]/faq/YDN58v1(This link is being provided for informational/educational purposes only.)THIS TEST WAS PERFORMED AT:[employer] [place] [phone] DEL CID MD Blood 03/18/2024 2:05 PM EDT 03/18/2024 2:05 PM EDT Petra LUCERO LAB BLOOD ORDERABLES Final Res ult [facility] [address] [place] [address] [phone] * HIV-1/2 Antigen and Antibodies, Fourth Generation, with Reflexes (03/18/2024 2:05 PM EDT) HIV AB/AG Nonreactive Nonreactive [facility] Comment:HIV-1 p24 Ag and/or HIV-1/HIV-2 Ab not detected.A test result that is nonreactive does not exclude thepossibility of exposure to or infection with HIV-1 and/orHIV-2. Nonreactive results in this assay for individualswith prior exposure to HIV-1 and/or HIV-2 may be due toantigen and antibody levels that are below the limit ofdetection of this assay.The Telvent Git HIV Ag/Ab Combo assay result andsupplemental assay results should be interpreted inconjunction with the patient's clinical presentation,history and other laboratory results. If the results areinconsistent with clinical evidence, additional testing issuggested to confirm the result. Blood Venous blood specimen / Unknown 03/18/2024 2:05 PM EDT 03/18/2024 2:05 PM EDT us Petra Wiley [facility] LAB BLOOD ORDERABLES Final Res ult [facility] [address] [place] [phone] from Last 3 Months or Most Recently Relevant to Health Maintenance Insurance [facility] C3 DENTAL-[facility] MEDICAID STAND ADULT Care Teams Thread Tool Grinder Set Up Operator Relationship Specialty Start Date End Date Petra Wiley FNP [address] [place] [address] PCP - General Family Medicine 03/17/24 Willard Waters [address] [place] [address] Rheumatology 05/17/24September [address] 3rd [place] [address] Gastroenterology 05/17/24 Juan Sandra MD [address] [place] [address] Hematology and Oncology 05/17/24 Brigid Guy NP [address] [place] [address] Urology 05/17/24 Vicente Mooney MD [address] [place] [address] [address] [place] [address] Obstetrics and Gynecology 05/17/24 Beth Rai MD [address] [place] [address] [place] [address] Neurology 05/17/24 Michell Espinoza [address] [place] [address] 3rd [place] [address] Cardiology 05/17/24 Shelia Zheng [employer] SupervisorTurn Down Attendant 09/26/23
--- OUTSIDE RECORDS SUMMARY | 2025-02-24 16:23 | XMS_ITS | Clinical Summary ---
Author Organization [facility] Address [address] [place] [address] Care Team Providers Care Retail Service Representative Name Role Phone Petra Wiley Primary Care Provider [phone] Allergies Active Allergy Reactions Criticality Noted Date [...] Encounters Date Type Department Care Team Description 02/23/2025 Documentation [facility] B[facility] Clinic [address] [place] [address] Anneliese Mcfadden RN 02/09/2025 10:15 AM EDT Office Visit [facility] Dermatology Clinic [address]th [address] [place] [address], [place] [address] Supervisor Mechanic Boilermaking: Breann Tang MD Raynaud's phenomenon without gangrene (Primary Dx) 01/18/2025 3:40 PM EDT Office Visit [facility] BMT Clinic [address] [place] [address] Shavon Roberson NP Iron deficiency (Primary Dx) 12/31/2024 Results Follow-Up [facility] Rheumatology [facility] [address] [place] [address] Supervisor Mechanic Boilermaking: Mary Senior LPN 12/02/2024 Telephone [facility] Rheumatology [facility] [address] [place] [address] Supervisor Mechanic Boilermaking: Newton Rangel DO from Last 3 Months [...] Description 03/04/2025 3:00 PM EDT Office Visit [facility] [address] [phone] Supervisor Mechanic Boilermaking: Shasha Campos PA [address] [place] [address] 04/19/2025 1:20 PM EST Lab [facility] ACC Draw Site Fifth Floor [address] [place] [address] 04/19/2025 2:20 PM EST Follow-Up [facility] Building BMT Clinic [address] [place] [address] Shavon Roberson NP [address] [place] [address] Health Maintenance Due Date Last Done Comments [...] 20 - 50 % 6:03 PM EDT [employer] [facility] Iron 104 30 - 160 ug/dL 01/18/2025 6:03 PM EDT [facility] [facility] Transferrin 274 200 - 360 mg/dL 01/18/2025 6:03 PM EDT [facility] Total Iron Binding Capacity 343 255 - 450 ug/dL 01/18/2025 6:03 PM EDT [facility] Blood Structure of peripheral vein / Unknown Venipuncture / Unknown 01/18/2025 4:51 PM EDT 01/18/2025 5:17 PM EDT us Shavon Roberson SWING FRAME GRINDER OPERATOR LAB BLOOD ORDERABLES F inal Result [facility] [address] [place] [address], * (ABNORMAL) CBC Auto Differential (01/18/2025 4:51 PM EDT) WBC 10.2 3.8 - 10.8 10*3/uL 01/18/2025 5:12 PM EDT [facility] RBC 4.67 3.80 - 5.10 10*6/uL 01/18/2025 5:12 PM EDT [facility] LABORATORY Hemoglobin 12.4 11.7 - 15.5 g/dL 01/18/2025 5:12 PM EDT [facility] [employer] Hematocrit 39.3 35.0 - 45.0 % 01/18/2025 5:12 PM EDT [facility]SM[facility] MCV 84.2 80.0 - 100.0 fL 01/18/2025 5:12 PM EDT [facility] MCH 26.6(L) 27.0 - 33.0 pg 01/18/2025 5:12 PM EDT [facility] MCHC 31.6(L) 32.0 - 36.0 g/dL 01/18/2025 5:12 PM EDT [facility] RDW 14.8 11.0 - 15.0 % 01/18/2025 5:12 PM EDT [facility] Platelets 264 140 - 400 10*3/uL 01/18/2025 5:12 PM EDT [facility] MPV 12.1 7.5 - 12.5 fL 01/18/2025 5:12 PM EDT [facility] Neutrophil % 68.8 % 01/18/2025 5:12 PM EDT [facility] Immature Grans % 0.2 0.0 - 0.9 % 01/18/2025 5:12 PM EDT [facility] Lymphocyte % 22.2 % 01/18/2025 5:12 PM EDT [facility] Monocyte % 6.5 % 01/18/2025 5:12 PM EDT [employer] Eosinophil % 1.7 % 01/18/2025 5:12 PM EDT [employer] Basophil % 0.6 % 01/18/2025 5:12 PM EDT [facility] Neutrophil # 7.04 1.50 - 7.80 10*3/uL 01/18/2025 5:12 PM EDT [facility]ITALRadisysWI [facility] PATH[facility] LAB[facility] Immature Grans # <0.03 <=0.03 10*3/uL 01/18/2025 5:12 PM EDT [facility]ITALTribotekOH[facility] - [facility] CL[facility] PATHOLOG[facility] LAB[facility]ORY Lymphocyte # 2.30 0.85 - 3.90 10*3/uL 01/18/2025 5:12 PM EDT [facility]ITALTribotekOH[facility] CLINICAL PATHOLOGY LABORATORY Monocyte # 0.70 0.20 - 0.95 10*3/uL 01/18/2025 5:12 PM EDT [facility] Eosinophil # 0.20 0.02 - 0.50 10*3/uL 01/18/2025 5:12 PM EDT [facility]PITALGuru TechnologiesCARIBOU MEMORIAL [facility]PITAL [facility] CL[facility] LAB[facility] Basophil # 0.10 0.00 - 0.20 10*3/uL 01/18/2025 5:12 PM EDT [facility]ITALGuru TechnologiesCARIBOU MEMORIAL [facility] LAB[facility] nRBC % 0.0 /100 WBCs 01/18/2025 5:12 PM EDT [facility]ITALGuru TechnologiesWI [facility] CL[facility] PATHOLOGY LAB[facility]ATORY nRBC # <0.01 <0.01 10*3/uL 01/18/2025 5:12 PM EDT [facility]PITALOncoMed PharmaceuticalsOHIOHEALTH [facility] LAB[facility] Total Neutrophil #, Preliminary 7.04 1.50 - 7.80 10*3/uL 01/18/2025 5:12 PM EDT [facility]ITALRadisysWI [facility] LAB[facility] Blood Structure of peripheral vein / Unknown Venipuncture / Unknown 01/18/2025 4:51 PM EDT 01/18/2025 5:07 PM EDT us Shavon Roberson SWING FRAME GRINDER OPERATOR LAB BLOOD ORDERABLES F inal Result [facility] LAB[facility]ORY [address] [place] [address], * Reticulocytes (01/18/2025 4:51 PM EDT) Retic % 0.8 0.5 - 1.6 % 01/18/2025 5:12 PM EDT [facility] CL[facility] PATH[facility] LAB[facility] Retic # 0.04 0.02 - 0.08 10*6/uL 01/18/2025 5:12 PM EDT [facility] CL[facility] LAB[facility] Blood Structure of peripheral vein / Unknown Venipuncture / Unknown 01/18/2025 4:51 PM EDT 01/18/2025 5:07 PM EDT Sh[employer]onPovo Dipinto SWING FRAME GRINDER OPERATOR LAB BLOOD ORDERABLES F inal Result [facility] LAB[facility]ORY [address] [place] [address], [place] * (ABNORMAL) Lactate Dehydrogenase (01/18/2025 4:51 PM EDT) LDH 247(H) 135 - 225 U/L 01/18/2025 5:40 PM EDT [facility] Blood Structure of peripheral vein / Unknown Venipuncture / Unknown 01/18/2025 4:51 PM EDT 01/18/2025 5:07 PM EDT [employer] SWING FRAME GRINDER OPERATOR LAB BLOOD ORDERABLES F inal Result [facility]ITALTribotekOH[facility] LAB[facility] [address] [place] [address], [place] * Folate (01/18/2025 4:51 PM EDT) Folate 16.4 4.8 - 24.2 ng/mL 01/18/2025 6:03 PM EDT airpimNYTribotekOHIOHEALTH [facility] LAB[facility] Blood Structure of peripheral vein / Unknown Venipuncture / Unknown 01/18/2025 4:51 PM EDT 01/18/2025 5:17 PM EDT Shavon Peoria Dipinto SWING FRAME GRINDER OPERATOR LAB BLOOD ORDERABLES F inal Result Performing Organization Address City/[facility]/ZIP Co de Phone Number [employer] [facility] LAB[facility]ORY [address] [place] [address], * Ferritin (01/18/2025 4:51 PM EDT) Ferritin 110.0 11.0 - 306.0 ng/mL 01/18/2025 6:03 PM EDT [employer] [facility] Blood Structure of peripheral vein / Unknown Venipuncture / Unknown 01/18/2025 4:51 PM EDT 01/18/2025 5:17 PM EDT Shavon Miller Dipinto SWING FRAME GRINDER OPERATOR LAB BLOOD ORDERABLES F inal Result Performing Organization Address [facility] Co de Phone Number [employer] [facility] [address] [place] [address], [place] * Vitamin B12 (01/18/2025 4:51 PM EDT) Pathologist [facility] Vitamin B12 384 232 - 1,245 pg/mL 01/18/2025 6:03 PM EDT [employer] [facility] Blood Structure of peripheral vein / Unknown Venipuncture / Unknown 01/18/2025 4:51 PM EDT 01/18/2025 5:17 PM EDT Shavon Miller Dipinto SWING FRAME GRINDER OPERATOR LAB BLOOD ORDERABLES F inal Result Performing Organization Address City/[facility]/ZIP Co de Phone Number [employer] [facility] [address] [place] [address], * (ABNORMAL) Comprehensive Metabolic Panel (01/18/2025 4:51 PM EDT) NA 138 135 - 145 mmol/L 01/18/2025 6:03 PM EDT [employer] [facility] K 3.9 3.5 - 5.3 mmol/L 01/18/2025 6:03 PM EDT [employer] [facility] Cl 104 98 - 107 mmol/L 01/18/2025 6:03 PM EDT [employer] [facility] CO2 22 22 - 32 mmol/L 01/18/2025 6:03 PM EDT [employer] [facility] Anion Gap 12 5 - 15 01/18/2025 6:03 PM EDT [employer] [facility] Glucose 120(H) 65 - 99 mg/dL 01/18/2025 6:03 PM EDT [employer] [facility] Creatinine 0.62 0.50 - 1.20 mg/dL 01/18/2025 6:03 PM EDT [employer] [facility] Calcium 9.4 8.6 - 10.5 mg/dL 01/18/2025 6:03 PM EDT [employer] [facility] Total Protein 7.3 6.0 - 8.0 g/dL 01/18/2025 6:03 PM EDT [employer] [facility] Albumin 4.3 3.5 - 5.2 g/dL 01/18/2025 6:03 PM EDT [employer] [facility] Bilirubin, Total 0.2 0.2 - 1.2 mg/dL 01/18/2025 6:03 PM EDT [employer] [facility] Alkaline Phosphatase 55 35 - 129 U/L 01/18/2025 6:03 PM EDT [facility] [employer] [facility] AST 19 10 - 40 U/L 01/18/2025 6:03 PM EDT [facility] [facility] ALT 13 10 - 40 U/L 01/18/2025 6:03 PM EDT [employer] [facility] BUN 9 7 - 23 mg/dL 01/18/2025 6:03 PM EDT [facility] [employer] [facility] eGFR >90 >=60 mL/min/1. 73m2 01/18/2025 6:03 PM EDT [facility] [facility] Comment:The estimated glomer [...] - 4.2 g/dL 01/18/2025 6:03 PM EDT [facility] A/G Ratio 1.4(L) 1.5 - 3.0 01/18/2025 6:03 PM EDT [employer] [facility] Blood Structure of peripheral vein / Unknown Venipuncture / Unknown 01/18/2025 4:51 PM EDT 01/18/2025 5:17 PM EDT Shavon [place] [facility] SWING FRAME GRINDER OPERATOR LAB BLOOD ORDERABLES F inal Result [facility] LABORATORY [address] [place] [address], * MRI Hand Right without Contrast (12/02/2024 9:30 PM EDT) Anatomical Region Laterality Modality Upper Extremities, Hand Right Magnetic Resonance 12/02/2024 8:40 PM EDT Narrative 12/07/2024 8:13 AM EDT [facility] Accession Number: [id number] Patient Name: Ambika Mcdermott Date of : 1985 Date of Exam: 12-02-2024 Referring Physician: Newton Street [address] [place] [address] Exam: MR Hand (C-) CPT 76502 - Right Room Description: [facility] 3.0T MRI RIGHT HAND HISTORY: Pain FINDINGS: No marrow edema. No osseous erosion or joint effusion. Flexor and extensor tendons of the hand are intact. No evidence of tenosynovitis. IMPRESSION: Normal examination of the hand Electronically Signed By: Giuliano Anthony MD Procedure Note Provider, Munoz - 12/07/2024 [facility] Accession Number: [id number] Patient Name: Ambika Mcdermott Date of : 1985 Date of Exam: 12-02-2024 Referring Physician: Newton Street [address] [place] [address] Exam: MR Hand (C-) CPT 82957 - Right Room Description: [facility] 3.0T MRI RIGHT HAND HISTORY: Pain [...] Final Result from Last 3 Months Insurance [facility] Care Teams Retail Service Representative Relationship Specialty Start Date End Date Petra Wiley [address] [place] [address] PCP - General Family Medicine 03/19/24
--- OUTSIDE RECORDS SUMMARY | 2025-02-24 16:23 | XMS_ITS | Encounter Summary ---
Author Organization [employer] Address [address] 7t [place] [address] Care Team Providers Care Silk Snapper Name Role Phone Petra Wiley TALLIER Primary Care Provider Willard Waters Unavailable [phone] September Unavailable Juan Sandra MD Unavailable [phone] Brigid Guy NP Unavailable Vicente Mooney MD Unavailable Beth Rai MD Unavailable Michell Espinoza Unavailable Encounter Details Date Type Department Care Team (Late st Contact Info) Description 12/21/2024 Orders Only [facility] MEDICINE [address] [place], [place] [phone] Jailene Vitale CNM [address] [place], [place] [phone] Social History Tobacco Use Types Packs/Day Years [...] EDT Clinical Support [facility] DIABETES/NUTRITION [address] [place] [address] [place] [address] documented as of this encounter Procedures Procedure Name Priority Date/Time Associated Diagnosis Comments PAP SMEAR Routine 10/06/2024 12:00 AM EDT documented in this encounter Results * Pap Smear (10/06/2024 12:00 AM EDT) Swab us Vicente Mooney MD LAB CYTOLOGY ORDERABLES Final Re sult [facility] [address] [place] [address] [phone] documented in this encounter Visit Diagnoses Not on filedocumented in this encounter Additional Health Concerns Assessment Noted Time PHQ-9 Depression Total Score: 8 11/26/19 25 5:52 PM EDT documented as of this encounter Care Teams Silk Snapper Relationship Specialty Start Date End Date Petra Wiley FNP [address] [place] [address] PCP - General Family Medicine 03/17/24 Willard Waters [address] [place] [address] Rheumatology 05/17/24KesslerSeptember 11 [facility] 3rd [place] [address] Gastroenterology 05/17/24 Juan Sandra MD [address] [place] [address] Hematology and Oncology 05/17/24 Brigid Guy NP [address] [facility] [address] [place] [address] Urology 05/17/24 Vicente Mooney MD [address] [place] [address] [address] [place] [address] Obstetrics and Gynecology 05/17/24 Beth Rai MD [address] [place] [address] [address] [place] [address] Neurology 05/17/24 Michell Espinoza 11 [facility] 3rd [place] [address] Cardiology 05/17/24 Shelia Zheng Manager SkilledPersonnel Training Officer 09/26/23 documented as of this encounter
--- OUTSIDE RECORDS SUMMARY | 2025-02-24 16:23 | XMS_ITS | Encounter Summary ---
Author Organization [facility] Address [address] [place] [address] Care Team Providers Care Cut Off Operator Scorer Name Role Phone Petra Wiley Primary Care Provider [phone] Encounter Details Date Type Department Care Team (Late st Contact Info) Description 02/23/2025 Documentation [facility] BMT Clinic [address] [place] [address] Anneliese Mcfadden, RITA Social History Tobacco Use Types Packs/Day Years [...] on file documented as of this encounter Nursing Notes * Anneliese Mcfadden RN - 02/23/2025 1:14 PM EDT 1:00p-Received message from supervisor front (BMT clinic) that patient called, stated she was bleeding heavily and then the phone was disconnected. Immediately called the patient with the use of card filer, [employer], #[id number]. While speaking with the pt she reports that she has seen JOSE Soliz in the past. Had since had an IUD inserted for abnormal uterine bleeding, which improved with IUD.The ID was subsequently removed and the pt states she is bleeding a lot She reports that she contacted her physician in the [place] area, who instructed her to go to the ED. She called our clinic to let us know of the symptoms she is having which includes tiredness and she also reports her heart is racing. Given these symptoms I did advise her to go to the ED, as these are urgent symptoms that need to be evaluated in the setting of heavy bleeding. The patient did agree that she would go to the ED, she did also want to ensure that Shavon had this information. I let her know that I would giveGianna this update. documented in this encounter Plan of Treatment Upcoming Encounters Date Type Department Care Team (Late st Contact Info) Description 03/04/2025 3:00 PM EDT Office Visit [facility] [address] [place] [address] Computer Networking Instructor: Shasha Campos PA [address] [place] [address] 04/19/2025 1:20 PM EST Lab [facility] ACC Draw Site Fifth Floor [address] [place] [address] 04/19/2025 2:20 PM EST Follow-Up [facility] Building BMT Clinic [address] [place] [address] Shavon Roberson NP [address] [place] [address] documented as of this encounter Visit Diagnoses Not on filedocumented in this encounter Care Teams Cut Off Operator Scorer Relationship Specialty Start Date End Date Petra Wiley [address] [place] [address] PCP - General Family Medicine 03/19/24 documented as of this encounter
--- OUTSIDE RECORDS SUMMARY | 2025-02-24 16:23 | XMS_ITS | Clinical Summary ---
Author Organization [facility] Address [address] [facility] [address] [place] [address] Phone Care Team Providers Care Four Slide Machine Operator Name Role Phone Karolina Murray MD Primary Care Provider [phone] Allergies Active Allergy Reactions Criticality Noted Date [...] topic Medical Devices Not on file Insurance [facility] [employer] [place] [address] [facility] [place] [address] [facility] C3 [place] [facility] C3 ACO [facility] C3 ACO [facility] C3 ACO Member Subscriber Plan / Payer (Ef fective 2021-Present) Name:Ambika Gleason Relation to Subscriber:Self Name:Ambika Gleason Payer ID:[id number] Group ID:Not on file Type:Medicaid Address: [facility] [address] [place] [address] [place] [address] [facility] C3 ACO [facility] [place] [id number] [facility] C3 ACO Care Teams Four Slide Machine Operator Relationship Specialty Start Date End Date Karolina Murray MD [address] [place], [place] [address] [phone] PCP - General Internal Medicine 09/12/21 Additional Source Comments The information contained in this document represents components of the legal health record. It is not the complete legal health record.[facility]
--- OUTSIDE RECORDS SUMMARY | 2025-02-24 16:23 | XMS_ITS | Encounter Summary ---
Author Organization [employer] Address [address] [facility] 7t [place] [address] Care Team Providers Care Basket Hand Weaver Name Role Phone Petra Wiley GROWTH HACKER Primary Care Provider Willard Waters Unavailable [phone] 2 September Unavailable Juan Sandra MD Unavailable [phone] Brigid Guy NP Unavailable Vicente Mooney MD Unavailable Beth Rai MD Unavailable Michell Espinoza Unavailable Reason for Visit * Reason Comments Med Refill Encounter Details Date Type Department Care Team ([facility] st Contact Info) Description 01/07/[address] [facility] CHC MED & PEDS [address] [place], [place] [phone] Petra Wiley FNP [address] [place], [place] [phone] Fibromyalgia Social History Tobacco Use Types Packs/Day [...] Description 03/26/2025 2:00 PM EDT Clinical Support [facility] DIABETES/NUTRITION [address] [place] [address] [place] [address] documented as of this encounter Visit Diagnoses Diagnosis Fibromyalgia Unspecified myalgia and myositis documented in this encounter Additional Health Concerns Assessment Noted Time PHQ-9 Depression Total Score: 8 11/26/19 25 5:52 PM EDT documented as of this encounter Care Teams Basket Hand Weaver Relationship Specialty Start Date End Date Petra Wiley FNP [address] [place] [address] PCP - General Family Medicine 03/17/24 Willard Waters [address] [facility] [address] [place], [place] Rheumatology 05/17/24 Sumaya Kessler [address] 3rd [place] [address] Gastroenterology 05/17/24 Juan Sandra MD [address] [place] [address] Hematology and Oncology 05/17/24 Brigid Guy NP [address] [place] [address] Urology 05/17/24 Vicente Mooney MD [address] [place] [address] [address] [place] [address] Obstetrics and Gynecology 05/17/24 Beth Rai MD [address] [place] [address] [address] [place] [address] Neurology 05/17/24 Michell Espinoza [address] [facility] 3rd [place] [address] Cardiology 05/17/24 Shelia Zheng Equity ManagerTank Assembler 09/26/23 documented as of this encounter
--- OUTSIDE RECORDS SUMMARY | 2025-02-24 16:23 | XMS_ITS | Encounter Summary ---
Author Organization [employer] Address 75 [facility] 7t [place] [address] Care Team Providers Care Parcel Post Clerk Name Role Phone Jennie Murray MD Primary Care Provider Petra Wiley Primary Care Provider [phone] Willard Waters Unavailable [phone] Sumaya Kessler Unavailable Juan Sandra MD Unavailable [phone] Brigid Guy NP Unavailable Vicente Mooney [...] (Late st Contact Info) Description 08/21/2022 Telephone [facility] ADULT DENTAL 230 [place] [address] Venkat Barreto DDS 230 [place] [address] Appointment (Ambika Anaya 1985 Patient [...] Description 03/26/2025 2:00 PM EDT Clinical Support [facility] DIABETES/NUTRITION 230 [place] [address] 230 [place] [address] documented as of this encounter Visit Diagnoses Not on filedocumented in this encounter Additional Health Concerns Assessment Noted Time PHQ-9 Depression Total Score: 0 07/04/19 3:01 PM EST documented as of this encounter Care Teams Parcel Post Clerk Relationship Specialty Start Date End Date Jennie Murray MD 230 [place] [address] PCP - General Family Medicine 06/23/13 03/16/24 Petra Wiley FNP 230 [place] [address] PCP - General Family Medicine 03/17/24 Willard Waters [address] [place] [address] Rheumatology 05/17/24 Victoria Sumaya 11 [facility] 3rd [place] [address] Gastroenterology 05/17/24 Juan Sandra MD [address] [place] [address] Hematology and Oncology 05/17/24 Brigid Guy NP [address] [facility] [address] [place] [address] Urology 05/17/24 Vicente Mooney MD [address] [place] [address] [address] [place] [address] Obstetrics and Gynecology 05/17/24 Beth Rai MD [address] [place] [address] 140 [place] [address] Neurology 05/17/24 Michell Espinoza 11 [facility] 3rd [place] [address] Cardiology 05/17/24 [facility] Mechan[facility] RecoverySecurity Project Manager 09/26/23 documented as of this encounter
--- OUTSIDE RECORDS SUMMARY | 2025-02-24 16:23 | XMS_ITS | Encounter Summary ---
Author Organization [employer] Address 75 [facility] 7t [place] [address] Care Team Providers Care Rock Crusher Operator Name Role Phone Petra Wiley LOAF COUNTER Primary Care Provider Willard Waters Unavailable [phone] September Unavailable Juan Sandra MD Unavailable [phone] Brigid Guy NP Unavailable Vicente Mooney MD Unavailable Beth Rai MD Unavailable [phone] Michell Espinoza Unavailable Encounter Details Date Type Department Care Team (Late st Contact Info) Description 02/01/2025 Orders Only [facility] 230 [place], [place] [phone] Provider, MD Addie Social History Tobacco Use [...] Description 03/26/2025 2:00 PM EDT Clinical Support [facility] DIABETES/NUTRITION 230 [place] [address] 230 [place] [address] documented as of this encounter Procedures Procedure [...] documented as of this encounter Care Teams Rock Crusher Operator Relationship Specialty Start Date End Date Petra Wiley FNP 230 [place] [address] PCP - General Family Medicine 03/17/24 Willard Waters [address] [place] [address] Rheumatology 05/17/24 Sumaya Kessler 11 [facility] 3rd [place] [address] Gastroenterology 05/17/24 Juan Sandra MD [address] [place] [address] Hematology and Oncology 05/17/24 Brigid Guy NP 10 [facility] [address] [place] [address] Urology 05/17/24 Vicente Mooney MD [address] [place] [address] [address] [place] [address] Obstetrics and Gynecology 05/17/24 Beth Rai MD [address] [place] [address] 140 [place] [address] Neurology 05/17/24 Michell Espinoza 11 [facility] 3rd [place] [address] Cardiology 05/17/24 Shelia Zheng Sr. Manager Corporate CommunicationsInformation Assistant 09/26/23 documented as of this encounter
== END 2025-02-24 13:40 | disposition home or self-care (01) ==
LOC: HO.HHCL 13:39
PROVIDERS: PCP Registered Nurse; Visit Provider Registered Nurse
DX: D50.9 Iron deficiency anemia, unspecified (principal)
CPT/HCPCS: 36415; 82728; 83540; 85025; 86850; 86900; 86901

== ENCOUNTER 2025-03-03 12:58 | Outpatient (REF) | payer MEDICAID, SELFPAY ==
--- NOTE | ~2025-03-03 | US_ITS ---
EXAMINATION: US DIAGNOSTIC ULTRASOUND BREAST, RIGHT CLINICAL INFORMATION: 6 month follow-up right breast hypoechoic solid mass 3:00 4 cm from the nipple.. The patient has a history of multiple previously biopsied fibroadenomas. COMPARISON: Comparison is made with relevant prior imaging. TECHNIQUE: Ultrasound of the breast is performed with real-time pablo scale imaging and color Doppler. FINDINGS: Targeted color Doppler ultrasound scanning in the right breast at 3:00 4 7 m from nipple demonstrates a hypoechoic oval parallel circumscribed solid mass measuring 21 x 13 x 17 mm overall not significantly changed from prior given differences in measuring technique previously measured 19 x 19 x 12 mm. Results are discussed with the patient at time of visit. US/US breast RT limited mamm only IMPRESSION: Hypoechoic oval circumscribed solid mass at 3:00 4 cm from the nipple in the right breast, this area is slightly increased in size but given differences in measuring technique is not significantly changed. Ultrasound-guided core needle biopsy was offered to the patient however patient prefers six-month follow-up at this time. Recommend 6 month follow-up for further evaluation of stability. ASSESSMENT: BI-RADS 3: Probably Benign RECOMMENDATION: Diagnostic mammography in 6 months. This patient's information was entered into a reminder system with a target due date for their next mammogram. Electronically signed by: nEeida Núñez DO 03/03/2025 03:28 PM EDT
--- OUTSIDE RECORDS SUMMARY | 2025-03-03 16:26 | XMS_ITS | Encounter Summary ---
Author Organization [employer] Address 75 [facility] 7t [place] [address] Care Team Providers Care Grey Stock Recorder Name Role Phone Jennie Murray MD Primary Care Provider [phone] Petra Wiley Primary Care Provider Willard Waters Unavailable [phone] KesslerSeptember Unavailable Juan Sandra MD Unavailable [phone] Brigid Guy NP Unavailable Vicente Mooney MD Unavailable Beth Rai MD Unavailable Michell Espinoza Unavailable Encounter Details Date Type Department Care Team (Late st Contact Info) Description 05/25/2022 Abstract [facility] CHC ADULT DENTAL 505 [place], [place] [phone] Dental, Provider, DDS Social History Tobacco Use [...] Description 03/26/2025 2:00 PM EDT Clinical Support [facility] DIABETES/NUTRITION 230 [place], [place] [phone] Tamanna Mcintyre [address] 230 [place] [address] documented as of this encounter Procedures Procedure [...] on filedocumented in this encounter Care Teams Grey Stock Recorder Relationship Specialty Start Date End Date Jennie Murray MD 230 [place] [address] PCP - General Family Medicine 06/23/13 03/16/24 Petra Wiley FNP 230 [place] [address] PCP - General Family Medicine 03/17/24 Willard Waters 575 [facility] 402 [place], [place] Rheumatology 05/17/24 Victoria Sumaya 11 [facility] 3rd [place] [address] Gastroenterology 05/17/24 Juan Sandra MD 575 [place] [address] Hematology and Oncology 05/17/24 Brigid Gyu NP [address] [facility] [address] [place] [address] Urology 05/17/24 Vicente Mooney MD [address] [place] [address] [address] [place] [address] Obstetrics and Gynecology 05/17/24 Beth Rai MD [address] [place] [address] 140 [place] [address] Neurology 05/17/24 Michell Espinoza 11 [facility] 3rd [place] [address] Cardiology 05/17/24 Shelia Zheng Events AssociateRisk Management Consultant 09/26/23 documented as of this encounter
--- OUTSIDE RECORDS SUMMARY | 2025-03-03 16:26 | XMS_ITS | Encounter Summary ---
Author Organization [email or web address] Address [address] [facility] [address] 7t [place] [address] Care Team Providers Care Shear Grinder Operator Name Role Phone Petra Wiley OUTSIDE PARTS SALESMAN Primary Care Provider Willard Waters Unavailable [phone] September Unavailable Juan Sandra MD Unavailable [phone] Brigid Guy NP Unavailable Vicente Mooney MD Unavailable Beth Rai MD Unavailable Michell Espinoza Unavailable Encounter Details Date Type Department Care Team (Late st Contact Info) Description 12/21/2024 Orders Only [facility] MEDICINE 230 [place], [place] [phone] Jailene Vitale CNM 230 [place], [place] [phone] Social History Tobacco Use Types Packs/Day Years [...] 2:00 PM EDT Clinical Support [facility] DIABETES/NUTRITION 230 [place] [address] 230 [place] [address] documented as of this encounter Procedures Procedure Name Priority Date/Time Associated Diagnosis Comments PAP SMEAR Routine 10/06/2024 12:00 AM EDT documented in this encounter Results * Pap Smear (10/06/2024 12:00 AM EDT) Swab us Vicente Mooney MD LAB CYTOLOGY ORDERABLES Final Re sult [facility] 575 [place] [address] [phone] documented in this encounter Visit Diagnoses Not on filedocumented in this encounter Additional Health Concerns Assessment Noted Time PHQ-9 Depression Total Score: 8 11/26/19 25 5:52 PM EDT documented as of this encounter Care Teams Shear Grinder Operator Relationship Specialty Start Date End Date Petra Wiley FNP 230 [place] [address] PCP - General Family Medicine 03/17/24 Willard Waters [address] [place] [address] Rheumatology 05/17/24KesslerSeptember 11 [facility] 3rd [place] [address] Gastroenterology 05/17/24 Juan Sandra MD [address] [place] [address] Hematology and Oncology 05/17/24 Brigid Guy NP 10 [facility] [address] [place] [address] Urology 05/17/24 Vicente Mooney MD [address] [place] [address] [address] [place] [address] Obstetrics and Gynecology 05/17/24 Beth Rai MD [address] [place] [address] 140 [place] [address] Neurology 05/17/24 Michell Espinoza 11 [facility] 3rd [place] [address] Cardiology 05/17/24 Shelia Zheng LoadmasterExcavation Laborer 09/26/23 documented as of this encounter
--- OUTSIDE RECORDS SUMMARY | 2025-03-03 16:26 | XMS_ITS | Encounter Summary ---
Author Organization [employer] Address 75 [facility] 7t [place] [address] Care Team Providers Care Safety Supervisor Name Role Phone Petra Wiley ORACLE ARCHITECT Primary Care Provider Willard Waters Unavailable [phone] September Unavailable Juan Sandra MD Unavailable [phone] Brigid Guy NP Unavailable Vicente Mooney MD Unavailable Beth Rai MD Unavailable Michell Espinoza Unavailable Encounter Details Date Type Department Care Team (Late st Contact Info) Description 02/01/2025 Orders Only [facility] 230 [place], [place] [phone] Provider, MD Addie Social History Tobacco Use [...] Description 03/26/2025 2:00 PM EDT Clinical Support [facility] DIABETES/NUTRITION 230 [place] [address] 230 [place] [address] documented as of this encounter Procedures Procedure [...] documented as of this encounter Care Teams Safety Supervisor Relationship Specialty Start Date End Date Petra Wiley FNP 230 [place] [address] PCP - General Family Medicine 03/17/24 Willard Waters [address] [place] [address] Rheumatology 05/17/24 Sumaya Kessler 11 [facility] 3rd [place] [address] Gastroenterology 05/17/24 Juan Sandra MD [address] [place] [address] Hematology and Oncology 05/17/24 Brigid Guy NP 10 [facility] [address] [place] [address] Urology 05/17/24 Vicente Mooney MD [address] [place] [address] [address] [place] [address] Obstetrics and Gynecology 05/17/24 Beth Rai MD [address] [place] [address] 140 [place] [address] Neurology 05/17/24 Michell Espinoza 11 [facility] 3rd [place] [address] Cardiology 05/17/24 Shelia Zheng Rn LiaisonFood Service Representative 09/26/23 documented as of this encounter
--- OUTSIDE RECORDS SUMMARY | 2025-03-03 16:26 | XMS_ITS | Encounter Summary ---
Author Organization [employer] Address 75 [facility] 7t [place] [address] Care Team Providers Care Pipelaying Fitter Name Role Phone Jennie Murray MD Primary Care Provider [phone] Petra Wiley Primary Care Provider Willard Waters Unavailable [phone] Victoria Sumaya Unavailable Juan Sandra MD Unavailable [phone] Brigid Guy NP Unavailable Vicente Mooney MD Unavailable Beth Rai MD Unavailable Michell Espinoza Unavailable Reason for Visit * Reason Onset Date Comments medication 09/19/2022 Encounter Details Date Type Department Care Team (Late st Contact Info) Description 09/19/2022 Telephone [facility] ADULT DENTAL [address] [place], [place] [phone] Venkat Barreto DDS 230 [place], [place] [phone] medication Social History Tobacco Use Types Packs/Day [...] EDT Script was sent for Augementin to [facility] in [place]. Patient went in to fiber picker script and they stated there was nothing there. Contacted [facility] and they stated that nationwide there was a shut down on their system for about 3 hours so it doesn't look like they received it. Can it be resent for patient? documented in this encounter Plan of Treatment Upcoming Encounters Date Type Department Care Team (Late st Contact Info) Description 03/26/2025 2:00 PM EDT Clinical Support [facility] DIABETES/NUTRITION 230 [place] [address] Tamanna Mcintyre, ANGELINA 230 [place] [address] documented as of this encounter Visit Diagnoses Not on filedocumented in this encounter Additional Health Concerns Assessment Noted Time PHQ-9 Depression Total Score: 0 07/04/19 23 3:01 PM EST documented as of this encounter Care Teams Pipelaying Fitter Relationship Specialty Start Date End Date Jennie Murray MD [address] [place] [address] PCP - General Family Medicine 06/23/13 03/16/24 Petra Wiley FNP 230 [place] [address] PCP - General Family Medicine 03/17/[address] [facility] 402 [place], [place] Rheumatology 05/17/24 Sumaya Kessler [address] 3rd [place] [address] Gastroenterology 05/17/24 Juan Sandra MD 575 [place] [address] Hematology and Oncology 05/17/24 Brigid Guy NP [address] [place] [address] Urology 05/17/24 Vicente Mooney MD [address] [place] [address] Obstetrics and Gynecology 05/17/24 Beth Rai MD [address] [facility] 140 [place] [address] Neurology 05/17/24 Michell Espinoza [address] 3rd [place] [address] Cardiology 05/17/24 Shelia Zheng Senior Analyst ProgrammerDelivery Room Clerk 09/26/23 documented as of this encounter
--- OUTSIDE RECORDS SUMMARY | 2025-03-03 16:26 | XMS_ITS | Encounter Summary ---
Author Organization [employer] Address 75 [facility] 7t [place] [address] Care Team Providers Care Production Underwriter Name Role Phone Petra Wiley CUSTOMS OPENER VERIFIER PACKER Primary Care Provider Willard Waters Unavailable [phone] September Unavailable Juan Sandra MD Unavailable [phone] Brigid Guy NP Unavailable Vicente Mooney MD Unavailable Beth Rai MD Unavailable Michell Espinoza Unavailable Reason for Visit * Reason Comments Med Refill Encounter Details Date Type Department Care Team ([facility] st Contact Info) Description 12/03/2024 Refill [facility] CHC MED & PEDS 505 [place], [place] [phone] Petra Wiley FNP 505 [place], [place] [phone] Fibromyalgia Social History Tobacco Use Types Packs/Day [...] 03/26/2025 2:00 PM EDT Clinical Support [facility] DIABETES/NUTRITION 230 [place] [address] [place] [address] documented as of this encounter Visit Diagnoses Diagnosis Fibromyalgia Unspecified myalgia and myositis documented in this encounter Additional Health Concerns Assessment Noted Time PHQ-9 Depression Total Score: 8 11/26/19 25 5:52 PM EDT documented as of this encounter Care Teams Production Underwriter Relationship Specialty Start Date End Date Petra Wiley FNP 230 [place] [address] PCP - General Family Medicine 03/17/24 Willard Waters 575 [facility] 402 [place], [place] Rheumatology 05/17/24 Sumaya Kessler [address] 3rd [place] [address] Gastroenterology 05/17/24 Juan Sandra MD 575 [place] [address] Hematology and Oncology 05/17/24 Brigid Guy NP [address] [place] [address] Urology 05/17/24 Vicente Mooney MD [address] [place] [address] [address] [place] [address] Obstetrics and Gynecology 05/17/24 Beth Rai MD [address] [place] [address] 140 [place] [address] Neurology 05/17/24 Michell Espinoza 11 [facility] 3rd [place] [address] Cardiology 05/17/24 Shelia Zheng Network DirectorFinancial Reporting Analyst 09/26/23 documented as of this encounter
--- OUTSIDE RECORDS SUMMARY | 2025-03-03 16:26 | XMS_ITS | Encounter Summary ---
Author Organization [employer] Address 75 [facility] 7t [place] [address] Care Team Providers Care Hip Hop Artist Name Role Phone Petra Wiley YARN WEIGHER Primary Care Provider [phone] Willard Waters Unavailable [phone] September Unavailable Juan Sandra MD Unavailable [phone] Brigid Guy NP Unavailable Vicente Mooney MD Unavailable Beth Rai MD Unavailable [phone] Michell Espinoza Unavailable Encounter Details Date Type Department Care Team (Late st Contact Info) Description 03/03/2025 Orders Only [facility] CHC MED & PEDS 505 [place], [place] [phone] Petra Wiley FNP 505 [place], [place] [phone] Social History Tobacco Use Types Packs/Day Years [...] Support [facility] DIABETES/NUTRITION 230 [place] [address] [place] [address] documented as of this encounter Procedures Procedure Name Priority Date/Time Associated Diagnosis Comments BI US BREAST LIMITED RIGHT Routine 03/03/2025 1:20 PM EDT documented in this encounter Results * BI US Breast Limited Right (03/03/2025 1:20 PM EDT) Anatomical Region Laterality Modality Breast Right Ultrasound 03/03/2025 1:20 PM EDT Narrative 03/03/2025 3:31 PM EDT [facility] [address] [place], [place] [address] Ultrasound Report Signed Patient: Ambika Mcdermott MR#: [id number] : 1985 Acct:[id number] Age/Sex: 39 / F ADM Date: 03/03/25 Loc: HO.MAMMO Attending Dr: Petra LUCERO Ordering Physician: Petra Wiley Date of Service: 03/03/25 Procedure(s): US breast RT limited mamm only Accession Number(s): [id number] cc: Petra Wiley Reason for Exam: RT BR 6MO F/U DESITY EXAMINATION: US DIAGNOSTIC ULTRASOUND BREAST, RIGHT CLINICAL INFORMATION: 6 month follow-up right breast hypoechoic solid mass 3:00 4 cm from the nipple.. The patient has a history of multiple previously biopsied fibroadenomas. COMPARISON: Comparison is made with relevant prior imaging. TECHNIQUE: Ultrasound of the breast is performed with real-time pablo scale imaging and color Doppler. FINDINGS: Targeted color Doppler ultrasound scanning in the right breast at 3:00 4 7 m from nipple demonstrates a hypoechoic oval parallel circumscribed solid mass measuring 21 x 13 x 17 mm overall not significantly changed from prior given differences in measuring technique previously measured 19 x 19 x 12 mm. Results are discussed with the patient at time of visit. US/US breast RT limited mamm only IMPRESSION: Hypoechoic oval circumscribed solid mass at 3:00 4 cm from the nipple in the right breast, this area is slightly increased in size but given differences in measuring technique is not significantly changed. Ultrasound-guided core needle biopsy was offered to the patient however patient prefers six-month follow-up at this time. Recommend 6 month follow-up for further evaluation of stability. ASSESSMENT: BI-RADS 3: Probably Benign RECOMMENDATION: Diagnostic mammography in 6 months. This patient's information was entered into a reminder system with a target due date for their next mammogram. Electronically signed by: Eneida Núñez DO 03/03/2025 03:28 PM EDT Dictated By: Eneida Núñez DO Signed By: <Electronically signed by Eneida Núñez DO in OV> 03/03/25 1528 DD/ 1320 TD/TT: 03/03/25 1340 Technical Support Associate: Procedure Note Donotuseinterpreter, Image - 03/03/2025 [facility] [address] [place], [place] [address] Ultrasound Report Signed Patient: Ambika McdermottMR#: [id number] : 1985Acct:[id number] Age/Sex: 39 / FADM Date: 03/03/25 Loc: HO.MAMMO Attending Dr: Petra Wiley YARN WEIGHER Ordering Physician: Petra Wiley Date of Service: 03/03/25 Procedure(s): US breast RT limited mamm only Accession Number(s): [id number] cc: Petra Wiley Reason for Exam: RT BR 6MO F/U DESITY EXAMINATION: US DIAGNOSTIC ULTRASOUND BREAST, RIGHT CLINICAL INFORMATION: 6 month follow-up right breast hypoechoic solid mass 3:00 4 cm from the nipple.. The patient has a history of multiple previously biopsied fibroadenomas. COMPARISON: Comparison is made with relevant prior imaging. TECHNIQUE: Ultrasound of the breast is performed with real-time pablo scale imaging and color Doppler. FINDINGS: Targeted color Doppler ultrasound scanning in the right breast at 3:00 4 7 m from nipple demonstrates a hypoechoic oval parallel circumscribed solid mass measuring 21 x 13 x 17 mm overall not significantly changed from prior given differences in measuring technique previously measured 19 x 19 x 12 mm. Results are discussed with the patient at time of visit. US/US breast RT limited mamm only IMPRESSION: Hypoechoic oval circumscribed solid mass at 3:00 4 cm from the nipple in the right breast, this area is slightly increased in size but given differences in measuring technique is not significantly changed. Ultrasound-guided core needle biopsy was offered to the patient however patient prefers six-month follow-up at this time. Recommend 6 month follow-up for further evaluation of stability. ASSESSMENT: BI-RADS 3: Probably Benign RECOMMENDATION: Diagnostic mammography in 6 months. This patient's information was entered into a reminder system with a target due date for their next mammogram. Electronically signed by: Eneida úNñez DO 03/03/2025 03:28 PM EDT Dictated By: Tyminski,Eneida DO Signed By: <Electronically signed by Eneida Núñez, DO in OV> 03/03/25 1528 DD/ 1320 TD/TT: 03/03/25 1340 Technical Support Associate: us Petra LUCERO IMG US PROCEDURES Edited Resul t - Final documented in this encounter Visit Diagnoses Not on filedocumented in this encounter Additional Health Concerns Assessment Noted Time PHQ-9 Depression Total Score: 8 11/26/19 25 5:52 PM EDT documented as of this encounter Care Teams Hip Hop Artist Relationship Specialty Start Date End Date Petra Wiley FNP 230 [place] [address] PCP - General Family Medicine 03/17/24 Willard Waters [address] [place] [address] Rheumatology 05/17/[address] [place] [address] 3[address] [place] [address] Gastroenterology 05/17/24 Juan Sandra MD [address] [place] [address] Hematology and Oncology 05/17/24 Brigid Guy NP 10 [facility] [address] [place] [address] Urology 05/17/24 Vicente Mooney MD [address] [place] [address] [address] [place] [address] Obstetrics and Gynecology 05/17/24 Beth Rai MD [address] [place] [address] 140 [place] [address] Neurology 05/17/24 Michell Espinoza [address] [place] [address] 3rd [place] [address] Cardiology 05/17/24 Shelia Zheng Reject Opener And FillerBusiness Integration Manager 09/26/23 documented as of this encounter
--- OUTSIDE RECORDS SUMMARY | 2025-03-03 16:26 | XMS_ITS | Encounter Summary ---
Author Organization [employer] Address 75 [facility] 7t [place] [address] Care Team Providers Care Manager Product Design Name Role Phone Petra Wiley AIRCRAFT FUELER Primary Care Provider [phone] Willard Waters Unavailable [phone] September Unavailable Juan Sandra MD Unavailable [phone] Brigid Guy NP Unavailable Vicente Mooney MD Unavailable Beth Rai MD Unavailable [phone] Michell Espinoza Unavailable Reason for Visit * Reason Comments Med Refill Encounter Details Date Type Department Care Team ([facility] st Contact Info) Description 01/07/2025 Refill [facility] CHC MED & PEDS [address] [place], [place] [phone] Petra Wiley FNP [address] [place], [place] [id number] Fibromyalgia Social History Tobacco Use Types Packs/Day [...] Support [facility] DIABETES/NUTRITION [address] [place] [address] [place] [address] documented as of this encounter Visit Diagnoses Diagnosis Fibromyalgia Unspecified myalgia and myositis documented in this encounter Additional Health Concerns Assessment Noted Time PHQ-9 Depression Total Score: 8 11/26/19 25 5:52 PM EDT documented as of this encounter Care Teams Manager Product Design Relationship Specialty Start Date End Date Petra Wiley FNP [address] [place] [address] PCP - General Family Medicine 03/17/24 Willard Waters [facility] [address] [place], [place] Rheumatology 05/17/24 Sumaya Kessler [address] 3rd [place] [address] Gastroenterology 05/17/24 Juan Sandra MD [address] [place] [address] Hematology and Oncology 05/17/24 Brigid Guy NP [address] [place] [address] Urology 05/17/24 Vicente Mooney MD [address] [place] [address] [address] [place] [address] Obstetrics and Gynecology 05/17/24 Beth Rai MD [address] [place] [address] 140 [place] [address] Neurology 05/17/24 Michell Espinoza 11 [facility] 3rd [place] [address] Cardiology 05/17/24 Shelia Zheng Chain DyerFinancial Management 09/26/23 documented as of this encounter
--- OUTSIDE RECORDS SUMMARY | 2025-03-03 16:26 | XMS_ITS | Encounter Summary ---
Author Organization [facility] Address [address] [place] [address] Care Team Providers Care Claim Technician Name Role Phone Petra Wiley Primary Care Provider [phone] Encounter Details Date Type Department Care Team (Late st Contact Info) Description 12/31/2024 Results Follow-Up [facility] [address] [place], [place] [phone] Computer Technology Teacher: Mary Senior LPN Social History Tobacco Use [...] 03/04/2025 3:00 PM EDT Office Visit [facility] Women's Care [address] [place] [address] Computer Technology Teacher: Kate Castaneda [facility] SD [address] [place] [address] 04/19/2025 1:20 PM EST Lab [facility] ACC Draw Site Fifth Floor [address] [place] [address] 04/19/2025 2:20 PM EST Follow-Up [facility] Building BMT Clinic [address] [place] [address] Shavon Robesron NP [address] [place], [place] [phone] documented as of this encounter Visit Diagnoses Not on filedocumented in this encounter Care Teams Claim Technician Relationship Specialty Start Date End Date Petra Wiley [address] [place] [address] PCP - General Family Medicine 03/19/24 documented as of this encounter
--- OUTSIDE RECORDS SUMMARY | 2025-03-03 16:26 | XMS_ITS | Encounter Summary ---
Author Organization [employer] Address 75 [facility] 7t [place] [address] Care Team Providers Care Dot Etcher Name Role Phone Jennie Murray MD Primary Care Provider Petra Wiley Primary Care Provider [phone] Willard Waters Unavailable [phone] VictoriaSeptember Unavailable Juan Sandra MD Unavailable [phone] Brigid Guy NP Unavailable Vicente Mooney MD Unavailable Beth Rai MD Unavailable Michell Espinoza Unavailable Reason for Visit * Reason Onset Date Comments Appointment Request 12/25/2023 Encounter Details Date Type Department Care Team (Late st Contact Info) Description 12/25/2023 Telephone [facility] MEDICINE [address] [place], [place] [phone] Jennie Murray MD [address] [place], [place] [phone] Appointment Request Social History Tobacco Use Types [...] 12/25/2023 1:07 PM EDT Tc from Patrice, director of career services with [facility], calling to schedule appt for pt. Pt is awaiting transfer pt appt with Dr. Wiley in which publicity writer attempted to schedule but found no availability. Please contact Patrice at [phone]. documented in this encounter Plan of Treatment Upcoming Encounters Date Type Department Care Team (Late st Contact Info) Description 03/26/2025 2:00 PM EDT Clinical Support [facility] DIABETES/NUTRITION [address] [place] [address] [place], [place] [phone] documented as of this encounter Visit Diagnoses Not on filedocumented in this encounter Additional Health Concerns Assessment Noted Time PHQ-9 Depression Total Score: 0 07/04/19 23 3:01 PM EST documented as of this encounter Care Teams Dot Etcher Relationship Specialty Start Date End Date Jennie Murray MD [address] [place] [address] PCP - General Family Medicine 06/23/13 03/16/24 Petra Wiley FNP [address] [place] [address] PCP - General Family Medicine 03/17/24 Willard Waters [address] [place] [address] Rheumatology 05/17/24KesslerSeptember 11 [facility] 3rd [place] [address] Gastroenterology 05/17/24 Juan Sandra MD [address] [place] [address] Hematology and Oncology 05/17/24 Brigid Guy NP [address] [place] [address] Urology 05/17/24 Vicente Mooney MD [address] [place] [address] [address] [place] [address] Obstetrics and Gynecology 05/17/24 Beth Rai MD [address] [place] [address] 140 [place] [address] Neurology 05/17/24 Michell Espinoza 11 [facility] 3rd [place] [address] Cardiology 05/17/24 [facility] Lidding Machine OperatorHome Health Rn 09/26/23 documented as of this encounter
--- OUTSIDE RECORDS SUMMARY | 2025-03-03 16:26 | XMS_ITS | Encounter Summary ---
Author Organization [employer] Address 75 [facility] 7t [place] [address] Care Team Providers Care Rn Heart Name Role Phone Jennie Murray MD Primary Care Provider [phone] Petra Wiley Primary Care Provider Willard Waters Unavailable [phone] September Unavailable Juan Sandra MD Unavailable [phone] Brigid Guy NP Unavailable Vicente Mooney MD Unavailable Beth Rai MD Unavailable [phone] Michell Espinoza Unavailable Encounter Details Date Type Department Care Team (Late st Contact Info) Description 07/26/2022 Orders Only [facility] MEDICINE [address] [place] [address] Nelson Medrano MD [address] [place] [phone] Chronic idiopathic constipation (Primary Dx) Social History [...] 2:00 PM EDT Clinical Support [facility] DIABETES/NUTRITION [address] [place] [address] [place] [address] documented as of this encounter Visit Diagnoses Diagnosis Chronic idiopathic constipation- Primary Unspecified constipation documented in this encounter Additional Health Concerns Assessment Noted Time PHQ-9 Depression Total Score: 0 07/04/19 23 3:01 PM EST documented as of this encounter Care Teams Rn Heart Relationship Specialty Start Date End Date Jennie Murray MD [address] [place] [address] PCP - General Family Medicine 06/23/13 03/16/24 Petra Wiley FNP [address] [place] [address] PCP - General Family Medicine 03/17/24 Willard Waters [address] [place] [address] Rheumatology 05/17/24September [address] 3rd [place] [address] Gastroenterology 05/17/24 Juan Sandra MD 575 [place] [address] Hematology and Oncology 05/17/24 Brigid Guy NP [address] [place] [address] Urology 05/17/24 Vicente Mooney MD [address] [place] [address] [address] [place] [address] Obstetrics and Gynecology 05/17/24 Beth Rai MD [address] [place] [address] Dr Rangel [address] [place] [address] Neurology 05/17/24 Michell Espinoza [address] [facility] [address] 3rd [place] [address] Cardiology 05/17/24 Shelia Zheng Explosive SpecialistLaser Beam Cutter 09/26/23 documented as of this encounter
--- OUTSIDE RECORDS SUMMARY | 2025-03-03 16:26 | XMS_ITS | Encounter Summary ---
Author Organization [employer] Address 75 [facility] 7t [place] [address] Care Team Providers Care Explosive Ordnance Technician Name Role Phone Petra Wiley FACILITIES TECHNICIAN Primary Care Provider Willard Waters Unavailable [phone] September Unavailable Juan Sandra MD Unavailable [phone] Brigid Guy NP Unavailable Vicente Mooney MD Unavailable Beth Rai MD Unavailable Michell Espinoza Unavailable Encounter Details Date Type Department Care Team (Late st Contact Info) Description 02/26/2025 Results Follow-Up [facility] CHC MED & PEDS [address] [place], [place] [phone] Petra Wiley FNP 505 [place], [place] [phone] CBC auto differential, Type and screen, Ferritin, Additional followed-up results: 2 Social History Tobacco Use Types Packs/Day Years [...] encounter Miscellaneous Notes * Telephone Encounter - Deepa Haddad RN - 02/26/2025 1:45 PM EDT TC to pt to review labs with [facility] habitat biologist. No answer. left instructing pt to return call to office or respond over MyChart * Telephone Encounter - Deepa Haddad RN - 02/26/2025 1:41 PM EDT Labs faxed to hem/onc provider documented in this encounter Plan of Treatment Upcoming Encounters Date Type Department Care Team (Late st Contact Info) Description 03/26/2025 2:00 PM EDT Clinical Support [facility] DIABETES/NUTRITION [address] [place] [address] [place] [address] documented as of this encounter Visit Diagnoses Not on filedocumented in this encounter Additional Health Concerns Assessment Noted Time PHQ-9 Depression Total Score: 8 11/26/19 25 5:52 PM EDT documented as of this encounter Care Teams Explosive Ordnance Technician Relationship Specialty Start Date End Date Petra Wiley FNP [address] [place] [address] PCP - General Family Medicine 03/17/24 Willard Waters [address] [place] [address] Rheumatology 05/17/24 Victoria Sumaya [address] [address] Gastroenterology 05/17/24 Juan Sandra MD [address] [place] [address] Hematology and Oncology 05/17/24 Brigid Guy NP [address] [place] [address] Urology 05/17/24 Vicente Mooney MD [address] [place] [address] [address] [place] [address] Obstetrics and Gynecology 05/17/24 Beth Rai MD [address] [place] [address] 140 [place] [address] Neurology 05/17/24 Michell Espinoza 11 [facility] 3rd [place] [address] Cardiology 05/17/24 Shelia Zheng Scaler PackerStorage Worker 09/26/23 documented as of this encounter
--- OUTSIDE RECORDS SUMMARY | 2025-03-03 16:26 | XMS_ITS | Encounter Summary ---
Author Organization [employer] Address 75 [facility] 7t [place] [address] Care Team Providers Care Accounting Coordinator Name Role Phone Jennie Murray MD Primary Care Provider [phone] Petra Wiley Primary Care Provider [phone] Willard Waters Unavailable [phone] Sumaya Kessler Unavailable Juan Sandra MD Unavailable [phone] Brigid Guy NP Unavailable Vicente Mooney MD Unavailable Beth Rai MD Unavailable [phone] Michell Espinoza Unavailable Reason for Visit * [...] (Late st Contact Info) Description 08/21/2022 Telephone [facility] ADULT DENTAL [address] [place] [address] Venkat Barreto DDS [address] [place] [address] Appointment (Ambika Anaya 1985 Patient [...] Description 03/26/2025 2:00 PM EDT Clinical Support [facility] DIABETES/NUTRITION [address] [place] [address] [place] [address] documented as of this encounter Visit Diagnoses Not on filedocumented in this encounter Additional Health Concerns Assessment Noted Time PHQ-9 Depression Total Score: 0 07/04/19 3:01 PM EST documented as of this encounter Care Teams Accounting Coordinator Relationship Specialty Start Date End Date Jennie Murray MD [address] [place] [address] PCP - General Family Medicine 06/23/13 03/16/24 Petra Wiley FNP [address] [place] [address] PCP - General Family Medicine 03/17/24 Willard Waters [address] [place] [address] Rheumatology 05/17/24 Victoria Sumaya 11 [facility] 3rd [place] [address] Gastroenterology 05/17/24 Juan Sandra MD [address] [place] [address] Hematology and Oncology 05/17/24 Brigid Guy NP [address] [facility] [place] [address] Urology 05/17/24 Vicente Mooney MD [address] [place] [address] [address] [place] [address] Obstetrics and Gynecology 05/17/24 Beth Rai MD [address] [place] [address] 140 [place] [address] Neurology 05/17/24 Michell Espinoza 11 [facility] 3rd [place] [address] Cardiology 05/17/24 [facility] TurnerAppeals Representative 09/26/23 documented as of this encounter
--- OUTSIDE RECORDS SUMMARY | 2025-03-03 16:26 | XMS_ITS | Clinical Summary ---
Author Organization [facility] Address [address] [place] [address] Care Team Providers Care Broommaker Name Role Phone Petra Wiley Primary Care Provider [phone] Allergies Active Allergy Reactions Criticality Noted Date [...] Type Department Care Team Description 02/23/2025 Documentation [facility] [address] [place] [address] Anneliese Mcfadden RN 02/09/2025 10:15 AM EDT Office Visit [facility] Dermatology Clinic 4th [address] [place] [address], [place] [address] Cytology Teacher: Breann Tang MD Raynaud's phenomenon without gangrene (Primary Dx) 01/18/2025 3:40 PM EDT Office Visit [facility] [address] [place] [address] Shavon Roberson NP Iron deficiency (Primary Dx) 12/31/2024 Results Follow-Up [facility] Rheumatology Clinic [address] [place] [address] Cytology Teacher: Mary Senior LPN 12/02/2024 Telephone [facility] Rhe[facility]ology [facility] [address] [place] [address] Cytology Teacher: Newton Rangel DO from Last 3 Months [...] Description 03/04/2025 3:00 PM EDT Office Visit [facility] [address] [phone] Cytology Teacher: Shasha Campso PA [address] [place] [address] 04/19/2025 1:20 PM EST Lab [facility] ACC Draw Site Fifth Floor [address] [place] [address] 04/19/2025 2:20 PM EST Follow-Up [facility] Building BMT Clinic [address] [place] [address] Shavon Roberson NP [address] [place] [address] Health Maintenance Due Date Last Done Comments [...] Years) Completed 05/13/2024 Procedures * Due to [place] state law, this organization might not be sharing negative HIV tests. Procedure Name Priority Date/Time Associated Diagnosis Comments LAB - SCANNED 02/24/2025 FERRITIN Routine 01/18/2025 4:51 PM EDT Iron [...] Last 3 Months Results * Due to [place] state law, this organization might not be sharing negative HIV tests. * LAB - SCANNED (02/24/2025) us Onbase Scan [facility] LAB HISTORICAL RESULTS Final Result * Iron Saturation (01/18/2025 4:51 PM EDT) Iron Saturation 30 20 - 50 % 6:03 PM EDT [facility] Iron 104 30 - 160 ug/dL 01/18/2025 6:03 PM EDT [facility] - Particle Code CL[facility] PATHOLOGY LABORATORY Transferrin 274 200 - 360 mg/dL 01/18/2025 6:03 PM EDT [facility] Particle [facility] Total Iron Binding Capacity 343 255 - 450 ug/dL 01/18/2025 6:03 PM EDT [facility] Blood Structure of peripheral vein / Unknown Venipuncture / Unknown 01/18/2025 4:51 PM EDT 01/18/2025 5:17 PM EDT Shavon Roberson NP LAB BLOOD ORDERABLES F inal Result [facility] [address] [place] [address], [place] * (ABNORMAL) CBC Auto Differential (01/18/2025 4:51 PM EDT) WBC 10.2 3.8 - 10.8 10*3/uL 01/18/2025 5:12 PM EDT [facility] RBC 4.67 3.80 - 5.10 10*6/uL 01/18/2025 5:12 PM EDT [facility] Hemoglobin 12.4 11.7 - 15.5 g/dL 01/18/2025 5:12 PM EDT [facility] Hematocrit 39.3 35.0 - 45.0 % 01/18/2025 5:12 PM EDT [facility] MCV 84.2 80.0 - 100.0 fL 01/18/2025 5:12 PM EDT [facility] MCH 26.6(L) 27.0 - 33.0 pg 01/18/2025 5:12 PM EDT [facility] MCHC 31.6(L) 32.0 - 36.0 g/dL 01/18/2025 5:12 PM EDT [facility] RDW 14.8 11.0 - 15.0 % 01/18/2025 5:12 PM EDT [facility] Platelets 264 140 - 400 10*3/uL 01/18/2025 5:12 PM EDT [facility] MPV 12.1 7.5 - 12.5 fL 01/18/2025 5:12 PM EDT [facility] Neutrophil % 68.8 % 01/18/2025 5:12 PM EDT [facility] Immature Grans % 0.2 0.0 - 0.9 % 01/18/2025 5:12 PM EDT [facility] Lymphocyte % 22.2 % 01/18/2025 5:12 PM EDT [facility] Monocyte % 6.5 % 01/18/2025 5:12 PM EDT [facility] Eosinophil % 1.7 % 01/18/2025 5:12 PM EDT [facility] Basophil % 0.6 % 01/18/2025 5:12 PM EDT [facility] Part[facility] Neutrophil # 7.04 1.50 - 7.80 10*3/uL 01/18/2025 5:12 PM EDT [facility] Immature Grans # <0.03 <=0.03 10*3/uL 01/18/2025 5:12 PM EDT [facility] Lymphocyte # 2.30 0.85 - 3.90 10*3/uL 01/18/2025 5:12 PM EDT [facility] Monocyte # 0.70 0.20 - 0.95 10*3/uL 01/18/2025 5:12 PM EDT [facility] Eosinophil # 0.20 0.02 - 0.50 10*3/uL 01/18/2025 5:12 PM EDT [facility] Basophil # 0.10 0.00 - 0.20 10*3/uL 01/18/2025 5:12 PM EDT [facility] nRBC % 0.0 /100 WBCs 01/18/2025 5:12 PM EDT [facility] nRBC # <0.01 <0.01 10*3/uL 01/18/2025 5:12 PM EDT [facility]ITALSharesVaultMA [facility] Total Neutrophil #, Preliminary 7.04 1.50 - 7.80 10*3/uL 01/18/2025 5:12 PM EDT [facility] Blood Structure of peripheral vein / Unknown Venipuncture / Unknown 01/18/2025 4:51 PM EDT 01/18/2025 5:07 PM EDT Shavon Roberson BUSINESS CASE ANALYST LAB BLOOD ORDERABLES F inal Result [facility] [address] [place] [address], [place] * Reticulocytes (01/18/2025 4:51 PM EDT) Pathologist [facility] Retic % 0.8 0.5 - 1.6 % 01/18/2025 5:12 PM EDT [facility] LAB[facility] Retic # 0.04 0.02 - 0.08 10*6/uL 01/18/2025 5:12 PM EDT [facility] LAB[facility] Blood Structure of peripheral vein / Unknown Venipuncture / Unknown 01/18/2025 4:51 PM EDT 01/18/2025 5:07 PM EDT [facility] BUSINESS CASE ANALYST LAB BLOOD ORDERABLES F inal Result Performing Organization Address City/[facility]/ZIP Co de Phone Number [facility] LABORATORY [address] [place] [address], [place] * (ABNORMAL) Lactate Dehydrogenase (01/18/2025 4:51 PM EDT) Pathologist [facility] LDH 247(H) 135 - 225 U/L 01/18/2025 5:40 PM EDT [facility] PATHOLOG[facility] LABORATORY Blood Structure of peripheral vein / Unknown Venipuncture / Unknown 01/18/2025 4:51 PM EDT 01/18/2025 5:07 PM EDT [facility] BUSINESS CASE ANALYST LAB BLOOD ORDERABLES F inal Result [facility] LAB[facility]ORY [address] [place] [address], [place] * Folate (01/18/2025 4:51 PM EDT) Pathologist [facility] Folate 16.4 4.8 - 24.2 ng/mL 01/18/2025 6:03 PM EDT [facility] LAB[facility] Blood Structure of peripheral vein / Unknown Venipuncture / Unknown 01/18/2025 4:51 PM EDT 01/18/2025 5:17 PM EDT [facility] BUSINESS CASE ANALYST LAB BLOOD ORDERABLES F inal Result [facility] [address] [place] [address], * Ferritin (01/18/2025 4:51 PM EDT) Pathologist [facility] Ferritin 110.0 11.0 - 306.0 ng/mL 01/18/2025 6:03 PM EDT [facility] Blood Structure of peripheral vein / Unknown Venipuncture / Unknown 01/18/2025 4:51 PM EDT 01/18/2025 5:17 PM EDT [facility] BUSINESS CASE ANALYST LAB BLOOD ORDERABLES F inal Result Performing Organization Address [facility]/ZIP Co de Phone Number [facility] [address] [place] [address], [place] * Vitamin B12 (01/18/2025 4:51 PM EDT) [facility] Vitamin B12 384 232 - 1,245 pg/mL 01/18/2025 6:03 PM EDT [facility] Blood Structure of peripheral vein / Unknown Venipuncture / Unknown 01/18/2025 4:51 PM EDT 01/18/2025 5:17 PM EDT [facility] BUSINESS CASE ANALYST LAB BLOOD ORDERABLES F inal Result Performing Organization Address City/[facility]/ZIP Co de Phone Number [facility] [address] [place] [address], * (ABNORMAL) Comprehensive Metabolic Panel (01/18/2025 4:51 PM EDT) Pathologist [facility] NA 138 135 - 145 mmol/L 01/18/2025 6:03 PM EDT [facility] K 3.9 3.5 - 5.3 mmol/L 01/18/2025 6:03 PM EDT [facility] Cl 104 98 - 107 mmol/L 01/18/2025 6:03 PM EDT [facility] CO2 22 22 - 32 mmol/L 01/18/2025 6:03 PM EDT [facility] Anion Gap 12 5 - 15 01/18/2025 6:03 PM EDT [facility] Glucose 120(H) 65 - 99 mg/dL 01/18/2025 6:03 PM EDT [facility] Creatinine 0.62 0.50 - 1.20 mg/dL 01/18/2025 6:03 PM EDT [facility] Calcium 9.4 8.6 - 10.5 mg/dL 01/18/2025 6:03 PM EDT [facility] Total Protein 7.3 6.0 - 8.0 g/dL 01/18/2025 6:03 PM EDT [facility] Albumin 4.3 3.5 - 5.2 g/dL 01/18/2025 6:03 PM EDT [facility] Bilirubin, Total 0.2 0.2 - 1.2 mg/dL 01/18/2025 6:03 PM EDT [facility] Alkaline Phosphatase 55 35 - 129 U/L 01/18/2025 6:03 PM EDT [facility] AST 19 10 - 40 U/L 01/18/2025 6:03 PM EDT [facility] ALT 13 10 - 40 U/L 01/18/2025 6:03 PM EDT [facility] BUN 9 7 - 23 mg/dL 01/18/2025 6:03 PM EDT [facility] eGFR >90 >=60 mL/min/1. 73m2 01/18/2025 6:03 PM EDT [facility] Comment:The estimated glomer ular filtration rate (eGFR) is calculated using a new formula developed by the NKF-ASN task force to eliminate race-based correction factors. The new formula uses serum/plasma creatinine, age, and gender to determine eGFR. A value below 60mls/min might indicate kidney disease and will be flagged. For additional information, see Cintron et al, Am J Kidney Dis. 2021;79(2):268- 288, A Unifying Approach for GFR estimation: Recommendations of the NKF-ASN Task Force on Reassessing the Inclusion of Race in Diagnosing Kidney Disease . Globulin, Total 3.0 2.1 - 4.2 g/dL 01/18/2025 6:03 PM EDT [facility] A/G Ratio 1.4(L) 1.5 - 3.0 01/18/2025 6:03 PM EDT [facility] Blood Structure of peripheral vein / Unknown Venipuncture / Unknown 01/18/2025 4:51 PM EDT 01/18/2025 5:17 PM EDT Shavon Roberson BUSINESS CASE ANALYST LAB BLOOD ORDERABLES F inal Result [facility] LAB[facility]ORY [address] [place] [address], [place] * MRI Hand Right without Contrast (12/02/2024 9:30 PM EDT) Anatomical Region Laterality Modality Upper Extremities, Hand Right Magnetic Resonance 12/02/2024 8:40 PM EDT Narrative 12/07/2024 8:13 AM EDT [facility] Accession Number: [id number] Patient Name: Ambika Mcdermott Date of : 1985 Date of Exam: 12-02-2024 Referring Physician: Newton Street [address] [place] [address] Exam: MR Hand (C-) CPT 42866 - Right Room Description: [place] Siem Verio 3.0T MRI RIGHT HAND HISTORY: Pain FINDINGS: No marrow edema. No osseous erosion or joint effusion. Flexor and extensor tendons of the hand are intact. No evidence of tenosynovitis. IMPRESSION: Normal examination of the hand Electronically Signed By: Giuliano Anthony MD Procedure Note Provider, Munoz - 12/07/2024 [facility] Accession Number: [id number] Patient Name: Ambika Mcdermott Date of : 1985 Date of Exam: 12-02-2024 Referring Physician: Newton Street [address] [place] [address] Exam: MR Hand (C-) CPT 43738 - Right Room Description: [place] Siem Verio 3.0T MRI RIGHT HAND HISTORY: Pain FINDINGS: [...] Final Result from Last 3 Months Insurance [facility] Care Teams Broommaker Relationship Specialty Start Date End Date Petra Wiley [address] [place] [address] [phone] PCP - General Family Medicine 03/19/24
--- OUTSIDE RECORDS SUMMARY | 2025-03-03 16:26 | XMS_ITS | Encounter Summary ---
Author Organization [employer] Address [address] [facility] [address] [address] 7t [place] [address] Care Team Providers Care Diver'S Tender Name Role Phone Petra Wiley EMD SPECIAL EDUCATION TEACHER Primary Care Provider Willard Waters Unavailable [phone] September Unavailable Juan Sandra MD Unavailable [phone] Brigid Guy NP Unavailable Vicente Mooney MD Unavailable Beth Rai MD Unavailable Michell Espinoza Unavailable Encounter Details Date Type Department Care Team (Late st Contact Info) Description 05/20/2024 Orders Only [facility] CHC MED & PEDS [address] [place], [place] [phone] Provider, MD Addie Social History Tobacco Use [...] Description 03/26/2025 2:00 PM EDT Clinical Support [facility] DIABETES/NUTRITION [address] [place] [address] [place] [address] documented as of this encounter Procedures Procedure [...] documented as of this encounter Care Teams Diver'S Tender Relationship Specialty Start Date End Date Petra Wiley FNP [address] [place] [address] PCP - General Family Medicine 03/17/24 Willard Waters [address] Rheumatology 05/17/24 Victoria Sumaya [address] 3rd [place] [address] Gastroenterology 05/17/24 Juan Sandra MD [address] [place] [address] Hematology and Oncology 05/17/24 Brigid Guy NP [address] [place] [address] Urology 05/17/24 Vicente Mooney MD [address] [place] [address] [address] [place] [address] Obstetrics and Gynecology 05/17/24 Beth Rai MD [address] [place] [address] [place] [address] Neurology 05/17/24 Michell Espinoza 11 [facility] 3rd [place] [address] Cardiology 05/17/24 Shelia Zheng Automatic Driller And ReamerOperating Theatre Technician 09/26/23 documented as of this encounter
--- OUTSIDE RECORDS SUMMARY | 2025-03-03 16:26 | XMS_ITS | Clinical Summary ---
Author Organization [facility] Address [address] [facility] [address] [place] [address] Phone Care Team Providers Care Top Stop Attacher Name Role Phone Karolina Murray MD Primary Care Provider [phone] Allergies Active Allergy Reactions Criticality Noted Date [...] topic Medical Devices Not on file Insurance [facility] [employer] [place] [id number] [facility] [place] [id number] [facility] C3 ACO [place] [facility] C3 ACO [facility] C3 ACO [facility] [place] [id number] [facility] C3 ACO [facility] [place] [id number] [facility] C3 ACO Care Teams Top Stop Attacher Relationship Specialty Start Date End Date Karolina Murray MD [address] [place], [place] [address] [phone] PCP - General Internal Medicine 09/12/21 Additional Source Comments The information contained in this document represents components of the legal health record. It is not the complete legal health record.[facility]
--- OUTSIDE RECORDS SUMMARY | 2025-03-03 16:26 | XMS_ITS | Encounter Summary ---
Author Organization [facility] Address [address] [place] [address] Care Team Providers Care Rail Transit Operator Name Role Phone Petra Wiley Primary Care Provider [phone] Encounter Details Date Type Department Care Team (Latest Contact Info) Description 06/26/2024 Transcribe Orders [facility] Physician Referral Services [address] [place] [address] Isaiaskiersten Petra [address] [place], [place] [phone] Subcutaneous mass of right upper extremity (Primary [...] Description 03/04/2025 3:00 PM EDT Office Visit [facility] [address] [place] [address] Heat Treat Supervisor: Shasha Campos PA [address] [place] [address] 04/19/2025 1:20 PM EST Lab [facility] ACC Draw Site Fifth Floor [address] [place] [address] 04/19/2025 2:20 PM EST Follow-Up [facility] BMT Clinic [address] [place] [address] Shavon Roberson NP [address] [place], [place] [phone] documented as of this encounter Visit Diagnoses Diagnosis Subcutaneous mass of right upper extremity- Primary Subcutaneous mass of abdominal wall documented in this encounter Care Teams Rail Transit Operator Relationship Specialty Start Date End Date Petra Wiley [address] [place] [address] PCP - General Family Medicine 03/19/24 documented as of this encounter
--- OUTSIDE RECORDS SUMMARY | 2025-03-03 16:26 | XMS_ITS | Encounter Summary ---
Author Organization [employer] Address [address] [facility] 7t [place] [address] Care Team Providers Care Memorandum Statement Clerk Name Role Phone Jennie Murray MD Primary Care Provider Petra Wiley Primary Care Provider Willard Waters Unavailable [phone] KesslerSeptember Unavailable Juan Sandra MD Unavailable [phone] Brigid Guy NP Unavailable Vicente Mooney MD Unavailable Beth Rai MD Unavailable Michell Espinoza Unavailable Encounter Details Date Type Department Care Team (Latest Contact Info) Description 09/03/2018 Abstract [facility] CONVERSIONS [...] Description 03/26/2025 2:00 PM EDT Clinical Support [facility] DIABETES/NUTRITION [address] [place], [place] [phone] Tamanna Mcintyre [address] [place], [place] [phone] documented as of this encounter Visit Diagnoses Not on filedocumented in this encounter Care Teams Memorandum Statement Clerk Relationship Specialty Start Date End Date Jennie Murray MD [address] [place] [address] PCP - General Family Medicine 06/23/13 03/16/24 Petra Wiley FNP [address] [place] [address] PCP - General Family Medicine 03/17/24 Willard Waters [address] [place] [address] Rheumatology 05/17/24KesslerSeptember 11 [facility] 3rd [place] [address] Gastroenterology 05/17/24 Juan Sandra MD [address] [place] [address] Hematology and Oncology 05/17/24 Brigid Guy NP [address] [place] [address] Urology 05/17/24 Vicente Mooney MD [address] [place] [address] [address] [place] [address] Obstetrics and Gynecology 05/17/24 Beth Rai MD [address] [place] [address] 140 [place] [address] Neurology 05/17/24 Michell Espinoza 11 [facility] [address]rd [place] [address] Cardiology 05/17/24 [facility] Family Day Care ProviderCompressed Gas Tester 09/26/23 documented as of this encounter
--- OUTSIDE RECORDS SUMMARY | 2025-03-03 16:26 | XMS_ITS | Encounter Summary ---
Author Organization [employer] Address [address] [facility] 7t [place] [address] Care Team Providers Care Mechanical Systems Design Engineer Name Role Phone Jennie Murray MD Primary Care Provider Petra Wiley Primary Care Provider Willard Waters Unavailable [phone] KesslerSeptember Unavailable Juan Sandra MD Unavailable [phone] Brigid Guy NP Unavailable Vicente Mooney MD Unavailable Beth Rai MD Unavailable Michell Espinoza Unavailable Encounter Details Date Type Department Care Team (Late st Contact Info) Description 05/18/2022 Orders Only [facility] MEDICINE [address] [place] [address] Jennie Murray MD [address] [place], [place] [phone] Acute foot pain, unspecified laterality (Primary Dx) [...] Description 03/26/2025 2:00 PM EDT Clinical Support [facility] DIABETES/NUTRITION [address] [place] [address] [place] [address] documented as of this encounter Visit Diagnoses Diagnosis Acute foot pain, unspecified laterality- Primary documented in this encounter Care Teams Mechanical Systems Design Engineer Relationship Specialty Start Date End Date Jennie Murray MD [address] [place] [address] PCP - General Family Medicine 06/23/13 03/16/24 Petra Wiley FNP [address] [place] [address] PCP - General Family Medicine 03/17/24 Willard Waters [address] [place] [address] Rheumatology 05/17/24September [address] 3rd [place] [address] Gastroenterology 05/17/24 Juan Sandra MD [address] [place] [address] Hematology and Oncology 05/17/24 Brigid Guy NP [address] [place] [address] Urology 05/17/24 Vicente Mooney MD [address] [place] [address] [address] [place] [address] Obstetrics and Gynecology 05/17/24 Beth Rai MD [address] [place] [address] [address] [place] [address] Neurology 05/17/24 Michell Espinoza [address] [facility] [address] 3rd [place] [address] Cardiology 05/17/24 Shelia Zheng Triage Register NurseUltrasound Sonographer 09/26/23 documented as of this encounter
--- OUTSIDE RECORDS SUMMARY | 2025-03-03 16:26 | XMS_ITS | Clinical Summary ---
Author Organization [employer] Address [address] [place] [address] Care Team Providers Care Nike Athlete Name Role Phone Petra Wiley TARIFF INSPECTOR Primary Care Provider [phone] Willard Waters Unavailable [phone] September Unavailable Juan Sandra MD Unavailable [phone] Brigid Guy NP Unavailable Vicente Mooney [...] D AL ACOSTARSE 08/07/19 22 Active Creon [id number] units capsule delayed-release particles capsule TOME ADRY [...] for 5 days. 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 Carton Marker Machine referral offered. Recommended to decrease soda and [...] bruising easily 03/17/2024 Overview (03/17/2024): Followed by [facility] Heme/Onc - Dr. Sandra Per consult Jan [...] HCT 35.5 (L) 02/24/2025 Following with [facility] Heme/Onc (previously at [facility]) Unable to tolerate PO iron supplements September 2024: received IV venofer 200mg weekly x 4 Assessment & Plan (02/24/2025 3:43 PM EDT): Venous hemoglobin resulted at 11.6, last 12.4 approx 1 months ago. Iron studies pending. Suspected cause: menorrhagia s/p IUD removal Plan: start provera 10mg TID x 5 days. Reviewed med safety and SE. Follow up with [facility] as scheduled on 03/04/25 ED/urgent care precautions [...] Has consulted with Surgery team in [facility] for consideration of excision. Per their [...] Has consulted with Surgery team in [facility] for consideration of excision. Per their consult Mar 2024, identified area has normal lobular fat, no discrete lipoma or nodules. Plan: conservative measures Abnormal uterine bleeding 12/27/2023 Overview (07/29/2024): Following with [facility] - Dr. Mooney EMB performed 04/14/24. Path: [...] Overview (05/17/2024): Lab Results Component Value Date [id number] 19.9 (L) 03/18/2024 [id number] 19 (A) 05/08/2023 - Cont Vit D [...] (02/01/2025): Pap: NILM, HPV neg 01/13/25 at [facility] Dental: [facility] Dental Last PE: 11/25/24 Hep B Immune: Mar 2024 Contraception: IUD (Mirena) placed 01/13/25 at [facility] Gastroesophageal reflux disease without esophagi tis 06/03/2023 Overview (06/03/2023): Followed by [facility] YASSINE Kessler APRN Continues famotidine and Dexliant through GI Irritable bowel syndrome with constipation 06/03 Overview (03/17/2024): Followed up [facility] YASSINE Kessler APRN Continues Bentyl TID Continues Bisacodyl 10mg nightly Dysphagia, oropharyngeal phase 06/03/2023 Overview (06/03/2023): Followed by [facility] YASSINE Kessler APRN Gastroparesis 06/03/2023 Overview (03/17/2024): Followed by [facility] GI Continues with the following medication regimen for multiple GI symptoms and conditions: Creon, famotidine, psyllium, dicyclomine, simethicone, and Dexliant Previous medications: carafate NURIA positive 06/03/2023 Overview (07/29/2024): Previous followed by [facility] Rheum - Dr. Waters May 2024: Established with [facility] Rheum - Dr. Street NURIA positive 2020: 1:160, anti dna, nicholas, ESR, CRP all wnl Disorder of sesamoid bone of foot 06/03/2023 Overview (06/03/2023): -Left lateral sesamoid stress fx identified Jul 2022 at [facility] -Plan for immobilization in short walking boot and follow up 6 weeks Assessment & Plan (06/03/2023 10:28 PM EST): Plan to request latest records from [facility] and follow up with PCP to discuss eligibility handicap jacob. Fibromyalgia 08/02/2022 Overview (11/04/2024): -Previously: Lyrica 75mg nightly through [facility] Physiatry/Rheum -Lyrica rx from PCP as of [...] Encounters Date Type Department Care Team Description 03/03/2025 Orders Only [facility] [address] [place] [address] Petra Wiley FNP 02/26/2025 Results Follow-Up [facility] [address] [place] [address] Petra Wiley FNP CBC auto differential, Type and screen, Ferritin, Additional followed-up results: 2 02/24/2025 10:45 AM EDT Office Visit [facility] [address] [place] [address] Petra Wiley, TARIFF INSPECTOR Iron deficiency anemia, unspecified iron deficiency anemia type (Primary Dx); Sore throat; Excessive bleeding in premenopausal period 02/24/2025 Travel 02/23/2025 Telephone [facility]INE [address] [place] [address] Petra Wiley FNP CHART PREP 02/23/2025 Travel 02/12/2025 Orders Only GENERIC EXTERNAL DATA DEPARTMENT Provider, Generic External Data 02/10/2025 Orders Only GENERIC EXTERNAL DATA DEPARTMENT Provider, Generic External Data 02/05/2025 Orders Only [facility] External Provider, [facility] 02/03/2025 Orders Only [facility] External Provider, [facility] 02/01/2025 3:30 PM EDT Office Visit [facility] [address] [place] [address] Petra Wiley FNP Injury of left knee, subsequent encounter (Primary Dx) 02/01/2025 Travel 02/01/2025 Orders Only [facility] [address] [place] [address] Addie Campbell MD 01/29/2025 Telephone [facility] [address] [place] [address] Petra Wiley FNP chart prep 01/26/2025 1:00 PM EDT Clinical Support [facility] DIABETES/NUTRITION [address] [place] [address] Tamanna Mcintyre, ANGELINA Class 1 obesity with serious comorbidity and body mass index (BMI) of 32.0 to 32.9 in adult, unspecified obesity type (Primary Dx) 01/26/2025 Travel 01/20/2025 Telephone [facility] [address] [place] [address] Petra Wiley FNP Appointment Confirmation 01/19/2025 Telephone [facility] [address] [place] [address] Jackie Bazzi MD 01/19/2025 Telephone [facility] MEDICINE [address] [place] [phone] Petra Wiley FNP ER Follow-up 01/17/2025 Orders Only [facility] External Provider, [facility] 01/15/2025 11:15 AM EDT Office Visit [facility] PEDS [address] [place] [address] Jackie Bazzi MD Appendix disease (Primary Dx); Fibromyalgia; Gastroesophageal reflux disease without esophagitis; Gastroparesis; Gastroesophageal reflux disease without esophagitis 01/15/2025 Results Follow-Up [address] [address] Sylvia Lemosn MD Bacterial Vaginosis, Chlamydia/N. Gonorrhoeae RNA, TMA, Urogenitial 01/15/2025 Travel 01/14/[address] [address] Petra Wiley FNP ER Follow-up 01/13/2025 Orders Only GENERIC EXTERNAL DATA DEPARTMENT Provider, Generic External Data 01/08/[address] [address] Petra Wiley FNP Appointment Request 01/08/2025 Orders Only GENERIC EXTERNAL DATA DEPARTMENT Provider, Generic External Data 01/07/2025 Refill [facility] [address] [place] [address] Petra Wiley FNP Fibromyalgia 12/25/2024 2:00 PM EDT Office Visit [facility] ADULT DENTAL [address] [place] [address] Venkat Barreto, DDS 12/21/2024 Orders Only [address] [address] Jailene Vitale CNM 12/17/2024 1:00 PM EDT Office Visit [address] [address] Jailene Vitale CNM Labial cyst (Primary Dx) 12/17/2024 Travel 12/16/2024 Orders Only GENERIC EXTERNAL DATA DEPARTMENT Provider, Generic External Data 12/16/[address] [address] Jailene Vitale CNM chart prep 12/11/2024 1:00 PM EDT Clinical Support [facility] DIABETES/NUTRITION [address] [place] [address] Class 1 obesity with body mass index (BMI) of 32.0 to 32.9 in adult, unspecified obesity type, unspecified whether serious comorbidity present (Primary Dx) 12/11/2024 Travel 12/03/2024 Refill [facility] [address] [place] [address] Petra Wiley FNP Fibromyalgia 12/02/2024 Telephone [facility] PED[facility] [address], [place] [phone] Petra Wiley FNP Referral 12/01/2024 3:30 PM EDT Clinical Support [facility] DIABETES/NUTRITION [address] [place] [address] Class 1 obesity with body mass index (BMI) of 32.0 to 32.9 in adult, unspecified obesity type, unspecified whether serious comorbidity present (Primary Dx) 12/01/2024 2:00 PM EDT Office Visit [facility] ADULT DENTAL [address] [place] [address] Venkat Barreto, DDS 12/01/2024 Travel from Last 3 Months Immunizations Immunization [...] Upcoming Encounters Date Type Department Care Team ([facility] st Contact Info) Description 03/26/2025 2:00 PM EDT Clinical Support [facility] DIABETES/NUTRITION [address] [place] [address] Tamanna Mcintyre, ANGELINA [address] [place] [address] Health Maintenance Due Date Last Done Comments HPV Vaccines (2 - 3-dose series) 03/27/2011 02/27/2011, 02/27/2011 Dental Oral Exam 06/27/2024 12/25/2023, 01/2024, 08/02/2022 Dental Prophylaxis 01/18/2025 07/20/2024, 0 12/25/2023, 06/25/2023, Additional history exists COVID-19 Vaccine ( season) 2025 Influenza Vaccine (#1) 2025 6, 03/22/2015, 03/06/2013 Dental X-Ray: Bitewings 07/21/2025 07/20/19, 12/25/2023, 06/24/2023, Additional history exists Dental X-Ray: Full Mouth 08/03/2025 08/02/2022 Diagnostic Breast Imaging 08/31/20252024, 09/01/2024, 09/01/2024, Additional history exists Mammogram 08/31/2025 03/03/2025, 08/15, 09/01/2024, Additional history exists DTaP/Tdap/Td Vaccines (1 - Tdap) 09/30/2025 10/14/2015 Postponed from 10/15/2015 (Other Medical Reasons) Depression Screening 11/25/2025 11/25/2024, 11/26/19 Family Planning (PISQ) 12/17/2025 12/17/2024 Alcohol/Substance Use Screening 02/24/2026 02/24/2025 Disability Screening 02/24/2026 02/24/2025 SDOH Screening 02/24/2026 02/24/2025 Tobacco Screening 02/24/2026 02/24/2025 Lipid Panel 11/26/2029 11/26/2024, 07/2023, 10/16/2023, Additional [...] LIMITED RIGHT Routine 03/03/2025 1:20 PM EDT IRON AND TOTAL IRON BINDING CAPACITY Routine [...] OFFICE VISIT Routine 12/01/2024 2:00 PM EDT LIPID PANEL, STANDARD Routine 11/26/2024 2:45 PM EDT Healthcare maintenance PROPHYLAXIS - ADULT Routine 07/20/2024 3 :00 [...] PM EDT Narrative 03/03/2025 3:31 PM EDT [facility] [address] [place] [address] Ultrasound Report Signed Patient: Ambika Mcdermott MR#: [id number] : 1985 Acct:[id number] Age/Sex: 39 / F ADM Date: 03/03/25 Loc: HO.MAMMO Attending Dr: Petra Wiley TARIFF INSPECTOR Ordering Physician: Petra Wiley Date of Service: 03/03/25 Procedure(s): US breast RT limited mamm only Accession Number(s): [id number] cc: Petra Wiley Reason for Exam: RT [...] Eneida Núñez DO 03/03/2025 03:28 PM EDT RP Dictated By: Eneida Núñez DO Signed By: <Electronically signed by Eneida Núñez DO in OV> 03/03/25 1528 DD/ 1320 TD/TT: 03/03/25 1340 Dynamics Ax Consultant: Procedure Note Donotuseinterpreter, Image - 03/03/2025 [facility] [address] [place] [address] Ultrasound Report Signed Patient: Ambika McdermottMR#: [id number] : 1985Acct:[id number] Age/Sex: 39 / FADM Date: 03/03/25 Loc: HO.MAMMO Attending Dr: Petra Wiley TARIFF INSPECTOR Ordering Physician: Petra Wiley Date of Service: 03/03/25 Procedure(s): US breast RT limited mamm only Accession Number(s): [id number] cc: Petra Wiley Reason for Exam: RT [...] 03/03/25 1528 DD/ 1320 TD/TT: 03/03/25 1340 Dynamics Ax Consultant: us Petra LUCERO IMG US PROCEDURES Edited Resul t - Final * (ABNORMAL) CBC auto differential (02/24/2025 2:06 PM EDT) Only the most recent of3 resultswithin the time period is included. White Blood Count 8.8 4.8 - 10.8 X10*3/uL [facility] Red Blood Count 4.27 4.20 - 5.50 X10*6/uL [facility] Hemoglobin 11.6(L) 12.0 - 16.0 g/dl [facility] Hematocrit 35.5(L) 37.0 - 47.0 % [facility] Mean Corpuscular Volume 83.1 80.0 - 98.0 fL [facility] Mean Corpuscular Hemoglobin 27.2 27.0 - 33.0 pg [facility] Mean Corpuscular HGB Conc 32.7 31.0 - 35.0 g/dl [facility] Red Cell Distribution Width 14.2 11.0 - 16.0 % [facility] Platelet Count 252 160 - 400 X10*3/uL [facility] Mean Platelet Volume 11.7 9.4 - 12.3 fL [facility] Neutrophils Percent Auto 67.8 45 - 73 % [facility] Imm Gran Pct Auto 0.3 0.0 - 0.4 % [facility] Lymphocytes Percent Auto 25.1 20 - 40 % [facility] Monocytes Percent Auto 5.0 2 - 11 % [facility] Eosinophils Percent Auto 1.3 0 - 4 % [facility] Basophils Percent Auto 0.5 0 - 2 % [facility] NRBC Pct Auto 0.0 0.0 - 0.2 /100WBC [facility] Neutrophils Absolute Auto 6.0 2.0 - 8.3 x10*3/uL [facility] Imm Gran Abs Auto 0.03 0.00 - 0.03 X10*3/uL [facility] Lymphocytes Absolute Auto 2.2 1.2 - 4.9 X10*3/uL [facility] Monocytes Absolute Auto 0.4 0.1 - 1.2 X10*3/uL [facility] Eosinophils Absolute Auto 0.1 0.0 - 0.4 X10*3/uL [facility] Basophils Absolute Auto 0.0 0.0 - 0.2 X10*3/uL [facility] NRBC Abs Auto 0.000 0.0 - 0.012 X10*3/uL [facility] Blood Venous blood specimen / Unknown 02/24/2025 2:06 PM EDT 02/24/2025 2:06 PM EDT us Petra Wiley TARIFF INSPECTOR LAB BLOOD ORDERABLES Final Res ult [facility] [address] [place] [phone] * Iron And Total Iron Binding Capacity (02/24/2025 2:06 PM EDT) Iron 70 30 - 160 mcg/dL [facility] Total Iron Binding Capacity 277 228 - 428 mcg/dL [facility] Percent Iron Saturation 25 15 - 50 % [facility] Unsaturated Iron Binding 207 ug/dL [facility] Blood Venous blood specimen / Unknown 02/24/2025 2:06 PM EDT 02/24/2025 2:06 PM EDT us Petra Wiley TARIFF INSPECTOR LAB BLOOD ORDERABLES Final Res ult Performing Organization Address [facility]/ZIP Co de Phone Number [facility] [address] [place] [phone] * Ferritin (02/24/2025 2:06 PM EDT) Pathologist [facility] Ferritin 49 10 - 122 ng/mL [facility] Blood Venous blood specimen / Unknown 02/24/2025 2:06 PM EDT 02/24/2025 2:06 PM EDT us Petra Wiley TARIFF INSPECTOR LAB BLOOD ORDERABLES Final Res ult Performing Organization Address [facility] Co de Phone Number [facility] [address] [place] [phone] * Type and screen (02/24/2025 2:05 PM EDT) Pathologist [facility] Blood Type OP [facility] Antibody Screen NEGATIVE [facility] Blood Venous blood specimen / Unknown 02/24/2025 2:05 PM EDT 02/24/2025 2:55 PM EDT us Petra Wiley [facility] LAB BLOOD BANK TEST ORDERABLES Final Result Performing Organization Address [facility] de Phone Number [facility] [address] [place] [phone] * POCT rapid strep A manually resulted (02/24/2025 12:20 PM EDT) [facility] Rapid Strep A Screen Negative Negative, None Detected QC Media Lot # [id number] Lot# Expiration Date [id number] Swab 02/24/2025 12:2 0 PM EDT us Petra Wiley TARIFF INSPECTOR POINT OF CARE TEST ENTER/EDIT ORDERABLES Final Result * (ABNORMAL) CBC (02/12/2025 4:14 PM EDT) White Blood Count 8.7 4.8 - 10.8 X10*3/uL [facility] Red Blood Count 4.64 4.20 - 5.50 X10*6/uL [facility] Hemoglobin 12.4 12.0 - 16.0 g/dl [facility] Hematocrit 38.8 37.0 - 47.0 % [facility] Mean Corpuscular Volume 83.6 80.0 - 98.0 fL [facility] Mean Corpuscular Hemoglobin 26.7(L) 27.0 - 33.0 pg [facility] Mean Corpuscular HGB Conc 32.0 31.0 - 35.0 g/dl [facility] Red Cell Distribution Width 14.2 11.0 - 16.0 % [facility] Platelet Count 255 160 - 400 X10*3/uL [facility] Mean Platelet Volume 11.9 9.4 - 12.3 fL [facility] NRBC Pct Auto 0.0 0.0 - 0.2 /100WBC [facility] NRBC Abs Auto 0.000 0.0 - 0.012 X10*3/uL [facility] 02/12/2025 4:14 PM EDT 02/12/2025 4:14 PM EDT us Generic External Data Provider LAB BLOOD ORDERAB LES Final Result [facility] [address] [place] [phone] * Cytopath-cell enhanced (02/10/2025 5:16 PM EDT) 02/10/2025 5:16 PM EDT 02/11/2025 6:45 AM EDT Narrative [facility] - 02/11/2025 10:10 AM EDT ----- ------- Name: Ambika Mcdermott Age/Sex: 39/F : 1985 Unit#: [id number] Attend Dr: Brigid Guy [facility] Re02/10/25 Status: [facility]: ----- ------- SPEC : [id number] RECD: 02/11/25 STATUS: [place] IQBAL NUM: [id number] BILLY: 02/10/25-6 [facility] [address]: Brgiid Guy [facility] ENTERED: 02/11/25-51 SP TYPE: Cytology OT DR: Jennie Murray MD ORDERED: Cyto-enhanced Diagnosis [...] developed and their performance characteristics determined by [facility]. They have not been cleared or approved by the U.S. Food and Drug Administration (FDA). However, the FDA has determined that such clearance or approval is not necessary. This laboratory is certified under the Clinical Laboratory Improvement Amendments of 1988 (CLIA) as qualified to perform high complexity clinical laboratory testing. Copies To: Brigid Guy [facility] [address] [place] [address] [address] [place] [address] [email or web address] Jennie Murray MD [address] [place] [address] CONTINUED ON NEXT PAGE ----- ------- Name: Lowell HéctorAmbika Age/Sex: 39/F : 1985 Unit#: [id number] Attend Dr: Brigid Guy [facility] Re02/10/25 Status: DEP REF Location: .LAB Disch: ----- ------- SPEC : [id number] RECD: 02/11/25 STATUS: [place] IQBAL NUM: [id number] BILLY: 02/10/25-17[address] [facility] [address]: Brigid Guy [facility] ENTERED: 02/11/25 SP TYPE: Cytology OTHR DR: Jennie Murray MD ORDERED: Cyto-enhanced ----- ------- Signed (signature on file) Trent Patel MD 02/11/25 1010 ----- ------- END OF REPORT us Generic External Data Provider LAB CYTOLOGY KEN MCDONALD Final Result Performing Organization Address City/State/[facility] Co de Phone Number [facility] [address] [place] [address] [phone] * US Pelvis Transvaginal (02/05/2025 1:43 PM EDT) Only the most recent of2 resultswithin the time period is included. Anatomical Region Laterality Modality Pelvis Ultrasound 02/05/2025 1:43 PM EDT Narrative 02/05/2025 2:29 PM EDT [address] [address] Ultrasound Report Signed Patient: Ambika Mcdermott MR#: [id number] : 1985 Acct:[id number] Age/Sex: 39 / F ADM Date: 02/05/25 Loc: .US Attending Dr: Vicente Mooney MD Ordering Physician: Vicente Mooney MD Date of Service: 02/05/25 Procedure(s): US pelvic and transvaginal Accession Number(s): [id number] cc: Petra Wiley; Vicente Mooney MD EXAMINATION: [...] 02/05/25 1426 DD/ 1343 TD/TT: 02/05/25 1355 Dynamics Ax Consultant: Procedure Note Donotuseinterpreter, Image - 02/05/[address] [address] Ultrasound Report Signed Patient: Ambika Mcdermott#: [id number] : 1985Acct:[id number] Age/Sex: 39 / FADM Date: 02/05/25 Loc: HO.US Attending Dr: Vicente Mooney MD Ordering Physician: Vicente Mooney MD Date of Service: 02/05/25 Procedure(s): US pelvic and transvaginal Accession Number(s): [id number] cc: Petra Wiley; Vicente Mooney MD EXAMINATION: [...] 02/05/25 1426 DD/ 1343 TD/TT: 02/05/25 1355 Dynamics Ax Consultant: us [facility] External Provider IMG US PROCEDURES Final Result * US Renal Complete (02/03/2025 1:34 PM EDT) Anatomical Region Laterality Modality Kidney Ultrasound 02/03/2025 1:34 PM EDT Narrative 02/03/2025 3:08 PM EDT [place] [address] Ultrasound Report Signed Patient: Ambika Mcdermott MR#: [id number] : 1985 Acct:[id number] Age/Sex: 39 / F ADM Date: 02/03/25 Loc: HO.US Attending Dr: Brigid PALMA Ordering Physician: Brigid Guy Date of Service: 02/03/25 Procedure(s): US renal BI Accession Number(s): [id number] cc: Brigid Guy; Petra Wiley EXAMINATION: US [...] 02/03/25 1505 DD/ 1334 TD/TT: 02/03/25 1344 Dynamics Ax Consultant: Procedure Note Donotuseinterpreter, Image - 02/03/[address] [address] Ultrasound Report Signed Patient: Ambika McdermottMR#: [id number] : 1985Acct:[id number] Age/Sex: 39 / FADM Date: 02/03/25 Loc: HO.US Attending Dr: Brigid BARRIGA Ordering Physician: Brigid Guy Date of Service: 02/03/25 Procedure(s): US renal BI Accession Number(s): [id number] cc: Brigid Guy-MITRA; Petra Wiley EXAMINATION: US RETROPERITONEAL LIMITED (RENAL [...] 02/03/25 1505 DD/ 1334 TD/TT: 02/03/25 1344 Dynamics Ax Consultant: us [facility] External Provider IMG US PROCEDURES Final Result * XR Elbow 3+ Views Left (01/17/2025 12:39 AM EDT) Anatomical Region Laterality Modality Upper Extremities, Elbow Left Radiogr aphic Imaging 01/17/2025 12:3 9 AM EDT Narrative 01/17/2025 12:40 AM EDT [address] [address] XRay Report Signed Patient: Ambika Mcdermott MR#: [id number] : 1985 Acct:[id number] Age/Sex: 39 / F ADM Date: 01/17/25 Loc: HO.ED Attending Dr: Ordering Physician: Generic ED Physician Date of Service: 01/16/25 Procedure(s): XR elbow LT min 3V Accession Number(s): [id number] cc: Generic ED Physician; Petra Wiley CLINICAL [...] MD in OV> 01/17/2538 DD/ TD/TT: 01/17/2538 Dynamics Ax Consultant: Procedure Note Donotuseinterpreter, Image - 01/17/[address] [address] XRay Report Signed Patient: Ambika McdermottMR#: [id number] : 1985Acct:[id number] Age/Sex: 39 / FADM Date: 01/17/25 Loc: HO.ED Attending Dr: Ordering Physician: Generic ED Physician Date of Service: 01/16/25 Procedure(s): XR elbow LT min 3V Accession Number(s): [id number] cc: Generic ED Physician; Petra Wiley CLINICAL [...] MD in OV> 01/17/2538 DD/ TD/TT: 01/17/2538 Dynamics Ax Consultant: [facility] External Provider IMG XR PROCEDURES Final Result * XR Knee 4+ Views Left (01/17/2025 12:26 AM EDT) Anatomical Region Laterality Modality Lower Extremities, Knee Left Radiogra phic Imaging 01/17/2025 12:2 6 AM EDT Narrative 01/17/2025 12:28 AM EDT [place] [address] XRay Report Signed Patient: Ambika Mcdermott MR#: [id number] : 1985 Acct:[id number] Age/Sex: 39 / F ADM Date: 01/17/25 Loc: .ED Attending Dr: Ordering Physician: Generic ED Physician Date of Service: 01/16/25 Procedure(s): XR knee LT 4V Accession Number(s): [id number] cc: Generic ED Physician; Petra Wiley CLINICAL [...] MD in OV> 01/17/2526 DD/ TD/TT: 01/17/2525 Dynamics Ax Consultant: Procedure Note Epi, Rain - 01/17/[address] [address] XRay Report Signed Patient: Ambika McdermottMR#: [id number] : 1985Acct:[id number] Age/Sex: 39 / FADM Date: 01/17/25 Loc: .ED Attending Dr: Ordering Physician: Generic ED Physician Date of Service: 01/16/25 Procedure(s): XR knee LT 4V Accession Number(s): [id number] cc: Generic ED Physician; Petra Wiley CLINICAL [...] MD in OV> 01/17/2526 DD/ TD/TT: 01/17/2525 Dynamics Ax Consultant: [facility] External Provider IMG XR PROCEDURES Final Result * XR Elbow 1-2 Views Left (01/16/2025 12:48 PM EDT) Anatomical Region Laterality Modality Upper Extremities, Elbow Left Radiogr aphic Imaging Historical Provider IMToyin XR PROCEDURES Final R esult * HPV DNA, Low/High Risk (01/13/2025 4:39 PM EDT) HPV High Risk Negative Negative [facility] HPV Genotype 16 Negative Negative [facility] HPV Genotype 18 Negative Negative [facility] Comment:HPV testing performe d at [facility] (CLIA#[id number]), [address] [place] [phone].Testing for HPV was performed using the Mirela [...] Provider LAB BLOOD ORDERAB LES Final Result [facility] [address] [place] [phone] * Pap Smear (01/13/2025 4:39 PM EDT) 01/13/2025 4:39 PM EDT 01/14/2025 1:27 PM EDT Narrative [facility] - 01/21/2025 10:02 AM EDT ----- ------- Name: Lowell Anaya,Ambika Age/Sex: 39/F : 1985 Unit#: [id number] Attend Dr: Vicente Mooney MD Re01/13/25 Status: DEP REF Location: [facility] Disch: ----- ------- SPEC : [id number] RECD: 01/14/25 STATUS: [place] IQBAL NUM: [id number] BILLY: 01/13/[address] [facility] [address]: Vicente Mooney MD ENTERED: 01/14/25 SP TYPE: Pap Smr OTHR DR: Petra Wiley TARIFF INSPECTOR ORDERED: Pap Smear Interpretation Satisfactory for evaluation. [...] and HPV testing will be performed at [facility] (CLIA #[id number]), [address] [place] [address]. Testing for HPV was performed using the [...] detected. All professional services are performed by [facility] ([address] [place] [address], [place] [address]; ; CLIA #[id number]). The PAP Test is a screening procedure with the inherent possibility of both false negative and false positive results. Results should be interpreted in the context of historic and current clinical findings. Reliability of the PAP Test is enhanced by performing the test on a regular repetitive basis. CONTINUED ON NEXT PAGE ----- ------- Name: Ambika Mcdermott Age/Sex: 39/F : 1985 Unit#: [id number] Attend Dr: Vicente Mooney MD Re01/13/25 Status: DEP REF Location: [facility] Disch: ----- ------- SPEC : [id number] RECD: 01/14/25-1327 STATUS: [place] IQBAL NUM: [id number] BILLY: 01/13/25-163 [facility] [address]: Vicente Mooney MD ENTERED: 01/14/25-4082 SP TYPE: Pap Smr OTHR DR: Petra Wiley ORDERED: Pap Smear Copies To: Petra Wiley [address] [place] [address] Vicente Mooney MD [facility] Women[facility] Services [address] [place] [address] [address] [place] [address] [phone] ----- ------- Signed (signature on file) SIOMARA Portillo (ASCP) 01/21/25 1002 ----- ------- END OF REPORT Generic External Data Provider LAB CYTOLOGY ORDE RABLES Final Result Performing Organization Address [facility] Co de Phone Number [facility] [address] [place] [phone] * (ABNORMAL) Bacterial Vaginosis (01/13/2025 3:31 PM EDT) Pathologist [facility] TRICHOMONAS VAGINALIS DETECTION BY PCR NOT DETECTED Not Detect [facility] BACTERIAL VAGINOSIS DETECTION BY PCR NEGATIVE Negative [facility] Comment:The BV organism targ ets [...] GROUP DETECTION BY PCR DETECTED(A) Not Detect [facility] Eva glab krusei PCR NOT DETECTED Not Detect [facility] 01/13/2025 3:31 PM EDT 01/14/2025 12:22 PM EDT Generic External Data Provider LAB MICROBIOLOGY - GENERAL ORDERABLES Final Result Performing Organization Address [facility] Co de Phone Number [facility] [address] [place] [phone] * Chlamydia/N. Gonorrhoeae RNA, TMA, Urogenitial (01/13/2025 3:31 PM EDT) CT PCR NOT DETECTED Not Detect. [facility] Comment:A not detected test result [...] psychologicalconsequences. NG PCR NOT DETECTED Not Detect. [facility] Comment:A not detected test result [...] LAB MICROBIOLOGY - GENERAL ORDERABLES Final Result [facility] [address] [place] [phone] * CT Abdomen Pelvis w/ Contrast (01/08/2025 8:17 AM EDT) Anatomical Region Laterality Modality Body, Pelvis, Abdomen Computed T omography 01/08/2025 8:17 AM EDT Narrative 01/08/2025 9:56 AM EDT [address] [address] [address] Scan Report Signed Patient: Ambika Mcdermott MR#: [id number] : 1985 Acct:[id number] Age/Sex: 39 / F ADM Date: 01/08/25 Loc: HO.ED Attending Dr: Ordering Physician: Mateo Escobedo MD Date of Service: 01/08/25 Procedure(s): CT abdomen pelvis w IV con Accession Number(s): [id number] cc: Mateo Escobedo MD; Petra Wiley [facility] Report Number: [id number]: Total DLP = 543.00 mGy-cm EXAMINATION: CT [...] 01/08/25 0953 DD/ 0817 TD/TT: 01/08/25 0937 Dynamics Ax Consultant: Procedure Note Donotuseinterpreter, Image - 01/08/[address] [address] [address] Scan Report Signed Patient: Ambika McdermottMR#: [id number] : 1985Acct:[id number] Age/Sex: 39 / FADM Date: 01/08/25 Loc: HO.ED Attending Dr: Ordering Physician: Mateo Escobedo MD Date of Service: 01/08/25 Procedure(s): CT abdomen pelvis w IV con Accession Number(s): [id number] cc: Mateo Escobedo MD; Petra Wiley [facility] Report Number: [id number]: Total DLP = 543.00 mGy-cm EXAMINATION: CT [...] 01/08/25 0953 DD/ 0817 TD/TT: 01/08/25 0937 Dynamics Ax Consultant: [facility] External Provider IMG CT PROCEDURES Edited Result - Final * Urinalysis w/reflex microscopic (01/08/2025 7:03 AM EDT) Color Urine Yellow [facility] Appearance Urine Clear [facility] PH 5.5 5.0 - 9.0 [facility] Glucose Urine UA Negative Negative mg/dL [facility] Urine Blood Negative Negative [facility] Specific [place] - Urine 1.020 1.005 - 1.025 [facility] Urine Protein Negative Neg-Trace mg/dL [facility] Urine Ketones Negative Negative mg/dL [facility] Nitrite Urine Negative Negative [facility] Leukocyte Esterase Urine Negative Negative [facility] 01/08/2025 7:03 AM EDT 01/08/2025 7:08 AM EDT Narrative [facility] - 01/08/2025 7:33 AM EDT Urine, Clean Catch Generic External Data Provider LAB URINE ORDERAB LES Final Result Performing Organization Address [facility] Co de Phone Number [facility] [address] [place] [phone] * High Sensitivity Troponin I (01/08/2025 5:54 AM EDT) TROPONIN I HIGH SENSITIVITY <2.7 <3.5 - 17.0 ng/L [facility] Comment:The [place] high sens itivity Troponin-I results should beused in conjunction with other diagnostic information suchas ECG, clinical observations and information, and patientsymptoms to aid in the diagnosis of SD. 01/08/2025 5:54 AM EDT 01/08/2025 5:59 AM EDT Generic External Data Provider LAB BLOOD ORDERAB LES Final Result Performing Organization Address [facility] de Phone Number [facility] [address] [place] [phone] * hCG, Total, Quantitative (01/08/2025 5:54 AM EDT) Only the most recent of2 resultswithin the time period is included. Pathologist [facility] HCG Quantitative <2 mIU/mL [facility] Comment:Weeks post LMP Appro ximate hCG(Last Menstrual Period) Range (mIU/ml)3 - 4 weeks 9 - 1304 - 5 weeks 75 - 2,6005 - 6 weeks 850 - 20,8006 - 7 weeks 4000 - 100,2007 - 12 weeks 11,500 - 289,81799 - 16 weeks 18,300 - 137,71858 - 29 weeks (2nd trimester) 1,400 - 53,06331 - 41 weeks (3rd trimester) 940 - [...] ORDERAB LES Final Result Performing Organization Address [facility] de Phone Number [facility] [address] [place] [phone] * Lipase (01/08/2025 5:54 AM EDT) Only the most recent of2 resultswithin the time period is included. Lipase 28 8 - 78 U/L [facility] 01/08/2025 5:54 AM EDT 01/08/2025 5:59 AM EDT Generic External Data Provider LAB BLOOD ORDERAB LES Final Result Performing Organization Address [facility] Number [facility] [address] [place] [phone] * (ABNORMAL) Comprehensive Metabolic Panel (01/08/2025 5:54 AM EDT) Only the most recent of2 resultswithin the time period is included. Sodium 140 135 - 145 mmol/L [facility] Potassium 3.9 3.3 - 5.1 mmol/L [facility] Chloride 109(H) 96 - 108 mmol/L [facility] Carbon Dioxide 24 22 - 29 mmol/L [facility] Anion Gap 11(L) 12 - 20 [facility] Urea Nitrogen (BUN) 8(L) 9 - 16 mg/dL [facility] Creatinine, Serum 0.61 0.5 - 1.4 mg/dL [facility] Creatinine Clr Calc Pharmacy 111.6 [facility] Comment:Provided height and weight: 152.4 cm,71.8 kg.eGFR (calculated from the MDRD study equation) and eCrCl(calculated from the Cockcroft-Gault equation) are based ondifferent parameters and may not yield comparable results.If eCrCl result is absurd, please check patient'sheight/weight. Estimated Glomerular Filt Rate >60 [facility] Comment:Chronic Kidney Disea se: Estimated GFR < 60 mL/min/1.46c0Gdgdio Kidney Disease: Estimated GFR < 15 mL/min/1.73m2 Glucose 111 60 - 115 mg/dL [facility] Calcium 9.2 8.4 - 10.2 mg/dL [facility] Bilirubin, Total 0.2 0.0 - 1.0 mg/dL [facility] Aspartate Amino Transferase 18 5 - 31 U/L [facility] Alanine Aminotransferase 19 0 - 31 U/L [facility] Total Protein 7.5 6.5 - 8.0 g/dL [facility] Albumin Level 4.6 3.5 - 5.0 g/dL [facility] Alkaline Phosphatase 68 39 - 117 U/L [facility] 01/08/2025 5:54 AM EDT 01/08/2025 5:59 AM EDT us Generic External Data Provider LAB BLOOD ORDERAB LES Final Result Performing Organization Address City/State/[facility] Co de Phone Number [facility] [address] [place] [phone] * CT Abdomen Pelvis w/o Contrast (12/16/2024 3:24 PM EDT) Anatomical Region Laterality Modality Body, Pelvis, Abdomen Computed T omography 12/16/2024 3:24 PM EDT Narrative 12/16/2024 5:00 PM EDT [place] [address] CT Scan Report Signed Patient: Ambika Mcdermott MR#: [id number] : 1985 Acct:[id number] Age/Sex: 39 / F ADM Date: 12/16/24 Loc: HO.ED Attending Dr: Ordering Physician: Osman Mathew MD Date of Service: 12/16/24 Procedure(s): CT abdomen pelvis wo IV con Accession Number(s): [id number] cc: Osman Mathew MD; Petra Wiley Report Number: [id number]: Total DLP = 553.00 mGy-cm EXAMINATION: CT [...] 12/16/24 1657 DD/ 1524 TD/TT: 12/16/24 1635 Dynamics Ax Consultant: Procedure Note Donotuseinterpreter, Image - 12/16/[address] [address] [address] Scan Report Signed Patient: Ambika McdermottMR#: [id number] : 1985Acct:[id number] Age/Sex: 39 / FADM Date: 12/16/24 Loc: HO.ED Attending Dr: Ordering Physician: Osman Mathew MD Date of Service: 12/16/24 Procedure(s): CT abdomen pelvis wo IV con Accession Number(s): [id number] cc: Osman Mathew MD; Petra Wiley [facility] Report Number: [id number]: Total DLP = 553.00 mGy-cm EXAMINATION: CT [...] 12/16/24 1657 DD/ 1524 TD/TT: 12/16/24 1635 Dynamics Ax Consultant: [facility] External Provider IMG CT PROCEDURES Final Result * (ABNORMAL) Urinalysis, Complete, with Reflex to Culture (12/16/2024 3:20 PM EDT) Color Urine Yellow [facility] Appearance Urine Clear [facility] PH 5.5 5.0 - 9.0 [facility] Glucose Urine UA Negative Negative mg/dL [facility] Urine Blood Negative Negative [facility] Specific [place] - Urine 1.020 1.005 - 1.025 [facility] Urine Protein Negative Neg-Trace mg/dL [facility] Urine Ketones Trace Negative mg/dL [facility] Nitrite Urine Negative Negative [facility] Leukocyte Esterase Urine Small (1+)(A) Negative [facility] RBC Urine 0-2 0 - 2 /HPF [facility] Urine WBC 0-5 0 - 5 /HPF [facility] Urine Squamous Epithelial Cell 0-2 0 - 2 /HPF [facility] Urine Bacteria None Seen None Seen [facility] Hyaline Casts, Urine 0-2 0 - 2 /LPF [facility] 12/16/2024 3:20 PM EDT 12/16/2024 3:49 PM EDT [facility] - 12/16/2024 4:06 PM EDT [id number], Clean Catch Generic External Data Provider LAB URINE ORDERAB LES Final Result Performing Organization Address [facility]/ZIP Co de Phone Number [facility] [address] [place] [phone] * Culture, Urine, Routine (12/16/2024 12:00 AM EDT) Urine Urine specimen obtained by clean catch procedure / Unknown 12/16/2024 12/16/2024 Comment:[facility] - 12/18/2024 11:46 AM EDT Urine Culture Report Result Urine Culture < 10,000 cfu/ml Specimen Source: Urine clean catch Generic External Data Provider LAB MICROBIOLOGY - GENERAL ORDERABLES Final Result Performing Organization Address [facility] Co de Phone Number [facility] [address] [place] [address] [phone] * (ABNORMAL) Lipid Panel, Standard (11/26/2024 2:45 PM EDT) Triglycerides 101 <150 mg/dL [facility] Comment:Desirable Triglyceri de: less than 150 mg/dLBorderline High Triglyceride 150-199 mg/dLHigh Triglyceride: 200-499 mg/dLVery High Triglyceride: greater than or equal to 5OO mg/dL Cholesterol 208(H) <200 mg/dL [facility] Comment:Desirable Cholestero l: less than 200 mg/dLBorderline High Cholesterol: 200-239 mg/dLHigh Cholesterol: greater than 239 mg/dL LDL Cholesterol Calculated 140(H) <100 mg/dL [facility] Comment:Desirable LDL: less than 100 mg/dLNear Optimal/Above Optimal LDL: 110- 129 mg/dLBorderline High LDL: 130-159 mg/dLHigh LDL: 160-189 mg/dLVery High LDL: greater than or equal to 190 mg/dL HDL Cholesterol 48 >40 mg/dL [facility] Comment:Desirable HDL: great er than 40 mg/dL Note: This HDL assay may give artificially low results in patients with liver disease. Blood Venous blood specimen / Unknown 11/26/2024 2:45 PM EDT 11/26/2024 2:45 PM EDT Petra Wiley [facility] LAB BLOOD ORDERABLES Final Res ult Performing Organization Address [facility] de Phone Number [facility] [address] [place] [phone] * Hepatitis C Viral RNA, Quantitative, Real-Time PCR (03/18/2024 2:05 PM EDT) Hepatitis C Viral Load <15 NOT DETECTED NOT DETECTED IU/mL [facility] HCV Log PCR <1.18 NOT DETECTED NOT DETECTED Log IU/mL [facility] Comment:For additional infor felton, please refer tohttp://education.[employer]/faq/NJE90y6(This link is being provided for informational/educational purposes only.)THIS TEST WAS PERFORMED AT:[facility] [place] [id number] DEL CID MD Blood 03/18/2024 2:05 PM EDT 03/18/2024 2:05 PM EDT Petra Wiley [facility] LAB BLOOD ORDERABLES Final Res ult Performing Organization Address [facility] Co de Phone Number [facility] [address] [place] [phone] [phone] * HIV-1/2 Antigen and Antibodies, Fourth Generation, with Reflexes (03/18/2024 2:05 PM EDT) HIV AB/AG Nonreactive Nonreactive [facility] Comment:HIV-1 p24 Ag and/or HIV-1/HIV-2 Ab not detected.A test result that is nonreactive does not exclude thepossibility of exposure to or infection with HIV-1 and/orHIV-2. Nonreactive results in this assay for individualswith prior exposure to HIV-1 and/or HIV-2 may be due toantigen and antibody levels that are below the limit ofdetection of this assay.The Superfly HIV Ag/Ab Combo assay result andsupplemental assay results should be interpreted inconjunction with the patient's clinical presentation,history and other laboratory results. If the results areinconsistent with clinical evidence, additional testing issuggested to confirm the result. Blood Venous blood specimen / Unknown 03/18/2024 2:05 PM EDT 03/18/2024 2:05 PM EDT us Petra Wiley [facility] LAB BLOOD ORDERABLES Final Res ult [facility] [address] [place] [phone] from Last 3 Months or Most Recently Relevant to Health Maintenance Insurance [facility] MEDICAID STAND ADULT Care Teams Nike Athlete Relationship Specialty Start Date End Date Perta Wiley FNP [address] [place] [address] PCP - General Family Medicine 03/17/24 Willard Waters [phone] Rheumatology 05/17/[address] [place] [address] 3rd Floor [place], [place] Gastroenterology 05/17/24 Juan Sandra MD [address] [place] [address] Hematology and Oncology 05/17/24 Brigid Guy NP [address] [place] [address] Urology 05/17/24 Vicente Mooney MD [address] [place] [address] [address] [place] [address] Obstetrics and Gynecology 05/17/24 Beth Rai MD [address] [place] [address] Dr [facility] [address] [place] [address] Neurology 05/17/24 Michell Espinoza [address] 3rd [place] [address] Cardiology 05/17/24 [facility] HeartDiplomatic Interpreter/Translator 09/26/23
--- OUTSIDE RECORDS SUMMARY | 2025-03-03 16:26 | XMS_ITS | Encounter Summary ---
Author Organization [facility] Address [address]t [place] [address] Care Team Providers Care Pole Incisor Operator Name Role Phone Jennie Murray MD Primary Care Provider Petra Wiley Primary Care Provider Willard Waters Unavailable [phone] KesslerSeptember Unavailable Juan Sandra MD Unavailable [phone] Brigid Guy NP Unavailable Vicente Mooney MD Unavailable Beth Rai MD Unavailable Michell Espinoza Unavailable Encounter Details Date Type Department Care Team (Latest Contact Info) Description 09/12/2020 Abstract [facility] CONVERSIONS Dental, Provider, DDS Social History Tobacco [...] Clinical Support [facility] DIABETES/NUTRITION [address] [place], [place] [phone] Mc[address] [place] [address] documented as of this encounter Visit Diagnoses Not on filedocumented in this encounter Care Teams Pole Incisor Operator Relationship Specialty Start Date End Date Jennie Murray MD [address] [place] [address] PCP - General Family Medicine 06/23/13 03/16/24 Petra Wiley FNP [address] [place] [address] PCP - General Family Medicine 03/17/24 Willard Waters [address] [place] [address] Rheumatology 05/17/24KesslerSeptember [address] [facility] [address] [place] [address] Gastroenterology 05/17/24 Juan Sandra MD [address] [place] [address] Hematology and Oncology 05/17/24 Brigid Guy NP [address] [place] [address] Urology 05/17/24 Vicente Mooney MD [address] [place] [address] [address] [place] [address] Obstetrics and Gynecology 05/17/24 Beth Rai MD [address] [place] [address] [address] [place] [address] Neurology 05/17/24 Michell Espinoza [address] [place] [address] Cardiology 05/17/24 [facility] Group CaptainQuality Control Industrial Engineer 09/26/23 documented as of this encounter
== END 2025-03-03 12:59 | disposition home or self-care (01) ==
LOC: HO.MAMMO 12:58
PROVIDERS: PCP Registered Nurse; Visit Provider Registered Nurse
DX: R92.2 Inconclusive mammogram (principal)
CPT/HCPCS: 76642

== ENCOUNTER → 2025-03-03 13:00 | Outpatient (BNV) | payer MEDICAID, SELFPAY | PROVIDERS: PCP Registered Nurse; Visit Provider Internal Medicine | DX: N63.15 Unspecified lump in the right breast, overlapping quadrants (principal) | CPT/HCPCS: 76642 ==

== ENCOUNTER 2025-04-15 15:01 | Outpatient (RCR) | payer MEDICAID, SELFPAY ==
--- NOTE | 2025-02-22 12:06 | MHC.PT.EP ---
[facility] [place] [facility] [place] Office [address] Carina Clark [address] [phone] F: [phone] F: [phone] F: [phone] F: [phone] Physical Therapy Plan of Care Date of Evaluation: 02/22/25 Date of Surgery: N/A Diagnosis: injury of left knee (RL) Assessment: pt is a 39 y/o female presenting to physical therapy w/ referring diagnosis of injury of left knee. Impairments include pain, decreased range of motion, decreased strength, impaired functional mobility, impaired postural awareness, and altered ambulation mechanics. pt is a good candidate for skilled PT due to age, potential remediation of impairments, typical disease/condition progression and prognosis, comorbidities, and motivation. pt would benefit from skilled PT intervention to provide a tailored strengthening and stretching exercise program, functional training, gait training, postural re-training, neuromuscular re-education, modalities as needed for pain, equipment safety demonstration. Frequency and Duration: The patient will be seen 2x/wk for 4 wks Short Term Goals: pt will be I w/ HEP to promote self-management of condition. pt will improve L knee flexion by at least 10* to promote ease in sit<>stand transfers. Processing Spec Goals: pt will report a statistically significant improvement in self-reported outcome measure, LEFI, to promote return to PLOF. pt will perform full depth squat w/o obvious deviation to promote ease in picking up objects from the floor. Treatment Plan: Modalities to reduce pain, spasms and effusion. Manual therapy to restore motion and function. Therapeutic exercise to improve strength and flexibility. Neuromuscular re-education for posture and balance. Therapeutic activities to return to functional activities of daily living. Electronically signed by: Laila Loving PT, DPT Please sign and return to therapist. Thank you for your referral.
--- NOTE | 2025-04-28 15:46 | MHC.PT.EP ---
[facility] [place] [facility] [place] [facility] [place] [facility] [address] Carina Clark [address] [phone] F: [phone] F: [phone] F: [phone] F: [phone] Physical Therapy Plan of Care Date of Evaluation: 02/22/25 Date of Surgery: N/A Diagnosis: injury of left knee (RL) Assessment: pt is a 39 y/o female presenting to physical therapy w/ referring diagnosis of injury of left knee. Impairments include pain, decreased range of motion, decreased strength, impaired functional mobility, impaired postural awareness, and altered ambulation mechanics. pt is a good candidate for skilled PT due to age, potential remediation of impairments, typical disease/condition progression and prognosis, comorbidities, and motivation. pt would benefit from skilled PT intervention to provide a tailored strengthening and stretching exercise program, functional training, gait training, postural re-training, neuromuscular re-education, modalities as needed for pain, equipment safety demonstration. Frequency and Duration: The patient will be seen 2x/wk for 4 wks Short Term Goals: pt will be I w/ HEP to promote self-management of condition. pt will improve L knee flexion by at least 10* to promote ease in sit<>stand transfers. Cardiology Nurse Goals: pt will report a statistically significant improvement in self-reported outcome measure, LEFI, to promote return to PLOF. pt will perform full depth squat w/o obvious deviation to promote ease in picking up objects from the floor. Treatment Plan: Modalities to reduce pain, spasms and effusion. Manual therapy to restore motion and function. Therapeutic exercise to improve strength and flexibility. Neuromuscular re-education for posture and balance. Therapeutic activities to return to functional activities of daily living. Electronically signed by: Laila Loving PT, DPT Please sign and return to therapist. Thank you for your referral.
== END 2025-04-28 15:46 | disposition home or self-care (01) ==
LOC: HO.PT 15:01
PROVIDERS: PCP Registered Nurse; Visit Provider Registered Nurse
DX: S89.92XD Unspecified injury of left lower leg, subsequent encounter (principal); V19.9XXD Pedal cyclist (driver) (passenger) injured in unspecified traffic accident, subsequent encounter
CPT/HCPCS: 97014; 97110; 97162

== ENCOUNTER 2025-04-21 15:56 | Outpatient (AMB) | payer MEDICAID, SELFPAY ==
--- OUTSIDE RECORDS SUMMARY | 2025-04-19 13:20 | XMS_ITS | Encounter Summary ---
Author Organization [facility] Address [address] [place] [address] Care Team Providers Care Covering And Lining Supervisor Name Role Phone Petra Wiley Primary Care Provider [phone] Encounter Details Date Type Department Care Team (Late st Contact Info) Description 04/19/2025 1:20 PM EST Lab [facility] ACC Draw Site Fifth Floor [address] [place] [address] Iron deficiency Social History Tobacco Use Types Packs/Day Years [...] Upcoming Encounters Date Type Department Care Team (Latest Contact Info) Description 04/28/2025 1:45 PM EST Infusion [facility] ACC Building Infusion Clinic [address] [place] [address] 04/30/2025 7:15 AM EST Hospital Encounter [facility] Operating Room [address] [place] [address] Anneliese James MD [address] [place] [address] 04/30/2025 7:15 AM EST - 04/30/2025 8:30 AM EST Surgery [facility] Operating Room [address] [place] [address] Anneliese James MD [address] [place] [address] HYSTEROSCOPY MYOMECTOMY WITH MYOSURE, WITH ENDOMETRIAL SAMPLING AND/OR POLYPECTOMY, POSSIBLE DILATION AND CURETTAGE [45618 (CPT )] 06/14/2025 3:00 PM EST Office Visit [facility] Dermatology Clinic 4th Floor [address] [facility], [place] [id number] Weaving Inspector: Zachary Zavaleta MD [address] [place] [address] 07/12/2025 2:00 PM EST Lab [facility] ACC Draw Site Fifth Floor [address] [place] [address] 07/12/2025 3:00 PM EST Follow-Up [facility] BMT Clinic [address] [place] [address] Shavon Roberson NP [address] [place], [place] [id number] Scheduled Procedures Name Priority Associated Diagnoses Date/Ti me HYSTEROSCOPY MYOMECTOMY WITH MYOSURE, WITH ENDOMETRIAL SAMPLING AND/OR POLYPECTOMY, POSSIBLE DILATION AND CURETTAGE Abnormal uterine bleeding 04/30/2025 7:15 AM EST documented as of this encounter Procedures * Due to [place] state law, this organization might not be sharing negative HIV tests. Procedure Name Priority Date/Time Associated Diagnosis Comments IRON, TIBC AND FERRITIN PANEL (5616) Routine 04/19/2025 1:24 PM EST Iron deficiency VITAMIN B12 Routine 04/19/2025 1:24 PM EST Iron deficiency IRON SATURATION Routine 04/19/2025 1:24 PM EST Iron deficiency CBC AUTO DIFFERENTIAL STAT 04/19/2025 1:24 PM EST Iron deficiency FOLATE Routine 04/19/2025 1:24 PM EST Iron deficiency FERRITIN Routine 04/19/2025 1:24 PM EST Iron deficiency VITAMIN B12 Routine 04/19/2025 1:24 PM EST Iron deficiency documented in this encounter Results * Due to [place] state law, this organization might not be sharing negative HIV tests. * Ferritin (04/19/2025 1:24 PM EST) Ferritin 19.6 11.0 - 306.0 ng/mL 04/19/2025 2:35 PM EST [facility] Blood Structure of peripheral vein / Unknown Venipuncture / Unknown 04/19/2025 1:24 PM EST 04/19/2025 1:43 PM EST [facility] FOOD SERVICE TEAM MEMBER LAB BLOOD ORDERABLES F inal Result [facility] CLINICAL PATHOLOGY LABORATORY [address] [place] [id number], * (ABNORMAL) Iron Saturation (04/19/2025 1:24 PM EST) Iron Saturation 14(L) 20 - 50 % 2:35 PM EST [facility] Iron 60 30 - 160 ug/dL 04/19/2025 2:35 PM EST [facility] Transferrin 343 200 - 360 mg/dL 04/19/2025 2:35 PM EST [facility] Total Iron Binding Capacity 429 255 - 450 ug/dL 04/19/2025 2:35 PM EST [facility] PATH[facility] LAB[facility]ATORY Blood Structure of peripheral vein / Unknown Venipuncture / Unknown 04/19/2025 1:24 PM EST 04/19/2025 1:43 PM EST Shavon Angela Dipinto FOOD SERVICE TEAM MEMBER LAB BLOOD ORDERABLES F inal Result Performing Organization Address City/[facility]/ZIP Co de Phone Number Actions CLINICAL PATHOLOGY LABORATORY [address] [place] [address], * Folate (04/19/2025 1:24 PM EST) Folate 17.2 4.8 - 24.2 ng/mL 04/19/2025 2:35 PM EST [facility] LAB[facility] Blood Structure of peripheral vein / Unknown Venipuncture / Unknown 04/19/2025 1:24 PM EST 04/19/2025 1:43 PM EST Shavon Angela Dipinto FOOD SERVICE TEAM MEMBER LAB BLOOD ORDERABLES F inal Result Performing Organization Address [facility] Co de Phone Number Actions CLINICAL PATHOLOGY LABORATORY [address] [place] [address], [place] * Vitamin B12 (04/19/2025 1:24 PM EST) Pathologist [facility] Vitamin B12 324 232 - 1,245 pg/mL 04/19/2025 2:35 PM EST [facility] CL[facility]ICAL PATHOLOGY LABORATORY Blood Structure of peripheral vein / Unknown Venipuncture / Unknown 04/19/2025 1:24 PM EST 04/19/2025 1:43 PM EST Shavon Haskell Dipinto FOOD SERVICE TEAM MEMBER LAB BLOOD ORDERABLES F inal Result Performing Organization Address City/[facility]/ZIP Co de Phone Number [facility] CLINICAL PATHOLOGY LABORATORY [address] [place] [address], * (ABNORMAL) CBC Auto Differential (04/19/2025 1:24 PM EST) WBC 7.4 3.8 - 10.8 10*3/uL 04/19/2025 1:45 PM EST [facility] LAB[facility] RBC 4.53 3.80 - 5.10 10*6/uL 04/19/2025 1:45 PM EST [facility] Hemoglobin 12.0 11.7 - 15.5 g/dL 04/19/2025 1:45 PM EST [facility] Hematocrit 38.5 35.0 - 45.0 % 04/19/2025 1:45 PM EST [facility] MCV 85.0 80.0 - 100.0 fL 04/19/2025 1:45 PM EST [facility] MCH 26.5(L) 27.0 - 33.0 pg 04/19/2025 1:45 PM EST [facility] MCHC 31.2(L) 32.0 - 36.0 g/dL 04/19/2025 1:45 PM EST [facility] RDW 13.0 11.0 - 15.0 % 04/19/2025 1:45 PM EST [facility] Platelets 326 140 - 400 10*3/uL 04/19/2025 1:45 PM EST [facility] MPV 10.9 7.5 - 12.5 fL 04/19/2025 1:45 PM EST [facility] Neutrophil % 66.1 % 04/19/2025 1:45 PM EST [facility] Immature Grans % 0.3 0.0 - 0.9 % 04/19/2025 1:45 PM EST [facility] Lymphocyte % 26.1 % 04/19/2025 1:45 PM EST [facility] Monocyte % 5.7 % 04/19/2025 1:45 PM EST [facility] Eosinophil % 1.1 % 04/19/2025 1:45 PM EST [facility] Basophil % 0.7 % 04/19/2025 1:45 PM EST [facility] Neutrophil # 4.91 1.50 - 7.80 10*3/uL 04/19/2025 1:45 PM EST [facility] Immature Grans # <0.03 <=0.03 10*3/uL 04/19/2025 1:45 PM EST [facility] Lymphocyte # 1.90 0.85 - 3.90 10*3/uL 04/19/2025 1:45 PM EST [facility] Monocyte # 0.40 0.20 - 0.95 10*3/uL 04/19/2025 1:45 PM EST [facility] Eosinophil # 0.10 0.02 - 0.50 10*3/uL 04/19/2025 1:45 PM EST [facility] Basophil # 0.10 0.00 - 0.20 10*3/uL 04/19/2025 1:45 PM EST [facility] nRBC % 0.0 /100 WBCs 04/19/2025 1:45 PM EST [facility] nRBC # <0.01 <0.01 10*3/uL 04/19/2025 1:45 PM EST [facility] Total Neutrophil #, Preliminary 4.91 1.50 - 7.80 10*3/uL 04/19/2025 1:45 PM EST [facility] Blood Structure of peripheral vein / Unknown Venipuncture / Unknown 04/19/2025 1:24 PM EST 04/19/2025 1:31 PM EST us Shavon Roberson FOOD SERVICE TEAM MEMBER LAB BLOOD ORDERABLES F inal Result [facility] CLINICAL PATHOLOG[facility] LABORATORY [address] [place] [address], documented in this encounter Visit Diagnoses Diagnosis Iron deficiency Disorders of iron metabolism Abnormal uterine bleeding Unspecified disorder of menstruation and other abnormal bleeding from female genital tract documented in this encounter Care Teams Covering And Lining Supervisor Relationship Specialty Start Date End Date Petra Wiley [address] [place] [phone] PCP - General Family Medicine 03/19/24 documented as of this encounter
--- OUTSIDE RECORDS SUMMARY | 2025-04-19 14:20 | XMS_ITS | Encounter Summary ---
Author Organization [facility] Address [address] [place] [address] Care Team Providers Care Sanitarian Aide Name Role Phone Petra Wiley Primary Care Provider [phone] Encounter Details Date Type Department Care Team (Late st Contact Info) Description 04/19/2025 2:20 PM EST Follow-Up [facility] BMT Clinic [address] [place] [address] Shavon Eastman NP [address] [place] [address] Iron deficiency (Primary Dx) Social History Tobacco Use Types [...] Sign Reading Time Taken Comments Blood Pressure 114/76 04/19/2025 2:00 PM EST Pulse 97 04/19/2025 2:00 PM EST Temperature 36.7 C (98 F) 04/19/2025 2:00 PM EST Respiratory Rate 18 04/19/2025 2:00 PM EST Oxygen Saturation 100% 04/19/2025 2:00 PM EST Inhaled Oxygen Concentration - - Weight 67.7 kg (149 lb 4 oz) 04/19/2025 2:00 PM EST Height - - Body Mass Index 30.15 11/02/2024 2:02 PM EDT documented in this encounter Progress Notes * Shavon Eastman, EMERGENCY ROOM PHYSICIAN ASSISTANT - 04/19/2025 2:00 PM EST Images from the original note were not included. Hematology/Oncology Follow-up Note [facility] [address] [phone] Patient ID: Ambika Anaya : 1985 Date of Visit: 04/19/2025 CHIEF COMPLAINT/DIAGNOSIS: PHUC Care team: Shavon Eastman NP HISTORY OF THE PRESENT ILLNESS: Ms. Ambika Anaya is a 40 y.o. female who presents for evaluation of PHUC. Her relevant past medical history is as follows: - Ambika Anaya is a 40 y.o. female w/ PMH GERD, IBS, AUB, fibromyalgia, TMJ, positive NURIA, who presents to hematology 01/18/25 for referral for iron deficiency - Following with [facility] Heme/Onc - Dr. Sandra - Unable to tolerate PO iron supplements d/t constipation and vomiting up the pills - September 2024: received IV venofer 200mg weekly x 4 - Followed by SHOP DIRECTOR as well for menorrhagia and uterine fibroids, now s/p IUD placement September 2024, which was misplaced so s/p new one in December 2024 - Had EGD done 09/2023 which was normal other than mild gastritis, placed on PPI after - She has never had a blood transfusion before PREVIOUS THERAPY: Iron pills d/c due to intolerance, IV venofer x 5 (09/2024) CURRENT THERAPY: IV dextran x 1, B12 1,000 mcg liquid daily RELEVANT CO-MORBIDITIES: Menorrhagia, anxiety INTERIM HISTORY: Since last visit with me in January 2025, she unfortunately went to the ED in March for episode of tachycardia, workup negative and was thought to be anxiety-provoked. Today the patient notes: - Overall she is ok, she was teary during our visit today due to being overwhelmed by everything going on including her breathing issues and tachycardia - She states her periods finally are better now that she's on aygestin, did not tolerate provera, and IUD was taken out - Denies any B symptoms, no other abnormal bleeding - She continues to lose weight due to feeling bad and vomits sometimes. She showed me results from her EGD last year which was normal other than mild gastritis - Does occasionally get dizzy ROS: Denies early satiety, chest pain, increase in shortness of breath at rest, severe dizziness orsyncope, neuropathy related symptoms, debilitating fatigue, fever, chills, drenching night sweats, significant dyspnea on exertion, severe headaches, visual disturbance, uncontrolled GERD symptoms, recurrent infections, coffee ground emesis or hemoptysis, bleeding gums, melena or hematochezia, hemat uria, easy bleeding or bruising, yellowing of skin or eyes, uncontrolled pains, new bony pains, pruritus or aquagenic pruritus All other ROS negative except as noted above. MEDICATIONS: Current Outpatient Medications Medication Sig Dispense Refill albuterol (PROAIR HFA,VENTOLIN HFA) 90 mcg inhaler Inhale 2 puffs by mouth. azelastine (ASTELIN) 137 mcg (0.1 %) nasal spray 1 spray 2 times daily as needed. blood pressure test kit-large kit USE TO CHECK BLOOD PRESSURE TWICE DAILY DIRECTED budesonide-formoteroL (SYMBICORT) 80-4.5 mcg inhaler Inhale 2 puffs by mouth 2 times daily. vyvfhnmghe-sjfebthrfiqtt-udkgzjjt (FIORICET) 50-325-40 mg tablet TOME ADRY TABLETA CADA OCHO HORAS CUANDO SEA NECESARIO FOR 30 DAYS cholecalciferol (VITAMIN D3) 1,000 unit tablet SMARTSI Tablet(s) By Mouth Daily (Patient not taking: Reported on 03/31/2025) Creon 24,000-76,000 -120,000 unit capsule SMARTSI Capsule(s) By Mouth 3 Times Daily (Patient nottaking: Reported on 03/31/2025) cyanocobalamin, vitamin B-12, 1,000 mcg/15 mL liquid Take 1,000 mcg by mouth once a day. 240 mL 1 cyclobenzaprine (FLEXERIL) 5 mg tablet Take 5 mg by mouth 3 times daily. Dexilant 60 mg capsule SMARTSI Capsule(s) By Mouth Daily dicyclomine (BENTYL) 10 mg capsule TOME ADRY C PSULA MINDA VECES AL D A famotidine (PEPCID) 40 mg tablet SMARTSI Tablet(s) By Mouth Every Night fexofenadine (KALLIE) 180 mg tablet SMARTSI Tablet(s) By Mouth Daily (Patient not taking: Reported on 03/31/2025) fluoride, sodium, 1.1 % paste APPLY A SMEAR OF PASTE ON THE BRUSH BRUSH THOROUGHLY TWICE DAILY. SPIT, DO NOT RINSE. (Patient not taking: Reported on 03/31/2025) hydrOXYzine HCL (ATARAX) 25 mg tablet Take 25 mg by mouth 4 (four) times daily. LORazepam (ATIVAN) 1 mg tablet SMARTSI.5-1 Tablet(s) By Mouth Daily PRN methocarbamoL (ROBAXIN) 750 mg tablet SMARTSI Tablet(s) By Mouth 4 Times Daily (Patient not taking: Reported on 03/31/2025) metoclopramide (REGLAN) 5 mg tablet SMARTSI Tablet(s) By Mouth 4 Times Daily (Patient not taking: Reported on 03/31/2025) nabumetone (RELAFEN) 750 mg tablet PLEASE SEE ATTACHED FOR DETAILED DIRECTIONS norethindrone (AYGESTIN) 5 mg tablet Take 1 tablet (5 mg total) by mouth 3 times a day. If bleedingwell controlled/stopped, can decrease to 5 mg twice daily after 5 days. If bleeding increases again, can increase dose to 5 mg 3 times a day. 90 tablet 2 ondansetron (ZOFRAN ODT) 4 mg disintegrating tablet [...] Inhale by mouth once a day. No current facility-administered medications for this visit. Past medical history and surgical history reviewed and updated ALLERGIES: Allergies Allergen Reactions Iodinated Contrast Media Anaphylaxis Morphine Dyspnea Other reaction(s): Altered Heart Rate, Trouble Breathing, chest pain Tramadol Vomiting Other reaction(s): Vomit Citalopram Vomiting Duloxetine Vomiting Other reaction(s): GI Problems PHYSICAL EXAMINATION: Vitals: 04/19/25 1400 BP: 114/76 BP Location: Right arm Patient Position: Sitting Pulse: 97 Resp: 18 Temp: 36.7 ??C (98 ??F) TempSrc: Oral SpO2: 100% Weight: 67.7 kg (149 lb 4 oz) GENERAL: Alert, well-groomed, and in no acute distress HEENT: Normocephalic, atraumatic. Sclera non-icteric, PERRLA, EOMI, no ulcerations or signs of geographic tongue present NECK/LYMPHATICS: Supple without tenderness or palpable masses. No lymphadenopathy appreciated CHEST: CTA bilaterally, no rhonchi or wheezing HEART: RRR, no murmurs, rubs or gallops ABDOMEN: Soft, nontender, non-distended, normoactive bowel sounds. No hepatosplenomegaly noted EXTREMITIES: Patient moving all extremities without difficulty. No signs of fluid overload present.No edema, cyanosis or clubbing. NEUROLOGICAL: Awake, alert, oriented, nonfocal grossly. Short and skilled nursing memory appear to be intact SKIN: No skin pallor, significant ecchymosis or signs of bleeding/bruising. PSYCHIATRIC: The patient has appropriate mood and affect. LABS: Results for orders placed or performed in visit on 04/19/25 (from the past 240 hours) CBC Auto Differential Collection Time: 04/19/25 1:24 PM Specimen: Venous, Peripheral; Blood Result Value Ref Range WBC 7.4 3.8 - 10.8 10*3/uL RBC 4.53 3.80 - 5.10 10*6/uL Hemoglobin 12.0 11.7 - 15.5 g/dL Hematocrit 38.5 35.0 - 45.0 % MCV 85.0 80.0 - 100.0 fL MCH 26.5 (L) 27.0 - 33.0 pg MCHC 31.2 (L) 32.0 - 36.0 g/dL RDW 13.0 11.0 - 15.0 % Platelets 326 140 - 400 10*3/uL MPV 10.9 7.5 - 12.5 fL Neutrophil % 66.1 % Immature Grans % 0.3 0.0 - 0.9 % Lymphocyte % 26.1 % Monocyte % 5.7 % Eosinophil % 1.1 % Basophil % 0.7 % Neutrophil # 4.91 1.50 - 7.80 10*3/uL Immature Grans # <0.03 <=0.03 10*3/uL Lymphocyte # 1.90 0.85 - 3.90 10*3/uL Monocyte # 0.40 0.20 - 0.95 10*3/uL Eosinophil # 0.10 0.02 - 0.50 10*3/uL Basophil # 0.10 0.00 - 0.20 10*3/uL nRBC % 0.0 /100 WBCs nRBC # <0.01 <0.01 10*3/uL Total Neutrophil #, Preliminary 4.91 1.50 - 7.80 10*3/uL Vitamin B12 Collection Time: 04/19/25 1:24 PM Specimen: Venous, Peripheral; Blood Result Value Ref Range Vitamin B12 324 232 - 1,245 pg/mL Folate Collection Time: 04/19/25 1:24 PM Specimen: Venous, Peripheral; Blood Result Value Ref Range Folate 17.2 4.8 - 24.2 ng/mL Iron Saturation Collection Time: 04/19/25 1:24 PM Specimen: Venous, Peripheral; Blood Result Value Ref Range Iron Saturation 14 (L) 20 - 50 % Iron 60 30 - 160 ug/dL Transferrin 343 200 - 360 mg/dL Total Iron Binding Capacity 429 255 - 450 ug/dL Ferritin Collection Time: 04/19/25 1:24 PM Specimen: Venous, Peripheral; Blood Result Value Ref Range Ferritin 19.6 11.0 - 306.0 ng/mL IMPRESSION/REPORT/PLAN: # Anemia # Menorrhagia # IBS Ms. Ambika Anaya presents to hematology today for management of iron deficiency anemia likely in the setting of menorrhagia as well as likely some malabsorption iso IBS. Her iron deficiency anemia has been ongoing for years, previously managed by [facility] and is being referred to [facility] to transfer care. Hgb has ranged ~10-12 g/dL over the past year, and she is also s/p iron infusions (venofer) x 4 in September 2024. She is now on aygestin for her menorrhagia; she had been reporting heavier periods with passing of clots but thinks the aygestin may be helping. Hopefully iron deficiency improves once her periods lighten. No concerning GI symptoms to note, however if periods lighten and PHUC persist then can consider H.pylori testing, celiac panel and colonoscopy (has had EGD done before but not colo). She was inagreement. CBC unremarkable today which is good news, no evidence of anemia and WBC diff and platelets are WNL. Ferritin did unfortunately fall to 19, iron sat <20%. With her ongoing fatigue/dizziness symptoms as well as her tachycardia, we will pursue IV iron again (switching to dextran d/t pt living [place] hour away and is more convenient than the 5 dose series of venofer). I told her I can't promise s ome of her breathing symptoms are from iron deficiency, but I do hope she feels a lot better overall from the iron which she understood. B12 still on lower end at 324, will reorder B12 1,000 mcg supplementation (pt prefers liquid, was on this prior). If iron deficient again in future, would recommend repleting with IV iron due to her history of vomiting when she has take oral iron pills before. Also may benefit from IV over oral if she has a degree of malabsorption d/t her IBS. We will pursue IV dextran x 1 with follow up in 3 months. Patient was encouraged to call with any new concerns or questions. Patient verbalized understanding of the plan and all questions were answered to the patient's satisfaction. PLAN: -- Treatment: IV dextran x 1, B12 1,000 mcg liquid daily -- Labs: CBC w/diff, Iron studies, B12 & Folate -- Follow up/Return visit: 3 months Electronically signed by: Shavon Eastman NP Department of Hematology/Oncology [facility] I spent a total of 35 minutes on the date of encounter, which included: ?? Preparing to see the patient (e.g., review of test results) ?? Obtaining and/or reviewing separately obtained history ?? Performing a medically appropriate exam and/or evaluation ?? Counseling and educating the patient/family/caregiver ?? Ordering medications, tests, procedures ?? Referring and communicating with other healthcare professionals, when not separately reported ?? Documenting clinical information in the health record ?? Independently interpreting results (not separately reported) and communicating results to the patient/family/caregiver Orders Placed This Encounter Procedures CBC Auto Differential Standing Status: Future Expected Date: 07/20/2025 Expiration Date: 10/18/2025 Release to patient: Immediate Iron, TIBC and Ferritin Panel Standing Status: Future Expected Date: 07/20/2025 Expiration Date: 10/18/2025 Release to patient: Immediate Vitamin B12 & Folate Standing Status: Future Expected Date: 07/20/2025 Expiration Date: 10/18/2025 Release to patient: Immediate documented in this encounter Miscellaneous Notes * Addendum Note - Shavon Eastman NP - 04/19/2025 3:37 PM ESTAddended by: SHAVON EASTMAN on: 04/19/2025 03:37 PM Modules accepted: Orders documented in this encounter Plan of Treatment Upcoming Encounters Date Type Department Care Team (Latest Contact Info) Description 04/28/2025 1:45 PM EST Infusion [facility] Building Infusion Clinic [address] [place] [phone] 04/30/2025 7:15 AM EST Hospital Encounter [facility] Operating Room [address] [place] [address] Anneliese James MD [address] [place] [phone] 04/30/2025 7:15 AM EST - 04/30/2025 8:30 AM EST Surgery [facility] Operating Room [address] [place] [address] Anneliese James MD [address] [place] [id number] HYSTEROSCOPY MYOMECTOMY WITH MYOSURE, WITH ENDOMETRIAL SAMPLING AND/OR POLYPECTOMY, POSSIBLE DILATION AND CURETTAGE [53392 (CPT )] 06/14/2025 3:00 PM EST Office Visit [facility] Dermatology Clinic 4th [address] [place] [address], [place] [address] Yard Specialist: Zachary Zavaleta MD [address] [place] [address] 07/12/2025 2:00 PM EST Lab [facility] ACC Draw Site Fifth Floor [address] [place] [address] 07/12/2025 3:00 PM EST Follow-Up [facility] Building BMT Clinic [address] [place] [address] Shavon Eastman NP [address] [place] [address] Scheduled Orders Name Type Priority Associated Diagnoses Orde r Schedule CBC Auto Differential Lab STAT Iron deficiency Expected: 07/20/2025, Expires: 10/18/2025 Iron, TIBC and Ferritin Panel Lab Routine Iron deficiency Expected: 07/20/2025, Expires: 10/18/2025 Vitamin B12 & Folate Lab Routine Iron deficiency Expected: 07/20/2025, Expires: 10/18/2025 Scheduled Procedures Name Priority Associated Diagnoses Date/Ti me HYSTEROSCOPY MYOMECTOMY WITH MYOSURE, WITH ENDOMETRIAL SAMPLING AND/OR POLYPECTOMY, POSSIBLE DILATION AND CURETTAGE Abnormal uterine bleeding 04/30/2025 7:15 AM EST documented as of this encounter Visit Diagnoses Diagnosis Iron deficiency- Primary Disorders of iron metabolism Abnormal uterine bleeding Unspecified disorder of menstruation and other abnormal bleeding from female genital tract documented in this encounter Care Teams Sanitarian Aide Relationship Specialty Start Date End Date Petra Wiley [address] [place] [phone] PCP - General Family Medicine 03/19/24 documented as of this encounter
--- OUTSIDE RECORDS SUMMARY | 2025-04-20 15:00 | XMS_ITS | Encounter Summary ---
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 Name Role Phone Petra Wiley Primary Care Provider [phone] Encounter Details Date Type Department Care Team (Late st Contact Info) Description 04/20/2025 3:00 PM EST Office Visit [facility] [place] [address] [place] [address] Head Of Partner Development: Kate Clemons, Elva Paz MD [address] [place] [phone] Pelvic pain (Primary Dx) Social History Tobacco Use Types [...] Sign Reading Time Taken Comments Blood Pressure 114/72 04/20/2025 2:46 PM EST Pulse - - Temperature - - Respiratory Rate - - Oxygen Saturation - - Inhaled Oxygen Concentration - - Weight 68.5 kg (151 lb) 04/20/2025 2:46 PM EST Height - - Body Mass Index 30.5 11/02/2024 2:02 PM EDT documented in this encounter Progress Notes * Anneliese James MD - 04/21/2025 9:51 AM EST I saw and evaluated the patient. Case discussed with the resident/fellow and I agree with the findings and plan as documented in the resident's/fellow's note. * Macho Martini Leavitt - 04/20/2025 2:58 PM EST [facility] Gynecology Note HISTORY OF PRESENT ILLNESS: Ambika Anaya is a pleasant 40 y.o. with PMH of Madelung's disease, anxiety/depression, bipolar disorder, PTSD, gastroparesis, GERD, IBS, fibromyalgia, chronic palpitations and chronic abnormal uterine bleeding presenting for AUB resulting in ED visit for rashard morales. Patient endorses that Aygestin has worked for her and she hasn't had any vaginal bleeding since starting it. She is currently taking 5 mg BID. Last night, she noticed her vaginal discharge was more cloudy than usual. She also endorses dysuria, increased urgency and frequency for the past 2 days in the setting of increased sexual intercourse. Patient has chronic yeast infections and she notes that these are similar to the symptoms she usually has. She has suprapubic pain but is unsure if this is related to a potential UTI or in the setting of chronic constipation or premenstrual pain. Patient also notes that before September when her prolonged menstrual bleeding began, she was experiencing increased vaginal dryness, decreased libido, more frequent yeast infections, and diaphoresis. She has had regular menstrual cycles during this time. She often feels weak and fatigued for the past couple of months. She endorses dizziness and has not fainted. She has a history of palpitations for which she takes propranolol. OBSTETRIC HISTORY: OB History 1 Para 1 Term 1 0 AB 0 Living 1 SAB 0 IAB 0 Ectopic 0 Multiple 0 Live Births 1 Obstetric Comments x 1 G1: VD, boy Jarule 22 yrs old GYNECOLOGIC HISTORY: LMP: Difficult because of intermenstrual/prolonged menstrual bleeding, thinks most recent was Mar 25-Apr 02 that ended with Aygestin initiation - Cycles: Previously regular, heavy, 3-5 days, menarche 13 - Contraception: Aygestin, didn't like side effects of Provera, history of repeated IUD expulsions - Sexually active with male partner, decreased sexual desire - STIs: No PAP history Last pap 01/13/2025 - normal PAST MEDICAL HISTORY: Past Medical History: Diagnosis Date Acute asthma (HCC) Anemia Anxiety Gastroparesis IBS (irritable bowel syndrome) Positive NURIA (antinuclear antibody) previously told fibromyalgia PAST SURGICAL HISTORY: Past Surgical History: Procedure Laterality Date LIPOMA RESECTION Right axilla - Madelung's disease MEDICATIONS: Current Outpatient Medications Medication Instructions albuterol (PROAIR HFA,VENTOLIN HFA) 90 mcg inhaler 2 puffs azelastine (ASTELIN) 137 mcg (0.1 %) nasal spray 1 spray, 2 times daily PRN blood pressure test kit-large kit USE TO CHECK BLOOD PRESSURE TWICE DAILY DIRECTED budesonide-formoteroL (SYMBICORT) 80-4.5 mcg inhaler 2 puffs, 2 times daily nkszffzwpv-zzlpgtsdbhnse-uhdrrawd (FIORICET) 50-325-40 mg tablet TOME ADRY TABLETA CADA OCHO HORAS CUANDO SEA NECESARIO FOR 30 DAYS cholecalciferol (VITAMIN D3) 1,000 unit tablet SMARTSI Tablet(s) By Mouth Daily Creon 24,000-76,000 -120,000 unit capsule SMARTSI Capsule(s) By Mouth 3 Times Daily cyanocobalamin (vitamin B-12) 1,000 mcg, sublingual, Daily cyclobenzaprine (FLEXERIL) 5 mg, 3 times daily Dexilant 60 mg capsule SMARTSI Capsule(s) By [...] THOROUGHLY TWICE DAILY. SPIT, DO NOT RINSE. hydrOXYzine HCL (ATARAX) 25 mg, 4 times daily LORazepam (ATIVAN) 1 mg tablet SMARTSI.5-1 Tablet(s) By Mouth Daily PRN methocarbamoL (ROBAXIN) 750 mg tablet SMARTSI Tablet(s) By Mouth 4 Times Daily metoclopramide (REGLAN) 5 mg tablet SMARTSI Tablet(s) By Mouth 4 Times Daily nabumetone (RELAFEN) 750 mg tablet PLEASE SEE ATTACHED FOR DETAILED DIRECTIONS norethindrone (AYGESTIN) 5 mg, oral, 3 times daily, If bleeding well controlled/stopped, can decrease to 5 mg twice daily after 5 days. If bleeding increases again, can increase dose to 5 mg 3 times a day. ondansetron (ZOFRAN ODT) 4 mg disintegrating tablet SMARTSI Tablet(s) By Mouth 2-3 Times Daily PRN pregabalin (LYRICA) 50 mg, 3 times daily propranoloL (INDERAL) 20 mg tablet SMARTSI Tablet(s) By Mouth Twice Daily simethicone (MYLICON,GAS-X) 180 mg capsule SMARTSI Capsule(s) By Mouth Twice Daily umeclidinium-vilanteroL (Anoro Ellipta) 62.5-25 mcg/actuation blister with device Daily ALLERGIES: Allergies Allergen Reactions Iodinated Contrast Media Anaphylaxis Morphine Dyspnea Other reaction(s): Altered Heart Rate, Trouble Breathing, chest pain Tramadol Vomiting Other reaction(s): Vomit Citalopram Vomiting Duloxetine Vomiting Other reaction(s): GI Problems SOCIAL HISTORY: - Lives in [place] with Gulshan (partner), Jarule, cat, fish - Doesn't work - Tobacco: No - Alcohol: No - Drugs: No - She feels safe at home FAMILY HISTORY: - Maternal grandmother uterine cancer, by suicide - Mother had hysterectomy at 23 years because of AUB - Von Willebrand cousin - mom's sister's daughter - Denies family history of breast, ovarian, colon, endometrial, or prostate cancer. PHYSICAL EXAM: Vitals: Vitals: 04/20/25 1446 BP: 114/72 General: Pleasant. No acute distress. Cardiovascular: Regular rate and rhythm Pulmonary: Clear to auscultation bilaterally Abd: Soft, non-tender, non-distended, no organomegaly : Normal external female genitalia. On speculum exam, vaginal mucosa well- estrogenized w/o lesions, physiologic discharge, cervix w/o lesions. Per Dr. James, On bimanual exam, small retroflexed uterus, contour difficult to appreciate. No CMT.No adnexal masses or tenderness. Ext: warm and well perfused IMAGING: ECG 12 lead Result Date: 04/03/2025 Impression: SINUS TACHYCARDIA ST and T WAVE ABNORMALITY, CONSIDER INFERIOR ISCHEMIA and anterolateral ischemia ABNORMAL ECG NO PREVIOUS ECGS AVAILABLE Confirmed by Mayur Ospina ([id number]) on 04/03/2025 10:11:[address] Chest WO Contrast Result Date: 04/02/2025 Narrative: PROCEDURE: CT CHEST WO CONTRAST INDICATION: 40 years Female who presents with/for Further characterization of mass on chest on XR TECHNIQUE: As above. This CT scan was performed with oneor more of the following dose optimization techniques: iterative reconstruction, automatic exposurecontrol, and/or manual adjustment of mAs and kVp according to the patient's size. COMPARISON: None FINDINGS: Thoracic inlet: Thyroid and thoracic inlet are without acute findings. Lymph nodes: No axillary, mediastinal, or hilar lymphadenopathy. Residual thymus. Heart: Normal in size. Trace pericardial effusion. Focal soft tissue thickening deep to the xiphoid process abutting the pericardium measuring 2.8 cm x 0.5 cm x 1.7 cm. Great Arteries: Origins of the great arteries within normal limits. Thoracic Aorta: Normal branching pattern. No significant thoracic aorta atherosclerotic disease. Esophagus: No acute findings. Pleural: No pleural effusions. Small amount of fat extends into the inferior aspect of the left major fissure. Upper Abdomen: Bilateral Jules plaques.. Musculoskeletal: Noacute osseous findings. Superficial left breast lesion located at 3 o'clock measuring 1.6 cm x 1.6 cm x 0.9 cm with small eccentric calcification. This lesion measures slightly more attenuating than s imple fluid. Central Airways: Clear without evidence of endobronchial lesion. Lungs: No focal consolidation. Impression: 1. Focal soft tissue thickening deep to the xiphoid process as above without evidence of mass effect. This likely corresponds to the finding on chest x-ray allowing for positional differences. Appearance is not suggestive of mass lesion. Differential considerations include overlapping mediastinal connective tissue or focal pericardial thickening, possibly secondary to lack of fat plane between the sternum and the pericardium at this location. 2. Trace pericardial effusion. 3. Superficial left breast lesion at 3 o'clock measuring up to 1.6 cm as detailed above. Finding may represent cyst or fibroadenoma given patient's age. Recommend correlation with physical exam findings and further evaluation with outpatient breast imaging. END OF IMPRESSION A(n) Incidental - ED actionable finding has been communicated to the ordering or responsible provider via the [facility] system on 04/01/2025 12:58 AM. Receipt of this communication by the responsible provider will be documented in [employer] Actionable Findings upon receiving acknowledgement if applicable, Chilo chang ID [id number]. If this radiology report contains a blank impression section, it is an incomplete radiology report. Please contact the interpreting radiologist or applicable radiology division as soon as possible to obtain the completed interpretation. Workstation ID: [id number] ECG 12 lead Impression: NORMAL SINUS RHYTHM NONSPECIFIC ST AND T WAVE ABNORMALITY ABNORMAL ECG WHEN COMPARED WITH ECG OF 31-Mar-2025 16:09, (UNCONFIRMED) NO SIGNIFICANT CHANGE WAS FOUND Confirmed by Arun La ([id number]) on 04/01/2025 1:38:45 PM X-Ray Chest 2 Views Result Date: 03/31/2025 Narrative: INDICATION: 40 years Female who presents with/for dyspnea TECHNIQUE: Two views of the chest COMPARISON: None FINDINGS: Lines/Tubes/Support: Metallic portions of patient's brassiere. Telemetry leads. Mediastinum: Well-circumscribed opacity with oblique margins anterior to the cardiac apex on the lateral projection. This lesion measures 9 mm x 33 mm. Lungs/Pleura: Symmetrically inflated without focal consolidation, significant pleural effusion, or sizable pneumothorax. Musculoskeletal: No displaced fractures. Abdomen: No acute findings. Impression: 1. No acute cardiopulmonary findings. 2. Well-circumscribed opacity anterior to the cardiac apex on the lateral projection. Recommend further evaluation with CT chest. If this radiology report contains a blank impression section, it is an incomplete radiology report. Please contact the interpreting radiologist or applicable radiology division as soon as possible to obtain the completed interpretation. Workstation ID: [id number] LAB RESULTS: Recent Results (from the past 48 hours) CBC Auto Differential Collection Time: 04/19/25 [...] Range Ferritin 19.6 11.0 - 306.0 ng/mL ASSESSMENT AND PLAN: Ambika Anaya is a pleasant 40 y.o. presenting for follow up of abnormal uterine bleeding. Ambika's prolonged menstrual bleeding improved with Aygestin and she is nolonger experiencing vaginal bleeding. Given her history of uterine fibroids and symptoms, she would like to proceed with a hysteroscopy to evaluate the uterine cavity. She was counseled that the procedure may help with her vaginal bleeding and pain, as well as the risks. At this time, will also pursue a vaginitis swab and UA and culture for her dysuria, urgency and frequency. For her constipation, she has an appointment with her computer mechanic and was counseled on increasing fluids and fiber intake. Patient care discussed with Dr. James, attending. Macho Leavitt M3 [facility] 04/20/25 * Elva Clemons MD - 04/20/2025 2:57 PM EST [facility] Gynecology Note HISTORY OF PRESENT ILLNESS: Ambika Anaya is a pleasant 40 y.o. presenting for AUB follow up. Patient currently taking aygestin 5mg BID with improvement in vb. Reports that she has not had any vb since starting medication. Recent saline sono showed many polyps/ submucosal fibroids. Patient here today to discuss possible surgical management of this. Patient also reporting some changes in discharge/ dysuria today. OBSTETRIC HISTORY: OB History 1 Para 1 Term 1 0 AB 0 Living 1 SAB 0 IAB 0 Ectopic 0 Multiple 0 Live Births 1 Obstetric Comments x 1 LMP: bleeding irregular, most recent was Mar 25-Apr 02 that ended with Aygestin initiation - Cycles: Previously regular, heavy, 3-5 days, menarche 13 - Contraception: Aygestin, didn't like side effects of Provera, history of repeated IUD expulsions - Sexually active with male partner, decreased sexual desire - STIs: No PAP history Last pap 01/13/2025 - normal PAST MEDICAL HISTORY: Past Medical History: Diagnosis Date Acute asthma (HCC) Anemia Anxiety Gastroparesis IBS (irritable bowel syndrome) Positive NURIA (antinuclear antibody) previously told fibromyalgia PAST SURGICAL HISTORY: Past Surgical History: Procedure Laterality Date LIPOMA RESECTION MEDICATIONS: Current Outpatient Medications Medication Instructions albuterol (PROAIR HFA,VENTOLIN HFA) 90 mcg inhaler 2 puffs azelastine (ASTELIN) 137 mcg (0.1 %) nasal spray 1 spray, 2 times daily PRN blood pressure test kit-large kit USE TO CHECK BLOOD PRESSURE TWICE DAILY DIRECTED budesonide-formoteroL (SYMBICORT) 80-4.5 mcg inhaler 2 puffs, 2 times daily dnjobgudxp-bolltihjnasti-oboihanx (FIORICET) 50-325-40 mg tablet TOME ADRY TABLETA CADA OCHO HORAS CUANDO SEA NECESARIO FOR 30 DAYS cholecalciferol (VITAMIN D3) 1,000 unit tablet SMARTSI Tablet(s) By Mouth Daily Creon 24,000-76,000 -120,000 unit capsule SMARTSI Capsule(s) By Mouth 3 Times Daily cyanocobalamin (vitamin B-12) 1,000 mcg, sublingual, Daily cyclobenzaprine (FLEXERIL) 5 mg, 3 times daily Dexilant 60 mg capsule SMARTSI Capsule(s) By [...] THOROUGHLY TWICE DAILY. SPIT, DO NOT RINSE. hydrOXYzine HCL (ATARAX) 25 mg, 4 times daily LORazepam (ATIVAN) 1 mg tablet SMARTSI.5-1 Tablet(s) By Mouth Daily PRN methocarbamoL (ROBAXIN) 750 mg tablet SMARTSI Tablet(s) By Mouth 4 Times Daily metoclopramide (REGLAN) 5 mg tablet SMARTSI Tablet(s) By Mouth 4 Times Daily nabumetone (RELAFEN) 750 mg tablet PLEASE SEE ATTACHED FOR DETAILED DIRECTIONS norethindrone (AYGESTIN) 5 mg, oral, 3 times daily, If bleeding well controlled/stopped, can decrease to 5 mg twice daily after 5 days. If bleeding increases again, can increase dose to 5 mg 3 times a day. ondansetron (ZOFRAN ODT) 4 mg disintegrating tablet SMARTSI Tablet(s) By Mouth 2-3 Times Daily PRN pregabalin (LYRICA) 50 mg, 3 times daily propranoloL (INDERAL) 20 mg tablet SMARTSI Tablet(s) By Mouth Twice Daily simethicone (MYLICON,GAS-X) 180 mg capsule SMARTSI Capsule(s) By Mouth Twice Daily umeclidinium-vilanteroL (Anoro Ellipta) 62.5-25 mcg/actuation blister with device Daily ALLERGIES: Allergies Allergen Reactions Iodinated Contrast Media Anaphylaxis Morphine Dyspnea Other reaction(s): Altered Heart Rate, Trouble Breathing, chest pain Tramadol Vomiting Other reaction(s): Vomit Citalopram Vomiting Duloxetine Vomiting Other reaction(s): GI Problems Social History[1] FAMILY HISTORY: - Denies family history of VTE or bleeding disorders - Denies family history of breast, ovarian, colon, or prostate cancer. Patient reports hx of great grandmother with uterine cancer unsure of age at dx PHYSICAL EXAM: Vitals: Vitals: 04/20/25 1446 BP: 114/72 General: Pleasant. No acute distress. Cardiovascular: Regular rate and rhythm Pulmonary: Clear to auscultation bilaterally Abd: Soft, non-tender, non-distended, no organomegaly : Normal external female genitalia. On speculum exam, vaginal mucosa well- estrogenized w/o lesions, physiologic discharge, cervix w/o lesions. Per Dr. James, On bimanual exam, small retroflexed uterus, contour difficult to appreciate. No CMT. No adnexal masses or tenderness. Ext: warm and well perfused IMAGIN03/17/25 Female Pelvis (Signed Final 03/18/2025 04:21 pm) PATIENT INFO: ID #: [id number] : [birth year] (40 yrs)(F) Name: AMBIKA COLLINS Visit Date: 03/17/2025 04:41 pm RYAN PERFORMED BY: Attending: Nancy Barrientos MD Performed By: Larissa Go RDMS Referred By: MILLY NICOLE Location: [facility] [place] [place] Reproductive Endocrinology SERVICE(S) PROVIDED: Hysterosonogram [id number] Cath/Injection for Hysterosonogram [id number] INDICATIONS: Benign neoplasm of connective and other D21.9 Excessive and frequent menstruation with N92.0 CLINICAL INFORMATION: Age: 40 UTERUS: Size (cm) L: 7.26 W: 4.98 H: 4.22 ENDOMETRIUM: Thickness: 13.2 mm RIGHT OVARY: Size(cm): 2.94 x 2.17 x 1.25 Vol(ml): 4.18 LEFT OVARY: Size(cm): 2.39 x 2.77 x 1.45 Vol(ml): 5.03 COMMENTS: SALON RECEPTIONIST Scan-saline sonohysterogram Description of Procedure: The patient was identified and consent was reviewed and signed. Written consent is in the chart. All of her questions were answered and she wished to proceed with the procedure today. The procedure was then carried out routinely. A speculum was placed in the vagina and a betadine prep was done of the cervix. A saline sonohysterogram catheter was placed without difficulty and the 1 cc balloon was inflated with normal saline to keep the catheter in place. 20 cc syringe filled with normal sterile saline was attached to the catheter and uterus was distended to visualize the uterine cavity. The transvaginal ultrasound probe was placed into the vagina and used to document the procedure. Air bubbles were injected to visualize tubal patency. Endometrial cavity with multiple solid structures 10mm, 11mm, 14mm, 8mm and others The procedure was tolerated well and all instruments were removed by the end of the procedure. There were no obvious complications. She was discharged routinely under her own care after the completion of the procedure. Nancy Floyd Electronically Signed Final Report 03/18/2025 04:21 pm IMPRESSION: Transvaginal ultrasound showed a retroverted uterus with multiple fibroids: Intramural with submucous component/anterior: 2.8 x 2 x 2.3 cm Intramural/fundal: 1.7 x 1.4 x 1.5 cm Endometrium 13.2 mm, heterogenously hyperechoic Both ovaries normal with residual corpus luteum 1.4 cm in the right ovary On saline infusion sonohysterogram: Endometrial cavity with multiple solid structures measuring 10 mm 11 mm 14 mm 8 mm and other smaller solid structures suggestive of submucous fibroids versus endometrial polyps. The anterior intramural fibroid had a submucous component pushing the endometrium posteriorlyapproximately 1.2 cm into the cavity LAB RESULTS: Recent Results (from the past 48 hours) CBC Auto Differential Collection Time: 04/19/25 [...] Range Ferritin 19.6 11.0 - 306.0 ng/mL ASSESSMENT AND PLAN: Ambika Anaya is a pleasant 40 y.o. presenting for follow up of AUB. We discussed recommendation for hysteroscopy D&C possible polypectomy/ myomectomy for diagnosis and treatment of aub. Consents signed and in the chart. UA/ and vaginitis panel collected. Reviewed that agyestin is not an approved for of contraception, patient declines additional method at this time. Patient care discussed with Dr. James, attending. Elva Clemons MD PGY-4 [facility] 04/20/25 [1] Social History Socioeconomic History Marital status: Spouse name: Not on file Number of children: Not on file Years of education: Not on file Highest education level: Not on file Occupational History Not on file Tobacco Use Smoking status: Never Smokeless tobacco: Never Vaping Use Vaping status: Never Used Substance and Sexual Activity Alcohol use: Not Currently Drug use: Never Sexual activity: Defer Other Topics Concern Not on file Social History Narrative Living partner son age 20; feels safe; not working documented in this encounter Plan of Treatment Upcoming Encounters Date Type Department Care Team (Latest Contact Info) Description 04/28/2025 1:45 PM EST Infusion [facility] Building Infusion [facility] [address] [place] [address] 04/30/2025 7:15 AM EST Hospital Encounter [facility] Operating Room [address] [place] [address] Anneliese James MD [address] [place] [id number] 04/30/2025 7:15 AM EST - 04/30/2025 8:30 AM EST Surgery [facility] Operating Room [address] [place] [address] Anneliese James MD [address] [place] [id number] HYSTEROSCOPY MYOMECTOMY WITH MYOSURE, WITH ENDOMETRIAL SAMPLING AND/OR POLYPECTOMY, POSSIBLE DILATION AND CURETTAGE [[id number] (CPT )] 06/14/2025 3:00 PM EST Office Visit [facility] [address]th [address] [place] [address], [place] [id number] Head Of Partner Development: Zcahary Zavaleta MD [address] [place] [address] 07/12/2025 2:00 PM EST Lab [facility] ACC Draw Site Fifth Floor [address] [place] [address] 07/12/2025 3:00 PM EST Follow-Up [facility] BMT Clinic [address] [place] [address] Shavon Roberson, YAIMA [address] [place] [address] Scheduled Procedures Name Priority Associated Diagnoses Date/Ti me HYSTEROSCOPY MYOMECTOMY WITH MYOSURE, WITH ENDOMETRIAL SAMPLING AND/OR POLYPECTOMY, POSSIBLE DILATION AND CURETTAGE Abnormal uterine bleeding 04/30/2025 7:15 AM EST documented as of this encounter Goals Goal Patient Goal Type Associated Problems Recent Progress Patient-Stated? Author Autogenera chad Goal Care Plan Autogenerated Problem No Chelsea Lindo documented as of this encounter Procedures * Due to [place] [employer] law, this organization might not be sharing negative HIV tests. Procedure Name Priority Date/Time Associated Diagnosis Comments [facility]ANCED VAGINITIS RNA PANEL, [id number] Routine 04/20/2025 4:59 PM EST Pelvic pain URINALYSIS W/REFLEX TO MICROSCOPIC (NO CULTURE) Routine 04/20/2025 4:59 PM EST Pelvic pain URINE CULTURE, ROUTINE Routine 04/20/2025 4:59 PM EST Pelvic pain documented in this encounter Results * Due to [place] [employer] law, this organization might not be sharing negative HIV tests. * [facility] Advanced Vaginitis RNA Panel, TMA (04/20/2025 4:59 PM EST) Bacterial Vaginosis RNA NEGATIVE NEGATIVE 04/21/2025 11:25 AM EST [facility] Eva species RNA NOT DETECTED NOT DETECTED 04/21/2025 11:25 AM EST [facility] Eva glabrata RNA NOT DETECTED NOT DETECTED 04/21/2025 11:25 AM EST [facility] Trichomonas vaginalis RNA NOT DETECTED NOT DETECTED 04/21/2025 11:25 AM EST [facility] Comment: Eva species C. albicans, C. tropicalis, C. parapsilosis, and/or C. dubliniensis can be detected, but not differentiated, in the Eva spp. result. Swab Vaginal structure / Unknown Non-Blood Collection / Unknown 04/20/2025 4:59 PM EST 04/20/2025 8:08 PM EST Narrative [facility] - 04/21/2025 11:25 AM EST [facility] Received Date: Anneliese James MD LAB BODY FLUIDS AND STOOLS O RDERABLES Final Result [facility] [address] [facility] [address], [place] [address], [place] [phone] [facility] [address] [facility] [address], [place] [address], [place] [phone] * (ABNORMAL) Urinalysis W/Reflex to Microscopic (No Culture) (04/20/2025 4:59 PM EST) Color, Urine Light Yellow Colorless, Light Yellow, Yellow, Dark Yellow 04/20/2025 8:19 PM EST [facility] Clarity, Urine Clear Clear 04/20/2025 8:19 PM [facility] Specific Arnot, Urine 1.030(H) <1.030 04/20/2025 8:19 PM EST [facility] pH, Urine 6.5 4.6 - 8.0 04/20/2025 8:19 PM [facility] Protein, Urine Trace(A) Negative 04/20/2025 8:19 PM EST [facility] Glucose, Urine Normal Normal 04/20/2025 8:19 PM EST [facility] [facility] Ketones, Urine Negative Negative 04/20/2025 8:19 PM EST [facility] Bilirubin, Urine Negative Negative 04/20/2025 8:19 PM EST [facility] Blood, Urine Negative Negative 04/20/2025 8:19 PM [facility] Nitrite, Urine Negative Negative 04/20/2025 8:19 PM [facility] Urobilinogen, Urine Normal Normal 04/20/2025 8:19 PM EST [facility] Leukocyte Esterase, Urine Negative Negative 04/20/2025 8:19 PM EST [facility] WBC, Urine 1 0 - 2 /HPF 04/20/2025 8:19 PM EST [facility] RBC, Urine 1 0 - 2 /HPF 04/20/2025 8:19 PM EST [facility] Hyaline Casts, Urine 0 0 - 2 /LPF 04/20/2025 8:19 PM EST [facility] Squamous Epithelial Cells, Urine <1 /HPF 04/20/2025 8:19 PM EST [facility] Bacteria, Urine None Seen None /HPF /HPF 04/20/2025 8:19 PM EST [facility] Mucus, Urine Rare /LPF 04/20/2025 8:19 PM EST [facility] Urine Urine specimen collection, clean catch / Unknown Non-Blood Collection / Unknown 04/20/2025 4:59 PM EST 04/20/2025 8:09 PM EST Anneliese James MD LAB URINE ORDERABLES Final R esult [facility] [address] [place] [address], * Urine culture (04/20/2025 4:59 PM EST) Culture No growth 04/21/2025 6:34 PM EST [facility] Urine Urine specimen collection, clean catch / Unknown Non-Blood Collection / Unknown 04/20/2025 4:59 PM EST 04/20/2025 8:09 PM EST Narrative [facility] 04/21/2025 6:34 PM EST [facility] Received Date: MICRO NUMBER: [id number] SPECIMEN QUALITY: Adequate SOURCE: URINE CLEAN CATCH STATUS: FINAL us Anneliese James MD LAB MICROBIOLOGY - GENERAL O RDERABLES Final Result [facility] [address] [facility] [address], [place] [address], [place] [phone] [facility] [address] [facility] [address], [place] [address], [place] [phone] documented in this encounter Visit Diagnoses Diagnosis Pelvic pain- Primary Abnormal uterine bleeding Unspecified disorder of menstruation and other abnormal bleeding from female genital tract documented in this encounter Additional Health Concerns Active Problems Noted Date Diagnosed Date Autogenerated Problem 04/21/2025 documented as of this encounter Care Teams Amusement Park Worker Relationship Specialty Start Date End Date Petra Wiley [address] [place] [address] PCP - General Family Medicine 03/19/24 documented as of this encounter
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
[2025-04-21 16:00] VITALS: BP 107/57; PULSE 101; BMI 29.8
--- OUTSIDE RECORDS SUMMARY | 2025-04-21 18:46 | XMS_ITS | Encounter Summary ---
Author Organization [employer] Address [address] [place] [address] Care Team Providers Care Admissions Counselor Name Role Phone Petra Wiley MEAL COOK Primary Care Provider Willard Waters Unavailable [phone] KesslerSeptember Unavailable Juan Sandra MD Unavailable [phone] Brigid Guy NP Unavailable Vicente Mooney MD Unavailable Beth Rai MD Unavailable Michell Espinoza Unavailable Christopher Henry RN Unavailable [phone] Radha Chatman Unavailable Encounter Details Date Type Department Care Team (Late st Contact Info) Description 12/21/2024 Orders Only [facility] MEDICINE [address] [place], [place] [phone] Jailene Vitale CNM [address], [place] [phone] Social History Tobacco Use Types Packs/Day Years [...] Care Team (Late st Contact Info) Description 05/10/2025 2:00 PM EST Clinical Support [facility] DIABETES/NUTRITION [address] [place] [address] [place] [address] documented as of this encounter Procedures Procedure Name Priority Date/Time Associated Diagnosis Comments PAP SMEAR Routine 10/06/2024 12:00 AM EDT documented in this encounter Results * Pap Smear (10/06/2024 12:00 AM EDT) Swab us Vicente Mooney MD LAB CYTOLOGY ORDERABLES Final Re sult [facility] [address] [place] [address] [phone] documented in this encounter Visit Diagnoses Not on filedocumented in this encounter Additional Health Concerns Assessment Noted Time PHQ-9 Depression Total Score: 8 11/26/19 25 5:52 PM EDT documented as of this encounter Care Teams Admissions Counselor Relationship Specialty Start Date End Date Petra Wiley FNP [address] [place] [address] PCP - General Family Medicine 03/17/24 Willard Waters [address] [place] [address] Rheumatology 05/17/24Kessler, Sumaya [address] [facility] [address] [place] [address] Gastroenterology 05/17/24 Juan Sandra MD [address] [place] [address] Hematology and Oncology 05/17/24 Brigid Guy NP [address] [place] [address] Urology 05/17/24 Vicente Mooney MD [address] [place] [address] [address] [place] [address] Obstetrics and Gynecology 05/17/24 Beth aRi MD [address] [place] [address] [address] [place] [address] Neurology 05/17/24 Michell Espinoza [address] [facility] [address] [place] [address] Cardiology 05/17/24 Christopher Henry RN [address] [place] [phone] Registered Nurse Family Medicine 03/12/25 Radha Chatman 03/12/25 Shelia Zheng Spanish Literature ProfessorTapping Machine Operator 09/26/23 documented as of this encounter
--- OUTSIDE RECORDS SUMMARY | 2025-04-21 18:46 | XMS_ITS | Encounter Summary ---
Author Organization [facility] Address [address] [place] [address] Care Team Providers Care Vehicle And Equipment Cleaner Name Role Phone Petra Wiley Primary Care Provider [phone] Reason for Visit * Reason Comments Med Change Request Encounter Details Date Type Department Care Team (Late st Contact Info) Description 04/19/2025 Refill [facility] [address] [place], [place] [phone] Shavon Roberson NP [address] [place], [place] [phone] Social History Tobacco Use Types Packs/Day Years [...] encounter Miscellaneous Notes * Telephone Encounter - Shavon Roberson NP - 04/19/2025 3:38 PM EST Ordered as sublingual instead documented in this encounter Plan of Treatment Upcoming Encounters Date Type Department Care Team (Latest Contact Info) Description 04/28/2025 1:45 PM EST Infusion [facility] [address] [place] [phone] 04/30/2025 7:15 AM EST Hospital Encounter [facility] Operating Room [address] [place] [address] Anneliese James MD [address] [place] [address] 04/30/2025 7:15 AM EST - 04/30/2025 8:30 AM EST Surgery [facility] Operating Room [address] [place] [address] Anneliese James MD [address] [place] [address] HYSTEROSCOPY MYOMECTOMY WITH MYOSURE, WITH ENDOMETRIAL SAMPLING AND/OR POLYPECTOMY, POSSIBLE DILATION AND CURETTAGE [16157 (CPT )] 06/14/2025 3:00 PM EST Office Visit [facility] [address] [place] [address], [place] [phone] Dynamite Packing Machine Operator: Zachary Zavaleta MD [address] [place] [address] 07/12/2025 2:00 PM EST Lab [facility] ACC Draw Site Fifth Floor [address] [place] [address] 07/12/2025 3:00 PM EST Follow-Up [facility] [address] [place] [address] Shavon Roberson NP [address] [place], [place] [phone] Scheduled Procedures Name Priority Associated Diagnoses Date/Ti de HYSTEROSCOPY MYOMECTOMY WITH MYOSURE, WITH ENDOMETRIAL SAMPLING AND/OR POLYPECTOMY, POSSIBLE DILATION AND CURETTAGE Abnormal uterine bleeding 04/30/2025 7:15 AM EST documented as of this encounter Visit Diagnoses Not on filedocumented in this encounter Care Teams Vehicle And Equipment Cleaner Relationship Specialty Start Date End Date Petra Wiley [address] [place] [phone] PCP - General Family Medicine 03/19/24 documented as of this encounter
--- OUTSIDE RECORDS SUMMARY | 2025-04-21 18:46 | XMS_ITS | Clinical Summary ---
Author Organization [facility] Address [address] [place] [address] Care Team Providers Care Project Management Instructor Name Role Phone Petra Wiley Primary Care Provider [phone] Allergies Active Allergy Reactions Criticality Noted Date Comments Citalopram Vomiting 09/12/2021 Duloxetine Vomiting 12/03/2014 Other reaction(s): GI Problems Iodinated Contrast Media Anaphylaxis High 07/04/2022 Morphine Dyspnea High 01/14/2012 Other reaction(s): Altered Heart Rate, Trouble Breathing, chest pain Tramadol Vomiting High 12/03/2014 Other reaction(s): Vomit Medications albuterol (PROAIR HFA,VENTOLIN HFA) 90 mcg inhaler Inhale 2 puffs by mouth. Active azelastine (ASTELIN) 137 mcg (0.1 %) nasal spray 1 spray 2 times daily as needed. Active blood pressure test kit-large kit USE TO CHECK BLOOD PRESSURE TWICE DAILY DIRECTED Active budesonide-formot Snehal (SYMBICORT) 80-4.5 mcg inhaler Inhale 2 puffs by mouth 2 times daily. Active butalbital-acetam inophen-caffeine (FIORICET) 50-325-40 mg tablet TOME ADRY TABLETA CADA OCHO HORAS CUANDO SEA NECESARIO FOR 30 DAYS Active cholecalciferol (VITAMIN D3) 1,000 unit tablet SMARTSI Tablet(s) By Mouth Daily Active cyclobenzaprine (FLEXERIL) 5 mg tablet Take 5 mg by mouth 3 times daily. Active dicyclomine (BENTYL) 10 mg capsule TOME ADRY C PSULA MINDA VECES AL D A Active famotidine (PEPCID) 40 mg tablet SMARTSI Tablet(s) By Mouth Every Night Active fexofenadine (KALLIE) 180 mg tablet SMARTSI Tablet(s) By Mouth Daily Active fluoride, sodium, 1.1 % paste APPLY A SMEAR OF PASTE ON THE BRUSH BRUSH THOROUGHLY TWICE DAILY. SPIT, DO NOT RINSE. Active Creon 24,000-76,000 -120,000 unit capsule SMARTSI Capsule(s) By Mouth 3 Times Daily Active LORazepam (ATIVAN) 1 mg tablet SMARTSI.5- 1 Tablet(s) By Mouth Daily PRN Active metoclopramide (REGLAN) 5 mg tablet SMARTSI Tablet(s) By Mouth 4 Times Daily Active nabumetone (RELAFEN) 750 mg tablet PLEASE SEE ATTACHED FOR DETAILED DIRECTIONS Active ondansetron (ZOFRAN ODT) 4 mg disintegrating tablet SMARTSI Tablet(s) By Mouth 2-3 Times Daily PRN Active propranoloL (INDERAL) 20 mg tablet SMARTSI Tablet(s) By Mouth Twice Daily Active simethicone (MYLICON,GAS-X) 180 mg capsule SMARTSI Capsule(s) By Mouth Twice Daily Active Dexilant 60 mg capsule SMARTSI Capsule(s) By Mouth Daily Active umeclidinium-graciela nteroL (Anoro Ellipta) 62.5-25 mcg/actuation blister with device Inhale by mouth once a day. Active pregabalin (LYRICA) 50 mg capsule Take 50 mg by mouth 3 times a day. Active methocarbamoL (ROBAXIN) 750 mg tablet SMARTSI Tablet(s) By Mouth 4 Times Daily Active hydrOXYzine HCL (ATARAX) 25 mg tablet Take 25 mg by mouth 4 (four) times daily. 2024 Active norethindrone (AYGESTIN) 5 mg tablet Take 1 tablet (5 mg total) by mouth 3 times a day. If bleeding well controlled/st opped, can decrease to 5 mg twice daily after 5 days. If bleeding increases again, can increase dose to 5 mg 3 times a day. 90 tablet 2 025 2025 Active cyanocobalamin, vitamin B-12, 1,000 mcg tablet, sublingual Place 1 tablet (1,000 mcg total) under the tongue once a day. 90 tablet 1 Active cyanocobalamin 1,000 mcg tablet Take 1,000 mcg by mouth daily. 024 2024 Discontinued medroxyPROGESTERo ne (PROVERA) 10 mg tablet Take 1 tablet (10 mg total) by mouth 3 times a day. Provera taper: Take 1 tablet 3 times daily for 7 days, then decrease to 1 tablet 2 times per day for 7 days, then decrease to 1 tablet daily for 7 days. I 60 tablet 3 025 2024 Discontinued medroxyPROGESTERo ne (PROVERA) 10 mg tablet Take 2 tablets (20 mg total) by mouth 3 times a day. 180 tablet 025 2024 Discontinued(S top Taking at Discharge) norethindrone (AYGESTIN) 5 mg tablet Take 4 tablets (20 mg total) by mouth once a day. 120 tablet 025 2024 Discontinued(S top Taking at Discharge) cyanocobalamin, vitamin B-12, 1,000 mcg/15 mL liquid Take 1,000 mcg by mouth once a day. 240 mL 1 025 2024 Discontinued(A vailability) Active Problems Problem Noted Date Diagnosed Date Abnormal uterine bleeding du e to submucousal leiomyoma of uterus 04/20/2025 Iron deficiency 04/19/2025 Subcutaneous nodule of abdominal wall 04/15/2024 Assessment [...] Encounters Date Type Department Care Team Description 04/21/2025 Telephone [facility] [address] [place] [address] Traffic Maintenance Supervisor: Elva Figueroa MD 04/20/2025 3:00 PM EST Office Visit [address] [address] Traffic Maintenance Supervisor: Elva Figueroa MD Pelvic pain (Primary Dx) 04/20/2025 Results Follow-Up [facility] Obstetrics and Gynecology [address] [place] [address] Traffic Maintenance Supervisor: Anneliese Blanco MD 04/20/2025 Prep for Case [facility] Obstetrics and Gynecology [address] [place] [address] Traffic Maintenance Supervisor: Anneliese Blanco MD Abnormal uterine bleeding (Primary Dx) 04/19/2025 2:20 PM EST Follow-Up [facility] [address] [place] [address] Shavon Roberson NP Iron deficiency (Primary Dx) 04/19/2025 1:20 PM EST Lab [facility] ACC Draw Site Fifth Floor [address] [place] [address] Iron deficiency 04/19/2025 Refill [facility] [address] [place] [address] Shavon Roberson NP 04/01/2025 myChart Message [address] [address] Traffic Maintenance Supervisor: Briadna Sim, merchant banker 04/01/[address] [address] Traffic Maintenance Supervisor: Kate Duenas Telephone Intake, Staff 03/31/2025 6:50 PM EDT - 04/01/2025 1:54 AM EDT Emergency [facility] Emergency Department [address] [place] [address] Rob Ramírez MD Palpitations (Primary Dx); Anxiety; Abnormal uterine bleeding Discharge Disposition: Home or Self Care () 03/31/2025 3:00 PM EDT Office Visit [address] [address] Traffic Maintenance Supervisor: Melvin Houston MD Abnormal uterine bleeding (AUB) (Primary Dx); Fibroid; Uterine polyp; Tachycardia 03/30/[address] [address] Traffic Maintenance Supervisor: Kate Duenas Telephone Intake, Staff 03/23/[address] [address] Traffic Maintenance Supervisor: Milly Campos PA 03/18/2025 myChart Message [address] [address] Traffic Maintenance Supervisor: Milly Campos PA Worries about medication 03/17/2025 10:07 AM EDT - 03/17/2025 11:59 PM EDT Hospital Encounter [facility] - Second Floor [address] [place] [address] Fibroid; Menorrhagia with regular cycle Discharge Disposition: Home or Self Care () 03/09/[address] [address] Traffic Maintenance Supervisor: Kate Duenas Telephone Intake, Staff 03/04/2025 3:00 PM EDT Office Visit [facility] [address] [place] [address] Traffic Maintenance Supervisor: Milly Campos PA Fibroid (Primary Dx); Menorrhagia with regular cycle; Anemia, unspecified type 03/04/2025 Telephone [facility] Rheumatology [facility] [address] [place] [address] Traffic Maintenance Supervisor: Newton Rangel DO 02/23/2025 Documentation [facility] [address] [place] [address] Anneliese Mcfadden RN 02/09/2025 10:15 AM EDT Office Visit [facility] Dermatology Clinic 4th [address] [place] [address], [place] [phone] Traffic Maintenance Supervisor: Breann Tang MD Raynaud's phenomenon without gangrene (Primary Dx) from Last 3 Months Social History Tobacco Use Types Packs/Day Years Used Date Smoking Tobacco: Never Smokeless Tobacco: Never Tobacco Cessation:Counseling Given: No Alcohol Use Standard Drinks/Week Comments Not Currently [...] Pressure 114/72 04/20/2025 2:46 PM EST Pulse 97 04/19/2025 2:00 PM EST Temperature 36.7 C (98 F) 04/19/2025 2:00 PM EST Respiratory Rate 18 04/19/2025 2:00 PM EST Oxygen Saturation 100% 04/19/2025 2:00 PM EST Inhaled Oxygen Concentration - - Weight 68.5 kg (151 lb) 04/20/2025 2:46 PM EST Height 149.9 cm (4' 11 ) 11/02/2024 2:02 PM EDT Body Mass Index 30.5 11/02/2024 2:02 PM EDT Plan of Treatment Upcoming Encounters Date Type Department Care Team (Latest Contact Info) Description 04/28/2025 1:45 PM EST Infusion [facility] ACC Building Infusion Clinic [address] [place] [address] 04/30/2025 7:15 AM EST Hospital Encounter [facility] Operating Room [address] [place] [address] Anneliese James MD [address] [place] [address] 04/30/2025 7:15 AM EST - 04/30/2025 8:30 AM EST Surgery [facility] Operating Room [address] [place] [address] Anneliese James MD [address] [place] [address] HYSTEROSCOPY MYOMECTOMY WITH MYOSURE, WITH ENDOMETRIAL SAMPLING AND/OR POLYPECTOMY, POSSIBLE DILATION AND CURETTAGE [83753 (CPT )] 06/14/2025 3:00 PM EST Office Visit [facility] Dermatology Clinic 4th Floor [address] [place] [address], [place] [phone] Traffic Maintenance Supervisor: Zachary Zavaleta MD [address] [place] [address] 07/12/2025 2:00 PM EST Lab [facility] ACC Draw Site Fifth Floor [address] [place] [address] 07/12/2025 3:00 PM EST Follow-Up [facility] [address] [place] [address] Shavon Roberson, YAIMA [address] [place] [address] Scheduled Procedures Name Priority Associated Diagnoses Date/Ti me HYSTEROSCOPY MYOMECTOMY WITH MYOSURE, WITH ENDOMETRIAL SAMPLING AND/OR POLYPECTOMY, POSSIBLE DILATION AND CURETTAGE Abnormal uterine bleeding 04/30/2025 7:15 AM EST Health Maintenance Due Date Last Done Comments [...] ual Screening 06/17/2024 COVID-19 Vaccine (1 - 2024-2 6 season) 2025 Influenza Vaccine (#1) 2025 6, 03/22/2015, 03/06/2013 Cervical Cancer Screening 01/14/2028 Pap Smear 01/14/2028 01/13/2025, 09/16, 11/12/2019 Diabetes Screening 03/31/2028 03/31/2025, 0 01/18/2025, 01/08/2025, Additional history exists HIV Screening Completed 03/18/2024, 03/18/2024 Pneumococcal Vaccine: Pediat rebeca (0-5 Years) and At-Risk Patients (6-50 Years) Completed 05/13/2024 Goals Goal Patient Goal Type Associated Problems Recent Progress Patient-Stated? Author Autogenera chad Goal Care Plan Autogenerated Problem No Chelsea Lindo Procedures * Due to [place] state law, this organization might not be sharing negative HIV tests. Procedure Name Priority Date/Time Associated Diagnosis Comments URINALYSIS W/REFLEX TO MICROSCOPIC (NO CULTURE) Routine 04/20/2025 4:59 PM EST Pelvic pain SURESWAB ADVANCED VAGINITIS RNA PANEL, [id number] Routine 04/20/2025 4:59 PM EST Pelvic pain URINE CULTURE, ROUTINE Routine 4:59 PM EST Pelvic pain FERRITIN Routine 04/19/2025 1:24 PM EST Iron deficiency IRON SATURATION Routine 04/19/2025 1:24 PM EST Iron deficiency FOLATE Routine 04/19/2025 1:24 PM EST Iron deficiency VITAMIN B12 Routine 04/19/2025 1:24 PM EST Iron deficiency CBC AUTO DIFFERENTIAL STAT 04/19/2025 1:24 PM EST Iron deficiency IRON, TIBC AND FERRITIN PANEL (5616) Routine 04/19/2025 1:24 PM EST Iron deficiency VITAMIN B12 Routine 04/19/2025 1:24 PM EST Iron deficiency CT CHEST WO CONTRAST STAT 03/31/2025 11:17 PM EDT D-DIMER, QUANTITATIVE STAT 03/31/2025 8:58 PM EDT MARSH TOP Routine 03/31/2025 7:59 PM EDT LAVENDER TOP Routine 03/31/2025 7:59 PM EDT EXTRA TUBES Routine 03/31/2025 7:59 PM EDT XR CHEST 2 VW STAT 03/31/2025 7:56 PM EDT HCG, QUALITATIVE, SERUM STAT 03/31/20 7:39 PM EDT LIPASE STAT 03/31/2025 7:39 PM EDT HEPATIC FUNCTION PANEL STAT 7:39 PM EDT TSH REFLEX FREE T4 STAT 03/31/2025 7: 39 PM EDT MAGNESIUM STAT 03/31/2025 7:39 PM EDT BASIC METABOLIC PANEL STAT 03/31/2025 7:39 PM EDT TYPE AND SCREEN STAT 03/31/2025 7:38 PM EDT CBC AUTO DIFFERENTIAL STAT 03/31/2025 5:34 PM EDT ECG 12-LEAD STAT 03/31/2025 5:10 PM EDT ECG 12-LEAD Routine 03/31/2025 4:09 PM EDT HEART & VASCULAR - SCANNED 03/31/2025 US OB SONOHYSTEROGRAPHY Routine 03/17/20 11:08 AM EDT Fibroid Menorrhagia with regular cycle CBC Routine 03/17/2025 10:10 AM EDT Abnormal uterine bleeding (AUB) LAB - SCANNED 02/24/2025 from Last 3 Months Results * Due to [place] state law, this organization might not be sharing negative HIV tests. * SureSwab Advanced Vaginitis RNA Panel, TMA (04/20/2025 4:59 PM EST) Bacterial Vaginosis RNA NEGATIVE NEGATIVE 04/21/2025 11:25 AM EST [facility] Eva species RNA NOT DETECTED NOT DETECTED 04/21/2025 11:25 AM EST [facility] Eva glabrata RNA NOT DETECTED NOT DETECTED 04/21/2025 11:25 AM EST [facility] Trichomonas vaginalis RNA NOT DETECTED NOT DETECTED 04/21/2025 11:25 AM EST [facility] Comment: Eva species C. albicans, C. tropicalis, C. parapsilosis, and/or C. dubliniensis can be detected, but not differentiated, in the Eva spp. result. Swab Vaginal structure / Unknown Non-Blood Collection / Unknown 04/20/2025 4:59 PM EST 04/20/2025 8:08 PM EST Narrative [facility] 04/21/2025 11:25 AM EST [facility] Received Date:[id number] Anneliese James MD LAB BODY FLUIDS AND STOOLS O RDERABLES Final Result [facility] [address] [facility] 3rd Floor, [place] [address], [place] [phone] [facility] [address] [facility] 3rd Floor, [place] [address], [place] [phone] * (ABNORMAL) Urinalysis W/Reflex to Microscopic (No Culture) (04/20/2025 4:59 PM EST) Color, Urine Light Yellow Colorless, Light Yellow, Yellow, Dark Yellow 04/20/2025 8:19 PM EST [facility] Clarity, Urine Clear Clear 04/20/2025 8:19 PM [facility] Specific [place], Urine 1.030(H) <1.030 04/20/2025 8:19 PM [facility] pH, Urine 6.5 4.6 - 8.0 04/20/2025 8:19 PM EST [facility] Protein, Urine Trace(A) Negative 04/20/2025 8:19 PM EST [facility] Glucose, Urine Normal Normal 04/20/2025 8:19 PM EST [facility] Ketones, Urine Negative Negative 04/20/2025 8:19 PM EST [facility] Bilirubin, Urine Negative Negative 04/20/2025 8:19 PM EST [facility] Blood, Urine Negative Negative 04/20/2025 8:19 PM EST [facility] Nitrite, Urine Negative Negative 04/20/2025 8:19 PM EST [facility] Urobilinogen, Urine Normal Normal 04/20/2025 8:19 PM EST [facility] Leukocyte Esterase, Urine Negative Negative 04/20/2025 8:19 PM EST [facility] WBC, Urine 1 0 - 2 /HPF 04/20/2025 8:19 PM EST [facility] RBC, Urine 1 0 - 2 /HPF 04/20/2025 8:19 PM EST [facility] Hyaline Casts, Urine 0 0 - 2 /LPF 04/20/2025 8:19 PM EST [facility] Squamous Epithelial Cells, Urine <1 /HPF 04/20/2025 8:19 PM EST [facility] Bacteria, Urine None Seen None /HPF /HPF 04/20/2025 8:19 PM EST [facility] Mucus, Urine Rare /LPF 04/20/2025 8:19 PM EST [facility] Urine Urine specimen collection, clean catch / Unknown Non-Blood Collection / Unknown 04/20/2025 4:59 PM EST 04/20/2025 8:09 PM EST us Anneliese James MD LAB URINE ORDERABLES Final R esult [facility] [address] [place] [address], * Urine culture (04/20/2025 4:59 PM EST) Culture No growth 04/21/2025 6:34 PM EST [facility] Urine Urine specimen collection, clean catch / Unknown Non-Blood Collection / Unknown 04/20/2025 4:59 PM EST 04/20/2025 8:09 PM EST Narrative [facility] 04/21/2025 6:34 PM EST [facility] Received Date: MICRO NUMBER: [id number] SPECIMEN QUALITY: Adequate SOURCE: URINE CLEAN CATCH STATUS: FINAL Anneliese James MD LAB MICROBIOLOGY - GENERAL O RDERABLES Final Result [facility] [address] [facility] [address]rd [address], [place] [address], [place] [phone] [employer] [address] [facility] 3rd [address], [place] [address], [place] [phone] * (ABNORMAL) Iron Saturation (04/19/2025 1:24 PM EST) Iron Saturation 14(L) 20 - 50 % 2:35 PM EST [facility] Iron 60 30 - 160 ug/dL 04/19/2025 2:35 PM EST [facility] Transferrin 343 200 - 360 mg/dL 04/19/2025 2:35 PM EST [facility] Total Iron Binding Capacity 429 255 - 450 ug/dL 04/19/2025 2:35 PM EST [facility] Blood Structure of peripheral vein / Unknown Venipuncture / Unknown 04/19/2025 1:24 PM EST 04/19/2025 1:43 PM EST Shavon Roberson LIME HIDE INSPECTOR LAB BLOOD ORDERABLES F inal Result [facility] [address] [place] [address], * (ABNORMAL) CBC Auto Differential (04/19/2025 1:24 PM EST) Only the most recent of2 resultswithin the time period is included. WBC 7.4 3.8 - 10.8 10*3/uL 04/19/2025 1:45 PM EST [facility] RBC 4.53 3.80 - [...] - 7.80 10*3/uL 04/19/2025 1:45 PM EST [facility] Immature Grans # <0.03 <=0.03 10*3/uL 04/19/2025 1:45 PM EST [facility] Lymphocyte # 1.90 0.85 - 3.90 10*3/uL 04/19/2025 1:45 PM EST [facility] Monocyte # 0.40 0.20 - 0.95 10*3/uL 04/19/2025 1:45 PM EST [facility] Eosinophil # 0.10 0.02 - 0.50 10*3/uL 04/19/2025 1:45 PM EST [facility] Basophil # 0.10 0.00 - 0.20 10*3/uL 04/19/2025 1:45 PM EST [facility] nRBC % 0.0 /100 WBCs 04/19/2025 1:45 PM EST [facility] nRBC # <0.01 <0.01 10*3/uL 04/19/2025 1:45 PM EST [facility] Total Neutrophil #, Preliminary 4.91 1.50 - 7.80 10*3/uL 04/19/2025 1:45 PM EST [facility] Blood Structure of peripheral vein / Unknown Venipuncture / Unknown 04/19/2025 1:24 PM EST 04/19/2025 1:31 PM EST Shaovn Miller Dipkimberly LIME HIDE INSPECTOR LAB BLOOD ORDERABLES F inal Result [facility] [address] [place] [address], * Folate (04/19/2025 1:24 PM EST) Folate 17.2 4.8 - 24.2 ng/mL 04/19/2025 2:35 PM EST [facility] Blood Structure of peripheral vein / Unknown Venipuncture / Unknown 04/19/2025 1:24 PM EST 04/19/2025 1:43 PM EST Sh[facility]onSoric[facility]edle Dipinto LIME HIDE INSPECTOR LAB BLOOD ORDERABLES F inal Result Performing Organization Address City/[facility]/ZIP Co de Phone Number [facility] [address] [place] [address], [place] * Ferritin (04/19/2025 1:24 PM EST) Ferritin 19.6 11.0 - 306.0 ng/mL 04/19/2025 2:35 PM EST [facility] Blood Structure of peripheral vein / Unknown Venipuncture / Unknown 04/19/2025 1:24 PM EST 04/19/2025 1:43 PM EST [employer] Dipinto LIME HIDE INSPECTOR LAB BLOOD ORDERABLES F inal Result Performing Organization Address [facility] Co de Phone Number [facility] [address] [place] [address], [place] * Vitamin B12 (04/19/2025 1:24 PM EST) Vitamin B12 324 232 - 1,245 pg/mL 04/19/2025 2:35 PM EST [facility] Blood Structure of peripheral vein / Unknown Venipuncture / Unknown 04/19/2025 1:24 PM EST 04/19/2025 1:43 PM EST Shavon Angela Dipinto LIME HIDE INSPECTOR LAB BLOOD ORDERABLES F inal Result Performing Organization Address City/[facility]/ZIP Co de Phone Number [facility] [address] [place] [address], [place] * CT Chest WO Contrast (03/31/2025 11:17 PM EDT) Anatomical Region Laterality Modality Body Computed Tomogra phy 04/01/2025 12:1 3 AM EDT Impressions 04/01/2025 12:58 AM EDT 1. Focal soft tissue thickening deep to [...] the ordering or responsible provider via the [employer] system on 04/01/2025 12:58 AM. Receipt of this communication by the responsible provider will be documented in [employer] upon receiving acknowledgement if applicable, Message ID [id number]. If this radiology report contains a blank impression section, it is an incomplete radiology report. Please contact the interpreting radiologist or applicable radiology division as soon as possible to obtain the completed interpretation. Workstation ID: [id number] Narrative 04/01/2025 12:58 AM EDT PROCEDURE: CT CHEST WO CONTRAST INDICATION: 40 years Female who presents with/for Further characterization of mass on chest on XR TECHNIQUE: As above. This CT scan was performed with one or more of the following dose optimization techniques: iterative reconstruction, automatic exposure control, and/or manual adjustment of mAs and kVp [...] fissure. Upper Abdomen: Bilateral Jules plaques.. Musculoskeletal: No acute osseous findings. Superficial left breast lesion located at 3 o'clock measuring 1.6 cm x 1.6 cm x 0.9 cm with small eccentric calcification. This lesion measures slightly more attenuating than simple fluid. Central Airways: Clear without evidence of endobronchial lesion. Lungs: No focal consolidation. Resulting Agency Comment [id number] us Rob Ramírez MD IMG CT PROCEDURES Edited Resu lt - Final * D-Dimer, Quantitative (for DVT/PE) (03/31/2025 8:58 PM EDT) D-Dimer, Quantitative <0.19 <0.50 mg/L FEU 03/31/2025 9:55 PM EDT [facility] Comment: The DVT/PE D-Dimer test is intended for use in conjunction with pre-test probability scoring based on clinical presentation. Its major role is in the exclusion of thromboembolism such as DVT or PE. DVT or PE can be ruled out only if the pre- test probability is low (or intermediate in some studies). This test should not be used for patients on anticoagulant therapy (oral anticoagulants, heparin) or co-morbid conditions, such as DIC, sepsis and shock. For patients with LOW pre-test probability, results <0.5 mg/L FEU exclude DVT or PE with a negative predictive value of >98%. DVT/PE cannot be ruled out for any patients with HIGH pre-test probability, or if the test shows >0.5 mg/L FEU. Blood Structure of peripheral vein / Unknown Venipuncture / Unknown 03/31/2025 8:58 PM EDT 03/31/2025 9:02 PM EDT us Rob Ramírez MD LAB BLOOD ORDERABLES Final Re sult [facility] [address] [place] [address], [place] * Marsh Top (03/31/2025 7:59 PM EDT) Extra Tube Hold for add-ons. 04/01/2025 1:06 AM EDT [facility] Comment:Auto resulted. Blood Structure of peripheral vein / Unknown 03/31/2025 7:59 PM EDT 03/31/2025 7:59 PM EDT us Protocol [facility] Treatment MD LAB BLOOD ORDERABLES F inal Result Performing Organization Address [facility] Co de Phone Number [facility] [address] [place] [address], [place] * Lavender Top (03/31/2025 7:59 PM EDT) Extra Tube Hold for add-ons. 04/01/2025 1:06 AM EDT [facility] Comment:Auto resulted. Blood Structure of peripheral vein / Unknown 03/31/2025 7:59 PM EDT 03/31/2025 7:59 PM EDT us Protocol [facility] Treatment MD LAB BLOOD ORDERABLES F inal Result Performing Organization Address [facility] de Phone Number [facility] [address] [place] [address], [place] * X-Ray Chest 2 Views (03/31/2025 7:56 PM EDT) Anatomical Region Laterality Modality Body Computed Radiogr aphy 03/31/2025 8:41 PM EDT Impressions 03/31/2025 8:46 PM EDT 1. No acute cardiopulmonary findings. 2. Well-circumscribed opacity anterior to the cardiac apex on the lateral projection. Recommend further evaluation with CT chest. If this radiology report contains a blank impression section, it is an incomplete radiology report. Please contact the interpreting radiologist or applicable radiology division as soon as possible to obtain the completed interpretation. Workstation ID: [id number] Narrative 03/31/2025 8:46 PM EDT INDICATION: 40 years Female who presents with/for [...] No displaced fractures. Abdomen: No acute findings. Resulting Agency Comment [id number] Procedure Note Mauricio Puga MD - 03/31/2025 INDICATION: 40 years Female who presents with/for dyspnea TECHNIQUE: Two views of the chest COMPARISON: None FINDINGS: Lines/Tubes/Support: Metallic portions of patient's brassiere. Telemetryleads. Mediastinum: Well-circumscribed opacity with oblique margins anterior tothe cardiac apex on the lateral projection. This lesion measures 9 mm x 33mm. Lungs/Pleura: Symmetrically inflated without focal consolidation,significant pleural effusion, or sizable pneumothorax. Musculoskeletal: No displaced fractures. Abdomen: No acute findings. IMPRESSION: 1. No acute cardiopulmonary findings. 2. Well-circumscribed opacity anterior to the cardiac apex on the lateralprojection. Recommend further evaluation with CT chest. If this radiology report contains a blank impression section, it is anincomplete radiology report. Please contact the interpreting radiologistor applicable radiology division as soon as possible to obtain thecompleted interpretation. Workstation ID: [id number] us Rob Ramírez MD IMG XR PROCEDURES Final Resul t * TSH Reflex Free T4 (03/31/2025 7:39 PM EDT) TSH 1.040 0.280 - 3.890 uIU/mL 03/31/2025 8:29 PM EDT [facility] Comment: Females: 1st trimester 0.150-4.000 IU/mL 2nd trimester 0.310-4.170 IU/mL 3rd trimester 0.380-4.150 IU/mL Blood Structure of peripheral vein / Unknown Venipuncture / Unknown 03/31/2025 7:39 PM EDT 03/31/2025 7:50 PM EDT Rob Ramírez MD LAB BLOOD ORDERABLES Final Re sult Performing Organization Address City/[facility]/ZIP Co de Phone Number [facility] [address] [place] [address], [place] * hCG, Qualitative, Serum (03/31/2025 7:39 PM EDT) HCG Qualitative, Serum Negative Negative 03/31/2025 8:41 PM EDT [facility] Comment: hCG greater than or equal to 5.0 mlU/mL is considered positive. hCG may be negative in early . Suggest repeat testing in 2-4 days if clinically indicated. Human anti-mouse antibodies (HAMA) and other heterophilic antibodies if present can interfere with the assay. The result of this test should be interpreted with the patient's clinical presentation. Blood Structure of peripheral vein / Unknown Venipuncture / Unknown 03/31/2025 7:39 PM EDT 03/31/2025 7:50 PM EDT Rob Ramírez MD LAB BLOOD ORDERABLES Final Re sult Performing Organization Address [facility]/ZIP Co de Phone Number [facility] [address] [place] [address], [place] * Magnesium (03/31/2025 7:39 PM EDT) MG 1.9 1.6 - 2.4 mg/dL 03/31/2025 8:33 PM EDT [facility] Blood Structure of peripheral vein / Unknown Venipuncture / Unknown 03/31/2025 7:39 PM EDT 03/31/2025 7:50 PM EDT Rob Ramírez MD LAB BLOOD ORDERABLES Final Re sult Performing Organization Address City/[facility]/ZIP Co de Phone Number [facility] [address] [place] [address], [place] * Lipase (03/31/2025 7:39 PM EDT) Pathologist [facility] Lipase 22 13 - 60 U/L 03/31/2025 8:29 PM EDT [facility] Blood Structure of peripheral vein / Unknown Venipuncture / Unknown 03/31/2025 7:39 PM EDT 03/31/2025 7:50 PM EDT Rob Ramírez MD LAB BLOOD ORDERABLES Final Re sult [facility] [address] [place] [address], [place] * Hepatic Function Panel (03/31/2025 7:39 PM EDT) Pathologist [facility] Total Protein 7.4 6.0 - 8.0 g/dL 03/31/2025 8:41 PM EDT [facility] Albumin 4.5 3.5 - 5.2 g/dL 03/31/2025 8:41 PM EDT [facility] Globulin, Total 2.9 2.1 - 4.2 g/dL 03/31/2025 8:41 PM EDT [facility] Bilirubin, Total 0.3 0.2 - 1.2 mg/dL 03/31/2025 8:41 PM EDT [facility] Bilirubin, Direct <0.1 <=0.4 mg/dL 03/31/2025 8:41 PM EDT [facility] Alkaline Phosphatase 47 35 - 129 U/L 03/31/2025 8:41 PM EDT [facility] AST 16 10 - 40 U/L 03/31/2025 8:41 PM EDT [facility] ALT 12 10 - 40 U/L 03/31/2025 8:41 PM EDT [facility] Bilirubin, Indirect 03/31/2025 8:41 PM EDT [facility] Comment:Unable to calculate A/G Ratio 1.6 1.5 - 3.0 03/31/2025 8:41 PM EDT [facility] Blood Structure of peripheral vein / Unknown Venipuncture / Unknown 03/31/2025 7:39 PM EDT 03/31/2025 7:50 PM EDT us Rob Ramírez MD LAB BLOOD ORDERABLES Final Re sult [facility] [address] [place] [address], * (ABNORMAL) BMP - Basic Metabolic Panel (03/31/2025 7:39 PM EDT) NA 138 135 - 145 mmol/L 03/31/2025 8:33 PM EDT [facility] K 3.7 3.5 - 5.3 mmol/L 03/31/2025 8:33 PM EDT [facility] Cl 104 97 - 110 mmol/L 03/31/2025 8:33 PM EDT [facility] CO2 22 22 - 32 mmol/L 03/31/2025 8:33 PM EDT [facility] BUN 6(L) 7 - 23 mg/dL 03/31/2025 8:33 PM EDT [facility] Creatinine 0.62 0.50 - 1.20 mg/dL 03/31/2025 8:33 PM EDT [facility] Glucose 90 65 - 99 mg/dL 03/31/2025 8:33 PM EDT [facility] Calcium 9.3 8.6 - 10.5 mg/dL 03/31/2025 8:33 PM EDT [facility] Anion Gap 12 5 - 15 03/31/2025 8:33 PM EDT [facility] eGFR >90 >=60 mL/min/1. 73m2 03/31/2025 8:33 PM EDT [facility] Comment:The estimated glomer ular [...] of Race in Diagnosing Kidney Disease . Blood Structure of peripheral vein / Unknown Venipuncture / Unknown 03/31/2025 7:39 PM EDT 03/31/2025 7:50 PM EDT us Rob Ramírez MD LAB BLOOD ORDERABLES Final Re sult Performing Organization Address City/[facility]/ZIP Co de Phone Number [facility] [address] [place] [address], [place] * Type and Screen (03/31/2025 7:38 PM EDT) ABO Blood Type O 03/31/2025 9:57 PM EDT [facility] RH Type Positive 03/31/2025 9:57 PM EDT [facility] Expiration Date/Time 2025-04-03 23:59 03/31/2025 9:57 PM EDT [facility] Antibody Screen Negative 03/31/2025 9:57 PM EDT [facility] Blood Structure of peripheral vein / Unknown Venipuncture / Unknown 03/31/2025 7:38 PM EDT 03/31/2025 8:06 PM EDT us Rob Ramírez MD LAB BLOOD BANK TEST ORDERABLE S Final Result Performing Organization Address [facility]/ZIP Co de Phone Number [facility] INFCE [address] [place] [address], * ECG 12 lead (03/31/2025 5:10 PM EDT) Only the most recent of2 resultswithin the time period is included. Ventricular Rate EKG 95 BPM MUSE EKG Atrial Rate 95 BPM MUSE EKG ND Interval 126 ms MUSE EKG QRS Interval 76 ms MUSE EKG QT Interval 324 ms MUSE EKG QTC Interval 407 ms MUSE EKG P Trappe 61 degrees MUSE EKG R Trappe 43 degrees MUSE EKG T Wave Trappe 12 degrees MUSE EKG 03/31/2025 5:10 PM EDT 04/01/2025 1:38 PM EDT Impressions MUSE EKG - 04/01/2025 1:38 PM EDT NORMAL SINUS RHYTHM NONSPECIFIC ST AND T WAVE ABNORMALITY ABNORMAL ECG WHEN COMPARED WITH ECG OF 31-Mar-2025 16:09, (UNCONFIRMED) NO SIGNIFICANT CHANGE WAS FOUND Confirmed by Arun La ([id number]) on 04/01/2025 1:38:45 PM Narrative Procedure Note O'Arun Townsend MD - 04/01/2025 IMPRESSION: NORMAL SINUS RHYTHM NONSPECIFIC ST AND T WAVE ABNORMALITY ABNORMAL ECG WHEN COMPARED WITH ECG OF 31-Mar-2025 16:09, (UNCONFIRMED) NO SIGNIFICANT CHANGE WAS FOUND Confirmed by Arun La ([id number]) on 04/01/2025 1:38:45 PM us Rob Ramírez MD ECG ORDERABLES Final Result MUSE EKG * HEART & VASCULAR - SCANNED (03/31/2025) Anatomical Region Laterality Modality Other us Onbase Scan Emeka SCANNED PROCEDURES Final Resu lt * US OB Sonohysterography (03/17/2025 11:08 AM EDT) Anatomical Region Laterality Modality Body N/A Ultrasound 03/17/2025 4:41 PM EDT Impressions 03/18/2025 4:21 PM EDT Transvaginal ultrasound showed a retroverted uterus with [...] endometrium posteriorlyapproximately 1.2 cm into the cavity Narrative 03/18/2025 4:21 PM EDT Female Pelvis (Signed Final 03/18/2025 04:21 pm) PATIENT INFO: ID #: [id number] : [birth year] (40 yrs)(F) Name: AMBIKA COLLINS Visit Date: 03/17/2025 04:41 pm DAVIS PERFORMED BY: Attending: Nancy Barrientos MD Performed By: Larissa Go RDMS Referred By: MILLY NICOLE Location: [facility] Reproductive Endocrinology SERVICE(S) PROVIDED: Hysterosonogram 63154 Cath/Injection for Hysterosonogram 25239 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 Nancy Barrientos Electronically Signed Final Report 03/18/2025 04:21 pm [...] endometrium posteriorlyapproximately 1.2 cm into the cavity us Milly ZVAALA IMG OB US PROCEDURES Final Resu lt * CBC (03/17/2025 10:10 AM EDT) WBC 9.2 3.8 - 10.8 10*3/uL 03/17/2025 10:30 AM EDT [facility] RBC 4.34 3.80 - 5.10 10*6/uL 03/17/2025 10:30 AM EDT [facility] Hemoglobin 12.1 11.7 - 15.5 g/dL 03/17/2025 10:30 AM EDT [facility] Hematocrit 37.4 35.0 - 45.0 % 03/17/2025 10:30 AM EDT [facility] MCV 86.2 80.0 - 100.0 fL 03/17/2025 10:30 AM EDT [facility] MCH 27.9 27.0 - 33.0 pg 03/17/2025 10:30 AM EDT [facility] MCHC 32.4 32.0 - 36.0 g/dL 03/17/2025 10:30 AM EDT [facility] RDW 14.5 11.0 - 15.0 % 03/17/2025 10:30 AM EDT [facility] Platelets 306 140 - 400 10*3/uL 03/17/2025 10:30 AM EDT [facility] MPV 11.1 7.5 - 12.5 fL 03/17/2025 10:30 AM EDT [facility] Blood Structure of peripheral vein / Unknown Venipuncture / Unknown 03/17/2025 10:10 AM EDT 03/17/2025 10:22 AM EDT us Milly ZAVALA LAB BLOOD ORDERABLES Final Resu lt [facility] [address] [place] [address], [place] * LAB - SCANNED (02/24/2025) us Onbase Scan [facility] LAB HISTORICAL RESULTS Final Result from Last 3 Months Additional Health Concerns Active Problems Noted Date Diagnosed Date Autogenerated Problem 04/21/[address] [facility] Care Teams Project Management Instructor Relationship Specialty Start Date End Date Petra Wiley [address] [place] [address] PCP - General Family Medicine 03/19/24
--- OUTSIDE RECORDS SUMMARY | 2025-04-21 18:46 | XMS_ITS | Encounter Summary ---
Author Organization [facility] Address [address] [place] [address] Care Team Providers Care Limo Driver Name Role Phone Petra Wiley Primary Care Provider [phone] Encounter Details Date Type Department Care Team (Late st Contact Info) Description 04/20/2025 Results Follow-Up [facility] Obstetrics and Gynecology [address] [place] [address] Animal Anatomist: Anneliese Blanco MD [address] [place] [address] Social History Tobacco Use Types Packs/Day Years [...] Info) Description 04/28/2025 1:45 PM EST Infusion [facility] Building Infusion Clinic [address] [place] [address] 04/30/2025 7:15 AM EST Hospital Encounter [facility] Operating Room [address] [place] [address] Anneliese James MD [address] [place] [address] 04/30/2025 7:15 AM EST - 04/30/2025 8:30 AM EST Surgery [facility] Operating Room [address] [place] [address] Anneliese James MD [address] [place] [address] HYSTEROSCOPY MYOMECTOMY WITH MYOSURE, WITH ENDOMETRIAL SAMPLING AND/OR POLYPECTOMY, POSSIBLE DILATION AND CURETTAGE [14336 (CPT )] 06/14/2025 3:00 PM EST Office Visit [facility] Dermatology Clinic 4th Floor [address] [facility], [place] [phone] Animal Anatomist: Zachary Zavaleta MD [address] [place] [address] 07/12/2025 2:00 PM EST Lab [facility] ACC Draw Site Fifth Floor [address] [place] [address] 07/12/2025 3:00 PM EST Follow-Up [facility] Building BMT Clinic [address] [place] [address] Shavon Roberson NP [address] [place] [address] Scheduled Procedures Name Priority Associated Diagnoses Date/Ti me HYSTEROSCOPY MYOMECTOMY WITH MYOSURE, WITH ENDOMETRIAL SAMPLING AND/OR POLYPECTOMY, POSSIBLE DILATION AND CURETTAGE Abnormal uterine bleeding 04/30/2025 7:15 AM EST documented as of this encounter Visit Diagnoses Not on filedocumented in this encounter Care Teams Limo Driver Relationship Specialty Start Date End Date Petra Wiley [address] [place] [address] PCP - General Family Medicine 03/19/24 documented as of this encounter
--- OUTSIDE RECORDS SUMMARY | 2025-04-21 18:46 | XMS_ITS | Encounter Summary ---
Author Organization [facility] Address [address] [place] [address] Care Team Providers Care Computer System Specialist Name Role Phone Petra Wiley Primary Care Provider [phone] Encounter Details Date Type Department Care Team (Late st Contact Info) Description 04/20/2025 Prep for Case [facility] Obstetrics and Gynecology [address] [place] [address] Social Work Assistant: Anneliese Blanco MD [address] [place] [phone] Abnormal uterine bleeding (Primary Dx) Social History Tobacco Use Types [...] Info) Description 04/28/2025 1:45 PM EST Infusion [facility] Building Infusion Clinic [address] [place] [address] 04/30/2025 7:15 AM EST Hospital Encounter [facility] Operating Room [address] [place] [address] Anneliese James MD [address] [place] [phone] 04/30/2025 7:15 AM EST - 04/30/2025 8:30 AM EST Surgery [facility] Operating Room [address] [place] [address] Annleiese James MD [address] [place] [address] HYSTEROSCOPY MYOMECTOMY WITH MYOSURE, WITH ENDOMETRIAL SAMPLING AND/OR POLYPECTOMY, POSSIBLE DILATION AND CURETTAGE [84474 (CPT )] 06/14/2025 3:00 PM EST Office Visit [facility] Dermatology Clinic 4th Floor [address] [facility], [place] [phone] Social Work Assistant: Zachary Zavaleta MD [address] [place] [address] 07/12/2025 2:00 PM EST Lab [facility] ACC Draw Site Fifth Floor [address] [place] [address] 07/12/2025 3:00 PM EST Follow-Up [facility] BMT Clinic [address] [place] [address] Shavon Roberson NP [address] [place] [address] Scheduled Orders Name Type Priority Associated Diagnoses Orde r Schedule HCG, Qualitative, , Urine Lab Routine Abnormal uterine bleeding Expected: 04/20/2025, Expires: 04/20/2026 Scheduled Procedures Name Priority Associated Diagnoses Date/Ti id HYSTEROSCOPY MYOMECTOMY WITH MYOSURE, WITH ENDOMETRIAL SAMPLING AND/OR POLYPECTOMY, POSSIBLE DILATION AND CURETTAGE Abnormal uterine bleeding 04/30/2025 7:15 AM EST documented as of this encounter Visit Diagnoses Diagnosis Abnormal uterine bleeding- Primary Unspecified disorder of menstruation and other abnormal bleeding from female genital tract Abnormal uterine bleeding Unspecified disorder of menstruation and other abnormal bleeding from female genital tract documented in this encounter Care Teams Computer System Specialist Relationship Specialty Start Date End Date Petra Wiley [address] [place] [phone] PCP - General Family Medicine 03/19/24 documented as of this encounter
--- OUTSIDE RECORDS SUMMARY | 2025-04-21 18:46 | XMS_ITS | Encounter Summary ---
Author Organization [employer] Address [address] [facility] 7t [place] [address] Care Team Providers Care Wood Ski Maker Name Role Phone Jennie Murray MD Primary Care Provider [phone] Petra Wiley Primary Care Provider Willard Waters Unavailable Sumaya Kessler Unavailable Juan Sandra MD Unavailable [phone] Brigid Guy NP Unavailable Vicente Mooney MD Unavailable Beth Rai MD Unavailable Michell Espinoza Unavailable Christopher Henry RN Unavailable [phone] Radha Chatman Unavailable Reason for Visit * Reason Onset Date Comments medication 09/19/2022 Encounter Details Date Type Department Care Team (Late st Contact Info) Description 09/19/2022 Telephone [facility] [address] [place], [place] [phone] Venkat Barreto DDS [address] [place], [place] [phone] medication Social History Tobacco Use Types Packs/Day [...] EDT Script was sent for Augementin to [facility] in [place]. Patient went in to pickle processor script and they stated there was nothing there. Contacted [facility] and they stated that nationwide there was a shut down on their system for about 3 hours so it doesn't look like they received it. Can it be resent for patient? documented in this encounter Plan of Treatment Upcoming Encounters Date Type Department Care Team (Late st Contact Info) Description 05/10/2025 2:00 PM EST Clinical Support [facility] DIABETES/NUTRITION [address] [place], [place] [phone] Tamanna Mcintyre, ANGELINA [address] [place] [address] documented as of this encounter Visit Diagnoses Not on filedocumented in this encounter Additional Health Concerns Assessment Noted Time PHQ-9 Depression Total Score: 0 07/04/19 23 3:01 PM EST documented as of this encounter Care Teams Wood Ski Maker Relationship Specialty Start Date End Date Jennie Murray MD [address] [place], [place] [phone] PCP - General Family Medicine 06/23/13 03/16/24 Petra Wiley FNP [address] [place], [place] [phone] PCP - General Family Medicine 03/17/24 Willard Waters [address] Rheumatology 05/17/24 Sumaya Kessler [address]rd [place] [address] Gastroenterology 05/17/24 Juan Sandra MD [address] [place] [address] Hematology and Oncology 05/17/24 Brigid Guy NP [address] [place] [address] Urology 05/17/24 Vicente Mooney MD [address] [place] [address] [address] [place] [address] Obstetrics and Gynecology 05/17/24 Beth Rai MD [address] [place] [address] [place] [address] Neurology 05/17/24 Michell Espinoza [address] [facility] 3rd [place] [address] Cardiology 05/17/24 Christopher Henry, RN [address] [place] [address] Registered Nurse Family Medicine 03/12/25 Radha Chatman 03/12/25 Shelia Zehng Canal SuperintendentFoundry Worker 09/26/23 documented as of this encounter
--- OUTSIDE RECORDS SUMMARY | 2025-04-21 18:46 | XMS_ITS | Encounter Summary ---
Author Organization [employer] Address [address] [facility] 7t [place] [address] Care Team Providers Care Computer Engineering Technician Name Role Phone Petra Wiley STEEL MELTER Primary Care Provider Willard Waters Unavailable [phone] KesslerSeptember Unavailable Juan Sandra MD Unavailable [phone] Brigid Guy NP Unavailable Vicente Mooney MD Unavailable Beth Rai MD Unavailable Michell Espinoza Unavailable Christopher Henry RN Unavailable [phone] Radha Chatman Unavailable Reason for Visit * Reason Comments Med Refill Encounter Details Date Type Department Care Team (Late st Contact Info) Description 01/07/2025 Refill [facility] [address] [place], [place] [phone] Petra Wiley FNP [address] [place], [place] [phone] Fibromyalgia Social History Tobacco Use Types Packs/Day [...] Description 05/10/2025 2:00 PM EST Clinical Support [facility] DIABETES/NUTRITION [address] [place] [address] [place] [address] documented as of this encounter Visit Diagnoses Diagnosis Fibromyalgia Unspecified myalgia and myositis documented in this encounter Additional Health Concerns Assessment Noted Time PHQ-9 Depression Total Score: 8 11/26/19 25 5:52 PM EDT documented as of this encounter Care Teams Computer Engineering Technician Relationship Specialty Start Date End Date Petra Wiley FNP [address] [place] [address] PCP - General Family Medicine 03/17/24 Willard Waters [address] [place] [address] Rheumatology 05/17/[address] [facility] 3rd [place] [address] Gastroenterology 05/17/24 Juan Sandra MD [address] [place] [address] Hematology and Oncology 05/17/24 Brigid Guy NP [address] [place] [address] Urology 05/17/24 Vicente Mooney MD [address] [place] [address] [address] [place] [address] Obstetrics and Gynecology 05/17/24 Beth Rai MD [address] [place] [address] [place] [address] Neurology 05/17/[address] [facility] [address] [place] [address] Cardiology 05/17/24 Christopher Henry, RITA [address] [place] [address] Registered Nurse Family Medicine 03/12/25 Radha Chatman 03/12/25 Shelia Zheng Tower Equipment InstallerPhysical Director 09/26/23 documented as of this encounter
--- OUTSIDE RECORDS SUMMARY | 2025-04-21 18:46 | XMS_ITS | Clinical Summary ---
Author Organization [employer] Address [address] [facility] [address] [place] [address] Care Team Providers Care Pressing Machine Tender Name Role Phone Petra Wiley DIALYSIS REGISTERED NURSE Primary Care Provider Willard Waters Unavailable [phone] September Unavailable Juan Sandra MD Unavailable [phone] Brigid Guy NP Unavailable Vicente Mooney MD Unavailable Beth Rai MD Unavailable Michell Espinoza Unavailable Christopher Henry RN Unavailable [phone] Radha Chatman Unavailable Allergies Active Allergy Reactions Criticality Noted [...] exceed 6 tablets per 24hrs 022 Active Creon 44705-243653 units capsule delayed-release particles capsule TOME ADRY C PSULA MINDA VECES AL D A WITH MEALS/SNACKS 023 Active Simethicone Ultra Strength 180 MG capsule TAKE 1 CAPSULE ORALLY 2 TIMES A DAY FOR 30 DAYS AFTER MEALS 023 Active Sodium Fluoride (PreviDent 5000 Booster Plus) [...] DAY FOR 30 DAYS FOR HEART PALPITATION 024 Active butalbital-aceta minophen-caffein e 50-325-40 MG tablet TOME ADRY TABLETA CADA OCHO HORAS CUANDO SEA NECESARIO FOR 30 DAYS 024 Active Azelastine HCl 137 MCG/SPRAY solutionIndicati ons:Seasonal [...] PER DAY. 90 tablet 3 025 Active chlorhexidine (Peridex) 0.12 % solution Use 15ml to rinse your mouth twice daily. Spit after rinsing; do not swallow. 473 mL Active Additional Information Patient not taking.Reported on 12/25/2024 albuterol 108 (90 Base) MCG/ACT inhalerIndicatio ns:Mild persistent asthma without complication Inhale 2 puffs Every 4-6 hours as needed for wheezing or shortness of breath. 18 g 11 Active fluticasone furoate (Arnuity Ellipta) 100 MCG/ACT [...] at bedtime for dizziness. 30 tablet 1 2025 Active tiZANidine (Zanaflex) 2 MG tabletIndication s:Fibromyalgia Take 1-2 tablets (2-4 mg) by mouth every 12 (twelve) hours if needed for muscle spasms. 30 tablet 2 2025 Active docusate sodium (Colace) 100 MG capsule TOME 1 C PSULA POR V A ORAL DOS VECES AL D A Active dicyclomine (Bentyl) 10 MG capsule Take 1 capsule (10 mg) by mouth 3 times daily. 90 capsule 3 Active Bisacodyl EC 5 MG EC tablet Take 2 tablets (10 mg) by mouth if needed each day for constipation. Do not crush, chew, or split. 30 tablet Active sucralfate (Carafate) 1 g tabletIndication s:Gastroesophage al reflux disease without esophagitis Take 1 tablet (1 g) by mouth before breakfast, before lunch, before evening meal, and at bedtime. 120 tablet 2 Active [address] capsuleIndicatio ns:Gastroparesis ,Gastroesophagea l reflux disease without esophagitis Take 1 capsule (60 mg) by mouth Once per day. Do not crush or chew. 90 capsule Active medroxyPROGESTER one (Provera) 10 MG tabletIndication s:Iron deficiency anemia, unspecified iron deficiency anemia type Take 1 tablet (10 mg) by mouth 3 times daily for 5 days. 15 tablet 025 Active hydrOXYzine HCl (Atarax) 25 MG tabletIndication s:Anxiety,Advers e reaction to hormonal drug Take 1 tablet (25 mg) by mouth 4 times daily. 120 tablet 025 2024 Active ondansetron (Zofran) 4 MG tabletIndication s:Nausea Take 1 tablet (4 mg) by mouth every 8 (eight) hours if needed for nausea or vomiting for up to 10 doses. 10 tablet 025 Active famotidine (Pepcid) 20 MG tabletIndication s:Adverse reaction to hormonal drug Take 1 tablet (20 mg) by mouth 2 times daily for 14 days. 28 tablet Active nabumetone (Relafen) 750 MG tabletIndication s:Fibromyalgia TAKE 1 TABLET (750 MG) BY MOUTH IF NEEDED IN THE MORNING AND AT BEDTIME (PAIN). 60 tablet 2 Active famotidine (Pepcid) 40 MG tablet TOME ADRY TABLETA POR V A ORAL TODOS LOS D AL ACOSTARSE 022 2024 Discontinued Banophen 25 MG capsule PLEASE SEE ATTACHED FOR DETAILED DIRECTIONS 024 2024 Discontinued(M ed list cleanup (will not trigger notification to Pharmacy)) fexofenadine (Gretchen) 180 MG tabletIndication s:Seasonal allergies Take 1 tablet (180 mg) by mouth Once per day. 90 tablet 3 024 2024 Discontinued(M ed list cleanup (will not trigger notification to Pharmacy)) nabumetone (Relafen) 750 MG tabletIndication s:Fibromyalgia Take 1 tablet (750 mg) by mouth if needed in the morning and at bedtime (pain). 60 tablet 2 025 2024 Discontinued Active Problems Problem Noted Date [...] 25 Palpitations 05/17/2024 Overview (11/04/2024): Followed by [facility] Cards Continues on Propranolol 20mg 1-2x/day (through Cards) Assessment & Plan (11/04/2024 2:38 PM EDT): Consult Jul 2024 - cont current therapy Class 1 obesity with body ma ss index (BMI) of 32.0 to 32.9 in adult 05/17/2024 Assessment & Plan (07/29/2024 4:08 PM EST): - Cont following with esthetic dermatologist and healthy lifestyle interventions Assessment & Plan [...] of medullary thyroid cancer or MEN 2. Transfer Engineer referral offered. Recommended to decrease soda and [...] bruising easily 03/17/2024 Overview (03/17/2024): Followed by [facility] Heme/Onc - Dr. Sandra Per consult Jan 2024: extensive heme w/up including factor 7, 9, von Willebrand's profile. There were all normal. Suspect platelet function defect, which is common in young women. Bipolar disorder, unspecified (CMS/HCC) 03/16/20 Generalized anxiety disorder with panic attacks 03/16/2024 [...] 04/17/2021 HCT 35.5 (L) 02/24/2025 Following with [facility] Heme/Onc (previously at [facility]) Unable to tolerate PO iron supplements September 2024: received IV venofer 200mg weekly x 4 Assessment & Plan (02/24/2025 3:43 PM EDT): Venous hemoglobin resulted at 11.6, last 12.4 approx 1 months ago. Iron studies pending. Suspected cause: menorrhagia s/p IUD removal Plan: start provera 10mg TID x 5 days. Reviewed med safety and SE. Follow up with SWITCH TENDER as scheduled on 03/04/25 ED/urgent care precautions [...] - Has consulted with Surgery team in [facility] for consideration of excision. Per their [...] - Has consulted with Surgery team in [facility] for consideration of excision. Per their consult Mar 2024, identified area has normal lobular fat, no discrete lipoma or nodules. Plan: conservative measures Abnormal uterine bleeding 12/27/2023 Overview (07/29/2024): Following with [facility] SWITCH TENDER - Dr. Mooney EMB performed 04/14/24. Path: [...] Overview (05/17/2024): Lab Results Component Value Date [id number] 19.9 (L) 03/18/2024 [id number] 19 (A) 05/08/2023 - Cont Vit D [...] (02/01/2025): Pap: NILM, HPV neg 01/13/25 at [facility] SWITCH TENDER Dental: [facility] Dental Last PE: 11/25/24 Hep B Immune: Mar 2024 Contraception: IUD (Mirena) placed 01/13/25 at [facility] SWITCH TENDER Gastroesophageal reflux disease without esophagi tis 06/03/2023 Overview (06/03/2023): Followed by [facility] YASSINE Kwong September Victoria ENDOSCOPIC TECHNICIAN Continues famotidine and Dexliant through GI Irritable bowel syndrome with constipation 06/03 Overview (03/17/2024): Followed up [facility] GI - September Victoria ENDOSCOPIC TECHNICIAN Continues Bentyl TID Continues Bisacodyl 10mg nightly Dysphagia, oropharyngeal phase 06/03/2023 Overview (06/03/2023): Followed by [facility] GI - Sumaya Kessler APRN Gastroparesis 06/03/2023 Overview (03/17/2024): Followed by [facility] GI Continues with the following medication regimen for multiple GI symptoms and conditions: Creon, famotidine, psyllium, dicyclomine, simethicone, and Dexliant Previous medications: carafate NURIA positive 06/03/2023 Overview (07/29/2024): Previous followed by [facility] Rheum - Dr. Waters May 2024: Established with [facility] Rheum - Dr. Street NURIA positive 2020: 1:160, anti dna, nicholas, ESR, CRP all wnl Disorder of sesamoid bone of foot 06/03/2023 Overview (06/03/2023): -Left lateral sesamoid stress fx identified Jul 2022 at [facility] -Plan for immobilization in short walking boot and follow up 6 weeks Assessment & Plan (06/03/2023 10:28 PM EST): Plan to request latest records from [facility] and follow up with PCP to discuss eligibility handicap placard. Fibromyalgia 08/02/2022 Overview (11/04/2024): -Previously: Lyrica 75mg nightly through [facility] Physiatry/Rheum -Lyrica rx [...] Encounters Date Type Department Care Team Description 04/18/2025 Refill [facility] MED & PEDS [address] [place] [address] Jackie Bazzi MD Fibromyalgia 04/13/2025 Patient Outreach [facility] MEDICINE [address] [place] [phone] Petra Wiley FNP Care Coordination ([facility] Radha Chatman telephone call outreach) 04/05/2025 Patient Outreach [address] [address] Petra Wiley FNP 03/26/2025 2:00 PM EDT Clinical Support [facility] DIABETES/NUTRITION [address] [place] [phone] Class 1 obesity with body mass index (BMI) of 32.0 to 32.9 in adult, unspecified obesity type, unspecified whether serious comorbidity present (Primary Dx) 03/26/2025 Travel 03/26/[address] [address] Tiana Lopez RN 03/24/2025 6:00 PM EDT Office Visit [facility] WALK-IN CENTER [address] [place] [phone] Allyn Lee NP Adverse reaction to hormonal drug (Primary Dx); Shortness of breath; Nausea; Anxiety 03/24/2025 Travel 03/22/2025 Patient Outreach [facility] MEDICINE [address] [place] [phone] Petra Wiley FNP 03/19/2025 Telephone [facility] MED & PEDS [address], [place] [phone] Petra Wiley FNP Appointment Request 03/12/2025 Patient Outreach [address] [address] Phalen, Petra, DIALYSIS REGISTERED NURSE Care Coordination ([facility] Radha Chatman chart review) 03/12/2025 Patient Outreach [address] [address] Phalen, Petra, DIALYSIS REGISTERED NURSE Care Management ([facility]- chart review) 03/12/2025 Patient Outreach [address] [address] Phalen Petra, DIALYSIS REGISTERED NURSE 03/03/2025 Orders Only [facility] MED & PEDS [address] [place] [address] Phalkiersten Petra, DIALYSIS REGISTERED NURSE 02/26/2025 Results Follow-Up [facility] MED & PEDS [address] [place] [address] Phalen, Petra, DIALYSIS REGISTERED NURSE CBC auto differential, Type and screen, Ferritin, Additional followed-up results: 2 02/24/2025 10:45 AM EDT Office Visit [address] [address] Phalen Petra, DIALYSIS REGISTERED NURSE Iron deficiency anemia, unspecified iron deficiency anemia type (Primary Dx); Sore throat; Excessive bleeding in premenopausal period 02/24/2025 Travel 02/23/[address] [address] Phalkiersten Petra, DIALYSIS REGISTERED NURSE CHART PREP 02/23/2025 Travel 02/12/2025 Orders Only GENERIC EXTERNAL DATA DEPARTMENT Provider, Generic External Data 02/10/2025 Orders Only GENERIC EXTERNAL DATA DEPARTMENT Provider, Generic External Data 02/05/2025 Orders Only [facility] External Provider, [facility] 02/03/2025 Orders Only [facility] External Provider, [facility] 02/01/2025 3:30 PM EDT Office Visit [facility] MED & PEDS [address] [place] [phone] Phalkiersten Petra, DIALYSIS REGISTERED NURSE Injury of left knee, subsequent encounter (Primary Dx) 02/01/2025 Travel 02/01/2025 Orders Only [facility] [address] [place] [phone] ProviderAddie MD 01/29/2025 Telephone [facility] CHC MED & PEDS [address] [place], [place] [phone] Petra Wiley FNP chart prep 01/26/2025 1:00 PM EDT Clinical Support [facility] DIABETES/NUTRITION [address] [place] [address] Class 1 obesity with serious comorbidity and body mass index (BMI) of 32.0 to 32.9 in adult, unspecified obesity type (Primary Dx) 01/26/2025 Travel 01/20/2025 Telephone [facility] MEDICINE [address] [place] [address] Petra Wiley FNP Appointment Confirmation 01/19/2025 Telephone [facility] [address] [place] [address] Jackie Bazzi MD 01/19/2025 Telephone [facility] MEDICINE [address] [place] [address] Petra Wiley FNP ER Follow-up from Last 3 Months Immunizations Immunization Administration [...] Sign Reading Time Taken Comments Blood Pressure 117/75 03/24/2025 6:09 PM EDT Pulse 89 03/24/2025 6:09 PM EDT Temperature 37.2 C (98.9 F) 03/24/2025 6:09 PM EDT Respiratory Rate 20 03/24/2025 6:09 PM EDT Oxygen Saturation 98% 03/24/2025 6:09 PM EDT Inhaled Oxygen Concentration - - Weight 68.6 kg (151 lb 4.8 oz) 03/30/2025 1:35 P M EDT Height 149.9 cm (4' 11 ) 03/30/2025 1:35 PM EDT Body Mass Index 30.56 03/30/2025 1:35 PM EDT Plan of Treatment Upcoming Encounters Date Type Department Care Team (Late st Contact Info) Description 05/10/2025 2:00 PM EST Clinical Support [facility] DIABETES/NUTRITION [address] [place] [address] [place] [address] Health Maintenance Due Date Last Done Comments [...] 02/24/2025 SDOH Screening 02/24/2026 02/24/2025 Tobacco Screening 03/25/2026 03/25/2025 Lipid Panel 11/26/2029 11/26/2024, 07/2023, 10/16/2023, Additional [...] Procedure Name Priority Date/Time Associated Diagnosis Comments POCT RAPID COVID ANTIGEN Routine 03/24/2025 7:18 PM EDT Shortness of breath BI US BREAST LIMITED RIGHT Routine 03/03/2025 [...] 02/12/2025 4:14 PM EDT CYTOPATH-CELL ENHANCED Routine 02/10/2025 5:16 PM EDT US PELVIS TRANSVAGINAL Routine 02/05/2025 1:43 PM EDT US RENAL COMPLETE Routine 02/03/2025 1:3 4 PM EDT HPV DNA, LOW/HIGH RISK Routine 01/13/2025 4:39 PM EDT PAP SMEAR Routine 01/13/2025 4:39 PM EDT LIPID PANEL, STANDARD Routine 11/26/2024 [...] Recently Relevant to Health Maintenance Results * POCT Rapid COVID Ag (03/24/2025 7:18 PM EDT) [facility] Rapid COVID Ag Negative QC Media Lot # [id number] Lot# Expiration Date [id number] Swab 03/24/2025 7:18 PM EDT us Allyn Zapatam MEAT CARVER POINT OF CARE TEST ENTER/EDIT O RDERABLES Final Result * BI US Breast Limited Right (03/03/2025 1:20 PM EDT) Anatomical Region Laterality Modality Breast Right Ultrasound 03/03/2025 1:20 PM EDT Narrative 03/03/2025 3:31 PM EDT [facility] [address] [place] [address] Ultrasound Report Signed Patient: Ambika Mcdermott MR#: [id number] : 1985 Acct:[id number] Age/Sex: 39 / F ADM Date: 03/03/25 Loc: HO.MAMMO Attending Dr: Petra LUCERO Ordering Physician: Petra Wiley Date of Service: 03/03/25 Procedure(s): US breast RT limited mamm only Accession Number(s): [id number] cc: Petra Wiley Reason for Exam: RT [...] 03/03/25 1528 DD/ 1320 TD/TT: 03/03/25 1340 Aluminum Container Tester: Procedure Note Donotuseinterpreter, Image - 03/03/2025 [facility] [address] [place], [place] [address] Ultrasound Report Signed Patient: Ambika McdermottMR#: [id number] : 1985Acct:[id number] Age/Sex: 39 / FADM Date: 03/03/25 Loc: HO.MAMMO Attending Dr: Petra Wiley DIALYSIS REGISTERED NURSE Ordering Physician: Petra Wiley Date of Service: 03/03/25 Procedure(s): US breast RT limited mamm only Accession Number(s): [id number] cc: Petra Wiley Reason for Exam: RT [...] 03/03/25 1528 DD/ 1320 TD/TT: 03/03/25 1340 Aluminum Container Tester: us Petra Wiley DIALYSIS REGISTERED NURSE IMG US PROCEDURES Edited Resul t - Final * (ABNORMAL) CBC auto differential (02/24/2025 2:06 PM EDT) White Blood Count 8.8 4.8 - 10.8 X10*3/uL [facility] Red Blood Count 4.27 4.20 - 5.50 X10*6/uL [facility] Hemoglobin 11.6(L) 12.0 - 16.0 g/dl [facility] Hematocrit 35.5(L) 37.0 - 47.0 % [facility] Mean Corpuscular Volume 83.1 80.0 - 98.0 fL [facility] Mean Corpuscular Hemoglobin 27.2 27.0 - 33.0 pg [facility] Mean Corpuscular HGB Conc 32.7 31.0 - 35.0 g/dl [facility] Red Cell Distribution Width 14.2 11.0 - 16.0 % [facility] Platelet Count 252 160 - 400 X10*3/uL [facility] Mean Platelet Volume 11.7 9.4 - 12.3 fL [facility] Neutrophils Percent Auto 67.8 45 - 73 % [facility] Imm Gran Pct Auto 0.3 0.0 - 0.4 % [facility] Lymphocytes Percent Auto 25.1 20 - 40 % [facility] Monocytes Percent Auto 5.0 2 - 11 % [facility] Eosinophils Percent Auto 1.3 0 - 4 % [facility] Basophils Percent Auto 0.5 0 - 2 % [facility] NRBC Pct Auto 0.0 0.0 - 0.2 /100WBC [facility] Neutrophils Absolute Auto 6.0 2.0 - 8.3 x10*3/uL [facility] Imm Gran Abs Auto 0.03 0.00 - 0.03 X10*3/uL [facility] Lymphocytes Absolute Auto 2.2 1.2 - 4.9 X10*3/uL [facility] Monocytes Absolute Auto 0.4 0.1 - 1.2 X10*3/uL [facility] Eosinophils Absolute Auto 0.1 0.0 - 0.4 X10*3/uL [facility] Basophils Absolute Auto 0.0 0.0 - 0.2 X10*3/uL [facility] NRBC Abs Auto 0.000 0.0 - 0.012 X10*3/uL [facility] Blood Venous blood specimen / Unknown 02/24/2025 2:06 PM EDT 02/24/2025 2:06 PM EDT us Petra Wiley DIALYSIS REGISTERED NURSE LAB BLOOD ORDERABLES Final Res ult [facility] [address] [place] [phone] * Iron And Total Iron Binding Capacity (02/24/2025 2:06 PM EDT) Iron 70 30 - 160 mcg/dL [facility] Total Iron Binding Capacity 277 228 - 428 mcg/dL [facility] Percent Iron Saturation 25 15 - 50 % [facility] Unsaturated Iron Binding 207 ug/dL [facility] Blood Venous blood specimen / Unknown 02/24/2025 2:06 PM EDT 02/24/2025 2:06 PM EDT us Petra Wiley DIALYSIS REGISTERED NURSE LAB BLOOD ORDERABLES Final Res ult Performing Organization Address [facility]/ZIP Co de Phone Number [facility] [address] [place] [phone] * Ferritin (02/24/2025 2:06 PM EDT) Ferritin 49 10 - 122 ng/mL [facility] Blood Venous blood specimen / Unknown 02/24/2025 2:06 PM EDT 02/24/2025 2:06 PM EDT Petra Wiley DIALYSIS REGISTERED NURSE LAB BLOOD ORDERABLES Final Res ult Performing Organization Address [facility] Co de Phone Number [facility] [address] [place] [phone] * Type and screen (02/24/2025 2:05 PM EDT) [facility] Signature Blood Type OP [facility] Antibody Screen NEGATIVE [facility] Blood Venous blood specimen / Unknown 02/24/2025 2:05 PM EDT 02/24/2025 2:55 PM EDT Petra Wiley DIALYSIS REGISTERED NURSE LAB BLOOD BANK TEST ORDERABLES Final Result Performing Organization Address [facility] Co de Phone Number [facility] [address] [place] [phone] * POCT rapid strep A manually resulted (02/24/2025 12:20 PM EDT) [facility] Rapid Strep A Screen Negative Negative, None Detected QC Media Lot # [id number] Lot# Expiration Date [id number] Swab 02/24/2025 12:2 0 PM EDT Petra Wiley DIALYSIS REGISTERED NURSE POINT OF CARE TEST ENTER/EDIT ORDERABLES Final Result * (ABNORMAL) CBC (02/12/2025 4:14 PM EDT) White Blood Count 8.7 4.8 - 10.8 X10*3/uL [facility] Red Blood Count 4.64 4.20 - 5.50 X10*6/uL [facility] Hemoglobin 12.4 12.0 - 16.0 g/dl [facility] Hematocrit 38.8 37.0 - 47.0 % [facility] Mean Corpuscular Volume 83.6 80.0 - 98.0 fL [facility] Mean Corpuscular Hemoglobin 26.7(L) 27.0 - 33.0 pg [facility] Mean Corpuscular HGB Conc 32.0 31.0 - 35.0 g/dl [facility] Red Cell Distribution Width 14.2 11.0 - 16.0 % [facility] Platelet Count 255 160 - 400 X10*3/uL [facility] Mean Platelet Volume 11.9 9.4 - 12.3 fL [facility] NRBC Pct Auto 0.0 0.0 - 0.2 /100WBC [facility] NRBC Abs Auto 0.000 0.0 - 0.012 X10*3/uL [facility] 02/12/2025 4:14 PM EDT 02/12/2025 4:14 PM EDT us Generic External Data Provider LAB BLOOD ORDERAB LES Final Result [facility] [address] [place] [phone] * Cytopath-cell enhanced (02/10/2025 5:16 PM EDT) 02/10/2025 5:16 PM EDT 02/11/2025 6:45 AM EDT Narrative [facility] - 02/11/2025 10:10 AM EDT ----- ------- Name: Ambika Mcdermott Age/Sex: 39/F [facility] 1985 [id number]#: [id number] Attend Dr: Brigid Guy [facility] Re02/10/25 Status: DEP [facility] Disch: ----- ------- SPEC : [id number] RECD: 02/11/25 STATUS: [facility] NUM: [id number] BILLY: 02/10/25-[address] [facility] [address]: Brigid Guy [facility] ENTERED: 02/11/25 SP TYPE: Cytology OTHR DR: [...] developed and their performance characteristics determined by [facility]. They have not been cleared or approved by the U.S. Food and Drug Administration (FDA). However, the FDA has determined that such clearance or approval is not necessary. This laboratory is certified under the Clinical Laboratory Improvement Amendments of 1988 (CLIA) as qualified to perform high complexity clinical laboratory testing. Copies To: Brigid Guy [facility] [address] [place] [address] [place] [address] [email or web address] Jennie Murray MD [address] [place] [address] CONTINUED ON NEXT PAGE ----- ------- Name: Ambika Mcdermott Age/Sex: 39/F : 1985 Unit#: [id number] Attend Dr: Brigid Guy [facility] Re02/10/25 Status: DEP [facility]F [facility] Disch: ----- ------- SPEC : [id number] RECD: 02/11/25 STATUS: [facility] NUM: [id number] BILLY: 02/10/25-[address] [facility] [address]: Brigid Guy [facility] ENTERED: 02/11/25 SP TYPE: Cytology OTHR DR: Jennie Murray MD ORDERED: Cyto-enhanced ----- ------- Signed (signature on file) Trent Patel MD 02/11/25 1010 ----- ------- END OF REPORT us Generic External Data Provider LAB CYTOLOGY KEN MCDONALD Final Result Performing Organization Address City/State/[facility] Co de Phone Number [facility] [address] [place] [phone] * US Pelvis Transvaginal (02/05/2025 1:43 PM EDT) Anatomical Region Laterality Modality Pelvis Ultrasound 02/05/2025 1:43 PM EDT Narrative 02/05/2025 2:29 PM EDT [address] [address] Ultrasound Report Signed Patient: Ambika Mcdermott MR#: [id number] : 1985 Acct:[id number] Age/Sex: 39 / F ADM Date: 02/05/25 Loc: .US Attending Dr: Vicente Mooney MD Ordering Physician: Vicente Mooney MD Date of Service: 02/05/25 Procedure(s): US pelvic and transvaginal Accession Number(s): [id number] cc: Petra Wiley; Vicente Mooney MD EXAMINATION: [...] 02/05/25 1426 DD/ 1343 TD/TT: 02/05/25 1355 Aluminum Container Tester: Procedure Note Donotuseinterpreter, Image - 02/05/2025 [place] [address] Ultrasound Report Signed Patient: Ambika McdermottMR#: [id number] : 1985Acct:[id number] Age/Sex: 39 / FADM Date: 02/05/25 Loc: HO.US Attending Dr: Vicente Mooney MD Ordering Physician: Vicente Mooney MD Date of Service: 02/05/25 Procedure(s): US pelvic and transvaginal Accession Number(s): [id number] cc: Petra Wiley; Vicente Mooney MD EXAMINATION: [...] 02/05/25 1426 DD/ 1343 TD/TT: 02/05/25 1355 Aluminum Container Tester: us [facility] External Provider IMG US PROCEDURES Final Result * US Renal Complete (02/03/2025 1:34 PM EDT) Anatomical Region Laterality Modality Kidney Ultrasound 02/03/2025 1:34 PM EDT Narrative 02/03/2025 3:08 PM EDT [address] [address] Ultrasound Report Signed Patient: Ambika Mcdermott MR#: [id number] : 1985 Acct:[id number] Age/Sex: 39 / F ADM Date: 02/03/25 Loc: HO.US Attending Dr: Brigid VALENCIAP- Ordering Physician: Brigid Guy Date of Service: 02/03/25 Procedure(s): US renal BI Accession Number(s): [id number] cc: Brigid Guy-; Petra WileyP EXAMINATION: US RETROPERITONEAL LIMITED (RENAL ONLY) CLINICAL [...] 02/03/25 1505 DD/ 1334 TD/TT: 02/03/25 1344 Aluminum Container Tester: Procedure Note Donotuseinterpreter, Image - 02/03/2025 [place] [address] Ultrasound Report Signed Patient: Ambika McdermottMR#: [id number] : 1985Acct:[id number] Age/Sex: 39 / FADM Date: 02/03/25 Loc: HO.US Attending Dr: Brigid LUCERO- Ordering Physician: Brigid Guy Date of Service: 02/03/25 Procedure(s): US renal BI Accession Number(s): [id number] cc: Brigid Guy-; Petra WileyP EXAMINATION: US RETROPERITONEAL LIMITED (RENAL ONLY) CLINICAL [...] 02/03/25 1505 DD/ 1334 TD/TT: 02/03/25 1344 Aluminum Container Tester: [facility] External Provider IMG US PROCEDURES Final Result * HPV DNA, Low/High Risk (01/13/2025 4:39 PM EDT) HPV High Risk Negative Negative [facility] HPV Genotype 16 Negative Negative [facility] HPV Genotype 18 Negative Negative [facility] Comment:HPV testing performe d at [facility] (CLIA#[id number]), [address] [place] [address].Testing for HPV was performed using the Mirela [...] ORDERAB LES Final Result [facility] [address] [place] [phone] * Pap Smear (01/13/2025 4:39 PM EDT) 01/13/2025 4:39 PM EDT 01/14/2025 1:27 PM EDT Narrative [facility] - 01/21/2025 10:02 AM EDT ----- ------- Name: Ambika Mcdermott Age/Sex: 39/F : 1985 Unit#: [id number] Attend Dr: Vicente Mooney MD Re01/13/25 Status: DEP REF Location: HO.LNP Disch: ----- ------- SPEC : [id number] RECD: 01/14/25 STATUS: OLIMPIA IQBAL NUM: [id number] BILLY: 01/13/25-163 [facility] [address]: Vicente Mooney MD ENTERED: 01/14/25 SP TYPE: Pap Smr OTHR DR: Petra Wiley DIALYSIS REGISTERED NURSE ORDERED: Pap Smear Interpretation Satisfactory for evaluation. [...] and HPV testing will be performed at [facility] (CLIA #[id number]), [address] [place] [address]. Testing for HPV was performed using the [...] detected. All professional services are performed by [facility] ([address] [place] [address]; ; CLIA #[id number]). The PAP Test is a screening procedure with the inherent possibility of both false negative and false positive results. Results should be interpreted in the context of historic and current clinical findings. Reliability of the PAP Test is enhanced by performing the test on a regular repetitive basis. CONTINUED ON NEXT PAGE ----- ------- Name: Ambika Mcdermott Age/Sex: 39/F : 1985 Unit#: [id number] Attend Dr: Vicente Mooney MD Re01/13/25 Status: DEP [facility]: ----- ------- SPEC : [id number] RECD: 01/14/25 STATUS: OLIMPIA IQBAL NUM: [id number] BILLY: 01/13/25-1639 [facility] [address]: Vicente Mooney MD ENTERED: 01/14/250058 SP TYPE: Pap Smr OTHR DR: Petra Wiley ORDERED: Pap Smear Copies To: Petra Wiley [address] [place] [address] Vicente Mooney MD [facility] Women's Services [address] [place] [address] [address] [place] [phone] ----- ------- Signed (signature on file) SIOMARA Portillo ([facility]) 01/21/25 1002 ----- ------- END OF REPORT us Generic External Data Provider LAB CYTOLOGY KEN MCDONALD Final Result [facility] [address] [place] [address] [phone] * (ABNORMAL) Lipid Panel, Standard (11/26/2024 2:45 PM EDT) Triglycerides 101 <150 mg/dL [facility] Comment:Desirable Triglyceri de: less than 150 mg/dLBorderline High Triglyceride 150-199 mg/dLHigh Triglyceride: 200-499 mg/dLVery High Triglyceride: greater than or equal to 5OO mg/dL Cholesterol 208(H) <200 mg/dL [facility] Comment:Desirable Cholestero l: less than 200 mg/dLBorderline High Cholesterol: 200-239 mg/dLHigh Cholesterol: greater than 239 mg/dL LDL Cholesterol Calculated 140(H) <100 mg/dL [facility] Comment:Desirable LDL: less than 100 mg/dLNear Optimal/Above Optimal LDL: 110- 129 mg/dLBorderline High LDL: 130-159 mg/dLHigh LDL: 160-189 mg/dLVery High LDL: greater than or equal to 190 mg/dL HDL Cholesterol 48 >40 mg/dL [facility] Comment:Desirable HDL: great er than 40 mg/dL Note: This HDL assay may give artificially low results in patients with liver disease. Blood Venous blood specimen / Unknown 11/26/2024 2:45 PM EDT 11/26/2024 2:45 PM EDT us Petra Wiley [facility] BLOOD ORDERABLES Final Res ult Performing Organization Address [facility] Co de Phone Number [facility] [address] [place] [phone] * Hepatitis C Viral RNA, Quantitative, Real-Time PCR (03/18/2024 2:05 PM EDT) [facility] Hepatitis C Viral Load <15 NOT DETECTED NOT DETECTED IU/mL [facility] HCV Log PCR <1.18 NOT DETECTED NOT DETECTED Log IU/mL [facility] Comment:For additional infor felton, please refer [email or web address].OrangeSoda/faq/IZD06v7(This link is being provided for informational/educational purposes only.)THIS TEST WAS PERFORMED AT:[facility] [place] [id number] DEL CID MD Blood 03/18/2024 2:05 PM EDT 03/18/2024 2:05 PM EDT Petra Wiley [facility] BLOOD ORDERABLES Final Res ult Performing Organization Address [facility] de Phone Number [facility] [address] [place] [phone] * HIV-1/2 Antigen and Antibodies, Fourth Generation, with Reflexes (03/18/2024 2:05 PM EDT) [facility] HIV AB/AG Nonreactive Nonreactive [facility] Comment:HIV-1 p24 Ag and/or HIV-1/HIV-2 Ab not detected.A test result that is nonreactive does not exclude thepossibility of exposure to or infection with HIV-1 and/orHIV-2. Nonreactive results in this assay for individualswith prior exposure to HIV-1 and/or HIV-2 may be due toantigen and antibody levels that are below the limit ofdetection of this assay.The [email or web address] HIV Ag/Ab Combo assay result andsupplemental assay results should be interpreted inconjunction with the patient's clinical presentation,history and other laboratory results. If the results areinconsistent with clinical evidence, additional testing issuggested to confirm the result. Blood Venous blood specimen / Unknown 03/18/2024 2:05 PM EDT 03/18/2024 2:05 PM EDT us Petra Wiley DIALYSIS REGISTERED NURSE LAB BLOOD ORDERABLES Final Res ult [facility] [address] [place] [phone] [phone] from Last 3 Months or Most Recently Relevant to Health Maintenance Insurance [facility] C3 DENTAL-[facility] MEDICAID STAND ADULT Care Teams Pressing Machine Tender Relationship Specialty Start Date End Date Petra Wiley FNP [address] [place] [address] PCP - General Family Medicine 03/17/24 Willard Waters [address] [place] [address] Rheumatology 05/17/24September 11 [facility] 3rd [place] [address] Gastroenterology 05/17/24 Juan Sandra MD [address] [place] [address] Hematology and Oncology 05/17/24 Brigid Guy NP [address] [facility] [address] [place] [address] Urology 05/17/24 Vicente Mooney MD [address] [place] [address] Obstetrics and Gynecology 05/17/24 Beth Rai MD [address] [place] [address] [address] [place] [address] Neurology 05/17/24 Michell Espinoza [address] [place] [address] Drive 3rd [place] [address] Cardiology 05/17/24 Christopher Henry, RN [address] [place] [address] Registered Nurse Family Medicine 03/12/25 Radha Chatman 03/12/25 Shelia Zheng Numerical Control Machine Tool OperatorAcid Tank Cleaner 09/26/23
--- OUTSIDE RECORDS SUMMARY | 2025-04-21 18:46 | XMS_ITS ---
Author Organization [employer] Address [address] [facility] 7t [place] [address] Care Team Providers Care Seed Core Operator Name Role Phone Petra Wiley DEMAND PLANNING ANALYST Primary Care Provider Willard Waters Unavailable [phone] KesslerSeptember Unavailable Juan Sandra MD Unavailable [phone] Brigid Guy NP Unavailable Vicente Mooney MD Unavailable Beth Rai MD Unavailable Michell Espinoza Unavailable Christopher Henry RN Unavailable [phone] Radha Chatman Unavailable [facility] Status:Outreach In Progress (Enrolling) Start date:03/12/2025 Enrollment reason:ADT Feed Overview ED- Pt went to [facility] ED on 03/11/25. Please outreach for enrollment. Case Team Name Relationship Phone Radha Chatman(Responsible Staff) Continued Care and Services Coordination
--- OUTSIDE RECORDS SUMMARY | 2025-04-21 18:46 | XMS_ITS | Encounter Summary ---
Author Organization [facility] Address [address] [place] [address] Care Team Providers Care Set Up / Operator Name Role Phone Petra Wiley Primary Care Provider [phone] Encounter Details Date Type Department Care Team (Late st Contact Info) Description 04/21/2025 Telephone [facility] [address] [place], [place] [phone] Elementary Secretary: Kate Clemons, Elva Paz MD [address] [place] [address] Social History Tobacco Use Types Packs/Day Years [...] encounter Miscellaneous Notes * Telephone Encounter - Elva Clemons MD - 04/21/2025 5:11 PM EST Care coordination documented in this encounter Plan of Treatment Upcoming Encounters Date Type Department Care Team (Latest Contact Info) Description 04/28/2025 1:45 PM EST Infusion [facility] [address] [place], [place] [phone] 04/30/2025 7:15 AM EST Hospital Encounter [facility] Operating Room [address] [place] [address] Anneliese James MD [address] [place] [address] 04/30/2025 7:15 AM EST - 04/30/2025 8:30 AM EST Surgery [facility] Operating Room [address] [place] [address] Anneliese James MD [address] [place] [address] HYSTEROSCOPY MYOMECTOMY WITH MYOSURE, WITH ENDOMETRIAL SAMPLING AND/OR POLYPECTOMY, POSSIBLE DILATION AND CURETTAGE [47545 (CPT )] 06/14/2025 3:00 PM EST Office Visit [facility] D[facility]atology [facility] 4th Floor [address] [facility], [place] [phone] Elementary Secretary: Zachary Zavaleta MD [address] [place] [address] 07/12/2025 2:00 PM EST Lab [facility] ACC Draw Site Fifth Floor [address] [place] [address] 07/12/2025 3:00 PM EST Follow-Up [facility] Clinic [address] [place] [address] Shavon Roberson NP [address] [place], [place] [phone] Scheduled Procedures Name Priority Associated Diagnoses Date/Ti in HYSTEROSCOPY MYOMECTOMY WITH MYOSURE, WITH ENDOMETRIAL SAMPLING AND/OR POLYPECTOMY, POSSIBLE DILATION AND CURETTAGE Abnormal uterine bleeding 04/30/2025 7:15 AM EST documented as of this encounter Goals Goal Patient Goal Type Associated Problems Recent Progress Patient-Stated? Author Autogenera chad Goal Care Plan Autogenerated Problem No Chelsea Lindo documented as of this encounter Visit Diagnoses Not on filedocumented in this encounter Additional Health Concerns Active Problems Noted Date Diagnosed Date Autogenerated Problem 04/21/2025 documented as of this encounter Care Teams Set Up / Operator Relationship Specialty Start Date End Date Petra Wiley [address] [place] [address] PCP - General Family Medicine 03/19/24 documented as of this encounter
--- OUTSIDE RECORDS SUMMARY | 2025-04-21 18:46 | XMS_ITS | Encounter Summary ---
Author Organization [employer] Address 75 [facility] 7t [place] [address] Care Team Providers Care Micro Photographer Name Role Phone Petra Wiley INSULATION BOARD COATER OPERATOR Primary Care Provider Willard Waters Unavailable [phone] KesslerSeptember Unavailable Juan Sandra MD Unavailable [phone] Brigid Guy NP Unavailable Vicente Mooney MD Unavailable Beth Rai MD Unavailable Michell Espinoza Unavailable Christopher Henry RN Unavailable [phone] Radha Chatman Unavailable Encounter Details Date Type Department Care Team (Late st Contact Info) Description 02/01/2025 Orders Only [facility] [address] [place], [place] [phone] Provider, MD Addie Social History Tobacco Use [...] Description 05/10/2025 2:00 PM EST Clinical Support [facility] DIABETES/NUTRITION [address] [place] [address] [place] [address] documented as of this encounter Procedures Procedure [...] documented as of this encounter Care Teams Micro Photographer Relationship Specialty Start Date End Date Petra Wiley FNP [address] [place] [address] PCP - General Family Medicine 03/17/24 Willard Waters [address] [place] [address] Rheumatology 05/17/24September 11 [facility] 3rd [place] [address] Gastroenterology 05/17/24 Juan Sandra MD [address] [place] [address] Hematology and Oncology 05/17/24 Brigid Guy NP [address] [facility] [address] [facility] [address] [place] [address] Urology 05/17/24 Vicente Mooney MD [address] [place] [address] [address] [place] [address] Obstetrics and Gynecology 05/17/24 Beth Rai MD [address] [place] [address] 140 [place] [address] Neurology 05/17/24 Michell Espinoza 11 [facility] 3rd [place] [address] Cardiology 05/17/24 Christopher Henry, RITA [address] [place] [address] Registered Nurse Family Medicine 03/12/25 Radha Chatman 03/12/25 [facility] Outside Event Sales SpecialistWeaving Teacher 09/26/23 documented as of this encounter
--- OUTSIDE RECORDS SUMMARY | 2025-04-21 18:46 | XMS_ITS | Encounter Summary ---
Author Organization [employer] Address 75 [facility] 7t [place] [address] Care Team Providers Care Administrative Resources Associate Name Role Phone Jennie Murray MD Primary Care Provider Petra Wiley Primary Care Provider Willard Waters Unavailable [phone] Sumaya Kessler Unavailable Juan Sandra MD Unavailable [phone] Brigid Guy NP Unavailable Vicente Mooney MD Unavailable Beth Rai MD Unavailable Michell Espinoza Unavailable Christopher Henry RN Unavailable [phone] Radha Chatman Unavailable Reason for Visit [...] (Late st Contact Info) Description 08/21/2022 Telephone [facility] [address] [place] [address] Venkat Barreto DDS [address] [place], [place] [phone] Appointment (Ambika Anaya 1985 Patient called in [...] Lucy Bazzi - 08/21/2022 10:19 AM EST Ambikamarlene Anaya VIDHI 1985 Patient called in crying and stated [...] Description 05/10/2025 2:00 PM EST Clinical Support [facility] DIABETES/NUTRITION [address] [place] [address] [place] [address] documented as of this encounter Visit Diagnoses Not on filedocumented in this encounter Additional Health Concerns Assessment Noted Time PHQ-9 Depression Total Score: 0 07/04/19 23 3:01 PM EST documented as of this encounter Care Teams Administrative Resources Associate Relationship Specialty Start Date End Date Jennie Murray MD [address] [place] [address] PCP - General Family Medicine 06/23/13 03/16/24 Petra Wiley FNP [address] [place] [address] PCP - General Family Medicine 03/17/24 Willard Waters [address] [place] [address] Rheumatology 05/17/24 Victoria Smuaya 11 [facility] 3rd [place] [address] Gastroenterology 05/17/24 Juan Sandra MD [address] [place] [address] Hematology and Oncology 05/17/24 Brigid Guy NP [address] [place] [address] Urology 05/17/24 Vicente Mooney MD [address] [place] [address] [address] [place] [address] Obstetrics and Gynecology 05/17/24 Beth Rai MD [address] [place] [address] 140 [place] [address] Neurology 05/17/24 Michell Espinoza 11 [facility] 3rd [place] [address] Cardiology 05/17/24 Christopher Henry RN [address] [place] [address] Registered Nurse Family Medicine 03/12/25 Radha Chatman 03/12/25 Shelia Zheng EnamelerDirector Of Marketing Communications 09/26/23 documented as of this encounter
--- OUTSIDE RECORDS SUMMARY | 2025-04-21 18:46 | XMS_ITS | Encounter Summary ---
Author Organization [facility] Address [address] [place] [address] Care Team Providers Care Excellence Leader Name Role Phone Petra Wiley Primary Care Provider [phone] Encounter Details Date Type Department Care Team (Late st Contact Info) Description 03/18/2025 myChart Message [facility] Women[facility] Care [address] [place] [address] Strap Folding Machine Operator: Shasha Campos PA [address] [place] [address] Worries about medication Social History Tobacco Use Types Packs/Day [...] encounter Miscellaneous Notes * Telephone Encounter - Nakia Andrade MD - 03/22/2025 8:02 AM EDT Orders only - Provera refill documented in this encounter Plan of Treatment Upcoming Encounters Date Type Department Care Team (Latest Contact Info) Description 04/28/2025 1:45 PM EST Infusion [facility] Building Infusion Clinic [address] [place] [address] 04/30/2025 7:15 AM EST Hospital Encounter [facility] Operating Room [address] [place] [address] Anneliese James MD [address] [place] [address] 04/30/2025 7:15 AM EST - 04/30/2025 8:30 AM EST Surgery [facility] Operating Room [address] [place] [address] Anneliese James MD [address] [place] [address] HYSTEROSCOPY MYOMECTOMY WITH MYOSURE, WITH ENDOMETRIAL SAMPLING AND/OR POLYPECTOMY, POSSIBLE DILATION AND CURETTAGE [68434 (CPT )] 06/14/2025 3:00 PM EST Office Visit [facility] Dermatology Clinic 4th Floor 281 [facility], Fourth [place] [phone] Strap Folding Machine Operator: Zachary Zavaleta MD [address] [place] [address] 07/12/2025 2:00 PM EST Lab [facility] ACC Draw Site Fifth Floor [address] [place] [address] 07/12/2025 3:00 PM EST Follow-Up [facility] Clinic [address] [place] [address] Shavon Roberson NP [address] [place] [address] Scheduled Procedures Name Priority Associated Diagnoses Date/Ti dc HYSTEROSCOPY MYOMECTOMY WITH MYOSURE, WITH ENDOMETRIAL SAMPLING AND/OR POLYPECTOMY, POSSIBLE DILATION AND CURETTAGE Abnormal uterine bleeding 04/30/2025 7:15 AM EST documented as of this encounter Visit Diagnoses Not on filedocumented in this encounter Care Teams Excellence Leader Relationship Specialty Start Date End Date Petra Wiley [address] [place] [phone] PCP - General Family Medicine 03/19/24 documented as of this encounter
--- OUTSIDE RECORDS SUMMARY | 2025-04-21 18:46 | XMS_ITS | Encounter Summary ---
Author Organization [employer] Address [address] [facility] [address] 7t [place] [address] Care Team Providers Care Electrician Helper Automotive Name Role Phone Jennie Murray MD Primary Care Provider [phone] Petra Wiley Primary Care Provider [phone] Willard Waters Unavailable [phone] Sumaya Kessler Unavailable Juan Sandra MD Unavailable [phone] Brigid Guy NP Unavailable Vicente Mooney MD Unavailable Beth Rai MD Unavailable Michell Espinoza Unavailable Christopher Henry RN Unavailable [phone] Radha Chatman Unavailable Reason for Visit * Reason Onset Date Comments Appointment Request 12/25/2023 Encounter Details Date Type Department Care Team (Late st Contact Info) Description 12/25/2023 Telephone [facility] MEDICINE [address] [place] [address] Jennie Murray MD [address] [place], [place] [phone] Appointment Request Social History Tobacco Use Types [...] 12/25/2023 1:07 PM EDT Tc from Patrice, child care centre manager with [facility], calling to schedule appt for pt. Pt is awaiting transfer pt appt with Dr. Wiley in which publications writer attempted to schedule but found no availability. Please contact Patrice at [phone]. documented in this encounter Plan of Treatment Upcoming Encounters Date Type Department Care Team (Late st Contact Info) Description 05/10/2025 2:00 PM EST Clinical Support [facility] DIABETES/NUTRITION [address] [place], [place] [phone] Tamanna Mcintyre RD [address] [place], [place] [phone] documented as of this encounter Visit Diagnoses Not on filedocumented in this encounter Additional Health Concerns Assessment Noted Time PHQ-9 Depression Total Score: 0 07/04/19 23 3:01 PM EST documented as of this encounter Care Teams Electrician Helper Automotive Relationship Specialty Start Date End Date Jennie Murray MD [address] [place] [address] PCP - General Family Medicine 06/23/13 03/16/24 Petra Wiley FNP [address] [place] [address] PCP - General Family Medicine 03/17/24 Willard Waters [address] [place] [address] Rheumatology 05/17/24 Victoria Sumaya [address] [facility] 3rd [place] [address] Gastroenterology 05/17/24 Juan Sandra MD [address] [place] [address] Hematology and Oncology 05/17/24 Brigid Guy NP [address] [place] [address] Urology 05/17/24 Vciente Mooney MD [address] [place] [address] [address] [place] [address] Obstetrics and Gynecology 05/17/24 Beth Rai MD [address] [place] [address] 140 [place] [address] Neurology 05/17/24 Michell Espinoza [address] [facility] 3rd [place] [address] Cardiology 05/17/24 Christopher Henry RN [address] [place] [address] Registered Nurse Family Medicine 03/12/25 Radha Chatman 03/12/25 Shelia Zheng Tubular Splitting Machine TenderTrimming Department Blocker 09/26/23 documented as of this encounter
--- OUTSIDE RECORDS SUMMARY | 2025-04-21 18:46 | XMS_ITS | Encounter Summary ---
Author Organization [employer] Address 75 [facility] 7t [place] [address] Care Team Providers Care Mortgage Coordinator Name Role Phone Petra Wiley Primary Care Provider Willard Waters Unavailable [phone] VictoriaSeptember Unavailable Juan Sandra MD Unavailable [phone] Brigid Guy NP Unavailable Vicente Mooney MD Unavailable Beth Rai MD Unavailable Michell Espinoza Unavailable Christopher Henry RN Unavailable [phone] Radha Chatman Unavailable Reason for Visit * Reason Onset Date Comments Appointment Request 03/19/2025 Encounter Details Date Type Department Care Team ([facility] st Contact Info) Description 03/19/2025 Telephone [facility] ED MED & PEDS [address] [place], [place] [phone] Petra Wiley FNP 505 [place], [place] [phone] Appointment Request Social History Tobacco Use Types [...] encounter Miscellaneous Notes * Telephone Encounter - Arthur Garcia - 03/19/2025 3:14 PM EDT Tc from pt requesting to r/s sick on site that was scheduled for 03/22. Contact pt at [phone] documented in this encounter Plan of Treatment Upcoming Encounters Date Type Department Care Team (Late st Contact Info) Description 05/10/2025 2:00 PM EST Clinical Support [facility]ETES/NUTRITION [address] [place], [place] [phone] Tamanna Mcintyre RD [address] [place], [place] [phone] documented as of this encounter Visit Diagnoses Not on filedocumented in this encounter Additional Health Concerns Assessment Noted Time PHQ-9 Depression Total Score: 8 11/26/19 25 5:52 PM EDT documented as of this encounter Care Teams Mortgage Coordinator Relationship Specialty Start Date End Date Petra Wiley FNP [address] [place] [address] PCP - General Family Medicine 03/17/24 Willard Waters [address] [place] [address] Rheumatology 05/17/24 VictoriaSeptember 11 [facility] 3rd [place] [address] Gastroenterology 05/17/24 Juan Sandra MD [address] [place] [address] Hematology and Oncology 05/17/24 Brigid Guy NP 10 [facility] [address] [place] [address] Urology 05/17/24 Vicente Mooney MD [address] [place] [address] [address] [place] [address] Obstetrics and Gynecology 05/17/24 Beth Rai MD [address] [place] [address] 140 [place] [address] Neurology 05/17/24 Michell Espinoza 11 [facility] 3rd [place] [address] Cardiology 05/17/24 Christopher Henry, RITA [address] [place] [address] Registered Nurse Family Medicine 03/12/25 Radha Chatman 03/12/25 Shelia Zheng Radio RepairerPersonnel Generalist Manager 09/26/23 documented as of this encounter
--- OUTSIDE RECORDS SUMMARY | 2025-04-21 18:46 | XMS_ITS | Clinical Summary ---
Author Organization [facility] Address 399 [facility] [address] [place] [address] Phone Care Team Providers Care Assembly Instructions Writer Name Role Phone Karolina Murray MD Primary Care Provider [phone] Allergies Active Allergy Reactions Criticality Noted Date [...] (#1) 2025 6, 03/22/2015, 03/06/2013 COVID-19 VACCINE (2024-2 6 season) 2025 Adult Td,Tdap Booster 10/13/2025 10/14/2015 [...] [facility] [place] [address] [facility] R[place] [facility] [place] [facility] [place] [phone] [facility] [place] [address] [facility] Care Teams Assembly Instructions Writer Relationship Specialty Start Date End Date Karolina Murray MD [address] [place], [place] [address] [phone] PCP - General Internal Medicine 09/12/21 Additional Source Comments The information contained in this document represents components of the legal health record. It is not the complete legal health record.[facility]
--- OUTSIDE RECORDS SUMMARY | 2025-04-21 18:46 | XMS_ITS | Encounter Summary ---
Author Organization [facility] Address [address] [place] [address] Care Team Providers Care Mining Manager Name Role Phone Petra Wiley Primary Care Provider [phone] Encounter Details Date Type Department Care Team (Latest Contact Info) Description 06/26/2024 Transcribe Orders [facility] Physician Referral Services [address] [place] [address] Petra Wiley 230 [place], [place] [phone] Subcutaneous mass of right upper extremity (Primary [...] Info) Description 04/28/2025 1:45 PM EST Infusion [facility] Building Infusion Clinic [address] [place] [address] 04/30/2025 7:15 AM EST Hospital Encounter [facility] Operating Room [address] [place] [address] Anneliese James MD 33 [place] [address] 04/30/2025 7:15 AM EST - 04/30/2025 8:30 AM EST Surgery [facility] Operating Room [address] [place] [address] Anneliese James MD 33 [place] [address] HYSTEROSCOPY MYOMECTOMY WITH MYOSURE, WITH ENDOMETRIAL SAMPLING AND/OR POLYPECTOMY, POSSIBLE DILATION AND CURETTAGE [02684 (CPT )] 06/14/2025 3:00 PM EST Office Visit [facility] Dermatology Clinic 4th Floor [address] [facility], [place] [phone] Cage/Vault Supervisor: Zachary Zavaleta MD 55 [place] [address] 07/12/2025 2:00 PM EST Lab [facility] ACC Draw Site Fifth Floor 55 [place] [address] 07/12/2025 3:00 PM EST Follow-Up [facility] [place] BMT Clinic 55 [place] [address] Shavon Roberson NP [address] [place] [address] Scheduled Procedures Name Priority Associated Diagnoses Date/Ti id HYSTEROSCOPY MYOMECTOMY WITH MYOSURE, WITH ENDOMETRIAL SAMPLING AND/OR POLYPECTOMY, POSSIBLE DILATION AND CURETTAGE Abnormal uterine bleeding 04/30/2025 7:15 AM EST documented as of this encounter Visit Diagnoses Diagnosis Subcutaneous mass of right upper extremity- Primary Subcutaneous mass of abdominal wall Abnormal uterine bleeding Unspecified disorder of menstruation and other abnormal bleeding from female genital tract documented in this encounter Care Teams Mining Manager Relationship Specialty Start Date End Date Petra Wiley [address] [place] [address] PCP - General Family Medicine 03/19/24 documented as of this encounter
--- OUTSIDE RECORDS SUMMARY | 2025-04-21 18:46 | XMS_ITS | Encounter Summary ---
Author Organization [employer] Address 75 [facility] 7t [place] [address] Care Team Providers Care Optical Instrument Specialist Name Role Phone Jennie Murray MD Primary Care Provider Petra Wiley Primary Care Provider Willard Waters Unavailable [phone] Sumaya Kessler Unavailable Juan Sandra MD Unavailable Brigid Guy NP Unavailable Vicente Mooney MD Unavailable Beth Rai MD Unavailable [phone] Michell Espinoza Unavailable Christopher Henry RN Unavailable [phone] Radha Chatman Unavailable Encounter Details Date Type Department Care Team (Latest Contact Info) Description 09/03/2018 Abstract [facility] CONVERSIONS Dental, Provider, DDS Social [...] Description 05/10/2025 2:00 PM EST Clinical Support [facility] DIABETES/NUTRITION [address] [place], [place] [phone] Tamanna Mcintyre, RD 230 [place] [address] documented as of this encounter Visit Diagnoses Not on filedocumented in this encounter Care Teams Optical Instrument Specialist Relationship Specialty Start Date End Date Jennie Murray MD 230 [place] [address] PCP - General Family Medicine 06/23/13 03/16/24 Petra Wiley FNP [address] [place] [address] PCP - General Family Medicine 03/17/24 Willard Waters [address] [place] [address] Rheumatology 05/17/24 Sumaya Kessler [address] [address] Gastroenterology 05/17/24 Juan Sandra MD [address] [place] [address] Hematology and Oncology 05/17/24 Brigid Guy NP 10 [facility] [address] [place] [address] Urology 05/17/24 Vicente Mooney MD [address] [place] [address] [address] [place] [address] Obstetrics and Gynecology 05/17/24 Beth Rai MD [address] [place] [address] 140 [place] [address] Neurology 05/17/24 Michell Espinoza 11 [facility] 3rd [place] [address] Cardiology 05/17/24 Christopher Henry, RITA [address] [place] [address] Registered Nurse Family Medicine 03/12/25 Radha Chatman 03/12/25 Shelia Zheng Drying Equipment OperatorWarp Hauler 09/26/23 documented as of this encounter
--- OUTSIDE RECORDS SUMMARY | 2025-04-21 18:46 | XMS_ITS | Encounter Summary ---
Author Organization [facility] Address [address] [place] [address] Care Team Providers Care Newspaper Clipper Name Role Phone Petra Wiley Primary Care Provider [phone] Encounter Details Date Type Department Care Team (Late st Contact Info) Description 04/01/2025 myChart Message [facility] Women's Care [address] [place] [address] Stope Miner: Brianda Sim RN Medication Social History Tobacco Use Types Packs/Day Years [...] Info) Description 04/28/2025 1:45 PM EST Infusion [facility] Building Infusion Clinic [address] [place] [address] 04/30/2025 7:15 AM EST Hospital Encounter [facility] Operating Room [address] [place] [address] Anneliese James MD [address] [place] [address] 04/30/2025 7:15 AM EST - 04/30/2025 8:30 AM EST Surgery [facility] Operating Room [address] [place] [address] Anneliese James MD 33 [place] [address] HYSTEROSCOPY MYOMECTOMY WITH MYOSURE, WITH ENDOMETRIAL SAMPLING AND/OR POLYPECTOMY, POSSIBLE DILATION AND CURETTAGE [13622 (CPT )] 06/14/2025 3:00 PM EST Office Visit [facility] Dermatology Clinic 4th Floor 281 [facility], [place] [phone] Stope Miner: Zachary Zavaleta MD 55 [place] [address] 07/12/2025 2:00 PM EST Lab [facility] ACC Draw Site Fifth Floor 55 [place] [address] 07/12/2025 3:00 PM EST Follow-Up [facility] BMT Clinic 55 [place] [address] Shavon Roberson NP 55 [place] [address] Scheduled Procedures Name Priority Associated Diagnoses Date/Ti wa HYSTEROSCOPY MYOMECTOMY WITH MYOSURE, WITH ENDOMETRIAL SAMPLING AND/OR POLYPECTOMY, POSSIBLE DILATION AND CURETTAGE Abnormal uterine bleeding 04/30/2025 7:15 AM EST documented as of this encounter Visit Diagnoses Not on filedocumented in this encounter Care Teams Newspaper Clipper Relationship Specialty Start Date End Date Petra Wiley [address] [place] [address] PCP - General Family Medicine 03/19/24 documented as of this encounter
--- OUTSIDE RECORDS SUMMARY | 2025-04-21 18:46 | XMS_ITS | Encounter Summary ---
Author Organization [employer] Address 75 [facility] 7t [place] [address] Care Team Providers Care Compressor Operator Adjuster Name Role Phone Petra Wiley CLAMP FORKLIFT OPERATOR Primary Care Provider [phone] Willard Waters Unavailable [phone] KesslerSeptember Unavailable Juan Sandra MD Unavailable [phone] Brigid Guy NP Unavailable Vicente Mooney MD Unavailable Beth Rai MD Unavailable Michell Espinoza Unavailable Christopher Henry RN Unavailable [phone] Radha Chatman Unavailable Reason for Visit * Reason Comments Med Refill Encounter Details Date Type Department Care Team (Late st Contact Info) Description 12/03/2024 Refill [facility] CHC MED & PEDS [address] [place], [place] [phone] Petra Wiley FNP 505 [place], [place] [phone] Fibromyalgia Social History Tobacco Use Types Packs/Day [...] Description 05/10/2025 2:00 PM EST Clinical Support [facility] DIABETES/NUTRITION 230 [place] [address] [place] [address] documented as of this encounter Visit Diagnoses Diagnosis Fibromyalgia Unspecified myalgia and myositis documented in this encounter Additional Health Concerns Assessment Noted Time PHQ-9 Depression Total Score: 8 11/26/19 25 5:52 PM EDT documented as of this encounter Care Teams Compressor Operator Adjuster Relationship Specialty Start Date End Date Petra Wiley FNP 230 [place] [address] PCP - General Family Medicine 03/17/24 Willard Waters [address] [place] [address] Rheumatology 05/17/24 Sumaya Kessler 11 [facility] 3rd [place] [address] Gastroenterology 05/17/24 Juan Sandra MD [address] [place] [address] Hematology and Oncology 05/17/24 Brigid Guy NP [address] [facility] [address] [place] [address] Urology 05/17/24 Vicente Mooney MD [address] [place] [address] [address] [place] [address] Obstetrics and Gynecology 05/17/24 Beth Rai MD [address] [place] [address] [place] [address] Neurology 05/17/24 Michell Espinoza 11 [facility] 3rd [place] [address] Cardiology 05/17/24 Christopher Henry, RITA 505 [place] [address] Registered Nurse Family Medicine 03/12/25 Radha Chatman 03/12/25 Shelia Zheng Mental Health Social WorkerTrekking Guide 09/26/23 documented as of this encounter
--- OUTSIDE RECORDS SUMMARY | 2025-04-21 18:46 | XMS_ITS | Encounter Summary ---
Author Organization [employer] Address 75 [facility] 7t [place] [address] Care Team Providers Care Call Center Trainer Name Role Phone Jennie Murray MD Primary Care Provider Petra Wiley Primary Care Provider Willard Waters Unavailable [phone] Sumaya Kessler Unavailable Juan Sandra MD Unavailable [phone] Brigid Guy NP Unavailable Vicente Mooney MD Unavailable Beth Rai MD Unavailable Michell Espinoza Unavailable Christopher Henry RN Unavailable [phone] Radha Chatman Unavailable Encounter Details Date Type Department Care Team (Latest Contact Info) Description 09/12/2020 Abstract [facility] CONVERSIONS Dental, Provider, DDS Social History [...] Care Team ( st Contact Info) Description 05/10/2025 2:00 PM EST Clinical Support [facility] DIABETES/NUTRITION 230 [place] [address] Tamanna Mcintyre, RD 230 [place] [address] documented as of this encounter Visit Diagnoses Not on filedocumented in this encounter Care Teams Call Center Trainer Relationship Specialty Start Date End Date Jennie Murray MD 230 [place] [address] PCP - General Family Medicine 06/23/13 03/16/24 Petra Wiley FNP 230 [place] [address] PCP - General Family Medicine 03/17/24 Willard Waters [address] [place] [address] Rheumatology 05/17/24 Sumaya Kessler [address] [address] Gastroenterology 05/17/24 Juan Sandra MD [address] [place] [address] Hematology and Oncology 05/17/24 Brigid Guy NP 10 [facility] [address] [place] [address] Urology 05/17/24 Vicente Mooney MD [address] [place] [address] [address] [place] [address] Obstetrics and Gynecology 05/17/24 Beth Rai MD [address] [place] [address] 140 [place] [address] Neurology 05/17/24 Michell Espinoza 11 [facility] 3rd [place] [address] Cardiology 05/17/24 Christopher Henry, RITA [address] [facility] [place] [address] Registered Nurse Family Medicine 03/12/25 Radha Chatman 03/12/25 Shelia Zheng ToolsmithTeletype Mechanic 09/26/23 documented as of this encounter
--- OUTSIDE RECORDS SUMMARY | 2025-04-21 18:46 | XMS_ITS ---
Author Organization [email or web address] Address 75 [facility] 7t [place] [address] Care Team Providers Care Project Manager Name Role Phone Petra Wiley FURNITURE ASSOCIATE Primary Care Provider Willard Waters Unavailable [phone] September Unavailable Juan Sandra MD Unavailable [phone] Brigid Guy NP Unavailable Vicente Mooney MD Unavailable Beth Rai MD Unavailable Michell Espinoza Unavailable Christopher Henry RN Unavailable [phone] Radha Chatman Unavailable CM Complex Status:Outreach In Progress (Enrolling) Start date:03/12/2025 Enrollment reason:ADT Feed Overview ED- Pt went [facility] on 03/11[facility]25. Case Team Name Relationship Phone Christopher Henry RN(Responsible Staff) Registered Nurse [phone] Continued Care and Services Coordination
--- OUTSIDE RECORDS SUMMARY | 2025-04-21 18:46 | XMS_ITS | Encounter Summary ---
Author Organization [employer] Address 75 [facility] 7t [place] [address] Care Team Providers Care Timber Management Assistant Name Role Phone Petra Wiley FRONT DESK WORKER Primary Care Provider [phone] Willard Waters Unavailable [phone] KesslerSeptember Unavailable Juan Sandra MD Unavailable [phone] Brigid Guy NP Unavailable Vicente Mooney MD Unavailable Beth Rai MD Unavailable Michell Espinoza Unavailable Christopher Henry RN Unavailable [phone] Radha Chatman Unavailable Reason for Visit * Reason Comments Med Refill Encounter Details Date Type Department Care Team (Late st Contact Info) Description 04/18/2025 Refill [facility] CHC MED & PEDS 505 [place], [place] [phone] Jackie Bazzi MD 505 [place], [place] [phone] Fibromyalgia Social History Tobacco Use Types Packs/Day [...] Description 05/10/2025 2:00 PM EST Clinical Support [facility] DIABETES/NUTRITION 230 [place] [address] [place] [address] documented as of this encounter Visit Diagnoses Diagnosis Fibromyalgia Unspecified myalgia and myositis documented in this encounter Additional Health Concerns Assessment Noted Time PHQ-9 Depression Total Score: 8 11/26/19 25 5:52 PM EDT documented as of this encounter Care Teams Timber Management Assistant Relationship Specialty Start Date End Date Petra Wiley FNP 230 [place] [address] PCP - General Family Medicine 03/17/24 Willard Waters [address] [place] [address] Rheumatology 05/17/24 Sumaya Kessler 11 [facility] 3rd [place] [address] Gastroenterology 05/17/24 Juan Sandra MD [address] [place] [address] Hematology and Oncology 05/17/24 Brigid Guy NP [address] [place] [address] Urology 05/17/24 Vicente Mooney MD [address] [place] [address] [address] [place] [address] Obstetrics and Gynecology 05/17/24 Beth Rai MD [address] [place] [address] Neurology 05/17/24 Michell Espinoza 11 [facility] 3rd [place] [address] Cardiology 05/17/24 Christopher Henry, RITA [address] [place] [address] Registered Nurse Family Medicine 03/12/25 Radha Chatman 03/12/25 Shelia Zheng Eyeglass FitterCaul Puller 09/26/23 documented as of this encounter
--- OUTSIDE RECORDS SUMMARY | 2025-04-21 18:47 | XMS_ITS | Encounter Summary ---
Author Organization [employer] Address [address] [facility] [address] 7t [place] [address] Care Team Providers Care Copy Chief Name Role Phone Petra Wiley SHELTER DIRECTOR Primary Care Provider Willard Waters Unavailable [phone] VictoriaSeptember Unavailable Juan Sandra MD Unavailable [phone] Brigid Guy NP Unavailable Vicente Mooney MD Unavailable Beth Rai MD Unavailable Michell Espinoza Unavailable Christopher Henry RN Unavailable [phone] Radha Chatman Unavailable Encounter Details Date Type Department Care Team (Late st Contact Info) Description 05/20/2024 Orders Only [facility] MED & PEDS 505 [place], [place] [phone] Provider, MD Addie Social History Tobacco Use [...] Description 05/10/2025 2:00 PM EST Clinical Support [facility] DIABETES/NUTRITION 230 [place] [address] [place] [address] documented as of this encounter Procedures Procedure [...] documented as of this encounter Care Teams Copy Chief Relationship Specialty Start Date End Date Petra Wiley FNP 230 [place] [address] PCP - General Family Medicine 03/17/24 Willard Waters [address] Rheumatology 05/17/24 VictoriaSeptember 11 [facility] 3rd [place] [address] Gastroenterology 05/17/24 Juan Sandra MD [address] [place] [address] Hematology and Oncology 05/17/24 Brigid Guy NP 10 [facility] [address] [place] [address] Urology 05/17/24 Vicente Mooney MD [address] [place] [address] [address] [place] [address] Obstetrics and Gynecology 05/17/24 Beth Rai MD [address] [place] [address] 140 [place] [address] Neurology 05/17/24 Michell Espinoza 11 [facility] 3rd [place] [address] Cardiology 05/17/24 Christopher Henry, RITA 505 [place] [address] Registered Nurse Family Medicine 03/12/25 Radha Chatman 03/12/25 Shelia Zheng Sustainability CoordinatorBusiness Change Manager 09/26/23 documented as of this encounter
--- OUTSIDE RECORDS SUMMARY | 2025-04-21 18:47 | XMS_ITS | Encounter Summary ---
Author Organization [employer] Address 75 [facility] 7t [place] [address] Care Team Providers Care Assistant Branch Manager Name Role Phone Jennie Murray MD Primary Care Provider [phone] Petra Wiley Primary Care Provider Willard Waters Unavailable [phone] Victoria Sumaya Unavailable Juan Sandra MD Unavailable [phone] Brigid Guy NP Unavailable Vicente Mooney MD Unavailable Beth Rai MD Unavailable [phone] Michell Espinoza Unavailable Christopher Henry RN Unavailable [phone] Radha Chatman Unavailable Encounter Details Date Type Department Care Team (Late st Contact Info) Description 07/26/2022 Orders Only [facility] MEDICINE 230 [place] [address] Nelson Medrano MD [address] [place] [address] [id number] Chronic idiopathic constipation (Primary Dx) Social History [...] 05/10/2025 2:00 PM EST Clinical Support [facility] DIABETES/NUTRITION 230 [place] [address] [place] [address] documented as of this encounter Visit Diagnoses Diagnosis Chronic idiopathic constipation- Primary Unspecified constipation documented in this encounter Additional Health Concerns Assessment Noted Time PHQ-9 Depression Total Score: 0 07/04/19 23 3:01 PM EST documented as of this encounter Care Teams Assistant Branch Manager Relationship Specialty Start Date End Date Jennie Murray MD 230 [place] [address] PCP - General Family Medicine 06/23/13 03/16/24 Petra Wiley FNP 230 [place] [address] PCP - General Family Medicine 03/17/24 Willard Waters [address] [place] [address] Rheumatology 05/17/24 Victoria Sumaya [address] [place] [address] Drive 3rd [place] [address] Gastroenterology 05/17/24 Juan Sandra MD [address] [place] [address] Hematology and Oncology 05/17/24 Brigid Guy NP [address] [place] [address] Urology 05/17/24 Vicente Mooney MD [address] [place] [address] [address] [place] [address] Obstetrics and Gynecology 05/17/24 Beth Rai MD [address] [facility] [address] [place] [address] Neurology 05/17/24 Michell Espinoza [address] 3rd [place] [address] Cardiology 05/17/24 Christopher Henry, RITA 505 [place] [address] Registered Nurse Family Medicine 03/12/25 Radha Chatman 03/12/25 Shelia Zheng Brand MgrPhysical Sciences Instructor 09/26/23 documented as of this encounter
--- OUTSIDE RECORDS SUMMARY | 2025-04-21 18:47 | XMS_ITS | Encounter Summary ---
Author Organization [employer] Address [address] [facility] 7t [place] [address] Care Team Providers Care Prn Occupational Therapist Name Role Phone Jennie Murray MD Primary Care Provider [phone] Petra Wiley Primary Care Provider [phone] Willard Waters Unavailable [phone] Sumaya Kessler Unavailable Juan Sandra MD Unavailable [phone] Brigid Guy NP Unavailable Vicente Mooney MD Unavailable Beth Rai MD Unavailable Michell Espinoza Unavailable Christopher Henry RN Unavailable [phone] Radha Chatman Unavailable Encounter Details Date Type Department Care Team (Late st Contact Info) Description 05/25/2022 Abstract [facility] ADULT DENTAL [address] [place] [address] Dental, Provider, DDS Social History Tobacco Use [...] 2:00 PM EST Clinical Support [facility] DIABETES/NUTRITION [address] [place] [address] [place] [address] documented as of this encounter Procedures Procedure [...] on filedocumented in this encounter Care Teams Prn Occupational Therapist Relationship Specialty Start Date End Date Jennie Murray MD [address] [place] [address] PCP - General Family Medicine 06/23/13 03/16/24 Petra Wiley FNP [address] [place] [address] PCP - General Family Medicine 03/17/24 Willard Waters [address] Rheumatology 05/17/24 Sumaya Kessler [address] [facility] 3rd [place] [address] Gastroenterology 05/17/24 Juan Sandra MD [address] [place] [address] Hematology and Oncology 05/17/24 Brigid Guy NP [address] [place] [address] Urology 05/17/24 Vicente Mooney MD [address] [place] [address] [address] [place] [address] Obstetrics and Gynecology 05/17/24 Beth Rai MD [address] [place] [address] Neurology 05/17/24 Michell Espinoza 11 [facility] 3rd [place] [address] Cardiology 05/17/24 Christopher Henry, RITA [address] [place] [address] Registered Nurse Family Medicine 03/12/25 Radha Chatman 03/12/25 Shelia Zheng Rn [employer] Support Analyst 09/26/23 documented as of this encounter
--- OUTSIDE RECORDS SUMMARY | 2025-04-21 18:47 | XMS_ITS | Encounter Summary ---
Author Organization [employer] Address [address] [facility] 7t [place] [address] Care Team Providers Care Unit Director Name Role Phone Jennie Murray MD Primary Care Provider [phone] Petra Wiley Primary Care Provider Willard Waters Unavailable [phone] Sumaya Kessler Unavailable Juan Sandra MD Unavailable [phone] Brigid Guy NP Unavailable Vicente Mooney MD Unavailable Beth Rai MD Unavailable Michell Espinoza Unavailable Christopher Henry RN Unavailable [phone] Radha Chatman Unavailable Encounter Details Date Type Department Care Team (Late st Contact Info) Description 05/18/2022 Orders Only [facility] MEDICINE [address] [place] [address] Jennie Murray MD [address] [place], [place] [id number] Acute foot pain, unspecified laterality (Primary Dx) [...] [facility] [address] [place] [address] Tamanna Mcintyre, ANGELINA [address] [place] [address] documented as of this encounter Visit Diagnoses Diagnosis Acute foot pain, unspecified laterality- Primary documented in this encounter Care Teams Unit Director Relationship Specialty Start Date End Date Jennie Murray MD [address] [place] [address] PCP - General Family Medicine 06/23/13 03/16/24 Petra Wiley FNP [address] [place] [address] PCP - General Family Medicine 03/17/24 Willard Waters [address] [place] [address] Rheumatology 05/17/24 KesslerSeptember [address] [facility] [address] 3rd [place] [address] Gastroenterology 05/17/24 Juan Sandra MD [address] [place] [address] Hematology and Oncology 05/17/24 Brigid Guy NP [address] [facility] [address] [place] [address] Urology 05/17/24 Vicente Mooney MD [address] [place] [address] [address] [place] [address] Obstetrics and Gynecology 05/17/24 Beth Rai MD [address] [place] [address] [address] [place] [address] Neurology 05/17/24 Michell Espinoza [address] [place] [address] 3rd [place] [address] Cardiology 05/17/24 Christopher Henry, RITA [address] [place] [address] Registered Nurse Family Medicine 03/12/25 Radha Chatman 03/12/25 Shelia Zheng [employer]er 09/26/23 documented as of this encounter
== END 2025-04-21 17:28 | disposition home or self-care (01) ==
LOC: HO.HGI 15:56
PROVIDERS: PCP Registered Nurse; Visit Provider Nurse Practitioner
DX: K31.84 Gastroparesis (principal); K21.9 Gastro-esophageal reflux disease without esophagitis; K58.1 Irritable bowel syndrome with constipation; K59.00 Constipation, unspecified; J38.7 Other diseases of larynx
CPT/HCPCS: 99214

== ENCOUNTER → 2025-04-21 15:56 | Outpatient (BNVA) | payer MEDICAID, SELFPAY | PROVIDERS: PCP Registered Nurse; Visit Provider Nurse Practitioner | DX: K59.00 Constipation, unspecified (principal); K21.9 Gastro-esophageal reflux disease without esophagitis; K58.1 Irritable bowel syndrome with constipation; K31.84 Gastroparesis; Z79.899 Other long term (current) drug therapy | CPT/HCPCS: 99212 ==